=== PATIENT | female | born 1940 | race Caucasian/White ===

== ENCOUNTER 2021-11-30 08:15 | Outpatient (CLI) | payer MEDICARE, OTHER, SELFPAY ==
[2021-11-30 10:22] LABS: Chloride* 97 mmol/L (96-114)
[2021-11-30 10:23] LABS: Potassium* 3.6 mmol/L (3.6-5.1); Sodium* 138 mmol/L (135-149)
[2021-11-30 10:25] LABS: Carbon Dioxide* 33 mmol/L (20-32); Cholesterol* 201 mg/dL (90-199); Creatinine* 1.1 mg/dL (0.5-1.5); Estimated Glomerular Filt Rate 51 ml/min
[2021-11-30 10:26] LABS: Blood Urea Nitrogen* 17 mg/dL (7-30); Calcium* 10.8 mg/dL (8.4-10.6); Glucose* 112 mg/dL (60-115); HDL Cholesterol* 50 mg/dL (>=50); LDL Cholesterol Calculated 130 mg/dL (<100); Triglycerides* 107 mg/dL (40-149)
[2021-11-30 10:42] LABS: Vitamin D 25 Hydroxy* 86 ng/mL (30-80)
== END 2021-11-30 08:16 | disposition home or self-care (01) ==
PROVIDERS: Visit Provider Family Medicine
DX: Z00.00 Encounter for general adult medical examination without abnormal findings (principal); I10 Essential (primary) hypertension; M85.80 Other specified disorders of bone density and structure, unspecified site; E53.9 Vitamin B deficiency, unspecified; F41.8 Other specified anxiety disorders
CPT/HCPCS: 80048; 80061; 82306

== ENCOUNTER 2021-12-06 09:44 | Outpatient (CLI) | payer MEDICARE, OTHER, SELFPAY ==
--- OUTSIDE RECORDS SUMMARY | 2021-12-06 10:29 | XMS_ITS | Encounter Summary ---
:1940 Author Organization [facility] Address [address] [place] [address] Care Team Providers Name Role Phone Elsewhere, Pcp Primary Care Provider Unavailable Encounter Details Date Type Department Care Team Description 09/29/2021 Ancillary Procedure Department of Dermatology Social History Tobacco Use Types Packs/Day Years Used Date Smoking Tobacco: Former Cigarettes 0 0 Smokeless Tobacco: Never Comments: Havent smoked since 1975 Alcohol Use Standard Drinks/Week Comments Yes 1 (1 standard drink = 0.6 oz pure approx imately 1-2 servings of alcohol alcohol) per 1-2 weeks. Alcohol Habits Answer Date Recorded How often do you have a drink 2-4 times a month 05/10/2021 containing alcohol? How many drinks containing alcohol 1 or 2 05/10 do you have on a typical day when you are drinking? How often do you have six or more Never 2021 drinks on one occasion? Comment: approximately 1-2 servings of alcohol per 1-2 weeks. Social Isolation Answer Date Recorded In a typical week, how many times do you More than three edmond es a week 05/10/2021 talk on the phone with family, friends, or neighbors? How often do you get together with friends More than three t imes a week 05/10/2021 or relatives? How often do you attend evangelical or More than 4 times per year 05/10/2021 moravian services? Do you belong to any clubs or No 05/10/2021 organizations such as evangelical groups, unions, fraternal or athletic groups, or school groups? How often do you attend meetings of the Patient refused 05/10/2021 clubs or organizations you belong to? Are you now , , , 05/10/2021 , never or living with a partner? Physical Activity Answer Date Recorded On average, how many days per week do you engage in Patient refused 05/10/2021 moderate to strenuous exercise (like walking fast, running, jogging, dancing, swimming, biking, or other activities that cause a light or heavy sweat)? On average, how many minutes do you engage in exercise 20 mi n 05/10/2021 at this level? Stress Answer Date Recorded Do you feel stress - tense, restless, nervous, or anxious, R ather much 05/10/2021 or unable to sleep at night because your mind is troubled all the time - these days? Financial Resource Strain Answer Date Recorded How hard is it for you to pay for the very basics like Not h juan at all 05/10/2021 food, housing, medical care, and heating? Intimate Partner Violence Answer Date Recorded Within the last year, have you been afraid of your partner o r No 05/10/2021 ex-partner? Within the last year, have you been humiliated or emotionall y No 05/10/2021 abused in other ways by your partner or ex-partner? Within the last year, have you been kicked, hit, slapped, or No 05/10/2021 otherwise physically hurt by your partner or ex-partner? Within the last year, have you been raped or forced to have any No 05/10/2021 kind of sexual activity by your partner or ex-partner? Food Insecurity Answer Date Recorded Within the past 12 months, you worried that your food would Never true 05/10/2021 run out before you got money to buy more. Within the past 12 months, the food you bought just didn't N ever true 05/10/2021 last and you didn't have money to get more. Transportation Needs Answer Date Recorded In the past 12 months, has lack of transportation kept you f rom No 05/10/2021 medical appointments or from getting medications? In the past 12 months, has lack of transportation kept you f rom No 05/10/2021 meetings, work, or getting things needed for daily living? Housing Stability Answer Date Recorded In the last 12 months, was there a time when you were not ab le No 05/10/2021 to pay the mortgage or rent on time? In the last 12 months, how many places have you lived? 1 05/10/2021 In the last 12 months, was there a time when you did not hav e a No 05/10/[address] or slept in a alf (including now)? Education Answer Date Recorded What is the highest level of school you have completed or 12 th grade 09/21/2020 the highest degree you have received? Sex Assigned at Date Recorded Not on file documented as of this encounter Plan of Treatment Upcoming Encounters Date Type Specialty Care Team Description 12/09/2021 Comprehensive Visit Dermatology Radha Wright M.D. [address] [place], [place] [phone] (Wo rk) 12/26/2021 Procedure visit Dermatology Cristi Wright M.D. [address] [place], [place] [phone] (Wo rk) documented as of this encounter Procedures Procedure Name Priority Date/Time Associated Comments Diagnosis DERMATOLOGY IMAGE Routine 09/29/2021 12:00 Result s for this EXAM AM CDT procedure are i n the results section. documented in this encounter Results Neck 519-Dermatology Image Exam (09/29/2021 12:00 AM CDT) Specimen (Source) Anatomical Location Collection Method / Collectio n Time Received Time / Laterality Volume Narrative IIMS - 09/29/2021 4:19 PM CDT This order has been created and auto-finalized to support the import of images acquired without order. The clini radha documentation to support these images can be found on the encounter mackenzie t produced images. Provider Not In System IMG NON RAD IMAGING PROCEDUR ES Performing Organization Address City/State/ZIP Code Phon e Number IIMS IIMS NA documented in this encounter Visit Diagnoses Not on filedocumented in this encounter Additional Health Concerns Assessment Noted Time PHQ-9 Depression Total Score: 5 06/12/2021 6:15 PM CDT documented as of this encounter Care Teams Shield Installer Relationship Specialty Start Date End Date Elsewhere, Pcp PCP - General Internal Medicine 05/10/21 documented as of this encounter
--- OUTSIDE RECORDS SUMMARY | 2021-12-06 10:29 | XMS_ITS | Encounter Summary ---
:1940 Author Organization [facility] Address [address] [place] [address] Care Team Providers Name Role Phone Elsewhere, Pcp Primary Care Provider Unavailable Reason for Referral Outpatient (Routine) - Authorized Specialty Diagnoses / Procedures Referred By Contact Refer red To Contact Dermatology Diagnoses [facility]ignant [facility] 1-4 sites [place] [address] [place] [phone] Referral ID Status Reason Start Date Expiration Date Visits V isits Requested Authorized [id number] Authorized 10/06/2021 10/06/2022 1 1 Encounter Details Date Type Department Care Team Description 10/05/2021 Orders Only Department of Arlen Yap Malignant N eoplasm Of Dermatology in [place] Neck Basal Cell [place], [place] [address] [facility] (Primary Dx) [address] [place] [phone] Social History Tobacco Use Types Packs/Day Years [...] or relatives? How often do you attend lutheran or More than 4 times per year 05/10/2021 yazdanism services? Do you belong to any clubs or No 05/10/2021 organizations such as lutheran groups, unions, fraternal or athletic groups, or [...] place to sleep or slept in a retirement (including now)? Education Answer Date Recorded What is the highest level of school you have completed or 12 th grade 09/21/2020 the highest degree you have received? Sex Assigned at Date Recorded Not on file documented as of this encounter Plan of Treatment Upcoming Encounters Date Type Specialty Care Team Description 12/09/2021 Comprehensive Visit Dermatology Radha Wright M.D. [address], [place] [phone] (Tomas delgado) 12/26/2021 Procedure visit Dermatology Cristi Wright M.D. 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
--- OUTSIDE RECORDS SUMMARY | 2021-12-06 10:29 | XMS_ITS | Encounter Summary ---
:1940 Author Organization [facility] Address [address] [place] [id number] Care Team Providers Name Role Phone Elsewhere, Pcp Primary Care Provider Unavailable Reason for Referral Outpatient (Routine) - Authorized Specialty Diagnoses / Procedures Referred By Contact Refer red To Contact Diagnoses Imbalance Non Orthopedic Danita Prabhakar [facility] Procedures Vestibular rehabilitation therapy PT/OT Jacqueline, Ph.D. [address] [place] [phone] Referral ID Status Reason Start Date Expiration Date Visits V isits Requested Authorized [id number] Authorized 05/10/2021 05/10/2022 1 1 ehavioral Health (Routine) - Closed Specialty Diagnoses / Procedures Referred By Contact Lizzeth amaya To Contact Psychiatry / Diagnoses Tremor Anxiety Vanna [facility] Psychiatry and Danita Sorensen M.D., Psychology Ph.D. [address] [place] [phone] Referral ID Status Reason Start Date Expiration Date Visits Requ ested Visits Authorized [id number] Closed 05/10/2021 05/10/2022 1 1 Scheduling Instructions Schedule with appropriate providers base d on if Psychotherapy or Medication Assessment is answered by the ordering provider. utpatient (Routine) - Authorized Specialty Diagnoses / Procedures Referred By Contact Refer monique To Contact Neurology Danita Prabhakar M.D., [facility] Ph.D. [address] [place] [address] Referral ID Status Reason Start Date Expiration Date Visits V isits Requested Authorized [id number] Authorized 05/10/2021 05/10/2022 1 1 RI/CAT/PET Scan (Routine) - Closed Specialty Diagnoses / Procedures Referred By Contact Refer red To Contact Radiology Diagnoses Tremor Imbalance Non Orthopedic Danita Prabhakar [facility] Procedures MR Brain without and with IV Contrast Jacqueline, Ph.D. [address] [place] [address] Referral ID Status Reason Start Date Expiration Date Visits Requ ested Visits Authorized [id number] Closed 05/10/2021 05/10/2022 1 1 utpatient (Routine) - Authorized Specialty Diagnoses / Procedures Referred By Contact Refer red To Contact Diagnoses Tremor Imbalance Non Orthopedic Danita Prabhakar [facility] Procedures Vestibular balance evaluation Jacqueline, Ph.D. [address] [place] [phone] Referral ID Status Reason Start Date Expiration Date Visits V isits Requested Authorized [id number] Authorized 05/10/2021 05/10/2022 1 1 Reason for Visit Outpatient (Routine) - Closed Specialty Diagnoses / Procedures Referred By Contact Refer red To Contact Neurology Diagnoses Tremor Gisele Curran M.D. [address] [address] Referral ID Status Reason Start Date Expiration Date Visits Requ ested Visits Authorized [id number] Closed 11/17/2020 11/17/2021 1 1 Encounter Details Date Type Department Care Team Description 05/10/2021 Comprehensive Visit Department of [facility], [place] (Primary Dx); Neurology in Danita Roma Sorensen Non O rthopedic; Jacqueline Crook, Ph.D. Anxiety; [place] [address] [facility] Concern Patient Cognition Function [address] [place] [phone] Social History Tobacco Use Types Packs/Day Years Used Date Smoking Tobacco: Former Cigarettes 0 0 Smokeless Tobacco: Never Comments: Havent smoked since 1975 Alcohol Habits Answer Date Recorded How often do you have a drink containing alcohol? 2-4 times a month 05/10/2021 How many drinks containing alcohol do you have on a 1 or 2 05/10/2021 typical day when you are drinking? How often do you have six or more drinks on one Never 05/10/2021 occasion? Comment: Not asked Social Isolation Answer Date Recorded In a typical week, how many times do you More than three edmond es a week 05/10/2021 talk on the phone with family, friends, or neighbors? How often do you get together with friends More than three t imes a week 05/10/2021 or relatives? How often do you attend samaritan or More than 4 times per year 05/10/2021 synagogue services? Do you belong to any clubs or No 05/10/2021 organizations such as samaritan groups, unions, fraternal or athletic groups, or [...] place to sleep or slept in a [place] [facility] (including now)? Education Answer Date Recorded What is the highest level of school you have completed or 12 th grade 09/21/2020 the highest degree you have received? Sex Assigned at Date Recorded Not on file documented as of this encounter Last Filed Vital Signs Vital Sign Reading Time Taken Comments Blood Pressure - - Pulse - - Temperature - - Respiratory Rate - - Oxygen Saturation - - Inhaled Oxygen Concentration - - Weight 62.3 kg (137 lb 5.6 oz) 05/10/2021 12:50 PM CDT Height 158.3 cm (5' 2.32) 05/10/2021 12:50 PM CDT Body Mass Index 24.86 05/10/2021 12:50 PM CDT documented in this encounter Consult Notes Valerie-Danita Rhodes M.D., Ph.D. - 05/10/2021 1:00 PM CDT SUBJECTIVE CHIEF COMPLAINT / REASON FOR VISIT Darcy Colon is a 80 y.o. female who presents for evaluation of tremor. HISTORY OF PRESENT ILLNESS Ms. Darcy Colon is a 80 year old women with as history hypertension, anxiety, depression, migraines, history of B12 deficiency, breast cancer s/p lumpectomy and radiation, squamous cell carcinoma, basal cell carcinoma, open-angle glaucoma who presents for evaluation of tremor. She is referred by Dr. Gisele Curran for tremor and balance difficulties. Today she describes multiple neurologic concerns that we discussed in detail. Specifically tremor, gait instability and imbalance, and cognitive concerns. Tremor: She first noticed a tremor approximately two years ago in her right>left hand that is most apparent when doing things such as putting on mascara, drinking out of a cup, or making a pot of coffee. She is able to compensate for this tremor using her left hand to steady herself. The tremor has slowly progressed. No rest tremor. No tremor of the voice, jaw, or feet. The tremor is worse when she is tired and during stressful situation. She has not tried any medication for these symptoms. Gait instability: She had an episode approximately three years ago when she fell on an uneven sidewalk in [place] where she was diagnosed with a concussion as well as left facial fractures. Approximately several months after this fall, she describes an imbalance and uncertainty while walking that has progressively gotten worse over time. She shares that immediately upon standing she feels foggy and unsteady though without lightheadedness. She fears that she may fall, though has not fallen since the episode threeyears ago. She also describes episodes where she is unable to walk straight and infrequently veers to one side or the other while walking. She frequently holds onto the objects or her 's arm while walking due to the concern of falling though does not use formal gait aid. She denies inward sensation of movement. No vertigo. The symptoms are not worse while driving in a car with or with complex visual stimuli. No positional component. Cognition: She describes several years of slowly progressive cognitive concerns. For example, she occasionally forgets the year she was born, forgets words, forgets her zip code, or where she parked her car. She also describes episodes of going to find something in the pantry and forgetting what she came for. Despite these symptoms, she remains functionally active in caring for herself and others. Specifically,she describes being able to drive without episodes of getting lost, though she has not driven frequently over the the last three months due to being in [place] and concern for episodes of diplopia. 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 She remains active with her friends and family, sharing that she recently cared for her great grandson without difficulty. She is able to complete cooking, cleaning and other household tasks as well as self-care without difficulty. She has left the oven on approximately 3 times in last year. She manages her own medications. She is worried about these cognitive concerns and the embarrassment of forgetting with friendsand family, though friends nor family have noticed a change in her cognition. In addition to the symptoms above, we briefly discussed three episodes of diplopia that she has had most recently while in [place] over the last several months. She is uncertain if these episodes are binocular or monocular and she believes that she saw shadow images and felt that ???her eyes went crossed. During the last episode she closed her eyes for approximately 3 minutes with resolution of her symptoms. She previously seen another provider for diplopia who was reassured. Furthermore, she has a longstanding history of anxiety and describes herself as a worrier. She shares that her mood is down and that she occasionally she feels very uncertain of herself. She occasionally has a shooting sensation in her left calf that extends into her thigh. No other neurologic symptoms, no headache, numbness, paresthesias. No orthostasis, no constipation, no anosmia, no dream enactment behavior. Intermittent light snoring though no clear apnea. Past Medical History: Diagnosis Date ??? Cancer Breast Personal History ??? Concussion Loss Of Consciousness Unspecified Duration Initial ??? Depressive Disorder ??? Glaucoma ??? Malignant Neoplasm Of Skin Basal Cell Carcinoma ??? Malignant Neoplasm Of Skin Squamous Cell Carcinoma ??? Migraine Headache Past Surgical History: Procedure Laterality Date ??? BREAST BIOPSY ??? BREAST LUMPECTOMY ??? HYSTERECTOMY 2009 ? JOINT REPLACEMENT 2018 ??? MOHS SURGERY ??? TONSILLECTOMY 1943 Family History Problem Relation Age of Onset ??? Breast cancer Sister ??? Prostate cancer Brother ??? Dementia Father at 74 ??? Depression Sister Social Hx: Social: Former smoker, 22 pack years (quit age 41), 1-2 drinks a year. , retired with three adult children. REVIEW OF SYSTEMS: Constitutional: Positive for fatigue. Eyes: Positive for double vision. Gastrointestinal: Positive for heartburn. Musculoskeletal: Positive for arthralgias, back pain and pain or stiffness in the joints. Neurological: Positive for light-headedness, numbness or shooting pain in hands, arms, legs, or feetand weakness in arms or legs. Psychiatric/Behavioral: Positive for feeling down, depressed, or hopeless over past two weeks, not being able to stop or control worrying over past two weeks and feeling nervous, anxious, or on edge inpast two weeks. The following systems were negative: Skin, ENT, CV, Respiratory, , Hematologic OBJECTIVE Short test of mental status ([place]) score: 27/38; Intermittently tearful during the exam and appeared to be flustered easily during attention tasks. Her at bedside was very encouraging throughout, rubbing her back and holding her hand and leg throughout the task. Orientation: 09/02 Attention: 07/02 Registration: 05/30 (2 trials) Calculation: 03/01 Similarities: 04/28 Construction: 04/29 Knowledge: 04/29 (365 for weeks in a year) Recall: 04/01 (recalled Mr. Garcia with cuing) PHYSICAL EXAM For details of the neurologic examination, please see the neurologic examination form. Briefly, exam demonstrated a mild antalgic gait though able to complete 6-7 steps of tandem successfully. Cranial nerve exam demonstrated a mild exophoria as well as positive head impulse test with leftward movement. Mildly hypometric horizontal saccades. Normal vertical saccades. No nystagmus. VOR and VOR suppression were intact. Full strength and tone in upper and lower extremities. No evidence of parkinsonism. Sensation is intact to pinprick and proprioception throughout. Mild tremulousness of the right hand with movement not appreciated on the left. Mild oscillations in Archimedes spiral. No resting tremor. Reflexes are symmetric and brisk throughout. Toes are flexor flexor. Qsoomu-zr-kmed and wqsb-jq-efka are intact bilaterally. AMRs are large, accurate in the fingers, hands and feet. ASSESSMENT / PLAN Ms. Colon is a 80-year-old woman who presents for evaluation of tremor and gait instability. Duringher visit, she shared her fear that she may have Alzheimer's. We discussed each of her concerns in detail with detailed plan below. Mild essential tremor Her neurologic exam and symptoms are most consistent with a mild essential tremor. At this time she is not interested in trialing a medication though propranolol could be reasonable choice if the symptoms worsen or become more bothersome in the future. I am hopeful that the tremor might also improve with improvement in her symptoms of anxiety. Will also obtain a TSH for further evaluation. Query of peripheral vestibular neuropathy Fear of falling Subjective dysequilibrium Positive head impulse testing With regards to her sensation of disequilibrium and balance, her ocular motor exam is reassuringly normal. The only notable finding is the positive head impulse test with movement to the left. Will further investigate with an MRI of the brain as well as formal vestibular evaluation. I will be in touchwith the results of these investigations. It is possible that the positive head impulse test may from an old vestibular neuropathy in the setting of the fall with prior left-sided trauma or may be resulting from a prior vestibular neuritis. I do wonder whether her fear of falling may be also contributing to a sense of subjective disequilibrium, and while pursuing the investigations as above would encourage further treatment of the anxiety in order to best optimize her functional status. Cognitive Inefficiencies Though she describes difficulty with word finding and remembering dates and locations, she is otherwise functionally independently in her activities of daily living. I do wonder whether some of the symptoms that she may be having may be further augmented by worry and anxiety as her functional status would not be suggestive of a dementia. Further discussions with she and her at bedside, they agree that potentially anxiety may have contributed to performance on the [place] during her visit today. Anxiety I think it is likely that her current anxiety is worsening all the concern as above, tremor, gait instability, and cognitive deficiencies closely that targeting anxiety likely lead to some improvement in the symptoms. I offered a referral to Psychiatry here at [facility] and she and her would like to be evaluated. I will follow-up with her in approximately six months to re-evaluate the tremor, gait, and cognitionafter hopeful improvement in the symptoms of anxiety. This plan was discussed with the patient who is in agreement. All questions were answered to the best of my ability. She has my card and knows that she can contact me by phone or through the portal with any questions or concerns. This plan was discussed with consulting physician Dr. Byrne. Danita Prabhakar M.D., Ph.D. Neurology PGY-2 Kraig Byrne M.D. - 05/10/2021 1:00 PM CDT SUBJECTIVE This is a supervisory note. I have reviewed the history and physical examination findings of the accompanying resident note from today's date. I have met with Darcy Colon. I have discussed the patient's case with the resident colleague caring for the patient. I agree with their clinical notes dated 05/10/21, unless otherwise noted below. The patient presents for neurological consultation regarding a few years of a constellation of symptoms that include subjective disequilibrium, right arm tremor, and additionally cognitive concerns. OBJECTIVE EXAM: Catch-up saccade seen with head impulse tests from the left. Rest as per resident note ASSESSMENT / PLAN #1 Subjective disequilibrium #2 Cognitive concerns #3 Probable mild essential tremor #4 Anxiety IMPRESSION/RECOMMENDATIONS: Overall, the patient's neurological exam is reassuring, but she does have 1 focal feature in the setting of her disequilibrium that likely warrants some further investigation, although suspicion for a sinister etiology is low. That is the catch-up saccade found on her head impulse test from the left. It would be reasonable to do an MRI to look for any vestibular organ lesions and formal vestibular/balance assessment followed by vestibular rehab assessment. With regard to her other symptoms of cognitive concerns and her fear of falling, as well as her tremulousness, we spent a lot of time talking about the role that anxiety can play at increasing the magnitude of these symptoms. We provided some reassurance that her clinical picture of someone who remains independent, manages finances and medications without significant air, and takes care of small children, for example is reassuring against any current evidence of a significant neurodegenerative process at this time. Of course, cannot rule out early neurodegenerative disease, but the presentation overall seems more reassuring. We also talked about how anxiety can play a role in subjective imbalance as well as worsening tremor. Her essential tremor does not need any treatment at this time as it is so mild. If it worsens, propranolol would be a potential consideration. First and foremost, we recommended that the patient consider seeing an expert for alternative or more aggressive treatments for her anxiety given how much it plays a role in her other symptoms including likely causing worsening cognitive inefficiencies that could explain some of her abnormalities on her mental status testing today. All questions were answered, and the patient expressed understanding. Rest as per resident note. will continue to follow. documented in this encounter Plan of Treatment Upcoming Encounters Date Type Specialty Care Team Description 12/09/2021 Comprehensive Visit Dermatology Radha Wright M.D. [address] [place], [place] [phone] (Tomas delgado) 12/26/2021 Procedure visit Dermatology Cristi Wright M.D. [address] [place], [place] [phone] (Tomas delgado) Scheduled Orders Name Type Priority Associated Diagnoses Order S chedule Audiology evaluation Audiology Routine Imbalance Non Orthop edic Expected: 05/10/2021 (Approximate), Expires: 2022 Scheduled Referrals Name Type Priority Associated Order Schedule Diagnoses Neurology office Outpatient Referral Routine Expe cted: visit (clinic) 11/10/2021 (Approximate), Expires: 08/10/2022 Psychiatry and Outpatient Referral Routine Tremor Expected: Psychology - Anxiety Anxiety 022 consult (clinic) (Approximat e), Expires: 08/10/2022 documented as of this encounter Results MR Brain without and with IV Contrast (06/13/2021 1:44 PM CDT) Anatomical Region Laterality Modality Head, Brain, Neuroradiology RST LOS, Neuroradiology ARZ N/A Magnetic Resonance LOS, Neuroradiology FLA LOS Specimen (Source) Anatomical Collection Method Collection Time Re ceived Time Location / / Volume Laterality 06/13/2021 2:07 PM CDT Impressions 06/13/2021 3:08 PM CDT AICA branch loop over the course of the left cranial nerve VII/VIII complex within its cisternal course. Clinical significance of this finding is indeterminate. No abnormal enhancement or thickening of the cranial nerves. No cer ebellopontine cistern mass or IAC lesions. Narrative 06/13/2021 3:08 PM CDT EXAM: MR BRAIN WITHOUT AND WITH IV CONTRAST COMPARISON: CT head 04/01/2017 FINDINGS: A branch off the left anterior -inferior cerebellar artery loops over the left cranial nerve VII/VIII complex medial to the por us acusticus (series 8, image [id number]) without evident neurovascular compression, a common find ing in a symptomatically individuals. No abnormal enhancement of the nerve complex. No cer ebellopontine cistern or internal auditory canal masses. Normal MRI appearance of the otic capsul e and inner ear structures bilaterally. Normal course of the bilateral trigeminal and right cranial n erve VII/VIII complex without evidence of extrinsic compression. No evident focal brainstem infarct. No abnormal parenchymal, leptomeningeal or dural enhancement. Scattered mild T2/flair hyperintensities within the hemispheric white matter, consistent with mild chronic ischemic small vessel disease. No evident cortical infa rction. Inspissated mucosal secretions within the right posterior ethmoid air cells. Degenerativ e changes of the TMJs. Procedure Note Baljinder Jovel M.D. - 06/13/2021Format ting of this note might be different from the original. EXAM: MR BRAIN WITHOUT AND WITH IV CONTR AST COMPARISON: CT head 04/01/2017 FINDINGS: A branch off the left anterior -inferior cerebellar artery loops over the left cranial nerve VII/VIII complex medial to the por us acusticus (series 8, image [id number]) without evident neurovascular compression, a common find ing in a symptomatically individuals. No abnormal enhancement of the nerve complex. No cer ebellopontine cistern or internal auditory canal masses. Normal MRI appearance of the otic capsul e and inner ear structures bilaterally. Normal course of the bilateral trigeminal and right cranial n erve VII/VIII complex without evidence of extrinsic compression. No evident focal brainstem infarct. No abnormal parenchymal, leptomeningeal or dural enhancement. Scattered mild T2/flair hyperintensities within the hemispheric white matter, consistent with mild chronic ischemic small vessel disease. No evident cortical infa rction. Inspissated mucosal secretions within the right posterior ethmoid air cells. Degenerativ e changes of the TMJs. IMPRESSION: AICA branch loop over the course of the left cranial nerve VII/VIII complex within its cisternal course. Clinical significance of this finding is indeterminate. No abnormal enhancement or thickening of the cranial nerves. No cer ebellopontine cistern mass or IAC lesions. Danita Prabhakar M.D., Ph.D. IMG MRI PROCEDURES Thyroid Function [place] (05/10/2021 3:30 PM CDT) P athologist Signature TSH, Sensitive 2.3 0.3 - 4.2 05/10/2021 DTL mIU/L 4:42 PM CDT Specimen Anatomical Collection Method Collection Time Receive d Time (Source) Location / / Volume Laterality Blood (Blood, 05/10/2021 3:30 PM 05/11/19 4:14 Venous) CDT PM CDT Danita Prabhakar M.D., Ph.D. LAB BLOOD ADD-ON Performing Organization Address City/State/ZIP Code Phon e Number [facility] - [address] [place], [place] [address] [facility] [place] [address] Laboratories-[facility] [address] documented in this encounter Visit Diagnoses Diagnosis Tremor - Primary Imbalance Non Orthopedic Anxiety Concern Patient Cognition Function Tremor Imbalance Non Orthopedic documented in this encounter Care Teams Insurance Billing Clerk Relationship Specialty Start Date End Date Elsewhere, Pcp PCP - General Internal Medicine 05/10/21 documented as of this encounter
--- OUTSIDE RECORDS SUMMARY | 2021-12-06 10:29 | XMS_ITS | Encounter Summary ---
:1940 Author Organization [facility] Address [address] [place] [address] Care Team Providers Name Role Phone Unavailable Primary Care Provider Unavailable Reason for Visit Reason Comments Pre-visit Intake Encounter Details Date Type Department Care Team Description 05/05/2021 Clinical Communication Visit Review in Pr e-visit Intake [place], [place] [address] [place], [place] [id number] Social History Tobacco Use Types Packs/Day Years [...] or relatives? How often do you attend shinto or More than 4 times per year 05/10/2021 rastafari services? Do you belong to any clubs or No 05/10/2021 organizations such as shinto groups, unions, fraternal or athletic groups, or [...] place to sleep or slept in a fdc (including now)? Education Answer Date Recorded What is the highest level of school you have completed or 12 th grade 09/21/2020 the highest degree you have received? Sex Assigned at Date Recorded Not on file documented as of this encounter Plan of Treatment Upcoming Encounters Date Type Specialty Care Team Description 12/09/2021 Comprehensive Visit Dermatology Radha Wright M.D. [address] [place], [place] [phone] (Wo rk) 12/26/2021 Procedure visit Dermatology Cristi Wright M.D. [address] [place], [place] [phone] (Wo rk) documented as of this encounter Visit Diagnoses Not on filedocumented in this encounter
--- OUTSIDE RECORDS SUMMARY | 2021-12-06 10:29 | XMS_ITS | Encounter Summary ---
:1940 Author Organization [facility] Address [address] [place] [address] Care Team Providers Name Role Phone Elsewhere, Pcp Primary Care Provider Unavailable Reason for Referral MRI/CAT/PET Scan (Routine) - Closed Specialty Diagnoses / Procedures Referred By Contact Refer red To Contact Radiology Diagnoses Tremor Imbalance Non Orthopedic Danita Prabhakar, [facility] Procedures MR Brain without and with IV Contrast Jacqueline, Ph.D. [address] [place] [address] Referral ID Status Reason Start Date Expiration Date Visits Requ ested Visits Authorized [id number] Closed 05/10/2021 05/10/2022 1 1 Reason for Visit MRI/CAT/PET Scan (Routine) - Closed Specialty Diagnoses / Procedures Referred By Contact Refer red To Contact Radiology Diagnoses Tremor Imbalance Non Orthopedic Danita Prabhakar [facility] Procedures MR Brain without and with IV Contrast Jacqueline, Ph.D. [address] [place] [address] Referral ID Status Reason Start Date Expiration Date Visits Requ ested Visits Authorized [id number] Closed 05/10/2021 05/10/2022 1 1 Encounter Details Date Type Department Care Team Description 06/13/2021 Hospital Encounter Department of Robinson Prabhakar; Radiology, Gurdeep Sorensen M.D., Im balance Non [facility], in Ph.D. [place], [address] [place], [place] 200 [facility] [address] [place], [place] [phone] (Work) [phone] Social History Tobacco Use Types Packs/Day Years [...] or relatives? How often do you attend christian or More than 4 times per year 05/10/2021 sabianism services? Do you belong to any clubs or No 05/10/2021 organizations such as christian groups, unions, fraternal or athletic groups, or [...] - Inhaled Oxygen Concentration - - Weight 59.4 kg (131 lb) 06/13/2021 12:30 PM CDT Height 152.4 cm (5') 06/13/2021 12:30 PM CDT Body Mass Index 25.58 06/13/2021 12:30 PM CDT documented in this encounter Medications at Time of Discharge Medication Sig Dispensed Refills Start Date End Date buPROPion (WELLBUTRIN SR) daily. 0 02/09/2017 150 mg 12 hr tablet cholecalciferol, vitamin D3, Take 50 mcg by 0 25 mcg (1,000 Unit) tablet mouth daily. cyanocobalamin, vitamin Daily 0 06/18/2020 B-12, 1,000 mcg capsule hydroCHLOROthiazide as needed. 0 09/07/2020 (HYDRODIURIL) 25 mg tablet ibuprofen (ADVIL,MOTRIN) 200 Take 400 mg by 0 03/2019 mg tablet mouth 2 (two) times a day. latanoprost (XALATAN) 0.005 Administer 1 drop 0 0 06/04/2021 % ophthalmic solution into both eyes at bedtime. omeprazole (PriLOSEC) 20 mg Bedtime 0 06/19/[address] capsule timolol (TIMOPTIC) 0.5 % Administer 1 drop 0 12/27 ophthalmic solution into the right eye daily. documented as of this encounter Plan of Treatment Upcoming Encounters Date Type Specialty Care Team Description 12/09/2021 Comprehensive Visit Dermatology Radha Wright M.D. [address] [place], [place] [phone] (Tomas delgado) 12/26/2021 Procedure visit Dermatology Cristi Wright M.D. [address] [place], [place] [phone] (Tomas delgado) documented as of this encounter Procedures Procedure Name Priority Date/Time Associated Comments Diagnosis MR BRAIN WITHOUT RAD - Routine 06/13/2021 1:44 Tremor Results for this AND WITH IV (most inpatients PM CDT Imbalance Non procedure are in CONTRAST and all Orthopedic the results outpatients) section. documented in this encounter Results MR Brain without and with IV Contrast (06/13/2021 1:44 PM CDT) Anatomical Region Laterality Modality Head, Brain, Neuroradiology RST LOS, Neuroradiology DESIREE N/A Magnetic Resonance LOS, Neuroradiology FLA [facility] Specimen (Source) Anatomical Collection Method Collection Time [...] Danita Prabhakar M.D., Ph.D. IMG MRI PROCEDURES documented in this encounter Visit Diagnoses Diagnosis Tremor Imbalance Non Orthopedic documented in this encounter Administered Medications Inactive Administered Medications - up to 3 most recent administrations Medication Order MAR Action Action Date Dose Rate Site gadobutrol injection 0.01-30 mL Given 06/13/2021 1:36 PM CDT 6 m L (GADAVIST) 0.01-30 mL, intravenous, Once in imaging, contrast, Starting on 06/13/21 at 1230, For 1 dose, Imaging Protocol Orders, Dose per Radiant Medication Guidelines Intrathecal doses greater than 0.25 mL not recommended. documented in this encounter Additional Health Concerns Assessment Noted Time PHQ-9 Depression Total Score: 5 06/12/2021 6:15 PM CDT documented as of this encounter Care Teams Heavy Forger Helper Relationship Specialty Start Date End Date Elsewhere, Pcp PCP - General Internal Medicine 05/10/21 documented as of this encounter
--- OUTSIDE RECORDS SUMMARY | 2021-12-06 10:29 | XMS_ITS | Encounter Summary ---
:1940 Author Organization [facility] Address [address] [place] [address] Care Team Providers Name Role Phone Elsewhere, Pcp Primary Care Provider Unavailable Reason for Visit Appointment Request (Routine) - Closed Specialty Diagnoses / Procedures Referred By Contact Refer red To Contact Dermatology Diagnoses Lentigo Abnormality Pigment Referral ID Status Reason Start Date Expiration Date Visits Requ ested Visits Authorized [id number] Closed 09/26/2021 09/26/2022 1 1 Encounter Details Date Type Department Care Team Description 09/29/2021 Comprehensive Visit Department of Charity Yap is Actinic (Primary Dx); [facility]at[facility] [place], [place] P.Lilian, M.S. Nevi Multiple; [address] Angioma Chiang; [place], [place] Keratosis Mic orrheic; [phone] Screening Examination Skin Cancer; [phone] Lentigo; (Work) Tumor Skin Uncertain Behavior Social History Tobacco Use Types Packs/Day Years [...] or relatives? How often do you attend faith or More than 4 times per year 05/10/2021 orthodoxy services? Do you belong to any clubs or No 05/10/2021 organizations such as faith groups, unions, [place] or athletic groups, or school groups? How [...] place to sleep or slept in a nursing home (including now)? Education Answer Date Recorded What is the highest level of school you have completed or 12 th grade 09/21/2020 the highest degree you have received? Sex Assigned at Date Recorded Not on file documented as of this encounter Consult Notes Arlen Yap P.A.-C., M.S. - 09/29/2021 2:40 PM CDT REFERRED BY No ref. provider found Supervised by: Dr. Maria G Sosa ([phone]) Supervising access consultant, Dr. Sosa, was immediately available but consultation was not required. CHIEF COMPLAINT/REASON FOR VISIT History of nonmelanoma skin cancer HISTORY OF PRESENT ILLNESS Ms. Darcy Colon is a pleasant 81 y.o. female who presents for a full skin cancer screening examination. 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 Today, she reports a lesion on the left side of her neck that been present for about 1.5 years. It has grown over time and is somewhat itchy and painful. No other cutaneous concners. She reports that she tries to be diligent with photoprotection. No Known Allergies PAST DERMATOLOGIC HISTORY Nonmelanoma skin cancer FAMILY DERMATOLOGIC HISTORY Negative for skin cancer PHYSICAL EXAM General: Awake, alert, in no acute distress, and with appropriate affect. Eyes: No scleral injection or icterus. No eyelid abnormalities. Lymph: No lower extremity edema. Skin: I have examined the scalp, face, neck, chest, abdomen, back, buttock, bilateral upper extremities, and bilateral lower extremities. Genital exam declined. Boston skin type II. Moderate dermatoheliosis. Involving the upper back x3, left conchal bowl x1, right eyebrow x1, and right harrell x3 are pink papules with gritty scale, consistent with actinic keratosis. Involving the left lateral neck is a 0.9 x 2.0 cm pink plaque with scattered crust. On the trunk and extremities are red, dome-shapedpapules consistent with chiang angiomas. Scattered on the trunk are multiple pink to brown waxy, stuck on appearing papules, consistent with seborrheic keratoses. On sun exposed areas are scattered light brown macules. On the back, trunk, and extremities are multiple skin colored to dark brown maculesand papules with reassuring features on dermoscopy, consistent with benign nevi. IMPRESSION/REPORT/PLAN #1 Skin cancer screening examination #2 Dermatoheliosis #3 History of nonmelanoma skin cancer Sun protection and sun avoidance were reviewed with the patient. Educational materials were providedregarding skin self-examination, the warning signs and symptoms of skin cancer, and the proper use of sunscreens. I would recommend a full skin cancer screening examination with an appropriately trained clinician every year. #4 Actinic keratoses CONSENT Discussed the risks, benefits, alternatives, and the necessity of other members of the healthcare team participating in the procedure. All questions answered and consent given. PROCEDURE INFORMATION Given the precancerous nature of this lesion(s), treatment is medically indicated. After discussion of the risks, benefits and alternatives to treatment with cryotherapy, informed consent was obtained.We treated a total of 8 lesion(s) with two 20-second freeze-thaw cycles of liquid nitrogen cryotherapy. The patient tolerated the procedure well. Aftercare instructions were provided in written and verbal form to the patient. Should any of these lesions recur, the patient should return for biopsy or further evaluation. #5 Tumor skin uncertain behavior, left lateral neck, basal cell carcinoma versus squamous cell carcinoma CONSENT Discussed the risks, benefits, alternatives, and the necessity of other members of the healthcare team participating in the procedure. All questions answered and consent given. UNIVERSAL PROTOCOL Procedural pause conducted to verify: correct patient identity, procedure to be performed, and as applicable, correct side and site, correct patient position, and availability of implants, special equipment, or special requirements. PROCEDURE INFORMATION Partial shave biopsy. We explained the potential diagnosis and recommended that we obtain a biopsy. The risks and benefitsof the procedure were discussed, and the patient consented to these procedures. Using 1% lidocaine with epinephrine for local anesthesia, a shave biopsy was obtained from the left lateral neck. Biopsy submitted to Dermatopathology for H&E. Special stains will be performed as indicated. The bleeding was well controlled with application of aluminum chloride. Dressing was applied, and wound care instructions were explained. Biopsy results and any further recommendations will be communicated to the patient by letter. Patient given pamphlet [id number]. #6 Chiang Angiomas #7 Seborrheic Keratoses #8 Solar Lentigines The benign nature of the skin lesion(s) was discussed with the patient. No treatment is required. I recommend continued observation. Should symptoms or changes develop related to this condition, I would recommend a return visit for reassessment. #9 Multiple Nevi The ABCDE criteria for melanoma was reviewed with the patient. None of the patient's nevi reach the clinical threshold for biopsy. I recommend continued sun protection, self-skin examinations, and observation. Should any of the patient's nevi change in size, color, texture, or shape or develop symptoms such as itching or bleeding, I recommend an immediate return visit for reassessment. PATIENT EDUCATION Ready to learn. No apparent learning barriers were identified. Learning preferences include listening. Explained diagnosis and treatment plan; patient/guardian of patient expressed understanding of thecontent. documented in this encounter Plan of Treatment Upcoming Encounters Date Type Specialty Care Team Description 12/09/2021 Comprehensive Visit Dermatology Radha Wright M.D. [address] [place], [place] [phone] (Wo rk) 12/26/2021 Procedure visit Dermatology Cristi Wright M.D. [address] [place], [place] [phone] (Wo rk) documented as of this encounter Procedures Procedure Name Priority Date/Time Associated Diagnosis Comme [facility] DERMATOPATHOLOGY Routine 09/29/2021 3:00 PM Resul ts for this CDT procedure are i n the results section. documented in this encounter Results Dermatopathology (09/29/2021 3:00 PM CDT) Component Value Ref Test Analysis Performed At [facility] Range Method Time Signature 10/05/2021 [facility] 3:10 PM CDT Participated in Ruth 10/05/2021 [facility] the Interpretation Jacqueline Brizuela 3:10 PM CDT -Pathology Resident Report Ryleeraul Salas 10/05/2021 [facility] electronically Jacqueline Miller 3:10 PM CDT signed by Gross Description Received in formalin labeled with the patient's n dave, 10/05/2021 [facility] medical record number, and left lateral neck is a 1.4 x 3:10 PM CDT 1.0 x 0.1 cm pale holt, previously inked blue skin shave biopsy. ??Diffusely involving the skin surface is a holt, lightly pigmented, slightly raised, bosselated, slightly firm lesion with ill-defined borders. ??The specimen is trisected and submitted entirely in cassette A1. ??Grossed by CARLOS ALBERTO. Interpretation FINAL DIAGNOSIS 10/05/2021 [facility] A. 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 Arlen Yap P.A.-C., M.S. LAB PATH DERM ORDERABLE S Performing Organization Address City/State/ZIP Code Phon e Number [facility] - [address] [place], [place] [address] [facility] [place] [address] Laboratories-[facility] [address] documented in this encounter Visit Diagnoses Diagnosis Keratosis Actinic - Primary Dermatoheliosis Nevi Multiple Angioma Chiang Keratosis Seborrheic Screening Examination Skin Cancer Lentigo Tumor Skin Uncertain Behavior documented in this encounter Additional Health Concerns Assessment Noted Time PHQ-9 Depression Total Score: 5 06/12/2021 6:15 PM CDT documented as of this encounter Care Teams Chief Guard Relationship Specialty Start Date End Date Elsewhere, Pcp PCP - General Internal Medicine 05/10/21 documented as of this encounter
--- OUTSIDE RECORDS SUMMARY | 2021-12-06 10:29 | XMS_ITS | Encounter Summary ---
:1940 Author Organization [facility] Address [address] [place] [address] Care Team Providers Name Role Phone Elsewhere, Pcp Primary Care Provider Unavailable Encounter Details Date Type Department Care Team Description 05/10/2021 Hospital Encounter Department of [place], Tremor Laboratory Medicine Danita Sorensen M.D., and PathologyArnold Ph.D. [facility], in [address] [place] [address] [place], [place] [phone] (Wo rk) [phone] Social History Tobacco Use Types Packs/Day Years [...] or relatives? How often do you attend taoism or More than 4 times per year 05/10/2021 roman catholic services? Do you belong to any clubs or No 05/10/2021 organizations such as taoism groups, unions, fraternal or athletic groups, or [...] place to sleep or slept in a usp (including now)? Education Answer Date Recorded What is the highest level of school you have completed or 12 th grade 09/21/2020 the highest degree you have received? Sex Assigned at Date Recorded Not on file documented as of this encounter Medications at Time of Discharge Medication Sig Dispensed Refills Start Date End Date buPROPion (WELLBUTRIN SR) daily. 0 02/09/2017 150 mg 12 hr tablet cholecalciferol, vitamin Take 50 mcg by 0 D3, 25 mcg (1,000 Unit) mouth daily. tablet cyanocobalamin, vitamin Daily 0 06/18/2020 B-12, 1,000 mcg capsule hydroCHLOROthiazide as needed. 0 09/07/2020 (HYDRODIURIL) 25 mg tablet ibuprofen (ADVIL,MOTRIN) Take 400 mg by 0 020 200 mg tablet mouth 2 (two) times a day. omeprazole (PriLOSEC) 20 mg Bedtime 0 06/19/[address] capsule timolol (TIMOPTIC) 0.5 % Administer 1 drop 0 12/27 ophthalmic solution into the right eye daily. calcium carbonate/vitamin Take 1 tablet by 0 08/2606/13/2021 D3 (CALCIUM 600 + D,3, mouth 2 (two) ORAL) times a day. documented as of this encounter Plan of Treatment Upcoming Encounters Date Type Specialty Care Team Description 12/09/2021 Comprehensive Visit Dermatology Radha Wright M.D. [address] [place], [place] [phone] (Tomas delgado) 12/26/2021 Procedure visit Dermatology Cristi Wright M.D. [address] [place], [place] [phone] (Tomas delgado) documented as of this encounter Procedures Procedure Name Priority Date/Time Associated Diagnosis Comme nts THYROID FUNCTION Routine 05/10/2021 3:30 PM Tremor Resul ts for this CASCADE, S CDT procedure are i n the results section. documented in this encounter Results Thyroid Function [place] (05/10/2021 3:30 PM CDT) P athologist Signature TSH, Sensitive 2.3 0.3 - 4.2 05/10/2021 DTL mIU/L 4:42 PM CDT Specimen Anatomical Collection Method Collection Time Receive d Time (Source) Location / / Volume Laterality Blood (Blood, 05/10/2021 3:30 PM 05/11/19 4:14 Venous) CDT PM CDT Danita Prabhakar M.D., Ph.D. LAB BLOOD ADD-ON Performing Organization Address City/State/ZIP Code Phon e Number [facility] - [address] [place], [place] [address] [facility] [place] [address] Laboratories-[facility] [address] documented in this encounter Visit Diagnoses Diagnosis Tremor documented in this encounter Care Teams It Applications Developer Relationship Specialty Start Date End Date Elsewhere, Pcp PCP - General Internal Medicine 05/10/21 documented as of this encounter
--- OUTSIDE RECORDS SUMMARY | 2021-12-06 10:29 | XMS_ITS | Encounter Summary ---
:1940 Author Organization [facility] Address [address] [place] [address] Care Team Providers Name Role Phone Elsewhere, Pcp Primary Care Provider Unavailable Reason for Visit Reason Comments Pre-visit Intake Encounter Details Date Type Department Care Team Description 09/28/2021 Clinical Communication Visit Review in Pr e-visit Intake [place], [place] [address] [place], [place] [address] Social History Tobacco Use Types Packs/Day Years [...] or relatives? How often do you attend pentecostalism or More than 4 times per year 05/10/2021 amish services? Do you belong to any clubs or No 05/10/2021 organizations such as pentecostalism groups, unions, fraternal or athletic groups, or [...] place to sleep or slept in a half-way (including now)? Education Answer Date Recorded What is the highest level of school you have completed or 12 th grade 09/21/2020 the highest degree you have received? Sex Assigned at Date Recorded Not on file documented as of this encounter Miscellaneous Notes Telephone Encounter - Donna Lazo - 09/28/2021 10:51 AM CDT ESTEBAN DONE 09/28/21 JAR documented in this encounter Plan of Treatment Upcoming Encounters Date Type Specialty Care Team Description 12/09/2021 Comprehensive Visit Dermatology Radha Wright M.D. [address] [place], [place] [phone] (Wo rk) 12/26/2021 Procedure visit Dermatology Cristi Wright M.D. [address] [place], [place] [phone] (Wo rk) documented as of this encounter Visit Diagnoses Not on filedocumented in this encounter Additional Health Concerns Assessment Noted Time PHQ-9 Depression Total Score: 5 06/12/2021 6:15 PM CDT documented as of this encounter Care Teams Leave Manager Relationship Specialty Start Date End Date Elsewhere, Pcp PCP - General Internal Medicine 05/10/21 documented as of this encounter
--- OUTSIDE RECORDS SUMMARY | 2021-12-06 10:29 | XMS_ITS | Clinical Summary ---
:1940 Author Organization [facility] Address [address] [place] [address] Care Team Providers Name Role Phone Elsewhere, Pcp Primary Care Provider Unavailable Source Comments Patient records contain information from all sites at [facility]. For routine questions regarding patient records, call [phone] during business hours, M-F 8:00 AM - 5:00 PM Central Time. Record requests for emergency care only can be directed to [phone] at any time.[facility] Allergies No known active allergies Medications Medication Sig Dispensed Refills Start Date End Date Status buPROPion (WELLBUTRIN SR) daily. 0 02/09/2017 Active 150 mg 12 hr tablet timolol (TIMOPTIC) 0.5 % Administer 1 0 01/05/2018 Active ophthalmic solution drop into the right eye daily. cholecalciferol, vitamin Take 50 mcg by 0 Active D3, 25 mcg (1,000 Unit) mouth daily. tablet ibuprofen (ADVIL,MOTRIN) Take 400 mg by 0 07/29/2019 Active 200 mg tablet mouth 2 (two) times a day. cyanocobalamin, vitamin Daily 0 06/18/2020 Active B-12, 1,000 mcg capsule hydroCHLOROthiazide as needed. 0 09/07/2020 Active (HYDRODIURIL) 25 mg tablet omeprazole (PriLOSEC) 20 Bedtime 0 06/18/[address] capsule latanoprost (XALATAN) Administer 1 0 06/04/2021 Active 0.005 % ophthalmic drop into both solution eyes at bedtime. Hospital, Clinic, or Other Ordered Dose Route Frequency Start Date End Date Status Facility Administered Medication [id number] 2 - 25 mL Ifil As needed 07/02/2020 Active rine 0.25%-1%-1:200,000 injection 2-25 mLIndications: Squamous Cell Carcinoma In Situ Active Problems No known active problems Encounters Date Type Specialty Care Team Description 10/05/2021 Orders Only Dermatology Marely, Malignant Neopl asm Arlen R, Of Neck Basal C ell Cal, M.S. (Primary Dx) 09/29/2021 Comprehensive Visit Dermatology Marely, Keratosi s Actinic (Primary Dx); Arlen R, Dermatoheliosis ; Cal, M.S. Nevi Multiple; Angioma Chiang; Keratosis Sebor rheic; Screening [place] Skin Cancer; Lentigo; Tumor Skin Unce rtain Behavior 09/29/2021 Ancillary Procedure 09/28/2021 Clinical Communication Admitting/Central Pre-visit Intake Scheduling from Last 3 Months Family History Medical History Relation Name Comments Prostate cancer Brother Jovan Reeves Dementia Father Gil Avendano at 74 Breast cancer Sister 1 Karol Mays Sister 2 Karol Alamon Relation Name Status Comments Brother Jovan Reeves Father Gil Avendano Sister 1 Karol Nash Sister 2 Karolaiden Ardon Social History Tobacco Use Types Packs/Day Years [...] or relatives? How often do you attend restorationist or More than 4 times per year 05/10/2021 yazdanism services? Do you belong to any clubs or No 05/10/2021 organizations such as restorationist groups, unions, fraternal or athletic groups, or [...] place to sleep or slept in a fci (including now)? Education Answer Date Recorded What is the highest level of school you have completed or 12 th grade 09/21/2020 the highest degree you have received? Sex Assigned at Date Recorded Not on file Last Filed Vital Signs Vital Sign Reading Time Taken Comments Blood Pressure 140/90 06/13/2021 7:33 AM CDT Pulse 68 06/13/2021 7:33 AM CDT Temperature 36.1 ??C (97 ??F) 09/22/2020 8:47 AM CDT Respiratory Rate - - Oxygen Saturation 98% 09/22/2020 8:47 AM CDT Inhaled Oxygen Concentration - - Weight 59.4 kg (131 lb) 06/13/2021 12:30 PM CDT Height 152.4 cm (5') 06/13/2021 12:30 PM CDT Body Mass Index 25.58 06/13/2021 12:30 PM CDT Plan of Treatment Upcoming Encounters Date Type Specialty Care Team Description 12/09/2021 Comprehensive Visit Dermatology Radha Wright M.D. [address] [place], [place] [phone] (Tomas delgado) 12/26/2021 Procedure visit Dermatology Cristi Wright M.D. [address] [place], [place] [phone] (Tomas delgado) Health Maintenance Due Date Last Done Comments Creatinine Level 1940 Potassium Level 1940 Sodium Level 1940 Zoster Vaccines (3 of 3) 09/11/2018 07/17/2018, 09/23/2009 Fall Risk Screen (Annual) 02/26/2021 COVID-19 Vaccine (5 - Booster for 08/10/2021 06/15/2021, , Pfizer series) 05/25/2020, Additional history exists Office Visit for Blood Pressure 09/12/2021 06/13/2021 Check / Re-check Influenza Vaccine (#1) 2021 12/01/2020, 12/18/2019, 01/02/2018, Additional history exists DTaP,Tdap,and Td Vaccines (5 - Td 07/17/2028 07/17/2018, , or Tdap) 06/12/2006, Additional history exists Pneumococcal vaccine (65+ years) Completed 01/02/2018, Depression Screening (Annual Completed 06/12/2021 PHQ-2) Medical Devices Implanted Type Area Beverage Steward Device Shelf Model / Identifier Expiration Serial / Date Lot Knee Implant Knee Implant Left: Knee Procedures Procedure Name Priority Date/Time Associated Comments Diagnosis DERMATOPATHOLOGY Routine 09/29/2021 3:00 PM Resul ts for this CDT procedure are i n the results section. DERMATOLOGY IMAGE EXAM Routine 09/29/2021 12:00 R esults for this AM CDT procedure are i n the results section. from Last 3 Months Results Dermatopathology (09/29/2021 3:00 PM CDT) Component Value Ref Test Analysis Performed At [facility] Range Method Time Signature 10/05/2021 [facility] 3:10 PM CDT Participated in Ruth 10/05/2021 [facility] the Interpretation Jacqueline Brizuela 3:10 PM CDT -Pathology Resident Report Rylee Maritza 10/05/2021 [facility] electronically Jacqueline Miller 3:10 PM CDT signed by Gross Description Received in formalin labeled with the patient's n dave, 10/05/2021 [facility] medical record number, and left lateral [...] by CARLOS ALBERTO. Interpretation FINAL DIAGNOSIS 10/05/2021 PDR[facility] A. ??Left lateral neck, Skin shave biopsy: [...] PATH DERM ORDERABLE S Performing Organization Address City/[facility]/ZIP Code Phon e Number [facility] - [address] [place], [place] [address] [facility] [place] [address] Laboratories-[facility] [address] [place]-Dermatology Image Exam (09/29/2021 12:00 AM [...] RAD IMAGING PROCEDUR ES Performing Organization Address City/[facility]/ZIP Code Phon e Number IIMS IIMS NA from Last 3 Months Insurance Payer Benefit Plan / Subscriber ID Effective Phone Address T ype Group Dates MEDICARE MEDICARE A AND [id number] 2006-Prese [address] [place] [address] MEDICA MEDICA PRIME [id number] 2017-Prese [phone] [address] [employer] [address] [place] [address] Care Teams Hospital Receiving Clerk Relationship Specialty Start Date End Date Elsewhere, Pcp PCP - General Internal Medicine 05/10/21
--- OUTSIDE RECORDS SUMMARY | 2021-12-06 10:30 | XMS_ITS | Encounter Summary ---
:1940 Author Organization [facility] Address [address] [place] [address] Care Team Providers Name Role Phone Unavailable Primary Care Provider Unavailable Encounter Details Date Type Department Care Team Description 09/20/2020 Clinical Communication Division of Sammi Catalan Pulmonary Medicine Jacqueline Romero in [address] [place] [phone] [place], [place] [phone] (Wo rk) [phone] Social History Tobacco Use Types Packs/Day Years Used Date Smoking Tobacco: Former Cigarettes 0 Smokeless Tobacco: Never Alcohol Habits Answer Date Recorded How often [...] or relatives? How often do you attend christianity or More than 4 times per year 05/10/2021 worship services? Do you belong to any clubs or No 05/10/2021 organizations such as christianity groups, unions, fraternal or athletic groups, or [...] or slept in a usp (including now)? Sex Assigned at Date Recorded Not on file documented as of this encounter Miscellaneous Notes Telephone Encounter - Cristy Natarajan - 09/20/2020 10:37 AM CDT I have added this patient, in an open slot, to your calendar for Sunday this week. She had a Chest CT done on 09/15, which is viewable in [employer]. However, I do not see she has had a recent, if ever, PFT. Please order a PFT or any other tests you would like her to have done before seeing you on Sunday and we will try to get those done for her/you. Thank you. Please reply to the desk pool at the [facility] DESK documented in this encounter Plan of Treatment Upcoming Encounters Date Type Specialty Care Team Description 12/09/2021 Comprehensive Visit Dermatology Radha Wright M.D. [address] [place], [place] [phone] (Wo rk) 12/26/2021 Procedure visit Dermatology Cristi Wright M.D. [address] [place], [place] [phone] (Wo rk) documented as of this encounter Visit Diagnoses Not on filedocumented in this encounter
--- OUTSIDE RECORDS SUMMARY | 2021-12-06 10:30 | XMS_ITS | Encounter Summary ---
:1940 Author Organization [facility] Address [address] [place] [address] Care Team Providers Name Role Phone Unavailable Primary Care Provider Unavailable Encounter Details Date Type Department Care Team Description 10/12/2020 Orders Only [facility] Sa marisol Garrido M.D. [address] [place], [place] [phone] (Wo rk) Social History Tobacco Use Types Packs/Day Years [...] or relatives? How often do you attend protestant or More than 4 times per year 05/10/2021 jainism services? Do you belong to any clubs or No 05/10/2021 organizations such as protestant groups, unions, fraternal or athletic groups, or [...] Visit Dermatology Radha Wright M.D. [address] [place], [place] [phone] (Wo rk) 12/26/2021 Procedure visit Dermatology Cristi Wright M.D. [address] [place], [place] [phone] (Tomas rk) documented as of this encounter Visit Diagnoses Not on filedocumented in this encounter
--- OUTSIDE RECORDS SUMMARY | 2021-12-06 10:30 | XMS_ITS | Encounter Summary ---
:1940 Author Organization [facility] Address [address] [place] [address] Care Team Providers Name Role Phone Unavailable Primary Care Provider Unavailable Reason for Referral Outpatient (Routine) - Closed Specialty Diagnoses / Procedures Referred By Contact Refer red To Contact Dermatology Carl Oneal M.D . [facility] [address] [place] [phone] Referral ID Status Reason Start Date Expiration Date Visits Requ ested Visits Authorized [id number] Closed 07/19/2020 07/19/2021 1 1 Scheduling Instructions Recheck SCC site involving chest and pos sible initiation of Efudex. 11am Reason for Visit Reason Comments Skin Check Follow-up Outpatient (Routine) - Closed Specialty Diagnoses / Procedures Referred By Contact Refer red To Contact Dermatology Carl Oneal M.D . [facility] [address] [place] [phone] Referral ID Status Reason Start Date Expiration Date Visits Requ ested Visits Authorized [id number] Closed 05/25/2020 05/25/2021 1 1 Encounter Details Date Type Department Care Team Description 07/19/2020 Office Visit Department of Carl Oneal, Keratosis Seborrheic (Primary Dx); Dermatology in [facility] Skin Squamous Cell Personal Histo [address] [phone] Social History Tobacco Use Types Packs/Day Years [...] or relatives? How often do you attend jainism or More than 4 times per year 05/10/2021 hoahaoism services? Do you belong to any clubs or No 05/10/2021 organizations such as jainism groups, unions, [employer]hf [employer]i or athletic groups, or school groups? How [...] place to sleep or slept in a long-term (including now)? Sex Assigned at Date Recorded Not on file documented as of this encounter Progress Notes Carl Oneal M.D. - 07/19/2020 2:30 PM CDT SUBJECTIVE CHIEF COMPLAINT / REASON FOR VISIT Recheck recent surgery sites HISTORY OF PRESENT ILLNESS Darcy Colon is a pleasant 79 y.o. female who follows up for a recheck of recent surgery sites.The patient was last seen by me in Dermatology clinic on 05/25/2020 and two shave biopsies were performed of lesions involving the upper central sternum and the left distal medial harrell were done. Pathology report showed infiltrative moderately differentiated squamous cell carcinoma involving the upper central sternum and scc in situ involving the left distal medial harrell. [place] for subsequent treatment with Mohs surgery involving the upper central sternum and ED&C involving the left harrell. Additionally, the patient returns today for further discussion of initiation of Efudex cream for treatment of AKs involving the chest. Per Dr. Wright's note at the time of the Mohs surgery and ED&C on 07/02/20, he stated there was residual actinic keratosis noted at left superior and right inferior aspect of the specimen on deep cuts. ??This cleared at true margin sections. He prescribed Efudex twice daily for 21 days was to be usedadjacent to her surgical scar, to be started one month post Mohs surgery. patient states that that would be approximately August 02 but she will be going to a wedding so would like to delay it by a few weeks and has reservations as she tried Efudex cream once before on her face and had significant irritation. MEDICAL HISTORY 1. 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 Turner at [facility] 3. Upper central sternum: Squamous cell carcinoma, grade II, status post Mohs surgery on 07/02/[address] Wright at [facility] 4. 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 Wright at [facility] 5. Negative for melanoma ?? FAMILY HISTORY Negative??for melanoma ?? OBJECTIVE PHYSICAL EXAMINATION General: Awake, alert, in no acute distress, and with appropriate affect. Skin: Limited skin exam done today. Examination of the upper central sternum reveals a long Mohs surgery scar that is healing well with no evidence for infection or any evidence for positive margins or actinic keratosis near the surgicalsite. Examination of the left harrell reveals an open shave biopsy and ED&C site with some fibrin deposition that measures 1.5 x 1.3 cm, that is healing with no evidence for infection. Examination of the right cheek reveals a 2 x 1.7 cm uniformly pigmented brown patch compatible with a lentigo vs flat SK. ASSESSMENT / PLAN #1 Upper central sternum: Squamous cell carcinoma, grade II, status post Mohs surgery on 07/02/[address] Wright at [facility] Examination today reveals a well healed surgery scar. I have asked her to apply Vaseline once daily to the scar. There is no evidence for any recurrence or adjacent actinic keratosis. Patient was instructed at the time of the Mohs surgery to start using Efudex cream twice daily 1 month postop to the area adjacent to the surgical scar which she is reluctant to do as she will be going to a wedding in mid July and wants to delay until after the wedding and she has tried Efudex cream previously for her face and had significant irritation. Photographs taken today. She will follow up with us here in the third week of July for a recheck after her grandson's wedding at which time we will consider further treatment with Efudex per '[facility] surgery note from July 02, 2020. 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 Follow up immediately if any evidence for infection. #3 Right cheek: Lentigo vs flat SK The benign nature of the skin lesion(s) was discussed with the patient. No treatment is required at this time. I recommend continued observation. Should symptoms or changes develop related to this condition, I would recommend a return visit for reassessment. Follow up in 3-4 months for recheck or immed iately if any changes occur. PATIENT EDUCATION: Ready to learn. No apparent learning barriers were identified. Learning preferences include listening. Explained diagnosis and treatment plan; patient/guardian of patient expressed understanding of thecontent. By signing my name below, I, Alice Sparks, attest that this documentation has been prepared underthe direction and in the presence of Carl Oneal M.D. Electronically Signed: reynaldo Luna. Carl Lopez M.D., personally performed the services described in this documentation. All medical record entries made by the scribe were at my direction and in my presence. I have reviewed the chart and discharge instructions (if applicable) and agree that the record reflects my personal performance and is accurate and complete. Carl Oneal M.D. documented in this encounter Plan of Treatment Upcoming Encounters Date Type Specialty Care Team Description 12/09/2021 Comprehensive Visit Dermatology Radha Wright M.D. [address] [place], [place] [phone] (Wo rk) 12/26/2021 Procedure visit Dermatology Cristi Wright M.D. [address] [place], [place] [phone] (Wo rk) Scheduled Referrals Name Type Priority Associated Order Schedule Diagnoses Dermatology office Outpatient Referral Routine Ex pected: visit (clinic) 08/24/2020 (Approximate), Expires: 2023 documented as of this encounter Visit Diagnoses Diagnosis Keratosis Seborrheic - Primary Cancer Skin Squamous Cell Personal Histo ry documented in this encounter
--- OUTSIDE RECORDS SUMMARY | 2021-12-06 10:30 | XMS_ITS | Encounter Summary ---
:1940 Author Organization [facility] Address [address] [place] [address] Care Team Providers Name Role Phone Unavailable Primary Care Provider Unavailable Reason for Referral Outpatient (Routine) - Closed Specialty Diagnoses / Procedures Referred By Contact Refer red To Contact Neurology Diagnoses Tremor Gisele Curran M.D. [facility] [address] [place] [address] Referral ID Status Reason Start Date Expiration Date Visits Requ ested Visits Authorized [id number] Closed 11/17/2020 11/17/2021 1 1 Encounter Details Date Type Department Care Team Description 11/17/2020 [facility] Bina, Shayna or (Primary Dx) AND CLINICS Jacqueline Jaquez [address] [facility] [address] [place] [address] [place], [place] [phone] Social History Tobacco Use Types Packs/Day Years [...] More than 4 times per year 05/10/2021 christianity services? Do you belong to any clubs [...] place to sleep or slept in a mcc (including now)? Education Answer Date Recorded What is the highest level of school you have completed or 12 th grade 09/21/2020 the highest degree you have received? Sex Assigned at Date Recorded Not on file documented as of this encounter Plan of Treatment Upcoming Encounters Date Type Specialty Care Team Description 12/09/2021 Comprehensive Visit Dermatology Radha Wright M.D. [address] [place], [place] [phone] (Tomas delgado) 12/26/2021 Procedure visit Dermatology Cristi Wright M.D. [address] [place], [place] [phone] (Tomas delgado) Scheduled Referrals Name Type Priority Associated Diagnoses Order S chedule Neurology Referral Outpatient Referral Routine Tremor Ex pected: 11/17/2020 (Approximate), Expires: 11/18/2023 documented as of this encounter Visit Diagnoses Diagnosis Tremor - Primary documented in this encounter
--- OUTSIDE RECORDS SUMMARY | 2021-12-06 10:30 | XMS_ITS | Encounter Summary ---
:1940 Author Organization [facility] Address [address] [place] [address] Care Team Providers Name Role Phone Unavailable Primary Care Provider Unavailable Encounter Details Date Type Department Care Team Description 07/02/2020 Ancillary Procedure Department of Dermatology Social History [...] or relatives? How often do you attend uatsdin or More than 4 times per year 05/10/2021 uatsdin services? Do you belong to any clubs or No 05/10/2021 organizations such as uatsdin groups, unions, fraternal or athletic groups, or [...] place to sleep or slept in a chcf (including now)? Sex Assigned at Date Recorded Not on file documented as of this encounter Plan of Treatment Upcoming Encounters Date Type Specialty Care Team Description 12/09/2021 Comprehensive Visit Dermatology Radha Wright M.D. [address] [place], [place] [phone] (Wo rk) 12/26/2021 Procedure visit Dermatology Cristi Wright M.D. [address] [place], [place] [phone] (Wo rk) documented as of this encounter Procedures Procedure Name Priority Date/Time Associated Comments Diagnosis DERMATOLOGY IMAGE Routine 07/02/2020 12:00 Result s for this EXAM AM CDT procedure are i n the results section. documented in this encounter Results sternum 201 Mohs micrographic surgery-Dermatology Image Exam (07/02/2020 12:00 AM CDT) Specimen (Source) Anatomical Location Collection Method / Collectio n Time Received Time / Laterality Volume Narrative IIMS - 07/02/2020 2:05 PM CDT This order has been created [...]
--- OUTSIDE RECORDS SUMMARY | 2021-12-06 10:30 | XMS_ITS | Encounter Summary ---
:1940 Author Organization [facility] Address [address] [place] [address] Care Team Providers Name Role Phone Unavailable Primary Care Provider Unavailable Reason for Referral Outpatient (Routine) - Closed Specialty Diagnoses / Procedures Referred By Contact Refer red To Contact Pulmonary Medicine Diagnoses Bronchitis Acute Gisele Curran M.D. [facility] [address] [place] [address] Referral ID Status Reason Start Date Expiration Date Visits Requ ested Visits Authorized [id number] Closed 09/16/2020 09/16/2021 1 1 Encounter Details Date Type Department Care Team Description 09/16/2020 [facility] Acute AND CLINICS Jacqueline Jaquez (Primary Dx) [address] [facility] [address] [place] [address] [place], [place] [phone] Social History Tobacco Use Types Packs/Day Years [...] or relatives? How often do you attend mormonism or More than 4 times per year 05/10/2021 jain services? Do you belong to any clubs or No 05/10/2021 organizations such as mormonism groups, unions, fraternal or athletic groups, or [...] place to sleep or slept in a longterm (including now)? Sex Assigned at Date Recorded Not on file documented as of this encounter Plan of Treatment Upcoming Encounters Date Type Specialty Care Team Description 12/09/2021 Comprehensive Visit Dermatology Radha Wrigth M.D. [address] [place], [place] [phone] (Wo rk) 12/26/2021 Procedure visit Dermatology Cristi Wright M.D. [address] [place], [place] [phone] (Wo danny) Scheduled Referrals Name Type Priority Associated Diagnoses Order S [facility] Pulmonary Medicine Outpatient Referral Routine Bronchitis Acut e Expected: Referral 09/16/2020 (Approximate), Expires: 09/17/2023 documented as of this encounter Visit Diagnoses Diagnosis Bronchitis Acute - Primary documented in this encounter
--- OUTSIDE RECORDS SUMMARY | 2021-12-06 10:30 | XMS_ITS | Encounter Summary ---
:1940 Author Organization [facility] Address [address] [place] [address] Care Team Providers Name Role Phone Unavailable Primary Care Provider Unavailable Reason for Visit Outpatient (Routine) - Closed Specialty Diagnoses / Procedures Referred By Contact Refer red To Contact Dermatology Diagnoses Squamous Cell Carcinoma In Situ Carl Oneal M.D. [facility] Procedures SONU MOHS 1-[address] sites [address] [place] [phone] Referral ID Status Reason Start Date Expiration Date Visits Requ ested Visits Authorized [id number] Closed 06/02/2020 06/02/2021 1 1 Encounter Details Date Type Department Care Team Description 07/02/2020 Procedure visit Department of Cristi Wright, Malign ant Neoplasm Of Trunk Squamous Cell (Primary Dx); Dermatology in [place] Squamous Cell Carcinoma In Situ [place], [place] [address] [facility] [address] [place] [phone] Social History Tobacco Use Types Packs/Day Years [...] or relatives? How often do you attend scientology or More than 4 times per year 05/10/2021 rastafari services? Do you belong to any clubs or No 05/10/2021 organizations such as scientology groups, unions, fraternal or athletic groups, or [...] or slept in a retirement (including now)? Sex Assigned at Date Recorded Not on file documented as of this encounter Last Filed Vital Signs Vital Sign Reading Time Taken Comments Blood Pressure 144/79 07/02/2020 11:00 AM CDT Pulse - - Temperature - - Respiratory Rate - - Oxygen Saturation - - Inhaled Oxygen Concentration - - Weight - - Height - - Body Mass Index - - documented in this encounter Progress Notes Sabrina Boggs RAdalidN. - 07/02/2020 8:00 AM CDT Electrodesiccation and curettage on the Left harrell was/were performed as ordered and outlined by Dr. Nereyda Wright [phone]) in the clinical note dated with today's date. documented in this encounter Procedure Notes Praveen Case III, M.D. - 07/02/2020 8:00 AM CDTAssociated Order(s): SONU MOHS 1-4 SITES PREOP INDICATION: REMOVAL. Date of Surgery: 07/02/20 Surgeon: Dr. Wright Boardinghouse Keeper: Dr. Case Location: [facility] Floor:16 Room:[facility] Visit Type: Outpatient PostOp Diagnosis: Squamous cell carcinoma, grade II Anatomic Location: Upper central sternum Preoperative size: 1.9 x 1.8 cm [facility] number: [id number] Indication(s) for Mohs Micrographic Surgery: aggressive histopathology and ill- defined clinical margins Procedure(s): Mohs micrographic surgery with intermediate layered closure Prior to the procedure, final verification of the patient identity and correct marked surgical site was performed. Procedural pause conducted to verify: correct patient identity, procedure to be performed and as applicable, correct side and site, correct patient position, and availability of implants, special equipment or special requirements. INFORMED CONSENT Discussed the risks, benefits, alternatives, and the necessity of other members of the healthcare team participating in the procedure. All questions answered and consent given. PATIENT EDUCATION Ready to learn, no apparent learning barriers were identified; learning preferences include listening. Explained diagnosis and treatment plan; patient expressed understanding of the content. Preoperative medications: None The anesthesia used was 1% lidocaine and 0.25% bupivacaine with 1:200,000 epinephrine. The skin was prepped in a sterile fashion with Hibiclens. Histologic tumor-free margins were obtained in 1 stages (2 blocks) by standard Mohs micrographic techniques with the Mohs surgeon performing both the surgery and pathology. The final defect depth was down to level of: fascia. Postoperative size: 3.8 x 2.5 cm. Anesthesia with 1% lidocaine with 1:200,000 epinephrine and another sterile prep were performed. An intermediate layered closure was planned, and Burow's triangles were excised from opposite poles of the defect in the direction of the skin tension lines. The wound was undermined as needed, and hemostasis was obtained with electrocoagulation. The wound edges were closed with 3-0 Vicryl and 4-0 Monocryl interrupted and running subcutaneous sutures. Postoperative length: 9.0 cm. Estimated blood loss: Minimal. Complications: None. Wound care: Routine. Postoperative medications: Prescription provided for Efudex to be used twice daily for 21 days adjacent to surgical scar in the setting of actinic damage. Patient is directed to use this starting one month from now. documented in this encounter Consult Notes Praveen Case III, M.D. - 07/02/2020 8:00 AM CDT DERMATOLOGIC SURGERY CONSULTATION NOTE PATIENT NAME: Darcy Colon DATE OF : 1940, 79 y.o. DATE: 07/05/2020 STAFF PHYSICIAN: Dr. Wright SUBJECTIVE Chief Complaint: Treatment of SCC, left upper central sternum and SCCIS, left harrell HPI: Darcy Colon is a 79 y.o. female presents today in referral from Carl Oneal M.D. for biopsy proven SCC, left upper central sternum and SCCIS, left harrell. She presents for treatment of these today. She has a prior history of skin cancer. She has no other concerns. The dermatologic surgery preoperative sheet was reviewed with pertinent positives as below: Pertinent Dermatologic ROS: ROS QUESTION YES NO Someone else make decisions for you? [] [x] Prior skin cancer [x] [] Prior melanoma [] [x] Family history skin cancer [] [x] Heart disease [] [x] Heart valve [] [x] murmur [] [x] pacemaker [] [x] defibrillator [] [x] Lung disease or conditions [] [x] stroke [] [x] seizure [] [x] Dementia [] [x] Other cancers [x] [] Infectious diseases (HIV/hep) [] [x] diabetes [] [x] Organ transplant & type [] [x] Bleeding or healing problems [] [x] aspirin [] [x] Warfarin (Coumadin) [] [x] Plavix [] [x] Eliquis [] [x] Other blood thinners [] [x] tobacco [] [x] Joint replacements [x] [] Other implants [] [x] Medications: The medications for today's visit were reviewed OBJECTIVE VITALS: BP 144/79 PHYSICAL EXAM: General: well appearing female in no acute distress Skin: Focused skin examination was performed today of the surgical site(s) revealing erythematous scars, consistent with prior biopsy site(s), on the upper central sternum and left harrell. No other concerns in the areas examined. REVIEW OF MEDICAL CHART: A review of the patient's medical chart and any referral form(s) was performed. I personally reviewed the patient's histopathology from the biopsy slides, and my impression is listed below in the assessment and plan. ASSESSMENT / PLAN #1 Squamous cell carcinoma, grade II, upper central sternum -After independent review of the pathology report(s), slide(s), photograph(s) and previous note(s), the nature of the diagnosis was reviewed with the patient. Treatment options were discussed with the patient, as were the risks, benefits, and alternatives to Mohs micrographic surgery. Risks included bleeding, infection, scar, recurrence, large wound, dehiscence, and sensation loss, among others. Natural history of scar and expectations reviewed. Mohs Micrographic surgery is recommended given one or more of the following: tumor size/subtype, high risk anatomic site, high risk tumor features, previous recurrence, and/or immunosuppressed status. After discussion, the patient consented to proceed. All questions were answered. All questions were answered to apparent satisfaction. Written information regarding the procedure was provided today. -Tumor extirpation was accomplished after 1 stage of Mohs micrographic surgery. Residual actinic keratosis was noted at left superior and right inferior aspect of the specimen on deep cuts. This cleared at true margin sections. Efudex twice daily for 21 days was prescribed to be used adjacent to her surgical scar, to be started in one month. The resulting defect was repaired with a primary intermediate layered closure. Well tolerated. Recommend yearly skin checks and regular sun protection #2 Squamous cell carcinoma in situ, left harrell After discussion of risks, benefits, alternatives, we elected to proceed with electrodesiccation andcurettage today. The anesthesia used was 1% lidocaine with epinephrine 1:200,000. The skin was prepped in a sterile fashion with alcohol. The lesion was curetted with a 3-mm curette in three different directions and electrodessication of the base until clinically tumor-free margins were obtained. Postoperative size: 1.3 x 1.3 cm. Estimated blood loss: Minimal. Complications: None. Wound care: Routine. PROCEDURAL PAUSE Procedural pause conducted to verify: correct patient identity, procedure to be performed, and as applicable, correct side and site, correct patient position, and availability of implants, special equipment, or special requirements. PATIENT EDUCATION Ready to learn. No apparent learning barriers were identified. Learning preferences include listening. Explained diagnosis and treatment plan; patient/guardian of patient expressed understanding of thecontent. INFORMED CONSENT Discussed the risks, benefits, alternatives, and the necessity of other members of the healthcare team participating in the procedure. All questions answered and consent given. Associated attestation - Cristi Wright M.D. - 07/05/2020 2:45 PM CDT I saw and evaluated the patient, participating in the jorge elements of the service. I discussed the findings, assessment and plan with the resident/fellow and agree with resident/fellow's findings and plan as documented in the resident/fellow's note. I was immediately available for the entirety of the p rocedure(s) and present for the jorge and critical portions. I personally performed the Mohs micrographic surgery layer. Dr. Case performed repair under my supervision. Well tolerated. Please see notes for additional details. Recommend 5% 5-fluorouracil cream (Efudex) twice daily for 3 weeks on the chest for background actinic damage. Will hold off on starting until fully healed from treatment, approximately in 1 month. Patient requires follow-up within 6months. Electronically signed by: Cristi Wright M.D. 07/05/20 2:43 PM CDT documented in this encounter Plan of Treatment Upcoming Encounters Date Type Specialty Care Team Description 12/09/2021 Comprehensive Visit Dermatology Radha Wright M.D. [address] [place], [place] [phone] (Wo rk) 12/26/2021 Procedure visit Dermatology Cristi Wright M.D. [address] [place], [place] [phone] (Wo rk) documented as of this encounter Procedures Procedure Name Priority Date/Time Associated Diagnosis Comme nts SONU [facility] 1-4 SITES Routine 07/02/2020 8:00 AM Squamous Cell Re sults for this CDT Carcinoma In Situ procedure are in the results section. documented in this encounter Results SONU [facility] 1-4 sites (07/02/2020 8:00 AM CDT) Narrative Cristi Wright M.D. - 07/02/2020 8:00 AM AURAT Praveen Case III, M.D. ? 07/05/2020 ??9:18 AM PREOP INDICATION: REMOVAL. Date of Surgery: ??07/02/20 Surgeon: Dr. Wright Boardinghouse Keeper: Dr. Case Location: [place] ?? Bldg:GO ?? Floor: 16 ?? Room:[facility] Visit Type: Outpatient PostOp Diagnosis: ??Squamous cell carcin noy, grade II Anatomic Location: ??Upper central cook um Preoperative size: ??1.9 x 1.8 cm [facility] number: 201/211 Indication(s) for Mohs Micrographic Surg stanislav: aggressive histopathology ??and ill-defined clinica l margins Procedure(s): Mohs micrographic surgery with intermediate layered closure Prior to the procedure, final verificati on of the patient identity and correct marked surgical site was perform ed. Procedural pause conducted to verify: co rrect patient identity, procedure to be performed and as applicable, corre ct side and site, correct patient position, and availability of implants, special equipment or special requirements. INFORMED CONSENT Discussed the risks, benefits, alternati ves, and the necessity of other members of the healthcare team participa ting in the procedure. ?? All questions answered and consent given. PATIENT EDUCATION Ready to learn, no apparent learning bar riers were identified; learning preferences include listening. ??Explain ed diagnosis and treatment plan; patient expressed understanding of the c ontent. Preoperative medications: ??None The anesthesia used was 1% lidocaine and 0.25% bupivacaine with 1:200,000 epinephrine. ??The skin was prepped in a sterile fashion with Hibiclens. Histologic tumor-free margins were obtai lazara in 1 stages (2 blocks) by standard Mohs micrographic te chnisheela with the Mohs surgeon performing both the surgery and pathology. The final defect depth was down to level of: fasci a. Postoperative size: ?? 3.8 x 2.5 cm. Anesthesia with 1% lidocaine with 1:200, 000 epinephrine and another sterile prep were performed. ??A n intermediate layered closure was planned, and Burow's triangl es were excised from opposite poles of the defect in the dire ction of the skin tension lines. ??The wound was undermined as nee ded, and hemostasis was obtained with electrocoagulation. ??The wound edges were closed with 3-0 Vicryl and 4-0 Monocryl interru pted and running subcutaneous sutures. Postoperative ileana th: 9.0 cm. ??Estimated blood loss: Minimal. ??Complications: No ne. ??Wound care: Routine. Postoperative medications: ??Prescriptio n provided for Efudex to be used twice daily for 21 days adjacent to surgical scar in the setting of actinic damage. ??Patient is directed to use this starting one month from now. Carl Oneal M.D. DERM PROCEDURE ORDERABLES documented in this encounter Visit Diagnoses Diagnosis Malignant Neoplasm Of Trunk Squamous Margaret l - Primary Squamous Cell Carcinoma In Situ documented in this encounter Administered Medications Active Administered Medications - up to 3 most recent administrations Medication Order MAR Action Action Date Dose Rate Site epnpmtguhid-tzgzyjnyp-LIEHCBEhnht Given 07/02/2020 10:05 AM CDT 2 mL 0.25%-1%-1:200,000 injection 2-25 mL 2-25 mL, infiltration, As needed, may repeat if the patient complains of pain/discomfort at the site up to 50 mL for entire procedure, Starting on Sun07/02/20 at 0920 Given 07/02/2020 9:00 AM CDT 4 mL Inactive Administered Medications - up to 3 most recent administrations Medication Order MAR Action Action Date Dose Rate Site lidocaine-EPINEPHrine 1%-1:200,000 Given 07/02/2020 10:05 AM CDT 6 mL injection 2-50 mL (XYLOCAINE W/EPI) 2-50 mL, infiltration, As needed, may repeat if the patient complains of pain/discomfort at the site up to 50 mL for entire procedure, Starting on Sun07/02/20 at 0920 Given 07/02/2020 8:30 AM CDT 10 mL documented in this encounter
--- OUTSIDE RECORDS SUMMARY | 2021-12-06 10:30 | XMS_ITS | Encounter Summary ---
:1940 Author Organization [facility] Address [address] [place] [address] Care Team Providers Name Role Phone Unavailable [...] or relatives? How often do you attend presybeterian or More than 4 times per year 05/10/2021 taoist services? Do you belong to any clubs or No 05/10/2021 organizations such as presybeterian groups, unions, fraternal or athletic groups, or [...] Visit Dermatology Radha Wright M.D. [address] [place], [place] [phone] (Wo rk) 12/26/2021 Procedure visit Dermatology Cristi Wright M.D. [address] [place], [place] [phone] (Wo rk) documented as of this encounter Procedures Procedure Name Priority Date/Time Associated Comments Diagnosis DERMATOLOGY IMAGE Routine 07/02/2020 12:10 Result s for this EXAM AM CDT procedure are i n the results section. documented in this encounter Results sternum 201 Mohs micrographic surgery-Dermatology Image Exam (07/02/2020 12:10 AM CDT) Specimen (Source) Anatomical Location Collection [...]
--- OUTSIDE RECORDS SUMMARY | 2021-12-06 10:30 | XMS_ITS | Encounter Summary ---
:1940 Author Organization [facility] Address [address] [place] [address] Care Team Providers Name Role Phone Unavailable Primary Care Provider Unavailable Reason for Visit Reason Comments Follow-up Outpatient (Routine) - Closed Specialty Diagnoses / Procedures Referred By Contact Refer red To Contact Dermatology Carl Oneal M.D . [facility] [address] [place] [phone] Referral ID Status Reason Start Date Expiration Date Visits Requ ested Visits Authorized [id number] Closed 07/19/2020 07/19/2021 1 1 Encounter Details Date Type Department Care Team Description 11/30/2020 Office Visit Department of Carl Oneal, Keratosis Actinic (Primary Dx); Dermatology in [facility]; [place], [place] [address] [phone] Social History Tobacco Use Types Packs/Day Years [...] or relatives? How often do you attend adventism or More than 4 times per year 05/10/2021 amish services? Do you belong to any clubs or No 05/10/2021 organizations such as adventism groups, unions, fraternal or athletic groups, or [...] encounter Progress Notes Carl Oneal M.D. - 11/30/2020 3:15 PM CDT SUBJECTIVE CHIEF COMPLAINT / REASON FOR VISIT 1. Recheck lesion x 1 2. Recheck squamous cell carcinoma sites x 2 HISTORY OF PRESENT ILLNESS Darcy Colon is a pleasant 80 y.o. female who follows up for recheck of a lesion involving the right cheek, as well as a recheck of squamous cell carcinoma sites x 2 involving the upper central sternum and left harrell. The patient was last seen by me in Dermatology clinic on 07/19/20, and we felt the lesion involving the right cheek was compatible with a lentigo vs flat seborrheic keratosis. The patient has a history of multiple non-melanoma skin cancers, most recently grade 2 squamous cellcarcinoma involving the upper central sternum, status post Mohs surgery on 07/02/[address] Wright at [facility]. She also had a squamous cell carcinoma in situ involving the left harrell treated with electrodesiccation and curettage on that same day. At the time of the Mohs surgery, she was instructed by Dr. Wright to start Efudex cream twice daily for one month post-op to the adjacent to the surgical scar involving the upper central sternum. She was reluctant to do so as she planned to go to a weddingin mid-July and wanted to delay until after the wedding. She had tried Efudex cream in the past for the face and experienced significant irritation. She was recommended to follow up at [facility] in July a few weeks later after initiating the Efudex cream for further evaluation but she had to cancel that appointment. Today she states that she never did initiate the Efudex cream after the wedding and as noted is some of reluctant given the significant irritation she had previously from Efudex when it was used in the past. She denies a personal or family history for melanoma. She uses sunscreen. She denies any new or changing lesions today. MEDICAL HISTORY 1. History of multiple non-melanoma skin cancers, treated elsewhere years ago 2. Left mid-harrell: History of invasive well-differentiated squamous cell carcinoma, status post Mohs surgery on 03/04/[address] Turner at [facility] 3. Upper central sternum: History of grade 2 squamous cell carcinoma, status post Mohs surgery on 07/02/[address] Wright at [facility] 4. Left harrell: History of squamous cell carcinoma in situ, status post electrodesiccation and curettage on 07/02/[address] Wright at [facility] 5. Negative for melanoma FAMILY HISTORY Negative??for melanoma OBJECTIVE PHYSICAL EXAMINATION General: Awake, alert, in no acute distress, and with appropriate affect. Skin: Limited skin exam done today. Examination of the right cheek reveals a 2 x 1.7 cm uniformly pigmented brown patch, compatible witha lentigo vs seborrheic keratosis. Examination of the upper central sternum reveals a large scar with no evidence for recurrence of squamous cell carcinoma. Approximately 1 cm above the superior one-third of the scar is a small1-2 mm actinic keratosis. Approximately 6 mm inferior to the distal one-third of the scar is a second very small actinic keratosis. Examination of the left harrell reveals no evidence for recurrence of squamous cell carcinoma. Examination inferior to the left knee reveals a 6 x 4 mm brown macule with slightly darker pigmentation at the 11 o'clock position. ASSESSMENT / PLAN #1 Upper central sternum (above scar superior aspect) and upper central sternum (below scar distal aspect): Actinic keratoses x2 Given the precancerous nature of this lesion(s), treatment is medically indicated. After discussion of the risks, benefits and alternatives to treatment with cryotherapy, informed consent was obtained.We treated a total of 2 lesion(s) with two 5-10-second freeze-thaw cycles of liquid nitrogen cryother apy. The patient tolerated the procedure well. Aftercare instructions were provided in written and verbal form to the patient. Should any of these lesions recur, the patient should return for biopsy orfurther evaluation. Follow up in 1-2 months for recheck if these areas do not complete resolve. #2 Upper central sternum: History of grade 2 squamous cell carcinoma, status post Mohs surgery on 07/02/[address] Wright at [facility] No clinical evidence of local recurrence today. Recommended monthly self-skin examinations to evaluate for new, changing, symptomatic, or otherwise worrisome lesions. Signs and symptoms of skin cancer discussed. Photoprotection was recommended. Return to Dermatology in 6 months for a full skin exam or immediately if any new or changing lesions are noted. #3 Left harrell: History of squamous cell carcinoma in situ, status post electrodesiccation and curettage on 07/02/[address] Wright at [facility] No clinical evidence of local recurrence today. Recommended monthly self-skin examinations to evaluate for new, changing, symptomatic, or otherwise worrisome lesions. Signs and symptoms of skin cancer discussed. Photoprotection was recommended. Return to Dermatology in 6 months for a full skin exam or immediately if any new or changing lesions are noted. #4 Inferior to left knee: Benign nevus The ABCDE criteria for melanoma was reviewed with the patient. This nevus does not reach the clinical threshold for biopsy. I recommend continued sun protection, self-skin examinations, and observation. Should any of the patient's nevi change in size, color, texture, or shape or develop symptoms such as itching or bleeding, I recommend an immediate return visit for reassessment. Follow up in 6 monthsfor a recheck of the stated lesion(s). #5 Right cheek: Lentigo vs seborrheic keratosis The benign nature of the skin lesion(s) was discussed with the patient. No treatment is required. I recommend continued observation. Should this lesion change in size, color, texture, or shape or develop symptoms such as itching or bleeding, I recommend an immediate return visit for reassessment. Otherwise follow up in 6 months for recheck. PATIENT EDUCATION: Ready to learn. No apparent learning barriers were identified. Learning preferences include listening. Explained diagnosis and treatment plan; patient/guardian of patient expressed understanding of thecontent. By signing my name below, I, Fredis Brizuela, attest that this documentation has been prepared under thedirection and in the presence of Carl Oneal M.D. Electronically Signed: reynaldo Schulte. 11/30/2020. 3:39 PM CDT. I, Carl Oneal M.D., personally performed the services described in [...] Visit Dermatology Radha Wright M.D. [address] [place], [place] [phone] (Wo rk) 12/26/2021 Procedure visit Dermatology Cristi Wright M.D. [address] [place], [place] [phone] (Wo rk) documented as of this encounter Visit Diagnoses Diagnosis Keratosis Actinic - Primary Keratosis Seborrheic Nevi Multiple documented in this encounter
--- OUTSIDE RECORDS SUMMARY | 2021-12-06 10:30 | XMS_ITS | Encounter Summary ---
:1940 Author Organization [facility] Address [address] [place] [address] Care Team Providers Name Role Phone Unavailable [...] or relatives? How often do you attend taoist or More than 4 times per year 05/10/2021 nondenominational services? Do you belong to any clubs or No 05/10/2021 organizations such as taoist groups, unions, fraternal or athletic groups, or [...] place to sleep or slept in a prison (including now)? Sex Assigned at Date Recorded Not on file documented as of this encounter Plan of Treatment Upcoming Encounters Date Type Specialty Care Team Description 12/09/2021 Comprehensive Visit Dermatology Radha Wright M.D. [address] [place], [place] [phone] (Wo rk) 12/26/2021 Procedure visit Dermatology Cristi Wright M.D. [address] [place], [place] [phone] (Wo rk) documented as of this encounter Procedures Procedure Name Priority Date/Time Associated Comments Diagnosis DERMATOLOGY IMAGE Routine 07/02/2020 12:15 Result s for this EXAM AM CDT procedure are i n the results section. documented in this encounter Results sternum 201 Mohs micrographic surgery-Dermatology Image Exam (07/02/2020 12:15 AM CDT) Specimen (Source) Anatomical Location Collection [...]
--- OUTSIDE RECORDS SUMMARY | 2021-12-06 10:30 | XMS_ITS | Encounter Summary ---
:1940 Author Organization [facility] Address [address] [place] [address] Care Team Providers Name Role Phone Unavailable Primary Care Provider Unavailable Reason for Visit Outpatient (Routine) - Closed Specialty Diagnoses / Procedures Referred By Contact Refer red To Contact Pulmonary Medicine Diagnoses Bronchitis Acute Gisele Curran M.D. [facility] [address] [place] [address] Referral ID Status Reason Start Date Expiration Date Visits Requ ested Visits Authorized [id number] Closed 09/16/2020 09/16/2021 1 1 Encounter Details Date Type Department Care Team Description 09/22/2020 Comprehensive Visit Division of Sammi Catalan Chronic (Primary Dx); Pulmonary Medicine Jacqueline Romero Bronchitis Acute in [place], [facility] [place] [address] [place], [place] [address] [facility] [address] [place], [place] [phone] (Work) [phone] Social History Tobacco Use Types Packs/Day Years [...] More than 4 times per year 05/10/2021 restorationism services? Do you belong to any clubs [...] or slept in a chcf (including now)? Education Answer Date Recorded What is the highest level of school you have completed or 12 th grade 09/21/2020 the highest degree you have received? Sex Assigned at Date Recorded Not on file documented as of this encounter Last Filed Vital Signs Vital Sign Reading Time Taken Comments Blood Pressure 173/104 09/22/2020 8:47 AM CDT Pulse 96 09/22/2020 8:47 AM CDT Temperature 36.1 ??C (97 ??F) 09/22/2020 8:47 AM CDT Respiratory Rate - - Oxygen Saturation 98% 09/22/2020 8:47 AM CDT Inhaled Oxygen Concentration - - Weight 58.5 kg (128 lb 15.5 oz) 09/22/2020 8:47 AM CDT Height 149.6 cm (4' 10.9) 09/22/2020 8:47 AM CDT Body Mass Index 26.14 09/22/2020 8:47 AM CDT documented in this encounter Consult Notes Samim Catalan M.D. - 09/22/2020 9:00 AM CDT SUBJECTIVE CHIEF COMPLAINT/REASON FOR VISIT Fatigue, mild bronchitis, hypertension HISTORY OF PRESENT ILLNESS Pleasant, thin 80-year-old woman with chronic cough of 4 months duration associated with nonspecificfatigue, mild scratchy throat, and deconditioning. Patient has local primary provider who tried short course antibiotics in May 2020 for presumed bronchitis. Patient is completing 10 day course of Augmentin at present. She did receive COVID vaccine (2nd dose on May 25, 2020). She denies hemoptysis, sinusitis, headache, chest pain, palpitations, orthopnea, severe uncontrolled reflux, or prior asthma/COPD. She is also concerned of her who is hospitalized at [facility] for cough and heartfailure symptoms. Home blood pressure usually between 120-150/85-90. OBJECTIVE PHYSICAL EXAMINATION BP (!) 173/104 (BP Location: Right arm, Patient Position: Sitting) Pulse 96 Temp 36.1 ??C (Skin) Ht 149.6 cm Wt 58.5 kg SpO2 98% BMI 26.14 kg/m?? Repeat blood pressure 145/90 (left arm sitting) General appearance-mildly anxious, cooperative, in no acute distress. ENT-minimal nasal congestion with clear mucoid stranding posterior oropharynx. No thrush, adenopathy, or hoarseness. Mallampati 1-2. Lungs-clear without crackles, wheeze or consolidation Heart-normal S1, S2. JVP normal. No murmur or edema. Abdomen-soft, nontender. Bowel sounds present. No obvious hepatosplenomegaly or masses. Extremities-no cyanosis, clubbing or edema. DIAGNOSTICS RELEVANT LAB RESULTS: CT chest-minimal inflammatory change right medial aspect of lower lobe. No pleural effusion, bronchiectasis or adenopathy. SPECIALTY SALES CONSULTANT swab for COVID 19: Undetected ASSESSMENT / PLAN #1 Mild subacute bonchitis with minimally abnormal CT chest Complete 10 day course of Augmentin as prescribed by local care team. Consider repeat CT chest in 4-6 weeks to reassess minimal inflammatory appearing change in right lower lung. Difficult area for bronchoscopy if needed. #2 Labile hypertension with situational anxiety Continue close follow-up with home blood pressure monitoring and help with any diuretic management through local primary MD. continue psychosocial support with help of nursing and patient's 's care team at [facility]. Card given for patient to call in 4-6 weeks after follow-up CT chest. documented in this encounter Plan of Treatment Upcoming Encounters Date Type Specialty Care Team Description 12/09/2021 Comprehensive Visit Dermatology Radha Wright M.D. [address] [place], [place] [phone] (Wo rk) 12/26/2021 Procedure visit Dermatology Cristi Wright M.D. [address] [place], [place] [phone] (Wo rk) documented as of this encounter Visit Diagnoses Diagnosis Chronic Cough - Primary Bronchitis Acute documented in this encounter
--- OUTSIDE RECORDS SUMMARY | 2021-12-06 10:30 | XMS_ITS | Encounter Summary ---
:1940 Author Organization [facility] Address [address] [place] [address] Care Team Providers Name Role Phone Unavailable Primary Care Provider Unavailable Encounter Details Date Type Department Care Team Description 10/15/2020 [facility], [facility] (Primary Dx) AND CLINICS Jacqueline Jaquez [address] [facility] [address] [place] [address] [place], [place] [phone] [facility] Social History Tobacco Use Types Packs/Day Years [...] or relatives? How often do you attend sabianist or More than 4 times per year 05/10/2021 hindu services? Do you belong to any clubs or No 05/10/2021 organizations such as sabianist groups, unions, fraternal or athletic groups, or [...] place to sleep or slept in a halfway (including now)? Education Answer Date Recorded What is the highest level of school you have completed or 12 th grade 09/21/2020 the highest degree you have received? Sex Assigned at Date Recorded Not on file documented as of this encounter Plan of Treatment Upcoming Encounters Date Type Specialty Care Team Description 12/09/2021 Comprehensive Visit Dermatology Radha Wright M.D. [address] [place], [place] [phone] (Wo danny) 12/26/2021 Procedure visit Dermatology Cristi Wright M.D. [address] [place], [place] [phone] (Wo danny) documented as of this encounter Visit Diagnoses Diagnosis Tremor - Primary documented in this encounter
--- OUTSIDE RECORDS SUMMARY | 2021-12-06 10:30 | XMS_ITS | Encounter Summary ---
:[address] [facility] Address [address] [place] [address] Care Team Providers Name Role Phone Unavailable Primary Care Provider Unavailable Encounter Details Date Type Department Care Team Description 11/30/2020 Ancillary Procedure Department of Dermatology Social History [...] More than 4 times per year 05/10/2021 islam services? Do you belong to any clubs [...] place to sleep or slept in a care home (including now)? Education Answer Date Recorded What is the highest level of school you have completed or 12 th grade 09/21/2020 the highest degree you have received? Sex Assigned at Date Recorded Not on file documented as of this encounter Plan of Treatment Upcoming Encounters Date Type Specialty Care Team Description 12/09/2021 Comprehensive Visit Dermatology Radha Wright M.D. [address] [place], [place] [phone] (Wo rk) 12/26/2021 Procedure visit Dermatology Cristi Wright M.D. [address] [place], [place] [phone] (Wo rk) documented as of this encounter Procedures Procedure Name Priority Date/Time Associated Comments Diagnosis DERMATOLOGY IMAGE Routine 11/30/2020 3:42 PM Resu lts for this EXAM CDT procedure are i n the results section. documented in this encounter Results Cheek, right 12 14 26 28 38-Dermatology Image Exam (11/30/2020 3:42 PM CDT) Specimen (Source) Anatomical Collection Method Collection Time Re ceived Time Location / / Volume Laterality 11/30/2020 3:37 PM CDT Narrative [facility] - 11/30/2020 3:42 PM CDT This order has been created [...]
--- OUTSIDE RECORDS SUMMARY | 2021-12-06 10:30 | XMS_ITS | Encounter Summary ---
:[address] [facility] Address [address] [place] [address] Care Team Providers Name Role Phone Unavailable Primary Care Provider Unavailable Encounter Details Date Type Department Care Team Description 07/19/2020 Ancillary Procedure Department of Dermatology Social History [...] More than 4 times per year 05/10/2021 jehovah's witness services? Do you belong to any clubs [...] [place] [facility] (including now)? Sex Assigned at Date Recorded Not on file documented as of this encounter Plan of Treatment Upcoming Encounters Date Type Specialty Care Team Description 12/09/2021 Comprehensive Visit Dermatology Radha Wright M.D. [address] [place], [place] [phone] (Wo rk) 12/26/2021 Procedure visit Dermatology Cristi Wright M.D. [address] [place], [place] [phone] (Wo rk) documented as of this encounter Procedures Procedure Name Priority Date/Time Associated Comments Diagnosis DERMATOLOGY IMAGE Routine 07/19/2020 2:50 PM Resu lts for this EXAM CDT procedure are i n the results section. documented in this encounter Results sternum 201-Dermatology Image Exam (07/19/2020 2:50 PM CDT) Specimen (Source) Anatomical Collection Method Collection Time Re ceived Time Location / / Volume Laterality 07/19/2020 2:48 PM CDT Narrative [facility] - 07/19/2020 2:50 PM CDT This order has been created [...]
--- OUTSIDE RECORDS SUMMARY | 2021-12-06 10:30 | XMS_ITS | Encounter Summary ---
:1940 Author Organization [facility] Address [address] [place] [address] Care Team Providers Name Role Phone Unavailable [...] or relatives? How often do you attend temple or More than 4 times per year 05/10/2021 synagogue services? Do you belong to any clubs or No 05/10/2021 organizations such as temple groups, unions, fraternal or athletic groups, or [...] place to sleep or slept in a custodial (including now)? Education Answer Date Recorded What is the highest level of school you have completed or 12 th grade 09/21/2020 the highest degree you have received? Sex Assigned at Date Recorded Not on file documented as of this encounter Plan of Treatment Upcoming Encounters Date Type Specialty Care Team Description 12/09/2021 Comprehensive Visit Dermatology Radha Wright M.D. [address] [place], [place] [phone] (Wo rk) 12/26/2021 Procedure visit Dermatology Cristi Wright M.D. [address] [place], [place] [phone] (Wo rk) documented as of this encounter Procedures Procedure Name Priority Date/Time Associated Comments Diagnosis DERMATOLOGY IMAGE Routine 11/30/2020 3:40 PM Resu lts for this EXAM CDT procedure are i n the results section. documented in this encounter Results sternum 201-Dermatology Image Exam (11/30/2020 3:40 PM CDT) Specimen (Source) Anatomical Collection Method [...]
--- OUTSIDE RECORDS SUMMARY | 2021-12-06 10:30 | XMS_ITS | Encounter Summary ---
:1940 Author Organization [facility] Address [address] [place] [address] Care Team Providers Name Role Phone Unavailable [...] or relatives? How often do you attend adventist or More than 4 times per year 05/10/2021 sikh services? Do you belong to any clubs or No 05/10/2021 organizations such as adventist groups, unions, fraternal or athletic groups, or [...] slept in a care home (including now)? Sex Assigned at Date Recorded Not on file documented as of this encounter Plan of Treatment Upcoming Encounters Date Type Specialty Care Team Description 12/09/2021 Comprehensive Visit Dermatology Radha Wright M.D. [address] [place], [place] [phone] (Wo rk) 12/26/2021 Procedure visit Dermatology Cristi Wright M.D. [address] [place], [place] [phone] (Wo rk) documented as of this encounter Procedures Procedure Name Priority Date/Time Associated Comments Diagnosis DERMATOLOGY IMAGE Routine 07/02/2020 12:05 Result s for this EXAM AM CDT procedure are i n the results section. documented in this encounter Results sternum 201 Mohs micrographic surgery-Dermatology Image Exam (07/02/2020 12:05 AM CDT) Specimen (Source) Anatomical Location Collection [...]
--- OUTSIDE RECORDS SUMMARY | 2021-12-06 10:31 | XMS_ITS | Encounter Summary ---
:1940 Author Organization [facility] Address [address] [place] [address] Care Team Providers Name Role Phone Unavailable Primary Care Provider Unavailable Encounter Details Date Type Department Care Team Description 02/05/2018 Clinical Communication Department of Lynn Mims Dermatology in [place], [place] [address] [facility] [address] [place] [phone] Social History Tobacco Use Types Packs/Day Years Used Date Smoking Tobacco: Former Smokeless Tobacco: Never Alcohol Habits Answer Date [...] More than 4 times per year 05/10/2021 presybeterian services? Do you belong to any clubs [...] place to sleep or slept in a correction (including now)? Sex Assigned at Date Recorded Not on file documented as of this encounter Miscellaneous Notes Telephone Encounter - Supriya Stern - 02/05/2018 3:06 PM CST ----- Message from Lynn Mims R.N. sent at 02/05/2018 2:32 PM MOTOR VEHICLES INSPECTOR ----- Regarding: RE: Move Up She can be moved to Mar.[address] Turner's [address] hold mohs slot. Thank you, Lynn ----- Message ----- From: Supriya Stern Sent: 02/05/2018 1:33 PM To: Rst Son[facility] Surg Case Coord, # Subject: Move Up A. ??DermPath Consult Wet Tissue; Left harrell, mid, Skin shave biopsy: ??Superficial portion of a dermal based cystic atypical squamous proliferation consistent with a invasive well-differentiated squamous cell carcinoma, ??transected at base COMMENT Clinical photo reviewed. ??This likely represents an infundibulocystic squamous cell carcinoma but the lack of epidermal connection raises the possibility of a metastatic lesion. ??Clinical and pathological correlation is recommended. Patient scheduled for 03-26-2018 for Mohs looking for move up. Thank you, Supriya R VEHICLES INSPECTOR documented in this encounter Plan of Treatment Upcoming Encounters Date Type Specialty Care Team Description 12/09/2021 Comprehensive Visit Dermatology Radha Wright M.D. [address] [place], [place] [phone] (Tomas delgado) 12/26/2021 Procedure visit Dermatology Cristi Wright M.D. [address] [place], [place] [phone] (Tomas delgado) documented as of this encounter Visit Diagnoses Not on filedocumented in this encounter
--- OUTSIDE RECORDS SUMMARY | 2021-12-06 10:31 | XMS_ITS | Encounter Summary ---
:1940 Author Organization [facility] Address [address] [place] [address] Care Team Providers Name Role Phone Unavailable Primary Care Provider Unavailable Reason for Visit Reason Comments Skin Check Appointment Request (Routine) - Closed Specialty Diagnoses / Procedures Referred By Contact Refer red To Contact Family Medicine Referral ID Status Reason Start Date Expiration Date Visits Requ ested Visits Authorized [id number] Closed 01/30/2019 01/30/2020 1 1 Encounter Details Date Type Department Care Team Description 02/03/2019 Office Visit Department of Carl Oneal, Deion Brown ple (Primary Dx); Dermatology in [facility]; [place], [place] [address] [facility] Keratosis Seborrheic; [address] [place] [address] Tumor [place] [phone] Social History Tobacco Use Types Packs/Day Years [...] or relatives? How often do you attend buddhism or More than 4 times per year 05/10/2021 episcopalian services? Do you belong to any clubs or No 05/10/2021 organizations such as buddhism groups, unions, fraternal or athletic groups, or [...] encounter Progress Notes Carl Oneal M.D. - 02/03/2019 1:15 PM CST SUBJECTIVE CHIEF COMPLAINT/REASON FOR VISIT Full skin cancer screening HISTORY OF PRESENT ILLNESS Ms. Darcy Colon is a 78 y.o. 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 She denies a personal or family history for melanoma. The patient uses sunscreen. She has no other concerns today. No Known Allergies MEDICAL HISTORY 1. 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 Turner at [facility] 2. Multiple non-melanoma skin cancers treated elsewhere 3. Negative for melanoma FAMILY HISTORY Negative for melanoma OBJECTIVE PHYSICAL EXAMINATION General: Awake, alert, in no acute distress, and with appropriate affect. Eyes: No scleral injection or icterus. No eyelid abnormalities. Lymph: No lower extremity edema. Skin: I have examined the scalp, face, neck, chest, abdomen, back, bilateral upper extremities, and bilateral lower extremities. My nurse (Nga) served as a piping engineer for the entirety of the exam. Examination of the left mid-harrell reveals some post-inflammatory hyperpigmentation with no evidence for recurrence of squamous cell carcinoma. Examination of the right cheek reveals a 1.85 cm x 1.7 cm brown annular patch, compatible with a benign lentigo or seborrheic keratosis. Examination of the left mid-central back reveals a 3 cm x 1.6 cm nevus spilus. Examination of the left cheek reveals actinic keratoses x2. Examination of the chest reveals actinic keratoses x4. Examination of the face, trunk and extremities reveals multiple benign-appearing nevi, lentigines and seborrheic keratoses. Examination of the right upper arm reveals a 4 mm x 2.5 mm brown nevus with asymmetry. ASSESSMENT/PLAN #1 Left cheek and chest: Actinic keratosis x6 CONSENT Discussed the risks, benefits, alternatives, and the necessity of other members of the healthcare team participating in the procedure. All questions answered and consent given. PROCEDURE INFORMATION Given the precancerous nature of this lesion(s), treatment is medically indicated. After discussion of the risks, benefits and alternatives to treatment with cryotherapy, informed consent was obtained.We treated a total of 2 lesion(s) involving the left cheek with two 5-10-second freeze-thaw cycles of liquid nitrogen cryotherapy and 4 remaining lesion(s) with two [id number] freeze-thaw cycles of liquid nitrogen cryotherapy. The patient tolerated the procedure well. Aftercare instructions were provided in written and verbal form to the patient. Should any of these lesions recur, the patient should return for biopsy or further evaluation. Follow up in 1-2 months for recheck if these areas do not complete resolve. #2 Right upper arm: Rule out atypical nevus I advised a return to the procedure clinic on 06/03/19 for a 6-mm punch biopsy. We initially discussedcoming back in February for the procedure, however the patient will be going to [place] for the winter. I did offer the patient an appointment time on 02/18/19, though she declined. Photographs were taken today with the patient's verbal consent. #3 Face, trunk and extremities: Multiple nevi and lentigines The ABCDE criteria for melanoma was reviewed with the patient. None of the patient's other nevi reach the clinical threshold for biopsy. I recommend continued sun protection, self-skin examinations, and observation. Should any of the patient's nevi change in size, color, texture, or shape or develop symptoms such as itching or bleeding, I recommend an immediate return visit for reassessment. Follow up in 6 months or immediately if any new or changing lesions are noted. #4 Face, trunk and extremities: Seborrheic keratosis The benign nature of the skin lesion(s) was discussed with the patient. No treatment is required. I recommend continued observation. Should symptoms or changes develop related to this condition, I would recommend a return visit for reassessment. #5 Left mid-harrell: History of invasive well-differentiated squamous cell carcinoma, status post Mohs surgery on 03/04/[address] Turner at [facility] No clinical evidence of local recurrence today. Recommended monthly self-skin examinations to evaluate for new, changing, symptomatic, or otherwise worrisome lesions. Signs and symptoms of skin cancer discussed. Photoprotection was recommended. Return to Dermatology in 6-12 months for a full skin examor immediately if any new or changing lesions are noted. PATIENT EDUCATION: Ready to learn. No apparent learning barriers were identified. Learning preferences include listening. Explained diagnosis and treatment plan; patient/guardian of patient expressed understanding of thecontent. By signing my name below, I, Fredis Brizuela, attest that this documentation has been prepared under thedirection and in the presence of Carl Oneal M.D. Electronically Signed: reynaldo Schulte. 02/03/2019. 11:45 AM. ICarl M.D., personally performed the services described in this documentation. All medical record entries made by the scribe were at my direction and in my presence. I have reviewed the chart and discharge instructions (if applicable) and agree that the record reflects my personal performance and is accurate and complete. Carl Oneal M.D. . 02/03/2019. 2:42 PM. CLEANING COOKING documented in this encounter Plan of Treatment Upcoming Encounters Date Type Specialty Care Team Description 12/09/2021 Comprehensive Visit Dermatology Radha Wright M.D. [address] [place] [phone] (Wo rk) 12/26/2021 Procedure visit Dermatology Cristi Wright M.D. [address] [place] [phone] (Wo rk) Scheduled Orders Name Type Priority Associated Diagnoses Order S chedule Dermatology misc minor Dermatology Routine Nevi Multiple Expe cted: 06/03/2019 procedure (Approximate), Expires: 2021 documented as of this encounter Visit Diagnoses Diagnosis Nevi Multiple - Primary Keratosis Actinic Keratosis Seborrheic Tumor Skin Uncertain Behavior documented in this encounter
--- OUTSIDE RECORDS SUMMARY | 2021-12-06 10:31 | XMS_ITS | Encounter Summary ---
:1940 Author Organization [facility] Address [address] [place] [address] Care Team Providers Name Role Phone Unavailable Primary Care Provider Unavailable Encounter Details Date Type Department Care Team Description 06/01/2020 Orders Only Department of Carl Oneal Encounter For Preprocedural Laboratory Examination (COVID-19) (Primary Dx); Dermatology in N, M.D. 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 How often do you attend latter-day or More than 4 times per year 05/10/2021 quaker services? Do you belong to any clubs or No 05/10/2021 organizations such as latter-day groups, unions, fraternal or athletic groups, or [...] or slept in a halfway (including now)? Sex Assigned at Date Recorded Not on file documented as of this encounter Plan of Treatment Upcoming Encounters Date Type Specialty Care Team Description 12/09/2021 Comprehensive Visit Dermatology Radha Wright M.D. [address] [place], [place] [phone] (Wo rk) 12/26/2021 Procedure visit Dermatology Cristi Wright M.D. [address] [place], [place] [phone] (Wo rk) documented as of this encounter Results SARS CoV-2 RNA, PCR, Varies Asymptomatic (06/30/2020 12:17 PM CDT) [facility] Method Time Signature SARS CoV-2 Swab, 06/30/2020 DTL RNA, PCR, Nasopharynx 5:29 PM CDT Source SARS CoV-2 Undetected Undetected 06/30/2020 DTL RNA, PCR 5:29 PM CDT Comment: SARS-CoV-2 RNA absent. This result does not rule out COVID-19 in the patient, as the sensitivity of the test depends o n the timing of the specimen collection and quality of the specimen. Result should be correlated with patient's history and clinical presentat ion. ----ADDITIONAL INFORMATION---- This RT-PCR test has received Emergency Use Authorization (EUA) by the U.S. Food and Drug Administration an d is used per red cap's instructions. Performance characteristics were verified by [facility] in a manner consistent with CLIA requirements. Visit the CDC website: https://www.cdc.g ov/coronavirus/ for the most recent guidelines on Coron avirus testing. Fact Sheet for Healthcare Providers: https://www.fda.gov/media/401416/downloa d Fact Sheet for Patients: https://www.fda.gov/media/695962/downloa d Specimen Anatomical Collection Method Collection Time Receive d Time (Source) Location / / Volume Laterality Varies 06/30/2020 12:17 06/30/2020 (Nasopharynx) PM CDT 12:53 PM CDT Carl Oneal M.D. 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
--- OUTSIDE RECORDS SUMMARY | 2021-12-06 10:31 | XMS_ITS | Encounter Summary ---
:1940 Author Organization [facility] Address [address] [place] [address] Care Team Providers Name Role Phone Unavailable Primary Care Provider Unavailable Encounter Details Date Type Department Care Team Description 04/21/2020 Orders Only [facility] PCP TH Sa marisol Garrido M.D. [address] [place], [place] [phone] (Wo rk) Social History [...] or relatives? How often do you attend spiritism or More than 4 times per year 05/10/2021 nondenominational services? Do you belong to any clubs or No 05/10/2021 organizations such as spiritism groups, unions, fraternal or athletic groups, or [...] or slept in a custodial (including now)? Sex Assigned at Date Recorded Not on file documented as of this encounter Plan of Treatment Upcoming Encounters Date Type Specialty Care Team Description 12/09/2021 Comprehensive Visit Dermatology Radha Wright M.D. [address] [place], [place] [phone] (Wo rk) 12/26/2021 Procedure visit Dermatology Cristi Wright M.D. [address] [place], [place] [phone] (Wo rk) documented as of this encounter Visit Diagnoses Not on filedocumented in this encounter
--- OUTSIDE RECORDS SUMMARY | 2021-12-06 10:31 | XMS_ITS | Encounter Summary ---
:1940 Author Organization [facility] Address [address] [place] [address] Care Team Providers Name Role Phone Unavailable Primary Care Provider Unavailable Reason for Visit Reason Comments Biopsy Encounter Details Date Type Department Care Team Description 01/21/2018 Procedure visit Department of Carl Oneal Tumor Skin Uncertain Behavior (Primary Dx); Dermatology in Malcolm Monsivais M.D. [place], [place] [address] [phone] Social History Tobacco Use Types Packs/Day Years [...] or relatives? How often do you attend jewish or More than 4 times per year 05/10/2021 sabianist services? Do you belong to any clubs or No 05/10/2021 organizations such as jewish groups, unions, fraternal or athletic groups, or [...] place to sleep or slept in a senior care (including now)? Sex Assigned at Date Recorded Not on file documented as of this encounter Progress Notes Carl Oneal M.D. - 01/21/2018 3:45 PM CST CHIEF COMPLAINT Return for biopsies of the left mid harrell and left distal anterior harrell HISTORY OF THE PRESENT ILLNESS Darcy Colon is a pleasant 77 y.o. female who follows up for shave biopsy of the left mid harrell to rule out basal cell carcinoma, as well as a shave biopsy of the left distal anterior harrell to rule out atypical nevus versus seborrheic keratosis. 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 Skin: Examination of the left mid harrell reveals a 1 cm x 1 cm pearly, purple nodule concerning for nodular basal cell carcinoma. Examination of the the left distal anterior harrell reveals a 7 mm x 6.5 mm brown nevus with slight asymmetry. IMPRESSION AND PLAN #1 Left harrell (left mid harrell, site A): Rule out basal cell carcinoma versus prurigo nodule We recommend a shave biopsy of a portion of the left ahrrell (left mid harrell, site A). Photograph taken today with patient's verbal consent. We will correspond as to the results and if any further treatment is needed. We discussed that if dermatopathology reports a basal cell carcinoma, the patient may undergo treatment with curettage and cryotherapy or I will refer the patient to [facility] for Mohssurgery. The procedural details of the Mohs surgery was fully explained and the patient understands.Of note, the patient leaves the area for the winter season on 03/09/18. PROCEDURAL PAUSE Procedural pause conducted to verify: correct patient identity, procedure to be performed, and as applicable, correct side and site, correct patient position, and availability of implants, special equipment, or special requirements. PROCEDURE DETAILS Shave biopsy. We explained the potential diagnosis and recommended that we obtain a biopsy. The risks and benefitsof the procedure were discussed, and the patient consented to these procedures. The patient denies any allergies to local anesthetics. Using 1% lidocaine with epinephrine for local anesthesia, a shave biopsy was obtained from the left harrell (left mid harrell, site A). Biopsy submitted to Dermatopathology for H&E. Special stains will be performed as indicated. The bleeding was well controlled with application of aluminum chloride. Dressing was applied, and wound care instructions were explained. Biopsy results and any further recommendations will be communicated to the patient by letter. Patient given pamphlet [id number]. Discussed the risks, benefits, alternatives, and the necessity of other members of the healthcare team participating in the procedure. All questions answered and consent given. #2 Left harrell (left distal anterior harrell, site B): Rule out seborrheic keratosis versus atypical nevus We recommend a shave biopsy of the left harrell (left distal anterior harrell, site B). Photograph taken today with patient's verbal consent. We will correspond as to the results and if any further treatmentis needed. PROCEDURAL PAUSE Procedural pause conducted to verify: correct patient identity, procedure to be performed, and as applicable, correct side and site, correct patient position, and availability of implants, special equipment, or special requirements. PROCEDURE DETAILS Shave biopsy. We explained the potential diagnosis and recommended that we obtain a biopsy. The risks and benefitsof the procedure were discussed, and the patient consented to these procedures. The patient denies any allergies to local anesthetics. Using 1% lidocaine with epinephrine for local anesthesia, a shave biopsy was obtained from the left harrell (left distal anterior harrell, site B). Biopsy submitted to Dermatopathology for H&E. Special stains will be performed as indicated. The bleeding was well controlled with application of aluminum chloride. Dressing was applied, and wound care instructions were explained. Biopsy results and any further recommendations will be communicated to the patient by letter.Patient given pamphlet [id number]. Discussed the risks, benefits, alternatives, and the necessity of other members of the healthcare team participating in the procedure. All questions answered and consent given. PATIENT EDUCATION Ready to learn. No apparent learning barriers were identified. Learning preferences include listening. Explained diagnosis and treatment plan; patient/guardian of patient expressed understanding of thecontent. By signing my name below, I, Leilani G All, attest that this documentation has been prepared under the direction and in the presence of Carl Oneal M.D.. Electronically Signed: reynaldo Ca. 01/21/2018. 4:08 PM . I, Carl Oneal M.D., personally performed the services described in this documentation. All medical record entries made by the scribe were at my direction and in my presence. I have reviewed the chart and discharge instructions (if applicable) and agree that the record reflects my personal performance and is accurate and complete. Carl Oneal M.D. . 01/21/2018. 5:26 PM. MECHANIC documented in this encounter Plan of Treatment Upcoming Encounters Date Type Specialty Care Team Description 12/09/2021 Comprehensive Visit Dermatology Radha Wright M.D. [address] [place], [place] [phone] (Wo rk) 12/26/2021 Procedure visit Dermatology Cristi Wright M.D. [address] [place], [place] [phone] (Wo rk) documented as of this encounter Procedures Procedure Name Priority Date/Time Associated Comments Diagnosis DERMATOPATHOLOGY CONSULT Routine 01/21/2018 4:13 Tumor Skin Results for this PM [facility] Uncertain Behavior procedure are in the results section. documented in this encounter Results Dermatopathology Consult (01/21/2018 4:13 PM JET MECHANIC) Component Value Ref Test Analysis Performed At [facility] Range Method Time Signature 01/25/2018 [facility] 3:34 PM LABORATORIES - [facility] Report Joe Triana 01/25/2018 [facility] electronically Jacqueline Helton 3:34 PM LABORATOR IES - signed by [facility] Gross A: ?? Received in formalin labeled with the patient's name , 01/25/2018 [facility] Description: medical record number, and left harrell, mid is a 0.9 x 0.4 3:34 PM LABORATORIES - x 0.1 cm pale holt skin shave biopsy. ??Involving nearly th e [facility] entire skin surface is a 0.8 x 0.3 cm holt-rosales, slightly CAMPUS raised, firm lesion. ??The specimen is bisected longitudinally and submitted entirely in cassette A1. Grossed by VANDANA B: ?? Received in formalin labeled with the patient's name, medical record number, and left harrell, anterior distal is a 1.3 x 0.9 x 0.1 cm pale holt skin shave biopsy. Eccentrically located and abutting the periphery of the skin surface is a 0.9 x 0.8 cm brown-holt pigmented lesion with irregular borders. ??The specimen is serially sectioned and submitted entirely in cassette B1. Grossed by Addendum Deeper serial sections on part A reveal a definite 02/01/2018 [facility] connection of the dermal squamous cell carcinoma with the 1:48 PM LABORATORIES - overlying epidermis, consistent with a primary squamous [facility] cell carcinoma of the skin CAM [facility] Signed by Kirill Puri M.D. 02/01/2018 1:48 PM Comment: REVISED RESULTS Interpetation REVISION DESCRIPTION 02/01/2018 1:48 PM [facility] Revised to add margins to diagnosis. ??Underlining in the [facility] LABORATORIES - PDF report indicates revision. [facility] A. ??DermPath Consult Wet Tissue; Left harrell, mid, Skin shave biopsy: ??Superficial portion of a dermal based cystic atypical squamous proliferation consistent with a invasive well-differentiated squamous cell carcinoma, ??transected at base COMMENT Clinical photo reviewed. ??This likely represents an infundibulocystic squamous cell carcinoma but the lack of epidermal connection raises the possibility of a metastatic lesion. ??Clinical and pathological correlation is recommended. B. ??DermPath Consult Wet Tissue; Left harrell, anterior distal, Skin shave biopsy: ??Lentigo/macular seborrheic keratosis COMMENT Clinical photo reviewed. Comment: REVISED RESULTS ----PREVIOUSLY REPORTED ---- FINAL DIAGNOSIS A. ??DermPath Consult Wet Tissue; Left s hin, mid, Skin shave biopsy: ??Superficial portion of a derma l based cystic atypical squamous proliferation consiste nt with a invasive well-differentiated squamous cell carcin noy COMMENT Clinical photo reviewed. ??This likely r epresents an infundibulocystic squamous cell carcinom a but the lack of epidermal connection raises the possibil ity of a metastatic lesion. ??Clinical and pathological nav elation is recommended. B. ??DermPath Consult Wet Tissue; Left s hin, anterior distal, Skin shave biopsy: ??Lentigo/mac ular seborrheic keratosis COMMENT Clinical photo reviewed., Flagged as: ?? (Reported 01/25/2018 13:54) Specimen Anatomical Collection Method Collection Time Receive d Time (Source) Location / / Volume Laterality Tissue 01/21/2018 4:13 PM 8 9:28 JET MECHANIC AM JET MECHANIC Narrative This result has an attachment that is no t available. Carl Oneal M.D. LAB PATH DERM ORDERABLES Performing Organization Address City/State/ZIP Code Phon e Number [facility]ATORIES - [address] documented in this encounter Visit Diagnoses Diagnosis Tumor Skin Uncertain Behavior - Primary Nevi Multiple documented in this encounter Administered Medications Inactive Administered Medications - up to 3 most recent administrations Medication Order MAR Action Action Date Dose Rate Site lidocaine-EPINEPHrine 1 %-1:100,000 Given 01/21/2018 4:15 PM JET MECHANIC 2 mL injection 2 mL (XYLOCAINE W/EPI) 2 mL, infiltration, Once, On 01/21/18 at 1615, For 1 dose documented in this encounter
--- OUTSIDE RECORDS SUMMARY | 2021-12-06 10:31 | XMS_ITS | Encounter Summary ---
:1940 Author Organization [facility] Address [address] [place] [address] Care Team Providers Name Role Phone Unavailable Primary Care Provider Unavailable Encounter Details Date Type Department Care Team Description 02/03/2018 Clinical Communication Department of Carl Oneal, Dermatology in [place], [place] [address] [facility] [address] [place] [phone] Social History Tobacco Use Types Packs/Day Years [...] or relatives? How often do you attend quaker or More than 4 times per year 05/10/2021 taoist services? Do you belong to any clubs or No 05/10/2021 organizations such as quaker groups, unions, fraternal or athletic groups, or [...] place to sleep or slept in a jail (including now)? Sex Assigned at Date Recorded Not on file documented as of this encounter Miscellaneous Notes Telephone Encounter - Carl Oneal M.D. - 02/03/2018 4:17 PM CST I called Ms. Colon and left a message on her voicemail asking her to call me back tomorrow at [facility] to discuss biopsy results. 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 [address] [place], [place] [phone] (Tomas delgado) 12/26/2021 Procedure visit Dermatology Cristi Wright M.D. [address] [place], [place] [phone] (Wo danny) documented as of this encounter Visit Diagnoses Not on filedocumented in this encounter
--- OUTSIDE RECORDS SUMMARY | 2021-12-06 10:31 | XMS_ITS | Encounter Summary ---
:1940 Author Organization [facility] Address [address] [place] [address] Care Team Providers Name Role Phone Unavailable Primary Care Provider Unavailable Encounter Details Date Type Department Care Team Description 03/04/2018 Ancillary Procedure Department of Dermatology Social History [...] many times do you More than three emdond es a week 05/10/2021 talk on the phone with family, friends, or neighbors? How often do you get together with friends More than three t imes a week 05/10/2021 or relatives? How often do you attend orthodoxy or More than 4 times per year 05/10/2021 baptist services? Do you belong to any clubs or No 05/10/2021 organizations such as orthodoxy groups, unions, fraternal or athletic groups, or [...] Visit Dermatology Radha Wright M.D. [address] [place], [place] [phone] (Wo rk) 12/26/2021 Procedure visit Dermatology Cristi Wright M.D. [address] [place], [place] [phone] (Wo rk) documented as of this encounter Procedures Procedure Name Priority Date/Time Associated Comments Diagnosis DERMATOLOGY IMAGE Routine 03/04/2018 12:00 Result s for this EXAM PM MATERNITY FLOOR SUPERVISOR procedure are i n the results section. documented in this encounter Results DERMATOLOGY IMAGE EXAM (03/04/2018 12:00 PM MATERNITY FLOOR SUPERVISOR) Specimen (Source) Anatomical Collection Method Collection Time Re ceived Time Location / / Volume Laterality 03/04/2018 12:00 PM MATERNITY FLOOR SUPERVISOR Narrative [facility] - 03/04/2018 1:04 PM MATERNITY FLOOR SUPERVISOR This order has been created and auto-finalized [...]
--- OUTSIDE RECORDS SUMMARY | 2021-12-06 10:31 | XMS_ITS | Encounter Summary ---
:1940 Author Organization [facility] Address [address] [place] [address] Care Team Providers Name Role Phone Unavailable Primary Care Provider Unavailable Encounter Details Date Type Department Care Team Description 05/25/2020 Ancillary Procedure Department of Dermatology Social History [...] or relatives? How often do you attend sabianism or More than 4 times per year 05/10/2021 anabaptist services? Do you belong to any clubs or No 05/10/2021 organizations such as sabianism groups, unions, fraternal or athletic groups, or [...] Visit Dermatology Radha Wright M.D. [address] [place], [place] [phone] (Wo rk) 12/26/2021 Procedure visit Dermatology Cristi Wright M.D. [address] [place], [place] [phone] (Wo rk) documented as of this encounter Procedures Procedure Name Priority Date/Time Associated Comments Diagnosis DERMATOLOGY IMAGE Routine 05/25/2020 10:19 Result s for this EXAM AM CDT procedure are i n the results section. documented in this encounter Results sternum 201-Dermatology Image Exam (05/25/2020 10:19 AM CDT) Specimen (Source) Anatomical Collection Method Collection Time Re ceived Time Location / / Volume Laterality 05/25/2020 10:17 AM CDT Narrative [facility] - 05/25/2020 10:19 AM CDT This order has been created and [...]
--- OUTSIDE RECORDS SUMMARY | 2021-12-06 10:31 | XMS_ITS | Encounter Summary ---
:1940 Author Organization [facility] Address [address] [place] [address] Care Team Providers Name Role Phone Unavailable [...] or relatives? How often do you attend sikhism or More than 4 times per year 05/10/2021 sabianist services? Do you belong to any clubs or No 05/10/2021 organizations such as sikhism groups, unions, fraternal or athletic groups, or [...] Visit Dermatology Radha Wright M.D. [address] [place], [place] [phone] (Wo rk) 12/26/2021 Procedure visit Dermatology Cristi Wright M.D. [address] [place], [place] [phone] (Wo rk) documented as of this encounter Procedures Procedure Name Priority Date/Time Associated Comments Diagnosis DERMATOLOGY IMAGE Routine 05/25/2020 10:19 Result s for this EXAM AM CDT procedure are i n the results section. documented in this encounter Results lower extremity, left anterior harrell 407-Dermatology Image Exam (05/25/2020 10:19 AM CDT) Specimen (Source) Anatomical Collection Method Collection Time Re ceived Time Location / / Volume Laterality 05/25/2020 10:16 AM CDT Narrative [facility] - 05/25/2020 10:19 [...]
--- OUTSIDE RECORDS SUMMARY | 2021-12-06 10:31 | XMS_ITS | Encounter Summary ---
:1940 Author Organization [facility] Address [address] [place] [address] Care Team Providers Name Role Phone Unavailable Primary Care Provider Unavailable Encounter Details Date Type Department Care Team Description 02/04/2018 Orders Only Department of Carl Oneal, Malignant Neoplasm Of Dermatology in [place] Jacqueline Lower [place]imb [place], [place] [address] [facility] Cell Carcinoma Left [address] [place] [address] (Primary Dx) [place] [phone] Social History Tobacco Use Types Packs/Day [...] More than 4 times per year 05/10/2021 hinduism services? Do you belong to any clubs [...] [address] [place], [place] [phone] (Wo rk) Scheduled Orders Name Type Priority Associated Diagnoses Order S chedule SONU MOHS 1-4 sites Dermatology Routine Malignant Neoplasm Of Expected: 02/04/2018 Lower Limb Squamous Cell (Ap proximate), Carcinoma Left Expires: 01/26 documented as of this encounter Visit Diagnoses Diagnosis Malignant Neoplasm Of Lower Limb Squamou s Cell Carcinoma Left - Primary documented in this encounter
--- OUTSIDE RECORDS SUMMARY | 2021-12-06 10:31 | XMS_ITS | Encounter Summary ---
:1940 Author Organization [facility] Address [address] [place] [address] Care Team Providers Name Role Phone Unavailable Primary Care Provider Unavailable Encounter Details Date Type Department Care Team Description 01/07/2018 Ancillary Procedure Department of Dermatology Social History [...] or relatives? How often do you attend confucianist or More than 4 times per year 05/10/2021 mu-ism services? Do you belong to any clubs or No 05/10/2021 organizations such as confucianist groups, unions, fraternal or athletic groups, or [...] place to sleep or slept in a group home (including now)? Sex Assigned at Date Recorded Not on file documented as of this encounter Plan of Treatment Upcoming Encounters Date Type Specialty Care Team Description 12/09/2021 Comprehensive Visit Dermatology Radha Wright M.D. [address] [place], [place] [phone] (Wo rk) 12/26/2021 Procedure visit Dermatology Cristi Wright M.D. [address] [place], [place] [phone] (Wo rk) documented as of this encounter Procedures Procedure Name Priority Date/Time Associated Comments Diagnosis DERMATOLOGY IMAGE Routine 01/07/2018 1:27 PM Resu lts for this EXAM CONSULTING SALES EXECUTIVE procedure are i n the results section. documented in this encounter Results DERMATOLOGY IMAGE EXAM (01/07/2018 1:27 PM CONSULTING SALES EXECUTIVE) Specimen (Source) Anatomical Collection Method Collection Time Re ceived Time Location / / Volume Laterality 01/07/2018 1:25 PM CONSULTING SALES EXECUTIVE Narrative [facility] - 01/07/2018 1:27 PM CONSULTING SALES EXECUTIVE This order has been created and auto-finalized [...]
--- OUTSIDE RECORDS SUMMARY | 2021-12-06 10:31 | XMS_ITS | Encounter Summary ---
:1940 Author Organization [facility] Address [address] [place] [address] Care Team Providers Name Role Phone Unavailable Primary Care Provider Unavailable Encounter Details Date Type Department Care Team Description 02/01/2018 Clinical Communication Department of [facility] Senthil Oneal, Medicine, [facility], in [address] [address] [place], [place] [phone] (Work) [phone] Social History Tobacco Use Types Packs/Day Years [...] or slept in a mcc (including now)? Sex Assigned at Date Recorded Not on file documented as of this encounter Miscellaneous Notes Telephone Encounter - Sujatha Sultana - 02/01/2018 10:24 AM CST Darcy would like the results of her biopsy. [phone]. 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 [address] [place], [place] [phone] (Tomas delgado) 12/26/2021 Procedure visit Dermatology Cristi Wright M.D. [address] [place], [place] [phone] (Tomas delgado) documented as of this encounter Visit Diagnoses Not on filedocumented in this encounter
--- OUTSIDE RECORDS SUMMARY | 2021-12-06 10:31 | XMS_ITS | Encounter Summary ---
:1940 Author Organization [facility] Address [address] [place] [address] Care Team Providers Name Role Phone Unavailable Primary Care Provider Unavailable Reason for Referral Outpatient (Routine) - Closed Specialty Diagnoses / Procedures Referred By Contact Refer red To Contact Dermatology Diagnoses Squamous Cell Carcinoma In Situ Carl Oneal M.D. [facility] Procedures [facility] 1-[address] [place] [phone] Referral ID Status Reason Start Date Expiration Date Visits Requ ested Visits Authorized [id number] Closed 06/02/2020 06/02/2021 1 1 Encounter Details Date Type Department Care Team Description 06/02/2020 Orders Only Department of Carl Oneal, Malignant Neoplasm Of Trunk Squamous Cell (Primary Dx); Dermatology in [place] Squamous Cell Carcinoma In Situ [place], [place] [address] [facility] [address] [place] [phone] Social History Tobacco Use Types Packs/Day Years [...] or relatives? How often do you attend anabaptism or More than 4 times per year 05/10/2021 latter day services? Do you belong to any clubs or No 05/10/2021 organizations such as anabaptism groups, unions, [employer] or athletic groups, or school groups? How [...] place to sleep or slept in a fpc (including now)? Sex Assigned at Date Recorded Not on file documented as of this encounter Plan of Treatment Upcoming Encounters Date Type Specialty Care Team Description 12/09/2021 Comprehensive Visit Dermatology Radha Wright M.D. [address] [place], [place] [phone] (Wo danny) 12/26/2021 Procedure visit Dermatology Cristi Wright M.D. [address] [place], [place] [phone] (Wo danny) documented as of this encounter Results [facility] 1-4 sites (07/02/2020 8:00 AM CDT) Narrative Cristi Wright M.D. - 07/02/2020 8:00 AM CDT Praveen Case III, M.D. ? 07/05/2020 ??9:18 AM PREOP INDICATION: REMOVAL. Date of Surgery: ??07/02/20 Surgeon: Dr. Wright Architectural Drafting Instructor: Dr. Case Location: [place] ?? Bldg:GO ?? Floor: 16 ?? Room:DERMPR Visit Type: Outpatient PostOp Diagnosis: ??Squamous cell carcin noy, grade II Anatomic Location: ??Upper central cook um Preoperative size: ??1.9 x 1.8 cm [facility] number: [id number] Indication(s) for Mohs Micrographic [...] - Primary Squamous Cell Carcinoma In Situ Malignant Neoplasm Of Trunk Squamous Margaret l - Primary Squamous Cell Carcinoma In Situ documented in this encounter
--- OUTSIDE RECORDS SUMMARY | 2021-12-06 10:31 | XMS_ITS | Encounter Summary ---
:1940 Author Organization [facility] Address [address] [place] [address] Care Team Providers Name Role Phone Unavailable [...] or relatives? How often do you attend cheondoism or More than 4 times per year 05/10/2021 orthodox services? Do you belong to any clubs or No 05/10/2021 organizations such as cheondoism groups, unions, fraternal or athletic groups, or [...] Visit Dermatology Radha Wright M.D. [address] [place], [place] [phone] (Wo rk) 12/26/2021 Procedure visit Dermatology Cristi Wright M.D. [address] [place], [place] [phone] (Wo rk) documented as of this encounter Procedures Procedure Name Priority Date/Time Associated Comments Diagnosis DERMATOLOGY IMAGE Routine 01/07/2018 1:25 PM Resu lts for this EXAM MOTORCOACH OPERATOR procedure are i n the results section. documented in this encounter Results DERMATOLOGY IMAGE EXAM (01/07/2018 1:25 PM MOTORCOACH OPERATOR) Specimen (Source) Anatomical Collection Method Collection Time Re ceived Time Location / / Volume Laterality 01/07/2018 1:25 PM MOTORCOACH OPERATOR Narrative [facility] - 01/07/2018 1:27 PM MOTORCOACH OPERATOR This order has been created and auto-finalized [...]
--- OUTSIDE RECORDS SUMMARY | 2021-12-06 10:31 | XMS_ITS | Encounter Summary ---
:1940 Author Organization [facility] Address [address] [place] [address] Care Team Providers Name Role Phone Unavailable Primary Care Provider Unavailable Reason for Referral Outpatient (Routine) - Closed Specialty Diagnoses / Procedures Referred By Contact Refer red To Contact Dermatology Diagnoses Nevi Multiple Carl Oneal M.D. [facility] Procedures Dermatology misc minor procedure [address] [place], [place] [phone] Referral ID Status Reason Start Date Expiration Date Visits Requ ested Visits Authorized [id number] Closed 01/27/2020 01/26/2021 1 1 NESS SUPPORT ASSISTANT Reason for Visit Reason Comments Follow-up Encounter Details Date Type Department Care Team Description 01/27/2020 Procedure visit Department of Carl Oneal ple (Primary Dx); Dermatology in Malcolm Monsivais M.D. Keratosis Actinic; [place], [place] [address] [facility] Keratosis Seborrheic [address] [place] [phone] Social History Tobacco Use Types Packs/Day Years [...] or relatives? How often do you attend mormon or More than 4 times per year 05/10/2021 muslim services? Do you belong to any clubs or No 05/10/2021 organizations such as mormon groups, [employer], [employer] or athletic groups, or school groups? How [...] or slept in a half-way (including now)? Sex Assigned at Date Recorded Not on file documented as of this encounter Progress Notes Carl Oneal M.D. - 01/27/2020 10:15 AM CST SUBJECTIVE CHIEF COMPLAINT / REASON FOR VISIT Punch biopsy of nevus involving the right upper arm Recheck multiple nevi x 2 HISTORY OF PRESENT ILLNESS Darcy Colon is a pleasant 79 y.o. female who follows up for a 6 mm punch biopsy of a nevus involving the right upper arm, rule out atypical nevus and a recheck of multiple nevi x 2 involving the right cheek and left mi-central back. The patient was last seen by me in Dermatology clinic on 02/03/2019 and a photo of the nevus involving the right upper arm was taken and we felt the nevi involving the right cheek and left mid-central back were benign on clinical exam and dermoscopy. Today she denies any changes to these nevi since her previous visit in Dermatology clinic. Additionally she would like an evaluation of several lesions involving her face, sternum, and left lateral neck. MEDICAL HISTORY 1. 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 Turner at [facility] 3. Negative for melanoma ?? FAMILY HISTORY Negative for melanoma OBJECTIVE PHYSICAL EXAMINATION General: Awake, alert, in no acute distress, and with appropriate affect. Skin: Limited skin exam done today from the waist up. My scribe Mel was present for the limited exam. Examination of the right cheek reveals a 1.9 cm x 2.1 cm brown annular patch, compatible with a benign lentigo or seborrheic keratosis. Examination of the left mid-central back reveals a 4 cm x 1.7 cm nevus spilus. Examination of the right upper arm reveals a 4 mm x 2.5 mm brown nevus with asymmetry. Examination of the left upper lateral neck reveals a 4 x 3 mm erythematous scaly macule, probable AK. Examination of the right eyebrow reveals a pigmented AK. Examination of the left lower forehead reveals a 6.5 x 2.5 mm uniformly pigmented light brown maculeand represents a flat SK vs lentigo. Examination of the upper central sternum reveals a 1 x 0.5 cm light brown scaly slighted irritated SK. Examination of the left collarbone reveals an SK. ASSESSMENT / PLAN #1 Right upper arm: Rule out atypical nevus Patient deferred biopsy again and prefers to continue to monitor at this time. She does understand that I cannot rule out an atypical nevus but prefers to follow-up clinically. She will make an appointment and return at the end of April 2019 as she will be traveling to [place] for the winter. At that time we will reconsider a biopsy and will also perform a full skin cancer screening exam. #2 Right cheek, left mid central back: Benign appearing nevi and lentigines The benign nature of the skin lesion(s) was discussed with the patient. No treatment is required at this time. I recommend continued observation. Should symptoms or changes develop related to this condition, I would recommend a return visit for reassessment. Follow up in 3 months for recheck of these l esions. #3 Left upper lateral neck, right eyebrow : Actinic keratosis x 2 lesions Given the precancerous nature of this lesion(s), treatment is medically indicated. After discussion of the risks, benefits and alternatives to treatment with cryotherapy, informed consent was obtained.We treated a total of 2 lesion(s) with two 10 -second freeze-thaw cycles of liquid nitrogen cryotherapy. The patient tolerated the procedure well. Aftercare instructions were provided in written and verbal form to the patient. Should any of these lesions recur, the patient should return for biopsy or further evaluation. Discussed the risks, benefits, alternatives, and the necessity of other members of the healthcare team participating in the procedure. All questions answered and consent given. #4 Left lower forehead, upper central sternum, left collarbone: Seborrheic keratosis The benign nature of the skin lesion(s) was discussed with the patient. No treatment is required. I recommend continued observation. Should symptoms or changes develop related to this condition, I would recommend a return visit for reassessment. Additionally I have asked her to apply Vaseline to the irritated SK involving the left upper central sternum. If not resolved in 3-4 weeks follow up for re-evaluation and possible biopsy. PATIENT EDUCATION: Ready to learn. No apparent learning barriers were identified. Learning preferences include listening. Explained diagnosis and treatment plan; patient/guardian of patient expressed understanding of thecontent. By signing my name below, I, Alice Sparks, attest that this documentation has been prepared underthe direction and in the presence of Carl Oneal M.D. Electronically Signed: reynaldo Luna. 01/26. ICarl M.D., personally performed the services described in this documentation. All medical record entries made by the scribe were at my direction and in my presence. I have reviewed the chart and discharge instructions (if applicable) and agree that the record reflects my personal performance and is accurate and complete. Carl Oneal M.D. 01/26. NESS SUPPORT ASSISTANT documented in this encounter Plan of Treatment Upcoming Encounters Date Type Specialty Care Team Description 12/09/2021 Comprehensive Visit Dermatology Radha Wright M.D. [address] [place], [place] [phone] (Wo rk) 12/26/2021 Procedure visit Dermatology Cristi Wright M.D. [address] [place], [place] [phone] (Wo rk) Scheduled Orders Name Type Priority Associated Diagnoses Order S chedule Dermatology misc minor Dermatology Routine Nevi Multiple Expe cted: 05/25/2020 procedure (Approximate), Expires: 2022 documented as of this encounter Visit Diagnoses Diagnosis Nevi Multiple - Primary Keratosis Actinic Keratosis Seborrheic documented in this encounter
--- OUTSIDE RECORDS SUMMARY | 2021-12-06 10:31 | XMS_ITS | Encounter Summary ---
:1940 Author Organization [facility] Address [address] [place] [address] Care Team Providers Name Role Phone Unavailable Primary Care Provider Unavailable Reason for Visit Reason Comments Skin Check Appointment Request (Routine) - Closed Specialty Diagnoses / Procedures Referred By Contact Refer red To Contact Dermatology Referral ID Status Reason Start Date Expiration Date Visits Requ ested Visits Authorized [id number] Closed 10/03/2017 10/03/2018 1 Encounter Details Date Type Department Care Team Description 01/07/2018 Office Visit Department of Carl Oneal, Tumor Skin Uncertain Behavior (Primary Dx); Dermatology in [place] Keratosis Seborrheic; [place], [place] [address] [facility] Nevi Multiple; [address] [facility] [address] [place], [place] Cancer Skin Squamous Cell Pe rsonal History; [place] [address] Cancer Skin Basal Cell Personal History [phone] Social History Tobacco Use Types Packs/Day [...] or relatives? How often do you attend yarsanism or More than 4 times per year 05/10/2021 advent services? Do you belong to any clubs or No 05/10/2021 organizations such as yarsanism groups, unions, fraternal or athletic groups, or [...] encounter Progress Notes Carl Oneal M.D. - 01/07/2018 12:45 PM CST CHIEF COMPLAINT Evaluation of lesions involving the left harrell HISTORY OF THE PRESENT ILLNESS Darcy Colon is a pleasant 77 y.o. female who presents for a full skin cancer screening exam. Nicolas saw this patient in [place] on 09/04/08. She recently moved to [place], [place] from [place], [place], and has seen dermatology in the past in [place]. The patient denies a history for Jeb cell carcinoma in light of having no lymph node biopsies or wide local excisions in the past. On the intake note for today's visit it stated a history of [place] cell carcinoma which she states she has never been diagnosed with and is sure regarding this matter. She will obtain records from [place] for my personal review. Per the patient, she has an extensive history of non-melanoma skin cancers involving her face and arms. The most recent non-melanoma skin cancer occurred one year ago and involved the left jawline, but she is unsure if it was basal cell carcinoma or squamous cell carcinoma. The patient does not use sunscreen, apart from the low SPF contained in her makeup. No personal or family history for melanoma. Today, the patient has concern for a lesion involving the left mid harrell that has been present for 2 months. She initially thought it was a pimple and squeezed the lesion, but she was unable to express any pus. She also has concern for a lesion involving her left distal harrell which has been present for a nondescript amount of time. The lesion changes in size, but she reports no other changes. 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 Skin: I have examined the scalp, face, neck, chest, abdomen, back, bilateral upper extremities, and bilateral lower extremities. Examination of the left mid harrell reveals a 1 cm x 1 cm violaceous, slightly pearly nodule with minimal scale concerning for nodular basal cell carcinoma. Examination of the the left distal anterior harrell reveals a 7 mm x 6.5 mm brown nevus with slight asymmetry compatible with benign nevus versus flat seborrheic keratosis. Examination of the right cheek reveals a 1.6 cm x 1.8 cm uniformly pigmented light-brown patch compatible with flat seborrheic keratosis versus lentigo.Otherwise, examination of the face, trunk, and extremities reveals multiple benign nevi. Examinationof the left mid-back reveals a nevus and 3.9 cm x 1.5 cm spilus. IMPRESSION AND PLAN #1 Left mid harrell: Rule out basal cell carcinoma I have advised the patient to return during procedure clinic on 02/20/18 for a shave biopsy of the left mid harrell. If dermatopathology returns as basal cell carcinoma, we will refer the patient to [facility] for Mohs procedure. The patient has had Mohs surgery previously and understands the procedural details. Photograph taken today with patient's verbal consent. #2 Left distal anterior harrell: Rule out atypical nevus versus seborrheic keratosis I have advised the patient to return during procedure clinic on 02/20/18 for a shave biopsy given its larger size and location of the left distal anterior harrell. Photograph taken today with patient's verbal consent. #3 Right cheek: Flat seborrheic keratosis versus lentigo Discussed with the patient that this is likely benign. Given its size and uniform pigmentation, I recommend continued observation. Should symptoms or changes develop related to this condition, I would recommend a return visit for reassessment. #4 Multiple nevi The ABCDE criteria for melanoma was reviewed with the patient. None of the patient's nevi reach the clinical threshold for biopsy. I recommend continued sun protection, self-skin examinations, and observation. Should any of the patient's nevi change in size, color, texture, or shape or develop symptoms such as itching or bleeding, I recommend an immediate return visit for reassessment. #5 Left harrell: Seborrheic Keratosis The benign nature of the skin lesion(s) was discussed with the patient. No treatment is required. I recommend continued observation. Should symptoms or changes develop related to this condition, I would recommend a return visit for reassessment. PATIENT EDUCATION Ready to learn. No apparent learning barriers were identified. Learning preferences include listening. Explained diagnosis and treatment plan; patient/guardian of patient expressed understanding of thecontent. By signing my name below, I, Leilani Carrizales, attest that this documentation has been prepared under the direction and in the presence of Carl Oneal M.D.. Electronically Signed: reynaldo Ca. 01/07/2018. 11:54 AM . I, Carl Oneal M.D., personally performed the services described in this documentation. All medical record entries made by the scribe were at my direction and in my presence. I have reviewed the chart and discharge instructions (if applicable) and agree that the record reflects my personal performance and is accurate and complete. Carl Oneal M.D. . 01/07/2018. 2:17 PM. CAR INSPECTOR documented in this encounter Plan of Treatment Upcoming Encounters Date Type Specialty Care Team Description 12/09/2021 Comprehensive Visit Dermatology Radha Wright M.D. [address] [place], [place] [phone] (Wo danny) 12/26/2021 Procedure visit Dermatology Cristi Wright M.D. [address] [place], [place] [phone] (Wo danny) Scheduled Orders Name Type Priority Associated Diagnoses Order S chedule Dermatology misc minor Dermatology Routine Tumor Skin Uncerta in Expected: procedure Behavior 01/21/2018 Nevi Multiple (Approximate), Expires: 2020 documented as of this encounter Visit Diagnoses Diagnosis Tumor Skin Uncertain Behavior - Primary Keratosis Seborrheic Nevi Multiple Cancer Skin Squamous Cell Personal Histo ry Cancer Skin Basal Cell Personal History documented in this encounter
--- OUTSIDE RECORDS SUMMARY | 2021-12-06 10:31 | XMS_ITS | Encounter Summary ---
:1940 Author Organization [facility] Address [address] [place] [address] Care Team Providers Name Role Phone Unavailable [...] or relatives? How often do you attend mandaen or More than 4 times per year 05/10/2021 jewish services? Do you belong to any clubs or No 05/10/2021 organizations such as mandaen groups, unions, fraternal or athletic groups, or [...] place to sleep or slept in a long term (including now)? Sex Assigned at Date Recorded Not on file documented as of this encounter Plan of Treatment Upcoming Encounters Date Type Specialty Care Team Description 12/09/2021 Comprehensive Visit Dermatology Radha Wright M.D. [address] [place], [place] [phone] (Wo rk) 12/26/2021 Procedure visit Dermatology Cristi Wright M.D. [address] [place], [place] [phone] (Wo rk) documented as of this encounter Procedures Procedure Name Priority Date/Time Associated Comments Diagnosis DERMATOLOGY IMAGE Routine 03/04/2018 12:10 Result s for this EXAM PM HARNESS TIER procedure are i n the results section. documented in this encounter Results DERMATOLOGY IMAGE EXAM (03/04/2018 12:10 PM HARNESS TIER) Specimen (Source) Anatomical Collection Method Collection Time Re ceived Time Location / / Volume Laterality 03/04/2018 12:00 PM HARNESS TIER Narrative [facility] - 03/04/2018 1:04 PM HARNESS TIER This order has been created and auto-finalized [...]
--- OUTSIDE RECORDS SUMMARY | 2021-12-06 10:31 | XMS_ITS | Encounter Summary ---
:1940 Author Organization [facility] Address [address] [place] [address] Care Team Providers Name Role Phone Unavailable Primary Care Provider Unavailable Encounter Details Date Type Department Care Team Description 02/04/2018 Clinical Communication Department of Carl Oneal, Dermatology in M.DAdalid [place], [place] [address] [facility] [address] [place] [phone] Social History Tobacco Use Types Packs/Day Years [...] or relatives? How often do you attend hoahaoism or More than 4 times per year 05/10/2021 temple services? Do you belong to any clubs or No 05/10/2021 organizations such as hoahaoism groups, unions, fraternal or athletic groups, or [...] slept in a nursing home (including now)? Sex Assigned at Date Recorded Not on file documented as of this encounter Miscellaneous Notes Telephone Encounter - Carl Oneal M.D. - 02/04/2018 8:48 AM CST I spoke to Mrs. Colon this morning and discussed with her that the skin biopsy taken from her left midshin has been read out as an invasive well-differentiated squamous cell carcinoma. Given the size and the location, I will be referring her for Mohs surgery in [place]. She is leaving for [place] on March 09 and would like to have it done before she flies to [place] for the winter, and I told her that we would do our best. I told her, if she cannot get in before March 09, once she has the appointment office give her a call, to let me know, and we will see what we can do at that time if need be. The importance of having it removed prior to going to [place] was emphasized, as she will be goneuntil the spring. The second biopsy taken from her left harrell more distally was a seborrheic keratosis and requires no further treatment. All questions answered, and she was appreciative of the phone call. An order was placed for the Mohs surgery. 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 [address] [place] [address] [phone] (Wo rk) 12/26/2021 Procedure visit Dermatology Cristi Wright M.D. [address] [place] [phone] (Wo rk) documented as of this encounter Visit Diagnoses Not on filedocumented in this encounter
--- OUTSIDE RECORDS SUMMARY | 2021-12-06 10:31 | XMS_ITS | Encounter Summary ---
:1940 Author Organization [facility] Address [address] [place] [address] Care Team Providers Name Role Phone Unavailable Primary Care Provider Unavailable Reason for Referral Outpatient (Routine) - Closed Specialty Diagnoses / Procedures Referred By Contact Refer red To Contact Dermatology Carl Oneal M.D . [facility] [address] [place], [place] [phone] Referral ID Status Reason Start Date Expiration Date Visits Requ ested Visits Authorized [id number] Closed 05/25/2020 05/25/2021 1 1 Scheduling Instructions Recheck several lesions and possible bio psies. July 19-3:00 p.m. 30 minutes Reason for Visit Reason Comments Skin Check Outpatient (Routine) - Closed Specialty Diagnoses / Procedures Referred By Contact Refer red To Contact Dermatology Diagnoses Nevi Multiple Carl Oneal M.D. [facility] Procedures Dermatology misc minor procedure [address] [place] [phone] Referral ID Status Reason Start Date Expiration Date Visits Requ ested Visits Authorized [id number] Closed 01/27/2020 01/26/2021 1 1 Encounter Details Date Type Department Care Team Description 05/25/2020 Procedure visit Department of Carl Oneal Tumor Skin Uncertain Behavior (Primary Dx); Dermatology in Malcolm Monsivais M.D. Nevi Multiple; [place], [place] [address] [facility] Keratosis [facility] [address] [place] [phone] Social History Tobacco Use Types Packs/Day Years [...] place to sleep or slept in a assisted (including now)? Sex Assigned at Date Recorded Not on file documented as of this encounter Progress Notes Carl Oneal M.D. - 05/25/2020 9:45 AM CDT SUBJECTIVE CHIEF COMPLAINT / REASON FOR VISIT Return for possible punch biopsy Full skin cancer screening exam HISTORY OF PRESENT ILLNESS Darcy Colon is a pleasant 79 y.o. female who follows up for possible punch biopsy of a nevus involving the right upper arm and a full skin cancer screening exam . The patient was last seen by me in Dermatology clinic on 01/27/2020 and at that time the patient preferred to defer a punch biopsy ofthe nevus involving the right upper arm and continue to clinically monitor. Patient was initially advised in January 2019 to have this nevus removed given the asymmetry and I did explain that I couldn't rule out an atypical nevus and she understood. She returns today for re-evaluation and possible biopsy of the nevus and a full skin check. 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 Turner at [facility]. She denies a personal or family history of melanoma. Today she would like an evaluation of a lesion involving the upper central sternum. On her last visit we felt it was compatible with a slightly irritated SK. I asked her to apply Vaseline to the area twice daily and return if not completely resolved within a few weeks. Today she states the lesion did not resolve after applying Vaseline and has since crusted and turned into an open sore that does not heal and is painful to the touch. She did not return as she went to [place]. MEDICAL HISTORY 1. 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 Turner at [facility] 3. Negative for melanoma ?? FAMILY HISTORY Negative??for melanoma OBJECTIVE PHYSICAL EXAMINATION General: Awake, alert, in no acute distress, and with appropriate affect. Lymph: No lower leg edema. Skin: I have examined the scalp, face, neck, chest, abdomen, back, bilateral upper extremities, and bilateral lower extremities. My scribe Mel was present for the full exam today. Examination of the left mid harrell reveals two scars no clinical evidence for local recurrence of scc. Examination of the skin reveals no clinical evidence for local recurrence of previously treated multiple non-melanoma skin cancers. Examination of the right upper arm reveals a 4.5 mm x 2.5 mm brown nevus with asymmetry. Examination of the left distal medial harrell reveals a 5 x 6 mm hyperkeratotic papule. Examination of the right cheek reveals a 1.9 cm x 2.1 cm large brown annular patch, compatible with a benign lentigo or seborrheic keratosis. Examination of the left mid-central back reveals a 4 cm x 1.8 cm nevus spilus. Examination of the left lower forehead reveals a 7 x 7.5 mm brown macule with slight jagged borders but looks benign on clinical exam and dermoscopy. Examination of the upper central sternum reveals a 1.3 cm x 0.9 cm pearly plaque with central brown crusting Examination today reveals a total of 2 AKs, includin involving the left lower cheek, 1 involvingthe left anterior shoulder, 2 involving the left upper lateral chest. Examination of the left upper harrell reveals a 5 x 4 mm brown macule with slightly darker pigmentationat the 11 o'clock position. Examination of the left clavicle reveals a 5 x 3 mm brown verrucous papule that is slightly irritated and compatible with an irritated SK. Examination of the left base of the neck reveals some dry skin, apply Vaseline. Examination of face, trunk, and extremities reveals multiple benign appearing nevi and lentigines, and multiple SKs. 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 Turner at [facility], no recurrence Examination today reveals no clinical evidence of recurrence of non-melanoma skin cancers. Follow upimmediately if changes are noticed during monthly self examination. Otherwise followup in 6-12 months. #2 Right upper arm: Rule out atypical nevus This nevus has slight asymmetry and I again discussed the possibility of doing a punch biopsy today to rule out an atypical nevus. Patient deferred biopsy again and prefers to continue to monitor at this time. She does understand that I cannot rule out an atypical nevus but prefers to follow-up clinically. Follow up in 2 months for a recheck of the nevus. #3 Left harrell, distal medial: Rule out scc A shave biopsy removing the lesion was done in clinic and submitted for pathology. I will correspondwith patient as to the results and if any further treatment is needed. Photographs taken today CONSENT Discussed the risks, benefits, alternatives, and the necessity of other members of the healthcare team participating in the procedure. All questions answered and consent given. UNIVERSAL PROTOCOL Procedural pause conducted to verify: correct patient identity, procedure to be performed, and as applicable, correct side and site, correct patient position, and availability of implants, special equipment, or special requirements. PROCEDURE INFORMATION Shave biopsy. We explained the potential diagnosis and recommended that we obtain a biopsy. The risks and benefitsof the procedure were discussed, and the patient consented to these procedures. Using 1% lidocaine with epinephrine for local anesthesia, a shave biopsy was obtained from the left harrell, distal medial x1 lesion. Biopsy submitted to Dermatopathology for H&E. Special stains will be performed as indic ated. The bleeding was well controlled with application of aluminum chloride. Dressing was applied, and wound care instructions were explained. Biopsy results and any further recommendations will be communicated to the patient by letter. Patient given pamphlet [id number]. PATIENT EDUCATION: Ready to learn. No apparent learning barriers were identified. Learning preferences include listening. Explained diagnosis and treatment plan; patient/guardian of patient expressed understanding of thecontent. #4 Sternum, upper central: Rule out irritated bcc, doubt irritated SK A shave biopsy of the lesion was done in clinic and submitted for pathology. I will correspond with patient as to the results and if any further treatment is needed. Photographs taken today . I did discuss with her that this would need Mohs surgery if it comes back as a basal cell carcinoma given the location, size and concern for minimizing scar in this area. She does understand that you can developkeloids overlying the sternum. CONSENT Discussed the risks, benefits, alternatives, and the necessity of other members of the healthcare team participating in the procedure. All questions answered and consent given. UNIVERSAL PROTOCOL Procedural pause conducted to verify: correct patient identity, procedure to be performed, and as applicable, correct side and site, correct patient position, and availability of implants, special equipment, or special requirements. PROCEDURE INFORMATION Shave biopsy. We explained the potential diagnosis and recommended that we obtain a biopsy. The risks and benefitsof the procedure were discussed, and the patient consented to these procedures. Using 1% lidocaine with epinephrine for local anesthesia, a shave biopsy was obtained from the sternum, upper central x 1lesion. Biopsy submitted to Dermatopathology for H&E. Special stains will be performed as indicated. The bleeding was well controlled with application of aluminum chloride. Dressing was applied, and wound care instructions were explained. Biopsy results and any further recommendations will be communicated to the patient by letter. Patient given pamphlet [id number]. PATIENT EDUCATION: Ready to learn. No apparent learning barriers were identified. Learning preferences include listening. Explained diagnosis and treatment plan; patient/guardian of patient expressed understanding of thecontent. #5 Left lower cheek, left anterior shoulder, left upper lateral chest: AK x 4 lesions Given the precancerous nature of this lesion(s), treatment is medically indicated. After discussion of the risks, benefits and alternatives to treatment with cryotherapy, informed consent was obtained.We treated a total of 4 lesion(s) with two [id number] freeze-thaw cycles of liquid nitrogen cryothe rapy. The patient tolerated the procedure well. Aftercare instructions were provided in written and verbal form to the patient. Should any of these lesions recur, the patient should return for biopsy or further evaluation. Discussed the risks, benefits, alternatives, and the necessity of other membersof the healthcare team participating in the procedure. All questions answered and consent given. #6 Face, trunk, and extremities: Multiple benign appearing nevi and lentigines The ABCDE criteria for melanoma was reviewed with the patient. None of the patient's nevi reach the clinical threshold for biopsy. I recommend continued sun protection, self-skin examinations, and observation. Should any of the patient's nevi change in size, color, texture, or shape or develop symptoms such as itching or bleeding, I recommend an immediate return visit for reassessment. In particular,we will continue to clinically monitor the lesion(s) involving the left upper harrell. Photographs taken today. Follow up in 2 months for a recheck of the lesion(s). #7 Face, trunk, and extremities: Seborrheic keratosis The benign nature of the skin lesion(s) was discussed with the patient. No treatment is required. I recommend continued observation. Should symptoms or changes develop related to this condition, I would recommend a return visit for reassessment. #8 Left clavicle: Irritated SK The benign nature of the skin lesion(s) was discussed with the patient. My index for suspicion for atypia is very low on clinical exam and dermoscopy today. Will continue to monitor clinically. Should this lesion change in size, color, texture, or shape or develop symptoms such as itching or bleeding,I recommend an immediate return visit for reassessment. Otherwise, return in 2 months for a recheck of the stated lesion(s). #9 Left neck: Xerosis Patient states that this area gets irritated from some jewelry she has been wearing recently. I haveasked her to apply Vaseline to the area twice daily for 3-4 weeks. Follow up in 2 months for a recheck. If not resolved we will consider biopsy at that time. PATIENT EDUCATION: Ready to learn. No apparent learning barriers were identified. Learning preferences include listening. Explained diagnosis and treatment plan; patient/guardian of patient expressed understanding of thecontent. By signing my name below, I, Alice Sparks, attest that this documentation has been prepared underthe direction and in the presence of Carl Oneal M.D. Electronically Signed: reynaldo Luna.05/25 ICarl M.D., personally performed the services described in this documentation. All medical record entries made by the scribe were at my direction and in my presence. I have reviewed the chart and discharge instructions (if applicable) and agree that the record reflects my personal performance and is accurate and complete. Carl Oneal M.D. 05/25/2020 documented in this encounter Miscellaneous Notes Result Encounter Note - Carl Oneal M.D. - 05/31/2020 10:38 PM CDT A. Left distal medial harrell : SCC in situ- needs treatment with electrodesiccation and curettage B. Upper central sternum: Infiltrative moderately differentiated squamous cell carcinoma- needs Mohssurgery. [facility] patient, please send letter documented in this encounter Plan of Treatment Upcoming Encounters Date Type Specialty Care Team Description 12/09/2021 Comprehensive Visit Dermatology Radha Wright M.D. [address] [place], [place] [phone] (Wo rk) 12/26/2021 Procedure visit Dermatology Cristi Wright M.D. [address] [place], [place] [phone] (Wo rk) Scheduled Referrals Name Type Priority Associated Order Schedule Diagnoses Dermatology office Outpatient Referral Routine Ex pected: visit (clinic) 07/19/2020 (Approximate), Expires: 05/26/2023 documented as of this encounter Procedures Procedure Name Priority Date/Time Associated Comments Diagnosis DERMATOPATHOLOGY CONSULT Routine 05/25/2020 10:23 Tumor Skin Results for this AM CDT Uncertain Behavior procedure are in the results section. documented in this encounter Results Dermatopathology Consult (05/25/2020 10:23 AM CDT) Component Value Ref Test Analysis Performed Pathologis t Range Method Time At Signature 05/31/2020 PDRM 4:20 PM CDT Report Milli DumontAdalid Garcia, 05/31/2020 PDR electronically M.DAdalid 4:20 PM signed by CDT Gross A: ?? Received in formalin labeled with the patient's name , 05/31/2020 PDRM Description: medical record number, and left harrell, distal medial is a 4:20 PM 1.5 x 0.6 x 0.1 cm pale holt skin shave biopsy. CDT Eccentrically located and abutting the periphery of the skin surface is a 0.6 x 0.6 x 0.1 cm pale holt-white, firm lesion with irregular borders. ??The specimen is bisected longitudinally and submitted entirely in cassette A1. Grossed by VANDANA B: ?? Received in formalin labeled with the patient's name, medical record number, and sternum, upper central is a 1.2 x 0.8 x 0.1 cm pale holt skin shave biopsy. Eccentrically located and abutting the periphery of the skin surface is a 0.8 x 0.5 cm holt, slightly raised lesion with irregular borders. ??Eccentrically located at the apex of the lesion is a minute dark brown hyperpigmented area. The specimen is trisected and submitted entirely in cassette B1. ??Grossed by VANDANA Interpetation FINAL DIAGNOSIS 05/31/2020 PDRM A. ??DermPath Consult Wet Tissue; Left harrell, distal medial, 4:20 PM Skin shave biopsy: ??Squamous cell carcinoma in situ, CDT involving biopsy border B. ??DermPath Consult Wet Tissue; Upper central sternum, Skin shave biopsy: ??Infiltrative moderately differentiated squamous cell carcinoma, involving biopsy border COMMENT The neoplastic cells are positive for keratin AE1/AE3 and negative for Moe EP4. Specimen Anatomical Collection Method Collection Time Receive d Time (Source) Location / / Volume Laterality Tissue 05/25/2020 10:23 05/26/2020 9:05 AM CDT AM CDT Narrative This result has an attachment that is no t available. Carl Oneal M.D. LAB PATH DERM ORDERABLES Performing Organization Address City/State/ZIP Code Phon e Number [facility] - [address] [place], [place] [address] [facility] [place] [address] [facility] [address] documented in this encounter Visit Diagnoses Diagnosis Tumor Skin Uncertain Behavior - Primary [facility] Multiple Keratosis [facility]inic documented in this encounter
--- OUTSIDE RECORDS SUMMARY | 2021-12-06 10:31 | XMS_ITS | Encounter Summary ---
:1940 Author Organization [facility] Address [address] [place] [address] Care Team Providers Name Role Phone Unavailable Primary Care Provider Unavailable Encounter Details Date Type Department Care Team Description 02/03/2019 Ancillary Procedure Department of Dermatology Social History [...] or relatives? How often do you attend denominational or More than 4 times per year 05/10/2021 mu-ism services? Do you belong to any clubs or No 05/10/2021 organizations such as denominational groups, unions, fraternal or athletic groups, or [...] Visit Dermatology Radha Wright M.D. [address] [place], [place] [phone] (Wo rk) 12/26/2021 Procedure visit Dermatology Cristi Wright M.D. [address] [place], [place] [phone] (Wo rk) documented as of this encounter Procedures Procedure Name Priority Date/Time Associated Comments Diagnosis DERMATOLOGY IMAGE Routine 02/03/2019 1:35 PM Resu lts for this EXAM BEEF KILLER procedure are i n the results section. documented in this encounter Results Right Arm 523a-Dermatology Image Exam (02/03/2019 1:35 PM BEEF KILLER) Specimen (Source) Anatomical Collection Method Collection Time Re ceived Time Location / / Volume Laterality 02/03/2019 1:33 PM BEEF KILLER Narrative [facility] - 02/03/2019 1:36 PM BEEF KILLER This order has been created and auto-finalized [...]
--- OUTSIDE RECORDS SUMMARY | 2021-12-06 10:31 | XMS_ITS | Encounter Summary ---
:1940 Author Organization [facility] Address [address] [place] [address] Care Team Providers Name Role Phone Unavailable [...] or relatives? How often do you attend tenriism or More than 4 times per year 05/10/2021 scientology services? Do you belong to any clubs or No 05/10/2021 organizations such as tenriism groups, unions, fraternal or athletic groups, or [...] place to sleep or slept in a skilled nursing (including now)? Sex Assigned at Date Recorded Not on file documented as of this encounter Plan of Treatment Upcoming Encounters Date Type Specialty Care Team Description 12/09/2021 Comprehensive Visit Dermatology Radha Wright M.D. [address] [place], [place] [phone] (Wo rk) 12/26/2021 Procedure visit Dermatology Cristi Wright M.D. [address] [place], [place] [phone] (Wo rk) documented as of this encounter Procedures Procedure Name Priority Date/Time Associated Comments Diagnosis DERMATOLOGY IMAGE Routine 03/04/2018 12:15 Result s for this EXAM PM RETORT OPERATOR procedure are i n the results section. documented in this encounter Results DERMATOLOGY IMAGE EXAM (03/04/2018 12:15 PM RETORT OPERATOR) Specimen (Source) Anatomical Collection Method Collection Time Re ceived Time Location / / Volume Laterality 03/04/2018 12:00 PM RETORT OPERATOR Narrative [facility] - 03/04/2018 1:04 PM RETORT OPERATOR This order has been created and [...]
--- OUTSIDE RECORDS SUMMARY | 2021-12-06 10:31 | XMS_ITS | Encounter Summary ---
:1940 Author Organization [facility] Address [address] [place] [address] Care Team Providers Name Role Phone Unavailable Primary Care Provider Unavailable Encounter Details Date Type Department Care Team Description 02/04/2018 Clinical Communication Department of [facility] Senthil Oneal, Medicine, [facility], in [address] [address] [place], [place] [phone] (Work) [phone] Social History Tobacco Use Types Packs/Day Years [...] or relatives? How often do you attend episcopal or More than 4 times per year 05/10/2021 restorationism services? Do you belong to any clubs or No 05/10/2021 organizations such as episcopal groups, unions, fraternal or athletic groups, or [...] this encounter Miscellaneous Notes Telephone Encounter - Ginny Gee R.N. - 02/05/2018 10:06 AM CST Discussed with Dr. Oneal and call placed to the [place] [facility] per his request to see if earlier appointments are available for either Mohs surgery or excision with wider margins. Per Anna in the Appointment Office, 03/26/18 is the first available appointment for either of these procedure options. They have taken patients name to call if there are any cancellations prior to her leaving for [place] on 03/11/18. They state she can call every morning for any cancellations as well. Dr. Oneal will discuss further with Dermatology Surgery and/or investigate other appointment options/recomendations for this patients procedure when he is in [place] later this week and follow up with patient as needed. KLER Telephone Encounter - Cristy Novak R.N. - 02/04/2018 11:35 AM SHACKLER FYI this goes to the [facility] NURSE pool. KLER Telephone Encounter - Doreen Sawyer - 02/04/2018 10:57 AM CST Patient wasn't able to get in with Derm in [place] for her Malignant Neoplasm Of Lower Limb Squamous Cell Carcinoma Left ASA procedure until 03/27. She said they will be going south before then and would need an earlier appointment. She would like to know if there is anyway to get her in earlier. KLER documented in this encounter Plan of Treatment Upcoming Encounters Date Type Specialty Care Team Description 12/09/2021 Comprehensive Visit Dermatology Radha Wright M.D. [address] [place], [place] [phone] (Wo rk) 12/26/2021 Procedure visit Dermatology Cristi Wright M.D. [address] [place], [place] [phone] (Wo rk) documented as of this encounter Visit Diagnoses Not on filedocumented in this encounter
--- OUTSIDE RECORDS SUMMARY | 2021-12-06 10:31 | XMS_ITS | Encounter Summary ---
:1940 Author Organization [facility] Address [address] [place] [address] Care Team Providers Name Role Phone Unavailable [...] or relatives? How often do you attend yazidism or More than 4 times per year 05/10/2021 restorationist services? Do you belong to any clubs or No 05/10/2021 organizations such as yazidism groups, unions, fraternal or athletic groups, or [...] Dermatology Radha Wright M.D. [address] [place], [place] [phone] (Wo rk) 12/26/2021 Procedure visit Dermatology Cristi Wright M.D. [address] [place], [place] [phone] (Wo rk) documented as of this encounter Procedures Procedure Name Priority Date/Time Associated Comments Diagnosis DERMATOLOGY IMAGE Routine 03/04/2018 12:05 Result s for this EXAM PM SOIL SCIENTIST procedure are i n the results section. documented in this encounter Results DERMATOLOGY IMAGE EXAM (03/04/2018 12:05 PM SOIL SCIENTIST) Specimen (Source) Anatomical Collection Method Collection Time Re ceived Time Location / / Volume Laterality 03/04/2018 12:00 PM SOIL SCIENTIST Narrative [facility] - 03/04/2018 1:04 PM SOIL SCIENTIST This order has been created and auto-finalized to support the import of images acquired without order. The clini radah documentation to support these images can be found on the encounter mackenzie t produced images. Provider Not In System IMG NON RAD IMAGING PROCEDUR ES Performing Organization Address City/State/ZIP Code Phon e Number [facility] NA documented in this encounter Visit Diagnoses Not on filedocumented in this encounter
--- OUTSIDE RECORDS SUMMARY | 2021-12-06 10:31 | XMS_ITS | Encounter Summary ---
:1940 Author Organization [facility] Address [address] [place] [address] Care Team Providers Name Role Phone Unavailable [...] More than 4 times per year 05/10/2021 lutheran services? Do you belong to any clubs [...] Visit Dermatology Radha Wright M.D. [address] [place], [place] [phone] (Wo rk) 12/26/2021 Procedure visit Dermatology Cristi Wright M.D. [address] [place], [place] [phone] (Wo rk) documented as [...]
--- OUTSIDE RECORDS SUMMARY | 2021-12-06 10:31 | XMS_ITS | Encounter Summary ---
:1940 Author Organization [facility] Address [address] [place] [address] Care Team Providers Name Role Phone Unavailable Primary Care Provider Unavailable Encounter Details Date Type Department Care Team Description 03/04/2018 Procedure visit Department of Ramon, Nic Reynolds M.D., M.S. [address] [place] [phone] Malignant Neoplasm Dermatology in Ruy Turner M.D. [address] [place] [phone] Of Lower Limb [place], [place] Squamous Cell [address] [place] Carcinoma Left [place], [place] (Primary Dx) [phone] Social History Tobacco Use Types Packs/Day Years [...] or relatives? How often do you attend yazdanism or More than 4 times per year 05/10/2021 taoism services? Do you belong to any clubs or No 05/10/2021 organizations such as yazdanism groups, unions, fraternal or athletic groups, or [...] Sign Reading Time Taken Comments Blood Pressure 140/80 03/04/2018 12:15 PM AIRCRAFT SHIPPING CHECKER Pulse 84 03/04/2018 12:15 PM AIRCRAFT SHIPPING CHECKER Temperature - - Respiratory Rate - - Oxygen Saturation - - Inhaled Oxygen Concentration - - Weight - - Height - - Body Mass Index - - documented in this encounter Procedure Notes Vaishnavi Alcala D.O. - 03/04/2018 11:30 AM CST PREOP INDICATION: REMOVAL. Date of Surgery: 03/04/2018 Surgeon: Dr. Turner Inseminator: Dr. Jessica Alcala D.O. Location: [facility] Floor:16 Room:[facility] Visit Type: Outpatient PostOp Diagnosis: Squamous cell carcinoma, grade I Anatomic Location: Left harrell mid Preoperative size: 1.0 x 1.1 cm [facility] number: [id number] Procedure: Mohs micrographic surgery with guided primary closure. Procedural pause conducted to verify: correct patient [...] surgeon performing both the surgery and pathology. Postoperative size: 1.7 x 1.7 cm. Anesthesia with 1% lidocaine with 1:200,000 epinephrine and another sterile prep were performed. Thewound was undermined, and hemostasis was obtained with electrocoagulation. To avoid anatomic distortion, a guiding suture was placed with 4-0 Vicryl suture. Postoperative length: 2.7 cm. Estimated blood loss: Minimal. Complications: None. Wound care: Dilute acetic acid soaks. Postoperative medications: None RAFT SHIPPING CHECKER Associated attestation - Ruy Turner M.D. - 03/04/2018 12:58 PM AIRCRAFT SHIPPING CHECKER Having reviewed the history, examined the patient, as well as discussed management, I agree with theimpression and plan as documented by Nereyda Alcala ([phone]) who assisted me. In addition, I was also present for the critical portion and immediately available for the entire procedure we perform ed. documented in this encounter Consult Notes Vaishnavi Alcala D.O. - 03/04/2018 11:30 AM CST Referral Carl Oneal M.D. Chief Complaint Referral for Mohs micrographic surgery for infundibuocystic squamous cell carcinoma left harrell (???left harrell mid?? ) HISTORY OF THE PRESENT ILLNESS Darcy Colon is a 77 y.o. 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 The original pathology report had commented that there was no apparent epidermal connection and that metastatic squamous cell carcinoma should be considered. However, sections from the biopsy do demonstrate an epidermal connection with the atypical squamous proliferation consistent with a primary cutaneous squamous cell carcinoma. An addendum has been provided by the dermatopathologist. The patient does not have any other cutaneous concerns today. She is accompanied by her Gerhard to her appointment. The dermatologic surgery preoperative information sheet was reviewed. The patient denies history of heart disease, pacemaker, defibrillator, lung disease, liver disease, stroke, infectious diseases (including hepatitis B, hepatitis C, or HIV), diabetes, organ transplant, bleeding or healing problems. The patient does not have any history of artificial joints, nor is the patient is scheduled for jointreplacement in next 4 weeks. The patient does not require antibiotics before dental work or during procedures. The patient does not have a history of hypertension. Aspirin: Affirms Anticoagulation: Denies Tobacco use: Denies Alcohol use: Occasional PHYSICAL EXAM Vitals: BP 140/80, HR 84 General: Awake, alert, in no acute distress, and with appropriate affect. Skin: A limited skin examination was performed per patient preference. The left harrell (???left harrell mid?? ) exhibits a 1.0 x 1.1 cm erythematous scaly patch confirmed by comparison to photograph to be the site of biopsy of squamous cell carcinoma. Distal to this on the left anterior harrell there is a well-healing biopsy site (biopsy site of lentigo in macular seborrheic keratosis). Lymph: There is no left popliteal or inguinal lymphadenopathy appreciated. IMPRESSION AND PLAN #1 Squamous cell carcinoma, grade I, left harrell mid We discussed with the patient our recommendation for Mohs micrographic surgery to treat this today. We discussed the risks of infection and bleeding. The patient understands that there will be a scar at this site. We discussed potential reconstruction/wound healing options. The patient elected to proceed with Mohs surgery today. PROCEDURAL DETAILS The squamous cell carcinoma of the left harrell was cleared in 1 stages, 2 blocks, for a postoperative defect size of 1.0 x 1.1 cm. The defect was repaired with guided primary closure with 4-0 Vicryl subcutaneous suture for a postoperative length of 2.7 cm. The procedure was tolerated well without complications. Please see the procedure note for further details. PROCEDURAL PAUSE Procedural pause conducted to verify: [...] procedure. All questions answered and consent given. RAFT SHIPPING CHECKER Associated attestation - Ruy Turner M.D. - 03/04/2018 12:58 PM AIRCRAFT SHIPPING CHECKER Having reviewed the history, examined the patient, as well as discussed management, I agree with theimpression and plan as documented by Nereyda Alcala ([phone]) who assisted me. In addition, I was also present for the critical portion and immediately available for the entire procedure we perform ed. documented in this encounter Plan of Treatment Upcoming Encounters Date Type Specialty Care Team Description 12/09/2021 Comprehensive Visit Dermatology Radha Wright M.D. [address] [place], [place] [phone] (Wo rk) 12/26/2021 Procedure visit Dermatology Cristi Wright M.D. [address] [place], [place] [phone] (Wo rk) documented as of this encounter Visit Diagnoses Diagnosis Malignant Neoplasm Of Lower Limb Squamou s Cell Carcinoma Left - Primary documented in this encounter Administered Medications Inactive Administered Medications - up to 3 most recent administrations Medication Order MAR Action Action Date Dose Rate Site dozyqnkkjeu-gooagwwez-MYVEKMXxqtu Given 03/04/2018 11:19 AM AIRCRAFT SHIPPING CHECKER 4 mL 0.25%-1%-1:200,000 injection 2-25 mL 2-25 mL, injection, As needed, may repeat if the patient complains of pain/discomfort at the site up to 50 mL for entire procedure, Starting on 03/04/18 at 1056 lidocaine-EPINEPHrine 1%-1:200,000 injection Given 9 11:19 AM AIRCRAFT SHIPPING CHECKER 6 mL 2-50 mL (XYLOCAINE W/EPI) 2-50 mL, injection, As needed, may repeat if the patient complains of pain/discomfort at the site up to 50 mL for entire procedure, Starting on 03/04/18 at 1056 documented in this encounter
--- OUTSIDE RECORDS SUMMARY | 2021-12-06 10:31 | XMS_ITS | Encounter Summary ---
:1940 Author Organization [facility] Address [address] [place] [address] Care Team Providers Name Role Phone Unavailable Primary Care Provider Unavailable Encounter Details Date Type Department Care Team Description 06/02/2020 Clinical Communication Department of Carl Oneal, Dermatology in [place], [place] [address] [facility] [address] [place] [phone] Social History Tobacco Use Types Packs/Day Years [...] or relatives? How often do you attend moravian or More than 4 times per year 05/10/2021 jehovah's witness services? Do you belong to any clubs or No 05/10/2021 organizations such as moravian groups, unions, fraternal or athletic groups, or [...] Telephone Encounter - Carl Oneal M.D. - 06/02/2020 2:22 PM CDT Ms. Colon called requesting biopsy results. I told her that a portal letter should have been sent yesterday which she states she has not seen anything and is unsure if she is even on the portal, and Itold her that then she should be getting a hard copy. I discussed with her that the skin biopsy taken from the upper central sternum did show an infiltrative squamous cell carcinoma and then that requires Mohs surgery, and the Mohs surgery was discussed and she understands. 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 Given her concerns, I placed an order for her and asked that Kate zamudio schedulers contact her to schedule the Mohs surgery to expedite it as opposed to waiting for a hard copy to get in her mail as she is not sure if she has the portal. She was very appreciative and all questions answered. Carl Oneal M.D. CT CT Job ID: [id number] Telephone Encounter - Ginny Price - 06/02/2020 10:56 AM CDT Reason for Communication: Darcy called for Biopsy results from Dr Oneal Current Can Nursing/Provider leave a detailed message?: Y Did the patient refuse triage through Nurse line? (for symptom based concerns): N Action Needed: Call with results Name of Medication (if relevant): NA documented in this encounter Plan of Treatment Upcoming Encounters Date Type Specialty Care Team Description 12/09/2021 Comprehensive Visit Dermatology Radha Wirght M.D. [address] [place], [place] [phone] (Wo rk) 12/26/2021 Procedure visit Dermatology Cristi Wright M.D. [address] [place], [place] [phone] (Wo rk) documented as of this encounter Visit Diagnoses Not on filedocumented in this encounter
--- OUTSIDE RECORDS SUMMARY | 2021-12-06 10:31 | XMS_ITS | Encounter Summary ---
:1940 Author Organization [facility] Address [address] [place] [address] Care Team Providers Name Role Phone Unavailable Primary Care Provider Unavailable Encounter Details Date Type Department Care Team Description 02/15/2018 Abstract [facility] MARCELO Caldera ea Provider, Historical [address] [place] [phone] Social History Tobacco Use Types Packs/Day Years [...] or slept in a fdc (including now)? Sex Assigned at Date Recorded Not on file documented as of this encounter Plan of Treatment Upcoming Encounters Date Type Specialty Care Team Description 12/09/2021 Comprehensive Visit Dermatology Radha Wright M.D. [address] [place], [place] [phone] (Wo rk) 12/26/2021 Procedure visit Dermatology Cristi Wright M.D. [address] [place], [place] [phone] (Wo rk) documented as of this encounter Visit Diagnoses Not on filedocumented in this encounter
[2021-12-06 12:27] LABS: Vitamin B12* > 1000 pg/mL (243-894)
== END 2021-12-06 09:45 | disposition home or self-care (01) ==
PROVIDERS: Visit Provider Family Medicine
DX: R41.3 Other amnesia (principal); R25.1 Tremor, unspecified
CPT/HCPCS: 82607; 84443

== ENCOUNTER 2021-12-18 10:45 | Emergency (ER) | payer MEDICARE, OTHER, SELFPAY ==
[2021-12-18 10:52] VITALS: BP 167/89; PULSE 77; RESP 18; TEMP 36.6; O2SAT 94; BMI 23.8
--- NOTE | 2021-12-18 11:05 | CRLHL7_ITS ---
For Patients: As a result of the Century Cures Act, medical imaging exams and procedure reports are released immediately into your electronic medical record. You may view this report before your referring provider. If you have questions, please contact your health care provider. INDICATION: Fall. TECHNIQUE: Noncontrast CT images acquired through the cervical spine. COMPARISON: None. FINDINGS: Mild leftward cervical curvature. Straightening of the cervical lordosis. Mild grade 1 anterolisthesis of C3 on C4 and C4 on C5. No acute fracture or traumatic subluxation. Shallow multilevel posterior disc osteophyte complexes contribute up to mild spinal canal narrowing at C4-5. Multilevel uncinate spurring and facet arthropathy contributing up to moderate neural foraminal narrowing on the left at C4-5. Pleural-parenchymal scarring in the lung apices. IMPRESSION: 1. No acute fracture or traumatic subluxation. 2. Multilevel cervical spondylosis. Please note that all CT scans at this facility use dose modulation, iterative reconstruction, and/or weight-based dosing when appropriate to reduce radiation dose to as low as reasonably achievable. Dictated by Harish Scruggs MD @ 12/18/2021 11:59:00 AM (Electronically Signed)
--- NOTE | 2021-12-18 11:05 | CRLHL7_ITS ---
For Patients: As a result of the Century Cures Act, medical imaging exams and procedure reports are released immediately into your electronic medical record. You may view this report before your referring provider. If you have questions, please contact your health care provider. INDICATION: Fall. TECHNIQUE: Noncontrast CT images acquired through the brain. COMPARISON: None. FINDINGS: Small bandlike hyperattenuation within the central armin measuring up to 11 mm (series 4, image 16). No associated mass effect or adjacent parenchymal edema. Mild diffuse cerebral volume loss. No mass effect or midline shift. The rosales-white differentiation is maintained. No pathologic extra-axial fluid collection. Scattered hypoattenuation in the supratentorial white matter, suggestive of mild chronic microvascular changes. Intracranial atherosclerotic calcifications. Right parietal subgaleal hematoma. No calvarial fracture. The globes are symmetric. The fcns-hv-bplgpset opacification right posterior ethmoid air cells. The mastoid air cells are clear. IMPRESSION: 1. Small bandlike hyperattenuation within the central armin is indeterminate, though differential considerations include mineralization, underlying lesion such as a cavernous malformation, or less likely, recent parenchymal hemorrhage. Comparison with prior exams, if available, would be recommended. If no comparison exams are available, follow-up CT would be recommended to assess for stability. Additionally, MRI with susceptibility weighted imaging may be helpful for further assessment. 2. Right parietal subgaleal hematoma. No calvarial fracture. Please note that all CT scans at this facility use dose modulation, iterative reconstruction, and/or weight-based dosing when appropriate to reduce radiation dose to as low as reasonably achievable. Dictated by Harish Scruggs MD @ 12/18/2021 11:52:49 AM (Electronically Signed)
--- NOTE | 2021-12-18 11:13 | ED.GENADULT ---
HPI - General Adult General Chief complaint: Fall/Minor Trauma Stated complaint: fell, hit head Time Seen by Provider: 12/18/21 10:52 Source: patient Mode of arrival: ambulatory Limitations: no limitations History of Present Illness HPI narrative: Patient is a estefani 81-year-old female coming in today after falling down the stairs. She states that she missed 2 steps and fell backwards hitting her head on the concrete garage floor. She states that she has been dealing with balance issues for the last 3 weeks or so, she does have an appointment at the [facility] coming up to have a discussion about her symptoms. Since falling she has a very mild headache. This occurred approximately 30 minutes ago. She denies any nausea or vomiting. No blurry vision. No ringing in her ears. She denies any pain in the extremities. She does state that her entire neck feels very sore, she does have chronic neck pain with the above her baseline. She complains of a bump on her scalp. She denies taking any blood thinners. Related Data Home Medications Medication Instructions Recorded Confirmed acetaminophen 650 mg 1,300 mg PO Q8H 12/05/21 12/05/21 tablet,extended release cholecalciferol (vitamin D3) 25 25 mcg PO QDAY 12/05/21 12/05/21 mcg (1,000 unit) tablet omeprazole 20 mg capsule,delayed 20 mg PO QDAY 12/05/21 12/05/21 release Previous Rx's Medication Instructions Recorded cyanocobalamin (vitamin B-12) 1,000 mcg PO QDAY #30 caps 11/08/21 1,000 mcg capsule bupropion HCl 150 mg tablet,12 hr 150 mg PO QDAY #90 tabs 12/06/21 sustained-release escitalopram oxalate 10 mg tablet 10 mg PO QDAY #90 tabs 12/06/21 (Lexapro) hydrochlorothiazide 25 mg tablet 25 mg PO QDAY #90 tabs 12/06/21 Allergies Allergy/AdvReac Type Severity Reaction Status Date / Time No Known Drug Allergies Allergy Verified 12/05/21 10:28 Review of Systems Status of ROS: Reports: 10 or more systems reviewed and unremarkable except as noted in History and below [facility] Medical History Acute bronchitis Chronic neck pain Encounter for counseling regarding advance directives (03/21/10) Encounter for long-term (current) use of non-steroidal anti-inflammatories History of diplopia History of malignant neoplasm of left breast (01/2016) Memory problem Postmenopausal atrophic vaginitis Vitamin B12 deficiency Surgical History History of basal cell carcinoma (BCC) excision (2016) History of bunionectomy of right great toe (2011) History of hysterectomy (2006) History of lumpectomy of left breast (2015) History of squamous cell carcinoma excision (2002) History of third molar tooth extraction History of tonsillectomy and adenoidectomy (1951) 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 Brother Prostate cancer Brother Prostate cancer Social History Narrative: : Retired, 3 adult children. Ex cigarette smoker quit at age 41, 22 pack years. 1-2 drinks per week. Exercise involving walking Smoking Status: Former smoker How often do you have a drink containing alcohol: 2-4 times a month AUDIT-C Alcohol total score: 2 Non-prescribed substance use: denies use Little interest or pleasure in doing things: several days Feeling down, depressed, or hopeless: not at all Exam Narrative: Exam Narrative: Well-nourished well-developed patient in no acute distress. Alert and oriented. Answers questions appropriately. Mood and affect are appropriate. Thoughts are goal oriented and rational. No tangential or magical thinking noted. Patient speaks in full sentences without needing to catch their breath. Speech is not slurred or pressured. GCS is 15. There is no obvious bleeding. She is speaking and breathing without any difficulty. HEENT: Normocephalic. Pupils are equally round reactive to light. Extraocular muscles are intact. Conjunctivae are moist without any icterus noted. Moist mucous membranes. Posterior pharynx is normal. Neck is supple. She has no point tenderness over the cervical spine, she has diffuse discomfort throughout the entire neck. She still has good range of motion despite this discomfort. She has a rather large hematoma over of right parietal scalp. Cardiovascular: Heart is regular rate and rhythm S1 and S2 are present without any murmurs. Lungs: Clear to auscultation bilaterally no wheezes rhonchi or rales are appreciated. Patient takes deep breaths without any discomfort. Abdomen: Soft and nontender nondistended with normal bowel sounds. Extremities: Bilateral lower extremities are without edema. Skin: Well perfused. Strength is 5/5 of the upper and lower extremities. Reflexes are 2+ and symmetric at the knees. Cranial nerves 3-12 are normal. There is no nystagmus either horizontally or vertically. Const: Vital Signs, click to edit/add: Vital Signs - 24 hr 12/18/21 10:52 12/18/21 13:00 12/18/21 13:00 Temperature 98 F Pulse Rate [Pulse Oximeter] 77 72 Respiratory Rate 18 14 Blood Pressure [Ri ght Upper Arm] 167/89 H 150/79 H Pulse Oximetry 94 96 96 Oxygen Delivery Me thod Room Air Room Air 12/18/21 14:33 12/18/21 15:58 Temperature Pulse Rate [Pulse Oximeter] 83 69 Respiratory Rate 18 18 Blood Pressure [Ri ght Upper Arm] 127/69 139/78 Pulse Oximetry 95 95 Oxygen Delivery Me thod Room Air Course Course Hospital Course: Patient went to CT for head and neck images. Neck showed no acute pathology. Head CT showed an indeterminate lesion that could potentially be a parenchymal hemorrhage. According to the radiologist, patient did have a head CT done at [facility] April of this year. Did contact [facility] and they had an MRI, but no CT. The MRI report did not mention that specific area. Therefore patient was monitored for 6 hours until a repeat CT scan was done. During her time of monitoring she remained hemodynamically stable without any neurologic deficits. She had a very mild headache which did not worsen. Repeat head CT was done: No significant change was noticed, lesion likely not hemorrhage. Patient was observed for a total of 7 hours. Vital Signs Vital signs: Initial Vital Signs Temperature 98 F 12/18/21 10:52 Temperature Source Temporal Artery Scan 12/18/21 10:52 Pulse Rate 77 12/18/21 10:52 Respiratory Rate 18 12/18/21 10:52 Blood Pressure 167/89 H 12/18/21 10:52 Blood Pressure Mean 115 12/18/21 10:52 Blood Pressure Position Supine 12/18/21 10:52 Pulse Oximetry 94 12/18/21 10:52 Oxygen Delivery Method 12/18/21 10:52 Vital Signs Temperature 98 F 12/18/21 10:52 Pulse Rate 77 12/18/21 10:52 Respiratory Rate 18 12/18/21 10:52 Blood Pressure 167/89 H 12/18/21 10:52 Pulse Oximetry 94 12/18/21 10:52 Oxygen Delivery Method 12/18/21 10:52 Temperature 98 F 12/18/21 10:52 Pulse Rate 69 12/18/21 15:58 Respiratory Rate 18 12/18/21 15:58 Blood Pressure 139/78 12/18/21 15:58 Pulse Oximetry 95 12/18/21 15:58 Oxygen Delivery Method 12/18/21 15:58 Medical Decision Making MDM Narrative Medical decision making narrative: 81-year-old female status post fall with a scalp hematoma, no intraparenchymal hemorrhage. Medical Records Medical records reviewed: Yes I reviewed the patient's medical records Lab Data Lab results reviewed: Yes I reviewed the patient's lab results Labs: Lab Results 12/18/21 Range/Units 12:50 SARS-CoV-2 (PCR) Negative SARS-CoV-2 (Negative) Imaging Data CT scan - head: Attestation: I have reviewed the pertinent imaging results. Radiologist's impression: Noncontrast CT images acquired through the brain. COMPARISON: None. FINDINGS: Small bandlike hyperattenuation within the central armin measuring up to 11 mm (series 4, image 16). No associated mass effect or adjacent parenchymal edema. Mild diffuse cerebral volume loss. No mass effect or midline shift. The rosales-white differentiation is maintained. No pathologic extra-axial fluid collection. Scattered hypoattenuation in the supratentorial white matter, suggestive of mild chronic microvascular changes. Intracranial atherosclerotic calcifications. Right parietal subgaleal hematoma. No calvarial fracture. The globes are symmetric. The [id number] opacification right posterior ethmoid air cells. The mastoid air cells are clear. IMPRESSION: 1. Small bandlike hyperattenuation within the central armin is indeterminate, though differential considerations include mineralization, underlying lesion such as a cavernous malformation, or less likely, recent parenchymal hemorrhage. Comparison with prior exams, if available, would be recommended. If no comparison exams are available, follow-up CT would be recommended to assess for stability. Additionally, MRI with susceptibility weighted imaging may be helpful for further assessment. 2. Right parietal subgaleal hematoma. No calvarial fracture. Cervical spine CT: Attestation: I have reviewed the pertinent imaging results. Radiologist's impression: Noncontrast CT images acquired through the cervical spine. COMPARISON: None. FINDINGS: Mild leftward cervical curvature. Straightening of the cervical lordosis. Mild grade 1 anterolisthesis of C3 on C4 and C4 on C5. No acute fracture or traumatic subluxation. Shallow multilevel posterior disc osteophyte complexes contribute up to mild spinal canal narrowing at C4-5. Multilevel uncinate spurring and facet arthropathy contributing up to moderate neural foraminal narrowing on the left at C4-5. Pleural-parenchymal scarring in the lung apices. IMPRESSION: 1. No acute fracture or traumatic subluxation. 2. Multilevel cervical spondylosis. Repeat head CT: Attestation: I have reviewed the pertinent imaging results. Radiologist's impression: Fall. Hyperattenuation in the armin. Technique Noncontrast CT images acquired through the brain. COMPARISON: CT brain 12/18/2021 earlier the same day. FINDINGS: Small, bandlike hyperattenuation within the central armin is not significantly changed. No associated mass effect or parenchymal edema. Mild diffuse cerebral volume loss. The rosales-white differentiation is maintained. No midline shift. Suggested mild chronic microvascular ischemic changes. Intracranial atherosclerotic calcifications. Right parietal subgaleal hematoma. No calvarial fracture. Partial opacification of right posterior ethmoid air cells. The mastoid air cells are clear. IMPRESSION: 1. No significant change compared to the prior CT. 2. Stable small bandlike hyperattenuation within the central armin. There is no associated parenchymal edema or mass effect. Findings are favored to represent mineralization or potentially an underlying lesion such as a cavernous malformation. MRI brain with susceptibility weighted imaging could provide further assessment as clinically warranted. Discharge Plan Discharge Clinical Impression: Hematoma of parietal scalp, Closed head injury, Fall Patient Disposition: Home, Self-Care Condition: Stable Additional Instructions: Expect increased soreness of the neck and shoulders tomorrow. Okay to use a heating pad to the area, do not apply heat directly to skin. Okay to use Tylenol as needed for headache or aches. Return to the ER if you develop vomiting, confusion. Prescriptions: No Action cholecalciferol (vitamin D3) 25 mcg (1,000 unit) tablet 25 mcg PO QDAY acetaminophen 650 mg tablet extended release 1,300 mg PO Q8H omeprazole 20 mg capsule,delayed release(DR/EC) 20 mg PO QDAY escitalopram oxalate [Lexapro] 10 mg tablet 10 mg PO QDAY Qty: 90 0RF bupropion HCl 150 mg tablet sustained-release 12 hr 150 mg PO QDAY Qty: 90 4RF hydrochlorothiazide 25 mg tablet 25 mg PO QDAY Qty: 90 4RF cyanocobalamin (vitamin B-12) 1,000 mcg capsule 1,000 mcg PO QDAY Qty: 30 0RF Follow Up/Referrals: Gisele Curran MD [Primary Care Provider] - Stand Alone Forms: [employer] Info Instructions
--- OUTSIDE RECORDS SUMMARY | 2021-12-18 11:33 | XMS_ITS | Encounter Summary ---
:1940 Author Organization [facility] Address [address] [place] [id number] Care Team Providers Name Role Phone Unavailable Primary Care Provider Unavailable Reason for Visit Reason Comments Pre-visit Intake Encounter Details Date Type Department Care Team Description 05/05/2021 Clinical Communication Visit Review in Pr e-visit Intake [place], [place] [address] [place], [place] [id number] Social History Tobacco Use Types Packs/Day Years Used Date Smoking Tobacco: Former Cigarettes 0 0 Smokeless Tobacco: Never Comments: Havent smoked since 1975 Alcohol Habits Answer Date Recorded How often do you have a drink containing alcohol? 2-4 times a month 12/07/2021 How many drinks containing alcohol do you have on a 1 or 2 12/07/2021 typical day when you are drinking? How often do you have six or more drinks on one Never 12/07/2021 occasion? Social Isolation Answer Date Recorded In a typical week, how many times do you More than three edmond es a week 12/07/2021 talk on the phone with family, friends, or neighbors? How often do you get together with friends Twice a week 12/07/2021 or relatives? How often do you attend latter day or More than 4 times per year 12/07/2021 sikhism services? Do you belong to any clubs or Yes 12/07/2021 organizations such as latter day groups, unions, fraternal or athletic groups, or school groups? How often do you attend meetings of the More than 4 times pe r year 12/07/2021 clubs or organizations you belong to? Are you now , , , 12/07/2021 , never or living with a partner? Physical Activity Answer Date Recorded On average, how many days per week do you engage in moderate to 0 days 12/07/2021 strenuous exercise (like walking fast, running, jogging, dancing, swimming, biking, or other activities that cause a light or heavy sweat)? On average, how many minutes do you engage in exercise at th is 0 min 12/07/2021 level? Stress Answer Date Recorded Do you feel stress - tense, restless, nervous, or To some ex tent 12/07/2021 anxious, or unable to sleep at night because your mind is troubled all the time - these days? Financial Resource Strain Answer Date Recorded How hard is it for you to pay for the very basics like Not h juan at all 12/07/2021 food, housing, medical care, and heating? Intimate Partner Violence Answer Date Recorded Within the last year, have you been afraid of your partner o r No 12/07/2021 ex-partner? Within the last year, have you been humiliated or emotionall y No 12/07/2021 abused in other ways by your partner or ex-partner? Within the last year, have you been kicked, hit, slapped, or No 12/07/2021 otherwise physically hurt by your partner or ex-partner? Within the last year, have you been raped or forced to have any No 12/07/2021 kind of sexual activity by your partner or ex-partner? Food Insecurity Answer Date Recorded Within the past 12 months, you worried that your food would Never true 12/07/2021 run out before you got money to buy more. Within the past 12 months, the food you bought just didn't N ever true 12/07/2021 last and you didn't have money to get more. Transportation Needs Answer Date Recorded In the past 12 months, has lack of transportation kept you f rom No 12/07/2021 medical appointments or from getting medications? In the past 12 months, has lack of transportation kept you f rom No 12/07/2021 meetings, work, or getting things needed for daily living? Housing Stability Answer Date Recorded In the last 12 months, was there a time when you were not ab le No 12/07/2021 to pay the mortgage or rent on time? In the last 12 months, how many places have you lived? 2 12/07/2021 In the last 12 months, was there a time when you did not hav e a No 12/07/[address] sleep or slept in a halfway (including now)? Education Answer Date Recorded What is the highest level of school you have completed or 12 th grade 09/21/2020 the highest degree you have received? Sex Assigned at Date Recorded Female 12/07/2021 9:06 AM CDT documented as of this encounter Plan of Treatment Upcoming Encounters Date Type Specialty Care Team Description 12/20/2021 Clinical Communication Admitting/Central Scheduling 12/22/2021 Office Visit Neurology Valerie-Danita Rhodes M.D., Ph.D. [address] [place] [id number] 12/26/2021 Procedure visit Dermatology Cristi Wright M.D. [address] [place] [address] documented as of this encounter Visit Diagnoses Not on filedocumented in this encounter
--- OUTSIDE RECORDS SUMMARY | 2021-12-18 11:33 | XMS_ITS | Encounter Summary ---
:1940 Author Organization [facility] Address [address] [place] [address] Care Team Providers Name Role Phone Elsewhere, Pcp Primary Care Provider Unavailable Reason for Visit Appointment Request (Routine) - Closed Specialty Diagnoses / Procedures Referred By Contact Refer red To Contact Dermatology Referral ID Status Reason Start Date Expiration Date Visits Requ ested Visits Authorized [id number] Closed 11/16/2021 11/16/2022 1 Encounter Details Date Type Department Care Team Description 12/09/2021 Comprehensive Visit Department of Cristi Wright Kerat osis Actinic (Primary Dx); Dermatology in Jacqueline Romero Keratosis Seborrheic Inflamed; [place], [place] [address] [email or web address] Basal Cell Carcinoma Of Skin Of Scalp An d Neck [address] [place] [phone] Social History Tobacco Use Types Packs/Day Years [...] More than 4 times per year 12/07/2021 sabianism services? Do you belong to any clubs or Yes 12/07/2021 organizations such as spiritism groups, unions, fraternal [...] AM CDT documented as of this encounter Consult Notes Jeovany Mar M.D. - 12/09/2021 8:00 AM CDT Patient seen and discussed with supervising technology methodology consultant, Dr. Cristi Wright, who evaluated the patientand concurs with the assessment and plan. Correspondence to Dr. Cristi Wright MD CHIEF COMPLAINT / REASON FOR VISIT Discuss of treatment options for basal cell carcinoma, left neck SUBJECTIVE HISTORY OF PRESENT ILLNESS Ms. Darcy Colon is a 81 y.o. female with a history of multiple nonmelanoma skin cancers who presents today for a discussion of treatment options regarding a recently biopsied superficial and nodular basal cell carcinoma involving the left lateral neck (09/29/2021). At time of biopsy, this was measured at 0.9 x 2.0 cm, and only underwent partial lesion biopsy. This site is currently scheduled for Mohs surgery on 12/26/[address] Wright. The patient would like to inquire about alternative treatment options, such as topical Efudex versus electrodesiccation and curettage. She does not have specific concerns about Mohs regarding complications, scar formation, or healing process - but would gener ally prefer the least invasive treatment option. She is accompanied at today's visit by her . Additionally, she has noticed some rough scaly spots on her forehead, as well as left retroauricularscalp that have been persistent despite moisturization. She would like these evaluated for possible skin cancer. She denies any discomfort spontaneous bleeding, or rapid growth with these sites. Ms. Darcy Colon tries to be diligent with photoprotective measures. REVIEW OF SYSTEMS The patient feels well. Denies any weight loss, fevers or recent changes in her state of health. PAST MEDICAL HISTORY History of multiple nonmelanoma skin cancers, including grade 2 squamous cell carcinoma, upper central sternum, status post Mohs surgery on 07/02/[address] Wright FAMILY HISTORY No history of melanoma. OBJECTIVE PHYSICAL EXAM General: Awake, alert, in no acute distress, and with appropriate affect. Skin: Limited skin examination today of the face and neck, per patient request. Involving the left lateral neck is an approximately 2 by 1 cm cm ovoid scaling erythematous patch, with anterior portion appearing hyperpigmented atrophic consistent with biopsy site. Involving the left retroauricular scalp is an approximately 1 cm pink scaling patch. ASSESSMENT / PLAN ASSESSMENT / PLAN #1 Superficial and nodular basal cell carcinoma 2cm, left lateral neck, pending Mohs surgery on 12/26/[address] Wright #2 Discussion of treatment options At today's visit, we did discuss that given the location of the lateral neck, in addition to size ofinitial lesion at approximately 2 cm, Mohs surgery is the best treatment for this specific lesion. While some superficial basal cell carcinomas can be treated with Efudex versus electrodesiccation and curettage, these treatment modalities would likely increase her risk of recurrence if performed in this location on this specific lesion. We also explained to the patient that the lesion was only partially sampled and that the rest of the scaling patch on her lateral neck is likely consistent with contiguous BCC and not eczema as she suspected. We did answer all the patient's questions regarding this procedure, and she feels comfortable proceeding with Mohs surgery as scheduled on 12/26/2021. 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 At this time, we did discuss with the patient that we can proceed with cryotherapy treatment today, and if not resolved by time of Mohs surgery on 12/26, will plan to proceed with biopsy to evaluate for malignancy. We did offer biopsy of the lesion today for possible treatment of any underlying malignancy at the same time of her upcoming Mohs surgery, but the patient politely declined. Given the precancerous nature of this lesion(s), treatment is medically indicated. After discussion of the risks, benefits and alternatives to treatment with cryotherapy, informed consent was obtained.We treated a total of 1 lesion(s) with two 20-second freeze-thaw cycles of liquid nitrogen cryotherapy. The patient tolerated the procedure well. Aftercare instructions were provided in written and verbal form to the patient. Should any of these lesions recur, the patient should return for biopsy or further evaluation. Discussed the risks, benefits, alternatives, and the necessity of other members ofthe healthcare team participating in the procedure. All questions answered and consent given. #4 Inflamed seborrheic keratoses vs lentigo, left upper forehead The benign nature of this lesion(s) was discussed with the patient. Given the inflamed nature of this lesion(s), its treatment is medically indicated. We treated a total of 1 lesion(s) with one 20-second freeze-thaw cycle of liquid nitrogen cryotherapy. The patient tolerated the procedure well. Aftercare instructions were provided in written and verbal form to the patient. Should any of these lesionsrecur, the patient should return for further evaluation. All questions answered. INFORMED CONSENT Discussed the risks, benefits, alternatives, and the necessity of other members of the healthcare team participating in the procedure. All questions answered and consent given. PATIENT EDUCATION Ready to learn. No apparent learning barriers were identified. Learning preferences include listening. Explained diagnosis and treatment plan; patient/guardian of patient expressed understanding of thecontent. Jeovany Mar M.D. Associated attestation - Cristi Wright M.D. - 12/09/2021 1:32 PM CDT I saw and evaluated the patient, participating in the jorge elements of the service. I discussed the findings, assessment and plan with the resident/fellow and agree with resident/fellow???s findings andplan as documented in the resident/fellow's note. I was immediately available for the entirety of the procedure(s) and present for the jorge and critical portions. Cristi Wright MD documented in this encounter Plan of Treatment Upcoming Encounters Date Type Specialty Care Team Description 12/20/2021 Clinical Communication Admitting/Central Scheduling 12/22/2021 Office Visit Neurology [facility]-Danita Rhodes M.D., Ph.D. [address] [place] [address] 12/26/2021 Procedure visit Dermatology Cristi Wright M.D. [address] [place] [address] documented as of this encounter Visit Diagnoses Diagnosis Keratosis Actinic - Primary Keratosis Seborrheic Inflamed Basal Cell Carcinoma Of Skin Of Scalp An d Neck documented in this encounter Additional Health Concerns Assessment Noted Time PHQ-9 Depression Total Score: 5 06/12/2021 6:15 PM CDT documented as of this encounter Care Teams Employment Training Specialist Relationship Specialty Start Date End Date Elsewhere, Pcp PCP - General Internal Medicine 05/10/21 documented as of this encounter
--- OUTSIDE RECORDS SUMMARY | 2021-12-18 11:33 | XMS_ITS | Encounter Summary ---
:[address] [facility] Address [address] [place] [address] Care Team Providers Name Role Phone Unavailable Primary Care Provider Unavailable Reason for Visit Outpatient (Routine) - Closed Specialty Diagnoses / Procedures Referred By Contact Refer red To Contact Pulmonary Medicine Diagnoses [facility]queline [address] [place] [address] Referral ID Status Reason Start Date Expiration Date Visits Requ ested Visits Authorized [id number] Closed 09/16/2020 09/16/2021 1 1 Encounter Details Date Type Department Care Team Description 09/22/2020 Comprehensive Visit Division of Sammi Catalan Chronic (Primary Dx); Pulmonary Medicine Jacqueline Romero Bronchitis Acute in [place], [facility] [address] [place], [place] [address] [facility] [address] [place], [place] [phone] (Work) [phone] Social History Tobacco Use Types Packs/Day Years [...] More than 4 times per year 12/07/2021 rastafarian services? Do you belong to any clubs or Yes 12/07/2021 organizations such as buddhism groups, unions, fraternal [...] AM CDT documented as of this encounter Last Filed [...] CDT documented in this encounter Consult Notes Sammi Catalan M.D. - 09/22/2020 9:00 AM CDT [...] concerned of her who is hospitalized at [facility] for cough and heartfailure symptoms. Home [...] lobe. No pleural effusion, bronchiectasis or adenopathy. BOOTH MANAGER swab for COVID 19: Undetected ASSESSMENT / [...] nursing and patient's 's care team at [facility]. Card given for patient to call in 4-6 weeks after follow-up CT chest. documented in this encounter Plan of Treatment Upcoming Encounters Date Type Specialty Care Team Description 12/20/2021 Clinical Communication Admitting/Central Scheduling 12/22/2021 Office Visit Neurology [facility]-Danita Rhodes M.D., Ph.D. [address] [place] [phone] 12/26/2021 Procedure visit Dermatology Cristi Wright M.D. [address] [place] [address] documented as of this encounter Visit Diagnoses Diagnosis Chronic Cough - Primary Bronchitis Acute documented in this encounter
--- OUTSIDE RECORDS SUMMARY | 2021-12-18 11:33 | XMS_ITS | Encounter Summary ---
:1940 Author Organization [facility] Address [address] [place] [address] Care Team Providers Name Role Phone Elsewhere, Pcp Primary Care Provider Unavailable Reason for Visit Appointment Request (Routine) - Closed Specialty Diagnoses / Procedures Referred By Contact Refer red To Contact Dermatology Diagnoses Lentigo Abnormality Pigment Referral ID Status Reason Start Date Expiration Date Visits Requ ested Visits Authorized [id number] Closed 09/26/2021 09/26/2022 1 1 Encounter Details Date Type Department Care Team Description 09/29/2021 Comprehensive Visit Department of Charity Yap is Actinic (Primary Dx); [facility] [place], [place] P.Lilian, M.S. Nevi Multiple; [address] Angioma Chiang; [place], [place] Keratosis Mic orrheic; [phone] Screening Examination Skin Cancer; [phone] Lentigo; (Work) Tumor Skin Uncertain Behavior Social [...] clubs or Yes 12/07/2021 organizations such as anabaptism groups, unions, fraternal or athletic groups, or [...] found Supervised by: Dr. Maria G Sosa ([phone]) Supervising personal consultant, Dr. Sosa, was immediately available but [...] the patient by letter. Patient given pamphlet [id number]. #6 Chiang Angiomas #7 Seborrheic Keratoses #8 [...] Communication Admitting/Central Scheduling 12/22/2021 Office Visit Neurology [facility]-Danita Rhodes M.D., Ph.D. [address] [place] [phone] 12/26/2021 Procedure visit Dermatology Cristi Wright M.D. [address] [place] [phone] documented as of this encounter Procedures Procedure Name Priority Date/Time Associated Diagnosis Comme nts DERMATOPATHOLOGY Routine 09/29/2021 3:00 PM Resul ts for this CDT procedure are i n the results section. documented in this encounter Results Dermatopathology (09/29/2021 3:00 PM CDT) Component Value Ref Test Analysis Performed At [facility] Range Method Time Signature 10/05/2021 [facility] 3:10 PM CDT Participated in Ruth 10/05/2021 [facility] the Interpretation Jacqueline Brizuela 3:10 PM CDT -Pathology Resident Report Rylee IAdalid 10/05/2021 [facility] electronically Jacqueline Miller 3:10 PM CDT signed by Gross Description Received in formalin labeled with the patient's n dave, 10/05/2021 [facility] medical record number, and left lateral [...] by CARLOS ALBERTO. Interpretation FINAL DIAGNOSIS 10/05/2021 [facility] A. 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 Arlen R Wahlstedt P.A.-C., M.S. LAB PATH DERM ORDERABLE S Performing Organization Address City/State/ZIP Code Phon e Number [facility] - [address] [place], [place] [address] [facility] [place] [address] Laboratories-[facility] [address] documented in this encounter Visit Diagnoses Diagnosis Keratosis Actinic - Primary Dermatoheliosis Nevi Multiple Angioma Chiang Keratosis Seborrheic Screening Examination Skin Cancer Lentigo Tumor Skin Uncertain Behavior documented in this encounter Additional Health Concerns Assessment Noted Time PHQ-9 Depression Total Score: 5 06/12/2021 6:15 PM CDT documented as of this encounter Care Teams Line Decorator Relationship Specialty Start Date End Date Elsewhere, Pcp PCP - General Internal Medicine 05/10/21 documented as of this encounter
--- OUTSIDE RECORDS SUMMARY | 2021-12-18 11:33 | XMS_ITS | Encounter Summary ---
:[address] [facility] Address [address] [place] [address] Care Team Providers Name Role Phone Elsewhere, Pcp Primary Care Provider Unavailable Encounter Details Date Type Department Care Team Description 05/10/2021 Hospital Encounter Department of [facility], Tremor Laboratory Medicine Danita Sorensen M.D., and PathologyArnold Ph.D. Building, in [address] [place] [address] [place], [place] [phone] (Wo rk) [phone] Social History Tobacco Use Types Packs/Day Years [...] More than 4 times per year 12/07/2021 worship services? Do you belong to any clubs or Yes 12/07/2021 organizations such as mormonism groups, unions, fraternal [...] AM CDT documented as of this encounter Medications at [...] Visit Neurology [facility]erie-Danita Rhodes M.D., Ph.D. [address] [place] [phone] 12/26/2021 Procedure visit Dermatology Cristi Wright M.D. [address] [place] [address], [place] [address] documented as of this encounter Procedures Procedure Name Priority Date/Time Associated Diagnosis Comme nts THYROID FUNCTION Routine 05/10/2021 3:30 PM Tremor Resul ts for this CASCADE, S CDT procedure are i n the results section. documented in this encounter Results Thyroid Function Morris (05/10/2021 3:30 PM CDT) P athologist Signature TSH, Sensitive 2.3 0.3 - 4.2 05/10/2021 DTL mIU/L 4:42 PM CDT Specimen Anatomical Collection Method Collection Time Receive d Time (Source) Location / / Volume Laterality Blood (Blood, 05/10/2021 3:30 PM 05/11/19 4:14 Venous) CDT PM CDT Danita Prabhakar M.D., Ph.D. LAB BLOOD ADD-ON Performing Organization Address City/State/ZIP Code Phon e Number [facility] - [address] [place], [place] [address] [facility] [place] [address] Laboratories-[facility] 200 [facility] documented in this encounter Visit Diagnoses Diagnosis Tremor documented in this encounter Care Teams Sewage Plant Operator Relationship Specialty Start Date End Date Elsewhere, Pcp PCP - General Internal Medicine 05/10/21 documented as of this encounter
--- OUTSIDE RECORDS SUMMARY | 2021-12-18 11:33 | XMS_ITS | Encounter Summary ---
:1940 Author Organization [facility] Address [address] [place] [address] Care Team Providers Name Role Phone Unavailable Primary Care Provider Unavailable Encounter Details Date Type Department Care Team Description 10/12/2020 Orders Only [facility] PCP TH Sa marisol Garrido M.D. [address] [place], [place] [phone] (Wo rk) Social History [...] or relatives? How often do you attend alevism or More than 4 times per year 12/07/2021 anabaptist services? Do you belong to any clubs or Yes 12/07/2021 organizations such as alevism groups, unions, fraternal or athletic groups, or [...] Visit Neurology [facility]-Danita Rhodes M.D., Ph.D. [address] [place] [address] 12/26/2021 Procedure visit Dermatology Cristi Wright M.D. [address] [place] [address] documented as of this encounter Visit Diagnoses Not on filedocumented in this encounter
--- OUTSIDE RECORDS SUMMARY | 2021-12-18 11:33 | XMS_ITS | Encounter Summary ---
:1940 Author Organization [facility] Address [address] [place] [address] Care Team Providers Name Role Phone Unavailable [...] More than 4 times per year 12/07/2021 jehovah's witness services? Do you belong to any clubs or Yes 12/07/2021 organizations such as christian groups, unions, fraternal [...] (including now)? Sex Assigned at Date Recorded Female 12/07/2021 9:06 AM CDT documented as of this encounter Plan of Treatment Upcoming Encounters Date Type Specialty Care Team Description 12/20/2021 Clinical Communication Admitting/Central Scheduling 12/22/2021 Office Visit Neurology [facility]-Danita Rhodes M.D., Ph.D. [address] [place] [phone] 12/26/2021 Procedure visit Dermatology Cristi Wright M.D. [address] [place] [phone] documented as of this encounter Procedures Procedure [...]
--- OUTSIDE RECORDS SUMMARY | 2021-12-18 11:33 | XMS_ITS | Encounter Summary ---
:1940 Author Organization [facility] Address [address] [place] [address] Care Team Providers Name Role Phone Elsewhere, [...] More than 4 times per year 12/07/2021 caodaism services? Do you belong to any clubs or Yes 12/07/2021 organizations such as protestant groups, unions, fraternal [...] slept in a skilled nursing (including now)? Education Answer Date Recorded What is the highest level of school you have completed or 12 th grade 09/21/2020 the highest degree you have received? Sex Assigned at Date Recorded Female 12/07/2021 9:06 AM CDT documented as of this encounter Plan of Treatment Upcoming Encounters Date Type Specialty Care Team Description 12/20/2021 Clinical Communication Admitting/Central Scheduling 12/22/2021 Office Visit Neurology [facility]-Danita Rhodes M.D., Ph.D. [address] [place] [phone] 12/26/2021 Procedure visit Dermatology Cristi Wright M.D. [address] [place] [address] documented as of this encounter Procedures Procedure [...] documented as of this encounter Care Teams Virginia Line Attendant Relationship Specialty Start Date End Date Elsewhere, Pcp PCP - General Internal Medicine 05/10/21 documented as of this encounter
--- OUTSIDE RECORDS SUMMARY | 2021-12-18 11:33 | XMS_ITS | Encounter Summary ---
:1940 Author Organization [facility] Address [address] [place] [address] Care Team Providers Name Role Phone Unavailable [...] or relatives? How often do you attend jain or More than 4 times per year 12/07/2021 mandaeism services? Do you belong to any clubs or Yes 12/07/2021 organizations such as jain groups, unions, fraternal or athletic groups, or [...] Communication Admitting/Central Scheduling 12/22/2021 Office Visit Neurology [facility]-Danita Rhodes M.D., Ph.D. [address] [place] [phone] 12/26/2021 Procedure visit Dermatology Cristi Wright M.D. [address] [place] [phone] documented as of this encounter Procedures Procedure [...]
--- OUTSIDE RECORDS SUMMARY | 2021-12-18 11:33 | XMS_ITS | Encounter Summary ---
:1940 Author Organization [facility] Address [address] [place] [address] Care Team Providers Name Role Phone Unavailable [...] or relatives? How often do you attend hindu or More than 4 times per year 12/07/2021 shinto services? Do you belong to any clubs or Yes 12/07/2021 organizations such as hindu groups, unions, fraternal or athletic groups, or [...] Neurology [facility]-Danita Rhodes M.D., Ph.D. [address] [place] [phone] 12/26/2021 Procedure visit Dermatology Cristi Wright M.D. [address] [place] [phone] documented as of this encounter Procedures Procedure [...]
--- OUTSIDE RECORDS SUMMARY | 2021-12-18 11:33 | XMS_ITS | Encounter Summary ---
:1940 Author Organization [facility] Address [address] [place] [address] Care Team Providers Name Role Phone Unavailable [...] or relatives? How often do you attend religious or More than 4 times per year 12/07/2021 christianity services? Do you belong to any clubs or Yes 12/07/2021 organizations such as religious groups, unions, fraternal or athletic groups, or [...] Communication Admitting/Central Scheduling 12/22/2021 Office Visit Neurology [facility]-Danita Rhodes M.D., Ph.D. [address] [place] [address] 12/26/2021 Procedure visit Dermatology Cristi Wright M.D. [address] [place] [address] documented as of this encounter Procedures Procedure [...]
--- OUTSIDE RECORDS SUMMARY | 2021-12-18 11:33 | XMS_ITS | Encounter Summary ---
:1940 Author Organization [facility] Address [address] [place] [address] Care Team Providers Name Role Phone Unavailable Primary Care Provider Unavailable Reason for Referral Outpatient (Routine) - Closed Specialty Diagnoses / Procedures Referred By Contact Refer red To Contact Pulmonary Medicine Diagnoses Bronchitis Acute Gisele Curran [place] M.D. [address] [place] [address] Referral ID Status Reason Start Date Expiration Date Visits Requ ested Visits Authorized [id number] Closed 09/16/2020 09/16/2021 1 1 Encounter Details Date Type Department Care Team Description 09/16/2020 [facility] Gisele Curran Bronchitis Acute [facility] Jacqueline Armijo (Primary Dx) [address] [facility] [address] [place] [address] [place], [place] [phone] Social History Tobacco Use Types Packs/Day Years [...] More than 4 times per year 12/07/2021 christian services? Do you belong to any clubs or Yes 12/07/2021 organizations such as denominational groups, unions, fraternal [...] Visit Neurology Valerie-Danita Rhodes M.D., Ph.D. [address] [place] [address] 12/26/2021 Procedure visit Dermatology Cristi Wright M.D. [address] [place] [address] Scheduled Referrals Name Type Priority Associated Diagnoses [facility] Out[facility] Referral Routine Bronchitis Acut e Expected: Referral 09/16/2020 (Approximate), Expires: 09/17/2023 documented as of this encounter Visit Diagnoses Diagnosis Bronchitis Acute - Primary documented in this encounter
--- OUTSIDE RECORDS SUMMARY | 2021-12-18 11:33 | XMS_ITS | Encounter Summary ---
:1940 Author Organization [facility] Address [address] [place] [address] Care Team Providers Name Role Phone Unavailable Primary Care Provider Unavailable Encounter Details Date Type Department Care Team Description 06/30/2020 Lab Department of Laboratory Carl Oneal, Encounter For Preprocedural Laboratory Examination (COVID-19); Medicine and Pathology, M.D. Contact With And (Suspected) Exposure To COVID-19 [facility] [place], in [address] [place] [address] [place] [phone] [place] [address] [phone] Social History Tobacco Use Types Packs/Day Years [...] Neurology George-Danita Rhodes M.D., Ph.D. [address] [place] [address] 12/26/2021 Procedure visit Dermatology Cristi Wright M.D. [address] [place] [address] documented as of this encounter Procedures Procedure Name Priority Date/Time Associated Diagnosis Comme nts SARS COV-2 RNA, Routine 06/30/2020 12:17 Encounter For Results for this PCR, VARIES PM CDT Preprocedural procedure are in Laboratory Examination the r esults (COVID-19) section. Contact With And (Suspected) Exposure To COVID-19 documented in this encounter Results SARS CoV-2 RNA, PCR, Varies Asymptomatic (06/30/2020 12:17 PM CDT) [facility] Method Time Signature SARS CoV-2 Swab, [...] Drug Administration an d is used per cigarette tipper's instructions. Performance characteristics were verified by [facility] in a manner consistent with CLIA requirements. Visit the CDC website: https://www.cdc.g ov/coronavirus/ for the most recent guidelines on Coron avirus testing. Fact Sheet for Healthcare Providers: https://www.fda.gov/media/138128/downloa d Fact Sheet for Patients: https://www.fda.gov/media/410036/downloa d Specimen Anatomical Collection Method Collection Time Receive d Time (Source) Location / / Volume Laterality Varies 06/30/2020 12:17 06/30/2020 (Nasopharynx) PM CDT 12:53 PM CDT Carl Oneal M.D. LAB MICROBIOLOGY - GENERAL O RDERABLES Performing Organization Address City/State/ZIP Code Phon e Number [facility] [address] [place], [place] [address] [facility] [place] [place] [address] Laboratories-[facility] [address] documented in this encounter Visit Diagnoses Diagnosis Encounter For Preprocedural Laboratory E xamination (COVID-19) Contact With And (Suspected) Exposure To COVID-19 documented in this encounter Additional Health Concerns Infection Onset Date Last Indicated Resolved Time COVID19 Pending 06/30/2020 06/30/2020 06/30/2020 5:30 PM CDT documented as of this encounter
--- OUTSIDE RECORDS SUMMARY | 2021-12-18 11:33 | XMS_ITS | Encounter Summary ---
:1940 Author Organization [facility] Address 200 [place] [address] Care Team Providers Name Role Phone Elsewhere, Pcp Primary Care Provider Unavailable Reason for Referral MRI/CAT/PET Scan (Routine) - Closed Specialty Diagnoses / Procedures Referred By Contact Refer red To Contact Radiology Diagnoses Tremor Imbalance Non [facility] MR Brain without and with IV Contrast Jacqueline, Ph.D. 200 [place] [address] Referral ID Status Reason Start Date Expiration Date Visits Requ ested Visits Authorized [id number] Closed 05/10/2021 05/10/2022 1 1 Reason for Visit MRI/CAT/PET Scan (Routine) - Closed Specialty Diagnoses / Procedures Referred By Contact Refer red To Contact Radiology Diagnoses Tremor Imbalance Non Orthopedic Danita Prabhakar [facility] Procedures MR Brain without and with IV Contrast Jacqueline, Ph.D. 200 [place] [address] Referral ID Status Reason Start Date Expiration Date Visits Requ ested Visits Authorized [id number] Closed 05/10/2021 05/10/2022 1 1 Encounter Details Date Type Department Care Team Description 06/13/2021 Hospital Encounter Department of Robinson Prabhakar; Radiology, Gurdeep Sorensen M.D., Im balance Non [facility]opedic [facility], in Ph.D. [place], [address] [place], [place] [address] [facility] [address] [place], [place] [phone] (Work) [phone] Social History Tobacco Use Types Packs/Day Years [...] many times do you More than three edmnod es a week 12/07/2021 talk on the phone with family, friends, or neighbors? How often do you get together with friends Twice a week 12/07/2021 or relatives? How often do you attend sikh or More than 4 times per year 12/07/2021 advent services? Do you belong to any clubs or Yes 12/07/2021 organizations such as sikh groups, unions, fraternal or athletic groups, or [...] Communication Admitting/Central Scheduling 12/22/2021 Office Visit Neurology [facility]-Danita Rhodes M.D., Ph.D. 200 [place] [phone] 12/26/2021 Procedure visit Dermatology Cristi Wright M.D. 200 [place] [phone] documented as of this encounter Procedures Procedure [...] documented as of this encounter Care Teams Angle Bender Relationship Specialty Start Date End Date Elsewhere, Pcp PCP - General Internal Medicine 05/10/21 documented as of this encounter
--- OUTSIDE RECORDS SUMMARY | 2021-12-18 11:33 | XMS_ITS | Encounter Summary ---
:1940 Author Organization [facility] Address 200 [place] [address] Care Team Providers Name Role Phone Elsewhere, Pcp Primary Care Provider Unavailable Reason for Referral Outpatient (Routine) - Authorized Specialty Diagnoses / Procedures Referred By Contact Refer red To Contact Dermatology Diagnoses Malignant Neoplasm Of Neck Basal [facility] SONU MOHS 1-4 sites [place], M.S. 200 [place], [place] [address] Referral ID Status Reason Start Date Expiration Date Visits V isits Requested Authorized [id number] Authorized 10/06/2021 10/06/2022 1 1 Encounter Details Date Type Department Care Team Description 10/05/2021 Orders Only Department of Arlen Yap Malignant N eoplasm Of Dermatology in [place], M.S. Neck Basal Cell [place], [place] 200 [facility] (Primary Dx) [address] [place] [phone] Social History Tobacco Use Types Packs/Day Years [...] or relatives? How often do you attend muslim or More than 4 times per year 12/07/2021 buddhist services? Do you belong to any clubs or Yes 12/07/2021 organizations such as muslim groups, unions, fraternal or athletic groups, or school groups? How often do you attend meetings of the More than 4 times r year 12/07/2021 clubs or organizations you [...] Visit Neurology Valerie-Danita Rhodes M.D., Ph.D. 200 [place] [phone] 12/26/2021 Procedure visit Dermatology Cristi Wright M.D. 200 [place] [phone] Scheduled Orders Name Type Priority Associated Diagnoses [...] documented as of this encounter Care Teams Manager International Relationship Specialty Start Date End Date Elsewhere, Pcp PCP - General Internal Medicine 05/10/21 documented as of this encounter
--- OUTSIDE RECORDS SUMMARY | 2021-12-18 11:33 | XMS_ITS | Encounter Summary ---
:1940 Author Organization [facility] Address [address] [place] [address] Care Team Providers Name Role Phone Unavailable Primary Care Provider Unavailable Reason for Visit Outpatient (Routine) - Closed Specialty Diagnoses / Procedures Referred By Contact Refer red To Contact Dermatology Diagnoses Squamous Cell Carcinoma In Situ Carl Oneal M.D. [facility] Procedures SONU MOHS 1-4 sites [address] [place], [place] [address] Referral ID Status Reason Start Date Expiration Date Visits Requ ested Visits Authorized [id number] Closed 06/02/2020 06/02/2021 1 1 Encounter Details Date Type Department Care Team Description 07/02/2020 Procedure visit Department of Cristi Wright, Malign ant Neoplasm Of Trunk Squamous Cell (Primary Dx); Dermatology in [place] Squamous Cell Carcinoma In Situ [place], [place] [address] [facility] [address] [place] [phone] Social History Tobacco Use Types Packs/Day Years [...] or relatives? How often do you attend hinduism or More than 4 times per year 12/07/2021 taoism services? Do you belong to any clubs or Yes 12/07/2021 organizations such as hinduism groups, unions, fraternal or athletic groups, or [...] ordered and outlined by Dr. Nereyda Wright ([phone]) in the clinical note dated with today's date. documented in this encounter Procedure Notes Praveen Case III, M.D. - 07/02/2020 8:00 AM CDTAssociated Order(s): SONU MOHS 1-4 SITES PREOP INDICATION: REMOVAL. Date of Surgery: 07/02/20 Surgeon: Dr. Wright Licensed Guide: Dr. Case Location: [facility]:[place] Floor:16 Room:[facility] Visit Type: Outpatient PostOp Diagnosis: Squamous cell carcinoma, grade II Anatomic Location: Upper central sternum Preoperative size: 1.9 x 1.8 cm [facility] number: 201/211 Indication(s) for Mohs Micrographic Surgery: [...] Visit Neurology Valerie-Danita Rhodes M.D., Ph.D. 200 [place] [phone] 12/26/2021 Procedure visit Dermatology Cristi Wright M.D. [address] [place] [address] documented as of this encounter Procedures Procedure Name Priority Date/Time Associated Diagnosis Comme nts [facility]ONU [facility] 1-4 SITES Routine 07/02/2020 8:00 AM Squamous Cell Re sults for this CDT Carcinoma In Situ procedure are in the results section. documented in this encounter Results SONU [facility] 1-4 sites (07/02/2020 8:00 AM CDT) Narrative Cristi Wright M.D. - 07/02/2020 8:00 AM CDT Praveen Case III, M.D. ? 07/05/2020 ??9:18 AM PREOP INDICATION: REMOVAL. Date of Surgery: ??07/02/20 Surgeon: Dr. Wright Licensed Guide: Dr. Case Location: [place] ?? Bldg:GO ?? Floor: 16 ?? Room:[facility] Visit Type: Outpatient PostOp Diagnosis: ??Squamous cell carcin noy, grade II Anatomic Location: ??Upper central cook um Preoperative size: ??1.9 x 1.8 cm [facility] number: 201/211 Indication(s) for Mohs Micrographic Surg [...] (2 blocks) by standard Mohs micrographic te lisa with the Mohs surgeon performing both the [...] MAR Action Action Date Dose Rate Site [id number] Given 07/02/2020 10:05 AM CDT 2 mL [...]
--- OUTSIDE RECORDS SUMMARY | 2021-12-18 11:33 | XMS_ITS | Encounter Summary ---
:1940 Author Organization [facility] Address [address] [place] [address] Care Team Providers Name Role Phone Unavailable Primary Care Provider Unavailable Reason for Referral Outpatient (Routine) - Closed Specialty Diagnoses / Procedures Referred By Contact Refer red To Contact Dermatology Carl Oneal M.D . [facility] [address] [place] [place] [phone] Referral ID Status Reason Start Date Expiration Date Visits Requ ested Visits Authorized [id number] Closed 07/19/2020 07/19/2021 1 1 Scheduling Instructions Recheck SCC site involving chest and pos sible initiation of Efudex. 11am Reason for Visit Reason Comments Skin Check Follow-up Outpatient (Routine) - Closed Specialty Diagnoses / Procedures Referred By Contact Refer red To Contact Dermatology Carl Oneal M.D . [facility] Region [address] [place] [phone] Referral ID Status Reason Start Date Expiration Date Visits Requ ested Visits Authorized [id number] Closed 05/25/2020 05/25/2021 1 1 Encounter Details Date Type Department Care Team Description 07/19/2020 Office Visit Department of Carl Oneal, Keratosis Seborrheic (Primary Dx); Dermatology in [facility] Skin Squamous Cell Personal Histo [address] [phone] Social History Tobacco Use Types Packs/Day Years [...] or relatives? How often do you attend gnosticist or More than 4 times per year 12/07/2021 synagogue services? Do you belong to any clubs or Yes 12/07/2021 organizations such as gnosticist groups, unions, fraternal or athletic groups, or [...] AM CDT documented as of this encounter Progress Notes [...] medial harrell. She was then seen [place] Dr. Wright on 07/02/2020 for subsequent treatment [...] surgery on 03/04/[address] Turner at [facility] 3. Upper central sternum: Squamous cell carcinoma, grade II, status post Mohs surgery on 07/02/[address] Wright at [facility] 4. 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 Wright at [facility] 5. Negative for melanoma ?? FAMILY HISTORY [...] surgery on 07/02/[address] Wright at [facility] Examination today reveals a well healed surgery [...] will consider further treatment with Efudex per '[facility] surgery note from July 02, 2020. #2 [...] Neurology George-Danita Rhodes M.D., Ph.D. [address] [place] [phone] 12/26/2021 Procedure visit Dermatology Cristi Wright M.D. [address] [place] [phone] Scheduled Referrals Name Type Priority Associated Order Schedule Diagnoses Dermatology office Outpatient Referral Routine Ex pected: visit (clinic) 08/24/2020 (Approximate), Expires: 2023 documented as of this encounter Visit Diagnoses Diagnosis Keratosis Seborrheic - Primary Cancer Skin Squamous Cell Personal Histo ry documented in this encounter
--- OUTSIDE RECORDS SUMMARY | 2021-12-18 11:33 | XMS_ITS | Encounter Summary ---
:1940 Author Organization [facility] Address 200 [place] [address] Care Team Providers Name Role Phone Unavailable Primary Care Provider Unavailable Reason for Referral Outpatient (Routine) - Closed Specialty Diagnoses / Procedures Referred By Contact Refer red To Contact Dermatology Diagnoses Squamous Cell Carcinoma In Situ Carl Oneal M.D. [facility] Procedures SONU MOHS 1-4 sites [address] [place] [phone] Referral ID Status Reason Start Date Expiration Date Visits Requ ested Visits Authorized [id number] Closed 06/02/2020 06/02/2021 1 1 Encounter Details Date Type Department Care Team Description 06/02/2020 Orders Only Department of Carl Oneal, Malignant Neoplasm Of Trunk Squamous Cell (Primary Dx); Dermatology in [place] Squamous Cell Carcinoma In Situ [place], [place] [address] [facility] 200 [place] [phone] [phone] Social History Tobacco Use Types Packs/Day Years [...] or relatives? How often do you attend jew or More than 4 times per year 12/07/2021 buddhism services? Do you belong to any clubs or Yes 12/07/2021 organizations such as jew groups, unions, [employer] or athletic groups, or school groups? How [...] or slept in a alf (including now)? Sex Assigned at Date Recorded Female 12/07/2021 9:06 AM CDT documented as of this encounter Plan of Treatment Upcoming Encounters Date Type Specialty Care Team Description 12/20/2021 Clinical Communication Admitting/Central Scheduling 12/22/2021 Office Visit Neurology Valerie-Danita Rhodes M.D., Ph.D. [address] [place] [address] 12/26/2021 Procedure visit Dermatology Cristi Wright M.D. [address] [place] [address] documented as of this encounter Results SONU [facility] 1-4 sites (07/02/2020 8:00 AM CDT) Narrative Cristi Wright M.D. - 07/02/2020 8:00 AM CDT Praveen Case III, M.D. ? 07/05/2020 ??9:18 AM PREOP INDICATION: REMOVAL. Date of Surgery: ??07/02/20 Surgeon: Dr. Wright Emergency Medical Service Coordinator: Dr. Case Location: [place] ?? Bldg:GO ?? Floor: 16 ?? Room:[facility] Visit Type: Outpatient PostOp Diagnosis: ??Squamous cell carcin noy, grade II Anatomic Location: ??Upper central cook um Preoperative size: ??1.[address] [facility] number: 201/211 Indication(s) for Mohs Micrographic [...] (2 blocks) by standard Mohs micrographic te chniques with the Mohs surgeon performing both the [...]
--- OUTSIDE RECORDS SUMMARY | 2021-12-18 11:33 | XMS_ITS | Encounter Summary ---
:1940 Author Organization [facility] Address [address] [place] [address] Care Team Providers Name Role Phone Unavailable Primary Care Provider Unavailable Encounter Details Date Type Department Care Team Description 09/20/2020 Clinical Communication Division of Sammi Catalan Pulmonary Medicine Jacqueline Romero in [place], [facility] [address] [place], [place] [address] [facility] [address] [place], [place] [phone] (Wo rk) [phone] Social History Tobacco Use Types Packs/Day Years [...] or relatives? How often do you attend baptist or More than 4 times per year 12/07/2021 sabianism services? Do you belong to any clubs or Yes 12/07/2021 organizations such as baptist groups, unions, fraternal or athletic groups, or [...] AM CDT documented as of this encounter Miscellaneous Notes Telephone Encounter - Cristy Natarajan - 09/20/2020 10:37 AM CDT I have added this patient, in an open slot, to your calendar for Sunday this week. She had a Chest CT done on 09/15, which is viewable in enosiXEADS. However, I do not see she has had a recent, if ever, PFT. Please order a PFT or any other tests you would like her to have done before seeing you on Sunday and we will try to get those done for her/you. Thank you. Please reply to the desk pool at the [facility] DESK documented in this encounter Plan of Treatment Upcoming Encounters Date Type Specialty Care Team Description 12/20/2021 Clinical Communication Admitting/Central Scheduling 12/22/2021 Office Visit Neurology Valerie-Danita Rhodse M.D., Ph.D. 200 [place] [phone] 12/26/2021 Procedure visit Dermatology Cristi Wright M.D. 200 [place] [phone] documented as of this encounter Visit Diagnoses Not on filedocumented in this encounter
--- OUTSIDE RECORDS SUMMARY | 2021-12-18 11:33 | XMS_ITS | Encounter Summary ---
:1940 Author Organization [facility] Address [address] [place] [address] Care Team Providers Name Role Phone Unavailable [...] More than 4 times per year 12/07/2021 restoration services? Do you belong to any clubs or Yes 12/07/2021 organizations such as mormon groups, unions, fraternal or athletic groups, or [...] place to sleep or slept in a penitentiary (including now)? Sex Assigned at Date Recorded Female 12/07/2021 9:06 AM CDT documented as of this encounter Plan of Treatment Upcoming Encounters Date Type Specialty Care Team Description 12/20/2021 Clinical Communication Admitting/Central Scheduling 12/22/2021 Office Visit Neurology George-Danita Rhodes M.D., Ph.D. [address] [place] [phone] 12/26/2021 Procedure visit Dermatology Cristi Wright M.D. [address] [place] [phone] documented as of this encounter Procedures Procedure [...]
--- OUTSIDE RECORDS SUMMARY | 2021-12-18 11:33 | XMS_ITS | Encounter Summary ---
:1940 Author Organization [facility] Address [address] [place] [address] Care Team Providers Name Role Phone Unavailable Primary Care Provider Unavailable Reason for Visit Reason Comments Follow-up Outpatient (Routine) - Closed Specialty Diagnoses / Procedures Referred By Contact Refer red To Contact Dermatology Carl Oneal M.D . [facility] Region [address] [place], [place] [phone] Referral ID Status Reason Start Date Expiration Date Visits Requ ested Visits Authorized [id number] Closed 07/19/2020 07/19/2021 1 1 Encounter Details Date Type Department Care Team Description 11/30/2020 Office Visit Department of Carl Oneal, Keratosis Actinic (Primary Dx); Dermatology in [place] Keratosis Seborrheic; [place], [place] [address] [phone] Social History Tobacco Use Types Packs/Day Years [...] or relatives? How often do you attend congregation or More than 4 times per year 12/07/2021 pentecostalism services? Do you belong to any clubs or Yes 12/07/2021 organizations such as congregation groups, unions, fraternal or athletic groups, or [...] surgery on 07/02/[address] Wright at [facility]. She also had a squamous cell carcinoma [...] She was recommended to follow up at [facility] in July a few weeks later [...] surgery on 03/04/[address] Turner at [facility] 3. Upper central sternum: History of grade 2 squamous cell carcinoma, status post Mohs surgery on 07/02/[address] Wright at [facility] 4. Left harrell: History of squamous cell carcinoma in situ, status post electrodesiccation and curettage on 07/02/[address] Wright at [facility] 5. Negative for melanoma FAMILY HISTORY Negative??for [...] surgery on 07/02/[address] Wright at [facility] No clinical evidence of local recurrence today. [...] curettage on 07/02/[address] Wright at [facility] No clinical evidence of local recurrence today. [...] Signed: reynaldo Schulte. 11/30/2020. 3:39 PM CDT. Carl Lopez M.D., personally performed the services [...] Visit Neurology Valerie-Danita Rhodes M.D., Ph.D. 200 [place] [phone] 12/26/2021 Procedure visit Dermatology Cristi Wright M.D. 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
--- OUTSIDE RECORDS SUMMARY | 2021-12-18 11:33 | XMS_ITS | Encounter Summary ---
:1940 Author Organization [facility] Address [address] [place] [address] Care Team Providers Name Role Phone Unavailable [...] or relatives? How often do you attend confucianism or More than 4 times per year 12/07/2021 jehovah's witness services? Do you belong to any clubs or Yes 12/07/2021 organizations such as confucianism groups, unions, fraternal or athletic groups, or [...] Joseph Berea-Danita Rhodes M.D., Ph.D. [address] [place] [address] 12/26/2021 Procedure visit Dermatology Cristi Wright M.D. [address] [place] [address] documented as of this encounter Procedures Procedure [...]
--- OUTSIDE RECORDS SUMMARY | 2021-12-18 11:33 | XMS_ITS | Clinical Summary ---
:1940 Author Organization [facility] Address [address] [place] [address] Care Team Providers Name Role Phone Elsewhere, Pcp Primary Care Provider Unavailable Source Comments Patient records contain information from all sites at [facility]. For routine questions regarding patient records, call [phone] during business hours, M-F 8:00 AM - 5:00 PM Central Time. Record requests for emergency care only can be directed to [phone] at any time.[facility] Allergies No known active allergies Medications Medication [...] Date End Date Status Facility Administered Medication [id number] 2 - 25 mL Ifil As needed 07/02/2020 Active rine 0.25%-1%-1:200,000 injection 2-25 mLIndications: Squamous Cell Carcinoma In Situ Active Problems No known active problems Encounters Date Type Specialty Care Team Description 12/09/2021 Comprehensive Visit Dermatology Cristi Wright Kerato sis Actinic (Primary Dx); Jacqueline Romero Keratosis Sebor rheic Inflamed; Basal Cell Carc inoma Of Skin Of Scalp And Neck 12/06/2021 Community Orders Bina, Amnesia (Pr imary Dx); Gisele Armijo M.D. Other Abnorma lities Of Gait And Mobility 10/05/2021 Orders Only Dermatology Marely, Malignant Neopl asm Arlen R, Of Neck Basal C ell P.Milo., M.S. (Primary Dx) 09/29/2021 Comprehensive Visit Dermatology Marely, Keratosi s Actinic (Primary Dx); Arlen R, Dermatoheliosis ; P.A.Hi, M.S. Nevi Multiple; Angioma Chiang; Keratosis Sebor rheic; Screening [place] Skin Cancer; Lentigo; Tumor Skin Unce rtain Behavior 09/29/2021 Ancillary Procedure 09/28/2021 Clinical Admitting/Central Pre-visit Intake Communication Scheduling from Last 3 Months Family History Medical History Relation Name Comments Prostate cancer Brother Jovan Reeves Dementia Father Gil Avendano at 74 Breast cancer Sister 1 Karol Nash Depression Sister 2 Karol Ardon Relation Name Status Comments Brother Jovan Reeves Father Gil Avendano Sister 1 Karol Nash Sister 2 Karol Ardon Social History Tobacco Use Types Packs/Day [...] More than 4 times per year 12/07/2021 sikh services? Do you belong to any clubs or Yes 12/07/2021 organizations such as sabianist groups, unions, fraternal [...] or slept in a long-term (including now)? Education Answer Date Recorded What is the highest level of school you have completed or 12 th grade 09/21/2020 the highest degree you have received? Sex Assigned at Date Recorded Female 12/07/2021 9:06 AM CDT Last Filed Vital Signs Vital Sign Reading [...] Visit Neurology Valerie-Danita Rhodes M.D., Ph.D. [address] [place] [address] 12/26/2021 Procedure visit Dermatology Cristi Wright M.D. [address] [place] [phone] Health Maintenance Due Date Last Done Comments [...] 06/12/2021 PHQ-2) Medical Devices Implanted Type Area Audio Visual Manager Device Shelf Model / Identifier Expiration Serial [...] Component Value Ref Test Analysis Performed At [facility] Range Method Time Signature 10/05/2021 [facility] 3:10 PM CDT Participated in Ruth 10/05/2021 [facility] the Interpretation Jacqueline Brizuela 3:10 PM CDT -Pathology Resident Report Rylee Salas 10/05/2021 MAG[facility] electronically Comfere, M.D. 3:10 PM CDT signed by Gross Description Received in formalin labeled with the patient's n dave, 10/05/2021 PDR medical record number, and left lateral neck [...] Organization Address City/State/ZIP Code Phon e Number [facility] - [address] [place], [place] [address] [facility] [place] [address] [facility], [place] [address] [facility] Neck 519-Dermatology Image Exam (09/29/2021 12:00 AM [...] Organization Address City/State/ZIP Code Phon e Number IIIA IIIA NA from Last 3 Months Insurance Payer Benefit Plan / Subscriber ID Effective Phone Address T ype Group Dates MEDICARE MEDICARE A AND [id number] 2006-Prese [address] [place] [address] MEDICA MEDICA PRIME [id number] 2017-Prese [phone] [address] [place] [address] Care Teams Quill Fixer Relationship Specialty Start Date End Date Elsewhere, Pcp PCP - General Internal Medicine 05/10/21
--- OUTSIDE RECORDS SUMMARY | 2021-12-18 11:33 | XMS_ITS | Encounter Summary ---
:1940 Author Organization [facility] Address [address] [place] [address] Care Team Providers Name Role Phone Elsewhere, Pcp Primary Care Provider Unavailable Reason for Referral Behavioral Health (Routine) - Closed Specialty Diagnoses / Procedures Referred By Contact Refer red To Contact Psychiatry / Diagnoses Tremor Anxiety Vanna, [facility] Psychiatry and Danita Sorensen M.D., Psychology Ph.D. [address] [place] [phone] Referral ID Status Reason Start Date Expiration Date Visits Requ ested Visits Authorized [id number] Closed 05/10/2021 05/10/2022 1 1 Scheduling Instructions Schedule with appropriate providers base d on if Psychotherapy or Medication Assessment is answered by the ordering provider. utpatient (Routine) - Authorized Specialty Diagnoses / Procedures Referred By Contact Refer red To Contact Neurology Danita Prabhakar M.D., [facility] Ph.D. [address] [place], [place] [phone] Referral ID Status Reason Start Date Expiration Date Visits V isits Requested Authorized [id number] Authorized 05/10/2021 05/10/2022 1 1 RI/CAT/PET Scan (Routine) - Closed Specialty Diagnoses / Procedures Referred By Contact Refer red To Contact Radiology Diagnoses Tremor Imbalance Non [facility] Brain without and with IV Contrast Jacqueline, Ph.D. [address] [place], [place] [address] Referral ID Status Reason Start Date Expiration Date Visits Requ ested Visits Authorized [id number] Closed 05/10/2021 05/10/2022 1 1 Reason for Visit Outpatient (Routine) - Closed Specialty Diagnoses / Procedures Referred By Contact Refer red To Contact Neurology Diagnoses Tremor Gisele Curran M.D. [facility] [address] [place] [address] Referral ID Status Reason Start Date Expiration Date Visits Requ ested Visits Authorized [id number] Closed 11/17/2020 11/17/2021 1 1 Encounter Details Date Type Department Care Team Description 05/10/2021 Comprehensive Visit Department of Vanna, Tremor (Primary Dx); Neurology in [place] Non O rthopedic; Jacqueline Crook, Ph.D. Anxiety; [place] 200 [facility] Concern Patient Cognition Function 200 [place] [phone] Social History Tobacco Use Types Packs/Day Years [...] she fell on an uneven sidewalk in [place] where she was diagnosed with a concussion [...] last three months due to being in [place] and concern for episodes of diplopia. 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 She is [...] and brisk throughout. Toes are flexor flexor. Tpapeu-kg-vqoj and acer-wb-ftuw are intact bilaterally. AMRs are large, accurate [...] offered a referral to Psychiatry here at [place] and she and her would like to [...] Communication Admitting/Central Scheduling 12/22/2021 Office Visit Neurology [facility]-Danita Rohdes M.D., Ph.D. [address] [place] [address] 12/26/2021 Procedure visit Dermatology Cristi Wright M.D. [address] [place] [address] Scheduled Referrals Name Type Priority Associated Order [...] M.D., Ph.D. IMG MRI PROCEDURES Thyroid Function Byram (05/10/2021 3:30 PM CDT) P athologist Signature TSH, Sensitive 2.3 0.3 - 4.2 05/10/2021 DTL mIU/L 4:42 PM CDT Specimen Anatomical Collection Method Collection Time Receive d Time (Source) Location / / Volume Laterality Blood (Blood, 05/10/2021 3:30 PM 05/11/19 4:14 Venous) CDT PM CDT Danita Prabhakar M.D., Ph.D. LAB BLOOD ADD-ON Performing Organization Address City/State/ZIP Code Phon e Number [facility] - [address] [place], [place] [address] [facility] [place] [address] [address] documented in this encounter Visit Diagnoses Diagnosis Tremor - Primary Imbalance Non Orthopedic Anxiety Concern Patient Cognition Function Tremor Imbalance Non Orthopedic documented in this encounter Care Teams Unemployment Benefits Claims Taker Relationship Specialty Start Date End Date Elsewhere, Pcp PCP - General Internal Medicine 05/10/21 documented as of this encounter
--- OUTSIDE RECORDS SUMMARY | 2021-12-18 11:33 | XMS_ITS | Encounter Summary ---
:1940 Author Organization [facility] Address [address] [place] [address] Care Team Providers Name Role Phone Unavailable Primary Care Provider Unavailable Encounter Details Date Type Department Care Team Description 06/10/2020 Clinical Communication Department of Presched[place], Dermatology in [place], [place] [address] [place] [address] Social History Tobacco Use Types Packs/Day Years [...] More than 4 times per year 12/07/2021 congregation services? Do you belong to any clubs or Yes 12/07/2021 organizations such as lutheran groups, unions, fraternal [...] Communication Admitting/Central Scheduling 12/22/2021 Office Visit Neurology [facility]-Danita Rhodes M.D., Ph.D. [address] [place] [phone] 12/26/2021 Procedure visit Dermatology Cristi Wright M.D. [address] [place] [phone] documented as of this encounter Visit Diagnoses Not on filedocumented in this encounter
--- OUTSIDE RECORDS SUMMARY | 2021-12-18 11:33 | XMS_ITS | Encounter Summary ---
:1940 Author Organization [facility] Address [address] [place] [address] Care Team Providers Name Role Phone Elsewhere, Pcp Primary Care Provider Unavailable Reason for Visit Reason Comments Pre-visit Intake Encounter Details Date Type Department Care Team Description 09/28/2021 Clinical Communication Visit Review in Pr e-visit Intake [place], [place] [address] [place], [place] [address] Social History Tobacco Use Types Packs/Day Years [...] or relatives? How often do you attend oriental orthodox or More than 4 times per year 12/07/2021 shinto services? Do you belong to any clubs or Yes 12/07/2021 organizations such as oriental orthodox groups, unions, fraternal or athletic groups, or [...] place to sleep or slept in a mcfp (including now)? Education Answer Date Recorded What [...] Communication Admitting/Central Scheduling 12/22/2021 Office Visit Neurology [facility]-Danita Rhodes M.D., Ph.D. [address] [place] [phone] 12/26/2021 Procedure visit Dermatology Cristi Wright M.D. [address] [place] [address] documented as of this encounter Visit Diagnoses Not on filedocumented in this encounter Additional Health Concerns Assessment Noted Time PHQ-9 Depression Total Score: 5 06/12/2021 6:15 PM CDT documented as of this encounter Care Teams Transformation Manager Relationship Specialty Start Date End Date Elsewhere, Pcp PCP - General Internal Medicine 05/10/21 documented as of this encounter
--- OUTSIDE RECORDS SUMMARY | 2021-12-18 11:33 | XMS_ITS | Encounter Summary ---
:1940 Author Organization [facility] Address [address] [place] [address] Care Team Providers Name Role Phone Unavailable Primary Care Provider Unavailable Reason for Referral Outpatient (Routine) - Closed Specialty Diagnoses / Procedures Referred By Contact Refer red To Contact Neurology Diagnoses Tremor Gisele Curran M.D. [facility] [address] [place] [address] Referral ID Status Reason Start Date Expiration Date Visits Requ ested Visits Authorized [id number] Closed 11/17/2020 11/17/2021 1 1 Encounter Details Date Type Department Care Team Description 11/17/2020 [facility] Gisele Curran Tremor (Primary Dx) AND CLINICS Jacqueline Armijo [address] [place] [address] [address] [place] [address] [place], [place] [phone] Social History Tobacco Use Types Packs/Day Years [...] More than 4 times per year 12/07/2021 episcopalian services? Do you belong to any [...] Visit Neurology George-Danita Rhodes M.D., Ph.D. [address] [place] [address] 12/26/2021 Procedure visit Dermatology Cristi Wright M.D. [address] [place] [address] Scheduled Referrals Name Type Priority Associated Diagnoses Order S [facility] Neurology Referral Outpatient Referral Routine Tremor Ex pected: 11/17/2020 (Approximate), Expires: 11/18/2023 documented as of this encounter Visit Diagnoses Diagnosis Tremor - Primary documented in this encounter
--- OUTSIDE RECORDS SUMMARY | 2021-12-18 11:33 | XMS_ITS | Encounter Summary ---
:1940 Author Organization [facility] Address [address] [place] [address] Care Team Providers Name Role Phone Unavailable [...] or relatives? How often do you attend islam or More than 4 times per year 12/07/2021 jain services? Do you belong to any clubs or Yes 12/07/2021 organizations such as islam groups, unions, fraternal or athletic groups, or [...] Neurology George-Danita Rhodes M.D., Ph.D. [address] [place] [phone] 12/26/2021 Procedure visit Dermatology Cristi Wright M.D. [address] [place] [phone] documented as of this encounter Procedures Procedure [...]
--- OUTSIDE RECORDS SUMMARY | 2021-12-18 11:33 | XMS_ITS | Encounter Summary ---
:1940 Author Organization [facility] Address [address] [place] [address] Care Team Providers Name Role Phone Elsewhere, Pcp Primary Care Provider Unavailable Encounter Details Date Type Department Care Team Description 12/06/2021 [facility] Karina Curran (Primary Dx); AND CLINICS Gisele Armijo M.D. Other Abnormalities Of Gait And Mobility [address] [facility] [address] [place] [address] [place], [place] [phone] Social History Tobacco Use Types Packs/Day Years [...] More than 4 times per year 12/07/2021 scientology services? Do you belong to any [...] Communication Admitting/Central Scheduling 12/22/2021 Office Visit Neurology [facility]-Danita Rhodes M.D., Ph.D. [address] [place] [address] 12/26/2021 Procedure visit Dermatology Cristi Wright M.D. [address] [place] [address] documented as of this encounter Visit Diagnoses Diagnosis Amnesia - Primary Other Abnormalities Of Gait And Mobility documented in this encounter Additional Health Concerns Assessment Noted Time PHQ-9 Depression Total Score: 5 06/12/2021 6:15 PM CDT documented as of this encounter Care Teams Metal Sash Setter Relationship Specialty Start Date End Date Elsewhere, Pcp PCP - General Internal Medicine 05/10/21 documented as of this encounter
--- OUTSIDE RECORDS SUMMARY | 2021-12-18 11:33 | XMS_ITS | Encounter Summary ---
:1940 Author Organization [facility] Address [address] [place] [address] Care Team Providers Name Role Phone Unavailable Primary Care Provider Unavailable Encounter Details Date Type Department Care Team Description 10/15/2020 [facility] Herjewellerg, Gisele Tremor (Primary Dx) AND CLINICS S, M.DAdalid 1999 [facility] [address] [place] [address] [place], [place] [phone] Social History Tobacco Use Types Packs/Day Years [...] or relatives? How often do you attend mosque or More than 4 times per year 12/07/2021 caodaism services? Do you belong to any clubs or Yes 12/07/2021 organizations such as mosque groups, unions, fraternal or athletic groups, or [...] Communication Admitting/Central Scheduling 12/22/2021 Office Visit Neurology [facility] [place] [facility]-Danita Rhodes M.D., Ph.D. [address] [place] [phone] 12/26/2021 Procedure visit Dermatology Cristi Wright M.D. [address] [place] [address] documented as of this encounter Visit Diagnoses Diagnosis Tremor - Primary documented in this encounter
--- OUTSIDE RECORDS SUMMARY | 2021-12-18 11:34 | XMS_ITS | Encounter Summary ---
:1940 Author Organization [facility] Address [address] [place] [address] Care Team Providers Name Role Phone Unavailable [...] or relatives? How often do you attend judaism or More than 4 times per year 12/07/2021 gnosticist services? Do you belong to any clubs or Yes 12/07/2021 organizations such as judaism groups, unions, fraternal or athletic groups, or [...] Communication Admitting/Central Scheduling 12/22/2021 Office Visit Neurology [facility]-Danita Rhodes M.D., Ph.D. [address] [place] [phone] 12/26/2021 Procedure visit Dermatology Cristi Wright M.D. [address] [place] [phone] documented as of this encounter Procedures Procedure [...]
--- OUTSIDE RECORDS SUMMARY | 2021-12-18 11:34 | XMS_ITS | Encounter Summary ---
:1940 Author Organization [facility] Address [address] [place] [address] Care Team Providers Name Role Phone Unavailable Primary Care Provider Unavailable Encounter Details Date Type Department Care Team Description 06/02/2020 Clinical Communication Department of Carl Oneal, Dermatology in .. [place], [place] [address] [facility] [address] [place] [phone] Social History Tobacco Use Types Packs/Day Years [...] or relatives? How often do you attend anglican or More than 4 times per year 12/07/2021 synagogue services? Do you belong to any clubs or Yes 12/07/2021 organizations such as anglican groups, unions, fraternal or athletic groups, or [...] Carl Oneal M.D. CT CT Job ID: [id number] Telephone Encounter - Migueljamir Ginny - 06/02/2020 10:56 AM CDT Reason for [...] Communication Admitting/Central Scheduling 12/22/2021 Office Visit Neurology [facility]-Danita Rhodes M.D., Ph.D. [address] [place] [phone] 12/26/2021 Procedure visit Dermatology Cristi Wright M.D. [address] [place] [phone] documented as of this encounter Visit Diagnoses Not on filedocumented in this encounter
--- OUTSIDE RECORDS SUMMARY | 2021-12-18 11:34 | XMS_ITS | Encounter Summary ---
:1940 Author Organization [facility] Address [address] [place] [address] Care Team Providers Name Role Phone Unavailable [...] More than 4 times per year 12/07/2021 confucianist services? Do you belong to any clubs or Yes 12/07/2021 organizations such as jewish groups, unions, fraternal [...] Communication Admitting/Central Scheduling 12/22/2021 Office Visit Neurology Danita Prabhakar M.D., Ph.D. [address] [place] [phone] 12/26/2021 Procedure visit Dermatology Cristi Wright M.D. [address] [place] [phone] documented as of this encounter Procedures Procedure Name Priority Date/Time Associated Comments Diagnosis DERMATOLOGY IMAGE Routine 03/04/2018 12:10 Result s for this EXAM PM ORTHOTIST/PROSTHETIST procedure are i n the results section. documented in this encounter Results DERMATOLOGY IMAGE EXAM (03/04/2018 12:10 PM ORTHOTIST/PROSTHETIST) Specimen (Source) Anatomical Collection Method Collection Time Re ceived Time Location / / Volume Laterality 03/04/2018 12:00 PM ORTHOTIST/PROSTHETIST Narrative [facility] - 03/04/2018 1:04 PM ORTHOTIST/PROSTHETIST This order has been created and auto-finalized [...]
--- OUTSIDE RECORDS SUMMARY | 2021-12-18 11:34 | XMS_ITS | Encounter Summary ---
:1940 Author Organization [facility] Address [address] [place] [address] Care Team Providers Name Role Phone Unavailable Primary Care Provider Unavailable Encounter Details Date Type Department Care Team Description 02/05/2018 Clinical Communication Department of Lynn Mims Dermatology in , R.N. [place], [place] [address] [facility] [address] [place] [phone] Social History Tobacco Use Types Packs/Day Years [...] More than 4 times per year 12/07/2021 cheondoism services? Do you belong to any clubs [...] Mims R.N. sent at 02/05/2018 2:32 PM OCTAVE BOARD ASSEMBLER ----- Regarding: RE: Move Up She can [...] looking for move up. Thank you, Supriya VE BOARD ASSEMBLER documented in this encounter Plan of Treatment Upcoming Encounters Date Type Specialty Care Team Description 12/20/2021 Clinical Communication Admitting/Central Scheduling 12/22/2021 Office Visit Neurology Valerie-Danita Rhodes M.D., Ph.D. [address] [place] [phone] 12/26/2021 Procedure visit Dermatology Cristi Wright M.D. [address] [place] [phone] documented as of this encounter Visit Diagnoses Not on filedocumented in this encounter
--- OUTSIDE RECORDS SUMMARY | 2021-12-18 11:34 | XMS_ITS | Encounter Summary ---
:1940 Author Organization [facility] Address [address] [place] [address] Care Team Providers Name Role Phone Unavailable Primary Care Provider Unavailable Reason for Visit Reason Comments Biopsy Encounter Details Date Type Department Care Team Description 01/21/2018 Procedure visit Department of Carl Oneal Tumor Skin Uncertain Behavior (Primary Dx); Dermatology in Malcolm Monsivais M.D. [place], [place] [address] [address] [phone] Social History Tobacco Use Types Packs/Day Years [...] or relatives? How often do you attend bahai or More than 4 times per year 12/07/2021 amish services? Do you belong to any clubs or Yes 12/07/2021 organizations such as bahai groups, unions, fraternal or athletic groups, or [...] biopsy of a portion of the left harrell (left mid harrell, site A). Photograph taken today with patient's verbal consent. We will correspond as to the results and if any further treatment is needed. We discussed that if dermatopathology reports a basal cell carcinoma, the patient may undergo treatment with curettage and cryotherapy or I will refer the patient to [facility] for Mohssurgery. The procedural details of [...] the patient by letter. Patient given pamphlet [id number]. Discussed the risks, benefits, alternatives, and the [...] to the patient by letter.Patient given pamphlet [id number]. Discussed the risks, benefits, alternatives, and the [...] Carl Oneal M.D. . 01/21/2018. 5:26 PM. OYMENT ATTORNEY documented in this encounter Plan of Treatment Upcoming Encounters Date Type Specialty Care Team Description 12/20/2021 Clinical Communication Admitting/Central Scheduling 12/22/2021 Office Visit Neurology [facility]-Danita Rhodes M.D., Ph.D. [address] [place] [phone] 12/26/2021 Procedure visit Dermatology Cristi Wright M.D. [address] [place] [phone] documented as of this encounter Procedures Procedure Name Priority Date/Time Associated Comments Diagnosis DERMATOPATHOLOGY CONSULT Routine 01/21/2018 4:13 Tumor Skin Results for this PM [facility] Uncertain Behavior procedure are in the results section. documented in this encounter Results Dermatopathology Consult (01/21/2018 4:13 PM EMPLOYMENT ATTORNEY) Component Value Ref Test Analysis Performed At [facility] Method Time Signature 01/25/[address] [facility] 3:34 PM LABORATORIES - [facility] Report Joe Triana 01/25/[address] [facility] electronically Jacqueline Helton 3:34 PM LABORATOR IES - signed by [facility] Gross A: ?? Received in formalin labeled with the patient's name , 01/25/[address] [facility] Description: medical record number, and left harrell, mid is a 0.9 x 0.4 3:34 PM LABORATORIES - x 0.1 cm pale holt skin shave biopsy. ??Involving nearly th e [facility] entire skin surface is a 0.8 x [...] submitted entirely in cassette B1. Grossed by VANDANA Addendum Deeper serial sections on part A reveal a definite 02/01/[address] [facility] connection of the dermal squamous cell carcinoma with the 1:48 PM LABORATORIES - overlying epidermis, consistent with a primary squamous [facility] cell carcinoma of the skin CAM PUS Signed by Kirill Puri M.D. 02/01/2018 1:48 PM Comment: REVISED RESULTS Interpetation REVISION DESCRIPTION 02/01/2018 1:[address] [facility] Revised to add margins to diagnosis. ??Underlining in the EMPLOYMENT ATTORNEY LABORATORIES - PDF report indicates revision. [facility] A. ??DermPath Consult Wet [...] Laterality Tissue 01/21/2018 4:13 PM 8 9:28 EMPLOYMENT ATTORNEY AM EMPLOYMENT ATTORNEY Narrative This result has an attachment that is no t available. Carl Oneal M.D. LAB PATH DERM ORDERABLES Performing Organization Address City/State/[facility] Code Phon e Number [facility] LABORATORIES - [address] [place] [phone] 05 [facility] documented in this encounter Visit Diagnoses Diagnosis Tumor Skin Uncertain Behavior - Primary Nevi Multiple documented in this encounter Administered Medications Inactive Administered Medications - up to 3 most recent administrations Medication Order MAR Action Action Date Dose Rate Site lidocaine-EPINEPHrine 1 %-1:100,000 Given 01/21/2018 4:15 PM EMPLOYMENT ATTORNEY 2 mL injection 2 mL (XYLOCAINE W/EPI) 2 mL, infiltration, Once, On 01/21/18 at 1615, For 1 dose documented in this encounter
--- OUTSIDE RECORDS SUMMARY | 2021-12-18 11:34 | XMS_ITS | Encounter Summary ---
:1940 Author Organization [facility] Address [address] [place] [address] Care Team Providers Name Role Phone Unavailable Primary Care Provider Unavailable Reason for Referral Outpatient (Routine) - Closed Specialty Diagnoses / Procedures Referred By Contact Refer red To Contact Dermatology Carl Oneal M.D . [facility] [address] [place], [place] [phone] Referral ID Status Reason Start Date Expiration Date Visits Requ ested Visits Authorized [id number] Closed 05/25/2020 05/25/2021 1 1 Scheduling Instructions Recheck several lesions and possible bio psies. July 19-3:00 p.m. 30 minutes Reason for Visit Reason Comments Skin Check Outpatient (Routine) - Closed Specialty Diagnoses / Procedures Referred By Contact Refer red To Contact Dermatology Diagnoses Nevi Multiple Carl Oneal M.D. [facility] Procedures Dermatology misc minor procedure 200 [place] [address] Referral ID Status Reason Start Date Expiration Date Visits Requ ested Visits Authorized [id number] Closed 01/27/2020 01/26/2021 1 1 Encounter Details Date Type Department Care Team Description 05/25/2020 Procedure visit Department of Carl Oneal Tumor Skin Uncertain Behavior (Primary Dx); Dermatology in Malcolm Monsivais M.D. Nevi Multiple; [place], [place] [address] [facility] Keratosis [facility] [address] [place] [phone] Social History Tobacco Use Types Packs/Day Years [...] surgery on 03/04/[address] Turner at [facility]. She denies a personal or family [...] did not return as she went to [place]. MEDICAL HISTORY 1. 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 Turner at [facility] 3. Negative for melanoma ?? FAMILY [...] surgery on 03/04/[address] Turner at [facility], no recurrence Examination today reveals no [...] the patient by letter. Patient given pamphlet [id number]. PATIENT EDUCATION: Ready to learn. No apparent [...] the patient by letter. Patient given pamphlet [id number]. PATIENT EDUCATION: Ready to learn. No apparent [...] a total of 4 lesion(s) with two 44-58-[id number] freeze-thaw cycles of liquid nitrogen cryothe rapy. [...] Carl Oneal M.D. Electronically Signed: reynaldo Luna.05/25 I, Carl Oneal M.D., personally performed the [...] moderately differentiated squamous cell carcinoma- needs Mohssurgery. [facility] patient, please send letter documented in this encounter Plan of Treatment Upcoming Encounters Date Type Specialty Care Team Description 12/20/2021 Clinical Communication Admitting/Central Scheduling 12/22/2021 Office Visit Neurology [facility]Danita Rhodes M.D., Ph.D. [address] [place] [phone] 12/26/2021 Procedure visit Dermatology Cristi Wright M.D. [address] [place] [address] Scheduled Referrals Name Type Priority Associated Order [...] t Range Method Time At Signature 05/31/2020 [facility] 4:20 PM CDT Report Milli Garcia, 05/31/2020 PDR electronically M.D. 4:20 PM signed by CDT Gross A: [...] Organization Address City/State/ZIP Code Phon e Number ED [facility]IES - [address] [place], [place] [address] [place] [address] [facility] [address] documented in this encounter Visit Diagnoses Diagnosis Tumor Skin Uncertain Behavior - Primary Nevi Multiple Keratosis [facility]inic documented in this encounter
--- OUTSIDE RECORDS SUMMARY | 2021-12-18 11:34 | XMS_ITS | Encounter Summary ---
:1940 Author Organization [facility] Address [address] [place] [address] Care Team Providers Name Role Phone Unavailable Primary Care Provider Unavailable Encounter Details Date Type Department Care Team Description 02/03/2018 Clinical Communication Department of Carl Oneal, Dermatology in .. [place], [place] [address] [facility] [address] [place] [phone] [phone] Social History Tobacco Use Types Packs/Day Years [...] her to call me back tomorrow at [facility] to discuss biopsy results. 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 200 [place] [address] 12/26/2021 Procedure visit Dermatology Cristi Wright M.D. 200 [place] [address] documented as of this encounter Visit Diagnoses Not on filedocumented in this encounter
--- OUTSIDE RECORDS SUMMARY | 2021-12-18 11:34 | XMS_ITS | Encounter Summary ---
:1940 Author Organization [facility] Address [address] [place] [address] Care Team Providers Name Role Phone Unavailable Primary Care Provider Unavailable Encounter Details Date Type Department Care Team Description 04/21/2020 Orders Only [facility] PCP TH Sa marisol Garrido M.D. [address] [place], [place] [phone] (Wo rk) Social History [...] 12/07/2021 organizations such as jew groups, unions, fraternal or athletic groups, or [...] Communication Admitting/Central Scheduling 12/22/2021 Office Visit Neurology [facility]-Danita Rhodes M.D., Ph.D. [address] [place] [phone] 12/26/2021 Procedure visit Dermatology Cristi Wright M.D. [address] [place] [address] documented as of this encounter Visit Diagnoses Not on filedocumented in this encounter
--- OUTSIDE RECORDS SUMMARY | 2021-12-18 11:34 | XMS_ITS | Encounter Summary ---
:1940 Author Organization [facility] Address [address] [place] [address] Care Team Providers Name Role Phone Unavailable [...] clubs or Yes 12/07/2021 organizations such as adventism groups, unions, fraternal [...] Neurology [facility]Danita Rhodes M.D., Ph.D. [address] [place] [address] 12/26/2021 Procedure visit Dermatology Cristi Wright M.D. [address] [place] [phone] documented as of this encounter Procedures Procedure Name Priority Date/Time Associated Comments Diagnosis DERMATOLOGY IMAGE Routine 01/07/2018 1:25 PM Resu lts for this EXAM INDUCTOR TESTER procedure are i n the results section. documented in this encounter Results DERMATOLOGY IMAGE EXAM (01/07/2018 1:25 PM INDUCTOR TESTER) Specimen (Source) Anatomical Collection Method Collection Time Re ceived Time Location / / Volume Laterality 01/07/2018 1:25 PM INDUCTOR TESTER Narrative [facility] - 01/07/2018 1:27 PM INDUCTOR TESTER This order has been created and auto-finalized [...]
--- OUTSIDE RECORDS SUMMARY | 2021-12-18 11:34 | XMS_ITS | Encounter Summary ---
:1940 Author Organization [facility] Address [address] [place] [address] Care Team Providers Name Role Phone Unavailable [...] or relatives? How often do you attend restoration or More than 4 times per year 12/07/2021 baptist services? Do you belong to any clubs or Yes 12/07/2021 organizations such as restoration groups, unions, fraternal or athletic groups, or [...] or slept in a fci (including now)? Sex Assigned at Date Recorded Female 12/07/2021 9:06 AM CDT documented as of this encounter Plan of Treatment Upcoming Encounters Date Type Specialty Care Team Description 12/20/2021 Clinical Communication Admitting/Central Scheduling 12/22/2021 Office Visit Neurology [facility]Dan[facility] Rhodes M.D., Ph.D. [address] [place] [phone] 12/26/2021 Procedure visit Dermatology Cristi Wright M.D. [address] [place] [phone] documented as of this encounter Procedures Procedure Name Priority Date/Time Associated Comments Diagnosis DERMATOLOGY IMAGE Routine 01/07/2018 1:27 PM Resu lts for this EXAM OFFICE MACHINERY OR EQUIPMENT INSTALLER procedure are i n the results section. documented in this encounter Results DERMATOLOGY IMAGE EXAM (01/07/2018 1:27 PM OFFICE MACHINERY OR EQUIPMENT INSTALLER) Specimen (Source) Anatomical Collection Method Collection Time Re ceived Time Location / / Volume Laterality 01/07/2018 1:25 PM OFFICE MACHINERY OR EQUIPMENT INSTALLER Narrative [facility] - 01/07/2018 1:27 PM OFFICE MACHINERY OR EQUIPMENT INSTALLER This order has been created and auto-finalized [...]
--- OUTSIDE RECORDS SUMMARY | 2021-12-18 11:34 | XMS_ITS | Encounter Summary ---
:1940 Author Organization [facility] Address [address] [place] [address] Care Team Providers Name Role Phone Unavailable [...] More than three emdond es a week 12/07/2021 talk on the phone with family, friends, or neighbors? How often do you get together with friends Twice a week 12/07/2021 or relatives? How often do you attend yarsani or More than 4 times per year 12/07/2021 jewish services? Do you belong to any clubs or Yes 12/07/2021 organizations such as yarsani groups, unions, fraternal or athletic groups, or [...] place to sleep or slept in a snf (including now)? Sex Assigned at Date Recorded Female 12/07/2021 9:06 AM CDT documented as of this encounter Plan of Treatment Upcoming Encounters Date Type Specialty Care Team Description 12/20/2021 Clinical Communication Admitting/Central Scheduling 12/22/2021 Office Visit Neurology [facility]-Danita Rhodes M.D., Ph.D. [address] [place] [phone] 12/26/2021 Procedure visit Dermatology Cristi Wright M.D. [address] [place] [phone] documented as of this encounter Procedures Procedure Name Priority Date/Time Associated Comments Diagnosis DERMATOLOGY IMAGE Routine 02/03/2019 1:35 PM Resu lts for this EXAM COMPOSITION WORKER procedure are i n the results section. documented in this encounter Results Right Arm 523a-Dermatology Image Exam (02/03/2019 1:35 PM COMPOSITION WORKER) Specimen (Source) Anatomical Collection Method Collection Time Re ceived Time Location / / Volume Laterality 02/03/2019 1:33 PM COMPOSITION WORKER Narrative [facility] - 02/03/2019 1:36 PM COMPOSITION WORKER This order has been created and auto-finalized [...]
--- OUTSIDE RECORDS SUMMARY | 2021-12-18 11:34 | XMS_ITS | Encounter Summary ---
:1940 Author Organization [facility] Address 200 [place] [address] Care Team Providers Name Role Phone Unavailable Primary Care Provider Unavailable Encounter Details Date Type Department Care Team Description 06/01/2020 Orders Only Department of Carl Oneal Encounter For Preprocedural Laboratory Examination (COVID-19) (Primary Dx); Dermatology in N, M.D. Malignant Neoplasm Of Skin Squamous Cell Carcinoma; [place], [place] 200 [facility] Squamous Cell Carcinoma In Situ; 200 [place], [place] Contact With And (Suspected) Exposure To COVID-19 [place] [address] [phone] Social History Tobacco Use Types Packs/Day Years [...] or relatives? How often do you attend holiness or More than 4 times per year 12/07/2021 sabianist services? Do you belong to any clubs or Yes 12/07/2021 organizations such as holiness groups, unions, fraternal or athletic groups, or [...] Neurology [facility]-Danita Rhodes M.D., Ph.D. [address] [place] [address] 12/26/2021 Procedure visit Dermatology Cristi Wright M.D. [address] [place] [address] documented as of this encounter Results SARS CoV-2 RNA, PCR, Varies Asymptomatic (06/30/2020 12:17 PM CDT) [facility] Method Time Signature SARS CoV-2 Swab, [...] Drug Administration an d is used per hide dyer's instructions. Performance characteristics were verified by [facility] in a manner consistent with CLIA requirements. Visit the CDC website: https://www.cdc.g ov/coronavirus/ for the most recent guidelines on Coron avirus testing. Fact Sheet for Healthcare Providers: https://www.fda.gov/media/425218/downloa d Fact Sheet for Patients: https://www.fda.gov/media/219156/downloa d Specimen Anatomical Collection Method Collection Time Receive d Time (Source) Location / / Volume Laterality Varies 06/30/2020 12:17 06/30/2020 (Nasopharynx) PM CDT 12:53 PM CDT Carl Oneal M.D. LAB MICROBIOLOGY - GENERAL O RDERABLES Performing Organization Address City/State/ZIP Code Phon e Number [facility] - [address] [place], [place] [address] [facility] [place] [address] [facility] [address] documented in this encounter Visit Diagnoses Diagnosis Encounter For Preprocedural Laboratory E xamination (COVID-19) - Primary Malignant Neoplasm Of Skin Squamous Cell Carcinoma Squamous Cell Carcinoma In Situ Contact With And (Suspected) Exposure To COVID-19 documented in this encounter
--- OUTSIDE RECORDS SUMMARY | 2021-12-18 11:34 | XMS_ITS | Encounter Summary ---
:1940 Author Organization [facility] Address [address] [place] [address] Care Team Providers Name Role Phone Unavailable Primary Care Provider Unavailable Encounter Details Date Type Department Care Team Description 02/04/2018 Clinical Communication Department of Carl Oneal, Dermatology in .. [place], [place] [address] [facility] [address] [place] [phone] Social History Tobacco Use Types Packs/Day Years [...] be referring her for Mohs surgery in [place]. She is leaving for [place] on March 09 and would like to have it done before she flies to [place] for the winter, and I told her that we would do our best. I told her, if she cannot get in before March 09, once she has the appointment office give her a call, to let me know, and we will see what we can do at that time if need be. The importance of having it removed prior to going to [place] was emphasized, as she will be goneuntil the spring. The second biopsy taken from her left harrell more distally was a seborrheic keratosis and requires no further treatment. All questions answered, and she was appreciative of the phone call. An order was placed for the Mohs surgery. 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 [address] [place] [phone] 12/26/2021 Procedure visit Dermatology Cristi Wright M.D. 200 [place] [phone] documented as of this encounter Visit Diagnoses Not on filedocumented in this encounter
--- OUTSIDE RECORDS SUMMARY | 2021-12-18 11:34 | XMS_ITS | Encounter Summary ---
:1940 Author Organization [facility] Address [address] [place] [address] Care Team Providers Name Role Phone Unavailable Primary Care Provider Unavailable Encounter Details Date Type Department Care Team Description 02/04/2018 Clinical Communication Department of [facility] Senthil Oneal, [facility], in [address] [address] [place], [place] [phone] [address] (Work) [phone] Social History Tobacco Use Types Packs/Day Years [...] More than 4 times per year 12/07/2021 confucianism services? Do you belong to any clubs or Yes 12/07/2021 organizations such as sikhism groups, unions, fraternal [...] Dr. Oneal and call placed to the [place] Appointment Office per his request to see if earlier appointments are available for either Mohs surgery or excision with wider margins. Per Anna in the Appointment Office, 03/26/18 is the first available appointment for either of these procedure options. They have taken patients name to call if there are any cancellations prior to her leaving for [place] on 03/11/18. They state she can call every morning for any cancellations as well. Dr. Oneal will discuss further with Dermatology Surgery and/or investigate other appointment options/recomendations for this patients procedure when he is in [place] later this week and follow up with patient as needed. RAILROAD Telephone Encounter - Cristy Novak R.N. - 02/04/2018 11:35 AM COOK RAILROAD FYI this goes to the [facility] NURSE pool. RAILROAD Telephone Encounter - Doreen Sawyer - 02/04/2018 10:57 AM CST Patient wasn't able to get in with Derm in [place] for her Malignant Neoplasm Of Lower Limb Squamous Cell Carcinoma Left ASA procedure until 03/27. She said they will be going south before then and would need an earlier appointment. She would like to know if there is anyway to get her in earlier. RAILROAD documented in this encounter Plan of Treatment Upcoming Encounters Date Type Specialty Care Team Description 12/20/2021 Clinical Communication Admitting/Central Scheduling 12/22/2021 Office Visit Neurology [facility]-Danita Rhodes M.D., Ph.D. [address] [place] [address] 12/26/2021 Procedure visit Dermatology Cristi Wright M.D. [address] [place] [address] documented as of this encounter Visit Diagnoses Not on filedocumented in this encounter
--- OUTSIDE RECORDS SUMMARY | 2021-12-18 11:34 | XMS_ITS | Encounter Summary ---
:1940 Author Organization [facility] Address [address] [place] [address] Care Team Providers Name Role Phone Unavailable [...] More than 4 times per year 12/07/2021 alevism services? Do you belong to any clubs or Yes 12/07/2021 organizations such as restorationist groups, unions, fraternal [...] Communication Admitting/Central Scheduling 12/22/2021 Office Visit Neurology [facility]-Danita Rhodes M.D., Ph.D. [address] [place] [phone] 12/26/2021 Procedure visit Dermatology Cristi Wright M.D. [address] [place] [phone] documented as of this encounter Procedures Procedure [...]
--- OUTSIDE RECORDS SUMMARY | 2021-12-18 11:34 | XMS_ITS | Encounter Summary ---
:1940 Author Organization [facility] Address [address] [place] [address] Care Team Providers Name Role Phone Unavailable Primary Care Provider Unavailable Reason for Referral Outpatient (Routine) - Closed Specialty Diagnoses / Procedures Referred By Contact Refer red To Contact Dermatology Diagnoses Nevi Multiple Carl Oneal M.D. 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 Keratosis Actinic; [place], [place] [address] [facility] Keratosis Seborrheic [address] [place] [phone] Social History Tobacco Use Types Packs/Day Years [...] 2019 as she will be traveling to [place] for the winter. At that time we [...] accurate and complete. Carl Oneal M.D. 01/26. THAND TEACHER documented in this encounter Plan of Treatment Upcoming Encounters Date Type Specialty Care Team Description 12/20/2021 Clinical Communication Admitting/Central Scheduling 12/22/2021 Office Visit Neurology Valerie-Danita Rhodes M.D., Ph.D. [address] [place] [phone] 12/26/2021 Procedure visit Dermatology Cristi Wright M.D. 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
--- OUTSIDE RECORDS SUMMARY | 2021-12-18 11:34 | XMS_ITS | Encounter Summary ---
:1940 Author Organization [facility] Address [address] [place] [address] Care Team Providers Name Role Phone Unavailable Primary Care Provider Unavailable Encounter Details Date Type Department Care Team Description 02/15/2018 Abstract [facility] MARCELO Caldera ea Provider, Historical [address] [place] [address] Social History Tobacco Use Types Packs/Day Years [...] or relatives? How often do you attend baptism or More than 4 times per year 12/07/2021 latter-day services? Do you belong to any clubs or Yes 12/07/2021 organizations such as baptism groups, unions, fraternal or athletic groups, or [...] [facility]-Danita Rhodes M.D., Ph.D. [address] [place] [phone] 12/26/2021 Procedure visit Dermatology Cristi Wright M.D. [address] [place] [phone] documented as of this encounter Visit Diagnoses Not on filedocumented in this encounter
--- OUTSIDE RECORDS SUMMARY | 2021-12-18 11:34 | XMS_ITS | Encounter Summary ---
:1940 Author Organization [facility] Address [address] [place] [address] Care Team Providers Name Role Phone Unavailable Primary Care Provider Unavailable Reason for Visit Reason Comments Skin Check Appointment Request (Routine) - Closed Specialty Diagnoses / Procedures Referred By Contact Refer red To Contact Family Medicine Referral ID Status Reason Start Date Expiration Date Visits Requ ested Visits Authorized [id number] Closed 01/30/2019 01/30/2020 1 1 Encounter Details Date Type Department Care Team Description 02/03/2019 Office Visit Department of Carl Oneal, Deion arriaza (Primary Dx); Dermatology in Malcolm Phillips Keratosis Actinic; [place], [place] [address] [facility] Keratosis Seborrheic; [address] [place] [address] Tumor [place] [phone] Social History Tobacco Use Types Packs/Day Years [...] or relatives? How often do you attend jehovah's witness or More than 4 times per year 12/07/2021 jain services? Do you belong to any clubs or Yes 12/07/2021 organizations such as jehovah's witness groups, unions, fraternal or athletic groups, or [...] Mohs surgery on 03/04/18 by at [facility]. She denies a personal or family history for melanoma. The patient uses sunscreen. She has no other concerns today. No Known Allergies MEDICAL HISTORY 1. 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 Turner at [facility] 2. Multiple non-melanoma skin cancers treated [...] extremities. My nurse (Nga) served as a sack cleaning hand for the entirety of the exam. Examination [...] cryotherapy and 4 remaining lesion(s) with two 67-62-fskgaz freeze-thaw cycles of liquid nitrogen cryotherapy. The [...] however the patient will be going to [place] for the winter. I did offer the [...] on 03/04/[address] Turner at [facility] No clinical evidence of local recurrence [...] Electronically Signed: reynaldo Schulte. 02/03/2019. 11:45 AM. Carl Lopez M.D., personally performed the services described in this documentation. All medical record entries made by the scribe were at my direction and in my presence. I have reviewed the chart and discharge instructions (if applicable) and agree that the record reflects my personal performance and is accurate and complete. Carl Oneal M.D. . 02/03/2019. 2:42 PM. 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 [address] [place] [address], [place] [phone] 12/26/2021 Procedure visit Dermatology Cristi Wright M.D. 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
--- OUTSIDE RECORDS SUMMARY | 2021-12-18 11:34 | XMS_ITS | Encounter Summary ---
:1940 Author Organization [facility] Address [address] [place] [address] Care Team Providers Name Role Phone Unavailable Primary Care Provider Unavailable Encounter Details Date Type Department Care Team Description 02/04/2018 Orders Only Department of Carl Oneal, Malignant Neoplasm [facility] [place], [place] [address] [facility] Cell Carcinoma Left [address] [place] [address] (Primary Dx) [place] [phone] Social History Tobacco Use Types Packs/Day Years [...] More than 4 times per year 12/07/2021 druze services? Do you belong to any clubs [...] Neurology Valerie-Danita Rhodes M.D., Ph.D. [address] [place] [address] 12/26/2021 Procedure visit Dermatology Cristi Wright M.D. [address] [place] [address] Scheduled Orders Name Type Priority Associated Diagnoses Order S chedule SONU MOHS 1-4 sites Dermatology Routine Malignant Neoplasm Of Expected: 02/04/2018 Lower Limb Squamous Cell (Ap proximate), Carcinoma Left Expires: 01/26 documented as of this encounter Visit Diagnoses Diagnosis Malignant Neoplasm Of Lower Limb Squamou s Cell Carcinoma Left - Primary documented in this encounter
--- OUTSIDE RECORDS SUMMARY | 2021-12-18 11:34 | XMS_ITS | Encounter Summary ---
:1940 Author Organization [facility] Address [address] [place] [address] Care Team Providers Name Role Phone Unavailable [...] or relatives? How often do you attend anabaptist or More than 4 times per year 12/07/2021 episcopal services? Do you belong to any clubs or Yes 12/07/2021 organizations such as anabaptist groups, unions, fraternal or athletic groups, or [...] place to sleep or slept in a residential (including now)? Sex Assigned at Date Recorded Female 12/07/2021 9:06 AM CDT documented as of this encounter Plan of Treatment Upcoming Encounters Date Type Specialty Care Team Description 12/20/2021 Clinical Communication Admitting/Central Scheduling 12/22/2021 Office Visit Neurology Danita Prabhakar M.D., Ph.D. [address] [place] [phone] 12/26/2021 Procedure visit Dermatology Cristi Wright M.D. [address] [place] [phone] documented as of this encounter Procedures Procedure Name Priority Date/Time Associated Comments Diagnosis DERMATOLOGY IMAGE Routine 03/04/2018 12:05 Result s for this EXAM PM ACCOUNTS PAYABLE PAYROLL COORDINATOR procedure are i n the results section. documented in this encounter Results DERMATOLOGY IMAGE EXAM (03/04/2018 12:05 PM ACCOUNTS PAYABLE PAYROLL COORDINATOR) Specimen (Source) Anatomical Collection Method Collection Time Re ceived Time Location / / Volume Laterality 03/04/2018 12:00 PM ACCOUNTS PAYABLE PAYROLL COORDINATOR Narrative [facility] - 03/04/2018 1:04 PM ACCOUNTS PAYABLE PAYROLL COORDINATOR This order has been created and auto-finalized [...]
--- OUTSIDE RECORDS SUMMARY | 2021-12-18 11:34 | XMS_ITS | Encounter Summary ---
:1940 Author Organization [facility] Address [address] [place] [address] Care Team Providers Name Role Phone Unavailable [...] clubs or Yes 12/07/2021 organizations such as sabianism groups, unions, fraternal [...] Neurology Danita Prabhakar M.D., Ph.D. [address] [place] [phone] 12/26/2021 Procedure visit Dermatology Cristi Wright M.D. [address] [place] [phone] documented as of this encounter Procedures Procedure Name Priority Date/Time Associated Comments Diagnosis DERMATOLOGY IMAGE Routine 03/04/2018 12:15 Result s for this EXAM PM INCIDENT RESPONSE SPECIALIST procedure are i n the results section. documented in this encounter Results DERMATOLOGY IMAGE EXAM (03/04/2018 12:15 PM INCIDENT RESPONSE SPECIALIST) Specimen (Source) Anatomical Collection Method Collection Time Re ceived Time Location / / Volume Laterality 03/04/2018 12:00 PM INCIDENT RESPONSE SPECIALIST Narrative [facility] - 03/04/2018 1:04 PM INCIDENT RESPONSE SPECIALIST This order has been created and auto-finalized [...]
--- OUTSIDE RECORDS SUMMARY | 2021-12-18 11:34 | XMS_ITS | Encounter Summary ---
:1940 Author Organization [facility] Address [address] [place] [address] Care Team Providers Name Role Phone Unavailable [...] or relatives? How often do you attend episcopalian or More than 4 times per year 12/07/2021 baptist services? Do you belong to any clubs or Yes 12/07/2021 organizations such as episcopalian groups, unions, fraternal or athletic groups, or [...] Neurology Danita Prabhakar M.D., Ph.D. [address] [place] [phone] 12/26/2021 Procedure visit Dermatology Cristi Wright M.D. [address] [place] [phone] documented as of this encounter Procedures Procedure Name Priority Date/Time Associated Comments Diagnosis DERMATOLOGY IMAGE Routine 03/04/2018 12:00 Result s for this EXAM PM SHIPPING WEIGHER procedure are i n the results section. documented in this encounter Results DERMATOLOGY IMAGE EXAM (03/04/2018 12:00 PM SHIPPING WEIGHER) Specimen (Source) Anatomical Collection Method Collection Time Re ceived Time Location / / Volume Laterality 03/04/2018 12:00 PM SHIPPING WEIGHER Narrative [facility] - 03/04/2018 1:04 PM SHIPPING WEIGHER This order has been created and auto-finalized [...]
--- OUTSIDE RECORDS SUMMARY | 2021-12-18 11:34 | XMS_ITS | Encounter Summary ---
:1940 Author Organization [facility] Address [address] [place] [address] Care Team Providers Name Role Phone Unavailable [...] clubs or Yes 12/07/2021 organizations such as scientology groups, unions, fraternal [...] or slept in a [facility] (including now)? Sex Assigned at Date Recorded Female 12/07/2021 9:06 AM CDT documented as of this encounter Plan of Treatment Upcoming Encounters Date Type Specialty Care Team Description 12/20/2021 Clinical Communication Admitting/Central Scheduling 12/22/2021 Office Visit Neurology [facility]-Danita Rhodes M.D., Ph.D. [address] [place] [phone] 12/26/2021 Procedure visit Dermatology Cristi Wright M.D. [address] [place] [phone] documented as of this encounter Procedures Procedure [...]
--- OUTSIDE RECORDS SUMMARY | 2021-12-18 11:34 | XMS_ITS | Encounter Summary ---
:1940 Author Organization [facility] Address [address] [place] [address] Care Team Providers Name Role Phone Unavailable Primary Care Provider Unavailable Encounter Details Date Type Department Care Team Description 03/04/2018 Procedure visit Department of Ramon, Nic Reynolds M.D., M.S. [address] [place] [phone] Malignant Neoplasm Dermatology in Ruy Turner M.D. [address] [place] [phone] Of Lower Limb [place], [place] Squamous Cell [address] [facility] Carcinoma Left [place], [place] (Primary Dx) [phone] Social History Tobacco Use Types Packs/Day Years [...] or relatives? How often do you attend caodaism or More than 4 times per year 12/07/2021 anabaptism services? Do you belong to any clubs or Yes 12/07/2021 organizations such as caodaism groups, unions, fraternal or athletic groups, or [...] Comments Blood Pressure 140/80 03/04/2018 12:15 PM COCOA BEAN ROASTER Pulse 84 03/04/2018 12:15 PM COCOA BEAN ROASTER Temperature - - Respiratory Rate - - Oxygen Saturation - - Inhaled Oxygen Concentration - - Weight - - Height - - Body Mass Index - - documented in this encounter Procedure Notes Vaishnavi Alcala D.O. - 03/04/2018 11:30 AM CST PREOP INDICATION: REMOVAL. Date of Surgery: 03/04/2018 Surgeon: Dr. Turner Capacity Planning Engineer: Dr. Jessica Alcala D.O. Location: [facility] Floor:16 Room:[facility] Visit Type: Outpatient PostOp Diagnosis: Squamous cell carcinoma, grade I Anatomic Location: Left harrell mid Preoperative size: 1.0 x 1.1 cm [facility] number: [id number] Procedure: Mohs micrographic surgery [...] Dilute acetic acid soaks. Postoperative medications: None A BEAN ROASTER Associated attestation - Ruy Turner M.D. - 03/04/2018 12:58 PM COCOA BEAN ROASTER Having reviewed the history, examined the patient, as well as discussed management, I agree with theimpression and plan as documented by Nereyda Alcala ([phone]) who assisted me. In addition, I was [...] procedure. All questions answered and consent given. A BEAN ROASTER Associated attestation - Ruy Turner M.D. - 03/04/2018 12:58 PM COCOA BEAN ROASTER Having reviewed the history, examined the patient, as well as discussed management, I agree with theimpression and plan as documented by Nereyda Alcala ([phone]) who assisted me. In addition, I was also present for the critical portion and immediately available for the entire procedure we perform ed. documented in this encounter Plan of Treatment Upcoming Encounters Date Type Specialty Care Team Description 12/20/2021 Clinical Communication Admitting/Central Scheduling 12/22/2021 Office Visit Neurology [facility]-Danita Rhodes M.D., Ph.D. [address] [place] [address] 12/26/2021 Procedure visit Dermatology Cristi Wright M.D. [address] [place] [address] documented as of this encounter Visit Diagnoses Diagnosis Malignant Neoplasm Of Lower Limb Squamou s Cell Carcinoma Left - Primary documented in this encounter Administered Medications Inactive Administered Medications - up to 3 most recent administrations Medication Order MAR Action Action Date Dose Rate Site [id number] Given 03/04/2018 11:19 AM COCOA BEAN ROASTER 4 mL 0.25%-1%-1:200,000 injection 2-25 mL 2-25 mL, injection, As needed, may repeat if the patient complains of pain/discomfort at the site up to 50 mL for entire procedure, Starting on Sun03/04/18 at 1056 lidocaine-EPINEPHrine 1%-1:200,000 injection Given 9 11:19 AM COCOA BEAN ROASTER 6 mL 2-50 mL (XYLOCAINE W/EPI) 2-50 mL, injection, As needed, may repeat if the patient complains of pain/discomfort at the site up to 50 mL for entire procedure, Starting on Sun03/04/18 at 1056 documented in this encounter
--- OUTSIDE RECORDS SUMMARY | 2021-12-18 11:34 | XMS_ITS | Encounter Summary ---
:1940 Author Organization [facility] Address [address] [place] [address] Care Team Providers Name Role Phone Unavailable Primary Care Provider Unavailable Encounter Details Date Type Department Care Team Description 02/01/2018 Clinical Communication Department of [facility] Senthil Oneal, [facility] in [address] [address] [place], [place] [phone] (Work) [phone] Social History Tobacco Use Types Packs/Day Years [...] More than 4 times per year 12/07/2021 zoroastrianism services? Do you belong to any clubs or Yes 12/07/2021 organizations such as episcopal groups, unions, fraternal [...] would like the results of her biopsy. [phone]. 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 [address] [place] [phone] 12/26/2021 Procedure visit Dermatology Cristi Wright M.D. [address] [place] [address] documented as of this encounter Visit Diagnoses Not on filedocumented in this encounter
--- OUTSIDE RECORDS SUMMARY | 2021-12-18 11:34 | XMS_ITS | Encounter Summary ---
:1940 Author Organization [facility] Address [address] [place] [address] Care Team Providers Name Role Phone Unavailable Primary Care Provider Unavailable Reason for Visit Reason Comments Skin Check Appointment Request (Routine) - Closed Specialty Diagnoses / Procedures Referred By Contact Refer red To Contact Dermatology Referral ID Status Reason Start Date Expiration Date Visits Requ ested Visits Authorized [id number] Closed 10/03/2017 10/03/2018 1 Encounter Details Date Type Department Care Team Description 01/07/2018 Office Visit Department of Carl Oneal, Tumor Skin Uncertain Behavior (Primary Dx); Dermatology in Malcolm Phillips Keratosis Seborrheic; [place], [place] [address] [facility] Nevi Multiple; [address] Cancer Skin Squamous Cell Pe rsonal History; [place] [address] Cancer Skin Basal Cell Personal History [phone] Social History Tobacco Use Types Packs/Day Years [...] screening exam. Nicolas saw this patient in [place] on 09/04/08. She recently moved to [place], [place] from [place], [place], and has seen dermatology in the past in [place]. The patient denies a history for Jeb cell carcinoma in light of having no lymph node biopsies or wide local excisions in the past. On the intake note for today's visit it stated a history of Jeb cell carcinoma which she states she has never been diagnosed with and is sure regarding this matter. She will obtain records from [place] for my personal review. Per the patient, [...] carcinoma, we will refer the patient to [facility] for Mohs procedure. The patient has [...] thecontent. By signing my name below, I, Leilain Carrizales, attest that this documentation has been prepared under the direction and in the presence of Carl Oneal M.D.. Electronically Signed: reynaldo Ca. 01/07/2018. 11:54 AM . Calr Lopez M.D., personally performed the services described in this documentation. All medical record entries made by the scribe were at my direction and in my presence. I have reviewed the chart and discharge instructions (if applicable) and agree that the record reflects my personal performance and is accurate and complete. Carl Oneal M.D. . 01/07/2018. 2:17 PM. MOVING TECHNICIAN documented in this encounter Plan of Treatment Upcoming Encounters Date Type Specialty Care Team Description 12/20/2021 Clinical Communication Admitting/Central Scheduling 12/22/2021 Office Visit Neurology Valerie-Danita Rhodes M.D., Ph.D. [address] [place] [address] 12/26/2021 Procedure visit Dermatology Cristi Wright M.D. [address] [place] [address] Scheduled Orders Name Type Priority Associated Diagnoses [...]
[2021-12-18 13:00] VITALS: BP 150/79; PULSE 72; RESP 14; O2SAT 96
[2021-12-18 14:04] LABS: SARS PCR* Negative SARS-CoV-2 (Negative)
[2021-12-18 14:33] VITALS: BP 127/69; PULSE 83; RESP 18; O2SAT 95
--- NOTE | 2021-12-18 14:38 | ED.NURSE ---
pt resting in bed, finished lunch. at bedside. tv on. continues to rate head pain 3/10.
[2021-12-18 15:58] VITALS: BP 139/78; PULSE 69; RESP 18; O2SAT 95
--- NOTE | 2021-12-18 17:00 | CRLHL7_ITS ---
For Patients: As a result of the Century Cures Act, medical imaging exams and procedure reports are released immediately into your electronic medical record. You may view this report before your referring provider. If you have questions, please contact your health care provider. INDICATION: Fall. Hyperattenuation in the armin. Technique Noncontrast CT images acquired through the brain. COMPARISON: CT brain 12/18/2021 earlier the same day. FINDINGS: Small, bandlike hyperattenuation within the central armin is not significantly changed. No associated mass effect or parenchymal edema. Mild diffuse cerebral volume loss. The rosales-white differentiation is maintained. No midline shift. Suggested mild chronic microvascular ischemic changes. Intracranial atherosclerotic calcifications. Right parietal subgaleal hematoma. No calvarial fracture. Partial opacification of right posterior ethmoid air cells. The mastoid air cells are clear. IMPRESSION: 1. No significant change compared to the prior CT. 2. Stable small bandlike hyperattenuation within the central armin. There is no associated parenchymal edema or mass effect. Findings are favored to represent mineralization or potentially an underlying lesion such as a cavernous malformation. MRI brain with susceptibility weighted imaging could provide further assessment as clinically warranted. Please note that all CT scans at this facility use dose modulation, iterative reconstruction, and/or weight-based dosing when appropriate to reduce radiation dose to as low as reasonably achievable. Dictated by Harish Scruggs MD @ 12/18/2021 5:39:05 PM (Electronically Signed)
== END 2021-12-18 18:10 | disposition home or self-care (01) ==
PROVIDERS: Emergency Provider Family Medicine; PCP Family Medicine
DX: S09.8XXA Other specified injuries of head, initial encounter (principal); S00.03XA Contusion of scalp, initial encounter; W10.9XXA Fall (on) (from) unspecified stairs and steps, initial encounter; Y93.9 Activity, unspecified; Y92.015 Private garage of single-family (private) house as the place of occurrence of the external cause; Y99.9 Unspecified external cause status
CPT/HCPCS: 70450; 72125; 87635; 94761; 99284; 99285

== ENCOUNTER 2022-06-07 08:07 | Day surgery (SDC) | payer MEDICARE, OTHER, SELFPAY ==
[2022-06-07] MEDS: KETOROLAC OPHTH 0.5% 1 DROP EYE-RIGHT ×3 (08:25→08:35)
[2022-06-07] MEDS: TETRACAINE 0.5% OPHTH 1 DROP EYE-RIGHT ×2 (08:25→08:30)
--- NOTE | 2022-06-07 08:27 | SUR.PREOP ---
Patient provided home covid negative results to RN.
--- NOTE | 2022-06-07 08:27 | SUR.PREOP ---
The eye drops brought by the patient (Ketorolac and Prednisolone and Ofloxacin) are examined and I have determined they are labeled by the patient's pharmacy for this patient as prescribed by the surgeon. The bottles are intact, recently obtained and appear to be correct.
[2022-06-07 08:41] VITALS: BP 165/84; PULSE 75; RESP 16; TEMP 36.5; O2SAT 98
[2022-06-07] MEDS: SODIUM CHLORIDE 0.9 % (FLUSH) 10 ML SYRINGE IVF (08:41)
[2022-06-07 08:42] VITALS: BMI 25.7
[2022-06-07] MEDS: TETRACAINE 0.5% OPHTH 2 DROP EYE-RIGHT (09:24)
[2022-06-07] MEDS: BALANCED SALT IRRIG SOLN 15 ML EYE-RIGHT (09:31)
--- NOTE | 2022-06-07 09:54 | P.ANES_ITS ---
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
[2022-06-07 10:02] VITALS: BP 146/70; PULSE 63; RESP 16; TEMP 36.4; O2SAT 98
--- NOTE | 2022-06-07 10:04 | W.ANESCHARGE ---
Anesthesia Charges Start Date/Time Anesthesia Start Date: 06/07/22 Anesthesia Start Time: 09:21 Stop Date/Time Anesthesia Stop Date: 06/07/22 Anesthesia Stop Time: 09:55
--- NOTE | 2022-06-07 10:06 | W.ANESCHARGE ---
Anesthesia Charges Start Date/Time Anesthesia Start Date: 06/07/22 Anesthesia Start Time: 09:21 Stop Date/Time Anesthesia Stop Date: 06/07/22 Anesthesia Stop Time: 09:55 Summary Extremes of Age - Over 70 or under 1: MDA
--- NOTE | 2022-06-07 11:38 | W.PM.OPTPROC ---
Procedure Note Date of procedure: 06/07/22 Will [facility] bill your pro fee for this procedure?: Yes Procedure Description: SURGEON: Kamala Moseley MD PREOPERATIVE DIAGNOSIS: Nuclear sclerotic cataract, right eye. POSTOPERATIVE DIAGNOSIS: Nuclear sclerotic cataract, right eye. NAME OF OPERATION: Phacoemulsification of cataract with posterior chamber intraocular lens implantation in the right eye. ANESTHESIA: Topical. ESTIMATED BLOOD LOSS: Less than 2 cc. COMPLICATIONS: None. PATHOLOGY SPECIMEN: None. INDICATIONS: See consult note for details. The risks, benefits and alternatives of the procedure were explained to the patient, who elected to proceed and signed informed consent to do so. PROCEDURE: The patient was brought to the pre-holding area where the right eye was identified as the operative eye. I placed my initials above this eye. The patient received eye drops consisting of 0.5% tetracaine, 1% tropicamide, 10% phenylephrine, and 0.5% ketorolac. The patient was then brought to the operating room where the right eye was again identified as the operative eye. The eye was prepped with Betadine and draped in the usual sterile ophthalmic fashion. A #15 super-sharp blade was used to create a paracentesis site. 1% non-preserved intracameral lidocaine was injected into the anterior chamber. Endocoat was injected into the anterior chamber. A 2.4 mm keratome was used to create a three-plane self-sealing incision 1 mm anterior to the temporal limbus. A cystotome was used to create an anterior capsular leaflet. The Utrata forceps were used to extend this to form a continuous curvilinear capsulorrhexis. Hydrodissection was performed. The cataract was removed with phacoemulsification using the [id number] technique. The irrigation and aspiration tip was used to remove the remaining cortex. Healon was injected into the capsular bag. An RODRIGO ZCB00 intraocular lens of 20.5 diopters was injected into the capsular bag. The irrigation and aspiration tip was used to remove the remaining viscoelastic. Balanced salt solution on a cannula was used to hydrate the wound, and the wound was found to be watertight. The pupil was noted to be round. DISPOSITION: The patient was taken to the recovery room and discharged to home in stable condition. The patient was instructed to call me or go to the emergency department with any sudden change, including dramatic loss of vision, severe pain in the eye or eyebrow region, nausea, or vomiting. The patient will follow up in the clinic tomorrow morning.
--- NOTE | 2022-06-07 11:39 | W.PM.OPTPROC ---
Procedure Note Date of procedure: 06/07/22 Will [facility] bill your pro fee for this procedure?: Yes Procedure Description: SURGEON: Kamala Moseley MD PREOPERATIVE DIAGNOSIS: Nuclear sclerotic cataract, right eye. POSTOPERATIVE DIAGNOSIS: Nuclear sclerotic cataract, right eye. NAME OF OPERATION: Phacoemulsification of cataract with posterior chamber intraocular lens implantation in the right eye. ANESTHESIA: Topical. ESTIMATED BLOOD LOSS: Less than 2 cc. COMPLICATIONS: None. PATHOLOGY SPECIMEN: None. INDICATIONS: See consult note for details. The risks, benefits and alternatives of the procedure were explained to the patient, who elected to proceed and signed informed consent to do so. PROCEDURE: The patient was brought to the pre-holding area where the right eye was identified as the operative eye. I placed my initials above this eye. The patient received eye drops consisting of 0.5% tetracaine, 1% tropicamide, 10% phenylephrine, and 0.5% ketorolac. The patient was given 12.5 grams IV mannitol and a [place] balloon was placed for 8 minutes pre-operatively. The patient was then brought to the operating room where the right eye was again identified as the operative eye. The eye was prepped with Betadine and draped in the usual sterile ophthalmic fashion. A #15 super-sharp blade was used to create a paracentesis site. 1% non-preserved intracameral lidocaine was injected into the anterior chamber. Endocoat was injected into the anterior chamber. A 2.4 mm keratome was used to create a three-plane self-sealing incision 1 mm anterior to the temporal limbus. A cystotome was used to create an anterior capsular leaflet. The Utrata forceps were used to extend this to form a continuous curvilinear capsulorrhexis. Hydrodissection was performed. The cataract was removed with phacoemulsification using the [id number] technique. The irrigation and aspiration tip was used to remove the remaining cortex. Healon was injected into the capsular bag. An RODRIGO ZCB00 intraocular lens of 24.0 diopters was injected into the capsular bag. The irrigation and aspiration tip was used to remove the remaining viscoelastic. Balanced salt solution on a cannula was used to hydrate the wound, and the wound was found to be watertight. The pupil was noted to be round. DISPOSITION: The patient was taken to the recovery room and discharged to home in stable condition. The patient was instructed to call me or go to the emergency department with any sudden change, including dramatic loss of vision, severe pain in the eye or eyebrow region, nausea, or vomiting. The patient will follow up in the clinic tomorrow morning.
== END 2022-06-07 10:18 | disposition home or self-care (01) ==
PROVIDERS: PCP Family Medicine; Visit Provider Ophthalmology
PROC: (CPT 66984; principal; 2022-06-07 08:15)
DX: H25.11 Age-related nuclear cataract, right eye (principal)
CPT/HCPCS: 66984; 00142; 99100; A9270; J2250; J3010; V2632

== ENCOUNTER 2022-06-21 06:44 | Day surgery (SDC) | payer MEDICARE, OTHER, SELFPAY ==
[2022-06-21] MEDS: TETRACAINE 0.5% OPHTH 1 DROP EYE-LEFT ×2 (06:55→07:00)
[2022-06-21] MEDS: KETOROLAC OPHTH 0.5% 1 DROP EYE-LEFT ×3 (06:55→07:05)
[2022-06-21] MEDS: SODIUM CHLORIDE 0.9 % (FLUSH) 10 ML SYRINGE IVF (07:03)
[2022-06-21 07:16] VITALS: BMI 25.8
[2022-06-21 07:19] VITALS: BP 146/70; PULSE 60; RESP 16; TEMP 36.6; O2SAT 98
[2022-06-21] MEDS: BALANCED SALT IRRIG SOLN 15 ML EYE-LEFT (07:21)
[2022-06-21] MEDS: TETRACAINE 0.5% OPHTH 2 DROP EYE-LEFT (07:21)
--- NOTE | 2022-06-21 07:52 | SUR.PREOP ---
The eye drops brought by the patient (Ketorolac and Prednisolone) are examined and I have determined they are labeled by the patient's pharmacy for this patient as prescribed by the surgeon. The bottles are intact, recently obtained and appear to be correct.
--- NOTE | 2022-06-21 08:08 | W.ANESCHARGE ---
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
--- NOTE | 2022-06-21 08:16 | W.ANESCHARGE ---
Anesthesia Charges Start Date/Time Anesthesia Start Date: 06/21/22 Anesthesia Start Time: 07:47 Stop Date/Time Anesthesia Stop Date: 06/21/22 Anesthesia Stop Time: 08:27 Summary Extremes of Age - Over 70 or under 1: MDA
[2022-06-21 08:24] VITALS: BP 153/68; PULSE 62; RESP 16; TEMP 36.2; O2SAT 98
--- NOTE | 2022-06-21 09:14 | W.PM.OPTPROC ---
Procedure Note Date of procedure: 06/21/22 Will [facility] bill your pro fee for this procedure?: Yes Procedure Description: SURGEON: Kamala Moseley MD PREOPERATIVE DIAGNOSIS: 1. Nuclear sclerotic cataract, left eye. 2. Miosis, left eye. POSTOPERATIVE DIAGNOSIS: 1. Nuclear sclerotic cataract, left eye. 2. Miosis, left eye. NAME OF OPERATION: Phacoemulsification of cataract with posterior chamber intraocular lens implantation in the left eye with pupilloplasty. ANESTHESIA: Topical. ESTIMATED BLOOD LOSS: Less than 2 cc. COMPLICATIONS: None. PATHOLOGY SPECIMEN: None. INDICATIONS: See consult note for details. The risks, benefits and alternatives of the procedure were explained to the patient, who elected to proceed and signed informed consent to do so. PROCEDURE: The patient was brought to the pre-holding area where the left eye was identified as the operative eye. I placed my initials above this eye. The patient received eye drops consisting of 0.5% tetracaine, 1% tropicamide, 10% phenylephrine, and 0.5% ketorolac. The patient was then brought to the operating room where the left eye was again identified as the operative eye. The eye was prepped with Betadine and draped in the usual sterile ophthalmic fashion. A #15 super-sharp blade was used to create a paracentesis site. 1% non-preserved intracameral lidocaine was injected into the anterior chamber. Endocoat was injected into the anterior chamber. A 2.4 mm keratome was used to create a three-plane self-sealing incision 1 mm anterior to the temporal limbus. A #15 super-sharp blade was used to create four additional paracentesis sites. Four Grieshaber iris hooks were placed in order to stretch the iris. A cystotome was used to create an anterior capsular leaflet. The Utrata forceps were used to extend this to form a continuous curvilinear capsulorrhexis. Hydrodissection was performed. The cataract was removed with phacoemulsification using the [id number]-guh-[id number] technique. The irrigation and aspiration tip was used to remove the remaining cortex. Healon was injected into the capsular bag. An RODRIGO ZCB00 intraocular lens of 20.5 diopters was injected into the capsular bag. The four Grieshaber iris hooks were removed. The irrigation and aspiration tip was used to remove the remaining viscoelastic. Miostat was injected into the anterior chamber. Balanced salt solution on a cannula was used to hydrate the wound, and the wound was found to be watertight. The pupil was noted to be round. DISPOSITION: The patient was taken to the recovery room and discharged to home in stable condition. The patient was instructed to call me or go to the emergency department with any sudden change, including dramatic loss of vision, severe pain in the eye or eyebrow region, nausea, or vomiting. The patient will follow up in the clinic tomorrow morning.
== END 2022-06-21 08:51 | disposition home or self-care (01) ==
PROVIDERS: PCP Family Medicine; Visit Provider Ophthalmology
PROC: (CPT 66982; principal; 2022-06-21 06:45)
DX: H25.12 Age-related nuclear cataract, left eye (principal); H57.03 Miosis
CPT/HCPCS: 66982; 00142; 99100; A9270; J2250; J3010; V2632

== ENCOUNTER 2022-11-27 10:00 | Outpatient (CLI) | payer MEDICARE, OTHER, SELFPAY ==
--- OUTSIDE RECORDS SUMMARY | 2022-11-29 13:16 | XMS_ITS | Continuity of Care Document ---
Author Name Unknown Organization Z [facility] Address [address] [place] [address] Phone Care Team Providers Care Regional Sales Associate Name Role Phone Unavailable Unavailable Unavailable Advance Directives Directive Yes / No Effective Date File Name No Information Encounters Encounter Description Practice Location Reason(s) For Visit Diagnoses Date Provider Providers Copied on Encounter Z [facility], [address], [place], [address], [place] tel:[phone] [facility] [employer] No Information 0 5200 1 No Information Family History Family Member Type Diagnosis Age At Onset No Information Payers Payer name Insurance type Covered constitution party ID Authoriza tion(s) No Information Social History Type Description Quantity Date Captured Comments Sex Female Smoking Status No Information Chief Complaint And Reason For Visit No Information Reason For Referral Reason For Referral No Information History Of Present Illness Encounter Date Complaint History Of Prese nt Illness No Information Functional Status Date Functional Assessmen t No Information Instructions Date Instruction Additional Infor mation No Information Assessments Type Assessment Date No Information Patient Care Teams Name Effective Dates (start - stop) Status Members No Information
--- NOTE | 2022-11-30 12:53 | ONC.NURNOTE ---
Patient was referred to us by PCP for low platelet count and wbc. Discussed with front desk associate and she is requesting that CBC with peripheral smear be done in one month. If still low, will see patient. PCP notified of this, and patient notified as well.
== END 2022-11-27 10:01 | disposition home or self-care (01) ==
LOC: NFLDREF 11-29 13:15
PROVIDERS: PCP Family Medicine; Referring Provider Family Medicine; Visit Provider Family Medicine
DX: I10 Essential (primary) hypertension (principal); E78.5 Hyperlipidemia, unspecified; E53.8 Deficiency of other specified B group vitamins; D72.819 Decreased white blood cell count, unspecified; E55.9 Vitamin D deficiency, unspecified
CPT/HCPCS: 80053; 80061; 82306; 82607

== ENCOUNTER 2023-01-01 10:21 | Outpatient (CLI) | payer MEDICARE, OTHER, SELFPAY ==
--- OUTSIDE RECORDS SUMMARY | 2023-01-01 10:24 | XMS_ITS | Continuity of Care Document ---
Author Name Unknown Organization Z [facility] Address [address] [place] [address] Phone Care Team Providers Care Credentialing Coordinator Name Role Phone Unavailable Unavailable Unavailable Advance Directives Directive Yes / No Effective Date File Name No Information Encounters Encounter Description Practice Location Reason(s) For Visit Diagnoses Date Provider Providers Copied on Encounter Z [facility], [address], [place], [address], [place] tel:[phone] [facility] [employer] No Information 0 5200 1 No Information Family History Family Member Type Diagnosis Age At Onset No Information Payers Payer name Insurance type Covered green party ID Authoriza tion(s) No Information Social [...]
--- NOTE | 2023-01-01 11:00 | CRLHL7_ITS ---
For Patients: As a result of the Century Cures Act, medical imaging exams and procedure reports are released immediately into your electronic medical record. You may view this report before your referring provider. If you have questions, please contact your health care provider. INDICATION: ELEVATED LFT, FAMILY HISTORY OF NON-ALCOHOLIC LIVER CIRRHOSIS COMPARISON: none TECHNIQUE: Real time rosales scale imaging and color Doppler analysis was performed of the right upper quadrant. FINDINGS: The patient`s liver is of normal size and has mildly coarsened and increased echogenicity. There is a normal appearance of the hepatic IVC and proximal abdominal aorta. There is no evidence of ascites. The gallbladder is of normal size and there is no evidence of intraluminal stones or sludge. The gallbladder wall measures 1.9 mm in thickness. The common bile duct is of normal size and measures 2.9 mm in diameter at the level of the daniella hepatis. The pancreas appears normal. There is no evidence of a stone or hydronephrosis within the right kidney. The right kidney measures 9.6 cm in length. IMPRESSION: Mild hepatic steatosis. No ascites. Normal gallbladder. Dictated by Baljinder Watson MD @ 01/01/2023 11:09:19 AM (Electronically Signed)
== END 2023-01-01 10:22 | disposition home or self-care (01) ==
PROVIDERS: PCP Family Medicine; Visit Provider Family Medicine
DX: R79.89 Other specified abnormal findings of blood chemistry (principal); K76.0 Fatty (change of) liver, not elsewhere classified; Z83.79 Family history of other diseases of the digestive system
CPT/HCPCS: 76705

== ENCOUNTER 2023-01-10 15:13 | Outpatient (CLI) | payer MEDICARE, OTHER, SELFPAY ==
--- OUTSIDE RECORDS SUMMARY | 2023-01-17 11:27 | XMS_ITS | Continuity of Care Document ---
Author Name Unknown Organization Z [facility] Address [address] [place] [address] Phone Care Team Providers Care Merchandising Lead Name Role Phone Unavailable Unavailable Unavailable Advance Directives Directive Yes / No Effective Date File Name No Information Encounters Encounter Description Practice Location Reason(s) For Visit Diagnoses Date Provider Providers Copied on Encounter Z [facility], [address], [place], [address], [place] tel:[phone] [facility] [employer] No Information 0 5200 1 No Information Family History Family Member Type Diagnosis Age At Onset No Information Payers Payer name Insurance type Covered libertarian ID Authoriza tion(s) No Information Social History [...]
== END 2023-01-10 15:14 | disposition home or self-care (01) ==
LOC: NFLDREF 01-17 11:25
PROVIDERS: PCP Family Medicine; Referring Provider Family Medicine; Visit Provider Family Medicine
DX: R79.89 Other specified abnormal findings of blood chemistry (principal); D69.6 Thrombocytopenia, unspecified; R53.83 Other fatigue
CPT/HCPCS: 82728; 83540; 83550; 86015; 86039; 86381; 86803; 87340

== ENCOUNTER 2023-01-17 15:00 | Outpatient (CLI) | payer MEDICARE, OTHER, SELFPAY ==
--- OUTSIDE RECORDS SUMMARY | 2023-01-17 15:03 | XMS_ITS | Continuity of Care Document ---
Author Name Unknown Organization Z [facility] Address [address] [place] [address] Phone Care Team Providers Care Editor Producer Name Role Phone Unavailable Unavailable Unavailable Advance Directives Directive Yes / No Effective Date File Name No Information Encounters Encounter Description Practice Location Reason(s) For Visit Diagnoses Date Provider Providers Copied on Encounter Z [facility], [address], [place], [address], [place] tel:[phone] [facility] [employer] No Information 0 [phone] 1 No Information [...]
--- NOTE | 2023-01-17 15:15 | CRLHL7_ITS ---
For Patients: As a result of the Century Cures Act, medical imaging exams and procedure reports are released immediately into your electronic medical record. You may view this report before your referring provider. If you have questions, please contact your health care provider. INDICATION: Cirrhosis. Hemochromatosis. COMPARISON: Abdominal ultrasound dated 01 January 2023. TECHNIQUE: Abdominal MRI with T1 in- and out of phase, T2, diffusion weighted, and progressively delayed post-contrast images. Intravenous gadolinium administered. FINDINGS: No fatty infiltration of the liver. No nodularity of the liver to suggest cirrhosis. No focal abnormalities identified in the visualized portions of the liver, spleen, pancreas, adrenal glands, and kidneys. No hydronephrosis. Mild to moderate splenomegaly. No adenopathy. No bile duct dilation. Impression : 1. No acute abnormalities of the abdomen identified. 2. [id number] splenomegaly is a nonspecific finding. Dictated by Vincent James MD @ 01/24/2023 3:48:57 PM (Electronically Signed)
== END 2023-01-17 15:01 | disposition home or self-care (01) ==
PROVIDERS: PCP Family Medicine; Visit Provider Family Medicine
DX: K74.60 Unspecified cirrhosis of liver (principal); E83.119 Hemochromatosis, unspecified; R16.1 Splenomegaly, not elsewhere classified; R79.89 Other specified abnormal findings of blood chemistry; Z83.79 Family history of other diseases of the digestive system
CPT/HCPCS: 74183; A9575

== ENCOUNTER 2023-05-30 13:00 | Outpatient (RCR) | payer MEDICARE, OTHER, SELFPAY ==
[2023-05-30 10:05] LABS: Basophils Percent Auto 0.8 % (0.0-3.0); Eosinophils Percent Auto 1.3 % (0.0-7.0); Hematocrit 41.1 % (33.0-51.0); Immature Granulocytes Pct Auto 0.3 %; Lymphocytes Percent Auto 35.9 % (20-44); Mean Corpuscular HGB Conc 32 gm/dL (32-36); Mean Corpuscular Hemoglobin 33 pg (26-34); Mean Corpuscular Volume 103 fL (80-100); Monocytes Percent Auto 5.5 % (0.0-11.0); Neutrophils Percent Auto 56.2 % (42.0-72.0); Platelet Count* 107 K/uL (140-440); White Blood Count* 3.82 K/uL (4.50-11.00)
[2023-05-30 10:13] LABS: Slide Review Reflex No
[2023-05-30 11:11] LABS: Vitamin B12* 733 pg/mL (243-894)
[2023-05-30 11:13] LABS: HIV 1/2/P24 Combo Screen* Negative (Negative)
[2023-05-30 11:21] LABS: Hepatitis B Surface Antigen* Negative (Negative)
[2023-05-30 11:39] LABS: Hepatitis C Virus Antibody* Negative (Negative)
[2023-05-31 17:14] LABS: Hepatitis B Core Antibody, IgM Negative (Negative)
[2023-05-31 21:10] LABS: Folate, Serum 7.9 ng/mL (>=5.9)
[2023-06-01 00:48] LABS: Copper, Serum/Plasma 73.3 ug/dL (80.0-155.0)
--- NOTE | 2023-07-09 12:50 | ONC.NURNOTE ---
Pt questioning if she needs to have a CT scan done here in [place], comic writer discussed with Leigh who ordered scan in Jan 2023. Per Dr. Abraham pt is currently being followed at [facility] for Lymphoma and is to follow up as needed here in [place]. Pt aware that CT scan was cancelled.
== END 2023-08-12 23:59 | disposition home or self-care (01) ==
LOC: CCIC 13:00
PROVIDERS: PCP Family Medicine; Visit Provider Internal Medicine Hematology & Oncology
DX: D72.819 Decreased white blood cell count, unspecified (principal); D69.1 Qualitative platelet defects; E53.8 Deficiency of other specified B group vitamins; Z85.3 Personal history of malignant neoplasm of breast; C83.00 Small cell B-cell lymphoma, unspecified site
CPT/HCPCS: 36415; 82525; 82607; 82746; 85025; 86703; 86705; 86803; 87340; 99202; 99205; 99214; 99215; G0463

== ENCOUNTER 2023-06-11 10:11 | Outpatient (CLI) | payer MEDICARE, OTHER, SELFPAY ==
--- OUTSIDE RECORDS SUMMARY | 2023-06-13 07:23 | XMS_ITS | Continuity of Care Document ---
Author Name Unknown Organization Z [facility] Address [address] [place] [address] Phone Care Team Providers Care Physician Gynecologist Name Role Phone Unavailable Unavailable Unavailable Advance Directives Directive Yes / No Effective Date File Name No Information Encounters Encounter Description Practice Location Reason(s) For Visit Diagnoses Date Provider Providers Copied on Encounter Z [facility], [address], [place], [address], [place] tel:[phone] [facility] [employer] No Information 0 [phone] 1 No Information [...]
--- OUTSIDE RECORDS SUMMARY | 2023-06-13 07:23 | XMS_ITS | Data Portability ---
Author Name Unknown Address [address] [place] [address] Phone [phone] Organization [facility], [email or web address]_MOBILE [facility] Address [address] [place] [address] Care Team Providers Care Seismology Technical Officer Name Role Phone STEVEN JOE Primary Care Provider Assessment No assessment recorded. Plan of Treatment Reminders Order Date Submit Date Provider Last Modified By Organization Details Last Modified Time Details Appointments None recorded. Lab CBC w/ auto diff [address] [facility] (Lab), [address], [place], [address], 4 18:06:19 CMP, serum or plasma [address] [facility] (Lab), [address], [place], [address], 4 18:06:20 Referral gastroenter ologist referral 2023 024 [email or web address], [address] [place] [address], [place], [address], 4 18:18:23 home health referral [email or web address] [place] [address], [address] [place] [address], [address], 4 10:30:52 Procedures None recorded. Surgeries None recorded. Imaging US, abdomen, limited [address] [facility] (Radiology-[facility]), [address] [facility] [address], [place], [address], 18:07:01 Medication Orders escitalopra m 20 mg tablet 2023 024 [facility]/Pharmacy #[id number], [address] [place], [address], 15:39:30 Patient TargetsNo targets recorded. Patient Instructions Encounter Date Encounter Id Patient Instructions Last Modified By Organization Details Last Modified Time 03/30/2023 [id number] Increase lexapro to 20mg Discussed appetite and small frequent meals OTC Boost supplementation Continue PT as ordered Additional ER precautions discussed Follow up in 1 week ron Not available 03/30/2023 15:47:56 03/23/2023 [id number] Reviewed hospita l records in office today Complete course of antibiotics Discussed bland diet and supplements like Boost [facility] for PT strength training GI referral Order for labs and US in 2 weeks to follow up splenomegaly (likely secondary to COVID) Additional ER precautions discussed Fall precautions discussed Follow up in 2 weeks [email or web address] Not available 03/23/2023 12:41:51 Reason for Referral Home Health Referral for Mus tomasa weakness PT for strength training Referring Physician: [facility], Encounter Date: 03/23/2023 Bilingual Instructor Referral for CT of abdomen abnormal Referring Physician: [facility], Encounter Date: 03/23/2023 Results Created Date Observation Date Name Description Value Unit Range Abnormal Flag LastModifiedBy Organization Detail LastModifiedTime 03/23/19 24 03/17/2023 jesu ospina am No observ ation record ed. [email or web address] Not Available 03/23/2023 12:28:57 03/23/19 24 03/17/2023 jesu blanchardgr am No observ ation record ed. [email or web address] Not Available 03/23/2023 12:28:57 03/23/19 24 03/17/2023 CT, abdom en + pelvi s, w/ contr ast No observ ation record ed. [email or web address] Not Available 03/23/2023 12:28:58 03/23/19 24 03/22/2023 jesu ospina am No observ ation record ed. Not Available 03/23/2023 12:28:58 Result Notes None recorded. Problems Name Status Onset Date Resolution Date Notes Provider Name and Address Organization Details Recorded Time Diverticulitis Active 03/23/19 24 Steven Joe PA-C [address], [place], [place], [address] [place] [address] , [facility] 03/23/2023 12:39:22 CT of abdomen abnormal Active 03/23/19 24 Steven Joe PA-C [address], [place], [place], [address] [place] [address] , [facility] 03/23/2023 12:39:23 Splenomegaly Active 03/23/19 [address], [place], [place], [address] [place] [address] , [facility] 03/23/2023 12:39:25 Muscle weakness Active 03/23/19 24 Steven Joe PA-C [address], [place], [address] [place] [address] , [facility] 03/23/2023 12:39:26 COVID-19 Active 03/23/19 [address], [place], [address] [place] [address] , [facility] 03/23/2023 12:39:27 Essential hypertension Active 03/23/19 [address], [place], [address] [place] [address] , [facility] 03/23/2023 12:39:29 Anxiety Active 03/23/19 [address], [place], [address] [place] [address] , [facility] 03/23/2023 12:39:30 Problem Notes None recorded. Procedures Surgical History Date Name Laterality Status Provider Name and Address Organization Details Recorded Time Colonoscopy completed Not Available [facility] 10:48:42 Orthopedic Surgery completed Not Available [employer] 03/23/2023 10:48:42 Knee arthroscopy/surg stanislav completed Cristy david, [facility] 03/23/2023 11:17:58 lumpectomy of left breast completed Cristy david, [facility] 03/23/2023 11:18:11 hammer toe operation completed Cristy david, [facility] 03/23/2023 11:18:42 Imaging Results Imaging Date Name Status LastModified by Organization Details LastModified Time 03/17/2023 electrocardiogram completed Informa tion not available 03/23/2023 12:28:57 03/17/2023 electrocardiogram completed [email or web address] Informa tion not available 03/23/2023 12:28:57 03/17/2023 CT, abdomen + pelvis, w/ contrast completed Information not available 03/23/2023 12:28:58 03/22/2023 electrocardiogram completed [email or web address] Informa tion not available 03/23/2023 12:28:58 Procedure Notes None recorded. Medical Equipment None Reported. Allergies No known drug allergies Medications Name Sig Start Date Stop Date Status Note LastModified by Organization Details LastModified Time latanoprost 0.005 % eye drops INSTILL 1 DROP INTO BOTH EYES AT BEDTIME active Not Available Not Available No t Available bupropion HCl SR 150 mg tablet,12 hr sustained-r elease 150 MG ORALLY EVERY DAY active Not Available Not Available No t Available azithromyci n 250 mg tablet 03/23 completed Not Available Not Available Not Available ofloxacin 0.3 % eye drops 1 DROP TO OPERATIVE EYE 4 TIMES A DAY STARTING SUNDAY BEFORE SURGERY 03/23 completed Not Available Not Available Not Available hydrocodone 5 mg-acetamin ophen 325 mg tablet 03/23 completed Not Available Not Available Not Available hydroquinon e 4 % topical cream PLEASE SEE ATTACHED FOR DETAILED DIRECTION S 03/23 completed Not Available Not Available Not Available ondansetron HCl 4 mg tablet TAKE 1 TABLET BY MOUTH EVERY 8 HOURS NEEDED FOR NAUSEA AND VOMITING FOR 3 DAYS 03/30 completed Not Available Not Available Not Available sumatriptan 50 mg tablet 03/23 completed Not Available Not Available Not Available metronidazo le 500 mg tablet TAKE 1 TABLET BY MOUTH THREE TIMES A DAY FOR 12 DAYS 03/30 completed Not Available Not Available Not Available tramadol 50 mg tablet TAKE 1 TABLET BY MOUTH EVERY 6 HOURS NEEDED FOR PAIN FOR 3 DAYS 03/23 completed Not Available Not Available Not Available ketorolac 0.5 % eye drops INSTILL 1 DROP INTO BOTH EYES TWICE A DAY active Not Available Not Available No t Available prednisolon e acetate 1 % eye drops,suspe nsion 1 DROP TO OPERATIVE EYE 4 TIMES A DAY STARTING AFTER SURGERY 03/23 completed Not Available Not Available Not Available brimonidine 0.2 % eye drops INSTILL 1 DROP INTO BOTH EYES TWICE A DAY active Not Available Not Available No t Available omeprazole 20 mg capsule,del ayed release TAKE 1 CAPSULE BY MOUTH EVERY DAY active Not Available Not Available No t Available dorzolamide 22.3 mg-timolol 6.8 mg/mL eye drops INSTILL 1 DROP INTO BOTH EYES TWICE A DAY active Not Available Not Available No t Available hydrochloro thiazide 25 mg tablet TAKE 1 TABLET BY MOUTH EVERY DAY active Not Available Not Available No t Available cefuroxime axetil 500 mg tablet TAKE 1 TABLET BY MOUTH TWICE A DAY FOR 12 DAYS 03/30 completed Not Available Not Available Not Available timolol maleate 0.5 % eye drops INSTILL 1 DROP INTO RIGHT EYE TWICE A DAY active Not Available Not Available No t Available ondansetron 4 mg disintegrat ing tablet DISSOLVE 1 TABLET IN MOUTH EVERY 8 HOURS NEEDED FOR NAUSEA & VOMITING. active Not Available Not Available No t Available Vitamin B-12 1,000 mcg tablet TAKE 1 TABLET (1000 MCG) BY MOUTH EVERY DAY active Not Available Not Available No t Available escitalopra m 10 mg tablet TAKE 1 TABLET BY MOUTH EVERY DAY 03/30 completed Not Available Not Available Not Available escitalopra m 20 mg tablet TAKE 1 TABLET BY MOUTH EVERY DAY active Not Available Not Available No t Available Premarin 0.3 mg tablet 03/23 completed Not Available Not Available Not Available bupropion HCl XL 150 mg 24 hr tablet, extended release TAKE 1 TABLET BY MOUTH EVERY DAY IN THE MORNING. 03/23 completed Not Available Not Available Not Available cholecalcif daxa (vitamin D3) 25 mcg (1,000 unit) tablet TAKE 1 TABLET BY MOUTH EVERY DAY active Not Available Not Available No t Available COVID-19 At-Home Test kit USE DIRCTED ON PACKAGE. 03/23 completed Not Available Not Available Not Available Vitals Date Recorded Body weight Body temperature Heart rate Oxygen saturation Oxygen saturation in Arterial blood by Pulse oximetry Respiratory rate Systolic blood pressure Diastolic blood pressure Provider Name and Address Organization Details Last Updated DateTime 4 36553 g 99.4 [degF] 96 /min 96 % 96 % 14 /min 132 mm[Hg] 78 mm[Hg] Cristy Princetonnicolas david [facility] 11:10:39 Date Recorded Body mass index (BMI) Body height Provider Name and Address Organization Details Last Updated DateTime 03/23/2023 24.2 kg/m2 149.86 cm Delvis david [facility] 03/23/2023 11:02:50 Date Recorded Body height Body temperature Oxygen saturation Oxygen saturation in Arterial blood by Pulse oximetry Heart rate Systolic blood pressure Diastolic blood pressure Provider Name and Address Organization Details Last Updated DateTime 4 149.86 cm 99.3 [degF] 97 % 97 % 75 /min 128 mm[Hg] 70 mm[Hg] Cristyfortino david [facility] 15:15:52 Social History Question Answer Notes LastModified by Organizat ion Details LastModified Time Tobacco Smoking Status Former Smoker Not Available [employer] 03/23/2023 10:48:40 Do You Have An Advance Directive? Yes [email or web address] Information not available 03/23/2023 What Is Your Level Of Alcohol Consumption? Occasional [email or web address] Information not available 03/23/2023 Patients Living Environment Safe And Secure? Yes [email or web address] Information not available 03/23/2023 0) Information Provided By : Patient [email or web address] Information not available 03/23/2023 1a) Does The Patient/Caregive r/Family Report The PATIENT Having Any Of These NEW Symptoms Such As Cough? No [email or web address] Information not available 03/23/2023 1b) Does The Patient/Caregive r/Family Report The PATIENT Having Any Of These NEW Symptoms Such As Diarrhea? Yes [email or web address] Information not available 03/23/2023 1c) Does The Patient/Caregive r/Family Report The PATIENT Having Any Of These NEW Symptoms Such As Fever/chills? No [email or web address] Information not available 03/23/2023 1d) Does The Patient/Caregive r/Family Report The PATIENT Having Any Of These NEW Symptoms Such As Nasal Congestion/Runny Nose? Yes [email or web address] Information not available 03/23/2023 1e) Does The Patient/Caregive r/Family Report The PATIENT Having Any Of These NEW Symptoms Such As Respiratory Distress (acute)? No [email or web address] Information not available 03/23/2023 1f) Does The Patient/Caregive r/Family Report The PATIENT Having Any Of These NEW Symptoms Such As Rash? No [email or web address] Information not available 03/23/2023 1g) Does The Patient/Caregive r/Family Report The PATIENT Having Any OTHER NEW Symptoms (list)? If No NEW Symptoms, Enter ? No? Pain In Stomach Pain In Side Nausa No Energy [email or web address] Information not available 03/23/2023 2a) Have You Had Any Known Exposure To Anyone With A Contagious Disease Or Do You Think You HAVE This Disease : No [email or web address] Information not available 03/23/2023 3) Have You Traveled Outside Of The [place] In The Last 30 Days? No [email or web address] Information not available 03/23/2023 Sex: Female Functional Status Question Answer Note LastModified by Organization D etails LastModified Time Are you able to care for yourself? No [email or web address] Information n ot available 03/23/2023 Mental Status None recorded. Family History Relationship Description Onset Age of this Age Resolved Age Notes Mother Malignant neoplastic disease Brother Malignant neoplastic disease Sister Malignant neoplastic disease Medical History No medical history recorded. Gynecological HistoryNo gynecological history recorded. Obstetrics History GPAL:G 0 P 0 0 0 0 Immunizations Vaccine Type Date Status Provider Name and Address Organization Details Recorded Time influenza, unspecified formulation 10/30/2022 JUAN Tolentino [facility] 03/23/2023 11:15:40 SARS-COV-2 (COVID-19) vaccine, UNSPECIFIED 06/28/2020 JUAN Tolentino [facility] 03/23/2023 11:16:06 SARS-COV-2 (COVID-19) vaccine, UNSPECIFIED 08/02/2020 completed Cristy david, [facility] 03/23/2023 11:16:30 COVID-19, mRNA, LNP-S, bivalent, PF, 30 mcg/0.3 mL dose 09/26/2021 completed Not Available [facility] 03/29/2023 00:25:13 COVID-19, mRNA, LNP-S, bivalent, PF, 30 mcg/0.3 mL dose 02/07/2023 completed Cristy david, [facility] 03/23/2023 11:17:37 Past Encounters Encounter ID Performer Location Encounter Start Date Encounter Closed Date Diagnosis/Indication Diagnosis SNOMED-CT Code [id number] Steven Joe PA-C SHMG_PC_D MPK [id number] [facility] [address] [place] [address] 03/23/2023 10:21:19 03/23/2023 12:08:[address] of abdo men abnormal [id number] 07 Splenomegaly 23992127 Muscle weakness 36343374 COVID-19 291951724 Essential hypertension 47548006 Anxiety 62441974 Nausea and vomiting 1693 1999 [id number] Steven Joe PA-C [facility]PC_D MPK [id number] [facility] [place] [address] [place] [address] 03/30/2023 15:06:21 03/30/2023 16:13:24 Decrease in appetite 39763300 Depressive disorder 3548 9007 Diverticulitis 475318762 Splenomegaly 22258740 Health Concerns Section Related Observation LastModified by Organization Detai ls LastModified Time None Recorded Concern Status LastModified by Organization Details LastModified Time None Recorded Advance Directives Directive Y: Payers Encounter Date Sequence Insurance Name Policy Number Policy Olivo Covered Member ID Olivo Member ID Guarantor Name 03/30/2023 1 MED[employer] (MEDICARE REPLACEMENT/ ADVANTAGE - PFFS) Darcy Colon [id number] Darcy Colon 03/23/2023 2 [employer] (MEDICARE SUPPLEMENT) Darcy Colon [id number] Darcy Colon 03/23/2023 1 [employer] (MEDICARE REPLACEMENT/ ADVANTAGE - PFFS) Darcy Wolfdeuceshana [id number] Darcy Robertson Darlene Notes Date Note Type Note Provider Name and Address Organization Details Recorded Time 03/23/2023 text/html HPI Notes: TAX ASSISTANT to establish Prior PCP: Arlin PMHx: HTN, Anxiety Allergies: NKDA Surgery: see chart Vaccines: up to date Colonoscopy: several years ago- unclear of exact date Labs: recent hospitalization reviewed Patient is a 82 year old female who presents today for hospital follow up. She is accompanied by her today. She was recently hospitalized for COVID, splenomegaly and diverticulitis. She is currently taking metronidazole and cefuroxime and symptoms seem to be improving. Still notes LLQ pain with deep breathing , runny nose, right ear plugged; No fever, appetite low. Denies constipation, diarrhea or blood in stool. She does still have nausea and vomiting and is unable to tolerate Zofran 4mg ODT but also feels like this does not help with nausea anyways. She also reports overall generalized weakness. She has been using a walker at home to aid with ambulation. In addition, her granddaughter, who is a physical therapist, has been assisting in the home. Her is her primary caregiver. From [place]- returning in April Review of records showed diverticulitis with CT but that underlying malignancy could not be ruled out. Steven Joe PA-C [address] [place] [address], [phone], [facility] 03/23/2023 12:44:01 03/30/2023 text/html HPI Notes: Marcia corbin is a 82 year old female who presents today for hospital follow up. She is accompanied by her today. She was recently hospitalized for COVID, splenomegaly and diverticulitis. She was taking metronidazole and cefuroxime and recent CT scan showed diverticulitis improvement so these were discontinued. Still notes LLQ pain with deep breathing and splenomegaly is still noted on CT scan. No fever, appetite low. Denies constipation, diarrhea or blood in stool. She does still have nausea and vomiting and is taking Zofran 4mg ODT. She also reports overall generalized weakness. She has been using a walker at home to aid with ambulation. In addition, her granddaughter, who is a physical therapist, has been assisting in the home. Her is her primary caregiver. Review of records showed diverticulitis with CT initially but that underlying malignancy could not be ruled out. PT was ordered at last visit and they are coming 3x's/week. Steven Joe PA-C [address] [address] [address], [place], [address], [facility] 03/30/2023 15:48:53 OBGyn Episode No OBEpisode recorded.
--- OUTSIDE RECORDS SUMMARY | 2023-06-13 07:24 | XMS_ITS | Continuity of Care Document ---
Author Name Unknown Address [address] [place] [address] Phone [phone] Organization [facility] vanessa Freeman [facility], [facility] Address [address] [place] [address] Care Team Providers Care [employer] Sewer Name Role Phone SAMMI JOE Primary Care Provider [phone] Assessment No assessment recorded. Plan of Treatment Reminders Order Date Submit Date Provider Last Modified By Organization Details Last Modified Time Details Appointments None recorded. Lab CBC w/ auto diff 2023 024 [facility] (Lab), [address], [place], [address], 4 18:06:19 CMP, serum or plasma 2023 024 [facility] (Lab), [address], [place], [address], 4 18:06:20 Referral gastroenter ologist referral 2023 024 [facility] Shashank [facility], [address] [place] [address], [place], [address], 4 18:18:23 home health referral [email or web address], [address] [place] [address], [address], [address], 4 10:30:52 Procedures None recorded. Surgeries None recorded. Imaging US, abdomen, limited 2023 024 [facility] (Radiology[facility]), [address], [place], [address], 18:07:01 Medication Orders None recorded. Patient TargetsNo targets recorded. Patient Instructions Encounter Date Encounter Id Patient Instructions Last Modified By Organization Details Last Modified Time 03/23/2023 [id number] Reviewed hospita l records in office today Complete course of antibiotics Discussed bland diet and supplements like [facility] for PT strength training GI referral Order for labs and US in 2 weeks to follow up splenomegaly (likely secondary to COVID) Additional ER precautions discussed Fall precautions discussed Follow up in 2 weeks [email or web address] Not available 03/23/2023 12:41:51 Reason for Referral Home Health Referral for Mus tomasa weakness PT for strength training Referring Physician: Family Tim Medicine, Encounter Date: 03/23/2023 [employer] Lay[employer] Line Core Feeder Referral for CT of abdomen abnormal Referring Physician: Sammi Joe [facility], Encounter Date: 03/23/2023 Results Created Date Observation Date Name Description Value Unit Range Abnormal Flag LastModifiedBy Organization Detail LastModifiedTime 03/23/1903/17/2023 jesu rocdell diogr am No observ ation record ed. [email or web address] Not Available 03/23/2023 12:28:57 03/23/19 24 03/17/2023 elect rocar diogr am No observ ation record ed. [email or web address] Not Available 03/23/2023 12:28:57 03/23/19 24 03/17/2023 CT, abdom en + pelvi s, w/ contr ast No observ ation record ed. [email or web address] Not Available 03/23/2023 12:28:58 03/23/19 24 03/22/2023 elect rocdell diogr am No observ ation record ed. [email or web address] Not Available 03/23/2023 12:28:58 Result Notes None recorded. Problems Name Status Onset Date Resolution Date Notes Provider Name and Address Organization Details Recorded Time Diverticulitis Active 03/23/19 Sammi Joe PA-C [address], [place], [address] , [facility] 03/23/2023 12:39:22 CT of abdomen abnormal Active 03/23/19 [address], [place], [address] , [facility] 03/23/2023 12:39:23 Splenomegaly Active 03/23/[address] [place], [address] , [facility] 03/23/2023 12:39:25 Muscle weakness Active 03/23/19 [address], [place], [address] , [facility] 03/23/2023 12:39:26 COVID-19 Active 03/23/19 [address], [place], [place], [address] [place] [address] , [facility] 03/23/2023 12:39:27 Essential hypertension Active 03/23/19 [address], [place], [place], [address] [place] [address] , [facility] 03/23/2023 12:39:29 Anxiety Active 03/23/19 [address], [place], [place], [address] [place] [address] , [facility] 03/23/2023 12:39:30 Problem Notes None recorded. Procedures Surgical History Date Name Laterality Status Provider Name and Address Organization Details Recorded Time Colonoscopy completed Not Available [facility] 10:48:42 Orthopedic Surgery completed Not Available [facility] 03/23/2023 10:48:42 Knee arthroscopy/surg stanislav completed Cristy david [facility] 03/23/2023 11:17:58 lumpectomy of left breast completed Cristy david [facility] 03/23/2023 11:18:11 hammer toe operation completed Cristy david, [place] - [facility] 03/23/2023 11:18:42 Imaging Results None recorded. Procedure Notes None recorded. Medical Equipment None [...] Address Organization Details Last Updated DateTime 4 [address] g 99.4 [degF] 96 /min 96 % 96 % 14 /min 132 mm[Hg] 78 mm[Hg] Cristy david [facility] 4 11:10:39 Date Recorded Body mass index (BMI) Body height Provider Name and Address Organization Details Last Updated DateTime 03/23/2023 24.2 kg/m2 149.86 cm Delvis david [facility] 03/23/2023 11:02:50 Social History Question Answer Notes LastModified by [...] Details Recorded Time influenza, unspecified formulation 10/30/2022 completed Cristy Shwetha david, [facility] 03/23/2023 11:15:40 SARS-COV-2 (COVID-19) vaccine, UNSPECIFIED 06/28/2020 completed Cristy Hagaman null, [facility] 03/23/2023 11:16:06 SARS-COV-2 (COVID-19) vaccine, UNSPECIFIED 08/02/2020 completed Cristy Hagaman null, [facility] 03/23/2023 11:16:30 COVID-19, mRNA, LNP-S, bivalent, PF, 30 mcg/0.3 mL dose 09/26/2021 completed Not Available [facility] 03/29/2023 00:25:13 COVID-19, mRNA, LNP-S, bivalent, PF, 30 mcg/0.3 mL dose 02/07/2023 completed Cristy Hagaman null, [facility] 03/23/2023 11:17:37 Past Encounters Encounter ID Performer Location Encounter Start Date Encounter Closed Date Diagnosis/Indication Diagnosis SNOMED-CT Code [id number] Sammi Joe PA-C [facility] [address] [place] [address] 03/23/2023 10:21:19 03/23/2023 12:08:[address] of abdo men abnormal [id number] 07 Splenomegaly 93602547 Muscle weakness 25001637 COVID-19 442069064 Essential hypertension 79853392 Anxiety 89021132 Nausea and vomiting 1693 1999 Health Concerns Section Related Observation LastModified by Organization Detai ls LastModified Time None Recorded Concern Status LastModified by Organization Details LastModified Time None Recorded Payers Encounter Date Sequence Insurance Name Policy Number Policy Olivo Covered Member ID Olivo Member ID Guarantor Name 03/23/2023 2 [employer] (MEDICARE SUPPLEMENT) Darcy Colon [id number] Darcy Colon 03/23/2023 1 [employer] (MEDICARE REPLACEMENT/ ADVANTAGE - PFFS) Darcy Colon [id number] Darcy Colon Notes Date Note Type Note Provider Name and Address Organization Details Recorded Time 03/23/2023 text/html HPI Notes: 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 Her is her primary caregiver. From [place]- returning in April Review of records showed diverticulitis with CT but that underlying malignancy could not be ruled out. Sammi Joe PA-C [address], [place], [address], [place] - [facility] 03/23/2023 12:44:01 OBGyn Episode No OBEpisode recorded.
--- OUTSIDE RECORDS SUMMARY | 2023-06-13 07:24 | XMS_ITS | Continuity of Care Document ---
Author Name Unknown Address [address] [place] [address] Phone [phone] Organization [facility] Randy mendez [facility], [facility] Address [address] [place] [address] Care Team Providers Care Automotive [employer] Counter Associate Name Role Phone SAMMI JOE Primary Care Provider [phone] Assessment No assessment recorded. Plan of Treatment Reminders Order Date Submit Date Provider Last Modified By Organization Details Last Modified Time Details Appointments None recorded. Lab None recorded. Referral None recorded. Procedures None recorded. Surgeries None recorded. Imaging None recorded. Medication Orders escitalopra m 20 mg tablet 2023 024 [facility] #[id number], [address] [place], [address], 15:39:30 Patient TargetsNo targets recorded. 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 Not Available 03/23/2023 12:28:57 03/23/19 24 03/17/2023 elect rocar diogr am No observ ation record ed. [email or web address] Not Available 03/23/2023 12:28:57 03/23/19 24 03/17/2023 CT, abdom en + pelvi s, w/ contr ast No observ ation record ed. [email or web address] Not Available 03/23/2023 12:28:58 03/23/19 24 03/22/2023 elect rocar diogr am No observ ation record ed. [email or web address] Not Available 03/23/2023 12:28:58 Result Notes None recorded. Problems Name Status Onset Date Resolution Date Notes Provider Name and Address Organization Details Recorded Time Diverticulitis Active 03/23/19 24 Sammi Joe PA-C [address], [place], [address] , [place] [facility] 03/23/2023 12:39:22 CT of abdomen abnormal Active 03/23/19 24 Sammi Joe PA-C [address], [place], [address] , [place] [facility] 03/23/2023 12:39:23 Splenomegaly Active 03/23/19 24 Sammi Joe PA-C [address], [place], [address] , [place] [facility] 03/23/2023 12:39:25 Muscle weakness Active 03/23/19 24 Sammi Joe PA-C [address], [place], [address] , [place] [facility] 03/23/2023 12:39:26 COVID-19 Active 03/23/19 24 Sammi Joe PA-C [address], [place], [address] , [place] [facility] 03/23/2023 12:39:27 Essential hypertension Active 03/23/19 24 Sammi Joe PA-C [address], [place], [address] , [facility] 03/23/2023 12:39:29 Anxiety Active 03/23/19 Sammi Joe PA-C [address], [place], [address] , [facility] 03/23/2023 12:39:30 Problem Notes None recorded. Procedures Surgical History Date Name Laterality Status Provider Name and Address Organization Details Recorded Time Colonoscopy completed Not Available [facility] 10:48:42 Orthopedic Surgery completed Not Available [facility] 03/23/2023 10:48:42 Knee arthroscopy/surg stanislav [facility] 11:17:58 lumpectomy of left breast [facility]/23/2023 11:18:11 hammer toe operation [facility]/23/2023 11:18:42 Imaging Results None recorded. Procedure [...] Available Not Available Vitals Date Recorded Body height Body temperature Oxygen saturation Oxygen saturation in Arterial blood by Pulse oximetry Heart rate Systolic blood pressure Diastolic blood pressure Provider Name and Address Organization Details Last Updated DateTime 4 149.86 cm 99.3 [degF] 97 % 97 % 75 /min 128 mm[Hg] 70 mm[Hg] Cristy Elkinsnicolas david, [place] [facility] 15:15:52 Social History Question Answer Notes LastModified [...] Time influenza, unspecified formulation 10/30/2022 completed Cristy david, [facility] 03/23/2023 11:15:40 SARS-COV-2 (COVID-19) vaccine, UNSPECIFIED 06/28/2020 completed Cristy Tadeo null, [facility] 03/23/2023 11:16:06 SARS-COV-2 (COVID-19) vaccine, UNSPECIFIED 08/02/2020 completed Cristy Tadeo null, [facility] 03/23/2023 11:16:30 COVID-19, mRNA, LNP-S, bivalent, PF, 30 mcg/0.3 mL dose 09/26/2021 completed Not Available [facility] 03/29/2023 00:25:13 COVID-19, mRNA, LNP-S, bivalent, PF, 30 mcg/0.3 mL dose 02/07/2023 completed Cristy Tadeo null, [facility] 03/23/2023 11:17:37 Past Encounters Encounter ID Performer Location Encounter Start Date Encounter Closed Date Diagnosis/Indication Diagnosis SNOMED-CT Code [id number] Sammi Joe PA-C [facility] [address] [place] [address] 03/23/2023 10:21:19 03/23/2023 12:08:[address] of abdo men abnormal 195601250101808 07 Splenomegaly 92266191 Muscle weakness 31507613 COVID-19 206754317 Essential hypertension 22021345 Anxiety 73133683 Nausea and vomiting 1693 1999 [id number] Sammi Joe PA-C [facility] [address] [facility] [place] [address] 03/30/2023 15:06:21 03/30/2023 16:13:24 Decrease in appetite 33130523 Depressive disorder 3548 9007 Diverticulitis 347486632 Splenomegaly 00458714 Health Concerns Section Related Observation LastModified by Organization Detai ls LastModified Time None Recorded Concern Status LastModified by Organization Details LastModified Time None Recorded Payers Encounter Date Sequence Insurance Name Policy Number Policy Olivo Covered Member ID Olivo Member ID Guarantor Name 03/30/2023 1 [employer] (MEDICARE REPLACEMENT/ ADVANTAGE - PFFS) Darcy Colon [id number] Darcy Colon Notes Date Note Type Note Provider Name and Address Organization Details Recorded Time 03/30/2023 text/html HPI Notes: Marcia corbin is [...] last visit and they are coming 3x's/week. Sammi Joe PA-C [address], [place], [address], [place] [facility] 03/30/2023 15:48:53 OBGyn Episode No OBEpisode recorded.
--- OUTSIDE RECORDS SUMMARY | 2023-06-13 07:25 | XMS_ITS | Clinical Summary ---
Author Name Unknown Organization [facility] Address [address] [place] [address] Care Team Providers Care Healthcare Advisory Services Manager Name Role Phone Elsewhere, Pcp Primary Care Provider Unavailabl e Source Comments Patient records contain information from all sites at [facility]. For routine questions regarding patient records, call [phone] during business hours, M-F 8:00 AM - 5:00 PM Central Time. Record requests for emergency care only can be directed to [phone] at any time.[facility] Allergies No known active allergies Medications Medication Sig Dispensed Refills Start Date End Date Status buPROPion XL (WELLBUTRIN XL) 150 mg 24 hr tablet Take 150 mg by mouth daily. 02/09/2017 Active omeprazole (PriLOSEC) [address] capsule Take 20 mg by mouth at bedtime. 06/18/2020 Active escitalopram (LEXAPRO) 20 mg tablet Take 20 mg by mouth daily. 12/06/2021 Active dorzolamide-timoloL (COSOPT) 22.3-6.8 mg/mL ophthalmic solution Administer 1 drop into both eyes 2 (two) times a day. Active ketorolac (ACULAR) 0.5 % ophthalmic solution Administer 1 drop into both eyes 2 (two) times a day. Active brimonidine (ALPHAGAN) 0.2 % ophthalmic solution Administer 1 drop into both eyes 3 (three) times a day. Active acetaminophen (TYLENOL) 500 mg tablet Take 500 mg by mouth daily. Active ondansetron ODT (ZOFRAN-ODT) 4 mg disintegrating tablet Dissolve 4 mg in the mouth every 8 (eight) hours as needed for nausea or vomiting. Active pyridoxine, vitamin B6, (B-6) 100 mg tablet Take 1 tablet (100 mg total) by mouth daily. 30 tablet 04/24/2023 05/24/2023 thiamine (VITAMIN B1) 100 mg tablet Take 1 tablet (100 mg total) by mouth daily. 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 Gastroesophageal Reflux Disease Without Esophagi tis 04/12/2023 Glaucoma 04/12/2023 Osteoarthritis 04/12/2023 Anemia In Neoplastic Disease 04/12/2023 Thrombocytopenia 04/12/2023 Lentigo 04/12/2023 Elevated Creatinine 04/12/2023 Nausea And Vomiting 04/12/2023 Dysphagia 04/12/2023 Encephalopathy Metabolic 04/05/2023 Hypercalcemia 04/05/2023 Malnutrition Severe Protein-Calorie 04/05/2023 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 04/02/2023 Anxiety Disorder Unspecified 03/22/2023 Parkinsonism Unspecified 04/13/2022 Overview: Diagnosis Maintenance Updates Unspecified Dementia Unspeci fied Severity Without Behavioral Disturbance Psychotic disturbance Mood Disturbance And Anxiety 04/13/2022 Malignant Neoplasm Of Breast Female Left 017 Hypertension Essential Primary 06/22/2016 Resolved Problems Problem Noted Date Diagnosed Date Resolved Date Lymphoma 04/12/2023 04/12/2023 Restless Leg Syndrome 04/12/20232023 Malignant Neoplasm Of Skin B melissa Cell Carcinoma 04/12/2023 04/12/2023 Postmenopausal Atrophic Vaginitis 04/12/2023 04/12/2023 Encephalopathy 04/12/2023 04/12/2023 Malnutrition Protein-Calorie Unspecified 04/12/2023 04/12/2023 Hypophosphatemia 04/07/2023 04/12/2023 Dehydration 04/05/2023 04/12/2023 Hypokalemia 04/05/2023 04/12/2023 Diverticulitis 03/22/2023 04/12/2023 Abnormal Gait Non Orthopedic 04/13/2022 04/12/2023 Prolapse Uterovaginal 06/27/20062023 Herpes Zoster Positive Eye Complication 07/23/2003 04/12/2023 Migraine Headache 08/02/2002 04/12/2023 Overview: Migraine Without Aura Encounters Date Type Department Care Team Description 06/01/2023 9:30 AM CDT Office Visit Division of Hematology in [place], [place] [address] [place] [phone] Claudia Garcia M.D. 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 05/29/2023 1:50 PM CDT - 05/29/2023 11:59 PM CDT Hospital Encounter Department of Laboratory Medicine in [address] [phone] Samir Laureano M.D. Thrombocytopenia (HCC); Hypokalemia; Anemia Macrocytic Discharge Disposition: Home or Self Care 05/25/2023 7:40 AM CDT - 05/25/2023 11:59 PM CDT Hospital Encounter Department of Radiology, [place], [place] [address] [place] [phone] Samir Laureano M.D. Thrombocytopenia (HCC); Hypokalemia; Anemia Macrocytic Discharge Disposition: Home or Self Care 05/04/2023 10:30 AM ACTING TEACHER Infusion Department of Infusion Therapy in [place], [place] [address] [place] [phone] Samir Laureano M.D. 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 Lymphoplasmacytic Lymphoma (HCC) Discharge Disposition: Home or Self Care 04/27/2023 10:30 AM ACTING TEACHER Infusion Department of Infusion Therapy in [place], [place] [address] [place] [address] Samir Laureano M.D. Lymphoplasmacytic Lymphoma (HCC) (Primary Dx) Discharge Disposition: Home or Self Care 04/27/2023 8:20 AM ACTING TEACHER - 04/27/2023 11:59 PM ACTING TEACHER Hospital Encounter Department of Laboratory Medicine and Pathology, [facility] in [place], [place] [address] [place] [address] Samir Laureano M.D. Lymphoplasmacytic Lymphoma (HCC) Discharge Disposition: Home or Self Care 04/19/2023 Orders Only Division of Hematology in [place], [place] [address] [place] [address] Lambert Roy M.D. 04/19/2023 Clinical Communication [facility] [address] [place] [phone] Samir Laureano M.D. 04/19/2023 Clinical Communication [facility] [address] [place] [phone] Samir Laureano M.D. Post Hospital Follow-up 04/12/2023 Orders Only Department of Oncology in [place], [place] [address] [place] [phone] Satnam Lema M.B.B.S. 04/06/2023 9:00 AM ACTING TEACHER Anesthesia Event Department of Anesthesia, [place], [place] [address] [place] [address] Tramaine Juarez APRN, JOSE F 04/02/2023 9:54 AM ACTING TEACHER - 04/23/2023 12:33 PM ACTING TEACHER Hospital Encounter [facility], [facility], Seventh Floor [address] [place] [address] Sean Jansen M.D. Szostek, Jason H, M.D. Schouten, Will M, M.D. Ariel Sevilla M.D. José Allison M.B.BAdalidS. Lambert Roy M.D. Hu Cardenas M.D. Weakness General (Primary Dx); Hypokalemia; Hypercalcemia; Dysphagia [R13.10]; Dehydration [E86.0]; Malnutrition Protein-Calorie Unspecified (HCC) [E46]; Lymphoplasmacytic Lymphoma (HCC) Discharge Disposition: Home or Self Care from Last 3 Months Immunizations Name Administration Dates Next Due DTP 05/23/1989 DTaP (Infanrix, Tripedia) 08/10/1999 HZV (ZOSTAVAX) 09/23/2009 Influenza high dose QV(65 ye ars or older) (PF) 11/29/2022,12/06/2021,12/01/2020,2019 PCV13 01/02/2018 PPSV23(Discontinued) 12/21/2010 RZV (SHINGRIX) 07/17/2018 SARS-COV-2 (COVID-19) - PFIZ ER BIVALENT TS(Discontinued)(12 YEARS OR OLDER) 09/26/2021 Td Preservative Free (TENIVA C, DECAVAC) 06/12/2006 Tdap 07/17/2018 influenza vaccine quad (FLUZONE/FLUARIX) (6 months and older)(PF) 01/02/2018,12/11/2016,01/08/2014,2011,12/21/2010,01/18/2010,12/04/2008,1 ,12/05/2006,12/18/2005, 003,01/04/2000 Family History Medical History Relation Name Comments Prostate cancer Brother Jovan Reeves Dementia Father Gil Avendano at 74 Breast cancer Sister 1 Karol Saad Depression Sister 2 Karol Ardon Relation Name Status Comments Brother Jovan Reeves Father Gil Avendano Sister 1 Karol Nash Sister 2 Karol Ardon Social History Tobacco Use Types Packs/Day Years Used Date Smoking Tobacco: Light Smoker Cigarettes 0.3 14 Started: 962; Last attempted to quit: 09/05/1975 Smokeless Tobacco: Never Tobacco Cessation:Ready to Q uit: Not Asked; Counseling Given: Not Answered Comments:Havent smoked since 1975 Alcohol Use Standard Drinks/Week Comments Yes 1 (1 standard drink = 0.6 oz pure alcohol) approximately 1-2 servings of alcohol per 1-2 weeks. [facility] Utilities Answer Date Recorded In the past 12 months has e [employer], gas, oil, or water [employer] threatened to shut off services in your home? No 05/31/2023 Humiliation, Afraid, Rape, and Kick questionnair e Answer Date Recorded Within the last year, have y ou been afraid of your partner or ex-partner? No 04/06/2023 Within the last year, have y ou been humiliated or emotionally abused in other ways by your partner or ex-partner? No Within the last year, have y ou been kicked, hit, slapped, or otherwise physically hurt by your partner or ex-partner? No 04/06/2023 Within the last year, have y ou been raped or forced to have any kind of sexual activity by your partner or ex-partner? No 04/06/2023 Social Connection and Isolat ion Panel [NHANES] Answer Date Recorded In a typical week, how many times do you talk on the phone with family, friends, or neighbors? More than three times a week 12/07/2021 How often do you get togethe r with friends or relatives? Twice a week 12/07/2021 How often do you attend chur or adventism services? More than 4 times per year 12/07/2021 Do you belong to any clubs o r organizations such as taoism groups, unions, fraternal or athletic groups, or school groups? Yes 12/07/2021 How often do you attend meet ings of the clubs or organizations you belong to? More than 4 times per year 12/07/2021 Are you , , di vorced, , never , or living with a partner? 12/07/2021 AUDIT-C Answer Date Recorded Q1: How often do you have a drink containing alc ohol? 2-4 times a month 12/07/2021 Q2: How many drinks containi ng alcohol do you have on a typical day when you are drinking? 1 or 2 12/07/2021 Q3: How often do you have si x or more drinks on one occasion? Never 12/07/2021 Overall Financial Resource Strain (CARDIA) Answe r Date Recorded How hard is it for you to pa y for the very basics like food, housing, medical care, and heating? Not hard at all 12/07/2021 PHQ-2 Answer Date Recorded PHQ-2 Score 0 06/12/2021 [facility] - Occupational Stress Questionnaire Answer Date Recorded Do you feel stress - tense, restless, nervous, or anxious, or unable to sleep at night because your mind is troubled all the time - these days? To some extent 12/07/2021 Exercise Vital Sign Answer Date Recorde d On average, how many days pe r week do you engage in moderate to strenuous exercise (like a brisk walk)? 2 days 05/28/2023 On average, how many minutes do you engage in exercise at this level? 30 min 05/28/2023 Hunger Vital Sign Answer Date Recorded Within the past 12 months, y ou worried that your food would run out before you got the money to buy more. Never true 05/31/19 24 Within the past 12 months, t he food you bought just didn't last and you didn't have money to get more. Never true 05/31/2023 PRAPARE - Transportation Answer Date Re corded In the past 12 months, has l ack of transportation kept you from medical appointments or from getting medications? No 05/2023 In the past 12 months, has l ack of transportation kept you from meetings, work, or from getting things needed for daily living? No 05/31/2023 Depression Answer Date Recor ded PHQ-9 Total Score (max 27) 5 06/12 Nutrition Answer Date Recorded Nutrition: EVOO Fat Source Yes 05/27 On average, how many serving s of fruits and vegetables do you eat per day (serving size is equal to 1 cup or approximately the size of a tennis ball)? 0-2 05/28/2023 Dental Answer Date Recorded Dental: Regular Dentist Yes 09/22/19 21 Employment Answer Date Recorded Employment status Retired 05/28/2023 Housing Stability Answer Date Recorded What is your living situation today? I have a [facility] place to live 05/31/2023 Education Answer Date Recorded What is the highest level of school you have completed or the highest degree you have received? 12th grade 09/21/2020 Sex and Gender Information Value Date Recorded Sex Assigned at Female 12/07/2021 9:06 AM CDT Gender Identity Female 05/10/2021 12:15 PM CDT Sexual Orientation Straight 05/10/2021 12 :15 PM CDT Last Filed Vital Signs Vital Sign Reading Time Taken Comments Blood Pressure 155/89 06/01/2023 9:29 AM CDT Pulse 90 06/01/2023 9:29 AM CDT Temperature 36 ??C (96.8 ??F) 06/01/2023 9:29 AM CDT Respiratory Rate 18 05/04/2023 1:06 PM ACTING TEACHER Oxygen Saturation 97% 04/23/2023 11:45 AM ACTING TEACHER Inhaled Oxygen Concentration - - Weight 53 kg (116 lb 13.5 oz) 06/01/2023 9:29 AM CDT Height 149 cm (4' 10.66) 06/01/2023 9:29 AM CDT Body Mass Index 23.87 06/01/2023 9:29 AM CDT Plan of Treatment Upcoming Encounters Date Type Department Care Team (Late st Contact Info) Description 07/09/2023 11:15 AM CDT Clinical Communication Virtual Review in [address] [address] 07/11/2023 1:00 PM CDT Office Visit Department of Neurology in [address] [phone] Danita Prabhakar M.D., Ph.D. [address] [place] [phone] Health Maintenance Due Date Last Done Comments Tobacco Cessation counseling 1941 Zoster Vaccines (2 of 2) 09/11/2018 07/17/2018, 08/27 Office Visit for Blood Pressure Check / Re-check 08/31/2023 06/01/2023 DTaP,Tdap,and Td Vaccines (5 - Td or Tdap) 07/17/2028 07/17/2018, 06/12/2006, 08/10/1999, Additional history exists Pneumococcal vaccine (65+ years) Completed 01/02/2018, 12/21/2010 Influenza Vaccine Completed 11/29/2022, , 12/01/2020, Additional history exists COVID-19 Vaccine Completed 02/15/2023, 12/2021, 09/26/2021, Additional history exists Fall Risk Screen (Annual) Completed 04/27/2023 HPV Vaccines Aged Out No longer eligi ble based on patient's age to complete this topic Medical Devices Implanted Type Area Forensic Examiner Device Identifier Shelf Expiration Date Model / Serial / Lot Breast Imaging Markers Imaging Marker Bilateral: Breast Total Left Knee Replacement Knee Implant Left: Knee Cataract Lenses Ocular Lens Bilateral: Eye Procedures Procedure Name Priority Date/Time Associated Diagnosis Comments COMPREHENSIVE METABOLIC PANEL, S/P Routine 05/29/2023 2:06 PM CDT Thrombocytopenia (HCC) Hypokalemia Anemia Macrocytic CBC WITH DIFFERENTIAL, B Routine 05/29/2023 2:06 PM CDT Thrombocytopenia (HCC) Hypokalemia Anemia Macrocytic PET CT SKULL TO THIGH RAD - Routine (most inpatients and all outpatients) 05/25/2023 9:17 AM CDT Thrombocytopenia (HCC) Hypokalemia Anemia Macrocytic CBC CHEMO - NO ALERTS Routine 05/04/2023 8:27 AM ACTING TEACHER Lymphoplasmacyti c Lymphoma (HCC) CBC CHEMO - NO ALERTS Routine 04/27/2023 8:35 AM ACTING TEACHER Lymphoplasmacyti c Lymphoma (HCC) VRE PCR Routine 04/23/2023 7:53 AM ACTING TEACHER CALCIUM, IONIZED, S/B Routine 04/23/2023 7:28 AM ACTING TEACHER BASIC METABOLIC PANEL, S/P Routine 04/23/2023 7:27 AM ACTING TEACHER CBC NO CALL BACK, REFLEX T/S Routine 04/23/2023 7:27 AM ACTING TEACHER ALBUMIN, S/P Routine 04/22/2023 6:20 AM ACTING TEACHER CYSTATIN C WITH EGFR Routine 04/22/2023 6:20 AM ACTING TEACHER CALCIUM, IONIZED, S/B Routine 04/22/2023 6:20 AM ACTING TEACHER BASIC METABOLIC PANEL, S/P Routine 04/22/2023 6:20 AM ACTING TEACHER CBC NO CALL BACK, REFLEX T/S Routine 04/22/2023 6:20 AM ACTING TEACHER ECG Routine 04/21/2023 10:47 AM ACTING TEACHER CBC NO CALL BACK, REFLEX T/S Routine 04/21/2023 6:39 AM ACTING TEACHER CYSTATIN C WITH EGFR Routine 04/21/2023 6:39 AM ACTING TEACHER BASIC METABOLIC PANEL, S/P Routine 04/21/2023 6:39 AM ACTING TEACHER CALCIUM, IONIZED, S/B Routine 04/20/2023 6:23 AM ACTING TEACHER BASIC METABOLIC PANEL, S/P Routine 04/20/2023 6:23 AM ACTING TEACHER CBC NO CALL BACK, REFLEX T/S Routine 04/19/2023 7:54 AM ACTING TEACHER CALCIUM, IONIZED, S/B Routine 04/19/2023 7:54 AM ACTING TEACHER BASIC METABOLIC PANEL, S/P Routine 04/19/2023 7:54 AM ACTING TEACHER TYPE AND SCREEN Routine 04/18/2023 12:47 AM ACTING TEACHER CALCIUM, IONIZED, S/B Routine 04/18/2023 12:47 AM ACTING TEACHER BASIC METABOLIC PANEL, S/P Routine 04/18/2023 12:47 AM ACTING TEACHER CBC NO CALL BACK, REFLEX T/S Routine 04/18/2023 12:47 AM ACTING TEACHER DX ABDOMEN PORTABLE ANTERIOR POSTERIOR 1 VIEW RAD - Routine (most inpatients and all outpatients) 04/17/2023 11:59 AM ACTING TEACHER CYSTATIN C WITH EGFR Routine 04/17/2023 12:38 AM ACTING TEACHER PHOSPHORUS (INORGANIC), S Routine 04/17/2023 12:38 AM ACTING TEACHER CALCIUM, IONIZED, S/B Routine 04/17/2023 12:38 AM ACTING TEACHER BASIC METABOLIC PANEL, S/P Routine 04/17/2023 12:38 AM ACTING TEACHER CBC NO CALL BACK, REFLEX T/S Routine 04/17/2023 12:38 AM ACTING TEACHER VRE PCR Routine 04/16/2023 8:34 AM ACTING TEACHER CYSTATIN C WITH EGFR Timed 04/16/2023 6:14 AM ACTING TEACHER CBC NO CALL BACK, REFLEX T/S Timed 04/16/2023 6:14 AM ACTING TEACHER BASIC METABOLIC PANEL, S/P Timed 04/16/2023 6:14 AM ACTING TEACHER URIC ACID, S/P Timed 04/16/2023 6:14 AM ACTING TEACHER PHOSPHORUS (INORGANIC), S Timed 04/16/2023 6:14 AM ACTING TEACHER CALCIUM, IONIZED, S/B Timed 04/16/2023 6:14 AM ACTING TEACHER CALCIUM, IONIZED, S/B Timed 04/15/2023 8:02 PM ACTING TEACHER BASIC METABOLIC PANEL, S/P Timed 04/15/2023 8:02 PM ACTING TEACHER URIC ACID, S/P Timed 04/15/2023 8:02 PM ACTING TEACHER PHOSPHORUS (INORGANIC), S Timed 04/15/2023 8:02 PM ACTING TEACHER CALCIUM, IONIZED, S/B Timed 04/15/2023 12:26 PM ACTING TEACHER BASIC METABOLIC PANEL, S/P Timed 04/15/2023 12:26 PM ACTING TEACHER URIC ACID, S/P Timed 04/15/2023 12:26 PM ACTING TEACHER PHOSPHORUS (INORGANIC), S Timed 04/15/2023 12:26 PM ACTING TEACHER CYSTATIN C WITH EGFR Timed 04/15/2023 6:14 AM ACTING TEACHER CBC NO CALL BACK, REFLEX T/S Timed 04/15/2023 6:14 AM ACTING TEACHER BASIC METABOLIC PANEL, S/P Timed 04/15/2023 6:14 AM ACTING TEACHER URIC ACID, S/P Timed 04/15/2023 6:14 AM ACTING TEACHER PHOSPHORUS (INORGANIC), S Timed 04/15/2023 6:14 AM ACTING TEACHER CALCIUM, IONIZED, S/B Timed 04/15/2023 6:14 AM ACTING TEACHER CALCIUM, IONIZED, S/B Timed 04/14/2023 8:16 PM ACTING TEACHER BASIC METABOLIC PANEL, S/P Timed 04/14/2023 8:16 PM ACTING TEACHER URIC ACID, S/P Timed 04/14/2023 8:16 PM ACTING TEACHER PHOSPHORUS (INORGANIC), S Timed 04/14/2023 8:16 PM ACTING TEACHER DIPSTICK, U Routine 04/14/2023 3:34 PM ACTING TEACHER PH, U Routine 04/14/2023 3:34 PM ACTING TEACHER OSMOLALITY, U Routine 04/14/2023 3:34 PM ACTING TEACHER MICROSCOPIC AUTOMATED Routine 04/14/2023 3:34 PM ACTING TEACHER URINALYSIS WITH MICROSCOPIC Routine 04/14/2023 3:34 PM ACTING TEACHER DX CHEST PORTABLE 1 VIEW RAD - Routine (most inpatients and all outpatients) 04/14/2023 2:55 PM ACTING TEACHER BASIC METABOLIC PANEL, S/P Timed 04/14/2023 1:10 PM ACTING TEACHER URIC ACID, S/P Timed 04/14/2023 1:10 PM ACTING TEACHER PHOSPHORUS (INORGANIC), S Timed 04/14/2023 1:10 PM ACTING TEACHER DX ABDOMEN PORTABLE ANTERIOR POSTERIOR 1 VIEW RAD - Semiurgent (Fast; most ED patients; some inpatients) 04/14/2023 11:45 AM ACTING TEACHER HEPATIC FUNCTION PANEL, S Timed 04/14/2023 4:13 AM ACTING TEACHER CBC NO CALL BACK, REFLEX T/S Timed 04/14/2023 4:13 AM ACTING TEACHER CALCIUM, IONIZED, S/B Timed 04/14/2023 4:13 AM ACTING TEACHER BASIC METABOLIC PANEL, S/P Timed 04/14/2023 4:13 AM ACTING TEACHER URIC ACID, S/P Timed 04/14/2023 4:13 AM ACTING TEACHER PHOSPHORUS (INORGANIC), S Timed 04/14/2023 4:13 AM ACTING TEACHER CALCIUM, IONIZED, S/B Timed 04/13/2023 8:26 PM ACTING TEACHER BASIC METABOLIC PANEL, S/P Timed 04/13/2023 8:26 PM ACTING TEACHER URIC ACID, S/P Timed 04/13/2023 8:26 PM ACTING TEACHER PHOSPHORUS (INORGANIC), S Timed 04/13/2023 8:26 PM ACTING TEACHER GLUCOSE POCT, B Routine 04/13/2023 2:21 PM ACTING TEACHER BASIC METABOLIC PANEL, S/P Timed 04/13/2023 12:20 PM ACTING TEACHER URIC ACID, S/P Timed 04/13/2023 12:20 PM ACTING TEACHER PHOSPHORUS (INORGANIC), S Timed 04/13/2023 12:20 PM ACTING TEACHER (TTE) 2D ECHO DOPPLER COLOR Routine 04/13/2023 10:33 AM ACTING TEACHER BASIC METABOLIC PANEL, S/P Timed 04/13/2023 6:07 AM ACTING TEACHER URIC ACID, S/P Timed 04/13/2023 6:07 AM ACTING TEACHER PHOSPHORUS (INORGANIC), S Timed 04/13/2023 6:07 AM ACTING TEACHER CALCIUM, IONIZED, S/B Timed 04/13/2023 6:07 AM ACTING TEACHER ALKALINE PHOSPHATASE, TOT AND ISOENZYMES, S Timed 04/13/2023 6:07 AM ACTING TEACHER CBC NO CALL BACK, REFLEX T/S Timed 04/13/2023 6:07 AM ACTING TEACHER MAGNESIUM, S Timed 04/13/2023 6:07 AM ACTING TEACHER CALCIUM, IONIZED, S/B Timed 04/12/2023 9:57 PM ACTING TEACHER URIC ACID, S/P Timed 04/12/2023 6:03 PM ACTING TEACHER PHOSPHORUS (INORGANIC), S Timed 04/12/2023 6:03 PM ACTING TEACHER BASIC METABOLIC PANEL, S/P Timed 04/12/2023 6:03 PM ACTING TEACHER CALCIUM, IONIZED, S/B Timed 04/12/2023 6:03 PM ACTING TEACHER VRE PCR Routine 04/12/2023 6:03 PM ACTING TEACHER DX ABDOMEN PORTABLE ANTERIOR POSTERIOR 1 VIEW RAD - Routine (most inpatients and all outpatients) 04/12/2023 5:30 PM ACTING TEACHER PH BLOOD GAS STAT 04/12/2023 12:41 PM ACTING TEACHER CALCIUM, IONIZED, S/B STAT 04/12/2023 12:41 PM ACTING TEACHER PHOSPHORUS (INORGANIC), S STAT 04/12/2023 12:41 PM ACTING TEACHER URIC ACID, S/P STAT 04/12/2023 12:41 PM ACTING TEACHER [id number] (BETA-2-M), S STAT 04/12/2023 12:41 PM ACTING TEACHER LACTATE DEHYDROGENASE (LD), S STAT 04/12/2023 12:41 PM ACTING TEACHER [id number] DEHYDROGENASE (G-6-PD), RICH, ERYTHROCYTES, B STAT 04/12/2023 12:41 PM ACTING TEACHER COMPREHENSIVE METABOLIC PANEL, S/P STAT 04/12/2023 12:41 PM ACTING TEACHER CBC NO CALL BACK, REFLEX T/S STAT 04/12/2023 12:41 PM ACTING TEACHER SARS CORONAVIRUS 2, PCR RAPID, V STAT 04/11/2023 3:29 PM ACTING TEACHER HIV-1/-2 AG AND AB SCREEN, PLASMA Routine 04/11/2023 6:49 AM ACTING TEACHER HCV AB W/REFLEX TO HCV PCR, S Routine 04/11/2023 6:49 AM ACTING TEACHER IMMUNOGLOBULINS (IGG, IGA, AND IGM), S Routine 04/10/2023 7:54 AM ACTING TEACHER CBC WITHOUT DIFFERENTIAL, B Routine 04/10/2023 7:54 AM ACTING TEACHER PHOSPHORUS (INORGANIC), S Routine 04/10/2023 7:54 AM ACTING TEACHER MAGNESIUM, S Routine 04/10/2023 7:54 AM ACTING TEACHER BASIC METABOLIC PANEL, S/P Routine 04/10/2023 7:54 AM ACTING TEACHER URIC ACID, S/P Routine 04/10/2023 7:49 AM ACTING TEACHER HEPATIC FUNCTION PANEL, S Routine 04/10/2023 7:49 AM ACTING TEACHER HEPATITIS B SURFACE ANTIGEN Routine 04/10/2023 7:49 AM ACTING TEACHER HBS ANTIBODY, SERUM Routine 04/10/2023 7 :49 AM ACTING TEACHER HBC TOTAL AB, SERUM Routine 04/10/2023 7 :49 AM ACTING TEACHER US KIDNEYS BILATERAL WITH BLADDER RAD - Timed (for specific dates/times) 04/09/2023 5:46 PM ACTING TEACHER [place] FNA BX WO IMG 1ST LESION Routine 04/09/2023 10:03 AM ACTING TEACHER Weakness General PHOSPHORUS (INORGANIC), S Routine 04/09/2023 9:35 AM ACTING TEACHER MAGNESIUM, S Routine 04/09/2023 9:35 AM ACTING TEACHER BASIC METABOLIC PANEL, S/P Routine 04/09/2023 9:35 AM ACTING TEACHER EMG Routine 04/09/2023 6:38 AM ACTING TEACHER SUBCUTANEOUS FAT ASPIRATE Routine 04/09/2023 6:16 AM ACTING TEACHER C. DIFFICILE TOXIN PCR, F Routine 04/08/2023 12:21 PM ACTING TEACHER PHOSPHORUS (INORGANIC), S Timed 04/08/2023 6:23 AM ACTING TEACHER MAGNESIUM, S Timed 04/08/2023 6:23 AM ACTING TEACHER BASIC METABOLIC PANEL, S/P Timed 04/08/2023 6:23 AM ACTING TEACHER VASCULAR ENDOTHELIAL GROWTH FCTR, P Routine 04/08/2023 6:23 AM ACTING TEACHER 1,25-DIHYDROXYVITAMIN D, S Routine 04/08/2023 6:23 AM ACTING TEACHER PHOSPHORUS (INORGANIC), S Timed 04/07/2023 10:06 PM ACTING TEACHER MAGNESIUM, S Timed 04/07/2023 10:06 PM ACTING TEACHER BASIC METABOLIC PANEL, S/P Timed 04/07/2023 10:06 PM ACTING TEACHER PHOSPHORUS (INORGANIC), S Timed 04/07/2023 1:49 PM ACTING TEACHER MAGNESIUM, S Timed 04/07/2023 1:49 PM ACTING TEACHER BASIC METABOLIC PANEL, S/P Timed 04/07/2023 1:49 PM ACTING TEACHER PHOSPHORUS (INORGANIC), S Timed 04/07/2023 6:51 AM ACTING TEACHER MAGNESIUM, S Timed 04/07/2023 6:51 AM ACTING TEACHER BASIC METABOLIC PANEL, S/P Timed 04/07/2023 6:51 AM ACTING TEACHER CBC WITH DIFFERENTIAL, B Routine 04/07/2023 6:51 AM ACTING TEACHER PHOSPHORUS (INORGANIC), S Timed 04/06/2023 10:13 PM ACTING TEACHER MAGNESIUM, S Timed 04/06/2023 10:13 PM ACTING TEACHER BASIC METABOLIC PANEL, S/P Timed 04/06/2023 10:13 PM ACTING TEACHER DX ABDOMEN PORTABLE ANTERIOR POSTERIOR 1 VIEW RAD - Routine (most inpatients and all outpatients) 04/06/2023 3:54 PM ACTING TEACHER ZINC, S Routine 04/06/2023 3:34 PM ACTING TEACHER COPPER, S Routine 04/06/2023 3:34 PM ACTING TEACHER MAGNESIUM, S Routine 04/06/2023 3:34 PM ACTING TEACHER CBC WITH DIFFERENTIAL, B Routine 04/06/2023 3:34 PM ACTING TEACHER BASIC METABOLIC PANEL, S/P Routine 04/06/2023 3:07 PM ACTING TEACHER MR THORACIC SPINE WITHOUT AND WITH IV CONTRAST RAD - Routine (most inpatients and all outpatients) 04/06/2023 2:37 PM ACTING TEACHER PET CT SKULL TO THIGH RAD - Routine (most inpatients and all outpatients) 04/06/2023 1:14 PM ACTING TEACHER [id number] GENE MUTATION ANALYSIS Routine 04/06/2023 12:35 PM ACTING TEACHER WV DX BONE MARROW BX & ASPIR Routine 04/06/2023 9:40 AM ACTING TEACHER Weakness General Hypercalcemia B-CELL LYMPHOMA, SPECIFIED FISH Routine 04/06/2023 9:15 AM ACTING TEACHER DNA/RNA EXTRACT AND HOLD, B Routine 04/06/2023 9:15 AM ACTING TEACHER MYELOID NEOPLASMS, NGS Routine 9:15 AM ACTING TEACHER CHROMOSOMES, HEMATOLOGIC, BM Routine 04/06/2023 9:15 AM ACTING TEACHER MDS BY FLOW CYTOMETRY, BM Routine 04/06/2023 9:15 AM ACTING TEACHER HEMATOPATHOLOGY Routine 04/06/2023 6:11 AM ACTING TEACHER IMMUNOGLOBULINS (IGG, IGA, AND IGM), S Routine 04/05/2023 3:45 PM ACTING TEACHER METHYLMALONIC ACID (MMA), RICH, S Routine 04/05/2023 3:45 PM ACTING TEACHER IMMUNOGLOBULIN FREE LIGHT CHAINS, S Routine 04/05/2023 3:45 PM ACTING TEACHER SYPHILIS IGG W/ REFLEX, EIA, S Routine 04/05/2023 3:45 PM ACTING TEACHER MYELOPATHY, AUTOIMM/PARANEO, SERUM Routine 04/05/2023 3:44 PM ACTING TEACHER CNC MACHINIST DEMYELINATING DISEASE EVALUATION Routine 04/05/2023 3:44 PM ACTING TEACHER FOLATE, S Routine 04/05/2023 3:44 PM ACTING TEACHER LACTATE DEHYDROGENASE (LD), S Routine 04/05/2023 3:44 PM ACTING TEACHER VITAMIN E, S Routine 04/05/2023 3:43 PM ACTING TEACHER THIAMIN (VITAMIN B1), B Routine 04/05/2023 3:43 PM ACTING TEACHER VITAMIN B3 AND METABOLITES, P Routine 04/05/2023 3:42 PM ACTING TEACHER ASCORBIC ACID (VITAMIN C), P Routine 04/05/2023 3:41 PM ACTING TEACHER RIBOFLAVIN (VITAMIN B2), P Routine 04/05/2023 3:41 PM ACTING TEACHER LEUKEMIA/LYMPHOMA PHENOTYPE, B Routine 04/05/2023 3:11 PM ACTING TEACHER EBV DNA DETECT/QUANT, P Routine 04/05/2023 3:10 PM ACTING TEACHER MR CERVICAL SPINE WITHOUT AND WITH IV CONTRAST RAD - Routine (most inpatients and all outpatients) 04/05/2023 1:05 PM ACTING TEACHER MR BRAIN WITHOUT AND WITH IV CONTRAST RAD - Routine (most inpatients and all outpatients) 04/05/2023 1:05 PM ACTING TEACHER BASIC METABOLIC PANEL, S/P Routine 04/05/2023 6:52 AM ACTING TEACHER CBC WITH DIFFERENTIAL, B Routine 04/05/2023 6:52 AM ACTING TEACHER ECG Routine 04/04/2023 1:13 PM ACTING TEACHER PROTHROMBIN TIME (PT), P Routine 04/04/2023 8:29 AM ACTING TEACHER CBC WITH DIFFERENTIAL, B Routine 04/04/2023 8:29 AM ACTING TEACHER ZINC, S Routine 04/04/2023 8:28 AM ACTING TEACHER FOLATE, S Routine 04/04/2023 8:28 AM ACTING TEACHER VITAMIN B12 ASSAY, S Routine 04/04/2023 8:28 AM ACTING TEACHER PARATHYROID HORMONE-RELATED PEPTIDE (PTHRP), P Routine 04/04/2023 8:28 AM ACTING TEACHER BASIC METABOLIC PANEL, S/P Routine 04/04/2023 8:28 AM ACTING TEACHER VITAMIN B6 PROF (PLP AND PA), P Routine 04/04/2023 8:27 AM ACTING TEACHER MAGNESIUM, S Routine 04/04/2023 8:16 AM ACTING TEACHER PHOSPHORUS (INORGANIC), S Routine 04/04/2023 8:[address] HEAD WITHOUT IV CONTRAST RAD - Semiurgent (Fast; most ED patients; some inpatients) 04/03/2023 5:38 PM ACTING TEACHER PATIENT STATUS STAT 04/03/2023 4:44 PM ACTING TEACHER VENOUS BLOOD GAS W/COOX, B STAT 04/03/2023 4:44 PM ACTING TEACHER BASIC METABOLIC PANEL, S/P STAT 04/03/2023 4:43 PM ACTING TEACHER CBC WITH DIFFERENTIAL, B STAT 04/03/2023 4:43 PM ACTING TEACHER US ABDOMEN COMPLETE RAD - Routine (most inpatients and all outpatients) 04/03/2023 10:30 AM ACTING TEACHER PHOSPHORUS (INORGANIC), S Routine 04/03/2023 5:45 AM ACTING TEACHER MAGNESIUM, S Routine 04/03/2023 5:45 AM ACTING TEACHER BASIC METABOLIC PANEL, S/P Routine 04/03/2023 5:45 AM ACTING TEACHER CBC WITH DIFFERENTIAL, B Routine 04/03/2023 5:45 AM ACTING TEACHER M-PROTEIN MASS-FIX, RANDOM, U Routine 04/02/2023 4:19 PM ACTING TEACHER ELECTROPHORESIS, PROTEIN, RANDOM, U Routine 04/02/2023 4:19 PM ACTING TEACHER SPSMA RESULT Routine 04/02/2023 4:14 PM ACTING TEACHER M-PROTEIN ISOTYPE MALDI-TOF MS, S Routine 04/02/2023 4:14 PM ACTING TEACHER PHOSPHORUS (INORGANIC), S Routine 04/02/2023 4:14 PM ACTING TEACHER ELECTROPHORESIS, PROTEIN, S Routine 04/02/2023 4:14 PM ACTING TEACHER RETICULOCYTES, B Routine 04/02/2023 4:14 PM ACTING TEACHER 25-HYDROXYVITAMIN D2 AND D3, S Routine 04/02/2023 4:14 PM ACTING TEACHER MAGNESIUM, S Routine 04/02/2023 4:14 PM ACTING TEACHER COMPREHENSIVE METABOLIC PANEL, S/P Routine 04/02/2023 4:14 PM ACTING TEACHER PARATHYROID HORMONE (PTH), S Routine 04/02/2023 4:14 PM ACTING TEACHER HCV AB SCRN W/REFLEX TO HCV PCR, S Routine 04/02/2023 4:14 PM ACTING TEACHER HIV-1/-2 AG AND AB SCREEN, PLASMA Routine 04/02/2023 4:14 PM ACTING TEACHER HISTOPLASMA/BLASTOMYCE S AG, EIA, S Routine 04/02/2023 4:14 PM ACTING TEACHER ECG Routine 04/02/2023 4:09 PM ACTING TEACHER TROPONIN T, 2H/6H, 5TH GEN, P Timed 04/02/2023 12:19 PM ACTING TEACHER HC URINALYSIS AUTO WO MICRO Routine 04/02/2023 11:14 AM ACTING TEACHER INFLUENZA A, B, RSV, PCR, RAPID, V STAT 04/02/2023 10:56 AM ACTING TEACHER SARS CORONAVIRUS 2, PCR RAPID, V STAT 04/02/2023 10:56 AM ACTING TEACHER DIPSTICK, U STAT 04/02/2023 10:54 AM ACTING TEACHER PH, U STAT 04/02/2023 10:54 AM ACTING TEACHER OSMOLALITY, U STAT 04/02/2023 10:54 AM ACTING TEACHER MICROSCOPIC AUTOMATED STAT 04/02/2023 10:54 AM ACTING TEACHER URINALYSIS WITH MICROSCOPIC STAT 04/02/2023 10:54 AM ACTING TEACHER BACTERIAL CULTURE, AEROBIC + SUSC, URINE STAT 04/02/2023 10:54 AM ACTING TEACHER BACTERIA / RENAE CULTURE, BLOOD STAT 04/02/2023 10:52 AM ACTING TEACHER LACTATE FOR SEPSIS WITH REFLEX STAT 04/02/2023 10:45 AM ACTING TEACHER BACTERIA / RENAE CULTURE, BLOOD STAT 04/02/2023 10:45 AM ACTING TEACHER TROPONIN T, BASELINE, 5TH GEN, P STAT 04/02/2023 10:10 AM ACTING TEACHER THYROID-STIMULATING HORMONE-SENSITIVE (S-TSH) STAT 04/02/2023 10:10 AM ACTING TEACHER BASIC METABOLIC PANEL, S/P STAT 04/02/2023 10:10 AM ACTING TEACHER CBC WITH DIFFERENTIAL, B STAT 04/02/2023 10:10 AM ACTING TEACHER from Last 3 Months Results * (ABNORMAL) CBC with Differential, Blood (05/29/2023 2:06 PM CDT) Only the most recent of8 resultswithin the time period is included. [facility] Hemoglobin 12.2 11.6 - 15.0 g/dL 05/29/2023 3:46 PM CDT CNFL Hematocrit 37.8 35.5 - 44.9 % 05/29/2023 3:46 PM CDT CNFL Erythrocytes 3.72(L) 3.92 - 5.13 x10(12)/L 05/29/2023 3:46 PM CDT CNFL MCV 101.6(H) 78.2 - 97.9 fL 05/29/2023 3:46 PM CDT CNFL RBC Distrib Width 13.7 12.2 - 16.1 % 05/29/2023 3:46 PM CDT CNFL Platelet Count 118(L) 157 - 371 x10(9)/L 05/29/2023 3:46 PM CDT CNFL Leukocytes 4.7 3.4 - 9.6 x10(9)/L 05/29/2023 3:46 PM CDT CNFL Neutrophils 2.47 1.56 - 6.45 x10(9)/L 05/29/2023 3:46 PM CDT CNFL Lymphocytes 1.83 0.95 - 3.07 x10(9)/L 05/29/2023 3:46 PM CDT CNFL Monocytes 0.33 0.26 - 0.81 x10(9)/L 05/29/2023 3:46 PM CDT CNFL Eosinophils 0.05 0.03 - 0.48 x10(9)/L 05/29/2023 3:46 PM CDT CNFL Basophils <0.04 0.01 - 0.08 x10(9)/L 05/29/2023 3:46 PM CDT CNFL Blood (Blood, Venous) 05/29/2023 2:06 PM CDT 05/29/2023 2:55 PM CDT Samir Laureano M.D. LAB BLOOD ADD-ON [facility] [address] [place] [id number], [facility] CNFL [facility] in [address] [address] * Comprehensive Metabolic Panel (05/29/2023 2:06 PM CDT) Only the most recent of3 resultswithin the time period is included. [facility] Potassium, P 5.1 3.6 - 5.2 mmol/L 05/29/2023 3:49 PM CDT CNFL Sodium, P 140 135 - 145 mmol/L 05/29/2023 3:49 PM CDT CNFL Chloride, P 103 98 - 107 mmol/L 05/29/2023 3:49 PM CDT CNFL Bicarbonate, P 29 22 - 29 mmol/L 05/29/2023 3:49 PM CDT CNFL Anion Gap, P 8 7 - 15 05/29/2023 3:49 PM CDT CNFL BUN (Blood Urea Nitrogen), P 13 6 - 21 mg/dL 05/29/2023 3:49 PM CDT CNFL Creatinine 0.77 0.59 - 1.04 mg/dL 05/29/2023 3:49 PM CDT CNFL Estimated GFR (eGFR) 77 >=60 mL/min/BS A 05/29/2023 3:49 PM CDT CNFL Comment: Estimated GFR calculated using the 2020 CKD_EPI creatinine equation. Calcium, Total, P 9.3 8.8 - 10.2 mg/dL 05/29/2023 3:49 PM CDT CNFL Glucose, P 100 70 - 140 mg/dL 05/29/2023 3:49 PM CDT CNFL Protein, Total, P 6.9 6.3 - 7.9 g/dL 05/29/2023 3:49 PM CDT CNFL Albumin, P 4.2 3.5 - 5.0 g/dL 05/29/2023 3:49 PM CDT CNFL Aspartate Aminotransferase (AST), P 24 8 - 43 U/L 05/29/2023 3:49 PM CDT CNFL Alkaline Phosphatase, P 96 35 - 104 U/L 05/29/2023 3:49 PM CDT CNFL Alanine Aminotransferase (ALT), P 18 7 - 45 U/L 05/29/2023 3:49 PM CDT CNFL Bilirubin, Total, P 0.2 0.0 - 1.2 mg/dL 05/29/2023 3:49 PM CDT CNFL Blood (Blood, Venous) 05/29/2023 2:06 PM CDT 05/29/2023 2:58 PM CDT Samir Laureano M.D. LAB BLOOD ADD-ON [facility] [address] [place] [id number], [facility] CNFL [facility] in [address] [address] * PET CT Skull to Thigh FDG (05/25/2023 9:17 AM CDT) Only the most recent of2 resultswithin the time period is included. Anatomical Region Laterality Modality Body, Nuclear Medicine PET R ST LOS, PET ARZ LOS, Nuclear Medicine PET FLA LOS, Nuclear Medicine N/A Positron Emission Tomography (PET), Positron Emission Tomography (PET) Impressions 05/25/2023 3:20 PM CDT Complete metabolic response. No evidence of FDG avid residual or recurrent metastatic disease. Deauville score 1. Narrative 05/25/2023 3:20 PM CDT EXAM: ??PET CT SKULL TO THIGH FDG Serum glucose at time of F-18 FDG injection was 105 mg/dL. Patient followed standard dietary/fasting requirements for this exam. RADIOPHARMACEUTICAL/MEDS: Route: intravenous fludeoxyglucose F 18 injection GROUP HOME (FDG F-18),9.77 millicurie TECHNIQUE: ??F-18 FDG PET/CT scan was performed from the vertex through the upper thighs with low dose, non-contrast, free-breathing CT images for attenuation correction and anatomic localization (AC/AL), with imaging beginning at approximately 60 minutes after radiotracer injection. ? 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 Additional history of breast and non-melanoma skin cancers. Subsequent treatment strategy. The patient reports no recent vaccinations. FINDINGS: ??No FDG avid lymphadenopathy. Normalization of the splenic size and uptake. The spleen now measures 10 mm on coronal views with uptake below hepatic parenchyma. Interval decrease/normalization of the diffuse bone marrow uptake. No FDG avid focal osseous lesions. Degenerative-like uptake in the shoulders and hips. Incidental findings on low-dose unenhanced CT fused images: Minimal bibasilar atelectasis versus scarring. Moderate coronary artery calcifications. Aortic valve and aortic calcifications. Colonic diverticulosis. Hysterectomy. Degenerative change of the spine. Procedure Note Teodora Ko M.D. - 05/25/2023 EXAM: PET CT SKULL TO THIGH FDG Serum glucose at time of F-18 FDG injection was 105 mg/dL. Patientfollowed standard dietary/fasting requirements for this exam. RADIOPHARMACEUTICAL/MEDS: Route: intravenous fludeoxyglucose F 18 injection GROUP HOME (FDG F-18),9.77 millicurie TECHNIQUE: F-18 FDG PET/CT scan was performed from the vertex through theupper thighs with low dose, non-contrast, free-breathing CT images forattenuation correction and anatomic localization (AC/AL), with imagingbeginning at approximately 60 minutes after radiotracer injection. COMPARISON: PET/CT 04/06/2023 INDICATION: Staging lymphoproliferative disorder. 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 Subsequenttreatment strategy. The patient reports no recent vaccinations. FINDINGS: No FDG avid lymphadenopathy. Normalization of the splenic size and uptake. The spleen now measures 10mm on coronal views with uptake below hepatic parenchyma. Interval decrease/normalization of the diffuse bone marrow uptake. No FDGavid focal osseous lesions. Degenerative-like uptake in the shoulders and hips. Incidental findings on low-dose unenhanced CT fused images: Minimalbibasilar atelectasis versus scarring. Moderate coronary arterycalcifications. Aortic valve and aortic calcifications. Colonicdiverticulosis. Hysterectomy. Degenerative change of the spine. IMPRESSION: Complete metabolic response. No evidence of FDG avid residual or recurrentmetastatic disease. Deauville score 1. Samir CHAPA NM PROCEDURES * (ABNORMAL) CBC, Chemotherapy, No Alerts (05/04/2023 8:27 AM ACTING TEACHER) Only the most recent of2 resultswithin the time period is included. Hemoglobin 12.1 11.6 - 15.0 g/dL 05/04/2023 9:04 AM ACTING TEACHER DTL Platelet Count 124(L) 157 - 371 x10(9)/L 05/04/2023 9:04 AM ACTING TEACHER DTL Leukocytes 3.9 3.4 - 9.6 x10(9)/L 05/04/2023 9:04 AM ACTING TEACHER DTL Neutrophils 1.72 1.56 - 6.45 x10(9)/L 05/04/2023 9:04 AM ACTING TEACHER [facility] Blood (Blood, Venous) 05/04/2023 8:27 AM ACTING TEACHER 05/04/2023 8:46 AM ACTING TEACHER Samir Laureano M.D. LAB BLOOD ADD-ON Performing Organization Address [facility] Co de Phone Number [phone] [place] [phone] [place] [address] * VRE PCR (04/23/2023 7:53 AM ACTING TEACHER) Only the most recent of3 resultswithin the time period is included. Specimen Source Swab, Perianal 04/23/2023 10:13 PM ACTING TEACHER DTL VRE PCR Negative Negative 04/23/2023 10:13 PM ACTING TEACHER DTL Comment: ----ADDITIONAL INFORMATION---- This test was developed using an analyte specific reagent. Its performance characteristics were determined by [facility] in a manner consistent with CLIA requirements. This test has not been cleared or approved by the U.S. Food and Drug Administration. Swab (Perianal) 04/23/2023 7 :53 AM ACTING TEACHER 04/23/2023 8:43 AM ACTING TEACHER Santiago Mejía M.D., M.S. LAB MICROBIOLO GY - GENERAL ORDERABLES Performing Organization Address [facility]/ZIP Co de Phone Number [address] [address], [facility] DTL [address] [place] [address] * Calcium, Ionized (04/23/2023 7:28 AM ACTING TEACHER) Only the most recent of17 resultswithin the time period is included. Calcium, Ionized, S 5.01 4.57 - 5.43 mg/dL 04/23/2023 8:07 AM ACTING TEACHER DTL Comment: ----ADDITIONAL INFORMATION---- This test has been modified from the instrumentation and control technician's instructions. Its performance characteristics were determined by [facility] in a manner consistent with CLIA requirements. This test has not been cleared or approved by the U.S. Food and Drug Administration. pH for Ionized Calcium 7.44 7.35 - 7.48 04/23/2023 8:07 AM ACTING TEACHER DTL Blood (Blood, Venous) 04/23/2023 7:28 AM ACTING TEACHER 04/23/2023 7:51 AM ACTING TEACHER Claudette Izaguirre M.D. LAB BLOOD NON ADD -ON [facility] [address] [place] [address], [facility] [address] [place] [address] * (ABNORMAL) CBC no call back, reflex T/S HGB <8 (04/23/2023 7:27 AM ACTING TEACHER) Only the most recent of11 resultswithin the time period is included. Pathologist [facility] Hemoglobin 9.6(L) 11.6 - 15.0 g/dL 04/23/2023 7:58 AM ACTING TEACHER DTL Hematocrit 29.8(L) 35.5 - 44.9 % 04/23/2023 7:58 AM ACTING TEACHER DTL Erythrocytes 2.98(L) 3.92 - 5.13 x10(12)/L 04/23/2023 7:58 AM ACTING TEACHER DTL MCV 100.0(H) 78.2 - 97.9 fL 04/23/2023 7:58 AM ACTING TEACHER DTL RBC Distrib Width 16.5(H) 12.2 - 16.1 % 04/23/2023 7:58 AM ACTING TEACHER DTL Platelet Count 134(L) 157 - 371 x10(9)/L 04/23/2023 7:58 AM ACTING TEACHER DTL Leukocytes 3.1(L) 3.4 - 9.6 x10(9)/L 04/23/2023 7:58 AM ACTING TEACHER DTL Neutrophils 1.09(L) 1.56 - 6.45 x10(9)/L 04/23/2023 7:58 AM ACTING TEACHER PM Lymphocytes 1.72 0.95 - 3.07 x10(9)/L 04/23/2023 7:58 AM ACTING TEACHER DTL Monocytes 0.19(L) 0.26 - 0.81 x10(9)/L 04/23/2023 7:58 AM ACTING TEACHER DTL Eosinophils 0.07 0.03 - 0.48 x10(9)/L 04/23/2023 7:58 AM ACTING TEACHER DTL Basophils <0.03 0.01 - 0.08 x10(9)/L 04/23/2023 7:58 AM ACTING TEACHER DTL Blood (Blood, Venous) 04/23/2023 7:27 AM ACTING TEACHER 04/23/2023 7:43 AM ACTING TEACHER Claudette Izaguirre M.D. LAB BLOOD NON ADD -ON [facility] [address] [place] [address], [facility] [address] [place], [place] [phone] [place] [address] [address] [place] [address] * (ABNORMAL) Basic Metabolic Panel (04/23/2023 7:27 AM ACTING TEACHER) Only the most recent of31 resultswithin the time period is included. [facility] Potassium, S 4.2 3.6 - 5.2 mmol/L 04/23/2023 8:21 AM ACTING TEACHER DTL Sodium, S 140 135 - 145 mmol/L 04/23/2023 8:21 AM ACTING TEACHER DTL Chloride, S 104 98 - 107 mmol/L 04/23/2023 8:21 AM ACTING TEACHER DTL Bicarbonate, S 25 22 - 29 mmol/L 04/23/2023 8:21 AM ACTING TEACHER DTL Anion Gap 11 7 - 15 04/23/2023 8:21 AM ACTING TEACHER DTL BUN (Blood Urea Nitrogen), S 24(H) 6 - 21 mg/dL 04/23/2023 8:21 AM ACTING TEACHER DTL Creatinine 1.05(H) 0.59 - 1.04 mg/dL 04/23/2023 8:21 AM ACTING TEACHER DTL Estimated GFR (eGFR) 53(L) >=60 mL/min/BSA 04/23/2023 8:21 AM ACTING TEACHER DTL Comment: Estimated GFR calculated using the 2020 CKD_EPI creatinine equation. Calcium, Total, S 9.0 8.8 - 10.2 mg/dL 04/23/2023 8:21 AM ACTING TEACHER DTL Glucose, S 101 70 - 140 mg/dL 04/23/2023 8:21 AM ACTING TEACHER DTL Blood (Blood, Venous) 04/23/2023 7:27 AM ACTING TEACHER 04/23/2023 7:51 AM ACTING TEACHER Claudette Izaguirre M.D. LAB BLOOD ADD-ON [facility] [address] [place] [address], [facility] [address] [place] [address] * (ABNORMAL) Cystatin C with Estimated GFR (04/22/2023 6:20 AM ACTING TEACHER) Only the most recent of5 resultswithin the time period is included. eGFR by Cystatin C 27(L) >60 mL/min/BSA 04/22/2023 7:21 AM ACTING TEACHER DTL Comment: Estimated GFR calculated using the CKD-EPI Cystatin C (2012) equation. ----ADDITIONAL INFORMATION---- Cystatin C-based eGFR may differ substantially from creatinine- based eGFR in patients with abnormal muscle mass or acutely changing renal function. ??Please interpret together with relevant clinical features. On 07/22/2020 the cystatin C assay method changed. Cystatin C eGFR results > 50 ml/min/1.73m2 are approximately 10% lower with the new assay. Cystatin C 2.00(H) 0.67 - 1.21 mg/L 04/22/2023 7:21 AM ACTING TEACHER DTL Blood (Blood, Venous) 04/22/2023 6:20 AM ACTING TEACHER 04/22/2023 7:03 AM ACTING TEACHER Claudette Izaguirre M.D. LAB BLOOD ADD-ON Performing Organization Address City/[facility]/ZIP Co de Phone Number [facility] [address] [place] [address] * (ABNORMAL) Albumin (04/22/2023 6:20 AM ACTING TEACHER) Pathologist [facility] Albumin, S 3.4(L) 3.5 - 5.0 g/dL 04/22/2023 7:21 AM ACTING TEACHER DTL Blood (Blood, Venous) 04/22/2023 6:20 AM ACTING TEACHER 04/22/2023 7:03 AM ACTING TEACHER Claudette Izaguirre M.D. LAB BLOOD ADD-ON Performing Organization Address [facility] [place] [address] * ECG 12 Lead (04/21/2023 10:47 AM ACTING TEACHER) Only the most recent of3 resultswithin the time period is included. [facility] Ventricular Rate ECG/Min 81 BPM MUSE WV Interval 146 ms MUSE QRSD Interval 74 ms MUSE QT Interval 356 ms MUSE QTC Interval 413 ms MUSE P [place] 27 degrees MUSE R [place] -17 degrees MUSE T Wave [place] 24 degrees MUSE 04/21/2023 10:4 7 AM ACTING TEACHER 04/23/2023 8:51 AM ACTING TEACHER Impressions MUSE - 04/21/2023 10:53 AM ACTING TEACHER Sinus rhythm Premature ventricular and fusion complexes Low lateral forces Minimal voltage criteria for LVH, may be normal variant Nonspecific ST and T wave abnormality When compared with ECG of 04-APR-2023 13:13, Premature ventricular and fusion complexes are now present Lateral forces have decreased Reviewed by STEPHANIE Cotton Narrative Procedure Note Brijesh Cassidy M.D. - 04/23/2023 IMPRESSION: Sinus rhythm Premature ventricular and fusion complexes Low lateral forces Minimal voltage criteria for LVH, may be normal variant Nonspecific ST and T wave abnormality When compared with ECG of 04-APR-2023 13:13, Premature ventricular and fusion complexes are now present Lateral forces have decreased Reviewed by STEPHANIE Cotton Claudette Izaguirre M.D. ECG ORDERABLES Performing Organization Address City/[facility] Co de Phone Number MUSE NA * Type and Screen (with Reflex Antibody ID) (04/18/2023 12:47 AM ACTING TEACHER) ABORh O Pos Not applicable 04/18/2023 3:00 AM ACTING TEACHER ETRM Antibody Screen Negative Negative 04/18/2023 3:15 AM ACTING TEACHER ETRM Type & Screen Expiration 04/21/2023 23:59 04/18/2023 3:00 AM ACTING TEACHER ETRM Testing Location [facility] DEFAULT 04/18/2023 2:34 AM ACTING TEACHER ETRM Blood 04/18/2023 12:4 7 AM ACTING TEACHER 04/18/2023 2:34 AM ACTING TEACHER Vitor Casas P.A.-C., M.S. LAB BLOOD BANK TEST ORDERABLES Performing Organization Address [facility] de Phone Number [address] [address], [facility] ETRM [address] [address] * DX Abdomen Portable Anterior Posterior 1 View (04/17/2023 11:59 AM ACTING TEACHER) Only the most recent of4 resultswithin the time period is included. Anatomical Region Laterality Modality Abdomen, Abdominal RST LOS, Abdominal ARZ LOS, Abdominal FLA LOS N/A Digital Radiography Impressions 04/17/2023 12:10 PM ACTING TEACHER NG tube tip in distal stomach. Normal bowel gas pattern. Splenomegaly. Surgical clips left axilla. Narrative 04/17/2023 12:10 PM ACTING TEACHER EXAM: ??DX ABDOMEN PORTABLE ANTERIOR POSTERIOR 1 VIEW Procedure Note Eiken, Dave W, M.D. - 04/17/2023 EXAM: DX ABDOMEN PORTABLE ANTERIOR POSTERIOR 1 VIEW IMPRESSION: NG tube tip in distal stomach. Normal bowel gas pattern. Splenomegaly.Surgical clips left axilla. Priyanka Murphy M.D. IMG DIAGNOSTIC IMAGI NG PROCEDURES * Phosphorus Inorganic (04/17/2023 12:38 AM ACTING TEACHER) Only the most recent of23 resultswithin the time period is included. Phosphorus (Inorganic), S 2.8 2.5 - 4.5 mg/dL 04/17/2023 1:22 AM ACTING TEACHER DTL Blood (Blood, Venous) 04/17/2023 12:38 AM ACTING TEACHER 04/17/2023 1:04 AM ACTING TEACHER Sasha Alcala M.D. LAB BLOOD ADD-ON Performing Organization Address City/[facility]/ZIP Co de Phone Number [facility] [address] [place] [address] * Uric Acid (04/16/2023 6:14 AM ACTING TEACHER) Only the most recent of13 resultswithin the time period is included. Uric Acid, S 4.0 2.7 - 6.1 mg/dL 04/16/2023 7:12 AM ACTING TEACHER DTL Blood (Blood, Venous) 04/16/2023 6:14 AM ACTING TEACHER 04/16/2023 6:52 AM ACTING TEACHER Marialuisa Stark P.A.-C. LAB BLOOD ADD- ON Performing Organization Address City/[facility]/ZIP Co de Phone Number [facility] [address] [place] [address] * Dipstick, Urine (04/14/2023 3:34 PM ACTING TEACHER) Only the most recent of2 resultswithin the time period is included. Hemoglobin, QL, U Negative Negative 04/14/2023 4:15 PM ACTING TEACHER DTL Leukocyte Esterase, U Negative Negative 04/14/2023 4:15 PM ACTING TEACHER DTL Nitrite, U Negative Negative 04/14/2023 4:15 PM ACTING TEACHER DTL Ketone, U Negative Negative mg/dL 04/14/2023 4:15 PM ACTING TEACHER DTL Glucose, U Negative Negative mg/dL 04/14/2023 4:15 PM ACTING TEACHER DTL Urine 04/14/2023 3:34 PM ACTING TEACHER 04/14/2023 3:58 PM ACTING TEACHER Sasha Alcala M.D. LAB URINE ORDERAB LES Performing Organization Address City/[facility] Co de Phone Number [facility] [address] [place] [address], [place] [address] * Microscopic Automated (04/14/2023 3:34 PM ACTING TEACHER) Only the most recent of2 resultswithin the time period is included. Pathologist [facility] Microscopy Normal 04/14/2023 4:15 PM ACTING TEACHER DTL RBC None Seen <3 /hpf 04/14/2023 4:15 PM ACTING TEACHER DTL WBC 1-3 /hpf 04/14/2023 4:15 PM ACTING TEACHER DTL Comment: ----REFERENCE VALUE---- <4 ??(Males) <11 (Females) Urine 04/14/2023 3:34 PM ACTING TEACHER 04/14/2023 3:58 PM ACTING TEACHER Sasha Alcala M.D. LAB URINE ORDERAB LES Performing Organization Address City/[facility]/ZIP Co de Phone Number [facility] [address] [place] [address], [place] [address] * pH, Urine (04/14/2023 3:34 PM ACTING TEACHER) Only the most recent of2 resultswithin the time period is included. Pathologist [facility] pH, U 6.8 4.5 - 8.0 04/14/2023 4:3 5 PM ACTING TEACHER DTL Urine 04/14/2023 3:34 PM ACTING TEACHER 04/14/2023 3:58 PM ACTING TEACHER Sasha Alcala M.D. LAB URINE ORDERAB LES Performing Organization Address City/[facility]/[place] [address] * Osmolality, Urine (04/14/2023 3:34 PM ACTING TEACHER) Only the most recent of2 resultswithin the time period is included. Pathologist [facility] Osmolality, U 407 150 - 1150 mOsm/kg 04/14/2023 4:35 PM ACTING TEACHER DTL Urine 04/14/2023 3:34 PM ACTING TEACHER 04/14/2023 3:58 PM ACTING TEACHER Sasha Alcala M.D. LAB URINE ORDERAB LES Performing Organization Address City/[facility] Co de Phone Number [facility] [address] [place] [address], [place] [address] * (ABNORMAL) Urinalysis, with Microscopic: Urine, Catheter (04/14/2023 3:34 PM ACTING TEACHER) Only the most recent of2 resultswithin the time period is included. Source Urine, Urine, Catheter 04/14/2023 3:58 PM ACTING TEACHER DTL Color, U Yellow 04/14/2023 3:58 PM ACTING TEACHER DTL Clarity, U Clear 04/14/2023 3:58 PM ACTING TEACHER DTL Protein, U 16 <26 mg/dL 04/14/2023 4:35 PM ACTING TEACHER DTL Protein/Osmola lity 0.39 <0.42 ratio 04/14/2023 4:35 PM ACTING TEACHER DTL Predicted 24 HR Protein, U 287(H) <229 mg/24 h 04/14/2023 4:35 PM ACTING TEACHER DTL Predicted Range 71-1160 mg/24 h 04/14/2023 4:35 PM ACTING TEACHER DTL Urine (Urine, Catheter) 04/14/2023 3:34 PM ACTING TEACHER 04/14/2023 3:58 PM ACTING TEACHER Sasha Alcala M.D. LAB URINE ORDERAB LES [facility] [address] [place] [address], [facility] DTL [facility] [address] [place] [address] * DX Chest Portable 1 View (04/14/2023 2:55 PM ACTING TEACHER) Anatomical Region Laterality Modality Chest, Thoracic RST LOS, Tho racic ARZ LOS, Thoracic FLA LOS N/A Digital Radiography Impressions 04/14/2023 3:05 PM ACTING TEACHER Since 07/30/2020, interval development of a small left pleural effusion with adjacent atelectasis or consolidation. Probable tiny right pleural effusion. Increased pulmonary vascular congestion. Similar biapical scarring. Prominent cardiac silhouette. Aortic calcification. Feeding tube with tip below the inferior margin of the image. Narrative 04/14/2023 3:05 PM ACTING TEACHER EXAM: ??DX CHEST PORTABLE 1 VIEW Procedure Note Joe Higginbotham M.D. - 04/14/2023 EXAM: DX CHEST PORTABLE 1 VIEW IMPRESSION: Since 07/30/2020, interval development of a small left pleural effusionwith adjacent atelectasis or consolidation. Probable tiny right pleuraleffusion. Increased pulmonary vascular congestion. Similar biapical scarring. Prominent cardiac silhouette. Aorticcalcification. Feeding tube with tip below the inferior margin of theimage. Sasha Alcala M.D. IMG DIAGNOSTIC IM AGING PROCEDURES * (ABNORMAL) Hepatic Function Panel (04/14/2023 4:13 AM ACTING TEACHER) Only the most recent of2 resultswithin the time period is included. Bilirubin, Total, S 0.5 0.0 - 1.2 mg/dL 04/14/2023 5:22 AM ACTING TEACHER DTL Bilirubin, Direct, S 0.3 0.0 - 0.3 mg/dL 04/14/2023 5:22 AM ACTING TEACHER DTL Aspartate Aminotransferase (AST), S 42 8 - 43 U/L 04/14/2023 5:22 AM ACTING TEACHER DTL Alanine Aminotransferase (ALT), S 23 7 - 45 U/L 04/14/2023 5:22 AM ACTING TEACHER DTL Alkaline Phosphatase, S 163(H) 35 - 104 U/L 04/14/2023 5:22 AM ACTING TEACHER DTL Albumin, S 3.0(L) 3.5 - 5.0 g/dL 04/14/2023 5:22 AM ACTING TEACHER DTL Protein, Total, S 5.3(L) 6.3 - 7.9 g/dL 04/14/2023 5:22 AM ACTING TEACHER DTL Blood (Blood, Venous) 04/14/2023 4:13 AM ACTING TEACHER 04/14/2023 5:03 AM ACTING TEACHER Vitor Casas P.A.-C., M.S. LAB BLOOD ADD-ON Performing Organization Address City/[facility]/ZIP Co de Phone Number [facility] [address] [place] [address], [facility] DTL [facility] [address] [place] [address] * Glucose, POCT (04/13/2023 2:21 PM ACTING TEACHER) Glucose, POCT, B 99 70 - 140 mg/dL 04/13/2023 2:23 PM ACTING TEACHER PCDE Site Capillary 04/13/2023 2:23 PM ACTING TEACHER PCDE Last Intake > 4 hours 04/13/2023 2:23 PM ACTING TEACHER PCDE Blood 04/13/2023 2:21 PM ACTING TEACHER 04/13/2023 2:24 PM ACTING TEACHER Unknown Provider LAB POCT ORDERABLES- [facility] [address] [place] [address], [facility] PCDE [facility] [address] [place] [address] * (TTE) 2D ECHO DOPPLER COLOR (04/13/2023 10:33 AM ACTING TEACHER) [facility] Ejection Fraction 62 MC CV EIMS Proximal Ascending Aorta 30 MC CV EIMS LV Mass Index 95 MC CV EIMS LV End-Diastolic Diameter 43 MC CV EIMS LV End-Systolic Diameter 28 MC CV EIMS LV End-Diastolic Volume 120 MC CV EIMS LV End-Systolic Volume 45 MC CV EIMS MV E Velocity 0.8 MC CV EIMS MV A Velocity 1 MC CV EIMS MV E/A 0.8 MC CV EIMS MV e' Velocity Medial 0.08 MC CV EIMS MV e' Velocity Lateral 0.09 MC CV EIMS MV E/e' Medial 10 MC CV EIMS MV E/e' Lateral 8.9 MC CV EIMS Left ventricular stroke volume index 48 MC CV EIMS Cardiac Output 5.88 MC CV EIMS Cardiac Index 3.95 MC CV EIMS LV Global Longitudinal Strain -19 MC CV EIMS LV Interventricular Septal Wall Thickness 10 MC CV EIMS LV Posterior Wall Thickness 10 MC CV EIMS LV Relative Wall Thickness 47 MC CV EIMS TAPSE 19 MC CV EIMS Tricuspid Annular S? 0.1 MC CV EIMS TR Vmax 2.57 MC CV EIMS RA Pressure 10 MC CV EIMS RV Systolic Pressure 36 MC CV EIMS AV mean gradient 4 MC CV EIMS Aortic valve area 2.72 MC CV EIMS Aortic Valve Dimensionless Index 0.78 MC CV EIMS MV mean gradient 2 MC CV EIMS LA Volume Index 32 MC CV EIMS Aortic Valve Systolic Peak Velocity 1.4 MC CV EIMS Anatomical Region Laterality Modality Other 04/13/2023 9:33 AM ACTING TEACHER Impressions 04/13/2023 11:42 AM ACTING TEACHER Echo performed at the patient's bedside at [facility]. There are no previous [facility] echocardiograms available for comparison. Anemia, thyrotoxicosis, or another high output state could contribute to the increased Doppler velocities (Hemoglobin 8.1 g/dL). LEFT VENTRICLE:Normal left ventricular chamber size. Normal left ventricular wall thickness. Calculated 2-D linear left ventricular ejection fraction 62%. Calculated 2-D biplane volumetric left ventricular ejection fraction of 63%. Left ventricular stroke volume index 48 ml/m2. Left ventricular cardiac index 3.95 l/min/m2. No regional wall motion abnormalities. Grade 1/3 left ventricular diastolic dysfunction, consistent with low to normal left ventricular filling pressure. Global averaged left ventricular longitudinal peak systolic strain is normal at -19% (normal = more negative than -18%). RIGHT VENTRICLE:Normal right ventricular chamber size by visual estimate. Normal right ventricular systolic function. Estimated right ventricular systolic pressure 36 mmHg (right atrial pressure of 10 mmHg). ATRIA:Normal left atrial size. Left atrial volume index 32 ml/m2. Normal right atrial size by visual estimate. CARDIAC VALVES:Trileaflet aortic valve. Sclerotic aortic valve. Trivial aortic valve regurgitation. Mildly thickened mitral valve. Mildly calcified mitral annulus. Mitral valve diastolic mean Doppler gradient 2 mmHg. Mild mitral valve regurgitation. Pulmonary valve not well visualized. Normal pulmonary valve systolic velocities. Trivial pulmonary valve regurgitation. Normal tricuspid valve. Trivial tricuspid valve regurgitation. OTHER ECHO FINDINGS:Normal inferior vena cava size with normal inspiratory collapse (>50%). Normal proximal ascending aorta diameter of 30 mm. Ascending aorta not well visualized at the mid level. Abdominal aorta incompletely visualized. No atrial level shunt by color flow imaging. No intracardiac mass or thrombus, but the left atrial appendage cannot be visualized adequately with transthoracic echo to exclude thrombus in this location. No ??pericardial effusion. For the complete report, see the Order-Level Documents. Narrative 04/13/2023 11:42 AM ACTING TEACHER For the complete report, see the Order-Level Documents. Hemodynamics Heart Rate: 80 BPM Blood Pressure: 125 / 62 mmHg ECG: Sinus rhythm Final Impressions 1. Normal left ventricular chamber size, no regional wall motion abnormalities, calculated 2-D linear ejection fraction 62%. 2. Grade 1/3 left ventricular diastolic dysfunction, consistent with low to normal left ventricular filling pressure. 3. Global averaged left ventricular longitudinal peak systolic strain is normal at -19% (normal = more negative than -18%). 4. Normal right ventricular chamber size, normal systolic function, estimated right ventricular systolic pressure 36 mmHg (right atrial pressure of 10 mmHg). 5. Sclerotic aortic valve. 6. No ??pericardial effusion. Procedure Note Jose Daniel El M.D., Ph.D. - 04/13/2023 For the complete report, see the Order-Level Documents. Hemodynamics Heart Rate: 80 BPM Blood Pressure: 125 / 62 mmHg ECG: Sinus rhythm Final Impressions 1. Normal left ventricular chamber size, no regional wall motionabnormalities, calculated 2-D linear ejection fraction 62%. 2. Grade 1/3 left ventricular diastolic dysfunction, consistent with lowto normal left ventricular filling pressure. 3. Global averaged left ventricular longitudinal peak systolic strain isnormal at -19% (normal = more negative than -18%). 4. Normal right ventricular chamber size, normal systolic function,estimated right ventricular systolic pressure 36 mmHg (right atrialpressure of 10 mmHg). 5. Sclerotic aortic valve. 6. No pericardial effusion. Findings Echo performed at the patient's bedside at [facility]. There are no previous [facility] echocardiograms available for comparison. Anemia, thyrotoxicosis,or another high output state could contribute to the increased Dopplervelocities (Hemoglobin 8.1 g/dL). LEFT VENTRICLE:Normal left ventricular chamber size. Normal leftventricular wall thickness. Calculated 2-D linear left ventricularejection fraction 62%. Calculated 2-D biplane volumetric left ventricularejection fraction of 63%. Left ventricular stroke volume index 48 ml/m2.Left ventricular cardiac index 3.95 l/min/m2. No regional wall motionabnormalities. Grade 1/3 left ventricular diastolic dysfunction,consistent with low to normal left ventricular filling pressure. Globalaveraged left ventricular longitudinal peak systolic strain is normal at- 19% (normal = more negative than -18%). RIGHT VENTRICLE:Normal right ventricular chamber size by visual estimate.Normal right ventricular systolic function. Estimated right ventricularsystolic pressure 36 mmHg (right atrial pressure of 10 mmHg). ATRIA:Normal left atrial size. Left atrial volume index 32 ml/m2. Normalright atrial size by visual estimate. CARDIAC VALVES:Trileaflet aortic valve. Sclerotic aortic valve. Trivialaortic valve regurgitation. Mildly thickened mitral valve. Mildlycalcified mitral annulus. Mitral valve diastolic mean Doppler gradient 2mmHg. Mild mitral valve regurgitation. Pulmonary valve not wellvisualized. Normal pulmonary valve systolic velocities. Trivial pulmonaryvalve regurgitation. Normal tricuspid valve. Trivial tricuspid valveregurgitation. OTHER ECHO FINDINGS:Normal inferior vena cava size with normal inspiratorycollapse (>50%). Normal proximal ascending aorta diameter of 30 mm.Ascending aorta not well visualized at the mid level. Abdominal aortaincompletely visualized. No atrial level shunt by color flow imaging. Nointracardiac mass or thrombus, but the left atrial appendage cannot bevisualized adequately with transthoracic echo to exclude thrombus in thislocation. No pericardial effusion. For the complete report, see the Order-Level Documents. Becka Suarez P.A.-C. CV ECHO P ROCEDURES * (ABNORMAL) Alkaline Phosphatase, Total and Isoenzymes (04/13/2023 6:07 AM ACTING TEACHER) Alkaline Phosphatase, S 169(H) 35 - 104 U/L 04/13/2023 7:14 AM ACTING TEACHER DTL Liver 1 % 54.2 27.8 - 76.3 % 04/13/2023 2:08 PM ACTING TEACHER DTL Liver 1 91.6(H) 16.2 - 70.2 IU/L 04/13/2023 2:08 PM ACTING TEACHER DTL Liver 2 % 26.5(H) 0.0 - 8.0 % 04/13/2023 2:08 PM ACTING TEACHER DTL Liver 2 44.8(H) 0.0 - 5.8 IU/L 04/13/2023 2:08 PM ACTING TEACHER DTL Bone % 17.8(L) 19.1 - 67.7 % 04/13/2023 2:08 PM ACTING TEACHER DTL Bone 30.1 12.1 - 42.7 IU/L 04/13/2023 2:08 PM ACTING TEACHER DTL Intestine % 1.5 0.0 - 20.6 % 04/13/2023 2:08 PM ACTING TEACHER DTL Intestine 2.5 0.0 - 11.0 IU/L 04/13/2023 2:08 PM ACTING TEACHER DTL Placental Not Present Not present 04/13/2023 2:08 PM ACTING TEACHER DTL Blood (Blood, Venous) 04/13/2023 6:07 AM ACTING TEACHER 04/13/2023 6:59 AM ACTING TEACHER Narrative [facility] - 04/13/2023 2:08 PM ACTING TEACHER Specimen Information: Specimen ID: [id number] Specimen Type: Blood Specimen Collection Start Date: 04/13/2023 ??6:07 AM Specimen Received Date: 04/13/2023 ??6:59 AM Specimen ID: [id number] Specimen Type: Blood Specimen Collection Start Date: 04/13/2023 ??6:07 AM Specimen Received Date: 04/13/2023 ??7:42 AM Becka Suarez P.A.-C. LAB BLOOD NON ADD-ON Performing Organization Address City/[facility]/ZIP Co de Phone Number [facility] [address] [place] [address], [facility] [address] [place] [address] DT 200 [facility] [address] [place] [address] * Magnesium (04/13/2023 6:07 AM ACTING TEACHER) Only the most recent of12 resultswithin the time period is included. Magnesium, S 2.0 1.7 - 2.3 mg/dL 04/13/2023 7:14 AM ACTING TEACHER DTL Blood (Blood, Venous) 04/13/2023 6:07 AM ACTING TEACHER 04/13/2023 6:59 AM ACTING TEACHER Becka Suarez P.A.-C. LAB BLOOD ADD-ON Performing Organization Address City/[facility] Co de Phone Number [facility] [address] [place] [address] * pH (04/12/2023 12:41 PM ACTING TEACHER) pH 7.42 7.35 - 7.45 pH 04/12/2023 12:49 PM ACTING TEACHER [facility] Blood 04/12/2023 12:4 1 PM ACTING TEACHER 04/12/2023 12:47 PM ACTING TEACHER Becka Suarez P.A.-C. LAB HISTO RICAL ORDERS [facility] [address] [place] [address], [facility] STMA [facility] [address] [place] [address] * Glucose 6 Phosphate Dehydrogenase Enzyme Activity (04/12/2023 12:41 PM ACTING TEACHER) [facility] G6PD Enzyme Activity, B 11.3 8.0 - 11.9 U/g Hb 04/12/2023 4:02 PM ACTING TEACHER DTL Comment: G6PD deficiency can be masked in the setting of reticulocytosis, markedly elevated WBCs or recent transfusion. If any of these are present in the setting of , chronic, or episodic jaundice/anemia, genotyping is recommended. If desired, please order G6PDZ/G6PD Full Gene Sequencing, V. ----ADDITIONAL INFORMATION---- This test was developed and its performance characteristics determined by [facility] in a manner consistent with CLIA requirements. This test has not been cleared or approved by the U.S. Food and Drug Administration. Blood (Blood, Venous) 04/12/2023 12:41 PM ACTING TEACHER 04/12/2023 1:22 PM ACTING TEACHER Becka Suarez P.A.-C. LAB BLOOD ADD-ON [facility] [address] [place] [address], [facility] DTL [facility] [address] [place] [address] * LD (Lactate Dehydrogenase) (04/12/2023 12:41 PM ACTING TEACHER) Only the most recent of2 resultswithin the time period is included. [facility] LD 140 122 - 222 U/L 04/12/2023 1:44 PM ACTING TEACHER DTL Blood (Blood, Venous) 04/12/2023 12:41 PM ACTING TEACHER 04/12/2023 1:28 PM ACTING TEACHER Becka Suarez P.A.-C. LAB BLOOD NON ADD-ON [facility] [address] [place] [id number], [facility] [address] [place] [address] * (ABNORMAL) Edlo-1-Wmaaufogiojvi (Beta-2-M) (04/12/2023 12:41 PM ACTING TEACHER) Pathologist [facility] Kyyb-9-Omvqdef obulin, S 12.10(H) 1.21 - 2.70 mcg/mL 04/12/2023 5:59 PM ACTING TEACHER [facility] Blood (Blood, Venous) 04/12/2023 12:41 PM ACTING TEACHER 04/12/2023 5:00 PM ACTING TEACHER Becka Suarez P.A.-C. LAB BLOOD ADD-ON [facility] [address] [place] [address] [facility] [address] [place] [address] * SARS Coronavirus 2, PCR Rapid Symptomatic (04/11/2023 3:29 PM ACTING TEACHER) Only the most recent of2 resultswithin the time period is included. Pathologist [facility] SARS CoV-2, PCR, Rapid, V Undetected Undetected 04/11/2023 3:58 PM ACTING TEACHER [facility] Comment: ----ADDITIONAL INFORMATION---- This RT-PCR test was performed using the Sherry SARS-CoV-2 and Influenza A/B Reagent assay from [employer], which has received Emergency Use Authorization(EUA) by the U.S. Food and Drug Administration. Fact sheets for this Emergency Use Authorization (EUA) assay can be found at the following links: For Healthcare Providers: https://www.fda.gov/media/634752/download For Patients: https://www.fda.gov/media/004577/download SARS Coronavirus 2, Rapid, Source Swab, Nasopharynx 04/11/2023 3:37 PM ACTING TEACHER [facility] Swab (Nasopharynx) 04/11/2023 3:29 PM ACTING TEACHER 04/11/2023 3:37 PM ACTING TEACHER Syed HedrickS. LAB MICR OBIOLOGY - GENERAL ORDERABLES [facility] [address] [place] [address], [facility] [address] [place] [address] * HIV-1/-2 Ag and Ab Screen, Plasma (04/11/2023 6:49 AM ACTING TEACHER) Only the most recent of2 resultswithin the time period is included. Pathologist [facility] HIV-1/-2 Ag and Ab Screen, P Negative Negative 04/11/2023 10:21 AM ACTING TEACHER [facility] Comment: Negative result does not rule out HIV infection. If exposure to HIV infection occurred <14 days ago, contact the laboratory to request addition of HIV-1/HIV-2 RNA detection, Plasma (HIP12). Blood (Blood, Venous) 04/11/2023 6:49 AM ACTING TEACHER 04/11/2023 9:28 AM ACTING TEACHER Syed HedrickS. LAB MICR OBIOLOGY - BLOOD ORDERABLES Performing Organization Address City/[facility]/ZIP Co de Phone Number [facility] [address] [place] [id number] [place] [address] [place] [address] * HCV Ab w/Reflex to HCV PCR, Serum (04/11/2023 6:49 AM ACTING TEACHER) Pathologist [facility] HCV Ab, S Negative Negative 04/11/2023 10:37 AM ACTING TEACHER [facility] Comment:Qmquvj-go-lbtail rat io is <1.00. Blood (Blood, Peripheral Draw) 04/11/2023 6:49 AM ACTING TEACHER 04/11/2023 9:28 AM ACTING TEACHER Syed HedrickS. LAB MICR OBIOLOGY - BLOOD ORDERABLES [facility] [address] [place] [address] [facility] [address] [place] [address] * (ABNORMAL) CBC without Differential (04/10/2023 7:54 AM ACTING TEACHER) Pathologist [facility] Hemoglobin 9.0(L) 11.6 - 15.0 g/dL 04/10/2023 8:49 AM ACTING TEACHER DTL Hematocrit 27.5(L) 35.5 - 44.9 % 04/10/2023 8:49 AM ACTING TEACHER DTL Erythrocytes 2.81(L) 3.92 - 5.13 x10(12)/L 04/10/2023 8:49 AM ACTING TEACHER DTL MCV 97.9 78.2 - 97.9 fL 04/10/2023 8:49 AM ACTING TEACHER DTL RBC Distrib Width 15.1 12.2 - 16.1 % 04/10/2023 8:49 AM ACTING TEACHER DTL Platelet Count 64(L) 157 - 371 x10(9)/L 04/10/2023 9:29 AM ACTING TEACHER DTL Leukocytes 3.8 3.4 - 9.6 x10(9)/L 04/10/2023 9:29 AM ACTING TEACHER DTL Blood (Blood, Venous) 04/10/2023 7:54 AM ACTING TEACHER 04/10/2023 8:10 AM ACTING TEACHER Syed Palmer LAB BLOO D ADD-ON [facility] [address] [place] [address], [facility] [address] [place] [address] * (ABNORMAL) Immunoglobulins (IgG, IgA, and IgM) (04/10/2023 7:54 AM ACTING TEACHER) Only the most recent of2 resultswithin the time period is included. Pathologist [facility] Immunoglobulin A (IgA), S 360(H) 61 - 356 mg/dL 04/10/2023 1:46 PM ACTING TEACHER SDSC Immunoglobulin M (IgM), S 792(H) 37 - 286 mg/dL 04/10/2023 2:10 PM ACTING TEACHER SDS Immunoglobulin G (IgG), S 632(L) 767 - 1590 mg/dL 04/10/2023 1:46 PM ACTING TEACHER [facility] Blood (Blood, Venous) 04/10/2023 7:54 AM ACTING TEACHER 04/10/2023 1:00 PM ACTING TEACHER Evan Palmer LAB BLOOD ADD- ON Performing Organization Address [facility] Co de Phone Number [place] [phone] [place], [place] [id number] [place] [address] [place] [address] * HBc Total Ab, Serum (04/10/2023 7:49 AM ACTING TEACHER) HBc Total Ab, S Negative Negative 04/10/2023 11:18 PM ACTING TEACHER [facility] Blood (Blood, Peripheral Draw) 04/10/2023 7:49 AM ACTING TEACHER 04/10/2023 7:44 PM ACTING TEACHER Syed Palmer LAB MICR OBIOLOGY - BLOOD ORDERABLES Performing Organization Address [facility] Co de Phone Number [facility] [address] [place], [place] [id number] [place] [address] [place] [address] * HBs Antibody, Serum (04/10/2023 7:49 AM ACTING TEACHER) HBs Antibody, S Negative 04/10/2023 11:19 PM ACTING TEACHER [facility] Comment: Patient is presumed to be not immune to infection with HBV. ----REFERENCE VALUE---- Unvaccinated: Negative Vaccinated: Positive HBs Antibody, Quantitative, S <5.0 mIU/mL 04/10/2023 11:19 PM ACTING TEACHER [facility] Comment: ----REFERENCE VALUE---- Unvaccinated: <5.0 Vaccinated: >=12.0 Blood 04/10/2023 7:49 AM ACTING TEACHER 04/10/2023 7:44 PM ACTING TEACHER Syed Palmer LAB MICR OBIOLOGY - BLOOD ORDERABLES Performing Organization Address City/[facility]/ZIP Co de Phone Number [facility] [facility] [address] [place] [address] [facility] [address] [place] [address] * Hepatitis B Surface Antigen (04/10/2023 7:49 AM ACTING TEACHER) HBs Antigen, S Negative Negative 04/10/2023 11:01 PM ACTING TEACHER [facility] Blood 04/10/2023 7:49 AM ACTING TEACHER 04/10/2023 7:44 PM ACTING TEACHER Syed Palmer LAB [facility] OBIOLOGY - BLOOD ORDERABLES Performing Organization Address City/[facility] Co de Phone Number [facility] [address] [place] [address] [facility] [address] [place] [address] * US Kidneys Bilateral with Bladder (04/09/2023 5:46 PM ACTING TEACHER) Anatomical Region Laterality Modality Abdomen, Renal, Ultrasound R ST LOS, Ultrasound ARZ LOS, Ultrasound FLA LOS Bilateral Ultrasound Impressions 04/10/2023 7:27 AM ACTING TEACHER Stable mild left pelvocaliectasis. No obstructive lesions seen within the kidney and bladder ultrasound. Narrative 04/10/2023 7:27 AM ACTING TEACHER EXAM: US KIDNEYS BILATERAL WITH BLADDER COMPARISON: PET CT 04/06/2023, and abdominal ultrasound 04/03/2023. FINDINGS: Right kidney: 10.6 cm. Cortical thickness: Normal. Parenchymal echogenicity: Normal. Collecting system: No hydronephrosis. Masses: None detected. Left kidney: 9.8 cm. Cortical thickness: Normal. Parenchymal echogenicity: Normal. Collecting system: Mild pelvocaliectasis. Findings not significantly changed since abdominal ultrasound on 04/03/2023, and CT from 04/06/2023. Masses: None detected. Bladder: Normal. Procedure Note Michelle Buenrostro M.D. - 04/10/2023 EXAM: US KIDNEYS BILATERAL WITH BLADDER COMPARISON: PET CT 04/06/2023, and abdominal ultrasound 04/03/2023. FINDINGS: Right kidney: 10.6 cm. Cortical thickness: Normal. Parenchymal echogenicity: Normal. Collecting system: No hydronephrosis. Masses: None detected. Left kidney: 9.8 cm. Cortical thickness: Normal. Parenchymal echogenicity: Normal. Collecting system: Mild pelvocaliectasis. Findings not significantlychanged since abdominal ultrasound on 04/03/2023, and CT from04/06/2023. Masses: None detected. Bladder: Normal. IMPRESSION: Stable mild left pelvocaliectasis. No obstructive lesions seen within thekidney and bladder ultrasound. Edson Nance M.D. IMG US PROCEDURES * [place] FNA BX WO IMG 1ST LESION (04/09/2023 10:03 AM ACTING TEACHER) Narrative Brandon Awad R.N. - 04/09/2023 10:03 AM ACTING TEACHER Brandon Awad R.N. ? 04/09/2023 10:04 AM Fat Aspirate Performed by: Brandon Awad R.N. Authorized by: Ward Venegas M.D. ?? Care team members present 1. Rhoda Zambrano PROCEDURE DETAILS Procedure: ??Fat aspirate Fat aspirate Location: ??Left abdominal wall Needle size (gauge): ??18 # Slides obtained: ??4 Aspirate volume (mL): ??0.5 CONSENT Consent obtained: written (Risks, benefits and alternatives were discussed and a written Informed Consent was obtained. Please see Informed Consent form for further details.) UNIVERSAL PROTOCOL All relevant documentation and testing were reviewed and available. All required blood products, implants, devices and or special equipment were made available as applicable. Pre-procedure verification was conducted and the correct site was marked if required. A fire risk assessment was done as applicable. The procedural time-out to verify correct patient, correct side/site, and procedure was conducted prior to performing the procedure and confirmed in a procedural pause. PRE-PROCEDURE DETAILS Appropriate hand hygiene, gown, cap, mask, protective eyewear, sterile gloves, skin preparation, sterile drape, and strict aseptic technique were utilized as applicable for the procedure.: yes ?? Site preparation: alcohol SEDATION / ANESTHESIA Anesthesia method: local infiltration Local infiltrate type: lidocaine POST-PROCEDURE DETAILS Procedure completed successfully: yes ?? Procedure tolorated: ??Well Post procedure pain scale: ??0/10 Complications: no apparent complications ?? Post-procedure instructions: ??Post-procedure activity instructions provided COMMENTS Lidocaine 1% 1ml given Sq to the Left hip.. Ward Venegas M.D. PROCEDURE/MINOR SURG ICAL ORDERABLES * EMG (04/09/2023 6:38 AM ACTING TEACHER) 04/09/2023 7:00 AM ACTING TEACHER Narrative EMG - 04/09/2023 9:13 AM ACTING TEACHER Table formatting from the original result was not included. 09-Apr-2023 ? Electromyography ? Final Report Study Number: 1 EMG Office Chair Assembler: Quinn Hewitt 127 or [phone] Referred by: WARD VENEGAS ([phone])) Referred for: weakness Referral Code: ?200 ??301 RX: 001 SUMMARY: Prior to starting the procedure, the patient's identity was verified, pertinent available records were reviewed, the nature of the procedure was explained, the appropriate sites of the exam were confirmed directly with the patient, and a pre-procedure pause was performed for final verification of all of the above. ??Nerve conductions of the right upper and lower extremity including tibial and ulnar F-waves show limited abnormalities limited to lower fibular and tibial motor amplitudes with preserved conduction velocities. ??The needle examination of L2 through S1 and C5 through T1 innervated muscles is normal. ??Tremor in the right upper extremity is appreciated. CLINICAL INTERPRETATION: Essentially normal nerve conduction and needle examination for age. ?? There is not clear evidence for a neuropathy or polyradiculopathy to account for the described symptoms. ??Given the normal needle examination the reduced tibial and fibular motor amplitudes are more likely related to local foot arthritic issues. ??A normal study can not exclude intermittent root compression as can occur with spinal stenosis and clinical correlation advised. Brant Hewitt (127 or [phone])/ACV NERVE CONDUCTIONS ??Record Rep ?? Normal ??Normal Distal Normal F-Wave F-Wave Temp Nerve Type Site Stim Side Amp Amp CV CV Lat Lat Lat Est (??C) Fibular Motor EDB ??R 0.7 (> 2.0) 47 (> 41) 3.1 (< 6.6) ?? 33.0 Tibial Motor AH ??R 2.9 (> 4.0) 51 (> 40) 3.0 (< 6.1) 47.0 39.1 33.1 Sural Sensory Ankle ??R NR ?NR ?32.6 Ulnar Motor ADM ??R 4.8 (> 6.0) 55 (> 51) 2.1 (< 3.6) 26.9 26.5 34.5 Median Sensory Dig II ??R 16 (> 15.0) 58 (> 56) 2.7 (< 3.6) ?? 34.0 NEEDLE EMG ??Ins Spont ??MUP ??Recruitment ??Duration ??Amplitude ??Phases ?? Muscle Side Act Fib Fasc Normal Activ Reduced Rapid Long Short High Low % Turns Illiopsoas R NL 0 0 NL ? First dorsal interosseous R NL 0 0 NL ? Comment: Tremor Pronator teres R NL 0 0 NL ? Biceps brachii R NL 0 0 NL ? Deltoid R NL 0 0 NL ? Gluteus corky R NL 0 0 NL ? Vastus medialis R NL 0 0 NL ? Gastrocnemius (medial head) R NL 0 0 NL ? Tibialis anterior R NL 0 0 NL ? Genioglossus R NL 0 0 NL ? Masseter R NL 0 0 NL ? This interpretation has been electronically signed: Quinn Hewitt M.D. at 04/09/2023 9:11:58 AM ACTING TEACHER Procedure Note Quinn Hewitt M.D. - 04/09/2023 09-Apr-2023 Electromyography Final Report Study Number: 1 EMG Office Chair Assembler: Quinn Hewitt. 127 or [phone] Referred by: WARD VENEGAS ([id number])) Referred for: weakness Referral Code: 200 301 RX: 001 SUMMARY: Prior to starting the procedure, the patient's identity wasverified, pertinent available records were reviewed, the nature of the procedure was explained, theappropriate sites of the exam were confirmed directly with the patient, and a pre-procedure pausewas performed for final verification of all of the above. Nerve conductions of the right upperand lower extremity including tibial and ulnar F-waves show limited abnormalities limited tolower fibular and tibial motor amplitudes with preserved conduction velocities. The needleexamination of L2 through S1 and C5 through T1 innervated muscles is normal. Tremor in the right upperextremity is appreciated. CLINICAL INTERPRETATION: Essentially normal nerve conduction and needleexamination for age. There is not clear evidence for a neuropathy or polyradiculopathy toaccount for the described symptoms. Given the normal needle examination the reduced tibial andfibular motor amplitudes are more likely related to local foot arthritic issues. A normal study cannot exclude intermittent root compression as can occur with spinal stenosis and clinicalcorrelation advised. Brant Hewitt (127 or [phone])/ACV NERVE CONDUCTIONS Record Rep Normal Normal Distal Normal F-Wave F-Wave Temp Nerve Type Site Stim Side Amp Amp CV CV Lat Lat Lat Est (??C) Fibular Motor EDB R 0.7 (> 2.0) 47 (> 41) 3.1 (< 6.6) 33.0 Tibial Motor AH R 2.9 (> 4.0) 51 (> 40) 3.0 (< 6.1) 47.0 39.1 33.1 Sural Sensory Ankle R NR NR 32.6 Ulnar Motor ADM R 4.8 (> 6.0) 55 (> 51) 2.1 (< 3.6) 26.9 26.5 34.5 Median Sensory Dig II R 16 (> 15.0) 58 (> 56) 2.7 (< 3.6) 34.0 NEEDLE EMG Ins Spont MUP Recruitment Duration Amplitude Phases Muscle Side Act Fib Fasc Normal Activ Reduced Rapid Long Short High Low %Turns Illiopsoas R NL 0 0 NL First dorsal interosseous R NL 0 0 NL Comment: Tremor Pronator teres R NL 0 0 NL Biceps brachii R NL 0 0 NL Deltoid R NL 0 0 NL Gluteus corky R NL 0 0 NL Vastus medialis R NL 0 0 NL Gastrocnemius (medial head) R NL 0 0 NL Tibialis anterior R NL 0 0 NL Genioglossus R NL 0 0 NL Masseter R NL 0 0 NL This interpretation has been electronically signed: ChristopherJ. Hewitt M.D. at 04/09/2023 9:11:58 AM ACTING TEACHER Ward Venegas M.D. NEUROLOGY ORDERABLES Performing Organization Address [facility] Co de Phone Number [facility] EM[facility] * Subcutaneous Fat Aspirate (04/09/2023 6:16 AM ACTING TEACHER) 04/10/2023 1:54 PM ACTING TEACHER [facility] Report electronically signed by Monisha Ospina M.D. I verify that I have examined all relevant slides/material s for the specimen(s) and rendered or confirmed the diagnosis. 04/10/2023 1:54 PM ACTING TEACHER PM Gross Description The subcutaneous fat aspirate used for diagnostic purposes consists of 0.5 mL fat. 04/10/2023 1:54 PM ACTING TEACHER DHPM Interpretation FINAL DIAGNOSIS Congo red stain, abdominal subcutaneous fat aspirate specimen: Amyloid is absent. 04/10/2023 1:54 PM ACTING TEACHER PM 04/09/2023 6:16 AM ACTING TEACHER 04/09/2023 6:16 AM ACTING TEACHER Ward Venegas M.D. LAB PATHOLOGY/CYTOLO GY ORDERABLES Performing Organization Address City/[facility] Co de Phone Number [facility] [address] [place] [address], [facility] [address] [place] [address] * Clostridioides (Clostridium) Difficile Toxin, Molecular Detection, PCR, Feces (04/08/2023 12:21 PM ACTING TEACHER) Pathologist [facility] C. difficile Toxin, F Negative Negative 04/08/2023 2:53 PM ACTING TEACHER DTL Stool (Stool) 04/08/2023 12: 21 PM ACTING TEACHER 04/08/2023 1:07 PM ACTING TEACHER Edson Nance M.D. LAB MICROBIOLOGY - G ENERAL ORDERABLES Performing Organization Address City/[facility] Co de Phone Number [facility] [address] [place] [address], [facility] [address] [place] [address] * Vascular Endothelial Growth Factor (04/08/2023 6:23 AM ACTING TEACHER) Pathologist [facility] VEGF, P 22.6 <=96.2 pg/mL 04/10/2023 1:59 PM ACTING TEACHER [facility] Comment: ----ADDITIONAL INFORMATION---- This test was developed and its performance characteristics determined by [facility] in a manner consistent with CLIA requirements. This test has not been cleared or approved by the U.S. Food and Drug Administration. Blood (Blood, Venous) 04/08/2023 6:23 AM ACTING TEACHER 04/09/2023 7:22 AM ACTING TEACHER Syed Palmer LAB BLOO D NON ADD-ON Performing Organization Address City/[facility]/ZIP Co de Phone Number [facility] [address] [place] [address] [facility] [address] [place] [address] [place] [address] * 1,25-Dihydroxyvitamin D (04/08/2023 6:23 AM ACTING TEACHER) Pathologist [facility] 1, 25 DIHYDROXYVITAMIN D, S 66 18 - 78 pg/mL 04/10/2023 2:05 PM ACTING TEACHER [facility] Comment: ----ADDITIONAL INFORMATION---- This test was developed and its performance characteristics determined by [facility] in a manner consistent with CLIA requirements. This test has not been cleared or approved by the U.S. Food and Drug Administration. Blood (Blood, Venous) 04/08/2023 6:23 AM ACTING TEACHER 04/09/2023 7:43 AM ACTING TEACHER Syed Palmer LAB BLOO D ADD-ON Performing Organization Address City/[facility] Co de Phone Number [facility] [address] [place] [address] [facility] [address] [place] [address] * Copper (04/06/2023 3:34 PM ACTING TEACHER) Copper, S 97 77 - 206 mcg/dL 04/09/2023 5:59 PM ACTING TEACHER [facility] Comment: ----ADDITIONAL INFORMATION---- This test was developed and its performance characteristics determined by [facility] in a manner consistent with CLIA requirements. This test has not been cleared or approved by the U.S. Food and Drug Administration. Blood (Blood, Venous) 04/06/2023 3:34 PM ACTING TEACHER 04/06/2023 9:42 PM ACTING TEACHER Ward Venegas M.D. LAB BLOOD NON ADD-ON Performing Organization Address City/[facility]/ZIP Co de Phone Number [facility] [address] [place] [address] [facility] [address] [place] [address] [place] [address] * Zinc (04/06/2023 3:34 PM ACTING TEACHER) Only the most recent of2 resultswithin the time period is included. Zinc, S 64 60 - 106 mcg/dL 04/09/2023 5:59 PM ACTING TEACHER [facility] Comment: ----ADDITIONAL INFORMATION---- This test was developed and its performance characteristics determined by [facility] in a manner consistent with CLIA requirements. This test has not been cleared or approved by the U.S. Food and Drug Administration. Blood (Blood, Venous) 04/06/2023 3:34 PM ACTING TEACHER 04/06/2023 9:42 PM ACTING TEACHER Ward Venegas M.D. LAB BLOOD NON ADD-ON [facility] [address] [place] [address] [facility] [address] [place] [address] [place] [address] * MR Thoracic Spine without and with IV Contrast (04/06/2023 2:37 PM ACTING TEACHER) Anatomical Region Laterality Modality Thoracic Spine, Neuroradiolo gy RST LOS, Neuroradiology [facility], Neuroradiology FLA LOS N/A Magnetic Resonance Impressions 04/06/2023 4:20 PM ACTING TEACHER 1. ??No acute findings in the thoracic spine, including fracture, cord signal abnormality, marrow replacing lesion, or suspicious enhancement. 2. ??Moderate thoracic spondylosis without significant spinal canal or neural foraminal narrowing. 3. ??Redemonstrated moderate-advanced degenerative changes at L1-L2, and moderate degenerative changes at T12-L1 as described. Narrative 04/06/2023 4:20 PM ACTING TEACHER EXAM: MR THORACIC SPINE WITHOUT AND WITH IV CONTRAST COMPARISON: Chest radiograph 07/30/2020. Outside lumbar spine MRI 06/27/2021 FINDINGS: There are 12 rib-bearing thoracic vertebral bodies. Approximately 5mm retrolisthesis of L1 relative to L2. Accentuation of the normal thoracic kyphosis due to anterior wedging of several midthoracic vertebral bodies. Vertebral body heights are otherwise well preserved without evidence for an osseous destructive process. Mild Modic type II endplate changes at T8-T9, T12-L1, and L1-L2. Otherwise, no concerning marrow signal abnormality. Normal signal throughout the thoracic spinal cord. The conus medullaris terminates at the level of L1, and is normal in appearance. No abnormal enhancement throughout the thoracic spine. Moderate thoracic spondylosis. Small posterior disc-osteophyte complexes at the T1 through T8 disc spaces minimally indent the ventral thecal sac without causing significant spinal canal narrowing. Slightly more pronounced posterior disc bulges at T11-T12 and T12-L1 (with degenerative endplate changes and osteophytic ridging at T12-L1) also indent the ventral thecal sac without causing significant spinal canal stenosis. A small 7 mm extraforaminal meningeal diverticulum is present on the left at T10-T11. T12-L1 facet arthropathy causes mild right-sided neural foraminal narrowing. The thoracic neural foramina are otherwise widely patent. As seen on the previous outside lumbar spine MRI, more significant spondylosis is present at the L1-L2 intervertebral disc space. This is characterized by grade 1 retrolisthesis of L1 on L2 accompanied by marked degenerative space narrowing, endplate irregularity, and a posterior disc bulge. There is a ventral thecal sac deformity without spinal canal stenosis. Facet arthropathy and right-eccentric osteophytic ridging contribute to moderate right-sided and mild left-sided neural foraminal narrowing. Splenic enlargement is noted on the ventilating engineer localizer images (series 2, images 7- 8). Procedure Note Ezequiel Coleman M.D. - 04/06/2023 EXAM: MR THORACIC SPINE WITHOUT AND WITH IV CONTRAST COMPARISON: Chest radiograph 07/30/2020. Outside lumbar spine MRI06/27/2021 FINDINGS: There are 12 rib-bearing thoracic vertebral bodies.Approximately 5mm retrolisthesis of L1 relative to L2. Accentuation of thenormal thoracic kyphosis due to anterior wedging of several midthoracicvertebral bodies. Vertebral body heights are otherwise well preserved without evidence for an osseous destructiveprocess. Mild Modic type II endplate changes at T8-T9, T12-L1, and L1-L2.Otherwise, no concerning marrow signal abnormality. Normal signalthroughout the thoracic spinal cord. The conus medullaris terminates at the level of L1, and is normal inappearance. No abnormal enhancement throughout the thoracic spine. Moderate thoracic spondylosis. Small posterior disc-osteophyte complexesat the T1 through T8 disc spaces minimally indent the ventral thecal sacwithout causing significant spinal canal narrowing. Slightly morepronounced posterior disc bulges at T11-T12 and T12-L1 (with degenerative endplate changes and osteophyticridging at T12-L1) also indent the ventral thecal sac without causingsignificant spinal canal stenosis. A small 7 mm extraforaminal meningealdiverticulum is present on the left at T10-T11. T12-L1 facet arthropathy causes mild right-sided neural foraminalnarrowing. The thoracic neural foramina are otherwise widely patent. As seen on the previous outside lumbar spine MRI, more significantspondylosis is present at the L1-L2 intervertebral disc space. This ischaracterized by grade 1 retrolisthesis of L1 on L2 accompanied by markeddegenerative space narrowing, endplate irregularity, and a posterior disc bulge. There is a ventral thecal sacdeformity without spinal canal stenosis. Facet arthropathy andright-eccentric osteophytic ridging contribute to moderate right-sided andmild left-sided neural foraminal narrowing. Splenic enlargement is noted on the ventilating engineer localizer images (series 2,images 7- 8). IMPRESSION: 1. No acute findings in the thoracic spine, including fracture, cordsignal abnormality, marrow replacing lesion, or suspicious enhancement. 2. Moderate thoracic spondylosis without significant spinal canal orneural foraminal narrowing. 3. Redemonstrated moderate-advanced degenerative changes at L1-L2, andmoderate degenerative changes at T12-L1 as described. Ward Venegas M.D. [facility] MRI PROCEDURES * MYD88, L265P, Somatic Gene Mutation, DNA Allele-Specific PCR (04/06/2023 12:35 PM ACTING TEACHER) Specimen Type Bone marrow 04/10/2023 11:56 AM ACTING TEACHER DTL Interpretation These results are considered preliminary and require complete integration with the current pathology case [id number] for final interpretation. ??The result should NOT be interpreted in isolation for the purposes of diagnosis or clinical management. Bone marrow, MYD88 L265P Mutation Analysis, Allele-specific PCR: Negative for MYD88 L265P alteration. Comment: The MYD88 L265P abnormality is highly associated (>90%) with the pathologic diagnosis of lymphoplasmacytic lymphoma and the clinical syndrome of Waldenstrom macroglobulinemia (LPL/WM), particularly in the setting of an elevated IgM serum monoclonal paraprotein. The MYD88 L265P mutation is also identified in some diffuse large B-cell lymphomas (DLBCL), with a higher prevalence observed in immune privileged sites (e.g. central nervous system, testis, breast, skin). A negative molecular result makes the specific diagnosis of LPL/WM less likely; however, these results do not necessarily exclude the possibility of lymphoma in this specimen. Clinical, laboratory and pathologic correlation is required for final diagnosis and interpretation of these results. The analytical sensitivity of this assay is approximately 1% mutation detection in a wild type background. Signing Pathologist: Baljinder Daniel M.D. 04/10/2023 11:56 AM ACTING TEACHER DTL Comment: ----ADDITIONAL INFORMATION---- DNA was extracted from the specimen and subjected to allele-specific polymerase chain reaction (PCR) using an allele specific forward primer that distinguishes the presence of the MYD88 L265P mutation. ??The reaction also contains a wild-type forward 5' of the mutation site and a single reverse primer. ??Expected fragment lengths of PCR products are interpreted using capillary electrophoresis. This test was developed and its performance characteristics determined by [facility] in a manner consistent with CLIA requirements. This test has not been cleared or approved by the U.S. Food and Drug Administration. 04/06/2023 12:3 5 PM ACTING TEACHER 04/09/2023 12:52 PM ACTING TEACHER Ghulam Palmer M.D. LAB GEN ETIC TESTING [facility] [address] [place] [address], [facility] DT [address] [facility] [address] [place] [address] * [place] DX BONE MARROW BX & ASPIR (04/06/2023 9:40 AM ACTING TEACHER) Bone Marrow Narrative [facility]ODAL - 04/06/2023 9:40 AM ACTING TEACHER Weston Ren R.N. ? 04/06/2023 ??9:41 AM Biopsy Bone Marrow, Sedated Performed by: Weston Ren R.N. Authorized by: Javier Romero M.D. ?? Care team members present 1. Weston Ren R.N. 2. Rhoda Zambrano PROCEDURE DETAILS Procedure: ??Bone Marrow biopsy and Bone Marrow aspiration Bone marrow biopsy Laterality: ??Right Location of biopsy: ??Posterior iliac crest Patient position: ??Side lying Type of Needle: ??Manual bone marrow biopsy needle Findings: ??Aspirate obtained with spicules noted and slides obtained Bone marrow aspiration Aspirate volume (mL): ??18 CONSENT Consent obtained: written (Risks, benefits and alternatives were discussed and a written Informed Consent was obtained. Please see Informed Consent form for further details.) UNIVERSAL PROTOCOL All relevant documentation and testing were reviewed and available. All required blood products, implants, devices and or special equipment were made available as applicable. Pre-procedure verification was conducted and the correct site was marked if required. A fire risk assessment was done as applicable. The procedural time-out to verify correct patient, correct side/site, and procedure was conducted prior to performing the procedure and confirmed in a procedural pause. PRE-PROCEDURE DETAILS Appropriate hand hygiene, gown, cap, mask, protective eyewear, sterile gloves, skin preparation, sterile drape, and strict aseptic technique were utilized as applicable for the procedure.: yes ?? Site preparation: chlorhexidine SEDATION / ANESTHESIA Anesthesia method: local infiltration Local infiltrate type: lidocaine POST-PROCEDURE DETAILS Procedure completed successfully: yes ?? Complications: no apparent complications ?? Post-procedure instructions: ??Post-procedure activity instructions provided COMMENTS Two attempts/biopsy. Lidocaine 1% 100 mg. Javier Romero M.D. PROCEDURE/MINOR FELIPE GICAL ORDERABLES MMODAL NA * B-cell Lymphoma, Specified FISH (04/06/2023 9:15 AM ACTING TEACHER) Result Summary Normal 04/17/2023 1:51 PM ACTING TEACHER DTL Disclaimer Applicable to Analyte Specific Reagent (ASR) and Laboratory Developed Tests (LDT). This test was developed and its performance characteristics determined by [facility] in a manner consistent with CLIA requirements. It has not been cleared or approved by the U.S. Food and Drug Administration. This FISH test does not rule out other chromosome abnormalities. 04/17/2023 1:51 PM ACTING TEACHER DTL Released By Quiana Hall, Ph.D. 04/17/2023 1:51 PM ACTING TEACHER DTL Result Table ----- Abnormality Name ? Result ?? Abn% ?? Cutoff% ?? -7q32(D7Z1x2,7q32 x1) ? Normal ? <12.0 ? -17p13.1(TP53x1,D 17Z1x2) ? Normal ? <15.0 ? -17(TP53,D17Z1)x1 ? Normal ? <10.0 ? ----- 04/17/2023 1:51 PM ACTING TEACHER DTL Result Interphase FISH is normal for all loci studied. 04/17/2023 1:51 PM ACTING TEACHER DTL Reason for Referral cytopenias 04/17/2023 1:51 PM ACTING TEACHER DTL Probes Requested 7q32 and TP53 04/17 1:51 PM ACTING TEACHER DTL Specimen Bone Marrow 04/17/2023 1:51 PM ACTING TEACHER DTL Method Locus and probes ?[Strategy;#Nucle i;Vendor] ----- 7CEN(D7Z1),7q32(7q 32) ? [COPY#;100;LDT] 17p13(TP53),17CEN( D17Z1) ? [COPY#;100;AM] Probe strategies include: COPY#=region gain and loss. Scoring Method: Manual Probe vendors include: LDT = [facility] Developed AM = [employer] ([place], [place]) 04/17/2023 1:51 PM ACTING TEACHER DTL Interpretation The result is within normal limits for the B-cell lymphoma FISH panel. A normal FISH result does not exclude the presence of lymphoma in the bone marrow. Additional cytogenetic studies are reported separately. This test was ordered in the context of a [facility] pathology consultation/case (#[id number]), and this result should be interpreted within the context of the pathology consultation/repor t. 04/17/2023 1:51 PM ACTING TEACHER DTL Bone Marrow 04/06/2023 9:15 AM ACTING TEACHER 04/06/2023 2:12 PM ACTING TEACHER Ghulam Palmer M.D. LAB GEN ETIC TESTING [facility] [address] D[address] [facility] [address] [place] [address] * Myelodysplastic Syndrome by Flow Cytometry, Bone Marrow (04/06/2023 9:15 AM ACTING TEACHER) Pathologist [facility] MDS Panel Performed 4 3:47 PM ACTING TEACHER DTL Final Diagnosis Report reactivated per laboratory in order to incorporate additional panels. Diagnosis unchanged. These results are considered preliminary and require complete integration with the current pathology case [id number] for final interpretation. ??The result should NOT be interpreted in isolation for the purposes of diagnosis or clinical management. 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 ??The differential diagnosis for further subclassification, based on the immunophenotype, includes marginal zone lymphoma, lymphoplasmacytic lymphoma, or follicular lymphoma. ??Based on the immunophenotype, this is less likely to represent either chronic lymphocytic leukemia/small lymphocytic lymphoma or mantle cell lymphoma. Comment: Correlation of the flow cytometry results with the bone marrow aspirate and biopsy findings, clinical history and other laboratory features is required for a definitive diagnosis. Reviewed by: Mei HedrickS. 4 3:47 PM ACTING TEACHER DTL Comment: REVISED RESULTS ----PREVIOUSLY REPORTED ---- These results are considered preliminary and require complete integration with the current pathology case [id number] for final interpretation. ??The result should NOT be interpreted in isolation for the purposes of diagnosis or clinical management. Bone marrow, flow cytometric immunophenotyping: Involved by a CD5-negative, XC60-xjmthzts B-cell lymphoproliferative disorder, kappa light chain-restricted. ??The differential diagnosis for further subclassification, based on the immunophenotype, includes marginal zone lymphoma, lymphoplasmacytic lymphoma, or follicular lymphoma. ??Based on the immunophenotype, this is less likely to represent either chronic lymphocytic leukemia/small lymphocytic lymphoma or mantle cell lymphoma. Comment: Correlation of the flow cytometry results with the bone marrow aspirate and biopsy findings, clinical history and other laboratory features is required for a definitive diagnosis. Reviewed by: Mei GallowayBAdalidSAdalid, Flagged as: ??(Reported 04/09/2023 11:25) Special Studies %Lymphs: ??39% Results: Blasts: ??Not increased by CD45/side scatter and CD34. Myeloid maturation: HLA-DR/CD13 pattern on blasts: ??Too few blasts for interpretation CD13/CD16 pattern on maturing granulocytes: ??Too few granulocytes for interpretation CD2/CD7/CD56 expression on blasts: ??Too few blasts for interpretation Additional markers tested: CD15, CD33, CD36, CD38, CD64, CD117. B-cells: ??Monotypic kappa Express: ??CD19, CD20, CD22, CD38 (partial), CD200. Do not express: ??CD5, CD10, CD23, CD11c, CD103. Estimated size: ??69% gated lymphoid events; 24% total analyzed events B-cell markers tested: ??Triage panel: CD10, CD19, CD45 and kappa and lambda immunoglobulin light chains. B-cell panel: CD5, CD11c, CD19, CD20, CD22, CD23, CD38, CD45, CD103, CD200 and kappa and lambda immunoglobulin light chains. T-cells/NK-cells: ??Normal phenotype by CD2, CD3, CD4, CD45, CD5, CD7, CD8, CD16, TRBC1, and TCR-gamma/delta. Plasma cells: ??No monotypic; normal expression pattern of CD19, CD38, CD45, CD138, and cytoplasmic kappa and lambda. Quality assessment: ??Specimen received within validated guidelines. 4 3:47 PM ACTING TEACHER DTL Comment: REVISED RESULTS ----PREVIOUSLY REPORTED ---- %Lymphs: ??39% Results: Blasts: ??Not increased by CD45/side scatter and CD34. Myeloid maturation: HLA-DR/CD13 pattern on blasts: ??Too few blasts for interpretation CD13/CD16 pattern on maturing granulocytes: ??Too few granulocytes for interpretation CD2/CD7/CD56 expression on blasts: ??Too few blasts for interpretation Additional markers tested: CD15, CD33, CD36, CD38, CD64, CD117. B-cells: ??Monotypic kappa Express: ??CD19, CD20, CD22, CD38 (partial), CD200. Do not express: ??CD5, CD10, CD23, CD11c, CD103. Estimated size: ??69% gated lymphoid events; 24% total analyzed events B-cell markers tested: ??Triage panel: CD10, CD19, CD45 and kappa and lambda immunoglobulin light chains. B-cell panel: CD5, CD11c, CD19, CD20, CD22, CD23, CD38, CD45, CD103, CD200 and kappa and lambda immunoglobulin light chains. T-cells/NK-cells: ??Normal phenotype by CD2, CD3, CD4, CD45, CD5, CD7, CD8, CD16, TRBC1, and TCR-gamma/delta. Quality assessment: ??Specimen received within validated guidelines., Flagged as: ??(Reported 04/09/2023 11:25) Microscopic Description Consult case. Slide review not performed by flow technologist. 4 3:47 PM ACTING TEACHER DTL Comment: ----ADDITIONAL INFORMATION---- This test was developed using an analyte specific reagent. Its performance characteristics were determined by [facility] in a manner consistent with CLIA requirements. This test has not been cleared or approved by the U.S. Food and Drug Administration. Bone Marrow 04/06/2023 9:15 AM ACTING TEACHER 04/06/2023 1:35 PM ACTING TEACHER Ghulam Palmer M.D. LAB GEN ETIC TESTING Performing Organization Address City/[facility] Co de Phone Number [facility] [address] [place] [address], [facility] DTL 200 [place] [address] * Hematologic Disorders, DNA and RNA Extract and Hold (04/06/2023 9:15 AM ACTING TEACHER) Specimen Type Bone marrow 04/10/2023 9:39 AM ACTING TEACHER DTL DNA/RNA Extract and Hold Result see method 04/10/2023 9:39 AM ACTING TEACHER DTL DNA/RNA Extraction Performed 2023 9:39 AM ACTING TEACHER DTL Comment: ----ADDITIONAL INFORMATION---- DNA and total RNA were extracted from the sample and will be stored cryopreserved for 1 year from the extraction date. ??To request specific molecular test(s) from the [facility]'s test catalog, please contact [facility] at [phone]. Method summary: DNA and RNA were extracted from the received specimen and stored at -80 C. This test was developed and its performance characteristics determined by [facility] in a manner consistent with CLIA requirements. This test has not been cleared or approved by the U.S. Food and Drug Administration. 04/06/2023 9:15 AM ACTING TEACHER 04/06/2023 1:58 PM ACTING TEACHER Ghulam Palmer M.D. LAB GEN ETIC TESTING Performing Organization Address [facility] Co de Phone Number [facility] [address] [place] [address], [facility] DTL [address] [address] * Myeloid Neoplasms, Comprehensive OncoHeme Next-Generation Sequencing (04/06/2023 9:15 AM ACTING TEACHER) Specimen Type Bone marrow 04/20/2023 9:01 AM ACTING TEACHER DTL Indication for Test cytopenia 04/20/2023 9:01 AM ACTING TEACHER DTL NGSHM Result See Interpretation 03/30 9:01 AM ACTING TEACHER DTL Pathogenic Mutations Detected 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 See below for Variants of Unknown Significance and Additional Notes. Please see the section of Panel Gene List below for the complete list of genes tested. 04/20/2023 9:01 AM ACTING TEACHER DTL Clinical Trials Information regarding possible clinical trials for this patient can be found at the following sites: 1). ClinicalTrials.gov: http://clinicaltrial s.gov/ct2/search/adv anced 2). [facility]: http://www.[place].[facility]/ research/clinical-tr ials 3). National Cancer [place]: http://www.cancer.go v/clinicaltrials/[facility] 4). The Leukemia & Lymphoma Society's Clinical Trial Support Center https://www.hematolo gy.org/education/cli nicians/clinical-tri vn-tpqkxzh-rmjrly 04/20/2023 9:01 AM ACTING TEACHER DTL Variants of Unknown Significance (VUS) None The VUS variants listed here (with approximate variant allele %) are not sufficiently characterized in the current literature and are therefore of uncertain clinical significance at this time. They are reported here for future reference in the event they become clinically significant in the light of new scientific data. 04/20/2023 9:01 AM ACTING TEACHER DTL Additional Information None 04/20/2023 9:01 AM ACTING TEACHER DTL Method A portion of the testing process was performed at [facility] site [id number]. DNA is extracted from peripheral blood or bone marrow specimens. Library preparation for Next Generation Sequencing (NGS) is performed followed by probe hybridization and capture. Sequencing of the final sample library is performed on a NGS instrument. Following bioinformatic processing of the sequencing data, the sequencing results are interpreted to provide a final clinical report. Genomic alterations are called according to human genome reference build GRCh37 (hg19). Performance characteristics of NGS panel: Single base substitutions: accuracy >99%; reproducibility 100% (intra- and interassay); sensitivity 2-4% variant allele fraction with a minimum depth of coverage of 500X. Small insertion/deletion events (up to 500 bp): accuracy >99%; reproducibility 100% (intra- and interassay); sensitivity 2-4.99% variant allele fraction with a minimum depth of coverage of 500X. Larger single gene insertion/deletion events with sizes between > or = 501 bp and < or = 5 kb with a variant allele fraction > or = 5% and minimum depth of coverage of 500X* will be reported. Variants involving multiple genes or single gene events > or = 1 kb with variant allele fractions between 2-5% will not be reported. Events > or = 5 kb with a variant allele fraction > or = 5% within a single gene may be identified and if present, general information on gene, chromosome, and event type will be provided in the Additional Notes section, with suggestion for confirmatory testing. This test was developed and its performance characteristics determined by [facility] in a manner consistent with CLIA requirements. This test has not been cleared or approved by the U.S. Food and Drug Administration. *Some genetic or genomic alterations such as very large insertion/deletion events, copy number alterations (INDUCTION BRAZER) and gene translocation events are not detected by this assay. 04/20/2023 9:01 AM ACTING TEACHER DTL Disclaimer CLINICAL DISCLAIMER The finding of a genetic alteration does not necessarily indicate the presence of a myeloid neoplasm. Some apparent mutations classified as VUS may represent very low population frequency polymorphisms. Hematopoietic cells in some individuals may have age-related genetic alterations associated with myeloid neoplasms in the absence of a hematologic malignancy (clonal hematopoiesis of indeterminate potential, CHIP, also known as age-related clonal hematopoiesis, ARCH). In addition, patients with unexplained cytopenias may also harbor similar myeloid neoplasm-associated gene mutations (clonal cytopenias of uncertain significance, CCUS) [PMIDs: [id number], [id number], [id number], and [id number]]. Distinction between CHIP or CCUS and a myeloid malignancy requires correlation with clinical, pathologic, and other laboratory findings. Prior treatment for hematologic malignancy could affect the results obtained in this assay. In particular, prior allogeneic hematopoietic stem cell transplant (HSCT) may cause difficulties in resolving somatic or polymorphic alterations, or in assigning variant calls correctly to donor and recipient fractions, if pertinent clinical or laboratory information (e.g. chimerism engraftment status) is not provided. This assay does not distinguish between somatic and germline alterations in analyzed gene regions, particularly with VAF near 50% or 100%. If nucleotide alterations in genes associated with germline mutation syndromes are present and there is also a strong clinical suspicion or family history of malignant disease predisposition, additional genetic testing and appropriate counseling may be indicated. This report interpretation is based on current medical and scientific literature, but clinical significance may not be completely established for all reported target gene abnormalities identified. Correlation with clinical, histopathologic and additional laboratory findings is required for final interpretation of these results. The final interpretation of results for clinical management of the patient is the responsibility of the managing physician. TECHNICAL DISCLAIMER The depth of sequencing coverage may be variable for some target regions, but assay performance below the minimum acceptable criteria, or for failed regions are noted. Analysis of rare (low allele frequency) polymorphisms may be problematic in some cases. A low tumor cell percentage in the sample may affect the true mutation VAF and/or sensitivity. Suboptimal-performin g regions (i.e. less than the expected minimum depth of coverage) may affect analytic sensitivity for detecting lower level mutations. This is a qualitative test. The variant read fractions are provided for information only and represent a relative proportion of mutated alleles, but do not indicate a measure of analytical sensitivity for the given genes; assay sensitivity is as stated in the method summary. Some genetic or genomic alterations, such as very large insertion/deletion events, copy number alterations (INDUCTION BRAZER) and gene translocation events are not detected by this assay. 04/20/2023 9:01 AM [facility] DT OncoHeme Panel Gene list [id number] (NM_014915.2) 5'UTR, start at c.-172, exons 1-4, ASXL1 (NM_015338.5) exons 10-13, BCOR (NM_001123385.1) exons 4-15, BCORL1 (NM_001184772.2) exons 1-13, BRAF (NM_004333.4), exons 11 and 15, CALR (NM_004343.3) exon 9, CBL (NM_005188.3) intron 7 last 100bp before start of exon 8, exon 8, intron 8, and exon 9, CEBPA (NM_004364.4) exon 1, CSF3R (NM_000760.3) exons 4, 13-14 and 17, DDX41 (NM_016222.2) exons 1-17, DNMT3A (NM_022552.4) exons 8-23, ELANE (NM_001972.2) exons 1-5, ETNK1 (NM_018638.4) exons 2-5, ETV6 (NM_001987.4) exons 3-8, EZH2 (NM_004456.4) exons 2-20, FLT3 (NM_004119.2) exons 14-20 and intron 14, GATA1 (NM_002049.3) exons 2 and 4, start at c.-19-30 before exon 2, GATA2 (NM_032638.4) exons 1-6, intron 4, c.1017+1 - 1017+870, IDH1 (NM_005896.3) exons 4, 6-8, IDH2 (NM_002168.3) exons 3-4, 6-8, JAK2 (NM_004972.3) exons 12-20, KDM6A (UTX) (NM_021140.3) exons 1-29, KIT (NM_000222.2) exons 8-11 and 17, KRAS (NM_033360.3) exons 2-4, MPL (NM_005373.2) exons 1-12, NF1 (NM_001042492.2), exons 1-58, NPM1 exons 9-11, intron 10 start 3 bp before exon 11, NRAS (NM_002524.4) exons 2-4, PHF6 (NM_001015877.1) exons 2-10, PPM1D (NM_003620.3) exons 1-6, PTPN11 (NM_002834.3) exons 3-4 and 12-13, RAD21 (NM_006265.2) exons 1-2, 4-7, 9-11, 13-14, intron 9 start 3 bp before exon 10, RUNX1 (NM_001754.4) exons 1-9, intron 7 start 13 bp before exon 8, SETBP1 (NM_015559.2) partial exon 4; amino acids 400 - 950, SH2B3 (LNK) (NM_005475.2) exon 2-8, SF3B1 (NM_012433.2) exons 13-16, SMC3 (NM_005445.3) exons 7-8, 13, 17, 19, 21, and 29, SRSF2 (NM_003016.4) exons 1-2, STAG2 (NM_001042750.1) exons 4-34, exons 12 and 17 start at -3 in preceding introns, STAT3 (NM_139276.2), exons 2-24, TERT (NM_198253.2) exons 2-16, TET2 (NM_001127208.2) exons 3-11, TP53 (NM_000546.4) exons 4-11, U2AF1 (NM_001025203.1) exons 2, 6, and 8, UBA1 (NM_003334.3) exons 2-26, WT1 (NM_024426.2) exons 1-10, and ZRSR2 (NM_005089.3) exons 1-11. Unless otherwise noted, intronic coverage surrounding exons is +/-10 bp. For some genes, the transcript IDs used in this analysis may differ from those present in cancer mutation databases or other similar sources. Variants will be reported out using HGVS nomenclature per the documentation version available at varnomen.hgvs.org at the time of the report. 04/20/2023 9:01 AM ACTING TEACHER DTL Released by Signing Pathologist: Baljinder Daniel M.D. 04/20/2023 9:01 AM ACTING TEACHER DTL Interpretation These results are considered preliminary and require complete integration with the current pathology case [id number] for final interpretation. ??The result should NOT be interpreted in isolation for the purposes of diagnosis or clinical management. 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 Mutation effect: ??The missense p.Ssm604Bgv (R882H) mutation is frequently identified in hematological malignancies. R882 mutations are associated with tumorigenesis through disruption of normal DNA methylation processes. They demonstrate decreased methyltransferase activity and increased cellular proliferation in vitro (Angel et al., 2011, 15000341; Mora et al., 2013, 09503231). Disease associations: Approximately 19% of individuals with acute myeloid leukemia (AML) have a somatic mutation in the DNMT3A gene (http://cancer.[facility].ac.uk/cosmic). The presence of DNMT3A mutations, particularly mutations at codon 882, have been reported to be a poor prognostic factor in AML (Angel et al., 2011, 95366879; Cronin et al., 2012, 10375858; Kalyna et al., 2012, 55359768; Shivarov et al., 2013, 63008393). However, other studies have not found DNMT3A mutation status to have significant impact on survival outcome (Vasiliyer et al., 2013, 39864355; Jink et al., 2013, 32311827). Approximately 7-13% of individuals with myelodysplastic syndrome (MDS), myeloproliferative neoplasm (MPN) or MDS/MPN have a somatic mutation in the DNMT3A gene (http://cancer.[facility].ac.uk.cosmic). Some research suggests that the presence of DNMT3A mutations is a poor prognostic factor in MDS (Nahed et al., 2014, 15497642; Colni et al., 2011, 31138746), whereas other studies have not found DNMT3A mutation status to be significantly associated with prognosis in MDS (Roller et al., 2013, 88851787). The presence of DNMT3A mutations shows no clear impact on survival outcome in primary myelofibrosis or chronic myelomonocytic leukemia patients (Kenneth et al., 2013, 96390195; Theodore et al., 2014, 03125903). NOTE: Detection of a genetic alteration in a single gene (e.g. commonly, but not limited to DNMT3A, ASXL1, TET2, SF3B1, TP53, and others), usually as solitary abnormality, can also be seen with increasing age in individuals without a myeloid neoplasm, representing a clonal hematopoiesis of indeterminate potential (CHIP); this finding has been associated with an increased risk of developing a subsequent hematologic malignancy. In patients with unexplained cytopenia(s) despite adequate clinical evaluation, this finding may be consistent with clonal cytopenia(s) of undetermined significance (CCUS) (Sheila Pérez et al., 2017, [id number]). Clinical and pathologic correlation is suggested in this setting. Therapeutic implications: DNA methyltransferase inhibitors such as FDA-approved hypomethylating agents azacytidine and decitabine have shown therapeutic benefits in some MDS and AML patients. Although their effects on inactivating/damagin g DNMT3A mutations are currently elusive, therapy responses have been reported in some MDS and AML patients with DNMT3A mutations (Amita et al., 2014, 08201005; Checo et al., 2014, 77809748). In AML patients younger than 60 years of age, DNMT3A mutations predicted an improved outcome with high-dose induction therapy (Catalan et al., 2012, 99518385). 04/20/2023 9:01 AM ACTING TEACHER DTL 04/06/2023 9:15 AM ACTING TEACHER 04/06/2023 1:58 PM ACTING TEACHER Ghulam Palmer M.D. LAB GEN ETIC TESTING Performing Organization Address City/State/[facility] Co de Phone Number [facility] [address] [place] [address], [facility] DTL 200 [facility] [address] [place] [address] * Chromosome Analysis, Hematologic Disorders, Bone Marrow (04/06/2023 9:15 AM ACTING TEACHER) Pathologist [facility] Result Summary Normal 04/13/2023 9:49 AM ACTING TEACHER DTL Karyotype 46,XX[20] 04/13/2023 9:49 AM ACTING TEACHER DTL Reason for referral cytopenias 04/13/2023 9:49 AM ACTING TEACHER DTL Specimen Bone Marrow 04/13/2023 9:49 AM ACTING TEACHER DTL Method Culture without mitogens 04/13/2023 9:49 AM ACTING TEACHER DTL Banding Method Band Resolution: <400 Stain Name Cells ? Cells Counted Karyogr ams Prepared ? Analyzed ? GTL ? 20 ? 0 ? 2 ? Total ? 20 ? 0 ? 2 ? Ng to Stain Name: GTL=G-banding; QFQ=Q-banding; DAPI=DAPI-stain ing; CBL=C-banding; AGNOR=Silver-st aining; NON=Non-banded The sum of Cells Analyzed and Cells Counted equals the total cells examined. 04/13/2023 9:49 AM ACTING TEACHER DTL Additional Information A portion of the testing process was performed at [facility] site [id number] and [id number]. 04/13/2023 9:49 AM ACTING TEACHER DTL Released by Brandt Roberts M.D. 04/13/2023 9:49 AM ACTING TEACHER DTL Interpretation No clonal abnormality was apparent. Additional cytogenetic studies are reported separately. This test was ordered in the context of a [facility] pathology consultation/ca se (#[id number]), and this result should be interpreted within the context of the pathology consultation/re port. 04/13/2023 9:49 AM ACTING TEACHER DTL Bone Marrow 04/06/2023 9:15 AM ACTING TEACHER 04/06/2023 2:12 PM ACTING TEACHER Ghulam Palmer M.D. LAB GEN ETIC TESTING [facility] [address] [place] [address], [place] DTL [address] [place] [address] * Hematopathology (04/06/2023 6:11 AM [facility]) 04/10/2023 10:34 AM [facility] Report electronically signed by Mei Mccarthy. I verify that I have examined all relevant slides/materials for the specimen(s) and rendered or confirmed the diagnosis. 04/10/2023 10:34 AM [facility] Gross Description B: Core biopsy specimens were received in B5 and were subsequently placed in formalin. Received in formalin labeled with the patient's name, medical record number, and bone marrow biopsy are three holt bone marrow cores and two fragments, measuring 0.3 cm in average diameter and 4.6 cm in aggregate length. Specimens are submitted en toto in cassette B1. The specimen was decalcified prior to processing. ??Grossed by CARLOS ALBERTO. C: Received in formalin labeled with the patient's name, medical record number, and bone marrow clot is a 1.8 x 1.0 x 0.5 cm aggregateof dark red bone marrow clot material. The specimen is submitted en toto in cassette C1. Grossed by CARLOS ALBERTO. 04/10/2023 10:34 AM [facility] Disclaimer This test was developed using an analyte specific reagent. Its performance characteristics were determined by [facility] in a manner consistent with CLIA requirements. This test has not been cleared or approved by the U.S. Food and Drug Administration. Test results for (IHC or QUANG) testing are valid for specimens fixed between 6 and 72 hours. ??Delay to fixation, under fixation or over fixation fall outside of guidelines and may affect these results. 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 2645G>A; p.[id number] (10%) No other pathogenic mutations were detected in the other genes tested on the panel at the reportable limit of assay detection. ??See full report for details. ??Please see the section of Panel Gene List in the full report for the complete list of genes tested. Variants of Uncertain Significance: None The VUS variants listed here (with approximate variant allele %) are not sufficiently characterized in the current literature and are therefore of uncertain clinical significance at this time. ??They are reported here for future reference in the event they become clinically significant in the light of new scientific data. Molecular Hematopathology studies interpreted by Baljinder Daniel M.D. Signed by Mei HedrickSAdalid 04/23/2023 11:47 AM ADDENDUM FISH analysis for B-cell lymphoma, specified, bone marrow ([id number]; 04/06/2023): The result is within normal limits for the B-cell lymphoma FISH panel. See cytogenetic report for complete details. Signed by Megan Osullivan M.D. 04/18/2023 12:46 PM ADDENDUM Cytogenetic analysis, bone marrow ([id number], 04/06/2023): 46,XX[20] No clonal abnormality was apparent. See cytogenetics report for complete details. Signed by Megan Osullivan M.D. 04/16/2023 2:53 PM ADDENDUM Molecular analysis for MYD88 L265P Mutation Analysis, Allele-specific PCR, bone marrow ([id number]; 04/06/2023): Negative for MYD88 L265P alteration. See molecular report for complete details. Molecular Hematopathology studies interpreted by Baljinder Daniel M.D. Signed by Mei HedrickSAdalid 04/14/2023 5:08 PM 04/23/2023 11:47 AM [facility] Comment:REVISED RESULTS Interpretation FINAL DIAGNOSIS Peripheral blood, bone marrow aspirate and biopsy, iliac crest: 1. 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 See comment. 2. ??No morphologic features of a myelodysplastic syndrome, a myeloproliferative neoplasm, or other primary malignant myeloid neoplasms. ??Cytogenetic and molecular correlation pending. 3. ??Hypercellular bone marrow with slight winchester hypoplasia and morphologically normal trilineage hematopoiesis. 4. ??No evidence of metastases. 5. ??Congo red negative for amyloid on bone marrow biopsy. 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 Other diagnostic considerations include marginal zone lymphoma or a splenic based neoplasm. Correlate with clinical history and pending cytogenetic and molecular studies. MICROSCOPIC DESCRIPTION Peripheral Blood: CBC - ??04/05/2023 6:52:00 AM HGB 9.3 g/dL; RBC 2.87 x10(12)/L; MCV 94.1 fL; RDW 14.4 %; WBC 3.0 x10(9)/L; PLT 61 x10(9)/L Cell ? % of Total Cells ? NEUTROPHILS ? 45 ? LYMPHOCYTES ? 43 ? MONOCYTES ? 11 ? EOSINOPHILS ? 0 ? BASOPHILS ? 0 ? METAMYELOCYTES ? 0 ? MYELOCYTES ? 1 ? PROMYELOCYTES ? 0 ? BLASTS ? 0 ? OTHER CELLS ? 0 ? NRBC ? 0 ? Total Cells: 100 ? Peripheral Smear: ??Pancytopenia. ??Slight neutropenia. Lymphocytes are small in size. Bone Marrow Aspirate/Touch Imprint: Aspirate quality: Cellular. Biopsy quality: Adequate. M:E ratio: Normal. Cellularity: ??Hypercellular, 70%. Erythroid precursors: ??Slightly decreased quantity. Normal morphology. Myeloid precursors: ??Slightly decreased quantity. Normal morphology. Blasts not increased. Megakaryocytes: ??Slightly decreased quantity. Normal morphology and distribution. Lymphocytes: ??Abnormal round-angulated small lymphocytic infiltrate, in an interstitial, nodular and para trabecular pattern (approximately 70% of bone marrow cellularity). Plasma cells: Not increased. Cytology: Unremarkable. Distribution: Unremarkable. ANCILLARY STUDIES Iron stain, bone marrow aspirate: ??Increased storage iron. No ring sideroblasts seen. Immunohistochemical studies, bone marrow biopsy, antibodies to CD3, CD8, CD20, CD138, AE1/AE3, granzyme B, mammaglobin, TIA-1: ??The abnormal SE55-vcnocdeh B lymphocytes are associated with ML600-fyjgghsz plasma cells in a background of CD3-positive T lymphocytes. ??There is a slight increase in cytotoxic CD8, TIA and granzyme B-positive T lymphocytes in the lymphoid aggregates. ??Mammaglobin and AE1 AE3 are negative. Congo red, bone marrow biopsy: ??Negative for amyloid. Flow cytometric immunophenotyping, bone marrow: %Lymphs: ??39% Results: Blasts: ??Not increased by CD45/side scatter and CD34. Myeloid maturation: HLA-DR/CD13 pattern on blasts: ??Too few blasts for interpretation CD13/CD16 pattern on maturing granulocytes: ??Too few granulocytes for interpretation CD2/CD7/CD56 expression on blasts: ??Too few blasts for interpretation Additional markers tested: CD15, CD33, CD36, CD38, CD64, CD117. B-cells: ??Monotypic kappa Express: ??CD19, CD20, CD22, CD38 (partial), CD200. Do not express: ??CD5, CD10, CD23, CD11c, CD103. Estimated size: ??69% gated lymphoid events; 24% total analyzed events B-cell markers tested: ??Triage panel: CD10, CD19, CD45 and kappa and lambda immunoglobulin light chains. B-cell panel: CD5, CD11c, CD19, CD20, CD22, CD23, CD38, CD45, CD103, CD200 and kappa and lambda immunoglobulin light chains. T-cells/NK-cells: ??Normal phenotype by CD2, CD3, CD4, CD45, CD5, CD7, CD8, CD16, TRBC1, and TCR-gamma/delta. Plasma cells: ??No monotypic; normal expression pattern of CD19, CD38, CD45, CD138, and cytoplasmic kappa and lambda. Quality assessment: ??Specimen received within validated guidelines. Both flow cytometry and immunohistochemistry (IHC) have been performed in the current case because they are medically necessary to arrive at the correct diagnosis. Several antigens analyzed by flow cytometry have also been evaluated by IHC on the paraffin-embedded tissue sections in order to interpret such immunophenotypic data in the context of cellular distribution and tissue architecture. Cytogenetic analysis, bone marrow aspirate: Sample has been forwarded for testing and results will be reported in an addendum. Molecular analysis, MYD88, bone marrow aspirate: ??Sample has been forwarded for testing and results will be reported in an addendum. Molecular analysis for myeloid neoplasms, NGS, V, bone marrow aspirate: Sample has been forwarded for testing. Results will be reported in an addendum. DNA/RNA extraction, bone marrow aspirate: ??Requested. Extracted sample(s) will be stored for 1 year from date of extraction. 04/23/2023 11:47 AM ACTING TEACHER [facility] 04/06/2023 6:11 AM ACTING TEACHER 04/06/2023 6:11 AM ACTING TEACHER Ghulam Palmer M.D. LAB FELIPE G PATH ORDERABLES Performing Organization Address [facility] Co de Phone Number [facility] [address] [facility] [address] [place] [address] * Syphilis IgG w/ Reflex, EIA, Serum (04/05/2023 3:45 PM ACTING TEACHER) [facility] Syphilis IgG w/ Reflex, EIA, S Nonreactive Nonreactive 04/06/2023 12:30 PM ACTING TEACHER [facility] Comment: No serologic evidence of infection with T. pallidum (syphilis). ??Repeat testing may be considered in patients with suspected acute or primary syphilis in 2-4 weeks. For additional information on interpretation of the syphilis reverse algorithm and results, see: [email or web address] Blood (Blood, Venous) 04/05/2023 3:45 PM ACTING TEACHER 04/05/2023 7:45 PM ACTING TEACHER [place] Venegas M.D. LAB MICROBIOLOGY - B LOOD ORDERABLES Performing Organization Address [facility]/ZIP Co de Phone Number [facility] [address] [place], [place] [id number] [place] [address] [address] [place] [address] * Methylmalonic Acid (MMA), Quantitative (04/05/2023 3:45 PM ACTING TEACHER) Methylmalonic Acid, QN, S 0.15 <=0.40 nmol/mL 04/10/2023 8:05 AM ACTING TEACHER DT Comment: ----ADDITIONAL INFORMATION---- This test was developed and its performance characteristics determined by [facility] in a manner consistent with CLIA requirements. This test has not been cleared or approved by the U.S. Food and Drug Administration. Blood (Blood, Venous) 04/05/2023 3:45 PM ACTING TEACHER 04/06/2023 7:47 AM ACTING TEACHER Ward Venegas M.D. LAB BLOOD ADD-ON Performing Organization Address City/[facility]/ZIP Co de Phone Number [facility] [address] [place] [address], [facility] DTL 200 [facility] [address] [place] [address] * (ABNORMAL) Immunoglobulin Free Light Chains (04/05/2023 3:45 PM ACTING TEACHER) [place] Free Light Chain, S 2.90(H) 0.3300 - 1.94 mg/dL 04/06/2023 9:45 AM ACTING TEACHER SDS Lambda Free Light Chain, S 2.03 0.5700 - 2.63 mg/dL 04/06/2023 9:45 AM ACTING TEACHER [facility] [place]/Lambda FLC Ratio 1.43 0.2600 - 1.65 04/06/2023 9:45 AM ACTING TEACHER [facility] Blood (Blood, Venous) 04/05/2023 3:45 PM ACTING TEACHER 04/06/2023 6:18 AM ACTING TEACHER Ward Venegas M.D. LAB BLOOD ADD-ON [facility] [address] [place] [address] [facility] [address] [place] [address] * (ABNORMAL) Myelopathy, Autoimmune/Paraneoplastic Evaluation (04/05/2023 3:44 PM ACTING TEACHER) Autoimmune Myelopathy Interp, S see below 04/19/2023 10:13 AM ACTING TEACHER DTL Comment: The following antibody was identified: Glutamic Acid Decarboxylase. * This profile is consistent with predisposition to thyrogastric disorders, including thyroiditis, pernicious anemia, and type 1 diabetes, but has low specificity for autoimmune myelopathy. GAD65 antibody values less than 2.00 nM have a lower positive predictive value for neurological autoimmunity than values of 20.0 nM and higher. * IFA Notes None. 04/19/2023 10:13 AM ACTING TEACHER DTL Amphiphysin Ab, S Negative Negative 024 10:13 AM ACTING TEACHER DTL Comment: ----ADDITIONAL INFORMATION---- This test was developed and its performance characteristics determined by [facility] in a manner consistent with CLIA requirements. This test has not been cleared or approved by the U.S. Food and Drug Administration. AGNA-1, S Negative Negative 04/19/2023 10:13 AM ACTING TEACHER DTL Comment: ----ADDITIONAL INFORMATION---- This test was developed and its performance characteristics determined by [facility] in a manner consistent with CLIA requirements. This test has not been cleared or approved by the U.S. Food and Drug Administration. ANALILIA-1, S Negative Negative 04/19/2023 10:13 AM ACTING TEACHER DTL Comment: ----ADDITIONAL INFORMATION---- This test was developed and its performance characteristics determined by [facility] in a manner consistent with CLIA requirements. This test has not been cleared or approved by the U.S. Food and Drug Administration. ANALILIA-2, S Negative Negative 04/19/2023 10:13 AM ACTING TEACHER DTL Comment: ----ADDITIONAL INFORMATION---- This test was developed and its performance characteristics determined by [facility] in a manner consistent with CLIA requirements. This test has not been cleared or approved by the U.S. Food and Drug Administration. ANALILIA-3, S Negative Negative 04/19/2023 10:13 AM ACTING TEACHER DTL Comment: ----ADDITIONAL INFORMATION---- This test was developed and its performance characteristics determined by [facility] in a manner consistent with CLIA requirements. This test has not been cleared or approved by the U.S. Food and Drug Administration. AP3B2 IFA, S Negative Negative 04/19/2023 10:13 AM ACTING TEACHER DTL Comment: ----ADDITIONAL INFORMATION---- This test was developed and its performance characteristics determined by [facility] in a manner consistent with CLIA requirements. This test has not been cleared or approved by the U.S. Food and Drug Administration. CRMP-5-IgG Western Blot, S Negative Negative 04/19/2023 10:13 AM ACTING TEACHER DTL Comment: ----ADDITIONAL INFORMATION---- This test was developed and its performance characteristics determined by [facility] in a manner consistent with CLIA requirements. This test has not been cleared or approved by the U.S. Food and Drug Administration. DPPX Ab IFA, S Negative Negative 04/19/2023 10:13 AM ACTING TEACHER DTL Comment: ----ADDITIONAL INFORMATION---- This test was developed and its performance characteristics determined by [facility] in a manner consistent with CLIA requirements. This test has not been cleared or approved by the U.S. Food and Drug Administration. RONDA-B-R Ab CBA, S Negative Negative 2023 10:13 AM ACTING TEACHER DTL Comment: ----ADDITIONAL INFORMATION---- This test was developed and its performance characteristics determined by [facility] in a manner consistent with CLIA requirements. This test has not been cleared or approved by the U.S. Food and Drug Administration. GAD65 Ab Assay, S 0.03(H) <=0.02 nmol/L 04/19/2023 10:13 AM ACTING TEACHER DTL Comment: ----ADDITIONAL INFORMATION---- This test was developed and its performance characteristics determined by [facility] in a manner consistent with CLIA requirements. This test has not been cleared or approved by the U.S. Food and Drug Administration. GFAP IFA, S Negative Negative 04/19/2023 10:13 AM ACTING TEACHER DTL Comment: ----ADDITIONAL INFORMATION---- This test was developed and its performance characteristics determined by [facility] in a manner consistent with CLIA requirements. This test has not been cleared or approved by the U.S. Food and Drug Administration. mGluR1 Ab IFA, S Negative Negative 04/19/19 24 10:13 AM ACTING TEACHER DTL Comment: ----ADDITIONAL INFORMATION---- This test was developed and its performance characteristics determined by [facility] in a manner consistent with CLIA requirements. This test has not been cleared or approved by the U.S. Food and Drug Administration. MOG FACS, S Negative Negative 04/19/2023 10:13 AM ACTING TEACHER DTL Comment: ----ADDITIONAL INFORMATION---- This test was developed and its performance characteristics determined by [facility] in a manner consistent with CLIA requirements. This test has not been cleared or approved by the U.S. Food and Drug Administration. NIF IFA, S Negative Negative 04/19/2023 10:13 AM ACTING TEACHER DTL Comment: ----ADDITIONAL INFORMATION---- This test was developed and its performance characteristics determined by [facility] in a manner consistent with CLIA requirements. This test has not been cleared or approved by the U.S. Food and Drug Administration. NMO/AQP4 FACS, S Negative Negative 04/19/19 24 10:13 AM ACTING TEACHER DTL Comment: ----ADDITIONAL INFORMATION---- This test was developed and its performance characteristics determined by [facility] in a manner consistent with CLIA requirements. This test has not been cleared or approved by the U.S. Food and Drug Administration. Neurochondrin IFA, S Negative Negative 04/19/2023 10:13 AM ACTING TEACHER DTL Comment: ----ADDITIONAL INFORMATION---- This test was developed and its performance characteristics determined by [facility] in a manner consistent with CLIA requirements. This test has not been cleared or approved by the U.S. Food and Drug Administration. ELECTRONIC GLUER-1, S Negative Negative 04/19/2023 10:13 AM ACTING TEACHER DTL Comment: ----ADDITIONAL INFORMATION---- This test was developed and its performance characteristics determined by [facility] in a manner consistent with CLIA requirements. This test has not been cleared or approved by the U.S. Food and Drug Administration. ELECTRONIC GLUER-2, S Negative Negative 04/19/2023 10:13 AM ACTING TEACHER DTL Comment: ----ADDITIONAL INFORMATION---- This test was developed and its performance characteristics determined by [facility] in a manner consistent with CLIA requirements. This test has not been cleared or approved by the U.S. Food and Drug Administration. Septin-7 IFA, S Negative Negative 4 10:13 AM ACTING TEACHER DTL Comment: ----ADDITIONAL INFORMATION---- This test was developed and its performance characteristics determined by [facility] in a manner consistent with CLIA requirements. This test has not been cleared or approved by the U.S. Food and Drug Administration. Blood (Blood, Venous) 04/05/2023 3:44 PM ACTING TEACHER 04/11/2023 8:58 AM ACTING TEACHER Yazan Osei M.D. LAB BLOOD ADD-ON [facility] [address] [place] [address], [place] DTL [address] [place] [address] * CNC MACHINIST Demyelinating Disease Eval, Serum (04/05/2023 3:44 PM ACTING TEACHER) CNC MACHINIST Demyelinating Disease Interp, S TNP 04/13/2023 3:50 PM ACTING TEACHER DTL Comment:Test was added to a different order number. See [id number]. NMO/AQP4 FACS, S CANCELED Negative 04/13/19 24 3:50 PM ACTING TEACHER DTL Comment: REVISED RESULTS Test was added to a different order number. ----ADDITIONAL INFORMATION---- This test was developed and its performance characteristics determined by [facility] in a manner consistent with CLIA requirements. This test has not been cleared or approved by the U.S. Food and Drug Administration. ----PREVIOUSLY REPORTED ---- Negative, Flagged as: Normal (Reported 04/11/2023 23:33) MOG FACS, S CANCELED Negative 04/13/2023 3:50 PM ACTING TEACHER DTL Comment: REVISED RESULTS Test was added to a different order number. ----ADDITIONAL INFORMATION---- This test was developed and its performance characteristics determined by [facility] in a manner consistent with CLIA requirements. This test has not been cleared or approved by the U.S. Food and Drug Administration. ----PREVIOUSLY REPORTED ---- Negative, Flagged as: Normal (Reported 04/10/2023 06:09) Blood (Blood, Venous) 04/05/2023 3:44 PM ACTING TEACHER 04/06/2023 8:16 AM ACTING TEACHER Ward Venegas M.D. LAB BLOOD ADD-ON Performing Organization Address City/[facility]/ZIP Co de Phone Number [facility] [address] [place] [address], [facility] 200 [facility] [address] [place] [address] * Folate (04/05/2023 3:44 PM ACTING TEACHER) Only the most recent of2 resultswithin the time period is included. Folate, S 9.0 >=4.0 mcg/L 04/06/2023 7: 39 AM ACTING TEACHER DT Blood (Blood, Venous) 04/05/2023 3:44 PM ACTING TEACHER 04/05/2023 4:25 PM ACTING TEACHER Ward Venegas M.D. LAB BLOOD ADD-ON Performing Organization Address [facility] Co de Phone Number [facility] [address] [place] [address], [facility] [address] [place] [address] * (ABNORMAL) Thiamine (Vitamin B1), Whole Blood (04/05/2023 3:43 PM ACTING TEACHER) Pathologist [facility] Thiamine (Vitamin B1), WB 56(L) 70 - 180 nmol/L 04/09/2023 2:27 PM ACTING TEACHER [facility] Comment: ----ADDITIONAL INFORMATION---- This test was developed and its performance characteristics determined by [facility] in a manner consistent with CLIA requirements. This test has not been cleared or approved by the U.S. Food and Drug Administration. Blood (Blood, Venous) 04/05/2023 3:43 PM ACTING TEACHER 04/06/2023 10:17 AM ACTING TEACHER Ward Venegas M.D. LAB BLOOD NON ADD-ON Performing Organization Address City/[facility]/ZIP Co de Phone Number [facility] [address] [place] [address] [facility] [address] [place] [address] [place] [address] * Vitamin E Level (04/05/2023 3:43 PM ACTING TEACHER) A-Tocopherol, Vitamin E 11.9 5.5 - 17.0 mg/L 04/12/2023 1:21 PM ACTING TEACHER [facility] Comment: ----ADDITIONAL INFORMATION---- This test was developed and its performance characteristics determined by [facility] in a manner consistent with CLIA requirements. This test has not been cleared or approved by the U.S. Food and Drug Administration. Blood (Blood, Venous) 04/05/2023 3:43 PM ACTING TEACHER 04/06/2023 7:54 AM ACTING TEACHER Ward Venegas M.D. LAB BLOOD NON ADD-ON Performing Organization Address [facility]/ZIP Co de Phone Number [facility] [address] [place] [address] [facility] [address] [place] [address] [place] [address] * Vitamin B3 and Metabolites (04/05/2023 3:42 PM ACTING TEACHER) Pathologist [facility] Nicotinic Acid (Niacin) <5.0 Cutoff:<5 .0 ng/mL 04/07/2023 11:45 AM ACTING TEACHER [facility] Nicotinamide 11.3 5.0 - 48.0 ng/mL 04/07/2023 11:45 AM ACTING TEACHER [facility] Nicotinuric Acid <5.0 Cutoff:<5 .0 ng/mL 04/07/2023 11:45 AM [facility] Comment: ----ADDITIONAL INFORMATION---- Testing performed by Liquid Chromatography-Tandem Mass Spectrometry (LC-MS/MS) This test was developed and its performance characteristics determined by [facility] in a manner consistent with CLIA requirements. This test has not been cleared or approved by the U.S. Food and Drug Administration. Blood (Blood, Venous) 04/05/2023 3:42 PM ACTING TEACHER 04/06/2023 12:01 PM ACTING TEACHER Ward Venegas M.D. LAB BLOOD NON ADD-ON [facility] [address] [place] [address] [facility] [address] [place] [address] [place] [address] * (ABNORMAL) Riboflavin (Vitamin B2) (04/05/2023 3:41 PM ACTING TEACHER) Riboflavin (Vitamin B2), P 30(H) 1 - 19 mcg/L 04/09/2023 7:30 AM ACTING TEACHER [facility] Comment: ----ADDITIONAL INFORMATION---- This test was developed and its performance characteristics determined by [facility] in a manner consistent with CLIA requirements. This test has not been cleared or approved by the U.S. Food and Drug Administration. Blood (Blood, Venous) 04/05/2023 3:41 PM ACTING TEACHER 04/06/2023 7:22 AM ACTING TEACHER Ward Venegas M.D. LAB BLOOD NON ADD-ON Performing Organization Address [facility] Co de Phone Number [facility] [address] [place] [address] [facility] [address] [place] [address] * Ascorbic Acid (Vitamin C) (04/05/2023 3:41 PM ACTING TEACHER) Pathologist [facility] Ascorbic Acid, P 0.6 0.4 - 2.0 mg/dL 04/07/2023 12:08 PM ACTING TEACHER [facility] Comment: ----ADDITIONAL INFORMATION---- This test was developed and its performance characteristics determined by [facility] in a manner consistent with CLIA requirements. This test has not been cleared or approved by the U.S. Food and Drug Administration. Blood (Blood, Venous) 04/05/2023 3:41 PM ACTING TEACHER 04/06/2023 2:44 PM ACTING TEACHER Ward Venegas M.D. LAB BLOOD NON ADD-ON Performing Organization Address City/[facility]/ZIP Co de Phone Number [facility] [address] [place] [address] [facility] [address] [place] [address] [place] [address] * Leukemia/Lymphoma Immunophenotyping by Flow Cytometry, Blood (04/05/2023 3:11 PM [facility]) LCMSB Result Performed 04/09/2023 11:26 AM [facility] DTL Final Diagnosis: Peripheral blood, flow cytometric immunophenotyping: A small kappa light chain restricted B-cell population is detected that represents approximately 3% of the total analyzed events. ??The significance of this finding is uncertain. ??It does not necessarily indicate involvement by a lymphoproliferative disorder. Comment: If clinically indicated, correlation of the flow cytometry results with possible bone marrow aspirate and biopsy findings, clinical history and other laboratory features is recommended for a definitive diagnosis. ??If desired, we can provide diagnostic services as part of a hematopathology consultation. Please contact the signing pathologist at if you have further questions regarding these analyses. Reviewed by: Mei Palmer 04/09/2023 11:26 AM [facility] DT Special Studies: WBC: ??2.0 x 10(9)/L %Lymphs (CBC/automated differential): ??42% #Lymphs (CBC/automated differential): ??0.9 x 10(9)/L Results: Blasts: ??Not increased by CD45/side scatter and CD34. B-cells: ??Monotypic kappa Express: ??CD19, CD20, CD22, CD23, CD200. Do not express: ??CD5, CD10, CD38, CD11c, CD103. Estimated size: ??10% gated lymphoid events; 3% total analyzed events B-cell markers tested: ??Triage panel: CD10, CD19, CD45 and kappa and lambda immunoglobulin light chains. B-cell panel: CD5, CD11c, CD19, CD20, CD22, CD23, CD38, CD45, CD103, CD200 and kappa and lambda immunoglobulin light chains. T-cells/NK-cells: ??No aberrant phenotype by CD3 and CD16. Quality Assessment: ??Specimen received within validated guidelines. 04/09/2023 11:26 AM [facility] DT Microscopic Description A [id number] slide prepared from the flow cytometry specimen is examined. ??No morphologic features of acute leukemia or lymphoma are identified. 04/09/2023 11:26 AM [facility] DT Comment: ----ADDITIONAL INFORMATION---- This test was developed using an analyte specific reagent. Its performance characteristics were determined by [facility] in a manner consistent with CLIA requirements. This test has not been cleared or approved by the U.S. Food and Drug Administration. Blood (Blood, Venous) 04/05/2023 3:11 PM ACTING TEACHER 04/05/2023 4:21 PM ACTING TEACHER Ward Venegas M.D. LAB GENETIC TESTING [facility] [address] [place] [address], [facility] DT [address] [place] [address] * (ABNORMAL) EBV DNA Detect/Quant (04/05/2023 3:10 PM ACTING TEACHER) [facility] EBV DNA Detect/Quant, P <35(A) Undetected IU/mL 04/06/2023 4:42 PM ACTING TEACHER [facility] Comment: Result in log IU/mL is <1.54. EBV DNA is detected, but level present is <35 IU/mL (<1.54 log IU/mL). This assay cannot accurately quantify EBV DNA below this level. ----ADDITIONAL INFORMATION---- The quantification range of this assay is 35 to 100,000,000 IU/mL (1.54 log to 8.00 log IU/mL). Testing was performed using the priya EBV test ([employer] Blood (Blood, Venous) 04/05/2023 3:10 PM ACTING TEACHER 04/05/2023 8:04 PM ACTING TEACHER Ward Venegas M.D. LAB MICROBIOLOGY - B LOOD ORDERABLES Performing Organization Address City/[facility]/ZIP Co de Phone Number [facility] [address] [place] [address] [facility] [address] [place] [address] [place] [address] * MR Cervical Spine without and with IV Contrast (04/05/2023 1:05 PM ACTING TEACHER) Anatomical Region Laterality Modality Spine, Cervical Spine, Neuro radiology RST LOS, Neuroradiology ARZ LOS, Neuroradiology FLA LOS N/A Magneti c Resonance Impressions 04/05/2023 3:28 PM ACTING TEACHER 1. ??Moderate multilevel cervical spondylosis (most pronounced at C4-C6) as described. No high-grade spinal canal or neural foraminal narrowing. 2. ??Prominent left greater than right C1-2 facet effusion which may function as a source of pain generation. 3. ??Otherwise, unremarkable cervical spine MRI without abnormal cord signal, marrow replacing lesion, or abnormal enhancement. Narrative 04/05/2023 3:28 PM ACTING TEACHER EXAM: MR CERVICAL SPINE WITHOUT AND WITH IV CONTRAST COMPARISON: Outside CT cervical spine without IV contrast 12/18/2021 FINDINGS: Preserved cervical vertebral body heights and alignment. Trace anterolisthesis of C4-C6 and T1 on T2. No cervical spinal cord signal abnormality. Mild Modic type II endplate changes within the inferior endplate of C5 and superior endplate of C6. Otherwise, no marrow signal abnormality. No suspicious enhancing lesions identified within the cervical spine. Grossly normal paraspinal soft tissues. Multilevel cervical spondylosis characterized, as detailed by level below: Craniocervical junction: Normal. C1-C2: Prominent left greater than right facet effusion which may function as a source of pain generation. C2-C3: A small posterior disc bulge minimally indents the ventral thecal sac. No significant spinal canal or neural foraminal narrowing. C3-C4: A posterior disc osteophyte complex minimally indents the ventral thecal sac. No significant spinal canal or neural foraminal narrowing. C4-C5: Moderate intervertebral disc space narrowing. A posterior disc osteophyte complex indents the ventral thecal sac and produces mild spinal canal narrowing without impinging on the spinal cord. Uncovertebral hypertrophy and facet arthropathy contribute to mild-moderate left neural foraminal narrowing. The right neural foramen is patent. C5-C6: Advanced intervertebral disc space narrowing with endplate irregularity. A posterior disc osteophyte complex indents the ventral thecal sac and produces minimal spinal canal narrowing. Uncovertebral hypertrophy and facet arthropathy contributes to moderate left and mild right neural foraminal narrowing bilaterally. C6-C7: Moderate intervertebral disc space narrowing. A posterior disc osteophyte complex indents the ventral thecal sac and produces minimal spinal canal narrowing. The neural foramina are patent. C7-T1: No significant spinal canal or neural foraminal narrowing. Procedure Note Joe Gonzalez M.D. - 04/05/2023 EXAM: MR CERVICAL SPINE WITHOUT AND WITH IV CONTRAST COMPARISON: Outside CT cervical spine without IV contrast 12/18/2021 FINDINGS: Preserved cervical vertebral body heights and alignment. Traceanterolisthesis of C4-C6 and T1 on T2. No cervical spinal cord signalabnormality. Mild Modic type II endplate changes within the inferiorendplate of C5 and superior endplate of C6. Otherwise, no marrow signal abnormality. No suspicious enhancinglesions identified within the cervical spine. Grossly normal paraspinalsoft tissues. Multilevel cervical spondylosis characterized, as detailed by levelbelow: Craniocervical junction: Normal. C1-C2: Prominent left greater than right facet effusion which may functionas a source of pain generation. C2-C3: A small posterior disc bulge minimally indents the ventral thecalsac. No significant spinal canal or neural foraminal narrowing. C3-C4: A posterior disc osteophyte complex minimally indents the ventralthecal sac. No significant spinal canal or neural foraminal narrowing. C4-C5: Moderate intervertebral disc space narrowing. A posterior discosteophyte complex indents the ventral thecal sac and produces mild spinalcanal narrowing without impinging on the spinal cord. Uncovertebralhypertrophy and facet arthropathy contribute to mild-moderate left neural foraminal narrowing. The rightneural foramen is patent. C5-C6: Advanced intervertebral disc space narrowing with endplateirregularity. A posterior disc osteophyte complex indents the ventralthecal sac and produces minimal spinal canal narrowing. Uncovertebralhypertrophy and facet arthropathy contributes to moderate left and mild right neural foraminal narrowing bilaterally. C6-C7: Moderate intervertebral disc space narrowing. A posterior discosteophyte complex indents the ventral thecal sac and produces minimalspinal canal narrowing. The neural foramina are patent. C7-T1: No significant spinal canal or neural foraminal narrowing. IMPRESSION: 1. Moderate multilevel cervical spondylosis (most pronounced at C4-C6) asdescribed. No high-grade spinal canal or neural foraminal narrowing. 2. Prominent left greater than right C1-2 facet effusion which mayfunction as a source of pain generation. 3. Otherwise, unremarkable cervical spine MRI without abnormal cordsignal, marrow replacing lesion, or abnormal enhancement. Ward Venegas M.D. [facility] MRI PROCEDURES * MR Brain without and with IV Contrast (04/05/2023 1:05 PM ACTING TEACHER) Anatomical Region Laterality Modality Head, Brain, Neuroradiology RST LOS, Neuroradiology ARZ LOS, Neuroradiology FLA LOS N/A Magnetic Resonance Impressions 04/05/2023 2:39 PM ACTING TEACHER 1. ??No acute intracranial findings. Specifically, no evidence for acute territorial infarct. 2. ??T2 hyperintense lesions within the bilateral basal ganglia are unchanged dating back to MRI performed 06/13/2021 and should represent benign perivascular spaces. Narrative 04/05/2023 2:39 PM ACTING TEACHER EXAM: MR BRAIN WITHOUT AND WITH IV CONTRAST COMPARISON: CT head without IV contrast 04/03/2023. MRI brain with and without IV contrast 06/13/2021 FINDINGS: No abnormal restricted diffusion to suggest acute territorial infarct. No intracranial mass effect, hydrocephalus, or hemorrhage. No suspicious enhancing intracranial lesions or abnormal leptomeningeal enhancement. Scattered periventricular and subcortical white matter T2/FLAIR hyperintensities consistent with chronic small vessel ischemic change. ??Moderate brain parenchymal volume loss, predominating in the frontal region, with commensurate ex vacuo prominence of ventricular system. Partially empty sella, unchanged from 06/13/2021. Probable prominent perivascular spaces within the basal ganglia. The major intracranial arterial flow voids are normal in appearance. Inspissated mucosal secretions within the right posterior ethmoid air cells, and a small amount of dependent secretions in the left sphenoid sinus. The mastoid air cells are clear. The calvarium, skull base, and extracranial soft tissues are unremarkable. Bilateral lens replacements. Degenerative changes of the TMJs. Procedure Note Joe Gonzalez M.D. - 04/05/2023 EXAM: MR BRAIN WITHOUT AND WITH IV CONTRAST COMPARISON: CT head without IV contrast 04/03/2023. MRI brain with andwithout IV contrast 06/13/2021 FINDINGS: No abnormal restricted diffusion to suggest acute territorialinfarct. No intracranial mass effect, hydrocephalus, or hemorrhage. Nosuspicious enhancing intracranial lesions or abnormal leptomeningealenhancement. Scattered periventricular and subcortical white matter T2/FLAIR hyperintensities consistent withchronic small vessel ischemic change. Moderate brain parenchymal volumeloss, predominating in the frontal region, with commensurate ex vacuoprominence of ventricular system. Partially empty sella, unchanged from 06/13/2021. Probable prominent perivascular spaces within the basal ganglia. The majorintracranial arterial flow voids are normal in appearance. Inspissatedmucosal secretions within the right posterior ethmoid air cells, and asmall amount of dependent secretions in the left sphenoid sinus. The mastoid air cells are clear. Thecalvarium, skull base, and extracranial soft tissues are unremarkable.Bilateral lens replacements. Degenerative changes of the TMJs. IMPRESSION: 1. No acute intracranial findings. Specifically, no evidence for acuteterritorial infarct. 2. T2 hyperintense lesions within the bilateral basal ganglia areunchanged dating back to MRI performed 06/13/2021 and should representbenign perivascular spaces. Ward Venegas M.D. G MRI PROCEDURES * Prothrombin Time (PT) (04/04/2023 8:29 AM ACTING TEACHER) Prothrombin Time, P 12.3 9.4 - 12.5 sec 04/04/2023 9:38 AM ACTING TEACHER DTL INR 1.1 0.9 - 1.1 04/04/2023 9:38 AM ACTING TEACHER DTL Comment: ----ADDITIONAL INFORMATION---- Standard intensity warfarin therapeutic range: 2.0 to 3.0 ?? High intensity warfarin therapeutic range: 2.5 to 3.5 Blood (Blood, Venous) 04/04/2023 8:29 AM ACTING TEACHER 04/04/2023 9:12 AM ACTING TEACHER Alberto Robledo M.D. LAB BLOOD ADD-ON [facility] [address] [place] [address], [facility] DTL [facility] [address] [place] [address] * Parathyroid Hormone-Related Peptide (PTHrP) (04/04/2023 8:28 AM ACTING TEACHER) Pathologist [facility] PTH-Related Peptide <0.4 < or = 4.2 pmol/L 04/06/2023 2:27 PM ACTING TEACHER [facility] Comment: ----ADDITIONAL INFORMATION---- This test was developed and its performance characteristics determined by [facility] in a manner consistent with CLIA requirements. This test has not been cleared or approved by the U.S. Food and Drug Administration. Blood (Blood, Venous) 04/04/2023 8:28 AM ACTING TEACHER 04/04/2023 10:59 AM ACTING TEACHER Cinda Henson M.D. LAB BLOOD NON ADD-ON [facility] [address] [place] [address] [facility] [address] [place] [address] [place] [address] * (ABNORMAL) Vitamin B12 Assay (04/04/2023 8:28 AM ACTING TEACHER) [facility] Vitamin B12 Assay, S 1300(H) 180 - 914 ng/L 04/04/2023 10:21 AM ACTING TEACHER DT Comment: ----ADDITIONAL INFORMATION---- In patients being evaluated for vitamin B12 deficiency who have intrinsic factor blocking antibodies (IFBA), false elevations of B12 may occur due to IFBA interference thus potentially obscuring a physiological deficiency of B12. If observed B12 concentrations are discordant with clinical presentation, measurement of methylmalonic acid (MMA) should be considered. Blood (Blood, Venous) 04/04/2023 8:28 AM ACTING TEACHER 04/04/2023 9:26 AM ACTING TEACHER Cinda Henson M.D. LAB BLOOD ADD-ON [facility] [address] [place] [address], [place] DTL [facility] [address] [place] [address] * (ABNORMAL) Vitamin B6 Profile (PLP and PA) (04/04/2023 8:27 AM ACTING TEACHER) Pathologist [facility] Pyridoxal 5-Phosphate (PLP), P <2(L) 5 - 50 mcg/L 04/06/2023 2:12 PM ACTING TEACHER [facility] Comment: ----ADDITIONAL INFORMATION---- This test was developed and its performance characteristics determined by [facility] in a manner consistent with CLIA requirements. This test has not been cleared or approved by the U.S. Food and Drug Administration. Pyridoxic Acid (PA), P <2(L) 3 - 30 mcg/L 04/06/2023 2:12 PM ACTING TEACHER [facility] Comment: ----ADDITIONAL INFORMATION---- This test was developed and its performance characteristics determined by [facility] in a manner consistent with CLIA requirements. This test has not been cleared or approved by the U.S. Food and Drug Administration. Blood (Blood, Venous) 04/04/2023 8:27 AM ACTING TEACHER 04/04/2023 3:34 PM ACTING TEACHER Cinda Henson M.D. LAB BLOOD NON ADD-ON [facility] [address] [place] [address] [facility] [address] [place] [address] [place] [address] * CT Head without IV Contrast (04/03/2023 5:38 PM ACTING TEACHER) Anatomical Region Laterality Modality Head, Neuroradiology RST LOS , Neuroradiology ARZ LOS, Neuroradiology FLA LOS N/A Computed Tomography, Compute d Tomography 04/03/2023 5:33 PM ACTING TEACHER Impressions 04/03/2023 6:31 PM ACTING TEACHER An age-indeterminate left basal ganglia lacunar infarct appears new since November 2021. Otherwise, no significant change since comparison or acute intracranial findings. Narrative 04/03/2023 6:31 PM ACTING TEACHER EXAM: CT HEAD WITHOUT IV CONTRAST COMPARISON: CT head 12/18/2021 FINDINGS: No intracranial hemorrhage, mass effect, or evidence of acute infarct. The ventricles and cisterns are normal in size, allowing for age-appropriate moderate ??generalized parenchymal volume loss most prominent in the frontal lobes. Mild ?? leukoaraiosis. Probable small lacunar infarct in the left basal ganglia (example series 2 image 15) is age indeterminate and was not definitely seen in November 2021 though direct comparison is limited by technique. Dystrophic calcifications within the midbrain and armin, unchanged. No extra-axial fluid collection. Intracranial vascular calcifications. Clear mastoid air cells. Inspissated mucosal secretions within the right posterior ethmoid air cells. Small amount of frothy debris in the left sphenoid sinus. Degenerative changes in the bilateral temporomandibular joints. Procedure Note Kraig Garcia M.D. - 04/03/2023 EXAM: CT HEAD WITHOUT IV CONTRAST COMPARISON: CT head 12/18/2021 FINDINGS: No intracranial hemorrhage, mass effect, or evidence of acuteinfarct. The ventricles and cisterns are normal in size, allowing forage-appropriate moderate generalized parenchymal volume loss mostprominent in the frontal lobes. Mild leukoaraiosis. Probable small lacunar infarct in the left basal ganglia(example series 2 image 15) is age indeterminate and was not definitelyseen in November 2021 though direct comparison is limited by technique.Dystrophic calcifications within the midbrain and armin, unchanged. No extra-axial fluid collection.Intracranial vascular calcifications. Clear mastoid air cells. Inspissatedmucosal secretions within the right posterior ethmoid air cells. Smallamount of frothy debris in the left sphenoid sinus. Degenerative changes in the bilateral temporomandibular joints. IMPRESSION: An age-indeterminate left basal ganglia lacunar infarct appears new sinceNovember 2021. Otherwise, no significant change since comparison or acuteintracranial findings. Alberto Robledo M.D. IMG CT PROCEDURE S * Patient Status (04/03/2023 4:44 PM ACTING TEACHER) FIO2 0.21 0.21=AIR 04/03/2023 4:53 PM ACTING TEACHER [facility] Spont. breaths/min 22 04/03/2023 4:53 PM ACTING TEACHER [facility] Blood 04/03/2023 4:44 PM ACTING TEACHER 04/03/2023 4:53 PM ACTING TEACHER Alberto Robledo M.D. LAB BLOOD NON AD D-ON [facility] [address] [place] [address], [facility] [address] [place] [address] * (ABNORMAL) Blood Gas with Coox, Venous (04/03/2023 4:44 PM ACTING TEACHER) pO2, Venous, B 45 Not applicable mm Hg 04/03/2023 4:55 PM ACTING TEACHER [facility] pCO2, Venous, B 49 41 - 51 mm Hg 04/03/2023 4:55 PM ACTING TEACHER [facility] pH, Venous, B 7.44(H) 7.32 - 7.43 pH 024 4:55 PM ACTING TEACHER [facility] Base Excess, Venous, B 9 Not applicable mmol/L 04/03/2023 4:55 PM ACTING TEACHER [facility] HCO3, Venous, B 33 Not applicable mmol/L 04/03/2023 4:55 PM ACTING TEACHER [facility] Hemoglobin, Venous, B 9.9(L) 11.6 - 15.0 g/dL 04/03/2023 4:55 PM ACTING TEACHER [facility] O2Hb, Venous, B 72.5 Not applicable % 04/03/2023 4:55 PM ACTING TEACHER [facility] COHb, Venous, B 1.6 <3.0 % 04/03/2023 4:55 PM ACTING TEACHER [facility] MetHb, Venous, B 2.2(H) <1.5 % 04/03/2023 4:55 PM ACTING TEACHER [facility] CtO2, Venous, B 10.1 Not Applicable vol % 04/03/2023 4:55 PM ACTING TEACHER [facility] Sample Site, Venous, B Venipunct 04/03/2023 4:53 PM ACTING TEACHER [facility] Blood (Blood, Venous) 04/03/2023 4:44 PM ACTING TEACHER 04/03/2023 4:53 PM ACTING TEACHER Alberto Robledo M.D. LAB BLOOD NON AD D-ON [facility] [address] [place] [address], [facility] STMA [facility] [address] [address] * US Abdomen Complete (04/03/2023 10:30 AM ACTING TEACHER) Anatomical Region Laterality Modality Abdomen, Ultrasound RST LOS, Ultrasound ARZ LOS, Ultrasound FLA LOS N/A Ultrasound Impressions 04/03/2023 10:41 AM ACTING TEACHER 1. Normal liver. 2. Splenomegaly. Narrative 04/03/2023 10:41 AM ACTING TEACHER EXAM: US ABDOMEN COMPLETE HISTORY: 82-year-old female with thrombocytopenia. COMPARISON: None. FINDINGS: Liver: Normal. Gallbladder: Normal. Intrahepatic ducts: Not dilated. Common duct: Not dilated. Pancreas: Normal where seen. Right kidney: Length: 10.6 cm. Normal echogenicity. No hydronephrosis. Left kidney: Length: 9.3 cm. Normal echogenicity. Mild caliectasis including a prominent renal pelvis. Spleen: Splenomegaly. ??Spleen length: 18.0 cm. Aorta: Normal caliber. IVC: Normal where seen. Ascites: ??None. Procedure Note Michelle Buenrostro M.D. - 04/03/2023 EXAM: US ABDOMEN COMPLETE HISTORY: 82-year-old female with thrombocytopenia. COMPARISON: None. FINDINGS: Liver: Normal. Gallbladder: Normal. Intrahepatic ducts: Not dilated. Common duct: Not dilated. Pancreas: Normal where seen. Right kidney: Length: 10.6 cm. Normal echogenicity. No hydronephrosis. Left kidney: Length: 9.3 cm. Normal echogenicity. Mild caliectasis including aprominent renal pelvis. Spleen: Splenomegaly. Spleen length: 18.0 cm. Aorta: Normal caliber. IVC: Normal where seen. Ascites: None. IMPRESSION: 1. Normal liver. 2. Splenomegaly. Milli Faria M.D. [facility] US PROCEDURES * M-protein Isotype, Mass-Fix Matrix-Assisted Laser Desorption/Ionization [id number] Mass Spectrometry, Random, Urine (04/02/2023 4:19 PM ACTING TEACHER) Pathologist [facility] Flag M-protein Isotype MS, Random, U Negative Negative 04/06/2023 10:34 AM ACTING TEACHER [facility] M-protein Isotype MS, Random, U No monoclonal protein detected. 04/06/2023 10:34 AM ACTING TEACHER [facility] Comment: ----ADDITIONAL INFORMATION---- The submitted sample was assayed by five separate immunopurifications for IgG, IgA, IgM, kappa and lambda. ??The result reflects the findings of either no monoclonal protein detected or those monoclonal immunoglobulins that were detected. This test was developed and its performance characteristics determined by [facility] in a manner consistent with CLIA requirements. This test has not been cleared or approved by the U.S. Food and Drug Administration. Urine 04/02/2023 4:19 PM ACTING TEACHER 04/03/2023 6:58 AM ACTING TEACHER Milli Faria M.D. LAB URINE ORDERAB LES Performing Organization Address City/State/[facility] Co de Phone Number [facility] [address] [place] [address] [facility] [address] [place] [address] [place] [address] * (ABNORMAL) Electrophoresis, Protein, Random, Urine (04/02/2023 4:19 PM ACTING TEACHER) Protein, Total, Random, U 19 mg/dL 04/02/2023 6:07 PM ACTING TEACHER DTL Creatinine, Random, U 57 16 - 326 mg/dL 04/02/2023 6:07 PM ACTING TEACHER DTL Protein/Creati nine Ratio 0.33(H) <0.18 mg/mg 04/02/2023 6:07 PM ACTING TEACHER DTL Albumin, mg/dL 10.3 mg/dL 04/05/2023 8:20 AM ACTING TEACHER SDSC Alpha-1 globulin, mg/dL 1.0 mg/dL 04/05/2023 8:20 AM ACTING TEACHER SDSC Alpha-2 globulin, mg/dL 2.3 mg/dL 04/05/2023 8:20 AM ACTING TEACHER SDSC Beta globulin, mg/dL 2.9 mg/dL 04/05/2023 8:20 AM ACTING TEACHER SDSC Gamma globulin, mg/dL 2.9 mg/dL 04/05/2023 8:20 AM ACTING TEACHER SDSC A/G Ratio 1.15 04/05/2023 8:20 AM ACTING TEACHER SDSC Impression Small abnormality in gamma fraction. See Isotype. 04/05/2023 8:20 AM [facility] Urine (Urine, Catheter) 04/02/2023 4:19 PM ACTING TEACHER 04/03/2023 6:58 AM ACTING TEACHER Milli Faria M.D. LAB URINE ORDERAB LES Performing Organization Address [facility] Co de Phone Number [facility] [address] [place] [address] [facility] [address] [place] [address] [facility] [address] [place] [address] [place] [address] * Histoplasma and Blastomyces Antigen, Enzyme Immunoassay, Serum (04/02/2023 4:14 PM ACTING TEACHER) [facility] Histoplasma/Blasto myces Ag Result Not Detected Not Detected 04/03/2023 10:08 AM [facility] Comment: No antigen from Histoplasma or Blastomyces detected. ??False negative results may occur depending on extent of disease, and/or site of infection. ??Repeat testing on a new specimen if clinically indicated. ?? Histoplasma/Blasto myces Ag Value Not Detected ng/mL 04/03/2023 10:08 AM [facility] Comment: ----ADDITIONAL INFORMATION---- This test was developed and its performance characteristics determined by [facility] in a manner consistent with CLIA requirements. This test has not been cleared or approved by the U.S. Food and Drug Administration. Blood (Blood, Venous) 04/02/2023 4:14 PM ACTING TEACHER 04/02/2023 7:42 PM ACTING TEACHER Milli Faria M.D. LAB MICROBIOLOGY - BLOOD ORDERABLES Performing Organization Address [facility] Co de Phone Number [facility] [address] [place] [address] [facility] [address] [place] [address] [place] [address] * (ABNORMAL) M-protein Isotype MALDI-TOF MS, Serum (04/02/2023 4:14 PM ACTING TEACHER) [facility] Flag, M-protein Isotype Positive(A) Negative 04/04/2023 12:05 PM ACTING TEACHER [facility] M-protein Isotype MALDI-TOF MS IgM kappa, small monoclonal. ~Suggest repeat testing in 6-12 months if clinically indicated. 04/04/2023 12:05 PM ACTING TEACHER [facility] Comment: ----ADDITIONAL INFORMATION---- The submitted sample was assayed by five separate immunopurifications for IgG, IgA, IgM, kappa and lambda. ??The result reflects the findings of either no monoclonal protein detected or those monoclonal immunoglobulins that were detected. This test was developed and its performance characteristics determined by [facility] in a manner consistent with CLIA requirements. This test has not been cleared or approved by the U.S. Food and Drug Administration. Blood 04/02/2023 4:14 PM ACTING TEACHER 04/02/2023 6:12 PM ACTING TEACHER Milli Faria M.D. LAB BLOOD ADD-ON [facility] [address] [place] [address] [facility] [address] [place] [address] [place] [address] * (ABNORMAL) SPSMA Result (04/02/2023 4:14 PM ACTING TEACHER) [facility] Neutrophilic Segs and Bands 49(L) 50 - 75 % 04/02/2023 8:32 PM ACTING TEACHER DHPM Lymphocytes 36 18 - 42 % 04/02/2023 8:32 PM ACTING TEACHER DHPM Monocytes 14(H) 2 - 11 % 04/02/2023 8:32 PM ACTING TEACHER DHPM Basophils 1 0 - 2 % 04/02/2023 8:32 PM ACTING TEACHER DHPM Interpretation See Comment 8:32 PM ACTING TEACHER DHPM Comment:No schistocytes are seen. No platelet clumping. Reviewed by: Krish 04/02/2023 8:32 PM ACTING TEACHER DHPM Blood (Blood, Venous) 04/02/2023 4:14 PM ACTING TEACHER 04/02/2023 4:39 PM ACTING TEACHER Milli Faria M.D. LAB BLOOD ADD-ON Performing Organization Address City/[facility] Co de Phone Number [facility] [address] [place] [address], [facility] [address] [place] [address] * HCV Ab Scrn w/Reflex to HCV PCR, Serum (04/02/2023 4:14 PM ACTING TEACHER) HCV Ab Screen, S Negative Negative 04/02/2023 10:19 PM ACTING TEACHER [facility] Comment:Deanfy-pr-hcnlyw rat io is <1.00. Blood (Blood, Venous) 04/02/2023 4:14 PM ACTING TEACHER 04/02/2023 6:06 PM ACTING TEACHER Milli Faria M.D. LAB MICROBIOLOGY - BLOOD ORDERABLES Performing Organization Address [facility] Co de Phone Number [facility] [address] [place] [address] [facility] [address] [place] [address] * 25-Hydroxyvitamin D2 and D3 (04/02/2023 4:14 PM ACTING TEACHER) Pathologist [facility] 25-Hydroxy D2 <4.0 ng/mL 04/04/2023 8:46 AM ACTING TEACHER [facility] 25-Hydroxy D3 69 ng/mL 04/04/2023 8:46 AM ACTING TEACHER [facility] 25-Hydroxy D Total 69 ng/mL 2023 8:46 AM [facility] Comment: Interpretation: 51-80 ng/mL (increased risk of hypercalciuria) ----REFERENCE VALUE---- 25-HYDROXY D TOTAL (D2+D3) Optimum levels in the healthy population are 20-50, patients with bone disease may benefit from higher levels within this range. ----ADDITIONAL INFORMATION---- This test was developed and its performance characteristics determined by [facility] in a manner consistent with CLIA requirements. This test has not been cleared or approved by the U.S. Food and Drug Administration. Blood (Blood, Venous) 04/02/2023 4:14 PM ACTING TEACHER 04/03/2023 7:21 AM ACTING TEACHER Milli Faria M.D. LAB BLOOD ADD-ON [facility] [address] [place] [address] [facility] [address] [place] [address] [place] [address] * Reticulocytes (04/02/2023 4:14 PM ACTING TEACHER) Pathologist [facility] Reticulocytes, B 2.08 0.60 - 2.71 % 04/02/2023 4:46 PM ACTING TEACHER DTL Absolute Reticulocyte 69.3 30.4 - 110.9 x10(9)/L 04/02/2023 4:46 PM ACTING TEACHER DTL Blood (Blood, Venous) 04/02/2023 4:14 PM ACTING TEACHER 04/02/2023 4:39 PM ACTING TEACHER Milli Faria M.D. LAB BLOOD ADD-ON Performing Organization Address City/[facility]/ZIP Co de Phone Number [facility] [address] [place] [address], [facility] [address] [place] [address] * (ABNORMAL) Electrophoresis, Protein (04/02/2023 4:14 PM ACTING TEACHER) Pathologist [facility] Total Protein, S 6.4 6.3 - 7.9 g/dL 04/02/2023 6:31 PM ACTING TEACHER SDSC Albumin 3.3(L) 3.4 - 4.7 g/dL 04/02/2023 9:19 PM ACTING TEACHER SDSC Alpha-1 Globulin 0.3 0.1 - 0.3 g/dL 04/02/2023 9:19 PM ACTING TEACHER SDSC Alpha-2 Globulin 0.7 0.6 - 1.0 g/dL 04/02/2023 9:19 PM ACTING TEACHER SDSC Beta-Globulin 0.8 0.7 - 1.2 g/dL 04/02/2023 9:19 PM ACTING TEACHER [facility] Gamma-Globulin 1.3 0.6 - 1.6 g/dL 04/02/2023 9:19 PM ACTING TEACHER SDSC A/G Ratio 1.06 04/02/2023 9:19 PM ACTING TEACHER [facility] Impression Small abnormality in gamma fraction. 04/02/2023 9:19 PM ACTING TEACHER [facility] Blood (Blood, Venous) 04/02/2023 4:14 PM ACTING TEACHER 04/02/2023 6:12 PM ACTING TEACHER Milli Faria M.D. LAB BLOOD ADD-ON [facility] [address] [place] [address] [facility] [address] [place] [address] [facility] [address] [place] [address] [place] [address] * (ABNORMAL) Parathyroid Hormone (PTH) (04/02/2023 4:14 PM ACTING TEACHER) Parathyroid Hormone (PTH), S <6.0(L) 15 - 65 pg/mL 04/02/2023 5:32 PM ACTING TEACHER DT Blood (Blood, Venous) 04/02/2023 4:14 PM ACTING TEACHER 04/02/2023 4:57 PM ACTING TEACHER Milli Faria M.D. LAB BLOOD ADD-ON [facility] [address] [place] [address], [facility] [address] [place] [address] * (ABNORMAL) Troponin T, 2h/6h, 5th Gen (04/02/2023 12:19 PM ACTING TEACHER) Troponin T, 2 hr, 5th gen 16(H) <=10 ng/L 04/02/2023 12:41 PM ACTING TEACHER [facility] 2H Delta 0 ng/L 04/02/2023 12:41 PM ACTING TEACHER [facility] 2H Delta Interp Not Changing 04/02/2023 12:41 PM ACTING TEACHER [facility] Troponin T, 6 hr, 5th gen CANCELED ng/L 04/02/2023 12:41 PM ACTING TEACHER [facility] Comment:Result canceled by t he ancillary. 6H Delta CANCELED ng/L 04/02/2023 12:41 PM ACTING TEACHER [facility] Comment:Result canceled by yenni mcadams ancillary. 6H Delta % CANCELED % 04/02/2023 12:41 PM ACTING TEACHER [facility] Comment:Result canceled by yenni mcadams ancillary. Blood (Blood, Venous) 04/02/2023 12:19 PM ACTING TEACHER 04/02/2023 12:25 PM ACTING TEACHER Narrative [facility] - 04/02/2023 12:41 PM ACTING TEACHER Specimen Information: Specimen ID: [id number] Specimen Type: Blood Specimen Collection Start Date: 04/02/2023 12:19 PM Specimen Received Date: 04/02/2023 12:25 PM Specimen ID: [id number] Specimen Type: Blood Sean Jansen M.D. LAB BLOOD TROPONIN [facility] [address] [place] [address] * (ABNORMAL) Dipstick, POCT, Urine (04/02/2023 11:14 AM ACTING TEACHER) Pathologist [facility] Glucose, POCT, U Negative Negative mg/dL 04/02/2023 11:15 AM ACTING TEACHER [facility] Ketone, POCT, U Trace(A) Negative mg/dL 04/02/2023 11:15 AM ACTING TEACHER [facility] Specific Revere, POCT, U 1.015 1.005 - 1.030 04/02/2023 11:15 AM ACTING TEACHER [facility] Blood, POCT, U Trace(A) Negative 04/02/2023 11:15 AM ACTING TEACHER [facility] pH, POCT, Urine 7.0 5.0 - 8.0 04/02/2023 11:15 AM ACTING TEACHER [facility] Protein, POCT, U Negative Negative mg/dL 04/02/2023 11:15 AM ACTING TEACHER [facility] Nitrites, POCT, U Negative Negative 04/02/2023 11:15 AM ACTING TEACHER [facility] Leukocytes, POCT, U Negative Negative 04/02/2023 11:15 AM ACTING TEACHER [facility] Urine 04/02/2023 11:1 4 AM ACTING TEACHER 04/02/2023 11:15 AM ACTING TEACHER Unknown Provider LAB POCT ORDERABLES - DEVICE POC RST [facility] [address] [place] [address], [facility] PCED [facility] POC [address] [place] [address] * Influenza A, B, RSV, PCR, Rapid (04/02/2023 10:56 AM ACTING TEACHER) Influenza A, PCR, Rapid, V Negative Negative 04/02/2023 11:24 AM ACTING TEACHER [facility] Influenza B, PCR, Rapid, V Negative Negative 04/02/2023 11:24 AM ACTING TEACHER [facility] Resp Synctial Virus, PCR, Rapid Negative Negative 04/02/2023 11:24 AM ACTING TEACHER [facility] Specimen Source Swab, Nasopharynx 04/02/2023 11:24 AM ACTING TEACHER [facility] Swab (Nasopharynx) 04/02/2023 10:56 AM ACTING TEACHER 04/02/2023 11:00 AM ACTING TEACHER Sean Jansen M.D. LAB MICROBIOLOGY - G ENERAL ORDERABLES Performing Organization Address [facility]/ZIP Co de Phone Number [facility] [address] [place] [address], [facility] STMA [facility] [address] [place] [address] * Bacterial Culture, Aerobic + Susceptibility, Urine (04/02/2023 10:54 AM ACTING TEACHER) Urine Culture No growth after 1 day of incubation. 04/03/2023 8:28 AM ACTING TEACHER DTL Urine (Urine, Straight Catheter) 04/02/2023 10:54 AM ACTING TEACHER 04/02/2023 1:27 PM ACTING TEACHER Comment:Specimen Source Site : Urine Sean Jansen M.D. LAB MICROBIOLOGY - G ENERAL ORDERABLES Performing Organization Address City/[facility]/ZIP Co de Phone Number [facility] [address] [place] [address] * Bacteria / Renae Culture, Blood #2 (04/02/2023 10:52 AM ACTING TEACHER) Only the most recent of2 resultswithin the time period is included. Pathologist [facility] Bacteria/Padmini da Culture, Blood No growth after 5 days of incubation. 04/07/2023 12:02 PM ACTING TEACHER DTL Blood (Blood, Peripheral Draw) 04/02/2023 10:52 AM ACTING TEACHER 04/02/2023 11:03 AM ACTING TEACHER Comment:Specimen Source Site : Blood Narrative [facility] - 04/07/2023 12:02 PM ACTING TEACHER Received Bactec Peds bottle Sean Jansen M.D. LAB MICROBIOLOGY - G ENERAL ORDERABLES [facility] [address] [place] [address] * Lactate for Sepsis with Reflex (04/02/2023 10:45 AM ACTING TEACHER) [facility] Lactate, P 1.0 0.5 - 2.2 mmol/L 04/02/2023 11:29 AM ACTING TEACHER [facility] Blood (Blood, Venous) 04/02/2023 10:45 AM ACTING TEACHER 04/02/2023 10:57 AM ACTING TEACHER Sean Jansen M.D. LAB BLOOD NON ADD-ON [facility] [address] [place] [address] * (ABNORMAL) Troponin T, Baseline, 5th gen (04/02/2023 10:10 AM ACTING TEACHER) Pathologist [facility] Troponin T, Baseline, 5th gen 16(H) <=10 ng/L 04/02/2023 10:36 AM ACTING TEACHER [facility] Blood (Blood, Venous) 04/02/2023 10:10 AM ACTING TEACHER 04/02/2023 10:18 AM ACTING TEACHER Sean Jansen M.D. LAB BLOOD TROPONIN Performing Organization Address [facility]/ZIP Co de Phone Number [facility] [address] [place] [address], [facility] STMA [facility] [address] [place] [address] * (ABNORMAL) S-TSH (Thyroid-Stimulating Hormone - Sensitive) (04/02/2023 10:10 AM ACTING TEACHER) TSH, Sensitive 4.7(H) 0.3 - 4.2 mIU/L 04/02/2023 11:09 AM ACTING TEACHER DTL Blood (Blood, Venous) 04/02/2023 10:10 AM ACTING TEACHER 04/02/2023 10:33 AM ACTING TEACHER Sean Jansen M.D. LAB BLOOD ADD-ON Performing Organization Address [facility]/ZIP Co de Phone Number [facility] [address] [place] [address], [facility] DTL [facility] [address] [place] [address] from Last 3 Months Additional Health Concerns Infection Onset Date Last Indicated Protective Environment 04/12/2023 4 Advance Directives For more information, please contact: [phone] * DNR (Latest Code Status on File) Date Activated Date Inactivated Comments 04/02/2023 4:50 PM 04/23/2023 2:38 PM * Full Code Date Activated Date Inactivated Comments 04/02/2023 3:47 PM 04/02/2023 4:50 PM Question Answer Comments Full Code: Not Discussed Due to: Patient does not have the [facility] Care Teams Healthcare Advisory Services Manager Relationship Specialty Start Date End Date Elsewhere, Pcp PCP - General Internal Medicine 05/10/21
--- OUTSIDE RECORDS SUMMARY | 2023-06-13 07:26 | XMS_ITS | Encounter Summary ---
Author Name Unknown Organization [facility] Address [address] [place] [address] Care Team Providers Care Guest Experience Specialist Name Role Phone Elsewhere, Pcp Primary Care Provider Unavailabl e Encounter Details Date Type Department Care Team (Latest Contact Info) Description 05/29/2023 1:50 PM CDT - 05/29/2023 11:59 PM CDT Hospital Encounter Department of Laboratory Medicine in [address] [address] Samir Laureano M.D. [address] [place] [address] Thrombocytopenia (HCC); Hypokalemia; Anemia Macrocytic Discharge Disposition: Home or Self Care Social History Tobacco Use Types Packs/Day Years Used Date Smoking Tobacco: Light Smoker Cigarettes 0.3 14 Started: 962; Last attempted to quit: 09/05/1975 Smokeless Tobacco: Never Comments:Havent smoked since 1975 Alcohol Use Standard Drinks/Week Comments Yes 1 (1 standard drink = 0.6 oz pure alcohol) approximately 1-2 servings of alcohol per 1-2 weeks. [facility] Utilities Answer Date Recorded In the past 12 months has e [employer], gas, oil, or water [employer] threatened to shut off services in your home? No 05/28/2023 Humiliation, Afraid, Rape, and Kick questionnair e [...] How often do you attend chur or zoroastrian services? More than 4 times per year 12/07/2021 Do you belong to any clubs o r organizations such as baptist groups, unions, fraternal [...] Answer Date Recorded PHQ-2 Score 0 06/12/2021 [facility] - Occupational Stress Questionnaire Answer Date Recorded [...] the money to buy more. Never true 05/28/19 24 Within the past 12 months, t he food you bought just didn't last and you didn't have money to get more. Never true 05/28/2023 PRAPARE - Transportation Answer Date Re corded In the past 12 months, has l ack of transportation kept you from medical appointments or from getting medications? No 02/2023 In the past 12 months, has l ack of transportation kept you from meetings, work, or from getting things needed for daily living? No 05/28/2023 Depression Answer Date Recor ded PHQ-9 Total [...] your living situation today? I have a [facility] place to live 05/28/2023 Education Answer Date Recorded What is the highest level of school you have completed or the highest degree you have received? 12th grade 09/21/2020 Sex and Gender Information Value Date Recorded Sex Assigned at Female 12/07/2021 9:06 AM CDT Gender Identity Female 05/10/2021 12:15 PM CDT Sexual Orientation Straight 05/10/2021 12 :15 PM CDT documented as of this encounter Medications at Time of Discharge Medication Sig Dispensed Refills Start Date End Date acetaminophen (TYLENOL) 500 mg tablet Take 500 mg by mouth daily. brimonidine (ALPHAGAN) 0.2 % ophthalmic solution Administer 1 drop into both eyes 3 (three) times a day. buPROPion XL (WELLBUTRIN XL) 150 mg 24 hr tablet Take 150 mg by mouth daily. 02/09/2017 dorzolamide-timoloL (COSOPT) 22.3-6.8 mg/mL ophthalmic solution Administer 1 drop into both eyes 2 (two) times a day. escitalopram (LEXAPRO) 20 mg tablet Take 20 mg by mouth daily. 12/06/2021 ketorolac (ACULAR) 0.5 % ophthalmic solution Administer 1 drop into both eyes 2 (two) times a day. omeprazole (PriLOSEC) [address] capsule Take 20 mg by mouth at bedtime. 06/18/2020 ondansetron ODT (ZOFRAN-ODT) 4 mg disintegrating tablet Dissolve 4 mg in the mouth every 8 (eight) hours as needed for nausea or vomiting. documented as of this encounter Plan of Treatment Upcoming Encounters Date Type Department Care Team (Late st Contact Info) Description 07/09/2023 11:15 AM CDT Clinical Communication Virtual Review in [address] [address] 07/11/2023 1:00 PM CDT Office Visit Department of Neurology in [address] [address] Danita Prabhakar M.D., Ph.D. [address] [place] [phone] documented as of this encounter Procedures Procedure Name Priority Date/Time Associated Diagnosis Comments CBC WITH DIFFERENTIAL, B Routine 05/29/2023 2:06 PM CDT Thrombocytopenia (HCC) Hypokalemia Anemia Macrocytic COMPREHENSIVE METABOLIC PANEL, S/P Routine 05/29/2023 2:06 PM CDT Thrombocytopenia (HCC) Hypokalemia Anemia Macrocytic documented in this encounter Results * Comprehensive Metabolic Panel (05/29/2023 2:06 PM CDT) Potassium, P 5.1 3.6 - 5.2 mmol/L [...] CDT Samir Laureano M.D. LAB BLOOD ADD-ON [facility] [address] [place] [id number], [facility] CNFL [facility] in [address] [address] * (ABNORMAL) CBC with Differential, Blood (05/29/2023 2:06 PM CDT) Hemoglobin 12.2 11.6 - 15.0 g/dL 05/29/2023 [...] CDT Samir Laureano M.D. LAB BLOOD ADD-ON [facility] [address] [place] [id number], [facility] CNFL [facility] in [address] [address] documented in this encounter Visit Diagnoses Diagnosis Thrombocytopenia (HCC) Hypokalemia Anemia Macrocytic documented in this encounter Additional Health Concerns Infection Onset Date Last Indicated Resolved Time Protective Environment 04/12/2023 04/12/2023 Assessment Noted Time PHQ-9 Depression Total Score: 5 06/13/19 22 6:15 PM CDT documented as of this encounter Care Teams Guest Experience Specialist Relationship Specialty Start Date End Date Elsewhere, Pcp PCP - General Internal Medicine 05/10/21 documented as of this encounter
--- OUTSIDE RECORDS SUMMARY | 2023-06-13 07:26 | XMS_ITS | Encounter Summary ---
Author Name Unknown Organization [facility] Address [address] [place] [address] Care Team Providers Care Driver Messenger Name Role Phone Elsewhere, Pcp Primary Care Provider Unavailabl e Reason for Referral * MRI/CAT/PET Scan (Routine) - Closed Specialty Diagnoses / Procedures Referred By Nadirac t Referred To Contact Diagnoses Thrombocytopenia (HCC) Hypokalemia Anemia Macrocytic Procedures PET CT Skull to Thigh FDG Samir Laureano M.D. [address] [place] [address] [facility] Referral ID Status Reason Start Date Expiration Date Visits Re quested Visits Authorized [id number] Closed 04/19/2023 04/18/2024 1 1 Reason for Visit * MRI/CAT/PET Scan (Routine) - Closed Specialty Diagnoses / Procedures Referred By Rodolfo hyman Referred To Contact Diagnoses Thrombocytopenia (HCC) Hypokalemia Anemia Macrocytic Procedures PET CT Skull to Thigh FDG Samir Laureano M.D. [address] [place] [address] [facility] Referral ID Status Reason Start Date Expiration Date Visits Re quested Visits Authorized [id number] Closed 04/19/2023 04/18/2024 1 1 Encounter Details Date Type Department Care Team (Latest Contact Info) Description 05/25/2023 7:40 AM CDT - 05/25/2023 11:59 PM CDT Hospital Encounter Department of Radiology, [facility], in [place], [place] [address] [place] [address] Samir Laureano M.D. [address] [place] [address] Thrombocytopenia (HCC); Hypokalemia; Anemia Macrocytic Discharge Disposition: [...] 1-2 servings of alcohol per 1-2 weeks. [facility] VANCLities Answer Date Recorded In the past 12 months has e [employer], gas, oil, or water [employer] threatened to shut off services in your home? No 04/02/2023 Humiliation, Afraid, Rape, and Kick questionnair e [...] How often do you attend chur or episcopal services? More than 4 times per year 12/07/2021 Do you belong to any clubs o r organizations such as jew groups, unions, fraternal [...] Answer Date Recorded PHQ-2 Score 0 06/12/2021 [facility] - Occupational Stress Questionnaire Answer Date Recorded [...] to strenuous exercise (like a brisk walk)? 0 days 12/07/2021 On average, how many minutes do you engage in exercise at this level? 0 min 12/07/2021 Hunger Vital Sign Answer Date Recorded Within the past 12 months, y ou worried that your food would run out before you got the money to buy more. Never true 04/02/19 24 Within the past 12 months, t he food you bought just didn't last and you didn't have money to get more. Never true 04/02/2023 PRAPARE - Transportation Answer Date Re corded In the past 12 months, has l ack of transportation kept you from medical appointments or from getting medications? No 06/2023 In the past 12 months, has l ack of transportation kept you from meetings, work, or from getting things needed for daily living? No 04/02/2023 Depression Answer Date Recor ded PHQ-9 Total Score (max 27) 5 06/12 Nutrition Answer Date Recorded Nutrition: EVOO Fat Source Yes 12/07 On average, how many serving s of fruits and vegetables do you eat per day (serving size is equal to 1 cup or approximately the size of a tennis ball)? 2-3 12/07/2021 Dental Answer Date Recorded Dental: Regular Dentist Yes 09/22/19 21 Employment Answer Date Recorded Employment status Retired 12/07/2021 Housing Stability Answer Date Recorded What is your living situation today? I have a [facility] place to live 04/02/2023 Education Answer Date Recorded What is the [...] AM CDT Clinical Communication Virtual Review in [address] [address] 07/11/2023 1:00 PM CDT Office Visit Department of Neurology in [place], [place] [address] [place] [address] Danita Prabhakar M.D., Ph.D. [address] [place] [address] documented as of this encounter Procedures Procedure Name Priority Date/Time Associated Diagnosis Comments PET CT SKULL TO THIGH RAD - Routine (most inpatients and all outpatients) 05/25/2023 9:17 AM CDT Thrombocytopenia (HCC) Hypokalemia Anemia Macrocytic documented in this encounter Results * PET CT Skull to Thigh FDG (05/25/2023 9:17 AM CDT) Anatomical Region Laterality Modality Body, Nuclear Medicine [...] RADIOPHARMACEUTICAL/MEDS: Route: intravenous fludeoxyglucose F 18 injection CUSTODIAL (FDG F-18),9.77 millicurie TECHNIQUE: ??F-18 FDG PET/CT [...] RADIOPHARMACEUTICAL/MEDS: Route: intravenous fludeoxyglucose F 18 injection CUSTODIAL (FDG F-18),9.77 millicurie TECHNIQUE: F-18 FDG PET/CT [...] Deauville score 1. Samir CHAPA [place] PROCEDURES documented in this encounter Visit Diagnoses Diagnosis Thrombocytopenia (HCC) Hypokalemia Anemia Macrocytic documented in this encounter Administered Medications Inactive Administered Medications - up to 3 most recent administrations Medication Order MAR Action Action Date Dose Rate Site fludeoxyglucose F 18 injection CUSTODIAL (FDG F-18) 4.5-16.5 millicurie, intravenous, Once, On Sun05/25/23 at 0830, For 1 dose, Imaging Protocol Orders Given 05/25/2023 8:00 AM CDT 9.77 millicuries Right Antecubital documented in this encounter Additional Health Concerns Infection Onset Date Last Indicated Resolved Time Protective Environment 04/12/2023 04/12/2023 Assessment Noted Time PHQ-9 Depression Total Score: 5 06/13/19 22 6:15 PM CDT documented as of this encounter Care Teams Driver Messenger Relationship Specialty Start Date End Date Elsewhere, Pcp PCP - General Internal Medicine 05/10/21 documented as of this encounter
--- OUTSIDE RECORDS SUMMARY | 2023-06-13 07:26 | XMS_ITS | Encounter Summary ---
Author Name Unknown Organization [facility] Address [address] [place] [address] Care Team Providers Care Identifier Horse Name Role Phone Elsewhere, Pcp Primary Care Provider Unavailabl e Reason for Referral * Outpatient (Routine) - Authorized Specialty Diagnoses / Procedures Referred By Rodolfo t Referred To Contact Hematology Oncology Claudia Garcia M.D. [address] [place] [phone] [facility] Referral ID Status Reason Start Date Expiration Date V isits Requested Visits Authorized [id number] Authorized 06/01/2023 11/30/2024 1 1 Scheduling Instructions Schedule with primary tape cutter, Dr. Albarran Encounter Details Date Type Department Care Team (Late st Contact Info) Description 06/01/2023 9:30 AM CDT Office Visit Division of Hematology in [place], [place] [address] [place] [phone] Claudia Garcia M.D. [address] [place] [phone] Marginal Zone Lymphoma Splenic (HCC) (Primary Dx) Social History Tobacco Use Types Packs/Day Years Used Date Smoking Tobacco: Light Smoker Cigarettes 0.3 14 Started: 962; Last attempted to quit: 09/05/1975 Smokeless Tobacco: Never Comments:Havent smoked since 1975 Alcohol Use Standard Drinks/Week Comments Yes 1 (1 standard drink = 0.6 oz pure alcohol) approximately 1-2 servings of alcohol per 1-2 weeks. [facility] Utilities Answer Date Recorded In the past 12 months has th e [employer], gas, oil, or water company threatened to shut off services in your [...] week 12/07/2021 How often do you attend [facility] or sikh services? More than 4 times per year 12/07/2021 Do you belong to any clubs o r organizations such as latter-day groups, unions, fraternal [...] Answer Date Recorded PHQ-2 Score 0 06/12/2021 [facility] Occupat ional Health - Occupational Stress [...] your living situation today? I have a [facility] place to live 05/31/2023 Education Answer Date Recorded What is the highest level of school you have completed or the highest degree you have received? 12th grade 09/21/2020 Sex and Gender Information Value Date Recorded Sex Assigned at Female 12/07/2021 9:06 AM CDT Gender Identity Female 05/10/2021 12:15 PM CDT Sexual Orientation Straight 05/10/2021 12 :15 PM CDT documented as of this encounter Last Filed Vital Signs Vital Sign Reading Time Taken Comments Blood Pressure 155/89 06/01/2023 9:29 AM CDT Pulse 90 06/01/2023 9:29 AM CDT Temperature 36 ??C (96.8 ??F) 06/01/2023 9:29 AM CDT Respiratory Rate - - Oxygen Saturation - - Inhaled Oxygen Concentration - - Weight 53 kg (116 lb 13.5 oz) 06/01/2023 9:29 AM CDT Height 149 cm (4' 10.66) 06/01/2023 9:29 AM CDT Body Mass Index 23.87 06/01/2023 9:29 AM CDT documented in this encounter Progress Notes * Claudia Garcia M.D. - 06/01/2023 9:30 AM CDT DEMOGRAPHIC INFORMATION Patient Name: Darcy Colon Birthdate: 1940 Sex: female [phone] (home) Address: [address] [place] [address] Dr Mejia [facility] [phone] SUBJECTIVE CHIEF COMPLAINT/PURPOSE OF VISIT Primary [facility] Fellow: Minerva Albarran; seen on C calendar [facility] [employer] Or Pasture Farm Manager: Dr. Sevilla Supervising [facility] [employer] Pasture Farm Manager: Dr. Roy PCP: ELSEWHERE, PCP HISTORY OF PRESENT ILLNESS Darcy Colon is a 82 y.o. female with the following history. 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 The significance of this finding is uncertain. It does not necessarily indicate involvement by a lymphoproliferative disorder. B-cells: Monotypic kappa Express: CD19, CD20, CD22, CD23, CD200. Do not express: CD5, CD10, CD38, CD11c, CD103. 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 04/06/2023 Critical Imaging PET/CT IMPRESSION: 1. Moderately FDG avid splenomegaly and diffuse bone marrow activity suspicious for a lymphoproliferative process. No FDG avid lymphadenopathy or other PET/CT evidence of malignancy. 2. Moderate left pelvocaliectasis with retention of excreted FDG activity in the collecting system to the level of the left UPJ, potentially secondary to an at least partial obstruction as a result of splenomegaly with associated mass effect and anterior displacement of the kidney. Could consider nuclear medicine MAG3 renal scan with Lasix in further workup if clinically indicated. 3. Small bilateral pleural effusions. 04/13/2023 - 05/10/2023 Chemotherapy RiTUXimab Weekly ( Lymphoma ) Start Date: 04/13/2023 Christa is seen today in [facility] follow up to discuss surveillance for splenic marginal zone lymphoma. She is doing very well. Her appetite and energy has improved. Her abdominal pain has entirely resolved. She clarifies that she was initially very symptomatic at time of diagnosis: she had no appetite, significant stomach pain with associated nausea and vomiting, poor appetite and generally felt sick. These symptoms have resolved, and she now feels very well. REVIEW OF SYSTEMS A complete 10 point systems review was performed and negative except as noted above in the HPI. 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) Hypertension Essential Primary Gastroesophageal Reflux Disease Without Esophagitis Glaucoma Anxiety Disorder Unspecified Osteoarthritis Anemia In Neoplastic Disease Thrombocytopenia (HCC) Lentigo Elevated Creatinine Nausea And Vomiting Dysphagia SOCIAL HISTORY Social History Tobacco Use Smoking status: Light Smoker Packs/day: 0.25 Years: 14.00 Additional pack years: 0.00 Total pack years: 3.50 Types: Cigarettes Last attempt to quit: 09/05/1975 Years since quittin.7 Smokeless tobacco: Never Tobacco comments: Havent smoked since 1975 Vaping Use Vaping Use: never used Substance Use Topics Alcohol use: Yes Alcohol/week: 1.0 standard drink of alcohol Types: 1 Standard drinks or equivalent per week Comment: approximately 1-2 servings of alcohol per 1-2 weeks. Drug use: Never FAMILY HISTORY family history includes Breast cancer in her sister; Dementia in her father; Depression in her sister; Prostate cancer in her brother. ALLERGIES No Known Allergies MEDICATIONS Current Outpatient Medications Medication Sig Dispense Refill acetaminophen (TYLENOL) 500 mg tablet Take 500 mg by mouth daily. brimonidine (ALPHAGAN) 0.2 % ophthalmic solution Administer 1 drop into both eyes 3 (three) times aday. buPROPion XL (WELLBUTRIN XL) 150 mg 24 hr tablet Take 150 mg by mouth daily. dorzolamide-timoloL (COSOPT) 22.3-6.8 mg/mL ophthalmic solution Administer 1 drop into both eyes 2 (two) times a day. escitalopram (LEXAPRO) 20 mg tablet Take 20 mg by mouth daily. ketorolac (ACULAR) 0.5 % ophthalmic solution Administer 1 drop into both eyes 2 (two) times a day. omeprazole (PriLOSEC) [address] capsule Take 20 mg by mouth at bedtime. ondansetron ODT (ZOFRAN-ODT) 4 mg disintegrating tablet Dissolve 4 mg in the mouth every 8 (eight) hours as needed for nausea or vomiting. OBJECTIVE VITALS Vitals: 06/01/23 0929 BP: 155/89 Pulse: 90 Temp: 36 ??C Wt Readings from Last 3 Encounters: 06/01/23 53 kg 04/27/23 51.8 kg 04/21/23 47.7 kg BMI Readings from Last 3 Encounters: 06/01/23 23.87 kg/m?? 04/27/23 23.07 kg/m?? 04/21/23 21.24 kg/m?? PHYSICAL EXAMINATION General: No acute distress, cooperative. HEENT: Normocephalic, extra-ocular motion and vision are grossly intact, hearing grossly intact. Nolymphadenopathy. Cardiovascular: Regular rate, no peripheral edema appreciated, warm and well perfused. Chest/Pulmonary: No coughing or wheezing, on room air, normal work of breathing. Abdominal: Soft, non-tender to palpation. No splenomegaly. No hepatomegaly. Neurological: Alert, oriented to self and situation, ambulating LABS Reviewed IMAGING Reviewed; PET with complete response PET CT Skull to Thigh FDG Result Date: 05/25/2023 Impression: Complete metabolic response. No evidence of FDG avid residual or recurrent metastatic disease. Deauville score 1. 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 Colon is an 82 y/o woman with recently diagnosed splenic marginal zone lymphoma, stage IV given marrow involvement (vs. Lymphoplasmacytic lymphoproliferative disorder), who was diagnosed after presenting with abdominal pain, nausea, and vomiting, found to have massive splenomegaly and 70% bone marrow involvement. She received 4 doses weekly rituximab, and achieved a complete response with PET demonstrating Deauville 1. She returns today to discuss surveillance schedule. Discussed that her PET shows an excellent complete response, with Deauville 1. This correlates withher significant symptomatic improvement, and, given her known marrow involvement at time of diagnosis, correlates with her improving cytopenias. She can now transition to a surveillance schedule. Recommend that she follow with her primary fellow, Dr. Albarran, for H&P and labs including CBC. As she was symptomatic with cytopenias at diagnosis, anticipate that she could be followed clinically and with labs. If she becomes symptomatic or cytopenias worsen, would have low threshold for imaging with CT chest/abdomen/pelvis. Would not use PET-CT for surveillance imaging. If her primary fellow wishes to proceed with imaging, would consider CT c/a/p every 6 months for the first 1-2 years, then not more than annually. PLAN: Follow up with Dr. Albarran in 3months with CBC, CMP prior #1 Marginal Zone Lymphoma Splenic (HCC) - CBC with Differential, Blood; Future; Expected date: 08/31/2023 - Comprehensive Metabolic Panel; Future; Expected date: 08/31/2023 - LD (Lactate Dehydrogenase); Future; Expected date: 08/31/2023 Other orders - Hematology office visit (clinic) [facility]; Lymphoma; General; Future; Expected date: 08/31/2023 Total time of encounter: 35 minutes, over 50% of which was spent in counseling and coordination of care. PATIENT EDUCATION Patient ready to learn, no apparent learning barriers were identified; learning preferences includelistening. Explained diagnosis and treatment plan; patient expressed understanding of the content. Additional material can be found at: https://www.cancer.gov/publications https://www.hematology.org/education https://www.nhlbi.nih.gov/education/blood https://www.nhlbi.nih.gov/education/blood/ausxcxbdb-wmt-jvawkmuv-caregivers It was my pleasure to care for Darcy Colon today. Claudia Garcia M.D. Fellow, Hematology and Medical Oncology documented in this encounter Plan of Treatment Upcoming Encounters Date Type Department Care Team (Late st Contact Info) Description 07/09/2023 11:15 AM CDT Clinical Communication Virtual Review in [place], [place] 200 [place] [address] 07/11/2023 1:00 PM CDT Office Visit Department of Neurology in [address] [phone] Danita Prabahkar M.D., Ph.D. [address] [place] [phone] Scheduled Orders Name Type Priority Associated Diagnoses Orde r Schedule CBC with Differential, Blood Lab Routine Marginal Zone Lymphoma Splenic (HCC) Expected: 08/31/2023, Expires: 08/30/2024 Comprehensive Metabolic Panel Lab Routine Marginal Zone Lymphoma Splenic (HCC) Expected: 08/31/2023, Expires: 08/30/2024 LD (Lactate Dehydrogenase) Lab Routine Marginal Zone Lymphoma Splenic (HCC) Expected: 08/31/2023, Expires: 08/30/2024 Scheduled Referrals Name Type Priority Associated Diagnoses Order Schedule Hematology office visit (clinic) [place]; Lymphoma; General Outpatient Referral Routine Expected: 08/31/2023, Expires: 08/30/2024 documented as of this encounter Visit Diagnoses Diagnosis Marginal Zone Lymphoma Splenic (HCC)- Primary documented in this encounter Additional Health Concerns Infection Onset Date Last Indicated Resolved Time Protective Environment 04/12/2023 04/12/2023 Assessment Noted Time PHQ-9 Depression Total Score: 5 06/13/19 22 6:15 PM CDT documented as of this encounter Care Teams Identifier Horse Relationship Specialty Start Date End Date Elsewhere, Pcp PCP - General Internal Medicine 05/10/21 documented as of this encounter
--- OUTSIDE RECORDS SUMMARY | 2023-06-13 07:26 | XMS_ITS | Encounter Summary ---
Author Name Unknown Organization [facility] Address [address] [place] [address] Care Team Providers Care Painting Department Supervisor Name Role Phone Elsewhere, Pcp Primary Care Provider Unavailabl e Reason for Visit * Episode Based Medications (Routine) - Closed Specialty Diagnoses / Procedures Referred By Contbi t Referred To Contact Diagnoses Marginal Zone Lymphoma Splenic (HCC) Satnam Lema M.B.B.S. [address] [place] [address] Rst Hem May [address] [place] [address] Referral ID Status Reason Start Date Expiration Date Visits Re quested Visits Authorized [id number] Closed 04/12/2023 04/11/2025 99 99 Encounter Details Date Type Department Care Team (Latest Contact Info) Description 05/04/2023 10:30 AM ROOMS DIRECTOR Infusion Department of Infusion Therapy in [place], [place] [address] [place] [phone] Samir Laureano M.D. [address] [place] [phone] Lymphoplasmacytic Lymphoma (HCC) (Primary Dx) Social History Tobacco Use Types Packs/Day Years Used Date Smoking Tobacco: Light Smoker Cigarettes 0.3 14 Started: 962; Last attempted to quit: 09/05/1975 Smokeless Tobacco: Never Comments:Havent smoked since 1975 Alcohol Use Standard Drinks/Week Comments Yes 1 (1 standard drink = 0.6 oz pure alcohol) approximately 1-2 servings of alcohol per 1-2 weeks. [facility] Utilities Answer Date Recorded In the past 12 months has th e [employer], gas, oil, or water company threatened to [...] week 12/07/2021 How often do you attend [facility] or [facility] services? More than 4 times per year 12/07/2021 Do you belong to any clubs o r organizations such as sikhism groups, unions, fraternal [...] Answer Date Recorded PHQ-2 Score 0 06/12/2021 [facility] [place] [facility] Occup[facility] ional Health - Occupational Stress [...] have a [facility] place to live 04/02/2023 Education Answer Date [...] Sign Reading Time Taken Comments Blood Pressure 129/58 05/04/2023 1:06 PM ROOMS DIRECTOR Pulse 67 05/04/2023 1:06 PM ROOMS DIRECTOR Temperature 36.6 ??C (97.9 ??F) 05/04/2023 1:06 PM CS T Respiratory Rate 18 05/04/2023 1:06 PM ROOMS DIRECTOR Oxygen Saturation - - Inhaled Oxygen Concentration - - Weight - - Height - - Body Mass Index - - documented in this encounter Plan of Treatment Upcoming Encounters Date Type Department Care Team (Late st Contact Info) Description 07/09/2023 11:15 AM CDT Clinical Communication Virtual Review in [place], [place] 200 [place] [address] 07/11/2023 1:00 PM CDT Office Visit Department of Neurology in [place], [place] [address] [place] [phone] Danita Prabhakar M.D., Ph.D. [address] [place] [phone] documented as of this encounter Visit Diagnoses Diagnosis Lymphoplasmacytic Lymphoma (HCC)- Primary documented in this encounter Administered Medications Inactive Administered Medications - up to 3 most recent administrations Medication Order MAR Action Action Date Dose Rate Site acetaminophen tablet 650 mg (TYLENOL) 650 mg, oral, Once, On Sun05/04/23 at 1100, For 1 dose, Administer 30 minutes prior to riTUXimab. Given 05/04/2023 10:40 AM ROOMS DIRECTOR 650 mg diphenhydrAMINE injection 25 mg (BENADRYL) 25 mg, intravenous, Once, On Sun05/04/23 at 1100, For 1 dose, Administer 30 minutes prior to riTUXimab. Given 05/04/2023 10:48 AM ROOMS DIRECTOR 25 mg riTUXimab-abbs 600 mg in NaCl 0.9% IVPB (TRUXIMA) 600 mg (rounded from 566.25 mg = 375 mg/m2 ? 1.51 m2 Treatment Plan BSA from Measured weight), intravenous, Once, On Sun05/04/23 at 1130, For 1 dose, 90-minute infusion: 20% of the dose administered in the first 30 minutes, remaining 80% administered over 60 minutes. Or proceed with initial rate of 100 mg/hr and increase by 100 mg/hr every 30 minutes to a maximum of 400 mg/hr., Restriction Criteria (Pharmacy will review and approve if criteria met): Meets rituximab algorithm criteria Rate/Dose Change 05/04/2023 11:49 AM ROOMS DIRECTOR 480 mL/hr New Bag 05/04/2023 11:12 AM ROOMS DIRECTOR 600 mg 120 mL/hr sodium chloride 0.9 % injection 3 mL 3 mL, intra-catheter, As needed, line care, Starting on Sun05/04/23 at 1054, Prior to and following infusion and between multiple consecutive infusions. Given 05/04/2023 1:09 PM ROOMS DIRECTOR 3 mL Given 05/04/2023 10:55 AM ROOMS DIRECTOR 3 mL Given 05/04/2023 10:50 AM ROOMS DIRECTOR 3 mL documented in this encounter Additional Health Concerns Infection Onset Date Last Indicated Resolved Time Protective Environment 04/12/2023 04/12/2023 Assessment Noted Time PHQ-9 Depression Total Score: 5 06/13/19 22 6:15 PM CDT documented as of this encounter Care Teams Painting Department Supervisor Relationship Specialty Start Date End Date Elsewhere, Pcp PCP - General Internal Medicine 05/10/21 documented as of this encounter
--- OUTSIDE RECORDS SUMMARY | 2023-06-13 07:26 | XMS_ITS ---
Author Name Unknown Organization [facility] Address [address] [place] [address] Care Team Providers Care Farmworker Poultry Name Role Phone Unavailable Unavailable Unavailable Surgery Details Not on file Complications Check Surgery Details section. Procedure Estimated Blood Loss Check Surgery Details section. Procedure Findings Check Surgery Details section. Procedure Specimens Taken Check Surgery Details section.
--- OUTSIDE RECORDS SUMMARY | 2023-06-13 07:26 | XMS_ITS ---
Author Name Unknown Organization [facility] Address [address] [place] [address] Care Team Providers Care Master Hearth Technician Name Role Phone Elsewhere, Pcp Primary Care Provider Unavailabl e Active Problems Problem Noted Date Diagnosed Date [...] Female Left 017 Hypertension Essential Primary 06/22/2016 Current Oncology Plans Vascular Access Patency - Peripheral Intravenous Catheter and Rapid Infusion Catheter* Plan Start Date:04/27/2023 Linked Problems Marginal Zone Lymphoma Splen ic (HCC) Treatment Medications No medications scheduled. Past Plans Hematology / Oncology Treatment 1 Plan Name Start Date Discontinue Date Treatment Medications Discontinue Reason Plan Provider Cycles RiTUXimab Weekly ( Lymphoma ) 04/13/2023 05/26/2023 riTUXimab-abbs (TRUXIMA) IVPB (RESTRICTED) (RITUXAN) Therapy Complete Satnam Lema M.B.B.S. 1 of 1 cycle started Radiation Treatments * No radiation treatments are documented for this patient in [facility]. Treatments may have been administered in another system. Resolved Problems Problem Noted Date Diagnosed Date [...]
--- OUTSIDE RECORDS SUMMARY | 2023-06-13 07:26 | XMS_ITS | Encounter Summary ---
Author Name Unknown Organization [facility] Address [address] [place] [address] Care Team Providers Care Polysom Tech Name Role Phone Elsewhere, Pcp Primary Care Provider Unavailabl e Encounter Details Date Type Department Care Team (Late st Contact Info) Description 05/30/2023 Orders Only Department of Oncology in [place], [place] [address] [place] [phone] Denise Abraham M.D. [address] [place] [phone] Social History Tobacco Use Types Packs/Day Years Used Date Smoking Tobacco: Light Smoker Cigarettes 0.3 14 Started: 962; Last attempted to quit: 09/05/1975 Smokeless Tobacco: Never Comments:Havent smoked since 1975 Alcohol Use Standard Drinks/Week Comments Yes 1 (1 standard drink = 0.6 oz pure alcohol) approximately 1-2 servings of alcohol per 1-2 weeks. [facility] Utilities Answer Date Recorded In the past 12 months has [facility] [employer], gas, oil, or water [employer] threatened to shut off services in your [...] How often do you attend chur or yarsani services? More than 4 times per year 12/07/2021 Do you belong to any clubs o r organizations such as samaritan groups, unions, fraternal [...] Answer Date Recorded PHQ-2 Score 0 06/12/2021 [facility] Occupat ional Health - Occupational Stress [...] Date Recorded Dental: Regular Dentist Yes 09/22/19 Employment Answer Date Recorded Employment status Retired 05/28/2023 Housing Stability Answer Date Recorded What is your living situation today? I have a [facility] place to live 05/31/2023 Education Answer [...] PM CDT documented as of this encounter Plan of Treatment Upcoming Encounters Date Type Department Care Team (Late st Contact Info) Description 07/09/2023 11:15 AM CDT Clinical Communication Virtual Review in [place], [place] [address] [place] [address] 07/11/2023 1:00 PM CDT Office Visit Department of Neurology in [place], [place] [address] [place] [address] Danita Prabhakar M.D., Ph.D. [address] [place] [address] documented as of this encounter Visit Diagnoses Not on filedocumented in this encounter Additional Health Concerns Infection Onset Date Last Indicated Resolved Time Protective Environment 04/12/2023 04/12/2023 Assessment Noted Time PHQ-9 Depression Total Score: 5 06/13/19 22 6:15 PM CDT documented as of this encounter Care Teams Polysom Tech Relationship Specialty Start Date End Date Elsewhere, Pcp PCP - General Internal Medicine 05/10/21 documented as of this encounter
--- OUTSIDE RECORDS SUMMARY | 2023-06-13 07:26 | XMS_ITS | Encounter Summary ---
Author Name Unknown Organization [facility] Address [address] [place] [address] Care Team Providers Care Glass Presser Name Role Phone Elsewhere, Pcp Primary Care Provider Unavailabl e Reason for Visit * Episode Based Medications (Routine) - Closed Specialty Diagnoses / Procedures Referred By Rodolfo t Referred To Contact Diagnoses Marginal Zone Lymphoma Splenic (HCC) Satnam Lema M.B.B.S. [address] [place] [address] [address] Hem May [address] [place] [address] Referral ID Status Reason Start Date Expiration Date Visits Re quested Visits Authorized [id number] Closed 04/12/2023 04/11/2025 99 99 Encounter Details Date Type Department Care Team (Latest Contact Info) Description 04/27/2023 8:20 AM NEWS LIBRARY DIRECTOR - 04/27/2023 11:59 PM [facility] Hospital Encounter Department of Laboratory Medicine and Pathology, [facility] in [place], [place] [address] [place] [phone] Samir Laureano M.D. [address] [place] [phone] Lymphoplasmacytic Lymphoma (HCC) Discharge Disposition: Home or Self Care Social History Tobacco Use Types Packs/Day Years Used Date Smoking Tobacco: Light Smoker Cigarettes 0.3 14 Started: 962; Last attempted to quit: 09/05/1975 Smokeless Tobacco: Never Comments:Havent smoked since 1975 Alcohol Use Standard Drinks/Week Comments Yes 1 (1 standard drink = 0.6 oz pure alcohol) approximately 1-2 servings of alcohol per 1-2 weeks. [facility] Utilities Answer Date Recorded In the past 12 months has e [employer], gas, oil, or water [employer] threatened to shut off services in your [...] 12/07/2021 How often do you attend chur ch or anglican services? More than 4 times per year 12/07/2021 Do you belong to any clubs o r organizations such as mu-ism groups, unions, fraternal or athletic groups, or [...] Answer Date Recorded PHQ-2 Score 0 06/12/2021 [facility] of Occupat ional Health - Occupational Stress [...] hours as needed for nausea or vomiting. pyridoxine, vitamin B6, (B-6) 100 mg tablet Take 1 tablet (100 mg total) by mouth daily. 30 tablet 04/24/2023 05/24/2023 thiamine (VITAMIN B1) 100 mg tablet Take 1 tablet (100 mg total) by mouth daily. 30 tablet 04/24/2023 05/24/2023 documented as of this encounter Plan of Treatment Upcoming Encounters Date Type Department Care Team (Late st Contact Info) Description 07/09/2023 11:15 AM CDT Clinical Communication Virtual Review in [place], [place] [address] [place] [address] 07/11/2023 1:00 PM CDT Office Visit Department of Neurology in [address] [phone] Danita Prabhakar M.D., Ph.D. [address] [place] [address] documented as of this encounter Procedures Procedure Name Priority Date/Time Associated Diagnosis Comments CBC CHEMO - NO ALERTS Routine 04/27/2023 8:35 AM NEWS LIBRARY DIRECTOR Lymphoplasmacytic Lymphoma (HCC) documented in this encounter Results * (ABNORMAL) CBC, Chemotherapy, No Alerts (04/27/2023 8:35 AM NEWS LIBRARY DIRECTOR) Pathologist [facility] Hemoglobin 10.8(L) 11.6 - 15.0 g/dL 04/27/2023 9:06 AM NEWS LIBRARY DIRECTOR DTL Platelet Count 175 157 - 371 x10(9)/L 04/27/2023 9:06 AM NEWS LIBRARY DIRECTOR DTL Leukocytes 4.2 3.4 - 9.6 x10(9)/L 04/27/2023 9:06 AM NEWS LIBRARY DIRECTOR DTL Neutrophils 2.26 1.56 - 6.45 x10(9)/L 04/27/2023 9:06 AM NEWS LIBRARY DIRECTOR PM Blood (Blood, Venous) 04/27/2023 8:35 AM NEWS LIBRARY DIRECTOR 04/27/2023 8:58 AM NEWS LIBRARY DIRECTOR Samir Laureano M.D. LAB BLOOD ADD-ON [facility] [address] [place] [address], [facility] [address] [place] [address] DHPM [facility] [address] [place] [address] documented in this encounter Visit Diagnoses Diagnosis Lymphoplasmacytic Lymphoma (HCC) documented in this encounter Additional Health Concerns Infection Onset Date Last Indicated Resolved Time Protective Environment 04/12/2023 04/12/2023 Assessment Noted Time PHQ-9 Depression Total Score: 5 06/13/19 22 6:15 PM CDT documented as of this encounter Care Teams Glass Presser Relationship Specialty Start Date End Date Elsewhere, Pcp PCP - General Internal Medicine 05/10/21 documented as of this encounter
--- OUTSIDE RECORDS SUMMARY | 2023-06-13 07:26 | XMS_ITS | Encounter Summary ---
Author Name Unknown Organization [facility] Address [address] [place] [address] Care Team Providers Care Compliance Auditor Name Role Phone Elsewhere, Pcp Primary Care Provider Unavailabl e Reason for Visit * Episode Based Medications (Routine) - Closed Specialty Diagnoses / Procedures Referred By Rodolfo t Referred To Contact Diagnoses Marginal Zone Lymphoma Splenic (HCC) Satnam Lema M.B.B.S. [address] [place] [address] [address] Hem May [address] [place] [address] Referral ID Status Reason Start Date Expiration Date Visits Re quested Visits Authorized [id number] Closed 04/12/2023 04/11/2025 99 99 Encounter Details Date Type Department Care Team (Latest Contact Info) Description 05/04/2023 8:18 AM ELECTRICAL AND INSTRUMENTATION MANAGER - 05/04/2023 11:59 PM [facility] Hospital Encounter Department of Laboratory Medicine and Pathology, [facility] in [place], [place] [address] [place] [phone] Samir Laureano M.D. [address] [place] [phone] Lymphoplasmacytic Lymphoma (HCC) Discharge Disposition: Home or Self Care Social History Tobacco Use Types Packs/Day Years Used Date Smoking Tobacco: Light Smoker Cigarettes 0.3 14 Started: 962; Last attempted to quit: 09/05/1975 Smokeless Tobacco: Never Comments:Havent smoked since 1975 Alcohol Use Standard Drinks/Week Comments Yes 1 (1 standard drink = 0.6 oz pure alcohol) approximately 1-2 servings of alcohol per 1-2 weeks. [facility] Utilities Answer Date Recorded In the past 12 months has e [employer], gas, oil, or water [employer] threatened to shut off services in your [...] often do you attend chur ch or spiritism services? More than 4 times per year 12/07/2021 Do you belong to any clubs o r organizations such as worship groups, unions, fraternal or athletic groups, or [...] Answer Date Recorded PHQ-2 Score 0 06/12/2021 [facility] Occupat ional Health - [...] AM CDT Clinical Communication Virtual Review in [place], [place] [address] [place] [address] 07/11/2023 1:00 PM CDT Office Visit Department of Neurology in [address] [phone] Danita Prabhakar M.D., Ph.D. [address] [place] [address] documented as of this encounter Procedures Procedure Name Priority Date/Time Associated Diagnosis Comments CBC CHEMO - NO ALERTS Routine 05/04/2023 8:27 AM ELECTRICAL AND INSTRUMENTATION MANAGER Lymphoplasmacytic Lymphoma (HCC) documented in this encounter Results * (ABNORMAL) CBC, Chemotherapy, No Alerts (05/04/2023 8:27 AM ELECTRICAL AND INSTRUMENTATION MANAGER) Pathologist [facility] Hemoglobin 12.1 11.6 - 15.0 g/dL 05/04/2023 9:04 AM ELECTRICAL AND INSTRUMENTATION MANAGER DTL Platelet Count 124(L) 157 - 371 x10(9)/L 05/04/2023 9:04 AM ELECTRICAL AND INSTRUMENTATION MANAGER DTL Leukocytes 3.9 3.4 - 9.6 x10(9)/L 05/04/2023 9:04 AM ELECTRICAL AND INSTRUMENTATION MANAGER DTL Neutrophils 1.72 1.56 - 6.45 x10(9)/L 05/04/2023 9:04 AM ELECTRICAL AND INSTRUMENTATION MANAGER PM Blood (Blood, Venous) 05/04/2023 8:27 AM ELECTRICAL AND INSTRUMENTATION MANAGER 05/04/2023 8:46 AM ELECTRICAL AND INSTRUMENTATION MANAGER Samir Laureano M.D. LAB BLOOD ADD-ON [facility] [address] [place] [address], [facility] DTL [facility] [address] [place] [address] DHPM [facility] [address] [place] [address] documented in this encounter Visit Diagnoses Diagnosis Lymphoplasmacytic Lymphoma (HCC) documented in this encounter Additional Health Concerns Infection Onset Date Last Indicated Resolved Time Protective Environment 04/12/2023 04/12/2023 Assessment Noted Time PHQ-9 Depression Total Score: 5 06/13/19 22 6:15 PM CDT documented as of this encounter Care Teams Compliance Auditor Relationship Specialty Start Date End Date Elsewhere, Pcp PCP - General Internal Medicine 05/10/21 documented as of this encounter
--- OUTSIDE RECORDS SUMMARY | 2023-06-13 07:26 | XMS_ITS | Referral Summary ---
Author Name Unknown Organization [facility] Address [address] [place] [address] Care Team Providers Care Bass String Winder Name Role Phone Elsewhere, Pcp Primary Care Provider Unavailabl e Source Comments Patient records contain information from all sites at [facility]. For routine questions regarding patient records, call [phone] during business hours, M-F 8:00 AM - 5:00 PM Central Time. Record requests for emergency care only can be directed to [phone] at any time.[facility] Encounters Date Type Department Care Team Description 06/01/2023 9:30 AM CDT Office Visit Division of Hematology in [place], [place] [address] [place] [address] lCaudia Garcia M.D. Marginal Zone Lymphoma Splenic (HCC) (Primary Dx) 05/30/2023 Orders Only Department of Oncology in [place] [address] [place] [address] Denise Abraham M.D. 05/29/2023 1:50 PM CDT - 05/29/2023 11:59 PM CDT Hospital Encounter Department of Laboratory Medicine in [address] [phone] Samir Laureano M.D. Thrombocytopenia (HCC); Hypokalemia; Anemia Macrocytic Discharge Disposition: Home or Self Care 05/25/2023 7:40 AM CDT - 05/25/2023 11:59 PM CDT Hospital Encounter Department of Radiology, [facility] in [place], [place] [address] [place] [address] Samir Laureano M.D. Thrombocytopenia (HCC); Hypokalemia; Anemia Macrocytic Discharge Disposition: Home or Self Care 05/04/2023 8:18 AM MANAGER BASKETBALL - 05/04/2023 11:59 PM MANAGER BASKETBALL Hospital Encounter Department of Laboratory Medicine and Pathology, [place], [place] [address] [place] [address] Samir Laureano M.D. Lymphoplasmacytic Lymphoma (HCC) Discharge Disposition: Home or Self Care 05/04/2023 10:30 AM MANAGER BASKETBALL Infusion Department of Infusion Therapy in [place], [place] [address] [place] [address] Samir Laureano M.D. Lymphoplasmacytic Lymphoma (HCC) (Primary Dx) 04/27/2023 8:20 AM MANAGER BASKETBALL - 04/27/2023 11:59 PM MANAGER BASKETBALL Hospital Encounter Department of Laboratory Medicine and Pathology, [place], [place] [address] [place] [address] Samir Laureano M.D. Lymphoplasmacytic Lymphoma (HCC) Discharge Disposition: Home or Self Care 04/27/2023 10:30 AM MANAGER BASKETBALL Infusion Department of Infusion Therapy in [place], [place] [address] [place] [address] Samir Laureano M.D. Lymphoplasmacytic Lymphoma (HCC) (Primary Dx) Discharge Disposition: Home or Self Care 04/02/2023 9:54 AM MANAGER BASKETBALL - 04/23/2023 12:33 PM MANAGER BASKETBALL Hospital Encounter [facility], [facility], Seventh Floor [address] [place] [address] Sean Jansen M.D. Darrell Zabala M.D. Raymond Jaimes M.D. Habermann, Thomas M, M.D. Parikh, Sameer A, M.B.B.S. Lambert Roy M.D. Hampel, Paul J, M.D. Weakness General (Primary Dx); Hypokalemia; Hypercalcemia; Dysphagia [R13.10]; Dehydration [E86.0]; Malnutrition Protein-Calorie Unspecified (HCC) [E46]; Lymphoplasmacytic Lymphoma (HCC) Discharge Disposition: Home or Self Care 04/19/2023 Orders Only Division of Hematology in [place], [place] [address] [place] [phone] Lambert Roy M.D. 04/19/2023 Clinical Communication [facility] [address] [place] [phone] Samir Laureano M.D. 04/19/2023 Clinical Communication [facility] [address] [place] [phone] Samir Laureano M.D. Post Hospital Follow-up 04/12/2023 Orders Only Department of Oncology in [place], [place] [address] [place] [phone] Satnam Lema M.B.B.S. 04/06/2023 9:00 AM MANAGER BASKETBALL Anesthesia Event Department of Anesthesia, [place], [place] [address] [place] [address] Tramaine Juarez APRN, JOSE F from Last 3 Months Allergies No known active allergies Medications Medication [...] Route Frequency Start Date End Date Status hmhldwwmldz-gpvunihzm-GIGNNEB rine 0.25%-1%-1:200,000 injection 2-25 mLIndications:Squamous Cell Carcinoma [...] Headache 08/02/2002 04/12/2023 Overview: Migraine Without Aura Immunizations Name Administration Dates Next Due DTP 05/23/1989 DTaP (Infanrix, Tripedia) 08/10/1999 HZV (ZOSTAVAX) 09/23/2009 Influenza high dose QV(65 ye ars or older) (PF) 11/29/2022,12/06/2021,12/01/2020,2019 PCV13 01/02/2018 PPSV23(Discontinued) 12/21/2010 RZV (SHINGRIX) 07/17/2018 SARS-COV-2 (COVID-19) - PFIZ ER BIVALENT TS(Discontinued)(12 YEARS OR OLDER) 09/26/2021 Td Preservative Free (TENIVA C, DECAVAC) 06/12/2006 Tdap 07/17/2018 influenza vaccine quad (FLUZONE/FLUARIX) (6 months and older)(PF) 01/02/2018,12/11/2016,01/08/2014,2011,12/21/2010,01/18/2010,12/04/2008,1 ,12/05/2006,12/18/2005, 003,01/04/2000 Social History Tobacco Use Types Packs/Day Years [...] 1-2 servings of alcohol per 1-2 weeks. [facility] Utilities Answer Date Recorded In the past 12 months has th e A vida é feita de [employer], [employer], oil, or water [employer] threatened to shut off services in your [...] often do you attend chur ch or buddhism services? More than 4 times per year 12/07/2021 Do you belong to any clubs o r organizations such as latter day groups, unions, [...] Answer Date Recorded PHQ-2 Score 0 06/12/2021 [facility] [place] of Occupat ional [facility] - Occupational Stress Questionnaire Answer Date Recorded [...] CDT Respiratory Rate 18 05/04/2023 1:06 PM MANAGER BASKETBALL Oxygen Saturation 97% 04/23/2023 11:45 AM MANAGER BASKETBALL Inhaled Oxygen Concentration - - Weight 53 kg (116 lb 13.5 oz) 06/01/2023 9:29 AM CDT Height 149 cm (4' 10.66) 06/01/2023 9:29 AM CDT Body Mass Index 23.87 06/01/2023 9:29 AM CDT Plan of Treatment Upcoming Encounters Date Type Department Care Team (Late st Contact Info) Description 07/09/2023 11:15 AM CDT Clinical Communication Virtual Review in [address] [address] 07/11/2023 1:00 PM CDT Office Visit Department of Neurology in [address] [phone] Danita Prabhakar M.D., Ph.D. [address] [place] [phone] Medical Devices Implanted Type Area Linen Folder Device Identifier Shelf Expiration Date Model / [...] - NO ALERTS Routine 05/04/2023 8:27 AM MANAGER BASKETBALL Lymphoplasmacyti c Lymphoma (HCC) CBC CHEMO - NO ALERTS Routine 04/27/2023 8:35 AM MANAGER BASKETBALL Lymphoplasmacyti c Lymphoma (HCC) VRE PCR Routine 04/23/2023 7:53 AM MANAGER BASKETBALL CALCIUM, IONIZED, S/B Routine 04/23/2023 7:28 AM MANAGER BASKETBALL BASIC METABOLIC PANEL, S/P Routine 04/23/2023 7:27 AM MANAGER BASKETBALL CBC NO CALL BACK, REFLEX T/S Routine 04/23/2023 7:27 AM MANAGER BASKETBALL ALBUMIN, S/P Routine 04/22/2023 6:20 AM MANAGER BASKETBALL CYSTATIN C WITH EGFR Routine 04/22/2023 6:20 AM MANAGER BASKETBALL CALCIUM, IONIZED, S/B Routine 04/22/2023 6:20 AM MANAGER BASKETBALL BASIC METABOLIC PANEL, S/P Routine 04/22/2023 6:20 AM MANAGER BASKETBALL CBC NO CALL BACK, REFLEX T/S Routine 04/22/2023 6:20 AM MANAGER BASKETBALL ECG Routine 04/21/2023 10:47 AM MANAGER BASKETBALL CBC NO CALL BACK, REFLEX T/S Routine 04/21/2023 6:39 AM MANAGER BASKETBALL CYSTATIN C WITH EGFR Routine 04/21/2023 6:39 AM MANAGER BASKETBALL BASIC METABOLIC PANEL, S/P Routine 04/21/2023 6:39 AM MANAGER BASKETBALL CALCIUM, IONIZED, S/B Routine 04/20/2023 6:23 AM MANAGER BASKETBALL BASIC METABOLIC PANEL, S/P Routine 04/20/2023 6:23 AM MANAGER BASKETBALL CBC NO CALL BACK, REFLEX T/S Routine 04/19/2023 7:54 AM MANAGER BASKETBALL CALCIUM, IONIZED, S/B Routine 04/19/2023 7:54 AM MANAGER BASKETBALL BASIC METABOLIC PANEL, S/P Routine 04/19/2023 7:54 AM MANAGER BASKETBALL TYPE AND SCREEN Routine 04/18/2023 12:47 AM MANAGER BASKETBALL CALCIUM, IONIZED, S/B Routine 04/18/2023 12:47 AM MANAGER BASKETBALL BASIC METABOLIC PANEL, S/P Routine 04/18/2023 12:47 AM MANAGER BASKETBALL CBC NO CALL BACK, REFLEX T/S Routine 04/18/2023 12:47 AM MANAGER BASKETBALL DX ABDOMEN PORTABLE ANTERIOR POSTERIOR 1 VIEW RAD - Routine (most inpatients and all outpatients) 04/17/2023 11:59 AM MANAGER BASKETBALL CYSTATIN C WITH EGFR Routine 04/17/2023 12:38 AM MANAGER BASKETBALL PHOSPHORUS (INORGANIC), S Routine 04/17/2023 12:38 AM MANAGER BASKETBALL CALCIUM, IONIZED, S/B Routine 04/17/2023 12:38 AM MANAGER BASKETBALL BASIC METABOLIC PANEL, S/P Routine 04/17/2023 12:38 AM MANAGER BASKETBALL CBC NO CALL BACK, REFLEX T/S Routine 04/17/2023 12:38 AM MANAGER BASKETBALL VRE PCR Routine 04/16/2023 8:34 AM MANAGER BASKETBALL CYSTATIN C WITH EGFR Timed 04/16/2023 6:14 AM MANAGER BASKETBALL CBC NO CALL BACK, REFLEX T/S Timed 04/16/2023 6:14 AM MANAGER BASKETBALL BASIC METABOLIC PANEL, S/P Timed 04/16/2023 6:14 AM MANAGER BASKETBALL URIC ACID, S/P Timed 04/16/2023 6:14 AM MANAGER BASKETBALL PHOSPHORUS (INORGANIC), S Timed 04/16/2023 6:14 AM MANAGER BASKETBALL CALCIUM, IONIZED, S/B Timed 04/16/2023 6:14 AM MANAGER BASKETBALL CALCIUM, IONIZED, S/B Timed 04/15/2023 8:02 PM MANAGER BASKETBALL BASIC METABOLIC PANEL, S/P Timed 04/15/2023 8:02 PM MANAGER BASKETBALL URIC ACID, S/P Timed 04/15/2023 8:02 PM MANAGER BASKETBALL PHOSPHORUS (INORGANIC), S Timed 04/15/2023 8:02 PM MANAGER BASKETBALL CALCIUM, IONIZED, S/B Timed 04/15/2023 12:26 PM MANAGER BASKETBALL BASIC METABOLIC PANEL, S/P Timed 04/15/2023 12:26 PM MANAGER BASKETBALL URIC ACID, S/P Timed 04/15/2023 12:26 PM MANAGER BASKETBALL PHOSPHORUS (INORGANIC), S Timed 04/15/2023 12:26 PM MANAGER BASKETBALL CYSTATIN C WITH EGFR Timed 04/15/2023 6:14 AM MANAGER BASKETBALL CBC NO CALL BACK, REFLEX T/S Timed 04/15/2023 6:14 AM MANAGER BASKETBALL BASIC METABOLIC PANEL, S/P Timed 04/15/2023 6:14 AM MANAGER BASKETBALL URIC ACID, S/P Timed 04/15/2023 6:14 AM MANAGER BASKETBALL PHOSPHORUS (INORGANIC), S Timed 04/15/2023 6:14 AM MANAGER BASKETBALL CALCIUM, IONIZED, S/B Timed 04/15/2023 6:14 AM MANAGER BASKETBALL CALCIUM, IONIZED, S/B Timed 04/14/2023 8:16 PM MANAGER BASKETBALL BASIC METABOLIC PANEL, S/P Timed 04/14/2023 8:16 PM MANAGER BASKETBALL URIC ACID, S/P Timed 04/14/2023 8:16 PM MANAGER BASKETBALL PHOSPHORUS (INORGANIC), S Timed 04/14/2023 8:16 PM MANAGER BASKETBALL DIPSTICK, U Routine 04/14/2023 3:34 PM MANAGER BASKETBALL PH, U Routine 04/14/2023 3:34 PM MANAGER BASKETBALL OSMOLALITY, U Routine 04/14/2023 3:34 PM MANAGER BASKETBALL MICROSCOPIC AUTOMATED Routine 04/14/2023 3:34 PM MANAGER BASKETBALL URINALYSIS WITH MICROSCOPIC Routine 04/14/2023 3:34 PM MANAGER BASKETBALL DX CHEST PORTABLE 1 VIEW RAD - Routine (most inpatients and all outpatients) 04/14/2023 2:55 PM MANAGER BASKETBALL BASIC METABOLIC PANEL, S/P Timed 04/14/2023 1:10 PM MANAGER BASKETBALL URIC ACID, S/P Timed 04/14/2023 1:10 PM MANAGER BASKETBALL PHOSPHORUS (INORGANIC), S Timed 04/14/2023 1:10 PM MANAGER BASKETBALL DX ABDOMEN PORTABLE ANTERIOR POSTERIOR 1 VIEW RAD - Semiurgent (Fast; most ED patients; some inpatients) 04/14/2023 11:45 AM MANAGER BASKETBALL HEPATIC FUNCTION PANEL, S Timed 04/14/2023 4:13 AM MANAGER BASKETBALL CBC NO CALL BACK, REFLEX T/S Timed 04/14/2023 4:13 AM MANAGER BASKETBALL CALCIUM, IONIZED, S/B Timed 04/14/2023 4:13 AM MANAGER BASKETBALL BASIC METABOLIC PANEL, S/P Timed 04/14/2023 4:13 AM MANAGER BASKETBALL URIC ACID, S/P Timed 04/14/2023 4:13 AM MANAGER BASKETBALL PHOSPHORUS (INORGANIC), S Timed 04/14/2023 4:13 AM MANAGER BASKETBALL CALCIUM, IONIZED, S/B Timed 04/13/2023 8:26 PM MANAGER BASKETBALL BASIC METABOLIC PANEL, S/P Timed 04/13/2023 8:26 PM MANAGER BASKETBALL URIC ACID, S/P Timed 04/13/2023 8:26 PM MANAGER BASKETBALL PHOSPHORUS (INORGANIC), S Timed 04/13/2023 8:26 PM MANAGER BASKETBALL GLUCOSE POCT, B Routine 04/13/2023 2:21 PM MANAGER BASKETBALL BASIC METABOLIC PANEL, S/P Timed 04/13/2023 12:20 PM MANAGER BASKETBALL URIC ACID, S/P Timed 04/13/2023 12:20 PM MANAGER BASKETBALL PHOSPHORUS (INORGANIC), S Timed 04/13/2023 12:20 PM MANAGER BASKETBALL (TTE) 2D ECHO DOPPLER COLOR Routine 04/13/2023 10:33 AM MANAGER BASKETBALL BASIC METABOLIC PANEL, S/P Timed 04/13/2023 6:07 AM MANAGER BASKETBALL URIC ACID, S/P Timed 04/13/2023 6:07 AM MANAGER BASKETBALL PHOSPHORUS (INORGANIC), S Timed 04/13/2023 6:07 AM MANAGER BASKETBALL CALCIUM, IONIZED, S/B Timed 04/13/2023 6:07 AM MANAGER BASKETBALL ALKALINE PHOSPHATASE, TOT AND ISOENZYMES, S Timed 04/13/2023 6:07 AM MANAGER BASKETBALL CBC NO CALL BACK, REFLEX T/S Timed 04/13/2023 6:07 AM MANAGER BASKETBALL MAGNESIUM, S Timed 04/13/2023 6:07 AM MANAGER BASKETBALL CALCIUM, IONIZED, S/B Timed 04/12/2023 9:57 PM MANAGER BASKETBALL URIC ACID, S/P Timed 04/12/2023 6:03 PM MANAGER BASKETBALL PHOSPHORUS (INORGANIC), S Timed 04/12/2023 6:03 PM MANAGER BASKETBALL BASIC METABOLIC PANEL, S/P Timed 04/12/2023 6:03 PM MANAGER BASKETBALL CALCIUM, IONIZED, S/B Timed 04/12/2023 6:03 PM MANAGER BASKETBALL VRE PCR Routine 04/12/2023 6:03 PM MANAGER BASKETBALL DX ABDOMEN PORTABLE ANTERIOR POSTERIOR 1 VIEW RAD - Routine (most inpatients and all outpatients) 04/12/2023 5:30 PM MANAGER BASKETBALL PH BLOOD GAS STAT 04/12/2023 12:41 PM MANAGER BASKETBALL CALCIUM, IONIZED, S/B STAT 04/12/2023 12:41 PM MANAGER BASKETBALL PHOSPHORUS (INORGANIC), S STAT 04/12/2023 12:41 PM MANAGER BASKETBALL URIC ACID, S/P STAT 04/12/2023 12:41 PM MANAGER BASKETBALL [id number] (BETA-2-M), S STAT 04/12/2023 12:41 PM MANAGER BASKETBALL LACTATE DEHYDROGENASE (LD), S STAT 04/12/2023 12:41 PM MANAGER BASKETBALL [id number] DEHYDROGENASE (G-6-PD), RICH, ERYTHROCYTES, B STAT 04/12/2023 12:41 PM MANAGER BASKETBALL COMPREHENSIVE METABOLIC PANEL, S/P STAT 04/12/2023 12:41 PM MANAGER BASKETBALL CBC NO CALL BACK, REFLEX T/S STAT 04/12/2023 12:41 PM MANAGER BASKETBALL SARS CORONAVIRUS 2, PCR RAPID, V STAT 04/11/2023 3:29 PM MANAGER BASKETBALL HIV-1/-2 AG AND AB SCREEN, PLASMA Routine 04/11/2023 6:49 AM MANAGER BASKETBALL HCV AB W/REFLEX TO HCV PCR, S Routine 04/11/2023 6:49 AM MANAGER BASKETBALL IMMUNOGLOBULINS (IGG, IGA, AND IGM), S Routine 04/10/2023 7:54 AM MANAGER BASKETBALL CBC WITHOUT DIFFERENTIAL, B Routine 04/10/2023 7:54 AM MANAGER BASKETBALL PHOSPHORUS (INORGANIC), S Routine 04/10/2023 7:54 AM MANAGER BASKETBALL MAGNESIUM, S Routine 04/10/2023 7:54 AM MANAGER BASKETBALL BASIC METABOLIC PANEL, S/P Routine 04/10/2023 7:54 AM MANAGER BASKETBALL URIC ACID, S/P Routine 04/10/2023 7:49 AM MANAGER BASKETBALL HEPATIC FUNCTION PANEL, S Routine 04/10/2023 7:49 AM MANAGER BASKETBALL HEPATITIS B SURFACE ANTIGEN Routine 04/10/2023 7:49 AM MANAGER BASKETBALL HBS ANTIBODY, SERUM Routine 04/10/2023 7 :49 AM MANAGER BASKETBALL HBC TOTAL AB, SERUM Routine 04/10/2023 7 :49 AM MANAGER BASKETBALL US KIDNEYS BILATERAL WITH BLADDER RAD - Timed (for specific dates/times) 04/09/2023 5:46 PM MANAGER BASKETBALL DE FNA BX WO IMG 1ST LESION Routine 04/09/2023 10:03 AM MANAGER BASKETBALL Weakness General PHOSPHORUS (INORGANIC), S Routine 04/09/2023 9:35 AM MANAGER BASKETBALL MAGNESIUM, S Routine 04/09/2023 9:35 AM MANAGER BASKETBALL BASIC METABOLIC PANEL, S/P Routine 04/09/2023 9:35 AM MANAGER BASKETBALL EMG Routine 04/09/2023 6:38 AM MANAGER BASKETBALL SUBCUTANEOUS FAT ASPIRATE Routine 04/09/2023 6:16 AM MANAGER BASKETBALL C. DIFFICILE TOXIN PCR, F Routine 04/08/2023 12:21 PM MANAGER BASKETBALL PHOSPHORUS (INORGANIC), S Timed 04/08/2023 6:23 AM MANAGER BASKETBALL MAGNESIUM, S Timed 04/08/2023 6:23 AM MANAGER BASKETBALL BASIC METABOLIC PANEL, S/P Timed 04/08/2023 6:23 AM MANAGER BASKETBALL VASCULAR ENDOTHELIAL GROWTH FCTR, P Routine 04/08/2023 6:23 AM MANAGER BASKETBALL 1,25-DIHYDROXYVITAMIN D, S Routine 04/08/2023 6:23 AM MANAGER BASKETBALL PHOSPHORUS (INORGANIC), S Timed 04/07/2023 10:06 PM MANAGER BASKETBALL MAGNESIUM, S Timed 04/07/2023 10:06 PM MANAGER BASKETBALL BASIC METABOLIC PANEL, S/P Timed 04/07/2023 10:06 PM MANAGER BASKETBALL PHOSPHORUS (INORGANIC), S Timed 04/07/2023 1:49 PM MANAGER BASKETBALL MAGNESIUM, S Timed 04/07/2023 1:49 PM MANAGER BASKETBALL BASIC METABOLIC PANEL, S/P Timed 04/07/2023 1:49 PM MANAGER BASKETBALL PHOSPHORUS (INORGANIC), S Timed 04/07/2023 6:51 AM MANAGER BASKETBALL MAGNESIUM, S Timed 04/07/2023 6:51 AM MANAGER BASKETBALL BASIC METABOLIC PANEL, S/P Timed 04/07/2023 6:51 AM MANAGER BASKETBALL CBC WITH DIFFERENTIAL, B Routine 04/07/2023 6:51 AM MANAGER BASKETBALL PHOSPHORUS (INORGANIC), S Timed 04/06/2023 10:13 PM MANAGER BASKETBALL MAGNESIUM, S Timed 04/06/2023 10:13 PM MANAGER BASKETBALL BASIC METABOLIC PANEL, S/P Timed 04/06/2023 10:13 PM MANAGER BASKETBALL DX ABDOMEN PORTABLE ANTERIOR POSTERIOR 1 VIEW RAD - Routine (most inpatients and all outpatients) 04/06/2023 3:54 PM MANAGER BASKETBALL ZINC, S Routine 04/06/2023 3:34 PM MANAGER BASKETBALL COPPER, S Routine 04/06/2023 3:34 PM MANAGER BASKETBALL MAGNESIUM, S Routine 04/06/2023 3:34 PM MANAGER BASKETBALL CBC WITH DIFFERENTIAL, B Routine 04/06/2023 3:34 PM MANAGER BASKETBALL BASIC METABOLIC PANEL, S/P Routine 04/06/2023 3:07 PM MANAGER BASKETBALL MR THORACIC SPINE WITHOUT AND WITH IV CONTRAST RAD - Routine (most inpatients and all outpatients) 04/06/2023 2:37 PM MANAGER BASKETBALL PET CT SKULL TO THIGH RAD - Routine (most inpatients and all outpatients) 04/06/2023 1:14 PM MANAGER BASKETBALL MYD88 L265P GENE MUTATION ANALYSIS Routine 04/06/2023 12:35 PM MANAGER BASKETBALL DE DX BONE MARROW BX & ASPIR Routine 04/06/2023 9:40 AM MANAGER BASKETBALL Weakness General Hypercalcemia B-CELL LYMPHOMA, SPECIFIED FISH Routine 04/06/2023 9:15 AM MANAGER BASKETBALL DNA/RNA EXTRACT AND HOLD, B Routine 04/06/2023 9:15 AM MANAGER BASKETBALL MYELOID NEOPLASMS, NGS Routine 9:15 AM MANAGER BASKETBALL CHROMOSOMES, HEMATOLOGIC, BM Routine 04/06/2023 9:15 AM MANAGER BASKETBALL MDS BY FLOW CYTOMETRY, BM Routine 04/06/2023 9:15 AM MANAGER BASKETBALL HEMATOPATHOLOGY Routine 04/06/2023 6:11 AM MANAGER BASKETBALL IMMUNOGLOBULINS (IGG, IGA, AND IGM), S Routine 04/05/2023 3:45 PM MANAGER BASKETBALL METHYLMALONIC ACID (MMA), RICH, S Routine 04/05/2023 3:45 PM MANAGER BASKETBALL IMMUNOGLOBULIN FREE LIGHT CHAINS, S Routine 04/05/2023 3:45 PM MANAGER BASKETBALL SYPHILIS IGG W/ REFLEX, EIA, S Routine 04/05/2023 3:45 PM MANAGER BASKETBALL MYELOPATHY, AUTOIMM/PARANEO, SERUM Routine 04/05/2023 3:44 PM MANAGER BASKETBALL PLASMA CENTER TECHNICIAN DEMYELINATING DISEASE EVALUATION Routine 04/05/2023 3:44 PM MANAGER BASKETBALL FOLATE, S Routine 04/05/2023 3:44 PM MANAGER BASKETBALL LACTATE DEHYDROGENASE (LD), S Routine 04/05/2023 3:44 PM MANAGER BASKETBALL VITAMIN E, S Routine 04/05/2023 3:43 PM MANAGER BASKETBALL THIAMIN (VITAMIN B1), B Routine 04/05/2023 3:43 PM MANAGER BASKETBALL VITAMIN B3 AND METABOLITES, P Routine 04/05/2023 3:42 PM MANAGER BASKETBALL ASCORBIC ACID (VITAMIN C), P Routine 04/05/2023 3:41 PM MANAGER BASKETBALL RIBOFLAVIN (VITAMIN B2), P Routine 04/05/2023 3:41 PM MANAGER BASKETBALL LEUKEMIA/LYMPHOMA PHENOTYPE, B Routine 04/05/2023 3:11 PM MANAGER BASKETBALL EBV DNA DETECT/QUANT, P Routine 04/05/2023 3:10 PM MANAGER BASKETBALL MR CERVICAL SPINE WITHOUT AND WITH IV CONTRAST RAD - Routine (most inpatients and all outpatients) 04/05/2023 1:05 PM MANAGER BASKETBALL MR BRAIN WITHOUT AND WITH IV CONTRAST RAD - Routine (most inpatients and all outpatients) 04/05/2023 1:05 PM MANAGER BASKETBALL BASIC METABOLIC PANEL, S/P Routine 04/05/2023 6:52 AM MANAGER BASKETBALL CBC WITH DIFFERENTIAL, B Routine 04/05/2023 6:52 AM MANAGER BASKETBALL ECG Routine 04/04/2023 1:13 PM MANAGER BASKETBALL PROTHROMBIN TIME (PT), P Routine 04/04/2023 8:29 AM MANAGER BASKETBALL CBC WITH DIFFERENTIAL, B Routine 04/04/2023 8:29 AM MANAGER BASKETBALL ZINC, S Routine 04/04/2023 8:28 AM MANAGER BASKETBALL FOLATE, S Routine 04/04/2023 8:28 AM MANAGER BASKETBALL VITAMIN B12 ASSAY, S Routine 04/04/2023 8:28 AM MANAGER BASKETBALL PARATHYROID HORMONE-RELATED PEPTIDE (PTHRP), P Routine 04/04/2023 8:28 AM MANAGER BASKETBALL BASIC METABOLIC PANEL, S/P Routine 04/04/2023 8:28 AM MANAGER BASKETBALL VITAMIN B6 PROF (PLP AND PA), P Routine 04/04/2023 8:27 AM MANAGER BASKETBALL MAGNESIUM, S Routine 04/04/2023 8:16 AM MANAGER BASKETBALL PHOSPHORUS (INORGANIC), S Routine 04/04/2023 8:[address] HEAD WITHOUT IV CONTRAST RAD - Semiurgent (Fast; most ED patients; some inpatients) 04/03/2023 5:38 PM MANAGER BASKETBALL PATIENT STATUS STAT 04/03/2023 4:44 PM MANAGER BASKETBALL VENOUS BLOOD GAS W/COOX, B STAT 04/03/2023 4:44 PM MANAGER BASKETBALL BASIC METABOLIC PANEL, S/P STAT 04/03/2023 4:43 PM MANAGER BASKETBALL CBC WITH DIFFERENTIAL, B STAT 04/03/2023 4:43 PM MANAGER [employer]ASK[employer] US ABDOMEN COMPLETE RAD - Routine (most inpatients and all outpatients) 04/03/2023 10:30 AM MANAGER [employer] PHOSPHORUS (INORGANIC), S Routine 04/03/2023 5:45 AM MANAGER [employer] MAGNESIUM, S Routine 04/03/2023 5:45 AM MANA[employer] BASIC METABOLIC PANEL, S/P Routine 04/03/2023 5:45 AM MANAGER [employer] CBC WITH DIFFERENTIAL, B Routine 04/03/2023 5:45 AM MANA[employer] M-PROTEIN MASS-FIX, RANDOM, U Routine 04/02/2023 4:19 PM [employer]NA[employer] ELECTROPHORESIS, PROTEIN, RANDOM, U Routine 04/02/2023 4:19 PM MANAGER [employer] SPSMA RESULT Routine 04/02/2023 4:14 PM [employer]NA[employer] M-PROTEIN ISOTYPE MALDI-TOF MS, S Routine 04/02/2023 4:14 PM MANAGER [employer] PHOSPHORUS (INORGANIC), S Routine 04/02/2023 4:14 PM MANAGER [employer] ELECTROPHORESIS, PROTEIN, S Routine 04/02/2023 4:14 PM MANAGER [employer] RETICULOCYTES, B Routine 04/02/2023 4:14 PM MANAGER [employer]ASK[employer]ALL 25-HYDROXYVITAMIN D2 AND D3, S Routine 04/02/2023 4:14 PM MANAGER [employer] MAGNESIUM, S Routine 04/02/2023 4:14 PM [employer]NA[employer] COMPREHENSIVE METABOLIC PANEL, S/P Routine 04/02/2023 4:14 PM MANAGER [employer] PARATHYROID HORMONE (PTH), S Routine 04/02/2023 4:14 PM MANAGER [employer]ASK[employer] HCV AB SCRN W/REFLEX TO HCV PCR, S Routine 04/02/2023 4:14 PM MANAGER [employer]ASK[employer] HIV-1/-2 AG AND AB SCREEN, PLASMA Routine 04/02/2023 4:14 PM [employer]NA[employer] HISTOPLASMA/BLASTOMYCE S AG, EIA, S Routine 04/02/2023 4:14 PM MANAGER [employer] ECG Routine 04/02/2023 4:09 PM MANAGER [employer]ASK[employer] TROPONIN T, 2H/6H, 5TH GEN, P Timed 04/02/2023 12:19 PM MANAGER [employer]ASK[employer] HC URINALYSIS AUTO WO MICRO Routine 04/02/2023 11:14 AM MANAGER [employer]ASK[employer] INFLUENZA A, B, RSV, PCR, RAPID, V STAT 04/02/2023 10:56 AM MANAGER [employer]ASK[employer] SARS CORONAVIRUS 2, PCR RAPID, V STAT 04/02/2023 10:56 AM MANAGER [employer]ASK[employer] DIPSTICK, U STAT 04/02/2023 10:54 AM MANAGER [employer]ASK[employer] PH, U STAT 04/02/2023 10:54 AM MANAGER [employer]ASK[employer]ALL OSMOLALITY, U STAT 04/02/2023 10:54 AM MANAGER BASK[employer]ALL MICROSCOPIC AUTOMATED STAT 04/02/2023 10:54 AM MANAGER [employer]ASK[employer] URINALYSIS WITH MICROSCOPIC STAT 04/02/2023 10:54 AM MANAGER BASK[employer]ALL BACTERIAL CULTURE, AEROBIC + SUSC, URINE STAT 04/02/2023 10:54 AM MANAGER BASK[employer]ALL BACTERIA / RENAE CULTURE, BLOOD STAT 04/02/2023 10:52 AM MANAGER [employer]ASK[employer] LACTATE FOR SEPSIS WITH REFLEX STAT 04/02/2023 10:45 AM MANAGER [employer]ASK[employer]ALL BACTERIA / RENAE CULTURE, BLOOD STAT 04/02/2023 10:45 AM MANAGER BASK[employer]ALL TROPONIN T, BASELINE, 5TH GEN, P STAT 04/02/2023 10:10 AM MANAGER BASK[employer]ALL THYROID-STIMULATING HORMONE-SENSITIVE (S-TSH) STAT 04/02/2023 10:10 AM MANAGER [employer]ASK[employer] BASIC METABOLIC PANEL, S/P STAT 04/02/2023 10:10 AM MANAGER BASK[employer]ALL CBC WITH DIFFERENTIAL, B STAT 04/02/2023 10:10 AM MANAGER BASKETBALL from Last 3 Months Results * (ABNORMAL) CBC with Differential, Blood (05/29/2023 2:06 PM CDT) Only the most recent of8 resultswithin the time period is included. [facility] Hemoglobin 12.2 11.6 - 15.0 g/dL 05/29/2023 [...] CDT Samir Laureano M.D. LAB BLOOD ADD-ON [facility] [address] [place] [address], [facility] CN[facility] [place] [address] * Comprehensive Metabolic Panel (05/29/2023 2:06 PM CDT) Only the most recent of3 resultswithin the time period is included. Potassium, P 5.1 3.6 - 5.2 mmol/L [...] CDT Samir Laureano M.D. LAB BLOOD ADD-ON Performing Organization Address [facility]/State/[facility] Co de Phone Number [facility] [address] [place] [address], [facility] CN[facility] [place] [address] * PET CT Skull to Thigh FDG [...] RADIOPHARMACEUTICAL/MEDS: Route: intravenous fludeoxyglucose F 18 injection [facility] (FDG F-18),9.77 millicurie TECHNIQUE: ??F-18 FDG PET/CT [...] RADIOPHARMACEUTICAL/MEDS: Route: intravenous fludeoxyglucose F 18 injection [facility] (FDG F-18),9.77 millicurie TECHNIQUE: F-18 FDG PET/CT [...] or recurrentmetastatic disease. Deauville score 1. Samir Laureano M.D. IMG NM PROCEDURES * (ABNORMAL) CBC, Chemotherapy, No Alerts (05/04/2023 8:27 AM MANAGER BASKETBALL) Only the most recent of2 resultswithin the time period is included. [facility] Hemoglobin 12.1 11.6 - 15.0 g/dL 05/04/2023 9:04 AM MANAGER BASKETBALL DTL Platelet Count 124(L) 157 - 371 x10(9)/L 05/04/2023 9:04 AM MANAGER BASKETBALL DTL Leukocytes 3.9 3.4 - 9.6 x10(9)/L 05/04/2023 9:04 AM MANAGER BASKETBALL DTL Neutrophils 1.72 1.56 - 6.45 x10(9)/L 05/04/2023 9:04 AM MANAGER BASKETBALL [facility] Blood (Blood, Venous) 05/04/2023 8:27 AM MANAGER BASKETBALL 05/04/2023 8:46 AM MANAGER BASKETBALL Samir Laureano M.D. LAB BLOOD ADD-ON [facility] [address] [place] [address], [place] DTL [facility] [address] [place] [address] [facility] [address] [place] [address] * VRE PCR (04/23/2023 7:53 AM MANAGER BASKETBALL) Only the most recent of3 resultswithin the time period is included. [facility] Specimen Source Swab, Perianal 04/23/2023 10:13 PM MANAGER BASKETBALL DTL VRE PCR Negative Negative 04/23/2023 10:13 PM MANAGER BASKETBALL DTL Comment: ----ADDITIONAL INFORMATION---- This test was developed using an analyte specific reagent. Its performance characteristics were determined by [facility] in a manner consistent with CLIA requirements. This test has not been cleared or approved by the U.S. Food and Drug Administration. Swab (Perianal) 04/23/2023 7 :53 AM MANAGER BASKETBALL 04/23/2023 8:43 AM MANAGER BASKETBALL Santiago Mejía M.D., M.S. LAB MICROBIOLO GY - GENERAL ORDERABLES Performing Organization Address City/[facility] [address]/ZIP Co de Phone Number [id number] [place] [address] [place] [address] * Calcium, Ionized (04/23/2023 7:28 AM MANAGER BASKETBALL) Only the most recent of17 resultswithin the time period is included. Calcium, Ionized, S 5.01 4.57 - 5.43 mg/dL 04/23/2023 8:07 AM MANAGER BASKETBALL DT Comment: ----ADDITIONAL INFORMATION---- This test has been modified from the air conditioner installer helper's instructions. Its performance characteristics were determined by [facility] in a manner consistent with CLIA requirements. This test has not been cleared or approved by the U.S. Food and Drug Administration. pH for Ionized Calcium 7.44 7.35 - 7.48 04/23/2023 8:07 AM MANAGER BASKETBALL DT Blood (Blood, Venous) 04/23/2023 7:28 AM MANAGER BASKETBALL 04/23/2023 7:51 AM MANAGER BASKETBALL Claudette Izaguirre M.D. LAB BLOOD NON ADD -ON Performing Organization Address City/[facility] [address]/ZIP Co de Phone Number [address] [address], [facility] [place] [address] * (ABNORMAL) CBC no call back, reflex T/S HGB <8 (04/23/2023 7:27 AM MANAGER BASKETBALL) Only the most recent of11 resultswithin the time period is included. Hemoglobin 9.6(L) 11.6 - 15.0 g/dL 04/23/2023 7:58 AM MANAGER BASKETBALL DTL Hematocrit 29.8(L) 35.5 - 44.9 % 04/23/2023 7:58 AM MANAGER BASKETBALL DTL Erythrocytes 2.98(L) 3.92 - 5.13 x10(12)/L 04/23/2023 7:58 AM MANAGER BASKETBALL DTL MCV 100.0(H) 78.2 - 97.9 fL 04/23/2023 7:58 AM MANAGER BASKETBALL DTL RBC Distrib Width 16.5(H) 12.2 - 16.1 % 04/23/2023 7:58 AM MANAGER BASKETBALL DTL Platelet Count 134(L) 157 - 371 x10(9)/L 04/23/2023 7:58 AM MANAGER BASKETBALL DTL Leukocytes 3.1(L) 3.4 - 9.6 x10(9)/L 04/23/2023 7:58 AM MANAGER BASKETBALL DTL Neutrophils 1.09(L) 1.56 - 6.45 x10(9)/L 04/23/2023 7:58 AM MANAGER BASKETBALL [facility] Lymphocytes 1.72 0.95 - 3.07 x10(9)/L 04/23/2023 7:58 AM MANAGER BASKETBALL DTL Monocytes 0.19(L) 0.26 - 0.81 x10(9)/L 04/23/2023 7:58 AM MANAGER BASKETBALL DTL Eosinophils 0.07 0.03 - 0.48 x10(9)/L 04/23/2023 7:58 AM MANAGER BASKETBALL DTL Basophils <0.03 0.01 - 0.08 x10(9)/L 04/23/2023 7:58 AM MANAGER BASKETBALL DTL Blood (Blood, Venous) 04/23/2023 7:27 AM MANAGER BASKETBALL 04/23/2023 7:43 AM MANAGER BASKETBALL Claudette Izaguirre M.D. LAB BLOOD NON ADD -ON [facility] [address] [place] [address], [facility] DTL [facility] [address] [place] [address] [facility] [address] [place] [address] * (ABNORMAL) Basic Metabolic Panel (04/23/2023 7:27 AM MANAGER BASKETBALL) Only the most recent of31 resultswithin the time period is included. [facility] Potassium, S 4.2 3.6 - 5.2 mmol/L 04/23/2023 8:21 AM MANAGER BASKETBALL DTL Sodium, S 140 135 - 145 mmol/L 04/23/2023 8:21 AM MANAGER BASKETBALL DTL Chloride, S 104 98 - 107 mmol/L 04/23/2023 8:21 AM MANAGER BASKETBALL DTL Bicarbonate, S 25 22 - 29 mmol/L 04/23/2023 8:21 AM MANAGER BASKETBALL DTL Anion Gap 11 7 - 15 04/23/2023 8:21 AM MANAGER BASKETBALL DTL BUN (Blood Urea Nitrogen), S 24(H) 6 - 21 mg/dL 04/23/2023 8:21 AM MANAGER BASKETBALL DTL Creatinine 1.05(H) 0.59 - 1.04 mg/dL 04/23/2023 8:21 AM MANAGER BASKETBALL DTL Estimated GFR (eGFR) 53(L) >=60 mL/min/BSA 04/23/2023 8:21 AM MANAGER BASKETBALL DTL Comment: Estimated GFR calculated using the 2020 CKD_EPI creatinine equation. Calcium, Total, S 9.0 8.8 - 10.2 mg/dL 04/23/2023 8:21 AM MANAGER BASKETBALL DTL Glucose, S 101 70 - 140 mg/dL 04/23/2023 8:21 AM MANAGER BASKETBALL DTL Blood (Blood, Venous) 04/23/2023 7:27 AM MANAGER BASKETBALL 04/23/2023 7:51 AM MANAGER BASKETBALL Claudette Izaguirre M.D. LAB BLOOD ADD-ON [facility] [address] [place] [address], [facility] DTL [facility] [address] [place] [address] * (ABNORMAL) Cystatin C with Estimated GFR (04/22/2023 6:20 AM MANAGER BASKETBALL) Only the most recent of5 resultswithin the time period is included. eGFR by Cystatin C 27(L) >60 mL/min/BSA 04/22/2023 7:21 AM MANAGER BASKETBALL DTL Comment: Estimated GFR calculated using the [...] 0.67 - 1.21 mg/L 04/22/2023 7:21 AM MANAGER BASKETBALL DTL Blood (Blood, Venous) 04/22/2023 6:20 AM MANAGER BASKETBALL 04/22/2023 7:03 AM MANAGER BASKETBALL Claudette Izaguirre M.D. LAB BLOOD ADD-ON [facility] [address] [place] [address], [facility] [address] [place] [address] * (ABNORMAL) Albumin (04/22/2023 6:20 AM MANAGER BASKETBALL) Pathologist [facility] Albumin, S 3.4(L) 3.5 - 5.0 g/dL 04/22/2023 7:21 AM MANAGER BASKETBALL DTL Blood (Blood, Venous) 04/22/2023 6:20 AM MANAGER BASKETBALL 04/22/2023 7:03 AM MANAGER BASKETBALL Claudette Izaguirre M.D. LAB BLOOD ADD-ON [facility] [address] [place] [address], [facility] DTL [facility] [address] [place] [id number] * ECG 12 Lead (04/21/2023 10:47 AM MANAGER BASKETBALL) Only the most recent of3 resultswithin the time period is included. Ventricular Rate ECG/Min 81 BPM MUSE DE Interval 146 ms MUSE QRSD Interval 74 ms MUSE QT Interval 356 ms MUSE QTC Interval 413 ms MUSE P Channing 27 degrees MUSE R Channing -17 degrees MUSE T Wave Channing 24 degrees MUSE 04/21/2023 10:4 7 AM MANAGER BASKETBALL 04/23/2023 8:51 AM MANAGER BASKETBALL Impressions MUSE - 04/21/2023 10:53 AM MANAGER BASKETBALL Sinus rhythm Premature ventricular and fusion complexes [...] STEPHANIE Cotton Claudette Izaguirre M.D. ECG ORDERABLES MUSE NA * Type and Screen (with Reflex Antibody ID) (04/18/2023 12:47 AM MANAGER BASKETBALL) ABORh O Pos Not applicable 04/18/2023 3:00 AM MANAGER BASKETBALL ETRM Antibody Screen Negative Negative 04/18/2023 3:15 AM MANAGER BASKETBALL ETRM Type & Screen Expiration 04/21/2023 23:59 04/18/2023 3:00 AM MANAGER BASKETBALL ETRM Testing Location [facility] 04/18/2023 2:34 AM MANAGER BASKETBALL ETRM Blood 04/18/2023 12:4 7 AM MANAGER BASKETBALL 04/18/2023 2:34 AM MANAGER BASKETBALL Vitor Casas P.A.-C., M.S. LAB BLOOD BANK TEST ORDERABLES Performing Organization Address City/[facility] [address]/ZIP Co de Phone Number [facility] [address] [place] [address], [facility] ETRM [facility] [address] [place] [address] * DX Abdomen Portable Anterior Posterior 1 View (04/17/2023 11:59 AM MANAGER BASKETBALL) Only the most recent of4 resultswithin the time period is included. Anatomical Region Laterality Modality Abdomen, Abdominal RST LOS, Abdominal ARZ LOS, Abdominal FLA LOS N/A Digital Radiography Impressions 04/17/2023 12:10 PM MANAGER BASKETBALL NG tube tip in distal stomach. Normal bowel gas pattern. Splenomegaly. Surgical clips left axilla. Narrative 04/17/2023 12:10 PM MANAGER BASKETBALL EXAM: ??DX ABDOMEN PORTABLE ANTERIOR POSTERIOR 1 VIEW Procedure Note Dave Gage M.D. - 04/17/2023 EXAM: DX ABDOMEN PORTABLE ANTERIOR POSTERIOR 1 VIEW IMPRESSION: NG tube tip in distal stomach. Normal bowel gas pattern. Splenomegaly.Surgical clips left axilla. Priyanka Murphy M.D. IMG DIAGNOSTIC IMAGI NG PROCEDURES * Phosphorus Inorganic (04/17/2023 12:38 AM MANAGER BASKETBALL) Only the most recent of23 resultswithin the time period is included. Phosphorus (Inorganic), S 2.8 2.5 - 4.5 mg/dL 04/17/2023 1:22 AM MANAGER BASKETBALL DTL Blood (Blood, Venous) 04/17/2023 12:38 AM MANAGER BASKETBALL 04/17/2023 1:04 AM MANAGER BASKETBALL Sasha Alcala M.D. LAB BLOOD ADD-ON [facility] [address] [place] [address], [facility] DTL [facility] [address] [place] [address] * Uric Acid (04/16/2023 6:14 AM MANAGER BASKETBALL) Only the most recent of13 resultswithin the time period is included. [facility] Uric Acid, S 4.0 2.7 - 6.1 mg/dL 04/16/2023 7:12 AM MANAGER BASKETBALL DTL Blood (Blood, Venous) 04/16/2023 6:14 AM MANAGER BASKETBALL 04/16/2023 6:52 AM MANAGER BASKETBALL Marialuisa Stark P.A.-C. LAB BLOOD ADD- ON [facility] [address] [place] [address], [facility] [address] [place] [address] * Dipstick, Urine (04/14/2023 3:34 PM MANAGER BASKETBALL) Only the most recent of2 resultswithin the time period is included. [facility] Hemoglobin, QL, U Negative Negative 04/14/2023 4:15 PM MANAGER BASKETBALL DTL Leukocyte Esterase, U Negative Negative 04/14/2023 4:15 PM MANAGER BASKETBALL DTL Nitrite, U Negative Negative 04/14/2023 4:15 PM MANAGER BASKETBALL DTL Ketone, U Negative Negative mg/dL 04/14/2023 4:15 PM MANAGER BASKETBALL DTL Glucose, U Negative Negative mg/dL 04/14/2023 4:15 PM MANAGER BASKETBALL DTL Urine 04/14/2023 3:34 PM MANAGER BASKETBALL 04/14/2023 3:58 PM MANAGER BASKETBALL Sasha Alcala M.D. LAB URINE ORDERAB LES [facility] [address] [place] [address], [facility] [address] [place] [address] * Microscopic Automated (04/14/2023 3:34 PM MANAGER BASKETBALL) Only the most recent of2 resultswithin the time period is included. [facility] Microscopy Normal 04/14/2023 4:15 PM MANAGER BASKETBALL DTL RBC None Seen <3 /hpf 04/14/2023 4:15 PM MANAGER BASKETBALL DTL WBC 1-3 /hpf 04/14/2023 4:15 PM MANAGER BASKETBALL DTL Comment: ----REFERENCE VALUE---- <4 ??(Males) <11 (Females) Urine 04/14/2023 3:34 PM MANAGER BASKETBALL 04/14/2023 3:58 PM MANAGER BASKETBALL Sasha Alcala M.D. LAB URINE ORDERAB LES Performing Organization Address City/[facility] [address]/[facility] Co de Phone Number [facility] [address] [place] [address] * pH, Urine (04/14/2023 3:34 PM MANAGER BASKETBALL) Only the most recent of2 resultswithin the time period is included. pH, U 6.8 4.5 - 8.0 04/14/2023 4:3 5 PM MANAGER BASKETBALL DTL Urine 04/14/2023 3:34 PM MANAGER BASKETBALL 04/14/2023 3:58 PM MANAGER BASKETBALL Sasha Alcala M.D. LAB URINE ORDERAB LES Performing Organization Address [facility] Co de Phone Number [facility] [address] [place] [address] * Osmolality, Urine (04/14/2023 3:34 PM MANAGER BASKETBALL) Only the most recent of2 resultswithin the time period is included. Osmolality, U 407 150 - 1150 mOsm/kg 04/14/2023 4:35 PM MANAGER BASKETBALL DTL Urine 04/14/2023 3:34 PM MANAGER BASKETBALL 04/14/2023 3:58 PM MANAGER BASKETBALL Sasha Alcala M.D. LAB URINE ORDERAB LES Performing Organization Address City/[facility] [address]/ZIP Co de Phone Number [facility] [address] [place] [address], [facility] [address] [place] [address] * (ABNORMAL) Urinalysis, with Microscopic: Urine, Catheter (04/14/2023 3:34 PM MANAGER BASKETBALL) Only the most recent of2 resultswithin the time period is included. Source Urine, Urine, Catheter 04/14/2023 3:58 PM MANAGER BASKETBALL DTL Color, U Yellow 04/14/2023 3:58 PM MANAGER BASKETBALL DTL Clarity, U Clear 04/14/2023 3:58 PM MANAGER BASKETBALL DTL Protein, U 16 <26 mg/dL 04/14/2023 4:35 PM MANAGER BASKETBALL DTL Protein/Osmola lity 0.39 <0.42 ratio 04/14/2023 4:35 PM MANAGER BASKETBALL DTL Predicted 24 HR Protein, U 287(H) <229 mg/24 h 04/14/2023 4:35 PM MANAGER BASKETBALL DTL Predicted Range 71-1160 mg/24 h 04/14/2023 4:35 PM MANAGER BASKETBALL DTL Urine (Urine, Catheter) 04/14/2023 3:34 PM MANAGER BASKETBALL 04/14/2023 3:58 PM MANAGER BASKETBALL Sasha Alcala M.D. LAB URINE ORDERAB LES Performing Organization Address [facility] Co de Phone Number [facility] [address] [place] [address], [facility] [address] [place] [address] * DX Chest Portable 1 View (04/14/2023 2:55 PM MANAGER BASKETBALL) Anatomical Region Laterality Modality Chest, Thoracic RST LOS, Tho racic ARZ LOS, Thoracic FLA LOS N/A Digital Radiography Impressions 04/14/2023 3:05 PM MANAGER BASKETBALL Since 07/30/2020, interval development of a small left pleural effusion with adjacent atelectasis or consolidation. Probable tiny right pleural effusion. Increased pulmonary vascular congestion. Similar biapical scarring. Prominent cardiac silhouette. Aortic calcification. Feeding tube with tip below the inferior margin of the image. Narrative 04/14/2023 3:05 PM MANAGER BASKETBALL EXAM: ??DX CHEST PORTABLE 1 VIEW Procedure [...] (ABNORMAL) Hepatic Function Panel (04/14/2023 4:13 AM MANAGER BASKETBALL) Only the most recent of2 resultswithin the time period is included. Bilirubin, Total, S 0.5 0.0 - 1.2 mg/dL 04/14/2023 5:22 AM MANAGER BASKETBALL DTL Bilirubin, Direct, S 0.3 0.0 - 0.3 mg/dL 04/14/2023 5:22 AM MANAGER BASKETBALL DTL Aspartate Aminotransferase (AST), S 42 8 - 43 U/L 04/14/2023 5:22 AM MANAGER BASKETBALL DTL Alanine Aminotransferase (ALT), S 23 7 - 45 U/L 04/14/2023 5:22 AM MANAGER BASKETBALL DTL Alkaline Phosphatase, S 163(H) 35 - 104 U/L 04/14/2023 5:22 AM MANAGER BASKETBALL DTL Albumin, S 3.0(L) 3.5 - 5.0 g/dL 04/14/2023 5:22 AM MANAGER BASKETBALL DTL Protein, Total, S 5.3(L) 6.3 - 7.9 g/dL 04/14/2023 5:22 AM MANAGER BASKETBALL DTL Blood (Blood, Venous) 04/14/2023 4:13 AM MANAGER BASKETBALL 04/14/2023 5:03 AM MANAGER BASKETBALL Vitor Casas P.A.-C., M.S. LAB BLOOD ADD-ON [facility] [address] [place] [address], [facility] DTL [facility] [place] [address] [place] [address] * Glucose, POCT (04/13/2023 2:21 PM MANAGER BASKETBALL) Pathologist [facility] Glucose, POCT, B 99 70 - 140 mg/dL 04/13/2023 2:23 PM MANAGER BASKETBALL PCDE Site Capillary 04/13/2023 2:23 PM MANAGER BASKETBALL PCDE Last Intake > 4 hours 04/13/2023 2:23 PM MANAGER BASKETBALL PCDE Blood 04/13/2023 2:21 PM MANAGER BASKETBALL 04/13/2023 2:24 PM MANAGER BASKETBALL Unknown Provider LAB POCT ORDERABLES- MANUAL P[facility] [address] [place] [address], [facility] PCDE [facility] [address] [place] [address] * (TTE) 2D ECHO DOPPLER COLOR (04/13/2023 10:33 AM MANAGER BASKETBALL) [facility] Ejection Fraction 62 MC CV EIMS Proximal [...] Region Laterality Modality Other 04/13/2023 9:33 AM MANAGER BASKETBALL Impressions 04/13/2023 11:42 AM MANAGER BASKETBALL Echo performed at the patient's bedside at [facility]. [facility] echocardiograms available for comparison. Anemia, thyrotoxicosis, [...] the Order-Level Documents. Narrative 04/13/2023 11:42 AM MANAGER BASKETBALL For the complete report, see the Order-Level [...] Echo performed at the patient's bedside at [facility]. There are no previous [facility] echocardiograms available for comparison. Anemia, thyrotoxicosis,or [...] Phosphatase, Total and Isoenzymes (04/13/2023 6:07 AM MANAGER BASKETBALL) Alkaline Phosphatase, S 169(H) 35 - 104 U/L 04/13/2023 7:14 AM MANAGER BASKETBALL DTL Liver 1 % 54.2 27.8 - 76.3 % 04/13/2023 2:08 PM MANAGER BASKETBALL DTL Liver 1 91.6(H) 16.2 - 70.2 IU/L 04/13/2023 2:08 PM MANAGER BASKETBALL DTL Liver 2 % 26.5(H) 0.0 - 8.0 % 04/13/2023 2:08 PM MANAGER BASKETBALL DTL Liver 2 44.8(H) 0.0 - 5.8 IU/L 04/13/2023 2:08 PM MANAGER BASKETBALL DTL Bone % 17.8(L) 19.1 - 67.7 % 04/13/2023 2:08 PM MANAGER BASKETBALL DTL Bone 30.1 12.1 - 42.7 IU/L 04/13/2023 2:08 PM MANAGER BASKETBALL DTL Intestine % 1.5 0.0 - 20.6 % 04/13/2023 2:08 PM MANAGER BASKETBALL DTL Intestine 2.5 0.0 - 11.0 IU/L 04/13/2023 2:08 PM MANAGER BASKETBALL DTL Placental Not Present Not present 04/13/2023 2:08 PM MANAGER BASKETBALL DTL Blood (Blood, Venous) 04/13/2023 6:07 AM MANAGER BASKETBALL 04/13/2023 6:59 AM MANAGER BASKETBALL Narrative [facility] - 04/13/2023 2:08 PM MANAGER BASKETBALL Specimen Information: Specimen ID: [id number] Specimen Type: Blood Specimen Collection Start Date: 04/13/2023 ??6:07 AM Specimen Received Date: 04/13/2023 ??6:59 AM Specimen ID: [id number] Specimen Type: Blood Specimen Collection Start Date: 04/13/2023 ??6:07 AM Specimen Received Date: 04/13/2023 ??7:42 AM Becka Suarez P.A.-C. LAB BLOOD NON ADD-ON [facility] [address] [place] [address], [facility] [address] 200 [place] [address] * Magnesium (04/13/2023 6:07 AM MANAGER BASKETBALL) Only the most recent of12 resultswithin the time period is included. Magnesium, S 2.0 1.7 - 2.3 mg/dL 04/13/2023 7:14 AM MANAGER BASKETBALL DTL Blood (Blood, Venous) 04/13/2023 6:07 AM MANAGER BASKETBALL 04/13/2023 6:59 AM MANAGER BASKETBALL Becka Suarez P.A.-C. LAB BLOOD ADD-ON Performing Organization Address City/[facility] [address]/ZIP Co de Phone Number [facility] [address] DTL [facility] [address] [place] [address] * pH (04/12/2023 12:41 PM MANAGER BASKETBALL) Pathologist [facility] pH 7.42 7.35 - 7.45 pH 04/12/2023 12:49 PM MANAGER BASKETBALL [facility] Blood 04/12/2023 12:4 1 PM MANAGER BASKETBALL 04/12/2023 12:47 PM MANAGER BASKETBALL Becka Suarez P.A.-C. LAB HISTO RICAL ORDERS Performing Organization Address [facility] Co de Phone Number [facility] [address] [place] [address] * Glucose 6 Phosphate Dehydrogenase Enzyme Activity (04/12/2023 12:41 PM MANAGER BASKETBALL) [facility] G6PD Enzyme Activity, B 11.3 8.0 - 11.9 U/g Hb 04/12/2023 4:02 PM MANAGER BASKETBALL DT Comment: G6PD deficiency can be masked in the setting of reticulocytosis, markedly elevated WBCs or recent transfusion. If any of these are present in the setting of , chronic, or episodic jaundice/anemia, genotyping is recommended. If desired, please order G6PDZ/G6PD Full Gene Sequencing, V. ----ADDITIONAL INFORMATION---- This test was developed and its performance characteristics determined by [facility] in a manner consistent with CLIA requirements. This test has not been cleared or approved by the U.S. Food and Drug Administration. Blood (Blood, Venous) 04/12/2023 12:41 PM MANAGER BASKETBALL 04/12/2023 1:22 PM MANAGER BASKETBALL Becka Suarez P.A.-C. LAB BLOOD ADD-ON [facility] [address] [place], [place] [address] [place] [address] [address] [place] [address] * LD (Lactate Dehydrogenase) (04/12/2023 12:41 PM MANAGER BASKETBALL) Only the most recent of2 resultswithin the time period is included. [facility] LD 140 122 - 222 U/L 04/12/2023 1:44 PM MANAGER BASKETBALL [facility] Blood (Blood, Venous) 04/12/2023 12:41 PM MANAGER BASKETBALL 04/12/2023 1:28 PM MANAGER BASKETBALL Becka Suarez P.A.-C. LAB BLOOD NON ADD-ON Performing Organization Address [facility] Co de Phone Number [facility] [address] [place], [place] [address] [address] [place] [address] * (ABNORMAL) [id number] (Beta-2-M) (04/12/2023 12:41 PM MANAGER BASKETBALL) [facility] Fmgi-[id number] obulin, S 12.10(H) 1.21 - 2.70 mcg/mL 04/12/2023 5:59 PM MANAGER BASKETBALL [facility] Blood (Blood, Venous) 04/12/2023 12:41 PM MANAGER BASKETBALL 04/12/2023 5:00 PM MANAGER BASKETBALL Becka Suarez P.A.-C. LAB BLOOD ADD-ON [facility] [address] [place] [address] [facility] [address] [place] [address] * SARS Coronavirus 2, PCR Rapid Symptomatic (04/11/2023 3:29 PM MANAGER BASKETBALL) Only the most recent of2 resultswithin the time period is included. [facility] SARS CoV-2, PCR, Rapid, V Undetected Undetected 04/11/2023 3:58 PM MANAGER BASKETBALL [facility] Comment: ----ADDITIONAL INFORMATION---- This RT-PCR test was performed using the Sherry SARS-CoV-2 and Influenza A/B Reagent assay from [facility] [employer], which has received Emergency Use Authorization(EUA) by the U.S. Food and Drug Administration. Fact sheets for this Emergency Use Authorization (EUA) assay can be found at the following links: For Healthcare Providers: https://www.fda.gov/media/807493/download For Patients: https://www.fda.gov/media/389574/download SARS Coronavirus 2, Rapid, Source Swab, Nasopharynx 04/11/2023 3:37 PM MANAGER BASKETBALL [facility] Swab (Nasopharynx) 04/11/2023 3:29 PM MANAGER BASKETBALL 04/11/2023 3:37 PM MANAGER BASKETBALL Syed GallowayB.S. LAB MICR OBIOLOGY [place] [address], [place] [address] * HIV-1/-2 Ag and Ab Screen, Plasma (04/11/2023 6:49 AM MANAGER BASKETBALL) Only the most recent of2 resultswithin the time period is included. Pathologist [facility] HIV-1/-2 Ag and Ab Screen, P Negative Negative 04/11/2023 10:21 AM MANAGER BASKETBALL [facility] Comment: Negative result does not rule out HIV infection. If exposure to HIV infection occurred <14 days ago, contact the laboratory to request addition of HIV-1/HIV-2 RNA detection, Plasma (HIP12). Blood (Blood, Venous) 04/11/2023 6:49 AM MANAGER BASKETBALL 04/11/2023 9:28 AM MANAGER BASKETBALL Syed GallowayB.S. LAB MICR OBIOLOGY - BLOOD ORDERABLES Performing Organization Address City/State/[facility] Co de Phone Number [facility] [address] [place] [address] [place] [address] * HCV Ab w/Reflex to HCV PCR, Serum (04/11/2023 6:49 AM MANAGER BASKETBALL) [facility] HCV Ab, S Negative Negative 04/11/2023 10:37 AM MANAGER BASKETBALL [facility] Comment:Xehgti-yp-oyfmjd rat io is <1.00. Blood (Blood, Peripheral Draw) 04/11/2023 6:49 AM MANAGER BASKETBALL 04/11/2023 9:28 AM MANAGER BASKETBALL Syed Palmer LAB MICR OBIOLOGY - BLOOD ORDERABLES Performing Organization Address [facility] Co de Phone Number [facility] [address] [place] [address] [place] [address] * (ABNORMAL) CBC without Differential (04/10/2023 7:54 AM MANAGER BASKETBALL) [facility] Hemoglobin 9.0(L) 11.6 - 15.0 g/dL 04/10/2023 8:49 AM MANAGER BASKETBALL DTL Hematocrit 27.5(L) 35.5 - 44.9 % 04/10/2023 8:49 AM MANAGER BASKETBALL DTL Erythrocytes 2.81(L) 3.92 - 5.13 x10(12)/L 04/10/2023 8:49 AM MANAGER BASKETBALL DTL MCV 97.9 78.2 - 97.9 fL 04/10/2023 8:49 AM MANAGER BASKETBALL DTL RBC Distrib Width 15.1 12.2 - 16.1 % 04/10/2023 8:49 AM MANAGER BASKETBALL DTL Platelet Count 64(L) 157 - 371 x10(9)/L 04/10/2023 9:29 AM MANAGER BASKETBALL DTL Leukocytes 3.8 3.4 - 9.6 x10(9)/L 04/10/2023 9:29 AM MANAGER BASKETBALL DTL Blood (Blood, Venous) 04/10/2023 7:54 AM MANAGER BASKETBALL 04/10/2023 8:10 AM MANAGER BASKETBALL Syed HedrickSAdalid LAB BLOO D ADD-ON [facility] [address] [place] [address], [place] DTL [facility] [address] [place] [address] * (ABNORMAL) Immunoglobulins (IgG, IgA, and IgM) (04/10/2023 7:54 AM MANAGER BASKETBALL) Only the most recent of2 resultswithin the time period is included. Immunoglobulin A (IgA), S 360(H) 61 - 356 mg/dL 04/10/2023 1:46 PM MANAGER BASKETBALL [facility] Immunoglobulin M (IgM), S 792(H) 37 - 286 mg/dL 04/10/2023 2:10 PM MANAGER BASKETBALL [facility] Immunoglobulin G (IgG), S 632(L) 767 - 1590 mg/dL 04/10/2023 1:46 PM MANAGER BASKETBALL [facility] Blood (Blood, Venous) 04/10/2023 7:54 AM MANAGER BASKETBALL 04/10/2023 1:00 PM MANAGER BASKETBALL Evan Palmer LAB BLOOD ADD- ON Performing Organization Address City/[facility] Co de Phone Number [facility] [address] [place] [address] [facility] [address] [place] [address] * HBc Total Ab, Serum (04/10/2023 7:49 AM MANAGER BASKETBALL) HBc Total Ab, S Negative Negative 04/10/2023 11:18 PM MANAGER BASKETBALL [facility] Blood (Blood, Peripheral Draw) 04/10/2023 7:49 AM MANAGER BASKETBALL 04/10/2023 7:44 PM MANAGER BASKETBALL Syed HedrickSAdalid LAB MICR OBIOLOGY - BLOOD ORDERABLES [facility] [address] [place] [address] [facility] [address] [place] [address] * HBs Antibody, Serum (04/10/2023 7:49 AM MANAGER BASKETBALL) HBs Antibody, S Negative 04/10/2023 11:19 PM MANAGER BASKETBALL [facility] Comment: Patient is presumed to be not immune to infection with HBV. ----REFERENCE VALUE---- Unvaccinated: Negative Vaccinated: Positive HBs Antibody, Quantitative, S <5.0 mIU/mL 04/10/2023 11:19 PM MANAGER BASKETBALL [facility] Comment: ----REFERENCE VALUE---- Unvaccinated: <5.0 Vaccinated: >=12.0 Blood 04/10/2023 7:49 AM MANAGER BASKETBALL 04/10/2023 7:44 PM MANAGER BASKETBALL Syed HedrickS. LAB MICR OBIOLOGY - BLOOD ORDERABLES Performing Organization Address City/[facility]/ZIP Co de Phone Number [facility] [address] [place] [address] [facility] [address] [place] [address] * Hepatitis B Surface Antigen (04/10/2023 7:49 AM MANAGER BASKETBALL) HBs Antigen, S Negative Negative 04/10/2023 11:01 PM MANAGER BASKETBALL [facility] Blood 04/10/2023 7:49 AM MANAGER BASKETBALL 04/10/2023 7:44 PM MANAGER BASKETBALL Syed HedrickSAdalid LAB MICR OBIOLOGY - BLOOD ORDERABLES [facility] [address] [place] [address] [facility] [address] [place] [address] * US Kidneys Bilateral with Bladder (04/09/2023 5:46 PM MANAGER BASKETBALL) Anatomical Region Laterality Modality Abdomen, Renal, Ultrasound R ST LOS, Ultrasound ARZ LOS, Ultrasound FLA LOS Bilateral Ultrasound Impressions 04/10/2023 7:27 AM MANAGER BASKETBALL Stable mild left pelvocaliectasis. No obstructive lesions seen within the kidney and bladder ultrasound. Narrative 04/10/2023 7:27 AM MANAGER BASKETBALL EXAM: US KIDNEYS BILATERAL WITH BLADDER COMPARISON: [...] Edson Nance M.D. IMG US PROCEDURES * DE FNA BX WO IMG 1ST LESION (04/09/2023 10:03 AM MANAGER BASKETBALL) Narrative Brandon Awad R.N. - 04/09/2023 10:03 AM MANAGER BASKETBALL Brandon Awad R.N. ? 04/09/2023 10:04 AM Fat Aspirate Performed by: Brandon Awad R.N. Authorized by: Ward Venegas M.D. ?? Care team members present 1. Rhoda Zambrano Senthil PROCEDURE DETAILS Procedure: ??Fat aspirate Fat aspirate [...] ICAL ORDERABLES * EMG (04/09/2023 6:38 AM MANAGER BASKETBALL) 04/09/2023 7:00 AM MANAGER BASKETBALL Narrative EMG - 04/09/2023 9:13 AM MANAGER BASKETBALL Table formatting from the original result was not included. 09-Apr-2023 ? Electromyography ? Final Report Study Number: 1 EMG Natural Resources Specialist: Quinn Hewitt [phone] or [phone] Referred by: WARD VENEGAS ([id number])) Referred for: weakness Referral Code: ?200 ??301 [...] with spinal stenosis and clinical correlation advised. Brnat Hewitt (127 or [phone])/ACV NERVE CONDUCTIONS ??Record Rep ?? Normal ??Normal [...] Quinn Hewitt M.D. at 04/09/2023 9:11:58 AM MANAGER BASKETBALL Procedure Note Quinn Hewitt M.D. - 04/09/2023 09-Apr-2023 Electromyography Final Report Study Number: 1 EMG Natural Resources Specialist: Quinn Hewitt. 127 or [phone] Referred by: WARD VENEGAS ([id number])) Referred for: weakness Referral Code: 200 301 [...] and clinicalcorrelation advised. Brant Hewitt (127 or [phone])/ACV NERVE CONDUCTIONS Record Rep Normal Normal Distal [...] ChristopherJ. Hewitt M.D. at 04/09/2023 9:11:58 AM MANAGER BASKETBALL Ward Venegas M.D. NEUROLOGY ORDERABLES [facility] * Subcutaneous Fat Aspirate (04/09/2023 6:16 AM MANAGER BASKETBALL) 04/10/2023 1:54 PM MANAGER BASKETBALL DHPM Report electronically signed by Monisha Ospina M.D. I verify that I have examined all relevant slides/material s for the specimen(s) and rendered or confirmed the diagnosis. 04/10/2023 1:54 PM MANAGER BASKETBALL PM Gross Description The subcutaneous fat aspirate used for diagnostic purposes consists of 0.5 mL fat. 04/10/2023 1:54 PM MANAGER BASKETBALL DHPM Interpretation FINAL DIAGNOSIS Congo red stain, abdominal subcutaneous fat aspirate specimen: Amyloid is absent. 04/10/2023 1:54 PM MANAGER BASKETBALL PM 04/09/2023 6:16 AM MANAGER BASKETBALL 04/09/2023 6:16 AM MANAGER BASKETBALL Ward Venegas M.D. LAB PATHOLOGY/CYTOLO GY ORDERABLES Performing Organization Address [facility]/[place] [address] * Clostridioides (Clostridium) Difficile Toxin, Molecular Detection, PCR, Feces (04/08/2023 12:21 PM MANAGER BASKETBALL) C. difficile Toxin, F Negative Negative 04/08/2023 2:53 PM MANAGER BASKETBALL DT Stool (Stool) 04/08/2023 12: 21 PM MANAGER BASKETBALL 04/08/2023 1:07 PM MANAGER BASKETBALL Edson Nance M.D. LAB MICROBIOLOGY - G ENERAL ORDERABLES Performing Organization Address [facility] [place] [address] * Vascular Endothelial Growth Factor (04/08/2023 6:23 AM MANAGER BASKETBALL) VEGF, P 22.6 <=96.2 pg/mL 04/10/2023 1:59 PM MANAGER BASKETBALL [facility] Comment: ----ADDITIONAL INFORMATION---- This test was developed and its performance characteristics determined by [facility] in a manner consistent with CLIA requirements. This test has not been cleared or approved by the U.S. Food and Drug Administration. Blood (Blood, Venous) 04/08/2023 6:23 AM MANAGER BASKETBALL 04/09/2023 7:22 AM MANAGER BASKETBALL Syed Palmer LAB BLOO D NON ADD-ON Performing Organization Address City/[facility] Co de Phone Number [facility] [address] [place] [address] [facility] [address] [place] [address] [place] [address] * 1,25-Dihydroxyvitamin D (04/08/2023 6:23 AM MANAGER BASKETBALL) 1, 25 DIHYDROXYVITAMIN D, S 66 18 - 78 pg/mL 04/10/2023 2:05 PM MANAGER BASKETBALL [facility] Comment: ----ADDITIONAL INFORMATION---- This test was developed and its performance characteristics determined by [facility] in a manner consistent with CLIA requirements. This test has not been cleared or approved by the U.S. Food and Drug Administration. Blood (Blood, Venous) 04/08/2023 6:23 AM MANAGER BASKETBALL 04/09/2023 7:43 AM MANAGER BASKETBALL Syed Palmer LAB BLOO D ADD-ON Performing Organization Address City/[facility]/ZIP Co de Phone Number [facility] [address] [place] [address] [facility] [address] [place] [address] [place] [address] * Copper (04/06/2023 3:34 PM MANAGER BASKETBALL) Copper, S 97 77 - 206 mcg/dL 04/09/2023 5:59 PM MANAGER BASKETBALL [facility] Comment: ----ADDITIONAL INFORMATION---- This test was developed and its performance characteristics determined by [facility] in a manner consistent with CLIA requirements. This test has not been cleared or approved by the U.S. Food and Drug Administration. Blood (Blood, Venous) 04/06/2023 3:34 PM MANAGER BASKETBALL 04/06/2023 9:42 PM MANAGER BASKETBALL Ward Venegas M.D. LAB BLOOD NON ADD-ON Performing Organization Address [facility] Co de Phone Number [facility] [address] [place] [address] [facility] [address] [place] [address] [place] [address] * Zinc (04/06/2023 3:34 PM MANAGER BASKETBALL) Only the most recent of2 resultswithin the time period is included. [facility] Signature Zinc, S 64 60 - 106 mcg/dL 04/09/2023 5:59 PM MANAGER BASKETBALL [facility] Comment: ----ADDITIONAL INFORMATION---- This test was developed and its performance characteristics determined by [facility] in a manner consistent with CLIA requirements. This test has not been cleared or approved by the U.S. Food and Drug Administration. Blood (Blood, Venous) 04/06/2023 3:34 PM MANAGER BASKETBALL 04/06/2023 9:42 PM MANAGER BASKETBALL Ward Venegas M.D. LAB BLOOD NON ADD-ON Performing Organization Address [facility] Co de Phone Number [facility] [address] [place] [address] [facility] [address] [place] [address] [place] [address] * MR Thoracic Spine without and with IV Contrast (04/06/2023 2:37 PM MANAGER BASKETBALL) Anatomical Region Laterality Modality Thoracic Spine, Neuroradiolo gy RST LOS, Neuroradiology ARZ LOS, Neuroradiology FLA LOS N/A Magnetic Resonance Impressions 04/06/2023 4:20 PM MANAGER BASKETBALL 1. ??No acute findings in the thoracic spine, including fracture, cord signal abnormality, marrow replacing lesion, or suspicious enhancement. 2. ??Moderate thoracic spondylosis without significant spinal canal or neural foraminal narrowing. 3. ??Redemonstrated moderate-advanced degenerative changes at L1-L2, and moderate degenerative changes at T12-L1 as described. Narrative 04/06/2023 4:20 PM MANAGER BASKETBALL EXAM: MR THORACIC SPINE WITHOUT AND WITH [...] narrowing. Splenic enlargement is noted on the private mortgage banker safe localizer images (series 2, images 7- 8). [...] narrowing. Splenic enlargement is noted on the private mortgage banker safe localizer images (series 2,images 7- 8). IMPRESSION: 1. No acute findings in the thoracic spine, including fracture, cordsignal abnormality, marrow replacing lesion, or suspicious enhancement. 2. Moderate thoracic spondylosis without significant spinal canal orneural foraminal narrowing. 3. Redemonstrated moderate-advanced degenerative changes at L1-L2, andmoderate degenerative changes at T12-L1 as described. Ward CHAPA MRI PROCEDURES * MYD88, L265P, Somatic Gene Mutation, DNA Allele-Specific PCR (04/06/2023 12:35 PM MANAGER BASKETBALL) Specimen Type Bone marrow 04/10/2023 11:56 AM MANAGER BASKETBALL DTL Interpretation These results are considered preliminary and require complete integration with the current pathology case [id number] for final interpretation. ??The result should NOT [...] Pathologist: Baljinder Daniel M.D. 04/10/2023 11:56 AM MANAGER BASKETBALL DTL Comment: ----ADDITIONAL INFORMATION---- DNA was extracted [...] developed and its performance characteristics determined by [facility] in a manner consistent with CLIA requirements. This test has not been cleared or approved by the U.S. Food and Drug Administration. 04/06/2023 12:3 5 PM MANAGER BASKETBALL 04/09/2023 12:52 PM MANAGER BASKETBALL Ghulam Palmer M.D. LAB GEN ETIC TESTING [facility] [address] [place] [address], [facility] DT 200 [facility] [address] [place] [address] * DE DX BONE MARROW BX & ASPIR (04/06/2023 9:40 AM MANAGER BASKETBALL) Bone Marrow Narrative MMODAL - 04/06/2023 9:40 AM MANAGER BASKETBALL Weston Ren R.N. ? 04/06/2023 ??9:41 AM [...] B-cell Lymphoma, Specified FISH (04/06/2023 9:15 AM MANAGER BASKETBALL) Result Summary Normal 04/17/2023 1:51 PM MANAGER BASKETBALL DTL Disclaimer Applicable to Analyte Specific Reagent (ASR) and Laboratory Developed Tests (LDT). This test was developed and its performance characteristics determined by [facility] in a manner consistent with CLIA requirements. It has not been cleared or approved by the U.S. Food and Drug Administration. This FISH test does not rule out other chromosome abnormalities. 04/17/2023 1:51 PM MANAGER BASKETBALL DTL Released By Quiana Hall, Ph.D. 04/17/2023 1:51 PM MANAGER BASKETBALL DTL Result Table ----- Abnormality Name ? Result ?? Abn% ?? Cutoff% ?? -7q32(D7Z1x2,7q32 x1) ? Normal ? <12.0 ? -17p13.1(TP53x1,D 17Z1x2) ? Normal ? <15.0 ? -17(TP53,D17Z1)x1 ? Normal ? <10.0 ? ----- 04/17/2023 1:51 PM MANAGER BASKETBALL DTL Result Interphase FISH is normal for all loci studied. 04/17/2023 1:51 PM MANAGER BASKETBALL DTL Reason for Referral cytopenias 04/17/2023 1:51 PM MANAGER BASKETBALL DTL Probes Requested 7q32 and TP53 04/17 1:51 PM MANAGER BASKETBALL DTL Specimen Bone Marrow 04/17/2023 1:51 PM MANAGER BASKETBALL DTL Method Locus and probes ?[Strategy;#Nucle i;Vendor] ----- 7CEN(D7Z1),7q32(7q 32) ? [COPY#;100;LDT] 17p13(TP53),17CEN( D17Z1) ? [COPY#;100;AM] Probe strategies include: COPY#=region gain and loss. Scoring Method: Manual Probe vendors include: T = [facility] Developed AM = [employer], [employer] ([place], [place]) 04/17/2023 1:51 PM MANAGER BASKETBALL DTL Interpretation The result is within normal limits for the B-cell lymphoma FISH panel. A normal FISH result does not exclude the presence of lymphoma in the bone marrow. Additional cytogenetic studies are reported separately. This test was ordered in the context of a [facility] pathology consultation/case (#[id number]), and this result should be interpreted within the context of the pathology consultation/repor t. 04/17/2023 1:51 PM MANAGER BASKETBALL DTL Bone Marrow 04/06/2023 9:15 AM MANAGER BASKETBALL 04/06/2023 2:12 PM MANAGER BASKETBALL Ghulam Palmer M.D. LAB GEN ETIC TESTING [facility] [address] [place] [address], [facility] DTL [address] [facility] [address] [place] [address] * Myelodysplastic Syndrome by Flow Cytometry, Bone Marrow (04/06/2023 9:15 AM MANAGER BASKETBALL) MDS Panel Performed 4 3:47 PM MANAGER BASKETBALL DTL Final Diagnosis Report reactivated per laboratory in order to incorporate additional panels. Diagnosis unchanged. These results are considered preliminary and require complete integration with the current pathology case [id number] for final interpretation. ??The result should NOT be interpreted in isolation for the purposes of diagnosis or clinical management. 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 ??The [...] for a definitive diagnosis. Reviewed by: Mei Mccarthy. 4 3:47 PM MANAGER BASKETBALL DTL Comment: REVISED RESULTS ----PREVIOUSLY REPORTED ---- These results are considered preliminary and require complete integration with the current pathology case [id number] for final interpretation. ??The result should NOT be interpreted in isolation for the purposes of diagnosis or clinical management. 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 ??The [...] for a definitive diagnosis. Reviewed by: Mei HedrickSAdalid, Flagged as: ??(Reported 04/09/2023 11:25) Special Studies [...] received within validated guidelines. 4 3:47 PM MANAGER BASKETBALL DTL Comment: REVISED RESULTS ----PREVIOUSLY REPORTED ---- [...] Slide review not performed by flow technologist. 3:47 PM MANAGER BASKETBALL DTL Comment: ----ADDITIONAL INFORMATION---- This test was developed using an analyte specific reagent. Its performance characteristics were determined by [facility] in a manner consistent with CLIA requirements. This test has not been cleared or approved by the U.S. Food and Drug Administration. Bone Marrow 04/06/2023 9:15 AM MANAGER BASKETBALL 04/06/2023 1:35 PM MANAGER BASKETBALL Ghulam Palmer M.D. LAB GEN ETIC TESTING [facility] [address] [place] [address], [facility] DTL [address] [facility] [address] [place] [address] * Hematologic Disorders, DNA and RNA Extract and Hold (04/06/2023 9:15 AM MANAGER BASKETBALL) Specimen Type Bone marrow 04/10/2023 9:39 AM MANAGER BASKETBALL DTL DNA/RNA Extract and Hold Result see method 04/10/2023 9:39 AM MANAGER BASKETBALL DTL DNA/RNA Extraction Performed 2023 9:39 AM MANAGER BASKETBALL DTL Comment: ----ADDITIONAL INFORMATION---- DNA and total RNA were extracted from the sample and will be stored cryopreserved for 1 year from the extraction date. ??To request specific molecular test(s) from the [facility]'s test catalog, please contact [facility] at [phone]. Method summary: DNA and RNA were extracted from the received specimen and stored at -80 C. This test was developed and its performance characteristics determined by [facility] in a manner consistent with CLIA requirements. This test has not been cleared or approved by the U.S. Food and Drug Administration. 04/06/2023 9:15 AM MANAGER BASKETBALL 04/06/2023 1:58 PM MANAGER BASKETBALL Ghulam Palmer M.D. 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 See below for Variants of Unknown Significance and Additional Notes. Please see the section of Panel Gene List below for the complete list of genes tested. 04/20/2023 9:01 AM MANAGER BASKETBALL DTL Clinical Trials Information regarding possible clinical trials for this patient can be found at the following sites: 1). ClinicalTrials.gov: http://clinicaltrial s.gov/ct2/search/adv anced 2). [facility]: http://www.[place].[facility]/ research/clinical-tr ials 3). National Cancer [place]: http://www.cancer.go v/clinicaltrials/[facility] 4). The Leukemia & Lymphoma Society's Clinical Trial Support Center https://www.hematolo gy.org/education/cli taylor/clinical-tri th-nomfskn-ylwkty 04/20/2023 9:01 AM MANAGER BASKETBALL DTL Variants of Unknown Significance (VUS) None The VUS variants listed here (with approximate variant allele %) are not sufficiently characterized in the current literature and are therefore of uncertain clinical significance at this time. They are reported here for future reference in the event they become clinically significant in the light of new scientific data. 04/20/2023 9:01 AM MANAGER BASKETBALL DTL Additional Information None 04/20/2023 9:01 AM MANAGER BASKETBALL DTL Method A portion of the testing process was performed at [facility] site [id number]. DNA is extracted from peripheral blood or [...] developed and its performance characteristics determined by [facility] in a manner consistent with CLIA requirements. This test has not been cleared or approved by the U.S. Food and Drug Administration. *Some genetic or genomic alterations such as very large insertion/deletion events, copy number alterations (CYBER SPECIAL AGENT) and gene translocation events are not detected by this assay. 04/20/2023 9:01 AM MANAGER BASKETBALL DTL Disclaimer CLINICAL DISCLAIMER The finding of [...] (clonal cytopenias of uncertain significance, CCUS) [PMIDs: [id number], [id number], [id number], and [id number]]. Distinction between CHIP or CCUS and a [...] very large insertion/deletion events, copy number alterations (CYBER SPECIAL AGENT) and gene translocation events are not detected by this assay. 04/20/2023 9:01 AM [facility] DT OncoHeme Panel Gene list [id number] [...] time of the report. 04/20/2023 9:01 AM MANAGER BASKETBALL DTL Released by Signing Pathologist: Baljinder Daniel M.D. 04/20/2023 9:01 AM MANAGER BASKETBALL DTL Interpretation These results are considered preliminary and require complete integration with the current pathology case [id number] for final interpretation. ??The result should NOT be interpreted in isolation for the purposes of diagnosis or clinical management. 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 Mutation effect: ??The missense p.Njm478Phv (R882H) mutation is frequently identified in hematological malignancies. R882 mutations are associated with tumorigenesis through disruption of normal DNA methylation processes. They demonstrate decreased methyltransferase activity and increased cellular proliferation in vitro (Angel et al., 2011, [id number]; Mora et al., 2013, 94365025). Disease associations: Approximately 19% of individuals with acute myeloid leukemia (AML) have a somatic mutation in the DNMT3A gene ([email or web address]://[email or web address].[email or web address].uk/cosmic). The presence of DNMT3A mutations, particularly mutations at codon 882, have been reported to be a poor prognostic factor in AML (Angel et al., 2011, [id number]; Cronin et al., 2012, 97603957; Kalyna et al., 2012, 03932954; Shisrideviov et al., 2013, 49233736). However, other studies have not found DNMT3A mutation status to have significant impact on survival outcome (Chrsital et al., 2013, 77906159; Mora et al., 2013, 77182686). Approximately 7-13% of individuals with myelodysplastic syndrome (MDS), myeloproliferative neoplasm (MPN) or MDS/MPN have a somatic mutation in the DNMT3A gene (http://[email or web address].uk.cosmic). Some research suggests that the presence of DNMT3A mutations is a poor prognostic factor in MDS (Nahed et al., 2014, 86599112; Colin et al., 2011, 34494510), whereas other studies have not found DNMT3A mutation status to be significantly associated with prognosis in MDS (Roller et al., 2013, 46557407). The presence of DNMT3A mutations shows no clear impact on survival outcome in primary myelofibrosis or chronic myelomonocytic leukemia patients (Kenneth et al., 2013, 04812427; Theodore et al., 2014, 28226367). NOTE: Detection of a genetic alteration in [...] significance (CCUS) (Sheila Pérez et al., 2017, [id number]). Clinical and pathologic correlation is suggested in this setting. Therapeutic implications: DNA methyltransferase inhibitors such as FDA-approved hypomethylating agents azacytidine and decitabine have shown therapeutic benefits in some MDS and AML patients. Although their effects on inactivating/damagin g DNMT3A mutations are currently elusive, therapy responses have been reported in some MDS and AML patients with DNMT3A mutations (Laylao et al., 2014, 01217301; Checo et al., 2014, 87575515). In AML patients younger than 60 years of age, DNMT3A mutations predicted an improved outcome with high-dose induction therapy (Catalan et al., 2012, 66849402). 04/20/2023 9:01 AM MANAGER BASKETBALL DTL 04/06/2023 9:15 AM MANAGER BASKETBALL 04/06/2023 1:58 PM MANAGER BASKETBALL Ghulam Palmer M.D. LAB GEN ETIC TESTING [facility] [address] [place] [address], [facility] DTL [address] [facility] [address] [place] [address] * Chromosome Analysis, Hematologic Disorders, Bone Marrow (04/06/2023 9:15 AM MANAGER BASKETBALL) Result Summary Normal 04/13/2023 9:49 AM MANAGER BASKETBALL DTL Karyotype 46,XX[20] 04/13/2023 9:49 AM MANAGER BASKETBALL DTL Reason for referral cytopenias 04/13/2023 9:49 AM MANAGER BASKETBALL DTL Specimen Bone Marrow 04/13/2023 9:49 AM MANAGER BASKETBALL DTL Method Culture without mitogens 04/13/2023 9:49 AM MANAGER BASKETBALL DTL Banding Method Band Resolution: <400 Stain Name Cells ? Cells Counted Karyogr ams Prepared ? Analyzed ? GTL ? 20 ? 0 ? 2 ? Total ? 20 ? 0 ? 2 ? Ng to Stain Name: GTL=G-banding; QFQ=Q-banding; DAPI=DAPI-stain ing; CBL=C-banding; AGNOR=Silver-st aining; NON=Non-banded The sum of Cells Analyzed and Cells Counted equals the total cells examined. 04/13/2023 9:49 AM MANAGER BASKETBALL DTL Additional Information A portion of the testing process was performed at [facility] site [id number] and [id number]. 04/13/2023 9:49 AM MANAGER BASKETBALL DTL Released by Brandt Roberts M.D. 04/13/2023 9:49 AM MANAGER BASKETBALL DTL Interpretation No clonal abnormality was apparent. Additional cytogenetic studies are reported separately. This test was ordered in the context of a [facility] pathology consultation/ca se (#[id number]), and this result should be interpreted within the context of the pathology consultation/re port. 04/13/2023 9:49 AM MANAGER BASKETBALL DTL Bone Marrow 04/06/2023 9:15 AM MANAGER BASKETBALL 04/06/2023 2:12 PM MANAGER BASKETBALL Ghulam Palmer M.D. LAB GEN ETIC TESTING [facility] [address] [place] [address], [facility] DTL 200 [facility] [address] [place] [address] * Hematopathology (04/06/2023 6:11 AM MANAGER BASKETBALL) 04/10/2023 10:34 AM [facility] Report electronically signed by Mei Mccarthy. I verify that I have examined all relevant slides/materials for the specimen(s) and rendered or confirmed the diagnosis. 04/10/2023 10:34 AM [facility] Gross Description B: Core biopsy specimens were [...] Grossed by CARLOS ALBERTO. 04/10/2023 10:34 AM MANAGER BASKETBALL DHPM Disclaimer This test was developed using an analyte specific reagent. Its performance characteristics were determined by [facility] in a manner consistent with CLIA requirements. This test has not been cleared or approved by the U.S. Food and Drug Administration. Test results for (IHC or QUANG) testing are valid for specimens fixed between 6 and 72 hours. ??Delay to fixation, under fixation or over fixation fall outside of guidelines and may affect these results. 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 2645G>A; p.Wcr004Xee (10%) No other pathogenic mutations were detected [...] by Baljinder Daniel M.D. Signed by Mei Palmer 04/23/2023 11:47 AM ADDENDUM FISH analysis for B-cell lymphoma, specified, bone marrow ([id number]; 04/06/2023): The result is within normal limits for the B-cell lymphoma FISH panel. See cytogenetic report for complete details. Signed by Megan Osullivan M.D. 04/18/2023 12:46 PM ADDENDUM Cytogenetic analysis, bone marrow ([id number], 04/06/2023): 46,XX[20] No clonal abnormality was apparent. See cytogenetics report for complete details. Signed by Megan Osullivan M.D. 04/16/2023 2:53 PM ADDENDUM Molecular analysis for MYD88 L265P Mutation Analysis, Allele-specific PCR, bone marrow ([id number]; 04/06/2023): Negative for MYD88 L265P alteration. See molecular report for complete details. Molecular Hematopathology studies interpreted by Baljinder Daniel M.D. Signed by Mei Palmer 04/14/2023 5:08 PM 04/23/2023 11:47 AM [facility] Comment:REVISED RESULTS Interpretation FINAL DIAGNOSIS Peripheral blood, [...] AE1/AE3, granzyme B, mammaglobin, TIA-1: ??The abnormal AH41-uontjuii B lymphocytes are associated with [id number] plasma cells in a background of CD3-positive [...] from date of extraction. 04/23/2023 11:47 AM MANAGER BASKETBALL [facility] 04/06/2023 6:11 AM MANAGER BASKETBALL 04/06/2023 6:11 AM MANAGER BASKETBALL Ghulam Palmer M.D. LAB FELIPE G PATH ORDERABLES [facility] [address] [place] [address], [facility] [address] [place] [address] * Syphilis IgG w/ Reflex, EIA, Serum (04/05/2023 3:45 PM MANAGER BASKETBALL) [facility] Syphilis IgG w/ Reflex, EIA, S Nonreactive Nonreactive 04/06/2023 12:30 PM MANAGER BASKETBALL [facility] Comment: No serologic evidence of infection with T. pallidum (syphilis). ??Repeat testing may be considered in patients with suspected acute or primary syphilis in 2-4 weeks. For additional information on interpretation of the syphilis reverse algorithm and results, see: [email or web address] Blood (Blood, Venous) 04/05/2023 3:45 PM MANAGER BASKETBALL 04/05/2023 7:45 PM MANAGER BASKETBALL Ward Venegas M.D. LAB MICROBIOLOGY - B LOOD ORDERABLES Performing Organization Address City/[facility] [address]/ZIP Co de Phone Number [facility] [address] [place] [address] [facility] [address] [place] [address] * Methylmalonic Acid (MMA), Quantitative (04/05/2023 3:45 PM MANAGER BASKETBALL) [facility] Methylmalonic Acid, QN, S 0.15 <=0.40 nmol/mL 04/10/2023 8:05 AM MANAGER BASKETBALL DT Comment: ----ADDITIONAL INFORMATION---- This test was developed and its performance characteristics determined by [facility] in a manner consistent with CLIA requirements. This test has not been cleared or approved by the U.S. Food and Drug Administration. Blood (Blood, Venous) 04/05/2023 3:45 PM MANAGER BASKETBALL 04/06/2023 7:47 AM MANAGER BASKETBALL Ward Venegas M.D. LAB BLOOD ADD-ON [facility] [address] [place] [address], [place] DTL [address] [place] [address] * (ABNORMAL) Immunoglobulin Free Light Chains (04/05/2023 3:45 PM MANAGER BASKETBALL) [facility] Summer Set Free Light Chain, S 2.90(H) 0.3300 - 1.94 mg/dL 04/06/2023 9:45 AM MANAGER BASKETBALL [facility] Lambda Free Light Chain, S 2.03 0.5700 - 2.63 mg/dL 04/06/2023 9:45 AM MANAGER BASKETBALL [facility] Summer Set/Lambda FLC Ratio 1.43 0.2600 - 1.65 04/06/2023 9:45 AM MANAGER BASKETBALL [facility] Blood (Blood, Venous) 04/05/2023 3:45 PM MANAGER BASKETBALL 04/06/2023 6:18 AM MANAGER BASKETBALL Ward Venegas M.D. LAB BLOOD ADD-ON [facility] [address] [place] [address] [facility] [address] [place] [address] * (ABNORMAL) Myelopathy, Autoimmune/Paraneoplastic Evaluation (04/05/2023 3:44 PM MANAGER BASKETBALL) Pathologist [facility] Autoimmune Myelopathy Interp, S see below 04/19/2023 10:13 AM MANAGER BASKETBALL DTL Comment: The following antibody was identified: [...] * IFA Notes None. 04/19/2023 10:13 AM MANAGER BASKETBALL DTL Amphiphysin Ab, S Negative Negative 024 10:13 AM MANAGER BASKETBALL DTL Comment: ----ADDITIONAL INFORMATION---- This test was developed and its performance characteristics determined by [facility] in a manner consistent with CLIA requirements. This test has not been cleared or approved by the U.S. Food and Drug Administration. AGNA-1, S Negative Negative 04/19/2023 10:13 AM MANAGER BASKETBALL DTL Comment: ----ADDITIONAL INFORMATION---- This test was developed and its performance characteristics determined by [facility] in a manner consistent with CLIA requirements. This test has not been cleared or approved by the U.S. Food and Drug Administration. ANALILIA-1, S Negative Negative 04/19/2023 10:13 AM MANAGER BASKETBALL DTL Comment: ----ADDITIONAL INFORMATION---- This test was developed and its performance characteristics determined by [facility] in a manner consistent with CLIA requirements. This test has not been cleared or approved by the U.S. Food and Drug Administration. ANALILIA-2, S Negative Negative 04/19/2023 10:13 AM MANAGER BASKETBALL DTL Comment: ----ADDITIONAL INFORMATION---- This test was developed and its performance characteristics determined by [facility] in a manner consistent with CLIA requirements. This test has not been cleared or approved by the U.S. Food and Drug Administration. ANALILIA-3, S Negative Negative 04/19/2023 10:13 AM MANAGER BASKETBALL DTL Comment: ----ADDITIONAL INFORMATION---- This test was developed and its performance characteristics determined by [facility] in a manner consistent with CLIA requirements. This test has not been cleared or approved by the U.S. Food and Drug Administration. AP3B2 IFA, S Negative Negative 04/19/2023 10:13 AM MANAGER BASKETBALL DTL Comment: ----ADDITIONAL INFORMATION---- This test was developed and its performance characteristics determined by [facility] in a manner consistent with CLIA requirements. This test has not been cleared or approved by the U.S. Food and Drug Administration. CRMP-5-IgG Western Blot, S Negative Negative 04/19/2023 10:13 AM MANAGER BASKETBALL DTL Comment: ----ADDITIONAL INFORMATION---- This test was developed and its performance characteristics determined by [facility] in a manner consistent with CLIA requirements. This test has not been cleared or approved by the U.S. Food and Drug Administration. DPPX Ab IFA, S Negative Negative 04/19/2023 10:13 AM MANAGER BASKETBALL DTL Comment: ----ADDITIONAL INFORMATION---- This test was developed and its performance characteristics determined by [facility] in a manner consistent with CLIA requirements. This test has not been cleared or approved by the U.S. Food and Drug Administration. RONDA-B-R Ab CBA, S Negative Negative 2023 10:13 AM MANAGER BASKETBALL DTL Comment: ----ADDITIONAL INFORMATION---- This test was developed and its performance characteristics determined by [facility] in a manner consistent with CLIA requirements. This test has not been cleared or approved by the U.S. Food and Drug Administration. GAD65 Ab Assay, S 0.03(H) <=0.02 nmol/L 04/19/2023 10:13 AM MANAGER BASKETBALL DTL Comment: ----ADDITIONAL INFORMATION---- This test was developed and its performance characteristics determined by [facility] in a manner consistent with CLIA requirements. This test has not been cleared or approved by the U.S. Food and Drug Administration. GFAP IFA, S Negative Negative 04/19/2023 10:13 AM MANAGER BASKETBALL DTL Comment: ----ADDITIONAL INFORMATION---- This test was developed and its performance characteristics determined by [facility] in a manner consistent with CLIA requirements. This test has not been cleared or approved by the U.S. Food and Drug Administration. mGluR1 Ab IFA, S Negative Negative 04/19/19 10:13 AM MANAGER BASKETBALL DTL Comment: ----ADDITIONAL INFORMATION---- This test was developed and its performance characteristics determined by [facility] in a manner consistent with CLIA requirements. This test has not been cleared or approved by the U.S. Food and Drug Administration. MOG FACS, S Negative Negative 04/19/2023 10:13 AM MANAGER BASKETBALL DTL Comment: ----ADDITIONAL INFORMATION---- This test was developed and its performance characteristics determined by [facility] in a manner consistent with CLIA requirements. This test has not been cleared or approved by the U.S. Food and Drug Administration. NIF IFA, S Negative Negative 04/19/2023 10:13 AM MANAGER BASKETBALL DTL Comment: ----ADDITIONAL INFORMATION---- This test was developed and its performance characteristics determined by [facility] in a manner consistent with CLIA requirements. This test has not been cleared or approved by the U.S. Food and Drug Administration. NMO/AQP4 FACS, S Negative Negative 04/19/19 10:13 AM MANAGER BASKETBALL DTL Comment: ----ADDITIONAL INFORMATION---- This test was developed and its performance characteristics determined by [facility] in a manner consistent with CLIA requirements. This test has not been cleared or approved by the U.S. Food and Drug Administration. Neurochondrin IFA, S Negative Negative 04/19/2023 10:13 AM MANAGER BASKETBALL DTL Comment: ----ADDITIONAL INFORMATION---- This test was developed and its performance characteristics determined by [facility] in a manner consistent with CLIA requirements. This test has not been cleared or approved by the U.S. Food and Drug Administration. CHIEF OF POLICE-1, S Negative Negative 04/19/2023 10:13 AM MANAGER BASKETBALL DTL Comment: ----ADDITIONAL INFORMATION---- This test was developed and its performance characteristics determined by [facility] in a manner consistent with CLIA requirements. This test has not been cleared or approved by the U.S. Food and Drug Administration. CHIEF OF POLICE-2, S Negative Negative 04/19/2023 10:13 AM MANAGER BASKETBALL DTL Comment: ----ADDITIONAL INFORMATION---- This test was developed and its performance characteristics determined by [facility] in a manner consistent with CLIA requirements. This test has not been cleared or approved by the U.S. Food and Drug Administration. Septin-7 IFA, S Negative Negative 10:13 AM MANAGER BASKETBALL DTL Comment: ----ADDITIONAL INFORMATION---- This test was developed and its performance characteristics determined by [facility] in a manner consistent with CLIA requirements. This test has not been cleared or approved by the U.S. Food and Drug Administration. Blood (Blood, Venous) 04/05/2023 3:44 PM MANAGER BASKETBALL 04/11/2023 8:58 AM MANAGER BASKETBALL Yazan Osei M.D. LAB BLOOD ADD-ON [facility] [address] [place] [address], [facility] DT [address] [facility] [address] [place] [address] * PLASMA CENTER TECHNICIAN Demyelinating Disease Eval, Serum (04/05/2023 3:44 PM MANAGER BASKETBALL) PLASMA CENTER TECHNICIAN Demyelinating Disease Interp, S TNP 04/13/2023 3:50 PM MANAGER BASKETBALL DTL Comment:Test was added to a different order number. See [id number]. NMO/AQP4 FACS, S CANCELED Negative 04/13/19 3:50 PM MANAGER BASKETBALL DTL Comment: REVISED RESULTS Test was added to a different order number. ----ADDITIONAL INFORMATION---- This test was developed and its performance characteristics determined by [facility] in a manner consistent with CLIA requirements. This test has not been cleared or approved by the U.S. Food and Drug Administration. ----PREVIOUSLY REPORTED ---- Negative, Flagged as: Normal (Reported 04/11/2023 23:33) MOG FACS, S CANCELED Negative 04/13/2023 3:50 PM MANAGER BASKETBALL DTL Comment: REVISED RESULTS Test was added to a different order number. ----ADDITIONAL INFORMATION---- This test was developed and its performance characteristics determined by [facility] in a manner consistent with CLIA requirements. This test has not been cleared or approved by the U.S. Food and Drug Administration. ----PREVIOUSLY REPORTED ---- Negative, Flagged as: Normal (Reported 04/10/2023 06:09) Blood (Blood, Venous) 04/05/2023 3:44 PM MANAGER BASKETBALL 04/06/2023 8:16 AM MANAGER BASKETBALL Ward Venegas M.D. LAB BLOOD ADD-ON Performing Organization Address [facility]/ZIP Co de Phone Number [facility] [address] [place] [address], [place] [address] * Folate (04/05/2023 3:44 PM MANAGER BASKETBALL) Only the most recent of2 resultswithin the time period is included. Pathologist [facility] Folate, S 9.0 >=4.0 mcg/L 04/06/2023 7: 39 AM MANAGER BASKETBALL DTL Blood (Blood, Venous) 04/05/2023 3:44 PM MANAGER BASKETBALL 04/05/2023 4:25 PM MANAGER BASKETBALL Ward Venegas M.D. LAB BLOOD ADD-ON Performing Organization Address City/[facility] [address]/ZIP Co de Phone Number [facility] [address] [place] [address], [facility] [address] [place] [address] * (ABNORMAL) Thiamine (Vitamin B1), Whole Blood (04/05/2023 3:43 PM MANAGER BASKETBALL) Thiamine (Vitamin B1), WB 56(L) 70 - 180 nmol/L 04/09/2023 2:27 PM MANAGER BASKETBALL [facility] Comment: ----ADDITIONAL INFORMATION---- This test was developed and its performance characteristics determined by [facility] in a manner consistent with CLIA requirements. This test has not been cleared or approved by the U.S. Food and Drug Administration. Blood (Blood, Venous) 04/05/2023 3:43 PM MANAGER BASKETBALL 04/06/2023 10:17 AM MANAGER BASKETBALL Ward Venegas M.D. LAB BLOOD NON ADD-ON Performing Organization Address [facility]/ZIP Co de Phone Number [facility] [address] [place] [address] [facility] [address] [place] [address] [place] [address] * Vitamin E Level (04/05/2023 3:43 PM MANAGER BASKETBALL) A-Tocopherol, Vitamin E 11.9 5.5 - 17.0 mg/L 04/12/2023 1:21 PM MANAGER BASKETBALL [facility] Comment: ----ADDITIONAL INFORMATION---- This test was developed and its performance characteristics determined by [facility] in a manner consistent with CLIA requirements. This test has not been cleared or approved by the U.S. Food and Drug Administration. Blood (Blood, Venous) 04/05/2023 3:43 PM MANAGER BASKETBALL 04/06/2023 7:54 AM MANAGER BASKETBALL Ward Venegas M.D. LAB BLOOD NON ADD-ON Performing Organization Address City/[facility] [address]/ZIP Co de Phone Number [facility] [address] [place] [address] [facility] [address] [place] [address] [place] [address] * Vitamin B3 and Metabolites (04/05/2023 3:42 PM MANAGER BASKETBALL) Nicotinic Acid (Niacin) <5.0 Cutoff:<5 .0 ng/mL 04/07/2023 11:45 AM MANAGER BASKETBALL [facility] Nicotinamide 11.3 5.0 - 48.0 ng/mL 04/07/2023 11:45 AM [facility] Nicotinuric Acid <5.0 Cutoff:<5 .0 ng/mL 04/07/2023 11:45 AM [facility] Comment: ----ADDITIONAL INFORMATION---- Testing performed by Liquid Chromatography-Tandem Mass Spectrometry (LC-MS/MS) This test was developed and its performance characteristics determined by [facility] in a manner consistent with CLIA requirements. This test has not been cleared or approved by the U.S. Food and Drug Administration. Blood (Blood, Venous) 04/05/2023 3:42 PM MANAGER BASKETBALL 04/06/2023 12:01 PM MANAGER BASKETBALL Ward Venegas M.D. LAB BLOOD NON ADD-ON Performing Organization Address [facility] de Phone Number [facility] [address] [place] [address] [facility] [address] [place] [address] [place] [address] * (ABNORMAL) Riboflavin (Vitamin B2) (04/05/2023 3:41 PM MANAGER BASKETBALL) [facility] Riboflavin (Vitamin B2), P 30(H) 1 - 19 mcg/L 04/09/2023 7:30 AM [facility] Comment: ----ADDITIONAL INFORMATION---- This test was developed and its performance characteristics determined by [facility] in a manner consistent with CLIA requirements. This test has not been cleared or approved by the U.S. Food and Drug Administration. Blood (Blood, Venous) 04/05/2023 3:41 PM MANAGER BASKETBALL 04/06/2023 7:22 AM MANAGER BASKETBALL Ward Venegas M.D. LAB BLOOD NON ADD-ON Performing Organization Address City/[facility] [address]/ZIP Co de Phone Number [facility] [address] [place] [address] [facility] [address] [place] [address] [place] [address] * Ascorbic Acid (Vitamin C) (04/05/2023 3:41 PM MANAGER BASKETBALL) Ascorbic Acid, P 0.6 0.4 - 2.0 mg/dL 04/07/2023 12:08 PM MANAGER BASKETBALL [facility] Comment: ----ADDITIONAL INFORMATION---- This test was developed and its performance characteristics determined by [facility] in a manner consistent with CLIA requirements. This test has not been cleared or approved by the U.S. Food and Drug Administration. Blood (Blood, Venous) 04/05/2023 3:41 PM MANAGER BASKETBALL 04/06/2023 2:44 PM MANAGER BASKETBALL Ward Venegas M.D. LAB BLOOD NON ADD-ON [facility] [address] [place] [address] [facility] [address] [place] [address] [place] [address] * Leukemia/Lymphoma Immunophenotyping by Flow Cytometry, Blood (04/05/2023 3:11 PM MANAGER BASKETBALL) Pathologist [facility] LCMSB Result Performed 04/09/2023 11:26 AM MANAGER BASKETBALL DTL Final Diagnosis: Peripheral blood, flow cytometric [...] Reviewed by: Mei Palmer 04/09/2023 11:26 AM MANAGER BASKETBALL DTL Special Studies: WBC: ??2.0 x 10(9)/L %Lymphs [...] received within validated guidelines. 04/09/2023 11:26 AM MANAGER BASKETBALL DTL Microscopic Description A Wsccdo-Grrlwn-tkemlye slide prepared from the flow cytometry specimen is examined. ??No morphologic features of acute leukemia or lymphoma are identified. 04/09/2023 11:26 AM MANAGER BASKETBALL DTL Comment: ----ADDITIONAL INFORMATION---- This test was developed using an analyte specific reagent. Its performance characteristics were determined by [facility] in a manner consistent with CLIA requirements. This test has not been cleared or approved by the U.S. Food and Drug Administration. Blood (Blood, Venous) 04/05/2023 3:11 PM MANAGER BASKETBALL 04/05/2023 4:21 PM MANAGER BASKETBALL Ward Venegas M.D. LAB GENETIC TESTING [facility] [address] [place] [address], [facility] [address] [facility] [address] [place] [address] * (ABNORMAL) EBV DNA Detect/Quant (04/05/2023 3:10 PM MANAGER BASKETBALL) [facility] EBV DNA Detect/Quant, P <35(A) Undetected IU/mL 04/06/2023 4:42 PM MANAGER BASKETBALL [facility] Comment: Result in log IU/mL is <1.54. EBV DNA is detected, but level present is <35 IU/mL (<1.54 log IU/mL). This assay cannot accurately quantify EBV DNA below this level. ----ADDITIONAL INFORMATION---- The quantification range of this assay is 35 to 100,000,000 IU/mL (1.54 log to 8.00 log IU/mL). Testing was performed using the priya EBV test ([employer] Blood (Blood, Venous) 04/05/2023 3:10 PM MANAGER BASKETBALL 04/05/2023 8:04 PM MANAGER BASKETBALL Ward Venegas M.D. LAB MICROBIOLOGY - B LOOD ORDERABLES [facility] [address] [place] [address] [facility] [address] [place] [address] [place] [address] * MR Cervical Spine without and with IV Contrast (04/05/2023 1:05 PM MANAGER BASKETBALL) Anatomical Region Laterality Modality Spine, Cervical Spine, Neuro radiology [facility], [facility], [facility] N/A Magneti c Resonance Impressions 04/05/2023 3:28 PM MANAGER BASKETBALL 1. ??Moderate multilevel cervical spondylosis (most pronounced at C4-C6) as described. No high-grade spinal canal or neural foraminal narrowing. 2. ??Prominent left greater than right C1-2 facet effusion which may function as a source of pain generation. 3. ??Otherwise, unremarkable cervical spine MRI without abnormal cord signal, marrow replacing lesion, or abnormal enhancement. Narrative 04/05/2023 3:28 PM MANAGER BASKETBALL EXAM: MR CERVICAL SPINE WITHOUT AND WITH [...] marrow replacing lesion, or abnormal enhancement. Ward CHAPA MRI PROCEDURES * MR Brain without and with IV Contrast (04/05/2023 1:05 PM MANAGER BASKETBALL) Anatomical Region Laterality Modality Head, Brain, Neuroradiology [facility], [facility], [facility] N/A Magnetic Resonance Impressions 04/05/2023 2:39 PM MANAGER BASKETBALL 1. ??No acute intracranial findings. Specifically, no evidence for acute territorial infarct. 2. ??T2 hyperintense lesions within the bilateral basal ganglia are unchanged dating back to MRI performed 06/13/2021 and should represent benign perivascular spaces. Narrative 04/05/2023 2:39 PM MANAGER BASKETBALL EXAM: MR BRAIN WITHOUT AND WITH IV [...] should representbenign perivascular spaces. Ward Venegas M.D. [facility] MRI PROCEDURES * Prothrombin Time (PT) (04/04/2023 8:29 AM MANAGER BASKETBALL) Prothrombin Time, P 12.3 9.4 - 12.5 sec 04/04/2023 9:38 AM MANAGER BASKETBALL [facility] INR 1.1 0.9 - 1.1 04/04/2023 9:38 AM MANAGER BASKETBALL DT Comment: ----ADDITIONAL INFORMATION---- Standard intensity warfarin therapeutic range: 2.0 to 3.0 ?? High intensity warfarin therapeutic range: 2.5 to 3.5 Blood (Blood, Venous) 04/04/2023 8:29 AM MANAGER BASKETBALL 04/04/2023 9:12 AM MANAGER BASKETBALL Alberto Robledo M.D. LAB BLOOD ADD-ON Performing Organization Address City/[facility] [address]/ZIP Co de Phone Number [address] [address], [address] [address] * Parathyroid Hormone-Related Peptide (PTHrP) (04/04/2023 8:28 AM MANAGER BASKETBALL) Pathologist [facility] PTH-Related Peptide <0.4 < or = 4.2 pmol/L 04/06/2023 2:27 PM MANAGER BASKETBALL [facility] Comment: ----ADDITIONAL INFORMATION---- This test was developed and its performance characteristics determined by [facility] in a manner consistent with CLIA requirements. This test has not been cleared or approved by the U.S. Food and Drug Administration. Blood (Blood, Venous) 04/04/2023 8:28 AM MANAGER BASKETBALL 04/04/2023 10:59 AM MANAGER BASKETBALL Cinda Henson M.D. LAB BLOOD NON ADD-ON [facility] [address] [place] [address] [facility] [address] [place] [address] [place] [address] * (ABNORMAL) Vitamin B12 Assay (04/04/2023 8:28 AM MANAGER BASKETBALL) Pathologist [facility] Vitamin B12 Assay, S 1300(H) 180 - 914 ng/L 04/04/2023 10:21 AM MANAGER BASKETBALL [facility] Comment: ----ADDITIONAL INFORMATION---- In patients being evaluated for vitamin B12 deficiency who have intrinsic factor blocking antibodies (IFBA), false elevations of B12 may occur due to IFBA interference thus potentially obscuring a physiological deficiency of B12. If observed B12 concentrations are discordant with clinical presentation, measurement of methylmalonic acid (MMA) should be considered. Blood (Blood, Venous) 04/04/2023 8:28 AM MANAGER BASKETBALL 04/04/2023 9:26 AM MANAGER BASKETBALL Cinda Henson M.D. LAB BLOOD ADD-ON Performing Organization Address City/[facility] [address]/ZIP Co de Phone Number [facility] [address] [place] [address], [facility] [address] [place] [address] * (ABNORMAL) Vitamin B6 Profile (PLP and PA) (04/04/2023 8:27 AM MANAGER BASKETBALL) [facility] Pyridoxal 5-Phosphate (PLP), P <2(L) 5 - 50 mcg/L 04/06/2023 2:12 PM [facility] Comment: ----ADDITIONAL INFORMATION---- This test was developed and its performance characteristics determined by [facility] in a manner consistent with CLIA requirements. This test has not been cleared or approved by the U.S. Food and Drug Administration. Pyridoxic Acid (PA), P <2(L) 3 - 30 mcg/L 04/06/2023 2:12 PM [facility] Comment: ----ADDITIONAL INFORMATION---- This test was developed and its performance characteristics determined by [facility] in a manner consistent with CLIA requirements. This test has not been cleared or approved by the U.S. Food and Drug Administration. Blood (Blood, Venous) 04/04/2023 8:27 AM MANAGER BASKETBALL 04/04/2023 3:34 PM MANAGER BASKETBALL Cinda Henson M.D. LAB BLOOD NON ADD-ON Performing Organization Address City/[facility] [address]/ZIP Co de Phone Number [facility] [address] [place] [address] [facility] [address] [place] [address] 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 Otherwise, no significant change since comparison or acute intracranial findings. Narrative 04/03/2023 6:31 PM MANAGER BASKETBALL EXAM: CT HEAD WITHOUT IV CONTRAST COMPARISON: [...] S * Patient Status (04/03/2023 4:44 PM MANAGER BASKETBALL) Pathologist [facility] FIO2 0.21 0.21=AIR 04/03/2023 4:53 PM MANAGER BASKETBALL [facility] Spont. breaths/min 22 04/03/2023 4:53 PM MANAGER BASKETBALL [facility] Blood 04/03/2023 4:44 PM MANAGER BASKETBALL 04/03/2023 4:53 PM MANAGER BASKETBALL Alberto Robledo M.D. LAB BLOOD NON AD D-ON [facility] [address] [place] [address], [facility] [address] [place] [address] * (ABNORMAL) Blood Gas with Coox, Venous (04/03/2023 4:44 PM MANAGER BASKETBALL) pO2, Venous, B 45 Not applicable mm Hg 04/03/2023 4:55 PM MANAGER BASKETBALL [facility] pCO2, Venous, B 49 41 - 51 mm Hg 04/03/2023 4:55 PM MANAGER BASKETBALL [facility] pH, Venous, B 7.44(H) 7.32 - 7.43 pH 024 4:55 PM MANAGER BASKETBALL [facility] Base Excess, Venous, B 9 Not applicable mmol/L 04/03/2023 4:55 PM MANAGER BASKETBALL [facility] HCO3, Venous, B 33 Not applicable mmol/L 04/03/2023 4:55 PM MANAGER BASKETBALL [facility] Hemoglobin, Venous, B 9.9(L) 11.6 - 15.0 g/dL 04/03/2023 4:55 PM MANAGER BASKETBALL [facility] O2Hb, Venous, B 72.5 Not applicable % 04/03/2023 4:55 PM MANAGER BASKETBALL [facility] COHb, Venous, B 1.6 <3.0 % 04/03/2023 4:55 PM MANAGER BASKETBALL [facility] MetHb, Venous, B 2.2(H) <1.5 % 04/03/2023 4:55 PM MANAGER BASKETBALL [facility] CtO2, Venous, B 10.1 Not Applicable vol % 04/03/2023 4:55 PM MANAGER BASKETBALL [facility] Sample Site, Venous, B Venipunct 04/03/2023 4:53 PM MANAGER BASKETBALL [facility] Blood (Blood, Venous) 04/03/2023 4:44 PM MANAGER BASKETBALL 04/03/2023 4:53 PM MANAGER BASKETBALL Alberto Robledo M.D. LAB BLOOD NON AD D-ON [facility] [address] [place] [address], [facility] STMA [facility] [address] [place] [address] * US Abdomen Complete (04/03/2023 10:30 AM MANAGER BASKETBALL) Anatomical Region Laterality Modality Abdomen, Ultrasound RST LOS, Ultrasound ARZ LOS, Ultrasound FLA LOS N/A Ultrasound Impressions 04/03/2023 10:41 AM MANAGER BASKETBALL 1. Normal liver. 2. Splenomegaly. Narrative 04/03/2023 10:41 AM MANAGER BASKETBALL EXAM: US ABDOMEN COMPLETE HISTORY: 82-year-old female [...] Normal liver. 2. Splenomegaly. Milli Faria M.D. IMG US PROCEDURES * M-protein Isotype, Mass-Fix Matrix-Assisted Laser Desorption/Ionization [id number] Mass Spectrometry, Random, Urine (04/02/2023 4:19 PM MANAGER BASKETBALL) Pathologist [facility] Flag M-protein Isotype MS, Random, U Negative Negative 04/06/2023 10:34 AM MANAGER BASKETBALL [facility] M-protein Isotype MS, Random, U No monoclonal protein detected. 04/06/2023 10:34 AM MANAGER BASKETBALL [facility] Comment: ----ADDITIONAL INFORMATION---- The submitted sample was assayed by five separate immunopurifications for IgG, IgA, IgM, kappa and lambda. ??The result reflects the findings of either no monoclonal protein detected or those monoclonal immunoglobulins that were detected. This test was developed and its performance characteristics determined by [facility] in a manner consistent with CLIA requirements. This test has not been cleared or approved by the U.S. Food and Drug Administration. Urine 04/02/2023 4:19 PM MANAGER BASKETBALL 04/03/2023 6:58 AM MANAGER BASKETBALL Milli Faria M.D. LAB URINE ORDERAB LES [facility] [address] [place] [address] [facility] [address] [place] [address] [place] [address] * (ABNORMAL) Electrophoresis, Protein, Random, Urine (04/02/2023 4:19 PM MANAGER BASKETBALL) [facility] Protein, Total, Random, U 19 mg/dL 04/02/2023 6:07 PM MANAGER BASKETBALL DTL Creatinine, Random, U 57 16 - 326 mg/dL 04/02/2023 6:07 PM MANAGER BASKETBALL DTL Protein/Creati nine Ratio 0.33(H) <0.18 mg/mg 04/02/2023 6:07 PM MANAGER BASKETBALL DTL Albumin, mg/dL 10.3 mg/dL 04/05/2023 8:20 AM MANAGER BASKETBALL [facility] Alpha-1 globulin, mg/dL 1.0 mg/dL 04/05/2023 8:20 AM MANAGER BASKETBALL [facility] Alpha-2 globulin, mg/dL 2.3 mg/dL 04/05/2023 8:20 AM MANAGER BASKETBALL [facility] Beta globulin, mg/dL 2.9 mg/dL 04/05/2023 8:20 AM MANAGER BASKETBALL [facility] Gamma globulin, mg/dL 2.9 mg/dL 04/05/2023 8:20 AM MANAGER BASKETBALL [facility] A/G Ratio 1.15 04/05/2023 8:20 AM MANAGER BASKETBALL [facility] Impression Small abnormality in gamma fraction. See Isotype. 04/05/2023 8:20 AM MANAGER BASKETBALL [facility] Urine (Urine, Catheter) 04/02/2023 4:19 PM MANAGER BASKETBALL 04/03/2023 6:58 AM MANAGER BASKETBALL Milli Faria M.D. LAB URINE ORDERAB LES [facility] [address] [place] [address] [address] [facility] [address] [place] [address] [place] [address] * Histoplasma and Blastomyces Antigen, Enzyme Immunoassay, Serum (04/02/2023 4:14 PM MANAGER BASKETBALL) [facility] Histoplasma/Blasto myces Ag Result Not Detected Not Detected 04/03/2023 10:08 AM MANAGER BASKETBALL [facility] Comment: No antigen from Histoplasma or Blastomyces detected. ??False negative results may occur depending on extent of disease, and/or site of infection. ??Repeat testing on a new specimen if clinically indicated. ?? Histoplasma/Blasto myces Ag Value Not Detected ng/mL 04/03/2023 10:08 AM [facility] Comment: ----ADDITIONAL INFORMATION---- This test was developed and its performance characteristics determined by [facility] in a manner consistent with CLIA requirements. This test has not been cleared or approved by the U.S. Food and Drug Administration. Blood (Blood, Venous) 04/02/2023 4:14 PM MANAGER BASKETBALL 04/02/2023 7:42 PM MANAGER BASKETBALL Milli Faria M.D. LAB MICROBIOLOGY - BLOOD ORDERABLES Performing Organization Address [facility]/ZIP Co de Phone Number [facility] [address] [place] [address] [facility] [address] [place] [address] [place] [address] * (ABNORMAL) M-protein Isotype MALDI-TOF MS, Serum (04/02/2023 4:14 PM MANAGER BASKETBALL) Flag, M-protein Isotype Positive(A) Negative 04/04/2023 12:05 PM MANAGER BASKETBALL [facility] M-protein Isotype MALDI-TOF MS IgM kappa, small monoclonal. ~Suggest repeat testing in 6-12 months if clinically indicated. 04/04/2023 12:05 PM [facility] Comment: ----ADDITIONAL INFORMATION---- The submitted sample was assayed by five separate immunopurifications for IgG, IgA, IgM, kappa and lambda. ??The result reflects the findings of either no monoclonal protein detected or those monoclonal immunoglobulins that were detected. This test was developed and its performance characteristics determined by [facility] in a manner consistent with CLIA requirements. This test has not been cleared or approved by the U.S. Food and Drug Administration. Blood 04/02/2023 4:14 PM MANAGER BASKETBALL 04/02/2023 6:12 PM MANAGER BASKETBALL Milli Faria M.D. LAB BLOOD ADD-ON Performing Organization Address City/[facility] [address]/ZIP Co de Phone Number [facility] [address] [place] [address] [facility] [address] [place] [address] [place] [address] * (ABNORMAL) SPSMA Result (04/02/2023 4:14 PM MANAGER BASKETBALL) Pathologist [facility] Neutrophilic Segs and Bands 49(L) 50 - 75 % 04/02/2023 8:32 PM MANAGER BASKETBALL [facility] Lymphocytes 36 18 - 42 % 04/02/2023 8:32 PM MANAGER BASKETBALL [facility] Monocytes 14(H) 2 - 11 % 04/02/2023 8:32 PM MANAGER BASKETBALL [facility] Basophils 1 0 - 2 % 04/02/2023 8:32 PM MANAGER BASKETBALL [facility] Interpretation See Comment 8:32 PM MANAGER BASKETBALL [facility] Comment:No schistocytes are seen. No platelet clumping. Reviewed by: Krish 04/02/2023 8:32 PM MANAGER BASKETBALL [facility] Blood (Blood, Venous) 04/02/2023 4:14 PM MANAGER BASKETBALL 04/02/2023 4:39 PM MANAGER BASKETBALL Milli Faria M.D. LAB BLOOD ADD-ON [facility] [address] [place] [address], [facility] [address] [place] [address] * HCV Ab Scrn w/Reflex to HCV PCR, Serum (04/02/2023 4:14 PM MANAGER BASKETBALL) Pathologist [facility] HCV Ab Screen, S Negative Negative 04/02/2023 10:19 PM MANAGER BASKETBALL [facility] Comment:[id number]-zy-asrycm rat io is <1.00. Blood (Blood, Venous) 04/02/2023 4:14 PM MANAGER BASKETBALL 04/02/2023 6:06 PM MANAGER BASKETBALL Milli Faria M.D. LAB MICROBIOLOGY - BLOOD ORDERABLES [facility] [address] [place] [address] [facility] [address] [place] [address] * 25-Hydroxyvitamin D2 and D3 (04/02/2023 4:14 PM MANAGER BASKETBALL) 25-Hydroxy D2 <4.0 ng/mL 04/04/2023 8:46 AM MANAGER BASKETBALL [facility] 25-Hydroxy D3 69 ng/mL 04/04/2023 8:46 AM MANAGER BASKETBALL [facility] 25-Hydroxy D Total 69 ng/mL 2023 8:46 AM MANAGER BASKETBALL [facility] Comment: Interpretation: 51-80 ng/mL (increased risk of hypercalciuria) ----REFERENCE VALUE---- 25-HYDROXY D TOTAL (D2+D3) Optimum levels in the healthy population are 20-50, patients with bone disease may benefit from higher levels within this range. ----ADDITIONAL INFORMATION---- This test was developed and its performance characteristics determined by [facility] in a manner consistent with CLIA requirements. This test has not been cleared or approved by the U.S. Food and Drug Administration. Blood (Blood, Venous) 04/02/2023 4:14 PM MANAGER BASKETBALL 04/03/2023 7:21 AM MANAGER BASKETBALL Milli Faria M.D. LAB BLOOD ADD-ON Performing Organization Address City/[facility]/ZIP Co de Phone Number [facility] [address] [place] [address] [facility] [address] [place] [address] [place] [address] * Reticulocytes (04/02/2023 4:14 PM MANAGER BASKETBALL) Reticulocytes, B 2.08 0.60 - 2.71 % 04/02/2023 4:46 PM MANAGER BASKETBALL DTL Absolute Reticulocyte 69.3 30.4 - 110.9 x10(9)/L 04/02/2023 4:46 PM MANAGER BASKETBALL DTL Blood (Blood, Venous) 04/02/2023 4:14 PM MANAGER BASKETBALL 04/02/2023 4:39 PM MANAGER BASKETBALL Milli Faria M.D. LAB BLOOD ADD-ON Performing Organization Address City/[facility] [address]/ZIP Co de Phone Number [facility] [address] [place] [address], [facility] DTL [facility] [address] [place] [address] * (ABNORMAL) Electrophoresis, Protein (04/02/2023 4:14 PM MANAGER BASKETBALL) Total Protein, S 6.4 6.3 - 7.9 g/dL 04/02/2023 6:31 PM MANAGER BASKETBALL [facility] Albumin 3.3(L) 3.4 - 4.7 g/dL 04/02/2023 9:19 PM MANAGER BASKETBALL [facility] Alpha-1 Globulin 0.3 0.1 - 0.3 g/dL 04/02/2023 9:19 PM MANAGER BASKETBALL [facility] Alpha-2 Globulin 0.7 0.6 - 1.0 g/dL 04/02/2023 9:19 PM MANAGER BASKETBALL [facility] Beta-Globulin 0.8 0.7 - 1.2 g/dL 04/02/2023 9:19 PM MANAGER BASKETBALL [facility] Gamma-Globulin 1.3 0.6 - 1.6 g/dL 04/02/2023 9:19 PM MANAGER BASKETBALL [facility] A/G Ratio 1.06 04/02/2023 9:19 PM MANAGER BASKETBALL [facility] Impression Small abnormality in gamma fraction. 04/02/2023 9:19 PM MANAGER BASKETBALL [facility] Blood (Blood, Venous) 04/02/2023 4:14 PM MANAGER BASKETBALL 04/02/2023 6:12 PM MANAGER BASKETBALL Milli Faria M.D. LAB BLOOD ADD-ON [facility] [address] [place] [address] [facility] [address] [place] [address] [facility] [address] [place] [address] [place] [address] * (ABNORMAL) Parathyroid Hormone (PTH) (04/02/2023 4:14 PM MANAGER BASKETBALL) Pathologist [facility] Parathyroid Hormone (PTH), S <6.0(L) 15 - 65 pg/mL 04/02/2023 5:32 PM MANAGER BASKETBALL DTL Blood (Blood, Venous) 04/02/2023 4:14 PM MANAGER BASKETBALL 04/02/2023 4:57 PM MANAGER BASKETBALL Milli Faria M.D. LAB BLOOD ADD-ON [facility] [address] [place] [address], [facility] DTL [facility] [address] [place] [address] * (ABNORMAL) Troponin T, 2h/6h, 5th Gen (04/02/2023 12:19 PM MANAGER BASKETBALL) Pathologist [facility] Troponin T, 2 hr, 5th gen 16(H) <=10 ng/L 04/02/2023 12:41 PM MANAGER BASKETBALL [facility] 2H Delta 0 ng/L 04/02/2023 12:41 PM MANAGER BASKETBALL [facility] 2H Delta Interp Not Changing 04/02/2023 12:41 PM MANAGER BASKETBALL [facility] Troponin T, 6 hr, 5th gen CANCELED ng/L 04/02/2023 12:41 PM MANAGER BASKETBALL [facility] Comment:Result canceled by t he ancillary. 6H Delta CANCELED ng/L 04/02/2023 12:41 PM MANAGER BASKETBALL [facility] Comment:Result canceled by t he ancillary. 6H Delta % CANCELED % 04/02/2023 12:41 PM MANAGER BASKETBALL [facility] Comment:Result canceled by t he ancillary. Blood (Blood, Venous) 04/02/2023 12:19 PM MANAGER BASKETBALL 04/02/2023 12:25 PM MANAGER BASKETBALL Narrative [facility] - 04/02/2023 12:41 PM MANAGER BASKETBALL Specimen Information: Specimen ID: [id number] Specimen Type: Blood Specimen Collection Start Date: 04/02/2023 12:19 PM Specimen Received Date: 04/02/2023 12:25 PM Specimen ID: [id number] Specimen Type: Blood Sean Jansen M.D. LAB BLOOD TROPONIN [facility] [address] [place] [address], [facility] STMA [facility] [address] [place] [address] * (ABNORMAL) Dipstick, POCT, Urine (04/02/2023 11:14 AM MANAGER BASKETBALL) Glucose, POCT, U Negative Negative mg/dL 04/02/2023 11:15 AM MANAGER BASKETBALL [facility] Ketone, POCT, U Trace(A) Negative mg/dL 04/02/2023 11:15 AM MANAGER BASKETBALL [facility] Specific [place], POCT, U 1.015 1.005 - 1.030 04/02/2023 11:15 AM MANAGER BASKETBALL [facility] Blood, POCT, U Trace(A) Negative 04/02/2023 11:15 AM MANAGER BASKETBALL [facility] pH, POCT, Urine 7.0 5.0 - 8.0 04/02/2023 11:15 AM MANAGER BASKETBALL [facility] Protein, POCT, U Negative Negative mg/dL 04/02/2023 11:15 AM MANAGER BASKETBALL [facility] Nitrites, POCT, U Negative Negative 04/02/2023 11:15 AM MANAGER BASKETBALL [facility] Leukocytes, POCT, U Negative Negative 04/02/2023 11:15 AM MANAGER BASKETBALL PC[facility] Urine 04/02/2023 11:1 4 AM MANAGER BASKETBALL 04/02/2023 11:15 AM MANAGER BASKETBALL Unknown Provider LAB POCT ORDERABLES - DEVICE POC RST [facility] OUTPATIENT LABS [address] [place] [address], [facility] PCED [facility] POC [address] [place] [address] * Influenza A, B, RSV, PCR, Rapid (04/02/2023 10:56 AM MANAGER BASKETBALL) Influenza A, PCR, Rapid, V Negative Negative 04/02/2023 11:24 AM MANAGER BASKETBALL STMA Influenza B, PCR, Rapid, V Negative Negative 04/02/2023 11:24 AM MANAGER BASKETBALL STMA Resp Synctial Virus, PCR, Rapid Negative Negative 04/02/2023 11:24 AM MANAGER BASKETBALL STMA Specimen Source Swab, Nasopharynx 04/02/2023 11:24 AM MANAGER BASKETBALL STMA Swab (Nasopharynx) 04/02/2023 10:56 AM MANAGER BASKETBALL 04/02/2023 11:00 AM MANAGER BASKETBALL Sean Jansen M.D. LAB MICROBIOLOGY - G ENERAL ORDERABLES Performing Organization Address City/[facility] [address]/ZIP Co de Phone Number [facility] [address] [facility] 200 [place] [address] * Bacterial Culture, Aerobic + Susceptibility, Urine (04/02/2023 10:54 AM MANAGER BASKETBALL) Urine Culture No growth after 1 day of incubation. 04/03/2023 8:28 AM MANAGER BASKETBALL DTL Urine (Urine, Straight Catheter) 04/02/2023 10:54 AM MANAGER BASKETBALL 04/02/2023 1:27 PM MANAGER BASKETBALL Comment:Specimen Source Site : Urine Sean Jansen M.D. LAB MICROBIOLOGY - G ENERAL ORDERABLES Performing Organization Address [facility] [address]/[facility] Co de Phone Number [facility] [address] [place] [address] * Bacteria / Renae Culture, Blood #2 (04/02/2023 10:52 AM MANAGER BASKETBALL) Only the most recent of2 resultswithin the time period is included. Bacteria/Padmini da Culture, Blood No growth after 5 days of incubation. 04/07/2023 12:02 PM MANAGER BASKETBALL DTL Blood (Blood, Peripheral Draw) 04/02/2023 10:52 AM MANAGER BASKETBALL 04/02/2023 11:03 AM MANAGER BASKETBALL Comment:Specimen Source Site : Blood Narrative [facility] - 04/07/2023 12:02 PM MANAGER BASKETBALL Received Bactec Peds bottle Sean Jansen M.D. LAB MICROBIOLOGY - G ENERAL ORDERABLES Performing Organization Address City/[facility] [address]/ZIP Co de Phone Number [facility] 200 [place], [place] [id number] [place] [address] * Lactate for Sepsis with Reflex (04/02/2023 10:45 AM MANAGER BASKETBALL) Pathologist [facility] Lactate, P 1.0 0.5 - 2.2 mmol/L 04/02/2023 11:29 AM MANAGER BASKETBALL [facility] Blood (Blood, Venous) 04/02/2023 10:45 AM MANAGER BASKETBALL 04/02/2023 10:57 AM MANAGER BASKETBALL Sean Jansen M.D. LAB BLOOD NON ADD-ON [facility] [address] 200 [place] [address] * (ABNORMAL) Troponin T, Baseline, 5th gen (04/02/2023 10:10 AM MANAGER BASKETBALL) [facility] Troponin T, Baseline, 5th gen 16(H) <=10 ng/L 04/02/2023 10:36 AM MANAGER BASKETBALL [facility] Blood (Blood, Venous) 04/02/2023 10:10 AM MANAGER BASKETBALL 04/02/2023 10:18 AM MANAGER BASKETBALL Sean Jansen M.D. LAB BLOOD TROPONIN Performing Organization Address [facility] [address]/ZIP Co de Phone Number [facility] [address] 200 [place] [address] * (ABNORMAL) S-TSH (Thyroid-Stimulating Hormone - Sensitive) (04/02/2023 10:10 AM MANAGER BASKETBALL) [facility] TSH, Sensitive 4.7(H) 0.3 - 4.2 mIU/L 04/02/2023 11:09 AM MANAGER BASKETBALL DTL Blood (Blood, Venous) 04/02/2023 10:10 AM MANAGER BASKETBALL 04/02/2023 10:33 AM MANAGER BASKETBALL Sean Jansen M.D. LAB BLOOD ADD-ON [facility] [address] DTL [facility] [address] [place] [address] from Last 3 Months Additional Health Concerns Infection Onset Date Last Indicated Protective Environment 04/12/2023 Advance Directives For more information, please contact: [phone] * DNR (Latest Code Status on File) Date Activated Date Inactivated Comments 04/02/2023 4:50 PM 04/23/2023 2:38 PM * Full Code Date Activated Date Inactivated Comments 04/02/2023 3:47 PM 04/02/2023 4:50 PM Question Answer Comments Full Code: Not Discussed Due to: Patient [place] not have the [place] Care Teams Bass String Winder Relationship Specialty Start Date End Date Elsewhere, Pcp PCP - General Internal Medicine 05/10/21
--- OUTSIDE RECORDS SUMMARY | 2023-06-13 07:27 | XMS_ITS | Encounter Summary ---
Author Name Unknown Organization [facility] Address [address] [place] [address] Care Team Providers Care Refuse And Recycling Worker Name Role Phone Elsewhere, Pcp Primary Care Provider Unavailabl e Reason for Visit * Episode Based Medications (Routine) - Closed Specialty Diagnoses / Procedures Referred By Contbi t Referred To Contact Diagnoses Marginal Zone Lymphoma Splenic (HCC) Satnam Lema M.B.B.S. 200 [place] [address] [address] Hem May [address] [place] [address] Referral ID Status Reason Start Date Expiration Date Visits Re quested Visits Authorized [id number] Closed 04/12/2023 04/11/2025 99 99 Encounter Details Date Type Department Care Team (Latest Contact Info) Description 04/27/2023 10:30 AM MISDRAW HAND Infusion Department of Infusion Therapy in [place], [place] [address] [place] [phone] Samir Laureano M.D. [address] [place] [phone] Lymphoplasmacytic Lymphoma (HCC) (Primary Dx) Discharge Disposition: Home or Self Care Social History Tobacco Use Types Packs/Day Years Used Date Smoking Tobacco: Light Smoker Cigarettes 0.3 14 Started: 962; Last attempted to quit: 09/05/1975 Smokeless Tobacco: Never Comments:Havent smoked since 1975 Alcohol Use Standard Drinks/Week Comments Yes 1 (1 standard drink = 0.6 oz pure alcohol) approximately 1-2 servings of alcohol per 1-2 weeks. [facility] Utilities Answer Date Recorded In the past 12 months has th e [employer] gas, oil, or water company threatened to [...] often do you attend chur ch or christianity services? More than 4 times per year 12/07/2021 Do you belong to any clubs o r organizations such as buddhism groups, unions, fraternal [...] Answer Date Recorded PHQ-2 Score 0 06/12/2021 [facility] - Occupational [...] Sign Reading Time Taken Comments Blood Pressure 140/60 04/27/2023 1:30 PM MISDRAW HAND Pulse 69 04/27/2023 1:30 PM MISDRAW HAND Temperature 36.9 ??C (98.4 ??F) 04/27/2023 10:[address] Respiratory Rate 16 04/27/2023 1:30 PM MISDRAW HAND Oxygen Saturation - - Inhaled Oxygen Concentration - - Weight 51.8 kg (114 lb 3.2 oz) 04/27/2023 10:57 AM MISDRAW HAND Height - - Body Mass Index 23.07 04/12/2023 4:50 PM MISDRAW HAND documented in this encounter Plan of Treatment Upcoming Encounters Date Type Department Care Team (Late st Contact Info) Description 07/09/2023 11:15 AM CDT Clinical Communication Virtual Review in [address] [address] 07/11/2023 1:00 PM CDT Office Visit Department of Neurology in [address] [phone] Danita Prabhakar M.D., Ph.D. [address] [place] [phone] documented as of this encounter Visit Diagnoses Diagnosis Lymphoplasmacytic Lymphoma (HCC)- Primary documented in this encounter Administered Medications Inactive Administered Medications - up to 3 most recent administrations Medication Order MAR Action Action Date Dose Rate Site acetaminophen tablet 650 mg (TYLENOL) 650 mg, oral, Once, On Sun04/27/23 at 1115, For 1 dose, Administer 30 minutes prior to riTUXimab. Given 04/27/2023 11:05 AM MISDRAW HAND 650 mg diphenhydrAMINE injection 25 mg (BENADRYL) 25 mg, intravenous, Once, On Sun04/27/23 at 1115, For 1 dose, Administer 30 minutes prior to riTUXimab. Given 04/27/2023 11:21 AM MISDRAW HAND 25 mg riTUXimab-abbs 600 mg in NaCl 0.9% IVPB (TRUXIMA) 600 mg (rounded from 566.25 mg = 375 mg/m2 ? 1.51 m2 Treatment Plan BSA from Measured weight), intravenous, Once, On Sun04/27/23 at 1145, For 1 dose, 90-minute infusion: 20% of the dose administered in the first 30 minutes, remaining 80% administered over 60 minutes. Or proceed with initial rate of 100 mg/hr and increase by 100 mg/hr every 30 minutes to a maximum of 400 mg/hr., Restriction Criteria (Pharmacy will review and approve if criteria met): Meets rituximab algorithm criteria Rate/Dose Change 04/27/2023 12:09 PM MISDRAW HAND 480 mL/hr New Bag 04/27/2023 11:35 AM MISDRAW HAND 600 mg 120 mL/hr sodium chloride 0.9 % injection 3 mL 3 mL, intra-catheter, As needed, line care, Starting on Sun04/27/23 at 1122, Prior to and following infusion and between multiple consecutive infusions. Given 04/27/2023 11:23 AM MISDRAW HAND 3 mL Given 04/27/2023 11:21 AM MISDRAW HAND 3 mL documented in this encounter Additional Health Concerns Infection Onset Date Last Indicated Resolved Time Protective Environment 04/12/2023 04/12/2023 Assessment Noted Time PHQ-9 Depression Total Score: 5 06/13/19 22 6:15 PM CDT documented as of this encounter Care Teams Refuse And Recycling Worker Relationship Specialty Start Date End Date Elsewhere, Pcp PCP - General Internal Medicine 05/10/21 documented as of this encounter
--- OUTSIDE RECORDS SUMMARY | 2023-06-13 07:29 | XMS_ITS | Encounter Summary ---
Author Name Unknown Organization [facility] Address [address] [place] [address] Care Team Providers Care Fisher Weir Name Role Phone Elsewhere, Pcp Primary Care Provider Unavailabl e Encounter Details Date Type Department Care Team (Late st Contact Info) Description 04/19/2023 Orders Only Division of Hematology in [place], [place] [address] [place] [phone] Lambert Roy M.D. [address] [place] [phone] Social History Tobacco Use Types Packs/Day Years Used Date Smoking Tobacco: Light Smoker Cigarettes 0.3 14 Started: 962; Last attempted to quit: 09/05/1975 Smokeless Tobacco: Never Comments:Havent smoked since 1975 Alcohol Use Standard Drinks/Week Comments Yes 1 (1 standard drink = 0.6 oz pure alcohol) approximately 1-2 servings of alcohol per 1-2 weeks. [facility] Utilities Answer Date Recorded In the past 12 months has [facility] [employer], oil, or water [employer] threatened to shut off services in your [...] often do you attend chur ch or gnosticism services? More than 4 times per year 12/07/2021 Do you belong to any clubs o r organizations such as bahai groups, unions, fraternal [...] Answer Date Recorded PHQ-2 Score 0 06/12/2021 [facility] of Occupat ional Health - Occupational [...] your living situation today? [facility] live 04/02/2023 Education Answer [...] AM CDT Clinical Communication Virtual Review in [place], [place] [address] [place] [address] 07/11/2023 1:00 PM CDT Office Visit Department of Neurology in [place], [place] [address] [place] [phone] Syc-Danita Rhodes M.D., Ph.D. [address] [place] [phone] documented as of this encounter Visit Diagnoses Not on filedocumented in this encounter Additional Health Concerns Infection Onset Date Last Indicated Resolved Time Protective Environment 04/12/2023 04/12/2023 Assessment Noted Time PHQ-9 Depression Total Score: 5 06/13/19 22 6:15 PM CDT documented as of this encounter Care Teams Fisher Weir Relationship Specialty Start Date End Date Elsewhere, Pcp PCP - General Internal Medicine 05/10/21 documented as of this encounter
--- OUTSIDE RECORDS SUMMARY | 2023-06-13 07:29 | XMS_ITS | Encounter Summary ---
Author Name Unknown Organization [facility] Address [address] [place] [address] Care Team Providers Care Mohel Name Role Phone Elsewhere, Pcp Primary Care Provider Unavailabl e Reason for Visit * Reason Comments Weakness - Generalized * Episode Based Medications (Routine) - Closed Specialty Diagnoses / Procedures Referred By Contac t Referred To Contact Diagnoses Marginal Zone Lymphoma Splenic (HCC) Satnam Lema M.B.B.S. [address] [place] [phone] R[address] Hem Noy [address] [place] [phone] Referral ID Status Reason Start Date Expiration Date Visits Re quested Visits Authorized [id number] Closed 04/12/2023 04/11/2025 99 [phone] Encounter Details Date Type Department Care Team (Latest Contact Info) Description 04/02/2023 9:54 AM CLIENT REPRESENTATIVE - 04/23/2023 12:33 PM CLIENT REPRESENTATIVE Hospital Encounter [facility], Seventh Floor [address] [place] [phone] Sean Jansen M.D. [address] [place] [phone] Darrell Zabala M.D. [address] [place] [phone] Raymond Jaimes M.D. [address] [place] [phone] Ariel Sevilla M.D. [address] [place] [phone] José Allison M.B.B.S. [address] [place] [phone] Lambert Roy M.D. [address] [place] [phone] Hu Cardenas M.D. [address] [place] [address] [phone] Weakness General (Primary Dx); Hypokalemia; Hypercalcemia; Dysphagia [...] 1-2 servings of alcohol per 1-2 weeks. [facility] Utilities Answer Date Recorded In the past 12 months has [facility] [employer], [employer], or water [employer] threatened to shut off services in your [...] How often do you attend chur or spiritism services? More than 4 times per year 12/07/2021 Do you belong to any clubs o r organizations such as confucianist groups, unions, fraternal [...] Answer Date Recorded PHQ-2 Score 0 06/12/2021 [facility] - [...] your living situation today? I have a [facility] place to live 04/02/2023 Education Answer [...] Sign Reading Time Taken Comments Blood Pressure 111/59 04/23/2023 11:45 AM CLIENT REPRESENTATIVE Pulse 71 04/23/2023 11:45 AM CLIENT REPRESENTATIVE Temperature 36.6 ??C (97.9 ??F) 04/23/2023 11:[address] Respiratory Rate 16 04/23/2023 11:45 AM CLIENT REPRESENTATIVE Oxygen Saturation 97% 04/23/2023 11:45 AM CLIENT REPRESENTATIVE Inhaled Oxygen Concentration - - Weight 47.7 kg (105 lb 2.6 oz) 04/21/2023 8:07 A M CLIENT REPRESENTATIVE Height 149.9 cm (4' 11) 04/12/2023 4:50 PM CLIENT REPRESENTATIVE Body Mass Index 21.24 04/12/2023 4:50 PM CLIENT REPRESENTATIVE documented in this encounter Discharge Summaries * Santiago Mejía M.D., M.S. - 04/23/2023 11:51 AM CST DISCHARGE SUMMARY BRIEF OVERVIEW Hospital: [facility] Discharge Provider: Hu Cardenas M.D. Primary Team: [facility] HEMATOLOGY 3 Primary Care Providers: Elsewhere, Pcp (General) No address on file Primary Care Provider Phone Number: None Primary Care Provider Fax Number: None Admission Date: 04/02/2023 Discharge Date: 04/23/2023 PRINCIPAL DIAGNOSIS Lymphoplasmacytic Lymphoma (HCC) SECONDARY DIAGNOSES Principal Problem: Lymphoplasmacytic Lymphoma (HCC) Active Problems: Parkinsonism Unspecified (HCC) Unspecified Dementia Unspecified Severity Without Behavioral Disturbance Psychotic disturbance MoodDisturbance And Anxiety (HCC) 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 Encephalopathy Metabolic Hypercalcemia Malnutrition Severe Protein-Calorie (HCC) Malignant Neoplasm Of Breast Female Left (HCC) Hypertension Essential Primary Gastroesophageal Reflux Disease Without Esophagitis Glaucoma Anxiety Disorder Unspecified Anemia In Neoplastic Disease Thrombocytopenia (HCC) Lentigo Elevated Creatinine Nausea And Vomiting Dysphagia Resolved Problems: Dehydration Hypokalemia Hypophosphatemia DISCHARGE DISPOSITION [facility] Facility [3] ACTIVE ISSUES REQUIRING FOLLOW UP For Patient: Please stop taking your hydrochlorothiazide, and calcium and vitamin-D supplementation. Please refer to your after visit summary regarding all your medications and appointments. For PCP: Her pyridoxine and thiamine levels were low, and she was discharged on oral supplementation. Pleaseensure pyridoxine and thiamine are adequately replaced. Because of hypercalcemia, vitamin-D, calcium supplementation, and hydrochlorothiazide were discontinued. Please ensure periodic monitoring of calcium, and initiate calcium/vitamin-D supplementation as necessary. Recommend continuing to hold off HCTZ, and introducing another blood pressure med if nee ded. Please note that she does have a GFR under 30 when measured by cystatin C, with a discordant with her creatinine measurements. Please renally dose medications as necessary. OUTPATIENT FOLLOW UP Scheduled Appointments 04/27/2023 8:30 AM LAB BLOOD ROCH Laboratory Medicine 04/27/2023 10:30 AM INF RN NURSE 01 ROEI Infusion Therapy 05/04/2023 8:30 AM LAB BLOOD ROCH LO Laboratory Medicine 05/04/2023 10:30 AM INF RN NURSE 01 ROEI Infusion Therapy 05/29/2023 10:50 AM LAB BLOOD NOY 05 W Laboratory Medicine 05/29/2023 1:30 PM Minerva Albarran M.D. Hematology For appointment details refer to your Patient Appointment Guide. TEST RESULTS PENDING AT DISCHARGE Pending Labs Order Current Status VRE PCR In process DETAILS OF HOSPITAL STAY REASON FOR ADMISSION Hypercalcemia Hypokalemia Weakness General Lymphoma (HCC) HOSPITAL COURSE Darcy Colon is an 82-year-old female with medical comorbidities including mild cognitive impairment, parkinsonism, HTN, breast cancer in 2017 s/p lumpectomy and radiation, nonmelanoma skin cancer,osteopenia, B12 deficiency on supplementation, and GERD who was admitted on 04/02 for generalized weakness, confusion, and poor oral intake. 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 Prior to admission: The patient had COVID at the beginning of February followed by diverticulitis and urinary tract infection both requiring hospitalization while in [place]. Workup during these hospitalizations revealedsplenomegaly. With each hospitalization, the patient continued to decline with decreased appetite, generalized weakness, and progressive encephalopathy. She was previously independent and able to driv e, which progressed to difficulty communicating and understanding conversations, inability to mobilize independently, and sleeping all day. Given her continued decline, her and her flew back to [place] and presented to the [facility] ED on 04/02 for these concerns. ED Course: Vitals were stable on arrival. Labs were notable for mild pancytopenia with hemoglobin 11.6, platelets 69, WBC 4.4, K 2.7, calcium 13.7, creatinine 1.14 (baseline 0.9). Examination was notable for encephalopathy and macroglossia. She was provided with 1 L of fluid in the emergency department and admitted to the Medicine 2 service. Med 2 Course: Hematology: Abdominal ultrasound on 04/[address] head revealed age- indeterminate left basal ganglia lacunar infarct with otherwise no acute intracranial findings. MRI brain 04/05 was negative for acute intracranial findings and had no evidence of lymphoma. PET-CT 04/06 revealed moderately FDG konstantin d splenomegaly and diffuse bone marrow activities suspicious for a lymphoproliferative disorder along with moderate left pelvocaliectasis with retention of FDG activity in the collecting system to the level of the left UPJ. 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 She was transferred to [facility] 1 on 04/12 and received her 1st dose of rituximab on 04/13. Hypercalcemia: The patient was noted to be on calcium, vitamin-D supplementation, and hydrochlorothiazide at home.The combination of these medications along with dehydration was thought to be the likely cause of her hypercalcemia. These medications were held and she was given a total of 15 L IV fluids and oral re hydration, Lasix 20 mg IV x 2, Zometa, and calcitonin x 2 with improvement in hypercalcemia. Workupincluding hypovitaminosis D, paraneoplastic etiology, and hyperparathyroidism were negative. Encephalopathy: The patient was noted to demonstrate a subacute and progressive encephalopathy over the past 1-2 months exacerbated by COVID-19 infection in February 2023. This was in the background of mild cognitiveimpairment and parkinsonism type features. Neurology was consulted. 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 Neurology felt her altered mental status was possibly secondary to an underlying neurodegenerative disorder compounded by nutritional deficiencies. Nutrition: She was noted to have severe malnutrition upon admission. She was seen by nutrition and an NG-tube was placed on 04/06. She was initiated on tube feeds, which was complicated by refeeding syndrome. Vitamin B6 level was low and was supplemented. She was initially given thiamine at high IV doses given her encephalopathy. PT/OT and speech were consulted given her significant debility as well as concern for dysphagia contributing to poor oral intake. Her oropharyngeal swallow was within functional limits but she did have overall general debility with swallowing. NG-tube was kept in place for supplemental feedings with a soft and bite size diet. She was continued on PO thiamine and pyridoxine. She transferred to the hematology 3 service on 04/14 following 1st dose of rituximab infusion. Heme 3: The patient had evidence of mild volume overload on exam with crackles, pulmonary vascular congestion, and mild lower extremity edema. Continuous maintenance fluids were discontinued and she was provided with gentle diuresis. She was encouraged to prioritize PO intake. She worked with PT, OT, and speech therapy. She was liberalized to a regular diet on 04/16. Tube feeds were weaned and NG was removed with adequate PO intake. She received her second dose of rituximab on 04/20 which she tolerated well. Her calcium remained stable without further directed treatments. Disposition: She was discharged to home in stable condition on 04/23/2023. Medications: Started: Pyridoxine Thiamine Changed: None Stopped: Aspirin Hypercalcemia related meds: Vitamin-D and calcium supplementation, hydrochlorothiazide B12 - she was supratherapeutic on 04/04/2023 CONSULTS ORDERED DURING THIS ADMISSION IP CONSULT TO DIETITIAN IP CONSULT TO DIETITIAN IP CONSULT TO CARE MANAGEMENT IP CONSULT TO NEUROLOGY IP CONSULT TO HEMATOLOGY IP CONSULT TO DIETITIAN IP CONSULT TO DIETITIAN IP CONSULT TO CARE MANAGEMENT IP CONSULT TO DIETITIAN IP CONSULT TO CARE MANAGEMENT IP CONSULT TO PATIENT REGISTRATION REP WOUND CARE IP CONSULT TO CARE MANAGEMENT CONDITION AT DISCHARGE stable Discharge instructions were provided to the patient and caregiver(s). Total time spent in discharge services today: 45 minutes. Santiago Mejía MD MS PGY-2 Internal Medicine NT REPRESENTATIVE * Vitor Casas P.A.-C., M.S. - 04/14/2023 7:09 AM CST HEMATOLOGY 1 SERVICE (service pager [phone]) SUBJECTIVE EVENTS OVER THE LAST 24 HOURS No acute events overnight. Per family, patient more interactive throughout the day with less nausea. She was more awake during rounds this morning. We discussed with patient and family transferring back to a medicine service today as she is not actively receiving chemotherapy. No concerns from patient or family this morning. Denies fever, chills, or new pain or discomfort. REVIEW OF SYSTEMS A 10 point system review was performed and negative other than as stated in the HPI. OBJECTIVE VITAL SIGNS Temperature: [36 ??C-37.3 ??C] 36 ??C Resp Rate: [12-20] 14 Blood Pressure: (107-137)/(49-77) 125/54 SpO2: [92 %-100 %] 100 % Pulse Rate: [65-89] 73 PHYSICAL EXAM General: Alert, lying in bed, no acute distress. Skin: Intact, no visible rashes or bleeding. Eyes: Sclera white, non-injected. Pupils equal, no strabismus or ptosis. Heart: Regular rate and rhythm. No appreciable edema. Perfusing extremities well. Lungs: Respiration rate even, unlabored. All lobes clear to auscultation. Abdomen: Soft, non tender, non distended with active bowel sounds. Neuro: No obvious focal deficits present. Psych: Appropriate mood and affect. No acute delirium or agitation. ASSESSMENT / PLAN Ms. Darcy Colon is a 82 y.o. 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 She presented to the ED on 04/02/23 for progressive generalized weakness, confusion and poor oral intake. Upon evaluation she was found to have mild pancytopenia, hypercalcemia and hypokalemia. She was admitted to the Medicine 2 service at [facility] for further evaluation. She had extensive neurology work up for encephalopathy that has overall been unrevealing. US on 04/03 revealed splenomegaly. Brain MRI on 04/05 was negative for acuteintracranial findings and had no evidence of lymphoma. Bone marrow biopsy on 04/06 revealed [id number] lymphoproliferative disorder compromising 70% of marrow cellularity, given morphologic features and IgM kappa paraprotein pathology favors lymphoplasmacytic lymphoma. PET scan on 04/06 revealed moderately FDG avid splenomegaly and diffuse bone marrow uptake along with moderate left pelvocaliectasis with retention of FDG activity in the collecting system to the level of the left UPJ. She transferred to Hem 1 service on 04/12 to initiate treatment with single agent rituximab. 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 Patient does not require premedications prior to RBCs and platelets. TRANSFER TO HEM 3 SERVICE 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 # Thrombocytopenia (HCC) - Cycle 1 weekly rituximab (D1,8,15,22); day 2 - Tolerated infusion without reaction - Chromosomes and NGS pending - Beta-2 microglobulin: 12.10 - Continue allopurinol x 10 days (04/12-04/21) - Monitor TLS labs q8h - Follow up will need to be arranged # Unspecified Dementia Unspecified Severity Without Behavioral Disturbance 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) # Parkinsonism Unspecified (HCC) # Encephalopathy Metabolic - KB previously evaluated: - AMS possibly 2/2 underlying neurodegenerative disorder which has been compounded by nutritional deficiencies - Requires OP follow up after discharge - See note 04/11 # Hypercalcemia # Elevated Creatinine - Received prior LR, Ca trended up, now trending down s/p lasix, Zometa, and calcitonin x2 - Cr remains elevated with stable ltyes - Continue NS @100 mL/hr - Monitor ionized calcium daily; TLS labs as noted above # Malnutrition Severe Protein-Calorie (HCC) # 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 # Dysphagia - Meets ASPEN Criteria of malnutrition; agree with RD's assessment and recommendations - Currently has NG and requiring tube feeds; abd XR re-verified positioning today - Completed course of IV thiamine; continue supplement via gastric tube - Continue MVT - PT/OT/Speech consulted # Hypertension Essential Primary - Hold home HCTZ # Gastroesophageal Reflux Disease Without Esophagitis - Continue pantoprazole IV due to dysphagia # Anxiety Disorder Unspecified - Continue bupropion and escitalopram # Glaucoma - Continue brimonidine, dorzolamide-timolol, and ketorolac ophthalmic solution # History Of Malignant Neoplasm Of Breast Female Left (HCC) - L-sided invasive ductal carcinoma in 2017 (ER+, W[place]+, HER2-) - Tamoxifen previously DC'd due to SEs # Elevated Alkaline Phosphatase - ALK stably elevated - Monitor LFTs intermittently COVID-19 Inpatient Hematology Screening - COVID-19 testing should occur 24-96 hours prior to chemotherapy (as outpatient for planned admissions and immediately for unplanned admissions) - Pre chemotherapy COVID-19 test was Undetected- Date 04/11/2022 Activity: PAMP Level 2 (chairbound, staff moves patient to chair TID) VTE prophylaxis: heparin Blood transfusions: Informed consent for blood product transfusions will need to be completed upon the first required blood component administration during this admission. Surrogate Decision Maker: Spouse, Philippe Colon [phone] Disposition: Will require SNF for nursing needs, CM following. NT REPRESENTATIVE * Syed Cruz M.B.B.S. - 04/12/2023 11:06 AM CST TRANSFER NOTE SUBJECTIVE Ms. Colon is an 82-year-old woman who presented to the ED on 04/02/2023 for progressive generalized weakness, confusion, and poor oral intake. Medical comorbidities include history of mild cognitiveimpairment, breast cancer in remission, non-melanoma skin cancer, anxiety, depression, osteopenia, GERD, recent COVID infection in February 2023, IgM kappa gammopathy, B12 deficiency on supplementation. Upon presenting to the ED, vitals were stable. Labs were notable for mild pancytopenia, hypercalcemia of 13.7, and hypokalemia 2.7. Examination was notable for an encephalopathy and macroglossia. Shewas transferred to the medicine 2 service for further care. Hematology Given pancytopenia and recent development of splenomegaly noted on chart review, Hematology was consulted and a bone marrow biopsy and PET scan were undertaken. PET-CT identified FDG avid splenomegaly and bone marrow suggestive of a lymphoproliferative process. Bone marrow biopsy results confirmed a low grade B cell lymphoplasmacytic lymphoma suspicious for splenic marginal zone lymphoma given her splenomegaly. She has stable mild pancytopenia, FDG avid splenomegaly and bone marrow, and an IgM kappa gammopathy. Hematology accepted the patient for transferto Orthodoxy for initiation of chemotherapy on 04/12. Hypercalcemia Mrs. Colon was receiving calcium and vitamin-D supplementation as an outpatient. Initially, it wasfelt that these combined with low p.o. intake and dehydration were likely the cause of the hypercalcemia. The supplements were discontinued and IV and oral rehydration was pursued which improved the h ypercalcemia. Workup for hypercalcemia did not demonstrate hypervitaminosis D, a paraneoplastic etiology (PTHrP negative), nor hyperparathyroidism. Certainly there is a concern that is the hypercalcemia may also be driven by her new diagnosis of underlying lymphoma but 1,25 hydroxyvitamin D levels were normal. Nutrition Due to recent poor oral intake and concern for malnutrition, an NG tube was placed on 04/06 and tube feeding advanced. Patient had features of refeeding syndrome (hypokalemia, hypomagnesemia, hypophosphatemia) which we repleted and monitored closely. Vitamin B6 was low and we supplemented this. Thiamine was repleted at high IV doses doses given her encephalopathy (Wernicke's protocol doses). Nutrition and PTO dysphagia were involved. Unfortunately, she continues to demonstrate poor oral intake and has required ongoing tube feeds to meet her nutritional requirements. Neurology From a neurological point of view, this lady exhibited a subacute and progressive encephalopathy over the last 1-2 months exacerbated by COVID infection in February. This is on a background of mild cognitive impairment, parkinsonism, and gait instability for which he was evaluated in March 2022 by our Neurology colleagues. Neurology was consulted. On examination, she had bradyphrenia and cognitive impairment manifesting with deficits in attention, calculation, abstraction, recent and remote memory and some disorientation. She also had subtle quadriparesis in upper motor neuron pattern with a questionable length-dependent proprioceptive loss in the upper and lower limbs raising concern fora myeloneuropathy but MRIs of the head C-spine and T-spine were normal, as was an EMG/NCS. There was some slight improvement in her mentation throughout admission after nutritional supplementation. In short, but is felt that the clinical picture is most consistent with a metabolic/nutritional encephalopathy due to poor oral intake. Lymphoproliferative conditions including Deja Fan syndrome andamyloidosis were considered, but neurology feels that this lymphoplasmacytic lymphoma is unlikely to have direct PATIENT REGISTRATION REP involvement. Consideration could be given to a future LP if this would change hematological/oncological management but it is not currently strongly recommended. A PATIENT REGISTRATION REP demyelination and autoimmune myelopathy panel is pending. OBJECTIVE I have reviewed the current vital sign data as applicable. PHYSICAL EXAM General: Alert, interactive, not acutely ill. Skin: No rashes or lesions. Eyes: Pupils equal and round. Sclera anicteric. ENT: Hearing grossly intact. Dentition intact. Macroglossia. Lungs: Clear to auscultation. No wheezes or crackles. Reduced bibasilar air entry and reduced whispered pectoriloquy suggestive of small effusions. Heart: Cap refill time under 2 seconds and moist mucous membranes. Regular rate and rhythm. No murmurs appreciated. No lower extremity edema. Abdomen: Soft, bowel sounds present. Splenomegaly. Summary of neurologic exam 04/07: Cognitive impairment manifesting with bradyphrenia, disorientation, and deficits in attention, calculation, abstraction, recent and remote memory. Subtle quadriparesis in upper motor neuron pattern with equivocal length-dependent proprioceptive loss in the upper andlower limbs. DIAGNOSTICS I have reviewed relevant laboratory, imaging, and other diagnostics as applicable. ASSESSMENT / PLAN Ms. Colon is a very pleasant 82 year old female with a history of mild cognitive impairment and parkinsonism, breast cancer in remission, non-melanoma skin cancer, anxiety, depression, osteopenia, GERD, recent COVID infection in February 2023, IgM kappa gammopathy, and B12 deficiency on supplementation. She was admitted on the Medicine 2 service due to significant poor oral intake and severe malnutrition complicated by refeeding syndrome (now resolved) and a subacute metabolic/nutritional encephalopathy on a background of newly diagnosed lymphoplasmacytic lymphoma with suspicion for SMZL. # Lymphoplasmacytic lymphoma with suspicion for SMZL # Splenomegaly # Pancytopenia # Hypercalcemia # IgM kappa gammopathy # Metabolic/nutritional encephalopathy # History of mild cognitive impairment and parkinsonism # Poor oral intake and severe protein-calorie malnutrition # Refeeding syndrome, resolved Summary of Recommendations Hematology to guide Rituximab and other indicated chemotherapy Pending labs: PATIENT REGISTRATION REP demyelination and autoimmune myelopathy panel; vitamin E; chromosome bone marrow analysis; OncoHeme sequencing IV Thiamine 250mg due to end on 04/12, followed by daily thiamine 100mg orally Ongoing nutrition, PT, PTO dysphagia input; continue NG feeding, calorie count, advancement of oraldiet, vitamin and electrolyte supplementation. Future consideration for PEG if needed and within goals of care This patient was seen and discussed with Dr. Jaimes who was present for jorge evaluation and management. Please see the supervisory note for further details. Please contact the [facility] service pager [phone] with any questions. Electronically signed by: Ryley NoyolaSAdalid 04/11/23 4:58 PM CLIENT REPRESENTATIVE NT REPRESENTATIVE Associated attestation - Raymond Jaimes M.D. - 04/12/2023 12:51 PM CLIENT REPRESENTATIVE I saw and evaluated the patient, participating in the jorge portions of the service. I reviewed the resident/fellow???s note. I agree with the resident/fellow???s findings and plan. She will transfer to [facility] today for initiation of rituximab. She is debilitated and would benefitfrom rehabilitation based on her current functional status, but placement at a nursing facility would likely not be immediately feasible given plans for several weeks of chemotherapy. Hopefully, her f unctional status will improve with treatment. In addition, she is malnourished and her oral intake has be suboptimal for weeks. She is currently tolerating enteral feeds. If her appetite and oral intake do not improve with therapy, PEG placement for long-term enteral feeding will need to be considered, if consistent with the patient's goals of care. Raymond Jaimes M.D. documented in this encounter Discharge Instructions * Discharge Instructions* Ruth Craig V. - 04/04/2023 10:20 AM CLIENT REPRESENTATIVE You were discharged from the [facility] HEMATOLOGY 3 Service. Please identify this service name if you call with questions after hospitalization. NT REPRESENTATIVE documented in this encounter Medications at Time [...] 04/24/2023 05/24/2023 documented as of this encounter Progress Notes * Arleen Díaz - 04/23/2023 12:33 PM CST Occupational Therapy [facility] Inpatient Treatment SUBJECTIVE Patient's Name: Darcy Colon Referring/Attending Provider: Hu Cardenas M.D. Reason for Referral: Occupational Therapy Evaluation and Treatment History of Present Illness: Darcy Colon is a 82 y.o. female who was admitted to [facility] in [place] on 04/02/2023 for Hypercalcemia [E83.52] Hypokalemia [E87.6] Weakness General [R53.1] Lymphoma (HCC) [C85.90]. Precautions Other Precautions: Fall Risk, decreased functional use of right upper extremity dominant hand; generalized weakness; double vision, aspiration precautions Pain Assessment: Pain not reported during session. Subjective Comments: Agreeable to therapy session. Team Communication: The patient's status was discussed and coordination of care occurred with coil winder/Caregiver Present: Patient's , Gerhard, was present during today's session. OBJECTIVE Outcome Measures: [facility] Inpatient Short Form: Putting on and taking off regular lower body clothing?: A Little Putting on and taking off regular upper body clothing?: None Taking care of personal grooming such as brushing teeth?: None Bathing (including washing, rinsing, drying)?: A Little Toileting, which includes using toilet, bedpan, or urinal?: None Eating meals?: None Daily Activities Raw Score (max 24): 22 Daily Activities Standardized Score: 47.1 Interpretation: Based on scoring guidelines using the raw score value: Those going to home had an average score at or above 18 Those going to facility had an average score at or below 17 Clinicians answer the [facility] Inpatient Short Form based on observed patient activity and/or clinical judgement (ie. patient can be scored without physically performing each activity) Cognition: No observable concerns with cognition at this time Therapeutic Interventions: ACTIVITIES OF DAILY LIVING: GROOMING - Assist Level: Stand By Assist - Patient Location: Standing at sink - Activity: Brushing teeth - regular or soft brush - Therapist Delivery: facilitated Patient engaged in grooming tasks while standing at bathroom sink with front wheeled walker and gait belt and required standby assist for safety. Patient engaged in oral hygiene and was able to successfully complete ADL while therapist facilitated. FUNCTIONAL TRANSFERS: SIT<>STAND - Assist Level: Stand By Assist - Equipment: front wheeled walker and gait belt - Surface: Chair - Therapist Delivery: assessed Patient engaged in sit <> stand functional transfer and required standby assist while utilizing a front wheeled walker and gait belt from seated at bedside chair to standing at edge of bedside chair. Therapist assessed functional transfer for safety precautions. Patient was able to successfully complete sit <> stand without needing verbal cues for proper hand placement compared to past sessions. FUNCTIONAL MOBILITY: In-room mobility performed with supervision/stand by assistance and front wheeled walker and gait belt Patient engaged in room mobility while utilizing a front wheel walker and gait belt required standby assistance for safety. Patient engaged in ambulating to bathroom sink and ambulating back to bedside chair. Patient was able to stand for a total of 2-3 minutes during ADL. Education Provided: LB Dressing: - Patient instructed on dressing compensatory strategies and aids to assist with don/doff process. Emphasized don/doff strategies including figure four technique. Recommended adaptive equipment: None. Home Safety/Fall Prevention: - Educated patient/caregiver regarding home safety and fall prevention strategies to promote safetyand independence including use of recommended assistive device, wearing non-slip footwear, ensuringclear pathways, removing throw rugs, and good lighting throughout the home. Energy Conservation: - Patient was educated on energy conservation and how to apply those techniques to activities of daily living. Instructed in energy conservation using the 4 P's. These include: Plan, Prioritize, Position, Pace. -Prioritizing is determining which activities are required or desired in comparison to others for dealing with a series of tasks according to their relative importance. -Position is focused on the location of one's body located in an environment. Sit for activities asmuch as possible, avoid bending/overhead reaching, use good posture and slow/smooth movements, avoid fast or rushed movements. Slide objects instead of lifting, use wheeled carts to carry heavier loads, place commonly used items with an easy to reach. Patient was left in bedside chair at end of session with call light in reach, all needs met and questions answered. Assessment Discharge Therapy Needs - OT: Ongoing skilled occupational therapy Skilled therapy can include occupational therapy provided in home health, outpatient or post-acute facility. The location of these services is determined by patient's care team in partnership with patient/family. Barriers to Discharge Home: None Level of Care Needed - OT: Assistance with dressing, Assistance with toilet/shower transfers, Assistance with meal preparation, Assistance with medication set up/administration, Assistance with transportation, Assistance with housekeeping, Assistance with shopping Clinical Impression: Currently, patient present with impairments including decreased functional strength, diminished activity tolerance, and reduced range of motion that has limited engagement in ADLs and IADLs. Patient was seated at bedside chair upon therapist arrival accompanied by her , Gerhard. Patient was very delightful today during session and stated that she is planning to be discharged today or tomorrowto her home back in [place], [place] with her . Patient has made strong improvements towards her functional mobility as well as engagement in ADLs and IADLs throughout past sessions. Patient engaged in oral hygiene at bathroom sink and required standby assist while utilizing a front-wheeled walker and gait belt. Patient was able to successfully stand for 2-3 minutes to work on static standing ability as well as increase engagement in occupations. Patient was educated on home safety as wellas energy conservation techniques for discharge home. Caregiver education was also facilitated by therapist during session related to patient's assist level with IADLs. Patient stated that she is planning on having an additional family member move in to her home to assist with support. Patient was additionally educated on lower body dressing and patient was receptive to information as well as able to engage in figure 4 technique with donning and doffing socks while seated at bedside chair. At this time, patient has achieved all OT inpatient acute care goals and there are no concerns or questions regarding patient's discharge. Patient reports she is aware of precautions, has adequate support at home upon discharge, and does not need additional occupational therapy services. Patient is discharged from acute care occupational therapy at this time. Plan Functional Goals: OT Goal #1: Patient will demonstrate all functional transfers with stand by assist to progress towards baseline. OT Goal #1 Status: Achieved OT Goal #2: Patient will demonstrate total body dressing and toileting with minimal assistance of 1to progress towards baseline. OT Goal #2 Status: Progressing (Goal not formally assessed, however patient does not have any concerns at this time.) OT Goal #3: Patient will increase functional use of right upper extremity in self feeding+ groomingwith minimal assist to increase independence and self reliance in self cares. OT Goal #3 Status: Achieved Progress: All OT goals achieved Rehab potential: Ms. Colon has excellent potential to achieve established occupational therapy goals within the time frame outlined below. OT Frequency: Requires Inpatient OT Follow-Up: No Plan: Discontinue OT Treatment interventions may include: Treatment Interventions: Self-care/home management Billing: Time Spent with Patient Therapeutic Interventions Home Management Training (min): 16 min Time Tracking Total Timed Units (min): 16 min Total Treatment Time (min): 16 min Arleen Díaz OTS NT REPRESENTATIVE Associated attestation - Eden Rodgers Ed.D., O.T. - 04/23/2023 3:08 PM CLIENT REPRESENTATIVE This therapist has reviewed all documentation and supervised today???s session. The therapist agrees with the plan developed in collaboration with the patient. * Arlen Avery, StephenS.Melissa., M.S.W. - 04/23/2023 11:14 AM CST SUBJECTIVE Social Work followed up with the patient and her spouse this morning to discuss plans/options for rehab. I shared that the [facility] in [place] was not able to accept and [facility] in [facility] now also full. We reviewed the patient's progress with therapy, and both patient and spouse feel comfortable returning home and continuing with outpatient therapy. OBJECTIVE Ms. Darcy Colon is an 82-year-old female with medical comorbidities including mild cognitive impairment, parkinsonism, HTN, breast cancer in 2017 s/p lumpectomy and radiation, nonmelanoma skin cancer, osteopenia, B12 deficiency on supplementation, and GERD who was admitted on 04/02 for generalized weakness, confusion, and poor oral intake. 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 ASSESSMENT / PLAN ASSESSMENT The patient was alert, oriented and pleasant. The patient's spouse was present and supportive at bedside. The patient/spouse denied having any additional questions/concerns and feel comfortable returning home at the time of dismissal. Social Work will remain available to provide ongoing support/assistance as needed. PLAN Patient plans on dismissing home with the support of her family and outpatient therapy Social Work will continue to follow and assist as needed eDepthi Alanis, M.S.W. 04/23/23 NT REPRESENTATIVE * Brie Lao P.T., D.P.T. - 04/23/2023 10:26 AM CST Physical Therapy Inpatient Treatment Note SUBJECTIVE Patient's Name: Darcy Colon Referring/Attending: Hu Cardenas M.D. Medical Diagnosis: Hypercalcemia [E83.52] Hypokalemia [E87.6] Weakness General [R53.1] Lymphoma (HCC) [C85.90] Reason for Referral: PT Evaluate and Treat PT Evaluate and Treat - General Acute Onset Date: 04/02/23 Payor: MEDICARE / Plan: MEDICARE A AND B / Product Type: Medicare / History of Present Illness: Ms. Colon is hospitalized on [place] [id number] ([facility]) for evaluation and management of progressive weakness and confusion. Medical comorbidities include history of mild cognitive impairment, breast cancer in remission, non-melanoma skin cancer, anxiety, depression, osteopenia, and GERD. Please see electronic medical record for full past medical history. Patient/Caregiver Goals: practice stairs and discharge to home with assist from her Patient Comments: Patient is reclined in bed upon PT arrival, she denies pain and is willing to participate with therapy. Precautions Other Precautions: Fall Risk, decreased functional use of right upper extremity dominant hand; generalized weakness; double vision, aspiration precautions OBJECTIVE Vitals not formally assessed during session. No concerns during chart review and the patient had nosigns or symptoms consistent with vital changes during therapy session. Patient denies dizziness, lightheadedness, shortness of breath, chest pain, and diaphoresis with mobility this session. Treatment consisted of: The patient was instructed on and performed the following dynamic activities in order to improve functional strength, mobility, balance and coordination, and physical performance. Bed Mobility - Supine to Sit Level of Assistance: Modified Independent Device: Bed rail Comments: Patient completes with light use of bed rail for support but does not require physical assistance or cues. Sit to Stand Transfers # of Assistants: 1 Transfer Surface: Bed Transfer Equipment: Gait belt, Front wheeled walker Level of Assistance: Supervision/set-up Assessment/Delivery: Assessed, Instructed Comments: Verbal cues for hand placement, patient with good follow through. Able to complete with supervision for safety. Stand to Sit Transfers # of Assistants: 1 Transfer Surface: Chair Transfer Equipment: Gait belt, Front wheeled walker Level of Assistance: Supervision/set-up Assessment/Delivery: Assessed, Instructed Comments: Verbal cues for alignment to sitting surface and to reach back prior to sitting. Patient with good follow through of all cues and is able to complete with supervision. Gait Assessment/Training Distance (m): 65 m Surface: Even, Smooth/hard Device: Gait belt, Front-wheeled walker # of Assistants: 1 Level of Assistance: Contact guard assistance, Supervision/Set-up Stability: good, no overt loss of balance or significant path deviation, benefits from front wheeled walker for balance. Assessment of Gait: Patient ambulates with decreased gait speed from baseline but overall demonstrates improvements in posture and alignment to the walker. Ambulates with reciprocal, step through pattern but decreased step length and height bilaterally. Cueing Provided: Verbal Training/Intervention: Verbal cues for tall posture and proximity to walker, educated patient's spouse on how to guard the patient. Patient able to complete with contact guard assist from her husbandinitially but able to progress to supervision. Response: No adverse reaction Stairs/Curb # Stairs: 7 Rails: 2 Device: Gait belt # of Assistants: 1 Level of Assistance: Contact guard assistance Stair Navigation Pattern-Ascending: Step-to pattern Stair Navigation Lead Foot-Ascending: Right Stair Navigation Pattern-Descending: Step-to pattern Stair Navigation Lead Foot-Descending: Left Training/Intervention: Facilitated stair training for home discharge. Patient completed first trialof 3 stairs with assist from therapist. Verbal cues to ascend leading with stonger LE (patient identified as R) and descend leading with weaker LE (L LE). Verbal cues for a step-to pattern for stability and energy conservation. Patient then completed second trial of 4 stairs with assist from her . Education was provided to the on how to safely guard the patient. Patient and spouse verbalized feeling comfortable and confident completing stairs for discharge. The patient was instructed on and performed the following exercises to restore strength, endurance,range of motion, and flexibility in order to improve functional performance Seated Exercises Seated Exercise - Side Addressed: Bilateral Seated Exercise: Ankle pumps, Long arc quads, Marching Exercise Mode: Active motion against gravity Seated Exercise Comments: Reviewed seated home exercise program and provided the patient with a booklet. Education provided regarding frequency and dosing as well as ways to progress/regress each exercise. Patient verabalized understanding. Standing Exercises Standing Exercise - Side Addressed: Bilateral Standing Exercise: Marching, Hip extension, Hip abduction, Heel raises, Squats Exercise Mode: Active motion against gravity Standing Exercise Comments: Initiated standing home exercise program and provided the patient with a booklet. Education provided regarding frequency and dosing as well as ways to progress/regress each exercise. Emphasized the importance of not overdoing the exercises or pushing through pain. Patient verabalized understanding. Standing Exercise 1: repeated sit<>stands Education provided this session: Collaboratively discussed goals of session and PT plan of care. Provided education on home exercise and walking program guidelines. Education provided regarding activity modification and energy conservation techniques- discussed the benefit of breaking activity up during the day to allow the patient to fully participate in all cares and activities. Also emphasizedthe benefit of multiple short bouts of ambulation as opposed to one long walk to build activity tolerance over time. Patient's nurse was contacted and patient's status was discussed Patient was left in bedside chair at end of session with call light in reach, all needs met and questions answered. Outcome Measures [facility] Inpatient Short Form: AM-PAC Basic Mobility (V.2) How much help from another person do you currently need???If the patient hasn't done an activity recently, how much help from another person do you think he/she would needif he/she tried? 1. Turning from your back to your side while in a flat bed without using bedrails?: A Little 2. Moving from lying on your back to sitting on the side of a flat bed without using bedrails?: A Little 3. Moving to and from a bed to a chair (including a wheelchair)?: A Little 4. Standing up from a chair using your arms (e.g., wheelchair, or bedside chair)?: A Little 5. To walk in hospital room?: A Little 6. Climbing 3-5 steps with a railing?: A Little AM-[facility] Basic Mobility (V.2) Raw Score: 18 AM-[facility] Basic Mobility (V.2) Standardized Score: 41.05 Interpretation: Clinicians answer the -[facility] Inpatient Short Form based on observed patient activity and/or clinical judgement (ie. patient can be scored without physically performing each activity) Based on scoring guidelines using the raw score value: Those going to home had an average score at or above 18 Those going to facility had an average score at or below 17 Assessment Discharge Therapy Needs - PT: Ongoing skilled physical therapy (outpatient per patient preference) Skilled therapy can include physical therapy provided by home health, outpatient clinic, or a post-acute facility. The location of these services is determined by the patient's care team in partnership with patient/family. Level of Care Needed - PT: Assistance with stairs Equipment Recommended - PT: Front-wheeled walker patient owns Barriers to Discharge Home: None From a physical therapy perspective, the level of care above has been recommended for Ms. Colon after hospital discharge. This level of care is based on her functional abilities during today's session. This may change throughout the hospital course and will be updated as appropriate. Clinical Impression of today's session: The patient tolerated today's session well and has made great progress with therapy. She was able to complete all mobility with contact guard assist or less and a front wheeled walker. The patient and spouse expressed goals to discharge home. During today's session the patient's spouse was educatedon safe patient guarding techniques, the were able to safely navigate stairs without difficulty. Time was taken to provide education on a home exercise program and walking recommendations. The patient and spouse verbalize feeling comfortable and confident discharging at the patient's current level of mobility. They own all recommended DME and plan to follow up with outpatient PT. Plan to completeorders and sign off at this time. Rehab potential: Ms. Colon has Good potential to achieve established physical therapy goals withinthe time frame outlined below. Progress: All PT goals achieved Functional Goals and Timeframes: PT Inpatient Goals PT Goal #1: Patient will be able to complete all bed mobility independently with no physical assistand no verbal cues necessary in order to facilitate return to PLOF. PT Goal #1 Status: Achieved PT Goal #2: Patient will be able to complete STS transfer from edge of bed to standing modified independent utilizing front wheel walker for assist, in order to allow for functional transfers at home. PT Goal #2 Status: Achieved (completed with supervision- no concerns) PT Goal #3: Patient will be able to ambulate 30m modified independent utilizing front wheel walker for assist, in order to allow for functional ambulation upon DC. PT Goal #3 Status: Achieved (with supervision- no concerns for discharge) PT Goal #4: Patient will be able to safely navigate 2 stair(s) under supervision in order to allow access into/to all levels of their home prior to discharge. PT Goal #4 Status: Achieved (completing with contact guard assist, no concerns) Plan Patient agrees with the plan of care and goals. Treatment Plan: Plan: Discontinue PT PT Frequency: PT Inpatient Duration : Until goals are met or hospital discharge Requires Inpatient Follow-Up: No PT Plan Comments: Patient has demonstrated all necessary functional criteria for safe discharge. Patient's caregiver verbalizes feeling comfortable and confident assisting the patient. Patient has noremaining questions or concerns for inpatient PT. 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 Visit Tracking: Billing: Time Spent with Patient Therapeutic Interventions Gait Training (min): 20 min Therapeutic Exercise (min): 16 min Time Tracking Total Timed Units (min): 36 min Total Treatment Time (min): 36 min Mabel Lao P.T., D.P.TAdalid NT REPRESENTATIVE * Claudette Izaguirre M.D. - 04/22/2023 7:10 AM CST Images from the original note were not included. HEMATOLOGY 3 PROGRESS NOTE SUBJECTIVE Darcy Colon is an 82-year-old female with medical comorbidities including mild cognitive impairment, parkinsonism, HTN, breast cancer in 2017 s/p lumpectomy and radiation, nonmelanoma skin cancer,osteopenia, B12 deficiency on supplementation, and GERD who was admitted on 04/02 for generalized weakness, confusion, and poor oral intake. 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 INTERVAL EVENTS: -Uneventful night, patient is feeling well this morning with no new symptoms to report. BMP is stable. -Tolerating increased oral intake well. No nausea or vomiting. -Dispo to SNF likely Sunday pending bed availability OBJECTIVE VITAL SIGNS Temperature: [36.4 ??C-36.8 ??C] 36.4 ??C Resp Rate: [15-16] 15 Blood Pressure: (120-142)/(61-79) 142/61 SpO2: [96 %-100 %] 97 % Weight: [47.7 kg] 47.7 kg BMI (Calculated): [21.2 kg/m??] 21.2 kg/m?? Pulse Rate: [73-82] 73 PHYSICAL EXAM General: Alert, sitting in bed comfortably, pleasant Skin: Pale, warm and dry, no rashes or lesions appreciated on exposed skin Eyes: Pupils equal and reactive to light, extraocular movements intact, no scleral icterus ENT: Slightly dry lips with otherwise moist mucous membranes. Lungs: Normal work of breathing on room air, clear to auscultation. Heart: Regular rate and rhythm, no murmurs, rubs, or gallops appreciated. Abdomen: Soft, nondistended, nontender throughout the abdomen. Splenomegaly. Neuro: Generalized weakness with mild quadriparesis and generalized hyperreflexia. Bradykinesia without overt rigidity. Right foot drop. Mental: Alert and oriented to self, place, situation, month, and year. Engaged in conversation. Unable to say the months of the year backwards. ASSESSMENT / PLAN Ms. Darcy Colon is an 82-year-old female with medical comorbidities including mild cognitive impairment, parkinsonism, HTN, breast cancer in 2017 s/p lumpectomy and radiation, nonmelanoma skin cancer, osteopenia, B12 deficiency on supplementation, and GERD who was admitted on 04/02 for generalized weakness, confusion, and poor oral intake. 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 She received her first rituximab infusion on 04/13 without complications. She presented with significant hypercalcemia, which has improved with fluid resuscitation and discontinuation of calcium, vitamin-D, and hydrochlorothiazide. Other workup for hypercalcemia has remained negative. Hypercalcemia to this degree is not typically associated with splenic marginal zone lymphoma, however, PET-CT does not suggest that there evidence of diffuse large B-celltransformation or another available site biopsy. If hypercalcemia recurs, additional tissue diagnosis may be indicated. She will continue on rituximab with next dose given on 04/20. Big picture horta, the patient remains functionally limited and requiring assistance with performingself transfers with significant generalized weakness. Speech therapy evaluation on 04/13 did not reveal overt oropharyngeal dysphagia and more so just revealed generalized weakness limiting p.o. intake, which required supplementation with tube feeds. As her alertness has improved, she was able to advance to a regular diet and has actually been able to consume an adequate number of calories by PO. NG tube has since been removed. Continues to work with PT, OT, AUTOMOTIVE ELECTRICAL HELPER. SW is assisting with SNF placement perhaps for early next week. Weekly rituximab continues, last infusion Sunday, 04/20. Transfuse to keep hemoglobin > 7 and platelets > 10. Patient does not require premed prior toRBCs and platelets. 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-cycle 1, day 3 of weekly rituximab # Macrocytic anemia # Thrombocytopenia # History of breast cancer Workup: -PET-CT: Moderately FDG avid splenomegaly and diffuse bone marrow activities suspicious for lymphoproliferative process -Bone marrow biopsy: Involved by a CD5 negative, CD10 negative B-cell lymphoproliferative disorder,kappa light chain restricted, 70% hypercellularity -MRI brain w/o PATIENT REGISTRATION REP involvement -Folate and B12 normal -Fat pad biopsy negative for amyloid -Beta-2 microglobulin: 12.10 Plan: -Anemia and thrombocytopenia likely 2/2 bone marrow suppression -Cycle 1 weekly rituximab (D1,8,15,22); most recent dose 04/20 -Continue allopurinol x 10 days (04/12-04/21) # Hypercalcemia-resolved # Hypokalemia # TKM-snspfxdge-getflbb likely a component of CKD based on cystatin C Workup: -1,25 hydroxy vitamin D 66 -PTH <6 -PTHrP negative -S/p total of 15 L of fluid, lasix 20 mg IV x2, Zometa, and calcitonin x2 -UA negative Plan: -Encourage oral intake -Hold off on additional fluids given euvolemia and hypercalcemia resolved -Replace electrolytes as needed -Trend cystatin C # Toxic metabolic encephalopathy-improving # Delirium # Mild cognitive impairment # Parkinsonism Workup: -MRI brain and spine negative for lymphoma involvement -Amyloid negative -B6 and thiamine deficiency -EMG and nerve conduction studies negative for large fiber neuropathy or polyradiculopathy -Autoimmune paraneoplastic eval with very mildly elevated GAD65 Ab Plan: -Neuro previously evaluated: -AMS possibly 2/2 underlying neurodegenerative disorder which has been compounded by nutritional deficiencies -Requires OP follow up after discharge -Thiamine 100 mg daily -B6 100 mg daily # Malnutrition Severe Protein-Calorie # Vitamin B6 Deficiency # Thiamine deficiency # 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 # Dysphagia -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, has overall labial weakness without any overt oropharyngeal dysphagia -Regular diet with high protein, high calorie options -Strict calorie counts -Completed course of IV thiamine, continue daily PO supplementation with 100 mg daily -Pyridoxine (B6) 100 mg daily -Continue multivitamin -PT/OT/Speech following # Hypertension Essential Primary -Hold home HCTZ given hypercalcemia, monitor BP # Gastroesophageal Reflux Disease Without Esophagitis -Pantoprazole 40 mg daily # Generalized anxiety disorder -Continue bupropion and escitalopram # Glaucoma -Continue brimonidine, dorzolamide-timolol, and ketorolac ophthalmic solution # Elevated Alkaline Phosphatase -Alk phos stably elevated -Monitor LFTs intermittently Current Activity/Mobility: BMAT Level 2 (Able to extend knee but cannot stand; needs lift equipment) Fall Injury Prevention: I have discussed My Plan for Safe Activity with the patient. Diet: regular, high calorie, high protein diet Tubes/lines: Lines, Drains, and Airways Drain Duration External Urinary Catheter Female 16d 11h Peripheral IV Duration Peripheral IV 04/07/23 20 G Anterior;Lower;Right Forearm 14d 17h VTE prophylaxis: heparin Disposition: [facility] Facility with expected discharge date early next week Surrogate Decision Maker: Spouse, Gerhard Stable to discharge criteria (not met): Functional status Severe Malnutrition The patient meets the ASPEN Criteria of malnutrition based on: Energy Intake: Less than or equal to 75% of estimated energy requirement for greater than or equal to 1 month Interpretation of Weight Loss: greater than 5% 1 month Body Fat: Mild Loss Muscle Mass: Mild Loss This is in the context of Chronic Illness. Malnutrition Present Upon Admission: Yes Agree with Registered Dietitian's assessment and treatment plan: Interventions: Medical food supplement, Increase nutrient intake with small, frequent meals and/or snacks, Assess oral intake with calorie count Plan discussed with the Hematology 3 Support Associate, Lambert Kaiser M.D., who was present during thekey portions of the evaluation today. [place] [phone] with any questions or concerns. Claudette Izaguirre MD PGY-1 NT REPRESENTATIVE Associated attestation - Lambert Roy M.D. - 04/22/2023 2:50 PM CLIENT REPRESENTATIVE I saw and evaluated the patient, participating in the jorge portions of the service. I reviewed the resident/fellow???s note. I agree with the resident/fellow???s findings and plan. * Claudette Izaguirre M.D. - 04/21/2023 7:39 AM CST Images from the original note were not included. HEMATOLOGY 3 PROGRESS NOTE SUBJECTIVE Darcy Colon is an 82-year-old female with medical comorbidities including mild cognitive impairment, parkinsonism, HTN, breast cancer in 2017 s/p lumpectomy and radiation, nonmelanoma skin cancer,osteopenia, B12 deficiency on supplementation, and GERD who was admitted on 04/02 for generalized weakness, confusion, and poor oral intake. 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 INTERVAL EVENTS: -Stable overnight and feeling well this morning with no new symptoms to report. BMP is stable. -Tolerating increased oral intake well. Added Zofran for nausea, QTc okay. -Rituximab 600 mg infusion 04/20 -Hgb: 8.0, Plt: 104, WBC: 2.7, Total calcium: 8.3 -Dispo to SNF likely Sunday pending bed availability OBJECTIVE VITAL SIGNS Temperature: [36.5 ??C-36.9 ??C] 36.5 ??C Resp Rate: [15-16] 15 Blood Pressure: (117-141)/(55-76) 133/68 SpO2: [95 %-99 %] 96 % Weight: [51.8 kg] 51.8 kg BMI (Calculated): [23.1 kg/m??] 23.1 kg/m?? Pulse Rate: [73-81] 77 PHYSICAL EXAM General: Alert, sitting in bed comfortably, pleasant Skin: Pale, warm and dry, no rashes or lesions appreciated on exposed skin Eyes: Pupils equal and reactive to light, extraocular movements intact, no scleral icterus ENT: Slightly dry lips with otherwise moist mucous membranes. Lungs: Normal work of breathing on room air, clear to auscultation. Heart: Regular rate and rhythm, no murmurs, rubs, or gallops appreciated. Abdomen: Soft, nondistended, nontender throughout the abdomen. Splenomegaly. Neuro: Generalized weakness with mild quadriparesis and generalized hyperreflexia. Bradykinesia without overt rigidity. Right foot drop. Mental: Alert and oriented to self, place, situation, month, and year. Engaged in conversation. Unable to say the months of the year backwards. ASSESSMENT / PLAN Ms. Darcy Colon is an 82-year-old female with medical comorbidities including mild cognitive impairment, parkinsonism, HTN, breast cancer in 2017 s/p lumpectomy and radiation, nonmelanoma skin cancer, osteopenia, B12 deficiency on supplementation, and GERD who was admitted on 04/02 for generalized weakness, confusion, and poor oral intake. 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 She received her first rituximab infusion on 04/13 without complications. She presented with significant hypercalcemia, which has improved with fluid resuscitation and discontinuation of calcium, vitamin-D, and hydrochlorothiazide. Other workup for hypercalcemia has remained negative. Hypercalcemia to this degree is not typically associated with splenic marginal zone lymphoma, however, PET-CT does not suggest that there evidence of diffuse large B-celltransformation or another available site biopsy. If hypercalcemia recurs, additional tissue diagnosis may be indicated. She will continue on rituximab with next dose given on 04/20. Big picture horta, the patient remains functionally limited and requiring assistance with performingself transfers with significant generalized weakness. Speech therapy evaluation on 04/13 did not reveal overt oropharyngeal dysphagia and more so just revealed generalized weakness limiting p.o. intake, which required supplementation with tube feeds. As her alertness has improved, she was able to advance to a regular diet and has actually been able to consume an adequate number of calories by PO. NG tube has since been removed. Continues to work with PT, OT, AUTOMOTIVE ELECTRICAL HELPER. SW is assisting with SNF placement perhaps for early next week. Weekly rituximab continues, last infusion Sunday, 04/20. Transfuse to keep hemoglobin > 7 and platelets > 10. Patient does not require premed prior toRBCs and platelets. 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-cycle 1, day 3 of weekly rituximab # Macrocytic anemia # Thrombocytopenia # History of breast cancer Workup: -PET-CT: Moderately FDG avid splenomegaly and diffuse bone marrow activities suspicious for lymphoproliferative process -Bone marrow biopsy: Involved by a CD5 negative, CD10 negative B-cell lymphoproliferative disorder,kappa light chain restricted, 70% hypercellularity -MRI brain w/o PATIENT REGISTRATION REP involvement -Folate and B12 normal -Fat pad biopsy negative for amyloid -Beta-2 microglobulin: 12.10 Plan: -Anemia and thrombocytopenia likely 2/2 bone marrow suppression -Cycle 1 weekly rituximab (D1,8,15,22); most recent dose 04/20 -Continue allopurinol x 10 days (04/12-04/21) # Hypercalcemia-resolved # Hypokalemia # LCJ-lsgbonwmk-sqymyad likely a component of CKD based on cystatin C Workup: -1,25 hydroxy vitamin D 66 -PTH <6 -PTHrP negative -S/p total of 15 L of fluid, lasix 20 mg IV x2, Zometa, and calcitonin x2 -UA negative Plan: -Encourage oral intake -Hold off on additional fluids given euvolemia and hypercalcemia resolved -Trend cystatin C # Toxic metabolic encephalopathy-improving # Delirium # Mild cognitive impairment # Parkinsonism Workup: -MRI brain and spine negative for lymphoma involvement -Amyloid negative -B6 and thiamine deficiency -EMG and nerve conduction studies negative for large fiber neuropathy or polyradiculopathy -Autoimmune paraneoplastic eval with very mildly elevated GAD65 Ab Plan: -Neuro previously evaluated: -AMS possibly 2/2 underlying neurodegenerative disorder which has been compounded by nutritional deficiencies -Requires OP follow up after discharge -Thiamine 100 mg daily -B6 100 mg daily # Malnutrition Severe Protein-Calorie # Vitamin B6 Deficiency # Thiamine deficiency # 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 # Dysphagia -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, has overall labial weakness without any overt oropharyngeal dysphagia -Regular diet with high protein, high calorie options -Completed course of IV thiamine, continue daily PO supplementation with 100 mg daily -Pyridoxine (B6) 100 mg daily -Continue multivitamin -PT/OT/Speech following # Hypertension Essential Primary -Hold home HCTZ given hypercalcemia, monitor BP # Gastroesophageal Reflux Disease Without Esophagitis -Pantoprazole 40 mg daily # Generalized anxiety disorder -Continue bupropion and escitalopram # Glaucoma -Continue brimonidine, dorzolamide-timolol, and ketorolac ophthalmic solution # Elevated Alkaline Phosphatase -Alk phos stably elevated -Monitor LFTs intermittently Current Activity/Mobility: BMAT Level 2 (Able to extend knee but cannot stand; needs lift equipment) Fall Injury Prevention: I have discussed My Plan for Safe Activity with the patient. Diet: dysphagia and tube feeds diet Tubes/lines: Lines, Drains, and Airways Drain Duration External Urinary Catheter Female 15d 12h Peripheral IV Duration Peripheral IV 04/07/23 20 G Anterior;Lower;Right Forearm 13d 18h VTE prophylaxis: heparin Disposition: [facility] Facility with expected discharge date early next week Surrogate Decision Maker: Spouse, Gerhard Stable to discharge criteria (not met): Functional status Severe Malnutrition The patient meets the ASPEN Criteria of malnutrition based on: Energy Intake: Less than or equal to 75% of estimated energy requirement for greater than or equal to 1 month Interpretation of Weight Loss: greater than 5% 1 month Body Fat: Mild Loss Muscle Mass: Mild Loss This is in the context of Chronic Illness. Malnutrition Present Upon Admission: Yes Agree with Registered Dietitian's assessment and treatment plan: Interventions: Medical food supplement, Increase nutrient intake with small, frequent meals and/or snacks, Assess oral intake with calorie count Plan discussed with the Hematology 3 Support Associate, Lambert Kaiser M.D., who was present during thekey portions of the evaluation today. [place] [phone] with any questions or concerns. Claudette Izaguirre MD PGY-1 NT REPRESENTATIVE Associated attestation - Lambert Roy M.D. - 04/21/2023 12:59 PM CLIENT REPRESENTATIVE I saw and evaluated the patient, participating in the jorge portions of the service. I reviewed the resident/fellow???s note. I agree with the resident/fellow???s findings and plan. * Robbie Jackson, Oren.D., R.Ph. - 04/20/2023 5:13 PM CST Pharmacist Progress Note 82 y.o. female with newly diagnosed LPL/splenic MZL transferred to [facility] for treatment with rituximab. PMH: history of mild cognitive impairment, breast cancer (treated with lumpectomy and sentinel nodedissection, hypofractionated whole breast radiation, anastrozole, tamoxifen), non-melanoma skin cancer, anxiety, depression, osteopenia, and GERD OBJECTIVE Home medications Held: carbidopa-levodopa and donepezil (never started), aspirin, HCTZ, hydroquinone 4% cream, calcium-vitamin D, vitamin D3, vitamin B12 Changed: acetaminophen (changed frequency), bupropion to IR, PPI interchange New: senna-S, MiraLAX, prochlorperazine, MV, thiamine, first mouthwash, pyridoxine Patient own medications: none VTE prophylaxis: SQH GI prophylaxis: lansoprazole Antimicrobial prophylaxis: none ASSESSMENT / PLAN #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 involving 70% bone marrow cellularity, in favor of LPL vs splenic MZL Rituximab C1D1 04/13, C1D8 04/20 Will be given weekly x 4 doses; next dose due 04/26 #TLS Monitoring Allopurinol 300 mg daily 04/12 G6PD adequate for rasburicase #Hypercalcemia; now resolved s/p intermittent furosemide IVB, zoledronic acid 4 mg (04/12), and calcitonin 220 mg x 2 doses (04/13) #Dysphagia; improving NGT removed 04/18, tolerating regular diet and PO medication administration Changes to medications anticipated at discharge: New: TBD Changes: TBD Discontinue: TBD Rx approval pending: none Dispo: Tentative plan to discharge to SNF early next week Robbie Jackson Pharm.D., R.Ph. NT REPRESENTATIVE * Katerin Fiore P.T., D.P.T. - 04/20/2023 1:22 PM CST Physical Therapy Inpatient Treatment Note SUBJECTIVE Patient's Name: Darcy Colon Referring/Attending: Lambert Roy M.D. Medical Diagnosis: Hypercalcemia [E83.52] Hypokalemia [E87.6] Weakness General [R53.1] Lymphoma (HCC) [C85.90] Reason for Referral: PT Evaluate and Treat PT Evaluate and Treat - General Acute Onset Date: 04/02/23 Payor: MEDICARE / Plan: MEDICARE A AND B / Product Type: Medicare / History of Present Illness: Ms. Colon is hospitalized on [place] [id number] ([facility]) for evaluation and management of progressive weakness and confusion. Medical comorbidities include history of mild cognitive impairment, breast cancer in remission, non-melanoma skin cancer, anxiety, depression, osteopenia, and GERD. Please see electronic medical record for full past medical history. Patient/Caregiver Goals: no goals stated Patient Comments: Agreeable to PT. No pain stated. Seated in bedside chair. Eager to visit with evelia this afternoon. Precautions Other Precautions: Fall Risk, decreased functional use of right upper extremity dominant hand; generalized weakness; double vision, aspiration precautions OBJECTIVE Vitals stable per chart review. Treatment consisted of: Sit to Stand Transfers # of Assistants: 1 Transfer Surface: Chair Transfer Equipment: Gait belt, Front wheeled walker Level of Assistance: Contact guard assistance Assessment/Delivery: Assessed, Instructed Comments: Good hand placement. Increased time to stand. Stand to Sit Transfers # of Assistants: 1 Transfer Surface: Chair Transfer Equipment: Gait belt, Front wheeled walker Level of Assistance: Contact guard assistance Assessment/Delivery: Assessed, Instructed Comments: Verbal cues to make sure she fully squared herself and the walker up with the sitting surface and reaches back for the armrest and focuses on sitting slowly. Gait Assessment/Training Distance (m): 30 m Surface: Even, Smooth/hard Device: Gait belt, Front-wheeled walker # of Assistants: 1 Level of Assistance: Contact guard assistance Quality/Pattern: Shuffling, Decreased heel strike Stability: fair. Assessment of Gait: Patient ambulates with decreased gait speed, decreased step length, limited foot clearance, forward flexed posture, downward gaze and slightly behind front wheeled walker. She showed some awareness for her walker getting too far forward today as she would stop and move the walker close and then continue to walk. Cueing Provided: Verbal Training/Intervention: Light tactile cues for stability. Verbal cues for upright posture, forward gaze, and to stand within the front wheeled walker Response: No adverse reaction Patient's nurse was contacted and patient's status was discussed Patient was left in bedside chair at end of session with call light in reach, all needs met and questions answered. Outcome Measures -[facility] Inpatient Short Form: AM-PAC Basic Mobility (V.2) How much help from another person do you currently need???If the patient hasn't done an activity recently, how much help from another person do you think he/she would needif he/she tried? 1. Turning from your back to your side while in a flat bed without using bedrails?: A Little 2. Moving from lying on your back to sitting on the side of a flat bed without using bedrails?: A Little 3. Moving to and from a bed to a chair (including a wheelchair)?: A Little 4. Standing up from a chair using your arms (e.g., wheelchair, or bedside chair)?: A Little 5. To walk in hospital room?: A Little 6. Climbing 3-5 steps with a railing?: A Lot AM-PAC Basic Mobility (V.2) Raw Score: 17 AM-PAC Basic Mobility (V.2) Standardized Score: 39.67 Interpretation: Clinicians answer the AM-PAC Inpatient Short Form based on observed patient activity and/or clinical judgement (ie. patient can be scored without physically performing each activity) Based on scoring guidelines using the raw score value: Those going to home had an average score at or above 18 Those going to facility had an average score at or below 17 Assessment Discharge Therapy Needs - PT: Ongoing skilled physical therapy Skilled therapy can include physical therapy provided by home health, outpatient clinic, or a post-acute facility. The location of these services is determined by the patient's care team in partnership with patient/family. Level of Care Needed - PT: Assistance with transfers (Comment), Assistance with walking and moving around the home, Assistance with bed mobility, Assistance with stairs, Cognitive assistance needed, Physical assistance needed Equipment Recommended - PT: Hospital bed, Wheelchair, Front-wheeled walker Barriers to Discharge Home: Current functional status, Fall risk, Safety concerns Barriers to Discharge Comments: 2 stairs to enter residence. From a physical therapy perspective, the level of care above has been recommended for Ms. Colon after hospital discharge. This level of care is based on her functional abilities during today's session. This may change throughout the hospital course and will be updated as appropriate. Clinical Impression of today's session: Patient tolerated session well today. She was able to ambulate an increased distance and showed better safety awareness with front wheeled walker. Patient tends to ambulate with limited foot clearance and allows the walker to get far forward. She stopped a few times while ambulating to move the walker closer to her body. Patient will continue to benefit from skilled therapy to progress her functional independence. Rehab potential: Ms. Colon has Good potential to achieve established physical therapy goals withinthe time frame outlined below. Progress: Slow progress, limited activity tolerance, Slow progress, cognitive deficits Functional Goals and Timeframes: PT Inpatient Goals PT Goal #1: Patient will be able to complete all bed mobility independently with no physical assistand no verbal cues necessary in order to facilitate return to PLOF. PT Goal #1 Status: Progressing PT Goal #2: Patient will be able to complete STS transfer from edge of bed to standing modified independent utilizing front wheel walker for assist, in order to allow for functional transfers at home. PT Goal #2 Status: Progressing PT Goal #3: Patient will be able to ambulate 30m modified independent utilizing front wheel walker for assist, in order to allow for functional ambulation upon DC. PT Goal #3 Status: Progressing PT Goal #4: Patient will be able to safely navigate 2 stair(s) under supervision in order to allow access into/to all levels of their home prior to discharge. PT Goal #4 Status: Ongoing Plan Patient agrees with the plan of care and goals. Treatment Plan: Plan: Continue with current plan PT Frequency: PT Amount: 1 visit per day PT Frequency: 5 times per week PT Inpatient Duration : Until goals are met or hospital discharge Requires Inpatient Follow-Up: Yes PT - Next Inpatient Appointment: 04/23/23 PT Plan Comments: Continue to progress mobility, transfers, ambulation, balance and safety. Stair training when appropriate. 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 Visit Trackin Billing: Time Spent with Patient Therapeutic Interventions Therapeutic Activity (min): 20 min Time Tracking Total Timed Units (min): 20 min Total Treatment Time (min): 20 min Katerin Fiore P.T., D.P.T. NT REPRESENTATIVE * Arleen Díaz - 04/20/2023 10:50 AM CST Occupational Therapy [facility] Inpatient Treatment SUBJECTIVE Patient's Name: Darcy Colon Referring/Attending Provider: Lambert Roy M.D. Reason for Referral: Occupational Therapy Evaluation and Treatment History of Present Illness: Darcy Colon is a 82 y.o. female who was admitted to [facility] in [place] on 04/02/2023 for Hypercalcemia [E83.52] Hypokalemia [E87.6] Weakness General [R53.1] Lymphoma (HCC) [C85.90]. Precautions Other Precautions: Fall Risk, decreased functional use of right upper extremity dominant hand; generalized weakness; double vision, aspiration precautions Pain Assessment: Pain not reported during session. Subjective Comments: Agreeable to therapy session. Team Communication: The patient's status was discussed and coordination of care occurred with coil winder/Caregiver Present: Patient's , Gerhard, was present during today's session. OBJECTIVE Vital Signs: Post Activity: Blood Pressure: 167/89 (100) mmHg Patient's post-activity vitals were taken seated at edge of bed due to an episode of emesis. Patient's vitals were monitored the remainder of session. Outcome Measures: AM-PAC Inpatient Short Form: Putting on and taking off regular lower body clothing?: A lot Putting on and taking off regular upper body clothing?: A Little Taking care of personal grooming such as brushing teeth?: None Bathing (including washing, rinsing, drying)?: A lot Toileting, which includes using toilet, bedpan, or urinal?: A Little Eating meals?: None Daily Activities Raw Score (max 24): 18 Daily Activities Standardized Score: 38.66 Interpretation: Based on scoring guidelines using the raw score value: Those going to home had an average score at or above 18 Those going to facility had an average score at or below 17 Clinicians answer the [facility] Inpatient Short Form based on observed patient activity and/or clinical judgement (ie. patient can be scored without physically performing each activity) Cognition: Will further assess and monitor as warranted Therapeutic Interventions: FUNCTIONAL TRANSFERS: SIT<>STAND - Assist Level: Stand By Assist - Equipment: front wheeled walker and gait belt - Surface: Bed, Chair - Therapist Delivery: facilitated - Assist/Cues: verbal for proper hand placement Patient engaged in [id number] functional transfer and required standby assistance while he was front wheeled walker and gait belt while at edge of bed and bedside chair. Therapist facilitated functional transfers for completion and patient is requiring 1 verbal cue for proper hand placement for 1hand on front- wheeled walker and 1 hand on seated surface. BED MOBILITY: SUPINE to SIT - Assist Level: Stand By Assist - Device: use of bed rail - Therapist Delivery: assessed Patient engaged in supine to sit bed mobility required standby assist while patient used bed rails.Therapist assessed for patient safety as well as completion. Patient has been able to complete bed mobility with more ease compared to past sessions FUNCTIONAL MOBILITY: Mobility performed to practice household distances with supervision/stand by assistance and front wheeled walker and gait belt Patient participated in functional mobility around hospital bed in order to make home environment with front wheeled walker and gait belt. Patient required standby assist during functional mobility. THERAPEUTIC ACTIVITY: - Position: Standing - Assist Level: Stand By Assist - Balance Demand: dynamic - Tolerance: tolerated fairly well. - Assist/Cues for: initiation - Activity: Facilitated ADL Patient engaged in therapeutic activity of making hospital bed and required standby assistance while utilizing front-wheeled walker to ambulate around room. Patient practiced dynamic standing as wellas problem solving with steps for activity. Patient tolerated fairly well and required 1 verbal cues for initiation of placing pillows on bed. Education Provided: Activity Modification: - Patient was educated on activity modification and how to apply those techniques to activities of daily living. Energy Conservation: - Patient was educated on energy conservation and how to apply those techniques to activities of daily living. Instructed in energy conservation using the 4 P's. These include: Plan, Prioritize, Position, Pace. -Position is focused on the location of one's body located in an environment. Sit for activities asmuch as possible, avoid bending/overhead reaching, use good posture and slow/smooth movements, avoid fast or rushed movements. Slide objects instead of lifting, use wheeled carts to carry heavier loads, place commonly used items with an easy to reach. Patient was left in bedside chair at end of session with call light in reach, all needs met and questions answered. Assessment Discharge Therapy Needs - OT: Ongoing skilled occupational therapy Skilled therapy can include occupational therapy provided in home health, outpatient or post-acute facility. The location of these services is determined by patient's care team in partnership with patient/family. Barriers to Discharge Home: Current functional status, Fall risk, Safety concerns Level of Care Needed - OT: Assistance with toileting, Assistance with dressing, Assistance with toilet/shower transfers, Assistance with meal preparation, Physical assistance needed, Assistance with medication set up/administration, Assistance with personal financial advisor, Assistance with transportation, Assistance with showering/bathing, Assistance with housekeeping, Assistance with eating/feeding,Assistance with shopping, Cognitive assistance needed Clinical Impression: Currently, patient present with impairments including decreased functional strength, impaired static and dynamic standing balance, decreased safety and independence with functional mobility, diminished activity tolerance, pain that limits activity, and reduced range of motion that has limited engagement in ADLs and IADLs. Patient was supine in bed upon therapist arrival and accompanied by her . Patient is continuing to meet goals during inpatient care and is progressing towards increasing independence and safety. Patient was engaged, responsive, and agreeable to therapy during session.Patient stated that she was able to get a good night rest, and was willing to engage in therapeuticactivity to mimic home environment for making her bed with hospital sheets and pillows. Patient additionally engage in functional transfers as well as bed mobility and was successful with standby assist. Patient was able to successfully complete therapeutic activity for 10 minutes with making her bed and required 1 verbal cue for initiation of tasks. Patient was able to ambulate around hospital bed and tolerated activity fairly well. However, patient experienced a episode of emesis while ambulating to bedside chair after completion of therapeutic activity and required to sit at edge of bed. Patient's vitals were monitored throughout remainder of session and RN was notified of patient's status. Patient stated that she has been experiencing nausea this morning due to not eating breakfast. The patient is still unsure when she will discharge as well as where she was discharge to upon approval. Patient will engage in functional transfers to commode in bathroom in order to increase independence in next session. The patient will benefit from ongoing occupational therapy services while hospitalized in order to improve engagement and independence in meaningful occupations. Plan OT Plan Comments: Plan for next session includes progress transfers/mobilty to commode and bathroomto increase independence upon discharge. Functional Goals: OT Goal #1: Patient will demonstrate all functional transfers with stand by assist to progress towards baseline. OT Goal #1 Status: Achieved OT Goal #2: Patient will demonstrate total body dressing and toileting with minimal assistance of 1to progress towards baseline. OT Goal #2 Status: Progressing OT Goal #3: Patient will increase functional use of right upper extremity in self feeding+ groomingwith minimal assist to increase independence and self reliance in self cares. OT Goal #3 Status: Achieved OT Goal #4: Patient will tolerate sitting unsupported at EOB for greater than 10 minutes to facilitate independent participation in self-cares (grooming, feeding, upper body dressing). OT Goal #4 Status: Achieved Progress: Improving as expected Rehab potential: Ms. Colon has good potential to achieve established occupational therapy goals within the time frame outlined below. OT Frequency: OT Amount: 1 visit per day OT Frequency: 5 times per week OT Inpatient Duration : Until goals are met or hospital discharge Requires Inpatient OT Follow-Up: Yes OT - Next Inpatient Appointment: 04/23/23 Plan: Continue with current plan Treatment interventions may include: Treatment Interventions: Self-care/home management Occupational Therapy Attestation Statement: Patient agrees with the plan of care and goals. Billing: Time Spent with Patient Therapeutic Interventions Home Management Training (min): 32 min Time Tracking Total Timed Units (min): 32 min Total Treatment Time (min): 32 min Arleen Díaz OTS NT REPRESENTATIVE Associated attestation - Eden Rodgers Ed.D., O.T. - 04/20/2023 3:41 PM CLIENT REPRESENTATIVE This therapist has reviewed all documentation and supervised today???s session. The therapist agrees with the plan developed in collaboration with the patient. * Kyleigh Swan M.D. - 04/20/2023 6:58 AM CST Images from the original note were not included. HEMATOLOGY 3 PROGRESS NOTE SUBJECTIVE Darcy Colon is an 82-year-old female with medical comorbidities including mild cognitive impairment, parkinsonism, HTN, breast cancer in 2017 s/p lumpectomy and radiation, nonmelanoma skin cancer,osteopenia, B12 deficiency on supplementation, and GERD who was admitted on 04/02 for generalized weakness, confusion, and poor oral intake. 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 INTERVAL EVENTS: - Stable overnight and feeling well this morning with no new symptoms to report. BMP is stable. - Yesterday, achieved >2000 kcal in PO intake - Anticipating rituximab infusion today - Dispo to SNF likely today vs Sunday pending bed availability OBJECTIVE VITAL SIGNS Temperature: [36.3 ??C-36.7 ??C] 36.6 ??C Resp Rate: [16-17] 17 Blood Pressure: (124-141)/(54-78) 141/78 SpO2: [97 %-99 %] 97 % Weight: [52.5 kg] 52.5 kg BMI (Calculated): [23.4 kg/m??] 23.4 kg/m?? Pulse Rate: [76-91] 76 PHYSICAL EXAM General: Alert, chronically ill-appearing female, sitting in bed comfortably, no acute distress Skin: Pale, warm and dry, no rashes or lesions appreciated on exposed skin Eyes: Pupils equal and reactive to light, extraocular movements intact, no scleral icterus ENT: Slightly dry lips with otherwise moist mucous membranes. Lungs: Normal work of breathing on room air, diminished breath sounds at bilateral bases but otherwise clear to auscultation. Heart: Regular rate and rhythm, occasional PVCs, no murmurs, rubs, or gallops appreciated. Abdomen: Soft, nondistended, nontender throughout the abdomen. Splenomegaly. Neuro: Generalized weakness with mild quadriparesis and generalized hyperreflexia. Bradykinesia without overt rigidity. Right foot drop. Mental: Alert and oriented to self, place, situation, month, and year. Engaged in conversation. Unable to say the months of the year backwards. ASSESSMENT / PLAN Ms. Colon is hospitalized on Darcy Darlene is an 82-year-old female with medical comorbidities including mild cognitive impairment, parkinsonism, HTN, breast cancer in 2017 s/p lumpectomy and radiation, nonmelanoma skin cancer, osteopenia, B12 deficiency on supplementation, and GERD who was admitted on 04/02 for generalized weakness, confusion, and poor oral intake. 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 She received her first rituximab infusion on 04/13 without complications. She presented with significant hypercalcemia, which has improved with fluid resuscitation and discontinuation of calcium, vitamin-D, and hydrochlorothiazide. Other workup for hypercalcemia has remained negative. Hypercalcemia to this degree is not typically associated with splenic marginal zone lymphoma, however, PET-CT does not suggest that there evidence of diffuse large B-celltransformation or another available site biopsy. If hypercalcemia recurs, additional tissue diagnosis may be indicated. She will continue on rituximab with next dose planned on 04/20. Big picture horta, the patient remains functionally limited and requiring assistance with performingself transfers with significant generalized weakness. Speech therapy evaluation on 04/13 did not reveal overt oropharyngeal dysphagia and more so just revealed generalized weakness limiting p.o. intake, which required supplementation with tube feeds. As her alertness has improved, she was able to advance to a regular diet and has actually been able to consume an adequate number of calories by PO. NG tube has since been removed. Continues to work with PT, OT, AUTOMOTIVE ELECTRICAL HELPER. SW is assisting with SNF placement perhaps for early next week. Weekly rituximab continues, next infusion is today. Transfuse to keep hemoglobin > 7 and platelets > 10. Patient does not require premed prior toRBCs and platelets. PLAN FOR TODAY: [ ] Encourage PO, goal 3 nutrition shakes per day [ ] Rituximab today [ ] Disposition planning: no plans to SNF today #Lymphoplasmacytic lymphoproliferative disorder -splenic marginal zone lymphoma, stage IV versus Waldenstrom's macroglobulinemia-cycle 1, day 3 of weekly rituximab # Macrocytic anemia # Thrombocytopenia # History of breast cancer Workup: -PET-CT: Moderately FDG avid splenomegaly and diffuse bone marrow activities suspicious for lymphoproliferative process -Bone marrow biopsy: Involved by a CD5 negative, CD10 negative B-cell lymphoproliferative disorder,kappa light chain restricted, 70% hypercellularity -MRI brain w/o PATIENT REGISTRATION REP involvement -Folate and B12 normal -Fat pad biopsy negative for amyloid -Beta-2 microglobulin: 12.10 Plan: -Anemia and thrombocytopenia likely 2/2 bone marrow suppression -Cycle 1 weekly rituximab (D1,8,15,22); next dose 04/20 -Continue allopurinol x 10 days (04/12-04/21) # Hypercalcemia-resolved # Hypokalemia # TXO-vempsjvqn-kruzfwe likely a component of CKD based on cystatin C Workup: -1,25 hydroxy vitamin D 66 -PTH <6 -PTHrP negative -S/p total of 15 L of fluid, lasix 20 mg IV x2, Zometa, and calcitonin x2 -UA negative Plan: -Encourage oral intake -Hold off on additional fluids given euvolemia and hypercalcemia resolved -Trend cystatin C # Toxic metabolic encephalopathy-improving # Delirium # Mild cognitive impairment # Parkinsonism Workup: -MRI brain and spine negative for lymphoma involvement -Amyloid negative -B6 and thiamine deficiency -EMG and nerve conduction studies negative for large fiber neuropathy or polyradiculopathy -Autoimmune paraneoplastic eval with very mildly elevated GAD65 Ab Plan: - KB previously evaluated: - AMS possibly 2/2 underlying neurodegenerative disorder which has been compounded by nutritional deficiencies - Requires OP follow up after discharge # Malnutrition Severe Protein-Calorie (HCC) # Vitamin B6 Deficiency # Thiamine deficiency # 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 # Dysphagia - 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, has overall labial weakness without any overt oropharyngeal dysphagia - Regular diet with high protein, high calorie options - Completed course of IV thiamine, continue daily PO supplementation - Continue multivitamin - PT/OT/Speech following # Hypertension Essential Primary - Hold home HCTZ given hypercalcemia, monitor BP # Gastroesophageal Reflux Disease Without Esophagitis - Nexium daily through G tube -> transition back to protonix # Generalized anxiety disorder - Continue bupropion and escitalopram # Glaucoma - Continue brimonidine, dorzolamide-timolol, and ketorolac ophthalmic solution # Elevated Alkaline Phosphatase - ALK stably elevated - Monitor LFTs intermittently Current Activity/Mobility: BMAT Level 2 (Able to extend knee but cannot stand; needs lift equipment) Fall Injury Prevention: I have discussed My Plan for Safe Activity with the patient. Diet: dysphagia and tube feeds diet Tubes/lines: Lines, Drains, and Airways Drain Duration External Urinary Catheter Female 14d 11h Peripheral IV Duration Peripheral IV 04/07/23 20 G Anterior;Lower;Right Forearm 12d 17h VTE prophylaxis: heparin Disposition: [facility] Facility with expected discharge date Surrogate Decision Maker: Spouse, Gerhard Stable to discharge criteria (not met): Functional status Severe Malnutrition The patient meets the ASPEN Criteria of malnutrition based on: Energy Intake: Less than or equal to 75% of estimated energy requirement for greater than or equal to 1 month Interpretation of Weight Loss: greater than 5% 1 month Body Fat: Mild Loss Muscle Mass: Mild Loss This is in the context of Chronic Illness. Malnutrition Present Upon Admission: Yes Agree with Registered Dietitian's assessment and treatment plan: Interventions: Medical food supplement, Increase nutrient intake with small, frequent meals and/or snacks, Assess oral intake with calorie count Plan discussed with the Hematology 3 Support Associate, Lambert Kaiser M.D., who was present during thekey portions of the evaluation today. [place] [phone] with any questions or concerns. Kyleigh Swan MD IM PGY-2 NT REPRESENTATIVE Associated attestation - Lambert Roy M.D. - 04/20/2023 5:14 PM CLIENT REPRESENTATIVE I saw and evaluated the patient, participating in the jorge portions of the service. I reviewed the resident/fellow???s note. I agree with the resident/fellow???s findings and plan. * Jessica Darnell M.S., RDN, LD - 04/19/2023 3:42 PM CST Nutrition Care Plan Follow Up Clinical Nutrition continues to follow patient for tube feeding recommendations/management ASSESSMENT Completed visit with patient, , and care team today. Current Nutrition (since admission): Patient ate very well yesterday, exceeding her calorie and protein needs. She noted she tolerated this very well. She finds the Ensures fine and has been enjoying the milkshakes. Tolerated Lemon Cream shake well. Commended patient on her ability to take in adequate PO intake! So far today, she has taken in 977 kcal and 41 g protein at breakfast of muffin, parfait, Ensure, and vanilla milkshake. At time of visit, she was working on her 2nd Ensure and a strawberry milkshake. She denies further questions at this time. Will continue calorie counts while admitted to further assess oral intake for the rest of admission. Possible d/c either tomorrow or Sunday. Patient's estimated calorie and protein needs have been communicated to her. RDN encouraged her to meet at least 75% of her needs daily (1012 kcal, 40 g protein). Results for the past 120 hrs: 24 Hr Total Calorie Intake 04/18/23 2359 1943 04/17/23 2359 684 04/16/23 2359 255 04/15/23 2359 121 04/14/23 2300 75 Results for the past 120 hrs: 24 Hr Total Protein Intake 04/18/23 2359 60 04/17/23 2359 31 04/16/23 2359 9 04/15/23 2359 2 04/14/23 2300 1 Current nutrition orders: Current Diet Adult Diet Regular; High Calorie, High Protein starting at 04/18 1704 GI Function: Last BM Date: 04/19/23, [place] Stool Chart: Type 4: Like a sausage or snake, smooth and soft, Passing Flatus: Yes. Medications: allopurinoL bisacodyL brimonidine buPROPion dorzolamide- timoloL escitalopram heparin (porcine) ketorolac lansoprazole polyethylene glycol pyridoxine (vitamin B6) sennosides-docusate sodium thiamine Pertinent Labs: Last 3 results Lab Units 04/19/23 0754 04/18/23 0047 04/17/23 0038 SODIUM mmol/L 141 139 140 POTASSIUM mmol/L 3.5* 3.7 3.4* CHLORIDE mmol/L 106 106 105 BUN mg/dL 23* 21 23* CREATININE mg/dL 0.89 0.89 0.88 PHOSPHORUS INORGANIC mg/dL -- -- 2.8 CALCIUM mg/dL 8.6* 8.8 9.1 Latest Reference Range & Units 04/02/23 16:14 04/04/23 08:27 04/04/23 08:28 04/05/23 15:41 04/05/23 15:42 04/05/23 15:43 04/05/23 15:44 25-Hydroxy D2 ng/mL <4.0 25-Hydroxy D3 ng/mL 69 25-Hydroxy D Total ng/mL 69 Folate, S >=4.0 mcg/L 8.9 9.0 A-Tocopherol, Vitamin E 5.5 - 17.0 mg/L 11.9 Pyridoxic Acid (PA), P 3 - 30 mcg/L <2 (L) Vitamin B12 Assay, S 180 - 914 ng/L 1300 (H) Nicotinic Acid (Niacin) Cutoff:<5.0 ng/mL <5.0 Nicotinamide 5.0 - 48.0 ng/mL 11.3 Nicotinuric Acid Cutoff:<5.0 ng/mL <5.0 Thiamine (Vitamin B1), WB 70 - 180 nmol/L 56 (L) Pyridoxal 5-Phosphate (PLP), P 5 - 50 mcg/L <2 (L) Ascorbic Acid, P 0.4 - 2.0 mg/dL 0.6 Riboflavin (Vitamin B2), P 1 - 19 mcg/L 30 (H) (L): Data is abnormally low (H): Data is abnormally high Weight since admission: Height: 149.9 cm Admission Weight: 54 kg (04/02/2023) Current Weight: 52.5 kg BMI (Calculated): 23.4 kg/m?? Weight change since admission: -1.5 kg Net IO Since Admission: 6,134 mL [04/19/23 1544] Estimated Needs: Total Calorie Needs: 9922-0401 calories/day Method to Estimate Energy Needs: kcal/kg (25-30 kcal/kg) Weight Used for Equation Calculations: 54 kg Total Protein Needs: 54 - 65 grams/day Method to Estimate Protein Needs (g/kg): 1 - 1.2 gm/kg Weight Used to Calculate Protein Needs (Kg): 54 kg Total Fluid Needs: 1350 - 1620 grams/day Method to Estimate Fluid Needs (mL/kg): 25-30 mL/kg Weight Used to Calculate Fluid Needs (Kg): 54 kg Nutrition Diagnosis: Inadequate protein-energy intake related to decreased appetite/ NV as evidenced by Family reported intake and >5% wt loss in 1 m Nutrition Diagnosis Reassessment: Ongoing Malnutrition (undernutrition) related to decreased appetite, disease process as evidenced by decreased oral intake and weight loss of 5% over the last 1 month. PLAN Nutrition Intervention: Medical food supplement, Increase nutrient intake with small, frequent meals and/or snacks, Assess oral intake with calorie count Nutrition parameter to monitor: Meals/Supplement Intake, Weight Status, Nausea/Vomiting/Diarrhea, Wound Healing ASPEN Criteria Malnutrition Status: Severe Malnutrition Recommendations: Strict Calorie Count! Consume 100% of 3 oral nutrition supplements Ensure +HP Consume 100% of 1-2 milkshakes Consume >75% of 3-4 meals/snacks daily. Will monitor for need for long-term enteral nutrition support. Clinical Nutrition will continue to follow. For questions about patient's nutritional care please contact pager [phone] on weekdays 07:30-16:00 or [phone] on weekends/holidays. NT REPRESENTATIVE * Robbie Jackson, Pharm.D., R.Ph. - 04/19/2023 3:41 PM CST Pharmacist Progress Note 82 y.o. female with newly diagnosed LPL/splenic MZL transferred to [facility] for treatment with rituximab. PMH: history of mild cognitive impairment, breast cancer (treated with lumpectomy and sentinel nodedissection, hypofractionated whole breast radiation, anastrozole, tamoxifen), non-melanoma skin cancer, anxiety, depression, osteopenia, and GERD OBJECTIVE Home medications Held: carbidopa-levodopa and donepezil (never started), aspirin, HCTZ, hydroquinone 4% cream, calcium-vitamin D, vitamin D3, vitamin B12 Changed: acetaminophen (changed frequency), bupropion to IR, PPI interchange New: senna-S, MiraLAX, prochlorperazine, MV, thiamine, first mouthwash, pyridoxine Patient own medications: none VTE prophylaxis: SQH GI prophylaxis: lansoprazole Antimicrobial prophylaxis: none ASSESSMENT / PLAN #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 involving 70% bone marrow cellularity, in favor of LPL vs splenic MZL Rituximab C1D1 = 04/13 Will be given weekly x 4 doses; next dose due 04/20 #TLS Monitoring Allopurinol 300 mg daily 04/12 G6PD adequate for rasburicase #Hypercalcemia; now resolved s/p intermittent furosemide IVB, zoledronic acid 4 mg (04/12), and calcitonin 220 mg x 2 doses (04/13) #Dysphagia; improving NGT removed 04/18, tolerating regular diet and PO medication administration Changes to medications anticipated at discharge: New: TBD Changes: TBD Discontinue: TBD Rx approval pending: none Dispo: Tentative plan to discharge to [facility] 04/20 versus 04/23 Robbie Jackson PharmYuliet., R.Ph. NT REPRESENTATIVE * Christiane Walsh, P.TAdalid, D.P.T. - 04/19/2023 3:26 PM CST Physical Therapy Inpatient Treatment Note SUBJECTIVE Patient's Name: Darcy Colon Referring/Attending: Lambert Roy M.D. Medical Diagnosis: Hypercalcemia [E83.52] Hypokalemia [E87.6] Weakness General [R53.1] Lymphoma (HCC) [C85.90] Reason for Referral: PT Evaluate and Treat PT Evaluate and Treat - General Acute Onset Date: 04/02/23 Payor: MEDICARE / Plan: MEDICARE A AND B / Product Type: Medicare / History of Present Illness: Ms. Colon is hospitalized on [place] [id number] ([facility]) for evaluation and management of progressive weakness and confusion. Medical comorbidities include history of mild cognitive impairment, breast cancer in remission, non-melanoma skin cancer, anxiety, depression, osteopenia, and GERD. Please see electronic medical record for full past medical history. Patient/Caregiver Goals: no goals stated Patient Comments: Upon arrival the patient was sitting edge of bed. She agreed to participate with physical therapy. OBJECTIVE Vitals not assessed. Treatment consisted of: 1.) Therapeutic Activities. The patient was instructed on and performed the following dynamic activities in order to improve functional strength, mobility, balance/coordination, and physical performance. Sit to Stand Transfers # of Assistants: 1 Transfer Surface: Bed, Chair Transfer Equipment: Gait belt, Front wheeled walker Level of Assistance: Contact guard assistance Assessment/Delivery: Assessed, Instructed Comments: Verbal cues for proper hand placement. Performed repeat [id number] from bedside chair x3 repetitions Stand to Sit Transfers # of Assistants: 1 Transfer Surface: Chair Transfer Equipment: Gait belt, Front wheeled walker Level of Assistance: Minimal assistance Assessment/Delivery: Assessed, Instructed Comments: Verbal cues to make sure she fully squared herself and the walker up with the sitting surface and reaches back for the armrest and focuses on sitting slowly. Patient performed repeat stand to sit x3 repetitions from bedside chair Gait Assessment/Training Distance (m): 9.1 m Surface: Even, Smooth/hard Device: Gait belt, Front-wheeled walker # of Assistants: 1 Level of Assistance: Contact guard assistance, Minimal assistance Quality/Pattern: Shuffling, Decreased heel strike Stability: Fair, no overt loss of balance however does have some mild gait deviation. Required intermittent assistance with stability Assessment of Gait: Patient ambulates with decreased gait speed, decreased step length, forward flexed posture, downward gaze and slightly behind front wheeled walker Cueing Provided: Verbal, Tactile Training/Intervention: Light tactile cues for stability. Verbal cues for upright posture, forward gaze, and to stand within the front wheeled walker Response: No adverse reaction Forward step-up. Performed forward step-up into 1 inch scale x 2 reps Education provided this session: Patient was educated on the role and purpose of physical therapy during her hospitalization. She was educated the importance of taking short but frequent walks throughout the day. The following coordination of care occurred today: Patient's nurse was contacted and patient's status was discussed Patient was left in bedside chair at end of session with call light in reach, all needs met and questions answered. Outcome Measures AM-[facility] Inpatient Short Form: AM-PAC Basic Mobility (V.2) How much help from another person do you currently need???If the patient hasn't done an activity recently, how much help from another person do you think he/she would needif he/she tried? 1. Turning from your back to your side while in a flat bed without using bedrails?: A Little 2. Moving from lying on your back to sitting on the side of a flat bed without using bedrails?: A Little 3. Moving to and from a bed to a chair (including a wheelchair)?: A Little 4. Standing up from a chair using your arms (e.g., wheelchair, or bedside chair)?: A Little 5. To walk in hospital room?: A Little 6. Climbing 3-5 steps with a railing?: A Lot -[facility] Basic Mobility (V.2) Raw Score: 17 -[facility] Basic Mobility (V.2) Standardized Score: 39.67 Interpretation: Clinicians answer the -[facility] Inpatient Short Form based on observed patient activity and/or clinical judgement (ie. patient can be scored without physically performing each activity) Based on scoring guidelines using the raw score value: Those going to home had an average score at or above 18 Those going to facility had an average score at or below 17 Assessment Discharge Therapy Needs - PT: Ongoing skilled physical therapy Skilled therapy can include physical therapy provided by home health, outpatient clinic, or a post-acute facility. The location of these services is determined by the patient's care team in partnership with patient/family. Level of Care Needed - PT: Assistance with transfers (Comment), Assistance with walking and moving around the home, Assistance with bed mobility, Assistance with stairs, Cognitive assistance needed, Physical assistance needed Equipment Recommended - PT: Hospital bed, Wheelchair Barriers to Discharge Home: Current functional status, Fall risk, Safety concerns Barriers to Discharge Comments: 2 stairs to enter residence. From a physical therapy perspective, the level of care above has been recommended for Ms. Colon after hospital discharge. This level of care is based on her functional abilities during today's session. This may change throughout the hospital course and will be updated as appropriate. Clinical Impression of today's session: Patient tolerated today's treatment session well. She was able to progress her functional mobility and ambulated approximately 30 m and perform to step-ups onto scale. The patient will continue to benefit from skilled physical therapy intervention to restore and maximize function, maximize safety, optimize functional mobility, teach, and educate the patient, familyand/ or caregivers, and facilitate return to prior level of function. Physical therapy will continue to progress per patient tolerance towards the above goals. Rehab potential: Ms. Colon has Good potential to achieve established physical therapy goals withinthe time frame outlined below. Progress: Slow progress, limited activity tolerance, Slow progress, cognitive deficits Functional Goals and Timeframes: PT Inpatient Goals PT Goal #1: Patient will be able to complete all bed mobility independently with no physical assistand no verbal cues necessary in order to facilitate return to PLOF. PT Goal #1 Status: Progressing PT Goal #2: Patient will be able to complete STS transfer from edge of bed to standing modified independent utilizing front wheel walker for assist, in order to allow for functional transfers at home. PT Goal #2 Status: Progressing PT Goal #3: Patient will be able to ambulate 30m modified independent utilizing front wheel walker for assist, in order to allow for functional ambulation upon DC. PT Goal #3 Status: Slowly progressing PT Goal #4: Patient will be able to safely navigate 2 stair(s) under supervision in order to allow access into/to all levels of their home prior to discharge. PT Goal #4 Status: Ongoing Plan Patient agrees with the plan of care and goals. Treatment Plan: Plan: Continue with current plan PT Frequency: PT Amount: 1 visit per day PT Frequency: 5 times per week PT Inpatient Duration : Until goals are met or hospital discharge Requires Inpatient Follow-Up: Yes PT - Next Inpatient Appointment: 04/20/23 PT Plan Comments: Continue to progress mobility, transfers, ambulation, balance and safety. Stair training when appropriate. 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 Visit Trackin Billing: Time Spent with Patient Therapeutic Interventions Therapeutic Activity (min): 21 min Time Tracking Total Timed Units (min): 21 min Total Treatment Time (min): 21 min Christiane Walsh P.T., D.P.T. NT REPRESENTATIVE * Arleen Díaz - 04/19/2023 1:59 PM CST Occupational Therapy [facility] Inpatient Treatment SUBJECTIVE Patient's Name: Darcy Colon Referring/Attending Provider: Lambert Roy M.D. Reason for Referral: Occupational Therapy Evaluation and Treatment History of Present Illness: Darcy Colon is a 82 y.o. female who was admitted to [facility] in [place] on 04/02/2023 for Hypercalcemia [E83.52] Hypokalemia [E87.6] Weakness General [R53.1] Lymphoma (HCC) [C85.90]. Precautions Other Precautions: Fall Risk, decreased functional use of right upper extremity dominant hand; generalized weakness; double vision, aspiration precautions Pain Assessment: Pain Ratin/10 on a 0-10 point scale Subjective Comments: Agreeable to therapy session. Team Communication: The patient's status was discussed and coordination of care occurred with coil winder/Caregiver Present: Patient's was present during today's session. OBJECTIVE Outcome Measures: [facility] Inpatient Short Form: Putting on and taking off regular lower body clothing?: A lot Putting on and taking off regular upper body clothing?: A Little Taking care of personal grooming such as brushing teeth?: None Bathing (including washing, rinsing, drying)?: A lot Toileting, which includes using toilet, bedpan, or urinal?: A Little Eating meals?: None Daily Activities Raw Score (max 24): 18 Daily Activities Standardized Score: 38.66 Interpretation: Based on scoring guidelines using the raw score value: Those going to home had an average score at or above 18 Those going to facility had an average score at or below 17 Clinicians answer the [facility] Inpatient Short Form based on observed patient activity and/or clinical judgement (ie. patient can be scored without physically performing each activity) Cognition: Will further assess and monitor as warranted Therapeutic Interventions: ACTIVITIES OF DAILY LIVING: TOILETING - Assist Level: Stand By Assist - Patient Location: Commode - Activity: clothing management, pericare - Therapist Delivery: facilitated - Assist/Cues: verbal for proper hand placement Patient engaged in toileting task and required standby assist while utilizing commode placed slightly outside of bathroom door. Patient engaged in clothing management and pericare and required 1 verbal cue for proper hand placement when standing to place on hand on front-wheeled walker and 1 hand on arm of commode. Patient was able to engage in pericare without the need of assistance from therapist and required therapist to facilitate toileting activities. FUNCTIONAL TRANSFERS: SIT<>STAND - Assist Level: Stand By Assist - Equipment: front wheeled walker and gait belt - Surface: Chair, Commode - Therapist Delivery: assessed Patient engaged in [id number]-[id number] functional transfers and required standby assist while utilizing a front wheeled walker and gait belt. Patient engaged in sit <> stand from bedside chair to be seated as well as to stand at edge of bedside chair. Therapist assessed for patient completion as well as for safety precautions. FUNCTIONAL MOBILITY: In-room mobility performed with supervision/stand by assistance and front wheeled walker and gait belt Patient engaged in functional ability to mimic in room mobility required supervision/standby assistance. Patient utilized front wheeled walker and gait belt and was able to successfully ambulate 6 m to commode and back to bedside chair. Education Provided: Energy Conservation: - Patient was educated on energy conservation and how to apply those techniques to activities of daily living. Instructed in energy conservation using the 4 P's. These include: Plan, Prioritize, Position, Pace. -Planning is deciding in advance what to do, when and how to do a task, and who will be completing the task. -Position is focused on the location of one's body located in an environment. Sit for activities asmuch as possible, avoid bending/overhead reaching, use good posture and slow/smooth movements, avoid fast or rushed movements. Slide objects instead of lifting, use wheeled carts to carry heavier loads, place commonly used items with an easy to reach. Patient was left in bedside chair at end of session with call light in reach, all needs met and questions answered. Assessment Discharge Therapy Needs - OT: Ongoing skilled occupational therapy Skilled therapy can include occupational therapy provided in home health, outpatient or post-acute facility. The location of these services is determined by patient's care team in partnership with patient/family. Barriers to Discharge Home: Current functional status, Fall risk, Safety concerns Level of Care Needed - OT: Assistance with toileting, Assistance with dressing, Assistance with toilet/shower transfers, Assistance with meal preparation, Physical assistance needed, Assistance with medication set up/administration, Assistance with personal financial advisor, Assistance with transportation, Assistance with showering/bathing, Assistance with housekeeping, Assistance with eating/feeding,Assistance with shopping, Cognitive assistance needed Clinical Impression: nical Impression: Currently, patient present with impairments including decreased functional strength, impaired static and dynamic standing balance, decreased safety and independence with functional mobility, diminished activity tolerance, pain that limits activity, and reduced range of motion that has limited engagement in ADLs and IADLs. Patient was seated at bedside chair upon therapist arrival as well as accompanied by her . Therapist discussed with patient some barriers that may be present if able todischarge home and patient stated that mobility is her biggest barrier at the moment. Patient stated that her has been able to assist in the past and is planning on having her family members move into her home if able to discharge here. Patient is aware that she may be discharged to a [facility] facility in order for patient to receive care related to completion of IADLs. Patient hasshown an increase in functional mobility and engagement in ADLs over past sessions and patient is aware of current deficits/challenges related to short-term memory. Patient engaged in toileting tasksand functional transfers while utilizing commode and was able to ambulate using a front-wheeled walker and gait belt while requiring standby assist. Patient would benefit from engaging in object retrieval for in-room dressing as well as IADLs management to increase independence in next session. The patient will benefit from ongoing occupational therapy services while hospitalized in order to improve engagement and independence in meaningful occupations. Plan OT Plan Comments: Plan for next session includes progress transfers/mobilty as able and object retrieval for dressing around her room in order to increase independence upon discharge. Functional Goals: OT Goal #1: Patient will demonstrate all functional transfers with stand by assist to progress towards baseline. OT Goal #1 Status: Achieved OT Goal #2: Patient will demonstrate total body dressing and toileting with minimal assistance of 1to progress towards baseline. OT Goal #2 Status: Ongoing OT Goal #3: Patient will increase functional use of right upper extremity in self feeding+ groomingwith minimal assist to increase independence and self reliance in self cares. OT Goal #3 Status: Achieved OT Goal #4: Patient will tolerate sitting unsupported at EOB for greater than 30 minutes to facilitate independent participation in self-cares (grooming, feeding, upper body dressing). OT Goal #4 Status: Progressing Progress: Improving as expected Rehab potential: Ms. Colon has good potential to achieve established occupational therapy goals within the time frame outlined below. OT Frequency: OT Amount: 1 visit per day OT Frequency: 5 times per week OT Inpatient Duration : Until goals are met or hospital discharge Requires Inpatient OT Follow-Up: Yes OT - Next Inpatient Appointment: 04/20/23 Plan: Continue with current plan Treatment interventions may include: Treatment Interventions: Self-care/home management Occupational Therapy Attestation Statement: Patient agrees with the plan of care and goals. Billing: Time Spent with Patient Therapeutic Interventions Home Management Training (min): 19 min Time Tracking Total Timed Units (min): 19 min Total Treatment Time (min): 19 min Arleen Herojohn OTS NT REPRESENTATIVE Associated attestation - Eden Rodgers Ed.D., O.T. - 04/19/2023 2:34 PM CLIENT REPRESENTATIVE This therapist has reviewed all documentation and supervised today???s session. The therapist agrees with the plan developed in collaboration with the patient. * Priyanka Murphy M.D. - 04/19/2023 6:59 AM CST Images from the original note were not included. HEMATOLOGY 3 PROGRESS NOTE SUBJECTIVE Darcy Colon is an 82-year-old female with medical comorbidities including mild cognitive impairment, parkinsonism, HTN, breast cancer in 2017 s/p lumpectomy and radiation, nonmelanoma skin cancer,osteopenia, B12 deficiency on supplementation, and GERD who was admitted on 04/02 for generalized weakness, confusion, and poor oral intake. 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 INTERVAL EVENTS: - Overall, looks and feels great - Since yesterday, removed NG tube (clogged), tolerated PO 1.5 L regular diet (including 2 nutrition shakes) - This morning, resting comfortably without complaints, regular BM and UOP - Otherwise, labs stable except downtrending neutrophils awaiting rituximab tomorrow - Dispo to [facility] after infusion pending bed availability OBJECTIVE VITAL SIGNS Temperature: [36.2 ??C-36.7 ??C] 36.6 ??C Resp Rate: [16] 16 Blood Pressure: (111-145)/(68-79) 139/70 SpO2: [95 %-98 %] 97 % Weight: [52.4 kg] 52.4 kg BMI (Calculated): [23.3 kg/m??] 23.3 kg/m?? Pulse Rate: [71-88] 80 PHYSICAL EXAM General: Alert, chronically ill-appearing female, sitting in bed comfortably, no acute distress Skin: Pale, warm and dry, no rashes or lesions appreciated on exposed skin Eyes: Pupils equal and reactive to light, extraocular movements intact, no scleral icterus ENT: Slightly dry lips with otherwise moist mucous membranes. Lungs: Normal work of breathing on room air, diminished breath sounds at bilateral bases but otherwise clear to auscultation. Heart: Regular rate and rhythm, occasional PVCs, no murmurs, rubs, or gallops appreciated. Abdomen: Soft, nondistended, nontender throughout the abdomen. Splenomegaly. Neuro: Generalized weakness with mild quadriparesis and generalized hyperreflexia. Bradykinesia without overt rigidity. Right foot drop. Mental: Alert and oriented to self, place, situation, month, and year. Engaged in conversation. Unable to say the months of the year backwards. DIAGNOSTICS Labs: Hb 8.4, MCV 97.7 plt 64, WBC 3.4 -Na 142, K 3.5, BUN 24, Cr 1.05, calcium 9.3, iCal 5.21, phos 2.7, uric acid 4, cystatin C 1.91 with eGFR 28 ASSESSMENT / PLAN Ms. Colon is hospitalized on Darcy Darlene is an 82-year-old female with medical comorbidities including mild cognitive impairment, parkinsonism, HTN, breast cancer in 2017 s/p lumpectomy and radiation, nonmelanoma skin cancer, osteopenia, B12 deficiency on supplementation, and GERD who was admitted on 04/02 for generalized weakness, confusion, and poor oral intake. 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 She is now day 4 of cycle 1 of rituximab, which she received on 04/13 without complications. She presented with significant hypercalcemia, which has improved with fluid resuscitation and discontinuation of calcium, vitamin-D, and hydrochlorothiazide. Otherworkup for hypercalcemia has remained negative. Hypercalcemia to this degree is not typically associated with splenic marginal zone lymphoma, however, PET-CT does not suggest that there evidence of diffuse large B-cell transformation or another available site biopsy. If hypercalcemia recurs, additional tissue diagnosis may be indicated. She will continue on rituximab with next dose planned on 04/20. Big picture horta, the patient remains severely functionally debilitated with inability to perform self transfers and significant generalized weakness leading to dysphagia. Speech therapy evaluation on 04/13 did not reveal overt oropharyngeal dysphagia and more so just revealed generalized weakness limiting p.o. intake, which has been supplemented with tube feeds. The patient has been appearing more alert daily, and is interested in trying a regular diet texture in order to better supplement p.o.nutrition. She will continue to work with PT, OT, and speech therapy. We have encouraged the patient to prioritize eating by mouth in order to avoid long-term enteral feeding if able. The patient will need a [facility] facility or [facility] acute care facility in between infusions of rituximab. However, plan will be to remain in the hospital until next infusion on 04/20. Transfuse to keep hemoglobin > 7 and platelets > 10. Patient does not require premed prior toRBCs and platelets. PLAN FOR TODAY: [ ] Encourage PO, goal 3 nutrition shakes per day [ ] Rituximab tomorrow, then dispo to [facility] pending bed availability ( vs Sunday) #Lymphoplasmacytic lymphoproliferative disorder -splenic marginal zone lymphoma, stage IV versus Waldenstrom's macroglobulinemia-cycle 1, day 3 of weekly rituximab # Macrocytic anemia # Thrombocytopenia # History of breast cancer Workup: -PET-CT: Moderately FDG avid splenomegaly and diffuse bone marrow activities suspicious for lymphoproliferative process -Bone marrow biopsy: Involved by a CD5 negative, CD10 negative B-cell lymphoproliferative disorder,kappa light chain restricted, 70% hypercellularity -MRI brain w/o PATIENT REGISTRATION REP involvement -Folate and B12 normal -Fat pad biopsy negative for amyloid -Beta-2 microglobulin: 12.10 Plan: -Anemia and thrombocytopenia likely 2/2 bone marrow suppression -Cycle 1 weekly rituximab (D1,8,15,22); day 4, next dose 04/20 -FISH and next generation sequencing pending -Continue allopurinol x 10 days (04/12-04/21) # Hypercalcemia-resolved # Hypokalemia # FRR-[id number]-[id number] likely a component of CKD based on cystatin C Workup: -1,25 hydroxy vitamin D 66 -PTH <6 -PTHrP negative -S/p total of 15 L of fluid, lasix 20 mg IV x2, Zometa, and calcitonin x2 -Ca 9.3, iCal 5.21 - Creatinine 1.05, cystatin C1 0.9 with EGFR 28 -UA negative Plan: -Encourage oral intake -hold off on additional fluids given euvolemia and hypercalcemia resolved -Trend cystatin C # Toxic metabolic encephalopathy-improving # Delirium # Mild cognitive impairment # Parkinsonism Workup: -MRI brain and spine negative for lymphoma involvement -Amyloid negative -B6 and thiamine deficiency -EMG and nerve conduction studies negative for large fiber neuropathy or polyradiculopathy -Autoimmune paraneoplastic eval with very mildly elevated GAD65 Ab Plan: - KB previously evaluated: - AMS possibly 2/2 underlying neurodegenerative disorder which has been compounded by nutritional deficiencies - Requires OP follow up after discharge # Malnutrition Severe Protein-Calorie (HCC) # Vitamin B6 Deficiency # Thiamine deficiency # 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 # Dysphagia -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, has overall labial weakness without any overt oropharyngeal dysphagia -Advance to regular diet -NG in place for supplemental feeds given overall generalized weakness -Nutren 1.5 continuous, with goal rate 40 mL/hr -free water flushes 30 mL 4 times daily -Wean tube feeds as able, encourage PO intake - Completed course of IV thiamine; continue supplement via gastric tube - Continue multivitamin - PT/OT/Speech consulted # Hypertension Essential Primary - Hold home HCTZ given hypercalcemia, monitor BP # Gastroesophageal Reflux Disease Without Esophagitis - Nexium daily through G tube # Generalized anxiety disorder - Continue bupropion and escitalopram # Glaucoma - Continue brimonidine, dorzolamide-timolol, and ketorolac ophthalmic solution # Elevated Alkaline Phosphatase - ALK stably elevated - Monitor LFTs intermittently Current Activity/Mobility: BMAT Level 2 (Able to extend knee but cannot stand; needs lift equipment) Fall Injury Prevention: I have discussed My Plan for Safe Activity with the patient. Diet: dysphagia and tube feeds diet Tubes/lines: Lines, Drains, and Airways Drain Duration External Urinary Catheter Female 13d 11h Peripheral IV Duration Peripheral IV 04/07/23 20 G Anterior;Lower;Right Forearm 11d 17h VTE prophylaxis: heparin Disposition: [facility] Facility with expected discharge date Surrogate Decision Maker: Spouse, Gerhard Stable to discharge criteria (not met): Functional status Severe Malnutrition The patient meets the ASPEN Criteria of malnutrition based on: Energy Intake: Less than or equal to 75% of estimated energy requirement for greater than or equal to 1 month Interpretation of Weight Loss: greater than 5% 1 month Body Fat: Mild Loss Muscle Mass: Mild Loss This is in the context of Chronic Illness. Malnutrition Present Upon Admission: Yes Agree with Registered Dietitian's assessment and treatment plan: Interventions: Medical food supplement, Increase nutrient intake with small, frequent meals and/or snacks, Assess oral intake with calorie count Plan discussed with the Hematology 3 Support Associate, Lambert Kaiser M.D., who was present during thekey portions of the evaluation today. [place] 3 [place] [phone] with any questions or concerns. Priyanka Murphy M.D. PGY-1 Preliminary Medicine NT REPRESENTATIVE Associated attestation - Lambert Roy M.D. - 04/19/2023 5:16 PM CLIENT REPRESENTATIVE I saw and evaluated the patient, participating in the jorge portions of the service. I reviewed the resident/fellow???s note. I agree with the resident/fellow???s findings and plan. * Jessica Darnell M.S., RDN, LD - 04/18/2023 4:22 PM CST Nutrition Care Plan Follow Up Clinical Nutrition continues to follow patient for tube feeding recommendations/management ASSESSMENT Completed visit with patient, , and care team today. Current Nutrition (since admission): Patient's NGT appeared to have come out yesterday when patientsneezed and was replaced an hour later. It was then bridled. Patient noted that it was very unpleasant. However, tube was clogged again early this morning, so patient did not receive feeds today. Intake over the day was much improved. Extensive discussion with patient regarding nutrition support options for discharge. She notes thatprior to admission, her main barriers to eating were weakness related to self-feeding ability, nausea due to odor of food, dysgeusia/ageusia, and loss of appetite. She now reports that the taste of food has returned, so she finds eating more enjoyable. Additionally, the weakness for self-feeding has improved significantly, so this is no longer a barrier for thetime being. RDN related that to her getting adequate nutrition via tube feedings during admission. We discussed the indication for PEG tube feedings, methods of administration, placement of tube (and where that can be done), and how she can best use it to support her nutrition. Patient and husbandasked good questions. Patient is still open to a PEG tube if oral nutrition does not go well. Notedthat if she can drink the same amount of Ensure that we would put through the tube, a tube is likely not necessary at this time. Patient is agreeable to that and would like to trial it tomorrow. Plan: Remove clogged NGT today. Patient to drink x3 Ensure + additional milkshakes and smoothies, and eat 3 meals for trial of oral diet alone tomorrow, with strict calorie counts to assess nutritional adequacy. If that goes well and feels sustainable to patient, OK to discharge on oral diet alone.If not, will return to PEG tube conversation for potential placement. Patient's estimated calorie and protein needs have been communicated to her. RDN encouraged her to meet at least 75% of her needs daily (1012 kcal, 40 g protein). Results for the past 120 hrs: 24 Hr Total Calorie Intake 04/17/23 2359 684 04/16/23 2359 255 04/15/23 2359 121 04/14/23 2300 75 04/13/23 2300 0 Results for the past 120 hrs: 24 Hr Total Protein Intake 04/17/23 2359 31 04/16/23 2359 9 04/15/23 2359 2 04/14/23 2300 1 04/13/23 2300 0 Calorie Count Summary: Past 5 day average was 227 calories/day and 8 grams protein/day. Tube Information: GI Tubes (Adults) Nasogastric 10 Fr Nare;Right (Active) Placement Date/Time: 04/17/23 1030 GI Tube Type: Nasogastric GI Tube Size: 10 Fr Tube Location: Nare;Right Current nutrition orders: Current Diet Adult Diet Regular starting at 04/18 1626 Tube feeding with oral diet -Nutren 1.5 (RTH); Feeding route: Nasogastric; Feed options: Continuous; Starting rate (ml/hr): 20 mL/hr; Rate advancement (ml/hrs): 10 mL q 8 hours; Continuous goal rate (ml/hr): 40 mL/hr; Daily goal volume (mL): 960 m... starting at 04/13 1200 GI Function: Last BM Date: 04/18/23, Cache Stool Chart: Type 5: Soft blobs with clear-cut edges, Passing Flatus: Yes. Medications: allopurinoL bisacodyL brimonidine buPROPion dorzolamide- timoloL escitalopram heparin (porcine) ketorolac [START ON 04/19/2023] lansoprazole polyethylene glycol pyridoxine (vitamin B6) sennosides- docusate sodium thiamine Pertinent Labs: Last 3 results Lab Units 04/18/23 0047 04/17/23 0038 04/16/23 0614 04/15/232001 SODIUM mmol/L 139 140 142 141 POTASSIUM mmol/L 3.7 3.4* 3.5* 3.8 CHLORIDE mmol/L 106 105 107 106 BUN mg/dL * 24* 26* CREATININE mg/dL 0.89 0.88 1.05* 1.14* PHOSPHORUS INORGANIC mg/dL -- 2.8 2.7 2.5 CALCIUM mg/dL 8.8 9.1 9.3 9.5 Latest Reference Range & Units 04/02/23 16:14 04/04/23 08:27 04/04/23 08:28 04/05/23 15:41 04/05/23 15:42 04/05/23 15:43 04/05/23 15:44 25-Hydroxy D2 ng/mL <4.0 25-Hydroxy D3 ng/mL 69 25-Hydroxy D Total ng/mL 69 Folate, S >=4.0 mcg/L 8.9 9.0 A-Tocopherol, Vitamin E 5.5 - 17.0 mg/L 11.9 Pyridoxic Acid (PA), P 3 - 30 mcg/L <2 (L) Vitamin B12 Assay, S 180 - 914 ng/L 1300 (H) Nicotinic Acid (Niacin) Cutoff:<5.0 ng/mL <5.0 Nicotinamide 5.0 - 48.0 ng/mL 11.3 Nicotinuric Acid Cutoff:<5.0 ng/mL <5.0 Thiamine (Vitamin B1), WB 70 - 180 nmol/L 56 (L) Pyridoxal 5-Phosphate (PLP), P 5 - 50 mcg/L <2 (L) Ascorbic Acid, P 0.4 - 2.0 mg/dL 0.6 Riboflavin (Vitamin B2), P 1 - 19 mcg/L 30 (H) (L): Data is abnormally low (H): Data is abnormally high Weight since admission: Height: 149.9 cm Admission Weight: 54 kg (04/02/2023) Current Weight: 52.4 kg BMI (Calculated): 23.3 kg/m?? Weight change since admission: -1.6 kg Net IO Since Admission: 5,804 mL [04/18/23 1631] Estimated Needs: Total Calorie Needs: 9337-3067 calories/day Method to Estimate Energy Needs: kcal/kg (25-30 kcal/kg) Weight Used for Equation Calculations: 54 kg Total Protein Needs: 54 - 65 grams/day Method to Estimate Protein Needs (g/kg): 1 - 1.2 gm/kg Weight Used to Calculate Protein Needs (Kg): 54 kg Total Fluid Needs: 1350 - 1620 grams/day Method to Estimate Fluid Needs (mL/kg): 25-30 mL/kg Weight Used to Calculate Fluid Needs (Kg): 54 kg Nutrition Diagnosis: Inadequate protein-energy intake related to decreased appetite/ NV as evidenced by Family reported intake and >5% wt loss in 1 m Nutrition Diagnosis Reassessment: Ongoing Malnutrition (undernutrition) related to decreased appetite, disease process as evidenced by decreased oral intake and weight loss of 5% over the last 1 month. PLAN Nutrition Intervention: Medical food supplement, Increase nutrient intake with small, frequent meals and/or snacks, Assess oral intake with calorie count Nutrition parameter to monitor: Meals/Supplement Intake, Weight Status, Nausea/Vomiting/Diarrhea, Wound Healing ASPEN Criteria Malnutrition Status: Severe Malnutrition Recommendations: Strict Calorie Count! Trial of Lemon Cream shake. Consume 100% of 3 oral nutrition supplements Ensure +HP Consume 100% of 1-2 milkshakes Consume >75% of 3-4 meals/snacks daily. Will monitor for need for long-term enteral nutrition support. Clinical Nutrition will continue to follow. For questions about patient's nutritional care please contact pager [phone] on weekdays 07:30-16:00 or [phone] on weekends/holidays. NT REPRESENTATIVE * Christiane Walsh, P.T., D.P.T. - 04/18/2023 3:42 PM CST 04/18/23 1542 Reason Therapy Missed Reason Therapy Missed Patient declined therapy Attempted to see the patient 2 times this date. On the 1st attempt the patient was on the phone. Onthe 2nd attempt the patient politely declined reporting she would just mobilize with nursing and would like to rest of bed. PT to check back tomorrow NT REPRESENTATIVE * Arlen Avery L.I.C.S.W., M.S.W. - 04/18/2023 3:40 PM CST SUBJECTIVE Social Work continues to follow for coordination of plans for dismissal. I met with the patient andher spouse today to share that tomorrow should the team feel that she is medically stable and [facility] in [place] has appropriate staffing they could accept the patient and provide her Rituxan infusion on Sunday. If they can't accept tomorrow, they could also consider her coming on Sunday following her infusion. Should [place] not be an option this week, and she gets her NG removed, she could dismiss to [facility] in [place] on Sunday. Social Work will follow up again tomorrow. OBJECTIVE The patient is an 82-year-old female with medical comorbidities including mild cognitive impairment, parkinsonism, HTN, breast cancer in 2017 s/p lumpectomy and radiation, nonmelanoma skin cancer, osteopenia, B12 deficiency on supplementation, and GERD who was admitted on 04/02 for generalized weakness, confusion, and poor oral intake. 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 ASSESSMENT / PLAN ASSESSMENT The patient was alert, oriented and pleasant. The patient's spouse was present and supportive at bedside. The patient appears to be coping/adjusting appropriately. PLAN Social Work will continue to follow and assist in finalizing plans for dismissal. Deepthi Alanis, M.S.W. 04/18/23 NT REPRESENTATIVE * Milana Zamora M.S., CCC-AUTOMOTIVE ELECTRICAL HELPER - 04/18/2023 11:37 AM CST Briefly followed up with Ms. Colon regarding diet tolerance. She reports no difficulty with swallowing. She denies symptoms of dysphagia (e.g. coughing, choking, throat clearing, or wet vocal quality) during meals. At this time, Ms. Colon is tolerating the least restrictive diet of regular solidsand thin liquids. Speech Pathology will complete dysphagia order as no further treatment is needed. AUTOMOTIVE ELECTRICAL HELPER to continue to follow for communication/cognition needs as identified on initial evaluation 04/13/2023. Milana Zamora M.S., CCC-AUTOMOTIVE ELECTRICAL HELPER 04/18/2023 Pager number: [phone] on weekdays or [phone] on weekends NT REPRESENTATIVE * Arleen Díaz - 04/18/2023 11:26 AM CST Occupational Therapy [facility] Inpatient Treatment SUBJECTIVE Patient's Name: Darcy Colon Referring/Attending Provider: Lambert Roy M.D. Reason for Referral: Occupational Therapy Evaluation and Treatment History of Present Illness: Darcy Colon is a 82 y.o. female who was admitted to [facility] in [place] on 04/02/2023 for Hypercalcemia [E83.52] Hypokalemia [E87.6] Weakness General [R53.1] Lymphoma (HCC) [C85.90]. Precautions Other Precautions: Fall Risk, decreased functional use of right upper extremity dominant hand; generalized weakness; double vision, aspiration precautions Pain Assessment: Pain Ratin/10 on a 0-10 point scale Subjective Comments: Agreeable to therapy session. Team Communication: The patient's status was discussed and coordination of care occurred with coil winder/Caregiver Present: Patient's was present during session. OBJECTIVE Vital Signs: Vitals taken during session: Pulse rate: 89 bpm, Blood pressure: 145/68 mmHg, MAP: 86, and O2 sats:95% Patient's vitals were taken in supine position in bed pre-activity. Outcome Measures: [facility] Inpatient Short Form: Putting on and taking off regular lower body clothing?: A lot Putting on and taking off regular upper body clothing?: A Little Taking care of personal grooming such as brushing teeth?: A Little Bathing (including washing, rinsing, drying)?: A lot Toileting, which includes using toilet, bedpan, or urinal?: A Little Eating meals?: A Little Daily Activities Raw Score (max 24): 16 Daily Activities Standardized Score: 35.96 Interpretation: Based on scoring guidelines using the raw score value: Those going to home had an average score at or above 18 Those going to facility had an average score at or below 17 Clinicians answer the [facility] Inpatient Short Form based on observed patient activity and/or clinical judgement (ie. patient can be scored without physically performing each activity) Cognition: Will further assess and monitor as warranted Therapeutic Interventions: ACTIVITIES OF DAILY LIVING: GROOMING - Assist Level: Stand By Assist - Patient Location: Standing at sink - Activity: Combing hair, Washing hands - Therapist Delivery: facilitated Patient engaged in grooming tasks while standing at sink and required standby assist while also utilizing a front wheeled walker and gait belt. Patient engaged in combing her hair and washing her hands and required therapist to facilitate ADLs for completion as well as safety. TOILETING - Assist Level: Moderate Assist - Patient Location: Commode - Activity: clothing management, pericare - Therapist Delivery: facilitated - Assist/Cues: verbal for proper hand placement Patient engaged task while seated at commode in bathroom and required the use of front-wheeled walker and gait belt. Patient was able to successfully be seated at commode and engaged in clothing management and pericare. Patient required moderate assist during pericare throughout task and required 1verbal cue for proper hand placement for 1 hand front wheeled walker and one hand on commode arm. BED MOBILITY: SUPINE to SIT - Assist Level: Stand By Assist - Device: use of bed rail - Therapist Delivery: assessed Patient engaged in supine to sit bed mobility required standby assist while patient used bed rails.Therapist assessed for patient safety as well as completion. Patient has been able to complete bed mobility with more ease compared to past sessions. FUNCTIONAL TRANSFERS: SIT<>STAND - Assist Level: Stand By Assist - Equipment: front wheeled walker and gait belt - Surface: Bed, Chair - Therapist Delivery: facilitated - Assist/Cues: verbal for proper hand placement Patient engaged in iit-cu-dtihs functional transfer required standby assist while utilizing a frontwheeled walker and gait belt to be seated at bedside chair in to stand from edge of bed. Therapist facilitated functional transfer and patient is continuing to require 1 verbal cue for proper hand placement when standing and sitting using 1 hand on front wheeled walker and 1 hand on bed. FUNCTIONAL MOBILITY: - Assist Level: Stand By Assist - Distance/Time: 6 meters / 3 minutes - Device: front wheeled walker and gait belt - Therapist Delivery: facilitated - Assist/Cues: verbal for upright posture Patient engaged functional mobility and required standby assist while utilizing a front wheeled walker and gait belt. Patient was able to utilize front wheeled walker and gait belt and ambulate 6 m in 6 minutes from in room bathroom in to bedside chair. Patient required 1 verbal cue to remain in upright posture and therapist facilitated functional mobility for completion. Patient was left in bedside chair at end of session with call light in reach, all needs met and questions answered. Assessment Discharge Therapy Needs - OT: Ongoing skilled occupational therapy Skilled therapy can include occupational therapy provided in home health, outpatient or post-acute facility. The location of these services is determined by patient's care team in partnership with patient/family. Barriers to Discharge Home: Current functional status, Fall risk, Safety concerns Level of Care Needed - OT: Assistance with toileting, Assistance with dressing, Assistance with toilet/shower transfers, Assistance with meal preparation, Physical assistance needed, Assistance with medication set up/administration, Assistance with personal financial advisor, Assistance with transportation, Assistance with showering/bathing, Assistance with housekeeping, Assistance with eating/feeding,Assistance with shopping, Cognitive assistance needed Clinical Impression: Currently, patient present with impairments including decreased functional strength, impaired static and dynamic standing balance, decreased safety and independence with functional mobility, diminished activity tolerance, pain that limits activity, and reduced range of motion that has limited engagement in ADLs and IADLs. Patient was supine in bed upon therapist arrival and patient stated that she has not gotten out of bed for the morning yet. Patient agreed to engage in ADLs in bathroom as well as engaged in functional mobility. Patient was able to successfully complete toileting tasks on commode in bathroom as well as wash her hands and combing her hair with standby assistance. Patient required moderate assist with pericare during toileting tasks. Patient has been able to engage in functional mobility as well as bed mobility with more ease compared to past sessions. Patient was able to stand for 8+ minutes during ADLs in bathroom. Due to past cognitive assessments patient would benefit from additional observation and assessments to monitor cognition during inpatient stay. Patient stated that she may be going to a [facility] facility soon if a bed is open for her. Patient stated that she would like to go home if she is able to and stated that her is able to help her with any challenges or concerns. Patient currently would require assistance with all transfers, meal preparation, and setting up/laying out her clothes in preparation for activities of daily living.Patient will engage in additional grooming tasks at sink to increase standing tolerance as well as lower body dressing while seated edge of bed to increase independence in next session. The patient will benefit from ongoing occupational therapy services while hospitalized in order to improve engagement and independence in meaningful occupations. Plan OT Plan Comments: Plan for next session includes increase functional use of right upper extremity in self feeding + oral cares, seated grooming, trunk/core strengthening exercises at EOB, bed mobility, progress transfers/mobilty as able, and caregiver training as needed Functional Goals: OT Goal #1: Patient will demonstrate all functional transfers with stand by assist to progress towards baseline. OT Goal #1 Status: Progressing OT Goal #2: Patient will demonstrate total body dressing and toileting with minimal assistance of 1to progress towards baseline. OT Goal #2 Status: Ongoing OT Goal #3: Patient will increase functional use of right upper extremity in self feeding+ groomingwith minimal assist to increase independence and self reliance in self cares. OT Goal #3 Status: Achieved Progress: Improving as expected Rehab potential: Ms. Colon has good potential to achieve established occupational therapy goals within the time frame outlined below. OT Frequency: OT Amount: 1 visit per day OT Frequency: 5 times per week OT Inpatient Duration : Until goals are met or hospital discharge Requires Inpatient OT Follow-Up: Yes OT - Next Inpatient Appointment: 04/19/23 Plan: Continue with current plan Treatment interventions may include: Treatment Interventions: Self-care/home management Occupational Therapy Attestation Statement: Patient agrees with the plan of care and goals. Billing: Time Spent with Patient Therapeutic Interventions Home Management Training (min): 32 min Time Tracking Total Timed Units (min): 32 min Total Treatment Time (min): 32 min Arleen Díaz OTS NT REPRESENTATIVE Associated attestation - Eden Rodgers Ed.D., O.T. - 04/18/2023 4:01 PM CLIENT REPRESENTATIVE This therapist has reviewed all documentation and supervised today???s session. The therapist agrees with the plan developed in collaboration with the patient. * Priyanka Murphy M.D. - 04/18/2023 9:15 AM CST Images from the original note were not included. HEMATOLOGY 3 SERVICE PROGRESS NOTE No care meat team lead to display SUBJECTIVE Darcy Colon is an 82-year-old female with medical comorbidities including mild cognitive impairment, parkinsonism, HTN, breast cancer in 2017 s/p lumpectomy and radiation, nonmelanoma skin cancer,osteopenia, B12 deficiency on supplementation, and GERD who was admitted on 04/02 for generalized weakness, confusion, and poor oral intake. 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 INTERVAL EVENTS: - Overnight, NG tube clogged with medications, tolerating some PO (500 charted) without issues - This morning, resting comfortably without complaints - Per SW/CM, multiple facility acceptances in [facility] with patient preference being [place] (vs [facility]) - Remaining barriers include rituximab infusion Thursday 04/20 and NGT removal with regular diet OBJECTIVE VITAL SIGNS Temperature: [36.1 ??C-36.9 ??C] 36.9 ??C Resp Rate: [16-18] 16 Blood Pressure: (112-134)/(57-74) 129/65 SpO2: [96 %-97 %] 96 % Weight: [53.9 kg] 53.9 kg BMI (Calculated): [24 kg/m??] 24 kg/m?? Pulse Rate: [76-82] 82 PHYSICAL EXAM General: Alert, chronically ill-appearing female, sitting in bed comfortably, no acute distress Skin: Pale, warm and dry, no rashes or lesions appreciated on exposed skin Eyes: Pupils equal and reactive to light, extraocular movements intact, no scleral icterus ENT: Slightly dry lips with otherwise moist mucous membranes. Lungs: Normal work of breathing on room air, diminished breath sounds at bilateral bases but otherwise clear to auscultation. Heart: Regular rate and rhythm, occasional PVCs, no murmurs, rubs, or gallops appreciated. Abdomen: Soft, nondistended, nontender throughout the abdomen. Splenomegaly. Neuro: Generalized weakness with mild quadriparesis and generalized hyperreflexia. Bradykinesia without overt rigidity. Right foot drop. Mental: Alert and oriented to self, place, situation, month, and year. Engaged in conversation. Unable to say the months of the year backwards. DIAGNOSTICS Labs: Hb 8.4, MCV 97.7 plt 64, WBC 3.4 -Na 142, K 3.5, BUN 24, Cr 1.05, calcium 9.3, iCal 5.21, phos 2.7, uric acid 4, cystatin C 1.91 with eGFR 28 ASSESSMENT / PLAN Ms. Colon is hospitalized on Darcy Darlene is an 82-year-old female with medical comorbidities including mild cognitive impairment, parkinsonism, HTN, breast cancer in 2017 s/p lumpectomy and radiation, nonmelanoma skin cancer, osteopenia, B12 deficiency on supplementation, and GERD who was admitted on 04/02 for generalized weakness, confusion, and poor oral intake. 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 She is now day 4 of cycle 1 of rituximab, which she received on 04/13 without complications. She presented with significant hypercalcemia, which has improved with fluid resuscitation and discontinuation of calcium, vitamin-D, and hydrochlorothiazide. Otherworkup for hypercalcemia has remained negative. Hypercalcemia to this degree is not typically associated with splenic marginal zone lymphoma, however, PET-CT does not suggest that there evidence of diffuse large B-cell transformation or another available site biopsy. If hypercalcemia recurs, additional tissue diagnosis may be indicated. She will continue on rituximab with next dose planned on 04/20. Big picture horta, the patient remains severely functionally debilitated with inability to perform self transfers and significant generalized weakness leading to dysphagia. Speech therapy evaluation on 04/13 did not reveal overt oropharyngeal dysphagia and more so just revealed generalized weakness limiting p.o. intake, which has been supplemented with tube feeds. The patient has been appearing more alert daily, and is interested in trying a regular diet texture in order to better supplement p.o.nutrition. She will continue to work with PT, OT, and speech therapy. We have encouraged the patient to prioritize eating by mouth in order to avoid long-term enteral feeding if able. The patient will need a [facility] facility or [facility] facility in between infusions of rituximab. However, plan will be to remain in the hospital until next infusion on 04/20. Transfuse to keep hemoglobin > 7 and platelets > 10. Patient does not require premed prior toRBCs and platelets. 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-cycle 1, day 3 of weekly rituximab # Macrocytic anemia # Thrombocytopenia # History of breast cancer Workup: -PET-CT: Moderately FDG avid splenomegaly and diffuse bone marrow activities suspicious for lymphoproliferative process -Bone marrow biopsy: Involved by a CD5 negative, CD10 negative B-cell lymphoproliferative disorder,kappa light chain restricted, 70% hypercellularity -MRI brain w/o PATIENT REGISTRATION REP involvement -Folate and B12 normal -Fat pad biopsy negative for amyloid -Beta-2 microglobulin: 12.10 Plan: -Anemia and thrombocytopenia likely 2/2 bone marrow suppression -Cycle 1 weekly rituximab (D1,8,15,22); day 4, next dose 04/20 -FISH and next generation sequencing pending -Continue allopurinol x 10 days (04/12-04/21) # Hypercalcemia-resolved # Hypokalemia # [id number] likely a component of CKD based on cystatin C Workup: -1,25 hydroxy vitamin D 66 -PTH <6 -PTHrP negative -S/p total of 15 L of fluid, lasix 20 mg IV x2, Zometa, and calcitonin x2 -Ca 9.3, iCal 5.21 - Creatinine 1.05, cystatin C1 0.9 with EGFR 28 -UA negative Plan: -Encourage oral intake -hold off on additional fluids given euvolemia and hypercalcemia resolved -Trend cystatin C # Toxic metabolic encephalopathy-improving # Delirium # Mild cognitive impairment # Parkinsonism Workup: -MRI brain and spine negative for lymphoma involvement -Amyloid negative -B6 and thiamine deficiency -EMG and nerve conduction studies negative for large fiber neuropathy or polyradiculopathy -Autoimmune paraneoplastic eval with very mildly elevated GAD65 Ab Plan: - KB previously evaluated: - AMS possibly 2/2 underlying neurodegenerative disorder which has been compounded by nutritional deficiencies - Requires OP follow up after discharge # Malnutrition Severe Protein-Calorie (HCC) # Vitamin B6 Deficiency # Thiamine deficiency # 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 # Dysphagia -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, has overall labial weakness without any overt oropharyngeal dysphagia -Advance to regular diet -NG in place for supplemental feeds given overall generalized weakness -Nutren 1.5 continuous, with goal rate 40 mL/hr -free water flushes 30 mL 4 times daily -Wean tube feeds as able, encourage PO intake - Completed course of IV thiamine; continue supplement via gastric tube - Continue multivitamin - PT/OT/Speech consulted # Hypertension Essential Primary - Hold home HCTZ given hypercalcemia, monitor BP # Gastroesophageal Reflux Disease Without Esophagitis - Nexium daily through G tube # Generalized anxiety disorder - Continue bupropion and escitalopram # Glaucoma - Continue brimonidine, dorzolamide-timolol, and ketorolac ophthalmic solution # Elevated Alkaline Phosphatase - ALK stably elevated - Monitor LFTs intermittently Current Activity/Mobility: BMAT Level 2 (Able to extend knee but cannot stand; needs lift equipment) Fall Injury Prevention: I have discussed My Plan for Safe Activity with the patient. Diet: dysphagia and tube feeds diet Tubes/lines: Lines, Drains, and Airways Drain Duration GI Tubes (Adults) Nasogastric 10 Fr Nare;Right 22h External Urinary Catheter Female 12d 13h Peripheral IV Duration Peripheral IV 04/07/23 20 G Anterior;Lower;Right Forearm 10d 19h VTE prophylaxis: heparin Disposition: [facility] Facility with expected discharge date Surrogate Decision Maker: Spouse, Gerhard Stable to discharge criteria (not met): Functional status Severe Malnutrition The patient meets the ASPEN Criteria of malnutrition based on: Energy Intake: Less than or equal to 75% of estimated energy requirement for greater than or equal to 1 month Interpretation of Weight Loss: greater than 5% 1 month Body Fat: Mild Loss Muscle Mass: Mild Loss This is in the context of Chronic Illness. Malnutrition Present Upon Admission: Yes Agree with Registered Dietitian's assessment and treatment plan: Interventions: Medical food supplement, Increase nutrient intake with small, frequent meals and/or snacks, Assess oral intake with calorie count Plan discussed with the Hematology 3 Support Associate, Lambert Kaiser M.D., who was present during thekey portions of the evaluation today. [place]emat[place] 3 [place] [phone] with any questions or concerns. Priyanka Murphy M.D. PGY-1 Preliminary Medicine NT REPRESENTATIVE Associated attestation - Lambert Roy M.D. - 04/18/2023 2:36 PM CLIENT REPRESENTATIVE I saw and evaluated the patient, participating in the jorge portions of the service. I reviewed the resident/fellow???s note. I agree with the resident/fellow???s findings and plan. * Kavita James P.T.A. - 04/17/2023 3:35 PM CST Physical Therapy Inpatient Treatment Note SUBJECTIVE Patient's Name: Darcy Colon Referring/Attending: Lambert Roy M.D. Medical Diagnosis: Hypercalcemia [E83.52] Hypokalemia [E87.6] Weakness General [R53.1] Lymphoma (HCC) [C85.90] Reason for Referral: PT Evaluate and Treat PT Evaluate and Treat - General Acute Onset Date: 04/02/23 Payor: MEDICARE / Plan: MEDICARE A AND B / Product Type: Medicare / History of Present Illness: Ms. Colon is hospitalized on [facility] Medicine 2 ([facility]) for evaluation and management of progressive weakness and confusion. Medical comorbidities include history of mild cognitive impairment, breast cancer in remission, non-melanoma skin cancer, anxiety, depression, osteopenia, and GERD. Please see electronic medical record for full past medical history. Family/Caregiver Present: No Patient/Caregiver Goals: no goals stated Patient Comments: Darcy was greeted supine in bed. Patient had recently been up but with some encouragement she agreed to get up to ambulate around the room. Precautions Other Precautions: Fall Risk, decreased functional use of right upper extremity dominant hand; generalized weakness; double vision, aspiration precautions OBJECTIVE Treatment consisted of: Bed Mobility - Supine to Sit # of Assistants: 1 Level of Assistance: Minimal assistance Device: Head of bed elevated Cuing: Verbal, Tactile Bed Mobility - Sit to Supine # of Assistants: 1 Level of Assistance: Minimal assistance Device: Head of bed elevated Cuing: Verbal, Tactile Comments: Patient required assist with bilateral lower extremities Sit to Stand Transfers # of Assistants: 1 Transfer Surface: Bed Transfer Equipment: Gait belt, Front wheeled walker Level of Assistance: Contact guard assistance Assessment/Delivery: Assessed, Instructed Stand to Sit Transfers # of Assistants: 1 Transfer Surface: Bed Transfer Equipment: Gait belt, Front wheeled walker Level of Assistance: Minimal assistance Assessment/Delivery: Assessed, Instructed Comments: Verbal cues for positioning on bed. Verbal cues to reach back to the bed before sitting. Gait Assessment/Training Distance (m): 4 m Surface: Even, Smooth/hard Device: No device, Gait belt # of Assistants: 1 (2nd person for safety but no needed) Level of Assistance: Minimal assistance Quality/Pattern: Shuffling, Decreased heel strike Stability: Fair stability no loss of balance with front wheeled walker Assessment of Gait: Patient ambulates at a very slow pace with downward gaze. Cueing Provided: Verbal, Tactile Training/Intervention: Verbal cues for upright positioning, light assistance with walker management, verbal cues to stay within frame of walker. Response: No adverse events. Seated Exercises Seated Exercise - Side Addressed: Bilateral Seated Exercise: Ankle pumps, Long arc quads Sets/Repetitions: x10 reps Patient's nurse was contacted and patient's status was discussed Patient was left in bed at end of session with call light in reach, all needs met and questions answered. Outcome Measures -[facility] Inpatient Short Form: AM-[facility] Basic Mobility (V.2) How much help from another person do you currently need???If the patient hasn't done an activity recently, how much help from another person do you think he/she would needif he/she tried? 1. Turning from your back to your side while in a flat bed without using bedrails?: A Little 2. Moving from lying on your back to sitting on the side of a flat bed without using bedrails?: A Little 3. Moving to and from a bed to a chair (including a wheelchair)?: A Little 4. Standing up from a chair using your arms (e.g., wheelchair, or bedside chair)?: A Little 5. To walk in hospital room?: A Lot 6. Climbing 3-5 steps with a railing?: Total AM-PAC Basic Mobility (V.2) Raw Score: 15 AM-PAC Basic Mobility (V.2) Standardized Score: 36.97 Interpretation: Clinicians answer the AM-[facility] Inpatient Short Form based on observed patient activity and/or clinical judgement (ie. patient can be scored without physically performing each activity) Based on scoring guidelines using the raw score value: Those going to home had an average score at or above 18 Those going to facility had an average score at or below 17 Assessment Discharge Therapy Needs - PT: Ongoing skilled physical therapy Skilled therapy can include physical therapy provided by home health, outpatient clinic, or a post-acute facility. The location of these services is determined by the patient's care team in partnership with patient/family. Level of Care Needed - PT: Assistance with transfers (Comment), Assistance with walking and moving around the home, Assistance with bed mobility, Assistance with stairs, Cognitive assistance needed, Physical assistance needed Equipment Recommended - PT: Hospital bed, Wheelchair Barriers to Discharge Home: Current functional status, Fall risk, Safety concerns Barriers to Discharge Comments: 2 stairs to enter residence. From a physical therapy perspective, the level of care above has been recommended for Ms. Colon after hospital discharge. This level of care is based on her functional abilities during today's session. This may change throughout the hospital course and will be updated as appropriate. Clinical Impression of today's session: Patient actively participate in physical therapy for transfers, short distance gait with front wheeled walker seated lower extremity exercises. Patient continues to require assist of 1 capable personfor ambulating short distances. Patient is below her functional baseline and will continue to benefit from skilled physical therapy intervention. Rehab potential: Ms. Colon has potential to achieve established physical therapy goals within the time frame outlined below. Progress: Slow progress, limited activity tolerance, Slow progress, cognitive deficits Functional Goals and Timeframes: PT Inpatient Goals PT Goal #1: Patient will be able to complete all bed mobility independently with no physical assistand no verbal cues necessary in order to facilitate return to PLOF. PT Goal #1 Status: Progressing PT Goal #2: Patient will be able to complete STS transfer from edge of bed to standing modified independent utilizing front wheel walker for assist, in order to allow for functional transfers at home. PT Goal #2 Status: Progressing PT Goal #3: Patient will be able to ambulate 30m modified independent utilizing front wheel walker for assist, in order to allow for functional ambulation upon DC. PT Goal #3 Status: Slowly progressing PT Goal #4: Patient will be able to safely navigate 2 stair(s) under supervision in order to allow access into/to all levels of their home prior to discharge. PT Goal #4 Status: Ongoing Plan Patient agrees with the plan of care and goals. Treatment Plan: Plan: Continue with current plan PT Frequency: PT Amount: 1 visit per day PT Frequency: 5 times per week PT Inpatient Duration : Until goals are met or hospital discharge Requires Inpatient Follow-Up: Yes PT - Next Inpatient Appointment: 04/18/23 PT Plan Comments: Continue to progress mobility, transfers, ambulation, balance and safety. Stair training when appropriate. 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 Visit Trackin Billing: Time Spent with Patient Therapeutic Interventions Therapeutic Activity (min): 20 min Therapeutic Exercise (min): 4 min Time Tracking Total Timed Units (min): 24 min Total Treatment Time (min): 24 min Danisha PlataTJonh NT REPRESENTATIVE * Jessica Darnell, M.SAdalid, RDN, LD - 04/17/2023 2:51 PM CST Nutrition Care Plan Follow Up Clinical Nutrition continues to follow patient for tube feeding recommendations/management ASSESSMENT Current Nutrition (since admission): Patient shares that she is still tolerating her tube feedings.Patient sneezed and tape on NGT tube was detatched, so nursing bridled feeding tube today. Patient shares that she did a little better with oral intake today. She consumed 50% of toast (though she notes it did not go well), some ice cream, and orange juice at breakfast, and had 25% pears, breakfast potatoes, and yogurt. She was able to consume 75% of her strawberry milkshake. Pt enjoys these. Will send vanilla milkshake at breakfast time to supplement intake. She did share that she has neverbeen a big eater, but her appetite may be slightly improving. Tube feeds will stay the same today, as pt's intake not adequate to start weaning. This regimen meets the low end of patient's estimated energy and protein needs. Patient shares the continuous methodof administration is more tolerable than the intermittent/bolus method. Results for the past 120 hrs: 24 Hr Total Calorie Intake 04/16/23 2359 255 04/15/23 2359 121 04/14/23 2300 75 04/13/23 2300 0 04/12/23 2359 226 Results for the past 120 hrs: 24 Hr Total Protein Intake 04/16/23 2359 9 04/15/23 2359 2 04/14/23 2300 1 04/13/23 2300 0 04/12/23 2359 2 Calorie Count Summary: Past 5 day average was 135 calories/day and 3 grams protein/day. Team Update: Patient has been accepted to multiple SNFs and placement is pending bed availability and NGT status. Patient must be on a regular diet with no NGT for placement. RDN expressed concern to service due to poor oral intake vs long-term enteral nutrition support (i.e. potential for PEG tube placement). Will continue calorie counts, encouraging oral intake, and reassessment for appropriateness of tube feeding. Tube Information: GI Tubes (Adults) Nasogastric 10 Fr Nare;Right (Active) Placement Date/Time: 04/06/23 1517 GI Tube Type: Nasogastric GI Tube Size: 10 Fr Length (cm): 50 cmTube Location: Nare;Right Current nutrition orders: Current Diet Adult Diet Regular starting at 04/16 1143 Tube feeding with oral diet -Nutren 1.5 (RTH); Feeding route: Nasogastric; Feed options: Continuous; Starting rate (ml/hr): 20 mL/hr; Rate advancement (ml/hrs): 10 mL q 8 hours; Continuous goal rate (ml/hr): 40 mL/hr; Daily goal volume (mL): 960 m... starting at 04/13 1200 GI Function: Last BM Date: 04/17/23, [place] Stool Chart: Type 5: Soft blobs with clear-cut edges, Passing Flatus: Yes. Has x2 BMs today, both soft. Medications: allopurinoL bisacodyL brimonidine buPROPion dorzolamide- timoloL escitalopram esomeprazole heparin (porcine) ketorolac pantoprazole polyethylene glycol pyridoxine (vitamin B6) sennosides- docusate sodium thiamine Pertinent Labs: Last 3 results Lab Units 04/17/23 0038 04/16/23 0614 04/15/232001 SODIUM mmol/L 140 142 141 POTASSIUM mmol/L 3.4* 3.5* 3.8 CHLORIDE mmol/L 105 107 106 BUN mg/dL 23* 24* 26* CREATININE mg/dL 0.88 1.05* 1.14* PHOSPHORUS INORGANIC mg/dL 2.8 2.7 2.5 CALCIUM mg/dL 9.1 9.3 9.5 Latest Reference Range & Units 04/02/23 16:14 04/04/23 08:27 04/04/23 08:28 04/05/23 15:41 04/05/23 15:42 04/05/23 15:43 04/05/23 15:44 25-Hydroxy D2 ng/mL <4.0 25-Hydroxy D3 ng/mL 69 25-Hydroxy D Total ng/mL 69 Folate, S >=4.0 mcg/L 8.9 9.0 A-Tocopherol, Vitamin E 5.5 - 17.0 mg/L 11.9 Pyridoxic Acid (PA), P 3 - 30 mcg/L <2 (L) Vitamin B12 Assay, S 180 - 914 ng/L 1300 (H) Nicotinic Acid (Niacin) Cutoff:<5.0 ng/mL <5.0 Nicotinamide 5.0 - 48.0 ng/mL 11.3 Nicotinuric Acid Cutoff:<5.0 ng/mL <5.0 Thiamine (Vitamin B1), WB 70 - 180 nmol/L 56 (L) Pyridoxal 5-Phosphate (PLP), P 5 - 50 mcg/L <2 (L) Ascorbic Acid, P 0.4 - 2.0 mg/dL 0.6 Riboflavin (Vitamin B2), P 1 - 19 mcg/L 30 (H) (L): Data is abnormally low (H): Data is abnormally high Weight since admission: Height: 149.9 cm Admission Weight: 54 kg (04/02/2023) Current Weight: 53.9 kg BMI (Calculated): 24 kg/m?? Weight change since admission: -0.1 kg Net IO Since Admission: 5,379 mL [04/17/23 1451] Estimated Needs: Total Calorie Needs: 3883-6476 calories/day Method to Estimate Energy Needs: kcal/kg (25-30 kcal/kg) Weight Used for Equation Calculations: 54 kg Total Protein Needs: 54 - 65 grams/day Method to Estimate Protein Needs (g/kg): 1 - 1.2 gm/kg Weight Used to Calculate Protein Needs (Kg): 54 kg Total Fluid Needs: 1350 - 1620 grams/day Method to Estimate Fluid Needs (mL/kg): 25-30 mL/kg Weight Used to Calculate Fluid Needs (Kg): 54 kg Nutrition Diagnosis: Inadequate protein-energy intake related to decreased appetite/ NV as evidenced by Family reported intake and >5% wt loss in 1 m Nutrition Diagnosis Reassessment: Ongoing Malnutrition (undernutrition) related to decreased appetite, disease process as evidenced by decreased oral intake and weight loss of 5% over the last 1 month. PLAN Nutrition Intervention: Medical food supplement, Increase nutrient intake with small, frequent meals and/or snacks, Assess oral intake with calorie count Nutrition parameter to monitor: Meals/Supplement Intake, Weight Status, Nausea/Vomiting/Diarrhea, Wound Healing ASPEN Criteria Malnutrition Status: Severe Malnutrition Recommendations: Oral diet per PTO-Dysphagia Continue supplementing with oral nutrition supplements. Continue on continuous tube feeding: Formula: Nutren 1.5 Regimen: 20 mL advancing 10 mL q 8 hours to goal of 40 mL/hr Flushes: 60 mL q 6 hours (QID) No longer receiving IV fluids. Vitamin/minerals: Regimen meets 96% of RDIs Regimen at goal provides 960 mL formula, 1440 kcal, 65 g protein, 970 mL free water (730 mL from formula, 240 mL from patency flushes, meets 72% fluid needs, the rest PO). Will monitor for need for long-term enteral nutrition support. Clinical Nutrition will continue to follow. For questions about patient's nutritional care please contact pager [phone] on weekdays 07:30-16:00 or [phone] on weekends/holidays. NT REPRESENTATIVE * Arleen Díaz - 04/17/2023 1:44 PM CST Occupational Therapy [facility] Inpatient Treatment SUBJECTIVE Patient's Name: Darcy Colon Referring/Attending Provider: Lambert Roy M.D. Reason for Referral: Occupational Therapy Evaluation and Treatment History of Present Illness: Darcy Colon is a 82 y.o. female who was admitted to [facility] in [place] on 04/02/2023 for Hypercalcemia [E83.52] Hypokalemia [E87.6] Weakness General [R53.1] Lymphoma (HCC) [C85.90]. Precautions Other Precautions: Fall Risk, decreased functional use of right upper extremity dominant hand; generalized weakness; double vision, aspiration precautions Pain Assessment: Pain Ratin/10 on a 0-10 point scale Subjective Comments: Agreeable to therapy session. Team Communication: The patient's status was discussed and coordination of care occurred with coil winder/Caregiver Present: Patient's was present during session. OBJECTIVE Outcome Measures: [facility] Inpatient Short Form: Putting on and taking off regular lower body clothing?: A lot Putting on and taking off regular upper body clothing?: A Little Taking care of personal grooming such as brushing teeth?: A Little Bathing (including washing, rinsing, drying)?: A lot Toileting, which includes using toilet, bedpan, or urinal?: Total Eating meals?: A Little Daily Activities Raw Score (max 24): 14 Daily Activities Standardized Score: 33.39 Interpretation: Based on scoring guidelines using the raw score value: Those going to home had an average score at or above 18 Those going to facility had an average score at or below 17 Clinicians answer the [facility] Inpatient Short Form based on observed patient activity and/or clinical judgement (ie. patient can be scored without physically performing each activity) SLUMS: [facility] Mental Status Examination (UMS) is a brief oral/written exam given to people that are suspected to have dementia or Alzheimer's Disease. The screening tool is usedto assess orientation, memory, attention, and executive functions. With high school education, the patient scored 17/30 and results from the screening are indicative of dementia and further assessment is warranted . What day of the week is it?: 1 What is the year?: 1 What state are we in?: 1 How much did you spend/have left?: 0 Name as many animals as you can in 1 minute: 1 What are the 5 objects?: 1 Give me the series of numbers backward: 0 This is a clock face...: 4 Place an 'X' on the triangle/Which is largest?: 2 I am going to tell you a story...: 6 SLUMS Total Score: 17 Cognition: Observable concerns with cognition and further assessment is warranted Therapeutic Interventions: BED MOBILITY: SUPINE to SIT - Assist Level: Minimal Assist - Device: use of bed rail - Therapist Delivery: facilitated - Assist/Cues: verbal for proper leg placement Patient engaged in supine to sit bed mobility and required minimal assist while utilizing bed rails. Therapist facilitated for completion and patient required minimal assist with moving legs to edge of bed. Patient required 1 verbal cue to walk legs to edge of bed. FUNCTIONAL TRANSFERS: SIT to STAND - Assist Level: Stand By Assist - Equipment: front wheeled walker and gait belt - Surface: Bed - Therapist Delivery: facilitated - Assist/Cues: verbal for proper hand placement Patient engaged in cav-jj-wjjhl functional transfer required standby assist while seated at edge ofbed and use of front wheeled walker and gait belt. Therapist facilitated functional transfer for completion and patient required 1 verbal cue for proper hand placement for 1 hand on front wheeled walker and 1 hand on bed rail to stand. STAND to SIT - Assist Level: Stand By Assist - Equipment: front wheeled walker and gait belt - Surface: Chair - Therapist Delivery: facilitated - Assist/Cues: verbal for proper hand placement Patient engaged in stand to sit functional transfer required standby assist while utilizing a frontwheeled walker and gait belt standing at edge of bedside chair. Therapist facilitated functional transfer for completion and patient required 1 verbal cue for proper hand placement on arm of bedside chair before seated. Education Provided: Activity Recommendations During Hospitalization: Patient educated on importance of activity and mobility to improve pulmonary function/hygiene, activity tolerance, strength, and overall well-being while in the hospital setting. - Eat ALL meals in chair - Ambulate/transfer into chair 3-5x/day Patient was left in bedside chair at end of session with call light in reach, all needs met and questions answered. Assessment Discharge Therapy Needs - OT: Ongoing skilled occupational therapy Skilled therapy can include occupational therapy provided in home health, outpatient or post-acute facility. The location of these services is determined by patient's care team in partnership with patient/family. Barriers to Discharge Home: Current functional status, Fall risk, Safety concerns Level of Care Needed - OT: Assistance with toileting, Assistance with dressing, Assistance with toilet/shower transfers, Assistance with meal preparation, Physical assistance needed, Assistance with medication set up/administration, Assistance with personal financial advisor, Assistance with transportation, Assistance with showering/bathing, Assistance with housekeeping, Assistance with eating/feeding,Assistance with shopping, Cognitive assistance needed Clinical Impression: Currently, patient present with impairments including decreased functional strength, impaired static and dynamic standing balance, decreased safety and independence with functional mobility, diminished activity tolerance, pain that limits activity, and reduced range of motion that has limited engagement in ADLs and IADLs. Upon therapist arrival, patient was in supine position in bed with patient's present in room. Patient stated she was willing to engage in therapy and ambulate to bedside chair to order and eat breakfast. Patient engaged in bed mobility and functional transfers while utilizing a front wheeled walker and gait belt and required standby assist. This is an improvement co mpared to past session where patient required x2 minimal assist during functional transfers. Patient engaged in cognitive assessment with therapist and scored a 17/30 on the SLUMS which is indicativeof possible dementia and further assessment is warranted. Patient would benefit from tier 3 acute care cognitive tiered assessment to assess patient's independence in IADLs. The patient is planning to be discharged to a [facility] facility upon acceptance and approval. The patient will work ongrooming tasks at sink to increase standing tolerance and balance in next session. The patient will benefit from ongoing occupational therapy services while hospitalized in order to improve engagement and independence in meaningful occupations. Plan OT Plan Comments: Plan for next session includes increase functional use of right upper extremity in self feeding + oral cares, seated grooming, trunk/core strengthening exercises at EOB, bed mobility, progress transfers/mobilty as able; progress standing tolerance with use of FWW, caregiver training as needed Functional Goals: OT Goal #1: Patient will demonstrate all functional transfers with stand by assist to progress towards baseline. OT Goal #1 Status: Progressing OT Goal #2: Patient will demonstrate total body dressing and toileting with minimal assistance of 1to progress towards baseline. OT Goal #2 Status: Ongoing OT Goal #3: Patient will increase functional use of right upper extremity in self feeding+ groomingwith minimal assist to increase independence and self reliance in self cares. OT Goal #3 Status: Progressing OT Goal #4: Patient will tolerate sitting unsupported at EOB for greater than 30 minutes to facilitate independent participation in self-cares (grooming, feeding, upper body dressing). OT Goal #4 Status: Progressing Progress: Improving as expected Rehab potential: Ms. Colon has good potential to achieve established occupational therapy goals within the time frame outlined below. OT Frequency: OT Amount: 1 visit per day OT Frequency: 5 times per week OT Inpatient Duration : Until goals are met or hospital discharge Requires Inpatient OT Follow-Up: Yes OT - Next Inpatient Appointment: 04/18/23 Plan: Continue with current plan Treatment interventions may include: Treatment Interventions: Self-care/home management Occupational Therapy Attestation Statement: Patient agrees with the plan of care and goals. Billing: Time Spent with Patient Therapeutic Interventions Home Management Training (min): 31 min Time Tracking Total Timed Units (min): 31 min Total Treatment Time (min): 31 min Arleen Díaz OTS NT REPRESENTATIVE Associated attestation - Eden Rodgers Ed.D., O.T. - 04/17/2023 4:24 PM CLIENT REPRESENTATIVE This therapist has reviewed all documentation and supervised today???s session. The therapist agrees with the plan developed in collaboration with the patient. * Deloris Valenzuela R.N. - 04/17/2023 1:32 PM CST Images from the original note were not included. SUBJECTIVE psychology teacher for discharge planning. OBJECTIVE Patient hospitalized on 72 Room 210. Destination - Admitted Since 04/02/2023 Service Provider Request Status Selected Services Address Phone Fax Patient Preferred [facility] Considering Need additional clinical information N/A [id number] [place] [address] -- [facility] Considering Need clinical review N/A [address] [facility] [place] [address] [phone] -- Internal Comment last updated by Deloris Valenzuela R.N. 04/16/2023 1213 Please follow up on wether the facility can provide IV Rituximab treatment [facility] Considering Need bed availability N/A [address], [place] [address] [phone] -- [facility] Considering Need bed availability N/A [address] [facility] [address] -- [facility] Pending - Request Sent N/A [address] [facility] [place] [phone] -- [facility] Pending - Request Sent N/A [address] [place] [address] [phone] -- [facility] Pending - Request Sent N/A [address] [facility] -- [facility] Pending - Request Sent N/A [address] [facility] [address] -- [facility] Pending - Request Sent N/A [address] [facility] [address] [phone] -- [facility] Pending - Request Sent N/A [address] [place] [address] [phone] -- [facility] Pending - Request Sent N/A [address] [facility] [phone] -- [facility] Pending - Request Sent N/A [address] [facility] [address] [phone] -- [facility] P[facility] - Request Sent N/A [address] [place] [address] [phone] -- [facility] Pending - Request Sent N/A [address] [facility] [place] [place] [phone] -- [facility] Pending - Request Sent N/A [address] [place] [address] -- [facility] Pending - Request Sent N/A [address] [facility] -- [facility] Pending - Request Sent N/A [address] [facility] [facility] [address] [phone] -- [facility] Pending - Request Sent N/A [address], [facility] [address] -- [facility] Pending - Request Sent N/A [address] [place] [address] -- [facility] Pending - Request Sent N/A [address] [place] [phone] -- [facility] Pending - Request Sent N/A [address] [place] [address] [phone] -- [facility] Pending - Request Sent N/A [address] [place] [phone] -- [facility] Pending - Request Sent N/A [address] [place] [address] -- [facility] Pending - Request Sent N/A [address] [facility] [phone] -- [facility] Pending - Request Sent N/A [address] [facility] [phone] -- MERY Pending - Request Sent N/A [address] [facility] [address] [phone] -- [facility] Pending - Request Sent N/A [address] [facility] [address] [phone] -- [facility] Pending - Request Sent N/A [address] [facility] [phone] -- [facility] Pending - Request Sent N/A [address] [facility] [address] -- [facility] Pending - Request Sent N/A [address] [facility] [facility] [address] [phone] -- [facility] Pending - Request Sent N/A [address] [facility] [phone] -- [facility] Pending - Request Sent N/A [address] [facility] [phone] -- [facility] Pending - Request Sent N/A [address] [place] [address] [phone] -- [facility] Pending - Request Sent N/A [address] [facility] [address] -- [facility] Pending - Request Sent N/A [address] [facility] [address] [phone] -- [facility] Pending - Request Sent N/A [address] [facility] [place] [address] -- [facility] Pending - Request Sent N/A [address], [place] [address] -- [facility] Declined No memory care beds open N/A [address] [facility] [address] [phone] [facility] Declined Bed not available N/A [address] [facility] [address] [phone] [facility] Declined Bed not available N/A [address] [facility] [address] [phone] -- [facility] Declined Acuity too high, Chemo, no Private room N/A [address] [facility] [phone] -- [facility] Declined Facility cannot provide for patient's needs N/A [address] [facility] [phone] -- [facility] Declined Bed not available N/A [address] [facility] [address] -- [facility] Declined Bed not available, Facility Full N/A [address] [facility] [phone] -- -- [facility] Declined Facility cannot provide for patient's needs N/A [address] [facility] [address] -- [facility] Declined Facility cannot provide for patient's needs N/A [address] [facility] [address] -- ASSESSMENT / PLAN psychology teacher met with the patient and spouse VickeyshanaSocoe at bedside. psychology teacher informedthe patient and the patient's spouse LucianodeuceShana saldanaPhilippe of the possibility of being accepted at the following facilities: [facility], [facility] pending the patient being medically stable for discharge. The patient and spouse Philippe Colon stated that their preference would be [facility]. Plan: The patient and patient's agrees with the following plan. Patient's anticipated discharge disposition is: [facility]. Transportation upon dismissal will be provided by family--VickeyshanaPhilippe (Spouse) . psychology teacher recommended reaching out to family, friends, and neighbors for assistance. psychology teacher provided information regarding the dismissal process. psychology teacher placed or requested the following hospital-based consult orders and/or referrals: None. psychology teacher will continue to assess for homegoing needs with the interdisciplinary team. psychology teacher encouraged the patient to reach out with any questions/concerns. Estela Valenzuela R.N. 04/17/23 NT REPRESENTATIVE * Priyanka Murphy M.D. - 04/17/2023 8:10 AM CST Images from the original note were not included. HEMATOLOGY 3 SERVICE PROGRESS NOTE No care meat team lead to display SUBJECTIVE Darcy Colon is an 82-year-old female with medical comorbidities including mild cognitive impairment, parkinsonism, HTN, breast cancer in 2017 s/p lumpectomy and radiation, nonmelanoma skin cancer,osteopenia, B12 deficiency on supplementation, and GERD who was admitted on 04/02 for generalized weakness, confusion, and poor oral intake. 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 INTERVAL EVENTS: - Yesterday, advanced diet to regular (tolerated small amount of orange sherbert), continued tube feeds - Overnight, no events - This morning, appears well, tube feeds at 40 continuous, unfortunately unable to tolerate breakfast - Otherwise, labs stable including normal calcium and slowly downtrending cystatin (1.86 from 1.91) - SW reported multiple facility acceptances, patient preference [facility] pending bed availability OBJECTIVE VITAL SIGNS Temperature: [36.2 ??C-37 ??C] 37 ??C Resp Rate: [16-18] 16 Blood Pressure: (121-144)/(53-80) 121/53 SpO2: [95 %-96 %] 95 % Weight: [58 kg] 58 kg BMI (Calculated): [25.8 kg/m??] 25.8 kg/m?? Pulse Rate: [73-76] 74 I and O: -Net 131 ml, 2.175 L urine -large BM 04/16 PHYSICAL EXAM General: Alert, chronically ill-appearing female, sitting in bed comfortably, no acute distress Skin: Pale, warm and dry, no rashes or lesions appreciated on exposed skin Eyes: Pupils equal and reactive to light, extraocular movements intact, no scleral icterus ENT: Slightly dry lips with otherwise moist mucous membranes. Lungs: Normal work of breathing on room air, diminished breath sounds at bilateral bases but otherwise clear to auscultation. Heart: Regular rate and rhythm, occasional PVCs, no murmurs, rubs, or gallops appreciated. Abdomen: Soft, nondistended, nontender throughout the abdomen. Splenomegaly. Neuro: Generalized weakness with mild quadriparesis and generalized hyperreflexia. Bradykinesia without overt rigidity. Right foot drop. Mental: Alert and oriented to self, place, situation, month, and year. Engaged in conversation. Unable to say the months of the year backwards. DIAGNOSTICS Labs: Hb 8.4, MCV 97.7 plt 64, WBC 3.4 -Na 142, K 3.5, BUN 24, Cr 1.05, calcium 9.3, iCal 5.21, phos 2.7, uric acid 4, cystatin C 1.91 with eGFR 28 ASSESSMENT / PLAN Ms. Colon is hospitalized on Darcy Darlene is an 82-year-old female with medical comorbidities including mild cognitive impairment, parkinsonism, HTN, breast cancer in 2017 s/p lumpectomy and radiation, nonmelanoma skin cancer, osteopenia, B12 deficiency on supplementation, and GERD who was admitted on 04/02 for generalized weakness, confusion, and poor oral intake. 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 She is now day 4 of cycle 1 of rituximab, which she received on 04/13 without complications. She presented with significant hypercalcemia, which has improved with fluid resuscitation and discontinuation of calcium, vitamin-D, and hydrochlorothiazide. Otherworkup for hypercalcemia has remained negative. Hypercalcemia to this degree is not typically associated with splenic marginal zone lymphoma, however, PET-CT does not suggest that there evidence of diffuse large B-cell transformation or another available site biopsy. If hypercalcemia recurs, additional tissue diagnosis may be indicated. She will continue on rituximab with next dose planned on 04/20. Big picture horta, the patient remains severely functionally debilitated with inability to perform self transfers and significant generalized weakness leading to dysphagia. Speech therapy evaluation on 04/13 did not reveal overt oropharyngeal dysphagia and more so just revealed generalized weakness limiting p.o. intake, which has been supplemented with tube feeds. The patient has been appearing more alert daily, and is interested in trying a regular diet texture in order to better supplement p.o.nutrition. She will continue to work with PT, OT, and speech therapy. We have encouraged the patient to prioritize eating by mouth in order to avoid long-term enteral feeding if able. The patient will need a [facility] facility or [facility] acute care facility in between infusions of rituximab. However, plan will be to remain in the hospital until next infusion on 04/20. Transfuse to keep hemoglobin > 7 and platelets > 10. Patient does not require premed prior toRBCs and platelets. PLAN FOR TODAY: [ ] Encourage PO, wean TFs [ ] Supportive care [ ] Rituxmab Thursday 04/20, then dispo to SNF (vs [facility]) #Lymphoplasmacytic lymphoproliferative disorder -splenic marginal zone lymphoma, stage IV versus Waldenstrom's macroglobulinemia-cycle 1, day 3 of weekly rituximab # Macrocytic anemia # Thrombocytopenia # History of breast cancer Workup: -PET-CT: Moderately FDG avid splenomegaly and diffuse bone marrow activities suspicious for lymphoproliferative process -Bone marrow biopsy: Involved by a CD5 negative, CD10 negative B-cell lymphoproliferative disorder,kappa light chain restricted, 70% hypercellularity -MRI brain w/o PATIENT REGISTRATION REP involvement -Folate and B12 normal -Fat pad biopsy negative for amyloid -Beta-2 microglobulin: 12.10 Plan: -Anemia and thrombocytopenia likely 2/2 bone marrow suppression -Cycle 1 weekly rituximab (D1,8,15,22); day 4, next dose 04/20 -FISH and next generation sequencing pending -Continue allopurinol x 10 days (04/12-04/21) # Hypercalcemia-resolved # Hypokalemia # LUW-czgbasimo-jgbxzoe likely a component of CKD based on cystatin C Workup: -1,25 hydroxy vitamin D 66 -PTH <6 -PTHrP negative -S/p total of 15 L of fluid, lasix 20 mg IV x2, Zometa, and calcitonin x2 -Ca 9.3, iCal 5.21 - Creatinine 1.05, cystatin C1 0.9 with EGFR 28 -UA negative Plan: -Encourage oral intake -hold off on additional fluids given euvolemia and hypercalcemia resolved -Trend cystatin C # Toxic metabolic encephalopathy-improving # Delirium # Mild cognitive impairment # Parkinsonism Workup: -MRI brain and spine negative for lymphoma involvement -Amyloid negative -B6 and thiamine deficiency -EMG and nerve conduction studies negative for large fiber neuropathy or polyradiculopathy -Autoimmune paraneoplastic eval with very mildly elevated GAD65 Ab Plan: - KB previously evaluated: - AMS possibly 2/2 underlying neurodegenerative disorder which has been compounded by nutritional deficiencies - Requires OP follow up after discharge # Malnutrition Severe Protein-Calorie (HCC) # Vitamin B6 Deficiency # Thiamine deficiency # 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 # Dysphagia -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, has overall labial weakness without any overt oropharyngeal dysphagia -Advance to regular diet -NG in place for supplemental feeds given overall generalized weakness -Nutren 1.5 continuous, with goal rate 40 mL/hr -free water flushes 30 mL 4 times daily -Wean tube feeds as able, encourage PO intake - Completed course of IV thiamine; continue supplement via gastric tube - Continue multivitamin - PT/OT/Speech consulted # Hypertension Essential Primary - Hold home HCTZ given hypercalcemia, monitor BP # Gastroesophageal Reflux Disease Without Esophagitis - Nexium daily through G tube # Generalized anxiety disorder - Continue bupropion and escitalopram # Glaucoma - Continue brimonidine, dorzolamide-timolol, and ketorolac ophthalmic solution # Elevated Alkaline Phosphatase - ALK stably elevated - Monitor LFTs intermittently Current Activity/Mobility: BMAT Level 2 (Able to extend knee but cannot stand; needs lift equipment) Fall Injury Prevention: I have discussed My Plan for Safe Activity with the patient. Diet: dysphagia and tube feeds diet Tubes/lines: Lines, Drains, and Airways Drain Duration External Urinary Catheter Female 11d 12h GI Tubes (Adults) Nasogastric 10 Fr Nare;Right 10d 16h Peripheral IV Duration Peripheral IV 04/07/23 20 G Anterior;Lower;Right Forearm 9d 18h VTE prophylaxis: heparin Disposition: [facility] Facility with expected discharge date Surrogate Decision Maker: Spouse, Gerhard Stable to discharge criteria (not met): Functional status Severe Malnutrition The patient meets the ASPEN Criteria of malnutrition based on: Energy Intake: Less than or equal to 75% of estimated energy requirement for greater than or equal to 1 month Interpretation of Weight Loss: greater than 5% 1 month Body Fat: Mild Loss Muscle Mass: Mild Loss This is in the context of Chronic Illness. Malnutrition Present Upon Admission: Yes Agree with Registered Dietitian's assessment and treatment plan: Interventions: Medical food supplement, Increase nutrient intake with small, frequent meals and/or snacks, Assess oral intake with calorie count Plan discussed with the Hematology 3 Support Associate, Lambert Kaiser M.D., who was present during thekey portions of the evaluation today. [place] 3 [place] [phone] with any questions or concerns. Priyanka Murphy M.D. PGY-1 Preliminary Medicine NT REPRESENTATIVE Associated attestation - Lambert Roy M.D. - 04/17/2023 2:45 PM CLIENT REPRESENTATIVE I saw and evaluated the patient, participating in the jorge portions of the service. I reviewed the resident/fellow???s note. I agree with the resident/fellow???s findings and plan. * Jessica Darnell M.S., RAMONAN, LD - 04/16/2023 6:07 PM CST Nutrition Care Plan Follow Up Clinical Nutrition continues to follow patient for tube feeding recommendations/management ASSESSMENT Per Weekend RDN: 04/14: Pt w/ N/V yesterday and no oral intake other than sips. On mirilax but no BM. Na up to 146- on LR. No TF running at this time- chat sent to RN who states pt was nauseaous but she plans to startat 20 this am. MiraLax given. 04/15: Pt ate little yesterday (received a lucy magic cup instead of vanilla). Is at goal TF (40/hr)and seems to be tolerating. Given Lasix for fluid overload. Phos 2.2- no order for replacement yet. PhosNaK given on 04/15 in the evening. Current Nutrition (since admission): Patient struggled with intermittent nausea and emesis over the. Was able to have a few bites of sherbet on Sunday, and had 50% of mashed potatoes and 50% sherbet yesterday. Pt shares today that she ate 50% of yogurt and pears. She notes that her main barrier to intake is lack of appetite/distaste for hospital food, and phlegm that continues to accumulate in her throat. She notes this yellow-j[place] mucus coats her mouth and causes her to gag and sometimes vomit. She notesthat the SB6 diet texture was posing more of an issue as she could not tolerate the broken up pieces of pancakes, etc. She does like creamy things. AUTOMOTIVE ELECTRICAL HELPER saw patient today and advanced her to regular diet. RDN put in notes in [facility] to allow patient to order from her preferred consistency menu. Tube feeds will stay the same today, as pt's intake not adequate to start weaning. Patient shares the continuous method of administration is more tolerable than the intermittent/bolus method. Results for the past 120 hrs: 24 Hr Total Calorie Intake 04/15/23 2359 121 04/14/23 2300 75 04/13/23 2300 0 04/12/23 2359 226 Results for the past 120 hrs: 24 Hr Total Protein Intake 04/15/23 2359 2 04/14/23 2300 1 04/13/23 2300 0 04/12/23 2359 2 Calorie Count Summary: Past 4 day average was 105 calories/day and 1 gram protein/day. Tube Information: GI Tubes (Adults) Nasogastric 10 Fr Nare;Right (Active) Placement Date/Time: 04/06/23 1517 GI Tube Type: Nasogastric GI Tube Size: 10 Fr Length (cm): 50 cmTube Location: Nare;Right Current nutrition orders: Current Diet Adult Diet Regular starting at 04/16 1143 Tube feeding with oral diet -Nutren 1.5 (RTH); Feeding route: Nasogastric; Feed options: Continuous; Starting rate (ml/hr): 20 mL/hr; Rate advancement (ml/hrs): 10 mL q 8 hours; Continuous goal rate (ml/hr): 40 mL/hr; Daily goal volume (mL): 960 m... starting at 04/13 1200 GI Function: Last BM Date: 04/16/23, Cache Stool Chart: Type 4: Like a sausage or snake, smooth and soft, Passing Flatus: Yes. Patient had not had a BM since 04/09. Was receiving stool softeners. Senokot and MiraLax not given the last 2 days. Medications: allopurinoL bisacodyL brimonidine buPROPion dorzolamide- timoloL escitalopram [START ON 04/17/2023] esomeprazole heparin (porcine) ketorolac pantoprazole polyethylene glycol pyridoxine (vitamin B6) sennosides-docusate sodium thiamine Continuous Meds: Pertinent Labs: Last 3 results Lab Units 04/16/23 0614 04/15/23200104/15/23 1226 SODIUM mmol/L 142 141 142 POTASSIUM mmol/L 3.5* 3.8 4.0 CHLORIDE mmol/L 107 106 106 BUN mg/dL 24* 26* 27* CREATININE mg/dL 1.05* 1.14* 1.25* PHOSPHORUS INORGANIC mg/dL 2.7 2.5 2.2* CALCIUM mg/dL 9.3 9.5 9.4 Latest Reference Range & Units 04/02/23 16:14 04/04/23 08:27 04/04/23 08:28 04/05/23 15:41 04/05/23 15:42 04/05/23 15:43 04/05/23 15:44 25-Hydroxy D2 ng/mL <4.0 25-Hydroxy D3 ng/mL 69 25-Hydroxy D Total ng/mL 69 Folate, S >=4.0 mcg/L 8.9 9.0 A-Tocopherol, Vitamin E 5.5 - 17.0 mg/L 11.9 Pyridoxic Acid (PA), P 3 - 30 mcg/L <2 (L) Vitamin B12 Assay, S 180 - 914 ng/L 1300 (H) Nicotinic Acid (Niacin) Cutoff:<5.0 ng/mL <5.0 Nicotinamide 5.0 - 48.0 ng/mL 11.3 Nicotinuric Acid Cutoff:<5.0 ng/mL <5.0 Thiamine (Vitamin B1), WB 70 - 180 nmol/L 56 (L) Pyridoxal 5-Phosphate (PLP), P 5 - 50 mcg/L <2 (L) Ascorbic Acid, P 0.4 - 2.0 mg/dL 0.6 Riboflavin (Vitamin B2), P 1 - 19 mcg/L 30 (H) (L): Data is abnormally low (H): Data is abnormally high Weight since admission: Height: 149.9 cm Admission Weight: 54 kg (04/02/2023) Current Weight: 58 kg BMI (Calculated): 25.8 kg/m?? Weight change since admission: 4 kg Net IO Since Admission: 5,590 mL [04/16/231812] Estimated Needs: Total Calorie Needs: 5197-4529 calories/day Method to Estimate Energy Needs: kcal/kg (25-30 kcal/kg) Weight Used for Equation Calculations: 54 kg Total Protein Needs: 54 - 65 grams/day Method to Estimate Protein Needs (g/kg): 1 - 1.2 gm/kg Weight Used to Calculate Protein Needs (Kg): 54 kg Total Fluid Needs: 1350 - 1620 grams/day Method to Estimate Fluid Needs (mL/kg): 25-30 mL/kg Weight Used to Calculate Fluid Needs (Kg): 54 kg Nutrition Diagnosis: Inadequate protein-energy intake related to decreased appetite/ NV as evidenced by Family reported intake and >5% wt loss in 1 m Nutrition Diagnosis Reassessment: Ongoing PLAN Nutrition Intervention: Medical food supplement, Increase nutrient intake with small, frequent meals and/or snacks, Assess oral intake with calorie count Nutrition parameter to monitor: Meals/Supplement Intake, Weight Status, Nausea/Vomiting/Diarrhea, Wound Healing ASPEN Criteria Malnutrition Status: Severe Malnutrition Recommendations: Oral diet per PTO-Dysphagia Continue supplementing with oral nutrition supplements. Continue on continuous tube feeding: Formula: Nutren 1.5 Regimen: 20 mL advancing 10 mL q 8 hours to goal of 40 mL/hr Flushes: 60 mL q 4 hours (QID) 120 mL No longer receiving IV fluids. Vitamin/minerals: Regimen meets 96% of RDIs Regimen at goal provides 960 mL formula, 1440 kcal, 65 g protein, 1210 mL free water (730 mL from formula, 360 mL from patency flushes, meets 89% fluid needs, the rest PO). Will monitor for need for long-term enteral nutrition support. Clinical Nutrition will continue to follow. For questions about patient's nutritional care please contact pager [phone] on weekdays 07:30-16:00 or [phone] on weekends/holidays. NT REPRESENTATIVE * Kavita James, P.T.A. - 04/16/2023 2:52 PM CST 04/16/23 7128 Reason Therapy Missed Reason Therapy Missed Receiving other care Patient working with OT and then plans to have company. Will plan to continue PT 04/17/23. NT REPRESENTATIVE * Arleen Díaz - 04/16/2023 2:43 PM CST Occupational Therapy Acute Hospital Inpatient Treatment SUBJECTIVE Patient's Name: Darcy Colon Referring/Attending Provider: Lambert Roy M.D. Reason for Referral: Occupational Therapy Evaluation and Treatment History of Present Illness: Darcy Colon is a 82 y.o. female who was admitted to [facility] in [place] on 04/02/2023 for Hypercalcemia [E83.52] Hypokalemia [E87.6] Weakness General [R53.1] Lymphoma (HCC) [C85.90]. Precautions Other Precautions: Fall Risk, decreased functional use of right upper extremity dominant hand; generalized weakness; double vision, aspiration precautions Pain Assessment: Pain Ratin/10 on a 0-10 point scale, Location: Left hip area. Subjective Comments: Agreeable to therapy session. Team Communication: The patient's status was discussed and coordination of care occurred with coil winder/Caregiver Present: Patient's was present during session. OBJECTIVE Vital Signs: Vitals taken during session: Pulse rate: 97 bpm and Blood pressure: 144/80 mmHg Patient's vitals were taken supine in bed pre-activity. Outcome Measures: [facility] Inpatient Short Form: Putting on and taking off regular lower body clothing?: A lot Putting on and taking off regular upper body clothing?: A Little Taking care of personal grooming such as brushing teeth?: A Little Bathing (including washing, rinsing, drying)?: A lot Toileting, which includes using toilet, bedpan, or urinal?: Total Eating meals?: A Little Daily Activities Raw Score (max 24): 14 Daily Activities Standardized Score: 33.39 Interpretation: Based on scoring guidelines using the raw score value: Those going to home had an average score at or above 18 Those going to facility had an average score at or below 17 Clinicians answer the [facility] Inpatient Short Form based on observed patient activity and/or clinical judgement (ie. patient can be scored without physically performing each activity) Cognition: Observable concerns with cognition and further assessment is warranted Cognitive Deficits: Decreased arousal, Drowsy, Impaired processing, Memory concerns, Slow to respond Therapeutic Interventions: BED MOBILITY: SUPINE to SIT - Assist Level: Stand By Assist - Device: use of bed rail, head of bed elevated - Therapist Delivery: facilitated - Assist/Cues: verbal for proper leg placement Patient engaged in supine to sit bed mobility required standby assist while patient utilized bed rails and head of the bed elevated. Therapist facilitated for successful supine to sit and patient required 1 verbal cue for proper leg placement to walk legs to edge of bed. Patient was reminded to tryto sit up tall and to try not to lean back when seated at edge of bed. FUNCTIONAL TRANSFERS: SIT to STAND - Assist Level: Minimal Assist, x 2 - Equipment: front wheeled walker and gait belt - Surface: Bed - Therapist Delivery: facilitated - Assist/Cues: verbal for assistance to move gait device Patient engaged in [id number] functional transfer and required minimal assist x2 while utilizing a front wheeled walker and gait belt seated edge of bed. Patient required minimal assist with standing with 1 therapist on left-sided patient and an outlet therapist in front for safety precautions. Therapist facilitated for functional transfer and patient required 1 verbal cue to continue to move gait device during stand pivot transfer to chair as well as to move feet slowly in between turns. STAND to SIT - Assist Level: Minimal Assist, x 2 - Equipment: front wheeled walker and gait belt - Surface: Chair - Therapist Delivery: instructed - Assist/Cues: verbal for proper hand placement Patient engaged in stand to sit functional transfer required minimal assist x2 while utilizing a front wheeled walker and gait belt to be seated at bedside chair. Patient required minimal assist x2 with guiding patient's hand to bedside chair arms and for instruction on where to be seated. Patient required 1 verbal cue for placing hands bedside chair arm rests. Due to the patient not being seatedat back of bedside chair patient required minimal assist x2 for boost in chair with sheet. Education Provided: Toileting - Patient instructed on accurate positioning and modifications for toileting skills with hygiene care and clothing management. Education and recommendations provided on options including toilet hygiene aid and/or toilet seat modifications. Activity Recommendations During Hospitalization: Patient educated on importance of activity and mobility to improve pulmonary function/hygiene, activity tolerance, strength, and overall well-being while in the hospital setting. - Eat ALL meals in chair - Ambulate/transfer into chair 3-5x/day Patient was left in bedside chair at end of session with call light in reach, all needs met and questions answered. Assessment Discharge Therapy Needs - OT: Ongoing skilled occupational therapy Skilled therapy can include occupational therapy provided in home health, outpatient or post-acute facility. The location of these services is determined by patient's care team in partnership with patient/family. Level of Care Needed - OT: Assistance with toileting, Assistance with dressing, Assistance with toilet/shower transfers, Assistance with meal preparation, Physical assistance needed, Assistance with medication set up/administration, Assistance with personal financial advisor, Assistance with transportation, Assistance with showering/bathing, Assistance with housekeeping, Assistance with eating/feeding,Assistance with shopping, Cognitive assistance needed Clinical Impression: Currently, patient present with impairments including decreased functional strength, impaired static and dynamic standing balance, decreased safety and independence with functional mobility, diminished activity tolerance, pain that limits activity, and reduced range of motion that has limited engagement in ADLs and IADLs. Patient was very pleasant during today's session and was accompanied by herhusband. Patient engaged in bed mobility, functional transfers, and education regarding toileting and activity recommendations during inpatient stay. Patient was recommended to try to eat all meals in bedside chair and to try to utilize commode during toileting. Patient was able to perform bed mobil ity with standby assist however was reminded to sit up straight and to try not to lean back while seated edge of bed. Patient also required minimal assist x2 to stand with front wheeled walker and gait belt. Patient was able to successfully be seated at bedside chair while requiring cues to move front- wheeled walker during stand pivot transfer. Patient seems to have observable cognitive deficits relating to memory, therefore patient will monitor as warranted and administer cognitive assessment in next session. Patient will engage in functional task while standing to increase standing tolerance and independence in next session. The patient will benefit from ongoing inpatient occupational therapy services at this time. Plan OT Plan Comments: Plan for next session includes increase functional use of right upper extremity in self feeding + oral cares, seated grooming, trunk/core strengthening exercises at EOB, bed mobility, progress transfers/mobilty as able; progress standing tolerance (with use of Martir Steady or FWW),caregiver training and as needed Functional Goals: OT Goal #1: Patient will demonstrate all functional transfers with stand by assist to progress towards baseline. OT Goal #1 Status: Slowly progressing OT Goal #2: Patient will demonstrate total body dressing and toileting with minimal assistance of 1to progress towards baseline. OT Goal #2 Status: Ongoing OT Goal #3: Patient will increase functional use of right upper extremity in self feeding+ groomingwith minimal assist to increase independence and self reliance in self cares. OT Goal #3 Status: Slowly progressing OT Goal #4: Patient will tolerate sitting unsupported at EOB for greater than 30 minutes to facilitate independent participation in self-cares (grooming, feeding, upper body dressing). OT Goal #4 Status: Progressing Progress: Progressing toward goals Rehab potential: Ms. Colon has good potential to achieve established occupational therapy goals within the time frame outlined below. OT Frequency: OT Amount: 1 visit per day OT Frequency: 5 times per week OT Inpatient Duration : Until goals are met or hospital discharge Requires Inpatient OT Follow-Up: Yes OT - Next Inpatient Appointment: 04/17/23 Plan: Continue with current plan Treatment interventions may include: Treatment Interventions: Self-care/home management Occupational Therapy Attestation Statement: Patient agrees with the plan of care and goals. Billing: Time Spent with Patient Therapeutic Interventions Home Management Training (min): 35 min Time Tracking Total Timed Units (min): 35 min Total Treatment Time (min): 35 min Arleen Monahanjohn OTS NT REPRESENTATIVE Associated attestation - Fiorella Fitch M.S., O.T. - 04/16/2023 4:14 PM CLIENT REPRESENTATIVE This therapist has reviewed all documentation and supervised today???s session. The therapist agrees with the plan developed in collaboration with the patient. * Milana Zamora M.S., [facility]-AUTOMOTIVE ELECTRICAL HELPER - 04/16/2023 11:00 AM CST Speech Language Pathology Dysphagia Treatment- Acute Care Session Type: Treatment Length of session: 10 minutes Time of Dysphagia Session: 1100 SUBJECTIVE Darcy was seen today in her room. She participated well in all therapy tasks. General Family/Caregiver Present: Yes Arousal/Alertness: Appropriate responses to stimuli Behavior: Cooperative, Alert Pain No signs of pain were reported or observed. OBJECTIVE Consistencies Assessed: None this session Swallowing Exercises Targeted None this session Assessment Followed-up with Ms. Colon regarding diet tolerance. Overall, her alertness and responsiveness aremuch improved compared to initial evaluation on Sunday 04/16. She reports that eating and drinking is going well. She denies any difficulty swallowing including the feeling of food/liquid entering theairway. She feels that oral manipulation of solid foods is normal. We discussed options for diet textures. Ms. Colon indicates her preference to trial a regular dietto increase menu variety and promote increased oral nutrition. As there is no physiologic necessityfor a modified diet, other than patient preference secondary to fatigue or nausea, recommend initiating Regular solids (IDDSI level 7) and Thin liquid (IDDSI level 0). Goals: Dysphagia Supervisor Multifocal Lens Goal Dysphagia Retirement Goal: Patient will tolerate least restrictive diet without overt s/s suggestiveof aspiration Dysphagia Retirement Goal Progress Toward Goal: Progress toward goal completion: continue on target Cognition Short Term Goal 1 Cognition Short Term Goal 1: Patient will participate in ongoing cognitive- communication assessmentas appropriate. Cognition Short Term Goal 1 Progress Toward Goal: Progress toward goal completion: continue on target Diagnosis: Impressions Dysphagia Consistent with a diagnosis of:: Within Functional Limits (WFL) Plan DYSPHAGIA RECOMMENDATIONS: Diet Recommendation-Solids: IDDSI Level 7 Regular Diet Recommendation-Liquids: IDDSI Level 0 Thin Medication Recommendation: Whole, With liquid Safety Precautions: Upright and alert during meals Small bites/sips Alternate solids and liquids Maintain excellent oral hygiene AUTOMOTIVE ELECTRICAL HELPER to continue to follow. Please page our team with questions/concerns regarding this plan of care: [phone] on weekdays or [phone] on weekends/holidays AUTOMOTIVE ELECTRICAL HELPER Ongoing Services: Ongoing formal Speech Pathology services Duration of Treatment: Until goals met Rehab Potential: Good Speech Pathology Service Pager: Dysphagia [phone] Speech Pathology Service Pager: Communication [phone] NT REPRESENTATIVE * Deloris Valenzuela, R.N. - 04/16/2023 10:20 AM CST Images from the original note were not included. SUBJECTIVE psychology teacher for discharge planning. OBJECTIVE Patient hospitalized on EI72 room 210. Destination - Admitted Since 04/02/2023 Service Provider Request Status Selected Services Address Phone Fax Patient [facility] Pending - Request Sent N/A [address] [place] [phone] -- [facility] Pending - Request Sent N/A [address] [address] [phone] -- [facility] Pending - Request Sent N/A [address] [facility] -- [facility] Pending - Request Sent N/A [address] [place] [place] [phone] -- [facility] Pending - Request Sent N/A [address], [place] [address] -- [facility] Pending - Request Sent N/A [address] [facility] [phone] -- [facility] Pending - Request Sent N/A [address] [facility] [address] [phone] -- [facility] Pending - Request Sent N/A [address] [facility] [address] [phone] -- [facility] Pending - Request Sent N/A [address] [facility] [phone] -- [facility] Pending - Request Sent N/A [address] [facility] [phone] -- [facility] Pending - Request Sent N/A [address] [place] [phone] -- [facility] Pending - Request Sent N/A [address] [place] [phone] -- Vini Brumfield Pending - Request Sent N/A [address] [place] [phone] -- [facility] Pending - Request Sent N/A [address] [facility] [phone] -- [facility] Pending - Request Sent N/A [address] [place] [address] [phone] -- [facility] Pending - Request Sent N/A [address], [facility] [phone] -- [facility] Pending - Request Sent N/A [address], [facility] [phone] -- [facility] Pending - Request Sent N/A [address] [place] [address] -- [facility] Pending - Request Sent N/A [address] [facility] [address] -- Fanta [facility] Pending - Request Sent N/A [address] [address] -- lEysia Pending - Request Sent N/A [address] [place] [address] -- [facility] Pending - Request Sent N/A [address] [place] [address] -- [facility] Pending - Request Sent N/A [address] [facility] [phone] -- [facility] Pending - Request Sent N/A [address] [facility] [address] [phone] -- [facility] [place] Pending - Request Sent N/A [address] [facility] [address] [phone] -- [facility] Pending - Request Sent N/A [address] [facility] [phone] -- [facility] Pending - Request Sent N/A [address] [facility] [address] [phone] -- [facility] Pending - Request Sent N/A [address] [facility] [phone] -- -- [facility] [place] Pending - Request Sent N/A [address] [facility] [phone] -- [facility] Pending - Request Sent N/A [address] [facility] [phone] -- [facility] Pending - Request Sent N/A [address] [facility] [address] -- [facility] Pending - Request Sent N/A [address] [facility] [address] -- [facility] Pending - Request Sent N/A [address] [facility] [phone] -- [facility] Pending - Request Sent N/A [address] [facility] [phone] -- [facility] Pending - Request Sent N/A [address] [facility] [phone] -- [facility]CO Pending - Request Sent N/A [address] [facility] [place] [place] [phone] -- [facility] Pending - Request Sent N/A [address], [place] [address] [phone] -- [facility] Pending - Request Sent N/A [address] [place] [phone] -- [facility] Pending - Request Sent N/A [address] [facility] [phone] -- [facility] Pending - Request Sent N/A [address] [place] [address] [phone] -- [facility] Pending - Request Sent N/A [address] [place] [address] [phone] -- [facility] Declined No memory care beds open N/A [address] [facility] [address] [facility] Declined Bed not available N/A [address] [facility] [address] [facility] Declined Bed not available N/A [address] [facility] [address] [phone] -- [facility] Declined Bed not available N/A [address] [facility] [address] -- ASSESSMENT / PLAN ASSESSMENT Patient and significant other (Philippe Colon) seen at [facility]. psychology teacher informed of the needat this time to send broad referrals [facility] facilities and also to [facility] facilities. Patient and significant other (Philippe Colon) were agreeable to the psychology teacher sending board referrals PLAN The patient and patient's agrees with the following plan. Patient's anticipated discharge disposition is: [facility]. Referrals sent. Transportation upon dismissal will be Care Management arranged--once medically stable . psychology teacher recommended reaching out to family, friends, and neighbors for assistance. psychology teacher provided information regarding the dismissal process. psychology teacher placed or requested the following hospital-based consult orders and/or referrals: None. psychology teacher will continue to assess for homegoing needs with the interdisciplinary team. psychology teacher encouraged the patient to reach out with any questions/concerns. Estela Valenzuela R.N. 04/16/23 NT REPRESENTATIVE * Radha Hampton, Oren.D., R.Ph. - 04/16/2023 9:26 AM CST Pharmacist Progress Note 82 y.o. female with newly diagnosed LPL/splenic MZL transferred to [facility] for treatment with rituximab. PMH: history of mild cognitive impairment, breast cancer (treated with lumpectomy and sentinel nodedissection, hypofractionated whole breast radiation, anastrozole, tamoxifen), non-melanoma skin cancer, anxiety, depression, osteopenia, and GERD OBJECTIVE Home medications Held: carbidopa-levodopa and donepezil (never started), aspirin, HCTZ, hydroquinone 4% cream, calcium-vitamin D, vitamin D3, vitamin B12 Changed: acetaminophen (changed frequency), bupropion to IR (tube administration), PPI interchange New: senna-S, MiraLAX, prochlorperazine, MV, thiamine, first mouthwash, pyridoxine Patient own medications: none VTE prophylaxis: SQH GI prophylaxis: pantoprazole Antimicrobial prophylaxis: none ASSESSMENT / PLAN #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 involving 70% bone marrow cellularity, in favor of LPL vs splenic MZL Rituximab C1D1 = 04/13 Will be given weekly x 4 doses; next dose due 04/20 #TLS Monitoring Allopurinol 300 mg daily Fluids w/ NS G6PD 04/12 adequate for rasburicase #Hypercalcemia Received prior LR, calcium trended up, recheck 04/12 11.7 (nav 12.3), ical 6.67; now resolved (04/16Ca 9.3, iCal 5.21) Gave lasix, Zometa 4 mg, and 2 doses of calcitonin on 04/12 (nausea, continued encephalopathy) NS @100 ml/hr #Dysphagia NGT placed, meds per G tube Changes to medications anticipated at discharge: New: TBD Changes: TBD Discontinue: TBD Rx approval pending: none Dispo: TBD Radha Hampton Pharm.D., R.Ph., BCOP NT REPRESENTATIVE * Sasha Alcala M.D. - 04/16/2023 6:53 AM CST Images from the original note were not included. HEMATOLOGY 3 SERVICE PROGRESS NOTE No care meat team lead to display SUBJECTIVE Darcy Colon is an 82-year-old female with medical comorbidities including mild cognitive impairment, parkinsonism, HTN, breast cancer in 2017 s/p lumpectomy and radiation, nonmelanoma skin cancer,osteopenia, B12 deficiency on supplementation, and GERD who was admitted on 04/02 for generalized weakness, confusion, and poor oral intake. 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 Interval events: No acute events overnight. VSS throughout the night. The patient took a total of 400 ml PO with a total of 2 L in and 2.1 L out. She has one large BM this morning. On my evaluation, the patient was feeling well this morning. She was sitting up in bed with her glasses on and appeared very alert. She was able to eat a cup of sherbet, some mashed potatoes, and drink water and orange juice yesterday. She feels as though it is difficult to have a strong appetite given that she was receiving tube feeds. However, she does report feeling stronger today and would like to try a regular diet texture which has been approved by our speech and dietitian colleagues. Shedenies any abdominal pain, nausea, vomiting, dyspnea. Labs: Hb 8.4, MCV 97.7 plt 64, WBC 3.4 -Na 142, K 3.5, BUN 24, Cr 1.05, calcium 9.3, iCal 5.21, phos 2.7, uric acid 4, cystatin C 1.91 with eGFR 28 OBJECTIVE VITAL SIGNS Temperature: [36.5 ??C-36.9 ??C] 36.5 ??C Resp Rate: [17-18] 17 Blood Pressure: (138-152)/(61-62) 152/62 SpO2: [95 %-96 %] 96 % Weight: [58 kg] 58 kg BMI (Calculated): [25.8 kg/m??] 25.8 kg/m?? Pulse Rate: [79-85] 85 I and O: -Net 131 ml, 2.175 L urine -large BM 04/16 PHYSICAL EXAM General: Alert, chronically ill-appearing female, sitting in bed comfortably, no acute distress Skin: Pale, warm and dry, no rashes or lesions appreciated on exposed skin Eyes: Pupils equal and reactive to light, extraocular movements intact, no scleral icterus ENT: Slightly dry lips with otherwise moist mucous membranes. Lungs: Normal work of breathing on room air, diminished breath sounds at bilateral bases but otherwise clear to auscultation. Heart: Regular rate and rhythm, occasional PVCs, no murmurs, rubs, or gallops appreciated. Abdomen: Soft, nondistended, nontender throughout the abdomen. Splenomegaly. Neuro: Generalized weakness with mild quadriparesis and generalized hyperreflexia. Bradykinesia without overt rigidity. Right foot drop. Mental: Alert and oriented to self, place, situation, month, and year. Engaged in conversation. Unable to say the months of the year backwards. DIAGNOSTICS Labs: Hb 8.4, MCV 97.7 plt 64, WBC 3.4 -Na 142, K 3.5, BUN 24, Cr 1.05, calcium 9.3, iCal 5.21, phos 2.7, uric acid 4, cystatin C 1.91 with eGFR 28 ASSESSMENT / PLAN Ms. Colon is hospitalized on Darcy Darlene is an 82-year-old female with medical comorbidities including mild cognitive impairment, parkinsonism, HTN, breast cancer in 2017 s/p lumpectomy and radiation, nonmelanoma skin cancer, osteopenia, B12 deficiency on supplementation, and GERD who was admitted on 04/02 for generalized weakness, confusion, and poor oral intake. 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 She is now day 4 of cycle 1 of rituximab, which she received on 04/13 without complications. She presented with significant hypercalcemia, which has improved with fluid resuscitation and discontinuation of calcium, vitamin-D, and hydrochlorothiazide. Otherworkup for hypercalcemia has remained negative. Hypercalcemia to this degree is not typically associated with splenic marginal zone lymphoma, however, PET-CT does not suggest that there evidence of diffuse large B-cell transformation or another available site biopsy. If hypercalcemia recurs, additional tissue diagnosis may be indicated. She will continue on rituximab with next dose planned on 04/20. Big picture horta, the patient remains severely functionally debilitated with inability to perform self transfers and significant generalized weakness leading to dysphagia. Speech therapy evaluation on 04/13 did not reveal overt oropharyngeal dysphagia and more so just revealed generalized weakness limiting p.o. intake, which has been supplemented with tube feeds. The patient has been appearing more alert daily, and is interested in trying a regular diet texture in order to better supplement p.o.nutrition. She will continue to work with PT, OT, and speech therapy. We have encouraged the patient to prioritize eating by mouth in order to avoid long-term enteral feeding if able. The patient will need a [facility] facility or [facility] acute care facility in between infusions of rituximab. However, plan will be to remain in the hospital until next infusion on 04/20. Transfuse to keep hemoglobin > 7 and platelets > 10. Patient does not require premed prior toRBCs and platelets. 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-cycle 1, day 3 of weekly rituximab # Macrocytic anemia # Thrombocytopenia # History of breast cancer Workup: -PET-CT: Moderately FDG avid splenomegaly and diffuse bone marrow activities suspicious for lymphoproliferative process -Bone marrow biopsy: Involved by a CD5 negative, CD10 negative B-cell lymphoproliferative disorder,kappa light chain restricted, 70% hypercellularity -MRI brain w/o PATIENT REGISTRATION REP involvement -Folate and B12 normal -Fat pad biopsy negative for amyloid -Beta-2 microglobulin: 12.10 Plan: -Anemia and thrombocytopenia likely 2/2 bone marrow suppression -Cycle 1 weekly rituximab (D1,8,15,22); day 4, next dose 04/20 -FISH and next generation sequencing pending -Continue allopurinol x 10 days (04/12-04/21) # Hypercalcemia-resolved # Hypokalemia # [id number] likely a component of CKD based on cystatin C Workup: -1,25 hydroxy vitamin D 66 -PTH <6 -PTHrP negative -S/p total of 15 L of fluid, lasix 20 mg IV x2, Zometa, and calcitonin x2 -Ca 9.3, iCal 5.21 - Creatinine 1.05, cystatin C1 0.9 with EGFR 28 -UA negative Plan: -Encourage oral intake -hold off on additional fluids given euvolemia and hypercalcemia resolved -Trend cystatin C # Toxic metabolic encephalopathy-improving # Delirium # Mild cognitive impairment # Parkinsonism Workup: -MRI brain and spine negative for lymphoma involvement -Amyloid negative -B6 and thiamine deficiency -EMG and nerve conduction studies negative for large fiber neuropathy or polyradiculopathy -Autoimmune paraneoplastic eval with very mildly elevated GAD65 Ab Plan: - KB previously evaluated: - AMS possibly 2/2 underlying neurodegenerative disorder which has been compounded by nutritional deficiencies - Requires OP follow up after discharge # Malnutrition Severe Protein-Calorie (HCC) # Vitamin B6 Deficiency # Thiamine deficiency # 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 # Dysphagia -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, has overall labial weakness without any overt oropharyngeal dysphagia -Advance to regular diet -NG in place for supplemental feeds given overall generalized weakness -Nutren 1.5 continuous, with goal rate 40 mL/hr -free water flushes 30 mL 4 times daily -Wean tube feeds as able, encourage PO intake - Completed course of IV thiamine; continue supplement via gastric tube - Continue multivitamin - PT/OT/Speech consulted # Hypertension Essential Primary - Hold home HCTZ given hypercalcemia, monitor BP # Gastroesophageal Reflux Disease Without Esophagitis - Nexium daily through G tube # Generalized anxiety disorder - Continue bupropion and escitalopram # Glaucoma - Continue brimonidine, dorzolamide-timolol, and ketorolac ophthalmic solution # Elevated Alkaline Phosphatase - ALK stably elevated - Monitor LFTs intermittently Current Activity/Mobility: BMAT Level 2 (Able to extend knee but cannot stand; needs lift equipment) Fall Injury Prevention: I have discussed My Plan for Safe Activity with the patient. Diet: dysphagia and tube feeds diet Tubes/lines: Lines, Drains, and Airways Drain Duration GI Tubes (Adults) Nasogastric 10 Fr Nare;Right 9d 21h External Urinary Catheter Female 10d 17h Peripheral IV Duration Peripheral IV 04/07/23 20 G Anterior;Lower;Right Forearm 8d 22h VTE prophylaxis: heparin Disposition: [facility] Facility with expected discharge date Surrogate Decision Maker: Spouse, Gerhard Stable to discharge criteria (not met): Functional status Severe Malnutrition The patient meets the ASPEN Criteria of malnutrition based on: Energy Intake: Less than or equal to 75% of estimated energy requirement for greater than or equal to 1 month Interpretation of Weight Loss: greater than 5% 1 month Body Fat: Mild Loss Muscle Mass: Mild Loss This is in the context of Chronic Illness. Malnutrition Present Upon Admission: Yes Agree with Registered Dietitian's assessment and treatment plan: Interventions: Medical food supplement, Increase nutrient intake with small, frequent meals and/or snacks, Assess oral intake with calorie count Plan discussed with Hematology 3 Support Associate, Lambert Kaiser M.D., who was present during the keyportions of the evaluation today. [place] [phone] with any questions. Sasha Alcala MD PGY-2, Internal Medicine NT REPRESENTATIVE Associated attestation - Lambert Roy M.D. - 04/17/2023 2:46 PM CLIENT REPRESENTATIVE I saw and evaluated the patient, participating in the jorge portions of the service. I reviewed the resident/fellow???s note. I agree with the resident/fellow???s findings and plan. * José Allison M.B.BAdalidS. - 04/15/2023 11:34 AM CST Hematology 3 Supervisory Note This is an attestation note. I saw and evaluated the patient, and participated in the jorge portions of the discussion during the Hematology 3 service rounds today. I reviewed the Hematology 3 service resident note and discussed the findings and plan. Hematology History The patient is an 82-year-old female with the following history. The patient had history of breast cancer in 2017. The patient had COVID-19 infection in February of 2023. This was followed by an episode of diverticulitis and urinary tract infections. The patient presented in 2023 with generalized weakness, encephalopathy, a calcium of 13.7, thrombocytopenia, metabolic alkalosis, elevated creatinine, parkinsonism, gait instability, and mild essential tremor. An MRI of the brain on April 05, 2023 revealed no intracranial findings. A PET scan demonstrated significant splenomegaly with moderate FDG activity with an SUV of 5.9. A bone marrow aspirate and biopsy was performed on April 06, 2013. This revealed a low-grade B cell lymphoproliferative disorder comprising 70% of the bone marrow cellularity. Flow cytometry demonstrated a CD5 negative, CD10 negative lymphoproliferative disorder with kappa light chain restriction. There was an IgM kappa paraprotein consistent with a lymphoplasmacytic lymphoma or marginal zone lymphoma. The patient had a documented thiamine deficiency. The patient was evaluated by Neurology. On April 10, 2023, the hemoglobin is 9.0 grams/deciliter, plateletcount 66820, and white count 3800. The creatinine was 1.09. The calcium normalized with steroids. It was then 10.7 on April 10, 2023. Hepatitis B and C antibody studies were negative. The quantitative IgM level was 792. The COVID-19 test was negative on April 11, 2013. The patient was transferred for anti CD20 monoclonal antibody therapy. She received rituximab therapy without any complications, the plan is to continue with a total of 4 weekly courses. 24-hour events The patient has continued to remain hemodynamically stable. She was sitting up in the chair this morning on rounds. She continues to have an NG tube in place through which she receives nutrition. Shehas been tolerating oral intake reasonably well, although she has not been eating and drinking a lot. Assessment 82-year-old female with a history of splenic marginal zone lymphoma admitted due to hypercalcemia, with a new diagnosis of splenic marginal zone lymphoma, this plans to receive 4 weekly courses of rituximab Plan Continue supportive care measures at this time; serum calcium is much better. Next dose of rituximab is due on April 20, 2023. Continue physical therapy, occupational therapy, speech therapy evaluation. Hypercalcemia is not typically associated splenic marginal zone lymphoma, the PET scan does not suggest that there is any other place for a biopsy that can be completed at this time. If the hypercalcemia recurs, this issue may need to be revisited. NT REPRESENTATIVE * Sasha Alcala M.D. - 04/15/2023 7:12 AM CST Images from the original note were not included. HEMATOLOGY 3 SERVICE PROGRESS NOTE No care meat team lead to display SUBJECTIVE Darcy Colon is an 82-year-old female with medical comorbidities including mild cognitive impairment, parkinsonism, HTN, breast cancer in 2017 s/p lumpectomy and radiation, nonmelanoma skin cancer,osteopenia, B12 deficiency on supplementation, and GERD who was admitted on 04/02 for generalized weakness, confusion, and poor oral intake. She was found to have significant hypercalcemia with workup indicative of a lymphoplasmacytic proliferative disorder, splenic marginal zone lymphoma vs Waldenstrom's macroglobulinemia. Interval events: No acute events overnight. VSS throughout the night. Maintenance fluids were held and the patient was given Lasix 20 mg IV yesterday due to signs of volume overload on exam. This morning, the patientfeels well. She was alert and oriented and engaged in conversation. She endorsed having dry mouth but otherwise denied any complaints this morning. Her said that she did not eat much yesterday and was relying almost solely on tube feeds for nutrition. She denied shortness of breath, abdominal pain nausea, vomiting, chest pain, palpitations, dizziness, lightheadedness. She endorses having a BM yesterday but has no recorded stool output since 04/09. Labs: Hb 8.1, MCV 100.8, plt 58, WBC 3.7 -Na 144, K 3.3, bicarb 26, BUN 27, Cr 1.31, phos 2.7, total calcium 9.5, iCal 5.45, uric acid 5.3 -Cystatin C 2.06, eGFR 26 OBJECTIVE VITAL SIGNS Temperature: [36 ??C-37.2 ??C] 37 ??C Resp Rate: [15-20] 17 Blood Pressure: (101-152)/(53-67) 152/67 SpO2: [93 %-96 %] 93 % Pulse Rate: [66-79] 79 I and O: -Net negative 1 L after lasix administration -No recorded BM since 04/09 PHYSICAL EXAM General: Alert, chronically ill-appearing female, lying in bed comfortably, no acute distress Skin: Pale, warm and dry, no rashes or lesions appreciated on exposed skin Eyes: Pupils equal and reactive to light, extraocular movements intact, no scleral icterus ENT: Slightly dry lips with otherwise moist mucous membranes. Lungs: Normal work of breathing on room air, diminished breath sounds at bilateral bases but otherwise clear to auscultation. Heart: Regular rate and rhythm, no murmurs, rubs, or gallops appreciated. Abdomen: Soft, nondistended, nontender throughout the abdomen. Splenomegaly. Neuro: Generalized weakness with mild quadriparesis and generalized hyperreflexia. Bradykinesia without overt rigidity. Right foot drop. Mental: Alert and oriented to self, place, situation, month, and year. Engaged in conversation. Unable to say the months of the year backwards. DIAGNOSTICS -Hb 8.1, MCV 100.8, plt 58, WBC 3.7 -Na 144, K 3.3, bicarb 26, BUN 27, Cr 1.31, phos 2.7, total calcium 9.5, iCal 5.45, uric acid 5.3 -UA negative for other causes of DIDIER -Cystatin C 2.06, eGFR 26 ASSESSMENT / PLAN Ms. Colon is hospitalized on Darcy Darlene is an 82-year-old female with medical comorbidities including mild cognitive impairment, parkinsonism, HTN, breast cancer in 2017 s/p lumpectomy and radiation, nonmelanoma skin cancer, osteopenia, B12 deficiency on supplementation, and GERD who was admitted on 04/02 for generalized weakness, confusion, and poor oral intake. She was found to have significant hypercalcemia with workup indicative of a lymphoplasmacytic proliferative disorder, splenic marginal zone lymphoma vs Waldenstrom's macroglobulinemia. Overall, the working diagnosis for the patient's underlying lymphoproliferative disorder a splenic marginal zone lymphoma, stage IV with bone marrow involvement. She is now day 3 of cycle 1 of rituximab, which she received on 04/13 without complications. She presented with significant hypercalcemia,which has improved with fluid resuscitation and discontinuation of calcium, vitamin-D, and hydrochlorothiazide. Other workup for hypercalcemia has remained negative. While hypercalcemia can be present in malignancy, hypercalcemia to this degree would not be consistent with splenic marginal zone lymphoma, and would be more consistent with a transformation to diffuse large B-cell lymphoma. However,PET- CT does not suggest this. The overall plan is to continue her on rituximab if functional statusallows and assess her response. If she does not respond appropriately to rituximab, consideration will have to be made for obtaining further tissue to assess for transformation. Big picture horta, the patient remains severely functionally debilitated with inability to perform self transfers and significant generalized weakness leading to dysphagia. Speech therapy evaluation on 04/13 did not reveal overt oropharyngeal dysphagia and more so just revealed generalized weakness limiting p.o. intake. We will continue on supplemental tube feeds via NG tube with dysphagia diet andencourage the patient to prioritize eating by mouth in order to avoid long-term enteral feeding. Wewill continue physical and occupational therapy as well. Overall, the patient will need [facility] facility at discharge given significant functional debility. Maintenance fluids were held in the patient was given Lasix on 04/14 given evidence of mild hypovolemia. Today, she appears more euvolemic. We will hold fluids this morning and encourage the patient to drink to thirst. If fluids are required for hypercalcemia, we will monitor closely for signs of volume overload and administer Lasix if needed. Transfuse to keep hemoglobin > 7 and platelets > 10. Patient does not require premed prior toRBCs and platelets. 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-cycle 1, day 3 of weekly rituximab # Macrocytic anemia # Thrombocytopenia # History of breast cancer Workup: -PET-CT: Moderately FDG avid splenomegaly and diffuse bone marrow activities suspicious for lymphoproliferative process -Bone marrow biopsy: Involved by a CD5 negative, CD10 negative B-cell lymphoproliferative disorder,kappa light chain restricted, 70% hypercellularity -MRI brain w/o PATIENT REGISTRATION REP involvement -Folate and B12 normal -Fat pad biopsy negative for amyloid -Beta-2 microglobulin: 12.10 Plan: -Anemia and thrombocytopenia likely 2/2 bone marrow suppression -Cycle 1 weekly rituximab (D1,8,15,22); day 3 -FISH and next generation sequencing pending -Continue allopurinol x 10 days (04/12-04/21) -Monitor TLS labs q8h # Hypercalcemia-improving # Hypokalemia # DIDIER Workup: -1,25 hydroxy vitamin D 66 -PTH <6 -PTHrP negative -S/p total of 15 L of fluid, lasix 20 mg IV x2, Zometa, and calcitonin x2 -Calcium improving, total calcium 9.5, ionized calcium 5.45 - Creatinine 1.31 this morning, K 3.3 -CXR 04/14: Increased pulmonary vascular congestion -UA negative Plan: -Encourage oral intake -Monitor volume status, give lasix with fluids if signs of hypervolemia -Give fluids as slow boluses rather than maintenance if needed -TLS labs and iCal q8h # Toxic metabolic encephalopathy # Delirium # Mild cognitive impairment # Parkinsonism Workup: -MRI brain and spine negative for lymphoma involvement -Amyloid negative -B6 and thiamine deficiency -EMG and nerve conduction studies negative for large fiber neuropathy or polyradiculopathy -Autoimmune paraneoplastic eval with very mildly elevated GAD65 Ab Plan: - KB previously evaluated: - AMS possibly 2/2 underlying neurodegenerative disorder which has been compounded by nutritional deficiencies - Requires OP follow up after discharge # Malnutrition Severe Protein-Calorie (HCC) # Vitamin B6 Deficiency # Thiamine deficiency # 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 # Dysphagia - Meets ASPEN Criteria of malnutrition; agree with RD's assessment and recommendations -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, has overall labial weakness without any overt oropharyngeal dysphagia -Soft and bite sites foods with thin liquids -NG in place for supplemental feeds given overall generalized weakness -Nutren 1.5 continuous, with goal rate 40 mL/hr -free water flushes 30 mL 4 times daily - Encourage PO intake - Completed course of IV thiamine; continue supplement via gastric tube - Continue multivitamin - PT/OT/Speech consulted # Hypertension Essential Primary - Hold home HCTZ given hypercalcemia, monitor BP # Gastroesophageal Reflux Disease Without Esophagitis - Continue pantoprazole IV due to dysphagia # Generalized anxiety disorder - Continue bupropion and escitalopram # Glaucoma - Continue brimonidine, dorzolamide-timolol, and ketorolac ophthalmic solution # Elevated Alkaline Phosphatase - ALK stably elevated - Monitor LFTs intermittently Current Activity/Mobility: BMAT Level 2 (Able to extend knee but cannot stand; needs lift equipment) Fall Injury Prevention: I have discussed My Plan for Safe Activity with the patient. Diet: dysphagia and tube feeds diet Tubes/lines: Lines, Drains, and Airways Drain Duration External Urinary Catheter Female 9d 16h GI Tubes (Adults) Nasogastric 10 Fr Nare;Right 8d 20h Peripheral IV Duration Peripheral IV 04/07/23 20 G Anterior;Lower;Right Forearm 7d 22h VTE prophylaxis: heparin Disposition: [facility] Facility with expected discharge date Surrogate Decision Maker: Spouse, Gerhard Stable to discharge criteria (not met): Functional status Severe Malnutrition The patient meets the ASPEN Criteria of malnutrition based on: Energy Intake: Less than or equal to 75% of estimated energy requirement for greater than or equal to 1 month Interpretation of Weight Loss: greater than 5% 1 month Body Fat: Mild Loss Muscle Mass: Mild Loss This is in the context of Chronic Illness. Malnutrition Present Upon Admission: Yes Agree with Registered Dietitian's assessment and treatment plan: Interventions: Medical food supplement, Increase nutrient intake with small, frequent meals and/or snacks, Assess oral intake with calorie count Plan discussed with Hematology 3 Support Associate, José Roberson M.B.B.S., who was present duringthe ojrge portions of the evaluation today. [place] H[place] 3 [place] [phone] with any questions. Sasha Alcala MD PGY-2, Internal Medicine NT REPRESENTATIVE * Sasha Alcala M.D. - 04/14/2023 1:47 PM CST Images from the original note were not included. HEMATOLOGY 3 SERVICE TRANSFER ACCEPTANCE NOTE No care meat team lead to display SUBJECTIVE Darcy Colon is an 82-year-old female with medical comorbidities including mild cognitive impairment, parkinsonism, HTN, breast cancer in 2017 s/p lumpectomy and radiation, nonmelanoma skin cancer,osteopenia, B12 deficiency on supplementation, and GERD who was admitted on 04/02 for generalized weakness, confusion, and poor oral intake. She was found to have significant hypercalcemia with workup indicative of a lymphoplasmacytic proliferative disorder, splenic marginal zone lymphoma vs Waldenstrom's macroglobulinemia. Prior to admission: The patient had COVID at the beginning of February followed by diverticulitis and urinary tract infection both requiring hospitalization while in [place]. Workup during these hospitalizations revealedsplenomegaly. With each hospitalization, the patient continued to decline with decreased appetite, generalized weakness, and progressive encephalopathy. She was previously independent and able to driv e, which progressed to difficulty communicating and understanding conversations, inability to mobilize independently, and sleeping all day. Given her continued decline, her and her flew back to [place] and presented to the [facility] ED on 04/02 for these concerns. ED Course: Vitals were stable on arrival. Labs were notable for mild pancytopenia with hemoglobin 11.6, platelets 69, WBC 4.4, K 2.7, calcium 13.7, creatinine 1.14 (baseline 0.9). Examination was notable for encephalopathy and macroglossia. She was provided with 1 L of fluid in the emergency department and admitted to the Medicine 2 service. Med 2 Course: Hematology: Abdominal ultrasound on 04/[address] head revealed age- indeterminate left basal ganglia lacunar infarct with otherwise no acute intracranial findings. MRI brain 04/05 was negative for acute intracranial findings and had no evidence of lymphoma. PET-CT 04/06 revealed moderately FDG konstantin d splenomegaly and diffuse bone marrow activities suspicious for a lymphoproliferative disorder along with moderate left pelvocaliectasis with retention of FDG activity in the collecting system to the level of the left UPJ. Bone marrow biopsy on 04/06 revealed a CD /CD 10 negative, kappa-restrictive,low- grade B-cell lymphoplasmacytic lymphoproliferative disorder-splenic marginal zone lymphoma versus Waldenstrom's macroglobulinemia. She was transferred to [facility] on 04/12 and received her 1st doseof rituximab on 04/13. Hypercalcemia: The patient was noted to be on calcium, vitamin-D supplementation, and hydrochlorothiazide at home.The combination of these medications along with dehydration was thought to be the likely cause of her hypercalcemia. These medications were held and she was given IV and oral rehydration with improvement in hypercalcemia. Workup including hypovitaminosis D, paraneoplastic etiology, and hyperparathyroidism were negative. Encephalopathy: The patient was noted to demonstrate a subacute and progressive encephalopathy over the past 1-2 months exacerbated by COVID-19 infection in February 2023. This was in the background of mild cognitiveimpairment and parkinsonism type features. Neurology was consulted. 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 Neurology felt her altered mental status was possibly secondary to an underlying neurodegenerative disorder compounded by nutritional deficiencies. Nutrition: She was noted to have severe malnutrition upon admission. She was seen by nutrition in an NG-tube was placed on 04/06. She was initiated on tube feeds, which was complicated by refeeding syndrome. Vitamin B6 level was low and was supplemented. She was initially given thiamine at high IV doses givenher encephalopathy. PT/OT and speech were consulted given her significant debility as well as concern for dysphagia contributing to poor oral intake. Her oropharyngeal swallow was within functional limits but she did have overall general debility with swallowing. NG-tube was kept in place for supplemental feedings with a soft and bite size diet. She transferred to the hematology 3 service on 04/14 following 1st dose of rituximab infusion. On myevaluation, she was alert and oriented to self, place, month, and year. However, she would frequently dose off during our conversation and often looked to her to answer most questions. She describes feeling slightly nauseous, which improved following administration of Compazine. She otherwise denied dyspnea, cough, palpitations, chest pain, abdominal pain, dizziness, lightheadedness. Her does note that she appears to have developing lower extremity edema, which is not usually anissue for her. OBJECTIVE VITAL SIGNS Temperature: [36 ??C-37.3 ??C] 36 ??C Resp Rate: [12-20] 15 Blood Pressure: (107-137)/(49-77) 127/56 SpO2: [92 %-100 %] 95 % Pulse Rate: [65-89] 69 PHYSICAL EXAM General: Drowsy, chronically ill-appearing female, lying in bed comfortably, no acute distress Skin: Pale, warm, and dry, no rashes or lesions appreciated on exposed skin Eyes: Pupils equal and reactive to light, extraocular movements intact, no scleral icterus ENT: Moist mucous membranes Lymph: No cervical or supraclavicular lymphadenopathy appreciated Lungs: Normal work of breathing on room air. Crackles heard throughout bilateral mid and lower lungfields. Heart: Regular rate and rhythm, no murmurs, rubs, or gallops appreciated. Abdomen: Soft, nondistended, nontender throughout the abdomen, bowel sounds present. Splenomegaly. Neuro: Generalized weakness with mild quadriparesis and generalized hyperreflexia. Bradykinesia. Difficulty holding limbs against gravity. Mental: Alert and oriented to self, place, month, and year. Drowsy and easily falls asleep during conversation, slow responses. CAM positive, inattentive ASSESSMENT / PLAN Darcy oClon is an 82-year-old female with medical comorbidities including mild cognitive impairment, parkinsonism, HTN, breast cancer in 2017 s/p lumpectomy and radiation, nonmelanoma skin cancer,osteopenia, B12 deficiency on supplementation, and GERD who was admitted on 04/02 for generalized weakness, confusion, and poor oral intake. She was found to have significant hypercalcemia with workup indicative of a lymphoplasmacytic proliferative disorder, splenic marginal zone lymphoma vs Waldenstrom's macroglobulinemia. Overall, the working diagnosis for the patient's underlying lymphoproliferative disorder a splenic marginal zone lymphoma, stage IV with bone marrow involvement. She is now day 2 of cycle 1 of rituximab, which he received on 04/13 without complications. She presented with significant hypercalcemia, which has improved with fluid resuscitation and discontinuation of calcium, vitamin-D, and hydrochlorothiazide. Other workup for hypercalcemia has remained negative. While hypercalcemia can be presentin malignancy, hypercalcemia to this degree would not be consistent with splenic marginal zone lymphoma, and would be more consistent with a transformation to diffuse large B-cell lymphoma. However, PET- CT does not suggest this. The overall plan is to continue her on rituximab if functional status allows and assess her response. If she does not respond appropriately to rituximab, consideration will have to be made for obtaining further tissue to assess for transformation. Big picture horta, the patient remains severely functionally debilitated with inability to perform self transfers and significant generalized weakness leading to dysphagia. We will continue on supplemental tube feeds via NG tube with dysphagia diet. Brief discussion has been had about consideration for PEG tube with the patient was unable to maintain oral intake. Discussed with the patient's today that further discussions on this will have to be had in the coming days if functional status does not improve. We will continue physical and occupational therapy as well. Overall, the patientwill likely need [facility] facility at discharge given significant functional debility. On my exam, the patient appears mildly volume overloaded with mild lower extremity edema. She was crackles on chest x-ray which could be pulmonary edema versus atelectasis. Chest x-ra does suggest increased pulmonary vascular congestion, which maybe secondary to receiving fluid resuscitation. She was a total 7 L up this hospitalization. We will discontinue her continuous fluids and provide gentlediuresis with Lasix to offload some of this extra volume. Transfuse to keep hemoglobin > 7 and platelets > 10. Patient does not require premed prior toRBCs and platelets. 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-cycle 1, day 2 of weekly rituximab # Macrocytic anemia # Thrombocytopenia # History of breast cancer Workup: -PET-CT: Moderately FDG avid splenomegaly and diffuse bone marrow activities suspicious for lymphoproliferative process -Bone marrow biopsy: Involved by a CD5 negative, CD10 negative B-cell lymphoproliferative disorder,kappa light chain restricted, 70% hypercellularity -MRI brain w/o PATIENT REGISTRATION REP involvement -Folate and B12 normal -Fat pad biopsy negative for amyloid -Beta-2 microglobulin: 12.10 Plan: -Anemia and thrombocytopenia likely 2/2 bone marrow suppression -Cycle 1 weekly rituximab (D1,8,15,22); day 2 -FISH and next generation sequencing pending -Continue allopurinol x 10 days (04/12-04/21) -Monitor TLS labs q8h # Hypercalcemia-improving # Hypokalemia # DIDIER Workup: -1,25 hydroxy vitamin D 66 -PTH <6 -PTHrP negative -S/p total of 15 L of fluid, lasix 20 mg IV x1, Zometa, and calcitonin x2 -Calcium improving, total calcium 9.0, ionized calcium 5.49 - Creatinine 1.54 this morning, 1.35 this afternoon. K 3.4 -CXR 04/14: Increased pulmonary vascular congestion Plan: -Concern for mild volume overload given lower extremity edema, crackles on pulmonary exam, and increased pulmonary vascular congestion -Discontinue maintenance fluids -gentle diuresis with Lasix 20 mg IV once -UA to assess for other causes of DIDIER -TLS labs and iCal q8h # Toxic metabolic encephalopathy # Delirium # Mild cognitive impairment # Parkinsonism Workup: -MRI brain and spine negative for lymphoma involvement -Amyloid negative -B6 and thiamine deficiency -EMG and nerve conduction studies negative for large fiber neuropathy or polyradiculopathy -Autoimmune paraneoplastic eval with very mildly elevated GAD65 Ab Plan: - KB previously evaluated: - AMS possibly 2/2 underlying neurodegenerative disorder which has been compounded by nutritional deficiencies - Requires OP follow up after discharge # Malnutrition Severe Protein-Calorie (HCC) # Vitamin B6 Deficiency # Thiamine deficiency # 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 # Dysphagia - Meets ASPEN Criteria of malnutrition; agree with RD's assessment and recommendations -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, has overall labial weakness without any overt oropharyngeal dysphagia -Soft and bite sites foods with thin liquids -NG in place for supplemental feeds given overall generalized weakness -Nutren 1.5 continuous, with goal rate 40 mL/hr -free water flushes 30 mL 4 times daily - Completed course of IV thiamine; continue supplement via gastric tube - Continue multivitamin - PT/OT/Speech consulted # Hypertension Essential Primary - Hold home HCTZ given hypercalcemia, monitor BP # Gastroesophageal Reflux Disease Without Esophagitis - Continue pantoprazole IV due to dysphagia # Generalized anxiety disorder - Continue bupropion and escitalopram # Glaucoma - Continue brimonidine, dorzolamide-timolol, and ketorolac ophthalmic solution # Elevated Alkaline Phosphatase - ALK stably elevated - Monitor LFTs intermittently Current Activity/Mobility: BMAT Level 2 (Able to extend knee but cannot stand; needs lift equipment) Fall Injury Prevention: I have discussed My Plan for Safe Activity with the patient. Diet: Tube feeds, dysphagia diet Tubes/lines: Lines, Drains, and Airways Drain Duration External Urinary Catheter Female 8d 18h GI Tubes (Adults) Nasogastric 10 Fr Nare;Right 7d 22h Peripheral IV Duration Peripheral IV 04/07/23 20 G Anterior;Lower;Right Forearm 7d 0h Wound Duration Wound 04/13/23 Intertriginous Dermatitis Rectum mild 1d 2h VTE prophylaxis: heparin Disposition: [facility] Facility with expected discharge date unknown Stable to discharge criteria (not met): Functional status Severe Malnutrition The patient meets the ASPEN Criteria of malnutrition based on: Energy Intake: Less than or equal to 75% of estimated energy requirement for greater than or equal to 1 month Interpretation of Weight Loss: greater than 5% 1 month Body Fat: Mild Loss Muscle Mass: Mild Loss This is in the context of Chronic Illness. Malnutrition Present Upon Admission: Yes Agree with Registered Dietitian's assessment and treatment plan: Interventions: Medical food supplement, Increase nutrient intake with small, frequent meals and/or snacks, Assess oral intake with calorie count Plan discussed with Hematology 3 Support Associate, José Roberson M.B.B.S., who was present duringthe jorge portions of the evaluation today. [place]ematology [place] [phone] with any questions. Sasha Alcala MD PGY-2, Internal Medicine NT REPRESENTATIVE * Ariel Sevilla M.D. - 04/14/2023 1:19 PM CST I reviewed, met, and examined the patient. I concur with the history, physical examination and planof YUMI Miller on April 14, 2023. Today is hospital day on Hematology 1 service + 2. Today is day +12 Hospital Service total. Today is day +1 anti CD20 monoclonal antibody therapy. The patient is an 82-year-old female with the following history. The patient had history of breast cancer in 2017. The patient had COVID-19 infection in February of 2023. This was followed by an episode of diverticulitis and urinary tract infections. The patient presented in 2023 with generalized weakness, encephalopathy, a calcium of 13.7, thrombocytopenia, metabolic alkalosis, elevated creatinine, parkinsonism, gait instability, and mild essential tremor. An MRI of the brain on April 05, 2023 revealed no intracranial findings. A PET scan demonstrated significant splenomegaly with moderate FDG activity with an SUV of 5.9. A bone marrow aspirate and biopsy was performed on April 06, 2013. This revealed a low-grade B cell lymphoproliferative disorder comprising 70% of the bone marrow cellularity. Flow cytometry demonstrated a CD5 negative, CD10 negative lymphoproliferative disorder with kappa light chain restriction. There was an IgM kappa paraprotein consistent with a lymphoplasmacytic lymphoma or marginal zone lymphoma. The patient had a documented thiamine deficiency. The patient was evaluated by Neurology. On April 10, 2023, the hemoglobin is 9.0 grams/deciliter, plateletcount 79213, and white count 3800. The creatinine was 1.09. The calcium normalized with steroids. It was then 10.7 on April 10, 2023. Hepatitis B and C antibody studies were negative. The quantitative IgM level was 792. The COVID-19 test was negative on April 11, 2013. The patient was transferred for anti CD20 monoclonal antibody therapy. There were no new toxicities over night. The laboratory evaluation revealed the following. The hemoglobin is 8.0, platelet count sixty-threethousand common white count 4900. The absolute lymphocyte count dropped from 1472 800. The sodium was 146. The creatinine went from 1.37-1.54. The ionized calcium went from 5.61 to 5.49 (5.43 mg/dL). The physical examination revealed the following. General: Performance score 2. The patient was ill-appearing. Lymph nodes: None palpable. Abdomen: No hepatomegaly. There was splenomegaly. Neurologic:Cognitive impairment. Impression: 1. Lymphoplasmacytic lymphoproliferative disorder, Waldenstrom's macroglobulinemia versus splenic marginal zone lymphoma, stage IV 2. Cytopenia secondary to marrow involvement 3. Hypercalcemia 4. Cognitive impairment Plan: 1.Anti-CD20 monoclonal antibody therapy. 2. We will arrange transfer to a general medical service. Discussion: I discussed the case with 3 family members this morning on rounds. At this time, the working diagnosis is splenic marginal zone lymphoma, stage IV with bone marrow involvement. However, the concern is the hypercalcemia. Hypercalcemia is not consistent with this diagnosis. Hypercalcemia would be consistent with a transformation to diffuse large B-cell lymphoma. We discussed the role of rituximab in marginal zone lymphoma (Leandro ME, Curt F, Barrington RD, Lebron LI, Hebert ROBIN, Di GARCIA, Josiah LJ, Chely SJ, Farshad BETH, Mark SPEARS, Lico SE, Chantell M, Susan WC, Epi SJ, Mio BS. Rituximab extended schedule or retreatment trial for low tumour burden non- follicular indolent B-cell non-Hodgkin lymphomas: [employer] Protocol E4402. Br J Haematol. 2016 Ander; 173 (6):867-75). If the patient does not adequately respond, then consideration will be given to obtaining further tissue. NT REPRESENTATIVE * Ariel Sevilla M.D. - 04/13/2023 4:45 PM CST I reviewed, met, and examined the patient. I concur with the history, physical examination and planof YUMI Miller on April 13, 2023. Today is hospital day on Hematology 1 service + 1. Today is day +11 Hospital Service total. Today is day +0 anti CD20 monoclonal antibody therapy. The patient is an 82-year-old female with the following history. The patient had history of breast cancer in 2017. The patient had COVID-19 infection in February of 2023. This was followed by an episode of diverticulitis and urinary tract infections. The patient presented in 2023 with generalized weakness, encephalopathy, a calcium of 13.7, thrombocytopenia, metabolic alkalosis, elevated creatinine, parkinsonism, gait instability, and mild essential tremor. An MRI of the brain on April 05, 2023 revealed no intracranial findings. A PET scan demonstrated significant splenomegaly with moderate FDG activity with an SUV of 5.9. A bone marrow aspirate and biopsy was performed on April 06, 2013. This revealed a low-grade B cell lymphoproliferative disorder comprising 70% of the bone marrow cellularity. Flow cytometry demonstrated a CD5 negative, CD10 negative lymphoproliferative disorder with kappa light chain restriction. There was an IgM kappa paraprotein consistent with a lymphoplasmacytic lymphoma or marginal zone lymphoma. The patient had a documented thiamine deficiency. The patient was evaluated by Neurology. On April 10, 2023, the hemoglobin is 9.0 grams/deciliter, plateletcount 80060, and white count 3800. The creatinine was 1.09. The calcium normalized with steroids. It was then 10.7 on April 10, 2023. Hepatitis B and C antibody studies were negative. The quantitative IgM level was 792. The COVID-19 test was negative on April 11, 2013. The patient was transferred for anti CD20 monoclonal antibody therapy. There were no new toxicities over night. The laboratory evaluation revealed the following. The hemoglobin was 8.1 grams/deciliter, platelet count 85931, and white count 3700. The metabolic panel revealed that the creatinine went from 1.30-1.40. The potassium was 4.1. The ionized calcium was 6.09. The physical examination revealed the following. General: Performance score 2. The patient was ill-appearing. Lymph nodes: None palpable. Abdomen: No hepatomegaly. There was splenomegaly. Neurologic:Cognitive impairment. Impression: 1. Lymphoplasmacytic lymphoproliferative disorder, Waldenstrom's macroglobulinemia versus splenic marginal zone lymphoma 2. Cytopenia secondary to marrow involvement 3. Hypercalcemia 4. Cognitive impairment Plan: 1.Anti-CD20 monoclonal antibody therapy. NT REPRESENTATIVE * Danita Fitzpatrick L.G.S.W., M.S.W. - 04/13/2023 4:20 PM CST SUBJECTIVE New care management consults received for patient in [facility] regarding discharge planning and potential need for rehab. Per patient's Hematology service, she will transfer back to an internal medicine service tomorrow for further care and management. Social Work will follow-up with estrellita hyman and her provider team Sunday for clarity on discharge planning needs. Patient's current location: [facility], room 210. OBJECTIVE Darcy Colon is an 82 y.o. female who was admitted on 04/02 and recently diagnosed with splenic marginal zone lymphoma with plan to initiate weekly rituximab. ASSESSMENT / PLAN ASSESSMENT Patient not assessed today. PLAN Social Work will continue to follow patient for psychosocial support and discharge planning needs. Madeleine Garcia, M.S.W. 04/13/23 NT REPRESENTATIVE * Drew Arellano P.T., D.P.T., [facility] - 04/13/2023 2:21 PM CST Physical Therapy Inpatient Treatment Note SUBJECTIVE Patient's Name: Darcy Colon Referring/Attending: Ariel Sevilla M.D. Medical Diagnosis: Hypercalcemia [E83.52] Hypokalemia [E87.6] Weakness General [R53.1] Lymphoma (HCC) [C85.90] Reason for Referral: PT Evaluate and Treat PT Evaluate and Treat - General Acute Onset Date: 04/02/23 Payor: MEDICARE / Plan: MEDICARE A AND B / Product Type: Medicare / History of Present Illness: Ms. Colon is hospitalized on [place] [id number] ([facility]) for evaluation and management of progressive weakness and confusion. Medical comorbidities include history of mild cognitive impairment, breast cancer in remission, non-melanoma skin cancer, anxiety, depression, osteopenia, and GERD. Please see electronic medical record for full past medical history. Family/Caregiver Present: Yes Patient/Caregiver Goals: no goals stated Patient Comments: Darcy was supine in bed upon PT arrival and with some encouragement was agreeable to physical therapy today. She notes she is feeling nauseous. Precautions Other Precautions: Fall Risk, decreased functional use of right upper extremity dominant hand; generalized weakness; double vision, aspiration precautions OBJECTIVE Vital Signs: Blood Pressure 136/56 mmHg Mean Arterial Pressure 76 mmHg Pulse Rate 78 bpm Oxygen Saturation 93 % Treatment consisted of: Bed Mobility - Supine to Sit # of Assistants: 1 Level of Assistance: Minimal assistance Device: Bed rail, Head of bed elevated Cuing: Verbal, Tactile Comments: Patient required minimal assistance to transfer from supine to sitting, cuing for safe technique Bed Mobility - Sit to Supine # of Assistants: 1 Level of Assistance: Moderate assistance Device: Bed rail Cuing: Verbal, Tactile Comments: Patient required moderate assistance to transfer from sitting to supine; verbal/tactile cueing for safe technique Bed Mobility - Scooting # of Assistants: 1 Level of Assistance: Moderate assistance Device: None Cuing: Verbal, Visual Comments: Patient required moderate assistance with movement of her lower extremities to scoot forward to the edge of the bed The patient/family educated on safe transfer techniques with functional mobility/activity. Patient's nurse was contacted and patient's status was discussed Inpatient AVS Complete - PT: No Patient was left in bed at end of session with call light in reach, all needs met and questions answered. Outcome Measures AM-PAC Inpatient Short Form: AM-PAC Basic Mobility (V.2) How much help from another person do you currently need???If the patient hasn't done an activity recently, how much help from another person do you think he/she would needif he/she tried? 1. Turning from your back to your side while in a flat bed without using bedrails?: A Lot 2. Moving from lying on your back to sitting on the side of a flat bed without using bedrails?: A Lot 3. Moving to and from a bed to a chair (including a wheelchair)?: A Lot 4. Standing up from a chair using your arms (e.g., wheelchair, or bedside chair)?: A Lot 5. To walk in hospital room?: A Lot 6. Climbing 3-5 steps with a railing?: Total [facility] Basic Mobility (V.2) Raw Score: 11 -[facility] Basic Mobility (V.2) Standardized Score: 30.25 Interpretation: Clinicians answer the [facility] Inpatient Short Form based on observed patient activity and/or clinical judgement (ie. patient can be scored without physically performing each activity) Based on scoring guidelines using the raw score value: Those going to home had an average score at or above 18 Those going to facility had an average score at or below 17 Assessment Discharge Therapy Needs - PT: Ongoing skilled physical therapy Skilled therapy can include physical therapy provided by home health, outpatient clinic, or a post-acute facility. The location of these services is determined by the patient's care team in partnership with patient/family. Level of Care Needed - PT: Assistance with transfers (Comment), Assistance with walking and moving around the home, Assistance with bed mobility, Assistance with stairs, Cognitive assistance needed, Physical assistance needed Equipment Recommended - PT: Hospital bed, Wheelchair, Mechanical lift Barriers to Discharge Home: Current functional status, Fall risk, Inaccessible home environment, Safety concerns, Limited caregiver support, Limited caregiver availability Barriers to Discharge Comments: 2 stairs to enter residence. From a physical therapy perspective, the level of care above has been recommended for Ms. Colon after hospital discharge. This level of care is based on her functional abilities during today's session. This may change throughout the hospital course and will be updated as appropriate. Clinical Impression of today's session: Christa unfortunately tolerated today's session very poorly. After transferring from supine to sitting with assistance she began to feel nauseous and had an episode of emesis. I called nursing staff for assistance and once she was ready helped her transfer back to supine in bed. She was unable to continue the session after this due to weakness needing to complete nursing cares. Hopefully in future ses sions this will be more under control and she can participate more fully. Continued skilled physical therapy is appropriate and recommended to address the patient's remaining impairments and progresstowards their goals. Rehab potential: Ms. Colon has Good potential to achieve established physical therapy goals withinthe time frame outlined below. Progress: Slow progress, limited activity tolerance, Slow progress, cognitive deficits Functional Goals and Timeframes: PT Inpatient Goals PT Goal #1: Patient will be able to complete all bed mobility independently with no physical assistand no verbal cues necessary in order to facilitate return to PLOF. PT Goal #1 Status: Progressing PT Goal #2: Patient will be able to complete STS transfer from edge of bed to standing modified independent utilizing front wheel walker for assist, in order to allow for functional transfers at home. PT Goal #2 Status: Progressing PT Goal #3: Patient will be able to ambulate 30m modified independent utilizing front wheel walker for assist, in order to allow for functional ambulation upon DC. PT Goal #3 Status: Slowly progressing PT Goal #4: Patient will be able to safely navigate 2 stair(s) under supervision in order to allow access into/to all levels of their home prior to discharge. PT Goal #4 Status: Ongoing Plan Patient agrees with the plan of care and goals. Treatment Plan: Plan: Continue with current plan PT Frequency: PT Frequency: 5 times per week PT Inpatient Duration : Until goals are met or hospital discharge Requires Inpatient Follow-Up: Yes PT - Next Inpatient Appointment: 04/16/23 PT Plan Comments: Continue to progress mobility, transfers, ambulation, balance and safety. Stair training when appropriate. 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 Wound assessment, pain, and Kavon score noted in the flowsheet. History per note review: Ms. Darcy Colon is a 82 y.o. female who presented to the ED on 04/02/23 for progressive generalized weakness, confusion and poor oral intake. Upon evaluation she was found to have mild pancytopenia, hypercalcemia and hypokalemia. She was admitted to the Medicine 2 service at [facility] for further evaluation. She had extensive neurology work up for encephalopathy that has overall been unrevealing. US on 04/03 revealed splenomegaly. Brain MRI on 04/05 was negative for acute intracranial findings and had no evidence of lymphoma. 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 PET scan on 04/06 revealed moderately FDG avid splenomegaly and diffuse bone marrow uptake along with moderate left pelvocaliectasis with retention of FDG activity in the collecting system to the level of the left UPJ. She transferred to Hem 1 service on 04/12 to initiate treatment with single agent rituximab. PMH: infiltrating ductal breast carcinoma s/p lumpectomy and radiation (2017), nonmelanoma skin cancer, osteopenia, B12 deficiency on supplementation, parkinsonism, mild cognitive impairment, depression, anxiety, migraines, restless leg syndrome, glaucoma 04/13/23 1115 Wound 04/13/23 Intertriginous Dermatitis Rectum mild Date First Assessed/Time First Assessed: 04/13/23 1115 Primary Wound Type: Intertriginous Dermatitis Location: Rectum Wound Description (Comments): mild *Wound Bed Closed;Epithelium Odor None *Exudate Amount None Taylor-wound Assessment Rash;[place];Intact *Primary Dressing Open to air Ongoing management Nursing General Focused assessment completed to area of concern and along dependent pressure points along side lying position. No other areas of breakdown/irritation noted by nursing at the bedside. DRESSING RECOMMENDATIONS: #1 Intertriginous Dermatitis Rectum mild (1) Cleanse the affected area(s) with foam cleanser and dampened WypAlls, being sure to remove all of the previous product. Pat dry completely. (2) If rash remains present, apply a thin layer of Nystatin powder to the affected area(s), dust ofexcess powder. (3) Apply a thin, translucent layer of Zinc Oxide Paste (PROTECT/Z Guard) to the affected area. Paste DOES NOT need to be cleansed away completely each time. ONLY soiled areas of the paste need to beremoved with cleansing when underlying tissue is friable. (4) Complete skin care BID and prn. Recommended interventions for pressure redistribution and shear reduction: Offload heels on pillows at all times when in bed. Full 30 degree turns side to side every 2 hours with supine positioning only for meals. Reposition at least every hour while in the chair. Reposition medical devices per policy. Assess and pad the skin under and surrounding the medical devices with a prophylactic foam dressing. Keep the HOB below 30 degrees except for meals unless medically contraindicated. Apply a prophylactic sacral Mepilex?? border dressing to cover the coccyx/sacral area. Ensure the dressing is in full contact with the skin to prevent moisture- related skin breakdown. Lift twice daily to assess when used for prevention. Change every 3 days and PRN. Utilize a ROHO cushion when up to the chair. Recommended interventions for moisture control: Utilize the breathable incontinence underpads while in bed. Adult briefs should only be worn while ambulating or in the chair. Cleanse with foaming cleanser or wipes after each incontinence episode and for routine hygiene cares. Apply Zinc Oxide Paste (PROTECT/Z Guard). Reapply after each incontinence episode and routine hygiene cares as directed. Apply antifungal powder twice daily. Consult recommendations: NA Education: Discussed the plan of care with the patient and nursing. They agree to the plan. The C RN will sign-off. Please place a wound care consult for any new concerns. Electronically signed by: Fatoumata Morris R.N., Lisa.W.C.NAdalid, CRRN 04/13/23 3:16 PM CLIENT REPRESENTATIVE Pager: [phone] Weekend Wound Pager: [phone]) NT REPRESENTATIVE * Arelen Díaz - 04/13/2023 9:44 AM CST Occupational Therapy Acute Hospital Inpatient Treatment SUBJECTIVE Patient's Name: Darcy Colon Referring/Attending Provider: Ariel Sevilla M.D. Reason for Referral: Occupational Therapy Evaluation and Treatment History of Present Illness: Darcy Colon is a 82 y.o. female who was admitted to [facility] in [place] on 04/02/2023 for Hypercalcemia [E83.52] Hypokalemia [E87.6] Weakness General [R53.1] Lymphoma (HCC) [C85.90]. Precautions Other Precautions: Fall Risk, decreased functional use of right upper extremity dominant hand; generalized weakness; double vision, aspiration precautions Pain Assessment: Pain not reported during session. Patient was unable to report pain on a 1-10 scale after 3 verbal cues were given. Subjective Comments: Agreeable to therapy session. Team Communication: The patient's status was discussed and coordination of care occurred with coil winder/Caregiver Present: Patient's was present during session and was a helpful historian. OBJECTIVE Vital Signs: During Activity: Pulse Rate: 90 bpm Blood Pressure: 135/78 mmHg O2: 94% Patient's vitals were taken when seated at edge of bed during activity. Outcome Measures: [facility] Inpatient Short Form: Putting on and taking off regular lower body clothing?: Total Putting on and taking off regular upper body clothing?: Total Taking care of personal grooming such as brushing teeth?: Total Bathing (including washing, rinsing, drying)?: Total Toileting, which includes using toilet, bedpan, or urinal?: Total Eating meals?: Total Daily Activities Raw Score (max 24): 6 Daily Activities Standardized Score: 17.07 Interpretation: Based on scoring guidelines using the raw score value: Those going to home had an average score at or above 18 Those going to facility had an average score at or below 17 Clinicians answer the [facility] Inpatient Short Form based on observed patient activity and/or clinical judgement (ie. patient can be scored without physically performing each activity) Cognition: Observable concerns with cognition and further assessment is warranted Therapeutic Interventions: BED MOBILITY: SUPINE to SIT - Assist Level: Moderate Assist, x 2 - Device: use of bed rail, head of bed elevated - Therapist Delivery: facilitated - Assist/Cues: verbal for sequencing, proper leg placement Patient engaged in supine to sit bed mobility while lying supine in bed and required moderate assist x 2. Occupational therapist was placed on right side of patient and RN was place on left side of placement to assist with trunk support. Patient required 3 verbal cues for sequencing and walking legs over to edge of bed. Patient required moderate assist from OT and RN to assist with trunk support when successful with bed mobility. Therapist facilitated bed mobility for proper sequencing and safety precautions. SIT to SUPINE - Assist Level: Minimal Assist, x 2 - Device: use of bed rail, head of bed elevated - Therapist Delivery: instructed - Assist/Cues: verbal for technique Patient was seated at edge of bed and required minimal assist x 2 for sit to supine transfer. Patient required OT in front of patient to help support trunk for base of support. OT instructed patient to grab bed rails to initiate log roll technique to perform bed mobility. RN was positioned behind Patient for safety and to replace wedge under patient's left hip. Patient required 2 verbal cues for walking her legs back to the center of the bed and required minimal assist from OT for technique. Patient was successful with task. Education Provided: Provided education on role of occupational therapy in the acute setting. Collaborated with patient and/or family on goals and plan of care. Patient was left in bed at end of session with call light in reach, all needs met and questions answered. Assessment Discharge Therapy Needs - OT: Ongoing skilled occupational therapy Skilled therapy can include occupational therapy provided in home health, outpatient or post-acute facility. The location of these services is determined by patient's care team in partnership with patient/family. Barriers to Discharge Home: Current functional status, Fall risk, Inaccessible home environment, Safety concerns, Limited caregiver availability Level of Care Needed - OT: Assistance with toileting, Assistance with dressing, Assistance with toilet/shower transfers, Assistance with meal preparation, Physical assistance needed, Assistance with medication set up/administration, Assistance with personal financial advisor, Assistance with transportation, Assistance with showering/bathing, Assistance with housekeeping, Assistance with eating/feeding,Assistance with shopping, Cognitive assistance needed Clinical Impression: Currently, patient present with impairments including decreased functional strength, impaired static and dynamic standing balance, decreased safety and independence with functional mobility, diminished activity tolerance, pain that limits activity, and reduced range of motion that has limited engagement in ADLs and IADLs. Patient was sleeping/drowsy upon therapist arrival. Patient's was present during session today and was a valid historian to present patient's current challenges to therapist. Patient was A&O x 2 during session and appeared to have challenges adhering to questionsdue to level of drowsiness. Patient required 3-step commands to initiate bed mobility and required moderate assist x 2 for safety and completion. Patient was able to successfully sit at edge of bed with minimal assist with trunk support. Patient required verbal cues to keep her eyes open throughoutsession. Patient would benefit from further cognitive exams once patient is more alert and oriented. Patient will work on standing tolerance at edge of bed in order for her to reengage in meaningful o ccupations. The patient will benefit from ongoing inpatient occupational therapy services at this time. Plan OT Plan Comments: Plan for next session includes increase dynamic edge of the bed sitting balance and tolerance; Increase functional use of right upper extremity in self feeding + oral cares, seated grooming, trunk/core strengthening exercises at EOB, bed mobility, progress transfers/mobilty as able ; progress standing tolerance (with use of Martir Steady or FWW), caregiver training and as needed Functional Goals: OT Goal #1: Patient will demonstrate all functional transfers with stand by assist to progress towards baseline. OT Goal #1 Status: Ongoing OT Goal #2: Patient will demonstrate total body dressing and toileting with minimal assistance of 1to progress towards baseline. OT Goal #3: Patient will increase functional use of right upper extremity in self feeding+ groomingwith minimal assist to increase independence and self reliance in self cares. OT Goal #3 Status: Slowly progressing OT Goal #4: Patient will tolerate sitting unsupported at EOB for greater than 30 minutes to facilitate independent participation in self-cares (grooming, feeding, upper body dressing). OT Goal #4 Status: Progressing Progress: Slow progress, limited activity tolerance Rehab potential: Ms. Colon has good potential to achieve established occupational therapy goals within the time frame outlined below. OT Frequency: OT Amount: 1 visit per day OT Frequency: 5 times per week OT Inpatient Duration : Until goals are met or hospital discharge Requires Inpatient OT Follow-Up: Yes OT - Next Inpatient Appointment: 04/16/23 Plan: Continue with current plan Treatment interventions may include: Treatment Interventions: Self-care/home management Occupational Therapy Attestation Statement: Patient agrees with the plan of care and goals. Billing: Time Spent with Patient Therapeutic Interventions Home Management Training (min): 18 min Time Tracking Total Timed Units (min): 18 min Total Treatment Time (min): 18 min Arleen Díaz OTS NT REPRESENTATIVE Associated attestation - Fiorella Fitch M.S., O.T. - 04/13/2023 3:03 PM CLIENT REPRESENTATIVE This therapist has reviewed all documentation and supervised today???s session. The therapist agrees with the plan developed in collaboration with the patient. * Becka Zhu Pharm.D., R.Ph. - 04/13/2023 7:36 AM CST Pharmacist Progress Note 82 y.o. female with newly diagnosed LPL/splenic MZL transferred to [facility] for treatment with rituximab. PMH: history of mild cognitive impairment, breast cancer (treated with lumpectomy and sentinel nodedissection, hypofractionated whole breast radiation, anastrozole, tamoxifen), non-melanoma skin cancer, anxiety, depression, osteopenia, and GERD OBJECTIVE Home medications Held: carbidopa-levodopa and donepezil (never started), aspirin, HCTZ, hydroquinone 4% cream, calcium-vitamin D, vitamin D3, vitamin B12 Changed: acetaminophen (changed frequency), bupropion to IR (tube administration), PPI interchange New: senna-S, MiraLAX, prochlorperazine, MV, thiamine, first mouthwash, pyridoxine Patient own medications: none VTE prophylaxis: SQH GI prophylaxis: pantoprazole Antimicrobial prophylaxis: none ASSESSMENT / PLAN #Splenic MZL/LPL BMBx: low grade lyphoproliferative disorder involving 70% bone marrow cellularity, in favor of LPL vs splenic MZL Rituximab C1D1 = 04/13 Will be given weekly x 4 doses #TLS Monitoring Allopurinol 300 mg daily Fluids w/NS G6PD 04/12 adequate for rasburicase #Hypercalcemia Received prior LR, calcium trended up, recheck 04/12 11.7 (nav 12.3), ical 6.67 Gave lasix, Zometa 4 mg, and 2 doses of calcitonin on 04/12 (nausea, continued encephalopathy) NS @100 ml/hr #Dysphagia NGT placed, meds per G tube Changes to medications anticipated at discharge: New: TBD Changes: TBD Discontinue: TBD Rx approval pending: none Dispo: TBD Becka Marko, Pharm.D., R.Ph., BCOP NT REPRESENTATIVE * Vitor Casas P.A.-C., M.S. - 04/13/2023 4:22 AM CST HEMATOLOGY 1 SERVICE (service pager [phone]) SUBJECTIVE EVENTS OVER THE LAST 24 HOURS No acute events overnight. Did not receive Rituxan last evening due to late transfer. present at bedside. Patient fatigued this morning which is baseline per . Plan for Rituxan today and transfer back to HIM likely tomorrow if tolerated well. No active nausea or vomiting. No fever orchills, chest pain, shortness of breath, abdominal pain, lightheadedness, headaches or mentation changes. No active bleeding. REVIEW OF SYSTEMS A 10 point system review was performed and negative other than as stated in the HPI. OBJECTIVE VITAL SIGNS Temperature: [36.2 ??C-37.2 ??C] 36.9 ??C Resp Rate: [14-16] 14 Blood Pressure: (132-160)/(56-79) 132/60 SpO2: [94 %-96 %] 96 % Pulse Rate: [74-82] 82 PHYSICAL EXAM General: Alert, lying in bed, no acute distress. Skin: Intact, no visible rashes or bleeding. Eyes: Sclera white, non-injected. Pupils equal, no strabismus or ptosis. ENT: Mucous membranes pink and moist. No oral lesions or ulcerations. Heart: Regular rate and rhythm. No appreciable edema. Perfusing extremities well. Lungs: Respiration rate even, unlabored. All lobes clear to auscultation. Abdomen: Soft, non tender, non distended with active bowel sounds. Neuro: No obvious focal deficits present. Psych: Appropriate mood and affect. No acute delirium or agitation. ASSESSMENT / PLAN Ms. Darcy Colon is a 82 y.o. female who presented to the ED on 04/02/23 for progressive generalized weakness, confusion and poor oral intake. Upon evaluation she was found to have mild pancytopenia, hypercalcemia and hypokalemia. She was admitted to the Medicine 2 service at [facility] for further eval uation. She had extensive neurology work up for encephalopathy that has overall been unrevealing. US on 04/03 revealed splenomegaly. Brain MRI on 04/05 was negative for acute intracranial findings and had no evidence of lymphoma. Bone marrow biopsy on 04/06 revealed low-grade B-cell lymphoproliferative disorder compromising 70% of marrow cellularity, given morphologic features and IgM kappa paraproteinpathology favors lymphoplasmacytic lymphoma. PET scan on 04/06 revealed moderately FDG avid splenomegaly and diffuse bone marrow uptake along with moderate left pelvocaliectasis with retention of FDG activity in the collecting system to the level of the left UPJ. She transferred to Hem 1 service on 04/12 to initiate treatment with single agent rituximab. PMH: infiltrating ductal breast carcinoma s/p lumpectomy and radiation (2016), nonmelanoma skin cancer, osteopenia, B12 deficiency on supplementation, parkinsonism, mild cognitive impairment, depression, anxiety, migraines, restless leg syndrome, glaucoma Transfuse to keep hemoglobin > 7 and platelets > 10. Patient does not require premedications prior to RBCs and platelets. 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 # Thrombocytopenia (HCC) - Cycle 1 weekly rituximab (D1,8,15,22); day 1 - Chromosome, NGS, and Beta-2 microglobulin pending - Continue allopurinol x 10 days (04/12-04/21) - Monitor TLS labs q8h - Follow up will need to be arranged # Unspecified Dementia Unspecified Severity Without Behavioral Disturbance 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) # Parkinsonism Unspecified (HCC) # Encephalopathy Metabolic - KB previously evaluated: - AMS possibly 2/2 underlying neurodegenerative disorder which has been compounded by nutritional deficiencies - Requires OP follow up after discharge - See note 04/11 # Hypercalcemia # Elevated Creatinine - Received prior LR, Ca trended up, now trending down s/p lasix, Zometa, and calcitonin x2 - Cr remains stably elevated - Continue NS @100 mL/hr # Malnutrition Severe Protein-Calorie (HCC) # 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 # Dysphagia - Meets ASPEN Criteria of malnutrition; agree with RD's assessment and recommendations - Currently has NG and requiring tube feeds - Completed course of IV thiamine - Continue MVT - PT/OT/Speech consulted # Hypertension Essential Primary - Hold home HCTZ # Elevated Alkaline Phosphatase - ALK stably elevated - Continue to trend LFTs # Gastroesophageal Reflux Disease Without Esophagitis - Continue pantoprazole IV due to dysphagia # Anxiety Disorder Unspecified - Continue bupropion and escitalopram # Glaucoma - Continue brimonidine, dorzolamide-timolol, and ketorolac ophthalmic solution # History Of Malignant Neoplasm Of Breast Female Left (HCC) - L-sided invasive ductal carcinoma in 2017 (ER+, WY+, HER2-) - Tamoxifen previously DC'd due to SEs COVID-19 Inpatient Hematology Screening - COVID-19 testing should occur 24-96 hours prior to chemotherapy (as outpatient for planned admissions and immediately for unplanned admissions) - Pre chemotherapy COVID-19 test was Undetected- Date 04/11/2022 Activity: PAMP Level 2 (chairbound, staff moves patient to chair TID) VTE prophylaxis: heparin Blood transfusions: Informed consent for blood product transfusions will need to be completed upon the first required blood component administration during this admission. Surrogate Decision Maker: Spouse, Philippe Colon [phone] Disposition: Will require SNF for nursing needs, CM following. HIM previously agreed to take patient back on their service after first dose of rituximab. NT REPRESENTATIVE * Minerva Albarran M.D. - 04/12/2023 5:06 PM CST I met with Mrs. Colon and her at bedside. 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 Primary therapeutic support staff will be Dr. Sevilla. We discussed a systemic approach to therapy using rituximab. We reviewed this systemic therapy, including the rationale, schedule, need for regular follow up, and that a clinically meaningful and/or durable response was not guaranteed. We discussed some possible adverse effects, including but not limited to infusion reaction, nausea,vomiting, diarrhea, constipation, fatigue, neuropathy, cytopenias, bleeding, thrombosis, infections, mucositis, and changes in hair/skin/nails. We also discussed that there may be adverse effects on various organ systems, including but not limited to the bone marrow. We also discussed that this therapy and/or related adverse events could lead to , and that it is impossible to foresee every potential sequelae. Printed material was provided for further review. After discussion, the patient elected to proceed with systemic therapy. Her was in agreement. We discussed the need to present for emergency evaluation if a fever and/or an acute clinical change develops while on systemic therapy. Supportive medications have been ordered and the importance ofregular intake, bowel movements, hydration, activity as tolerated, and social engagement have been emphasized. We also discussed that it may be helpful to have a blood pressure machine, pulse oximeter, and thermometer for at home monitoring if/when needed. Mrs. Colon is currently also having issues with nausea and hypercalcemia. Suspect her nausea is likely due to mass effect on her stomach and her hypercalcemia. We are addressing the hypercalcemia with fluids, calcitonin and BMA and have ordered an abdominal x-ray to further assess. Plan to start rituximab in the AM once the above issues have been addressed and to avoid overnight infusion of rituximab given high rates of infusion reactions. Minerva Albarran MD Fellow, Hematology-Medical Oncology NT REPRESENTATIVE * Becka Suarez P.A.-C. - 04/12/2023 3:14 PM CST TRANSFER ACCEPTANCE NOTE HEMATOLOGY 1 SERVICE (service pager [phone]) SUBJECTIVE EVENTS OVER THE LAST 24 HOURS She arrived via [facility] and immediately vomited her tube feeds on arrival. She felt it came out ofno where. She does endorse ongoing confusion but was able to tell us she is in [place], her name and date of and that yesterday was 's day. We reviewed the plan to correct her calcium today and give Rituximab. Her last documented bowel movement was on 04/09/23. She states has visionchanges and reports she has been having visual perception issues for the past several months. REVIEW OF SYSTEMS A 10 point review of systems was completed and found to be negative except as listed in the HPI. OBJECTIVE VITAL SIGNS Temperature: [36.2 ??C-37.2 ??C] 36.2 ??C Resp Rate: [13-16] 14 Blood Pressure: (132-147)/(56-75) 132/56 SpO2: [94 %-96 %] 94 % Pulse Rate: [74-80] 74 PHYSICAL EXAM Constitutional: Malnourished appearing female in no acute distress. Skin: Warm and dry. ENT: NG in right nare. Moist mucous membranes. Cardiac: Regular rate and rhythm, no murmur, rub or gallop. Lungs: Lungs sounds clear to auscultation bilaterally. No wheezes, rales or rhonchi. Abdomen: Splenomegaly. Mild tenderness to palpation. Bowel sounds present. Extremities: Bilateral lower extremity edema. Moves all 4 independently. Neurological: Alert and oriented to person and place, unable to spell lunch backwards. Psychiatric: Appropriate affect. ASSESSMENT / PLAN Ms. Darcy Colon is a 82 y.o. female who presented to the ED on 04/02/23 for progressive generalized weakness, confusion and poor oral intake. Upon evaluation she was found to have mild pancytopenia, hypercalcemia and hypokalemia. She was admitted to the Medicine 2 service at [facility] for further eval uation. She had extensive neurology work up for encephalopathy that has overall been unrevealing.. An U/S on 04/03/23 revealed splenomegaly. A brain MRI on 04/05/23 was negative for acute intracranial findings and had no evidence of lymphoma. A bone marrow biopsy on 04/06/23 revealed low-grade B-cell lymphoproliferative disorder compromising 70% of marrow cellularity, given morphologic features and IgMkappa paraprotein pathology favors lymphoplasmacytic lymphoma. A PET scan on 04/06/23 revealed moderately FDG avid splenomegaly and diffuse bone marrow anxiety along with moderate left pelvocaliectasiswith retention of FDG activity in the collecting system to the level of the left UPJ. She transferred to the hematology 1 service on 04/12/23 to initiate treatment with single agent Rituximab. 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 Patient does not require premedicationsprior to RBCs and platelets. 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 #3 Thrombocytopenia (HCC) - Cycle 1 Day 1 of weekly Rituxan planned for 04/13/23 - Dyas 1, 8, 15 and 22: Rituximab - Chromosome and Myeloid Neoplasm NGS pending from 2/9/24 - Continue allopurinol for 10 day course (04/12/23-04/21/23) - Monitor TLS labs q8 hours - G6PD assessed on 04/12/23 - okay to use rasburicase - Hep B, Hep C and HIV titers assessed on 04/12/23 - negative - Beta-2 Microglobulin obtained on 04/12/23 - pending - Follow up will need to be arranged #4 Encephalopathy Metabolic #5 Parkinsonism Unspecified (HCC) #6 Unspecified Dementia Unspecified Severity Without Behavioral Disturbance 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) - Neurology previously evaluated and extensive work up completed - see sign off note from 04/11/23 - Requires outpatient followup with neurology following dismissal - Final results from PATIENT REGISTRATION REP demyelinating and autoimmune myelopathy panels pending from 04/05/23 #7 Hypercalcemia #8 Elevated Creatinine - Total Calcium 11.7 on 04/12/23 - corrected for albumin it is 12.3 - Ionized Calcium 6.67 on 04/12/23 - Creatinine 1.35 on 04/12/23, baseline around 1.1 - Received 1L of lactated Ringers on 04/12/23 - will follow with 20 mg IV lasix - Initiate 100 ml/hr 0.9% normal saline and reassess daily - Administer zoledronic acid on 04/12/23 #9 Malnutrition Severe Protein-Calorie (HCC) #10 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 #11 Dysphagia - Currently has NG and requiring tube feeds - Requires PEG if no improvement in nutritional intake - [employer] consulted - Completed course of IV Thiamine - Continue multivitamin - PT/OT/Speech consulted - Case management consulted - HIM previously agreed to take patient back on their service between rituximab doses = #12 Nausea and Vomiting - PRN Compazine and Zofran - Tube feed bolus decreased on for evening of 04/12/23 due to emesis #13 Hypertension Essential Primary - Home hydrochlorothiazide held on admission #14 Elevated Alkaline Phosphatase - ALK trended up to 181 on 04/12/23 - ALK isoenzymes ordered for 04/13/23 #14 Malignant Neoplasm Of Breast Female Left (HCC) - History of - History of ER Positive/WY Positive, HER-2 negative left-sided breast invasive ductal carcinoma [id number] - Tamoxifen previously discontinued due to side effects #15 Gastroesophageal Reflux Disease Without Esophagitis - Pantoprazole (IV due to dysphagia) interchanged for home omeprazole due to formulary #16 Anxiety Disorder Unspecified - Continue bupropion and escitalopram per home regimen #17 Glaucoma Continue eye drop regimen with brimonidine, dorzolamide-timolol and ketorolac ophthalmic solution #18 Lentigo - Home hydroquinone not ordered upon admission Severe Malnutrition The patient meets the ASPEN Criteria of malnutrition based on: Energy Intake: Less than or equal to 75% of estimated energy requirement for greater than or equal to 1 month Interpretation of Weight Loss: greater than 5% 1 month Body Fat: Mild Loss Muscle Mass: Mild Loss This is in the context of Chronic Illness. Malnutrition Present Upon Admission: Yes Agree with Registered Dietitian's assessment and treatment plan: Interventions: Medical food supplement, Increase nutrient intake with small, frequent meals and/or snacks, Assess oral intake with calorie count COVID-19 Inpatient Hematology Screening - COVID-19 testing should occur 24-96 hours prior to chemotherapy (as outpatient for planned admissions and immediately for unplanned admissions) - Pre chemotherapy COVID-19 test was Undetected- Date 04/11/2023 Activity: PAMP Level 2 (chairbound, staff moves patient to chair TID) VTE prophylaxis: heparin Blood transfusions: Informed consent for blood product transfusions will need to be completed upon the first required blood component administration during this admission. Surrogate Decision Maker: Spouse, Philippe Colon [phone] Disposition: Will require SNF for nursing needs NT REPRESENTATIVE * Santiago Mejía M.D., M.S. - 04/12/2023 11:29 AM CST Brief Hematology Consult Service Progress Note Ms. Darcy Colon is a 82 y.o. female with a history of mild cognitive impairment followed by Neurology, breast cancer 2017s/p lumpectomy and radiation, nonmelanoma skin cancer, osteopenia, B12 deficiency on supplementation, and GERD who is admitted to the medicine service for hypercalcemia in the setting of failure to thrive. We were consulted given new pancytopenia and splenomegaly with hypercalcemia. Her bone marrow biopsy has shown a low-grade B-cell lymphoproliferative disorder. We have discussedthis with Dr. Thapa and Dr. 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 Given her age/ frailty, Rituximab would be appropriate to start, and the plan is for tentatively rituximab weekly X 4 doses. She will be transferred to the Heme-1 service today for her 1st dose. The setting of future doses is to be determined by the respective primary teams based on her functional status. On her flow cytometry, a small kappa light chain restricted B-cell population was detected that represents approximately 3% of the total analyzed events. M-protein mass-fix on urine was negative for a monoclonal protein. M-protein MALDI-TOF serum had shown small monoclonal IgM kappa. We had recommended obtaining a 24-hour urine protein with immunoglobulins, but this is limited by patient's incontinence requiring a Lyon for 24 hour collection. If continence improves and a Lyon is not needed, would recommend obtaining the 24-hour urine. Discussed with Dr. Thapa. Please page [phone] with questions. Santiago Mejía MD MS PGY-2 Internal Medicine NT REPRESENTATIVE * Jade Chávez, DanishaTRodolfo. - 04/12/2023 11:25 AM CST Physical Therapy Inpatient Treatment SUBJECTIVE Patient's Name: Darcy Colon Referring/Attending Provider: Raymond Jaimes M.D. Reason for Referral: Physical Therapy Evaluate and Treat History of Present Illness: Darcy Colon is a 82 y.o. female who was admitted to [facility] in [place] on 04/02/2023 for Hypercalcemia [E83.52] Hypokalemia [E87.6] Weakness General [R53.1] Lymphoma (HCC) [C85.90] Precautions Other Precautions: Fall Risk, decreased functional use of right upper extremity dominant hand; generalized weakness; double vision, aspiration precautions Pain Assessment: Patient states I hurt all over but agrees that it is tolerable to participate in physical therapy Patient/Caregiver Goals: Decrease pain, Return to home, and Return to highest level of function Subjective Comments: agreed to session. OBJECTIVE Vital Signs Vitals monitored throughout session; within normal ranges. Outcome Measures: AM-PAC Inpatient Short Form: AM-PAC Basic Mobility (V.2) How much help from another person do you currently need???If the patient hasn't done an activity recently, how much help from another person do you think he/she would needif he/she tried? 1. Turning from your back to your side while in a flat bed without using bedrails?: A Lot 2. Moving from lying on your back to sitting on the side of a flat bed without using bedrails?: A Lot 3. Moving to and from a bed to a chair (including a wheelchair)?: A Little 4. Standing up from a chair using your arms (e.g., wheelchair, or bedside chair)?: A Little 5. To walk in hospital room?: A Lot 6. Climbing 3-5 steps with a railing?: Total [facility] Basic Mobility (V.2) Raw Score: 13 [facility] Basic Mobility (V.2) Standardized Score: 33.99 Interpretation: Based on scoring guidelines using the raw score value: Those going to home had an average score at or above 18 Those going to facility had an average score at or below 17 Clinicians answer the [facility] Inpatient Short Form based on observed patient activity and/or clinical judgement (ie. patient can be scored without physically performing each activity) Therapeutic Interventions: ROLLING: Assistance Level: Supervision of 1 Device: bedrail Assistance/Cueing: verbal for Technique Delivery: educated, instructed, and assessed SUPINE TO SIT: Assistance Level: Supervision of 1 Device: bedrail Assistance/Cueing: verbal for Technique Delivery: educated, instructed, and assessed SIT TO STAND: Assistance Level: Contact Guard Assistance of 1 Device: gait belt and front wheeled walker Surface: Bed Assistance/Cueing: verbal for Anterior weight shifting and Upper extremity placement Delivery: educated, instructed, and assessed STAND TO SIT: Assistance Level: Contact Guard Assistance of 1 Device: gait belt and front wheeled walker Surface: Chair Assistance/Cueing: verbal for Eccentric control and Upper extremity placement Delivery: educated, instructed, and assessed GAIT: Distance: 2 meters Minimal Assistance of 1 Device: gait belt and front wheeled walker Quality: decreased heel strike, decreased step length, downward gaze, forward flexed posture, shuffling Assistance/Cueing:verbal for Forward gaze, Placement of gait aid, and Upright posture Comments: Patient generally steady for brief ambulation between bed and chair, benefitting from cues for walker management and upright posture. THERAPEUTIC EXERCISE: Seated Therapeutic Exercise: Side: bilateral, lower extremity(ies) Mode: active assistive range of motion and active range of motion Exercises: Long arc quads, Marching, Seated heel raises, and Seated toe raises Repetitions: 2x5 Assist/cueing: Cues for technique and pacing, caregiver instruction completed with spouse Philippe. Active assistive range of motion needed to achieve terminal knee extension with long arc quads Education: -Role of PT in acute setting and collaborated with patient and/or family on goals and plan of care. -Safe transfer techniques -Home exercise program The patient/family educated on safe transfer techniques with functional mobility/activity. The patient's status was discussed and the following coordination of care occurred with the: coil winder/Caregiver Family/Caregiver Present: spouse Philippe Patient was left in bedside chair at end of session with call light in reach, all needs met and questions answered. Assessment Discharge Therapy Needs - PT: Ongoing skilled physical therapy Skilled therapy can include physical therapy provided by home health, outpatient clinic, or a post-acute facility. The location of these services is determined by the patient's care team in partnership with patient/family. Level of Care Needed - PT: Assistance with transfers (Comment), Assistance with walking and moving around the home, Assistance with bed mobility, Assistance with stairs, Cognitive assistance needed, Physical assistance needed Equipment Recommended - PT: Hospital bed, Wheelchair, Mechanical lift Barriers to Discharge Home: Current functional status, Fall risk, Inaccessible home environment, Safety concerns, Limited caregiver support, Limited caregiver availability Barriers to Discharge Comments: 2 stairs to enter residence. From a physical therapy perspective, the level of care above has been recommended for Ms. Colon after hospital discharge. This level of care is based on her functional abilities during today's session. This may change throughout the hospital course and will be updated as appropriate. Clinical Impression: Dot presents with impairments including decreased functional strength, impaired static and dynamic standing balance, decreased safety and independence with functional mobility, gait impairments, diminished activity tolerance, pain that limits activity, and reduced range of motion resulting in the following functional deficits: difficulty ambulating household and community distances, difficulty with functional transfers, difficulty with independent performance of ADLs, difficulty navigating stairs. She is able to participate on a limited basis this session due to increased fatigue. Patient is significantly debilitated and exhausted easily with light activity. Today she is able to mobilize from the bed a short distance to the chair and participate in seated exercises with intermittent rest breaks. Note that patient fatigues at 5 repetitions of noted exercises so she is recommended to participate in 2 sets of 5 versus 1 set of 10 repetitions. Caregiver present at was instructed in active assistive range of motion as patient lacks strength to achieve full long arc quad. From a physical therapy standpoint, patient is not at functional baseline and will continue to benefit from skilled therapy intervention to restore and maximize function, maximize safety, optimize mobility, teach andeducate family and/or caregivers, and facilitate return to prior level of function. Rehab potential: Ms. Colon has Good potential to achieve established physical therapy goals withinthe time frame outlined below. Progress: Slow progress, limited activity tolerance, Slow progress, cognitive deficits Plan PT Plan Comments: Continue to progress mobility, transfers, ambulation, balance and safety. Stair training when appropriate. Functional Goals: PT Inpatient Goals PT Goal #1: Patient will be able to complete all bed mobility independently with no physical assistand no verbal cues necessary in order to facilitate return to PLOF. PT Goal #1 Status: Progressing PT Goal #2: Patient will be able to complete STS transfer from edge of bed to standing modified independent utilizing front wheel walker for assist, in order to allow for functional transfers at home. PT Goal #2 Status: Progressing PT Goal #3: Patient will be able to ambulate 30m modified independent utilizing front wheel walker for assist, in order to allow for functional ambulation upon DC. PT Goal #3 Status: Slowly progressing PT Goal #4: Patient will be able to safely navigate 2 stair(s) under supervision in order to allow access into/to all levels of their home prior to discharge. PT Goal #4 Status: Ongoing Treatment Plan: Plan: Continue with current plan PT Frequency: 5 times per week PT Inpatient Duration : Until goals are met or hospital discharge Requires Inpatient Follow-Up: Yes PT - Next Inpatient Appointment: 04/13/23 Patient unable to verbalize agreement to the plan of care and goals due to mental status or level of consciousness, but family members present to consult and agree with the plan as stated above. 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 Visit Trackin Billing: Time Spent with Patient Therapeutic Interventions Therapeutic Activity (min): 12 min Therapeutic Exercise (min): 11 min Time Tracking Total Timed Units (min): 23 min Total Treatment Time (min): 23 min Jade Chávez P.T.A. NT REPRESENTATIVE Associated attestation - Tramaine Walsh P.T., D.P.T. - 04/24/2023 3:58 PM CLIENT REPRESENTATIVE The patient has dismissed from the hospital. Current functional status is documented in this note. Further skilled therapy is recommended at this time. Patient is discharged from acute physical therapy. Tramaine Walsh P.T., D.P.T. * Yazan Osei M.D. - 04/11/2023 6:59 PM CST I had the opportunity to meet with the patient and her earlier today. She has a history of mild cognitive impairment suspected to be neurodegenerative but with negative AD biomarkers and a nonspecific PET-CT of the brain in 2021. 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 She has also been found to have several nutritional deficiencies, including thiamine deficiency. MRIs of the brain and spinal cord did not reveal evidence of lymphomatous involvement. EMG and nerve conduction studies did not demonstrate a large fiber neuropathy or a polyradiculopathy. On examination, her strength was largely preserved. She has hyperreflexia but no clonus or spasticity. No dysmetria on wimdaz-or-whpi finger, although she was very slow when performing and had to be directed through sound or touch. There was no evidence of oculomotor apraxia or simultanagnosia. Overall, our suspicion for lymphomatous involvement of the nervous system is low and this would be exceedingly rare with a low-grade lymphoma. Similarly, we have low suspicion for a paraneoplastic syndrome as beyond the cognitive impairment there are no significant objective findings on exam or testing. Additionally, paraneoplastic syndromes would be exceedingly rare in the setting of a low-gradelymphoproliferative disorder. Autoimmune/paraneoplastic myelopathy panel is pending at this time. It is possible the patient neurologic symptoms are secondary to an underlying neurodegenerative disorder which has been compounded by nutritional deficiencies in the setting of her systemic process. Nonetheless, neurologic follow-up will be important after dismiss and initiation of rituximab. #1 Splenic marginal cell lymphoma #2 Multiple nutritional deficiencies, including thiamine deficiency #3 Subacute encephalopathy superimposed on a background of mild cognitive impairment, suspect neurodegenerative disorder with negative AD biomarkers and nonspecific PET-CT pattern NT REPRESENTATIVE * Brenda Salazar O.Jennifer. - 04/11/2023 4:29 PM CST 04/11/231628 Reason Therapy Missed Reason Therapy Missed Receiving other care OT attempted to see patient x1; patient with a provider . OT will continue to monitor and intervene as needed. NT REPRESENTATIVE * Jerome Joyner, P.T.Senthil. - 04/11/2023 3:35 PM CST Physical Therapy Inpatient Treatment SUBJECTIVE Patient's Name: Darcy Colon Referring/Attending Provider: Raymond Jaimes M.D. Reason for Referral: Physical Therapy Evaluate and Treat History of Present Illness: Darcy Colon is a 82 y.o. female who was admitted to [facility] in [place] on 04/02/2023 for Hypercalcemia [E83.52] Hypokalemia [E87.6] Weakness General [R53.1] Precautions Other Precautions: Fall Risk, decreased functional use of right upper extremity dominant hand; generalized weakness; double vision, aspiration precautions Pain Assessment: Pain not reported during session. Patient/Caregiver Goals: No goals stated Subjective Comments: Patient agreed to session. OBJECTIVE Vital Signs Vitals monitored throughout session; within normal ranges. Outcome Measures: AM-PAC Inpatient Short Form: AM-PAC Basic Mobility (V.2) How much help from another person do you currently need???If the patient hasn't done an activity recently, how much help from another person do you think he/she would needif he/she tried? 1. Turning from your back to your side while in a flat bed without using bedrails?: A Lot 2. Moving from lying on your back to sitting on the side of a flat bed without using bedrails?: A Lot 3. Moving to and from a bed to a chair (including a wheelchair)?: A Little 4. Standing up from a chair using your arms (e.g., wheelchair, or bedside chair)?: A Little 5. To walk in hospital room?: A Lot 6. Climbing 3-5 steps with a railing?: Total -[facility] Basic Mobility (V.2) Raw Score: 13 -[facility] Basic Mobility (V.2) Standardized Score: 33.99 Interpretation: Based on scoring guidelines using the raw score value: Those going to home had an average score at or above 18 Those going to facility had an average score at or below 17 Clinicians answer the [facility] Inpatient Short Form based on observed patient activity and/or clinical judgement (ie. patient can be scored without physically performing each activity) Therapeutic Interventions: SUPINE TO SIT: Assistance Level: Minimal Assistance of 1 Device: head of bed elevated and bedrail Assistance/Cueing: verbal and tactile for Completion of transfer, Logrolling, Trunk support, and Upper extremity placement Delivery: educated, assessed, and assisted SIT TO STAND: Assistance Level: Minimal Assistance of 1 Device: gait belt and front wheeled walker Surface: Bed and Chair Assistance/Cueing: verbal and tactile for Anterior weight shifting, Lower extremity placement, Manual facilitation provided for force generation, and Upper extremity placement Delivery: educated, assessed, and assisted STAND TO SIT: Assistance Level: Minimal Assistance of 1 Device: gait belt and front wheeled walker Surface: Bed, Chair, and Commode Assistance/Cueing: verbal and tactile for Alignment with seated surface, Eccentric control, Hip Flexion, Lower extremity placement, and Upper extremity placement Delivery: educated, assessed, and assisted PIVOT TRANSFERS: Surface:Chair to Commode Assistance Level: Minimal Assistance of 1 Device: gait belt and front wheeled walker Approach: to the left Assistance/Cueing: verbal and tactile for Forward gaze, Placement within the walker, and Sequencing Delivery: educated, assessed, and assisted GAIT: Distance: 6.76 and 1.82 meters Minimal Assistance of 1 Device: gait belt and front wheeled walker Quality: decreased base of support, decreased gait speed, decreased heel strike, decreased step length, decreased toe off, downward gaze, forward flexed posture, shuffling, steady Assistance/Cueing:verbal, tactile, and visual for Forward gaze, Heel strike, Increased step length,Upright posture, and Widened base of support Comments: Patient was able to increase ambulation distance compared to previous treatment session however required increase assistance today. THERAPEUTIC EXERCISE: Seated Therapeutic Exercise: Side: bilateral, lower extremity(ies) Mode: active range of motion Exercises: Ankle pumps, Long arc quads, Marching, Hip adduction, and Hip abduction Sets/Repetitions: 2/10 Assist/cueing: Eccentric control, Full range of motion, and Pacing Education : The patient/family educated on safe transfer techniques with functional mobility/activity. The patient's status was discussed and the following coordination of care occurred with the: coil winder/Caregiver Family/Caregiver Present: Patient's Patient was left on commode at end of session with call light in reach, all needs met and questionsanswered. Assessment Discharge Therapy Needs - PT: Ongoing skilled physical therapy Skilled therapy can include physical therapy provided by home health, outpatient clinic, or a post-acute facility. The location of these services is determined by the patient's care team in partnership with patient/family. Level of Care Needed - PT: Assistance with transfers (Comment), Assistance with walking and moving around the home, Assistance with bed mobility, Assistance with stairs, Cognitive assistance needed, Physical assistance needed Equipment Recommended - PT: Hospital bed, Wheelchair, Mechanical lift Barriers to Discharge Home: Current functional status, Fall risk, Inaccessible home environment, Safety concerns, Limited caregiver support, Limited caregiver availability Barriers to Discharge Comments: 2 stairs to enter residence. From a physical therapy perspective, the level of care above has been recommended for Ms. Colon after hospital discharge. This level of care is based on her functional abilities during today's session. This may change throughout the hospital course and will be updated as appropriate. Clinical Impression: Patient currently presents with decreased activity tolerance, increased generalized weakness, and impaired stand balance which has affected patient's safety and independence with her functional mobility. Patient seemed more fatigued and required extra assistance to complete her functional mobility t doris. Patient required minimal assistance for her bed mobility, minimal assistance for transfers, and minimal assistance for ambulation with front wheel walker. Patient was able to increase ambulation distance today to 6.76 m was 4.52 m previous treatment session. Patient continues to remain below her prior functional mobility baseline and would benefit from ongoing physical therapy skilled intervention. Rehab potential: Ms. Colon has Good potential to achieve established physical therapy goals withinthe time frame outlined below. Progress: Slow progress, limited activity tolerance, Slow progress, cognitive deficits Plan PT Plan Comments: Continue to progress mobility, transfers, ambulation, balance and safety. Stair training when appropriate. Functional Goals: PT Inpatient Goals PT Goal #1: Patient will be able to complete all bed mobility independently with no physical assistand no verbal cues necessary in order to facilitate return to PLOF. PT Goal #1 Status: Progressing PT Goal #2: Patient will be able to complete STS transfer from edge of bed to standing modified independent utilizing front wheel walker for assist, in order to allow for functional transfers at home. PT Goal #2 Status: Progressing PT Goal #3: Patient will be able to ambulate 30m modified independent utilizing front wheel walker for assist, in order to allow for functional ambulation upon DC. PT Goal #3 Status: Slowly progressing PT Goal #4: Patient will be able to safely navigate 2 stair(s) under supervision in order to allow access into/to all levels of their home prior to discharge. PT Goal #4 Status: Ongoing Treatment Plan: Plan: Continue with current plan PT Frequency: 5 times per week PT Inpatient Duration : Until goals are met or hospital discharge Requires Inpatient Follow-Up: Yes PT - Next Inpatient Appointment: 04/12/23 Patient unable to verbalize agreement to the plan of care and goals due to mental status or level of consciousness, but family members present to consult and agree with the plan as stated above. 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 Advancing towards goal bolus regimen. RN reported that patient had emesis yesterday that was suspected related to medications / volume. Patient did tolerate her 500 mL lunch bolus today at 400 mL/hr per RN. Will monitor. No other concerns regarding tolerance per RN. Results for the past 120 hrs: 24 Hr Total Calorie Intake 04/10/232358 61 04/09/232358 313 04/08/232358 362 04/07/232358 0 04/06/232358 113 Results for the past 120 hrs: 24 Hr Total Protein Intake 04/10/232358 1 04/09/232358 9 04/08/232358 9 04/07/232358 0 04/06/232358 2 Current nutrition orders: Current Diet Tube feeding with oral diet -Nutren 1.5 (RTH); Feeding route: Nasogastric; Feed options: Intermittent; Day 1 ml/feedin mL; Day 2 ml/feedin mL; Day 3 ml/feedin-500-250; Intermittent goal: 250-500-250; Daily goal volume (mL): 1000 starting at 04/09 1600 Adult Diet Dysphagia; Thin (TN0); Soft and Bite-Sized (SB6) starting at 04/07 1045 GI Function: Last BM Date: 04/09/23, Cache Stool Chart: Type 4: Like a sausage or snake, smooth and soft, Passing Flatus: No Medications: Reviewed; include esomeprazole, imodium, Therapeutic-M, vitamin B6, thiamine, PRN compazine Pertinent labs: Reviewed; vitamin E pending Last 2 results Lab Units 04/10/23 0754 04/09/23 0935 POTASSIUM mmol/L 4.1 3.8 BUN mg/dL 16 18 CREATININE mg/dL 1.09* 1.02 ESTIMATED GFR EGFR mL/min/BSA 51* 55* Weight since admission: Height: 149.9 cm Admission Weight: 54 kg (04/02/2023) Current Weight: 54.7 kg BMI (Calculated): 24.3 kg/m?? Weight change since admission: 0.7 kg Net IO Since Admission: 6,473.33 mL [04/11/23 1515] Estimated Needs: Total Calorie Needs: 1348-0011 calories/day Method to Estimate Energy Needs: kcal/kg (25-30 kcal/kg) Weight Used for Equation Calculations: 54 kg Total Protein Needs: 54 - 65 grams/day Method to Estimate Protein Needs (g/kg): 1 - 1.2 gm/kg Weight Used to Calculate Protein Needs (Kg): 54 kg Nutrition Diagnosis: Inadequate protein-energy intake related to decreased appetite/ NV as evidenced by Family reported intake and >5% wt loss in 1 m Nutrition Diagnosis Reassessment: Ongoing PLAN Nutrition Intervention: Medical food supplement, Increase nutrient intake with small, frequent meals and/or snacks, Assess oral intake with calorie count Nutrition parameter to monitor: Meals/Supplement Intake, Weight Status, Nausea/Vomiting/Diarrhea, Wound Healing ASPEN Criteria Malnutrition Status: Severe Malnutrition Recommendations: Oral diet per PTO-Dysphagia Switch to bolus tube feeding: Formula: Nutren 1.5 Regimen: Provided over 1 hour as tolerated: Day 3 (04/11): Goal of 250-500-250 mL Flushes: Minimum 30 mL before and after each bolus. Additional flushes for hydration per primary service. To meet 1 mL/kcal fluid needs, would require additional 5 x 120 mL flushes Vitamin / minerals: Regimen meets 100% of RDIs Modulars: Continue Isamar flakes TID Regimen at goal provides 1000 mL formula, 1500 kcal, 68 g protein, 940 mL free water (760 mL from formula, 180 mL from patency flushes) Allow patient to eat a meal, then provide tube feeding based on oral intake as follows: Patient eats 0-25% meal, provide 100% bolus TF Patient eats 50% meal, provide 50% bolus TF Patient eats 75-100% meal, hold bolus TF Clinical Nutrition will continue to follow. For questions about patient's nutritional care please contact pager [phone] on weekdays 07:30-16:00 or [phone] on weekends/holidays. NT REPRESENTATIVE * Mere Ch, Pharm.D., R.Ph. - 04/11/2023 1:16 PM CST Pharmacist Progress Note Reason for admission: progressive weakness and confusion PMH: history of mild cognitive impairment, breast cancer (treated with lumpectomy and sentinel nodedissection, hypofractionated whole breast radiation, anastrozole, tamoxifen), non-melanoma skin cancer, anxiety, depression, osteopenia, and GERD OBJECTIVE Home medications per RPh/RN Held: carbidopa-levodopa and donepezil (never started), aspirin, HCTZ, hydroquinone 4% cream, calcium-vitamin D, vitamin D3, vitamin B12 Changed: acetaminophen (changed frequency), bupropion to IR (tube administration), PPI interchange New: senna-S, MiraLAX, prochlorperazine, MV, thiamine, first mouthwash, pyridoxine VTE Prophylaxis: SQ Heparin (watch plts -64 from 04/10) Renal function: Estimated Creatinine Clearance: 35 mL/min (A) (by C-G formula based on SCr of 1.09 mg/dL (H)). Baseline Scr ~1.0 ASSESSMENT / PLAN Weakness, splenomegaly & pancytopenia - PET scan found splenomegaly & diffuse bone marrow activity c/f lymphoproliferative process; Heme following- BMBx: Low grade B cell Lymphoma, per Heme consideration for Rituximab being considered Hypercalcemia improved. 1,24-hydroxyvitamin D level wnl (66., 04/08). Holding home calcium-vit D supplementation. FEN - NG placed 04/06 for feeds and most medications. On high dose thiamine for potential Wernicke's.Monitoring and replacing refeeding electrolytes and vitamins - nutrition consult. B6 level low - new pyridoxine 100 mg daily Zinc came back slightly low (58), on a MVM. Disposition - PT/OT consulted. Will likely require SNF placement. Mere Ch PharmYuliet., R.Ph. NT REPRESENTATIVE * Syed Cruz M.B.B.S. - 04/11/2023 6:35 AM CST Images from the original note were not included. [facility] ([facility]) PROGRESS NOTE SUBJECTIVE Patient fell feels well in herself this morning. We discussed the results of the bone marrow biopsyand neurological evaluation with her and her yesterday. Overnight events: Patient had a bout of coughing and then post-tussive emesis if with 200 mL of tube feed Overview: Vitals within normal range Diet: 20% expected calorie intake from oral. Adult Diet Dysphagia; Thin (TN0); Soft and Bite-Sized (SB6). NG feeds with Nutren 1.5 (RTH) PT: slowly progressing. 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 IgM kappa paraprotein. BMB and fat aspirate negative for amyloid. Hematology reviewed; advised inpatient rituximab. HBV negative. HCV and HIV requested this morning. Neurology reviewed: advised clinical picture most in keeping with metabolic/nutritional etiology tocognitive changes. Much less likely lymphomatous involvement. Will add on an autoimmune myelopathy panel. I have reviewed the current medication list. On thiamine as per Wernicke's protocol OBJECTIVE VITAL SIGNS Temperature: [36.7 ??C-36.9 ??C] 36.8 ??C Resp Rate: [14-16] 16 Blood Pressure: (111-147)/(57-80) 143/80 SpO2: [95 %-97 %] 97 % Weight: [56.6 kg] 56.6 kg BMI (Calculated): [25.2 kg/m??] 25.2 kg/m?? Pulse Rate: [75-80] 77 PHYSICAL EXAM General: Alert, interactive, not acutely ill. Skin: No rashes or lesions. Eyes: Pupils equal and round. Sclera anicteric. ENT: Hearing grossly intact. Dentition intact. No oral or pharyngeal erythema or lesions noted. Lungs: Clear to auscultation. No wheezes or crackles. Reduced bibasilar air entry and reduced whispered pectoriloquy suggestive of small effusions. Heart: Cap refill time under 2 seconds and moist mucous membranes. Regular rate and rhythm. No murmurs appreciated. No lower extremity edema. Abdomen: Soft, bowel sounds present. Neurological Examination 04/07 Summary of neurologic exam: Cognitive impairment manifesting with bradyphrenia, deficits in attention, calculation, abstraction, recent and remote memory and some disorientation. Subtle quadriparesisin upper motor neuron pattern with a length-dependent proprioceptive loss in the upper and lower limbs. DIAGNOSTICS I have personally reviewed the laboratory data and imaging since admission, and in/outs for past 72hours. Positives: IgM kappa small monoclonal gammopathy Frederic free light chain serum 2.9 Bone marrow, flow cytometry: Involved by a CD5-negative, [id number] B-cell lymphoproliferative disorder, kappa light chain-restricted (ddx marginal zone, lymphoplasmacytic, or follicular lymphoma) Vitamin B6 <2, pyridoxine low, nicotinic acid low B12 1300, zinc low 50 EBV low volume quantification under 35 plasma Pending tests include: - bone marrow biopsy - fat aspirate - Labs as detailed below ASSESSMENT / PLAN Ms. Colon is hospitalized on [facility] ([facility]) for evaluation and management of progressive weakness and confusion. Medical comorbidities include history of mild cognitive impairment, breast cancer in remission, non-melanoma skin cancer, anxiety, depression, osteopenia, GERD, recent COVID infection in February 2023, IgM kappa gammopathy, B12 deficiency on supplementation. 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 She has stable mild pancytopenia, FDG avid splenomegaly and bone marrow, and an IgM kappa gammopathy. Hematology is aware and have recommended transferred to [facility] for initiation of rituximab. The patient and family are agreeable to this. With regard to her admission hypercalcemia, this could have been at least in part due to calcium and vitamin-D supplementation combined with low p.o. intake and dehydration. It has improved somewhat with IV fluids. PTH was low and vitamin D levels were within normal range. PTHrP was negative. However, the lymphoma may be the likely underlying helper driver. Due to recent poor oral intake and concern for malnutrition, and NG tube was placed on 04/06 and tube feeding advanced. The patient's refeeding syndrome has resolved and we will liberalize laboratorychecks to twice weekly. Vitamin B6 and zinc were also low and we will supplement these. Thiamine isbeing repleted at Wernicke's Syndrome treatment doses given her encephalopathy. From a neurological point of view, this lady is unfortunately exhibiting a subacute and progressiveencephalopathy over the last 1-2 months exacerbated by COVID infection in February. This is on a background of mild cognitive impairment, parkinsonism, and gait instability for which he was evaluated in March 2022 by our Neurology colleagues. On examination, she has bradyphrenia and cognitive impairment manifesting with deficits in attention, calculation, abstraction, recent and remote memory and some disorientation. She also has subtle quadriparesis in upper motor neuron pattern with a length-dependent proprioceptive loss in the upper and lower limbs at initially raised concern for a myeloneuropathy although an EMG was negative. MRI of the head is unrevealing but MRI cervical spine does show some cervical spondylosis without overt cord compression or cord signal change from C4-C6. Compression here could certainly result in the pyramidal pattern seen on lower limb examination although upper limb reflexes are uncharacteristic brisk as well. The macroglossia, encephalopathy, laboratory abnormalities and proprioceptive deficits raised concern for a metabolic etiology. She is receiving Wernicke's dose IV thiamine. Lymphoproliferative conditions including Deja Fan syndrome and amyloidosis could be playing a role and remain on the differential given the other described findings. EMG was unrevealing. A broad workup was undertaken, including a PATIENT REGISTRATION REP demyelination panel, autoimmune myelopathy panel, and fat aspirate for amyloidosis. Consideration could be given to need for LP if this would exchange operator. Neurology is following for further assistance. She will be transferred to the inpatient Hematology service for chemotherapy for her lymphoplasmacytic lymphoma. Barriers to discharge include nutrition, cognition, oral intake, debility which seem to be mostly acute over the last 1-2 months, but on a background of chronic mild cognitive impairment. We will continue to involve our care management, nutrition, physical therapy and occupational therapy colleagues with anticipated SNF discharge unless marked improvement occurs post treatment. Today's plan: Sleep enhancement Hematology to guide plans for transfer to [facility] for Rituximab initiation HIV, HCV this morning Liberalize labs to twice weekly thereafter Neuro adding on autoimmune myelopathy panel Ongoing nutrition, PT, PTO dysphagia input Continue NG feeding, calorie count, advancement of oral diet, vitamin and electrolyte replacement # Generalized weakness # Subacute encephalopathy on a background of mild cognitive impairment # Mild quadriparesis # Concern for myeloneuropathy # Length-dependent proprioceptive deficits # History of gait instability # History of mild cognitive impairment # History of parkinsonism Neurology following, appreciate recommendations EMG/NCS: unrevealing Fat aspirate biopsy for evaluation of amyloidosis Continue Wernicke's dose IV thiamine Vitamin B6 supplementation Follow broad laboratory base workup Consideration could be given to LP if above workup unrevealing PT/OT # Pancytopenia # FDG avid splenomegaly # Diffuse FDG avid bone marrow # History of IgM kappa gammopathy # Frederic free light chains 2.9 # Suspicion for lymphoproliferative disorder # Low grade EBV quantification PTHrP negative. EBV <35 Heme consulted, appreciate recommendations Leukemia/lymphoma flow cytometry Follow results of bone marrow biopsy Labs as per Heme: 1,25 vitamin D, VEGF # Hypercalcemia # Refeeding syndrome, resolved # Hypokalemia, hypomagnesemia, hypophosphatemia, resolved # Severe malnutrition # Macroglossia Twice weekly labs Nutrition following, appreciate recs Continue NG tube feeds while evaluation pending Hold home calcium, vitamin D supplementation, and hydrochlorothiazide Continue aggressive thiamine repletion per neurology recommendations Pyridoxine supplementation # Mild rise in creatinine not meeting criteria for DIDIER, improved # 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 No obstructive Urology recommend monitoring renal function and if deteriorates -> CT urogram # Mood: Continue home bupropion and escitalopram # GERD: continue PPI # Glaucoma: continue home timolol, brimonidine eye drops, ketorolac eye drops # History of breast cancer Family reports patient is not currently on hormone therapy due to side effects. She is monitored with mammogram, most recently 07/14/2022 without evidence of recurrence Baseline Mobility: BMAT Level 3 (Able to stand but cannot take steps without help) Diet: Adult Diet Dysphagia; Thin (TN0); Soft and Bite-Sized (SB6) Tubes/lines: PIV and [place] VTE prophylaxis: heparin Code status: DNR Surrogate Decision Maker: Spouse, Philippe Disposition: Uncertain Severe Malnutrition The patient meets the ASPEN Criteria of malnutrition based on: Energy Intake: Less than or equal to 75% of estimated energy requirement for greater than or equal to 1 month Interpretation of Weight Loss: greater than 5% 1 month Body Fat: Mild Loss Muscle Mass: Mild Loss This is in the context of Chronic Illness. Malnutrition Present Upon Admission: Yes Agree with Registered Dietitian's assessment and treatment plan: Interventions: Medical food supplement, Increase nutrient intake with small, frequent meals and/or snacks, Assess oral intake with calorie count Plan discussed with [facility] Medicine 2 ([facility]) Support Associate, Dr. Jaimes, who was present during jorge portions of the evaluation today. Please page the [facility] Medicine 2 ([facility]) service pager at [phone] Syed Martinez, ANDREINABS PGY1 Pager: [phone] Portions of the record may have been created with voice recognition software. NT REPRESENTATIVE Associated attestation - Raymond Jaimes M.D. - 04/11/2023 5:23 PM CLIENT REPRESENTATIVE I saw and evaluated the patient, participating in the jorge portions of the service. I reviewed the resident/fellow???s note. I agree with the resident/fellow???s findings and plan. Anticipate transfer to a Hematology service at [facility] as soon as tomorrow for initiation of chemotherapy. Continue enteral feeding. * Jerome Joyner, P.T.A. - 04/10/2023 4:22 PM CST Physical Therapy Inpatient Treatment SUBJECTIVE Patient's Name: Darcy Colon Referring/Attending Provider: Raymond Jaimes M.D. Reason for Referral: Physical Therapy Evaluate and Treat History of Present Illness: Darcy Colon is a 82 y.o. female who was admitted to [facility] in [place] on 04/02/2023 for Hypercalcemia [E83.52] Hypokalemia [E87.6] Weakness General [R53.1] Precautions Other Precautions: Fall Risk, decreased functional use of right upper extremity dominant hand; generalized weakness; double vision, aspiration precautions Pain Assessment: Pain not reported during session. Patient/Caregiver Goals: No goals stated Subjective Comments: Patient agreed to session. OBJECTIVE Vital Signs Vitals monitored throughout session; within normal ranges. Outcome Measures: AM-PAC Inpatient Short Form: AM-PAC Basic Mobility (V.2) How much help from another person do you currently need???If the patient hasn't done an activity recently, how much help from another person do you think he/she would needif he/she tried? 1. Turning from your back to your side while in a flat bed without using bedrails?: A Little 2. Moving from lying on your back to sitting on the side of a flat bed without using bedrails?: A Lot 3. Moving to and from a bed to a chair (including a wheelchair)?: A Little 4. Standing up from a chair using your arms (e.g., wheelchair, or bedside chair)?: A Little 5. To walk in hospital room?: A Lot 6. Climbing 3-5 steps with a railing?: Total -[facility] Basic Mobility (V.2) Raw Score: 14 -PAC Basic Mobility (V.2) Standardized Score: 35.55 Interpretation: Based on scoring guidelines using the raw score value: Those going to home had an average score at or above 18 Those going to facility had an average score at or below 17 Clinicians answer the -[facility] Inpatient Short Form based on observed patient activity and/or clinical judgement (ie. patient can be scored without physically performing each activity) Therapeutic Interventions: SUPINE TO SIT: Assistance Level: Supervision of 1 Device: head of bed elevated and bedrail Assistance/Cueing: no cueing required for Delivery: SCOOTING: Assistance Level: Supervision of 1 Surface: Bed Assistance/Cueing: no cueing required for SIT TO STAND: Assistance Level: Minimal Assistance of 1 Device: gait belt and front wheeled walker Surface: Bed, Chair, and Commode Assistance/Cueing: verbal and tactile for Anterior weight shifting, Manual facilitation provided for force generation, Sequencing, and Upper extremity placement Delivery: educated, assessed, facilitated, and assisted STAND TO SIT: Assistance Level: Contact Guard Assistance, Minimal Assistance of 1 Device: gait belt and front wheeled walker Surface: Bed, Chair, and Commode Assistance/Cueing: verbal and tactile for Eccentric control and Upper extremity placement Delivery: educated, assessed, facilitated, and assisted GAIT: Distance: 4.52 and 1.82 meters Contact Guard Assistance, Minimal Assistance of 1 Device: gait belt and front wheeled walker Quality: decreased heel strike, decreased step length, decreased toe off, downward gaze, forward flexed posture, steady Assistance/Cueing:verbal and tactile for Forward gaze, Heel strike, Increased step length, Placement within the walker, and Upright posture Comments: Patient was able to increase ambulation distance today THERAPEUTIC EXERCISE: Seated Therapeutic Exercise: Side: bilateral Mode: active range of motion Exercises: Ankle pumps, Long arc quads, Marching, Hip adduction, and Hip abduction Sets/Repetitions: 2/10 Assist/cueing: Full range of motion and Pacing Education : The patient/family educated on safe transfer techniques with functional mobility/activity. The patient's status was discussed and the following coordination of care occurred with the: coil winder/Caregiver Family/Caregiver Present: Patient's Patient was left in bedside chair at end of session with call light in reach, all needs met and questions answered. Assessment Discharge Therapy Needs - PT: Ongoing skilled physical therapy Skilled therapy can include physical therapy provided by home health, outpatient clinic, or a post-acute facility. The location of these services is determined by the patient's care team in partnership with patient/family. Level of Care Needed - PT: Assistance with transfers (Comment), Assistance with walking and moving around the home, Assistance with bed mobility, Assistance with stairs, Cognitive assistance needed, Physical assistance needed Equipment Recommended - PT: Hospital bed, Wheelchair, Mechanical lift From a physical therapy perspective, the level of care above has been recommended for Ms. Colon after hospital discharge. This level of care is based on her functional abilities during today's session. This may change throughout the hospital course and will be updated as appropriate. Clinical Impression: Patient pleasant and agreeable to treatment session, continues to make steady improvements towards increasing her safety and independence with her functional mobility. Patient is currently requiring supervision for bed mobility; minimal to contact guard assistance for her transfers; and minimal to contact guard assistance for ambulation with front wheel walker. Patient was able to increase her ambulation distance to 4.52 m with improved stability and activity tolerance. Patient does continue toremain below her prior functional mobility baseline and would benefit from ongoing physical therapyskilled intervention to optimize her safety and independence with all her functional mobility. Rehab potential: Ms. Colon has Good potential to achieve established physical therapy goals withinthe time frame outlined below. Progress: Slow progress, limited activity tolerance, Slow progress, cognitive deficits Plan PT Plan Comments: Continue to progress mobility, transfers, ambulation, balance and safety. Stair training when appropriate. Functional Goals: PT Inpatient Goals PT Goal #1: Patient will be able to complete all bed mobility independently with no physical assistand no verbal cues necessary in order to facilitate return to PLOF. PT Goal #1 Status: Progressing PT Goal #2: Patient will be able to complete STS transfer from edge of bed to standing modified independent utilizing front wheel walker for assist, in order to allow for functional transfers at home. PT Goal #2 Status: Progressing PT Goal #3: Patient will be able to ambulate 30m modified independent utilizing front wheel walker for assist, in order to allow for functional ambulation upon DC. PT Goal #3 Status: Slowly progressing PT Goal #4: Patient will be able to safely navigate 2 stair(s) under supervision in order to allow access into/to all levels of their home prior to discharge. PT Goal #4 Status: Ongoing Treatment Plan: Plan: Continue with current plan PT Frequency: 5 times per week PT Inpatient Duration : Until goals are met or hospital discharge Requires Inpatient Follow-Up: Yes PT - Next Inpatient Appointment: 04/11/23 Patient unable to verbalize agreement to the plan of care and goals due to mental status or level of consciousness, but family members present to consult and agree with the plan as stated above. 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 Visit Trackin Billing: Time Spent with Patient Therapeutic Interventions Gait Training (min): 10 min Therapeutic Activity (min): 18 min Therapeutic Exercise (min): 10 min Time Tracking Total Timed Units (min): 38 min Total Treatment Time (min): 38 min Jerome Joyner, P.T.A. NT REPRESENTATIVE * Brenda Salazar, O.T. - 04/10/2023 4:22 PM CST Occupational Therapy Acute Hospital Inpatient Treatment SUBJECTIVE Patient's Name: Darcy Colon Referring/Attending Provider: Raymond Jaimes M.D. Medical Diagnosis: Hypercalcemia [E83.52] Hypokalemia [E87.6] Weakness General [R53.1] Reason for Referral: Occupational Therapy Evaluation and Treatment OT general acute Onset Date: 04/02/23 Payor: MEDICARE / Plan: MEDICARE A AND B / Product Type: Medicare / History of Present Illness:Per medical record, Ms. Colon is hospitalized on [place] [id number] ([facility]) for evaluation and management of progressive weakness and confusion. Medical comorbidities include history of mild cognitive impairment, breast cancer in remission, non-melanoma skin cancer, anxiety, depression, osteopenia, and GERD. OT dysphagia consulted to assess safety with oral intake. Per medical record, she has been having episodes of nausea/gagging when food touches her tongue. Nursing reports she pocketed her pills when attempting to take them whole and they noticed liquid running out of her mouth following sips of liquid. Patient/Caregiver Goals: no goals stated Patient Comments: Patient greeted in bed, agreeable to OT intervention using motivational therapy. No complaints of pain or discomfort voiced. Precautions Other Precautions: Fall Risk, decreased functional use of right upper extremity dominant hand; generalized weakness; double vision, aspiration precautions OBJECTIVE Cognition Cognitive assessment method: Therapist observations Arousal/Alertness: Delayed responses to stimuli Attention: Impairments noted Sustained: Mild Divided: Mild Alternating: Mild Initiation: Slow/delayed initiation (And at times does not initiate) Following Commands: One Step Commands, Two Step Commands One Step Commands: Follows one step commands with increased time, Follows one step commands with repetition Two Step Commands: Follows two step commands with repetition, Follows two step commands with increased time Activity Tolerance Endurance: Requires rest breaks Balance Static Sitting-Balance: Poor (Requires assistance to maintain balance), Fair (Maintains balance with handheld/contact guard assistance) Dynamic Sitting-Balance: Poor (Requires assistance to maintain balance), Fair (Maintains balance with handheld/contact guard assistance) Static Standing-Balance: Unable Dynamic Standing-Balance: Unable Feeding Feeding Location: Supported sitting in bed Feeding Delivery: Assessed, Educated, Therapist Assisted, Modified/Adapted Feeding Level of Assistance: Minimal assistance Feeding Comments: OT facilitated drinking the Juice from the cup by holding the cup with bilateral upper extremities, patient was Min assist while seated edge of the bed to bring the cup to the mouthsecondary to challenges with double vision and decrease patient confidence. Patient took multiple sips of the juice while seated edge of the bed with Min assist. ADL Comments ADL Comments: Patient participated in: Weight shift and dynamic sitting balance activities in sitting Patient needs physical assist to maintain upright sitting balance at edge of the bed, patient participated in dynamic sitting activities for weight shift: 1) side to side by going down to the elbow and coming up to upright sitting position 2) front and back by rocking back and forth with assist from therapist. Patient did each exercise 10 reps x2 sets with OT assist. Patient fatigues easily and needs rest breaks. Based on patient's current functional status OT also facilitated discussion with spouse and patient about safety with discharge planning and need for ongoing rehab and both in agreement. Bed Mobility - Rolling # of Assistants: 1 Level of Assistance: Minimal assistance Device: Bed Rail, Other Cuing: Verbal, Tactile Comments: OT facilitated Education and training using verbal +tactile cues for sequencing of log roll technique. Patient was Min physical assist for rolling to left side. Bed Mobility - Supine to Sit # of Assistants: 1 Level of Assistance: Maximal assistance Device: Bed rail, Head of bed elevated Cuing: Verbal, Tactile Comments: OT facilitated Education and training using verbal +tactile cues for sequencing of log roll technique. Patient was maximum physical assist at torso and bilateral lower extremities for supine to sit with head of bed elevated to 30??. Bed Mobility - Sit to Supine # of Assistants: 1 Level of Assistance: Maximal assistance Device: Bed rail, Head of bed elevated Cuing: Verbal, Tactile Comments: OT facilitated Education and training using verbal +tactile cues for sequencing of reverse log roll technique. Patient was maximum physical assist at torso and bilateral lower extremities get back into bed with head of bed elevated to 30??. Therapeutic Functional Activity Position: Sitting Task Component(s): Reaching Descriptor(s): Using right hand, Using left hand, Using bilateral hands Balance Demand: Static, Dynamic, Within base of support Tolerance-time (min): 10-15+ minutes with assist Physical Assistance Required: Minimal assistance Cuing Required: Verbal, Visual, Tactile Cuing Comments: Patient was Min physical assist at torso to maintain sitting at edge of the bed in dynamic sitting activities to increase sitting balance and tolerance Therapeutic Functional Activity Comments: Patient needs physical assist to maintain upright sittingbalance at edge of the bed, patient participated in dynamic sitting activities for weight shift side<>side and front<>back; followed by trying to take sips of her juice using bilateral upper extremities while seated edge of the bed with Min physical assist to maintain upright balance from therapist. Team Communication: Patient's nurse was contacted and patient's status was discussed, Other (comment) (Discussed patient care with dysphagia OT) Outcome Measures AM-[facility] Inpatient Short Form: Putting on and taking off regular lower body clothing?: Total Putting on and taking off regular upper body clothing?: Total Taking care of personal grooming such as brushing teeth?: Total Bathing (including washing, rinsing, drying)?: Total Toileting, which includes using toilet, bedpan, or urinal?: Total Eating meals?: Total Daily Activities Raw Score (max 24): 6 Daily Activities Standardized Score: 17.07 Interpretation: Clinicians answer the -[facility] Inpatient Short Form based on observed patient activity and/or clinical judgement (ie. patient can be scored without physically performing each activity) Based on scoring guidelines using the raw score value: Those going to home had an average score at or above 18 Those going to facility had an average score at or below 17 Patient was left in bed with bed alarm on with spouse in the room at end of session with call lightin reach, all needs met and questions answered. Assessment Discharge Therapy Needs - OT: Ongoing skilled occupational therapy Skilled therapy can include occupational therapy provided by home health, outpatient clinic, or a post-acute facility. The location of these services is determined by the patient's care team in partnership with patient/family. Level of Care Needed - OT: Assistance with toileting, Assistance with dressing, Assistance with toilet/shower transfers, Assistance with meal preparation, Physical assistance needed, Assistance with medication set up/administration, Assistance with personal financial advisor, Assistance with transportation, Assistance with showering/bathing, Assistance with housekeeping, Assistance with eating/feeding,Cognitive assistance needed, Assistance with shopping Recommended Adaptive Equipment - OT: Other (Comment) (Ongoing assessment) Barriers to Discharge Home: Current functional status, Fall risk, Inaccessible home environment, Safety concerns, Limited caregiver support, Limited caregiver availability (Simultaneous filing. User may not have seen previous data.) Barriers to Discharge Comments: 2 stairs to enter residence. (Simultaneous filing. User may not have seen previous data.) Clinical Impression: Patient seen for general treatment. Today's session focused on increasing independence in bed mobility, dynamic sitting balance at edge of the bed, and increasing independence in self feeding. Pleaserefer above for details. OT educated nursing, family, patient for patient to be eating her meals inbedside chair versus in the bed to increase functional use of right upper extremity in self feeding. Patient will continue to benefit from ongoing therapy to increase independence +self reliance in self cares, transfers and mobility. All in agreement. Rehab potential: Ms. Colon has good potential to achieve established occupational therapy goals within the time frame outlined below. Functional Goals: OT Goal #1: Patient will demonstrate all functional transfers with SBA to progress towards baseline OT Goal #1 Status: Ongoing OT Goal #2: Goal 2&3 Collated: Patient will demonstrate total body dressing, and toileting withminimal assistance of 1 to progress towards baseline OT Goal #2 Status: Ongoing OT Goal #3: New goal added 04/09/2023: Patient will increase functional use of right upper extremity in self feeding+ grooming with minimal assist to increase independence and self reliance in self cares OT Goal #3 Status: Slowly progressing OT Goal #4: Patient will tolerate sitting unsupported at EOB for greater than 30 minutes to facilitate independent participation in self-cares (grooming, feeding, upper body dressing) OT Goal #4 Status: Slowly progressing Progress: Improving as expected, Progressing toward goals Plan OT Frequency: OT Amount: 1 visit per day OT Frequency: 5 times per week OT Inpatient Duration : Until goals are met or hospital discharge Requires Inpatient OT Follow-Up: Yes OT - Next Inpatient Appointment: 04/11/23 Plan: Continue with current plan (Goal modified and new goal added) OT Plan Comments: Next session: Initiate cognitive activities while seated edge of the bed, Increase dynamic edge of the bed sitting balance and tolerance; Increase functional use of right upper extremity in self feeding + oral cares, seated grooming, trunk/core strengthening exercises at EOB, bed mobility, progress transfers/mobilty as able; progress standing tolerance (with use of Martir Steady or FWW), caregiver training and as needed Treatment interventions may include: Treatment Interventions: Therapeutic exercise, Therapeutic functional activity, Self-care/home management, Cognitive skills training Billing: Time Spent with Patient Therapeutic Interventions Home Management Training (min): 33 min Time Tracking Total Timed Units (min): 33 min Total Treatment Time (min): 33 min Amara Salazar O.T. NT REPRESENTATIVE * Santiago Mejía M.D., M.S. - 04/10/2023 10:25 AM CST BRIEF HEMATOLOGY CONSULT SERVICE PROGRESS NOTE SUBJECTIVE Ms. Darcy Colon is a 82 y.o. female with a history of mild cognitive impairment followed by Neurology, breast cancer 2017s/p lumpectomy and radiation, nonmelanoma skin cancer, osteopenia, B12 deficiency on supplementation, and GERD who is admitted to the medicine service for hypercalcemia in the setting of failure to thrive. We are consulted given new pancytopenia and splenomegaly with hypercalcemia. At the bedside, she is sitting in no acute distress but appears somewhat disoriented. Is able to answer simple questions. Her is at the bedside who we spoke with as detailed below. OBJECTIVE VITAL SIGNS BP 147/77 (BP Location: Left arm;Upper, Patient Position: Semi-recumbent) Pulse 80 Temp 36.8 ??C (Oral) Resp 16 Ht 149.9 cm Wt 56.6 kg SpO2 96% BMI 25.20 kg/m?? PHYSICAL EXAM General: Lying in bed, no acute distress. Lungs: On room air Mental: Alert, oriented to person, place, situation. She appears in better health than 2 days ago. DIAGNOSTICS I have reviewed relevant interval diagnostics. 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 ASSESSMENT / PLAN Ms. Darcy Colon is a 82 y.o. female with a history of mild cognitive impairment followed by Neurology, breast cancer 2017s/p lumpectomy and radiation, nonmelanoma skin cancer, osteopenia, B12 deficiency on supplementation, and GERD who is admitted to the medicine service for hypercalcemia in the setting of failure to thrive. We are consulted given new pancytopenia and splenomegaly with hypercalcemia. Her picture remains suspicious for malignant involvement of the bone marrow. The PET-CT showed moderately FDG avid splenomegaly and diffuse bone marrow activity suspicious for a lymphoproliferative process. BM bx is pending; flow cytometry is concerning for a B cell lymphoproliferative disorder showing a small kappa restricted light chain population. We are awaiting the results of the biopsy. We discussed this with the patient at the bedside who was understanding. We recommend obtaining HIV HepB Hep C serologies anticipating treatment in the near future. Fat aspirate as recommended by Nephrology is pending. M-protein mass-fix on urine negative for a monoclonal protein. M-protein MALDI-TOF serum had shown small monoclonal IgM kappa. We had recommendedobtaining a 24-hour urine protein with immunoglobulins, but this is limited by patient's incontinence requiring a Lyon for 24 hour collection. If continence improves and a Lyon is not needed, wouldrecommend obtaining the 24-hour urine. # Hypercalcemia, improved # Failure to thrive # Pancytopenia # Hx of breast cancer s/p lumpectomy and radiation # FDG avidity in spleen and bone marrow on PET 04/06/2023 # Flow cytometry concerning for B-cell lymphoproliferative disorder # M-protein MALDI-TOF serum w/ small monoclonal IgM kappa Recommendations: We will follow up: Bone marrow biopsy Serum immunoglobulins Please obtain 24-hour urine with immunoglobulin total light chains when able Please obtain Hep B, Hep C, HIV serologies This case was discussed with software developer consultant Dr. Thapa who agree with the above assessment plan. Please page [phone] with questions. Santiago Mejía MD MS PGY-2 Internal Medicine NT REPRESENTATIVE Associated attestation - Mariel Thapa M.B.BAdalidS. - 04/10/2023 4:35 PM CLIENT REPRESENTATIVE I saw and evaluated the patient, participating in the jorge portions of the service. I reviewed the resident/fellow???s note. I agree with the resident/fellow???s findings and plan. Met with patient today. 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 We discussed the diagnosis with her as a team. * Syed Cruz M.B.BAdalidS. - 04/10/2023 6:09 AM CST Images from the original note were not included. [facility] Medicine 2 ([facility]) PROGRESS NOTE SUBJECTIVE Patient fell feels well in herself this morning. We discussed the preliminary flow cytometry results and reiterated that we are waiting for bone marrow biopsy confirmation. Overview: Vitals within normal range Diet: 20% expected calorie intake from oral. Adult Diet Dysphagia; Thin (TN0); Soft and Bite-Sized (SB6). NG feeds with Nutren 1.5 (RTH) PT: slowly progressing. PT dysphagia: ongoing dysphagia - next will assess readiness for diet upgrade Improved diarrhea: 2x type 4 stools (previously 4x type 5 stools) s/p isamar flakes and imodium Labs Thiamine was 56 (low) 04/08: Stable pancytopenia: Hemoglobin 9.1, platelets 56, leukocytes 2.9 Refeeding labs: Potassium, phosphorus, magnesium all within range now after phosphorus repletion yesterday. Improving Creatinine 1.02 (1.14, 1.23, baseline 1.05) Micro so far negative except for EBV DNA under 35 low-level detection Borderline Hypercalcemia of 10.3. Other electrolytes within range. EMG/nerve conduction negative Bilateral renal ultrasound: Stable mild right-sided pelvocaliectasis. No obstructive lesions seen within the kidney and bladder ultrasound. Bone marrow, flow cytometry: Involved by a CD5-negative, [id number] B-cell lymphoproliferative disorder, kappa light chain-restricted (ddx marginal zone, lymphoplasmacytic, or follicular lymphoma). I have reviewed the current medication list. On thiamine as per Wernicke's protocol OBJECTIVE VITAL SIGNS Temperature: [36.7 ??C-36.9 ??C] 36.9 ??C Resp Rate: [16] 16 Blood Pressure: (123-149)/(61-81) 123/72 SpO2: [94 %-96 %] 95 % Weight: [56.5 kg] 56.5 kg BMI (Calculated): [25.1 kg/m??] 25.1 kg/m?? Pulse Rate: [77-87] 82 PHYSICAL EXAM General: Alert, interactive, not acutely ill. Skin: No rashes or lesions. Eyes: Pupils equal and round. Sclera anicteric. ENT: Hearing grossly intact. Dentition intact. No oral or pharyngeal erythema or lesions noted. Lungs: Clear to auscultation. No wheezes or crackles. Reduced bibasilar air entry and reduced whispered pectoriloquy suggestive of small effusions. Heart: Cap refill time under 2 seconds and moist mucous membranes. Regular rate and rhythm. No murmurs appreciated. No lower extremity edema. Abdomen: Soft, bowel sounds present. Neurological Examination 04/07 Summary of neurologic exam: Cognitive impairment manifesting with bradyphrenia, deficits in attention, calculation, abstraction, recent and remote memory and some disorientation. Subtle quadriparesisin upper motor neuron pattern with a length-dependent proprioceptive loss in the upper and lower limbs. DIAGNOSTICS I have personally reviewed the laboratory data and imaging since admission, and in/outs for past 72hours. Positives: IgM kappa small monoclonal gammopathy Frederic free light chain serum 2.9 Bone marrow, flow cytometry: Involved by a CD5-negative, [id number]-glipdkiz B-cell lymphoproliferative disorder, kappa light chain-restricted (ddx marginal zone, lymphoplasmacytic, or follicular lymphoma) Vitamin B6 <2, pyridoxine low, nicotinic acid low B12 1300, zinc low 50 EBV low volume quantification under 35 plasma Pending tests include: - bone marrow biopsy - fat aspirate - Labs as detailed below ASSESSMENT / PLAN Ms. Colon is hospitalized on [facility] ([facility]) for evaluation and management of progressive weakness and confusion. Medical comorbidities include history of mild cognitive impairment, breast cancer in remission, non-melanoma skin cancer, anxiety, depression, osteopenia, GERD, recent COVID infection in February 2023, IgM kappa gammopathy, B12 deficiency on supplementation. With regard to her hypercalcemia, etiology could be secondary to calcium and vitamin-D supplementation combined with low p.o. intake and dehydration. It has improved with IV fluids. PTH was low and vitamin D levels were within normal range. PTHrP was negative. However, given this patient's history of breast cancer, and IgM kappa gammopathy there is some suspicion for an underlying malignant process driving this. Indeed, the patient has recent development of splenomegaly and new pancytopenia. To this end, hematology was consulted and a bone marrow biopsy and PET scan or undertaken. PET-CT has identified FDG avid splenomegaly and bone marrow suggestive of a lymphoproliferative process. Leukemia/lymphoma serum flow is suggestive of CD5 and CD10 negative B-cell lymphoproliferative disorder but results of thebone marrow biopsy are pending. Due to recent poor oral intake and concern for malnutrition, and NG tube was placed on 04/06 and tube feeding advanced. The patient's refeeding syndrome has resolved and we will liberalize laboratorychecks to twice weekly. Vitamin B6 and zinc were also low and we will supplement these. Thiamine isbeing repleted at Wernicke's Syndrome treatment doses given her encephalopathy. From a neurological point of view, this lady is unfortunately exhibiting a subacute and progressiveencephalopathy over the last 1-2 months exacerbated by COVID infection in February. This is on a background of mild cognitive impairment, parkinsonism, and gait instability for which he was evaluated in March 2022 by our Neurology colleagues. On examination, she has bradyphrenia and cognitive impairment manifesting with deficits in attention, calculation, abstraction, recent and remote memory and some disorientation. She also has subtle quadriparesis in upper motor neuron pattern with a length-dependent proprioceptive loss in the upper and lower limbs raising concern for a myeloneuropathy although an EMG was negative. Although this is my first time meeting her the reports improvement in alertness and engagement. MRI of the head is unrevealing but MRI cervical spine does show some cervical spondylosis without overt cord compression or cord signal change from C4-C6. Compression here could certainly result in the pyramidal pattern seen on lower limb examination although upper limb reflexes are uncharacteristic brisk as well. The macroglossia, encephalopathy, laboratory abnormalities and proprioceptive deficits raised concern for a metabolic etiology. She is receiving Wernicke's dose IV thiamine. Lymphoproliferative conditions including Deja Fan syndrome and amyloidosis could be playing a role and remain on the differential given the other described findings. EMG was unrevealing. A broad workup will be undertaken, including a PATIENT REGISTRATION REP demyelination panel, and fat aspirate for amyloidosis. Consideration could be given to need for LP. Neurology is following for further assistance. Barriers to discharge include nutrition, oral intake, debility which seem to be mostly acute over the last 1-2 months, but on a background of chronic mild cognitive impairment. We will continue to involve our care management, nutrition, physical therapy and occupational therapy colleagues with anticipated SNF discharge or transferred to oncology/hematology once further workup is complete. Today's plan: Sleep enhancement Liberalize labs to twice weekly Ongoing nutrition, PT, PTO dysphagia input Continue NG feeding, calorie count, advancement of oral diet, vitamin and electrolyte replacement Await results of bone marrow biopsy Pending results of bone marrow biopsy recontact Neurology and acquire regarding paraneoplastic screen Fat pad biopsy undertaken - await results Await results of pending workup and ongoing Hematology and Neurology input # Generalized weakness # Subacute encephalopathy on a background of mild cognitive impairment # Mild quadriparesis # Concern for myeloneuropathy # Length-dependent proprioceptive deficits # History of gait instability # History of mild cognitive impairment # History of parkinsonism Neurology following, appreciate recommendations EMG/NCS: unrevealing Fat aspirate biopsy for evaluation of amyloidosis Continue Wernicke's dose IV thiamine Vitamin B6 supplementation Follow broad laboratory base workup Consideration could be given to LP if above workup unrevealing PT/OT # Pancytopenia # FDG avid splenomegaly # Diffuse FDG avid bone marrow # History of IgM kappa gammopathy # Frederic free light chains 2.9 # Suspicion for lymphoproliferative disorder # Low grade EBV quantification PTHrP negative. EBV <35 Heme consulted, appreciate recommendations Leukemia/lymphoma flow cytometry Follow results of bone marrow biopsy Labs as per Heme: 1,25 vitamin D, VEGF # Hypercalcemia # Refeeding syndrome, resolved # Hypokalemia, hypomagnesemia, hypophosphatemia, resolved # Severe malnutrition # Macroglossia Twice weekly labs Nutrition following, appreciate recs Continue NG tube feeds while evaluation pending Hold home calcium, vitamin D supplementation, and hydrochlorothiazide Continue aggressive thiamine repletion per neurology recommendations Pyridoxine supplementation # Mild rise in creatinine not meeting criteria for DIDIER, improved # 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 No obstructive Urology recommend monitoring renal function and if deteriorates -> CT urogram # Mood: Continue home bupropion and escitalopram # GERD: continue PPI # Glaucoma: continue home timolol, brimonidine eye drops, ketorolac eye drops # History of breast cancer Family reports patient is not currently on hormone therapy due to side effects. She is monitored with mammogram, most recently 07/14/2022 without evidence of recurrence Baseline Mobility: BMAT Level 3 (Able to stand but cannot take steps without help) Diet: Adult Diet Dysphagia; Thin (TN0); Soft and Bite-Sized (SB6) Tubes/lines: PIV and Lyon VTE prophylaxis: heparin Code status: DNR Surrogate Decision Maker: Spouse, Philippe Disposition: Uncertain Severe Malnutrition The patient meets the ASPEN Criteria of malnutrition based on: Energy Intake: Less than or equal to 75% of estimated energy requirement for greater than or equal to 1 month Interpretation of Weight Loss: greater than 5% 1 month Body Fat: Mild Loss Muscle Mass: Mild Loss This is in the context of Chronic Illness. Malnutrition Present Upon Admission: Yes Agree with Registered Dietitian's assessment and treatment plan: Interventions: Medical food supplement, Increase nutrient intake with small, frequent meals and/or snacks, Assess oral intake with calorie count Plan discussed with [facility] ([facility]) Support Associate, Dr. Jaimes, who was present during jorge portions of the evaluation today. Please page the [facility] Medicine [facility] ([facility]) service pager at [phone] Syed Martinez, ANDREINABS PGY1 Pager: [phone] Portions of the record may have been created with voice recognition software. NT REPRESENTATIVE Associated attestation - Raymond Jaimes M.D. - 04/10/2023 1:24 PM CLIENT REPRESENTATIVE I saw and evaluated the patient, participating in the jorge portions of the service. I reviewed the resident/fellow???s note. I agree with the resident/fellow???s findings and plan. 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 [place] red stain negative for amyloid. We await fat aspirate. Will discuss bone marrow findings with Hematology and Neurology. Discuss role for paraneoplastic antibody testing with Neurology. Oral intake remains suboptimal. Continue NGT feeds. Depending on plans of Hematology, would consider Nutrition Support consultation for consideration of PEG placement. From a functional status standpoint, she may benefit from rehabilitation at a SNF on discharge, butwe will need to clarify any plans for lymphoma-directed therapy with Hematology first. * Brenda Salazar N, O.T. - 04/09/2023 4:27 PM CST Occupational Therapy Acute Hospital Inpatient Treatment SUBJECTIVE Patient's Name: Darcy Colon Referring/Attending Provider: Raymond Jaimes M.D. Medical Diagnosis: Hypercalcemia [E83.52] Hypokalemia [E87.6] Weakness General [R53.1] Reason for Referral: Occupational Therapy Evaluation and Treatment OT general acute Onset Date: 04/02/23 Payor: MEDICARE / Plan: MEDICARE A AND B / Product Type: Medicare / History of Present Illness:Per medical record, Ms. Colon is hospitalized on [place] [id number] ([facility]) for evaluation and management of progressive weakness and confusion. Medical comorbidities include history of mild cognitive impairment, breast cancer in remission, non-melanoma skin cancer, anxiety, depression, osteopenia, and GERD. OT dysphagia consulted to assess safety with oral intake. Per medical record, she has been having episodes of nausea/gagging when food touches her tongue. Nursing reports she pocketed her pills when attempting to take them whole and they noticed liquid running out of her mouth following sips of liquid. Patient/Caregiver Goals: no goals stated Patient Comments: Patient greeted sitting in bed, agreeable to OT intervention using extensive motivational therapy. No complaints of pain or discomfort voiced. Precautions Other Precautions: Fall Risk, decreased functional use of right upper extremity dominant hand; generalized weakness; double vision, aspiration precautions OBJECTIVE Cognition Cognitive assessment method: Therapist observations Arousal/Alertness: Inconsistent responses to stimuli Attention: Impairments noted Sustained: Mild Divided: Mild Alternating: Mild Initiation: Slow/delayed initiation (And at times does not initiate) Following Commands: One Step Commands, Two Step Commands One Step Commands: Follows one step commands with increased time, Follows one step commands with repetition Two Step Commands: Follows two step commands with repetition, Follows two step commands with increased time Feeding Feeding Location: Supported sitting in bed Feeding Delivery: Assessed, Educated, Therapist Assisted, Modified/Adapted Feeding Level of Assistance: Total assistance Feeding Comments: Total assist with support provided to right upper extremity at elbow and wrist tofeed self to increase independence and self reliance with self feeding. Patient able to participateup to 15-20% for self feeding. OT facilitated increase functional use of right upper extremity in self feeding using the spoon and the cup method for drinking the soup from the cup by holding the cupwith bilateral upper extremities secondary to weakness. While OT was assisting patient with increasing independence in self feeding using right upper extremity for intake of tomato soup, dysphagia OT also stopped by in the middle of the general OT treatment session so there was a partial overlap of 5+ minutes of general OT and dysphagia OT as dysphagia OT was trying to assess safety with oral intake and general OT continued to work with patient on increasing her ability to feed self using right upper extremity for intake of soup with silverware-spoon, followed by taking a sip from the cup without a straw to begin with and with the straw as she progressed to show safety with oral intake with dysphagia OT. OT discussed with nursing to order soup spoons for patient as the regular spoon was limiting her oral intake for the Soup and that is why the soup was transferred to the cup so she could take small sips from the cup versus using the spoon as the soup was now cold and drink able from the cup. ADL Comments ADL Comments: OT facilitated optimal positioning in supported sitting in the bed with head of the bed elevation to 63+ degrees with good caregiver training and nursing training. OT encouraged patientto come out of the bed to sit in the bedside chair however she declined x2, nursing was made aware of the same and nursing was educated for patient to be in the bedside chair for all 3 meals to increase functional use of right upper extremity during mealtimes. Nursing and family in agreement. Other Transfers Comments: Patient declined to transfer from the bed to the bedside chair for mealtime. So patient was positioned optimally in the bed at the highest head of the bed elevation prior to lunch. Team Communication: Patient's nurse was contacted and patient's status was discussed, Other (comment) (Discussed patient care with dysphagia OT) Outcome Measures [facility] Inpatient Short Form: Putting on and taking off regular lower body clothing?: Total Putting on and taking off regular upper body clothing?: Total Taking care of personal grooming such as brushing teeth?: Total Bathing (including washing, rinsing, drying)?: Total Toileting, which includes using toilet, bedpan, or urinal?: Total Eating meals?: Total Daily Activities Raw Score (max 24): 6 Daily Activities Standardized Score: 17.07 Interpretation: Clinicians answer the [facility] Inpatient Short Form based on observed patient activity and/or clinical judgement (ie. patient can be scored without physically performing each activity) Based on scoring guidelines using the raw score value: Those going to home had an average score at or above 18 Those going to facility had an average score at or below 17 Patient was left in bed with bed alarm on and dysphagia therapist continuing to work with patient on safety with oral intake at end of session with call light in reach, all needs met and questions answered. Assessment Discharge Therapy Needs - OT: Ongoing skilled occupational therapy Skilled therapy can include occupational therapy provided by home health, outpatient clinic, or a post-acute facility. The location of these services is determined by the patient's care team in partnership with patient/family. Level of Care Needed - OT: Assistance with toileting, Assistance with dressing, Assistance with toilet/shower transfers, Assistance with meal preparation, Physical assistance needed, Assistance with medication set up/administration, Assistance with personal financial advisor, Assistance with transportation, Assistance with showering/bathing, Assistance with housekeeping, Assistance with eating/feeding,Cognitive assistance needed, Assistance with shopping Recommended Adaptive Equipment - OT: Other (Comment) (Ongoing assessment) Barriers to Discharge Home: Current functional status, Fall risk, Inaccessible home environment, Safety concerns Barriers to Discharge Comments: 2 stairs to enter residence. Clinical Impression: Patient seen for general treatment. Today's session focused on increasing functional use of right upper extremity during mealtimes by positioning patient as upright as possible in the bed as patient declined to come out to the bedside chair. Patient able to tolerate the highest upright positioning in bed during self-feeding skills for increasing independence with oral intake of tomato soup delivered from spoon, cup, and with use of straw. OT educated nursing, family, patient for patient to be eating her meals in bedside chair versus the bed to increase functional use of right upper extremity in self feeding. All in agreement. Patient continues to be below their functional baseline in self cares, transfers and mobility, patient will continue to benefit from OT intervention to increase independence and self reliance in selfcares transfers and mobility so she can be at baseline. Rehab potential: Ms. Colon has good potential to achieve established occupational therapy goals within the time frame outlined below. Functional Goals: OT Goal #1: Patient will demonstrate all functional transfers with SBA to progress towards baseline OT Goal #1 Status: Ongoing OT Goal #2: Goal 2&3 Collated: Patient will demonstrate total body dressing, and toileting withminimal assistance of 1 to progress towards baseline OT Goal #2 Status: Ongoing OT Goal #3: New goal added 04/09/2023: Patient will increase functional use of right upper extremity in self feeding+ grooming with minimal assist to increase independence and self reliance in self cares OT Goal #3 Status: Slowly progressing OT Goal #4: Patient will tolerate sitting unsupported at EOB for greater than 10 minutes as to facilitate independent participation in self-cares (grooming, feeding, upper body dressing) OT Goal #4 Status: Ongoing Progress: Improving as expected, Progressing toward goals Plan OT Frequency: OT Amount: 1 visit per day OT Frequency: 5 times per week OT Inpatient Duration : Until goals are met or hospital discharge Requires Inpatient OT Follow-Up: Yes OT - Next Inpatient Appointment: 04/10/23 Plan: Alter current plan (Goal modified and new goal added) OT Plan Comments: Next session: Increase functional use of right upper extremity in self feeding, seated grooming, trunk/core strengthening exercises at EOB, progress transfers/mobilty as able; progress standing tolerance (with use of Martir Steady or FWW) Treatment interventions may include: Treatment Interventions: Therapeutic exercise, Therapeutic functional activity, Self-care/home management, Cognitive skills training Billing: Time Spent with Patient Therapeutic Interventions Home Management Training (min): 21 min Time Tracking Total Timed Units (min): 21 min Total Treatment Time (min): 41 min Amara Salazar O.T. NT REPRESENTATIVE * Jerome Joyner P.TJonh - 04/09/2023 12:45 PM CST Physical Therapy Inpatient Treatment SUBJECTIVE Patient's Name: Darcy Colon Referring/Attending Provider: Raymond Jaimes M.D. Reason for Referral: Physical Therapy Evaluate and Treat History of Present Illness: Darcy Colon is a 82 y.o. female who was admitted to [facility] in [place] on 04/02/2023 for Hypercalcemia [E83.52] Hypokalemia [E87.6] Weakness General [R53.1] Precautions Other Precautions: Fall Risk, decreased functional use of right upper extremity dominant hand; generalized weakness; double vision, aspiration precautions Pain Assessment: Pain not reported during session. Patient/Caregiver Goals: No goals stated Subjective Comments: Patient Family agreed to session. OBJECTIVE Vital Signs Vitals monitored throughout session; within normal ranges. Outcome Measures: AM-PAC Inpatient Short Form: AM-PAC Basic Mobility (V.2) How much help from another person do you currently need???If the patient hasn't done an activity recently, how much help from another person do you think he/she would needif he/she tried? 1. Turning from your back to your side while in a flat bed without using bedrails?: A Little 2. Moving from lying on your back to sitting on the side of a flat bed without using bedrails?: A Lot 3. Moving to and from a bed to a chair (including a wheelchair)?: A Little 4. Standing up from a chair using your arms (e.g., wheelchair, or bedside chair)?: A Little 5. To walk in hospital room?: A Lot 6. Climbing 3-5 steps with a railing?: Total [facility] Basic Mobility (V.2) Raw Score: 14 [facility] Basic Mobility (V.2) Standardized Score: 35.55 Interpretation: Based on scoring guidelines using the raw score value: Those going to home had an average score at or above 18 Those going to facility had an average score at or below 17 Clinicians answer the [facility] Inpatient Short Form based on observed patient activity and/or clinical judgement (ie. patient can be scored without physically performing each activity) Therapeutic Interventions: ROLLING: Assistance Level: Minimal Assistance of 1 Device: head of bed elevated and bedrail Assistance/Cueing: verbal and tactile for Technique and Upper extremity reaching Delivery: educated, assessed, facilitated, and assisted SUPINE TO SIT: Assistance Level: Minimal Assistance of 1 Device: head of bed elevated and bedrail Assistance/Cueing: verbal, tactile, and visual for Logrolling, Lower extremity movement/management,Technique, and Upper extremity placement Delivery: educated, assessed, facilitated, and assisted SCOOTING: Assistance Level: Minimal Assistance of 1 Surface: Bed Assistance/Cueing: verbal and tactile for Technique and Upper extremity placement SIT TO STAND: Assistance Level: Contact Guard Assistance, Minimal Assistance of 1 Device: gait belt and front wheeled walker Surface: Bed, Chair, and Commode Assistance/Cueing: verbal, tactile, and visual for Anterior weight shifting, Lower extremity placement, Manual facilitation provided for force generation, Sequencing, Upper extremity placement, and Walker placement Delivery: educated, assessed, facilitated, and assisted STAND TO SIT: Assistance Level: Contact Guard Assistance, Minimal Assistance of 1 Device: gait belt and front wheeled walker Surface: Bed, Chair, and Commode Assistance/Cueing: verbal, tactile, and visual for Alignment with seated surface, Eccentric control, and Upper extremity placement Delivery: educated, assessed, facilitated, and assisted PIVOT TRANSFERS: Surface:Chair and Commode to Chair and Commode Assistance Level: Minimal Assistance of 1 Device: gait belt and front wheeled walker Approach: to the left, to the right Assistance/Cueing: verbal and tactile for Placement of gait aid, Sequencing, and Upright posture Delivery: educated, assessed, facilitated, and assisted GAIT: Distance: 2.43 meters Minimal Assistance of 1 Device: gait belt and front wheeled walker Quality: decreased heel strike, decreased step height, decreased step length, downward gaze, forward flexed posture, shuffling Assistance/Cueing:verbal, tactile, and visual for Forward gaze, Heel strike, Increased step length,Placement of gait aid, and Upright posture Comments: THERAPEUTIC EXERCISE: Seated Therapeutic Exercise: Side: bilateral Mode: active range of motion Exercises: Ankle pumps, Long arc quads, Marching, Hip adduction, and Hip abduction Repetitions: 03/12 Assist/cueing: Eccentric control and Full range of motion Education : The patient/family educated on safe transfer techniques with functional mobility/activity. The patient's status was discussed and the following coordination of care occurred with the: coil winder/Caregiver Present: Patient's Patient was left in bedside chair at end of session with call light in reach, all needs met and questions answered. Assessment Discharge Therapy Needs - PT: Ongoing skilled physical therapy Skilled therapy can include physical therapy provided by home health, outpatient clinic, or a post-acute facility. The location of these services is determined by the patient's care team in partnership with patient/family. Level of Care Needed - PT: Assistance with transfers (Comment), Assistance with walking and moving around the home, Assistance with bed mobility, Assistance with stairs, Cognitive assistance needed, Physical assistance needed Equipment Recommended - PT: Hospital bed, Wheelchair, Mechanical lift Barriers to Discharge Home: Current functional status, Fall risk, Inaccessible home environment, Safety concerns Barriers to Discharge Comments: 2 stairs to enter residence. From a physical therapy perspective, the level of care above has been recommended for Ms. Colon after hospital discharge. This level of care is based on her functional abilities during today's session. This may change throughout the hospital course and will be updated as appropriate. Clinical Impression: Patient pleasant agreeable to treatment session, made improvements towards increasing safety and independence with functional mobility today. Patient was able to complete her bed mobility with minimal assistance; transfers with minimal to contact guard assistance; and was able to ambulate 2.43 meters with front wheel walker and minimal assistance. Patient demonstrated improved activity tolerance and stand balance while completing her standing tasks however continues to remain below her prior functional mobility baseline and would benefit from ongoing physical therapy skilled intervention to optimize her safety and independence with her transfers and ambulation. Rehab potential: Ms. Colon has Good potential to achieve established physical therapy goals withinthe time frame outlined below. Progress: Slow progress, limited activity tolerance, Slow progress, cognitive deficits Plan PT Plan Comments: Continue to progress mobility, transfers, ambulation, balance and safety. Stair training when appropriate. Functional Goals: PT Inpatient Goals PT Goal #1: Patient will be able to complete all bed mobility independently with no physical assistand no verbal cues necessary in order to facilitate return to PLOF. PT Goal #1 Status: Slowly progressing PT Goal #2: Patient will be able to complete STS transfer from edge of bed to standing modified independent utilizing front wheel walker for assist, in order to allow for functional transfers at home. PT Goal #2 Status: Slowly progressing PT Goal #3: Patient will be able to ambulate 30m modified independent utilizing front wheel walker for assist, in order to allow for functional ambulation upon DC. PT Goal #3 Status: Slowly progressing PT Goal #4: Patient will be able to safely navigate 2 stair(s) under supervision in order to allow access into/to all levels of their home prior to discharge. PT Goal #4 Status: Ongoing Treatment Plan: Plan: Continue with current plan PT Frequency: 5 times per week PT Inpatient Duration : Until goals are met or hospital discharge Requires Inpatient Follow-Up: Yes PT - Next Inpatient Appointment: 04/10/23 Patient unable to verbalize agreement to the plan of care and goals due to mental status or level of consciousness, but family members present to consult and agree with the plan as stated above. Treatment interventions may include: Treatment/Interventions: Therapeutic exercise, Therapeutic functional activity, Neuromuscular re-education, Gait training, Self-care/home management Billing: Time Spent with Patient Therapeutic Interventions Gait Training (min): 10 min Therapeutic Activity (min): 20 min Therapeutic Exercise (min): 10 min Time Tracking Total Timed Units (min): 40 min Total Treatment Time (min): 40 min Danisha BejaranoTJonh NT REPRESENTATIVE * Michelle Rasmussen O.TAdalid, O.T.D. - 04/09/2023 12:00 PM CST Occupational Therapy Dysphagia Treatment SUBJECTIVE Patient's Name: Darcy Colon Referring/Attending Provider: Raymond Jaimes M.D. Medical Diagnosis: Hypercalcemia [E83.52] Hypokalemia [E87.6] Weakness General [R53.1] Reason for Referral: Reason for Referral: OT dysphagia Onset Date: 04/02/23 Payor: MEDICARE / Plan: MEDICARE A AND B / Product Type: Medicare / History of Present Illness: History of Present Illness: Per medical record, Ms. Colon is hospitalized on [place] [address] ([facility]) for evaluation and management of progressive weakness and confusion. Medical comorbidities include history of mild cognitive impairment, breast cancer in remission, non-melanoma skin cancer, anxiety, depression, osteopenia, and GERD. OT dysphagia consulted to assess safety with oral intake. Per medical record, she has been having episodes of nausea/gagging when food touches her tongue. Nursing reports she pocketed her pills when attempting to take them whole and they noticed liquid running out of her mouth following sips of liquid. Family/Caregiver Present: Yes (, granddaughter) Patient/Caregiver Goals: no goals stated Patient Comments: Patient seated upright in bed working with general OT during mealtime. Precautions Other Precautions: Fall, cog, aspiration OBJECTIVE Precautions Other Precautions: Fall, cog, aspiration OT Dysphagia Treatment: Educated patient and/or caregiver on diet recommendations Educated patient and/or caregiver on compensatory techniques Educated patient and/or caregiver on aspiration precautions Observed a meal and provided feedback/instruction to patient Does the patient have a tracheostomy? No. Team Communication: Patient's nurse was contacted and patient's status was discussed, Discussed patient's care with OT Co-treatment with: Occupational Therapy Patient was left in bed at end of session with call light in reach, all needs met and questions answered. Additional Staff Present During Session: General OT Assessment Time Dysphagia Assessment Completed: [id number] Clinical Impression/Recommendations: Patient seen for dysphagia treatment this date. Today's session focused on meal observation to assess diet tolerance following diet initiation. Patient seated upright in bed with general OT provider assisting with self-feeding skills. Assessed safety with oral intake of tomato soup delivered from spoon, cup, and with use of straw resulting in no overt signs of aspiration. Patient declined trials of advanced textures this date. Provided extensive education to patient/family on aspiration precautions and recommendation for patient to eat smaller meals more frequently throughout the day based onenergy levels. Patient currently taking medications through NG tube at this time. It is reasonable to for patient to continue on Soft & Bite-sized (SB6) and Thin liquids (TN0) with strict adherence to aspiration precautions. Patient must be seated upright and alert for all oral intake. Patient is below their functional baseline with swallowing function and skilled dysphagia services are medically necessary for this patient to safely progress oral intake. CURRENT DIET: Diet Recommendations - Solids: IDDSI Level 6 Soft & Bite-Sized Diet Recommendations - Liquids: IDDSI Level 0 Thin Recommended Form of Meds: Crushed (per physician/pharmacy approval), With puree, Feeding tube Transitional foods allowed: yes Recommendations: Dysphagia treatment Recommended Aspiration Precautions: Recommended Aspiration Precautions: Sit upright with all oral intake and when completing oral cares, Eat small bites, take small sips, eat slowly, Good oral care 3-5 times a day, Avoid lying down for30 minutes after meals Recommended Compensation Techniques/Adaptive Equipment: Recommended Compensation Techniques/Adaptive Equipment: Requires supervision/assistance, Alternate solid food with small amounts of liquids Positioning Recommendations: Upright as possible for all oral intake, Remain upright for 30-60 minutes after meals Recommendations for safe oral cares are as follows: -assist needed with regular toothbrush/toothpaste Rehab potential: Ms. Colon has good potential to achieve established occupational therapy goals within the time frame outlined below. Functional Goals and Timeframes: Goal #1: Patient will be able to tolerate least restrictive diet with no overt signs of aspiration.Progressing Goal #2: Patient and/or caregiver will verbalize understanding of at least 3 aspiration precautions. Progressing Plan Patient/caregiver agrees with the plan of care and goals. Treatment Interventions: Swallow dysfunction treatment OT Dysphagia Duration: Until goals are met or hospital duration OT Dysphagia Amount: 1 visit per day OT Dysphagia Frequency: 3 times per week Inpatient OT Dysphagia Received On Date: 04/09/23 OT - Next Inpatient Dysphagia Appointment: 04/10/23 Plan: Continue with current plan Plan Comments: next session: meal obs, assess advanced textures Re-evaluate: As clinically indicated Treatment interventions may include: Plan for Next Session: Observe a meal, Educate patient and/or caregiver on aspiration precautions, Assess readiness for diet upgrade Time Spent with Patient Therapeutic Interventions Swallow Dysfunction Treatment (min): 20 min Time Tracking Total Treatment Time (min): 20 min For any questions feel free to page OT dysphagia Sunday through Sunday 7:00am to 4:00pm: Our service pager at [facility] ([place]): #[phone] Our service pager at [facility]: #[phone] NT REPRESENTATIVE * Enoch Garcia - 04/09/2023 7:40 AM CST Pharmacist Progress Note Reason for admission: progressive weakness and confusion PMH: history of mild cognitive impairment, breast cancer (treated with lumpectomy and sentinel nodedissection, hypofractionated whole breast radiation, anastrozole, tamoxifen), non-melanoma skin cancer, anxiety, depression, osteopenia, and GERD OBJECTIVE Home medications per RPh/RN Held: carbidopa-levodopa and donepezil (never started), aspirin, HCTZ, hydroquinone 4% cream, calcium-vitamin D, vitamin D3, vitamin B12 Changed: acetaminophen (changed frequency), bupropion to IR (tube administration), PPI interchange New: senna-S, MiraLAX, prochlorperazine, MV, thiamine, first mouthwash, pyridoxine VTE Prophylaxis: SQ Heparin (watch plts - 55 from 04/07) Renal function: Estimated Creatinine Clearance: 33.6 mL/min (A) (by C-G formula based on SCr of 1.14 mg/dL (H)). Baseline Scr ~1.0 ASSESSMENT / PLAN Weakness, splenomegaly & pancytopenia - PET scan found splenomegaly & diffuse bone marrow activity c/f lymphoproliferative process; bone marrow biopsy and fat aspirate biopsy pending. Ongoingworkup per neuro and heme. Hypercalcemia improved. 1,24-hydroxyvitamin D level pending. Holding home calcium-vit D supplementation. Immunoglobulins, VEFG labs pending FEN - NG placed 04/06 for feeds and most medications. On high dose thiamine for potential Wernicke's.Monitoring and replacing refeeding electrolytes and vitamins - nutrition consult. B6 level low - new pyridoxine 100 mg daily Zinc came back slightly low (58), on a MVM. Renal - Appears to be near baseline. Possible splenomegaly compressing UPJ noted on PET-CT, planning renal US today Disposition - PT/OT consulted. Will likely require SNF placement. Enoch Garcia NT REPRESENTATIVE * Syed Cruz M.B.B.S. - 04/09/2023 7:01 AM CST R[facility] Medicine 2 ([facility]) PROGRESS NOTE SUBJECTIVE Patient fell feels well in herself this morning. In a pleasant mood. Not endorsing any cardiovascular, GI, or systemic symptoms. Overview: Vitals within normal range. +1.4. 4x type 5 stools. C diff negative. Likely tube feeds. 04/08: Stable pancytopenia: Hemoglobin 9.1, platelets 56, leukocytes 2.9 Refeeding labs: Potassium, phosphorus, magnesium all within range now after phosphorus repletion yesterday. Creatinine 1.14 (1.23, baseline 1.05) Micro so far negative except for EBV DNA under 35 low-level detection Borderline Hypercalcemia of 10.3 today. Other electrolytes within range. EMG/nerve conduction study unrevealing I have reviewed the current medication list. On thiamine as per Wernicke's protocol OBJECTIVE VITAL SIGNS Temperature: [36.5 ??C-37.2 ??C] 37.2 ??C Resp Rate: [14-16] 16 Blood Pressure: (134)/(70-79) 134/70 SpO2: [94 %-98 %] 95 % Pulse Rate: [83-93] 93 PHYSICAL EXAM General: Alert, interactive, not acutely ill. Skin: No rashes or lesions. Eyes: Pupils equal and round. Sclera anicteric. ENT: Hearing grossly intact. Dentition intact. No oral or pharyngeal erythema or lesions noted. Lungs: Clear to auscultation. No wheezes or crackles. Reduced bibasilar air entry and reduced whispered pectoriloquy suggestive of small effusions. Heart: Cap refill time under 2 seconds and moist mucous membranes. Regular rate and rhythm. No murmurs appreciated. No lower extremity edema. Abdomen: Soft, bowel sounds present. Neurological Examination GCS 15. General: Awake and alert, no acute distress Mental Status: Alert and to person, place, not year or day of the week. She is oriented to month. Inattention on naming months backwards. Speech is less bradyphrenic today, fluent and coherent with no paraphasic errors or neologisms. No evidence of gross dysarthria. No neglect. Difficulty with calculation. Abstraction is improved. Difficulty with recent and remote memory. Able to follow simple but not complex commands. Some limb kinetic apraxia. Unable to initiate Luria's test. Examination 04/07 Cranial Nerves: CN II: Visual peters full to confrontation. Pupils equal, round, and briskly reactive to light. CN III, IV, : No eye deviation at primary gaze. Full range of extraocular movements. Smooth pursuits. Normal saccades. CN V: Facial sensation to light touch intact and symmetric in V1-V3 distributions bilaterally. CN VII: Face symmetric with normal eye closure and smile. CN VIII: Not tested CN IX, X: Palate elevates symmetrically. Some dysphonia. Uvula midline CN XI: Shoulder shrug intact and symmetric. CN XII: Tongue midline without atrophy or fasciculations. Macroglossia with a fissuring and redness. Motor: Normal muscle tone and bulk. Intermittent resting tremor of the right thumb that comes out with postural re-emergence. No pronator drift. Left-sided Acuña. Right ankle clonus. Mild weakness of triceps and hamstrings bilaterally right worse than left. Other tested muscle groups within normal range for age. Brisk upper and lower limb reflexes, right worse than left. Right-sided crossed adductor. Right-sided Babinski. Joint position sense reduced to the knees in the lower limbs and equivocally to the interphalangealjoints in the upper limbs. Finger tracking test abnormal. Difficulty bringing fingers together in front of her with eyes closed. Patient having difficulty engaging with tuning fork exam of vibration.Sensation intact to light touch and pinprick. Coordination: No ataxia/dysmetria on [id number] testing but instead difficulty performing-due to proprioceptive deficit. Summary of neurologic exam: Cognitive impairment manifesting with bradyphrenia, deficits in attention, calculation, abstraction, recent and remote memory and some disorientation. Subtle quadriparesisin upper motor neuron pattern with a length-dependent proprioceptive loss in the upper and lower limbs. DIAGNOSTICS I have personally reviewed the laboratory data and imaging since admission, and in/outs for past 72hours. Positives: IgM kappa small monoclonal gammopathy Frederic free light chain serum 2.9 Vitamin B6 <2, pyridoxine low, nicotinic acid low B12 1300, zinc low 50 EBV low volume quantification under 35 plasma Negatives: HCV, HIV he is, Histoplasma, syphilis Urine M protein Folate LDH PTHrP Pending tests include: - bone marrow biopsy - fat aspirate - Labs as detailed below ASSESSMENT / PLAN Ms. Colon is hospitalized on [place] [address] ([facility]) for evaluation and management of progressive weakness and confusion. Medical comorbidities include history of mild cognitive impairment, breast cancer in remission, non-melanoma skin cancer, anxiety, depression, osteopenia, GERD, recent COVID infection in February 2023, IgM kappa gammopathy, B12 deficiency on supplementation. With regard to her hypercalcemia, etiology could be secondary to calcium and vitamin-D supplementation combined with low p.o. intake and dehydration. It has improved with IV fluids. PTH was low and vitamin D levels were within normal range. PTHrP was negative. However, given this patient's history of breast cancer, and IgM kappa gammopathy there is some suspicion for an underlying malignant process driving this. Indeed, the patient has recent development of splenomegaly and new pancytopenia. To this end, hematology was consulted and a bone marrow biopsy and PET scan or undertaken. PET-CT has identified FDG avid splenomegaly and bone marrow suggestive of a lymphoproliferative process. Leukemia/lymphoma serum flow is pending as are the results of the bone marrow biopsy. Hematology has recommended we pursuea 1,25 hydroxy vitamin-D level. Incidentally, splenomegaly was noted to be obstructing the left UPJ. Urology recommend monitoring renal function and CT urogram if function deteriorates; we will pursue renal ultrasound on Sunday. Due to recent poor oral intake and concern for malnutrition, and NG tube was placed on 04/06 and tube feeding advanced. Patient has had features of refeeding syndrome (hypokalemia, hypomagnesemia, hypophosphatemia) which we are repleting and monitoring closely. Vitamin B6 and zinc were also low andwe will supplement these. Thiamine is being repleted at Wernicke's Syndrome treatment doses given her encephalopathy. From a neurological point of view, this lady is unfortunately exhibiting a subacute and progressiveencephalopathy over the last 1-2 months exacerbated by COVID infection in February. This is on a background of mild cognitive impairment, parkinsonism, and gait instability for which he was evaluated in March 2022 by our Neurology colleagues. On examination today, she has bradyphrenia and cognitive impairment manifesting with deficits in attention, calculation, abstraction, recent and remote memory and some disorientation. She also has subtle quadriparesis in upper motor neuron pattern with alength- dependent proprioceptive loss in the upper and lower limbs raising concern for a myeloneuropathy. Although this is my first time meeting her the reports improvement in alertness and engagement. MRI of the head is unrevealing but MRI cervical spine does show some cervical spondylosis without overt cord compression or cord signal change from C4-C6. Compression here could certainly result in the pyramidal pattern seen on lower limb examination although upper limb reflexes are uncharacteristic brisk as well. The macroglossia, encephalopathy, laboratory abnormalities and proprioceptive deficits raised concern for a metabolic etiology. She is receiving Wernicke's dose IV thiamine. Lymphoproliferative conditions including Deja Fan syndrome and amyloidosis could be playing a role and remain on the differential given the other described findings. EMG was unrevealing. A broad workup will be undertaken, including a PATIENT REGISTRATION REP demyelination panel, and fat aspirate for amyloidosis. Consideration could be given to need for LP. Neurology is following for further assistance. Barriers to discharge include nutrition, oral intake, debility which seem to be mostly acute over the last 1-2 months, however there is documentation of parkinsonian symptoms over the past few years which have come and gone per neurology notes. We will continue to involve our care management, nutrition, physical therapy and occupational therapy colleagues with anticipated SNF discharge once further workup is complete. Will initiate NG tube feeds given Today's plan: Nutrition consult for question of optimizing oral intake and consideration for future PEG Continue NG feeding, calorie count, advancement of oral diet, vitamin and electrolyte replacement Fat pad biopsy undertaken 24hr urine protein and light chains as per Heme Nerve conduction study/EMG unrevealing Continue refeeding electrolytes checks to once daily Await results of pending workup and ongoing Hematology and Neurology input Continue working with PT and OT # Generalized weakness # Subacute encephalopathy # Mild quadriparesis # Concern for myeloneuropathy # Length-dependent proprioceptive deficits # History of gait instability # History of mild cognitive impairment # History of parkinsonism Neurology following, appreciate recommendations EMG/NCS: unrevealing Fat aspirate biopsy for evaluation of amyloidosis Continue Wernicke's dose IV thiamine Vitamin B6 supplementation Follow broad laboratory base workup Consideration could be given to LP if above workup unrevealing PT/OT # Pancytopenia # FDG avid splenomegaly # Diffuse FDG avid bone marrow # History of IgM kappa gammopathy # Frederic free light chains 2.9 # Suspicion for lymphoproliferative disorder # Low grade EBV quantification PTHrP negative. EBV <35 Heme consulted, appreciate recommendations Leukemia/lymphoma flow cytometry Follow results of bone marrow biopsy Labs as per Heme: 1,25 vitamin D, VEGF # Hypercalcemia # Refeeding syndrome # Hypokalemia, hypomagnesemia, hypophosphatemia # Severe malnutrition # Macroglossia Refeeding labs once daily now Nutrition following, appreciate recs Continue NG tube feeds while evaluation pending Hold home calcium, vitamin D supplementation, and hydrochlorothiazide Nutrition labs pending including B vitamins, copper, zinc Continue aggressive thiamine repletion per neurology recommendations Pyridoxine supplementation # Mild rise in creatinine not meeting criteria for DIDIER # 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 She is monitored with mammogram, most recently 07/14/2022 without evidence of recurrence Baseline Mobility: BMAT Level 3 (Able to stand but cannot take steps without help) Diet: Adult Diet Dysphagia; Thin (TN0); Soft and Bite-Sized (SB6) Tubes/lines: PIV and Lyon VTE prophylaxis: heparin Code status: DNR Surrogate Decision Maker: Spouse, Philippe Disposition: Uncertain Severe Malnutrition The patient meets the ASPEN Criteria of malnutrition based on: Energy Intake: Less than or equal to 75% of estimated energy requirement for greater than or equal to 1 month Interpretation of Weight Loss: greater than 5% 1 month Body Fat: Mild Loss Muscle Mass: Mild Loss This is in the context of Chronic Illness. Malnutrition Present Upon Admission: Yes Agree with Registered Dietitian's assessment and treatment plan: Interventions: Medical food supplement, Increase nutrient intake with small, frequent meals and/or snacks, Assess oral intake with calorie count Plan discussed with [facility] Medicine 2 ([facility]) Support Associate, Dr. Jaimes, who was present during jorge portions of the evaluation today. Please page the [facility] Medicine 2 ([facility]) service pager at [phone] Syed Martinez, ANDREINABS PGY1 Pager: [phone] Portions of the record may have been created with voice recognition software. NT REPRESENTATIVE Associated attestation - Raymond Jaimes M.D. - 04/09/2023 4:05 PM CLIENT REPRESENTATIVE I saw and evaluated the patient, participating in the jorge portions of the service. I reviewed the resident/fellow???s note. I agree with the resident/fellow???s findings and plan. We await final results from bone marrow biopsy and fat aspirate. EMG obtained today was largely normal. We plan to continue to encourage oral intake, supplementing with nasogastric tube feeds. If oral intake remains suboptimal, we may need to discuss PEG tube placement, if consistent with the patient's goals of care. Encourage work with PT/OT. * Kyleigh Hopkins Pharm.D., R.Ph. - 04/08/2023 1:02 PM CST Pharmacist Progress Note Reason for admission: progressive weakness and confusion PMH: history of mild cognitive impairment, breast cancer (treated with lumpectomy and sentinel nodedissection, hypofractionated whole breast radiation, anastrozole, tamoxifen), non-melanoma skin cancer, anxiety, depression, osteopenia, and GERD OBJECTIVE Home medications per RPh/RN Held: carbidopa-levodopa and donepezil (never started), aspirin, HCTZ, hydroquinone 4% cream, calcium-vitamin D, vitamin D3, vitamin B12 Changed: acetaminophen (changed frequency), bupropion to IR (tube administration), PPI interchange VTE Prophylaxis: SQ Heparin (watch plts - 55) Renal function: Estimated Creatinine Clearance: 33.6 mL/min (A) (by C-G formula based on SCr of 1.14 mg/dL (H)). ASSESSMENT / PLAN Weakness, splenomegaly & pancytopenia - PET scan found splenomegaly & diffuse bone marrow activity c/f lymphoproliferative process; bone marrow biopsy pending. Ongoing workup per neuro and heme. Hypercalcemia improved. 1,24-hydroxyvitamin D level pending. Holding home calcium-vit D supplementation. FEN - NG placed 04/06 for feeds and most medications. On high dose thiamine for potential Wernicke's.Monitoring and replacing refeeding electrolytes. B6 level low - new pyridoxine 100 mg daily Zinc came back slightly low (58), on a MVM. Renal - Appears to be near baseline. Possible splenomegaly compressing UPJ noted on PET-CT, planning renal US tomorrow. Disposition - PT/OT consulted. Will likely require SNF placement. Pharm. JoannaDAdalid, R.Ph. [phone] NT REPRESENTATIVE * Syed Cruz M.B.B.S. - 04/08/2023 6:24 AM CST Images from the original note were not included. [facility] Medicine 2 ([facility]) PROGRESS NOTE SUBJECTIVE Patient fell feels well in herself this morning. Reports some frustration regarding need for assistance for ADLs. Otherwise in a pleasant mood. Not endorsing any cardiovascular, GI, or systemic symptoms. Overview: Vitals within normal range. +1.4. Last BM Date 04/07 Stable pancytopenia: Hemoglobin 9.1, platelets 56, leukocytes 2.9 Refeeding labs: Potassium, phosphorus, magnesium all within range now after phosphorus repletion yesterday. Creatinine 1.23 (baseline 1.05) Micro so far negative except for EBV DNA under 35 low-level detection I have reviewed the current medication list. On thiamine as per Therese's protocol OBJECTIVE VITAL SIGNS Temperature: [36.9 ??C-37 ??C] 37 ??C Resp Rate: [14-16] 16 Blood Pressure: (136-148)/(68-77) 136/77 SpO2: [94 %-96 %] 95 % Pulse Rate: [74-78] 78 PHYSICAL EXAM General: Alert, interactive, not acutely ill. Skin: No rashes or lesions. Eyes: Pupils equal and round. Sclera anicteric. ENT: Hearing grossly intact. Dentition intact. No oral or pharyngeal erythema or lesions noted. Lungs: Clear to auscultation. No wheezes or crackles. Reduced bibasilar air entry and reduced whispered pectoriloquy suggestive of small effusions. Heart: Cap refill time under 2 seconds and moist mucous membranes. Regular rate and rhythm. No murmurs appreciated. No lower extremity edema. Abdomen: Soft, bowel sounds present. Neurological Examination GCS 15. General: Awake and alert, no acute distress Mental Status: Alert and to person, place, not year or day of the week. She is oriented to month. Inattention on naming months backwards. Speech is less bradyphrenic today, fluent and coherent with no paraphasic errors or neologisms. No evidence of gross dysarthria. No neglect. Difficulty with calculation. Abstraction is improved. Difficulty with recent and remote memory. Able to follow simple but not complex commands. Some limb kinetic apraxia. Unable to initiate Luria's test. Examination 04/07 Cranial Nerves: CN II: Visual peters full to confrontation. Pupils equal, round, and briskly reactive to light. CN III, IV, : No eye deviation at primary gaze. Full range of extraocular movements. Smooth pursuits. Normal saccades. CN V: Facial sensation to light touch intact and symmetric in V1-V3 distributions bilaterally. CN VII: Face symmetric with normal eye closure and smile. CN VIII: Not tested CN IX, X: Palate elevates symmetrically. Some dysphonia. Uvula midline CN XI: Shoulder shrug intact and symmetric. CN XII: Tongue midline without atrophy or fasciculations. Macroglossia with a fissuring and redness. Motor: Normal muscle tone and bulk. Intermittent resting tremor of the right thumb that comes out with postural re-emergence. No pronator drift. Left-sided Acuña. Right ankle clonus. Mild weakness of triceps and hamstrings bilaterally right worse than left. Other tested muscle groups within normal range for age. Brisk upper and lower limb reflexes, right worse than left. Right-sided crossed adductor. Right-sided Babinski. Joint position sense reduced to the knees in the lower limbs and equivocally to the interphalangealjoints in the upper limbs. Finger tracking test abnormal. Difficulty bringing fingers together in front of her with eyes closed. Patient having difficulty engaging with tuning fork exam of vibration.Sensation intact to light touch and pinprick. Coordination: No ataxia/dysmetria on [id number]-xp-vday testing but instead difficulty performing-due to proprioceptive deficit. Summary of neurologic exam: Cognitive impairment manifesting with bradyphrenia, deficits in attention, calculation, abstraction, recent and remote memory and some disorientation. Subtle quadriparesisin upper motor neuron pattern with a length-dependent proprioceptive loss in the upper and lower limbs. DIAGNOSTICS I have personally reviewed the laboratory data and imaging since admission, and in/outs for past 72hours. Positives: IgM kappa small monoclonal gammopathy Frederic free light chain serum 2.9 Vitamin B6 <2, pyridoxine low, nicotinic acid low B12 1300, zinc low 50 EBV low volume quantification under 35 plasma Negatives: HCV, HIV he is, Histoplasma, syphilis Urine M protein Folate LDH PTHrP Pending tests include: - EMG - bone marrow biopsy - fat aspirate - Labs as detailed below ASSESSMENT / PLAN Ms. oClon is hospitalized on [place] [id number] ([facility]) for evaluation and management of progressive weakness and confusion. Medical comorbidities include history of mild cognitive impairment, breast cancer in remission, non-melanoma skin cancer, anxiety, depression, osteopenia, GERD, recent COVID infection in February 2023, IgM kappa gammopathy, B12 deficiency on supplementation. With regard to her hypercalcemia, etiology could be secondary to calcium and vitamin-D supplementation combined with low p.o. intake and dehydration. It has improved with IV fluids. PTH was low and vitamin D levels were within normal range. PTHrP was negative. However, given this patient's history of breast cancer, and IgM kappa gammopathy there is some suspicion for an underlying malignant process driving this. Indeed, the patient has recent development of splenomegaly and new pancytopenia. To this end, hematology was consulted and a bone marrow biopsy and PET scan or undertaken. PET-CT has identified FDG avid splenomegaly and bone marrow suggestive of a lymphoproliferative process. Leukemia/lymphoma serum flow is pending as are the results of the bone marrow biopsy. Hematology has recommended we pursuea 1,25 hydroxy vitamin-D level. Incidentally, splenomegaly was noted to be obstructing the left UPJ. Urology recommend monitoring renal function and CT urogram if function deteriorates; we will pursue renal ultrasound on Sunday. Due to recent poor oral intake and concern for malnutrition, and NG tube was placed on 04/06 and tube feeding advanced. Patient has had features of refeeding syndrome (hypokalemia, hypomagnesemia, hypophosphatemia) which we are repleting and monitoring closely. Vitamin B6 and zinc were also low andwe will supplement these. Thiamine is being repleted at Wernicke's Syndrome treatment doses given her encephalopathy. From a neurological point of view, this lady is unfortunately exhibiting a subacute and progressiveencephalopathy over the last 1-2 months exacerbated by COVID infection in February. This is on a background of mild cognitive impairment, parkinsonism, and gait instability for which he was evaluated in March 2022 by our Neurology colleagues. On examination today, she has bradyphrenia and cognitive impairment manifesting with deficits in attention, calculation, abstraction, recent and remote memory and some disorientation. She also has subtle quadriparesis in upper motor neuron pattern with alength- dependent proprioceptive loss in the upper and lower limbs raising concern for a myeloneuropathy. Although this is my first time meeting her the reports improvement in alertness and engagement. MRI of the head is unrevealing but MRI cervical spine does show some cervical spondylosis without overt cord compression or cord signal change from C4-C6. Compression here could certainly result in the pyramidal pattern seen on lower limb examination although upper limb reflexes are uncharacteristic brisk as well. The macroglossia, encephalopathy, laboratory abnormalities and proprioceptive deficits raised concern for a metabolic etiology. She is receiving Wernicke's dose IV thiamine. Lymphoproliferative conditions including Deja Fan syndrome and amyloidosis could be playing a role and remain on the differential given the other described findings. A broad workup will be undertaken, including a PATIENT REGISTRATION REP demyelination panel, EMG, and fat aspirate. Consideration could be given to need for LP. Neurology is following for further assistance. Barriers to discharge include nutrition, oral intake, debility which seem to be mostly acute over the last 1-2 months, however there is documentation of parkinsonian symptoms over the past few years which have come and gone per neurology notes. We will continue to involve our care management, nutrition, physical therapy and occupational therapy colleagues with anticipated SNF discharge once further workup is complete. Will initiate NG tube feeds given Today's plan: Continue NG feeding, advancement of oral diet, vitamin and electrolyte replaced Liberalize refeeding electrolytes checks to once daily Await results of pending workup and ongoing Hematology and Neurology input Continue working with PT and OT # Generalized weakness # Subacute encephalopathy # Mild quadriparesis # Concern for myeloneuropathy # Length-dependent proprioceptive deficits # History of gait instability # History of mild cognitive impairment # History of parkinsonism Neurology following, appreciate recommendations EMG/NCS Fat aspirate biopsy for evaluation of amyloidosis Continue Wernicke's dose IV thiamine Vitamin B6 supplementation Follow broad laboratory base workup Consideration could be given to LP if above workup unrevealing PT/OT # Pancytopenia # FDG avid splenomegaly # Diffuse FDG avid bone marrow # History of IgM kappa gammopathy # Frederic free light chains 2.9 # Suspicion for lymphoproliferative disorder # Low grade EBV quantification PTHrP negative. EBV <35 Heme consulted, appreciate recommendations Leukemia/lymphoma flow cytometry Follow results of bone marrow biopsy Labs as per Heme: 1,25 vitamin D, VEGF # Hypercalcemia # Refeeding syndrome # Hypokalemia, hypomagnesemia, hypophosphatemia # Severe malnutrition # Macroglossia Refeeding labs once daily now Nutrition following, appreciate recs Continue NG tube feeds while evaluation pending Hold home calcium, vitamin D supplementation, and hydrochlorothiazide Nutrition labs pending including B vitamins, copper, zinc Continue aggressive thiamine repletion per neurology recommendations Pyridoxine supplementation # Mild rise in creatinine not meeting criteria for DIDIER # 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 She is monitored with mammogram, most recently 07/14/2022 without evidence of recurrence Baseline Mobility: BMAT Level 3 (Able to stand but cannot take steps without help) Diet: Adult Diet Dysphagia; Thin (TN0); Soft and Bite-Sized (SB6) Tubes/lines: PIV and Lyon VTE prophylaxis: heparin Code status: DNR Surrogate Decision Maker: Spouse, Philippe Disposition: Uncertain Severe Malnutrition The patient meets the ASPEN Criteria of malnutrition based on: Energy Intake: Less than or equal to 75% of estimated energy requirement for greater than or equal to 1 month Interpretation of Weight Loss: greater than 5% 1 month Body Fat: Mild Loss Muscle Mass: Mild Loss This is in the context of Chronic Illness. Malnutrition Present Upon Admission: Yes Agree with Registered Dietitian's assessment and treatment plan: Interventions: Medical food supplement, Increase nutrient intake with small, frequent meals and/or snacks, Assess oral intake with calorie count Plan discussed with [facility] Medicine 2 ([facility]) Support Associate, Dr. Lewis, who was present during jorge portions of the evaluation today. Please page the [facility] Medicine 2 ([facility]) service pager at [phone] Syed Martinez, MBBS PGY1 Pager: [phone] Portions of the record may have been created with voice recognition software. NT REPRESENTATIVE Associated attestation - Joe Lewis M.D. - 04/08/2023 11:52 AM CLIENT REPRESENTATIVE MEDICINE TEAM 2 - ATTENDING PHYSICIAN NOTE I have independently seen and examined Mrs. Darcy Colon. I have discussed the history and examination, independently reviewed the salient features, and agree with the findings and plan as documented in the resident's note. Their note should be considered an integral part of my note, with the following comments: PLAN No acute events overnight. Electrolytes are improved after repletion. Continues on micronutrient supplementation as well. Continue tube feeds, advancement of oral diet as tolerated. Continue PT and OT involvement. Will continue to await results of pending workup and ongoing Hematology Neurology input, including bone marrow biopsy. Joe Lewis M.D. Attending Physician Medicine 2 Service * Joe Lewis M.D. - 04/07/2023 1:53 PM CST MEDICINE TEAM 2 - ATTENDING PHYSICIAN NOTE I have independently seen and examined Mrs. Darcy Colon. I have discussed the history and examination, independently reviewed the salient features, and agree with the findings and plan as documented in the resident's note. Their note should be considered an integral part of my note, with the following comments: PLAN Patient is an 82-year-old lady with a history of mild cognitive impairment, breast cancer in remission, non-melanoma skin cancer, anxiety, depression, osteopenia, and GERD, recent COVID infection in February 2023, IgM kappa gammopathy, B12 deficiency on supplementation. She presents with a 1-2 month history of severe malnutrition and refeeding syndrome (hypomagnesemia, hypokalemia, and hypophosphatemia), progressive encephalopathy, incoordination, macroglossia, hypercalcemia, splenomegaly, pancytopenia raising suspicion for a metabolic and hematological process. Active medical issues today include continuing to replete electrolytes in the setting of refeeding syndrome; she remains hypokalemic this morning, and we will continue to replete aggressively. Overall helper driver behind her symptoms remains unclear. She underwent a PET-CT that showed some splenomegaly and diffuse bone marrow activity; she has also undergone bone marrow biopsy, and we await the results. We will discuss whether she may also benefit from MRI brain for evaluation as well. Appreciate input from Neurology and Hematology colleagues. Consult Urology given left UPJ obstruction seen on PET-CT. Continue tube feeds. Vitamin supplementation as per Dr. Cruz's note. Continue PT/OT. Joe Lewis M.D. Attending Physician Medicine 2 Service NT REPRESENTATIVE * Santiago Mejía M.D., M.S. - 04/07/2023 10:17 AM CST BRIEF HEMATOLOGY CONSULT SERVICE PROGRESS NOTE SUBJECTIVE Ms. Darcy Colon is a 82 y.o. female with a history of mild cognitive impairment followed by Neurology, breast cancer 2017s/p lumpectomy and radiation, nonmelanoma skin cancer, osteopenia, B12 deficiency on supplementation, and GERD who is admitted to the medicine service for hypercalcemia in the setting of failure to thrive. We are consulted given new pancytopenia and splenomegaly with hypercalcemia. At the bedside, she is sitting in no acute distress but appears somewhat disoriented. Is able to answer simple questions. Her is at the bedside who we spoke with as detailed below. OBJECTIVE VITAL SIGNS BP 148/68 (BP Location: Left arm;Upper, Patient Position: Semi-recumbent) Pulse 75 Temp 36.9 ??C (Oral) Resp 14 Ht 149.9 cm Wt 55 kg SpO2 94% BMI 24.49 kg/m?? PHYSICAL EXAM General: Sitting up, no acute distress. Lungs: On room air Mental: Oriented to place. Knows her date. Able to respond to simple questions DIAGNOSTICS I have reviewed relevant interval diagnostics. ASSESSMENT / PLAN Ms. Darcy Colon is a 82 y.o. female with a history of mild cognitive impairment followed by Neurology, breast cancer 2017s/p lumpectomy and radiation, nonmelanoma skin cancer, osteopenia, B12 deficiency on supplementation, and GERD who is admitted to the medicine service for hypercalcemia in the setting of failure to thrive. We are consulted given new pancytopenia and splenomegaly with hypercalcemia. Her picture remains suspicious for malignant involvement of the bone marrow. In this setting, a PET-CT and bone marrow biopsy were recommended which were obtained by the team yesterday. The PET-CT showed moderately FDG avid splenomegaly and diffuse bone marrow activity suspicious for a lymphoprolife rative process. The bone marrow biopsy is pending. We discussed these results with the patient and her at the bedside today, noting that at this time we are waiting for the bone marrow biopsyprior to making any diagnoses / recommendations. We recommend obtaining a fat pad aspirate as recommended by Neurology to evaluate for amyloidosis. # Hypercalcemia # Failure to thrive # Pancytopenia # Hx of breast cancer s/p lumpectomy and radiation # FDG avidity in spleen and bone marrow on PET 04/06/2023 Recommendations: We will await results of bone marrow biopsy Please obtain fat pad aspirate as recommended by Neurology to evaluate for amyloidosis We will reach out to the pathologist on Sunday to obtain congo-red stain This case was discussed with software developer consultant Dr. Lucero who agree with the above assessment plan. Santiago Mejía MD MS PGY-2 Internal Medicine NT REPRESENTATIVE Associated attestation - Ghulam Lucero M.B.B.S., M.D. - 04/07/2023 11:02 AM CLIENT REPRESENTATIVE The patient remains confused/disoriented - although improved since yesterday as per her . Hypercalcemia has resolved. PET scan results were reviewed. We await results of bone marrow biopsy. Fat pad aspirate will be ordered. Fully discussed with the patient and her * Syed Cruz M.B.B.S. - 04/07/2023 7:01 AM CST Images from the original note were not included. T Medicine 2 ([facility]) PROGRESS NOTE SUBJECTIVE Patient fell feels well in herself this morning. reports that she appears brighter, more engaged and alert, and ascribes this to improved feeding. We explained the differential diagnostic considerations at the moment in the workup thus far, as well as next steps. Overview: Consults Seen by neurology who are working her for an encephalopathy and myeloneuropathy likely of metabolicorigin Seen by Hematology who recommended PET-CT and bone marrow biopsy Seen by dietitian and an NG-tube was placed Seen by case management for SNF planning Imaging PET-CT: FDG avid splenomegaly and diffuse bone marrow activity suspicious for lymphoproliferative process. No FDG avid lymphadenopathy or other evidence of malignancy. Left ureteropelvic junction obstruction due to splenomegalyBone marrow biopsy 04/06 MRI H, C, T spine: no acute pathology Vitals within normal range. +415mL. Last BM Date: 04/05/23 Stable pancytopenia: Hemoglobin 9.2, platelets 56, leukocytes 3 Refeeding hypokalemia Potassium 3.1. Magnesium and phosphorus within range. Creatinine 1.21 (1.5), BUN 14 Micro so far negative except for EBV DNA under 35 low-level detection I have reviewed the current medication list. On thiamine Wernicke's protocol OBJECTIVE VITAL SIGNS Temperature: [36.3 ??C-37.6 ??C] 37.6 ??C Resp Rate: [14-17] 16 Blood Pressure: (147-154)/(67-70) 147/70 SpO2: [91 %-97 %] 91 % Weight: [55 kg] 55 kg BMI (Calculated): [24.5 kg/m??] 24.5 kg/m?? Pulse Rate: [67-75] 75 PHYSICAL EXAM General: Alert, interactive, not acutely ill. Skin: No rashes or lesions. Eyes: Pupils equal and round. Sclera anicteric. ENT: Hearing grossly intact. Dentition intact. No oral or pharyngeal erythema or lesions noted. Lungs: Clear to auscultation. No wheezes or crackles. Heart: Regular rate and rhythm. No murmurs appreciated. No lower extremity edema. Abdomen: Soft, bowel sounds present. Neurological Examination GCS 15. General: Awake and alert, no acute distress Mental Status: Alert unoriented to person, not place, not year but oriented to day of the week and month. Inattention and naming months backwards. Speech is bradyphrenic but fluent and coherent with no paraphasic errors or neologisms. No evidence of gross dysarthria. No neglect. Difficulty with calculation and abstraction. Difficulty with recent and remote memory. Able to follow simple but not complex commands Cranial Nerves: CN II: Visual peters full to confrontation. Pupils equal, round, and briskly reactive to light. CN III, IV, : No eye deviation at primary gaze. Full range of extraocular movements. Smooth pursuits. Normal saccades. CN V: Facial sensation to light touch intact and symmetric in V1-V3 distributions bilaterally. CN VII: Face symmetric with normal eye closure and smile. CN VIII: Not tested CN IX, X: Palate elevates symmetrically. Some dysphonia. Uvula midline CN XI: Shoulder shrug intact and symmetric. CN XII: Tongue midline without atrophy or fasciculations. Macroglossia with a fissuring and redness. Motor: Normal muscle tone and bulk. Intermittent resting tremor of the right thumb that comes out with postural re-emergence. No pronator drift. Left-sided Acuña. Right ankle clonus. Mild weakness of triceps and hamstrings bilaterally right worse than left. Other tested muscle groups within normal range for age. Brisk upper and lower limb reflexes, right worse than left. Right-sided crossed adductor. Right-sided Babinski. Joint position sense reduced to the knees in the lower limbs and equivocally to the interphalangealjoints in the upper limbs. Finger tracking test abnormal. Difficulty bringing fingers together in front of her with eyes closed. Patient having difficulty engaging with tuning fork exam of vibration.Sensation intact to light touch and pinprick. Coordination: No ataxia/dysmetria on [id number]-lt-[id number] testing but instead difficulty performing-due to proprioceptive deficit. Summary of neurologic exam: Cognitive impairment manifesting with bradyphrenia, deficits in attention, calculation, abstraction, recent and remote memory and some disorientation. Subtle quadriparesisin upper motor neuron pattern with a length-dependent proprioceptive loss in the upper and lower limbs. DIAGNOSTICS I have personally reviewed the laboratory data and imaging since admission, and in/outs for past 72hours. Positives: IgM kappa small monoclonal gammopathy Frederic free light chain serum 2.9 Vitamin B6 <2, B12 1300, zinc low 50 EBV low volume quantification under 35 plasma Negatives: HCV HIV he is, Histoplasma, syphilis Urine M protein Folate LDH PTHrP Pending tests include: - EMG - bone marrow biopsy - fat aspirate - Labs as detailed below ASSESSMENT / PLAN Ms. Colon is hospitalized on [facility] ([facility]) for evaluation and management of progressive weakness and confusion. Medical comorbidities include history of mild cognitive impairment, breast cancer in remission, non-melanoma skin cancer, anxiety, depression, osteopenia, GERD, recent COVID infection in February 2023, IgM kappa gammopathy, B12 deficiency on supplementation. With regard to her hypercalcemia, etiology could be secondary to calcium and vitamin-D supplementation combined with low p.o. intake and dehydration. It has improved with IV fluids. PTH was low and vitamin D levels were within normal range. PTHrP was negative. However, given this patient's history of breast cancer, and IgM kappa gammopathy there is some suspicion for an underlying malignant process driving this. Indeed, the patient has recent development of splenomegaly and new pancytopenia. To this end, hematology was consulted and a bone marrow biopsy and PET scan or undertaken. PET-CT has identified FDG avid splenomegaly and bone marrow suggestive of a lymphoproliferative process. Leukemia/lymphoma serum flow is pending as are the results of the bone marrow biopsy. Hematology has recommended we pursuea 1,25 hydroxy vitamin-D level. Incidentally, splenomegaly was noted to be obstructing the left UPJ. Urology recommend monitoring renal function and CT urogram if function deteriorates; we will pursue renal ultrasound on Sunday. Due to recent poor oral intake and concern for malnutrition, and NG tube was placed on 04/06 and tube feeding advanced. Patient has had features of refeeding syndrome (hypokalemia, hypomagnesemia, hypophosphatemia) which we are repleting and monitoring closely. Vitamin B6 and zinc were also low andwe will supplement these. Thiamine is being repleted at Wernicke's Syndrome treatment doses given her encephalopathy. From a neurological point of view, this lady is unfortunately exhibiting a subacute and progressiveencephalopathy over the last 1-2 months exacerbated by COVID infection in February. This is on a background of mild cognitive impairment, parkinsonism, and gait instability for which he was evaluated in March 2022 by our Neurology colleagues. On examination today, she has bradyphrenia and cognitive impairment manifesting with deficits in attention, calculation, abstraction, recent and remote memory and some disorientation. She also has subtle quadriparesis in upper motor neuron pattern with alength- dependent proprioceptive loss in the upper and lower limbs raising concern for a myeloneuropathy. Although this is my first time meeting her the reports improvement in alertness and engagement. MRI of the head is unrevealing but MRI cervical spine does show some cervical spondylosis without overt cord compression or cord signal change from C4-C6. Compression here could certainly result in the pyramidal pattern seen on lower limb examination although upper limb reflexes are brisk as well. The macroglossia, encephalopathy, laboratory abnormalities and proprioceptive deficits raised concern for a metabolic etiology. She is receiving Wernicke's dose IV thiamine. Lymphoproliferative conditions including Deja Fan syndrome and amyloidosis could be playing a role and remain on the differential given the other described findings. A broad workup will be undertaken, including a PATIENT REGISTRATION REP demyelination panel, EMG, and fat aspirate. Consideration could be given to need for LP. Neurology is following for further assistance. Barriers to discharge include nutrition, oral intake, debility which seem to be mostly acute over the last 1-2 months, however there is documentation of parkinsonian symptoms over the past few years which have come and gone per neurology notes. We will continue to involve our care management, nutrition, physical therapy and occupational therapy colleagues with anticipated SNF discharge once further workup is complete. Will initiate NG tube feeds given # Generalized weakness # Subacute encephalopathy # Mild quadriparesis # Concern for myeloneuropathy # Length-dependent proprioceptive deficits # History of gait instability # History of mild cognitive impairment # History of parkinsonism Neurology following, appreciate recommendations EMG/NCS Fat aspirate biopsy for evaluation of amyloidosis Continue Wernicke's dose IV thiamine Vitamin B6 supplementation Follow broad laboratory base workup Consideration could be given to LP if above workup unrevealing PT/OT # Pancytopenia # FDG avid splenomegaly # Diffuse FDG avid bone marrow # History of IgM kappa gammopathy # Frederic free light chains 2.9 # Suspicion for lymphoproliferative disorder # Low grade EBV quantification PTHrP negative. 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 She is monitored with mammogram, most recently 07/14/2022 without evidence of recurrence Baseline Mobility: BMAT Level 3 (Able to stand but cannot take steps without help) Diet: Adult Diet Regular Tubes/lines: PIV and Lyon VTE prophylaxis: heparin Code status: DNR Surrogate Decision Maker: Spouse, Philippe Disposition: Uncertain Severe Malnutrition The patient meets the ASPEN Criteria of malnutrition based on: Energy Intake: Less than or equal to 75% of estimated energy requirement for greater than or equal to 1 month Interpretation of Weight Loss: greater than 5% 1 month Body Fat: Mild Loss Muscle Mass: Mild Loss This is in the context of Chronic Illness. Malnutrition Present Upon Admission: Yes Agree with Registered Dietitian's assessment and treatment plan: Interventions: Medical food supplement, Increase nutrient intake with small, frequent meals and/or snacks, Assess oral intake with calorie count Plan discussed with [facility] Medicine 2 ([facility]) Support Associate, Dr. Lewis, who was present during jorge portions of the evaluation today. Please page the T Medicine 2 ([facility]) service pager at [phone] Syed Martinez, DENIZ PGY1 Pager: [phone] Portions of the record may have been created with voice recognition software. NT REPRESENTATIVE * Chi Prakash P.T., Gail.P.TAdalid - 04/06/2023 3:49 PM CST 04/06/23 1549 Reason Therapy Missed Reason Therapy Missed Receiving other care (Continued neuro workup, off the floor at MRI in the evening. PT will continue to monitor and treatwhen available/appropriate.) NT REPRESENTATIVE * Cristiana Leone M.A., Yajaira.Travis, O.T.Truman - 04/06/2023 2:57 PM CST 04/06/23 1457 Reason Therapy Missed Reason Therapy Missed Medical hold NPO today for testing. OT dysphagia will follow up for bedside evaluation as appropriate 04/07. NT REPRESENTATIVE * Dheeraj Gee M.D. - 04/06/2023 2:46 PM CST #1 Generalized weakness #2 Quadriparesis, mild #3 Hypercalcemia #4 Thrombocytopenia #5 Neuropathy #6 Concern for myeloneuropathy #7 Unintentional weight loss #8 Macroglossia #9 Severe malnutrition #10 Hypertension #11 Major neurocognitive disorder #[address] body today is concerning for an underlying lymphoproliferative disease process. We appreciate the involvement of our hematology colleagues and plans for bone marrow biopsy today. Would also recommend adding on fat aspirate for amyloidosis. Certainly a hematologic disease process could account for the patient's macroglossia and neurologicsymptomatology. We will continue to follow. NT REPRESENTATIVE * Jess Alcantara, PEYMAN, ZOYA, M.P.H. - 04/06/2023 1:42 PM CST DESCRIPTION Calorie Count and Nutrition Chart Review ASSESSMENT Per primary team notes patient will get NJ tube placed today. Recommendations provided below. Patient's intake continued to be poor based on calorie count review. Calorie Count Summary: Results for the past 120 hrs: 24 Hr Total Calorie Intake 04/05/23 235 145 04/04/23 2359 73 04/03/232358 0 Results for the past 120 hrs: 24 Hr Total Protein Intake 04/05/239 4 04/04/239 2 04/03/232358 0 Past 3 day average was 72 calories/day (5% of estimated calorie needs) and 2 grams protein/day (3% of estimated protein needs) Weight since admission: Height: 149.9 cm Admission Weight: 54 kg (04/02/2023) Current Weight: 54 kg BMI (Calculated): 24 kg/m?? Weight change since admission: 0 kg Net IO Since Admission: 2,362 mL [04/06/23 1343] ASPEN Criteria Malnutrition Status: Severe Malnutrition PLAN Continue to monitor / replace potassium, magnesium, and phosphorus due to refeeding risk If NG or NJ tube is placed for enteral nutrition start slow advancement of continuous feeds due to refeeding risk: Formula: Nutren 1.5 Regimen: Standard initiation and advancement to goal of 40 mL/hr Flushes: Minimum 30 mL, 4 times daily for tube patency. Additional flushes for hydration per primary service. To meet 1 mL/kcal fluid needs, would require 5 x 120 mL flushes Vitamin / mineral supplement: Continue Therapeutic-M, as regimen at goal meets fewer than 100% of RDIs Regimen at goal provides 960 mL formula, 1440 kcal, 65 g protein, 850 mL free water (730 mL from formula, 120 mL from patency flushes) For questions about patient's nutritional care please contact pager [phone] on weekdays or [phone] on weekends/holidays. NT REPRESENTATIVE * Kamran Parrish R.N. - 04/06/2023 9:57 AM CST Images from the original note were not included. SUBJECTIVE Case management following to assist with dismissal planning and to provide resources as needed. Tentative disposition: [facility] Facility OBJECTIVE Darcy Colon is hospitalized in [id number] for Hypercalcemia [E83.52] Hypokalemia [E87.6] Weakness General [R53.1] A list of [facility] facility options (that they geographically reside or requested) has been provided to and reviewed with patient and Philippe . Disclaimers: Financial disclosure provided informing patient of our ownership and financial relationship of the [facility], home health, and hospice agencies. Reviewed Medicare coverage and provided a list of options. Destination - Admitted Since 04/02/2023 Service Provider Request Status Selected Services Address Phone Fax Patient Preferred [facility] Pending - Request Sent N/A [address] [facility] [address] [phone] [facility] Pending - Request Sent N/A [address] [facility] [address] [phone] [facility] Pending - Request Sent N/A [id number] [facility] [phone] -- [facility] Pending - Request Sent N/A [address] [place] [address] -- [facility] Pending - Request Sent N/A [address] [facility] [address] [phone] -- [facility] [place] Pending - Request Sent N/A [address] [phone] -- [facility] Pending - Request Sent N/A [address] [facility] [phone] -- ASSESSMENT / PLAN ASSESSMENT Case management spoke to Philippe, the patient's with the patient present to continue dismissal planning. Nurse adult protective caseworker reviewed the process of SNF referrals and the benefit of broad referral. The board referral process was explained as follows: we will assess the needed level of care with referrals to be sent in a 30 mile radius around the patient???s preferred location and will be expanded up to a greater radius as needed. All question were answered. Both the patient and her family verbalize understanding, agreed with the discharge plan and for referrals to be sent. PLAN Case management will continue to follow to assist with dismissal planning and to provide resources as needed. Case management will assist with transportation needs upon dismissal as needed Case management will continue to update patient and family regarding SNF referrals Kamran Parrish R.N. 04/06/23 NT REPRESENTATIVE * Alfreda Greenfield M.D. - 04/06/2023 8:04 AM CST This is a supervisory note for the Medicine 2 team. I saw and evaluated the patient. I reviewed with the Medicine 2 team the medical history and the findings on physical examination. I discussed withthe resident and Medicine 2 team the patient???s diagnosis and concur with the treatment plan as documented in the resident note. Generalized weakness Encephalopathy Hypercalcemia, improving Thrombocytopenia Metabolic alkalosis Nausea/vomiting Poor appetite Unintentional weight loss Hypokalemia Elevated creatinine, DIDIER versus CKD Elevated TSH, mild, 4.7 Troponinemia Osteopenia on Ca/Vit D Hypertension on hydrochlorothiazide History of [id number], ER positive [place] positive, HER-2 negative left-sided breast invasive ductal carcinoma with Oncotype DX recurrence score of 6 status post lumpectomy/sentinel lymph node dissection 2016 followed by postop XRT on Arimidex (original plan 5-10 years) Mild cognitive impairment vs mild dementia as per 03/2022 neurology evaluation Parkinsonism Gait instability Mild essential tremor Anxiety and depression Ms. Colon is a very pleasant 82-year-old female who presented initially with hypercalcemia and encephalopathy. Hypercalcemia has been improving, her poor appetite continues. With her pancytopenia and hypercalcemia appreciate hematology recommendations agree with bone marrow biopsy which was performed today. We can trial NG feeding to see if some of her toxic metabolic encephalopathy is related to volume depletion and poor nutrition. Awaiting results of PET-CT scan. Rest of details per medicine 2 team note. NT REPRESENTATIVE * Enoch Garcia - 04/06/2023 6:13 AM CST Pharmacist Progress Note Reason for admission: progressive weakness and confusion PMH: history of mild cognitive impairment, breast cancer (treated with lumpectomy and sentinel nodedissection, hypofractionated whole breast radiation, anastrozole, tamoxifen), non-melanoma skin cancer, anxiety, depression, osteopenia, and GERD OBJECTIVE Home medications per RN Held: carbidopa-levodopa and donepezil (never started), HCTZ, hydroquinone 4% cream, calcium-vitamin D, vitamin D3, vitamin B12 Changed: acetaminophen (changed frequency) New: senna-S, MiraLAX, prochlorperazine, MV, thiamine S+T: PPI Patient own medications: None VTE Prophylaxis: Heparin LBM: 04/05 Renal function: Estimated Creatinine Clearance: 31.1 mL/min (A) (by C-G formula based on SCr of 1.21 mg/dL (H)). ASSESSMENT / PLAN Weakness, altered mental status - Neuro and Hem Consult Unclear etiology: Infectious work-up negative. Concern for possible progression of cognitive impairment/dementia. MRI brain unremarkable. Started MV and IV thiamine Continue with neuro and hem workup including PET scan, MRI thoracic spine, EMG, bone marrow biopsy Hypercalcemia Hypokalemia Hypophosphatemia. Malnutrition/possible refeeding syndrome. - Nutrition consult. Continue to monitor labs and replete as necessary. If NG tube feeds to be initiated. If all medications are going to be given through NG tube all routes need to be changed and change formulations for bupropion 150 XL to bupropion IR 75 mg BID and pantop[address]ole [address] 40 mg tabs to lansoprazole 3mg/mL solutions as 10 mL (30 g) daily through NG tube Continue to monitor refeeding labs of potassium, magnesium, and phosphate. Holding home calcium-vitamin D, vitamin D supplementation, vitamin B12 and HCTZ. Vitamin labs showed elevated B12 assay (1300). Folate, D2, D3, and D total all within normal limits. Zinc came back slightly low (58), continue to monitor, but holding off on supplementation at this time. Nausea Repeat EKG showed normal QTc (423), started on as needed prochlorperazine Renal - per chart review Scr in November 2022 was 0.9 patient currently 1.21 Continue to monitor medications and dose adjust as necessary due to kidney function Medication Reconciliation Continue home brimonidine ophthalmic solution (glaucoma), dorzolamide-timolol ophthalmic solution (glaucoma), bupropion (anxiety, depression), escitalopram (anxiety, depression), PPI (GERD), ketorolac eye drops 0.5% (glaucoma) Enoch Garcia NT REPRESENTATIVE * Ward Venegas M.D. - 04/06/2023 6:05 AM CST [facility] Medicine 2 ([facility]) PROGRESS NOTE SUBJECTIVE Ms. Colon was evaluated by Hematology and Neurology yesterday given new development of pancytopenia and her recent history of splenomegaly in the context of new mental status changes. MRI of brain and C-spine yesterday unremarkable, but she will go for MRI of the thoracic spine today as well as who le-body PET. Bone marrow biopsy scheduled for today as well. Patient seen by the bedside this morning. Doing well, tongue is hurting and very dry. We discussed the plan for today, as below. I have reviewed the current medication list. OBJECTIVE VITAL SIGNS Temperature: [36.9 ??C-37.6 ??C] 37.1 ??C Resp Rate: [15-18] 18 Blood Pressure: (129-153)/(60-80) 152/64 SpO2: [93 %-99 %] 96 % Flow Rate (L/min): [0 L/min] 0 L/min Pulse Rate: [67-81] 70 PHYSICAL EXAM General: Alert, interactive, not acutely ill. Skin: No rashes or lesions. Eyes: Pupils equal and round. Sclera anicteric. ENT: Hearing grossly intact. Dentition intact. No oral or pharyngeal erythema or lesions noted. Lungs: Clear to auscultation. No wheezes or crackles. Heart: Regular rate and rhythm. No murmurs appreciated. No lower extremity edema. Abdomen: Soft, bowel sounds present. Neuro: Cranial nerves II-XII grossly intact. Significant dysmetria with left and right upper extremities on [id number]. Slow movements of upper extremities Mental: Blunted affect. Alert and oriented x3. DIAGNOSTICS I have personally reviewed the laboratory data and imaging since admission, and in/outs for past 72hours. Labs pending as detailed below ASSESSMENT / PLAN Ms. Colon is hospitalized on [place] [id number] ([facility]) for evaluation and management of progressive weakness and confusion. Medical comorbidities include history of mild cognitive impairment, breast cancer in remission, non-melanoma skin cancer, anxiety, depression, osteopenia, and GERD. With regard to her hypercalcemia, etiology is possibly secondary to calcium and vitamin-D supplementation combined with low p.o. intake and dehydration. This improved with IV fluids. PTH was low and vitamin D levels SPEP/UPEP were unrevealing, but PTHrP is pending. Other possible etiology could be h ypercalcemia related to bony metastasis in the background of history of breast cancer, although with no concern for bone pain at this time my suspicion for this is low. Interestingly, the patient has also had recent development of splenomegaly, and new pancytopenia over the past few days. Thrombocytopenia was previously worked up outpatient including negative viral and fungal serology. There is suspicion for hematologic malignancy at this point, we have involved our Hematology colleagues. A leukemia/lymphoma could also explain the patient's hypercalcemia, although this is unlikely as vitamin-D levels were low. PET scan and bone marrow biopsy are pending, alongwith other testing as detailed below. The patient has not noted Alzheimer/parkinsonian symptoms in the past, which seem to wax and wane. However, the patient and her family have noticed an acute decline over the last 1-2 months, especially after the patient got a COVID infection in late January of 2023. On physical exam, she is noted to have profound proprioceptive loss in distal hands and feet along with macroglossia, concerning for nutrition deficiency. We are also working up other demyelinating processes, as the patient has upper motor neuron signs in her upper extremities. EMG and MRI of the thoracic spine are pending. Neurology is following for further assistance. Barriers to discharge include nutrition, oral intake, debility which seem to be mostly acute over the last 1-2 months, however there is documentation of parkinsonian symptoms over the past few years which have come and gone per neurology notes. We will continue to involve our care management, nutrition, physical therapy and occupational therapy colleagues with anticipated SNF discharge once further workup is complete. Will initiate NJ tube feeds given Today's Plan - continue mIVF, follow calcium - continue to follow neuro and hematology recs - NG tube feeds after testing today per nutrition recs, monitor for refeeding after initiation - follow below testing Pending tests include: - PET scan - MRI thoracic spine - EMG - nutrition labs - PTHrP - bone marrow biopsy - immunoglobulin free light chains - syphilis, EBV - leukemia/lymphoma flow cytometry - fat aspirate - PATIENT REGISTRATION REP demyelinating disease panel # Generalized weakness # Altered mental status # Focal neurologic deficits # Gait instability # History of mild cognitive impairment - neurology following, appreciate recommendations - PT/OT - MRI thoracic spine pending # Pancytopenia; # Splenomegaly - concern for lymphoma or hematologic malignancy, heme consulted, appreciate recommendations - leukemia/lymphoma flow cytometry - EBV - PTHrP - bone marrow biopsy - immunoglobulin free light chains - PET scan # Hypercalcemia; # Hypokalemia # Severe malnutrition; # Concern for refeeding # Macroglossia - nutrition following, appreciate recs - initiate NG tube feeds while evaluation pending - hold home calcium, vitamin D supplementation, and hydrochlorothiazide - nutrition labs pending including B vitamins, copper, zinc - continue aggressive thiamine repletion per neurology recommendations - follow PTHrP # Mood: Continue home bupropion and escitalopram # GERD: continue PPI # Glaucoma: continue home timolol, brimonidine eye drops, ketorolac eye drops # History of breast cancer - Family reports patient is not currently on hormone therapy due to side effects. She is monitored with mammogram, most recently 07/14/2022 without evidence of recurrence Baseline Mobility: BMAT Level 3 (Able to stand but cannot take steps without help) Diet: No diet orders on file Tubes/lines: PIV and [place] VTE prophylaxis: heparin Code status: DNR Surrogate Decision Maker: Spouse, Philippe Disposition: Uncertain Severe Malnutrition The patient meets the ASPEN Criteria of malnutrition based on: Energy Intake: Less than or equal to 75% of estimated energy requirement for greater than or equal to 1 month Interpretation of Weight Loss: greater than 5% 1 month Body Fat: Mild Loss Muscle Mass: Mild Loss This is in the context of Chronic Illness. Malnutrition Present Upon Admission: Yes Agree with Registered Dietitian's assessment and treatment plan: Interventions: Medical food supplement, Increase nutrient intake with small, frequent meals and/or snacks, Assess oral intake with calorie count Plan discussed with [facility] Medicine 2 ([facility]) Support Associate, Dr. Greenfield, who was present during jorge portions of the evaluation today. Please page the [facility] Medicine 2 ([facility]) service pager at [phone] with anyquestions. Ward Venegas MD PGY-1 Internal Medicine Pager [phone] NT REPRESENTATIVE * Irina Mcfadden O.T., SHEILAES - 04/05/2023 3:51 PM CST 04/05/23 1550 Reason Therapy Missed Reason Therapy Missed Receiving other care (Patient was working with other services. Will try again another time as able.) Irina Mcfadden O.T., ADI NT REPRESENTATIVE * Chi Prakash P.T., D.P.T. - 04/05/2023 3:16 PM CST Physical Therapy Inpatient Treatment SUBJECTIVE Patient's Name: Darcy Colon Referring/Attending Provider: Darrell Zabala M.D. Reason for Referral: Physical Therapy Evaluate and Treat History of Present Illness: Darcy Colon is a 82 y.o. female who was admitted to [facility] in [place] on 04/02/2023 for Hypercalcemia [E83.52] Hypokalemia [E87.6] Weakness General [R53.1] Precautions Other Precautions: Fall, cog Pain Assessment: Pain not reported during session. Patient/Caregiver Goals: No goals stated Subjective Comments: Patient Nursing Family agreed to session. OBJECTIVE Vital Signs Vitals monitored throughout session; within normal ranges. Outcome Measures: AM-PAC Inpatient Short Form: AM-PAC Basic Mobility (V.2) How much help from another person do you currently need???If the patient hasn't done an activity recently, how much help from another person do you think he/she would needif he/she tried? 1. Turning from your back to your side while in a flat bed without using bedrails?: A Little 2. Moving from lying on your back to sitting on the side of a flat bed without using bedrails?: A Lot 3. Moving to and from a bed to a chair (including a wheelchair)?: A Lot 4. Standing up from a chair using your arms (e.g., wheelchair, or bedside chair)?: A Lot 5. To walk in hospital room?: Total 6. Climbing 3-5 steps with a railing?: Total [facility] Basic Mobility (V.2) Raw Score: 11 [facility] Basic Mobility (V.2) Standardized Score: 30.25 Interpretation: Based on scoring guidelines using the raw score value: Those going to home had an average score at or above 18 Those going to facility had an average score at or below 17 Clinicians answer the [facility] Inpatient Short Form based on observed patient activity and/or clinical judgement (ie. patient can be scored without physically performing each activity) Therapeutic Interventions: SUPINE TO SIT: Assistance Level: Minimal Assistance of 1 Device: head of bed elevated and bedrail Assistance/Cueing: verbal and tactile for Completion of transfer, Logrolling, Lower extremity movement/management, Lower extremity placement, Sequencing, Technique, Trunk support, Upper extremity movement/management, Upper extremity placement, and Upper extremity reaching Delivery: educated, instructed, assessed, and assisted SIT TO STAND: Assistance Level: Minimal Assistance of 1 Device: gait belt, front wheeled walker, and martir stedy Surface: Bed, Chair, and Martir Stedy Paddle Assistance/Cueing: verbal and tactile for Lower extremity placement, Manual facilitation provided for force generation, Sequencing, Technique, Upper extremity placement, Use of momentum, and Walker placement Delivery: educated, instructed, assessed, and assisted STAND TO SIT: Assistance Level: Minimal Assistance of 1 Device: gait belt, front wheeled walker, and martir stedy Surface: Chair and Martir Stedy Paddle Assistance/Cueing: verbal and tactile for Alignment with seated surface, Eccentric control, Lower extremity placement, Upper extremity placement, and Walker placement Delivery: educated, instructed, assessed, and assisted PRE-GAIT: Activity:Weight shifting and Marching Assistance Level: Minimal Assistance of 1 Device: gait belt, front wheeled walker, and martir stedy Assistance/Cueing:verbal and tactile for Lower Extremity Placement, Placement of Gait Device, Weight Shifting, and Upright Posture PIVOT TRANSFERS: Surface:Bed to Chair Assistance Level: Total Assistance of 1 Device: gait belt and martir stedy Approach: stand pivot Assistance/Cueing: verbal and tactile for Upright posture Delivery: educated, instructed, assessed, and assisted THERAPEUTIC EXERCISE: Seated Therapeutic Exercise: Side: bilateral Mode: active assistive range of motion and active range of motion Exercises: Ankle pumps and Long arc quads Repetitions: x10 Assist/cueing: Full range of motion Education : The patient/family educated on safe transfer techniques with functional mobility/activity. The patient's status was discussed and the following coordination of care occurred with the: RN OT Patient was left in bedside chair with chair alarm on at end of session with call light in reach, all needs met and questions answered. Assessment Discharge Therapy Needs - PT: Ongoing skilled physical therapy Skilled therapy can include physical therapy provided by home health, outpatient clinic, or a post-acute facility. The location of these services is determined by the patient's care team in partnership with patient/family. Level of Care Needed - PT: Assistance with transfers (Comment), Assistance with walking and moving around the home, Assistance with bed mobility, Assistance with stairs, Cognitive assistance needed, Physical assistance needed Equipment Recommended - PT: Hospital bed, Wheelchair, Mechanical lift Barriers to Discharge Home: Current functional status, Fall risk, Inaccessible home environment, Safety concerns Barriers to Discharge Comments: 2 stairs to enter residence. From a physical therapy perspective, the level of care above has been recommended for Ms. Colon after hospital discharge. This level of care is based on her functional abilities during today's session. This may change throughout the hospital course and will be updated as appropriate. Clinical Impression: Patient presents to PT today with severe deficits in mobility, transfers, ambulation, balance and safety. Patient pleasant and agreeable to PT treatment session although quite somnolent throughout. Today patient required min assist x1 for bed mobility as well as Min assist x1 for [id number] transfers from various surfaces initially utilizing Martir steady with progression to front wheel walker, transfer from edge of bed to bedside chair total assist x1 via Martir steady, able to complete 1 set ofseated therapeutic exercise. Patient will continue to benefit from skilled PT in acute care settingas well as ongoing skilled therapy as she is currently below her functional baseline. Rehab potential: Ms. Colon has Good potential to achieve established physical therapy goals withinthe time frame outlined below. Progress: Slow progress, limited activity tolerance, Slow progress, cognitive deficits Plan PT Plan Comments: Continue to progress mobility, transfers, ambulation, balance and safety. Stair training when appropriate. Functional Goals: PT Inpatient Goals PT Goal #1: Patient will be able to complete all bed mobility independently with no physical assistand no verbal cues necessary in order to facilitate return to PLOF. PT Goal #1 Status: Slowly progressing PT Goal #2: Patient will be able to complete STS transfer from edge of bed to standing modified independent utilizing front wheel walker for assist, in order to allow for functional transfers at home. PT Goal #2 Status: Slowly progressing PT Goal #3: Patient will be able to ambulate 30m modified independent utilizing front wheel walker for assist, in order to allow for functional ambulation upon DC. PT Goal #3 Status: Slowly progressing PT Goal #4: Patient will be able to safely navigate 2 stair(s) under supervision in order to allow access into/to all levels of their home prior to discharge. PT Goal #4 Status: Ongoing Treatment Plan: Plan: Continue with current plan PT Frequency: 5 times per week PT Inpatient Duration : Until goals are met or hospital discharge Requires Inpatient Follow-Up: Yes PT - Next Inpatient Appointment: 04/06/23 Patient unable to verbalize agreement to the plan of care and goals due to mental status or level of consciousness, but family members present to consult and agree with the plan as stated above. Treatment interventions may include: Treatment/Interventions: Therapeutic exercise, Therapeutic functional activity, Neuromuscular re-education, Gait training, Self-care/home management Billing: Time Spent with Patient Therapeutic Interventions Therapeutic Activity (min): 20 min Therapeutic Exercise (min): 10 min Time Tracking Total Timed Units (min): 30 min Total Treatment Time (min): 30 min Chi Prakash P.T., D.P.T. NT REPRESENTATIVE * Marialuisa Steward, AlfredaSAdalid, RDN, LD - 04/05/2023 3:10 PM CST Nutrition Care Plan Follow Up Clinical Nutrition continues to follow patient for calorie count ASSESSMENT Completed visit with patient and family today as part of face to face care. Current Nutrition (since admission): Minimal oral intakes continue. /6 - 0 kcal, 0 g protein /7 - 73 kcal, 2 g protein (25% of Magic Cup) Visited with patient and family at bedside this morning. Patient attempted to eat a popsicle but appeared to have difficulty physically bringing the popsicle to her mouth. When assisted, she stated that she liked the popsicle but after a second bite she said it was too cold. Family were aware that patient's oral intake has not improved. They were interested in providing alternative route of nutrition to improve her nutrition status. Direct Service Worker discussed enteral nutrition, temporary nasal tubes, as well as more permanent G-tubes. Discussed that patient is able to continue eating orally and that tube feeds can be weaned as oral intake improves. Family were interested in pursuing NG tube placement to improve patient's nutrition status. Direct Service Worker discussed family's wishes for a NG tube for nutrition during rounds. Team at rounds stated that they are not going to offer enteral nutrition as an intervention due to the suspected progressive nature of a neurological condition and they stated that larger goals of care conversations are going to occur soon. Direct Service Worker reached out to Med 2 software developer consultant to clarify, as per discussion yesterday 2/7enteral nutrition was being considered. Direct Service Worker has yet to receive a response. Current nutrition orders: Current Diet Adult Diet Regular starting at 04/05 1448 GI Function: Last BM Date: 04/05/23, [place] Stool Chart: Type 7: Watery, no solid pieces, Passing Flatus: No Medications: Reviewed; include magnesium sulfate, Therapeutic-M, protonix, potassium chloride, senokot-s (not given), thiamine, lactated ringer's at 125 mL/hr Pertinent labs: Reviewed Latest Reference Range & Units 04/04/23 08:28 04/05/23 06:52 Sodium, S 135 - 145 mmol/L 141 142 Potassium, S 3.6 - 5.2 mmol/L 3.3 (L) 2.9 (L) Chloride, S 98 - 107 mmol/L 101 103 Bicarbonate, S 22 - 29 mmol/L 30 (H) 28 Anion Gap 7 - 15 10 11 BUN (Blood Urea Nitrogen), S 6 - 21 mg/dL 13 14 Creatinine 0.59 - 1.04 mg/dL 1.05 (H) 1.21 (H) Estimated GFR (eGFR) >=60 mL/min/BSA 53 (L) 45 (L) Calcium, Total, S 8.8 - 10.2 mg/dL 10.7 (H) 10.6 (H) Glucose, S 70 - 140 mg/dL 75 82 (L): Data is abnormally low (H): Data is abnormally high Latest Reference Range & Units 04/04/23 08:16 Magnesium 1.7 - 2.3 mg/dL 1.5 (L) Phosphorus (Inorganic), S 2.5 - 4.5 mg/dL 3.0 (L): Data is abnormally low Weight since admission: Height: 149.9 cm Admission Weight: 54 kg (04/02/2023) Current Weight: 54 kg BMI (Calculated): 24 kg/m?? Weight change since admission: 0 kg Net IO Since Admission: 2,376.33 mL [04/05/23 1511] Estimated Needs: Total Calorie Needs: 7134-5307 calories/day Method to Estimate Energy Needs: kcal/kg (25-30 kcal/kg) Weight Used for Equation Calculations: 54 kg Total Protein Needs: 54 - 65 grams/day Method to Estimate Protein Needs (g/kg): 1 - 1.2 gm/kg Weight Used to Calculate Protein Needs (Kg): 54 kg Nutrition Diagnosis: Inadequate protein-energy intake related to decreased appetite/ NV as evidenced by Family reported intake and >5% wt loss in 1 m PLAN Nutrition Intervention: Medical food supplement, Increase nutrient intake with small, frequent meals and/or snacks, Assess oral intake with calorie count Nutrition parameter to monitor: Meals/Supplement Intake, Weight Status, Nausea/Vomiting/Diarrhea, Wound Healing ASPEN Criteria Malnutrition Status: Severe Malnutrition Recommendations: Continue to monitor / replace potassium, magnesium, and phosphorus due to refeeding risk If enteral nutrition is not initiated, consider dextrose-containing IV fluids while oral intake is minimal If enteral nutrition is contraindicated, discontinue calorie count. In the meantime, this will be continued If NG tube is placed for enteral nutrition start slow advancement of continuous feeds due to refeeding risk: Formula: Nutren 1.5 Regimen: Standard initiation and advancement to goal of 40 mL/hr Flushes: Minimum 30 mL, 4 times daily for tube patency. Additional flushes for hydration per primary service. To meet 1 mL/kcal fluid needs, would require 5 x 120 mL flushes Vitamin / mineral supplement: Continue Therapeutic-M, as regimen at goal meets fewer than 100% of RDIs Regimen at goal provides 960 mL formula, 1440 kcal, 65 g protein, 850 mL free water (730 mL from formula, 120 mL from patency flushes) Clinical Nutrition will continue to follow. For questions about patient's nutritional care please contact pager [phone] on weekdays 07:30-16:00 or [phone] on weekends/holidays. NT REPRESENTATIVE * Quinn Hernandez M.D., M.H.P.E. - 04/05/2023 11:00 AM CST This is a supervisory note for the Medicine 2 team. I saw and evaluated the patient. I reviewed with the Medicine 2 team the medical history and the findings on physical examination. I discussed withthe resident and Medicine 2 team the patient???s diagnosis and concur with the treatment plan as documented in the resident note. Generalized weakness Encephalopathy Hypercalcemia, 13.7, improving Thrombocytopenia Metabolic alkalosis Nausea/vomiting Poor appetite Unintentional weight loss Hypokalemia Elevated creatinine, DIDIER versus CKD Elevated TSH, mild, 4.7 Troponinemia Osteopenia on Ca/Vit D Hypertension on hydrochlorothiazide History of [id number], ER positive [place] positive, HER-2 negative left-sided breast invasive ductal carcinoma with Oncotype DX recurrence score of 6 status post lumpectomy/sentinel lymph node dissection 2016 followed by postop XRT on Arimidex (original plan 5-10 years) Mild cognitive impairment vs mild dementia as per 03/2022 neurology evaluation Parkinsonism Gait instability Mild essential tremor Anxiety and depression Ms. Colon is a very pleasant 82-year-old female who presented initially with hypercalcemia and encephalopathy. Her mental status has significantly improved, and she was interactive with the team on rounds today including keeping her eyes open the entire time and asking questions. We spoke with herand her family and it sounds like she currently has an aversion to food secondary to nausea as well as worsening neurological concerns related to proprioception. I watched her in room have difficultynavigating her hand to her mouth. There wasn't overt weakness. I would appreciate our neurology colleagues input and would like more advanced head imaging. I do note that there has been a concern forher cognition and there may be progression of her underlying dementia at play, but I would first like to evaluate for other etiologies of her symptoms rather than progression of her chronic comorbidities. Family is interested in [place] feeds. We'll discuss nutritional goals with them this afternoon. Rest of details per medicine 2 team note. NT REPRESENTATIVE * Enoch Garcia - 04/05/2023 7:38 AM CST Pharmacist Progress Note Reason for admission: progressive weakness and confusion PMH: history of mild cognitive impairment, breast cancer (treated with lumpectomy and sentinel nodedissection, hypofractionated whole breast radiation, anastrozole, tamoxifen), non-melanoma skin cancer, anxiety, depression, osteopenia, and GERD OBJECTIVE Home medications per RN Held: carbidopa-levodopa and donepezil (never started), HCTZ, hydroquinone 4% cream, calcium-vitamin D, Vitamin D3 Changed: acetaminophen (changed frequency) New: senna-S, Miralax, prochlorperazine, potassium chloride IV, magnesium sulfate S+T: PPI Patient own medications: None VTE Prophylaxis: Heparin LBM: 04/05 Renal function: Estimated Creatinine Clearance: 35.8 mL/min (A) (by C-G formula based on SCr of 1.05 mg/dL (H)). ASSESSMENT / PLAN Weakness, altered mental status Unclear etiology: Infectious work-up negative. Concern for possible progression of cognitive impairment/dementia. MR brain pending Hypercalcemia Hypokalemia Hypophosphatemia. Malnutrition/possible refeeding syndrome. - Nutrition consult. Continue to monitor labs and replete as necessary. Stopped LR with calcium downtrending towards normal range Continue to monitor refeeding labs of potassium, magnesium, and phosphate. Holding home calcium-vitamin D, vitamin D supplementation, and HCTZ. Vitamin labs showed elevated B12 assay (1300). Folate, D2, D3, and D total all within normal limits. Nausea Repeat EKG showed normal QTc (423), started on as needed prochlorperazine Possible DIDIER - per chart review Scr in November 2022 was 0.9 patient currently 1.21 Continue to monitor medications and dose adjust as necessary due to kidney function Medication Reconciliation Continue home brimonidine ophthalmic solution (glaucoma), dorzolamide-timolol ophthalmic solution (glaucoma), bupropion (anxiety, depression), escitalopram (anxiety, depression), PPI (GERD), ketorolac eye drops 0.5% (glaucoma) Enoch Garcia NT REPRESENTATIVE * Ward Venegas M.D. - 04/05/2023 6:40 AM CST T Medicine 2 ([facility]) PROGRESS NOTE SUBJECTIVE No acute events overnight. Feeling fatigued this morning, did not have anything to eat last night and is not currently hungry. Patient reports having a lot more difficulty knowing where her limbs are in space this admission, this is new for her and she has never had this before. It started few days ago when she was admitted.She also reports that she has a gagging sensation when putting food in her mouth. She does not haveany taste, she thinks this is due to COVID. She does not have any early satiety/satiation, dysphagia, odynophagia, and attributes her lack of eating to her nausea/gagging when food touches her tongue. I have reviewed the current medication list. OBJECTIVE VITAL SIGNS Temperature: [36.5 ??C-37 ??C] 36.5 ??C Resp Rate: [16-18] 18 Blood Pressure: (146-157)/(69-77) 155/69 SpO2: [92 %-97 %] 94 % Pulse Rate: [63-79] 79 PHYSICAL EXAM General: Alert, interactive, not acutely ill. Skin: No rashes or lesions. Eyes: Pupils equal and round. Sclera anicteric. ENT: Hearing grossly intact. Dentition intact. No oral or pharyngeal erythema or lesions noted. Lungs: Clear to auscultation. No wheezes or crackles. Heart: Regular rate and rhythm. No murmurs appreciated. No lower extremity edema. Abdomen: Soft, bowel sounds present. Neuro: Cranial nerves II-XII grossly intact. Significant dysmetria with left and right upper extremities on [id number]. Mental: Blunted affect. Alert and oriented x3. DIAGNOSTICS I have personally reviewed the laboratory data and imaging since admission, and in/outs for past 72hours. ASSESSMENT / PLAN Ms. Colon is hospitalized on [place] [id number] ([facility]) for evaluation and management of progressive weakness and confusion. Medical comorbidities include history of mild cognitive impairment, breast cancer in remission, non-melanoma skin cancer, anxiety, depression, osteopenia, and GERD. With regard to her hypercalcemia, etiology is likely secondary to calcium and vitamin-D supplementation combined with low p.o. intake and dehydration. This improved with IV fluids. PTH was low and SPEP/UPEP were unrevealing, but PTHrP and vitamin-D levels are pending. Other possible etiology could be hypercalcemia related to bony metastasis in the background of history of breast cancer, although with no concern for bone pain at this time my suspicion for this is low. Interestingly, the patient has also had recent development of splenomegaly, and new pancytopenia over the past few days. Thrombocytopenia was previously worked up outpatient including negative viral and fungal serologies. We will obtain EBV serology and leukemia lymphoma flow cytometry and involve our Hematology colleagues for further workup. Given new neurologic deficits seen on physical exam this morning, we will obtain MRI brain and C-spine and involve our neurology colleagues. Patient does appear to be generally quite debilitated and we will plan to have our physical and occupational therapy colleagues help assess her functional status. This does appear to be a chronic andgradual process that seems to have worsened over the last few years, based on discussion with family as well as looking at notes in the chart from 2021 with our PMR and Neurology colleagues who saw her in the setting of gait imbalance, cognitive impairment and parkinsonism. Today's Plan - CM searching for SNF placement - MRI brain and C-spine, neurology consult - EBV and leukemia lymphoma flow cytometry, heme consult # Generalized weakness # Altered mental status # Hypercalcemia; # Hypokalemia # Severe malnutrition; # Concern for refeeding - nutrition following, appreciate recs - hold home calcium, vitamin D supplementation, and hydrochlorothiazide given hypercalcemia and hypokalemia - follow PTHrP - MRI brain and c-spine pending, neurology following, appreciate recs # Pancytopenia; # Splenomegaly - concern for lymphoma or hematologic malignancy, heme consulted, appreciate recommendations - flow cytometry, EBV ordered # Gait instability # History of mild cognitive impairment - PT/OT evaluation given worsening functional status and recent falls # Nausea/vomiting - N/V currently improved and resolved # Mood: Continue home bupropion and escitalopram # GERD: continue PPI # Glaucoma: continue home timolol, brimonidine eye drops, ketorolac eye drops # History of breast cancer - Family reports patient is not currently on hormone therapy due to side effects. She is monitored with mammogram, most recently 07/14/2022 without evidence of recurrence Baseline Mobility: BMAT Level 3 (Able to stand but cannot take steps without help) Diet: Adult Diet Regular Tubes/lines: PIV and Lyon VTE prophylaxis: heparin Code status: DNR Surrogate Decision Maker: Spouse, Philippe Disposition: Uncertain Severe Malnutrition The patient meets the ASPEN Criteria of malnutrition based on: Energy Intake: Less than or equal to 75% of estimated energy requirement for greater than or equal to 1 month Interpretation of Weight Loss: greater than 5% 1 month Body Fat: Mild Loss Muscle Mass: Mild Loss This is in the context of Chronic Illness. Malnutrition Present Upon Admission: Yes Agree with Registered Dietitian's assessment and treatment plan: Interventions: Medical food supplement, Increase nutrient intake with small, frequent meals and/or snacks, Assess oral intake with calorie count Plan discussed with [facility] Medicine 2 ([facility]) Support Associate, Dr. Hernandez, who was present during jorge portions of the evaluation today. Please page the [facility] Medicine 2 ([facility]) service pager at [phone] with any questions. Ward Venegas MD PGY-1 Internal Medicine Pager [phone] NT REPRESENTATIVE * Marialuisa Steward, M.S., RDN, LD - 04/04/2023 1:35 PM CST Clinical Nutrition: Reassessment Clinical Nutrition continues to follow patient for assessment of nutritional status, oral intake encouragement, and calorie count SUBJECTIVE Ms. Colon is a 82 y.o. female admitted for weakness Medical comorbidities include history of mild cognitive impairment, breast cancer (treated with lumpectomy and sentinel node dissection, hypofractionated whole breast radiation, anastrozole, tamoxifen), non-melanoma skin cancer, anxiety, depression, osteopenia, and GERD Completed visit with patient, family, and care team today as part of face to face care. Current Nutrition (since admission): Calorie count documentation reveals 0% intake of 3 meals and 2ONS yesterday 04/03. Visited patient and at bedside. stated that the patient had 3 bites of mashed potatoes yesterday (negligible calories / protein). expressed concern about pat rina's ability to increase her oral intake. Patient was able to tell typewriter assembly and parts inspector today that she likes orange sherbet and she liked the mashed potatoes she tried yesterday; she was amenable to receive these today. Patient also indicated that she likes the flavors of the scheduled ONS, though she did not eat them yesterday. Direct Service Worker was contacted by primary service this afternoon. Plan is for discussions about nutrition goals of care / potential feeding tube placement tomorrow with family. OBJECTIVE Current nutrition orders: Dietary Orders (From admission, onward) Start Ordered 04/03/23 1518 Oral supplement -Supplement; Magic Cup (vanilla); Take at: Lunch Until discontinued Question Answer Comment Type: Supplement Supplement: Magic Cup (vanilla) Take at: Lunch 04/03/23 1517 04/03/23 1517 Oral supplement -Supplement; Ensure Clear (mixed maria); 1 each; Take at: Dinner Until discontinued Question Answer Comment Type: Supplement Supplement: Ensure Clear (mixed maria) Size: 1 each Take at: Dinner 04/03/23 1517 04/03/23 1517 Oral supplement -Supplement; Ensure Clear (apple); 1 each; Take at: Breakfast Until discontinued Question Answer Comment Type: Supplement Supplement: Ensure Clear (apple) Size: 1 each Take at: Breakfast 04/03/23 1517 04/02/23 1537 Adult Diet Regular Diet effective now Question: Diet texture: Answer: Regular 04/02/23 1547 Swallow function: Passed Owens bedside swallow 04/02 Pertinent Labs: Reviewed; zinc and vitamin B6 pending Latest Reference Range & Units 04/03/23 05:45 04/04/23 08:28 Potassium, S 3.6 - 5.2 mmol/L 3.5 (L) 3.3 (L) (L): Data is abnormally low Latest Reference Range & Units 04/03/23 05:45 Magnesium 1.7 - 2.3 mg/dL 2.2 Phosphorus (Inorganic), S 2.5 - 4.5 mg/dL 1.9 (L) (L): Data is abnormally low Latest Reference Range & Units 04/04/23 08:28 Folate, S >=4.0 mcg/L 8.9 Vitamin B12 Assay, S 180 - 914 ng/L 1300 (H) (H): Data is abnormally high Latest Reference Range & Units 04/02/23 16:14 25-Hydroxy D Total ng/mL 69 Medications: Reviewed; include Therapeutic-M, protonix, miralax, senokot-s; lactated ringer's stopped this morning; patient received potassium chloride and phos-nak supplementation yesterday GI Function: , , Passing Flatus: No Anthropometrics: Height: 149.9 cm Admission Weight: 54 kg (04/02/2023) Current Weight: 54 kg BMI (Calculated): 24 kg/m?? Weight change since admission: 0 kg Net IO Since Admission: 1,976.33 mL [04/04/23 1335] Weight history: Wt Readings from Last 12 Encounters: 04/03/23 54 kg 04/13/22 57 kg 12/22/21 55 kg 06/13/21 59.4 kg 06/13/21 60.3 kg 05/10/21 62.3 kg 09/22/20 58.5 kg Weight Change History: Family estimated abour 7lb wth loss from her UBW of 128 lbs (28kg), 6% weight loss in 1 month Estimated Needs: Total Calorie Needs: 6900-1209 calories/day Method to Estimate Energy Needs: kcal/kg (25-30 kcal/kg) Weight Used for Equation Calculations: 54 kg Total Protein Needs: 54 - 65 grams/day (Method to Estimate Protein Needs (g/kg): 1 - 1.2 gm/kg) Weight Used to Calculate Protein Needs (Kg): 54 kg Nutrition Diagnosis: Inadequate protein-energy intake related to decreased appetite/ NV as evidenced by Family reported intake and >5% wt loss in 1 m Malnutrition Criteria: Severe Malnutrition The patient does meet the ASPEN Criteria of malnutrition based on: Energy Intake: Less than or equal to 75% of estimated energy requirement for greater than or equal to 1 month Interpretation of Weight Loss: greater than 5% 1 month Body Fat: Mild Loss Muscle Mass: Mild Loss This is in the context of Chronic Illness. ASSESSMENT / PLAN ASPEN Criteria Malnutrition Status: Severe Malnutrition Nutrition Intervention: Interventions: Medical food supplement, Increase nutrient intake with small, frequent meals and/or snacks, Assess oral intake with calorie count. Recommendations: Continue calorie count Monitor / replace potassium, magnesium, and phosphorus as indicated due to refeeding risk Nutrition goals of care discussions Monitoring/Evaluation: Nutrition parameter to monitor: Meals/Supplement Intake, Weight Status, Nausea/Vomiting/Diarrhea, Wound Healing Desired Outcome: Consume adequate nutrition orally Patient Goal(s): Consume 50-100% of 3 meals daily and Consume 50-100% of 3 oral nutrition supplements daily Clinical Nutrition will continue to follow. For questions about patient's nutritional care please contact pager [phone] on weekdays 07:30-16:00 or [phone] on weekends/holidays. NT REPRESENTATIVE * Quinn Hernandez M.D., M.H.P.E. - 04/04/2023 10:39 AM CST This is a supervisory note for the Medicine 2 team. I saw and evaluated the patient. I reviewed with the Medicine 2 team the medical history and the findings on physical examination. I discussed withthe resident and Medicine 2 team the patient???s diagnosis and concur with the treatment plan as documented in the resident note. Generalized weakness Encephalopathy Hypercalcemia, 13.7, improving Thrombocytopenia Metabolic alkalosis Nausea/vomiting Poor appetite Unintentional weight loss Hypokalemia Elevated creatinine, DIDIER versus CKD Elevated TSH, mild, 4.7 Troponinemia Osteopenia on Ca/Vit D Hypertension on hydrochlorothiazide History of [id number], ER positive [place] positive, HER-2 negative left-sided breast invasive ductal carcinoma with Oncotype DX recurrence score of 6 status post lumpectomy/sentinel lymph node dissection 2017 followed by postop XRT on Arimidex (original plan 5-10 years) Mild cognitive impairment vs mild dementia as per 03/2022 neurology evaluation Parkinsonism Gait instability Mild essential tremor Anxiety and depression Mrs. Colon is a very pleasant 82-year-old woman who presented with generalized weakness and changein mental status in the setting of hypercalcemia. Today her mental status has improved, and she is more responsive, answering questions in bed and opening her eyes. She is still not at her baseline but appears to be moving in the correct direction. Calcium has continued to trend downward in a reassuring direction and is 10.7 today. Parathyroid hormone related peptide is pending. I anticipate someof the improvement in mental status is likely from the improving hypercalcemia. She did have poor oral intake yesterday, and this appears to be a more chronic issue worsening after her COVID infection earlier this year. Nutrition has been consulted, and we appreciate their recommendations. Lastly, we will discontinue aggressive intravenous fluids given improvement in calcium, mental status, and to prevent volume overload. She still has several labs pending and likely ready for discharge within 48 hours. Rest of details per medicine 2 team note. NT REPRESENTATIVE * Chi Prakash P.T., D.P.T. - 04/04/2023 9:10 AM CST Physical Therapy Inpatient Treatment SUBJECTIVE Patient's Name: Darcy Colon Referring/Attending Provider: Darrell Zabala M.D. Reason for Referral: Physical Therapy Evaluate and Treat History of Present Illness: Darcy Colon is a 82 y.o. female who was admitted to [facility] in [place] on 04/02/2023 for Hypercalcemia [E83.52] Hypokalemia [E87.6] Weakness General [R53.1] Precautions Other Precautions: Fall, cog Pain Assessment: Pain not reported during session. Patient/Caregiver Goals: No goals stated Subjective Comments: Patient Nursing agreed to session. OBJECTIVE Vital Signs Vitals monitored throughout session; within normal ranges. Outcome Measures: AM-PAC Inpatient Short Form: AM-PAC Basic Mobility (V.2) How much help from another person do you currently need???If the patient hasn't done an activity recently, how much help from another person do you think he/she would needif he/she tried? 1. Turning from your back to your side while in a flat bed without using bedrails?: A Little 2. Moving from lying on your back to sitting on the side of a flat bed without using bedrails?: A Lot 3. Moving to and from a bed to a chair (including a wheelchair)?: A Lot 4. Standing up from a chair using your arms (e.g., wheelchair, or bedside chair)?: A Lot 5. To walk in hospital room?: Total 6. Climbing 3-5 steps with a railing?: Total [facility] Basic Mobility (V.2) Raw Score: 11 [facility] Basic Mobility (V.2) Standardized Score: 30.25 Interpretation: Based on scoring guidelines using the raw score value: Those going to home had an average score at or above 18 Those going to facility had an average score at or below 17 Clinicians answer the [facility] Inpatient Short Form based on observed patient activity and/or clinical judgement (ie. patient can be scored without physically performing each activity) Therapeutic Interventions: SUPINE TO SIT: Assistance Level: Minimal Assistance of 1 Device: head of bed elevated and bedrail Assistance/Cueing: verbal and tactile for Completion of transfer, Logrolling, Lower extremity movement/management, Lower extremity placement, Sequencing, Technique, Trunk support, and Upper extremityplacement Delivery: educated, instructed, assessed, and assisted SIT TO STAND: Assistance Level: Minimal Assistance, Moderate Assistance of 1 Device: gait belt and martir stedy Surface: Bed, Martir Stedy Paddle, and Toilet Assistance/Cueing: verbal and tactile for Anterior weight shifting, Lower extremity placement, Manual facilitation provided for force generation, Sequencing, Technique, and Terminal hip extension Delivery: educated, instructed, assessed, and assisted Comments: Min assist x1 from edge of bed, mod assist x1 from toilet STAND TO SIT: Assistance Level: Minimal Assistance of 1 Device: gait belt and martir stedy Surface: Chair, Martir Stedy Paddle, and Toilet Assistance/Cueing: verbal and tactile for Eccentric control and Upper extremity placement Delivery: educated, instructed, assessed, and assisted PIVOT TRANSFERS: Surface:Bed and Commode to Chair and Commode Assistance Level: Total Assistance of 1 Device: gait belt and martir stedy Approach: stand pivot Assistance/Cueing: verbal and tactile for Sequencing Delivery: educated, instructed, assessed, and assisted BALANCE: Seated: Static Assist Level: Minimal Assistance Upper extremity support on bed Intervention: posture, reaching Assistance/Cueing: verbal and tactile Standing: Static Assist Level: Minimal Assistance Upper extremity support on Martir steady bar Intervention: posture, reaching Assistance/Cueing: verbal and tactile COGNITION: Somnolent but arousable, Disoriented to time and situation, Impaired Safety/Judgement, Follows 1 step commands, with repetition, with increased time THERAPEUTIC EXERCISE: Seated Therapeutic Exercise: Side: bilateral Mode: active range of motion Exercises: Ankle pumps and Long arc quads Repetitions: 10 Assist/cueing: Patient falling asleep throughout. Education : The patient/family educated on safe transfer techniques with functional mobility/activity. The patient's status was discussed and the following coordination of care occurred with the: RN OT Family/Caregiver Present: Spouse Patient was left in bedside chair with chair alarm on at end of session with call light in reach, all needs met and questions answered. Assessment Discharge Therapy Needs - PT: Ongoing skilled physical therapy Skilled therapy can include physical therapy provided by home health, outpatient clinic, or a post-acute facility. The location of these services is determined by the patient's care team in partnership with patient/family. Level of Care Needed - PT: Assistance with transfers (Comment), Assistance with walking and moving around the home, Assistance with bed mobility, Assistance with stairs, Cognitive assistance needed, Physical assistance needed Equipment Recommended - PT: Hospital bed, Wheelchair, Mechanical lift Barriers to Discharge Home: Current functional status, Fall risk, Inaccessible home environment, Safety concerns Barriers to Discharge Comments: 2 stairs to enter residence. From a physical therapy perspective, the level of care above has been recommended for Ms. Colon after hospital discharge. This level of care is based on her functional abilities during today's session. This may change throughout the hospital course and will be updated as appropriate. Clinical Impression: Patient presents to PT today with significant deficits in mobility, transfers, ambulation, balance and safety. Patient pleasant and agreeable to PT treatment session although quite somnolent and often falling asleep throughout. Today patient required min assist x1 for bed mobility as well as Min assist x1 for [id number]-cm-mbxly transfer from edge of bed, mod assist x1 from toilet, stand pivot transfer to various surfaces total assist x1 via Martir steady. Unable to ambulate at this time due to weaknessand safety concerns. Patient will continue to benefit from skilled PT in acute care setting as wellas ongoing skilled therapy as she is currently below her functional baseline. Rehab potential: Ms. Colon has Good potential to achieve established physical therapy goals withinthe time frame outlined below. Progress: Slow progress, limited activity tolerance, Slow progress, cognitive deficits Plan PT Plan Comments: Continue to progress mobility, transfers, ambulation, balance and safety. Stair training when appropriate. Functional Goals: PT Inpatient Goals PT Goal #1: Patient will be able to complete all bed mobility independently with no physical assistand no verbal cues necessary in order to facilitate return to PLOF. PT Goal #1 Status: Slowly progressing PT Goal #2: Patient will be able to complete STS transfer from edge of bed to standing modified independent utilizing front wheel walker for assist, in order to allow for functional transfers at home. PT Goal #2 Status: Slowly progressing PT Goal #3: Patient will be able to ambulate 30m modified independent utilizing front wheel walker for assist, in order to allow for functional ambulation upon DC. PT Goal #3 Status: Ongoing PT Goal #4: Patient will be able to safely navigate 2 stair(s) under supervision in order to allow access into/to all levels of their home prior to discharge. PT Goal #4 Status: Ongoing Treatment Plan: Plan: Continue with current plan PT Frequency: 5 times per week PT Inpatient Duration : Until goals are met or hospital discharge Requires Inpatient Follow-Up: Yes PT - Next Inpatient Appointment: 04/05/23 Patient unable to verbalize agreement to the plan of care and goals due to mental status or level of consciousness, but family members present to consult and agree with the plan as stated above. Treatment interventions may include: Treatment/Interventions: Therapeutic exercise, Therapeutic functional activity, Neuromuscular re-education, Gait training, Self-care/home management Billing: Time Spent with Patient Therapeutic Interventions Therapeutic Activity (min): 23 min Time Tracking Total Timed Units (min): 23 min Total Treatment Time (min): 23 min Chi Prakash P.T., D.P.T. NT REPRESENTATIVE * Enoch Garcia 04/04/2023 6:42 AM CST Pharmacist Progress Note Reason for admission: progressive weakness and confusion PMH: history of mild cognitive impairment, breast cancer (treated with lumpectomy and sentinel nodedissection, hypofractionated whole breast radiation, anastrozole, tamoxifen), non-melanoma skin cancer, anxiety, depression, osteopenia, and GERD OBJECTIVE Home medications per RN Held: carbidopa-levodopa and donepezil (never started), HCTZ, hydroquinone 4% cream, calcium-vitamin D, Vitamin D3 Changed: acetaminophen (changed frequency) New: senna-S, Miralax folic acid S+T: PPI Patient own medications: None VTE Prophylaxis: Heparin 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 ASSESSMENT / PLAN Weakness, altered mental status Unclear etiology: Infectious work-up pending. Labs that are still pending include PTHrP, Vitamin B6, Zinc Hypercalcemia Hypokalemia Hypophosphatemia. Malnutrition/possible refeeding syndrome. Continue to monitor labs and replete as necessary. Stopping LR with calcium downtrending towards normal range Continue to monitor refeeding labs of potassium, magnesium, and phosphate. Holding home calcium-vitamin D, vitamin D supplementation, and HCTZ. Nausea with prolonged QTc (528 2/05). Avoid use of medications that prolong the QTc. Would consider repeat EKG. Patient's prior QTcs were [phone] in 2021 Possible DIDIER - per chart review Scr in November 2022 was 0.9 patient currently 1.02 Continue to monitor medications and dose adjust as necessary due to kidney function Medication Reconciliation Continue home brimonidine ophthalmic solution (glaucoma), dorzolamide-timolol ophthalmic solution (glaucoma), bupropion (anxiety, depression), escitalopram (anxiety, depression), PPI (GERD), ketorolac eye drops 0.5% (glaucoma) Enoch Garcia NT REPRESENTATIVE * Cinda Henson M.D. - 04/03/2023 2:39 PM CST [facility] 2 ([facility]) PROGRESS NOTE SUBJECTIVE No acute events overnight. Patient feels about the same as yesterday. Nausea better controlled, last emesis episode was yesterday. I have reviewed the current medication list. OBJECTIVE VITAL SIGNS Temperature: [36.4 ??C-36.9 ??C] 36.9 ??C Resp Rate: [16] 16 Blood Pressure: (128-157)/(74-87) 143/78 SpO2: [94 %-99 %] 94 % Height: [149.9 cm] 149.9 cm Weight: [54 kg] 54 kg BSA (Calculated - sq m): [1.5 sq meters] 1.5 sq meters BMI (Calculated): [24 kg/m??] 24 kg/m?? Pulse Rate: [70-81] 79 PHYSICAL EXAM General: Alert, interactive, not acutely ill. Skin: No rashes or lesions. Eyes: Pupils equal and round. Sclera anicteric. ENT: Hearing grossly intact. Dentition intact. No oral or pharyngeal erythema or lesions noted. Lungs: Clear to auscultation. No wheezes or crackles. Heart: Regular rate and rhythm. No murmurs appreciated. No lower extremity edema. Abdomen: Soft, bowel sounds present. Tender to deep palpation in left upper and lower quadrants. Norigidity or guarding. Neuro: Cranial nerves II-XII grossly intact. No focal neurologic deficits. Mental: Blunted affect. Occasionally responds to questions with tangential answers. DIAGNOSTICS I have personally reviewed the laboratory data and imaging since admission, and in/outs for past 72hours. ASSESSMENT / PLAN Ms. Colon is hospitalized on [place] [id number] ([facility]) for evaluation and management of progressive weakness and confusion. Medical comorbidities include history of mild cognitive impairment, breast cancer ([id number], ER positive [place] positive, HER- 2 negative left-sided breast invasive ductal carcinoma with Oncotype DX recurrence score of 6 status post lumpectomy/sentinel lymph node dissection 2016 followed by hypofractionated whole breast radiation, anastrozole, tamoxifen original plan 5-10 years), non-melanoma skin cancer, anxiety, depression, osteopenia, and GERD. With regard to her hypercalcemia, it has improved gradually with administration of bolus and maintenance fluids, which we will plan to continue at 250 cc/hr today. Etiology of the hypercalcemia couldbe related to compounded effect of prior dehydration with low oral intake, supplementation of calcium and vitamin D. PTH was noted to be low, therefore unlikely primary hyperparathyroidism. We will plan to follow up on 25-hydroxy vitamin D, and also check 1,25 hydroxyvitamin D for possibility of granulomatous causes and PTHrP for possible hypercalcemia of malignancy. SPEP and UPEP unrevealing forparaproteinemia. Other possible etiology could be hypercalcemia related to bony metastasis in the [place] of history of breast cancer, although with no concern for bone pain at this time my suspicion for this is low. As for her thrombocytopenia, this has been worked up by Oncology in the outpatient setting, with a most recent visit 01/2023. Infectious serologies including histo, blasto, HIV, Hep C were negative. Abdominal ultrasound does show splenomegaly with spleen length 18 cm which could be the etiology of her thrombocytopenia. Her platelets are stable today, we will plan for patient to continue followup with her outpatient narcotics and/or vice detective. Patient does appear to be generally quite debilitated and we will plan to have our physical and occupational therapy colleagues help assess her functional status. This does appear to be a chronic andgradual process that seems to have worsened over the last few years, based on discussion with family as well as looking at notes in the chart from 2021 with our PMR and Neurology colleagues who saw her in the setting of gait imbalance, cognitive impairment and parkinsonism. # Generalized weakness # Altered mental status # Hypercalcemia # Hypokalemia - continue maintenance IVF 250 cc/hr, reevaluate calcium in the AM - hold home calcium, vitamin D supplementation, and hydrochlorothiazide given hypercalcemia and hypokalemia - obtain repeat PTHrP, 1-25 hydroxy vitamin D, follow up 25 hydroxyvitamin D # Gait instability # History of mild cognitive impairment - PT/OT evaluation given worsening functional status and recent falls # Nausea/vomiting # Prolonged QTc - N/V currently improved and resolved - Given prolonged QTc, avoid QT prolonging antiemetics # Thrombocytopenia - This has been worked up in the outpatient setting, most recent visit 01/2023. - Will continue to monitor with daily CBC, stable - Abdominal ultrasound showing splenomegaly with spleen length 18 cm - Negative histoplasma and blastomyces antigen, HIV, Hep C, CMP # Anxiety # Depression - Continue home bupropion and escitalopram # GERD - continue home PPI # Glaucoma - continue home timolol, brimonidine eye drops, ketorolac eye drops # History of breast cancer - Family reports patient is not currently on hormone therapy due to side effects. She is monitored with mammogram, most recently 07/14/2022 without evidence of recurrence Baseline Mobility: BMAT Level 3 (Able to stand but cannot take steps without help) Diet: general diet Tubes/lines: PIV and [place] VTE prophylaxis: heparin Code status: DNR Surrogate Decision Maker: Spouse, Philippe Disposition: Uncertain Plan discussed with [facility] Medicine 2 ([facility]) Support Associate, Darrell Anderson M.D., who was present during jorge portions of the evaluation today. Please page the [facility] Medicine 2 ([facility]) service pager at [phone] with any questions. NT REPRESENTATIVE * Darrell Zabala M.D. - 04/03/2023 2:31 PM CST Generalized weakness Encephalopathy Hypercalcemia, 13.7, improving Thrombocytopenia Metabolic alkalosis Nausea/vomiting Poor appetite Unintentional weight loss Hypokalemia Elevated creatinine, DIDIER versus CKD Elevated TSH, mild, 4.7 Troponinemia Osteopenia on Ca/Vit D Hypertension on hydrochlorothiazide History of [id number], ER positive [place] positive, HER-2 negative left-sided breast invasive ductal carcinoma with Oncotype DX recurrence score of 6 status post lumpectomy/sentinel lymph node dissection 2016 followed by postop XRT on Arimidex (original plan 5-10 years) Mild cognitive impairment vs mild dementia as per 03/2022 neurology evaluation Parkinsonism Gait instability Mild essential tremor Anxiety and depression I have discussed the history, physical exam, and assessment plan with medicine 2 team, and I've personally evaluated the patient. Please refer to the notes of the medicine 2 team for complete details. Mrs. Colon is unchanged from the perspective of generalized weakness and change in mental status. Hypercalcemia is responding well to IV hydration. We continue to work to identify the etiology and note that the PTH is suppressed, appropriately. Rectal exam yesterday did not demonstrate impacted stool. We will monitor bowels. No localizing infectious symptoms. No new pain to suggest bony metastases; as per note yesterday, will await further testing and response to therapy before exploring that possibility. SPEP does show small abnormality in gamma region, and we will wait final results. We did learn that she had 1 controlled fall onto her hip yesterday, and this was witnessed. Regarding her weight loss and poor appetite, the etiology is not entirely clear though we will assess for depression when able. We will also ask a dietitian to visit with her and start calorie countsto get an idea of how much nutrition she is getting. We would use this as a motivating factor, perhaps. We will consider checking multiple nutrition indices. Follow blood cultures. Regarding anemia and thrombocytopenia, I will see what workup has been done but it sounds like she has been evaluated to some extent. If there is no evidence of cirrhosis causing portal hypertension and splenomegaly, the anemia and thrombocytopenia in the setting of splenomegaly with likely be next addressed by bone marrow biopsy if all other routine testing has been normal. That said this may not be consistent with her wishes and can be explored more so in the outpatientsetting. Consider head CT/MRI for metastases if not clearing as expected. Ultrasound abdomen for splenomegaly and liver evaluation. PT/OT. NT REPRESENTATIVE * Enoch Garcia - 04/03/2023 12:47 PM CST Images from the original note were not included. Admission Medication History Note Adherence issues: No concerns Medication list source: Patient, Family member, Care Everywhere or chart review, and Pharmacy or dispense records Medication related information: Removed - patient and have Carbidopa levodopa - prescription never filled and patient has never taken it Donepezil - prescription never filled and patient has never taken it Ibuprofen - for pain she uses her daily acetaminophen and prn aspirin. She does not use ibuprofen Changed Escitalopram (10 mg to 20 mg) - states that they recently increased the escitalopram to 20 mg daily. First filled on 03/31 #90/90. Vitamin B-12 (daily to every other day) - patient states that they take this vitamin every other day at home Ketorolac eye drops (0.4% --> 0.5%) - all recent fills are the 0.5% strength and confirms still using this (LF: 03/27 #5) Added Acetaminophen - patient takes one tablet by mouth daily. She almost never uses anymore throughout the day Ondansetron 4 mg ODT tabs - patient filled #12 on 03/18 and patient uses as needed for nausea still. states she used her last dose the day before coming in. Aspirin 325 mg tabs - patient states that she takes an aspirin as needed if she is having pain. Shestates that she does not take this regularly. Prior to Admission Medications Med List Status: Pharmacy/RN Complete Set By: Enoch Garcia at 04/03/2023 12:53 PM Taking? Last Dose Informant Start Date End Date LT acetaminophen (TYLENOL) 500 mg tablet 04/02/2023 -- -- -- Take 500 mg by mouth daily. aspirin 325 mg tablet Past Month -- -- -- Take 325 mg by mouth every 6 (six) hours as needed for pain or headaches. brimonidine (ALPHAGAN) 0.2 % ophthalmic solution Past Week -- -- -- Administer 1 drop into both eyes 3 (three) times a day. qebugrsylaz-unmwhjycc-PRVMDJAveab 0.25%-1%-1:200,000 injection 2-25 mL -- -- 07/02/20 -- 2-25 mL, infiltration, As needed, may repeat if the patient complains of pain/discomfort at the site up to 50 mL for entire procedure, Starting on Sun07/02/20 at 0920 buPROPion XL (WELLBUTRIN XL) 150 mg 24 hr tablet 04/02/2023 -- 02/09/17 -- Take 150 mg by mouth daily. calcium carbonate-vitamin D3 1,500 mg (600 mg calcium)-10 mcg (400 Unit) per tablet Past Week -- ---- Take 1 tablet by mouth daily with breakfast. cholecalciferol, vitamin D3, 25 mcg (1,000 Unit) tablet Past Week -- -- -- Take 50 mcg by mouth daily. cyanocobalamin, vitamin B-12, 1,000 mcg capsule Past Week Self 06/18/20 -- Take 1 tablet by mouth every other day. dorzolamide-timoloL (COSOPT) 22.3-6.8 mg/mL ophthalmic solution Past Week Self -- -- Administer 1 drop into both eyes 2 (two) times a day. escitalopram (LEXAPRO) 20 mg tablet 04/02/2023 Self 12/06/21 -- Take 20 mg by mouth daily. hydroCHLOROthiazide (HYDRODIURIL) 25 mg tablet 04/02/2023 Self 09/07/20 -- Take 25 mg by mouth daily. hydroquinone 4 % cream Past Month -- 11/16/22 -- Apply 1 Application topically 2 (two) times a day. Apply to the dark spots on the face for 2 months. Take a break for a month and use for additional 2 months if needed. ketorolac (ACULAR) 0.5 % ophthalmic solution Past Week Self -- -- Administer 1 drop into both eyes 2 (two) times a day. omeprazole (PriLOSEC) [address] capsule 04/01/2023 -- 06/18/20 -- Take 20 mg by mouth at bedtime. ondansetron ODT (ZOFRAN-ODT) 4 mg disintegrating tablet Past Week -- -- -- Dissolve 4 mg in the mouth every 8 (eight) hours as needed for nausea or vomiting. NT REPRESENTATIVE * Kamran Parrish R.N. - 04/03/2023 10:41 AM CST SUBJECTIVE Attempted to see patient to address dismissal planning.. OBJECTIVE Patient not seen at this time. ASSESSMENT Unable to complete assessment as patient was not available when I attempted to meet with her. She was at a procedure, but should return following procedures. PLAN Case Management will attempt to see patient at a later time, when available. * Enoch Garcia - 04/03/2023 6:18 AM CST Pharmacist Progress Note Reason for admission: progressive weakness and confusion PMH: history of mild cognitive impairment, breast cancer (treated with lumpectomy and sentinel nodedissection, hypofractionated whole breast radiation, anastrozole, tamoxifen), non-melanoma skin cancer, anxiety, depression, osteopenia, and GERD OBJECTIVE Home medications per RN Held: carbidopa-levodopa and donepezil (never started), HCTZ, hydroquinone 4% cream, Ketoralac eye drops, calcium-vitamin D, Vitamin D3, ibuprofen Changed: - New: acetaminophen, senna-S, Miralax, phos-nak S+T: PPI Patient own medications: None VTE Prophylaxis: Heparin 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 ASSESSMENT / PLAN Weakness, altered mental status Unclear etiology: Infectious work-up pending. Hypercalcemia Hypokalemia Hypophosphatemia. Continue to monitor labs and replete as necessary. Administered 1 L NS in the ED and continuous LR 250/mL/hr on the floor. Holding home calcium-vitamin D, vitamin D supplementation, and HCTZ. Nausea with prolonged QTc (528 /). Avoid use of medications that prolong the QTc. Would consider repeat EKG. Patient's prior QTcs were [phone] in 2021 Administered one dose of odt olanzapine 2.5 mg yesterday to help with nausea and patient was actively taking 4 mg ondansetron for over two weeks before administration. Possible DIDIER - per chart review Scr in November 2022 was 0.9 patient currently 1.13 Continue to monitor medications and dose adjust as necessary due to kidney function Medication Reconciliation Continue home brimonidine ophthalmic solution (glaucoma), dorzolamide-timolol ophthalmic solution (glaucoma), bupropion (anxiety, depression), escitalopram (anxiety, depression), PPI (GERD) Enoch Garcia NT REPRESENTATIVE documented in this encounter H&P Notes * Darrell Zabala M.D. - 04/02/2023 7:33 PM CST Generalized weakness Encephalopathy Hypercalcemia, 13.7 Thrombocytopenia Metabolic alkalosis Nausea/vomiting Hypokalemia Elevated creatinine, DIDIER versus CKD Elevated TSH, mild, 4.7 Troponinemia Osteopenia on Ca/Vit D Hypertension on hydrochlorothiazide History of [id number], ER positive [place] positive, HER-2 negative left-sided breast invasive ductal carcinoma with Oncotype DX recurrence score of 6 status post lumpectomy/sentinel lymph node dissection 2016 followed by postop XRT on Arimidex (original plan 5-10 years) Mild cognitive impairment vs mild dementia as per 03/2022 neurology evaluation Parkinsonism Gait instability Mild essential tremor Anxiety and depression I have discussed the history, physical exam, and assessment plan with medicine 2 team, and I've personally evaluated the patient. Please refer to the notes of the medicine 2 team for complete details. Briefly, Mrs. Colon is an 82-year-old woman here for evaluation of generalized weakness and changein mental status manifesting as increased sleeping. Past medical history is significant for mild cognitive impairment versus mild dementia as per for March 2022 neurology evaluation, parkinsonism, hypertension on hydrochlorothiazide, and left breast invasive ductal carcinoma 2017 status post lumpectomy, radiation, and Arimidex (5 years ?). She had COVID in the beginning of February followed by diverticulitis and urinary tract infections. Her appetite declined, she added difficulty communicating and understanding conversations, has not been able to mobilize independently and is sleeping all day for the past week. She has had no changesin prescription or over the counter medications. We will check bladder scans if . Last BM was yesterday though was reportedly loose; will perform rectal exam to ensure no impacted. No localizing infectious symptoms. No new pain to suggest bony metastases; will await further testing and response to therapy before exploring that possibility. Lastly, confirm no falls to warrant head imaging sooner. Labs show hypokalemia, hypercalcemia, metabolic alkalosis, elevated creatinine, and thrombocytopenia. Replete potassium. Stop HCTZ. Check Mg. IV hydration for hypercalcemia and likely DIDIER and contraction alkalosis. Check phosphorous, vitamin D, and PTH. Stop Ca and Vit D. IV hydration for hypercalcemia. Monoclonal protein study. Check INR. CBC values likely overestimated from dehydration/hemoconcentration. Follow blood cultures. Consider head CT/MRI for metastases if not clearing as expected. Ultrasound abdomen for splenomegaly and liver evaluation. PT/OT. NT REPRESENTATIVE * Milli Faria M.D. - 04/02/2023 11:00 AM CST [facility] Medicine 2 ([facility]) Admission Note SUBJECTIVE CHIEF COMPLAINT Weakness HISTORY OF PRESENT ILLNESS Ms. Darcy Colon is a 82 y.o. female who presents with weakness. Per report, patient presentedto the ED 04/02 for progressive weakness and confusion. She had COVID in early February 2023. After this, the patient developed left flank pain and splenomegaly. She was also diagnosed with diverticulitis which was managed medically with antibiotics (the patient was treated at [facility], [place], records not available through Care Everywhere at this time). Family reports that the patient developed increasing weakness approximately one week ago, and was diagnosedwith a UTI in the last 4-5 days, but was not started on antibiotics. She flew here with her husbandon 04/01. Of note, she has also developed decreased appetite and weight loss of approximately seven pounds. Her tells me she drinks approximately one 8oz glass of water daily. She has also beenbecoming progressively weaker. She has difficulties with balance at baseline and uses a walker. However, over the last few days, she has been unable to walk independently. Medical comorbidities include history of mild cognitive impairment, breast cancer (treated with lumpectomy and sentinel node dissection, hypofractionated whole breast radiation, anastrozole, tamoxifen), non-melanoma skin cancer, anxiety, depression, osteopenia, and GERD. Her home medications include Vitamin D3 25mcg daily, hydrochlorothiazide 25mg daily, buprioprion 150 daily, escitalopram 20mg daily, tylenol 500mg daily prn, omeprazole 20mg every night; vitamin B12 1000 mcg every other night, vitamin B bone builder every night. Patient was last seen February 13, [address] Abraham with Oncology at [facility] for thrombocytopenia. At that visit, her mild thrombocytopenia was thought to be medication related vs nutritional deficiency vs splenomegaly. She did not endorse any B symptoms or clinical symptoms suggestive of malignancy at that time. The plan at the conclusion of the visit was lab monitoring in three months and repeat CT chest abdomen pelvis to monitor splenomegaly. Upon presenting to the Emergency Department, the patient was afebrile and hemodynamically stable. She is accompanied by her and was brought in using wheelchair. Labs were notable for Hgb 11.6, Plts 69 (baseline reportedly around 100k), WBC 4.4. Electrolytes notable for Potassium 2.7, calcium 13.7, sodium 140, glucose 112, creatinine 1.14 (baseline 0.9). Lactate 1.0. Troponin 16, 2 hour pending. Urinalysis demonstrated no leukocytes or nitrites. Negative for COVID, Flu, RSV. Blood cultures were obtained. Fluid resuscitation was initiated, patient received a total of 1L. Patient also received 80 mEq potassium. The patient was admitted to the Medicine 2 service for ongoing workup and management. Upon arrival to the Medicine floor, Mrs. Colon is alert and awake. She is accompanied by her who provides the history. She is on room air saturating >90%. HR is 70bpm, BP is 128/87mmHg, she is afebrile. Endorses nausea and abdominal pain. The following portions of the patient's history were reviewed and updated as appropriate: allergies, current medications, family history, medical history, social history, surgical history, and problem list. REVIEW OF SYSTEMS Pertinent positives and negatives as documented in the above HPI. CV: She denies chest pain or dyspnea. Neurological: She has been increasingly more confused over the last month. GI: She has had ongoing nausea/vomiting over the last few weeks, in addition to decreased PO intake. She endorses left sided abdominal pain. Bowel movements have been Cache type 1, she reports approximately 1 BM daily. No ofelia blood in stool. Constitutional: Denies fever. Endorses occasional chills with hot flashes. Endorses night sweats. states she has had an approximate 7 lb weight loss in the setting of decreased PO intake. Current Outpatient Medications on File Prior to Encounter: brimonidine (ALPHAGAN) 0.2 % ophthalmic solution, Administer 1 drop into both eyes 3 (three) times a day., 04/01/2023 buPROPion (WELLBUTRIN SR) 150 mg 12 hr tablet, Take 150 mg by mouth daily., 04/01/2023 calcium carbonate-vitamin D3 (Calcium 600 with Vitamin D3) 600 mg-10 mcg (400 unit) tablet,chewable, Chew 1 tablet daily., Past Month cholecalciferol, vitamin D3, 25 mcg (1,000 Unit) tablet, Take 50 mcg by mouth daily., Past Week cyanocobalamin, vitamin B-12, 1,000 mcg capsule, Take 1 tablet by mouth daily., Past Week escitalopram (LEXAPRO) 10 mg tablet, Take 20 mg by mouth daily., 04/02/2023 hydroCHLOROthiazide (HYDRODIURIL) 25 mg tablet, Take 25 mg by mouth daily., 04/02/2023 omeprazole (PriLOSEC) [address] capsule, Take 20 mg by mouth every morning before breakfast., 04/01/2023 carbidopa-levodopa (Sinemet) 25-100 mg per tablet, Take 0.5 tab 3 times daily for 1 week. Then increase by 0.5 tab 3 times daily weekly per med schedule to max 3 tabs 3 times daily. donepeziL (ARICEPT) 10 mg tablet, Take one half tablet daily for 2 weeks. Then have EKG (heart rhythm testing completed) If EKG testing is normal, then increase to 1 tablet daily. dorzolamide-timoloL (COSOPT) 22.3-6.8 mg/mL ophthalmic solution, Administer 1 drop into both eyes 2(two) times a day. hydroquinone 4 % cream, Apply 1 Application topically 2 (two) times a day. Apply to the dark spots on the face for 2 months. Take a break for a month and use for additional 2 months if needed. ibuprofen (ADVIL,MOTRIN) 200 mg tablet, Take 400 mg by mouth 2 (two) times a day. ketorolac (ACULAR) 0.4 % ophthalmic solution, Administer 1 drop into both eyes 2 (two) times a day. OBJECTIVE VITAL SIGNS Temperature: [36.6 ??C] 36.6 ??C Blood Pressure: (163)/(88) 163/88 SpO2: [93 %-94 %] 93 % Pulse Rate: [68-73] 69 PHYSICAL EXAM General: Alert, interactive, not acutely ill. Skin: No rashes or lesions. Eyes: Pupils equal and round. Sclera anicteric. ENT: Hearing grossly intact. Dentition intact. No oral or pharyngeal erythema or lesions noted. Lungs: Clear to auscultation. No wheezes or crackles. Heart: Regular rate and rhythm. No murmurs appreciated. No lower extremity edema. Abdomen: Soft, bowel sounds present. Tender to deep palpation in left upper and lower quadrants. Norigidity or guarding. Neuro: Cranial nerves II-XII grossly intact. No focal neurologic deficits. Mental: Alert, easily engaged. Occasionally responds to questions with tangential answers. DIAGNOSTICS I have reviewed the labs and diagnostics from admission. ASSESSMENT / PLAN Ms. Colon is hospitalized on [place] [id number] ([facility]) for evaluation and management of progressive weakness and confusion. Medical comorbidities include history of mild cognitive impairment, breast cancer (treated with lumpectomy and sentinel node dissection, hypofractionated whole breast radiation, anastrozole, tamoxifen), non-melanoma skin cancer, anxiety, depression, osteopenia, and GERD. At thistime, I suspect that her hypercalcemia is most likely a result of dehydration, supplementation fromvitamin D/calcium, and concurrent hydrochlorothiazide use. However, other differentials include primary hyperparathyroidism, hypercalcemia of malignancy, sarcoidosis, among others. At this time, we will treat with aggressive fluid resuscitation, electrolyte monitoring, and perform laboratory evaluation to further evaluate underlying etiology. As for her thrombocytopenia, this has been worked up by Oncology in the outpatient setting, with a most recent visit 01/2023. We will obtain ultrasound of the liver and spleen, infectious serologies,and continue to monitor with daily CBC. # Generalized weakness # Altered mental status # Hypercalcemia # Hypokalemia - received 1L normal saline in the ED; will give an additional liter LR and continue to evaluate ongoing IVF needs - hold home calcium, vitamin D supplementation, and hydrochlorothiazide given hypercalcemia and hypokalemia - obtain repeat calcium, vitamin D, PTH, phosphorus, albumin, CMP, Mag, peripheral smear, reticulocytes - obtain EKG - SPEP/UPEP # Gait instability # History of mild cognitive impairment - PT/OT evaluation given worsening functional status and recent falls # Nausea/vomiting - Given prolonged QTc, will administer prn olanzapine 2.5mg sublingual - Avoid QT prolonging antiemetics # Prolonged QTc - Avoid QT prolonging agents including ondansetron - Electrolyte monitoring and repletion # Thrombocytopenia - This has been worked up in the outpatient setting, most recent visit 01/2023. - Will continue to monitor with daily CBC - Obtain ultrasound of liver/spleen to evaluate splenomegaly - Obtain Histoplasma and blastomyces antigen, HIV, Hep C, CMP # Anxiety # Depression - Continue home bupropion and escitalopram # GERD - continue home PPI # Glaucoma - continue home timolol, brimonidine eye drops # History of breast cancer - Family reports patient is not currently on hormone therapy due to side effects. She is monitored with mammogram, most recently 07/14/2022 without evidence of recurrence Baseline Mobility: BMAT Level 3 (Able to stand but cannot take steps without help) Diet: general diet Tubes/lines: PIV and [place] VTE prophylaxis: heparin Code status: DNR Surrogate Decision Maker: Spouse, Philippe Disposition: Uncertain NT REPRESENTATIVE documented in this encounter Procedure Notes * Brandon Awad R.N. - 04/09/2023 10:03 AM CSTAssociated Order(s): Fat Aspirate Post-Procedure Diagnose(s): Weakness General Fat Aspirate Performed by: Brandon Awad R.N. Authorized by: Ward Venegas M.D. Care team members present 1. Rhoda Zambrano PROCEDURE DETAILS Procedure: Fat aspirate Fat aspirate Location: Left abdominal wall Needle size (gauge): 18 # Slides obtained: 4 Aspirate volume (mL): 0.5 CONSENT Consent obtained: written (Risks, benefits and [...] utilized as applicable for the procedure.: yes Site preparation: alcohol SEDATION / ANESTHESIA Anesthesia method: local infiltration Local infiltrate type: lidocaine POST-PROCEDURE DETAILS Procedure completed successfully: yes Procedure tolorated: Well Post procedure pain scale: 0/10 Complications: no apparent complications Post-procedure instructions: Post-procedure activity instructions provided COMMENTS Lidocaine 1% 1ml given Sq to the Left hip.. NT REPRESENTATIVE * Weston Ren R.N. - 04/06/2023 9:40 AM CSTAssociated Order(s): Biopsy Bone Marrow, Sedated Post-Procedure Diagnose(s): Hypercalcemia; Weakness General Biopsy Bone Marrow, Sedated Performed by: Weston Ren R.N. Authorized by: Javier Romero M.D. Care team members present 1. Weston Ren R.N. 2. Rhoda Zambrano PROCEDURE DETAILS Procedure: Bone Marrow biopsy and Bone Marrow aspiration Bone marrow biopsy Laterality: Right Location of biopsy: Posterior iliac crest Patient position: Side lying Type of Needle: Manual bone marrow biopsy needle Findings: Aspirate obtained with spicules noted and slides obtained Bone marrow aspiration Aspirate volume (mL): 18 CONSENT Consent obtained: written (Risks, benefits and [...] utilized as applicable for the procedure.: yes Site preparation: chlorhexidine SEDATION / ANESTHESIA Anesthesia method: local infiltration Local infiltrate type: lidocaine POST-PROCEDURE DETAILS Procedure completed successfully: yes Complications: no apparent complications Post-procedure instructions: Post-procedure activity instructions provided COMMENTS Two attempts/biopsy. Lidocaine 1% 100 mg. NT REPRESENTATIVE documented in this encounter Consult Notes * Milana Zamora M.S., [facility]-[employer]LECTRICAL HELPER - 04/13/2023 2:30 PM CST Speech Language Pathology Dysphagia and Communication/Cognitive Evaluation- Acute Care Session Type: Evaluation Length of session: 20 minutes Time of Dysphagia Session: 1430 SUBJECTIVE Referred By: [facility]ST Hematology 1 History: Ms. Colon is a 82 y.o. female with medical history significant for mild cognitive impairment, parkinsonism, breast cancer, skin cancer, depression/anxiety, migraines, and GERD. She presented to [facility] on 04/02/23 with complaints of generalized weakness, confusion, nausea, vomiting, and reduced oral intake. Work-up revealed mild pancytopenia, hypercalcemia, and hypokalemia. She had extensive neurologywork up for encephalopathy that has overall been unrevealing. 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 She was transferred to [facility] [facility] on 04[facility]12[facility]23 to initiate treatment with rituximab. Speech-Language Pathology is consulted to assess communication and swallowing. Ms. Colon's family report that she has had difficulty with oral intake since early February. They state that primary concerns have been nausea and vomiting, which understandably have resulted in poorappetite. They share that her swallow function is normal at baseline, and has been unremarkable until about 2 weeks ago when overall her health sharply declined. Ms. Colon reports occasional coughing with oral intake. She endorses dysgeusia and early satiety. She has been receiving tube feedings via NGT to achieve adequate nutritional intake. Occupational Therapy followed Ms. Colon at the [facility]. Primary team triaged dysphagia care to Speech-Language Pathology at the time of her transfer to [facility]. Last OT dysphagia therapy session was 04/09 at which time she demonstrated tolerance of Soft and bite-sized solids (IDDSI level 6) and Thin liquid (IDDSI level 0) without overt difficulty. Further treatment was recommended. In regards to communication, Ms. Colon's family report concerns regarding her cognition, which hasfluctuated along with her medical status over the course of her hospitalization. We did not discussthese concerns in depth during this interaction, as they are hopeful that initiation of rituximab will alleviate some of the acute cognitive difficulties, at which time she would be better able to meaningfully participate. General Family/Caregiver Present: Yes Arousal/Alertness: Delayed responses to stimuli Behavior: Cooperative, Lethargic, Requires cueing Pain No signs of pain were reported or observed. OBJECTIVE Objective Session Data Oral Motor Dentition: Adequate Facial Symmetry: (0) Within Normal Limits Labial Structure and Function: Impaired Labial Strength Left: (-2) Moderate Labial Strength Right: (-2) Moderate Lingual Structure and Function: Within Normal Limits (WNL) Palatal Structure and Function: Within Normal Limits (WNL) Mandible Strength and Function: Within Normal Limits (WNL) Motor Speech Voice: Impaired Reduced Loudness: (-2) Moderate Articulation: Within Normal Limits (WNL) Rate and Prosody: Within Normal Limits (WNL) Intelligibility: Intelligible Auditory Comprehension Yes/No Questions: Within Normal Limits (WNL) Commands: Within Normal Limits (WNL) Conversation Comprehension: Within Normal Limits (WNL) Verbal Expression Primary Mode of Expression: Verbal Primary Language: Sammarinese Confrontation Naming: Within Normal Limits (WNL) Open Ended Questions: 100% accuracy Conversation: Within Normal Limits (WNL) Cognition Overall Cognitive Status: Impaired Attention: Impaired Memory: Impaired Following Commands: Follows one step commands with increased time, Follows two step commands with increased time Problem Solving: Impaired Executive Functioning: Impaired Consistencies Assessed: Level 0 Thin Number of Trials Given: 8 Oral: Within Normal Limits (WNL) Pharyngeal: Within Normal Limits (WNL) Level 4 Puree Number of Trials Given: 2 Oral: Within Normal Limits (WNL) Pharyngeal: Within Normal Limits (WNL) Assessment Dysphagia: Ms. Colon is seen for a clinical swallow evaluation. Oral motor exam is remarkable for bilateral labial weakness in the setting of general debility. Voice is hypophonic. Ms. Colon is evaluated with trials of thin liquid, and puree consistency. Regular solid is deferred due to her nausea. Oral containment was adequate. Observations of the pharyngeal phase indicate a coordinated swallow. No signs of aspiration were detected with any consistency. One swallow per bolus occurs, suggesting efficient pharyngeal clearance. Vocal quality was clear following all trials. Ms. Colon reports dysgeusia with the applesauce. Overall, Ms. Colon presents with an oropharyngeal swallow within functional limits. We discuss options for oral diet while in the hospital. She indicates preference to continue with Soft and bite-sized solids (IDDSI level 6) and Thin liquid (IDDSI level 0) as this is more tolerable to her from a nausea standpoint than other items. She does not feel too restricted with menu options at this time, but she is encouraged to let staff know if she would like to try more advanced solids. AUTOMOTIVE ELECTRICAL HELPER will continue to follow. Cognition/communication: Ms. 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 Speech production is of normal rate, rhythm, and articulatory precision. Conversational intelligibility is 100% when background noise is reduced. Verbal expression is minimal, but logical and grammatical. No semantic errors are appreciated. Ms. Colon is fully oriented, and demonstrates adequate understanding of discourse. She follows directions with extra time. She responds appropriately to questions when provided repetition and extra time. Overall, Ms. Colon is presenting below her baseline level of functioning. While direct therapy services addressing cognitive-communication are not currently indicated secondary to her acute illness,AUTOMOTIVE ELECTRICAL HELPER will plan to monitor and initiate further assessment/treatment when Ms. Colon is able to meaningfully participate. Goals: Dysphagia Supervisor Multifocal Lens Goal Dysphagia Supervisor Multifocal Lens Goal: Patient will tolerate least restrictive diet without overt s/s suggestiveof aspiration Dysphagia Supervisor Multifocal Lens Goal Progress Toward Goal: Progress toward goal completion: continue on target Cognition Short Term Goal 1 Cognition Short Term Goal 1: Patient will participate in ongoing cognitive- communication assessmentas appropriate. Cognition Short Term Goal 1 Progress Toward Goal: Progress toward goal completion: continue on target Diagnosis: Impressions Dysphagia Consistent with a diagnosis of:: Within Functional Limits (WFL) Plan DYSPHAGIA RECOMMENDATIONS: Diet Recommendation-Solids: IDDSI Level 6 Soft & Bite-Sized Diet Recommendation-Liquids: IDDSI Level 0 Thin Medication Recommendation: Whole, With liquid Safety Precautions: Upright and alert during meals Small bites/sips Alternate solids and liquids Maintain excellent oral hygiene AUTOMOTIVE ELECTRICAL HELPER to continue to follow. Please page our team with questions/concerns regarding this plan of care: [phone] on weekdays or [phone] on weekends/holidays AUTOMOTIVE ELECTRICAL HELPER Ongoing Services: Ongoing formal Speech Pathology services Duration of Treatment: Until goals met Rehab Potential: Fair Speech Pathology Service Pager: Dysphagia [phone] Speech Pathology Service Pager: Communication [phone] NT REPRESENTATIVE * Jessica Darnell M.S., RDN, LD - 04/13/2023 11:01 AM CSTAssociated Order(s): IP CONSULT TO DIETITIAN Nutrition Care Plan Follow Up Clinical Nutrition continues to follow patient for tube feeding recommendations/management ASSESSMENT Current Nutrition (since admission): Patient was started on continuous TF on 04/06 due to poor oral intake. On 04/09, patient was transitioned to a bolus feeding schedule. She has received the followingover the last 4 days: 04/09: dinner feed 125 mL 04/10: 250 mL TID 04/11: goal 250-500-250 04/12: 250-500-125 - evening feed decreased due to emesis Completed visit with patient's nurses as patient sleeping on first attempt, and having emesis on second attempt. Pt received first feed of 125 mL this morning, and was advanced to 250 mL around this late morning. Patient began having emesis while working with PT. Plan to hold tube feeds until emesis subsides, and resume feedings with continuous regimen. Notably, patient has not had a BM since 04/09 and has not received Senokot sine 04/04, and has not received MiraLax in the last 10 days. Did note that last dose of Imodium was given on 04/12 at 0830. Strongly recommend administering laxative or stool softener to promote BM. Patient also with splenomegaly and therefore, this could be contributing to TF intolerance. Results for the past 120 hrs: 24 Hr Total Calorie Intake 04/12/23 2359 226 04/10/23 2359 61 04/09/23 2359 313 04/08/23 2359 362 Results for the past 120 hrs: 24 Hr Total Protein Intake 04/12/23 2359 2 04/10/23 2359 1 04/09/23 2359 9 04/08/23 2359 9 Current nutrition orders: Current Diet Tube feeding with oral diet -Nutren 1.5 (RTH); Feeding route: Nasogastric; Feed options: Continuous; Starting rate (ml/hr): 20 mL/hr; Rate advancement (ml/hrs): 10 mL q 8 hours; Continuous goal rate (ml/hr): 40 mL/hr; Daily goal volume (mL): 960 m... starting at 04/13 1200 Adult Diet Dysphagia; Thin (TN0); Soft and Bite-Sized (SB6) starting at 04/07 1045 GI Function: Last BM Date: 04/09/23, Cache Stool Chart: Type 4: Like a sausage or snake, smooth and soft, Passing Flatus: No Medications: allopurinoL brimonidine buPROPion dorzolamide-timoloL escitalopram heparin (porcine) ketorolac pantoprazole pyridoxine (vitamin B6) thiamine Continuous Meds: NaCl 0.9% infusion, 100 mL/hr, Last Rate: 100 mL/hr (04/13/23 4389) Pertinent Labs: Last 3 results Lab Units 04/13/23 0607 04/12/23 1803 04/12/23 1241 SODIUM mmol/L 144 143 141 POTASSIUM mmol/L 4.1 4.4 4.0 CHLORIDE mmol/L 107 104 104 BUN mg/dL 24* 28* 26* CREATININE mg/dL 1.30* 1.41* 1.35* PHOSPHORUS INORGANIC mg/dL 3.5 3.9 3.6 CALCIUM mg/dL 10.9* 11.9* 11.7* MAGNESIUM mg/dL 2.0 -- -- Latest Reference Range & Units 04/02/23 16:14 04/04/23 08:27 04/04/23 08:28 04/05/23 15:41 04/05/23 15:42 04/05/23 15:43 04/05/23 15:44 25-Hydroxy D2 ng/mL <4.0 25-Hydroxy D3 ng/mL 69 25-Hydroxy D Total ng/mL 69 Folate, S >=4.0 mcg/L 8.9 9.0 A-Tocopherol, Vitamin E 5.5 - 17.0 mg/L 11.9 Pyridoxic Acid (PA), P 3 - 30 mcg/L <2 (L) Vitamin B12 Assay, S 180 - 914 ng/L 1300 (H) Nicotinic Acid (Niacin) Cutoff:<5.0 ng/mL <5.0 Nicotinamide 5.0 - 48.0 ng/mL 11.3 Nicotinuric Acid Cutoff:<5.0 ng/mL <5.0 Thiamine (Vitamin B1), WB 70 - 180 nmol/L 56 (L) Pyridoxal 5-Phosphate (PLP), P 5 - 50 mcg/L <2 (L) Ascorbic Acid, P 0.4 - 2.0 mg/dL 0.6 Riboflavin (Vitamin B2), P 1 - 19 mcg/L 30 (H) (L): Data is abnormally low (H): Data is abnormally high Weight since admission: Height: 149.9 cm Admission Weight: 54 kg (04/02/2023) Current Weight: 54.5 kg BMI (Calculated): 24.3 kg/m?? Weight change since admission: 0.5 kg Net IO Since Admission: 5,966.67 mL [04/13/23 1133] Estimated Needs: Total Calorie Needs: 8576-5091 calories/day Method to Estimate Energy Needs: kcal/kg (25-30 kcal/kg) Weight Used for Equation Calculations: 54 kg Total Protein Needs: 54 - 65 grams/day Method to Estimate Protein Needs (g/kg): 1 - 1.2 gm/kg Weight Used to Calculate Protein Needs (Kg): 54 kg Total Fluid Needs: 1350 - 1620 grams/day Method to Estimate Fluid Needs (mL/kg): 25-30 mL/kg Weight Used to Calculate Fluid Needs (Kg): 54 kg Nutrition Diagnosis: Inadequate protein-energy intake related to decreased appetite/ NV as evidenced by Family reported intake and >5% wt loss in 1 m Nutrition Diagnosis Reassessment: Ongoing PLAN Nutrition Intervention: Medical food supplement, Increase nutrient intake with small, frequent meals and/or snacks, Assess oral intake with calorie count Nutrition parameter to monitor: Meals/Supplement Intake, Weight Status, Nausea/Vomiting/Diarrhea, Wound Healing ASPEN Criteria Malnutrition Status: Severe Malnutrition Recommendations: Oral diet per PTO-Dysphagia Continue supplementing with Magic Cup. Switch to continuous tube feeding: Formula: Nutren 1.5 Regimen: 20 mL advancing 10 mL q 8 hours to goal of 40 mL/hr Flushes: Minimum 30 mL q 6 hours (QID) Currently receiving IV fluids, will monitor for ability to hydrate via enteral route. Vitamin/minerals: Regimen meets 96% of RDIs Regimen at goal provides 960 mL formula, 1440 kcal, 65 g protein, 850 mL free water (730 mL from formula, 120 mL from patency flushes) Will monitor for need for long-term enteral nutrition support. Clinical Nutrition will continue to follow. For questions about patient's nutritional care please contact pager [phone] on weekdays 07:30-16:00 or [phone] on weekends/holidays. NT REPRESENTATIVE * Mely Bhandari M.S.N., R.N. - 04/12/2023 10:03 AM CSTAssociated Order(s): IP CONSULT TO CARE MANAGEMENT Images from the original note were not included. SUBJECTIVE The adult protective caseworker called the patient's to follow up on discharge plan with the possibility of expanding SNF referrals. Patient shared that they are unable to make any further dischargeplan at this time because the patient is at the process of being transfer to [facility] for Rituximab initiation. He said he would request for care management after the patient is settled done at [facility] and when they have more information about the patient's treatment and discharge goal. Destination - Admitted Since 04/02/2023 Service Provider Request Status Selected Services Address Phone Fax Patient [facility] Pending - Request Sent N/A [id number] [facility] [phone] -- [facility] Pending - Request Sent N/A [id number] [facility] [phone] -- [facility] Pending - Request Sent N/A [id number] [id number] -- [facility] Pending - Request Sent N/A [id number] [facility] [phone] -- [facility] Declined No memory care beds open N/A [address] [facility] [address] [phone] [facility] Declined Bed not available N/A [address] [facility] [address] [phone] [facility] Declined Bed not available N/A [address] [place] [id number] -- OBJECTIVE Patient is in DO 3 D Room 344 ASSESSMENT / PLAN ASSESSMENT The Person(s) Present During Interview: spouse appear to have insight into the patient's needs at this time and are planning appropriately for discharge needs. He report agreement with the below planwith no further questions at this time. PLAN 1) The patient will transfer to [facility] for Rituximab initiation 2) Care management will continue to follow with discharge needs. Jeremy Cage., R.N. 04/12/23 NT REPRESENTATIVE * Marialuisa Steward M.S., RDN, LD - 04/09/2023 3:00 PM CSTAssociated Order(s): IP CONSULT TO DIETITIAN Nutrition Care Plan Follow Up Clinical Nutrition continues to follow patient for tube feeding recommendations/management and oralintake encouragement ASSESSMENT Completed visit with patient and family today as part of face to face care. Current Nutrition (since admission): 4 bowel movements documented yesterday 04/08; otherwise had 1 on 04/07. Patient endorsed tolerating the tube feeding, denied other GI symptoms. Patient and family amenable to trial bolus feedings as patient has been tolerating continuous and electrolytes appear stable 04/08 and 04/09. Plan communicated to service and nursing. Patient amenable to continue receivingMagic Cup supplement. Results for the past 120 hrs: 24 Hr Total Calorie Intake 04/08/23 2359 362 04/07/23 2359 0 04/06/23 2359 113 04/05/23 235 145 04/04/23 235 73 Results for the past 120 hrs: 24 Hr Total Protein Intake 04/08/23 2359 9 04/07/23 2359 0 04/06/23 2359 2 04/05/23 2359 4 04/04/23 235 2 Current nutrition orders: Current Diet Adult Diet Dysphagia; Thin (TN0); Soft and Bite-Sized (SB6) starting at 04/07 1045 Tube feeding with oral diet -Nutren 1.5 (RTH); Feeding route: Nasogastric; Feed options: Continuous; Starting rate (ml/hr): 20 mL/hr; Rate advancement (ml/hrs): 10 mL/hr every 12 hours; Continuous goal rate (ml/hr): 40 mL/hr; Daily goal volume (mL... starting at 04/06 1401 GI Function: Last BM Date: 03/29/23, Cache Stool Chart: Type 5: Soft blobs with clear-cut edges, Passing Flatus: No Weight since admission: Height: 149.9 cm Admission Weight: 54 kg (04/02/2023) Current Weight: 56.5 kg BMI (Calculated): 25.1 kg/m?? Weight change since admission: 2.5 kg Net IO Since Admission: 4,993.33 mL [04/09/23 1505] Estimated Needs: Total Calorie Needs: 3548-0953 calories/day Method to Estimate Energy Needs: kcal/kg (25-30 kcal/kg) Weight Used for Equation Calculations: 54 kg Total Protein Needs: 54 - 65 grams/day Method to Estimate Protein Needs (g/kg): 1 - 1.2 gm/kg Weight Used to Calculate Protein Needs (Kg): 54 kg Nutrition Diagnosis: Inadequate protein-energy intake related to decreased appetite/ NV as evidenced by Family reported intake and >5% wt loss in 1 m Nutrition Diagnosis Reassessment: Ongoing PLAN Nutrition Intervention: Medical food supplement, Increase nutrient intake with small, frequent meals and/or snacks, Assess oral intake with calorie count Nutrition parameter to monitor: Meals/Supplement Intake, Weight Status, Nausea/Vomiting/Diarrhea, Wound Healing ASPEN Criteria Malnutrition Status: Severe Malnutrition Recommendations: Oral diet per PTO-Dysphagia Switch to bolus tube feeding: Formula: Nutren 1.5 Regimen: Provided over 1 hour as tolerated: Day 1 (04/09): Dinner feed of 125 mL Day 2 (04/10): 250 mL TID Day 3 (04/11): Goal of 250-500-250 mL Flushes: Minimum 30 mL before and after each bolus. Additional flushes for hydration per primary service. To meet 1 mL/kcal fluid needs, would require additional 5 x 120 mL flushes Vitamin / minerals: Regimen meets 100% of RDIs Modulars: Continue Isamar flakes TID Regimen at goal provides 1000 mL formula, 1500 kcal, 68 g protein, 940 mL free water (760 mL from formula, 180 mL from patency flushes) Once patient is on goal bolus regimen, can transition to tube feeding based on meal intakes Clinical Nutrition will continue to follow. For questions about patient's nutritional care please contact pager [phone] on weekdays 07:30-16:00 or [phone] on weekends/holidays. NT REPRESENTATIVE * Becka Saenz O.T., O.TIndu, [facility] - 04/07/2023 9:37 AM CST Occupational Therapy Dysphagia Evaluation/Treatment SUBJECTIVE Patient's Name: Darcy Colon Referring/Attending Provider: Darrell Zabala M.D. Medical Diagnosis: Hypercalcemia [E83.52] Hypokalemia [E87.6] Weakness General [R53.1] Reason for Referral: Reason for Referral: OT dysphagia Onset Date: 04/02/23 Payor: MEDICARE / Plan: MEDICARE A AND B / Product Type: Medicare / PERTINENT MEDICAL / SURGICAL HISTORY: Patient Active Problem List Diagnosis Parkinsonism Unspecified (HCC) Unspecified Dementia Unspecified Severity Without Behavioral Disturbance Psychotic disturbance MoodDisturbance And Anxiety (HCC) Abnormal Gait Non Orthopedic Weakness General Dehydration Encephalopathy Hypercalcemia Hypokalemia Malnutrition Protein-Calorie Unspecified (HCC) Past Surgical History: Procedure Laterality Date BREAST BIOPSY BREAST LUMPECTOMY HYSTERECTOMY 2009 ?? JOINT REPLACEMENT 2019 MOHS SURGERY TONSILLECTOMY 1943 History of Present Illness:History of Present Illness: Per medical record, Ms. Colon is hospitalized on [facility] ([facility]) for evaluation and management of progressive weakness and confusion. Medical comorbidities include history of mild cognitive impairment, breast cancer in remission, non-melanoma skin cancer, anxiety, depression, osteopenia, and GERD. OT dysphagia consulted to assess safety with oral intake. Per medical record, she has been having episodes of nausea/gagging when food touches her tongue. Nursing reports she pocketed her pills when attempting to take them whole and theynoticed liquid running out of her mouth following sips of liquid. Family/Caregiver Present: No Patient/Caregiver Goals: no goals stated Patient Comments: Patient reports she has been better when asked how she is doing. She denies pain. Precautions Other Precautions: Fall, cog, aspiration OBJECTIVE Respiratory function: Room air Baseline Assessment: Mental Status: Alert Dysphagia: Mild to moderate oral stage dysphagia Temperature Spikes Noted: No Respiratory Status: Room air Tracheostomy: No History of Intubation: No Current Nutrition Method: Oral Current Diet Liquid: IDDSI Level 0 Thin Current Diet: IDDSI Level 7 Regular Current Med Administration: Crushed in puree Diet Restrictions: no known allergies Patient Positioning: Upright in bed Baseline Vocal Quality: Weak Volitional Swallow: Within Normal Limits (WNL) Clinical Dysphagia: Oral / Motor Dentition: Some missing teeth, Adequate Labial ROM: Within Normal Limits (WNL) Labial Symmetry: Within Normal Limits (WNL) Labial Strength: Impaired Labial Strength Left: Moderate (unable to maintain lip seal against resistance) Labial Strength Right: Moderate (unable to maintain lip seal against resistance) Lingual ROM: Impaired Lingual Lateralization Left: (-2) Moderate Lingual Lateralization Right: (-2) Moderate Lingual Protrusion: (-1) Mild Velum: (0) Within Normal Limits (WNL) Mandible Strength: (0) Within Normal Limts Facial Symmetry: (0) Within Normal Limits Facial Sensation: difficulty to assess due to current cognitive status, she was able to identify location of light touch 2/4 trials Clinical Dysphagia Patient Position in Swallow Study: Other (Comment) (upright in bed) Liquids: Level 0 Thin Solids: Level 4 Puree, Level 6 Soft & Bite-Sized Level 0 Thin Presentation: (sips from straw) Airway Protection: (no overt signs of aspiration) Level 4 Puree Type of Puree Presented: Applesauce Presentation: Spoon (presented by therapist) Airway Protection: (no overt signs of aspiration, increased anterior-posterior bolus transit) Compensatory Strategies Utilized in Exam: multiple swallows Level 6 Soft & Bite-Sized Type of Solid Presented: Other (Comment) (diced peaches) Presentation: Spoon Airway Protection: (no overt signs of aspiration, increased anterior-posterior bolus transit) Compensatory Strategies Utilized in Exam: multiple swallows Functional Oral Intake Scale score: 5. Total oral intake of multiple consistencies requiring special preparation Quality of Life for Eating: Disagree Does the patient have a tracheostomy? No. Team Communication: Patient's nurse was contacted and patient's status was discussed, Primary service was contacted and patient's status was discussed Patient was left in bed at end of session with call light in reach, all needs met and questions answered. Assessment Dysphagia Consult Assessment: Time Dysphagia Assessment Completed: 9:37 am Clinical Impression: Ms. Colon participated in a clinical bedside dysphagia evaluation on 04/07/2023 to assess safety with oral intake/risks for aspiration. Factors contributing to aspiration risk include: episodes of nausea/gagging when food touches her tongue, per medical record. Nursing reports she pocketed her pills when attempting to take them whole and RN noticed liquid running out of her mouth following sips of liquid yesterday. OT dysphagia consulted to assess safety with oral intake. Dysphagia Clinical Assessment: The patient participated in a clinical dysphagia evaluation this date to assess safety with oral intake/risks for aspiration. The patient is currently on room air. Physical examination of the oral mechanism revealed facial symmetry at rest. Tracheal cartilage in midline and laryngeal rise present on palpation. Oral motor examination of the tongue and lips was noted to be impaired, with decreased tongue lateralization and inability to maintain lip seal against resistance. Velar rise was symmetric and bilateral on phonation. Patient demonstrated decreased respiratory control with prolonged vowel of 5 seconds (normal 14-20sec). Oral cares completed prior to oral intake. Patient needed assist with brushing her teeth due to decreased upper extremity coordination,decreased strength, and upper extremity tremor. Loss of bolus control noted anteriorly when patientattempted to rinse mouth with water following oral cares. The patient participated in oral trials of thin liquids, puree and soft solid consistencies resulting in no observable signs of aspiration/penetration. Nursing has been providing medications through her NG tube. Mrs. Colon reports feeling like her teeth are offset from each other and notes that she needs to swallow multiple times with bites of puree and soft solid. It appears she required the additional swallows due to oral motor weakness and likely oral residue following initial swallows. Shewould benefit from a soft food diet at this time, to assist with oral clearance. Recommend Level 6 Soft and Bite-sized (SB6) and thin liquids, with medications administered through NG tube or crushed in puree. She will need assistance with feeding and should be fully upright (preferably in chair) for all oral intake. OT dysphagia will continue to monitor safety with oral intake. Patient is below their functional baseline with swallowing function and skilled dysphagia services are medically necessary for this patient to safely progress oral intake. DIET RECOMMENDATIONS: Diet Recommendations - Solids: IDDSI Level 6 Soft & Bite-Sized Diet Recommendations - Liquids: IDDSI Level 0 Thin Recommended Form of Meds: Crushed (per physician/pharmacy approval), With puree, Feeding tube Transitional foods allowed: yes Recommendations: Dysphagia treatment Recommended Aspiration Precautions: Recommended Aspiration Precautions: Sit upright with all oral intake and when completing oral cares, Eat small bites, take small sips, eat slowly, Good oral care 3-5 times a day, Avoid lying down for30 minutes after meals Recommended Compensation Techniques/Adaptive Equipment: Recommended Compensation Techniques/Adaptive Equipment: Requires supervision/assistance, Alternate solid food with small amounts of liquids Positioning Recommendations: Upright as possible for all oral intake, Remain upright for 30-60 minutes after meals Recommendations for safe oral cares are as follows: -assist needed with regular toothbrush/toothpaste Rehab potential: Ms. Colon has good potential to achieve established occupational therapy goals within the time frame outlined below. Functional Goals and timeframes: Goal #1: Patient will be able to tolerate least restrictive diet with no overt signs of aspiration. Goal #2: Patient and/or caregiver will verbalize understanding of at least 3 aspiration precautions. Plan Dysphagia Consult Plan: Patient agrees with the plan of care and goals. Treatment Interventions: Swallow dysfunction treatment OT Dysphagia Duration: Until goals are met or hospital duration OT Dysphagia Amount: 1 visit per day OT Dysphagia Frequency: 3 times per week Inpatient OT Dysphagia Received On Date: 04/07/23 OT - Next Inpatient Dysphagia Appointment: 04/09/23 Plan: Plan of care initiated Plan Comments: next session: meal obs, assess readiness for diet upgrade Re-evaluate: As clinically indicated Treatment interventions may include: Plan for Next Session: Observe a meal, Educate patient and/or caregiver on aspiration precautions, Assess readiness for diet upgrade Time Spent with Patient Evaluations Clinical Dysphagia Evaluation (min): 28 min Time Tracking Total Treatment Time (min): 28 min For any questions feel free to page OT dysphagia Sunday through Sunday 7:00am to 4:00pm: Our service pager at [facility] ([place]): #[phone] Our service pager at [facility]: #[phone] NT REPRESENTATIVE * Jess Alcantara RDN, ZOYA, M.P.H. - 04/06/2023 3:27 PM CSTAssociated Order(s): IP CONSULT TO DIETITIAN DESCRIPTION Tube Feeding ASSESSMENT Noted enteral nutrition consult. NG tube was placed. GI Tubes (Adults) Nasogastric 10 Fr Nare;Right (Active) Placement Date/Time: 04/06/231516 GI Tube Type: Nasogastric GI Tube Size: 10 Fr Length (cm): 50 cmTube Location: Nare;Right PLAN monitor / replace potassium, magnesium, and phosphorus due to refeeding risk Start enteral nutrition: Formula: Nutren 1.5 Regimen: Standard initiation and advancement to goal of 40 mL/hr Flushes: Minimum 30 mL, 4 times daily for tube patency. Additional flushes for hydration per primary service. To meet 1 mL/kcal fluid needs, would require 5 x 120 mL flushes Vitamin / mineral supplement: Continue Therapeutic-M, as regimen at goal meets fewer than 100% of RDIs Regimen at goal provides 960 mL formula, 1440 kcal, 65 g protein, 850 mL free water (730 mL from formula, 120 mL from patency flushes) For questions about patient's nutritional care please contact pager [phone] on weekdays or [phone] on weekends/holidays. NT REPRESENTATIVE * Dheeraj Gee M.D. - 04/05/2023 4:39 PM CST I saw and evaluated the patient, participating in the jorge portions of the service. I reviewed the resident/fellow???s note. I agree with the resident/fellow???s findings and plan. Dheeraj Gee M.D. 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 She continues to undergo an extensive systemic evaluation, including evaluation for potential occult malignancy given the unintentional weight loss and hypercalcemia Of note, in discussion with her family it seems that she has had progressive encephalopathy and what seems to be incoordination of motor function over the last 1-2 months, further worsened by recent COVID-19 infection approximately 1 month ago. On examination, she has encephalopathy most notably affecting the domain of attention. She has quite severe macroglossia with tongue fissuring. She has very subtle/mild quadriparesis in an upper motor neuron pattern with generalized hyper reflexia, a cross adductor response at the right patella, and upgoing toe on the right side, and bilateral Sara signs. She also has notable proprioceptive loss in distal upper and lower limbs. 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 We would recommend obtaining: - MRI cervical and thoracic spine with and without contrast - EMG/NCS - serum studies to be sent for vitamin B12, MMA, thiamine, riboflavin, niacin, folate, copper, zinc, vitamin-E, vitamin-C, syphilis serology, HIV serology, and PATIENT REGISTRATION REP demyelinating disease panel. - would empirically start on multivitamin and aggressive thiamine repletion with IV thiamine 500 mgt.i.d. for 2 days followed by 250 mg once daily x5 days, followed by 100 mg orally indefinitely. Remainder as per the resident's note below. We will continue to follow. Severe Malnutrition The patient meets the ASPEN Criteria of malnutrition based on: Energy Intake: Less than or equal to 75% of estimated energy requirement for greater than or equal to 1 month Interpretation of Weight Loss: greater than 5% 1 month Body Fat: Mild Loss Muscle Mass: Mild Loss This is in the context of Chronic Illness. Malnutrition Present Upon Admission: Yes Agree with Registered Dietitian's assessment and treatment plan: Interventions: Medical food supplement, Increase nutrient intake with small, frequent meals and/or snacks, Assess oral intake with calorie count NT REPRESENTATIVE * Keely Aguirre M.D. - 04/05/2023 1:22 PM CSTAssociated Order(s): IP CONSULT TO HEMATOLOGY HEMATOLOGY CONSULT NOTE Admit Date: 04/02/2023 LOS: 3 days SUBJECTIVE PATIENT SUMMARY Ms. Darcy Colon is a 82 y.o. female with a history of mild cognitive impairment followed by Neurology, breast cancer 2017s/p lumpectomy and radiation, nonmelanoma skin cancer, osteopenia, B12 deficiency on supplementation, and GERD who was admitted to the medicine service for hypercalcemia inthe setting of failure to thrive. REFERRAL RST Medicine 2 ([facility]) REASON FOR CONSULT New pancytopenia and splenomegaly with hypercalcemia HISTORY OF PRESENT ILLNESS Her family notes that she has had a progressive decline since January of 2023. Prior to this, she was essentially independent in her ADLs and IADLs.She went to the ED for a COVID infection in February and again soon after where she was found to have diverticulitis and put on antibiotics. She had another ED visit couple of days after due to nausea and vomiting thought to be related to the antibiotics. This past week she had a ground level fall with unclear prodromal symptoms. Her notes that she has had little to no appetite in the last couple weeks and her oral intake is extremely low.He notes that she has been especially drowsy today. On arrival her corrected calcium was 14.4 and PTH was appropriately suppressed. PTHrP is pending. SPEP showed a small abnormality in the IgM kappa population and the UPEP showed a small abnormality in the gamma fraction. Creatinine has varied from 1.02 to 1.21 but her baseline is unclear. She was given 5 L of LR with improvement in her calcium. Also on arrival, her hemoglobin was 11.6, platelets were 69, and leukocytes were 4.4. Smear did notshow any platelet clumping or schistocytes. Reticulocyte index on admission was hypoproliferative at 1.7. Following the administration of fluids, her hemoglobin has downtrended to around 9, plateletshave remained low in the 60s, and leukocytes have downtrended to 2-3. Values from 2016 show normal cell counts. B12 and folate were checked this admission and were supratherapeutic and normal respectively. REVIEW OF SYSTEMS Negative outside of what is mentioned in the HPI OBJECTIVE VITAL SIGNS BP 150/80 (BP Location: Left arm;Upper, Patient Position: Lying) Pulse 81 Temp 36.9 ??C (Oral) Resp 17 Ht 149.9 cm Wt 54 kg SpO2 94% BMI 24.04 kg/m?? PHYSICAL EXAM General: drowsy, opens eyes to verbal stimulation but does not respond Eyes: no scleral icterus Skin: No rashes or excessive bruising Lungs: on room air Abdomen: bilateral upper quadrant fullness appreciated DIAGNOSTICS I have reviewed diagnostics. ASSESSMENT / PLAN Darcy Colon is a 82 y.o. female with a PMH of mild cognitive impairment followed by Neurology, breast cancer 2017s/p lumpectomy and radiation, nonmelanoma skin cancer, osteopenia, B12 deficiency on supplementation,and GERD who was admitted to the medicine service for hypercalcemia in the setting of failure to thrive. Her picture is suspicious for malignant involvement of the bone marrow. Wewill evaluate with a bone marrow biopsy and PET/CT. # Hypercalcemia # Failure to thrive # Pancytopenia # Hx of breast cancer s/p lumpectomy and radiation Recommendations: 1. PET/CT 2. Bone marrow biopsy 04/06 3. 24h urine monoclonal protein study 4. LDH, free light chains This case was discussed with software developer consultant Dr. Lucero who agree with the above assessment plan. Keely Aguirre M.D. 04/05/2023 1:22 PM CLIENT REPRESENTATIVE NT REPRESENTATIVE Associated attestation - Ghulam Lucero M.B.B.S., M.D. - 04/06/2023 11:37 AM CLIENT REPRESENTATIVE This is an attestation note. I saw and evaluated the patient participating in the jorge portions of the in-patient visit service. I reviewed Dr. Aguirre's note and discussed the findings and plan. * Ayala Britt M.D., M.S. - 04/05/2023 12:10 PM CSTAssociated Order(s): IP CONSULT TO NEUROLOGY NEUROLOGY CONSULT NOTE SUBJECTIVE Reason for consult: Proprioceptive loss in BUE Primary Team: Medicine 2 Neurology Supervising Support Associate: Dr. Gee HISTORY OF PRESENT ILLNESS: Ms. Darcy Colon is a 82 y.o. female with medical comorbidities significant for mild cognitiveimpairment, breast cancer (treated with lumpectomy and sentinel node dissection, hypofractionated whole breast radiation, anastrozole, tamoxifen), non-melanoma skin cancer, anxiety, depression, osteopenia, GERD, recent COVID infection in February 2023, IgM kappa gammopathy who presents for weakness and confusion. Patient has been becoming progressively more weak prior to admission, has been unable to walk independently over the last few days, and appears to have difficulties knowing where she is in space, perdiscussion with primary team. In regards to this concern, her states that this has been ongoing since January. She was found to have elevated hypercalcemia, hypomagnesemia, hypokalemia, and hypophosphatemia. Her calcium has steadily improved, but other electrolytes have remained deficient. B12 is elevated to 1300. She also has a mild anemia, hemoglobin of 11 on admission, now 9.3, which is likely dilutionaldue to fluid expansion to treat hypercalcemia. Upon our review, MRI brain did not demonstrate any acute findings and MRI cervical spine demonstrated likely compression fracture without myelopathy. Upon examination, patient is resting in bed with her eyes preferably closed. She has some degree ofinattention and requires encouragement to perform commands. Patient also was unable to answer orientation questions. Her neurologic exam is otherwise unremarkable, though. She was able to perform [id number] or effectively with eyeglasses on. Patient also has documented history of parkinsonian symptoms and was previously offered sinemet andAricept. She declined sinemet and stopped Aricept because of GI symptoms. Her and son note a rapid but progressive decline in her functional status and cognition. Review of Systems: ROS as stated in the HPI, all other systems were reviewed and are negative Medications, allergies, past medical, surgical, social, and family history were reviewed in the chart and updated as appropriate. I have reviewed the current medication list. OBJECTIVE Temperature: [36.5 ??C-37 ??C] 36.9 ??C Resp Rate: [16-18] 17 Blood Pressure: (146-155)/(69-80) 150/80 SpO2: [94 %-97 %] 94 % Pulse Rate: [73-81] 81 Physical Exam: Constitutional: well-developed, well-nourished, resting comfortably in bed Lungs: Breathing comfortably on room air. Abdomen: Soft, non-tender, non-distended. Skin: No rash on exposed skin. Cardiac: regular rate and rhythm Neurologic: Mental status: Alert and oriented to time, place and person Speech: Clear. Language: No evidence of aphasia. Cranial nerves: PERRL, EOMI, visual peters intact to confrontation, facial movements full and symmetric, sensation intact to light touch and pinprick in the V1-V3 distributions, hearing intact to voice, tongue protrudes in midline, there is equal elevation of the soft palate, shoulder shrug is appropriate in strength. Motor: Bilateral upper and lower extremity strength evaluated including: (R, L) deltoids (0,0), biceps (0,0), triceps (0,0), wrist extension (0,0), finger extension (0,0), interossei (0,0), iliopsoas(0,0), knee flexion (0,0), knee extension (0,0), ankle dorsiflexion (0,0), toe extension (0,0). Tone is normal in bilateral upper and lower extremities. Sensory: Sensation is intact to vibration, proprioception, light touch Reflexes: +1,+1 throughout, Acuña sign present bilaterally. Babinski positive on right. Coordination: Slightly impaired [id number] but improved when wearing eye glasses. Gait: Appropriate width, normal arm swing, and speed. Narrow stance. Normal step size. Normal toe, heel and tandem walking. Turns without shuffling. Diagnostics: I have reviewed the diagnostic testing through admission. ASSESSMENT / PLAN Ms. Darcy Colon is a 82 y.o. female with medical comorbidities significant for mild cognitiveimpairment, breast cancer (treated with lumpectomy and sentinel node dissection, hypofractionated whole breast radiation, anastrozole, tamoxifen), non-melanoma skin cancer, anxiety, depression, osteopenia, GERD, recent COVID infection in February 2023 who presents for weakness and confusion. Patients appears to have progressive decline in functional status and cognition in combination withspeech deficits and significant nutritional impairment. However, it is unclear what exactly is causing her neurologic deficits. Current differential diagnosis includes nutritional deficiencies, malignancy, and/or progression of underlying cognitive impairment. MRI brain and cervical spine did not show evidence of any lytic lesions, but there is a possible compression fracture in the cervical spine. In regards to a possible multiple myeloma, patient did have evidence of hypercalcemia but her anemia is likely delusional and there is no evidence of lytic lesions on cervical spine, but she does have an IgM kappa gammopathy, so obtaining MRI of thoracic spine will be helpful to further evaluate for possible multiple myeloma. Patient's cheilitis and macroglossia are also evidence of nutritional deficiency, such as B12 or B2. Her current electrolyte deficiencies may also be contributing to her persistent encephalopathy, so she would benefit from aggressive repletion of electrolytes. #1 Weakness General #2 Dehydration #3 Encephalopathy #4 Hypercalcemia #5 Hypokalemia #6 Malnutrition Protein-Calorie Unspecified (HCC) Recommendations: Obtain methylmalonic acid in case that B12 is falsely elevated Obtain thiamine, riboflavin, niacin, folate, vitamin C, vitamin E Obtain syphilis serology Obtain PATIENT REGISTRATION REP demyelinating disease panel in serum Order EMG Empiric thiamine treatment: IV 500 TID for 2 days, followed by IV 250 daily for 5 days, followed by100 mg PO indefinitely Optimize electrolyte and mineral replacement Patient seen and discussed with our software developer consultant Dr. Gee. We appreciate the consult. Please page [phone] with any questions regarding our recommendations. Ayala Britt MD, MS Internal Medicine PGY-1 Pager #[phone] NT REPRESENTATIVE * Kamran Parrish R.N. - 04/04/2023 1:04 PM CST Discharge Planning Assessment SUBJECTIVE Assessment Information Referral Source: Early Screen for Discharge Planning Referral Name: ESDP-14 Montse Martini R.N Referral Reason: Discharge Planning Primary Language: Sammarinese Person(s) present during interview: Person(s) Present During Interview: patient and spouse Philippe History of Present Illness #1 Weakness General Darcy Colon is hospitalized in [id number] Social History Marital Status: Family / Household: Lives with Caregiver Information: Caregiver Name: Philippe, son/daughter Caregiver Relationship: Spouse Finance/Insurance Primary insurance: MEDICARE A AND B Secondary insurance: MEDICA benefits: No Advance Directives Advance Directives: Advanced Care Plan Advance Directives Status: None on file OBJECTIVE Baseline Functional Status Baseline Activities of Daily Living Mobility: Requires aide of device Dressing: Needs assistance Feeding: Needs assistance Bathing: Needs assistance Grooming: Needs assistance Toileting: Needs assistance Behavior: Pleasant, Calm, Cooperative Communication: Talks, Understands speaking, Understands Sammarinese Shopping: Dependent Medication Management: Dependent Housekeeping: Dependent Meal Prep: Dependent Assistive Devices: Cellphone, Eyeglasses, Grab bars - toilet, Grab bars - wall, Hand held shower, Handrails for stairs, Lift chair, Medication box, Walker - front wheeled Assistive Devices available not used : Cane Transportation: Support from family Managing Finances: Needs assistance Baseline Services/Resources Primary care clinic and provider: Gisele Curran MD [place], [place] Additional Resources: None at this time Anticipated Needs Functional Status: Meal preparation, Housekeeping, Transfer to/from bed, chair, etc., Bathing, Dressing, Grooming/hygeine, Toileting, Shopping, Managing finances, Transportation use (drive car, use taxi/bus), Medication set-up/administration Assistive Devices: None Services/Resources: Other (comment), Housekeeping Anticipated Modifications to the Patient's Home: None Transportation Needs: Independent to drive, Support from family Does the patient need discharge transport arranged?: No Phone Number for Ride/Caregiver: family will provide Anticipated Discharge Destination: [facility] Facility ASSESSMENT / PLAN Assessment: The psychology teacher met with Darcy Colon to discuss her current hospitalization and home going needs. The patient was accompanied by , Philippe . The patient was an unreliable historian and therefore the psychology teacher discussed patient's history, current hospitalization, and discharge planning needs with . The role of psychology teacher was reviewed. The patient and patient's reviewed her prior level of care and support system. The patient receives support from her and children. The patient's described her living environment as a single level home with stairs to enter with rails. Housekeeping, grocery shopping, meal prep, and other household responsibilities have previously been completed by patient's . Until about 1 month ago the patient was independent in assisting with and completing senior managing director, Philippe gordon is completing all senior managing director with our assistance from the patient. psychology teacher discussed the patient's potential needs at dismissal based on their home setting, previous needs and responsibilities, homebound status, and relevant assessments with the patient and patient's . The patient will be safe and supported at a SNF location to be TBD when medically ready. Support will be provided by family and SNF staff. The patient's demonstrated understanding when discussing her home going plans and anticipated needs. Darcy Colon shared that up to 1 month ago the patient was completely independent withall ADL's IADL's and house chores. He shares that since she had COVID in Feb 2023 she has rapidly deteriorated becoming increasing weaker to the point where she now requires assistance with most activities including feeding. The is insightful and identifies that he will not be able to safely care for his at home so agrees to SNF placement. Nurse adult protective caseworker explained the process of SNF referral and the benefit of broad referral. The board referral process was explained as follows: we will assess the needed level of care with referralsto be sent in a 30 mile radius around the patient???s preferred location and will be expanded up toa greater radius as needed. All question were answered. Both the patient and her family verbalize understanding and agreed with the discharge plan. At this time, the care team anticipates the patient will potentially require the following new service(s) to be set up: [facility] facility. After reviewing the patient's chart and meeting with the patient and patient's , the RN CaseManager deemed the LACE+/readmission questions were not necessary. The patient and patient's reports understanding that she will dismiss from the hospital when medically stable. Pending hospital course and medical readiness, no barriers to dismissal have been identified at this time. Plan: The patient and patient's agrees with the following plan. Patient's anticipated discharge disposition is: [facility] Facility List of providers given topatient. Transportation upon dismissal will be either by family or SNF shuttle depending on patient condition at time of DC . psychology teacher recommended reaching out to family, friends, and neighbors for assistance. psychology teacher provided information regarding the dismissal process and Medicare SNF benefit information . psychology teacher placed or requested the following hospital-based consult orders and/or referrals: None. psychology teacher provided the patient and patient's with a list of available skilled nursingfacility options in the geographic area where the patient and patient's resides or requested. [Disclaimers: If applicable, financial disclosures were provided informing the patient and patient's of any ownership and financial relationships. Current insurance coverage was reviewed with the patient and patient's in order to provide in-network options as appropriate.] A progress note with updates and/or transition plan to come. psychology teacher encouraged the patient to reach out with any questions/concerns. Signed by: Kamran Parrish R.N. 04/04/2023 NT REPRESENTATIVE * Kamran Parrish R.N. - 04/04/2023 10:47 AM CSTAssociated Order(s): IP CONSULT TO CARE MANAGEMENT Discharge Planning Assessment SUBJECTIVE Assessment Information Referral Source: Early Screen for Discharge Planning Referral Name: ESDP-14 Montse Martini R.N Referral Reason: Discharge Planning Primary Language: Sammarinese Person(s) present during interview: Person(s) Present During Interview: patient and spouse Philippe History of Present Illness #1 Weakness General Darcy Colon is hospitalized in [id number] Social History Marital Status: Family / Household: Lives with Caregiver Information: Caregiver Name: Philippe, son/daughter Caregiver Relationship: Spouse Finance/Insurance Primary insurance: MEDICARE A AND B Secondary insurance: MEDICA benefits: No Advance Directives Advance Directives: Advanced Care Plan Advance Directives Status: None on file OBJECTIVE Baseline Functional Status Baseline Activities of Daily Living Mobility: Requires aide of device Dressing: Needs assistance Feeding: Needs assistance Bathing: Needs assistance Grooming: Needs assistance Toileting: Needs assistance Behavior: Pleasant, Calm, Cooperative Communication: Talks, Understands speaking, Understands [place] Shopping: Dependent Medication Management: Dependent Housekeeping: Dependent Meal Prep: Dependent Assistive Devices: Cellphone, Eyeglasses, Grab bars - toilet, Grab bars - wall, Hand held shower, Handrails for stairs, Lift chair, Medication box, Walker - front wheeled Assistive Devices available not used : Cane Transportation: Support from family Managing Finances: Needs assistance Baseline Services/Resources Primary care clinic and provider: Gisele Curran MD [place], [place] Additional Resources: None at this time Anticipated Needs Functional Status: Meal preparation, Housekeeping, Transfer to/from bed, chair, etc., Bathing, Dressing, Grooming/hygeine, Toileting, Shopping, Managing finances, Transportation use (drive car, use taxi/bus), Medication set-up/administration Assistive Devices: None Services/Resources: Other (comment), Housekeeping Anticipated Modifications to the Patient's Home: None Transportation Needs: Independent to drive, Support from family Does the patient need discharge transport arranged?: No Phone Number for Ride/Caregiver: family will provide Anticipated Discharge Destination: [facility] Facility ASSESSMENT / PLAN Assessment: The psychology teacher met with Darcy Colon to discuss her current hospitalization and home going needs. The patient was accompanied by , Philippe . The patient was an unreliable historian and therefore the psychology teacher discussed patient's history, current hospitalization, and discharge planning needs with . The role of psychology teacher was reviewed. The patient and patient's reviewed her prior level of care and support system. The patient receives support from her and children. The patient's described her living environment as a single level home with stairs to enter with rails. Housekeeping, grocery shopping, meal prep, and other household responsibilities have previously been completed by patient's . Until about 1 month ago the patient was independent in assisting with and completing senior managing director, Philippe current is completing all senior managing director with our assistance from the patient. psychology teacher discussed the patient's potential needs at dismissal based on their home setting, previous needs and responsibilities, homebound status, and relevant assessments with the patient and patient's . The patient will be safe and supported at a SNF location to be TBD when medically ready. Support will be provided by family and SNF staff. The patient's demonstrated understanding when discussing her home going plans and anticipated needs. Darcy Rosie Colon shared that up to 1 month ago the patient was completely independent withall ADL's IADL's and house chores. He shares that since she had COVID in Feb 2023 she has rapidly deteriorated becoming increasing weaker to the point where she now requires assistance with most activities including feeding. The is insightful and identifies that he will not be able to safely care for his at home so agrees to SNF placement. Nurse adult protective caseworker explained the process of SNF referral and the benefit of broad referral. The board referral process was explained as follows: we will assess the needed level of care with referralsto be sent in a 30 mile radius around the patient???s preferred location and will be expanded up toa greater radius as needed. All question were answered. Both the patient and her family verbalize understanding and agreed with the discharge plan. At this time, the care team anticipates the patient will potentially require the following new service(s) to be set up: [facility] facility. After reviewing the patient's chart and meeting with the patient and patient's , the RN CaseManager deemed the LACE+/readmission questions were not necessary. The patient and patient's reports understanding that she will dismiss from the hospital when medically stable. Pending hospital course and medical readiness, no barriers to dismissal have been identified at this time. Plan: The patient and patient's agrees with the following plan. Patient's anticipated discharge disposition is: [facility] Facility List of providers given topatient. Transportation upon dismissal will be either by family or SNF shuttle depending on patient condition at time of DC . psychology teacher recommended reaching out to family, friends, and neighbors for assistance. psychology teacher provided information regarding the dismissal process and Medicare SNF benefit information . psychology teacher placed or requested the following hospital-based consult orders and/or referrals: None. psychology teacher provided the patient and patient's with a list of available skilled nursingfacility options in the geographic area where the patient and patient's resides or requested. [Disclaimers: If applicable, financial disclosures were provided informing the patient and patient's of any ownership and financial relationships. Current insurance coverage was reviewed with the patient and patient's in order to provide in-network options as appropriate.] A progress note with updates and/or transition plan to come. psychology teacher encouraged the patient to reach out with any questions/concerns. Signed by: Kamran Parrish R.N. 04/04/2023 NT REPRESENTATIVE * Masoud Graandos, O.T., [facility] - 04/04/2023 9:45 AM CST Occupational Therapy Acute Hospital Inpatient Evaluation/Treatment SUBJECTIVE Patient's Name: Darcy Colon Referring/Attending Provider: Darrell Zabala M.D. 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 Darcy Colon has a past surgical history that includes Breast biopsy; Breast lumpectomy; Mohs surgery; Tonsillectomy (1942); Joint replacement (2018); and Hysterectomy (2009 ??). History of Present Illness: Darcy Colon is a 82 y.o. female who was admitted to [facility] in [place] on 04/02/2023 for Hypercalcemia [E83.52] Hypokalemia [E87.6] Weakness General [R53.1]. Relevant Medical History: mild cog impairment, Breast CA, Skin CA, Anx, Dep, osteopenia, GERD. Precautions Other Precautions: Fall, cog Falls screen: Fall in the last 12 months: Yes Did you have an injury with the fall: Yes Are you fearful of falling: Yes Pain Assessment: Pain not reported during session. Subjective Comments: Patient greeted in chair and agreeable to therapy session. Team Communication: The patient's status was discussed and coordination of care occurred with RN, PT Family/Caregiver Present: present at end of session Home Living and Equipment: Lives with: Alone Receives help from: No help from others Type of Home: [facility] Home Layout: Two Level Able to live on main level with bedroom/bathroom Laundry main level Home Access: Level entry Stairs to enter: Number of steps: 2, Railing: bilateral handrails Stairs to alternate level: Number of steps: 12, Railing: bilateral handrails Bathroom Accessibility: Accessible via walker Shower: Walk-in Shower Level: Main Floor Enclosure Type: Door Bathroom Equipment: Grab bars in shower, Hand-held shower head, Shower chair with back Toilet: Standard Toilet Level: Main Floor Toilet Equipment: None Assistive Device Owned: Front wheeled walker, Four wheeled walker, Scooter Adaptive Equipment Owned: None Other DME Owned: Adjustable bed Prior Level of Function and Mobility: Functional Mobility: Independent Basic Activities of Daily Living: Independent Instrumental Activities of Daily Living: Independent Driving: Yes Occupational Role: Retired Patient/Caregiver Goals: No goals stated OBJECTIVE Vital Signs: Vitals stable per chart review. Vitals not formally assessed during session. No concerns during chart review and the patient had nosigns or symptoms consistent with vital changes during therapy session. Evaluation Assessment: STRENGTH: Generalized weakness Right upper extremity impaired Left upper extremity impaired Right lower extremity impaired Left lower extremity impaired RANGE OF MOTION: Generalized weakness Right upper extremity impaired Left upper extremity impaired BALANCE: Static Sitting: Good (Maintains balance without support) Dynamic Sitting: Fair (Maintains balance with handheld assist) Static Standing: Poor (Requires assist to maintain balance) Dynamic Standing: Poor (Requires assist to maintain balance) ACTIVITY TOLERANCE: Endurance: Tolerates less than 10 minutes of activity Outcome Measures: -[facility] Inpatient Short Form: Putting on and taking off regular lower body clothing?: Total Putting on and taking off regular upper body clothing?: A lot Taking care of personal grooming such as brushing teeth?: A lot Bathing (including washing, rinsing, drying)?: Total Toileting, which includes using toilet, bedpan, or urinal?: Total Eating meals?: A lot Daily Activities Raw Score (max 24): 9 Daily Activities Standardized Score: 25.33 Interpretation: Based on scoring guidelines using the raw score value: Those going to home had an average score at or above 18 Those going to facility had an average score at or below 17 Clinicians answer the -[facility] Inpatient Short Form based on observed patient activity and/or clinical judgment (ie. patient can be scored without physically performing each activity) O Log: The Orientation Log is a quick, quantitative measure of orientation status to place, time, and circumstance. The O-Log can be used for serial assessment of orientation to document changes overtime. A score of 25 or higher is associated with normal orientation, however does not evaluate executive function. Score Breakdown: City: 04/[address]: 04/28 Name of Hospital: 04/28 Month: 03/31 Date: 2/3 Year: 03/31 Day of the Week: 03/31 Clock Time: 03/31 Etiology/Event: 04/28 Pathology Deficits: 04/28 Total Score: 25/30 Cognition: Will further assess and monitor as warranted Therapeutic Interventions: FUNCTIONAL TRANSFERS: SIT to STAND - Assist Level: Minimal Assist, x 1 - Equipment: martir stedy and gait belt - Surface: Chair - Therapist Delivery: assessed, instructed, assisted, facilitated - Assist/Cues: verbal for technique, sequencing, safety STAND to SIT - Assist Level: Minimal Assist, x 1 - Equipment: martir stedy and gait belt - Surface: Chair - Therapist Delivery: assessed, instructed, assisted, facilitated - Assist/Cues: verbal for technique, sequencing, eccentric control, safety Education Provided: Provided education on role of occupational therapy in the acute setting. Collaborated with patient and/or family on goals and plan of care. Patient was left in bedside chair at end of session with call light in reach, all needs met and questions answered. Assessment Discharge Therapy Needs - OT: Ongoing skilled occupational therapy Skilled therapy can include occupational therapy provided in home health, outpatient or post-acute facility. The location of these services is determined by patient's care team in partnership with patient/family. Barriers to Discharge Home: Current functional status, Fall risk, Inaccessible home environment, Safety concerns Barriers to Discharge Comments: 2 stairs to enter residence. Recommended Adaptive Equipment - OT: Other (Comment) (Ongoing assessment) Level of Care Needed - OT: Assistance with toileting, Assistance with dressing, Assistance with toilet/shower transfers, Assistance with meal preparation, Physical assistance needed, Assistance with medication set up/administration, Assistance with personal financial advisor, Assistance with transportation, Assistance with showering/bathing, Assistance with housekeeping, Assistance with eating/feeding,Cognitive assistance needed, Assistance with shopping Clinical Impression: Currently, patient presents with impairments including decreased strength, debility, impaired balance, decreased activity tolerance, limited endurance, impaired range of motion, and cognitive deficits resulting in functional deficits including impaired functional mobility and decreased independencewith self care tasks. At baseline, the patient was independent with all self-cares/ADL's, IADL's, and ambulated without use of an assistive device; however, within the last 3 weeks leading up to current hospitalization she has required greater assistance for all self-cares/ADL's and transfers. In today's session, the patient completed a quick functional screen assessing her current active range of motion - and she demonstrated to be significant limited in her bilateral UE's, which greatly limits her ability to safely complete and participate in self-cares. Based upon patient's current functional status - she grossly requires maximal assistance for safe completion of all self-cares/ADL's. Specific to functional transfers, secondary to generalized weakness - the patient grossly requires minimal-moderate assistance of 1 (with use of Martir Stedy). The patient will benefit from ongoing occupational therapy services while hospitalized in order to improve engagement and independence in meaningful occupations. Plan OT Plan Comments: Next session: seated grooming, trunk/core strengthening exercises at EOB, progress transfers/mobilty as able; progress standing tolerance (with use of Martir Steady or FWW) Functional Goals: Progress: Slow progress, limited activity tolerance, Slow progress, medical status limitations Rehab potential: Ms. Colon has good potential to achieve established occupational therapy goals within the time frame outlined below. OT Frequency: OT Amount: 1 visit per day OT Frequency: 5 times per week OT Inpatient Duration : Until goals are met or hospital discharge Requires Inpatient OT Follow-Up: Yes OT - Next Inpatient Appointment: 04/05/23 Plan: Plan of care initiated Treatment interventions may include: Treatment Interventions: Therapeutic exercise, Therapeutic functional activity, Self-care/home management, Cognitive skills training Occupational Therapy Attestation Statement: Patient agrees with the plan of care and goals. Billing: Tiered OT Evaluation Codes: Personal Factors: Age, Balance impairment, History of falls, Safety awareness, Needs assistive device, Living situation Occupational Profile and History review: Expanded Performance Deficits: 3 - 5 performance deficits Evaluation Complexity: Moderate Time Spent with Patient Evaluations OT Eval - Mod Complexity: 8 min Therapeutic Interventions Home Management Training (min): 14 min Time Tracking Total Timed Units (min): 14 min Total Treatment Time (min): 22 min Cristiano Granados O.T., MOT NT REPRESENTATIVE * Maddy Null RDN, LD - 04/03/2023 3:00 PM CSTAssociated Order(s): IP CONSULT TO DIETITIAN; IP CONSULT TO DIETITIAN Clinical Nutrition: Initial Assessment Clinical Nutrition was requested to evaluate patient for positive nursing baseline nutrition screenwith a MST score of 2 or greater and assessment of nutritional status SUBJECTIVE Ms. Colon is a 82 y.o. female admitted for weakness Medical comorbidities include history of mild cognitive impairment, breast cancer (treated with lumpectomy and sentinel node dissection, hypofractionated whole breast radiation, anastrozole, tamoxifen), non-melanoma skin cancer, anxiety, depression, osteopenia, and GERD Current Nutrition (since admission): currently on regular diet. Calorie count started and we will trial some supplements. Percentage of Meals Eaten for the past 72 hrs: Percent Meals Eaten (%) 04/02/231999 Nutrition history: Nutrition history obtained from family as patient resting, Reported significant decline in Po since the start of the new year. Pt started having greatly reduced intake most items such as toast and soup but has declined to just bites. They have tried Ensure and juice but even so the patient often takes a few bites then will decline it. They report she has been sleeping a lot lately as well. She is having nausea and emesis (mostly dry heaves) almost daily since her recent bout of Covid and diverticulitis. vitamin B12 1000 mcg every other night, vitamin B bone builder every night. Food Allergies: None Food Intolerance: None Chewing/Swallowing Issues: None Nutrition education/counseling: Discussed role of RD, plan to start supplement and monitor but may have to excalate to nutrition support options if PO does note improve OBJECTIVE Current nutrition orders: Dietary Orders (From admission, onward) Start Ordered 04/02/23 1537 Adult Diet Regular Diet effective now Question: Diet texture: Answer: Regular 04/02/23 1547 Pertinent Labs: Last 3 results Lab Units 04/03/23 0545 04/02/23 1614 04/02/23 1010 SODIUM P mmol/L -- -- 140 SODIUM mmol/L 144 141 -- POTASSIUM mmol/L 3.5* 3.4* -- POTASSIUM P mmol/L -- -- 2.7* CHLORIDE P mmol/L -- -- 95* CHLORIDE mmol/L 104 99 -- BUN P mg/dL -- -- 19 BUN mg/dL 16 18 -- CREATININE mg/dL 1.13* 1.12* 1.14* PHOSPHORUS INORGANIC mg/dL 1.9* 2.8 -- CALCIUM P mg/dL -- -- 13.7* CALCIUM mg/dL 11.7* 12.3* -- MAGNESIUM mg/dL 2.2 1.6* -- GI Function: , , Passing Flatus: Yes Integumentary/Wounds: Lines/Drains/Airways None Medications: Scheduled Meds:brimonidine, 1 drop, both eyes, TID buPROPion XL, 150 mg, oral, Daily dorzolamide-timoloL, 1 drop, both eyes, BID escitalopram, 20 mg, oral, Daily heparin (porcine), 5,000 Units, subcutaneous, Q8H BISHOP ketorolac, 1 drop, both eyes, BID pantoprazole, 40 mg, oral, Daily before dinner jneemgokx-uzaojn-lbtkagkss, 1 packet, oral, Q4H While awake sennosides-docusate sodium, 1 tablet, oral, BID Continuous Infusions:Lactated Ringer's, 250 mL/hr, Last Rate: 250 mL/hr (04/03/23 1152) PRN Meds:. acetaminophen polyethylene glycol Anthropometrics: Height: 149.9 cm Admission Weight: 54 kg (04/02/2023) Current Weight: 54 kg [place] Body Weight (Calculated) : 43.2 kg BMI (Calculated): 24 kg/m?? Weight change since admission: 0 kg Net IO Since Admission: -1,777 mL [04/03/23 1501] Weight history: Wt Readings from Last 12 Encounters: 04/03/23 54 kg 04/13/22 57 kg 12/22/21 55 kg 06/13/21 59.4 kg 06/13/21 60.3 kg 05/10/21 62.3 kg 09/22/20 58.5 kg Weight Change History: Family estimated abobrittnai 7lb wth loss from her UBW of 128 lbs (28kg), 6% weight loss in 1 month Estimated Needs: Total Calorie Needs: 1773-6634 calories/day Method to Estimate Energy Needs: kcal/kg (25-30 kcal/kg) Weight Used for Equation Calculations: 54 kg Total Protein Needs: 54 - 65 grams/day (Method to Estimate Protein Needs (g/kg): 1 - 1.2 gm/kg) Weight Used to Calculate Protein Needs (Kg): 54 kg Nutrition Diagnosis: Inadequate protein-energy intake related to decreased appetite/ NV as evidenced by Family reported intake and >5% wt loss in 1 m Malnutrition Criteria: (severe malnutrition suspected but will wait for NFPE to confirm) The patient does meet the ASPEN Criteria of malnutrition based on: Energy Intake: Less than or equal to 75% of estimated energy requirement for greater than or equal to 1 month Interpretation of Weight Loss: greater than 5% 1 month Body Fat: Unable to Assess Muscle Mass: Unable to Assess This is in the context of Chronic Illness. NFPE deferred at this time as pt resting ASSESSMENT / PLAN ASPEN Criteria Malnutrition Status: Nutrition Intervention: Interventions: Medical food supplement, Increase nutrient intake with small, frequent meals and/or snacks, Assess oral intake with calorie count. Recommendations: Continue regular diet and calorie count if things do not improve, may need to consider nutrition support options. Continue to work-up medical etiology for decreased appetite and N/V. Start a multivitamin with minerals. Limited suspicion for micronutrient deficiency given fairly rapid decline but could consider checking B12, folate, B6 and zinc. Monitoring/Evaluation: Nutrition parameter to monitor: Meals/Supplement Intake, Weight Status, Nausea/Vomiting/Diarrhea, Wound Healing Desired Outcome: Consume adequate nutrition orally Patient Goal(s): Consume 50%% of 3 meals daily or consideration of enteral nutrition in 3-5 days. Clinical Nutrition will continue to follow. For questions about patient's nutritional care please contact pager [phone] on weekdays 07:30-16:00 or [phone] on weekends/holidays. NT REPRESENTATIVE * Chi Prakash, P.T., D.P.T. - 04/03/2023 10:49 AM CST Physical Therapy Inpatient Evaluation/Treatment SUBJECTIVE Patient's Name: Darcy Colon Referring/Attending Provider: Darrell Zabala M.D. 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 Darcy Colon has a past surgical history that includes Breast biopsy; Breast lumpectomy; Mohs surgery; Tonsillectomy (1943); Joint replacement (2019); and Hysterectomy (2009 ??). History of Present Illness: Darcy Colon is a 82 y.o. female who was admitted to [facility] in [place] on 04/02/2023 for Hypercalcemia [E83.52] Hypokalemia [E87.6] Weakness General [R53.1]. Relevant Medical History: mild cog impairment, Breast CA, Skin CA, Anx, Dep, osteopenia, GERD. Precautions Other Precautions: Fall, cog RST PT/OT Falls screen: Fall in the last 12 months: Yes Did you have an injury with the fall: Yes Are you fearful of falling: Yes Home Living and Equipment: Lives with: Alone Receives help from: No help from others Type of Home: [facility] Home Layout: Two Level Able to live on main level with bedroom/bathroom Laundry main level Home Access: Level entry Stairs to enter: Number of steps: 2, Railing: bilateral handrails Stairs to alternate level: Number of steps: 12, Railing: bilateral handrails Bathroom Accessibility: Accessible via walker Shower: Walk-in Shower Level: Main Floor Enclosure Type: Door Bathroom Equipment: Grab bars in shower, Hand-held shower head, Shower chair with back Toilet: Standard Toilet Level: Main Floor Toilet Equipment: None Assistive Device Owned: Front wheeled walker, Four wheeled walker, Scooter Adaptive Equipment Owned: None Other DME Owned: Adjustable bed Prior Level of Function and Mobility: Functional Mobility: Independent Basic Activities of Daily Living: Independent Instrumental Activities of Daily Living: Independent Driving: Yes Occupational Role: Retired Pain Assessment: Pain not reported during session. Patient/Caregiver Goals: No goals stated Subjective Comments: Patient Nursing agreed to session. OBJECTIVE Vital Signs: Vitals monitored throughout session; within normal ranges. Evaluation Assessments: Strength: Unable to assess upper extremities, lower extremities Range of Motion: Generalized weakness Right upper extremity impaired Left upper extremity impaired Right lower extremity impaired Left lower extremity impaired Balance: Static Sitting: Fair (Maintains balance with handheld assist) Dynamic Sitting: Poor (Requires assist to maintain balance) Static Standing: Poor (Requires assist to maintain balance) Dynamic Standing: Poor (Requires assist to maintain balance) Activity Tolerance: Endurance: Tolerates less than 10 minutes of activity Cognition: Somnolent but arousable, Impaired Safety/Judgement, Follows 1 step commands, with repetition, with increased time Outcome Measures: [facility] Inpatient Short Form: [facility] Basic Mobility (V.2) How much help from another person do you currently need???If the patient hasn't done an activity recently, how much help from another person do you think he/she would needif he/she tried? 1. Turning from your back to your side while in a flat bed without using bedrails?: A Little 2. Moving from lying on your back to sitting on the side of a flat bed without using bedrails?: A Lot 3. Moving to and from a bed to a chair (including a wheelchair)?: A Lot 4. Standing up from a chair using your arms (e.g., wheelchair, or bedside chair)?: A Lot 5. To walk in hospital room?: Total 6. Climbing 3-5 steps with a railing?: Total [facility] Basic Mobility (V.2) Raw Score: 11 [facility] Basic Mobility (V.2) Standardized Score: 30.25 Interpretation: Based on scoring guidelines using the raw score value: Those going to home had an average score at or above 18 Those going to facility had an average score at or below 17 Clinicians answer the [facility] Inpatient Short Form based on observed patient activity and/or clinical judgment (ie. patient can be scored without physically performing each activity) Therapeutic Interventions: SUPINE TO SIT: Assistance Level: Moderate Assistance of 1 Device: head of bed elevated and bedrail Assistance/Cueing: verbal and tactile for Completion of transfer, Logrolling, Lower extremity movement/management, Sequencing, Technique, Trunk support, and Upper extremity movement/management Delivery: educated, instructed, assessed, and assisted SIT TO SUPINE: Assistance Level: Maximal Assistance of 1 Device: head of bed elevated and bedrail Assistance/Cueing: verbal and tactile for Completion of transfer, Lower extremity movement/management, Sequencing, Technique, Trunk support, and Upper extremity movement/management Delivery: educated, instructed, assessed, and assisted SIT TO STAND: Assistance Level: Moderate Assistance of 1 Device: gait belt and front wheeled walker Surface: Transport Cart Assistance/Cueing: verbal and tactile for Anterior weight shifting, Lower extremity placement, Manual facilitation provided for force generation, Sequencing, Technique, Use of momentum, and Walker placement Delivery: educated, instructed, assessed, and assisted STAND TO SIT: Assistance Level: Moderate Assistance of 1 Device: gait belt and front wheeled walker Surface: Bed Assistance/Cueing: verbal and tactile for Alignment with seated surface, Eccentric control, and Walker placement Delivery: educated, instructed, assessed, and assisted PIVOT TRANSFERS: Surface:Transport Cart to Bed Assistance Level: Moderate Assistance of 1 Device: gait belt and front wheeled walker Approach: stand pivot Assistance/Cueing: verbal and tactile for Placement of gait aid, Placement within the walker, Sequencing, and Technique Delivery: educated, instructed, assessed, and assisted GAIT: Patient unable to ambulate at this time due to weakness and safety concerns. Education : The patient/family educated on safe transfer techniques with functional mobility/activity. The patient's status was discussed and the following coordination of care occurred with the: coil winder/Caregiver Family/Caregiver Present: Spouse Patient was left in bed with bed alarm on at end of session with call light in reach, all needs metand questions answered. Assessment Discharge Therapy Needs - PT: Ongoing skilled physical therapy Skilled therapy can include physical therapy provided by home health, outpatient clinic, or a post-acute facility. The location of these services is determined by the patient's care team in partnership with patient/family. Level of Care Needed - PT: Assistance with transfers (Comment), Assistance with walking and moving around the home, Assistance with bed mobility, Assistance with stairs, Cognitive assistance needed, Physical assistance needed Equipment Recommended - PT: Hospital bed, Wheelchair, Mechanical lift Barriers to Discharge Home: Current functional status, Fall risk, Inaccessible home environment, Safety concerns Barriers to Discharge Comments: 2 stairs to enter residence. From a physical therapy perspective, the level of care above has been recommended for Ms. Colon after hospital discharge. This level of care is based on her functional abilities during today's session. This may change throughout the hospital course and will be updated as appropriate. Clinical Impression: Currently, patient presents with decreased strength, impaired static balance, impaired dynamic balance, decreased activity tolerance, decreased safety awareness, decreased cognition, and cardiopulmonary impairments resulting in the following impaired bed mobility, impaired transfers, impaired gait,impaired ability to complete ADLs, and impaired ability to complete stairs. Patient pleasant and agreeable to PT evaluation although quite somnolent throughout. Prior to arrival patient was living with spouse in a town home with 2 stairs to enter, lives on the main level, previously was independentwith all ADLs, homemaking and ambulating without an assistive device several months prior, recentlyhas been requiring assistance for all ADLs and transfers with no ambulation. Today patient requiredmod assist x1 for bed mobility as well as mod assist x1 for [id number] transfer and stand pivot transfer, unable to ambulate due to weakness and safety concerns. Patient will continue to benefit from skilled PT in acute care setting as well as ongoing skilled therapy as she is currently below herfunctional baseline. Physical therapy treatment is medically necessary to restore and maximize function, maximize safetyand facilitate discharge to home, teach and educate the patient and/or caregivers. Plan PT Plan Comments: Continue to progress mobility, transfers, ambulation, balance and safety. Stair training when appropriate. Functional Goals: PT Inpatient Goals PT Goal #1: Patient will be able to complete all bed mobility independently with no physical assistand no verbal cues necessary in order to facilitate return to PLOF. PT Goal #2: Patient will be able to complete STS transfer from edge of bed to standing modified independent utilizing front wheel walker for assist, in order to allow for functional transfers at home. PT Goal #3: Patient will be able to ambulate 30m modified independent utilizing front wheel walker for assist, in order to allow for functional ambulation upon DC. PT Goal #4: Patient will be able to safely navigate 2 stair(s) under supervision in order to allow access into/to all levels of their home prior to discharge. Darcy RobertsonAdalid Hurdshana has Good rehab potential to meet the expected outcomes in a reasonable period of time. Treatment Plan: Plan: Plan of care initiated PT Frequency: 5 times per week PT Inpatient Duration : Until goals are met or hospital discharge Requires Inpatient Follow-Up: Yes PT - Next Inpatient Appointment: 04/04/23 Patient unable to verbalize agreement to the plan of care and goals due to mental status or level of consciousness, but family members present to consult and agree with the plan as stated above. Treatment interventions may include: Treatment/Interventions: Therapeutic exercise, Therapeutic functional activity, Neuromuscular re-education, Gait training, Self-care/home management Tiered PT Evaluation Codes: Comorbid Conditions: Cancer, Cognitive/memory disorder, Cardiopulmonary disease, Mental health disorder Personal Factors: Age, Balance impairment, History of falls, Safety awareness, Needs assistive device, Living situation Examination elements: 3 Clinical Presentation: Evolving Clinical Decision Making: Moderate complexity clinical decision making Billing: Time Spent with Patient Evaluations PT Eval - Mod Complexity: 10 min Therapeutic Interventions Therapeutic Activity (min): 10 min Time Tracking Total Timed Units (min): 10 min Total Treatment Time (min): 20 min Chi Prakash P.T., Gail.P.TAdalid NT REPRESENTATIVE documented in this encounter Nursing Notes * Nathaly Vicente R.N. - 04/23/2023 12:09 PM CST Patient deemed adequate to discharge to home self care via service. Last VS taken and stable. All IVs and LDA's removed. I's and O's updated. AVS and discharge education complete. also present at bedside for education. Patient able to teach back discharge education. Time was allotted for questions, and all questions were answered. Patient will discharge home with the support of her family and outpatient therapy. Patient is dressed and belongings are packed. Patient to picker box operator medications at home pharmacy. will provide transport home. Escort has been called. NT REPRESENTATIVE * Nathaly Vicente R.N. - 04/23/2023 12:08 PM CST Shift Goals: Clinical Goals for the Shift: Patient will shower this shift. Identify possible barriers to meeting goals/advancing plan of care: None. End of Shift Summary: Patient deemed adequate to discharge to home self care via service. Please refer to discharge summary note. Problem: PAIN - ADULT Goal: PT VERBALIZES/DEMONSTRATES ADEQUATE COMFORT LEVEL OR BASELINE Outcome: Adequate for Discharge Problem: KNOWLEDGE DEFICIT Goal: Patient/family/caregiver demonstrates understanding of disease process, treatment plan, medications, and discharge instructions Outcome: Adequate for Discharge Problem: INFECTION - ADULT Goal: Absence of infection during hospitalization Outcome: Adequate for Discharge Problem: SKIN/TISSUE INTEGRITY Goal: Skin/Tissue integrity maintained or improved Outcome: Adequate for Discharge Goal: Oral and Nasal mucous membranes remain intact Outcome: Adequate for Discharge Problem: SAFETY ADULT Goal: Maintain a safe environment Outcome: Adequate for Discharge Problem: DISCHARGE PLANNING Goal: Patient discharge needs identified Outcome: Adequate for Discharge Problem: POTENTIAL OR ACTUAL PRESSURE INJURY-ADULT Goal: Manage sensory Perception deficits to maintain and/or improve skin integrity Outcome: Adequate for Discharge Goal: Maintain optimal skin moisture to ensure or improve skin integrity Outcome: Adequate for Discharge Goal: Achieve optimal activity and/or mobility to maintain or improve skin integrity Outcome: Adequate for Discharge Goal: Nutrient intake appropriate for improving, restoring or maintaining skin integrity Outcome: Adequate for Discharge Goal: Minimize friction and/or shear to maintain or improve skin integrity Outcome: Adequate for Discharge Problem: Compromised Skin Integrity Goal: Skin/Tissue integrity maintained or improved Outcome: Adequate for Discharge Goal: Oral and Nasal mucous membranes remain intact Outcome: Adequate for Discharge Goal: Incisions, wounds, or drain sites healing without S/S of infection Outcome: Adequate for Discharge Problem: Incontinence and/or Moisture Goal: Skin integrity is maintained or improved Outcome: Adequate for Discharge Problem: SAFETY ADULT - RISK FOR FALL AND OR FALL INJURY Goal: Patient remains free from fall/fall injury Outcome: Adequate for Discharge Problem: ALTERED NUTRIENT INTAKE - ADULT Goal: Nutrient intake appropriate for improving, restoring or maintaining nutritional needs Outcome: Adequate for Discharge Problem: SWALLOWING Goal: Prevention of aspiration Outcome: Adequate for Discharge NT REPRESENTATIVE * Janey Castellanos R.N. - 04/17/2023 11:02 PM CST Shift Goals: Clinical Goals for the Shift: Patient will remain free from falls throughout shift End of Shift Summary: Nursing concerns, vital sign trends: VS stable throughout shift Fall prevention, safe patient handling, mobility: patient ambulated to bathroom under assistance of1 with walker and gait belt. Patient had shuffled steps but able to ambulate to and from bathroom with minimal assistance. Diet tolerance or GI concerns: patient tolerating tube feeding and q6 flushes. Problem: PAIN - ADULT Goal: PT VERBALIZES/DEMONSTRATES ADEQUATE COMFORT LEVEL OR BASELINE Outcome: Progressing Problem: INFECTION - ADULT Goal: Absence of infection during hospitalization Outcome: Progressing Problem: SAFETY ADULT Goal: Maintain a safe environment Outcome: Progressing Problem: POTENTIAL OR ACTUAL PRESSURE INJURY-ADULT Goal: Manage sensory Perception deficits to maintain and/or improve skin integrity Outcome: Progressing Problem: SAFETY ADULT - RISK FOR FALL AND OR FALL INJURY Goal: Patient remains free from fall/fall injury Outcome: Progressing Problem: SWALLOWING Goal: Prevention of aspiration Outcome: Progressing NT REPRESENTATIVE * Janey Castellanos R.N. - 04/13/2023 10:13 PM CST Shift Goals: Clinical Goals for the Shift: Patient will tolerate rituxan infusion this afternoon. End of Shift Summary: Nursing concerns, vital sign trends: VS remained stable throughout rituxan infusion. Patient lethargic throughout shift, and per family report this lethargy has been increasing over the last few days. Provider aware, no new orders at this time. Fall prevention, safe patient handling, mobility: patient remained in bed throughout the shift. Patient too nauseous to get out of bed with PT. Mobility or safety concerns for discharge: family verbalized concern with her current mobility and discharging. Social work consulted per family request to assist with discharge planning. Pressure Injury Prevention: patient turned q2 throughout shift. Kavon Score and other risk factors for pressure injury development include: Kavon Scale Score: 13, with pertinent subscales of: Moisture: 3, Activity: 2, Nutrition: 1, Mobility: 2, and Friction and Shear: 2. Prophylactic padding is present on coccyx. Patient is incontinent of urine. Purwick in place. The patient does have concerns for additional moisture, including Moisture within skin folds. WOC consulted, new orders received. Nystatin powder applied this evening. GI concerns: prior to RN's shift, patient had immediate emesis after tube feeding initiation. Tube feeding stopped just before 1100. Antiemetics given multiple times throughout shift; however patientstill reporting nausea. Service notified after rituxan infusion this evening regarding patient's nausea - okay to hold TF overnight to reinitiate tomorrow. Patient and family updated and in agreementwith plan. Problem: PAIN - ADULT Goal: PT VERBALIZES/DEMONSTRATES ADEQUATE COMFORT LEVEL OR BASELINE Outcome: Progressing Problem: INFECTION - ADULT Goal: Absence of infection during hospitalization Outcome: Progressing Problem: SKIN/TISSUE INTEGRITY Goal: Skin/Tissue integrity maintained or improved Outcome: Progressing Goal: Oral and Nasal mucous membranes remain intact Outcome: Progressing Problem: SAFETY ADULT Goal: Maintain a safe environment Outcome: Progressing Problem: Compromised Skin Integrity Goal: Skin/Tissue integrity maintained or improved Outcome: Progressing Goal: Oral and Nasal mucous membranes remain intact Outcome: Progressing Problem: SAFETY ADULT - RISK FOR FALL AND OR FALL INJURY Goal: Patient remains free from fall/fall injury Outcome: Progressing Problem: SWALLOWING Goal: Prevention of aspiration Outcome: Progressing NT REPRESENTATIVE * Rachelle Nicolas R.N. - 04/09/2023 3:14 AM CST Shift Goals: Clinical Goals for the Shift: Patient will continue to tolerate tube feedings. Patient will rest comfortably throughout the night. Identify possible barriers to meeting goals/advancing plan of care: none End of Shift Summary: Patient VSS. Patient tolerated tube feedings overnight at the goal rate of 40mL/hr. Isamar flakes supplement given through tube in the evening. No reports of pain. Remained safe overnight. Purewick used with good urine output. Problem: PAIN - ADULT Goal: PT VERBALIZES/DEMONSTRATES ADEQUATE COMFORT LEVEL OR BASELINE Outcome: Progressing Problem: SAFETY ADULT Goal: Maintain a safe environment Outcome: Progressing Problem: Incontinence and/or Moisture Goal: Skin integrity is maintained or improved Outcome: Progressing Problem: SAFETY ADULT - RISK FOR FALL AND OR FALL INJURY Goal: Patient remains free from fall/fall injury Outcome: Progressing Electronically signed by: Rachelle Nicolas R.N. 04/09/23 3:15 AM CLIENT REPRESENTATIVE NT REPRESENTATIVE * Chelsea Andrade R.N. - 04/08/2023 4:14 AM CST Shift Goals: Patient will be more alert this shift. Identify possible barriers to meeting goals/advancing plan of care: intermittent sleeping, alert End of Shift Summary: Neuro: Patient is alert and oriented x 2. Disoriented to time. Vital signs stable on room air. Patient rated pain at 0/10. Pain managed by rest. CV: HR/BP stable GI: No BM this shift. Continuous TF infusing. No Bm this shift. : incontinent. Purewick intact. Activity: Up with assist of 2 and martir steady. IV: Dressing CDI. No signs of infiltration/phlebitis Skin: mepliex on coccyx Diet: Nutren 1.5 infusing at 40 mL/hr- goal rate, dysphagia diet. Po intake encouraged Call light within reach. Bed/chair alarm activated. Consults: neurology, hematology PRN medications given: n/a Electrolyte replacements: phosphorus Plan pending BMB results. Problem: PAIN - ADULT Goal: PT VERBALIZES/DEMONSTRATES ADEQUATE COMFORT LEVEL OR BASELINE Outcome: Progressing Problem: KNOWLEDGE DEFICIT Goal: Patient/family/caregiver demonstrates understanding of disease process, treatment plan, medications, and discharge instructions Outcome: Progressing Problem: INFECTION - ADULT Goal: Absence of infection during hospitalization Outcome: Progressing Problem: SKIN/TISSUE INTEGRITY Goal: Skin/Tissue integrity maintained or improved Outcome: Progressing Goal: Oral and Nasal mucous membranes remain intact Outcome: Progressing Problem: SAFETY ADULT Goal: Maintain a safe environment Outcome: Progressing Problem: DISCHARGE PLANNING Goal: Patient discharge needs identified Outcome: Progressing Problem: POTENTIAL OR ACTUAL PRESSURE INJURY-ADULT Goal: Manage sensory Perception deficits to maintain and/or improve skin integrity Outcome: Progressing Goal: Maintain optimal skin moisture to ensure or improve skin integrity Outcome: Progressing Goal: Achieve optimal activity and/or mobility to maintain or improve skin integrity Outcome: Progressing Goal: Nutrient intake appropriate for improving, restoring or maintaining skin integrity Outcome: Progressing Goal: Minimize friction and/or shear to maintain or improve skin integrity Outcome: Progressing Problem: Compromised Skin Integrity Goal: Skin/Tissue integrity maintained or improved Outcome: Progressing Goal: Oral and Nasal mucous membranes remain intact Outcome: Progressing Goal: Incisions, wounds, or drain sites healing without S/S of infection Outcome: Progressing Problem: Incontinence and/or Moisture Goal: Skin integrity is maintained or improved Outcome: Progressing Problem: SAFETY ADULT - RISK FOR FALL AND OR FALL INJURY Goal: Patient remains free from fall/fall injury Outcome: Progressing NT REPRESENTATIVE documented in this encounter ED Notes * Sean Jansen M.D. - 04/05/2023 6:52 AM CST SUBJECTIVE CHIEF COMPLAINT/REASON FOR VISIT Weakness - Generalized HISTORY OF PRESENT ILLNESS presents to ED via wheelchair with spouse for concerns of progressive weakness. Pt became ill with COVID in the beginning of February and since then has developed diverticulitis, UTIs and has had significant decrease in appetite with slight weight loss. Pts spouse describes 'fogginess' with pt not understanding conversations and/or not able to communicate properly. Pt was able to independently move around 1 week ago however the symptoms described above progressed rapidly over the past week to the pont of the pt sleeping all day . No fevers. REVIEW OF SYSTEMS Constitutional: Negative for fever. OBJECTIVE Initial Vitals Temperature 04/02/23 1006 36.6 ??C Pulse Rate 04/02/23 1000 73 Heart Rate -- Resp Rate 04/02/23 1445 16 Blood Pressure 04/02/23 1006 (!) 163/88 SpO2 04/02/23 1000 94 % Pain Score 04/02/23 1014 0 - No pain PHYSICAL EXAMINATION Constitutional: No distress. HENT: Head: Atraumatic. No signs of injury. Nose: Nose normal. No nasal discharge. Mouth/Throat: Mucous membranes are moist. Eyes: Conjunctivae and EOM are normal. Neck: Neck supple. Cardiovascular: Capillary refill: takes less than 3 seconds Pulmonary/Chest: Effort normal. There is normal air entry. No respiratory distress. Musculoskeletal: General: No tenderness. Normal range of motion. Cervical back: Normal range of motion and neck supple. Neurological: Alert and oriented to person, place, and time. Skin: Skin is warm and dry. Psychiatric: She has a normal mood and affect. ASSESSMENT/PLAN Assessment and Plan She remained hemodynamically stable during her Emergency Department visit. Laboratory results todaydemonstrate hypokalemia and hypercalcemia. Saline diuresis was started during the visit here in theemergency department. Potassium supplementation was also started during the visit here. Given the severity of the electrolyte disorder, this is probably why she is so weak and unable to ambulate independently. Her care is discussed with the internal medicine team. She will be admitted for continuedsaline diuresis and treatment of her hypercalcemia. She will also be admitted for potassium replacement.. Final Diagnoses: as of 04/05/23 0652 Weakness General Hypokalemia Hypercalcemia Care Handoff Row Name 04/02/23 1134 Care Handoff Type of Handoff Admission handoff Sean Jansen M.D. 04/05/23 0655 NT REPRESENTATIVE * Fatoumata Cornell R.N. - 04/02/2023 10:02 AM CST Pt presents to ED via wheelchair with spouse for concerns of progressive weakness. Pt became ill with COVID in the beginning of February and since then has developed diverticulitis, UTIs and has had significant decrease in appetite with slight weight loss. Pts spouse describes 'fogginess' with pt not understanding conversations and/or not able to communicate properly. Pt was able to independently move around 1 week ago however the symptoms described above progressed rapidly over the past week tothe pont of the pt sleeping all day . No fevers. ABCs intact. . Fatoumata Cornell R.N. 04/02/23 1005 NT REPRESENTATIVE documented in this encounter Miscellaneous Notes * Documentation Clarification - Quinn Hernandez M.D., M.H.P.E. - 04/05/2023 2:03 PM CST PROVIDER RESPONSE TEXT: To clarify, the appropriate diagnosis supported by the clinical indicators: Acute Metabolic Encephalopathy <LCI> QUERY TEXT: DOCUMENTATION CLARIFICATION REQUEST Please clarify/specify the appropriate diagnosis supported in the clinical indicators below. Acute Metabolic Encephalopathy Other (explain) Clinically unable to determine (explain) Clinical Indicators/Risk Factors/Treatment: - 04/02 H&P (Villamaria): Darcy Colon is a 82 y.o. female who presents with weakness and confusion. Medical comorbidities include history of mild cognitive impairment, breast cancer, non-melanoma skin cancer, anxiety, depression, osteopenia, and GERD... Encephalopathy - 04/04 HIM (Mary): presented with generalized weakness and change in mental status in the setting of hypercalcemia. Today her mental status has improved, and she is more responsive, answering questions in bed and opening her eyes. She is still not at her baseline but appears to be moving in the correct direction. Calcium has continued to trend downward in a reassuring direction and is 10.7 today. Parathyroid hormone related peptide is pending. I anticipate some of the improvement in mental status is likely from the improving hypercalcemia. Please contact me if you have questions. Thank you, Melvin Goodman R.N., [facility] Clinical Documentation Line Fisher Query created by: Melvin Goodman R.N., [facility] [facility] 04/05/2023 11:13 AM CLIENT REPRESENTATIVE </LCI> NT REPRESENTATIVE * Documentation Clarification - Quinn Hernandez M.D., M.H.P.E. - 04/05/2023 2:03 PM CST PROVIDER RESPONSE TEXT: To clarify, the appropriate diagnosis supported by the clinical indicators: Severe Malnutrition; Agree with Dietary assessment and treatment plan, which includes: Medical foodsupplement, Increase nutrient intake with small, frequent meals and/or snacks, Assess oral intake with calorie count. <LCI> QUERY TEXT: DOCUMENTATION CLARIFICATION REQUEST Please clarify/specify the appropriate diagnosis supported in the clinical indicators below. Severe Malnutrition; Agree with Dietary assessment and treatment plan, which includes: Medical foodsupplement, Increase nutrient intake with small, frequent meals and/or snacks, Assess oral intake with calorie count. Other (explain) Clinically unable to determine (explain) Clinical Indicators/Risk Factors/Treatment: - 04/05 ED (Inderjit): significant decrease in appetite with slight weight loss - 04/02 H&P (Bienvenido): Darcy Colon is a 82 y.o. female who presents with weakness and confusion. Medical comorbidities include history of mild cognitive impairment, breast cancer, non-melanoma skin cancer, anxiety, depression, osteopenia, and GERD...mild thrombocytopenia was thought to be medication related vs nutritional deficiency vs splenomegaly. - 04/03 NTR (PEYMAN Null): (severe malnutrition suspected but will wait for NFPE to confirm) - 2 HIM (Vj): Regarding her weight loss and poor appetite, etiology is not entirely clear though we will assess for depression when able. Will ask a dietitian to visit and start calorie counts to get an idea of how much nutrition she is getting. Consider checking multiple nutrition indices. - 04/04 PHR (Jose): Hypercalcemia Hypokalemia Hypophosphatemia. Malnutrition/possible refeeding syndrome. - 04/04 NTR (PEYMAN Steward): Severe Malnutrition in the context of chronic illness. Interventions: Medical food supplement, Increase nutrient intake with small, frequent meals and/or snacks, Assess oral intake with calorie count. Please contact me if you have questions. Thank you, Melvin Goodman R.N., [facility] Clinical Documentation Line Fisher Query created by: Melvin Goodman R.N., [facility] 04/05/2023 10:57 AM CLIENT REPRESENTATIVE </LCI> NT REPRESENTATIVE * Hospital Course - Santiago Mejía M.D., M.S. - 04/02/2023 6:09 PM CLIENT REPRESENTATIVE Darcy Colon is an 82-year-old female with medical comorbidities including mild cognitive impairment, parkinsonism, HTN, breast cancer in 2017 s/p lumpectomy and radiation, nonmelanoma skin cancer,osteopenia, B12 deficiency on supplementation, and GERD who was admitted on 04/02 for generalized weakness, confusion, and poor oral intake. 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 Prior to admission: The patient had COVID at the beginning of February followed by diverticulitis and urinary tract infection both requiring hospitalization while in [place]. Workup during these hospitalizations revealedsplenomegaly. With each hospitalization, the patient continued to decline with decreased appetite, generalized weakness, and progressive encephalopathy. She was previously independent and able to driv e, which progressed to difficulty communicating and understanding conversations, inability to mobilize independently, and sleeping all day. Given her continued decline, her and her flew back to [place] and presented to the [facility] ED on 04/02 for these concerns. ED Course: Vitals were stable on arrival. Labs were notable for mild pancytopenia with hemoglobin 11.6, platelets 69, WBC 4.4, K 2.7, calcium 13.7, creatinine 1.14 (baseline 0.9). Examination was notable for encephalopathy and macroglossia. She was provided with 1 L of fluid in the emergency department and admitted to the Medicine 2 service. Med 2 Course: Hematology: Abdominal ultrasound on 04/[address] head revealed age- indeterminate left basal ganglia lacunar infarct with otherwise no acute intracranial findings. MRI brain 04/05 was negative for acute intracranial findings and had no evidence of lymphoma. PET-CT 04/06 revealed moderately FDG konstantin d splenomegaly and diffuse bone marrow activities suspicious for a lymphoproliferative disorder along with moderate left pelvocaliectasis with retention of FDG activity in the collecting system to the level of the left UPJ. 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 She was transferred to [facility] on 04/12 and received her 1st dose of rituximab on 04/13. Hypercalcemia: The patient was noted to be on calcium, vitamin-D supplementation, and hydrochlorothiazide at home.The combination of these medications along with dehydration was thought to be the likely cause of her hypercalcemia. These medications were held and she was given a total of 15 L IV fluids and oral re hydration, Lasix 20 mg IV x 2, Zometa, and calcitonin x 2 with improvement in hypercalcemia. Workupincluding hypovitaminosis D, paraneoplastic etiology, and hyperparathyroidism were negative. Encephalopathy: The patient was noted to demonstrate a subacute and progressive encephalopathy over the past 1-2 months exacerbated by COVID-19 infection in February 2023. This was in the background of mild cognitiveimpairment and parkinsonism type features. Neurology was consulted. 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 Neurology felt her altered mental status was possibly secondary to an underlying neurodegenerative disorder compounded by nutritional deficiencies. Nutrition: She was noted to have severe malnutrition upon admission. She was seen by nutrition and an NG-tube was placed on 04/06. She was initiated on tube feeds, which was complicated by refeeding syndrome. Vitamin B6 level was low and was supplemented. She was initially given thiamine at high IV doses given her encephalopathy. PT/OT and speech were consulted given her significant debility as well as concern for dysphagia contributing to poor oral intake. Her oropharyngeal swallow was within functional limits but she did have overall general debility with swallowing. NG-tube was kept in place for supplemental feedings with a soft and bite size diet. She was continued on PO thiamine and pyridoxine. She transferred to the hematology 3 service on 04/14 following 1st dose of rituximab infusion. Heme 3: The patient had evidence of mild volume overload on exam with crackles, pulmonary vascular congestion, and mild lower extremity edema. Continuous maintenance fluids were discontinued and she was provided with gentle diuresis. She was encouraged to prioritize PO intake. She worked with PT, OT, and speech therapy. She was liberalized to a regular diet on 04/16. Tube feeds were weaned and NG was removed with adequate PO intake. She received her second dose of rituximab on 04/20 which she tolerated well. Her calcium remained stable without further directed treatments. Disposition: She was discharged to home in stable condition on 04/23/2023. Medications: Started: Pyridoxine Thiamine Changed: None Stopped: Aspirin Hypercalcemia related meds: Vitamin-D and calcium supplementation, hydrochlorothiazide B12 - she was supratherapeutic on 04/04/2023 NT REPRESENTATIVE documented in this encounter Plan of Treatment Upcoming Encounters Date Type Department Care Team (Late st Contact Info) Description 07/09/2023 11:15 AM CDT Clinical Communication Virtual Review in [address] [address] 07/11/2023 1:00 PM CDT Office Visit Department of Neurology in [address] [phone] Danita Prabhakar M.D., Ph.D. [address] [place] [phone] Scheduled Orders Name Type Priority Associated Diagnoses Orde r Schedule Bedside anesthesia scheduling Procedures Routine Once for 1 Occur rences starting 04/06/2023 until 04/06/2023 documented as of this encounter Procedures Procedure Name Priority Date/Time Associated Diagnosis Comments VRE PCR Routine 04/23/2023 7:53 AM CLIENT REPRESENTATIVE CALCIUM, IONIZED, S/B Routine 04/23/2023 7:28 AM CLIENT REPRESENTATIVE CBC NO CALL BACK, REFLEX T/S Routine 04/23/2023 7:27 AM CLIENT REPRESENTATIVE BASIC METABOLIC PANEL, S/P Routine 04/23/2023 7:27 AM CLIENT REPRESENTATIVE CBC NO CALL BACK, REFLEX T/S Routine 04/22/2023 6:20 AM CLIENT REPRESENTATIVE CYSTATIN C WITH EGFR Routine 04/22/2023 6:20 AM CLIENT REPRESENTATIVE CALCIUM, IONIZED, S/B Routine 04/22/2023 6:20 AM CLIENT REPRESENTATIVE ALBUMIN, S/P Routine 04/22/2023 6:20 AM CLIENT REPRESENTATIVE BASIC METABOLIC PANEL, S/P Routine 04/22/2023 6:20 AM CLIENT REPRESENTATIVE ECG Routine 04/21/2023 10:47 AM CLIENT REPRESENTATIVE CBC NO CALL BACK, REFLEX T/S Routine 04/21/2023 6:39 AM CLIENT REPRESENTATIVE CYSTATIN C WITH EGFR Routine 04/21/2023 6:39 AM CLIENT REPRESENTATIVE BASIC METABOLIC PANEL, S/P Routine 04/21/2023 6:39 AM CLIENT REPRESENTATIVE CALCIUM, IONIZED, S/B Routine 04/20/2023 6:23 AM CLIENT REPRESENTATIVE BASIC METABOLIC PANEL, S/P Routine 04/20/2023 6:23 AM CLIENT REPRESENTATIVE CBC NO CALL BACK, REFLEX T/S Routine 04/19/2023 7:54 AM CLIENT REPRESENTATIVE CALCIUM, IONIZED, S/B Routine 04/19/2023 7:54 AM CLIENT REPRESENTATIVE BASIC METABOLIC PANEL, S/P Routine 04/19/2023 7:54 AM CLIENT REPRESENTATIVE CBC NO CALL BACK, REFLEX T/S Routine 04/18/2023 12:47 AM CLIENT REPRESENTATIVE TYPE AND SCREEN Routine 04/18/2023 12:47 AM CLIENT REPRESENTATIVE CALCIUM, IONIZED, S/B Routine 04/18/2023 12:47 AM CLIENT REPRESENTATIVE BASIC METABOLIC PANEL, S/P Routine 04/18/2023 12:47 AM CLIENT REPRESENTATIVE DX ABDOMEN PORTABLE ANTERIOR POSTERIOR 1 VIEW RAD - Routine (most inpatients and all outpatients) 04/17/2023 11:59 AM CLIENT REPRESENTATIVE CBC NO CALL BACK, REFLEX T/S Routine 04/17/2023 12:38 AM CLIENT REPRESENTATIVE CYSTATIN C WITH EGFR Routine 04/17/2023 12:38 AM CLIENT REPRESENTATIVE PHOSPHORUS (INORGANIC), S Routine 04/17/2023 12:38 AM CLIENT REPRESENTATIVE CALCIUM, IONIZED, S/B Routine 04/17/2023 12:38 AM CLIENT REPRESENTATIVE BASIC METABOLIC PANEL, S/P Routine 04/17/2023 12:38 AM CLIENT REPRESENTATIVE VRE PCR Routine 04/16/2023 8:34 AM CLIENT REPRESENTATIVE CBC NO CALL BACK, REFLEX T/S Timed 04/16/2023 6:14 AM CLIENT REPRESENTATIVE CYSTATIN C WITH EGFR Timed 04/16/2023 6:14 AM CLIENT REPRESENTATIVE URIC ACID, S/P Timed 04/16/2023 6:14 AM CLIENT REPRESENTATIVE PHOSPHORUS (INORGANIC), S Timed 04/16/2023 6:14 AM CLIENT REPRESENTATIVE CALCIUM, IONIZED, S/B Timed 04/16/2023 6:14 AM CLIENT REPRESENTATIVE BASIC METABOLIC PANEL, S/P Timed 04/16/2023 6:14 AM CLIENT REPRESENTATIVE URIC ACID, S/P Timed 04/15/2023 8:02 PM CLIENT REPRESENTATIVE PHOSPHORUS (INORGANIC), S Timed 04/15/2023 8:02 PM CLIENT REPRESENTATIVE CALCIUM, IONIZED, S/B Timed 04/15/2023 8:02 PM CLIENT REPRESENTATIVE BASIC METABOLIC PANEL, S/P Timed 04/15/2023 8:02 PM CLIENT REPRESENTATIVE URIC ACID, S/P Timed 04/15/2023 12:26 PM CLIENT REPRESENTATIVE PHOSPHORUS (INORGANIC), S Timed 04/15/2023 12:26 PM CLIENT REPRESENTATIVE CALCIUM, IONIZED, S/B Timed 04/15/2023 12:26 PM CLIENT REPRESENTATIVE BASIC METABOLIC PANEL, S/P Timed 04/15/2023 12:26 PM CLIENT REPRESENTATIVE CBC NO CALL BACK, REFLEX T/S Timed 04/15/2023 6:14 AM CLIENT REPRESENTATIVE CYSTATIN C WITH EGFR Timed 04/15/2023 6:14 AM CLIENT REPRESENTATIVE URIC ACID, S/P Timed 04/15/2023 6:14 AM CLIENT REPRESENTATIVE PHOSPHORUS (INORGANIC), S Timed 04/15/2023 6:14 AM CLIENT REPRESENTATIVE CALCIUM, IONIZED, S/B Timed 04/15/2023 6:14 AM CLIENT REPRESENTATIVE BASIC METABOLIC PANEL, S/P Timed 04/15/2023 6:14 AM CLIENT REPRESENTATIVE URIC ACID, S/P Timed 04/14/2023 8:16 PM CLIENT REPRESENTATIVE PHOSPHORUS (INORGANIC), S Timed 04/14/2023 8:16 PM CLIENT REPRESENTATIVE CALCIUM, IONIZED, S/B Timed 04/14/2023 8:16 PM CLIENT REPRESENTATIVE BASIC METABOLIC PANEL, S/P Timed 04/14/2023 8:16 PM CLIENT REPRESENTATIVE DIPSTICK, U Routine 04/14/2023 3:34 PM CLIENT REPRESENTATIVE MICROSCOPIC AUTOMATED Routine 04/14/2023 3:34 PM CLIENT REPRESENTATIVE PH, U Routine 04/14/2023 3:34 PM CLIENT REPRESENTATIVE OSMOLALITY, U Routine 04/14/2023 3:34 PM CLIENT REPRESENTATIVE URINALYSIS WITH MICROSCOPIC Routine 04/14/2023 3:34 PM CLIENT REPRESENTATIVE DX CHEST PORTABLE 1 VIEW RAD - Routine (most inpatients and all outpatients) 04/14/2023 2:55 PM CLIENT REPRESENTATIVE URIC ACID, S/P Timed 04/14/2023 1:10 PM CLIENT REPRESENTATIVE PHOSPHORUS (INORGANIC), S Timed 04/14/2023 1:10 PM CLIENT REPRESENTATIVE BASIC METABOLIC PANEL, S/P Timed 04/14/2023 1:10 PM CLIENT REPRESENTATIVE DX ABDOMEN PORTABLE ANTERIOR POSTERIOR 1 VIEW RAD - Semiurgent (Fast; most ED patients; some inpatients) 04/14/2023 11:45 AM CLIENT REPRESENTATIVE HEPATIC FUNCTION PANEL, S Timed 04/14/2023 4:13 AM CLIENT REPRESENTATIVE CBC NO CALL BACK, REFLEX T/S Timed 04/14/2023 4:13 AM CLIENT REPRESENTATIVE URIC ACID, S/P Timed 04/14/2023 4:13 AM CLIENT REPRESENTATIVE PHOSPHORUS (INORGANIC), S Timed 04/14/2023 4:13 AM CLIENT REPRESENTATIVE CALCIUM, IONIZED, S/B Timed 04/14/2023 4:13 AM CLIENT REPRESENTATIVE BASIC METABOLIC PANEL, S/P Timed 04/14/2023 4:13 AM CLIENT REPRESENTATIVE URIC ACID, S/P Timed 04/13/2023 8:26 PM CLIENT REPRESENTATIVE PHOSPHORUS (INORGANIC), S Timed 04/13/2023 8:26 PM CLIENT REPRESENTATIVE CALCIUM, IONIZED, S/B Timed 04/13/2023 8:26 PM CLIENT REPRESENTATIVE BASIC METABOLIC PANEL, S/P Timed 04/13/2023 8:26 PM CLIENT REPRESENTATIVE GLUCOSE POCT, B Routine 04/13/2023 2:21 PM CLIENT REPRESENTATIVE URIC ACID, S/P Timed 04/13/2023 12:20 PM CLIENT REPRESENTATIVE PHOSPHORUS (INORGANIC), S Timed 04/13/2023 12:20 PM CLIENT REPRESENTATIVE BASIC METABOLIC PANEL, S/P Timed 04/13/2023 12:20 PM CLIENT REPRESENTATIVE (TTE) 2D ECHO DOPPLER COLOR Routine 04/13/2023 10:33 AM CLIENT REPRESENTATIVE CBC NO CALL BACK, REFLEX T/S Timed 04/13/2023 6:07 AM CLIENT REPRESENTATIVE ALKALINE PHOSPHATASE, TOT AND ISOENZYMES, S Timed 04/13/2023 6:07 AM CLIENT REPRESENTATIVE URIC ACID, S/P Timed 04/13/2023 6:07 AM CLIENT REPRESENTATIVE PHOSPHORUS (INORGANIC), S Timed 04/13/2023 6:07 AM CLIENT REPRESENTATIVE MAGNESIUM, S Timed 04/13/2023 6:07 AM CLIENT REPRESENTATIVE CALCIUM, IONIZED, S/B Timed 04/13/2023 6:07 AM CLIENT REPRESENTATIVE BASIC METABOLIC PANEL, S/P Timed 04/13/2023 6:07 AM CLIENT REPRESENTATIVE CALCIUM, IONIZED, S/B Timed 04/12/2023 9:57 PM CLIENT REPRESENTATIVE VRE PCR Routine 04/12/2023 6:03 PM CLIENT REPRESENTATIVE URIC ACID, S/P Timed 04/12/2023 6:03 PM CLIENT REPRESENTATIVE PHOSPHORUS (INORGANIC), S Timed 04/12/2023 6:03 PM CLIENT REPRESENTATIVE CALCIUM, IONIZED, S/B Timed 04/12/2023 6:03 PM CLIENT REPRESENTATIVE BASIC METABOLIC PANEL, S/P Timed 04/12/2023 6:03 PM CLIENT REPRESENTATIVE DX ABDOMEN PORTABLE ANTERIOR POSTERIOR 1 VIEW RAD - Routine (most inpatients and all outpatients) 04/12/2023 5:30 PM CLIENT REPRESENTATIVE PH BLOOD GAS STAT 04/12/2023 12:41 PM CLIENT REPRESENTATIVE CBC NO CALL BACK, REFLEX T/S STAT 04/12/2023 12:41 PM CLIENT REPRESENTATIVE MOGYTZM-[id number] DEHYDROGENASE (G-6-PD), RICH, ERYTHROCYTES, B STAT 04/12/2023 12:41 PM CLIENT REPRESENTATIVE URIC ACID, S/P STAT 04/12/2023 12:41 PM CLIENT REPRESENTATIVE PHOSPHORUS (INORGANIC), S STAT 04/12/2023 12:41 PM CLIENT REPRESENTATIVE LACTATE DEHYDROGENASE (LD), S STAT 04/12/2023 12:41 PM CLIENT REPRESENTATIVE CALCIUM, IONIZED, S/B STAT 04/12/2023 12:41 PM CLIENT REPRESENTATIVE [id number] (BETA-2-M), S STAT 04/12/2023 12:41 PM CLIENT REPRESENTATIVE COMPREHENSIVE METABOLIC PANEL, S/P STAT 04/12/2023 12:41 PM CLIENT REPRESENTATIVE SARS CORONAVIRUS 2, PCR RAPID, V STAT 04/11/2023 3:29 PM CLIENT REPRESENTATIVE HIV-1/-2 AG AND AB SCREEN, PLASMA Routine 04/11/2023 6:49 AM CLIENT REPRESENTATIVE HCV AB W/REFLEX TO HCV PCR, S Routine 04/11/2023 6:49 AM CLIENT REPRESENTATIVE CBC WITHOUT DIFFERENTIAL, B Routine 04/10/2023 7:54 AM CLIENT REPRESENTATIVE IMMUNOGLOBULINS (IGG, IGA, AND IGM), S Routine 04/10/2023 7:54 AM CLIENT REPRESENTATIVE PHOSPHORUS (INORGANIC), S Routine 04/10/2023 7:54 AM CLIENT REPRESENTATIVE MAGNESIUM, S Routine 04/10/2023 7:54 AM CLIENT REPRESENTATIVE BASIC METABOLIC PANEL, S/P Routine 04/10/2023 7:54 AM CLIENT REPRESENTATIVE HEPATIC FUNCTION PANEL, S Routine 04/10/2023 7:49 AM CLIENT REPRESENTATIVE HBC TOTAL AB, SERUM Routine 04/10/2023 7 :49 AM CLIENT REPRESENTATIVE HBS ANTIBODY, SERUM Routine 04/10/2023 7 :49 AM CLIENT REPRESENTATIVE HEPATITIS B SURFACE ANTIGEN Routine 04/10/2023 7:49 AM CLIENT REPRESENTATIVE URIC ACID, S/P Routine 04/10/2023 7:49 AM CLIENT REPRESENTATIVE US KIDNEYS BILATERAL WITH BLADDER RAD - Timed (for specific dates/times) 04/09/2023 5:46 PM CLIENT REPRESENTATIVE WY FNA BX WO IMG 1ST LESION Routine 04/09/2023 10:03 AM CLIENT REPRESENTATIVE Weakness General PHOSPHORUS (INORGANIC), S Routine 04/09/2023 9:35 AM CLIENT REPRESENTATIVE MAGNESIUM, S Routine 04/09/2023 9:35 AM CLIENT REPRESENTATIVE BASIC METABOLIC PANEL, S/P Routine 04/09/2023 9:35 AM CLIENT REPRESENTATIVE EMG Routine 04/09/2023 6:38 AM CLIENT REPRESENTATIVE SUBCUTANEOUS FAT ASPIRATE Routine 04/09/2023 6:16 AM CLIENT REPRESENTATIVE C. DIFFICILE TOXIN PCR, F Routine 04/08/2023 12:21 PM CLIENT REPRESENTATIVE VASCULAR ENDOTHELIAL GROWTH FCTR, P Routine 04/08/2023 6:23 AM CLIENT REPRESENTATIVE 1,25-DIHYDROXYVITAMIN D, S Routine 04/08/2023 6:23 AM CLIENT REPRESENTATIVE PHOSPHORUS (INORGANIC), S Timed 04/08/2023 6:23 AM CLIENT REPRESENTATIVE MAGNESIUM, S Timed 04/08/2023 6:23 AM CLIENT REPRESENTATIVE BASIC METABOLIC PANEL, S/P Timed 04/08/2023 6:23 AM CLIENT REPRESENTATIVE PHOSPHORUS (INORGANIC), S Timed 04/07/2023 10:06 PM CLIENT REPRESENTATIVE MAGNESIUM, S Timed 04/07/2023 10:06 PM CLIENT REPRESENTATIVE BASIC METABOLIC PANEL, S/P Timed 04/07/2023 10:06 PM CLIENT REPRESENTATIVE PHOSPHORUS (INORGANIC), S Timed 04/07/2023 1:49 PM CLIENT REPRESENTATIVE MAGNESIUM, S Timed 04/07/2023 1:49 PM CLIENT REPRESENTATIVE BASIC METABOLIC PANEL, S/P Timed 04/07/2023 1:49 PM CLIENT REPRESENTATIVE CBC WITH DIFFERENTIAL, B Routine 04/07/2023 6:51 AM CLIENT REPRESENTATIVE PHOSPHORUS (INORGANIC), S Timed 04/07/2023 6:51 AM CLIENT REPRESENTATIVE MAGNESIUM, S Timed 04/07/2023 6:51 AM CLIENT REPRESENTATIVE BASIC METABOLIC PANEL, S/P Timed 04/07/2023 6:51 AM CLIENT REPRESENTATIVE PHOSPHORUS (INORGANIC), S Timed 04/06/2023 10:13 PM CLIENT REPRESENTATIVE MAGNESIUM, S Timed 04/06/2023 10:13 PM CLIENT REPRESENTATIVE BASIC METABOLIC PANEL, S/P Timed 04/06/2023 10:13 PM CLIENT REPRESENTATIVE DX ABDOMEN PORTABLE ANTERIOR POSTERIOR 1 VIEW RAD - Routine (most inpatients and all outpatients) 04/06/2023 3:54 PM CLIENT REPRESENTATIVE COPPER, S Routine 04/06/2023 3:34 PM CLIENT REPRESENTATIVE ZINC, S Routine 04/06/2023 3:34 PM CLIENT REPRESENTATIVE CBC WITH DIFFERENTIAL, B Routine 04/06/2023 3:34 PM CLIENT REPRESENTATIVE MAGNESIUM, S Routine 04/06/2023 3:34 PM CLIENT REPRESENTATIVE BASIC METABOLIC PANEL, S/P Routine 04/06/2023 3:07 PM CLIENT REPRESENTATIVE MR THORACIC SPINE WITHOUT AND WITH IV CONTRAST RAD - Routine (most inpatients and all outpatients) 04/06/2023 2:37 PM CLIENT REPRESENTATIVE PET CT SKULL TO THIGH RAD - Routine (most inpatients and all outpatients) 04/06/2023 1:14 PM CLIENT REPRESENTATIVE [id number] GENE MUTATION ANALYSIS Routine 04/06/2023 12:35 PM CLIENT REPRESENTATIVE WY DX BONE MARROW BX & ASPIR Routine 04/06/2023 9:40 AM CLIENT REPRESENTATIVE Weakness General Hypercalcemia B-CELL LYMPHOMA, SPECIFIED FISH Routine 04/06/2023 9:15 AM CLIENT REPRESENTATIVE MDS BY FLOW CYTOMETRY, BM Routine 04/06/2023 9:15 AM CLIENT REPRESENTATIVE DNA/RNA EXTRACT AND HOLD, B Routine 04/06/2023 9:15 AM CLIENT REPRESENTATIVE MYELOID NEOPLASMS, NGS Routine 9:15 AM CLIENT REPRESENTATIVE CHROMOSOMES, HEMATOLOGIC, BM Routine 04/06/2023 9:15 AM CLIENT REPRESENTATIVE HEMATOPATHOLOGY Routine 04/06/2023 6:11 AM CLIENT REPRESENTATIVE SYPHILIS IGG W/ REFLEX, EIA, S Routine 04/05/2023 3:45 PM CLIENT REPRESENTATIVE METHYLMALONIC ACID (MMA), RICH, S Routine 04/05/2023 3:45 PM CLIENT REPRESENTATIVE IMMUNOGLOBULIN FREE LIGHT CHAINS, S Routine 04/05/2023 3:45 PM CLIENT REPRESENTATIVE IMMUNOGLOBULINS (IGG, IGA, AND IGM), S Routine 04/05/2023 3:45 PM CLIENT REPRESENTATIVE MYELOPATHY, AUTOIMM/PARANEO, SERUM Routine 04/05/2023 3:44 PM CLIENT REPRESENTATIVE PATIENT REGISTRATION REP DEMYELINATING DISEASE EVALUATION Routine 04/05/2023 3:44 PM CLIENT REPRESENTATIVE LACTATE DEHYDROGENASE (LD), S Routine 04/05/2023 3:44 PM CLIENT REPRESENTATIVE FOLATE, S Routine 04/05/2023 3:44 PM CLIENT REPRESENTATIVE THIAMIN (VITAMIN B1), B Routine 04/05/2023 3:43 PM CLIENT REPRESENTATIVE VITAMIN E, S Routine 04/05/2023 3:43 PM CLIENT REPRESENTATIVE VITAMIN B3 AND METABOLITES, P Routine 04/05/2023 3:42 PM CLIENT REPRESENTATIVE RIBOFLAVIN (VITAMIN B2), P Routine 04/05/2023 3:41 PM CLIENT REPRESENTATIVE ASCORBIC ACID (VITAMIN C), P Routine 04/05/2023 3:41 PM CLIENT REPRESENTATIVE LEUKEMIA/LYMPHOMA PHENOTYPE, B Routine 04/05/2023 3:11 PM CLIENT REPRESENTATIVE EBV DNA DETECT/QUANT, P Routine 04/05/2023 3:10 PM CLIENT REPRESENTATIVE MR CERVICAL SPINE WITHOUT AND WITH IV CONTRAST RAD - Routine (most inpatients and all outpatients) 04/05/2023 1:05 PM CLIENT REPRESENTATIVE MR BRAIN WITHOUT AND WITH IV CONTRAST RAD - Routine (most inpatients and all outpatients) 04/05/2023 1:05 PM CLIENT REPRESENTATIVE CBC WITH DIFFERENTIAL, B Routine 04/05/2023 6:52 AM CLIENT REPRESENTATIVE BASIC METABOLIC PANEL, S/P Routine 04/05/2023 6:52 AM CLIENT REPRESENTATIVE ECG Routine 04/04/2023 1:13 PM CLIENT REPRESENTATIVE PROTHROMBIN TIME (PT), P Routine 04/04/2023 8:29 AM CLIENT REPRESENTATIVE CBC WITH DIFFERENTIAL, B Routine 04/04/2023 8:29 AM CLIENT REPRESENTATIVE PARATHYROID HORMONE-RELATED PEPTIDE (PTHRP), P Routine 04/04/2023 8:28 AM CLIENT REPRESENTATIVE ZINC, S Routine 04/04/2023 8:28 AM CLIENT REPRESENTATIVE FOLATE, S Routine 04/04/2023 8:28 AM CLIENT REPRESENTATIVE VITAMIN B12 ASSAY, S Routine 04/04/2023 8:28 AM CLIENT REPRESENTATIVE BASIC METABOLIC PANEL, S/P Routine 04/04/2023 8:28 AM CLIENT REPRESENTATIVE VITAMIN B6 PROF (PLP AND PA), P Routine 04/04/2023 8:27 AM CLIENT REPRESENTATIVE PHOSPHORUS (INORGANIC), S Routine 04/04/2023 8:16 AM CLIENT REPRESENTATIVE MAGNESIUM, S Routine 04/04/2023 8:[address] HEAD WITHOUT IV CONTRAST RAD - Semiurgent (Fast; most ED patients; some inpatients) 04/03/2023 5:38 PM CLIENT REPRESENTATIVE PATIENT STATUS STAT 04/03/2023 4:44 PM CLIENT REPRESENTATIVE VENOUS BLOOD GAS W/COOX, B STAT 04/03/2023 4:44 PM CLIENT REPRESENTATIVE CBC WITH DIFFERENTIAL, B STAT 04/03/2023 4:43 PM CLIENT REPRESENTATIVE BASIC METABOLIC PANEL, S/P STAT 04/03/2023 4:43 PM CLIENT REPRESENTATIVE US ABDOMEN COMPLETE RAD - Routine (most inpatients and all outpatients) 04/03/2023 10:30 AM CLIENT REPRESENTATIVE CBC WITH DIFFERENTIAL, B Routine 04/03/2023 5:45 AM CLIENT REPRESENTATIVE PHOSPHORUS (INORGANIC), S Routine 04/03/2023 5:45 AM CLIENT REPRESENTATIVE MAGNESIUM, S Routine 04/03/2023 5:45 AM CLIENT REPRESENTATIVE BASIC METABOLIC PANEL, S/P Routine 04/03/2023 5:45 AM CLIENT REPRESENTATIVE M-PROTEIN MASS-FIX, RANDOM, U Routine 04/02/2023 4:19 PM CLIENT REPRESENTATIVE ELECTROPHORESIS, PROTEIN, RANDOM, U Routine 04/02/2023 4:19 PM CLIENT REPRESENTATIVE HISTOPLASMA/BLASTOMYCE S AG, EIA, S Routine 04/02/2023 4:14 PM CLIENT REPRESENTATIVE HIV-1/-2 AG AND AB SCREEN, PLASMA Routine 04/02/2023 4:14 PM CLIENT REPRESENTATIVE M-PROTEIN ISOTYPE MALDI-TOF MS, S Routine 04/02/2023 4:14 PM CLIENT REPRESENTATIVE SPSMA RESULT Routine 04/02/2023 4:14 PM CLIENT REPRESENTATIVE HCV AB SCRN W/REFLEX TO HCV PCR, S Routine 04/02/2023 4:14 PM CLIENT REPRESENTATIVE 25-HYDROXYVITAMIN D2 AND D3, S Routine 04/02/2023 4:14 PM CLIENT REPRESENTATIVE RETICULOCYTES, B Routine 04/02/2023 4:14 PM CLIENT REPRESENTATIVE ELECTROPHORESIS, PROTEIN, S Routine 04/02/2023 4:14 PM CLIENT REPRESENTATIVE PHOSPHORUS (INORGANIC), S Routine 04/02/2023 4:14 PM CLIENT REPRESENTATIVE PARATHYROID HORMONE (PTH), S Routine 04/02/2023 4:14 PM CLIENT REPRESENTATIVE MAGNESIUM, S Routine 04/02/2023 4:14 PM CLIENT REPRESENTATIVE COMPREHENSIVE METABOLIC PANEL, S/P Routine 04/02/2023 4:14 PM CLIENT REPRESENTATIVE ECG Routine 04/02/2023 4:09 PM CLIENT REPRESENTATIVE TROPONIN T, 2H/6H, 5TH GEN, P Timed 04/02/2023 12:19 PM CLIENT REPRESENTATIVE HC URINALYSIS AUTO WO MICRO Routine 04/02/2023 11:14 AM CLIENT REPRESENTATIVE INFLUENZA A, B, RSV, PCR, RAPID, V STAT 04/02/2023 10:56 AM CLIENT REPRESENTATIVE SARS CORONAVIRUS 2, PCR RAPID, V STAT 04/02/2023 10:56 AM CLIENT REPRESENTATIVE DIPSTICK, U STAT 04/02/2023 10:54 AM CLIENT REPRESENTATIVE MICROSCOPIC AUTOMATED STAT 04/02/2023 10:54 AM CLIENT REPRESENTATIVE BACTERIAL CULTURE, AEROBIC + SUSC, URINE STAT 04/02/2023 10:54 AM CLIENT REPRESENTATIVE PH, U STAT 04/02/2023 10:54 AM CLIENT REPRESENTATIVE OSMOLALITY, U STAT 04/02/2023 10:54 AM CLIENT REPRESENTATIVE URINALYSIS WITH MICROSCOPIC STAT 04/02/2023 10:54 AM CLIENT REPRESENTATIVE BACTERIA / RENAE CULTURE, BLOOD STAT 04/02/2023 10:52 AM CLIENT REPRESENTATIVE LACTATE FOR SEPSIS WITH REFLEX STAT 04/02/2023 10:45 AM CLIENT REPRESENTATIVE BACTERIA / RENAE CULTURE, BLOOD STAT 04/02/2023 10:45 AM CLIENT REPRESENTATIVE TROPONIN T, BASELINE, 5TH GEN, P STAT 04/02/2023 10:10 AM CLIENT REPRESENTATIVE CBC WITH DIFFERENTIAL, B STAT 04/02/2023 10:10 AM CLIENT REPRESENTATIVE THYROID-STIMULATING HORMONE-SENSITIVE (S-TSH) STAT 04/02/2023 10:10 AM CLIENT REPRESENTATIVE BASIC METABOLIC PANEL, S/P STAT 04/02/2023 10:10 AM CLIENT REPRESENTATIVE documented in this encounter Results * (ABNORMAL) CBC, Chemotherapy, No Alerts (05/04/2023 8:27 AM CLIENT REPRESENTATIVE) Pathologist [facility] Hemoglobin 12.1 11.6 - 15.0 g/dL 05/04/2023 9:04 AM CLIENT REPRESENTATIVE DTL Platelet Count 124(L) 157 - 371 x10(9)/L 05/04/2023 9:04 AM CLIENT REPRESENTATIVE DTL Leukocytes 3.9 3.4 - 9.6 x10(9)/L 05/04/2023 9:04 AM CLIENT REPRESENTATIVE DTL Neutrophils 1.72 1.56 - 6.45 x10(9)/L 05/04/2023 9:04 AM CLIENT REPRESENTATIVE [facility] Blood (Blood, Venous) 05/04/2023 8:27 AM CLIENT REPRESENTATIVE 05/04/2023 8:46 AM CLIENT REPRESENTATIVE Samir Laureano M.D. LAB BLOOD ADD-ON [facility] [address] [place] [address], [facility] DTL [facility] [place] [address] [place], [place] [id number] [place] [address] 200 [place] [address] * (ABNORMAL) CBC, Chemotherapy, No Alerts (04/27/2023 8:35 AM CLIENT REPRESENTATIVE) Hemoglobin 10.8(L) 11.6 - 15.0 g/dL 04/27/2023 9:06 AM CLIENT REPRESENTATIVE DTL Platelet Count 175 157 - 371 x10(9)/L 04/27/2023 9:06 AM CLIENT REPRESENTATIVE DTL Leukocytes 4.2 3.4 - 9.6 x10(9)/L 04/27/2023 9:06 AM CLIENT REPRESENTATIVE DTL Neutrophils 2.26 1.56 - 6.45 x10(9)/L 04/27/2023 9:06 AM CLIENT REPRESENTATIVE [facility] Blood (Blood, Venous) 04/27/2023 8:35 AM CLIENT REPRESENTATIVE 04/27/2023 8:58 AM CLIENT REPRESENTATIVE Samir Laureano M.D. LAB BLOOD ADD-ON Performing Organization Address [facility] de Phone Number [facility] [address] [place] [address], [facility] DTL [facility] [place] [address] [place] [address] [facility] [address] [place] [address] * VRE PCR (04/23/2023 7:53 AM CLIENT REPRESENTATIVE) Specimen Source Swab, Perianal 04/23/2023 10:13 PM CLIENT REPRESENTATIVE DTL VRE PCR Negative Negative 04/23/2023 10:13 PM CLIENT REPRESENTATIVE DTL Comment: ----ADDITIONAL INFORMATION---- This test was developed using an analyte specific reagent. Its performance characteristics were determined by [facility] in a manner consistent with CLIA requirements. This test has not been cleared or approved by the U.S. Food and Drug Administration. Swab (Perianal) 04/23/2023 7 :53 AM CLIENT REPRESENTATIVE 04/23/2023 8:43 AM CLIENT REPRESENTATIVE Santiago Mejía M.D., M.S. LAB MICROBIOLO GY - GENERAL ORDERABLES Performing Organization Address [facility] de Phone Number [facility] [address] [place] [address], [facility] DTL 200 [facility] 200 [place] [address] * Calcium, Ionized (04/23/2023 7:28 AM CLIENT REPRESENTATIVE) Calcium, Ionized, S 5.01 4.57 - 5.43 mg/dL 04/23/2023 8:07 AM CLIENT REPRESENTATIVE DTL Comment: ----ADDITIONAL INFORMATION---- This test has been modified from the computer technical support specialist's instructions. Its performance characteristics were determined by [facility] in a manner consistent with CLIA requirements. This test has not been cleared or approved by the U.S. Food and Drug Administration. pH for Ionized Calcium 7.44 7.35 - 7.48 04/23/2023 8:07 AM CLIENT REPRESENTATIVE DTL Blood (Blood, Venous) 04/23/2023 7:28 AM CLIENT REPRESENTATIVE 04/23/2023 7:51 AM CLIENT REPRESENTATIVE Claudette Izaguirre M.D. LAB BLOOD NON ADD -ON [facility] [address] [place] [address], [facility] DTL [facility] [address] [place] [address] * (ABNORMAL) Basic Metabolic Panel (04/23/2023 7:27 AM CLIENT REPRESENTATIVE) Potassium, S 4.2 3.6 - 5.2 mmol/L 04/23/2023 8:21 AM CLIENT REPRESENTATIVE DTL Sodium, S 140 135 - 145 mmol/L 04/23/2023 8:21 AM CLIENT REPRESENTATIVE DTL Chloride, S 104 98 - 107 mmol/L 04/23/2023 8:21 AM CLIENT REPRESENTATIVE DTL Bicarbonate, S 25 22 - 29 mmol/L 04/23/2023 8:21 AM CLIENT REPRESENTATIVE DTL Anion Gap 11 7 - 15 04/23/2023 8:21 AM CLIENT REPRESENTATIVE DTL BUN (Blood Urea Nitrogen), S 24(H) 6 - 21 mg/dL 04/23/2023 8:21 AM CLIENT REPRESENTATIVE DTL Creatinine 1.05(H) 0.59 - 1.04 mg/dL 04/23/2023 8:21 AM CLIENT REPRESENTATIVE DTL Estimated GFR (eGFR) 53(L) >=60 mL/min/BSA 04/23/2023 8:21 AM CLIENT REPRESENTATIVE DTL Comment: Estimated GFR calculated using the 2020 CKD_EPI creatinine equation. Calcium, Total, S 9.0 8.8 - 10.2 mg/dL 04/23/2023 8:21 AM CLIENT REPRESENTATIVE DTL Glucose, S 101 70 - 140 mg/dL 04/23/2023 8:21 AM CLIENT REPRESENTATIVE DTL Blood (Blood, Venous) 04/23/2023 7:27 AM CLIENT REPRESENTATIVE 04/23/2023 7:51 AM CLIENT REPRESENTATIVE Claudette Izaguirre M.D. LAB BLOOD ADD-ON [facility] [address] [place] [address], [facility] DTL [facility] [place] [address] [place] [address] * (ABNORMAL) CBC no call back, reflex T/S HGB <8 (04/23/2023 7:27 AM CLIENT REPRESENTATIVE) Pathologist [facility] Hemoglobin 9.6(L) 11.6 - 15.0 g/dL 04/23/2023 7:58 AM CLIENT REPRESENTATIVE DTL Hematocrit 29.8(L) 35.5 - 44.9 % 04/23/2023 7:58 AM CLIENT REPRESENTATIVE DTL Erythrocytes 2.98(L) 3.92 - 5.13 x10(12)/L 04/23/2023 7:58 AM CLIENT REPRESENTATIVE DTL MCV 100.0(H) 78.2 - 97.9 fL 04/23/2023 7:58 AM CLIENT REPRESENTATIVE DTL RBC Distrib Width 16.5(H) 12.2 - 16.1 % 04/23/2023 7:58 AM CLIENT REPRESENTATIVE DTL Platelet Count 134(L) 157 - 371 x10(9)/L 04/23/2023 7:58 AM CLIENT REPRESENTATIVE DTL Leukocytes 3.1(L) 3.4 - 9.6 x10(9)/L 04/23/2023 7:58 AM CLIENT REPRESENTATIVE DTL Neutrophils 1.09(L) 1.56 - 6.45 x10(9)/L 04/23/2023 7:58 AM CLIENT REPRESENTATIVE DHPM Lymphocytes 1.72 0.95 - 3.07 x10(9)/L 04/23/2023 7:58 AM CLIENT REPRESENTATIVE DTL Monocytes 0.19(L) 0.26 - 0.81 x10(9)/L 04/23/2023 7:58 AM CLIENT REPRESENTATIVE DTL Eosinophils 0.07 0.03 - 0.48 x10(9)/L 04/23/2023 7:58 AM CLIENT REPRESENTATIVE DTL Basophils <0.03 0.01 - 0.08 x10(9)/L 04/23/2023 7:58 AM CLIENT REPRESENTATIVE DTL Blood (Blood, Venous) 04/23/2023 7:27 AM CLIENT REPRESENTATIVE 04/23/2023 7:43 AM CLIENT REPRESENTATIVE Claudette Izaguirre M.D. LAB BLOOD NON ADD -ON Performing Organization Address City/[facility] Co de Phone Number [facility] [address] [place] [address], [facility] 200 [place], [place] [id number] [place] [address] 200 [place] [address] * (ABNORMAL) Calcium, Ionized (04/22/2023 6:20 AM CLIENT REPRESENTATIVE) Calcium, Ionized, S 5.05 4.57 - 5.43 mg/dL 04/22/2023 7:18 AM CLIENT REPRESENTATIVE DT Comment: ----ADDITIONAL INFORMATION---- This test has been modified from the computer technical support specialist's instructions. Its performance characteristics were determined by [facility] in a manner consistent with CLIA requirements. This test has not been cleared or approved by the U.S. Food and Drug Administration. pH for Ionized Calcium 7.49(H) 7.35 - 7.48 04/22/2023 7:18 AM CLIENT REPRESENTATIVE DTL Blood (Blood, Venous) 04/22/2023 6:20 AM CLIENT REPRESENTATIVE 04/22/2023 7:02 AM CLIENT REPRESENTATIVE Claudette Izaguirre M.D. LAB BLOOD NON ADD -ON Performing Organization Address City/[facility]/ZIP Co de Phone Number [facility] [address] [place], [place] [address] [address] [place] [address] * (ABNORMAL) Basic Metabolic Panel (04/22/2023 6:20 AM CLIENT REPRESENTATIVE) Potassium, S 4.2 3.6 - 5.2 mmol/L 04/22/2023 7:21 AM CLIENT REPRESENTATIVE DTL Sodium, S 139 135 - 145 mmol/L 04/22/2023 7:21 AM CLIENT REPRESENTATIVE DTL Chloride, S 105 98 - 107 mmol/L 04/22/2023 7:21 AM CLIENT REPRESENTATIVE DTL Bicarbonate, S 25 22 - 29 mmol/L 04/22/2023 7:21 AM CLIENT REPRESENTATIVE DTL Anion Gap 9 7 - 15 04/22/2023 7:21 AM CLIENT REPRESENTATIVE DTL BUN (Blood Urea Nitrogen), S 25(H) 6 - 21 mg/dL 04/22/2023 7:21 AM CLIENT REPRESENTATIVE DTL Creatinine 1.03 0.59 - 1.04 mg/dL 04/22/2023 7:21 AM CLIENT REPRESENTATIVE DTL Estimated GFR (eGFR) 55(L) >=60 mL/min/BSA 04/22/2023 7:21 AM CLIENT REPRESENTATIVE DTL Comment: Estimated GFR calculated using the 2020 CKD_EPI creatinine equation. Calcium, Total, S 8.8 8.8 - 10.2 mg/dL 04/22/2023 7:21 AM CLIENT REPRESENTATIVE DTL Glucose, S 101 70 - 140 mg/dL 04/22/2023 7:21 AM CLIENT REPRESENTATIVE DTL Blood (Blood, Venous) 04/22/2023 6:20 AM CLIENT REPRESENTATIVE 04/22/2023 7:03 AM CLIENT REPRESENTATIVE Claudette Izaguirre M.D. LAB BLOOD ADD-ON [address] [address], [address] [address] * (ABNORMAL) CBC no call back, reflex T/S HGB <8 (04/22/2023 6:20 AM CLIENT REPRESENTATIVE) Hemoglobin 8.3(L) 11.6 - 15.0 g/dL 04/22/2023 7:00 AM CLIENT REPRESENTATIVE DTL Hematocrit 25.8(L) 35.5 - 44.9 % 04/22/2023 7:00 AM CLIENT REPRESENTATIVE DTL Erythrocytes 2.57(L) 3.92 - 5.13 x10(12)/L 04/22/2023 7:00 AM CLIENT REPRESENTATIVE DTL MCV 100.4(H) 78.2 - 97.9 fL 04/22/2023 7:00 AM CLIENT REPRESENTATIVE DTL RBC Distrib Width 16.3(H) 12.2 - 16.1 % 04/22/2023 7:00 AM CLIENT REPRESENTATIVE DTL Platelet Count 112(L) 157 - 371 x10(9)/L 04/22/2023 7:00 AM CLIENT REPRESENTATIVE DTL Leukocytes 2.8(L) 3.4 - 9.6 x10(9)/L 04/22/2023 7:00 AM CLIENT REPRESENTATIVE DTL Neutrophils 0.88(L) 1.56 - 6.45 x10(9)/L 04/22/2023 7:28 AM CLIENT REPRESENTATIVE [facility] Lymphocytes 1.61 0.95 - 3.07 x10(9)/L 04/22/2023 7:28 AM CLIENT REPRESENTATIVE DTL Monocytes 0.25(L) 0.26 - 0.81 x10(9)/L 04/22/2023 7:28 AM CLIENT REPRESENTATIVE DTL Eosinophils 0.08 0.03 - 0.48 x10(9)/L 04/22/2023 7:28 AM CLIENT REPRESENTATIVE DTL Basophils <0.03 0.01 - 0.08 x10(9)/L 04/22/2023 7:28 AM CLIENT REPRESENTATIVE DTL Blood (Blood, Venous) 04/22/2023 6:20 AM CLIENT REPRESENTATIVE 04/22/2023 6:53 AM CLIENT REPRESENTATIVE Claudette Izaguirre M.D. LAB BLOOD NON ADD -ON Performing Organization Address City/State/[facility] Co de Phone Number [facility] [address] [place] [address], [facility] DTL [facility] [address] [place], [place] [phone] [place] [address] 200 [place] [address] * (ABNORMAL) Albumin (04/22/2023 6:20 AM CLIENT REPRESENTATIVE) Albumin, S 3.4(L) 3.5 - 5.0 g/dL 04/22/2023 7:21 AM CLIENT REPRESENTATIVE DTL Blood (Blood, Venous) 04/22/2023 6:20 AM CLIENT REPRESENTATIVE 04/22/2023 7:03 AM CLIENT REPRESENTATIVE Claudette J Dmitriy M.D. LAB BLOOD ADD-ON Performing Organization Address City/[facility]/ZIP Co de Phone Number [facility] [address] [place], [place] [phone] [place] [address] 200 [place] [address] * (ABNORMAL) Cystatin C with Estimated GFR (04/22/2023 6:20 AM CLIENT REPRESENTATIVE) eGFR by Cystatin C 27(L) >60 mL/min/BSA 04/22/2023 7:21 AM CLIENT REPRESENTATIVE DTL Comment: Estimated GFR calculated using the [...] 0.67 - 1.21 mg/L 04/22/2023 7:21 AM CLIENT REPRESENTATIVE DTL Blood (Blood, Venous) 04/22/2023 6:20 AM CLIENT REPRESENTATIVE 04/22/2023 7:03 AM CLIENT REPRESENTATIVE Claudette Izaguirre M.D. LAB BLOOD ADD-ON [facility] [address] [place] [address], [facility] [address] [place] [address] * ECG 12 Lead (04/21/2023 10:47 AM CLIENT REPRESENTATIVE) Ventricular Rate ECG/Min 81 BPM MUSE W[place] Interval 146 ms MUSE QRSD Interval 74 ms MUSE QT Interval 356 ms MUSE QTC Interval 413 ms MUSE P [place] 27 degrees MUSE R [place] -17 degrees MUSE T Wave [place] 24 degrees MUSE 04/21/2023 10:4 7 AM CLIENT REPRESENTATIVE 04/23/2023 8:51 AM CLIENT REPRESENTATIVE Impressions MUSE - 04/21/2023 10:53 AM CLIENT REPRESENTATIVE Sinus rhythm Premature ventricular and fusion complexes [...] Izaguirre M.D. ECG ORDERABLES MUSE NA * (ABNORMAL) CBC no call back, reflex T/S HGB <8 (04/21/2023 6:39 AM CLIENT REPRESENTATIVE) Hemoglobin 8.0(L) 11.6 - 15.0 g/dL 04/21/2023 6:57 AM CLIENT REPRESENTATIVE DTL Hematocrit 24.7(L) 35.5 - 44.9 % 04/21/2023 6:57 AM CLIENT REPRESENTATIVE DTL Erythrocytes 2.48(L) 3.92 - 5.13 x10(12)/L 04/21/2023 6:57 AM CLIENT REPRESENTATIVE DTL MCV 99.6(H) 78.2 - 97.9 fL 04/21/2023 6:57 AM CLIENT REPRESENTATIVE DTL RBC Distrib Width 16.3(H) 12.2 - 16.1 % 04/21/2023 6:57 AM CLIENT REPRESENTATIVE DTL Platelet Count 104(L) 157 - 371 x10(9)/L 04/21/2023 6:57 AM CLIENT REPRESENTATIVE DTL Leukocytes 2.7(L) 3.4 - 9.6 x10(9)/L 04/21/2023 6:57 AM CLIENT REPRESENTATIVE DTL Neutrophils 1.08(L) 1.56 - 6.45 x10(9)/L 04/21/2023 6:57 AM CLIENT REPRESENTATIVE [facility] Lymphocytes 1.40 0.95 - 3.07 x10(9)/L 04/21/2023 6:57 AM CLIENT REPRESENTATIVE DTL Monocytes 0.17(L) 0.26 - 0.81 x10(9)/L 04/21/2023 6:57 AM CLIENT REPRESENTATIVE DTL Eosinophils 0.07 0.03 - 0.48 x10(9)/L 04/21/2023 6:57 AM CLIENT REPRESENTATIVE DTL Basophils <0.03 0.01 - 0.08 x10(9)/L 04/21/2023 6:57 AM CLIENT REPRESENTATIVE DTL Blood (Blood, Venous) 04/21/2023 6:39 AM CLIENT REPRESENTATIVE 04/21/2023 6:50 AM CLIENT REPRESENTATIVE Kyleigh Swan M.D. LAB BLOOD NON ADD-ON [facility] [address] [place] [address], [facility] DTL [facility] [address] [place] [address] * (ABNORMAL) Cystatin C with Estimated GFR (04/21/2023 6:39 AM CLIENT REPRESENTATIVE) [facility] eGFR by Cystatin C 29(L) >60 mL/min/BSA 04/21/2023 7:23 AM CLIENT REPRESENTATIVE DTL Comment: Estimated GFR calculated using the [...] lower with the new assay. Cystatin C 1.88(H) 0.67 - 1.21 mg/L 04/21/2023 7:23 AM CLIENT REPRESENTATIVE DTL Blood (Blood, Venous) 04/21/2023 6:39 AM CLIENT REPRESENTATIVE 04/21/2023 7:05 AM CLIENT REPRESENTATIVE Kyleigh Swan M.D. LAB BLOOD ADD-ON [facility] [address] [place] [address], [facility] [address] [place] [address] * (ABNORMAL) Basic Metabolic Panel (04/21/2023 6:39 AM CLIENT REPRESENTATIVE) Pathologist [facility] Potassium, S 4.1 3.6 - 5.2 mmol/L 04/21/2023 7:23 AM CLIENT REPRESENTATIVE DTL Sodium, S 141 135 - 145 mmol/L 04/21/2023 7:23 AM CLIENT REPRESENTATIVE DTL Chloride, S 108(H) 98 - 107 mmol/L 04/21/2023 7:23 AM CLIENT REPRESENTATIVE DTL Bicarbonate, S 24 22 - 29 mmol/L 04/21/2023 7:23 AM CLIENT REPRESENTATIVE DTL Anion Gap 9 7 - 15 04/21/2023 7:23 AM CLIENT REPRESENTATIVE DTL BUN (Blood Urea Nitrogen), S 17 6 - 21 mg/dL 04/21/2023 7:23 AM CLIENT REPRESENTATIVE DTL Creatinine 0.92 0.59 - 1.04 mg/dL 04/21/2023 7:23 AM CLIENT REPRESENTATIVE DTL Estimated GFR (eGFR) 63 >=60 mL/min/BSA 04/21/2023 7:23 AM CLIENT REPRESENTATIVE DTL Comment: Estimated GFR calculated using the 2020 CKD_EPI creatinine equation. Calcium, Total, S 8.3(L) 8.8 - 10.2 mg/dL 04/21/2023 7:23 AM CLIENT REPRESENTATIVE DTL Glucose, S 96 70 - 140 mg/dL 04/21/2023 7:23 AM CLIENT REPRESENTATIVE DTL Blood (Blood, Venous) 04/21/2023 6:39 AM CLIENT REPRESENTATIVE 04/21/2023 7:05 AM CLIENT REPRESENTATIVE Sasha Alcala M.D. LAB BLOOD ADD-ON [facility] [address] [place] [address], [place] DTL [facility] [address] [place] [address] * (ABNORMAL) Calcium, Ionized (04/20/2023 6:23 AM CLIENT REPRESENTATIVE) Calcium, Ionized, S 4.77 4.57 - 5.43 mg/dL 04/20/2023 7:18 AM CLIENT REPRESENTATIVE DTL Comment: ----ADDITIONAL INFORMATION---- This test has been modified from the computer technical support specialist's instructions. Its performance characteristics were determined by [facility] in a manner consistent with CLIA requirements. This test has not been cleared or approved by the U.S. Food and Drug Administration. pH for Ionized Calcium 7.53(H) 7.35 - 7.48 04/20/2023 7:18 AM CLIENT REPRESENTATIVE DTL Blood (Blood, Venous) 04/20/2023 6:23 AM CLIENT REPRESENTATIVE 04/20/2023 6:50 AM CLIENT REPRESENTATIVE Sasha Alcala M.D. LAB BLOOD NON ADD -ON [place] [address] [place] [address], [facility] [place] [address] [place] [address] * (ABNORMAL) Basic Metabolic Panel (04/20/2023 6:23 AM CLIENT REPRESENTATIVE) Potassium, S 3.8 3.6 - 5.2 mmol/L 04/20/2023 7:12 AM CLIENT REPRESENTATIVE DTL Sodium, S 141 135 - 145 mmol/L 04/20/2023 7:12 AM CLIENT REPRESENTATIVE DTL Chloride, S 108(H) 98 - 107 mmol/L 04/20/2023 7:12 AM CLIENT REPRESENTATIVE DTL Bicarbonate, S 25 22 - 29 mmol/L 04/20/2023 7:12 AM CLIENT REPRESENTATIVE DTL Anion Gap 8 7 - 15 04/20/2023 7:12 AM CLIENT REPRESENTATIVE DTL BUN (Blood Urea Nitrogen), S 22(H) 6 - 21 mg/dL 04/20/2023 7:12 AM CLIENT REPRESENTATIVE DTL Creatinine 0.89 0.59 - 1.04 mg/dL 04/20/2023 7:12 AM CLIENT REPRESENTATIVE DTL Estimated GFR (eGFR) 65 >=60 mL/min/BSA 04/20/2023 7:12 AM CLIENT REPRESENTATIVE DTL Comment: Estimated GFR calculated using the 2020 CKD_EPI creatinine equation. Calcium, Total, S 8.6(L) 8.8 - 10.2 mg/dL 04/20/2023 7:12 AM CLIENT REPRESENTATIVE DTL Glucose, S 95 70 - 140 mg/dL 04/20/2023 7:12 AM CLIENT REPRESENTATIVE DTL Blood (Blood, Venous) 04/20/2023 6:23 AM CLIENT REPRESENTATIVE 04/20/2023 6:49 AM CLIENT REPRESENTATIVE Sasha Alcala M.D. LAB BLOOD ADD-ON [facility] [address] [place], [place] [phone] [place] [address] * (ABNORMAL) Calcium, Ionized (04/19/2023 7:54 AM CLIENT REPRESENTATIVE) Calcium, Ionized, S 4.85 4.57 - 5.43 mg/dL 04/19/2023 8:44 AM CLIENT REPRESENTATIVE DTL Comment: ----ADDITIONAL INFORMATION---- This test has been modified from the computer technical support specialist's instructions. Its performance characteristics were determined by [facility] in a manner consistent with CLIA requirements. This test has not been cleared or approved by the U.S. Food and Drug Administration. pH for Ionized Calcium 7.52(H) 7.35 - 7.48 04/19/2023 8:44 AM CLIENT REPRESENTATIVE DTL Blood (Blood, Venous) 04/19/2023 7:54 AM CLIENT REPRESENTATIVE 04/19/2023 8:30 AM CLIENT REPRESENTATIVE Sasha Alcala M.D. LAB BLOOD NON ADD -ON [facility] [address] [place], [place] [phone] [place] [address] 200 [place] [address] * (ABNORMAL) CBC no call back, reflex T/S HGB <8 (04/19/2023 7:54 AM CLIENT REPRESENTATIVE) Hemoglobin 8.3(L) 11.6 - 15.0 g/dL 04/19/2023 8:21 AM CLIENT REPRESENTATIVE DTL Hematocrit 25.3(L) 35.5 - 44.9 % 04/19/2023 8:21 AM CLIENT REPRESENTATIVE DTL Erythrocytes 2.56(L) 3.92 - 5.13 x10(12)/L 04/19/2023 8:21 AM CLIENT REPRESENTATIVE DTL MCV 98.8(H) 78.2 - 97.9 fL 04/19/2023 8:21 AM CLIENT REPRESENTATIVE DTL RBC Distrib Width 15.9 12.2 - 16.1 % 04/19/2023 8:21 AM CLIENT REPRESENTATIVE DTL Platelet Count 86(L) 157 - 371 x10(9)/L 04/19/2023 8:21 AM CLIENT REPRESENTATIVE DTL Leukocytes 3.1(L) 3.4 - 9.6 x10(9)/L 04/19/2023 8:21 AM CLIENT REPRESENTATIVE DTL Neutrophils 1.12(L) 1.56 - 6.45 x10(9)/L 04/19/2023 8:21 AM CLIENT REPRESENTATIVE [facility] Lymphocytes 1.66 0.95 - 3.07 x10(9)/L 04/19/2023 8:21 AM CLIENT REPRESENTATIVE DTL Monocytes 0.22(L) 0.26 - 0.81 x10(9)/L 04/19/2023 8:21 AM CLIENT REPRESENTATIVE DTL Eosinophils 0.08 0.03 - 0.48 x10(9)/L 04/19/2023 8:21 AM CLIENT REPRESENTATIVE DTL Basophils <0.03 0.01 - 0.08 x10(9)/L 04/19/2023 8:21 AM CLIENT REPRESENTATIVE DTL Blood (Blood, Venous) 04/19/2023 7:54 AM CLIENT REPRESENTATIVE 04/19/2023 8:12 AM CLIENT REPRESENTATIVE Sasha Alcala M.D. LAB BLOOD NON ADD -ON [facility] [address] [place] [address], [facility] DTL [facility] [address] [place] [address] DHPM [facility] [address] [place] [address] * (ABNORMAL) Basic Metabolic Panel (04/19/2023 7:54 AM CLIENT REPRESENTATIVE) Potassium, S 3.5(L) 3.6 - 5.2 mmol/L 04/19/2023 8:51 AM CLIENT REPRESENTATIVE DTL Sodium, S 141 135 - 145 mmol/L 04/19/2023 8:51 AM CLIENT REPRESENTATIVE DTL Chloride, S 106 98 - 107 mmol/L 04/19/2023 8:51 AM CLIENT REPRESENTATIVE DTL Bicarbonate, S 27 22 - 29 mmol/L 04/19/2023 8:51 AM CLIENT REPRESENTATIVE DTL Anion Gap 8 7 - 15 04/19/2023 8:51 AM CLIENT REPRESENTATIVE DTL BUN (Blood Urea Nitrogen), S 23(H) 6 - 21 mg/dL 04/19/2023 8:51 AM CLIENT REPRESENTATIVE DTL Creatinine 0.89 0.59 - 1.04 mg/dL 04/19/2023 8:51 AM CLIENT REPRESENTATIVE DTL Estimated GFR (eGFR) 65 >=60 mL/min/BSA 04/19/2023 8:51 AM CLIENT REPRESENTATIVE DTL Comment: Estimated GFR calculated using the 2020 CKD_EPI creatinine equation. Calcium, Total, S 8.6(L) 8.8 - 10.2 mg/dL 04/19/2023 8:51 AM CLIENT REPRESENTATIVE DTL Glucose, S 100 70 - 140 mg/dL 04/19/2023 8:51 AM CLIENT REPRESENTATIVE DTL Blood (Blood, Venous) 04/19/2023 7:54 AM CLIENT REPRESENTATIVE 04/19/2023 8:31 AM CLIENT REPRESENTATIVE Sasha Alcala M.D. LAB BLOOD ADD-ON [facility] [address] [place] [address], [facility] [address] [place] [address] * Type and Screen (with Reflex Antibody ID) (04/18/2023 12:47 AM CLIENT REPRESENTATIVE) Pathologist [facility] ABORh O Pos Not applicable 04/18/2023 3:00 AM CLIENT REPRESENTATIVE ETRM Antibody Screen Negative Negative 04/18/2023 3:15 AM CLIENT REPRESENTATIVE ETRM Type & Screen Expiration 04/21/2023 23:59 04/18/2023 3:00 AM CLIENT REPRESENTATIVE ETRM Testing Location [facility] DEFAULT 04/18/2023 2:34 AM CLIENT REPRESENTATIVE ETRM Blood 04/18/2023 12:4 7 AM CLIENT REPRESENTATIVE 04/18/2023 2:34 AM CLIENT REPRESENTATIVE Vitor Casas P.A.-C., M.S. LAB BLOOD BANK TEST ORDERABLES Performing Organization Address [facility] Co de Phone Number [facility] [address] [place] [address], [facility] ETRM [facility] [place] [address] [place] [address] * (ABNORMAL) Calcium, Ionized (04/18/2023 12:47 AM CLIENT REPRESENTATIVE) Calcium, Ionized, S 4.97 4.57 - 5.43 mg/dL 04/18/2023 1:18 AM CLIENT REPRESENTATIVE DTL Comment: ----ADDITIONAL INFORMATION---- This test has been modified from the computer technical support specialist's instructions. Its performance characteristics were determined by [facility] in a manner consistent with CLIA requirements. This test has not been cleared or approved by the U.S. Food and Drug Administration. pH for Ionized Calcium 7.52(H) 7.35 - 7.48 04/18/2023 1:18 AM CLIENT REPRESENTATIVE DTL Blood (Blood, Venous) 04/18/2023 12:47 AM CLIENT REPRESENTATIVE 04/18/2023 1:06 AM CLIENT REPRESENTATIVE Sasha Alcala M.D. LAB BLOOD NON ADD -ON Performing Organization Address City/[facility]/ZIP Co de Phone Number [facility] [address] [place] [address], [facility] DTL [facility] [place] [address] [place] [address] * (ABNORMAL) Basic Metabolic Panel (04/18/2023 12:47 AM CLIENT REPRESENTATIVE) Potassium, S 3.7 3.6 - 5.2 mmol/L 04/18/2023 1:29 AM CLIENT REPRESENTATIVE DTL Sodium, S 139 135 - 145 mmol/L 04/18/2023 1:29 AM CLIENT REPRESENTATIVE DTL Chloride, S 106 98 - 107 mmol/L 04/18/2023 1:29 AM CLIENT REPRESENTATIVE DTL Bicarbonate, S 27 22 - 29 mmol/L 04/18/2023 1:29 AM CLIENT REPRESENTATIVE DTL Anion Gap 6(L) 7 - 15 04/18/2023 1:29 AM CLIENT REPRESENTATIVE DTL BUN (Blood Urea Nitrogen), S 21 6 - 21 mg/dL 04/18/2023 1:29 AM CLIENT REPRESENTATIVE DTL Creatinine 0.89 0.59 - 1.04 mg/dL 04/18/2023 1:29 AM CLIENT REPRESENTATIVE DTL Estimated GFR (eGFR) 65 >=60 mL/min/BSA 04/18/2023 1:29 AM CLIENT REPRESENTATIVE DTL Comment: Estimated GFR calculated using the 2020 CKD_EPI creatinine equation. Calcium, Total, S 8.8 8.8 - 10.2 mg/dL 04/18/2023 1:29 AM CLIENT REPRESENTATIVE DTL Glucose, S 107 70 - 140 mg/dL 04/18/2023 1:29 AM CLIENT REPRESENTATIVE DTL Blood (Blood, Venous) 04/18/2023 12:47 AM CLIENT REPRESENTATIVE 04/18/2023 1:06 AM CLIENT REPRESENTATIVE Sasha Alcala M.D. LAB BLOOD ADD-ON [facility] [address] [place] [address], [facility] [address] [place] [address] * (ABNORMAL) CBC no call back, reflex T/S HGB <8 (04/18/2023 12:47 AM CLIENT REPRESENTATIVE) Hemoglobin 7.8(L) 11.6 - 15.0 g/dL 04/18/2023 1:05 AM CLIENT REPRESENTATIVE DTL Hematocrit 23.7(L) 35.5 - 44.9 % 04/18/2023 1:05 AM CLIENT REPRESENTATIVE DTL Erythrocytes 2.42(L) 3.92 - 5.13 x10(12)/L 04/18/2023 1:05 AM CLIENT REPRESENTATIVE DTL MCV 97.9 78.2 - 97.9 fL 04/18/2023 1:05 AM CLIENT REPRESENTATIVE DTL RBC Distrib Width 15.6 12.2 - 16.1 % 04/18/2023 1:05 AM CLIENT REPRESENTATIVE DTL Platelet Count 73(L) 157 - 371 x10(9)/L 04/18/2023 1:05 AM CLIENT REPRESENTATIVE DTL Leukocytes 2.8(L) 3.4 - 9.6 x10(9)/L 04/18/2023 1:05 AM CLIENT REPRESENTATIVE DTL Neutrophils 0.97(L) 1.56 - 6.45 x10(9)/L 04/18/2023 2:03 AM CLIENT REPRESENTATIVE DHPM Lymphocytes 1.63 0.95 - 3.07 x10(9)/L 04/18/2023 2:03 AM CLIENT REPRESENTATIVE DTL Monocytes 0.19(L) 0.26 - 0.81 x10(9)/L 04/18/2023 2:03 AM CLIENT REPRESENTATIVE DTL Eosinophils 0.04 0.03 - 0.48 x10(9)/L 04/18/2023 2:03 AM CLIENT REPRESENTATIVE DTL Basophils <0.03 0.01 - 0.08 x10(9)/L 04/18/2023 2:03 AM CLIENT REPRESENTATIVE DTL Blood (Blood, Venous) 04/18/2023 12:47 AM CLIENT REPRESENTATIVE 04/18/2023 12:56 AM CLIENT REPRESENTATIVE Vitor Casas P.A.-C., M.S. LAB BLOOD NON ADD-ON [facility] [address] [place] [address], [facility] DTL [facility] [place] [address] [place] [address] [facility] [address] [place] [address] * DX Abdomen Portable Anterior Posterior 1 View (04/17/2023 11:59 AM CLIENT REPRESENTATIVE) Anatomical Region Laterality Modality Abdomen, Abdominal RST LOS, Abdominal ARZ LOS, Abdominal FLA LOS N/A Digital Radiography Impressions 04/17/2023 12:10 PM CLIENT REPRESENTATIVE NG tube tip in distal stomach. Normal bowel gas pattern. Splenomegaly. Surgical clips left axilla. Narrative 04/17/2023 12:10 PM CLIENT REPRESENTATIVE EXAM: ??DX ABDOMEN PORTABLE ANTERIOR POSTERIOR 1 VIEW Procedure Note Dave Gage M.D. - 04/17/2023 EXAM: DX ABDOMEN PORTABLE ANTERIOR POSTERIOR 1 VIEW IMPRESSION: NG tube tip in distal stomach. Normal bowel gas pattern. Splenomegaly.Surgical clips left axilla. Priyanka Murphy M.D. IMG DIAGNOSTIC IMAGI NG PROCEDURES * (ABNORMAL) Cystatin C with Estimated GFR (04/17/2023 12:38 AM CLIENT REPRESENTATIVE) eGFR by Cystatin C 29(L) >60 mL/min/BSA 04/17/2023 1:22 AM CLIENT REPRESENTATIVE DTL Comment: Estimated GFR calculated using the [...] lower with the new assay. Cystatin C 1.86(H) 0.67 - 1.21 mg/L 04/17/2023 1:22 AM CLIENT REPRESENTATIVE DTL Blood (Blood, Venous) 04/17/2023 12:38 AM CLIENT REPRESENTATIVE 04/17/2023 1:04 AM CLIENT REPRESENTATIVE Sasha Alcala M.D. LAB BLOOD ADD-ON [facility] [address] [place] [address], [place] DTL [facility] [place] [address] [place] [address] * (ABNORMAL) Calcium, Ionized (04/17/2023 12:38 AM CLIENT REPRESENTATIVE) Calcium, Ionized, S 5.13 4.57 - 5.43 mg/dL 04/17/2023 1:16 AM CLIENT REPRESENTATIVE DTL Comment: ----ADDITIONAL INFORMATION---- This test has been modified from the computer technical support specialist's instructions. Its performance characteristics were determined by [facility] in a manner consistent with CLIA requirements. This test has not been cleared or approved by the U.S. Food and Drug Administration. pH for Ionized Calcium 7.54(H) 7.35 - 7.48 04/17/2023 1:16 AM CLIENT REPRESENTATIVE DTL Blood (Blood, Venous) 04/17/2023 12:38 AM CLIENT REPRESENTATIVE 04/17/2023 1:04 AM CLIENT REPRESENTATIVE Sasha Alcala M.D. LAB BLOOD NON ADD -ON [facility] [address] [place] [address], [facility] [address] [place] [address] * (ABNORMAL) Basic Metabolic Panel (04/17/2023 12:38 AM CLIENT REPRESENTATIVE) Potassium, S 3.4(L) 3.6 - 5.2 mmol/L 04/17/2023 1:22 AM CLIENT REPRESENTATIVE DTL Sodium, S 140 135 - 145 mmol/L 04/17/2023 1:22 AM CLIENT REPRESENTATIVE DTL Chloride, S 105 98 - 107 mmol/L 04/17/2023 1:22 AM CLIENT REPRESENTATIVE DTL Bicarbonate, S 27 22 - 29 mmol/L 04/17/2023 1:22 AM CLIENT REPRESENTATIVE DTL Anion Gap 8 7 - 15 04/17/2023 1:22 AM CLIENT REPRESENTATIVE DTL BUN (Blood Urea Nitrogen), S 23(H) 6 - 21 mg/dL 04/17/2023 1:22 AM CLIENT REPRESENTATIVE DTL Creatinine 0.88 0.59 - 1.04 mg/dL 04/17/2023 1:22 AM CLIENT REPRESENTATIVE DTL Estimated GFR (eGFR) 66 >=60 mL/min/BSA 04/17/2023 1:22 AM CLIENT REPRESENTATIVE DTL Comment: Estimated GFR calculated using the 2020 CKD_EPI creatinine equation. Calcium, Total, S 9.1 8.8 - 10.2 mg/dL 04/17/2023 1:22 AM CLIENT REPRESENTATIVE DTL Glucose, S 122 70 - 140 mg/dL 04/17/2023 1:22 AM CLIENT REPRESENTATIVE DTL Blood (Blood, Venous) 04/17/2023 12:38 AM CLIENT REPRESENTATIVE 04/17/2023 1:04 AM CLIENT REPRESENTATIVE Sasha Alcala M.D. LAB BLOOD ADD-ON Performing Organization Address [facility] Co de Phone Number [facility] [address] [place] [address] * Phosphorus Inorganic (04/17/2023 12:38 AM CLIENT REPRESENTATIVE) Pathologist [facility] Phosphorus (Inorganic), S 2.8 2.5 - 4.5 mg/dL 04/17/2023 1:22 AM CLIENT REPRESENTATIVE DTL Blood (Blood, Venous) 04/17/2023 12:38 AM CLIENT REPRESENTATIVE 04/17/2023 1:04 AM CLIENT REPRESENTATIVE Sasha Alcala M.D. LAB BLOOD ADD-ON Performing Organization Address [facility] de Phone Number [facility] [address] [place] [address] * (ABNORMAL) CBC no call back, reflex T/S HGB <8 (04/17/2023 12:38 AM CLIENT REPRESENTATIVE) Hemoglobin 8.0(L) 11.6 - 15.0 g/dL 04/17/2023 1:01 AM CLIENT REPRESENTATIVE DTL Hematocrit 24.5(L) 35.5 - 44.9 % 04/17/2023 1:01 AM CLIENT REPRESENTATIVE DTL Erythrocytes 2.51(L) 3.92 - 5.13 x10(12)/L 04/17/2023 1:01 AM CLIENT REPRESENTATIVE DTL MCV 97.6 78.2 - 97.9 fL 04/17/2023 1:01 AM CLIENT REPRESENTATIVE DTL RBC Distrib Width 15.6 12.2 - 16.1 % 04/17/2023 1:01 AM CLIENT REPRESENTATIVE DTL Platelet Count 67(L) 157 - 371 x10(9)/L 04/17/2023 1:01 AM CLIENT REPRESENTATIVE DTL Leukocytes 3.2(L) 3.4 - 9.6 x10(9)/L 04/17/2023 1:01 AM CLIENT REPRESENTATIVE DTL Neutrophils 1.17(L) 1.56 - 6.45 x10(9)/L 04/17/2023 1:01 AM CLIENT REPRESENTATIVE DHPM Lymphocytes 1.77 0.95 - 3.07 x10(9)/L 04/17/2023 1:01 AM CLIENT REPRESENTATIVE DTL Monocytes 0.19(L) 0.26 - 0.81 x10(9)/L 04/17/2023 1:01 AM CLIENT REPRESENTATIVE DTL Eosinophils 0.04 0.03 - 0.48 x10(9)/L 04/17/2023 1:01 AM CLIENT REPRESENTATIVE DTL Basophils <0.03 0.01 - 0.08 x10(9)/L 04/17/2023 1:01 AM CLIENT REPRESENTATIVE DTL Blood (Blood, Venous) 04/17/2023 12:38 AM CLIENT REPRESENTATIVE 04/17/2023 12:53 AM CLIENT REPRESENTATIVE Vitor Casas P.A.-C., M.S. LAB BLOOD NON ADD-ON [facility] [address] [place] [address], [facility] DTL [facility] [place] [address] [place] [address] DHPM [facility] [address] [place] [address] * VRE PCR (04/16/2023 8:34 AM CLIENT REPRESENTATIVE) Specimen Source Swab, Perirectal 04/17/2023 9:16 PM CLIENT REPRESENTATIVE DTL VRE PCR Negative Negative 04/17/2023 9:16 PM CLIENT REPRESENTATIVE DTL Comment: ----ADDITIONAL INFORMATION---- This test was developed using an analyte specific reagent. Its performance characteristics were determined by [facility] in a manner consistent with CLIA requirements. This test has not been cleared or approved by the U.S. Food and Drug Administration. Swab (Perirectal) 04/16/2023 8:34 AM CLIENT REPRESENTATIVE 04/16/2023 9:08 AM CLIENT REPRESENTATIVE José Palmer LAB MICROBIOLOG Y - GENERAL ORDERABLES Performing Organization Address City/[facility]/ZIP Co de Phone Number [facility] [address] [place] [address], [facility] DTL [address] [facility] 200 [place] [address] * (ABNORMAL) Basic Metabolic Panel (04/16/2023 6:14 AM CLIENT REPRESENTATIVE) Pathologist [facility] Potassium, S 3.5(L) 3.6 - 5.2 mmol/L 04/16/2023 7:12 AM CLIENT REPRESENTATIVE DTL Sodium, S 142 135 - 145 mmol/L 04/16/2023 7:12 AM CLIENT REPRESENTATIVE DTL Chloride, S 107 98 - 107 mmol/L 04/16/2023 7:12 AM CLIENT REPRESENTATIVE DTL Bicarbonate, S 26 22 - 29 mmol/L 04/16/2023 7:12 AM CLIENT REPRESENTATIVE DTL Anion Gap 9 7 - 15 04/16/2023 7:12 AM CLIENT REPRESENTATIVE DTL BUN (Blood Urea Nitrogen), S 24(H) 6 - 21 mg/dL 04/16/2023 7:12 AM CLIENT REPRESENTATIVE DTL Creatinine 1.05(H) 0.59 - 1.04 mg/dL 04/16/2023 7:12 AM CLIENT REPRESENTATIVE DTL Estimated GFR (eGFR) 53(L) >=60 mL/min/BSA 04/16/2023 7:12 AM CLIENT REPRESENTATIVE DTL Comment: Estimated GFR calculated using the 2020 CKD_EPI creatinine equation. Calcium, Total, S 9.3 8.8 - 10.2 mg/dL 04/16/2023 7:12 AM CLIENT REPRESENTATIVE DTL Glucose, S 100 70 - 140 mg/dL 04/16/2023 7:12 AM CLIENT REPRESENTATIVE DTL Blood (Blood, Venous) 04/16/2023 6:14 AM CLIENT REPRESENTATIVE 04/16/2023 6:52 AM CLIENT REPRESENTATIVE Marialuisa Stark P.A.-C. LAB BLOOD ADD- ON Performing Organization Address City/[facility]/ZIP Co de Phone Number [facility] [address] [place] [address] * Uric Acid (04/16/2023 6:14 AM CLIENT REPRESENTATIVE) Uric Acid, S 4.0 2.7 - 6.1 mg/dL 04/16/2023 7:12 AM CLIENT REPRESENTATIVE DT Blood (Blood, Venous) 04/16/2023 6:14 AM CLIENT REPRESENTATIVE 04/16/2023 6:52 AM CLIENT REPRESENTATIVE Marialuisa Stark P.A.-C. LAB BLOOD ADD- ON Performing Organization Address City/[facility]/[place] [address] * Phosphorus Inorganic (04/16/2023 6:14 AM CLIENT REPRESENTATIVE) Pathologist [facility] Phosphorus (Inorganic), S 2.7 2.5 - 4.5 mg/dL 04/16/2023 7:12 AM CLIENT REPRESENTATIVE DT Blood (Blood, Venous) 04/16/2023 6:14 AM CLIENT REPRESENTATIVE 04/16/2023 6:52 AM CLIENT REPRESENTATIVE Marialuisa Stark P.A.-C. LAB BLOOD ADD- ON Performing Organization Address City/[facility]/ZIP Co de Phone Number [facility] [address] [place] [address] * (ABNORMAL) Calcium, Ionized (04/16/2023 6:14 AM CLIENT REPRESENTATIVE) Pathologist [facility] Calcium, Ionized, S 5.21 4.57 - 5.43 mg/dL 04/16/2023 7:14 AM CLIENT REPRESENTATIVE [facility] Comment: ----ADDITIONAL INFORMATION---- This test has been modified from the computer technical support specialist's instructions. Its performance characteristics were determined by [facility] in a manner consistent with CLIA requirements. This test has not been cleared or approved by the U.S. Food and Drug Administration. pH for Ionized Calcium 7.54(H) 7.35 - 7.48 04/16/2023 7:14 AM CLIENT REPRESENTATIVE DTL Blood (Blood, Venous) 04/16/2023 6:14 AM CLIENT REPRESENTATIVE 04/16/2023 6:52 AM CLIENT REPRESENTATIVE Sasha Alcala M.D. LAB BLOOD NON ADD -ON Performing Organization Address City/[facility]/ZIP Co de Phone Number [facility] [address] [place], [place] [id number] [place] [address] [facility] 200 [place] [address] * (ABNORMAL) Cystatin C with Estimated GFR (04/16/2023 6:14 AM CLIENT REPRESENTATIVE) Pathologist [facility] eGFR by Cystatin C 28(L) >60 mL/min/BSA 04/16/2023 7:12 AM CLIENT REPRESENTATIVE DTL Comment: Estimated GFR calculated using the [...] lower with the new assay. Cystatin C 1.91(H) 0.67 - 1.21 mg/L 04/16/2023 7:12 AM CLIENT REPRESENTATIVE DT Blood (Blood, Venous) 04/16/2023 6:14 AM CLIENT REPRESENTATIVE 04/16/2023 6:52 AM CLIENT REPRESENTATIVE Sasha Alcala M.D. LAB BLOOD ADD-ON Performing Organization Address City/[facility]/ZIP Co de Phone Number [facility] [address] [place], [place] [phone] [place] [address] [facility] 200 [place] [address] * (ABNORMAL) CBC no call back, reflex T/S HGB <8 (04/16/2023 6:14 AM CLIENT REPRESENTATIVE) [facility] Hemoglobin 8.4(L) 11.6 - 15.0 g/dL 04/16/2023 6:46 AM CLIENT REPRESENTATIVE DTL Hematocrit 25.5(L) 35.5 - 44.9 % 04/16/2023 6:46 AM CLIENT REPRESENTATIVE DTL Erythrocytes 2.61(L) 3.92 - 5.13 x10(12)/L 04/16/2023 6:46 AM CLIENT REPRESENTATIVE DTL MCV 97.7 78.2 - 97.9 fL 04/16/2023 6:46 AM CLIENT REPRESENTATIVE DTL RBC Distrib Width 15.7 12.2 - 16.1 % 04/16/2023 6:46 AM CLIENT REPRESENTATIVE DTL Platelet Count 64(L) 157 - 371 x10(9)/L 04/16/2023 6:46 AM CLIENT REPRESENTATIVE DTL Leukocytes 3.4 3.4 - 9.6 x10(9)/L 04/16/2023 6:46 AM CLIENT REPRESENTATIVE DTL Neutrophils 1.33(L) 1.56 - 6.45 x10(9)/L 04/16/2023 6:46 AM CLIENT REPRESENTATIVE [facility] Lymphocytes 1.81 0.95 - 3.07 x10(9)/L 04/16/2023 6:46 AM CLIENT REPRESENTATIVE DTL Monocytes 0.23(L) 0.26 - 0.81 x10(9)/L 04/16/2023 6:46 AM CLIENT REPRESENTATIVE DTL Eosinophils 0.03 0.03 - 0.48 x10(9)/L 04/16/2023 6:46 AM CLIENT REPRESENTATIVE DTL Basophils <0.03 0.01 - 0.08 x10(9)/L 04/16/2023 6:46 AM CLIENT REPRESENTATIVE DTL Blood (Blood, Venous) 04/16/2023 6:14 AM CLIENT REPRESENTATIVE 04/16/2023 6:35 AM CLIENT REPRESENTATIVE Vitor Casas P.A.-C., M.S. LAB BLOOD NON ADD-ON [facility] [address] [place] [address], [facility] DTL [facility] [place] [address] [place] [address] [facility] 200 [place] [address] * (ABNORMAL) Calcium, Ionized (04/15/2023 8:02 PM CLIENT REPRESENTATIVE) [facility] Calcium, Ionized, S 5.25 4.57 - 5.43 mg/dL 04/15/2023 8:49 PM CLIENT REPRESENTATIVE DTL Comment: ----ADDITIONAL INFORMATION---- This test has been modified from the computer technical support specialist's instructions. Its performance characteristics were determined by [facility] in a manner consistent with CLIA requirements. This test has not been cleared or approved by the U.S. Food and Drug Administration. pH for Ionized Calcium 7.51(H) 7.35 - 7.48 04/15/2023 8:49 PM CLIENT REPRESENTATIVE DTL Blood (Blood, Venous) 04/15/2023 8:02 PM CLIENT REPRESENTATIVE 04/15/2023 8:08 PM CLIENT REPRESENTATIVE Sasha Alcala M.D. LAB BLOOD NON ADD -ON [facility] [address] [place], [place] [phone] [place] [address] 200 [place] [address] * (ABNORMAL) Basic Metabolic Panel (04/15/2023 8:02 PM CLIENT REPRESENTATIVE) [facility] Potassium, S 3.8 3.6 - 5.2 mmol/L 04/15/2023 8:49 PM CLIENT REPRESENTATIVE DTL Sodium, S 141 135 - 145 mmol/L 04/15/2023 8:49 PM CLIENT REPRESENTATIVE DTL Chloride, S 106 98 - 107 mmol/L 04/15/2023 8:49 PM CLIENT REPRESENTATIVE DTL Bicarbonate, S 26 22 - 29 mmol/L 04/15/2023 8:49 PM CLIENT REPRESENTATIVE DTL Anion Gap 9 7 - 15 04/15/2023 8:49 PM CLIENT REPRESENTATIVE DTL BUN (Blood Urea Nitrogen), S 26(H) 6 - 21 mg/dL 04/15/2023 8:49 PM CLIENT REPRESENTATIVE DTL Creatinine 1.14(H) 0.59 - 1.04 mg/dL 04/15/2023 8:49 PM CLIENT REPRESENTATIVE DTL Estimated GFR (eGFR) 48(L) >=60 mL/min/BSA 04/15/2023 8:49 PM CLIENT REPRESENTATIVE DTL Comment: Estimated GFR calculated using the 2020 CKD_EPI creatinine equation. Calcium, Total, S 9.5 8.8 - 10.2 mg/dL 04/15/2023 8:49 PM CLIENT REPRESENTATIVE DTL Glucose, S 125 70 - 140 mg/dL 04/15/2023 8:49 PM CLIENT REPRESENTATIVE DTL Blood (Blood, Venous) 04/15/2023 8:02 PM CLIENT REPRESENTATIVE 04/15/2023 8:08 PM CLIENT REPRESENTATIVE Marialuisa Stark P.A.-C. LAB BLOOD ADD- ON [facility] [address] [place] [address], [place] [address] * Uric Acid (04/15/2023 8:02 PM CLIENT REPRESENTATIVE) Uric Acid, S 4.2 2.7 - 6.1 mg/dL 04/15/2023 8:49 PM CLIENT REPRESENTATIVE DTL Blood (Blood, Venous) 04/15/2023 8:02 PM CLIENT REPRESENTATIVE 04/15/2023 8:08 PM CLIENT REPRESENTATIVE Marialuisa Stark P.A.-C. LAB BLOOD ADD- ON [facility] [address] [place] [address], [facility] [place] [address] * Phosphorus Inorganic (04/15/2023 8:02 PM CLIENT REPRESENTATIVE) Phosphorus (Inorganic), S 2.5 2.5 - 4.5 mg/dL 04/15/2023 8:49 PM CLIENT REPRESENTATIVE DTL Blood (Blood, Venous) 04/15/2023 8:02 PM CLIENT REPRESENTATIVE 04/15/2023 8:08 PM CLIENT REPRESENTATIVE Marialuisa Stark P.A.-C. LAB BLOOD ADD- ON Performing Organization Address City/[facility]/ZIP Co de Phone Number [id number] [place] [address] [address] * Calcium, Ionized (04/15/2023 12:26 PM CLIENT REPRESENTATIVE) Calcium, Ionized, S 5.21 4.57 - 5.43 mg/dL 04/15/2023 1:15 PM CLIENT REPRESENTATIVE DTL Comment: ----ADDITIONAL INFORMATION---- This test has been modified from the computer technical support specialist's instructions. Its performance characteristics were determined by [facility] in a manner consistent with CLIA requirements. This test has not been cleared or approved by the U.S. Food and Drug Administration. pH for Ionized Calcium 7.48 7.35 - 7.48 04/15/2023 1:15 PM CLIENT REPRESENTATIVE DTL Blood (Blood, Venous) 04/15/2023 12:26 PM CLIENT REPRESENTATIVE 04/15/2023 1:06 PM CLIENT REPRESENTATIVE Sasha Alcala M.D. LAB BLOOD NON ADD -ON Performing Organization Address City/[facility] Co de Phone Number [address] [address], [facility] [address] [address] * (ABNORMAL) Basic Metabolic Panel (04/15/2023 12:26 PM CLIENT REPRESENTATIVE) Potassium, S 4.0 3.6 - 5.2 mmol/L 04/15/2023 1:22 PM CLIENT REPRESENTATIVE DTL Sodium, S 142 135 - 145 mmol/L 04/15/2023 1:22 PM CLIENT REPRESENTATIVE DTL Chloride, S 106 98 - 107 mmol/L 04/15/2023 1:22 PM CLIENT REPRESENTATIVE DTL Bicarbonate, S 26 22 - 29 mmol/L 04/15/2023 1:22 PM CLIENT REPRESENTATIVE DTL Anion Gap 10 7 - 15 04/15/2023 1:22 PM CLIENT REPRESENTATIVE DTL BUN (Blood Urea Nitrogen), S 27(H) 6 - 21 mg/dL 04/15/2023 1:22 PM CLIENT REPRESENTATIVE DTL Creatinine 1.25(H) 0.59 - 1.04 mg/dL 04/15/2023 1:22 PM CLIENT REPRESENTATIVE DTL Estimated GFR (eGFR) 43(L) >=60 mL/min/BSA 04/15/2023 1:22 PM CLIENT REPRESENTATIVE DTL Comment: Estimated GFR calculated using the 2020 CKD_EPI creatinine equation. Calcium, Total, S 9.4 8.8 - 10.2 mg/dL 04/15/2023 1:22 PM CLIENT REPRESENTATIVE DTL Glucose, S 171(H) 70 - 140 mg/dL 04/15/2023 1:22 PM CLIENT REPRESENTATIVE DTL Blood (Blood, Venous) 04/15/2023 12:26 PM CLIENT REPRESENTATIVE 04/15/2023 1:06 PM CLIENT REPRESENTATIVE Marialuisa Stark P.A.-C. LAB BLOOD ADD- ON Performing Organization Address City/[facility]/ZIP Co de Phone Number [facility] [address] [place] [address], [facility] 200 [place] [address] * Uric Acid (04/15/2023 12:26 PM CLIENT REPRESENTATIVE) Uric Acid, S 4.5 2.7 - 6.1 mg/dL 04/15/2023 1:22 PM CLIENT REPRESENTATIVE DTL Blood (Blood, Venous) 04/15/2023 12:26 PM CLIENT REPRESENTATIVE 04/15/2023 1:06 PM CLIENT REPRESENTATIVE Marialuisa Stark P.A.-C. LAB BLOOD ADD- ON [facility] [address] [place] [address], [facility] 200 [place] [address] * (ABNORMAL) Phosphorus Inorganic (04/15/2023 12:26 PM CLIENT REPRESENTATIVE) Phosphorus (Inorganic), S 2.2(L) 2.5 - 4.5 mg/dL 04/15/2023 1:22 PM CLIENT REPRESENTATIVE DTL Blood (Blood, Venous) 04/15/2023 12:26 PM CLIENT REPRESENTATIVE 04/15/2023 1:06 PM CLIENT REPRESENTATIVE Marialuisa Stark P.A.-C. LAB BLOOD ADD- ON [facility] [address] [place] [address], [facility] [address] [place] [address] * (ABNORMAL) Basic Metabolic Panel (04/15/2023 6:14 AM CLIENT REPRESENTATIVE) Potassium, S 3.3(L) 3.6 - 5.2 mmol/L 04/15/2023 7:00 AM CLIENT REPRESENTATIVE DTL Sodium, S 144 135 - 145 mmol/L 04/15/2023 7:00 AM CLIENT REPRESENTATIVE DTL Chloride, S 108(H) 98 - 107 mmol/L 04/15/2023 7:00 AM CLIENT REPRESENTATIVE DTL Bicarbonate, S 26 22 - 29 mmol/L 04/15/2023 7:00 AM CLIENT REPRESENTATIVE DTL Anion Gap 10 7 - 15 04/15/2023 7:00 AM CLIENT REPRESENTATIVE DTL BUN (Blood Urea Nitrogen), S 27(H) 6 - 21 mg/dL 04/15/2023 7:00 AM CLIENT REPRESENTATIVE DTL Creatinine 1.31(H) 0.59 - 1.04 mg/dL 04/15/2023 7:00 AM CLIENT REPRESENTATIVE DTL Estimated GFR (eGFR) 41(L) >=60 mL/min/BSA 04/15/2023 7:00 AM CLIENT REPRESENTATIVE DTL Comment: Estimated GFR calculated using the 2020 CKD_EPI creatinine equation. Calcium, Total, S 9.5 8.8 - 10.2 mg/dL 04/15/2023 7:00 AM CLIENT REPRESENTATIVE DTL Glucose, S 108 70 - 140 mg/dL 04/15/2023 7:00 AM CLIENT REPRESENTATIVE DTL Blood (Blood, Venous) 04/15/2023 6:14 AM CLIENT REPRESENTATIVE 04/15/2023 6:43 AM CLIENT REPRESENTATIVE Marialuisa Stark P.A.-C. LAB BLOOD ADD- ON Performing Organization Address City/[facility] [place] [address] * Uric Acid (04/15/2023 6:14 AM CLIENT REPRESENTATIVE) Uric Acid, S 5.3 2.7 - 6.1 mg/dL 04/15/2023 7:00 AM CLIENT REPRESENTATIVE DT Blood (Blood, Venous) 04/15/2023 6:14 AM CLIENT REPRESENTATIVE 04/15/2023 6:43 AM CLIENT REPRESENTATIVE Marialuisa Stark P.A.-C. LAB BLOOD ADD- ON Performing Organization Address [facility] [place] [address] * Phosphorus Inorganic (04/15/2023 6:14 AM CLIENT REPRESENTATIVE) Phosphorus (Inorganic), S 2.7 2.5 - 4.5 mg/dL 04/15/2023 7:00 AM CLIENT REPRESENTATIVE DT Blood (Blood, Venous) 04/15/2023 6:14 AM CLIENT REPRESENTATIVE 04/15/2023 6:43 AM CLIENT REPRESENTATIVE Marialuisa Stark P.A.-C. LAB BLOOD ADD- ON Performing Organization Address City/[facility]/ZIP Co de Phone Number [facility] [address] [place] [address] * (ABNORMAL) Calcium, Ionized (04/15/2023 6:14 AM CLIENT REPRESENTATIVE) Calcium, Ionized, S 5.45(H) 4.57 - 5.43 mg/dL 04/15/2023 6:56 AM CLIENT REPRESENTATIVE DTL Comment: ----ADDITIONAL INFORMATION---- This test has been modified from the computer technical support specialist's instructions. Its performance characteristics were determined by [facility] in a manner consistent with CLIA requirements. This test has not been cleared or approved by the U.S. Food and Drug Administration. pH for Ionized Calcium 7.51(H) 7.35 - 7.48 04/15/2023 6:56 AM CLIENT REPRESENTATIVE DTL Blood (Blood, Venous) 04/15/2023 6:14 AM CLIENT REPRESENTATIVE 04/15/2023 6:43 AM CLIENT REPRESENTATIVE Sasha Alcala M.D. LAB BLOOD NON ADD -ON Performing Organization Address [facility]/ZIP Co de Phone Number [facility] [address] [place] [address], [facility] [place] [address] [place] [address] * (ABNORMAL) Cystatin C with Estimated GFR (04/15/2023 6:14 AM CLIENT REPRESENTATIVE) Pathologist [facility] eGFR by Cystatin C 26(L) >60 mL/min/BSA 04/15/2023 7:00 AM CLIENT REPRESENTATIVE DTL Comment: Estimated GFR calculated using the [...] lower with the new assay. Cystatin C 2.06(H) 0.67 - 1.21 mg/L 04/15/2023 7:00 AM CLIENT REPRESENTATIVE DTL Blood (Blood, Venous) 04/15/2023 6:14 AM CLIENT REPRESENTATIVE 04/15/2023 6:43 AM CLIENT REPRESENTATIVE Sasha Alcala M.D. LAB BLOOD ADD-ON Performing Organization Address City/[facility]/ZIP Co de Phone Number [facility] [address] [place] [address], [facility] DTL [address] [place] [address] * (ABNORMAL) CBC no call back, reflex T/S HGB <8 (04/15/2023 6:14 AM CLIENT REPRESENTATIVE) Hemoglobin 8.1(L) 11.6 - 15.0 g/dL 04/15/2023 6:40 AM CLIENT REPRESENTATIVE DTL Hematocrit 25.4(L) 35.5 - 44.9 % 04/15/2023 6:40 AM CLIENT REPRESENTATIVE DTL Erythrocytes 2.52(L) 3.92 - 5.13 x10(12)/L 04/15/2023 6:40 AM CLIENT REPRESENTATIVE DTL MCV 100.8(H) 78.2 - 97.9 fL 04/15/2023 6:40 AM CLIENT REPRESENTATIVE DTL RBC Distrib Width 15.7 12.2 - 16.1 % 04/15/2023 6:40 AM CLIENT REPRESENTATIVE DTL Platelet Count 58(L) 157 - 371 x10(9)/L 04/15/2023 6:40 AM CLIENT REPRESENTATIVE DTL Leukocytes 3.7 3.4 - 9.6 x10(9)/L 04/15/2023 6:40 AM CLIENT REPRESENTATIVE DTL Neutrophils 1.65 1.56 - 6.45 x10(9)/L 04/15/2023 6:40 AM CLIENT REPRESENTATIVE DHPM Lymphocytes 1.76 0.95 - 3.07 x10(9)/L 04/15/2023 6:40 AM CLIENT REPRESENTATIVE DTL Monocytes 0.29 0.26 - 0.81 x10(9)/L 04/15/2023 6:40 AM CLIENT REPRESENTATIVE DTL Eosinophils <0.03 0.03 - 0.48 x10(9)/L 04/15/2023 6:40 AM CLIENT REPRESENTATIVE DTL Basophils <0.03 0.01 - 0.08 x10(9)/L 04/15/2023 6:40 AM CLIENT REPRESENTATIVE DTL Blood (Blood, Venous) 04/15/2023 6:14 AM CLIENT REPRESENTATIVE 04/15/2023 6:31 AM CLIENT REPRESENTATIVE Vitor Casas P.A.-C., M.S. LAB BLOOD NON ADD-ON [facility] [address] [place], [place] [address] [address] [place], [place] [id number] [place] [address] * (ABNORMAL) Calcium, Ionized (04/14/2023 8:16 PM CLIENT REPRESENTATIVE) Calcium, Ionized, S 5.29 4.57 - 5.43 mg/dL 04/14/2023 9:04 PM CLIENT REPRESENTATIVE DTL Comment: ----ADDITIONAL INFORMATION---- This test has been modified from the computer technical support specialist's instructions. Its performance characteristics were determined by [facility] in a manner consistent with CLIA requirements. This test has not been cleared or approved by the U.S. Food and Drug Administration. pH for Ionized Calcium 7.50(H) 7.35 - 7.48 04/14/2023 9:04 PM CLIENT REPRESENTATIVE DTL Blood (Blood, Venous) 04/14/2023 8:16 PM CLIENT REPRESENTATIVE 04/14/2023 8:39 PM CLIENT REPRESENTATIVE Sasha Alcala M.D. LAB BLOOD NON ADD -ON [facility] [address] [place], [place] [address] [address] [place] [address] * (ABNORMAL) Basic Metabolic Panel (04/14/2023 8:16 PM CLIENT REPRESENTATIVE) Potassium, S 3.6 3.6 - 5.2 mmol/L 04/14/2023 8:54 PM CLIENT REPRESENTATIVE DTL Sodium, S 144 135 - 145 mmol/L 04/14/2023 8:54 PM CLIENT REPRESENTATIVE DTL Chloride, S 109(H) 98 - 107 mmol/L 04/14/2023 8:54 PM CLIENT REPRESENTATIVE DTL Bicarbonate, S 26 22 - 29 mmol/L 04/14/2023 8:54 PM CLIENT REPRESENTATIVE DTL Anion Gap 9 7 - 15 04/14/2023 8:54 PM CLIENT REPRESENTATIVE DTL BUN (Blood Urea Nitrogen), S 26(H) 6 - 21 mg/dL 04/14/2023 8:54 PM CLIENT REPRESENTATIVE DTL Creatinine 1.30(H) 0.59 - 1.04 mg/dL 04/14/2023 8:54 PM CLIENT REPRESENTATIVE DTL Estimated GFR (eGFR) 41(L) >=60 mL/min/BSA 04/14/2023 8:54 PM CLIENT REPRESENTATIVE DTL Comment: Estimated GFR calculated using the 2020 CKD_EPI creatinine equation. Calcium, Total, S 9.2 8.8 - 10.2 mg/dL 04/14/2023 8:54 PM CLIENT REPRESENTATIVE DTL Glucose, S 113 70 - 140 mg/dL 04/14/2023 8:54 PM CLIENT REPRESENTATIVE DTL Blood (Blood, Venous) 04/14/2023 8:16 PM CLIENT REPRESENTATIVE 04/14/2023 8:39 PM CLIENT REPRESENTATIVE Marialuisa Stark P.A.-C. LAB BLOOD ADD- ON Performing Organization Address City/[facility]/ZIP Co de Phone Number [facility] [address] [place] [address], [facility] [address] [place] [address] * Uric Acid (04/14/2023 8:16 PM CLIENT REPRESENTATIVE) Uric Acid, S 5.2 2.7 - 6.1 mg/dL 04/14/2023 8:54 PM CLIENT REPRESENTATIVE DTL Blood (Blood, Venous) 04/14/2023 8:16 PM CLIENT REPRESENTATIVE 04/14/2023 8:39 PM CLIENT REPRESENTATIVE Marialuisa Stark P.A.-C. LAB BLOOD ADD- ON [facility] [address] [place] [address], [facility] [address] [place] [address] * Phosphorus Inorganic (04/14/2023 8:16 PM CLIENT REPRESENTATIVE) Phosphorus (Inorganic), S 2.7 2.5 - 4.5 mg/dL 04/14/2023 8:54 PM CLIENT REPRESENTATIVE DTL Blood (Blood, Venous) 04/14/2023 8:16 PM CLIENT REPRESENTATIVE 04/14/2023 8:39 PM CLIENT REPRESENTATIVE Marialuisa Stark P.A.-C. LAB BLOOD ADD- ON [facility] [address] [place] [address], [facility] [address] [place] [address] * Dipstick, Urine (04/14/2023 3:34 PM CLIENT REPRESENTATIVE) Hemoglobin, QL, U Negative Negative 04/14/2023 4:15 PM CLIENT REPRESENTATIVE DTL Leukocyte Esterase, U Negative Negative 04/14/2023 4:15 PM CLIENT REPRESENTATIVE DTL Nitrite, U Negative Negative 04/14/2023 4:15 PM CLIENT REPRESENTATIVE DTL Ketone, U Negative Negative mg/dL 04/14/2023 4:15 PM CLIENT REPRESENTATIVE DTL Glucose, U Negative Negative mg/dL 04/14/2023 4:15 PM CLIENT REPRESENTATIVE DTL Urine 04/14/2023 3:34 PM CLIENT REPRESENTATIVE 04/14/2023 3:58 PM CLIENT REPRESENTATIVE Sasha Alcala M.D. LAB URINE ORDERAB LES Performing Organization Address City/[facility]/ZIP Co de Phone Number [facility] [address] [place] [address], [facility] [address] [place] [address] * pH, Urine (04/14/2023 3:34 PM CLIENT REPRESENTATIVE) pH, U 6.8 4.5 - 8.0 04/14/2023 4:3 5 PM CLIENT REPRESENTATIVE DTL Urine 04/14/2023 3:34 PM CLIENT REPRESENTATIVE 04/14/2023 3:58 PM CLIENT REPRESENTATIVE Sasha Alcala M.D. LAB URINE ORDERAB LES [facility] [address] [place] [address], [facility] [address] [place] [address] * Osmolality, Urine (04/14/2023 3:34 PM CLIENT REPRESENTATIVE) Pathologist [facility] Osmolality, U 407 150 - 1150 mOsm/kg 04/14/2023 4:35 PM CLIENT REPRESENTATIVE DTL Urine 04/14/2023 3:34 PM CLIENT REPRESENTATIVE 04/14/2023 3:58 PM CLIENT REPRESENTATIVE Sasha Alcala M.D. LAB URINE ORDERAB LES Performing Organization Address City/[facility]/ZIP Co de Phone Number [facility] [address] [place], [place] [address] [place] [address] 200 [place] [address] * Microscopic Automated (04/14/2023 3:34 PM CLIENT REPRESENTATIVE) [facility] Microscopy Normal 04/14/2023 4:15 PM CLIENT REPRESENTATIVE DTL RBC None Seen <3 /hpf 04/14/2023 4:15 PM CLIENT REPRESENTATIVE DTL WBC 1-3 /hpf 04/14/2023 4:15 PM CLIENT REPRESENTATIVE DTL Comment: ----REFERENCE VALUE---- <4 ??(Males) <11 (Females) Urine 04/14/2023 3:34 PM CLIENT REPRESENTATIVE 04/14/2023 3:58 PM CLIENT REPRESENTATIVE Sasha Alcala M.D. LAB URINE ORDERAB LES Performing Organization Address City/[facility]/ZIP Co de Phone Number [facility] [address] [place], [place] [address] [place] [address] 200 [place] [address] * (ABNORMAL) Urinalysis, with Microscopic: Urine, Catheter (04/14/2023 3:34 PM CLIENT REPRESENTATIVE) Pathologist [facility] Source Urine, Urine, Catheter 04/14/2023 3:58 PM CLIENT REPRESENTATIVE DTL Color, U Yellow 04/14/2023 3:58 PM CLIENT REPRESENTATIVE DTL Clarity, U Clear 04/14/2023 3:58 PM CLIENT REPRESENTATIVE DTL Protein, U 16 <26 mg/dL 04/14/2023 4:35 PM CLIENT REPRESENTATIVE DTL Protein/Osmola lity 0.39 <0.42 ratio 04/14/2023 4:35 PM CLIENT REPRESENTATIVE DTL Predicted 24 HR Protein, U 287(H) <229 mg/24 h 04/14/2023 4:35 PM CLIENT REPRESENTATIVE DTL Predicted Range 71-1160 mg/24 h 04/14/2023 4:35 PM CLIENT REPRESENTATIVE DTL Urine (Urine, Catheter) 04/14/2023 3:34 PM CLIENT REPRESENTATIVE 04/14/2023 3:58 PM CLIENT REPRESENTATIVE Sasha Alcala M.D. LAB URINE ORDERAB LES [facility] [address] [place] [address], [place] DTL [facility] [address] [place] [address] * DX Chest Portable 1 View (04/14/2023 2:55 PM CLIENT REPRESENTATIVE) Anatomical Region Laterality Modality Chest, Thoracic RST LOS, Tho racic ARZ LOS, Thoracic FLA LOS N/A Digital Radiography Impressions 04/14/2023 3:05 PM CLIENT REPRESENTATIVE Since 07/30/2020, interval development of a small left pleural effusion with adjacent atelectasis or consolidation. Probable tiny right pleural effusion. Increased pulmonary vascular congestion. Similar biapical scarring. Prominent cardiac silhouette. Aortic calcification. Feeding tube with tip below the inferior margin of the image. Narrative 04/14/2023 3:05 PM CLIENT REPRESENTATIVE EXAM: ??DX CHEST PORTABLE 1 VIEW Procedure [...] IMG DIAGNOSTIC IM AGING PROCEDURES * (ABNORMAL) Basic Metabolic Panel (04/14/2023 1:10 PM CLIENT REPRESENTATIVE) Potassium, S 3.4(L) 3.6 - 5.2 mmol/L 04/14/2023 3:06 PM CLIENT REPRESENTATIVE DTL Sodium, S 145 135 - 145 mmol/L 04/14/2023 3:06 PM CLIENT REPRESENTATIVE DTL Chloride, S 113(H) 98 - 107 mmol/L 04/14/2023 3:06 PM CLIENT REPRESENTATIVE DTL Bicarbonate, S 23 22 - 29 mmol/L 04/14/2023 3:06 PM CLIENT REPRESENTATIVE DTL Anion Gap 9 7 - 15 04/14/2023 3:06 PM CLIENT REPRESENTATIVE DTL BUN (Blood Urea Nitrogen), S 25(H) 6 - 21 mg/dL 04/14/2023 3:06 PM CLIENT REPRESENTATIVE DTL Creatinine 1.35(H) 0.59 - 1.04 mg/dL 04/14/2023 3:06 PM CLIENT REPRESENTATIVE DTL Estimated GFR (eGFR) 39(L) >=60 mL/min/BSA 04/14/2023 3:06 PM CLIENT REPRESENTATIVE DTL Comment: Estimated GFR calculated using the 2020 CKD_EPI creatinine equation. Calcium, Total, S 9.0 8.8 - 10.2 mg/dL 04/14/2023 3:06 PM CLIENT REPRESENTATIVE DTL Glucose, S 94 70 - 140 mg/dL 04/14/2023 3:06 PM CLIENT REPRESENTATIVE DTL Blood (Blood, Venous) 04/14/2023 1:10 PM CLIENT REPRESENTATIVE 04/14/2023 1:28 PM CLIENT REPRESENTATIVE Marialuisa Stark P.A.-C. LAB BLOOD ADD- ON [facility] [address] [place] [address], [facility] [address] [place] [address] * Uric Acid (04/14/2023 1:10 PM CLIENT REPRESENTATIVE) Uric Acid, S 5.2 2.7 - 6.1 mg/dL 04/14/2023 3:06 PM CLIENT REPRESENTATIVE DTL Blood (Blood, Venous) 04/14/2023 1:10 PM CLIENT REPRESENTATIVE 04/14/2023 1:28 PM CLIENT REPRESENTATIVE Marialuisa Stark P.A.-C. LAB BLOOD ADD- ON Performing Organization Address City/[facility]/ZIP Co de Phone Number [facility] [address] [place] [address] * Phosphorus Inorganic (04/14/2023 1:10 PM CLIENT REPRESENTATIVE) Phosphorus (Inorganic), S 3.1 2.5 - 4.5 mg/dL 04/14/2023 3:06 PM CLIENT REPRESENTATIVE DT Blood (Blood, Venous) 04/14/2023 1:10 PM CLIENT REPRESENTATIVE 04/14/2023 1:28 PM CLIENT REPRESENTATIVE Marialuisa Stark P.A.-C. LAB BLOOD ADD- ON Performing Organization Address City/[facility] Co de Phone Number [facility] [address] [place] [address] * DX Abdomen Portable Anterior Posterior 1 View (04/14/2023 11:45 AM CLIENT REPRESENTATIVE) Anatomical Region Laterality Modality Abdomen, Abdominal RST LOS, Abdominal ARZ LOS, Abdominal FLA LOS N/A Digital Radiography Impressions 04/14/2023 11:53 AM CLIENT REPRESENTATIVE Feeding tube tip in the gastric body. This is unchanged or minimally retracted since 04/12/2023. Narrative 04/14/2023 11:53 AM CLIENT REPRESENTATIVE EXAM: ??DX ABDOMEN PORTABLE ANTERIOR POSTERIOR 1 VIEW Procedure Note Mike Vazquez M.D. - 04/14/2023 EXAM: DX ABDOMEN PORTABLE ANTERIOR POSTERIOR 1 VIEW IMPRESSION: Feeding tube tip in the gastric body. This is unchanged or minimallyretracted since 04/12/2023. Vitor Casas P.A.-C. M.S. IMG DIAGNO STIC IMAGING PROCEDURES * (ABNORMAL) Calcium, Ionized (04/14/2023 4:13 AM CLIENT REPRESENTATIVE) Calcium, Ionized, S 5.49(H) 4.57 - 5.43 mg/dL 04/14/2023 6:14 AM CLIENT REPRESENTATIVE DTL Comment: ----ADDITIONAL INFORMATION---- This test has been modified from the computer technical support specialist's instructions. Its performance characteristics were determined by [facility] in a manner consistent with CLIA requirements. This test has not been cleared or approved by the U.S. Food and Drug Administration. pH for Ionized Calcium 7.46 7.35 - 7.48 04/14/2023 6:14 AM CLIENT REPRESENTATIVE DTL Blood (Blood, Venous) 04/14/2023 4:13 AM CLIENT REPRESENTATIVE 04/14/2023 5:03 AM CLIENT REPRESENTATIVE Vitor Casas P.A.-C. M.S. LAB BLOOD NON ADD-ON [facility] [address] [address], [facility] [place] [address] * (ABNORMAL) Basic Metabolic Panel (04/14/2023 4:13 AM CLIENT REPRESENTATIVE) Potassium, S 3.8 3.6 - 5.2 mmol/L 04/14/2023 5:22 AM CLIENT REPRESENTATIVE DTL Sodium, S 146(H) 135 - 145 mmol/L 04/14/2023 5:22 AM CLIENT REPRESENTATIVE DTL Chloride, S 110(H) 98 - 107 mmol/L 04/14/2023 5:22 AM CLIENT REPRESENTATIVE DTL Bicarbonate, S 26 22 - 29 mmol/L 04/14/2023 5:22 AM CLIENT REPRESENTATIVE DTL Anion Gap 10 7 - 15 04/14/2023 5:22 AM CLIENT REPRESENTATIVE DTL BUN (Blood Urea Nitrogen), S 27(H) 6 - 21 mg/dL 04/14/2023 5:22 AM CLIENT REPRESENTATIVE DTL Creatinine 1.54(H) 0.59 - 1.04 mg/dL 04/14/2023 5:22 AM CLIENT REPRESENTATIVE DTL Estimated GFR (eGFR) 34(L) >=60 mL/min/BSA 04/14/2023 5:22 AM CLIENT REPRESENTATIVE DTL Comment: Estimated GFR calculated using the 2020 CKD_EPI creatinine equation. Calcium, Total, S 9.5 8.8 - 10.2 mg/dL 04/14/2023 5:22 AM CLIENT REPRESENTATIVE DTL Glucose, S 117 70 - 140 mg/dL 04/14/2023 5:22 AM CLIENT REPRESENTATIVE DTL Blood (Blood, Venous) 04/14/2023 4:13 AM CLIENT REPRESENTATIVE 04/14/2023 5:03 AM CLIENT REPRESENTATIVE Marialuisa Stark P.A.-C. LAB BLOOD ADD- ON Performing Organization Address City/[facility]/ZIP Co de Phone Number [address] [place] [address] * Uric Acid (04/14/2023 4:13 AM CLIENT REPRESENTATIVE) Uric Acid, S 5.9 2.7 - 6.1 mg/dL 04/14/2023 5:22 AM CLIENT REPRESENTATIVE DTL Blood (Blood, Venous) 04/14/2023 4:13 AM CLIENT REPRESENTATIVE 04/14/2023 5:03 AM CLIENT REPRESENTATIVE Marialuisa Stark P.A.-C. LAB BLOOD ADD- ON [facility] [address] [place] [address] * Phosphorus Inorganic (04/14/2023 4:13 AM CLIENT REPRESENTATIVE) Phosphorus (Inorganic), S 3.4 2.5 - 4.5 mg/dL 04/14/2023 5:22 AM CLIENT REPRESENTATIVE DTL Blood (Blood, Venous) 04/14/2023 4:13 AM CLIENT REPRESENTATIVE 04/14/2023 5:03 AM CLIENT REPRESENTATIVE Marialuisa Stark P.A.-C. LAB BLOOD ADD- ON Performing Organization Address City/[facility] Co de Phone Number [facility] [address] [place], [place] [phone] [place] [address] [facility] 200 [place] [address] * (ABNORMAL) Hepatic Function Panel (04/14/2023 4:13 AM CLIENT REPRESENTATIVE) Bilirubin, Total, S 0.5 0.0 - 1.2 mg/dL 04/14/2023 5:22 AM CLIENT REPRESENTATIVE DTL Bilirubin, Direct, S 0.3 0.0 - 0.3 mg/dL 04/14/2023 5:22 AM CLIENT REPRESENTATIVE DTL Aspartate Aminotransferase (AST), S 42 8 - 43 U/L 04/14/2023 5:22 AM CLIENT REPRESENTATIVE DTL Alanine Aminotransferase (ALT), S 23 7 - 45 U/L 04/14/2023 5:22 AM CLIENT REPRESENTATIVE DTL Alkaline Phosphatase, S 163(H) 35 - 104 U/L 04/14/2023 5:22 AM CLIENT REPRESENTATIVE DTL Albumin, S 3.0(L) 3.5 - 5.0 g/dL 04/14/2023 5:22 AM CLIENT REPRESENTATIVE DTL Protein, Total, S 5.3(L) 6.3 - 7.9 g/dL 04/14/2023 5:22 AM CLIENT REPRESENTATIVE DTL Blood (Blood, Venous) 04/14/2023 4:13 AM CLIENT REPRESENTATIVE 04/14/2023 5:03 AM CLIENT REPRESENTATIVE Vitor Casas P.A.-C., M.S. LAB BLOOD ADD-ON Performing Organization Address City/[facility]/ZIP Co de Phone Number [facility] [address] [place] [address], [facility] [address] [place] [address] * (ABNORMAL) CBC no call back, reflex T/S HGB <8 (04/14/2023 4:13 AM CLIENT REPRESENTATIVE) Hemoglobin 8.0(L) 11.6 - 15.0 g/dL 04/14/2023 4:55 AM CLIENT REPRESENTATIVE DTL Hematocrit 25.1(L) 35.5 - 44.9 % 04/14/2023 4:55 AM CLIENT REPRESENTATIVE DTL Erythrocytes 2.47(L) 3.92 - 5.13 x10(12)/L 04/14/2023 4:55 AM CLIENT REPRESENTATIVE DTL MCV 101.6(H) 78.2 - 97.9 fL 04/14/2023 4:55 AM CLIENT REPRESENTATIVE DTL RBC Distrib Width 15.9 12.2 - 16.1 % 04/14/2023 4:55 AM CLIENT REPRESENTATIVE DTL Platelet Count 63(L) 157 - 371 x10(9)/L 04/14/2023 4:55 AM CLIENT REPRESENTATIVE DTL Leukocytes 4.9 3.4 - 9.6 x10(9)/L 04/14/2023 4:55 AM CLIENT REPRESENTATIVE DTL Neutrophils 3.79 1.56 - 6.45 x10(9)/L 04/14/2023 4:55 AM CLIENT REPRESENTATIVE DHPM Lymphocytes 0.80(L) 0.95 - 3.07 x10(9)/L 04/14/2023 4:55 AM CLIENT REPRESENTATIVE DTL Monocytes 0.32 0.26 - 0.81 x10(9)/L 04/14/2023 4:55 AM CLIENT REPRESENTATIVE DTL Eosinophils <0.03 0.03 - 0.48 x10(9)/L 04/14/2023 4:55 AM CLIENT REPRESENTATIVE DTL Basophils <0.03 0.01 - 0.08 x10(9)/L 04/14/2023 4:55 AM CLIENT REPRESENTATIVE DTL Blood (Blood, Venous) 04/14/2023 4:13 AM CLIENT REPRESENTATIVE 04/14/2023 4:44 AM CLIENT REPRESENTATIVE Vitor Casas P.A.-C., M.S. LAB BLOOD NON ADD-ON [facility] [address] [place] [address], [facility] DTL [facility] [address] [place] [address] [address] * (ABNORMAL) Calcium, Ionized (04/13/2023 8:26 PM CLIENT REPRESENTATIVE) Pathologist [facility] Calcium, Ionized, S 5.61(H) 4.57 - 5.43 mg/dL 04/13/2023 9:03 PM CLIENT REPRESENTATIVE DTL Comment: ----ADDITIONAL INFORMATION---- This test has been modified from the computer technical support specialist's instructions. Its performance characteristics were determined by [facility] in a manner consistent with CLIA requirements. This test has not been cleared or approved by the U.S. Food and Drug Administration. pH for Ionized Calcium 7.49(H) 7.35 - 7.48 04/13/2023 9:03 PM CLIENT REPRESENTATIVE DTL Blood (Blood, Venous) 04/13/2023 8:26 PM CLIENT REPRESENTATIVE 04/13/2023 8:45 PM CLIENT REPRESENTATIVE Vitor Casas P.A.-C., M.S. [place] [address] * (ABNORMAL) Basic Metabolic Panel (04/13/2023 8:26 PM CLIENT REPRESENTATIVE) Pathologist [facility] Potassium, S 3.8 3.6 - 5.2 mmol/L 04/13/2023 9:07 PM CLIENT REPRESENTATIVE DTL Sodium, S 145 135 - 145 mmol/L 04/13/2023 9:07 PM CLIENT REPRESENTATIVE DTL Chloride, S 111(H) 98 - 107 mmol/L 04/13/2023 9:07 PM CLIENT REPRESENTATIVE DTL Bicarbonate, S 27 22 - 29 mmol/L 04/13/2023 9:07 PM CLIENT REPRESENTATIVE DTL Anion Gap 7 7 - 15 04/13/2023 9:07 PM CLIENT REPRESENTATIVE DTL BUN (Blood Urea Nitrogen), S 27(H) 6 - 21 mg/dL 04/13/2023 9:07 PM CLIENT REPRESENTATIVE DTL Creatinine 1.37(H) 0.59 - 1.04 mg/dL 04/13/2023 9:07 PM CLIENT REPRESENTATIVE DTL Estimated GFR (eGFR) 39(L) >=60 mL/min/BSA 04/13/2023 9:07 PM CLIENT REPRESENTATIVE DTL Comment: Estimated GFR calculated using the 2020 CKD_EPI creatinine equation. Calcium, Total, S 9.5 8.8 - 10.2 mg/dL 04/13/2023 9:07 PM CLIENT REPRESENTATIVE DTL Glucose, S 101 70 - 140 mg/dL 04/13/2023 9:07 PM CLIENT REPRESENTATIVE DTL Blood (Blood, Venous) 04/13/2023 8:26 PM CLIENT REPRESENTATIVE 04/13/2023 8:45 PM CLIENT REPRESENTATIVE Marialuisa Stark P.A.-C. LAB BLOOD ADD- ON Performing Organization Address City/[facility]/ZIP Co de Phone Number [facility] [address] [place] [address] * Uric Acid (04/13/2023 8:26 PM CLIENT REPRESENTATIVE) Uric Acid, S 6.1 2.7 - 6.1 mg/dL 04/13/2023 9:07 PM CLIENT REPRESENTATIVE DTL Blood (Blood, Venous) 04/13/2023 8:26 PM CLIENT REPRESENTATIVE 04/13/2023 8:45 PM CLIENT REPRESENTATIVE Marialuisa Stark P.A.-C. LAB BLOOD ADD- ON [facility] [address] [place] [address] * Phosphorus Inorganic (04/13/2023 8:26 PM CLIENT REPRESENTATIVE) Phosphorus (Inorganic), S 3.4 2.5 - 4.5 mg/dL 04/13/2023 9:07 PM CLIENT REPRESENTATIVE DTL Blood (Blood, Venous) 04/13/2023 8:26 PM CLIENT REPRESENTATIVE 04/13/2023 8:45 PM CLIENT REPRESENTATIVE Marialuisa Stark P.A.-C. LAB BLOOD ADD- ON Performing Organization Address City/[facility]/ZIP Co de Phone Number [facility] [address] [place] [address], [facility] DTL [facility] [address] [place] [address] * Glucose, POCT (04/13/2023 2:21 PM CLIENT REPRESENTATIVE) Pathologist [facility] Glucose, POCT, B 99 70 - 140 mg/dL 04/13/2023 2:23 PM CLIENT REPRESENTATIVE PCDE Site Capillary 04/13/2023 2:23 PM CLIENT REPRESENTATIVE PCDE Last Intake > 4 hours 04/13/2023 2:23 PM CLIENT REPRESENTATIVE PCDE Blood 04/13/2023 2:21 PM CLIENT REPRESENTATIVE 04/13/2023 2:24 PM CLIENT REPRESENTATIVE Unknown Provider LAB POCT ORDERABLES- MANUAL Performing Organization Address City/[facility]/ZIP Co de Phone Number [facility] [address] [place] [address], [facility] PCDE [facility] [address] [place] [address] * (ABNORMAL) Basic Metabolic Panel (04/13/2023 12:20 PM CLIENT REPRESENTATIVE) Potassium, S 4.1 3.6 - 5.2 mmol/L 04/13/2023 1:11 PM CLIENT REPRESENTATIVE DTL Sodium, S 143 135 - 145 mmol/L 04/13/2023 1:11 PM CLIENT REPRESENTATIVE DTL Chloride, S 108(H) 98 - 107 mmol/L 04/13/2023 1:11 PM CLIENT REPRESENTATIVE DTL Bicarbonate, S 28 22 - 29 mmol/L 04/13/2023 1:11 PM CLIENT REPRESENTATIVE DTL Anion Gap 7 7 - 15 04/13/2023 1:11 PM CLIENT REPRESENTATIVE DTL BUN (Blood Urea Nitrogen), S 24(H) 6 - 21 mg/dL 04/13/2023 1:11 PM CLIENT REPRESENTATIVE DTL Creatinine 1.40(H) 0.59 - 1.04 mg/dL 04/13/2023 1:11 PM CLIENT REPRESENTATIVE DTL Estimated GFR (eGFR) 38(L) >=60 mL/min/BSA 04/13/2023 1:11 PM CLIENT REPRESENTATIVE DTL Comment: Estimated GFR calculated using the 2020 CKD_EPI creatinine equation. Calcium, Total, S 10.4(H) 8.8 - 10.2 mg/dL 04/13/2023 1:11 PM CLIENT REPRESENTATIVE DTL Glucose, S 112 70 - 140 mg/dL 04/13/2023 1:11 PM CLIENT REPRESENTATIVE DTL Blood (Blood, Venous) 04/13/2023 12:20 PM CLIENT REPRESENTATIVE 04/13/2023 12:45 PM CLIENT REPRESENTATIVE Marialuisa Stark P.A.-C. LAB BLOOD ADD- ON Performing Organization Address City/[facility]/ZIP Co de Phone Number [facility] [address] [place] [address], [address] [address] * (ABNORMAL) Uric Acid (04/13/2023 12:20 PM CLIENT REPRESENTATIVE) Uric Acid, S 6.5(H) 2.7 - 6.1 mg/dL 04/13/2023 1:11 PM CLIENT REPRESENTATIVE DTL Blood (Blood, Venous) 04/13/2023 12:20 PM CLIENT REPRESENTATIVE 04/13/2023 12:45 PM CLIENT REPRESENTATIVE Marialuisa Stark P.A.-C. LAB BLOOD ADD- ON [facility] [address] [place] [address], [facility] [address] [place] [address] * Phosphorus Inorganic (04/13/2023 12:20 PM CLIENT REPRESENTATIVE) Phosphorus (Inorganic), S 3.9 2.5 - 4.5 mg/dL 04/13/2023 1:11 PM CLIENT REPRESENTATIVE DTL Blood (Blood, Venous) 04/13/2023 12:20 PM CLIENT REPRESENTATIVE 04/13/2023 12:45 PM CLIENT REPRESENTATIVE Marialuisa Stark P.A.-C. LAB BLOOD ADD- ON [facility] [address] [place] [address], [facility] DTL [facility] [place] [address] [place] [address] * (TTE) 2D ECHO DOPPLER COLOR (04/13/2023 10:33 AM CLIENT REPRESENTATIVE) Pathologist [facility] Ejection Fraction 62 MC CV [...] Region Laterality Modality Other 04/13/2023 9:33 AM CLIENT REPRESENTATIVE Impressions 04/13/2023 11:42 AM CLIENT REPRESENTATIVE Echo performed at the patient's bedside at [facility]. There are no previous [facility] echocardiograms available for comparison. Anemia, thyrotoxicosis, or [...] the Order-Level Documents. Narrative 04/13/2023 11:42 AM CLIENT REPRESENTATIVE For the complete report, see the Order-Level [...] Echo performed at the patient's bedside at [facility]. There are no previous [facility] echocardiograms available for comparison. Anemia, thyrotoxicosis,or another [...] P.A.-C. CV ECHO P ROCEDURES * (ABNORMAL) Basic Metabolic Panel (04/13/2023 6:07 AM CLIENT REPRESENTATIVE) Potassium, S 4.1 3.6 - 5.2 mmol/L 04/13/2023 7:25 AM CLIENT REPRESENTATIVE DTL Sodium, S 144 135 - 145 mmol/L 04/13/2023 7:25 AM CLIENT REPRESENTATIVE DTL Chloride, S 107 98 - 107 mmol/L 04/13/2023 7:25 AM CLIENT REPRESENTATIVE DTL Bicarbonate, S 30(H) 22 - 29 mmol/L 04/13/2023 7:25 AM CLIENT REPRESENTATIVE DTL Anion Gap 7 7 - 15 04/13/2023 7:25 AM CLIENT REPRESENTATIVE DTL BUN (Blood Urea Nitrogen), S 24(H) 6 - 21 mg/dL 04/13/2023 7:25 AM CLIENT REPRESENTATIVE DTL Creatinine 1.30(H) 0.59 - 1.04 mg/dL 04/13/2023 7:25 AM CLIENT REPRESENTATIVE DTL Estimated GFR (eGFR) 41(L) >=60 mL/min/BSA 04/13/2023 7:25 AM CLIENT REPRESENTATIVE DTL Comment: Estimated GFR calculated using the 2020 CKD_EPI creatinine equation. Calcium, Total, S 10.9(H) 8.8 - 10.2 mg/dL 04/13/2023 7:25 AM CLIENT REPRESENTATIVE DTL Glucose, S 115 70 - 140 mg/dL 04/13/2023 7:25 AM CLIENT REPRESENTATIVE DTL Blood (Blood, Venous) 04/13/2023 6:07 AM CLIENT REPRESENTATIVE 04/13/2023 6:59 AM CLIENT REPRESENTATIVE Marialuisa Stark P.A.-C. LAB BLOOD ADD- ON Performing Organization Address City/[facility]/ZIP Co de Phone Number [facility] [address] [place] [address], [facility] [address] [place] [address] * (ABNORMAL) Uric Acid (04/13/2023 6:07 AM CLIENT REPRESENTATIVE) Uric Acid, S 6.6(H) 2.7 - 6.1 mg/dL 04/13/2023 7:25 AM CLIENT REPRESENTATIVE DTL Blood (Blood, Venous) 04/13/2023 6:07 AM CLIENT REPRESENTATIVE 04/13/2023 6:59 AM CLIENT REPRESENTATIVE Marialuisa Stark P.A.-C. LAB BLOOD ADD- ON Performing Organization Address [facility]/ZIP Co de Phone Number [facility] [address] [place] [address], [facility] [address] [place] [address] * Phosphorus Inorganic (04/13/2023 6:07 AM CLIENT REPRESENTATIVE) Phosphorus (Inorganic), S 3.5 2.5 - 4.5 mg/dL 04/13/2023 7:25 AM CLIENT REPRESENTATIVE DTL Blood (Blood, Venous) 04/13/2023 6:07 AM CLIENT REPRESENTATIVE 04/13/2023 6:59 AM CLIENT REPRESENTATIVE Marialuisa Stark P.A.-C. LAB BLOOD ADD- ON [facility] [address] [place] [address], [facility] [address] [place] [address] * (ABNORMAL) Calcium, Ionized (04/13/2023 6:07 AM CLIENT REPRESENTATIVE) Calcium, Ionized, S 6.09(H) 4.57 - 5.43 mg/dL 04/13/2023 7:18 AM CLIENT REPRESENTATIVE DTL Comment: ----ADDITIONAL INFORMATION---- This test has been modified from the computer technical support specialist's instructions. Its performance characteristics were determined by [facility] in a manner consistent with CLIA requirements. This test has not been cleared or approved by the U.S. Food and Drug Administration. pH for Ionized Calcium 7.51(H) 7.35 - 7.48 04/13/2023 7:18 AM CLIENT REPRESENTATIVE DTL Blood (Blood, Venous) 04/13/2023 6:07 AM CLIENT REPRESENTATIVE 04/13/2023 6:58 AM CLIENT REPRESENTATIVE Marialuisa Stark P.A.-C. LAB BLOOD NON ADD-ON [address] [address], [place] [address] * (ABNORMAL) Alkaline Phosphatase, Total and Isoenzymes (04/13/2023 6:07 AM CLIENT REPRESENTATIVE) Pathologist [facility] Alkaline Phosphatase, S 169(H) 35 - 104 U/L 04/13/2023 7:14 AM CLIENT REPRESENTATIVE DTL Liver 1 % 54.2 27.8 - 76.3 % 04/13/2023 2:08 PM CLIENT REPRESENTATIVE DTL Liver 1 91.6(H) 16.2 - 70.2 IU/L 04/13/2023 2:08 PM CLIENT REPRESENTATIVE DTL Liver 2 % 26.5(H) 0.0 - 8.0 % 04/13/2023 2:08 PM CLIENT REPRESENTATIVE DTL Liver 2 44.8(H) 0.0 - 5.8 IU/L 04/13/2023 2:08 PM CLIENT REPRESENTATIVE DTL Bone % 17.8(L) 19.1 - 67.7 % 04/13/2023 2:08 PM CLIENT REPRESENTATIVE DTL Bone 30.1 12.1 - 42.7 IU/L 04/13/2023 2:08 PM CLIENT REPRESENTATIVE DTL Intestine % 1.5 0.0 - 20.6 % 04/13/2023 2:08 PM CLIENT REPRESENTATIVE DTL Intestine 2.5 0.0 - 11.0 IU/L 04/13/2023 2:08 PM CLIENT REPRESENTATIVE DTL Placental Not Present Not present 04/13/2023 2:08 PM CLIENT REPRESENTATIVE DTL Blood (Blood, Venous) 04/13/2023 6:07 AM CLIENT REPRESENTATIVE 04/13/2023 6:59 AM CLIENT REPRESENTATIVE Narrative [facility] - 04/13/2023 2:08 PM CLIENT REPRESENTATIVE Specimen Information: Specimen ID: [id number] Specimen Type: Blood Specimen Collection Start Date: 04/13/2023 ??6:07 AM Specimen Received Date: 04/13/2023 ??6:59 AM Specimen ID: [id number] Specimen Type: Blood Specimen Collection Start Date: 04/13/2023 ??6:07 AM Specimen Received Date: 04/13/2023 ??7:42 AM Becka Suarez P.A.-C. [place] [address] * (ABNORMAL) CBC no call back, reflex T/S HGB <8 (04/13/2023 6:07 AM CLIENT REPRESENTATIVE) Hemoglobin 8.1(L) 11.6 - 15.0 g/dL 04/13/2023 6:54 AM CLIENT REPRESENTATIVE DTL Hematocrit 25.6(L) 35.5 - 44.9 % 04/13/2023 6:54 AM CLIENT REPRESENTATIVE DTL Erythrocytes 2.54(L) 3.92 - 5.13 x10(12)/L 04/13/2023 6:54 AM CLIENT REPRESENTATIVE DTL MCV 100.8(H) 78.2 - 97.9 fL 04/13/2023 6:54 AM CLIENT REPRESENTATIVE DTL RBC Distrib Width 15.4 12.2 - 16.1 % 04/13/2023 6:54 AM CLIENT REPRESENTATIVE DTL Platelet Count 73(L) 157 - 371 x10(9)/L 04/13/2023 6:54 AM CLIENT REPRESENTATIVE DTL Leukocytes 3.7 3.4 - 9.6 x10(9)/L 04/13/2023 6:54 AM CLIENT REPRESENTATIVE DTL Neutrophils 1.77 1.56 - 6.45 x10(9)/L 04/13/2023 6:54 AM CLIENT REPRESENTATIVE [facility] Lymphocytes 1.47 0.95 - 3.07 x10(9)/L 04/13/2023 6:54 AM CLIENT REPRESENTATIVE DTL Monocytes 0.37 0.26 - 0.81 x10(9)/L 04/13/2023 6:54 AM CLIENT REPRESENTATIVE DTL Eosinophils 0.06 0.03 - 0.48 x10(9)/L 04/13/2023 6:54 AM CLIENT REPRESENTATIVE DTL Basophils <0.03 0.01 - 0.08 x10(9)/L 04/13/2023 6:54 AM CLIENT REPRESENTATIVE DTL Blood (Blood, Venous) 04/13/2023 6:07 AM CLIENT REPRESENTATIVE 04/13/2023 6:47 AM CLIENT REPRESENTATIVE Becka Suarez P.A.-C. LAB BLOOD NON ADD-ON [facility] [address] [place] [address], [facility] DTL [facility] [address] [place] [address] [facility] [address] [place] [address] * Magnesium (04/13/2023 6:07 AM CLIENT REPRESENTATIVE) Magnesium, S 2.0 1.7 - 2.3 mg/dL 04/13/2023 7:14 AM CLIENT REPRESENTATIVE DTL Blood (Blood, Venous) 04/13/2023 6:07 AM CLIENT REPRESENTATIVE 04/13/2023 6:59 AM CLIENT REPRESENTATIVE Becka Suarez P.A.-C. LAB BLOOD ADD-ON Performing Organization Address [facility] [place] [address] * (ABNORMAL) Calcium, Ionized (04/12/2023 9:57 PM CLIENT REPRESENTATIVE) Calcium, Ionized, S 6.93(CH) 4.57 - 5.43 mg/dL 04/12/2023 10:39 PM CLIENT REPRESENTATIVE DT Comment: ----ADDITIONAL INFORMATION---- This test has been modified from the computer technical support specialist's instructions. Its performance characteristics were determined by [facility] in a manner consistent with CLIA requirements. This test has not been cleared or approved by the U.S. Food and Drug Administration. pH for Ionized Calcium 7.45 7.35 - 7.48 04/12/2023 10:39 PM CLIENT REPRESENTATIVE DT Blood (Blood, Venous) 04/12/2023 9:57 PM CLIENT REPRESENTATIVE 04/12/2023 10:26 PM CLIENT REPRESENTATIVE Marialuisa Stark P.A.-C. LAB BLOOD NON ADD-ON Performing Organization Address [facility] [place] [address] * VRE PCR (04/12/2023 6:03 PM CLIENT REPRESENTATIVE) Specimen Source Swab, Perianal 04/13/2023 10:00 PM CLIENT REPRESENTATIVE DTL VRE PCR Negative Negative 04/13/2023 10:00 PM CLIENT REPRESENTATIVE DT Comment: ----ADDITIONAL INFORMATION---- This test was developed using an analyte specific reagent. Its performance characteristics were determined by [facility] in a manner consistent with CLIA requirements. This test has not been cleared or approved by the U.S. Food and Drug Administration. Swab (Perianal) 04/12/2023 6 :03 PM CLIENT REPRESENTATIVE 04/12/2023 6:55 PM CLIENT REPRESENTATIVE Ariel Sevilla M.D. LAB MICROBIOLOGY - GENERAL ORDERABLES Performing Organization Address City/[facility]/ZIP Co de Phone Number [facility] [address] [place] [address], [facility] 200 [place] [address] * (ABNORMAL) Uric Acid (04/12/2023 6:03 PM CLIENT REPRESENTATIVE) Uric Acid, S 6.6(H) 2.7 - 6.1 mg/dL 04/12/2023 6:52 PM CLIENT REPRESENTATIVE DTL Blood (Blood, Venous) 04/12/2023 6:03 PM CLIENT REPRESENTATIVE 04/12/2023 6:27 PM CLIENT REPRESENTATIVE Becka Suarez P.A.-C. LAB BLOOD ADD-ON Performing Organization Address City/[facility]/ZIP Co de Phone Number [address] [place] [address] * Phosphorus Inorganic (04/12/2023 6:03 PM CLIENT REPRESENTATIVE) Phosphorus (Inorganic), S 3.9 2.5 - 4.5 mg/dL 04/12/2023 6:52 PM CLIENT REPRESENTATIVE DTL Blood (Blood, Venous) 04/12/2023 6:03 PM CLIENT REPRESENTATIVE 04/12/2023 6:27 PM CLIENT REPRESENTATIVE Becka Suaerz P.A.-C. LAB BLOOD ADD-ON Performing Organization Address City/[facility]/ZIP Co de Phone Number [facility] [address] [place] [address] * (ABNORMAL) Basic Metabolic Panel (04/12/2023 6:03 PM CLIENT REPRESENTATIVE) Potassium, S 4.4 3.6 - 5.2 mmol/L 04/12/2023 6:52 PM CLIENT REPRESENTATIVE DTL Sodium, S 143 135 - 145 mmol/L 04/12/2023 6:52 PM CLIENT REPRESENTATIVE DTL Chloride, S 104 98 - 107 mmol/L 04/12/2023 6:52 PM CLIENT REPRESENTATIVE DTL Bicarbonate, S 31(H) 22 - 29 mmol/L 04/12/2023 6:52 PM CLIENT REPRESENTATIVE DTL Anion Gap 8 7 - 15 04/12/2023 6:52 PM CLIENT REPRESENTATIVE DTL BUN (Blood Urea Nitrogen), S 28(H) 6 - 21 mg/dL 04/12/2023 6:52 PM CLIENT REPRESENTATIVE DTL Creatinine 1.41(H) 0.59 - 1.04 mg/dL 04/12/2023 6:52 PM CLIENT REPRESENTATIVE DTL Estimated GFR (eGFR) 37(L) >=60 mL/min/BSA 04/12/2023 6:52 PM CLIENT REPRESENTATIVE DTL Comment: Estimated GFR calculated using the 2020 CKD_EPI creatinine equation. Calcium, Total, S 11.9(H) 8.8 - 10.2 mg/dL 04/12/2023 6:52 PM CLIENT REPRESENTATIVE DTL Glucose, S 111 70 - 140 mg/dL 04/12/2023 6:52 PM CLIENT REPRESENTATIVE DTL Blood (Blood, Venous) 04/12/2023 6:03 PM CLIENT REPRESENTATIVE 04/12/2023 6:27 PM CLIENT REPRESENTATIVE Becka Suarez P.A.-C. LAB BLOOD ADD-ON [place] [address] [facility] [address] [place] [address] * (ABNORMAL) Calcium, Ionized (04/12/2023 6:03 PM CLIENT REPRESENTATIVE) Pathologist [facility] Calcium, Ionized, S 6.93(CH) 4.57 - 5.43 mg/dL 04/12/2023 6:42 PM CLIENT REPRESENTATIVE DTL Comment: ----ADDITIONAL INFORMATION---- This test has been modified from the computer technical support specialist's instructions. Its performance characteristics were determined by [facility] in a manner consistent with CLIA requirements. This test has not been cleared or approved by the U.S. Food and Drug Administration. pH for Ionized Calcium 7.41 7.35 - 7.48 04/12/2023 6:42 PM CLIENT REPRESENTATIVE DTL Blood (Blood, Venous) 04/12/2023 6:03 PM CLIENT REPRESENTATIVE 04/12/2023 6:27 PM CLIENT REPRESENTATIVE Syed Palmer LAB BLOO D NON ADD-ON [facility] [address] [place] [address], [facility] DTL [facility] [address] [place] [address] * DX Abdomen Portable Anterior Posterior 1 View (04/12/2023 5:30 PM CLIENT REPRESENTATIVE) Anatomical Region Laterality Modality Abdomen, Abdominal RST LOS, Abdominal ARZ LOS, Abdominal FLA LOS N/A Digital Radiography Impressions 04/12/2023 6:25 PM CLIENT REPRESENTATIVE Subdiaphragmatic enteric tube tip projects over the distal gastric body. Narrative 04/12/2023 6:25 PM CLIENT REPRESENTATIVE EXAM: ??DX ABDOMEN PORTABLE ANTERIOR POSTERIOR 1 VIEW Procedure Note Agatha Reza M.D. - 04/12/2023 EXAM: DX ABDOMEN PORTABLE ANTERIOR POSTERIOR 1 VIEW IMPRESSION: Subdiaphragmatic enteric tube tip projects over the distal gastric body. Becka Suarez P.A.-C. IMG DIAGN OSTIC IMAGING PROCEDURES * pH (04/12/2023 12:41 PM CLIENT REPRESENTATIVE) pH 7.42 7.35 - 7.45 pH 04/12/2023 12:49 PM CLIENT REPRESENTATIVE STMA Blood 04/12/2023 12:4 1 PM CLIENT REPRESENTATIVE 04/12/2023 12:47 PM CLIENT REPRESENTATIVE Becka Suarez P.A.-C. LAB HISTO RICAL ORDERS [facility] [address] [place] [address] * (ABNORMAL) Calcium, Ionized (04/12/2023 12:41 PM CLIENT REPRESENTATIVE) Pathologist [facility] Calcium, Ionized, B 6.67(CH) 4.65 - 5.30 mg/dL 04/12/2023 2:13 PM CLIENT REPRESENTATIVE [facility] Blood (Blood, Venous) 04/12/2023 12:41 PM CLIENT REPRESENTATIVE 04/12/2023 12:47 PM CLIENT REPRESENTATIVE Becka Suarez P.A.-C. LAB BLOOD NON ADD-ON [facility] 200 [place] [address] * Phosphorus Inorganic (04/12/2023 12:41 PM CLIENT REPRESENTATIVE) [facility] Phosphorus (Inorganic), S 3.6 2.5 - 4.5 mg/dL 04/12/2023 1:59 PM CLIENT REPRESENTATIVE DTL Blood (Blood, Venous) 04/12/2023 12:41 PM CLIENT REPRESENTATIVE 04/12/2023 1:25 PM CLIENT REPRESENTATIVE Becka Suarez P.A.-C. LAB BLOOD ADD-ON [facility] [address] [place] [address] * (ABNORMAL) Uric Acid (04/12/2023 12:41 PM CLIENT REPRESENTATIVE) Pathologist [facility] Uric Acid, S 6.9(H) 2.7 - 6.1 mg/dL 04/12/2023 1:59 PM CLIENT REPRESENTATIVE DTL Blood (Blood, Venous) 04/12/2023 12:41 PM CLIENT REPRESENTATIVE 04/12/2023 1:25 PM CLIENT REPRESENTATIVE Becka Suarez P.A.-C. LAB BLOOD ADD-ON [facility] [address] [place] [address], [facility] [address] [place] [address] * (ABNORMAL) Lhvt-1-Arhhsaijzealy (Beta-2-M) (04/12/2023 12:41 PM CLIENT REPRESENTATIVE) [facility] Yhnj-4-Lpoopaw obulin, S 12.10(H) 1.21 - 2.70 mcg/mL 04/12/2023 5:59 PM CLIENT REPRESENTATIVE [facility] Blood (Blood, Venous) 04/12/2023 12:41 PM CLIENT REPRESENTATIVE 04/12/2023 5:00 PM CLIENT REPRESENTATIVE Becka Suarez P.A.-C. LAB BLOOD ADD-ON [facility] [address] [place] [address] [facility] [address] [place] [address] * LD (Lactate Dehydrogenase) (04/12/2023 12:41 PM CLIENT REPRESENTATIVE) [facility] LD 140 122 - 222 U/L 04/12/2023 1:44 PM CLIENT REPRESENTATIVE [facility] Blood (Blood, Venous) 04/12/2023 12:41 PM CLIENT REPRESENTATIVE 04/12/2023 1:28 PM CLIENT REPRESENTATIVE Becka Suarez P.A.-C. LAB BLOOD NON ADD-ON [facility] [address] [place] [address], [place] [facility] [address] [place] [address] * Glucose 6 Phosphate Dehydrogenase Enzyme Activity (04/12/2023 12:41 PM CLIENT REPRESENTATIVE) [facility] G6PD Enzyme Activity, B 11.3 8.0 - 11.9 U/g Hb 04/12/2023 4:02 PM CLIENT REPRESENTATIVE DTL Comment: G6PD deficiency can be masked in the setting of reticulocytosis, markedly elevated WBCs or recent transfusion. If any of these are present in the setting of , chronic, or episodic jaundice/anemia, genotyping is recommended. If desired, please order G6PDZ/G6PD Full Gene Sequencing, V. ----ADDITIONAL INFORMATION---- This test was developed and its performance characteristics determined by [facility] in a manner consistent with CLIA requirements. This test has not been cleared or approved by the U.S. Food and Drug Administration. Blood (Blood, Venous) 04/12/2023 12:41 PM CLIENT REPRESENTATIVE 04/12/2023 1:22 PM CLIENT REPRESENTATIVE Becka Suarez P.A.-C. LAB BLOOD ADD-ON [facility] [address] [place] [address], [facility] [address] [place] [address] * (ABNORMAL) Comprehensive Metabolic Panel (04/12/2023 12:41 PM CLIENT REPRESENTATIVE) [facility] Potassium, S 4.0 3.6 - 5.2 mmol/L 04/12/2023 1:59 PM CLIENT REPRESENTATIVE DTL Sodium, S 141 135 - 145 mmol/L 04/12/2023 1:59 PM CLIENT REPRESENTATIVE DTL Chloride, S 104 98 - 107 mmol/L 04/12/2023 1:59 PM CLIENT REPRESENTATIVE DTL Bicarbonate, S 30(H) 22 - 29 mmol/L 04/12/2023 1:59 PM CLIENT REPRESENTATIVE DTL Anion Gap 7 7 - 15 04/12/2023 1:59 PM CLIENT REPRESENTATIVE DTL BUN (Blood Urea Nitrogen), S 26(H) 6 - 21 mg/dL 04/12/2023 1:59 PM CLIENT REPRESENTATIVE DTL Creatinine 1.35(H) 0.59 - 1.04 mg/dL 04/12/2023 1:59 PM CLIENT REPRESENTATIVE DTL Estimated GFR (eGFR) 39(L) >=60 mL/min/BS A 04/12/2023 1:59 PM CLIENT REPRESENTATIVE DTL Comment: Estimated GFR calculated using the 2020 CKD_EPI creatinine equation. Calcium, Total, S 11.7(H) 8.8 - 10.2 mg/dL 04/12/2023 1:59 PM CLIENT REPRESENTATIVE DTL Glucose, S 132 70 - 140 mg/dL 04/12/2023 1:59 PM CLIENT REPRESENTATIVE DTL Protein, Total, S 5.6(L) 6.3 - 7.9 g/dL 04/12/2023 1:59 PM CLIENT REPRESENTATIVE DTL Albumin, S 3.3(L) 3.5 - 5.0 g/dL 04/12/2023 1:59 PM CLIENT REPRESENTATIVE DTL Aspartate Aminotransferase (AST), S 24 8 - 43 U/L 04/12/2023 1:59 PM CLIENT REPRESENTATIVE DTL Alkaline Phosphatase, S 181(H) 35 - 104 U/L 04/12/2023 1:59 PM CLIENT REPRESENTATIVE DTL Alanine Aminotransferase (ALT), S 21 7 - 45 U/L 04/12/2023 1:59 PM CLIENT REPRESENTATIVE DTL Bilirubin, Total, S 0.2 0.0 - 1.2 mg/dL 04/12/2023 1:59 PM CLIENT REPRESENTATIVE DTL Blood (Blood, Venous) 04/12/2023 12:41 PM CLIENT REPRESENTATIVE 04/12/2023 1:25 PM CLIENT REPRESENTATIVE Becka Suarez P.A.-C. LAB BLOOD ADD-ON [facility] [address] [place] [address], [facility] [address] [place] [address] * (ABNORMAL) CBC no call back, reflex T/S HGB <8 (04/12/2023 12:41 PM CLIENT REPRESENTATIVE) Hemoglobin 8.5(L) 11.6 - 15.0 g/dL 04/12/2023 1:17 PM CLIENT REPRESENTATIVE DTL Hematocrit 26.4(L) 35.5 - 44.9 % 04/12/2023 1:17 PM CLIENT REPRESENTATIVE DTL Erythrocytes 2.62(L) 3.92 - 5.13 x10(12)/L 04/12/2023 1:17 PM CLIENT REPRESENTATIVE DTL MCV 100.8(H) 78.2 - 97.9 fL 04/12/2023 1:17 PM CLIENT REPRESENTATIVE DTL RBC Distrib Width 15.9 12.2 - 16.1 % 04/12/2023 1:17 PM CLIENT REPRESENTATIVE DTL Platelet Count 74(L) 157 - 371 x10(9)/L 04/12/2023 1:17 PM CLIENT REPRESENTATIVE DTL Leukocytes 3.6 3.4 - 9.6 x10(9)/L 04/12/2023 1:17 PM CLIENT REPRESENTATIVE DTL Neutrophils 1.47(L) 1.56 - 6.45 x10(9)/L 04/12/2023 1:17 PM CLIENT REPRESENTATIVE [facility] Lymphocytes 1.68 0.95 - 3.07 x10(9)/L 04/12/2023 1:17 PM CLIENT REPRESENTATIVE DTL Monocytes 0.36 0.26 - 0.81 x10(9)/L 04/12/2023 1:17 PM CLIENT REPRESENTATIVE DTL Eosinophils 0.06 0.03 - 0.48 x10(9)/L 04/12/2023 1:17 PM CLIENT REPRESENTATIVE DTL Basophils <0.03 0.01 - 0.08 x10(9)/L 04/12/2023 1:17 PM CLIENT REPRESENTATIVE DTL Blood (Blood, Venous) 04/12/2023 12:41 PM CLIENT REPRESENTATIVE 04/12/2023 1:10 PM CLIENT REPRESENTATIVE Becka Suarez P.A.-C. LAB BLOOD NON ADD-ON [facility] [address] [place] [address], [facility] DTL [facility] [place] [address] [place] [address] [facility] [address] [place] [address] * SARS Coronavirus 2, PCR Rapid Symptomatic (04/11/2023 3:29 PM CLIENT REPRESENTATIVE) SARS CoV-2, PCR, Rapid, V Undetected Undetected 04/11/2023 3:58 PM CLIENT REPRESENTATIVE STMA Comment: ----ADDITIONAL INFORMATION---- This RT-PCR test was performed using the Sherry SARS-CoV-2 and Influenza A/B Reagent assay from [employer], which has received Emergency Use Authorization(EUA) by the U.S. Food and Drug Administration. Fact sheets for this Emergency Use Authorization (EUA) assay can be found at the following links: For Healthcare Providers: https://www.fda.gov/media/989654/download For Patients: https://www.fda.gov/media/067156/download SARS Coronavirus 2, Rapid, Source Swab, Nasopharynx 04/11/2023 3:37 PM CLIENT REPRESENTATIVE [facility] Swab (Nasopharynx) 04/11/2023 3:29 PM CLIENT REPRESENTATIVE 04/11/2023 3:37 PM CLIENT REPRESENTATIVE Syed HedrickSAdalid LAB MICR OBIOLOGY - GENERAL ORDERABLES Performing Organization Address [facility] de Phone Number [facility] [address] [place] [address] * HIV-1/-2 Ag and Ab Screen, Plasma (04/11/2023 6:49 AM CLIENT REPRESENTATIVE) [facility] HIV-1/-2 Ag and Ab Screen, P Negative Negative 04/11/2023 10:21 AM CLIENT REPRESENTATIVE [facility] Comment: Negative result does not rule out HIV infection. If exposure to HIV infection occurred <14 days ago, contact the laboratory to request addition of HIV-1/HIV-2 RNA detection, Plasma (HIP12). Blood (Blood, Venous) 04/11/2023 6:49 AM CLIENT REPRESENTATIVE 04/11/2023 9:28 AM CLIENT REPRESENTATIVE Syed HedrickSAdalid LAB MICR OBIOLOGY - BLOOD ORDERABLES Performing Organization Address City/[facility]/ZIP Co de Phone Number [facility] [address] [place] [address] [facility] [address] [place] [address] * HCV Ab w/Reflex to HCV PCR, Serum (04/11/2023 6:49 AM CLIENT REPRESENTATIVE) HCV Ab, S Negative Negative 04/11/2023 10:37 AM CLIENT REPRESENTATIVE [facility] Comment:Txpjah-hx-zfhcio rat io is <1.00. Blood (Blood, Peripheral Draw) 04/11/2023 6:49 AM CLIENT REPRESENTATIVE 04/11/2023 9:28 AM CLIENT REPRESENTATIVE Syed HedrickSAdalid LAB MICR OBIOLOGY - BLOOD ORDERABLES [facility] [address] [place] [address] [facility] [address] [place] [address] * (ABNORMAL) Immunoglobulins (IgG, IgA, and IgM) (04/10/2023 7:54 AM CLIENT REPRESENTATIVE) Pathologist [facility] Immunoglobulin A (IgA), S 360(H) 61 - 356 mg/dL 04/10/2023 1:46 PM CLIENT REPRESENTATIVE SDS Immunoglobulin M (IgM), S 792(H) 37 - 286 mg/dL 04/10/2023 2:10 PM CLIENT REPRESENTATIVE SDS Immunoglobulin G (IgG), S 632(L) 767 - 1590 mg/dL 04/10/2023 1:46 PM CLIENT REPRESENTATIVE [facility] Blood (Blood, Venous) 04/10/2023 7:54 AM CLIENT REPRESENTATIVE 04/10/2023 1:00 PM CLIENT REPRESENTATIVE Evan HedrickSAdalid LAB BLOOD ADD- ON [facility] [address] [place] [address] [facility] [address] [place] [address] * Phosphorus Inorganic (04/10/2023 7:54 AM CLIENT REPRESENTATIVE) Phosphorus (Inorganic), S 3.7 2.5 - 4.5 mg/dL 04/10/2023 8:55 AM CLIENT REPRESENTATIVE DTL Blood (Blood, Venous) 04/10/2023 7:54 AM CLIENT REPRESENTATIVE 04/10/2023 8:24 AM CLIENT REPRESENTATIVE Syed HedrickS. LAB BLOO D ADD-ON Performing Organization Address City/[facility]/ZIP Co de Phone Number [facility] [address] [place] [address] * Magnesium (04/10/2023 7:54 AM CLIENT REPRESENTATIVE) Magnesium, S 1.7 1.7 - 2.3 mg/dL 04/10/2023 8:55 AM CLIENT REPRESENTATIVE DTL Blood (Blood, Venous) 04/10/2023 7:54 AM CLIENT REPRESENTATIVE 04/10/2023 8:24 AM CLIENT REPRESENTATIVE Syed HedrickS. LAB BLOO D ADD-ON Performing Organization Address [facility] Co de Phone Number [facility] [address] [place] [address] * (ABNORMAL) Basic Metabolic Panel (04/10/2023 7:54 AM CLIENT REPRESENTATIVE) Potassium, S 4.1 3.6 - 5.2 mmol/L 04/10/2023 8:55 AM CLIENT REPRESENTATIVE DTL Sodium, S 141 135 - 145 mmol/L 04/10/2023 8:55 AM CLIENT REPRESENTATIVE DTL Chloride, S 103 98 - 107 mmol/L 04/10/2023 8:55 AM CLIENT REPRESENTATIVE DTL Bicarbonate, S 30(H) 22 - 29 mmol/L 04/10/2023 8:55 AM CLIENT REPRESENTATIVE DTL Anion Gap 8 7 - 15 04/10/2023 8:55 AM CLIENT REPRESENTATIVE DTL BUN (Blood Urea Nitrogen), S 16 6 - 21 mg/dL 04/10/2023 8:55 AM CLIENT REPRESENTATIVE DTL Creatinine 1.09(H) 0.59 - 1.04 mg/dL 04/10/2023 8:55 AM CLIENT REPRESENTATIVE DTL Estimated GFR (eGFR) 51(L) >=60 mL/min/BSA 04/10/2023 8:55 AM CLIENT REPRESENTATIVE DTL Comment: Estimated GFR calculated using the 2020 CKD_EPI creatinine equation. Calcium, Total, S 10.7(H) 8.8 - 10.2 mg/dL 04/10/2023 9:01 AM CLIENT REPRESENTATIVE DTL Glucose, S 91 70 - 140 mg/dL 04/10/2023 8:55 AM CLIENT REPRESENTATIVE DTL Blood (Blood, Venous) 04/10/2023 7:54 AM CLIENT REPRESENTATIVE 04/10/2023 8:24 AM CLIENT REPRESENTATIVE Syed Palmer LAB BLOO D ADD-ON [facility] [address] [place] [address], [facility] [address] [place] [address] * (ABNORMAL) CBC without Differential (04/10/2023 7:54 AM CLIENT REPRESENTATIVE) Hemoglobin 9.0(L) 11.6 - 15.0 g/dL 04/10/2023 8:49 AM CLIENT REPRESENTATIVE DTL Hematocrit 27.5(L) 35.5 - 44.9 % 04/10/2023 8:49 AM CLIENT REPRESENTATIVE DTL Erythrocytes 2.81(L) 3.92 - 5.13 x10(12)/L 04/10/2023 8:49 AM CLIENT REPRESENTATIVE DTL MCV 97.9 78.2 - 97.9 fL 04/10/2023 8:49 AM CLIENT REPRESENTATIVE DTL RBC Distrib Width 15.1 12.2 - 16.1 % 04/10/2023 8:49 AM CLIENT REPRESENTATIVE DTL Platelet Count 64(L) 157 - 371 x10(9)/L 04/10/2023 9:29 AM CLIENT REPRESENTATIVE DTL Leukocytes 3.8 3.4 - 9.6 x10(9)/L 04/10/2023 9:29 AM CLIENT REPRESENTATIVE DTL Blood (Blood, Venous) 04/10/2023 7:54 AM CLIENT REPRESENTATIVE 04/10/2023 8:10 AM CLIENT REPRESENTATIVE Syed HedrickS. LAB BLOO D ADD-ON Performing Organization Address City/[facility]/ZIP Co de Phone Number [facility] [address] [place] [address], [facility] [address] [place] [address] * (ABNORMAL) Uric Acid (04/10/2023 7:49 AM CLIENT REPRESENTATIVE) Uric Acid, S 6.4(H) 2.7 - 6.1 mg/dL 04/12/2023 10:28 AM CLIENT REPRESENTATIVE DTL Blood 04/10/2023 7:49 AM CLIENT REPRESENTATIVE 04/12/2023 9:58 AM CLIENT REPRESENTATIVE Syed HedrickSAdalid LAB BLOO D ADD-ON Performing Organization Address City/[facility] Co de Phone Number [facility] [address] [place] [address], [facility] [address] [place] [address] * (ABNORMAL) Hepatic Function Panel (04/10/2023 7:49 AM CLIENT REPRESENTATIVE) Bilirubin, Total, S 0.3 0.0 - 1.2 mg/dL 04/12/2023 10:28 AM CLIENT REPRESENTATIVE DTL Bilirubin, Direct, S <0.2 0.0 - 0.3 mg/dL 04/12/2023 10:28 AM CLIENT REPRESENTATIVE DTL Aspartate Aminotransferase (AST), S 23 8 - 43 U/L 04/12/2023 10:28 AM CLIENT REPRESENTATIVE DTL Alanine Aminotransferase (ALT), S 21 7 - 45 U/L 04/12/2023 10:28 AM CLIENT REPRESENTATIVE DTL Alkaline Phosphatase, S 150(H) 35 - 104 U/L 04/12/2023 10:28 AM CLIENT REPRESENTATIVE DTL Albumin, S 3.2(L) 3.5 - 5.0 g/dL 04/12/2023 10:28 AM CLIENT REPRESENTATIVE DTL Protein, Total, S 5.6(L) 6.3 - 7.9 g/dL 04/12/2023 10:28 AM CLIENT REPRESENTATIVE DTL Blood (Blood, Venous) 04/10/2023 7:49 AM CLIENT REPRESENTATIVE 04/12/2023 9:58 AM CLIENT REPRESENTATIVE Syed Palmer LAB BLOO D ADD-ON Performing Organization Address City/[facility]/ZIP Co de Phone Number [facility] [address] [place] [address], [facility] DTL [facility] [place] [address] [place] [address] * Hepatitis B Surface Antigen (04/10/2023 7:49 AM CLIENT REPRESENTATIVE) HBs Antigen, S Negative Negative 04/10/2023 11:01 PM CLIENT REPRESENTATIVE [facility] Blood 04/10/2023 7:49 AM CLIENT REPRESENTATIVE 04/10/2023 7:44 PM CLIENT REPRESENTATIVE Syed Palmer LAB MICR OBIOLOGY - BLOOD ORDERABLES Performing Organization Address [facility] Co de Phone Number [facility] [address] [place] [address] [facility] [address] [place] [address] * HBs Antibody, Serum (04/10/2023 7:49 AM CLIENT REPRESENTATIVE) HBs Antibody, S Negative 04/10/2023 11:19 PM CLIENT REPRESENTATIVE [facility] Comment: Patient is presumed to be not immune to infection with HBV. ----REFERENCE VALUE---- Unvaccinated: Negative Vaccinated: Positive HBs Antibody, Quantitative, S <5.0 mIU/mL 04/10/2023 11:19 PM CLIENT REPRESENTATIVE [facility] Comment: ----REFERENCE VALUE---- Unvaccinated: <5.0 Vaccinated: >=12.0 Blood 04/10/2023 7:49 AM CLIENT REPRESENTATIVE 04/10/2023 7:44 PM CLIENT REPRESENTATIVE Syed Palmer LAB MICR OBIOLOGY - BLOOD ORDERABLES Performing Organization Address City/[facility]/ZIP Co de Phone Number [facility] [address] [place] [address] [facility] [address] [place] [address] * HBc Total Ab, Serum (04/10/2023 7:49 AM CLIENT REPRESENTATIVE) HBc Total Ab, S Negative Negative 04/10/2023 11:18 PM CLIENT REPRESENTATIVE [facility] Blood (Blood, Peripheral Draw) 04/10/2023 7:49 AM CLIENT REPRESENTATIVE 04/10/2023 7:44 PM CLIENT REPRESENTATIVE Syed Palmer LAB [facility] OBIOLOGY - BLOOD ORDERABLES Performing Organization Address [facility] Co de Phone Number [facility] [address] [place] [address] [facility] [address] [place] [address] * US Kidneys Bilateral with Bladder (04/09/2023 5:46 PM CLIENT REPRESENTATIVE) Anatomical Region Laterality Modality Abdomen, Renal, Ultrasound R ST LOS, Ultrasound ARZ LOS, Ultrasound FLA LOS Bilateral Ultrasound Impressions 04/10/2023 7:27 AM CLIENT REPRESENTATIVE Stable mild left pelvocaliectasis. No obstructive lesions seen within the kidney and bladder ultrasound. Narrative 04/10/2023 7:27 AM CLIENT REPRESENTATIVE EXAM: US KIDNEYS BILATERAL WITH BLADDER COMPARISON: [...] Edson Nance M.D. IMG US PROCEDURES * [place] FNA BX WO IMG 1ST LESION (04/09/2023 10:03 AM CLIENT REPRESENTATIVE) Narrative Brandon Awad R.N. - 04/09/2023 10:03 AM CLIENT REPRESENTATIVE Brandon Awad R.N. ? 04/09/2023 10:04 AM [...] Venegas M.D. PROCEDURE/MINOR SURG ICAL ORDERABLES * Phosphorus Inorganic (04/09/2023 9:35 AM CLIENT REPRESENTATIVE) Phosphorus (Inorganic), S 3.7 2.5 - 4.5 mg/dL 04/09/2023 11:30 AM CLIENT REPRESENTATIVE DTL Blood (Blood, Venous) 04/09/2023 9:35 AM CLIENT REPRESENTATIVE 04/09/2023 10:17 AM CLIENT REPRESENTATIVE Syed HedrickS. LAB BLOO D ADD-ON Performing Organization Address City/[facility]/ZIP Co de Phone Number [facility] [address] [place] [address], [facility] [address] [place] [address] * Magnesium (04/09/2023 9:35 AM CLIENT REPRESENTATIVE) Magnesium, S 1.8 1.7 - 2.3 mg/dL 04/09/2023 12:40 PM CLIENT REPRESENTATIVE DTL Blood (Blood, Venous) 04/09/2023 9:35 AM CLIENT REPRESENTATIVE 04/09/2023 10:17 AM CLIENT REPRESENTATIVE Syed HedrickS. LAB BLOO D ADD-ON [facility] [address] [place] [address], [facility] [address] [place] [address] * (ABNORMAL) Basic Metabolic Panel (04/09/2023 9:35 AM CLIENT REPRESENTATIVE) Potassium, S 3.8 3.6 - 5.2 mmol/L 04/09/2023 11:30 AM CLIENT REPRESENTATIVE DTL Sodium, S 141 135 - 145 mmol/L 04/09/2023 11:30 AM CLIENT REPRESENTATIVE DTL Chloride, S 103 98 - 107 mmol/L 04/09/2023 11:30 AM CLIENT REPRESENTATIVE DTL Bicarbonate, S 29 22 - 29 mmol/L 04/09/2023 11:30 AM CLIENT REPRESENTATIVE DTL Anion Gap 9 7 - 15 04/09/2023 11:30 AM CLIENT REPRESENTATIVE DTL BUN (Blood Urea Nitrogen), S 18 6 - 21 mg/dL 04/09/2023 11:30 AM CLIENT REPRESENTATIVE DTL Creatinine 1.02 0.59 - 1.04 mg/dL 04/09/2023 11:30 AM CLIENT REPRESENTATIVE DTL Estimated GFR (eGFR) 55(L) >=60 mL/min/BSA 04/09/2023 11:30 AM CLIENT REPRESENTATIVE DTL Comment: Estimated GFR calculated using the 2020 CKD_EPI creatinine equation. Calcium, Total, S 10.3(H) 8.8 - 10.2 mg/dL 04/09/2023 11:30 AM CLIENT REPRESENTATIVE DTL Glucose, S 129 70 - 140 mg/dL 04/09/2023 11:30 AM CLIENT REPRESENTATIVE DTL Blood (Blood, Venous) 04/09/2023 9:35 AM CLIENT REPRESENTATIVE 04/09/2023 10:17 AM CLIENT REPRESENTATIVE Syed Palmer LAB BLOO D ADD-ON [facility] [address] [place] [address], [facility] DTL [facility] [address] [place] [address] * EMG (04/09/2023 6:38 AM CLIENT REPRESENTATIVE) 04/09/2023 7:00 AM CLIENT REPRESENTATIVE Narrative [facility] EMG - 04/09/2023 9:13 AM CLIENT REPRESENTATIVE Table formatting from the original result was not included. 12-Feb-2024 ? Electromyography ? Final Report Study Number: 1 EMG Support Associate: Quinn Hewitt 127 or [phone] Referred by: WARD VENEGAS ([id number])) Referred for: weakness Referral Code: ?200 ??301 [...] and clinical correlation advised. Brant Hewitt (127 xw [phone])/ACV NERVE CONDUCTIONS ??Record Rep ?? Normal ??Normal [...] Quinn Hewitt M.D. at 04/09/2023 9:11:58 AM CLIENT REPRESENTATIVE Procedure Note Quinn Hewitt M.D. - 04/09/2023 09-Apr-2023 Electromyography Final Report Study Number: 1 EMG Support Associate: Quinn Hewitt. [facility] or [phone] Referred by: WARD VENEGAS ([id number])) Referred for: weakness Referral Code: 200 301 [...] and clinicalcorrelation advised. Brant Hewitt (127 or [phone])/ACV NERVE CONDUCTIONS Record Rep Normal Normal Distal [...] ChristopherJ. Hewitt M.D. at 04/09/2023 9:11:58 AM CLIENT REPRESENTATIVE Ward Venegas M.D. NEUROLOGY ORDERABLES EMG * Subcutaneous Fat Aspirate (04/09/2023 6:16 AM CLIENT REPRESENTATIVE) 04/10/2023 1:54 PM CLIENT REPRESENTATIVE [facility] Report electronically signed by Monisha Ospina M.D. I verify that I have examined all relevant slides/material s for the specimen(s) and rendered or confirmed the diagnosis. 04/10/2023 1:54 PM CLIENT REPRESENTATIVE [facility] Gross Description The subcutaneous fat aspirate used for diagnostic purposes consists of 0.5 mL fat. 04/10/2023 1:54 PM CLIENT REPRESENTATIVE DHPM Interpretation FINAL DIAGNOSIS Congo red stain, abdominal subcutaneous fat aspirate specimen: Amyloid is absent. 04/10/2023 1:54 PM CLIENT REPRESENTATIVE [facility] 04/09/2023 6:16 AM CLIENT REPRESENTATIVE 04/09/2023 6:16 AM CLIENT REPRESENTATIVE Ward Venegas M.D. LAB PATHOLOGY/CYTOLO GY ORDERABLES [facility] [address] [place] [address] * Clostridioides (Clostridium) Difficile Toxin, Molecular Detection, PCR, Feces (04/08/2023 12:21 PM CLIENT REPRESENTATIVE) Pathologist [facility] C. difficile Toxin, F Negative Negative 04/08/2023 2:53 PM CLIENT REPRESENTATIVE DTL Stool (Stool) 04/08/2023 12: 21 PM CLIENT REPRESENTATIVE 04/08/2023 1:07 PM CLIENT REPRESENTATIVE Edson Nance M.D. LAB MICROBIOLOGY - G ENERAL ORDERABLES [facility] [address] [place] [address] * Phosphorus Inorganic (04/08/2023 6:23 AM CLIENT REPRESENTATIVE) Pathologist [facility] Phosphorus (Inorganic), S 2.7 2.5 - 4.5 mg/dL 04/08/2023 7:25 AM CLIENT REPRESENTATIVE DTL Blood (Blood, Venous) 04/08/2023 6:23 AM CLIENT REPRESENTATIVE 04/08/2023 7:07 AM CLIENT REPRESENTATIVE Edson Nance M.D. LAB BLOOD ADD-ON Performing Organization Address City/[facility]/[place] [address] * Magnesium (04/08/2023 6:23 AM CLIENT REPRESENTATIVE) Magnesium, S 1.7 1.7 - 2.3 mg/dL 04/08/2023 7:25 AM CLIENT REPRESENTATIVE DTL Blood (Blood, Venous) 04/08/2023 6:23 AM CLIENT REPRESENTATIVE 04/08/2023 7:07 AM CLIENT REPRESENTATIVE Edson Nance M.D. LAB BLOOD ADD-ON Performing Organization Address City/[facility] Co de Phone Number [facility] [address] [place] [address], [place] [address] * (ABNORMAL) Basic Metabolic Panel (04/08/2023 6:23 AM CLIENT REPRESENTATIVE) Potassium, S 3.6 3.6 - 5.2 mmol/L 04/08/2023 7:25 AM CLIENT REPRESENTATIVE DTL Sodium, S 140 135 - 145 mmol/L 04/08/2023 7:25 AM CLIENT REPRESENTATIVE DTL Chloride, S 103 98 - 107 mmol/L 04/08/2023 7:25 AM CLIENT REPRESENTATIVE DTL Bicarbonate, S 30(H) 22 - 29 mmol/L 04/08/2023 7:25 AM CLIENT REPRESENTATIVE DTL Anion Gap 7 7 - 15 04/08/2023 7:25 AM CLIENT REPRESENTATIVE DTL BUN (Blood Urea Nitrogen), S 16 6 - 21 mg/dL 04/08/2023 7:25 AM CLIENT REPRESENTATIVE DTL Creatinine 1.14(H) 0.59 - 1.04 mg/dL 04/08/2023 7:25 AM CLIENT REPRESENTATIVE DTL Estimated GFR (eGFR) 48(L) >=60 mL/min/BSA 04/08/2023 7:25 AM CLIENT REPRESENTATIVE DTL Comment: Estimated GFR calculated using the 2020 CKD_EPI creatinine equation. Calcium, Total, S 9.9 8.8 - 10.2 mg/dL 04/08/2023 7:25 AM CLIENT REPRESENTATIVE DTL Glucose, S 136 70 - 140 mg/dL 04/08/2023 7:25 AM CLIENT REPRESENTATIVE DTL Blood (Blood, Venous) 04/08/2023 6:23 AM CLIENT REPRESENTATIVE 04/08/2023 7:07 AM CLIENT REPRESENTATIVE Edson Nance M.D. LAB BLOOD ADD-ON [facility] [address] [place] [address], [facility] [address] [place] [address] * Vascular Endothelial Growth Factor (04/08/2023 6:23 AM CLIENT REPRESENTATIVE) VEGF, P 22.6 <=96.2 pg/mL 04/10/2023 1:59 PM CLIENT REPRESENTATIVE [facility] Comment: ----ADDITIONAL INFORMATION---- This test was developed and its performance characteristics determined by [facility] in a manner consistent with CLIA requirements. This test has not been cleared or approved by the U.S. Food and Drug Administration. Blood (Blood, Venous) 04/08/2023 6:23 AM CLIENT REPRESENTATIVE 04/09/2023 7:22 AM CLIENT REPRESENTATIVE Syed Palmer LAB BLOO D NON ADD-ON [facility] [address] [place] [address] [facility] [address] [place] [address] [place] [address] * 1,25-Dihydroxyvitamin D (04/08/2023 6:23 AM CLIENT REPRESENTATIVE) 1, 25 DIHYDROXYVITAMIN D, S 66 18 - 78 pg/mL 04/10/2023 2:05 PM CLIENT REPRESENTATIVE [facility] Comment: ----ADDITIONAL INFORMATION---- This test was developed and its performance characteristics determined by [facility] in a manner consistent with CLIA requirements. This test has not been cleared or approved by the U.S. Food and Drug Administration. Blood (Blood, Venous) 04/08/2023 6:23 AM CLIENT REPRESENTATIVE 04/09/2023 7:43 AM CLIENT REPRESENTATIVE Syed Palmer LAB BLOO D ADD-ON Performing Organization Address City/[facility]/ZIP Co de Phone Number [facility] [address] [place] [address] [facility] [address] [place] [address] [place] [address] * (ABNORMAL) Phosphorus Inorganic (04/07/2023 10:06 PM CLIENT REPRESENTATIVE) Phosphorus (Inorganic), S 2.4(L) 2.5 - 4.5 mg/dL 04/07/2023 10:50 PM CLIENT REPRESENTATIVE DTL Blood (Blood, Venous) 04/07/2023 10:06 PM CLIENT REPRESENTATIVE 04/07/2023 10:36 PM CLIENT REPRESENTATIVE Edson Nance M.D. LAB BLOOD ADD-ON Performing Organization Address [facility] Co de Phone Number [facility] [address] [place] [address], [facility] DTL [facility] [address] [place] [address] * Magnesium (04/07/2023 10:06 PM CLIENT REPRESENTATIVE) Magnesium, S 1.7 1.7 - 2.3 mg/dL 04/07/2023 10:50 PM CLIENT REPRESENTATIVE DTL Blood (Blood, Venous) 04/07/2023 10:06 PM CLIENT REPRESENTATIVE 04/07/2023 10:36 PM CLIENT REPRESENTATIVE Edson Nance M.D. LAB BLOOD ADD-ON Performing Organization Address City/[facility]/ZIP Co de Phone Number [facility] [address] [place] [address], [facility] [address] [place] [address] * (ABNORMAL) Basic Metabolic Panel (04/07/2023 10:06 PM CLIENT REPRESENTATIVE) [facility] Potassium, S 4.1 3.6 - 5.2 mmol/L 04/07/2023 10:50 PM CLIENT REPRESENTATIVE DTL Sodium, S 139 135 - 145 mmol/L 04/07/2023 10:50 PM CLIENT REPRESENTATIVE DTL Chloride, S 102 98 - 107 mmol/L 04/07/2023 10:50 PM CLIENT REPRESENTATIVE DTL Bicarbonate, S 31(H) 22 - 29 mmol/L 04/07/2023 10:50 PM CLIENT REPRESENTATIVE DTL Anion Gap 6(L) 7 - 15 04/07/2023 10:50 PM CLIENT REPRESENTATIVE DTL BUN (Blood Urea Nitrogen), S 16 6 - 21 mg/dL 04/07/2023 10:50 PM CLIENT REPRESENTATIVE DTL Creatinine 1.23(H) 0.59 - 1.04 mg/dL 04/07/2023 10:50 PM CLIENT REPRESENTATIVE DTL Estimated GFR (eGFR) 44(L) >=60 mL/min/BSA 04/07/2023 10:50 PM CLIENT REPRESENTATIVE DTL Comment: Estimated GFR calculated using the 2020 CKD_EPI creatinine equation. Calcium, Total, S 9.9 8.8 - 10.2 mg/dL 04/07/2023 10:50 PM CLIENT REPRESENTATIVE DTL Glucose, S 146(H) 70 - 140 mg/dL 04/07/2023 10:50 PM CLIENT REPRESENTATIVE DTL Blood (Blood, Venous) 04/07/2023 10:06 PM CLIENT REPRESENTATIVE 04/07/2023 10:36 PM CLIENT REPRESENTATIVE Edson Nance M.D. LAB BLOOD ADD-ON [facility] [address] [place] [address], [facility] [address] [place] [address] * (ABNORMAL) Phosphorus Inorganic (04/07/2023 1:49 PM CLIENT REPRESENTATIVE) [facility] Phosphorus (Inorganic), S 2.3(L) 2.5 - 4.5 mg/dL 04/07/2023 2:49 PM CLIENT REPRESENTATIVE DTL Blood (Blood, Venous) 04/07/2023 1:49 PM CLIENT REPRESENTATIVE 04/07/2023 2:33 PM CLIENT REPRESENTATIVE Ward Venegas M.D. LAB BLOOD ADD-ON Performing Organization Address City/[facility] Co de Phone Number [facility] [address] [place] [address], [facility] [address] [place] [address] * Magnesium (04/07/2023 1:49 PM CLIENT REPRESENTATIVE) [facility] Magnesium, S 1.8 1.7 - 2.3 mg/dL 04/07/2023 2:49 PM CLIENT REPRESENTATIVE DTL Blood (Blood, Venous) 04/07/2023 1:49 PM CLIENT REPRESENTATIVE 04/07/2023 2:33 PM CLIENT REPRESENTATIVE Ward Venegas M.D. LAB BLOOD ADD-ON Performing Organization Address [facility] Co de Phone Number [facility] [address] [place] [address], [facility] [address] [place] [address] * (ABNORMAL) Basic Metabolic Panel (04/07/2023 1:49 PM CLIENT REPRESENTATIVE) [facility] Potassium, S 3.9 3.6 - 5.2 mmol/L 04/07/2023 2:49 PM CLIENT REPRESENTATIVE DTL Sodium, S 141 135 - 145 mmol/L 04/07/2023 2:49 PM CLIENT REPRESENTATIVE DTL Chloride, S 103 98 - 107 mmol/L 04/07/2023 2:49 PM CLIENT REPRESENTATIVE DTL Bicarbonate, S 32(H) 22 - 29 mmol/L 04/07/2023 2:49 PM CLIENT REPRESENTATIVE DTL Anion Gap 6(L) 7 - 15 04/07/2023 2:49 PM CLIENT REPRESENTATIVE DTL BUN (Blood Urea Nitrogen), S 15 6 - 21 mg/dL 04/07/2023 2:49 PM CLIENT REPRESENTATIVE DTL Creatinine 1.22(H) 0.59 - 1.04 mg/dL 04/07/2023 3:16 PM CLIENT REPRESENTATIVE DTL Estimated GFR (eGFR) 45(L) >=60 mL/min/BSA 04/07/2023 3:16 PM CLIENT REPRESENTATIVE DTL Comment: Estimated GFR calculated using the 2020 CKD_EPI creatinine equation. Calcium, Total, S 9.9 8.8 - 10.2 mg/dL 04/07/2023 3:16 PM CLIENT REPRESENTATIVE DTL Glucose, S 140 70 - 140 mg/dL 04/07/2023 2:49 PM CLIENT REPRESENTATIVE DTL Blood (Blood, Venous) 04/07/2023 1:49 PM CLIENT REPRESENTATIVE 04/07/2023 2:33 PM CLIENT REPRESENTATIVE Ward Venegas M.D. LAB BLOOD ADD-ON Performing Organization Address City/[facility]/ZIP Co de Phone Number [facility] [address] [place] [address] * Phosphorus Inorganic (04/07/2023 6:51 AM CLIENT REPRESENTATIVE) Phosphorus (Inorganic), S 2.8 2.5 - 4.5 mg/dL 04/07/2023 8:46 AM CLIENT REPRESENTATIVE DTL Blood (Blood, Venous) 04/07/2023 6:51 AM CLIENT REPRESENTATIVE 04/07/2023 7:59 AM CLIENT REPRESENTATIVE Ward Venegas M.D. LAB BLOOD ADD-ON [facility] [address] [place] [address], [place] [address] * Magnesium (04/07/2023 6:51 AM CLIENT REPRESENTATIVE) Magnesium, S 1.8 1.7 - 2.3 mg/dL 04/07/2023 8:46 AM CLIENT REPRESENTATIVE DTL Blood (Blood, Venous) 04/07/2023 6:51 AM CLIENT REPRESENTATIVE 04/07/2023 7:59 AM CLIENT REPRESENTATIVE Ward Venegas M.D. LAB BLOOD ADD-ON [facility] [address] [place] [address], [facility] DTL [facility] [address] [place] [address] * (ABNORMAL) Basic Metabolic Panel (04/07/2023 6:51 AM CLIENT REPRESENTATIVE) Pathologist [facility] Potassium, S 3.1(L) 3.6 - 5.2 mmol/L 04/07/2023 8:46 AM CLIENT REPRESENTATIVE DTL Sodium, S 141 135 - 145 mmol/L 04/07/2023 8:46 AM CLIENT REPRESENTATIVE DTL Chloride, S 104 98 - 107 mmol/L 04/07/2023 8:46 AM CLIENT REPRESENTATIVE DTL Bicarbonate, S 30(H) 22 - 29 mmol/L 04/07/2023 8:46 AM CLIENT REPRESENTATIVE DTL Anion Gap 7 7 - 15 04/07/2023 8:46 AM CLIENT REPRESENTATIVE DTL BUN (Blood Urea Nitrogen), S 14 6 - 21 mg/dL 04/07/2023 8:46 AM CLIENT REPRESENTATIVE DTL Creatinine 1.21(H) 0.59 - 1.04 mg/dL 04/07/2023 8:46 AM CLIENT REPRESENTATIVE DTL Estimated GFR (eGFR) 45(L) >=60 mL/min/BSA 04/07/2023 8:46 AM CLIENT REPRESENTATIVE DTL Comment: Estimated GFR calculated using the 2020 CKD_EPI creatinine equation. Calcium, Total, S 9.9 8.8 - 10.2 mg/dL 04/07/2023 8:46 AM CLIENT REPRESENTATIVE DTL Glucose, S 143(H) 70 - 140 mg/dL 04/07/2023 8:46 AM CLIENT REPRESENTATIVE DTL Blood (Blood, Venous) 04/07/2023 6:51 AM CLIENT REPRESENTATIVE 04/07/2023 7:59 AM CLIENT REPRESENTATIVE Ward Venegas M.D. LAB BLOOD ADD-ON [facility] [address] [place] [address], [facility] DTL [facility] [address] [place] [address] * (ABNORMAL) CBC with Differential, Blood (04/07/2023 6:51 AM CLIENT REPRESENTATIVE) Hemoglobin 9.1(L) 11.6 - 15.0 g/dL 04/07/2023 7:43 AM CLIENT REPRESENTATIVE DTL Hematocrit 27.4(L) 35.5 - 44.9 % 04/07/2023 7:43 AM CLIENT REPRESENTATIVE DTL Erythrocytes 2.85(L) 3.92 - 5.13 x10(12)/L 04/07/2023 7:43 AM CLIENT REPRESENTATIVE DTL MCV 96.1 78.2 - 97.9 fL 04/07/2023 7:43 AM CLIENT REPRESENTATIVE DTL RBC Distrib Width 14.6 12.2 - 16.1 % 04/07/2023 7:43 AM CLIENT REPRESENTATIVE DTL Platelet Count 55(L) 157 - 371 x10(9)/L 04/07/2023 8:08 AM CLIENT REPRESENTATIVE DTL Leukocytes 2.9(L) 3.4 - 9.6 x10(9)/L 04/07/2023 8:08 AM CLIENT REPRESENTATIVE DTL Neutrophils 1.47(L) 1.56 - 6.45 x10(9)/L 04/07/2023 7:43 AM CLIENT REPRESENTATIVE DHPM Lymphocytes 1.09 0.95 - 3.07 x10(9)/L 04/07/2023 7:43 AM CLIENT REPRESENTATIVE DTL Monocytes 0.29 0.26 - 0.81 x10(9)/L 04/07/2023 7:43 AM CLIENT REPRESENTATIVE DTL Eosinophils 0.04 0.03 - 0.48 x10(9)/L 04/07/2023 7:43 AM CLIENT REPRESENTATIVE DTL Basophils <0.03 0.01 - 0.08 x10(9)/L 04/07/2023 7:43 AM CLIENT REPRESENTATIVE DTL Blood (Blood, Venous) 04/07/2023 6:51 AM CLIENT REPRESENTATIVE 04/07/2023 7:30 AM CLIENT REPRESENTATIVE Milli Faria M.D. LAB BLOOD ADD-ON Performing Organization Address City/[facility]/ZIP Co de Phone Number [facility] [address] [place] [address], [facility] [address] [place], [place] [id number] [place] [address] [address] [place] [address] * Phosphorus Inorganic (04/06/2023 10:13 PM CLIENT REPRESENTATIVE) Phosphorus (Inorganic), S 3.4 2.5 - 4.5 mg/dL 04/06/2023 11:08 PM CLIENT REPRESENTATIVE DTL Blood (Blood, Venous) 04/06/2023 10:13 PM CLIENT REPRESENTATIVE 04/06/2023 10:52 PM CLIENT REPRESENTATIVE Ward Venegas M.D. LAB BLOOD ADD-ON Performing Organization Address City/[facility]/ZIP Co de Phone Number [facility] [address] [place] [address], [facility] [address] [place] [address] * Magnesium (04/06/2023 10:13 PM CLIENT REPRESENTATIVE) Magnesium, S 1.9 1.7 - 2.3 mg/dL 04/06/2023 11:08 PM CLIENT REPRESENTATIVE DTL Blood (Blood, Venous) 04/06/2023 10:13 PM CLIENT REPRESENTATIVE 04/06/2023 10:52 PM CLIENT REPRESENTATIVE Ward Venegas M.D. LAB BLOOD ADD-ON [facility] [address] [place] [address], [facility] [address] [place] [address] * (ABNORMAL) Basic Metabolic Panel (04/06/2023 10:13 PM CLIENT REPRESENTATIVE) Potassium, S 3.1(L) 3.6 - 5.2 mmol/L 04/06/2023 11:08 PM CLIENT REPRESENTATIVE DTL Sodium, S 141 135 - 145 mmol/L 04/06/2023 11:08 PM CLIENT REPRESENTATIVE DTL Chloride, S 103 98 - 107 mmol/L 04/06/2023 11:08 PM CLIENT REPRESENTATIVE DTL Bicarbonate, S 29 22 - 29 mmol/L 04/06/2023 11:08 PM CLIENT REPRESENTATIVE DTL Anion Gap 9 7 - 15 04/06/2023 11:08 PM CLIENT REPRESENTATIVE DTL BUN (Blood Urea Nitrogen), S 14 6 - 21 mg/dL 04/06/2023 11:08 PM CLIENT REPRESENTATIVE DTL Creatinine 1.22(H) 0.59 - 1.04 mg/dL 04/06/2023 11:08 PM CLIENT REPRESENTATIVE DTL Estimated GFR (eGFR) 45(L) >=60 mL/min/BSA 04/06/2023 11:08 PM CLIENT REPRESENTATIVE DTL Comment: Estimated GFR calculated using the 2020 CKD_EPI creatinine equation. Calcium, Total, S 9.9 8.8 - 10.2 mg/dL 04/06/2023 11:08 PM CLIENT REPRESENTATIVE DTL Glucose, S 105 70 - 140 mg/dL 04/06/2023 11:08 PM CLIENT REPRESENTATIVE DTL Blood (Blood, Venous) 04/06/2023 10:13 PM CLIENT REPRESENTATIVE 04/06/2023 10:52 PM CLIENT REPRESENTATIVE Ward Venegas M.D. LAB BLOOD ADD-ON [facility] [address] [place] [address], [facility] [address] [place] [address] * DX Abdomen Portable Anterior Posterior 1 View (04/06/2023 3:54 PM CLIENT REPRESENTATIVE) Anatomical Region Laterality Modality Abdomen, Abdominal RST LOS, Abdominal ARZ LOS, Abdominal FLA LOS N/A Digital Radiography Impressions 04/06/2023 4:23 PM CLIENT REPRESENTATIVE Feeding tube tip projects over the mid stomach. Narrative 04/06/2023 4:23 PM CLIENT REPRESENTATIVE EXAM: ??DX ABDOMEN PORTABLE ANTERIOR POSTERIOR 1 VIEW Procedure Note Scar Young M.D. - 04/06/2023 EXAM: DX ABDOMEN PORTABLE ANTERIOR POSTERIOR 1 VIEW IMPRESSION: Feeding tube tip projects over the mid stomach. Darrell Zabala M.D. IMG DIAGNOSTIC IMAG ING PROCEDURES * Zinc (04/06/2023 3:34 PM CLIENT REPRESENTATIVE) [facility] Zinc, S 64 60 - 106 mcg/dL 04/09/2023 5:59 PM CLIENT REPRESENTATIVE [facility] Comment: ----ADDITIONAL INFORMATION---- This test was developed and its performance characteristics determined by [facility] in a manner consistent with CLIA requirements. This test has not been cleared or approved by the U.S. Food and Drug Administration. Blood (Blood, Venous) 04/06/2023 3:34 PM CLIENT REPRESENTATIVE 04/06/2023 9:42 PM CLIENT REPRESENTATIVE Ward Venegas M.D. LAB BLOOD NON ADD-ON Performing Organization Address [facility]/ZIP Co de Phone Number [facility] [address] [place], [place] [id number] [place] [address] [address] [facility] [place] [address] * Copper (04/06/2023 3:34 PM CLIENT REPRESENTATIVE) [facility] Copper, S 97 77 - 206 mcg/dL 04/09/2023 5:59 PM CLIENT REPRESENTATIVE [facility] Comment: ----ADDITIONAL INFORMATION---- This test was developed and its performance characteristics determined by [facility] in a manner consistent with CLIA requirements. This test has not been cleared or approved by the U.S. Food and Drug Administration. Blood (Blood, Venous) 04/06/2023 3:34 PM CLIENT REPRESENTATIVE 04/06/2023 9:42 PM CLIENT REPRESENTATIVE Ward Venegas M.D. LAB BLOOD NON ADD-ON Performing Organization Address City/[facility]/ZIP Co de Phone Number [facility] [address] [place] [address] [facility] [address] [place] [address] [place] [address] * Magnesium (04/06/2023 3:34 PM CLIENT REPRESENTATIVE) [facility] Magnesium, S 2.0 1.7 - 2.3 mg/dL 04/06/2023 4:37 PM CLIENT REPRESENTATIVE DTL Blood (Blood, Venous) 04/06/2023 3:34 PM CLIENT REPRESENTATIVE 04/06/2023 4:26 PM CLIENT REPRESENTATIVE Ward Venegas M.D. LAB BLOOD ADD-ON [facility] [address] [place] [address], [facility] [address] [place] [address] * (ABNORMAL) CBC with Differential, Blood (04/06/2023 3:34 PM CLIENT REPRESENTATIVE) [facility] Hemoglobin 9.2(L) 11.6 - 15.0 g/dL 04/06/2023 4:21 PM CLIENT REPRESENTATIVE DTL Hematocrit 27.2(L) 35.5 - 44.9 % 04/06/2023 4:21 PM CLIENT REPRESENTATIVE DTL Erythrocytes 2.85(L) 3.92 - 5.13 x10(12)/L 04/06/2023 4:21 PM CLIENT REPRESENTATIVE DTL MCV 95.4 78.2 - 97.9 fL 04/06/2023 4:21 PM CLIENT REPRESENTATIVE DTL RBC Distrib Width 14.5 12.2 - 16.1 % 04/06/2023 4:21 PM CLIENT REPRESENTATIVE DTL Platelet Count 56(L) 157 - 371 x10(9)/L 04/06/2023 4:44 PM CLIENT REPRESENTATIVE DTL Leukocytes 3.0(L) 3.4 - 9.6 x10(9)/L 04/06/2023 4:44 PM CLIENT REPRESENTATIVE DTL Neutrophils 1.52(L) 1.56 - 6.45 x10(9)/L 04/06/2023 4:21 PM CLIENT REPRESENTATIVE [facility] Lymphocytes 1.10 0.95 - 3.07 x10(9)/L 04/06/2023 4:21 PM CLIENT REPRESENTATIVE DTL Monocytes 0.26 0.26 - 0.81 x10(9)/L 04/06/2023 4:21 PM CLIENT REPRESENTATIVE DTL Eosinophils 0.04 0.03 - 0.48 x10(9)/L 04/06/2023 4:21 PM CLIENT REPRESENTATIVE DTL Basophils 0.03 0.01 - 0.08 x10(9)/L 04/06/2023 4:21 PM CLIENT REPRESENTATIVE DTL Blood (Blood, Venous) 04/06/2023 3:34 PM CLIENT REPRESENTATIVE 04/06/2023 4:12 PM CLIENT REPRESENTATIVE Milli Faria M.D. LAB BLOOD ADD-ON [facility] [address] [place] [address], [place] DTL [facility] [address] [place] [address] [facility] [address] [place] [address] * (ABNORMAL) Basic Metabolic Panel (04/06/2023 3:07 PM CLIENT REPRESENTATIVE) Potassium, S 3.2(L) 3.6 - 5.2 mmol/L 04/06/2023 6:11 PM CLIENT REPRESENTATIVE DTL Sodium, S 143 135 - 145 mmol/L 04/06/2023 6:11 PM CLIENT REPRESENTATIVE DTL Chloride, S 103 98 - 107 mmol/L 04/06/2023 6:11 PM CLIENT REPRESENTATIVE DTL Bicarbonate, S 25 22 - 29 mmol/L 04/06/2023 6:11 PM CLIENT REPRESENTATIVE DTL Anion Gap 15 7 - 15 04/06/2023 6:11 PM CLIENT REPRESENTATIVE DTL BUN (Blood Urea Nitrogen), S 12 6 - 21 mg/dL 04/06/2023 6:11 PM CLIENT REPRESENTATIVE DTL Creatinine 1.25(H) 0.59 - 1.04 mg/dL 04/06/2023 6:11 PM CLIENT REPRESENTATIVE DTL Estimated GFR (eGFR) 43(L) >=60 mL/min/BSA 04/06/2023 6:11 PM CLIENT REPRESENTATIVE DTL Comment: Estimated GFR calculated using the 2020 CKD_EPI creatinine equation. Calcium, Total, S 9.9 8.8 - 10.2 mg/dL 04/06/2023 6:11 PM CLIENT REPRESENTATIVE DTL Glucose, S 70 70 - 140 mg/dL 04/06/2023 6:11 PM CLIENT REPRESENTATIVE DTL Blood (Blood, Venous) 04/06/2023 3:07 PM CLIENT REPRESENTATIVE 04/06/2023 5:32 PM CLIENT REPRESENTATIVE Alberto Robledo M.D. LAB BLOOD ADD-ON [facility] [address] [place] [address], [place] [facility] [address] [place] [address] * MR Thoracic Spine without and with IV Contrast (04/06/2023 2:37 PM CLIENT REPRESENTATIVE) Anatomical Region Laterality Modality Thoracic Spine, Neuroradiolo gy RST LOS, Neuroradiology ARZ LOS, Neuroradiology FLA LOS N/A Magnetic Resonance Impressions 04/06/2023 4:20 PM CLIENT REPRESENTATIVE 1. ??No acute findings in the thoracic spine, including fracture, cord signal abnormality, marrow replacing lesion, or suspicious enhancement. 2. ??Moderate thoracic spondylosis without significant spinal canal or neural foraminal narrowing. 3. ??Redemonstrated moderate-advanced degenerative changes at L1-L2, and moderate degenerative changes at T12-L1 as described. Narrative 04/06/2023 4:20 PM CLIENT REPRESENTATIVE EXAM: MR THORACIC SPINE WITHOUT AND WITH [...] narrowing. Splenic enlargement is noted on the [employer] localizer images (series 2, images 7- 8). [...] narrowing. Splenic enlargement is noted on the [employer] localizer images (series 2,images 7- 8). IMPRESSION: 1. No acute findings in the thoracic spine, including fracture, cordsignal abnormality, marrow replacing lesion, or suspicious enhancement. 2. Moderate thoracic spondylosis without significant spinal canal orneural foraminal narrowing. 3. Redemonstrated moderate-advanced degenerative changes at L1-L2, andmoderate degenerative changes at T12-L1 as described. Ward Venegas M.D. [facility] MRI PROCEDURES * PET CT Skull to Thigh FDG (04/06/2023 1:14 PM CLIENT REPRESENTATIVE) Anatomical Region Laterality Modality Body, Nuclear Medicine PET R ST LOS, PET ARZ LOS, Nuclear Medicine PET FLA LOS, Nuclear Medicine N/A Positron Emission Tomography (PET), Positron Emission Tomography (PET) Impressions 04/06/2023 2:08 PM CLIENT REPRESENTATIVE 1. ??Moderately FDG avid splenomegaly and diffuse bone marrow activity suspicious for a lymphoproliferative process. No FDG avid lymphadenopathy or other PET/CT evidence of malignancy. 2. ??Moderate left pelvocaliectasis with retention of excreted FDG activity in the collecting system to the level of the left UPJ, potentially secondary to an at least partial obstruction as a result of splenomegaly with associated mass effect and anterior displacement of the kidney. Could consider nuclear medicine MAG3 renal scan with Lasix in further workup if clinically indicated. 3. ??Small bilateral pleural effusions. Narrative 04/06/2023 2:08 PM CLIENT REPRESENTATIVE EXAM: ??PET CT SKULL TO THIGH FDG Serum glucose at time of F-18 FDG injection was 72 mg/dL. Patient followed standard dietary/fasting requirements for this exam. RADIOPHARMACEUTICAL/MEDS: Route: intravenous fludeoxyglucose F 18 injection INTERMEDIATE (FDG F-18),15.28 millicurie TECHNIQUE: ??F-18 FDG PET/CT scan was performed from the vertex through the upper thighs with low dose, non-contrast, free-breathing CT images for attenuation correction and anatomic localization (AC/AL), with imaging beginning at approximately 60 minutes after radiotracer injection. ? COMPARISON: ??PET/CT brain 01/20/2022. 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 Initial staging. Initial treatment strategy. The patient reports no recent vaccinations. FINDINGS: ?? Splenomegaly with diffuse moderate abnormal FDG uptake, measuring approximately 19.0 cm with SUVmax 5.9. Diffuse mild-moderate abnormal bone marrow activity without focal suspicious osseous uptake above background. No FDG avid lymphadenopathy. Scattered mildly FDG avid small left cervical nodes (for example, image 60), presumed reactive. No other evidence of FDG avid malignancy. Mass effect from the splenomegaly causes displacement of the left kidney anteriorly (when compared with outside CT chest 11/16/2020) with some apparent mild- moderate left pelvocaliectasis and associated retention of excreted FDG activity on PET images to the level of the UPJ. Tiny possible nonobstructing stone in the posterior left kidney. Scattered physiologic or inflammatory bowel activity. Significant incidental findings on the low-dose unenhanced CT images: Vascular calcifications, including the coronary arteries. Small bilateral pleural effusions with adjacent atelectasis. Colonic diverticulosis. Small volume free fluid in the pelvis. Bilateral flank edema. Skeletal degenerative changes. Left TKA visualized on [employer] imaging. 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 Findings discussed with Ward Venegas M.D. (pager [phone]) at 04/06/2023 1:50 PM. Procedure Note Jay Jay Ramon M.D. - 04/06/2023 EXAM: PET CT SKULL TO THIGH FDG Serum glucose at time of F-18 FDG injection was 72 mg/dL. Patient followedstandard dietary/fasting requirements for this exam. RADIOPHARMACEUTICAL/MEDS: Route: intravenous fludeoxyglucose F 18 injection INTERMEDIATE (FDG F-18),15.28 millicurie TECHNIQUE: F-18 FDG PET/CT scan was performed from the vertex through theupper thighs with low dose, non-contrast, free-breathing CT images forattenuation correction and anatomic localization (AC/AL), with imagingbeginning at approximately 60 minutes after radiotracer injection. COMPARISON: PET/CT brain 01/20/2022. INDICATION: Suspected hematologic malignancy. Initial staging. Initialtreatment strategy. The patient reports no recent vaccinations. FINDINGS: Splenomegaly with diffuse moderate abnormal FDG uptake, measuringapproximately 19.0 cm with SUVmax 5.9. Diffuse mild-moderate abnormal bone marrow activity without focalsuspicious osseous uptake above background. No FDG avid lymphadenopathy. Scattered mildly FDG avid small left cervicalnodes (for example, image 60), presumed reactive. No other evidence of FDGavid malignancy. Mass effect from the splenomegaly causes displacement of the left kidneyanteriorly (when compared with outside CT chest 11/16/2020) with someapparent mild-moderate left pelvocaliectasis and associated retention ofexcreted FDG activity on PET images to the level of the UPJ. Tiny possible nonobstructing stone in the posteriorleft kidney. Scattered physiologic or inflammatory bowel activity. Significant incidental findings on the low-dose unenhanced CT images:Vascular calcifications, including the coronary arteries. Small bilateralpleural effusions with adjacent atelectasis. Colonic diverticulosis. Smallvolume free fluid in the pelvis. Bilateral flank edema. Skeletal degenerative changes. Left TKA visualizedon [employer] imaging. Presumed bilateral L5 pars defects with associated mildanterolisthesis L5 on S1. Findings discussed with Ward Venegas M.D. (pager [phone]) at 04/06/2023 1:50PM. IMPRESSION: 1. Moderately FDG avid splenomegaly and diffuse bone marrow activitysuspicious for a lymphoproliferative process. No FDG avid lymphadenopathyor other PET/CT evidence of malignancy. 2. Moderate left pelvocaliectasis with retention of excreted FDG activityin the collecting system to the level of the left UPJ, potentiallysecondary to an at least partial obstruction as a result of splenomegalywith associated mass effect and anterior displacement of the kidney. Could consider nuclear medicine [id number] scan with Lasix in further workup if clinically indicated. 3. Small bilateral pleural effusions. Ward Venegas M.D. [facility] [place] PROCEDURES * MYD88, L265P, Somatic Gene Mutation, DNA Allele-Specific PCR (04/06/2023 12:35 PM CLIENT REPRESENTATIVE) Specimen Type Bone marrow 04/10/2023 11:56 AM CLIENT REPRESENTATIVE DTL Interpretation These results are considered preliminary [...] Pathologist: Baljinder Daniel M.D. 04/10/2023 11:56 AM CLIENT REPRESENTATIVE DTL Comment: ----ADDITIONAL INFORMATION---- DNA was extracted [...] developed and its performance characteristics determined by [facility] in a manner consistent with CLIA requirements. This test has not been cleared or approved by the U.S. Food and Drug Administration. 04/06/2023 12:3 5 PM CLIENT REPRESENTATIVE 04/09/2023 12:52 PM CLIENT REPRESENTATIVE Ghulam Palmer M.D. LAB GEN ETIC TESTING [facility] [address] [place] [address], [facility] DTL [address] [facility] [address] [place] [address] * [place] DX BONE MARROW BX & ASPIR (04/06/2023 9:40 AM CLIENT REPRESENTATIVE) Bone Marrow Narrative MMODAL - 04/06/2023 9:40 AM CLIENT REPRESENTATIVE Weston Ren R.N. ? 04/06/2023 ??9:41 AM [...] B-cell Lymphoma, Specified FISH (04/06/2023 9:15 AM CLIENT REPRESENTATIVE) Result Summary Normal 04/17/2023 1:51 PM CLIENT REPRESENTATIVE DTL Disclaimer Applicable to Analyte Specific Reagent (ASR) and Laboratory Developed Tests (LDT). This test was developed and its performance characteristics determined by [facility] in a manner consistent with CLIA requirements. It has not been cleared or approved by the U.S. Food and Drug Administration. This FISH test does not rule out other chromosome abnormalities. 04/17/2023 1:51 PM CLIENT REPRESENTATIVE DTL Released By Quiana Hall, Ph.D. 04/17/2023 1:51 PM CLIENT REPRESENTATIVE DTL Result Table ----- Abnormality Name ? Result ?? Abn% ?? Cutoff% ?? -7q32(D7Z1x2,7q32 x1) ? Normal ? <12.0 ? -17p13.1(TP53x1,D 17Z1x2) ? Normal ? <15.0 ? -17(TP53,D17Z1)x1 ? Normal ? <10.0 ? ----- 04/17/2023 1:51 PM CLIENT REPRESENTATIVE DTL Result Interphase FISH is normal for all loci studied. 04/17/2023 1:51 PM CLIENT REPRESENTATIVE DTL Reason for Referral cytopenias 04/17/2023 1:51 PM CLIENT REPRESENTATIVE DTL Probes Requested 7q32 and TP53 04/17 1:51 PM CLIENT REPRESENTATIVE DTL Specimen Bone Marrow 04/17/2023 1:51 PM CLIENT REPRESENTATIVE DTL Method Locus and probes ?[Strategy;#Nucle i;Vendor] ----- 7CEN(D7Z1),7q32(7q 32) ? [COPY#;100;LDT] 17p13(TP53),17CEN( D17Z1) ? [COPY#;100;AM] Probe strategies include: COPY#=region gain and loss. Scoring Method: Manual Probe vendors include: [facility] = [facility] Developed AM = [employer] ([place], [place]) 04/17/2023 1:51 PM CLIENT REPRESENTATIVE DTL Interpretation The result is within normal limits for the B-cell lymphoma FISH panel. A normal FISH result does not exclude the presence of lymphoma in the bone marrow. Additional cytogenetic studies are reported separately. This test was ordered in the context of a [facility] pathology consultation/case (#[id number]), and this result should be interpreted within the context of the pathology consultation/repor t. 04/17/2023 1:51 PM CLIENT REPRESENTATIVE DTL Bone Marrow 04/06/2023 9:15 AM CLIENT REPRESENTATIVE 04/06/2023 2:12 PM CLIENT REPRESENTATIVE Ghulam Palmer, M.D. LAB GEN ETIC TESTING Performing Organization Address City/[facility]/ZIP Co de Phone Number [facility] [address] [place] [address], [facility] DTL [address] [place] [address] * Hematologic Disorders, DNA and RNA Extract and Hold (04/06/2023 9:15 AM CLIENT REPRESENTATIVE) Specimen Type Bone marrow 04/10/2023 9:39 AM CLIENT REPRESENTATIVE DTL DNA/RNA Extract and Hold Result see method 04/10/2023 9:39 AM CLIENT REPRESENTATIVE DTL DNA/RNA Extraction Performed 2023 9:39 AM CLIENT REPRESENTATIVE DTL Comment: ----ADDITIONAL INFORMATION---- DNA and total RNA were extracted from the sample and will be stored cryopreserved for 1 year from the extraction date. ??To request specific molecular test(s) from the [facility]'s test catalog, please contact [facility] at [phone]. Method summary: DNA and RNA were extracted from the received specimen and stored at -80 C. This test was developed and its performance characteristics determined by [facility] in a manner consistent with CLIA requirements. This test has not been cleared or approved by the U.S. Food and Drug Administration. 04/06/2023 9:15 AM CLIENT REPRESENTATIVE 04/06/2023 1:58 PM CLIENT REPRESENTATIVE Ghulam Palmer M.D. 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 See below for Variants of Unknown Significance and Additional Notes. Please see the section of Panel Gene List below for the complete list of genes tested. 04/20/2023 9:01 AM CLIENT REPRESENTATIVE DTL Clinical Trials Information regarding possible clinical trials for this patient can be found at the following sites: 1). ClinicalTrials.gov: http://clinicaltrial s.gov/ct2/search/adv anced 2). [facility]: http://www.[facility]/ research/clinical-tr ials 3). [employer]: http://www.cancer.go v/clinicaltrials/[facility] 4). The Leukemia & Lymphoma Society's Clinical Trial Support Center https://www.hematolo gy.org/education/cli nicians/clinical-tri vh-uvmstwu-vcdrvo 04/20/2023 9:01 AM CLIENT REPRESENTATIVE DTL Variants of Unknown Significance (VUS) None The VUS variants listed here (with approximate variant allele %) are not sufficiently characterized in the current literature and are therefore of uncertain clinical significance at this time. They are reported here for future reference in the event they become clinically significant in the light of new scientific data. 04/20/2023 9:01 AM CLIENT REPRESENTATIVE DTL Additional Information None 04/20/2023 9:01 AM CLIENT REPRESENTATIVE DTL Method A portion of the testing process was performed at [facility] site [id number]. DNA is extracted from peripheral blood or [...] developed and its performance characteristics determined by [facility] in a manner consistent with CLIA requirements. This test has not been cleared or approved by the U.S. Food and Drug Administration. *Some genetic or genomic alterations such as very large insertion/deletion events, copy number alterations (RADIOLOGY RN) and gene translocation events are not detected by this assay. 04/20/2023 9:01 AM CLIENT REPRESENTATIVE DTL Disclaimer CLINICAL DISCLAIMER The finding of [...] (clonal cytopenias of uncertain significance, CCUS) [PMIDs: [id number], [id number], [id number], and [id number]]. Distinction between CHIP or CCUS and a [...] very large insertion/deletion events, copy number alterations (RADIOLOGY RN) and gene translocation events are not detected by this assay. 04/20/2023 9:[address] [facility] DT OncoHeme Panel Gene list [id number] (NM_[id number]) [...] (NM_002049.3) exons 2 and 4, start at c.--30 before exon 2, GATA2 (NM_032638.4) exons 1-6, [...] time of the report. 04/20/2023 9:01 AM CLIENT REPRESENTATIVE DTL Released by Signing Pathologist: Baljinder Daniel M.D. 04/20/2023 9:01 AM CLIENT REPRESENTATIVE DTL Interpretation These results are considered preliminary and require complete integration with the current pathology case [id number] for final interpretation. ??The result should NOT be interpreted in isolation for the purposes of diagnosis or clinical management. 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 Mutation effect: ??The missense p.Qlq441Gkj (R882H) mutation is frequently identified in hematological malignancies. R882 mutations are associated with tumorigenesis through disruption of normal DNA methylation processes. They demonstrate decreased methyltransferase activity and increased cellular proliferation in vitro (Angel et al., 2011, [id number]; Jink et al., 2013, [id number]). Disease associations: Approximately 19% of individuals with acute myeloid leukemia (AML) have a somatic mutation in the DNMT3A gene (http://cancer.[facility].ac.uk/cosmic). The presence of DNMT3A mutations, particularly mutations at codon 882, have been reported to be a poor prognostic factor in AML (Angel et al., 2011, [id number]; Cronin et al., 2012, 62817347; Kalyna et al., 2012, [id number]; Shivarov et al., 2013, [id number]). However, other studies have not found DNMT3A mutation status to have significant impact on survival outcome (Vasiliyer et al., 2013, 89953381; Mora et al., 2013, 84805893). Approximately 7-13% of individuals with myelodysplastic syndrome (MDS), myeloproliferative neoplasm (MPN) or MDS/MPN have a somatic mutation in the DNMT3A gene (http://cancer.[facility].ac.uk.cosmic). Some research suggests that the presence of DNMT3A mutations is a poor prognostic factor in MDS (Nahed et al., 2014, 53432239; Colin et al., 2011, [id number]), whereas other studies have not found DNMT3A mutation status to be significantly associated with prognosis in MDS (Roller et al., 2013, 26375556). The presence of DNMT3A mutations shows no clear impact on survival outcome in primary myelofibrosis or chronic myelomonocytic leukemia patients (Kenneth et al., 2013, 33276314; Theodore et al., 2014, 91213312). NOTE: Detection of a genetic alteration in [...] significance (CCUS) (Sheila Pérez et al., 2017, [id number]). Clinical and pathologic correlation is suggested in this setting. Therapeutic implications: DNA methyltransferase inhibitors such as FDA-approved hypomethylating agents azacytidine and decitabine have shown therapeutic benefits in some MDS and AML patients. Although their effects on inactivating/damagin g DNMT3A mutations are currently elusive, therapy responses have been reported in some MDS and AML patients with DNMT3A mutations (Amita et al., 2014, [id number]; Checo et al., 2014, [id number]). In AML patients younger than 60 years of age, DNMT3A mutations predicted an improved outcome with high-dose induction therapy (Catalan et al., 2012, [id number]). 04/20/2023 9:01 AM CLIENT REPRESENTATIVE DTL 04/06/2023 9:15 AM CLIENT REPRESENTATIVE 04/06/2023 1:58 PM CLIENT REPRESENTATIVE Ghulam Palmer M.D. LAB GEN ETIC TESTING Performing Organization Address City/State/[facility] Co de Phone Number [facility] [address] [place] [address], [facility] DTL [address] [facility] [address] [place] [address] * Chromosome Analysis, Hematologic Disorders, Bone Marrow (04/06/2023 9:15 AM CLIENT REPRESENTATIVE) Pathologist [facility] Result Summary Normal 04/13/2023 9:49 AM CLIENT REPRESENTATIVE DTL Karyotype 46,XX[20] 04/13/2023 9:49 AM CLIENT REPRESENTATIVE DTL Reason for referral cytopenias 04/13/2023 9:49 AM CLIENT REPRESENTATIVE DTL Specimen Bone Marrow 04/13/2023 9:49 AM CLIENT REPRESENTATIVE DTL Method Culture without mitogens 04/13/2023 9:49 AM CLIENT REPRESENTATIVE DTL Banding Method Band Resolution: <400 Stain Name Cells ? Cells Counted Karyogr ams Prepared ? Analyzed ? GTL ? 20 ? 0 ? 2 ? Total ? 20 ? 0 ? 2 ? Jorge to Stain Name: GTL=G-banding; QFQ=Q-banding; DAPI=DAPI-stain ing; CBL=C-banding; AGNOR=Silver-st aining; NON=Non-banded The sum of Cells Analyzed and Cells Counted equals the total cells examined. 04/13/2023 9:49 AM CLIENT REPRESENTATIVE DTL Additional Information A portion of the testing process was performed at [facility] site [id number] and [id number]. 04/13/2023 9:49 AM CLIENT REPRESENTATIVE DTL Released by Brandt Roberts M.D. 04/13/2023 9:49 AM CLIENT REPRESENTATIVE DTL Interpretation No clonal abnormality was apparent. Additional cytogenetic studies are reported separately. This test was ordered in the context of a [facility] pathology consultation/ca se (#[id number]), and this result should be interpreted within the context of the pathology consultation/re port. 04/13/2023 9:49 AM CLIENT REPRESENTATIVE DTL Bone Marrow 04/06/2023 9:15 AM CLIENT REPRESENTATIVE 04/06/2023 2:12 PM CLIENT REPRESENTATIVE Ghulam Palmer M.D. LAB GEN ETIC TESTING [facility] [address] [place] [address], [facility] DTL [address] [facility] [address] [place] [address] * Myelodysplastic Syndrome by Flow Cytometry, Bone Marrow (04/06/2023 9:15 AM CLIENT REPRESENTATIVE) MDS Panel Performed 4 3:47 PM CLIENT REPRESENTATIVE DTL Final Diagnosis Report reactivated per laboratory in order to incorporate additional panels. Diagnosis unchanged. These results are considered preliminary and require complete integration with the current pathology case [id number] for final interpretation. ??The result should NOT be interpreted in isolation for the purposes of diagnosis or clinical management. 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 ??The [...] for a definitive diagnosis. Reviewed by: Mei GallowayBAdalidS. 4 3:47 PM CLIENT REPRESENTATIVE DT Comment: REVISED RESULTS ----PREVIOUSLY REPORTED ---- These results are considered preliminary and require complete integration with the current pathology case [id number] for final interpretation. ??The result should NOT be interpreted in isolation for the purposes of diagnosis or clinical management. Bone marrow, flow cytometric immunophenotyping: Involved by a CD5-negative, [id number] B-cell lymphoproliferative disorder, kappa light chain-restricted. ??The [...] for a definitive diagnosis. Reviewed by: Mei GallowayBAdalidS., Flagged as: ??(Reported 04/09/2023 11:25) Special Studies [...] received within validated guidelines. 4 3:47 PM CLIENT REPRESENTATIVE DTL Comment: REVISED RESULTS ----PREVIOUSLY REPORTED ---- [...] not performed by flow technologist. 3:47 PM CLIENT REPRESENTATIVE DTL Comment: ----ADDITIONAL INFORMATION---- This test was developed using an analyte specific reagent. Its performance characteristics were determined by [facility] in a manner consistent with CLIA requirements. This test has not been cleared or approved by the U.S. Food and Drug Administration. Bone Marrow 04/06/2023 9:15 AM CLIENT REPRESENTATIVE 04/06/2023 1:35 PM CLIENT REPRESENTATIVE Ghulam Palmer M.D. LAB GEN ETIC TESTING [facility] [address] [place] [address], [facility] DT [address] [facility] [address] [place] [address] * Hematopathology (04/06/2023 6:11 AM CLIENT REPRESENTATIVE) 04/10/2023 10:34 AM [facility] Report electronically signed by Mei Palmer I verify that I have examined all relevant slides/materials for the specimen(s) and rendered or confirmed the diagnosis. 04/10/2023 10:34 AM [facility] Gross Description B: Core biopsy [...] Grossed by CARLOS ALBERTO. 04/10/2023 10:34 AM [facility] Disclaimer This test was developed using an analyte specific reagent. Its performance characteristics were determined by [facility] in a manner consistent with CLIA requirements. This test has not been cleared or approved by the U.S. Food and Drug Administration. Test results for (IHC or [place]) testing are valid for specimens fixed between 6 and 72 hours. ??Delay to fixation, under fixation or over fixation fall outside of guidelines and may affect these results. 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 2645G>A; p.[id number] (10%) No other pathogenic mutations were detected [...] analysis for B-cell lymphoma, specified, bone marrow ([id number]; 04/06/2023): The result is within normal limits for the B-cell lymphoma FISH panel. See cytogenetic report for complete details. Signed by Megan Osullivan M.D. 04/18/2023 12:46 PM ADDENDUM Cytogenetic analysis, bone marrow ([id number], 04/06/2023): 46,XX[20] No clonal abnormality was apparent. See cytogenetics report for complete details. Signed by Megan Osullivan M.D. 04/16/2023 2:53 PM ADDENDUM Molecular analysis for MYD88 L265P Mutation Analysis, Allele-specific PCR, bone marrow ([id number]; 04/06/2023): Negative for MYD88 L265P alteration. See molecular report for complete details. Molecular Hematopathology studies interpreted by Baljinder Daniel M.D. Signed by Mei Palmer 04/14/2023 5:08 PM 04/23/2023 11:47 AM [facility] Comment:REVISED RESULTS Interpretation FINAL DIAGNOSIS [...] AE1/AE3, granzyme B, mammaglobin, TIA-1: ??The abnormal IX70-svykttbk B lymphocytes are associated with [id number]-cahawnak plasma cells in a background of CD3-positive [...] from date of extraction. 04/23/2023 11:47 AM CLIENT REPRESENTATIVE [facility] 04/06/2023 6:11 AM CLIENT REPRESENTATIVE 04/06/2023 6:11 AM CLIENT REPRESENTATIVE Ghulam Pardanani M.B.B.S., M.D. LAB FELIPE G PATH ORDERABLES [facility] [address] [place] [address], [facility] 200 [facility] [address] [place] [address] * (ABNORMAL) Immunoglobulins (IgG, IgA, and IgM) (04/05/2023 3:45 PM CLIENT REPRESENTATIVE) Immunoglobulin A (IgA), S 352 61 - 356 mg/dL 04/09/2023 4:42 PM CLIENT REPRESENTATIVE SDS Immunoglobulin M (IgM), S 718(H) 37 - 286 mg/dL 04/09/2023 6:07 PM CLIENT REPRESENTATIVE SDS Immunoglobulin G (IgG), S 619(L) 767 - 1590 mg/dL 04/09/2023 4:42 PM CLIENT REPRESENTATIVE SDS Blood (Blood, Venous) 04/05/2023 3:45 PM CLIENT REPRESENTATIVE 04/09/2023 3:11 PM CLIENT REPRESENTATIVE Santiago Mejía M.D., M.S. LAB BLOOD ADD- ON [facility] [address] [place], [place] [id number] [place] [address] [place] [address] * Syphilis IgG w/ Reflex, EIA, Serum (04/05/2023 3:45 PM CLIENT REPRESENTATIVE) Pathologist [facility] Syphilis IgG w/ Reflex, EIA, S Nonreactive Nonreactive 04/06/2023 12:30 PM CLIENT REPRESENTATIVE [facility] Comment: No serologic evidence of infection with T. pallidum (syphilis). ??Repeat testing may be considered in patients with suspected acute or primary syphilis in 2-4 weeks. For additional information on interpretation of the syphilis reverse algorithm and results, see: [email or web address] Blood (Blood, Venous) 04/05/2023 3:45 PM CLIENT REPRESENTATIVE 04/05/2023 7:45 PM CLIENT REPRESENTATIVE Ward Venegas M.D. LAB MICROBIOLOGY - B LOOD ORDERABLES Performing Organization Address [facility] Co de Phone Number [facility] [address] [place] [address] [facility] [address] [place] [address] * Methylmalonic Acid (MMA), Quantitative (04/05/2023 3:45 PM CLIENT REPRESENTATIVE) Methylmalonic Acid, QN, S 0.15 <=0.40 nmol/mL 04/10/2023 8:05 AM CLIENT REPRESENTATIVE DTL Comment: ----ADDITIONAL INFORMATION---- This test was developed and its performance characteristics determined by [facility] in a manner consistent with CLIA requirements. This test has not been cleared or approved by the U.S. Food and Drug Administration. Blood (Blood, Venous) 04/05/2023 3:45 PM CLIENT REPRESENTATIVE 04/06/2023 7:47 AM CLIENT REPRESENTATIVE Ward Venegas M.D. LAB BLOOD ADD-ON Performing Organization Address [facility] Co de Phone Number [facility] [address] [place] [address], [facility] DTL [address] [facility] [address] [place] [address] * (ABNORMAL) Immunoglobulin Free Light Chains (04/05/2023 3:45 PM CLIENT REPRESENTATIVE) Frederic Free Light Chain, S 2.90(H) 0.3300 - 1.94 mg/dL 04/06/2023 9:45 AM CLIENT REPRESENTATIVE SDSC Lambda Free Light Chain, S 2.03 0.5700 - 2.63 mg/dL 04/06/2023 9:45 AM CLIENT REPRESENTATIVE SDS Frederic/Lambda FLC Ratio 1.43 0.2600 - 1.65 04/06/2023 9:45 AM CLIENT REPRESENTATIVE SDSC Blood (Blood, Venous) 04/05/2023 3:45 PM CLIENT REPRESENTATIVE 04/06/2023 6:18 AM CLIENT REPRESENTATIVE Ward Venegas M.D. LAB BLOOD ADD-ON [facility] [address] [place] [address] [facility] [address] [place] [address] * (ABNORMAL) Myelopathy, Autoimmune/Paraneoplastic Evaluation (04/05/2023 3:44 PM CLIENT REPRESENTATIVE) Autoimmune Myelopathy Interp, S see below 04/19/2023 10:13 AM CLIENT REPRESENTATIVE DTL Comment: The following antibody was identified: [...] * IFA Notes None. 04/19/2023 10:13 AM CLIENT REPRESENTATIVE DTL Amphiphysin Ab, S Negative Negative 024 10:13 AM CLIENT REPRESENTATIVE DTL Comment: ----ADDITIONAL INFORMATION---- This test was developed and its performance characteristics determined by [facility] in a manner consistent with CLIA requirements. This test has not been cleared or approved by the U.S. Food and Drug Administration. AGNA-1, S Negative Negative 04/19/2023 10:13 AM CLIENT REPRESENTATIVE DTL Comment: ----ADDITIONAL INFORMATION---- This test was developed and its performance characteristics determined by [facility] in a manner consistent with CLIA requirements. This test has not been cleared or approved by the U.S. Food and Drug Administration. ANALILIA-1, S Negative Negative 04/19/2023 10:13 AM CLIENT REPRESENTATIVE DTL Comment: ----ADDITIONAL INFORMATION---- This test was developed and its performance characteristics determined by [facility] in a manner consistent with CLIA requirements. This test has not been cleared or approved by the U.S. Food and Drug Administration. ANALILIA-2, S Negative Negative 04/19/2023 10:13 AM CLIENT REPRESENTATIVE DTL Comment: ----ADDITIONAL INFORMATION---- This test was developed and its performance characteristics determined by [facility] in a manner consistent with CLIA requirements. This test has not been cleared or approved by the U.S. Food and Drug Administration. ANALILIA-3, S Negative Negative 04/19/2023 10:13 AM CLIENT REPRESENTATIVE DTL Comment: ----ADDITIONAL INFORMATION---- This test was developed and its performance characteristics determined by [facility] in a manner consistent with CLIA requirements. This test has not been cleared or approved by the U.S. Food and Drug Administration. AP3B2 IFA, S Negative Negative 04/19/2023 10:13 AM CLIENT REPRESENTATIVE DTL Comment: ----ADDITIONAL INFORMATION---- This test was developed and its performance characteristics determined by [facility] in a manner consistent with CLIA requirements. This test has not been cleared or approved by the U.S. Food and Drug Administration. CRMP-5-IgG Western Blot, S Negative Negative 04/19/2023 10:13 AM CLIENT REPRESENTATIVE DTL Comment: ----ADDITIONAL INFORMATION---- This test was developed and its performance characteristics determined by [facility] in a manner consistent with CLIA requirements. This test has not been cleared or approved by the U.S. Food and Drug Administration. DPPX Ab IFA, S Negative Negative 04/19/2023 10:13 AM CLIENT REPRESENTATIVE DTL Comment: ----ADDITIONAL INFORMATION---- This test was developed and its performance characteristics determined by [facility] in a manner consistent with CLIA requirements. This test has not been cleared or approved by the U.S. Food and Drug Administration. RONDA-B-R Ab CBA, S Negative Negative 2023 10:13 AM CLIENT REPRESENTATIVE DTL Comment: ----ADDITIONAL INFORMATION---- This test was developed and its performance characteristics determined by [facility] in a manner consistent with CLIA requirements. This test has not been cleared or approved by the U.S. Food and Drug Administration. GAD65 Ab Assay, S 0.03(H) <=0.02 nmol/L 04/19/2023 10:13 AM CLIENT REPRESENTATIVE DTL Comment: ----ADDITIONAL INFORMATION---- This test was developed and its performance characteristics determined by [facility] in a manner consistent with CLIA requirements. This test has not been cleared or approved by the U.S. Food and Drug Administration. GFAP IFA, S Negative Negative 04/19/2023 10:13 AM CLIENT REPRESENTATIVE DTL Comment: ----ADDITIONAL INFORMATION---- This test was developed and its performance characteristics determined by [facility] in a manner consistent with CLIA requirements. This test has not been cleared or approved by the U.S. Food and Drug Administration. mGluR1 Ab IFA, S Negative Negative 04/19/19 10:13 AM CLIENT REPRESENTATIVE DTL Comment: ----ADDITIONAL INFORMATION---- This test was developed and its performance characteristics determined by [facility] in a manner consistent with CLIA requirements. This test has not been cleared or approved by the U.S. Food and Drug Administration. MOG FACS, S Negative Negative 04/19/2023 10:13 AM CLIENT REPRESENTATIVE DTL Comment: ----ADDITIONAL INFORMATION---- This test was developed and its performance characteristics determined by [facility] in a manner consistent with CLIA requirements. This test has not been cleared or approved by the U.S. Food and Drug Administration. NIF IFA, S Negative Negative 04/19/2023 10:13 AM CLIENT REPRESENTATIVE DTL Comment: ----ADDITIONAL INFORMATION---- This test was developed and its performance characteristics determined by [facility] in a manner consistent with CLIA requirements. This test has not been cleared or approved by the U.S. Food and Drug Administration. NMO/AQP4 FACS, S Negative Negative 04/19/19 10:13 AM CLIENT REPRESENTATIVE DTL Comment: ----ADDITIONAL INFORMATION---- This test was developed and its performance characteristics determined by [facility] in a manner consistent with CLIA requirements. This test has not been cleared or approved by the U.S. Food and Drug Administration. Neurochondrin IFA, S Negative Negative 04/19/2023 10:13 AM CLIENT REPRESENTATIVE DTL Comment: ----ADDITIONAL INFORMATION---- This test was developed and its performance characteristics determined by [facility] in a manner consistent with CLIA requirements. This test has not been cleared or approved by the U.S. Food and Drug Administration. CABLE CUTTER AND SWAGER-1, S Negative Negative 04/19/2023 10:13 AM CLIENT REPRESENTATIVE DTL Comment: ----ADDITIONAL INFORMATION---- This test was developed and its performance characteristics determined by [facility] in a manner consistent with CLIA requirements. This test has not been cleared or approved by the U.S. Food and Drug Administration. CABLE CUTTER AND SWAGER-2, S Negative Negative 04/19/2023 10:13 AM CLIENT REPRESENTATIVE DTL Comment: ----ADDITIONAL INFORMATION---- This test was developed and its performance characteristics determined by [facility] in a manner consistent with CLIA requirements. This test has not been cleared or approved by the U.S. Food and Drug Administration. Septin-7 IFA, S Negative Negative 4 10:13 AM CLIENT REPRESENTATIVE DTL Comment: ----ADDITIONAL INFORMATION---- This test was developed and its performance characteristics determined by [facility] in a manner consistent with CLIA requirements. This test has not been cleared or approved by the U.S. Food and Drug Administration. Blood (Blood, Venous) 04/05/2023 3:44 PM CLIENT REPRESENTATIVE 04/11/2023 8:58 AM CLIENT REPRESENTATIVE Yazan Osei M.D. LAB BLOOD ADD-ON [facility] [address] [place] [address], [facility] DT 200 [facility] [address] [place] [address] * PATIENT REGISTRATION REP Demyelinating Disease Eval, Serum (04/05/2023 3:44 PM CLIENT REPRESENTATIVE) PATIENT REGISTRATION REP Demyelinating Disease Interp, S TNP 04/13/2023 3:50 PM CLIENT REPRESENTATIVE DTL Comment:Test was added to a different order number. See [id number]. NMO/AQP4 FACS, S CANCELED Negative 04/13/19 24 3:50 PM CLIENT REPRESENTATIVE DTL Comment: REVISED RESULTS Test was added to a different order number. ----ADDITIONAL INFORMATION---- This test was developed and its performance characteristics determined by [facility] in a manner consistent with CLIA requirements. This test has not been cleared or approved by the U.S. Food and Drug Administration. ----PREVIOUSLY REPORTED ---- Negative, Flagged as: Normal (Reported 04/11/2023 23:33) MOG FACS, S CANCELED Negative 04/13/2023 3:50 PM CLIENT REPRESENTATIVE DTL Comment: REVISED RESULTS Test was added to a different order number. ----ADDITIONAL INFORMATION---- This test was developed and its performance characteristics determined by [facility] in a manner consistent with CLIA requirements. This test has not been cleared or approved by the U.S. Food and Drug Administration. ----PREVIOUSLY REPORTED ---- Negative, Flagged as: Normal (Reported 04/10/2023 06:09) Blood (Blood, Venous) 04/05/2023 3:44 PM CLIENT REPRESENTATIVE 04/06/2023 8:16 AM CLIENT REPRESENTATIVE Ward Venegas M.D. LAB BLOOD ADD-ON Performing Organization Address City/[facility]/ZIP Co de Phone Number [facility] [address] [facility] [address] [place] [address] * Folate (04/05/2023 3:44 PM CLIENT REPRESENTATIVE) [facility], S 9.0 >=4.0 mcg/L 04/06/2023 7: 39 AM CLIENT REPRESENTATIVE DTL Blood (Blood, Venous) 04/05/2023 3:44 PM CLIENT REPRESENTATIVE 04/05/2023 4:25 PM CLIENT REPRESENTATIVE Ward Venegas M.D. LAB BLOOD ADD-ON Performing Organization Address [facility] Co de Phone Number [facility] [address] [place] [address] * LD (Lactate Dehydrogenase) (04/05/2023 3:44 PM CLIENT REPRESENTATIVE) [facility] Jeri LD 131 122 - 222 U/L 04/05/2023 4:48 PM CLIENT REPRESENTATIVE DTL Blood (Blood, Venous) 04/05/2023 3:44 PM CLIENT REPRESENTATIVE 04/05/2023 4:11 PM CLIENT REPRESENTATIVE Ward Venegas M.D. LAB BLOOD NON ADD-ON Performing Organization Address City/[facility]/ZIP Co de Phone Number [facility] [address] [place] [address] * Vitamin E Level (04/05/2023 3:43 PM CLIENT REPRESENTATIVE) A-Tocopherol, Vitamin E 11.9 5.5 - 17.0 mg/L 04/12/2023 1:21 PM CLIENT REPRESENTATIVE [facility] Comment: ----ADDITIONAL INFORMATION---- This test was developed and its performance characteristics determined by [facility] in a manner consistent with CLIA requirements. This test has not been cleared or approved by the U.S. Food and Drug Administration. Blood (Blood, Venous) 04/05/2023 3:43 PM CLIENT REPRESENTATIVE 04/06/2023 7:54 AM CLIENT REPRESENTATIVE Ward Venegas M.D. LAB BLOOD NON ADD-ON Performing Organization Address City/[facility]/ZIP Co de Phone Number [facility] [address] [place] [address] [facility] [address] [place] [address] [place] [address] * (ABNORMAL) Thiamine (Vitamin B1), Whole Blood (04/05/2023 3:43 PM CLIENT REPRESENTATIVE) Thiamine (Vitamin B1), WB 56(L) 70 - 180 nmol/L 04/09/2023 2:27 PM CLIENT REPRESENTATIVE [facility] Comment: ----ADDITIONAL INFORMATION---- This test was developed and its performance characteristics determined by [facility] in a manner consistent with CLIA requirements. This test has not been cleared or approved by the U.S. Food and Drug Administration. Blood (Blood, Venous) 04/05/2023 3:43 PM CLIENT REPRESENTATIVE 04/06/2023 10:17 AM CLIENT REPRESENTATIVE Ward Venegas M.D. LAB BLOOD NON ADD-ON [facility] [address] [place] [address] [facility] [address] [place] [address] [place] [address] * Vitamin B3 and Metabolites (04/05/2023 3:42 PM CLIENT REPRESENTATIVE) Nicotinic Acid (Niacin) <5.0 Cutoff:<5 .0 ng/mL 04/07/2023 11:45 AM [facility] Nicotinamide 11.3 5.0 - 48.0 ng/mL 04/07/2023 11:45 AM [facility] Nicotinuric Acid <5.0 Cutoff:<5 .0 ng/mL 04/07/2023 11:45 AM [facility] Comment: ----ADDITIONAL INFORMATION---- Testing performed by Liquid Chromatography-Tandem Mass Spectrometry (LC-MS/MS) This test was developed and its performance characteristics determined by [facility] in a manner consistent with CLIA requirements. This test has not been cleared or approved by the U.S. Food and Drug Administration. Blood (Blood, Venous) 04/05/2023 3:42 PM CLIENT REPRESENTATIVE 04/06/2023 12:01 PM CLIENT REPRESENTATIVE Ward Venegas M.D. LAB BLOOD NON ADD-ON Performing Organization Address City/[facility]/ZIP Co de Phone Number [facility] [address] [place] [address] [facility] [address] [place] [address] [place] [address] * Ascorbic Acid (Vitamin C) (04/05/2023 3:41 PM CLIENT REPRESENTATIVE) [facility] Ascorbic Acid, P 0.6 0.4 - 2.0 mg/dL 04/07/2023 12:08 PM [facility] Comment: ----ADDITIONAL INFORMATION---- This test was developed and its performance characteristics determined by [facility] in a manner consistent with CLIA requirements. This test has not been cleared or approved by the U.S. Food and Drug Administration. Blood (Blood, Venous) 04/05/2023 3:41 PM CLIENT REPRESENTATIVE 04/06/2023 2:44 PM CLIENT REPRESENTATIVE Ward Venegas M.D. LAB BLOOD NON ADD-ON [facility] [address] [place] [address] [facility] [address] [place] [address] [place] [address] * (ABNORMAL) Riboflavin (Vitamin B2) (04/05/2023 3:41 PM CLIENT REPRESENTATIVE) Riboflavin (Vitamin B2), P 30(H) 1 - 19 mcg/L 04/09/2023 7:30 AM CLIENT REPRESENTATIVE [facility] Comment: ----ADDITIONAL INFORMATION---- This test was developed and its performance characteristics determined by [facility] in a manner consistent with CLIA requirements. This test has not been cleared or approved by the U.S. Food and Drug Administration. Blood (Blood, Venous) 04/05/2023 3:41 PM CLIENT REPRESENTATIVE 04/06/2023 7:22 AM CLIENT REPRESENTATIVE Ward Venegas M.D. LAB BLOOD NON ADD-ON [facility] [address] [place] [address] [facility] [address] [place] [address] [place] [address] * Leukemia/Lymphoma Immunophenotyping by Flow Cytometry, Blood (04/05/2023 3:11 PM CLIENT REPRESENTATIVE) Pathologist [facility] LCMSB Result Performed 04/09/2023 11:26 AM CLIENT REPRESENTATIVE DTL Final Diagnosis: Peripheral blood, flow cytometric [...] Reviewed by: Mei Palmer 04/09/2023 11:26 AM CLIENT REPRESENTATIVE DTL Special Studies: WBC: ??2.0 x 10(9)/L [...] received within validated guidelines. 04/09/2023 11:26 AM CLIENT REPRESENTATIVE DTL Microscopic Description A [id number] slide prepared from the flow cytometry specimen is examined. ??No morphologic features of acute leukemia or lymphoma are identified. 04/09/2023 11:26 AM CLIENT REPRESENTATIVE DTL Comment: ----ADDITIONAL INFORMATION---- This test was developed using an analyte specific reagent. Its performance characteristics were determined by [facility] in a manner consistent with CLIA requirements. This test has not been cleared or approved by the U.S. Food and Drug Administration. Blood (Blood, Venous) 04/05/2023 3:11 PM CLIENT REPRESENTATIVE 04/05/2023 4:21 PM CLIENT REPRESENTATIVE Ward Venegas M.D. LAB GENETIC TESTING [facility] [address] [place] [address], [facility] [address] [facility] [address] [place] [address] * (ABNORMAL) EBV DNA Detect/Quant (04/05/2023 3:10 PM CLIENT REPRESENTATIVE) [facility] EBV DNA Detect/Quant, P <35(A) Undetected IU/mL 04/06/2023 4:42 PM CLIENT REPRESENTATIVE [facility] Comment: Result in log IU/mL is <1.54. EBV DNA is detected, but level present is <35 IU/mL (<1.54 log IU/mL). This assay cannot accurately quantify EBV DNA below this level. ----ADDITIONAL INFORMATION---- The quantification range of this assay is 35 to 100,000,000 IU/mL (1.54 log to 8.00 log IU/mL). Testing was performed using the priya EBV test ([employer] Blood (Blood, Venous) 04/05/2023 3:10 PM CLIENT REPRESENTATIVE 04/05/2023 8:04 PM CLIENT REPRESENTATIVE Ward Venegas M.D. LAB MICROBIOLOGY - B LOOD ORDERABLES [facility] [address] [place] [address] [facility] [address] [place] [address] [place] [address] * MR Cervical Spine without and with IV Contrast (04/05/2023 1:05 PM CLIENT REPRESENTATIVE) Anatomical Region Laterality Modality Spine, Cervical Spine, Neuro radiology RST LOS, Neuroradiology [facility], [facility] N/A Magneti c Resonance Impressions 04/05/2023 3:28 PM CLIENT REPRESENTATIVE 1. ??Moderate multilevel cervical spondylosis (most pronounced at C4-C6) as described. No high-grade spinal canal or neural foraminal narrowing. 2. ??Prominent left greater than right C1-2 facet effusion which may function as a source of pain generation. 3. ??Otherwise, unremarkable cervical spine MRI without abnormal cord signal, marrow replacing lesion, or abnormal enhancement. Narrative 04/05/2023 3:28 PM CLIENT REPRESENTATIVE EXAM: MR CERVICAL SPINE WITHOUT AND WITH [...] and with IV Contrast (04/05/2023 1:05 PM CLIENT REPRESENTATIVE) Anatomical Region Laterality Modality Head, Brain, Neuroradiology R[facility], Neuroradiology [facility], Neuroradiology [facility] N/A Magnetic Resonance Impressions 04/05/2023 2:39 PM CLIENT REPRESENTATIVE 1. ??No acute intracranial findings. Specifically, no evidence for acute territorial infarct. 2. ??T2 hyperintense lesions within the bilateral basal ganglia are unchanged dating back to MRI performed 06/13/2021 and should represent benign perivascular spaces. Narrative 04/05/2023 2:39 PM CLIENT REPRESENTATIVE EXAM: MR BRAIN WITHOUT AND WITH IV [...] Ward Venegas M.D. Manjula MRI PROCEDURES * (ABNORMAL) Basic Metabolic Panel (04/05/2023 6:52 AM CLIENT REPRESENTATIVE) Pathologist [facility] Potassium, S 2.9(L) 3.6 - 5.2 mmol/L 04/05/2023 9:07 AM CLIENT REPRESENTATIVE DTL Sodium, S 142 135 - 145 mmol/L 04/05/2023 9:07 AM CLIENT REPRESENTATIVE DTL Chloride, S 103 98 - 107 mmol/L 04/05/2023 9:07 AM CLIENT REPRESENTATIVE DTL Bicarbonate, S 28 22 - 29 mmol/L 04/05/2023 9:07 AM CLIENT REPRESENTATIVE DTL Anion Gap 11 7 - 15 04/05/2023 9:07 AM CLIENT REPRESENTATIVE DTL BUN (Blood Urea Nitrogen), S 14 6 - 21 mg/dL 04/05/2023 9:07 AM CLIENT REPRESENTATIVE DTL Creatinine 1.21(H) 0.59 - 1.04 mg/dL 04/05/2023 9:07 AM CLIENT REPRESENTATIVE DTL Estimated GFR (eGFR) 45(L) >=60 mL/min/BSA 04/05/2023 9:07 AM CLIENT REPRESENTATIVE DTL Comment: Estimated GFR calculated using the 2020 CKD_EPI creatinine equation. Calcium, Total, S 10.6(H) 8.8 - 10.2 mg/dL 04/05/2023 9:39 AM CLIENT REPRESENTATIVE DTL Glucose, S 82 70 - 140 mg/dL 04/05/2023 9:07 AM CLIENT REPRESENTATIVE DTL Blood (Blood, Venous) 04/05/2023 6:52 AM CLIENT REPRESENTATIVE 04/05/2023 7:37 AM CLIENT REPRESENTATIVE Milli Faria M.D. LAB BLOOD ADD-ON [facility] [address] [place] [address], [facility] [address] [place] [address] * (ABNORMAL) CBC with Differential, Blood (04/05/2023 6:52 AM CLIENT REPRESENTATIVE) Pathologist [facility] Hemoglobin 9.3(L) 11.6 - 15.0 g/dL 04/05/2023 7:48 AM CLIENT REPRESENTATIVE DTL Hematocrit 27.0(L) 35.5 - 44.9 % 04/05/2023 7:48 AM CLIENT REPRESENTATIVE DTL Erythrocytes 2.87(L) 3.92 - 5.13 x10(12)/L 04/05/2023 7:48 AM CLIENT REPRESENTATIVE DTL MCV 94.1 78.2 - 97.9 fL 04/05/2023 7:48 AM CLIENT REPRESENTATIVE DTL RBC Distrib Width 14.4 12.2 - 16.1 % 04/05/2023 7:48 AM CLIENT REPRESENTATIVE DTL Platelet Count 61(L) 157 - 371 x10(9)/L 04/05/2023 9:18 AM CLIENT REPRESENTATIVE DTL Comment:Results confirmed by smear, no clumping or interference seen. Leukocytes 3.0(L) 3.4 - 9.6 x10(9)/L 04/05/2023 9:18 AM CLIENT REPRESENTATIVE DTL Neutrophils 1.45(L) 1.56 - 6.45 x10(9)/L 04/05/2023 7:48 AM CLIENT REPRESENTATIVE PM Lymphocytes 1.24 0.95 - 3.07 x10(9)/L 04/05/2023 7:48 AM CLIENT REPRESENTATIVE DTL Monocytes 0.27 0.26 - 0.81 x10(9)/L 04/05/2023 7:48 AM CLIENT REPRESENTATIVE DTL Eosinophils 0.04 0.03 - 0.48 x10(9)/L 04/05/2023 7:48 AM CLIENT REPRESENTATIVE DTL Basophils 0.03 0.01 - 0.08 x10(9)/L 04/05/2023 7:48 AM CLIENT REPRESENTATIVE DTL Blood (Blood, Venous) 04/05/2023 6:52 AM CLIENT REPRESENTATIVE 04/05/2023 7:31 AM CLIENT REPRESENTATIVE Milli Faria M.D. LAB BLOOD ADD-ON [facility] [address] [place] [address], [facility] DTL [facility] [address] [place] [address] [facility] [address] [place] [address] * ECG 12 Lead (04/04/2023 1:13 PM CLIENT REPRESENTATIVE) Ventricular Rate ECG/Min 67 BPM MUSE W[place] Interval 154 ms MUSE QRSD Interval 86 ms MUSE QT Interval 400 ms MUSE QTC Interval 423 ms MUSE P [place] 42 degrees MUSE R [place] -23 degrees MUSE T Wave [place] -44 degrees MUSE 04/04/2023 1:13 PM CLIENT REPRESENTATIVE 04/04/2023 1:35 PM CLIENT REPRESENTATIVE Impressions MUSE - 04/04/2023 1:35 PM CLIENT REPRESENTATIVE Normal sinus rhythm Minimal voltage criteria for LVH, may be normal variant Nonspecific ST and T wave abnormality When compared with ECG of 02-APR-2023 16:09, QT has shortened Reviewed by STEPHANIE Mcgregor Narrative Procedure Note Brijesh Cassidy M.D. - 04/04/2023 IMPRESSION: Normal sinus rhythm Minimal voltage criteria for LVH, may be normal variant Nonspecific ST and T wave abnormality When compared with ECG of 02-APR-2023 16:09, QT has shortened Reviewed by STEPHANIE Mcgregor Cinda Henson M.D. ECG ORDERABLES Performing Organization Address [facility] Co de Phone Number MUSE NA * Prothrombin Time (PT) (04/04/2023 8:29 AM CLIENT REPRESENTATIVE) Prothrombin Time, P 12.3 9.4 - 12.5 sec 04/04/2023 9:38 AM CLIENT REPRESENTATIVE DTL INR 1.1 0.9 - 1.1 04/04/2023 9:38 AM CLIENT REPRESENTATIVE DTL Comment: ----ADDITIONAL INFORMATION---- Standard intensity warfarin therapeutic range: 2.0 to 3.0 ?? High intensity warfarin therapeutic range: 2.5 to 3.5 Blood (Blood, Venous) 04/04/2023 8:29 AM CLIENT REPRESENTATIVE 04/04/2023 9:12 AM CLIENT REPRESENTATIVE Alberto Robledo M.D. LAB BLOOD ADD-ON [facility] [address] [place] [address], [place] DTL [facility] [address] [place] [address] * (ABNORMAL) CBC with Differential, Blood (04/04/2023 8:29 AM CLIENT REPRESENTATIVE) Hemoglobin 8.8(L) 11.6 - 15.0 g/dL 04/04/2023 9:42 AM CLIENT REPRESENTATIVE DTL Hematocrit 27.1(L) 35.5 - 44.9 % 04/04/2023 9:42 AM CLIENT REPRESENTATIVE DTL Erythrocytes 2.78(L) 3.92 - 5.13 x10(12)/L 04/04/2023 9:42 AM CLIENT REPRESENTATIVE DTL MCV 97.5 78.2 - 97.9 fL 04/04/2023 9:42 AM CLIENT REPRESENTATIVE DTL RBC Distrib Width 14.6 12.2 - 16.1 % 04/04/2023 9:42 AM CLIENT REPRESENTATIVE DTL Platelet Count 62(L) 157 - 371 x10(9)/L 04/04/2023 9:42 AM CLIENT REPRESENTATIVE DTL Leukocytes 2.7(L) 3.4 - 9.6 x10(9)/L 04/04/2023 9:42 AM CLIENT REPRESENTATIVE DTL Neutrophils 1.19(L) 1.56 - 6.45 x10(9)/L 04/04/2023 9:42 AM CLIENT REPRESENTATIVE DHPM Lymphocytes 1.24 0.95 - 3.07 x10(9)/L 04/04/2023 9:42 AM CLIENT REPRESENTATIVE DTL Monocytes 0.24(L) 0.26 - 0.81 x10(9)/L 04/04/2023 9:42 AM CLIENT REPRESENTATIVE DTL Eosinophils 0.03 0.03 - 0.48 x10(9)/L 04/04/2023 9:42 AM CLIENT REPRESENTATIVE DTL Basophils <0.03 0.01 - 0.08 x10(9)/L 04/04/2023 9:42 AM CLIENT REPRESENTATIVE DTL Blood (Blood, Venous) 04/04/2023 8:29 AM CLIENT REPRESENTATIVE 04/04/2023 9:12 AM CLIENT REPRESENTATIVE Milli Faria M.D. LAB BLOOD ADD-ON [facility] [address] [place] [address], [facility] [address] [place] [address] [facility] [address] [place] [address] * (ABNORMAL) Basic Metabolic Panel (04/04/2023 8:28 AM CLIENT REPRESENTATIVE) Potassium, S 3.3(L) 3.6 - 5.2 mmol/L 04/04/2023 9:46 AM CLIENT REPRESENTATIVE DTL Sodium, S 141 135 - 145 mmol/L 04/04/2023 9:46 AM CLIENT REPRESENTATIVE DTL Chloride, S 101 98 - 107 mmol/L 04/04/2023 9:46 AM CLIENT REPRESENTATIVE DTL Bicarbonate, S 30(H) 22 - 29 mmol/L 04/04/2023 9:46 AM CLIENT REPRESENTATIVE DTL Anion Gap 10 7 - 15 04/04/2023 9:46 AM CLIENT REPRESENTATIVE DTL BUN (Blood Urea Nitrogen), S 13 6 - 21 mg/dL 04/04/2023 9:46 AM CLIENT REPRESENTATIVE DTL Creatinine 1.05(H) 0.59 - 1.04 mg/dL 04/04/2023 9:46 AM CLIENT REPRESENTATIVE DTL Estimated GFR (eGFR) 53(L) >=60 mL/min/BSA 04/04/2023 9:46 AM CLIENT REPRESENTATIVE DTL Comment: Estimated GFR calculated using the 2020 CKD_EPI creatinine equation. Calcium, Total, S 10.7(H) 8.8 - 10.2 mg/dL 04/04/2023 9:52 AM CLIENT REPRESENTATIVE DTL Glucose, S 75 70 - 140 mg/dL 04/04/2023 9:46 AM CLIENT REPRESENTATIVE DTL Blood (Blood, Venous) 04/04/2023 8:28 AM CLIENT REPRESENTATIVE 04/04/2023 9:26 AM CLIENT REPRESENTATIVE Milli Faria M.D. LAB BLOOD ADD-ON [facility] [address] [place] [address], [facility] [address] [place] [address] * (ABNORMAL) Zinc (04/04/2023 8:28 AM CLIENT REPRESENTATIVE) Zinc, S 58(L) 60 - 106 mcg/dL 04/04/2023 5:46 PM CLIENT REPRESENTATIVE [facility] Comment: ----ADDITIONAL INFORMATION---- This test was developed and its performance characteristics determined by [facility] in a manner consistent with CLIA requirements. This test has not been cleared or approved by the U.S. Food and Drug Administration. Blood (Blood, Venous) 04/04/2023 8:28 AM CLIENT REPRESENTATIVE 04/04/2023 12:41 PM CLIENT REPRESENTATIVE Cinda Henson M.D. LAB BLOOD NON ADD-ON Performing Organization Address City/[facility]/ZIP Co de Phone Number [facility] [address] [place] [address] [facility] [address] [place] [address] [place] [address] * Folate (04/04/2023 8:28 AM CLIENT REPRESENTATIVE) Folate, S 8.9 >=4.0 mcg/L 04/04/2023 10:20 AM CLIENT REPRESENTATIVE DT Blood (Blood, Venous) 04/04/2023 8:28 AM CLIENT REPRESENTATIVE 04/04/2023 9:26 AM CLIENT REPRESENTATIVE Cinda Henson M.D. LAB BLOOD ADD-ON Performing Organization Address City/[facility]/ZIP Co de Phone Number [address] [address], [facility] [address] [place] [address] * (ABNORMAL) Vitamin B12 Assay (04/04/2023 8:28 AM CLIENT REPRESENTATIVE) Vitamin B12 Assay, S 1300(H) 180 - 914 ng/L 04/04/2023 10:21 AM CLIENT REPRESENTATIVE [facility] Comment: ----ADDITIONAL INFORMATION---- In patients being evaluated for vitamin B12 deficiency who have intrinsic factor blocking antibodies (IFBA), false elevations of B12 may occur due to IFBA interference thus potentially obscuring a physiological deficiency of B12. If observed B12 concentrations are discordant with clinical presentation, measurement of methylmalonic acid (MMA) should be considered. Blood (Blood, Venous) 04/04/2023 8:28 AM CLIENT REPRESENTATIVE 04/04/2023 9:26 AM CLIENT REPRESENTATIVE Cinda Henson M.D. LAB BLOOD ADD-ON Performing Organization Address [facility] Co de Phone Number [facility] [address] [place] [address], [place] DTL [facility] [address] [place] [address] * Parathyroid Hormone-Related Peptide (PTHrP) (04/04/2023 8:28 AM CLIENT REPRESENTATIVE) PTH-Related Peptide <0.4 < or = 4.2 pmol/L 04/06/2023 2:27 PM CLIENT REPRESENTATIVE [facility] Comment: ----ADDITIONAL INFORMATION---- This test was developed and its performance characteristics determined by [facility] in a manner consistent with CLIA requirements. This test has not been cleared or approved by the U.S. Food and Drug Administration. Blood (Blood, Venous) 04/04/2023 8:28 AM CLIENT REPRESENTATIVE 04/04/2023 10:59 AM CLIENT REPRESENTATIVE Cinda Henson M.D. LAB BLOOD NON ADD-ON Performing Organization Address City/[facility] Co de Phone Number [facility] [address] [place] [address] [facility] [address] [place] [address] [place] [address] * (ABNORMAL) Vitamin B6 Profile (PLP and PA) (04/04/2023 8:27 AM CLIENT REPRESENTATIVE) Pyridoxal 5-Phosphate (PLP), P <2(L) 5 - 50 mcg/L 04/06/2023 2:12 PM CLIENT REPRESENTATIVE [facility] Comment: ----ADDITIONAL INFORMATION---- This test was developed and its performance characteristics determined by [facility] in a manner consistent with CLIA requirements. This test has not been cleared or approved by the U.S. Food and Drug Administration. Pyridoxic Acid (PA), P <2(L) 3 - 30 mcg/L 04/06/2023 2:12 PM CLIENT REPRESENTATIVE [facility] Comment: ----ADDITIONAL INFORMATION---- This test was developed and its performance characteristics determined by [facility] in a manner consistent with CLIA requirements. This test has not been cleared or approved by the U.S. Food and Drug Administration. Blood (Blood, Venous) 04/04/2023 8:27 AM CLIENT REPRESENTATIVE 04/04/2023 3:34 PM CLIENT REPRESENTATIVE Cinda Henson M.D. LAB BLOOD NON ADD-ON Performing Organization Address City/[facility]/ZIP Co de Phone Number [facility] [address] [place] [address] [facility] [address] [place] [address] [place] [address] * (ABNORMAL) Magnesium (04/04/2023 8:16 AM CLIENT REPRESENTATIVE) Magnesium, S 1.5(L) 1.7 - 2.3 mg/dL 04/05/2023 8:01 AM CLIENT REPRESENTATIVE DT Blood 04/04/2023 8:16 AM CLIENT REPRESENTATIVE 04/05/2023 7:35 AM CLIENT REPRESENTATIVE Alberto Robledo M.D. LAB BLOOD ADD-ON Performing Organization Address [facility] Co de Phone Number [facility] [address] [place], [place] [address] [place] [address] [address] [place] [address] * Phosphorus Inorganic (04/04/2023 8:16 AM CLIENT REPRESENTATIVE) Phosphorus (Inorganic), S 3.0 2.5 - 4.5 mg/dL 04/05/2023 8:01 AM CLIENT REPRESENTATIVE DT Blood (Blood, Venous) 04/04/2023 8:16 AM CLIENT REPRESENTATIVE 04/05/2023 7:35 AM CLIENT REPRESENTATIVE Alberto Robledo M.D. 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 Otherwise, no significant change since comparison or acute intracranial findings. Narrative 04/03/2023 6:31 PM CLIENT REPRESENTATIVE EXAM: CT HEAD WITHOUT IV CONTRAST COMPARISON: [...] S * Patient Status (04/03/2023 4:44 PM CLIENT REPRESENTATIVE) FIO2 0.21 0.21=AIR 04/03/2023 4:53 PM CLIENT REPRESENTATIVE STMA Spont. breaths/min 22 04/03/2023 4:53 PM CLIENT REPRESENTATIVE STMA Blood 04/03/2023 4:44 PM CLIENT REPRESENTATIVE 04/03/2023 4:53 PM CLIENT REPRESENTATIVE Alberto Robledo M.D. LAB BLOOD NON AD D-ON [facility] [address] [place] [address], [facility] STMA [facility] [address] [place] [address] * (ABNORMAL) Blood Gas with Coox, Venous (04/03/2023 4:44 PM CLIENT REPRESENTATIVE) pO2, Venous, B 45 Not applicable mm Hg 04/03/2023 4:55 PM CLIENT REPRESENTATIVE STMA pCO2, Venous, B 49 41 - 51 mm Hg 04/03/2023 4:55 PM CLIENT REPRESENTATIVE STMA pH, Venous, B 7.44(H) 7.32 - 7.43 pH 024 4:55 PM CLIENT REPRESENTATIVE STMA Base Excess, Venous, B 9 Not applicable mmol/L 04/03/2023 4:55 PM CLIENT REPRESENTATIVE STMA HCO3, Venous, B 33 Not applicable mmol/L 04/03/2023 4:55 PM CLIENT REPRESENTATIVE STMA Hemoglobin, Venous, B 9.9(L) 11.6 - 15.0 g/dL 04/03/2023 4:55 PM CLIENT REPRESENTATIVE STMA O2Hb, Venous, B 72.5 Not applicable % 04/03/2023 4:55 PM CLIENT REPRESENTATIVE STMA COHb, Venous, B 1.6 <3.0 % 04/03/2023 4:55 PM CLIENT REPRESENTATIVE STMA MetHb, Venous, B 2.2(H) <1.5 % 04/03/2023 4:55 PM CLIENT REPRESENTATIVE STMA CtO2, Venous, B 10.1 Not Applicable vol % 04/03/2023 4:55 PM CLIENT REPRESENTATIVE STMA Sample Site, Venous, B Venipunct 04/03/2023 4:53 PM CLIENT REPRESENTATIVE STMA Blood (Blood, Venous) 04/03/2023 4:44 PM CLIENT REPRESENTATIVE 04/03/2023 4:53 PM CLIENT REPRESENTATIVE Alberto Robledo M.D. LAB BLOOD NON AD D-ON [facility] [address] [place] [address], [facility] [address] [place] [address] * (ABNORMAL) Basic Metabolic Panel (04/03/2023 4:43 PM CLIENT REPRESENTATIVE) Potassium, P 3.8 3.6 - 5.2 mmol/L 04/03/2023 5:24 PM CLIENT REPRESENTATIVE STMA Sodium, P 142 135 - 145 mmol/L 04/03/2023 5:24 PM CLIENT REPRESENTATIVE STMA Chloride, P 104 98 - 107 mmol/L 04/03/2023 5:24 PM CLIENT REPRESENTATIVE STMA Bicarbonate, P 31(H) 22 - 29 mmol/L 04/03/2023 5:24 PM CLIENT REPRESENTATIVE STMA Anion Gap, P 7 7 - 15 04/03/2023 5:24 PM CLIENT REPRESENTATIVE STMA BUN (Blood Urea Nitrogen), P 14 6 - 21 mg/dL 04/03/2023 5:24 PM CLIENT REPRESENTATIVE STMA Creatinine 1.02 0.59 - 1.04 mg/dL 04/03/2023 5:24 PM CLIENT REPRESENTATIVE STMA Estimated GFR (eGFR) 55(L) >=60 mL/min/BSA 04/03/2023 5:24 PM CLIENT REPRESENTATIVE ST[facility] Comment: Estimated GFR calculated using the 2020 CKD_EPI creatinine equation. Calcium, Total, P 11.4(H) 8.8 - 10.2 mg/dL 04/03/2023 5:24 PM CLIENT REPRESENTATIVE STMA Glucose, P 76 70 - 140 mg/dL 04/03/2023 5:24 PM CLIENT REPRESENTATIVE STMA Blood (Blood, Venous) 04/03/2023 4:43 PM CLIENT REPRESENTATIVE 04/03/2023 4:52 PM CLIENT REPRESENTATIVE Alberto Robledo M.D. LAB BLOOD ADD-ON [facility] [address] [place] [address], [facility] STMA [facility] [address] [place] [address] * (ABNORMAL) CBC with Differential, Blood (04/03/2023 4:43 PM CLIENT REPRESENTATIVE) Hemoglobin 9.1(L) 11.6 - 15.0 g/dL 04/03/2023 4:56 PM CLIENT REPRESENTATIVE STMA Hematocrit 28.8(L) 35.5 - 44.9 % 04/03/2023 4:56 PM CLIENT REPRESENTATIVE STMA Erythrocytes 2.96(L) 3.92 - 5.13 x10(12)/L 04/03/2023 4:56 PM CLIENT REPRESENTATIVE ST[facility] MCV 97.3 78.2 - 97.9 fL 04/03/2023 4:56 PM CLIENT REPRESENTATIVE STMA RBC Distrib Width 14.9 12.2 - 16.1 % 04/03/2023 4:56 PM CLIENT REPRESENTATIVE STMA Platelet Count 66(L) 157 - 371 x10(9)/L 04/03/2023 4:56 PM CLIENT REPRESENTATIVE ST[facility] Leukocytes 3.4 3.4 - 9.6 x10(9)/L 04/03/2023 4:56 PM CLIENT REPRESENTATIVE STMA Neutrophils 1.39(L) 1.56 - 6.45 x10(9)/L 04/03/2023 4:56 PM CLIENT REPRESENTATIVE DHPM Lymphocytes 1.63 0.95 - 3.07 x10(9)/L 04/03/2023 4:56 PM CLIENT REPRESENTATIVE STMA Monocytes 0.35 0.26 - 0.81 x10(9)/L 04/03/2023 4:56 PM CLIENT REPRESENTATIVE STMA Eosinophils <0.03 0.03 - 0.48 x10(9)/L 04/03/2023 4:56 PM CLIENT REPRESENTATIVE STMA Basophils <0.03 0.01 - 0.08 x10(9)/L 04/03/2023 4:56 PM CLIENT REPRESENTATIVE STMA Blood (Blood, Venous) 04/03/2023 4:43 PM CLIENT REPRESENTATIVE 04/03/2023 4:52 PM CLIENT REPRESENTATIVE Alberto Robledo M.D. LAB BLOOD ADD-ON [facility] [address] [place] [address], [facility] STMA [facility] [address] [place] [address] [facility] [address] [place] [address] * US Abdomen Complete (04/03/2023 10:30 AM CLIENT REPRESENTATIVE) Anatomical Region Laterality Modality Abdomen, Ultrasound RST LOS, Ultrasound ARZ LOS, Ultrasound FLA LOS N/A Ultrasound Impressions 04/03/2023 10:41 AM CLIENT REPRESENTATIVE 1. Normal liver. 2. Splenomegaly. Narrative 04/03/2023 10:41 AM CLIENT REPRESENTATIVE EXAM: US ABDOMEN COMPLETE HISTORY: 82-year-old female [...] Milli Faria M.D. IMG US PROCEDURES * (ABNORMAL) Basic Metabolic Panel (04/03/2023 5:45 AM CLIENT REPRESENTATIVE) Pathologist [facility] Potassium, S 3.5(L) 3.6 - 5.2 mmol/L 04/03/2023 7:02 AM CLIENT REPRESENTATIVE DTL Sodium, S 144 135 - 145 mmol/L 04/03/2023 7:02 AM CLIENT REPRESENTATIVE DTL Chloride, S 104 98 - 107 mmol/L 04/03/2023 7:02 AM CLIENT REPRESENTATIVE DTL Bicarbonate, S 30(H) 22 - 29 mmol/L 04/03/2023 7:02 AM CLIENT REPRESENTATIVE DTL Anion Gap 10 7 - 15 04/03/2023 7:02 AM CLIENT REPRESENTATIVE DTL BUN (Blood Urea Nitrogen), S 16 6 - 21 mg/dL 04/03/2023 7:02 AM CLIENT REPRESENTATIVE DTL Creatinine 1.13(H) 0.59 - 1.04 mg/dL 04/03/2023 7:02 AM CLIENT REPRESENTATIVE DTL Estimated GFR (eGFR) 49(L) >=60 mL/min/BSA 04/03/2023 7:02 AM CLIENT REPRESENTATIVE DTL Comment: Estimated GFR calculated using the 2020 CKD_EPI creatinine equation. Calcium, Total, S 11.7(H) 8.8 - 10.2 mg/dL 04/03/2023 7:02 AM CLIENT REPRESENTATIVE DTL Glucose, S 78 70 - 140 mg/dL 04/03/2023 7:02 AM CLIENT REPRESENTATIVE DTL Blood (Blood, Venous) 04/03/2023 5:45 AM CLIENT REPRESENTATIVE 04/03/2023 6:37 AM CLIENT REPRESENTATIVE Milli Faria M.D. LAB BLOOD ADD-ON [facility] [address] [place], [place] [address] [place] [address] 200 [place] [address] * (ABNORMAL) Phosphorus Inorganic (04/03/2023 5:45 AM CLIENT REPRESENTATIVE) Phosphorus (Inorganic), S 1.9(L) 2.5 - 4.5 mg/dL 04/03/2023 7:02 AM CLIENT REPRESENTATIVE DTL Blood (Blood, Venous) 04/03/2023 5:45 AM CLIENT REPRESENTATIVE 04/03/2023 6:37 AM CLIENT REPRESENTATIVE Milli Faria M.D. LAB BLOOD ADD-ON [facility] [address] [place], [place] [address] [place] [address] 200 [place] [address] * Magnesium (04/03/2023 5:45 AM CLIENT REPRESENTATIVE) Pathologist [facility] Magnesium, S 2.2 1.7 - 2.3 mg/dL 04/03/2023 7:02 AM CLIENT REPRESENTATIVE DTL Blood (Blood, Venous) 04/03/2023 5:45 AM CLIENT REPRESENTATIVE 04/03/2023 6:37 AM CLIENT REPRESENTATIVE Milli Faria M.D. LAB BLOOD ADD-ON [facility] [address] [place], [place] [id number] [place] [address] 200 [place] [address] * (ABNORMAL) CBC with Differential, Blood (04/03/2023 5:45 AM CLIENT REPRESENTATIVE) Hemoglobin 9.9(L) 11.6 - 15.0 g/dL 04/03/2023 6:30 AM CLIENT REPRESENTATIVE DTL Hematocrit 30.5(L) 35.5 - 44.9 % 04/03/2023 6:30 AM CLIENT REPRESENTATIVE DTL Erythrocytes 3.13(L) 3.92 - 5.13 x10(12)/L 04/03/2023 6:30 AM CLIENT REPRESENTATIVE DTL MCV 97.4 78.2 - 97.9 fL 04/03/2023 6:30 AM CLIENT REPRESENTATIVE DTL RBC Distrib Width 14.8 12.2 - 16.1 % 04/03/2023 6:30 AM CLIENT REPRESENTATIVE DTL Platelet Count 76(L) 157 - 371 x10(9)/L 04/03/2023 6:30 AM CLIENT REPRESENTATIVE DTL Leukocytes 3.6 3.4 - 9.6 x10(9)/L 04/03/2023 6:30 AM CLIENT REPRESENTATIVE DTL Neutrophils 1.49(L) 1.56 - 6.45 x10(9)/L 04/03/2023 6:30 AM CLIENT REPRESENTATIVE [facility] Lymphocytes 1.69 0.95 - 3.07 x10(9)/L 04/03/2023 6:30 AM CLIENT REPRESENTATIVE DTL Monocytes 0.37 0.26 - 0.81 x10(9)/L 04/03/2023 6:30 AM CLIENT REPRESENTATIVE DTL Eosinophils <0.03 0.03 - 0.48 x10(9)/L 04/03/2023 6:30 AM CLIENT REPRESENTATIVE DTL Basophils <0.03 0.01 - 0.08 x10(9)/L 04/03/2023 6:30 AM CLIENT REPRESENTATIVE DTL Blood (Blood, Venous) 04/03/2023 5:45 AM CLIENT REPRESENTATIVE 04/03/2023 6:21 AM CLIENT REPRESENTATIVE Milli Faria M.D. LAB BLOOD ADD-ON [facility] [address] [place] [address], [facility] DTL [facility] [address] [place] [address] [facility] [address] [place] [address] * M-protein Isotype, Mass-Fix Matrix-Assisted Laser Desorption/Ionization [id number] Mass Spectrometry, Random, Urine (04/02/2023 4:19 PM CLIENT REPRESENTATIVE) Flag M-protein Isotype MS, Random, U Negative Negative 04/06/2023 10:34 AM CLIENT REPRESENTATIVE SDSC M-protein Isotype MS, Random, U No monoclonal protein detected. 04/06/2023 10:34 AM CLIENT REPRESENTATIVE SDSC Comment: ----ADDITIONAL INFORMATION---- The submitted sample was assayed by five separate immunopurifications for IgG, IgA, IgM, kappa and lambda. ??The result reflects the findings of either no monoclonal protein detected or those monoclonal immunoglobulins that were detected. This test was developed and its performance characteristics determined by [facility] in a manner consistent with CLIA requirements. This test has not been cleared or approved by the U.S. Food and Drug Administration. Urine 04/02/2023 4:19 PM CLIENT REPRESENTATIVE 04/03/2023 6:58 AM CLIENT REPRESENTATIVE Milli Faria M.D. LAB URINE ORDERAB [facility] [address] [place] [address] [facility] [address] [place] [address] [place] [address] * (ABNORMAL) Electrophoresis, Protein, Random, Urine (04/02/2023 4:19 PM CLIENT REPRESENTATIVE) Protein, Total, Random, U 19 mg/dL 04/02/2023 6:07 PM CLIENT REPRESENTATIVE DTL Creatinine, Random, U 57 16 - 326 mg/dL 04/02/2023 6:07 PM CLIENT REPRESENTATIVE DTL Protein/Creati nine Ratio 0.33(H) <0.18 mg/mg 04/02/2023 6:07 PM CLIENT REPRESENTATIVE DTL Albumin, mg/dL 10.3 mg/dL 04/05/2023 8:20 AM CLIENT REPRESENTATIVE SDSC Alpha-1 globulin, mg/dL 1.0 mg/dL 04/05/2023 8:20 AM CLIENT REPRESENTATIVE SDSC Alpha-2 globulin, mg/dL 2.3 mg/dL 04/05/2023 8:20 AM CLIENT REPRESENTATIVE SDSC Beta globulin, mg/dL 2.9 mg/dL 04/05/2023 8:20 AM CLIENT REPRESENTATIVE SDSC Gamma globulin, mg/dL 2.9 mg/dL 04/05/2023 8:20 AM CLIENT REPRESENTATIVE SDSC A/G Ratio 1.15 04/05/2023 8:20 AM CLIENT REPRESENTATIVE SDS Impression Small abnormality in gamma fraction. See Isotype. 04/05/2023 8:20 AM CLIENT REPRESENTATIVE SDS Urine (Urine, Catheter) 04/02/2023 4:19 PM CLIENT REPRESENTATIVE 04/03/2023 6:58 AM CLIENT REPRESENTATIVE Milli Faria M.D. LAB URINE ORDERAB LES Performing Organization Address City/[facility]/ZIP Co de Phone Number [facility] [address] [place] [address] [facility] [address] [place] [address] [facility] [address] [place] [address] [place] [address] * (ABNORMAL) M-protein Isotype MALDI-TOF MS, Serum (04/02/2023 4:14 PM CLIENT REPRESENTATIVE) Flag, M-protein Isotype Positive(A) Negative 04/04/2023 12:05 PM CLIENT REPRESENTATIVE SDS M-protein Isotype MALDI-TOF MS IgM kappa, small monoclonal. ~Suggest repeat testing in 6-12 months if clinically indicated. 04/04/2023 12:05 PM CLIENT REPRESENTATIVE [facility] Comment: ----ADDITIONAL INFORMATION---- The submitted sample was assayed by five separate immunopurifications for IgG, IgA, IgM, kappa and lambda. ??The result reflects the findings of either no monoclonal protein detected or those monoclonal immunoglobulins that were detected. This test was developed and its performance characteristics determined by [facility] in a manner consistent with CLIA requirements. This test has not been cleared or approved by the U.S. Food and Drug Administration. Blood 04/02/2023 4:14 PM CLIENT REPRESENTATIVE 04/02/2023 6:12 PM CLIENT REPRESENTATIVE Milli Faria M.D. LAB BLOOD ADD-ON Performing Organization Address City/[facility]/ZIP Co de Phone Number [facility] [address] [place] [address] [facility] [address] [place] [address] [place] [address] * Phosphorus Inorganic (04/02/2023 4:14 PM CLIENT REPRESENTATIVE) Phosphorus (Inorganic), S 2.8 2.5 - 4.5 mg/dL 04/02/2023 5:32 PM CLIENT REPRESENTATIVE DTL Blood (Blood, Venous) 04/02/2023 4:14 PM CLIENT REPRESENTATIVE 04/02/2023 4:57 PM CLIENT REPRESENTATIVE Milli Faria M.D. LAB BLOOD ADD-ON Performing Organization Address City/[facility]/ZIP Co de Phone Number [facility] [address] [place] [address], [place] [facility] [address] [place] [address] * HCV Ab Scrn w/Reflex to HCV PCR, Serum (04/02/2023 4:14 PM CLIENT REPRESENTATIVE) Pathologist [facility] HCV Ab Screen, S Negative Negative 04/02/2023 10:19 PM CLIENT REPRESENTATIVE [facility] Comment:[id number] rat io is <1.00. Blood (Blood, Venous) 04/02/2023 4:14 PM CLIENT REPRESENTATIVE 04/02/2023 6:06 PM CLIENT REPRESENTATIVE Milli Faria M.D. LAB MICROBIOLOGY - BLOOD ORDERABLES Performing Organization Address City/[facility] Co de Phone Number [facility] [address] [place] [address] [facility] [address] [place] [address] * HIV-1/-2 Ag and Ab Screen, Plasma (04/02/2023 4:14 PM CLIENT REPRESENTATIVE) Pathologist [facility] HIV-1/-2 Ag and Ab Screen, P Negative Negative 04/02/2023 8:50 PM CLIENT REPRESENTATIVE [facility] Comment: Negative result does not rule out HIV infection. If exposure to HIV infection occurred <14 days ago, contact the laboratory to request addition of HIV-1/HIV-2 RNA detection, Plasma (HIP12). Blood (Blood, Venous) 04/02/2023 4:14 PM CLIENT REPRESENTATIVE 04/02/2023 6:06 PM CLIENT REPRESENTATIVE Milli Faria M.D. LAB MICROBIOLOGY - BLOOD ORDERABLES Performing Organization Address [facility] Co de Phone Number [facility] [address] [place] [address] [facility] [address] [place] [address] * Histoplasma and Blastomyces Antigen, Enzyme Immunoassay, Serum (04/02/2023 4:14 PM CLIENT REPRESENTATIVE) [facility] Histoplasma/Blasto myces Ag Result Not Detected Not Detected 04/03/2023 10:08 AM CLIENT REPRESENTATIVE [facility] Comment: No antigen from Histoplasma or Blastomyces detected. ??False negative results may occur depending on extent of disease, and/or site of infection. ??Repeat testing on a new specimen if clinically indicated. ?? Histoplasma/Blasto myces Ag Value Not Detected ng/mL 04/03/2023 10:08 AM CLIENT REPRESENTATIVE [facility] Comment: ----ADDITIONAL INFORMATION---- This test was developed and its performance characteristics determined by [facility] in a manner consistent with CLIA requirements. This test has not been cleared or approved by the U.S. Food and Drug Administration. Blood (Blood, Venous) 04/02/2023 4:14 PM CLIENT REPRESENTATIVE 04/02/2023 7:42 PM CLIENT REPRESENTATIVE Milli Faria M.D. LAB MICROBIOLOGY - BLOOD ORDERABLES Performing Organization Address [facility] Co de Phone Number [facility] [address] [place] [address] [place] [facility] [place] [address] * (ABNORMAL) Electrophoresis, Protein (04/02/2023 4:14 PM CLIENT REPRESENTATIVE) [facility] Total Protein, S 6.4 6.3 - 7.9 g/dL 04/02/2023 6:31 PM CLIENT REPRESENTATIVE SDSC Albumin 3.3(L) 3.4 - 4.7 g/dL 04/02/2023 9:19 PM CLIENT REPRESENTATIVE SDSC Alpha-1 Globulin 0.3 0.1 - 0.3 g/dL 04/02/2023 9:19 PM CLIENT REPRESENTATIVE SDSC Alpha-2 Globulin 0.7 0.6 - 1.0 g/dL 04/02/2023 9:19 PM CLIENT REPRESENTATIVE SDSC Beta-Globulin 0.8 0.7 - 1.2 g/dL 04/02/2023 9:19 PM CLIENT REPRESENTATIVE SDSC Gamma-Globulin 1.3 0.6 - 1.6 g/dL 04/02/2023 9:19 PM CLIENT REPRESENTATIVE SDSC A/G Ratio 1.06 04/02/2023 9:19 PM CLIENT REPRESENTATIVE SDSC Impression Small abnormality in gamma fraction. 04/02/2023 9:19 PM CLIENT REPRESENTATIVE SDSC Blood (Blood, Venous) 04/02/2023 4:14 PM CLIENT REPRESENTATIVE 04/02/2023 6:12 PM CLIENT REPRESENTATIVE Milli Faria M.D. LAB BLOOD ADD-ON [facility] [address] [place] [address] [facility] [address] [place] [address] [facility] [address] [place] [address] [place] [address] * Reticulocytes (04/02/2023 4:14 PM CLIENT REPRESENTATIVE) Reticulocytes, B 2.08 0.60 - 2.71 % 04/02/2023 4:46 PM CLIENT REPRESENTATIVE DTL Absolute Reticulocyte 69.3 30.4 - 110.9 x10(9)/L 04/02/2023 4:46 PM CLIENT REPRESENTATIVE DTL Blood (Blood, Venous) 04/02/2023 4:14 PM CLIENT REPRESENTATIVE 04/02/2023 4:39 PM CLIENT REPRESENTATIVE Milli Faria M.D. LAB BLOOD ADD-ON [facility] [address] [place] [address], [facility] DTL [facility] [address] [place] [address] * (ABNORMAL) SPSMA Result (04/02/2023 4:14 PM CLIENT REPRESENTATIVE) Pathologist [facility] Neutrophilic Segs and Bands 49(L) 50 - 75 % 04/02/2023 8:32 PM CLIENT REPRESENTATIVE [facility] Lymphocytes 36 18 - 42 % 04/02/2023 8:32 PM CLIENT REPRESENTATIVE [facility] Monocytes 14(H) 2 - 11 % 04/02/2023 8:32 PM CLIENT REPRESENTATIVE [facility] Basophils 1 0 - 2 % 04/02/2023 8:32 PM CLIENT REPRESENTATIVE [facility] Interpretation See Comment 8:32 PM CLIENT REPRESENTATIVE [facility] Comment:No schistocytes are seen. No platelet clumping. Reviewed by: Krish 04/02/2023 8:32 PM CLIENT REPRESENTATIVE DH[facility] Blood (Blood, Venous) 04/02/2023 4:14 PM CLIENT REPRESENTATIVE 04/02/2023 4:39 PM CLIENT REPRESENTATIVE Milil Faria M.D. LAB BLOOD ADD-ON [facility] [address] [place] [address], [facility] [address] [place] [address] * 25-Hydroxyvitamin D2 and D3 (04/02/2023 4:14 PM CLIENT REPRESENTATIVE) [facility] 25-Hydroxy D2 <4.0 ng/mL 04/04/2023 8:46 AM CLIENT REPRESENTATIVE [facility] 25-Hydroxy D3 69 ng/mL 04/04/2023 8:46 AM CLIENT REPRESENTATIVE [facility] 25-Hydroxy D Total 69 ng/mL 2023 8:46 AM CLIENT REPRESENTATIVE [facility] Comment: Interpretation: 51-80 ng/mL (increased risk of hypercalciuria) ----REFERENCE VALUE---- 25-HYDROXY D TOTAL (D2+D3) Optimum levels in the healthy population are 20-50, patients with bone disease may benefit from higher levels within this range. ----ADDITIONAL INFORMATION---- This test was developed and its performance characteristics determined by [facility] in a manner consistent with CLIA requirements. This test has not been cleared or approved by the U.S. Food and Drug Administration. Blood (Blood, Venous) 04/02/2023 4:14 PM CLIENT REPRESENTATIVE 04/03/2023 7:21 AM CLIENT REPRESENTATIVE Milli Faria M.D. LAB BLOOD ADD-ON [facility] [address] [place] [address] [facility] [address] [place] [address] [place] [address] * (ABNORMAL) Magnesium (04/02/2023 4:14 PM CLIENT REPRESENTATIVE) Pathologist [facility] Magnesium, S 1.6(L) 1.7 - 2.3 mg/dL 04/02/2023 5:32 PM CLIENT REPRESENTATIVE DTL Blood (Blood, Venous) 04/02/2023 4:14 PM CLIENT REPRESENTATIVE 04/02/2023 4:57 PM CLIENT REPRESENTATIVE Milli Faria M.D. LAB BLOOD ADD-ON Performing Organization Address [facility] Co de Phone Number [facility] [address] [facility] [address] [place] [address] * (ABNORMAL) Comprehensive Metabolic Panel (04/02/2023 4:14 PM CLIENT REPRESENTATIVE) Pathologist [facility] Potassium, S 3.4(L) 3.6 - 5.2 mmol/L 04/02/2023 5:32 PM CLIENT REPRESENTATIVE DTL Sodium, S 141 135 - 145 mmol/L 04/02/2023 5:32 PM CLIENT REPRESENTATIVE DTL Chloride, S 99 98 - 107 mmol/L 04/02/2023 5:32 PM CLIENT REPRESENTATIVE DTL Bicarbonate, S 30(H) 22 - 29 mmol/L 04/02/2023 5:32 PM CLIENT REPRESENTATIVE DTL Anion Gap 12 7 - 15 04/02/2023 5:32 PM CLIENT REPRESENTATIVE DTL BUN (Blood Urea Nitrogen), S 18 6 - 21 mg/dL 04/02/2023 5:32 PM CLIENT REPRESENTATIVE DTL Creatinine 1.12(H) 0.59 - 1.04 mg/dL 04/02/2023 5:32 PM CLIENT REPRESENTATIVE DTL Estimated GFR (eGFR) 49(L) >=60 mL/min/BS A 04/02/2023 5:32 PM CLIENT REPRESENTATIVE DTL Comment: Estimated GFR calculated using the 2020 CKD_EPI creatinine equation. Calcium, Total, S 12.3(H) 8.8 - 10.2 mg/dL 04/02/2023 5:37 PM CLIENT REPRESENTATIVE DTL Glucose, S 91 70 - 140 mg/dL 04/02/2023 5:32 PM CLIENT REPRESENTATIVE DTL Protein, Total, S 6.2(L) 6.3 - 7.9 g/dL 04/02/2023 5:32 PM CLIENT REPRESENTATIVE DTL Albumin, S 3.6 3.5 - 5.0 g/dL 04/02/2023 5:32 PM CLIENT REPRESENTATIVE DTL Aspartate Aminotransferase (AST), S 24 8 - 43 U/L 04/02/2023 5:32 PM CLIENT REPRESENTATIVE DTL Alkaline Phosphatase, S 105(H) 35 - 104 U/L 04/02/2023 5:32 PM CLIENT REPRESENTATIVE DTL Alanine Aminotransferase (ALT), S 15 7 - 45 U/L 04/02/2023 5:32 PM CLIENT REPRESENTATIVE DTL Bilirubin, Total, S 0.5 0.0 - 1.2 mg/dL 04/02/2023 5:32 PM CLIENT REPRESENTATIVE DTL Blood (Blood, Venous) 04/02/2023 4:14 PM CLIENT REPRESENTATIVE 04/02/2023 4:57 PM CLIENT REPRESENTATIVE Milli Faria M.D. LAB BLOOD ADD-ON [facility] [address] [place] [address], [facility] [address] [place] [address] * (ABNORMAL) Parathyroid Hormone (PTH) (04/02/2023 4:14 PM CLIENT REPRESENTATIVE) Parathyroid Hormone (PTH), S <6.0(L) 15 - 65 pg/mL 04/02/2023 5:32 PM CLIENT REPRESENTATIVE DTL Blood (Blood, Venous) 04/02/2023 4:14 PM CLIENT REPRESENTATIVE 04/02/2023 4:57 PM CLIENT REPRESENTATIVE Milli Faria M.D. LAB BLOOD ADD-ON Performing Organization Address [facility] de Phone Number [facility] [address] [place] [address], [facility] DTL [facility] [address] [place] [address] * ECG 12 Lead (04/02/2023 4:09 PM CLIENT REPRESENTATIVE) Ventricular Rate ECG/Min 73 BPM MUSE W[place] Interval 160 ms MUSE QRSD Interval 94 ms MUSE QT Interval 480 ms MUSE QTC Interval 528 ms MUSE P [place] 55 degrees MUSE R [place] -18 degrees MUSE T Wave [place] -57 degrees MUSE 04/02/2023 4:09 PM CLIENT REPRESENTATIVE 04/02/2023 4:11 PM CLIENT REPRESENTATIVE Impressions MUSE - 04/02/2023 4:11 PM CLIENT REPRESENTATIVE Normal sinus rhythm Minimal voltage criteria for LVH, may be normal variant Nonspecific ST and T wave abnormality Prolonged QT When compared with ECG of 20-JAN-2022 12:27, QT has lengthened Reviewed by Diaz Whitney III, CRAT Narrative Procedure Note Ariel Andino M.D., Ph.D. - 04/02/2023 IMPRESSION: Normal sinus rhythm Minimal voltage criteria for LVH, may be normal variant Nonspecific ST and T wave abnormality Prolonged QT When compared with ECG of 20-JAN-2022 12:27, QT has lengthened Reviewed by Diaz Whitney III, CRAT Milli Faria M.D. ECG ORDERABLES Performing Organization Address [facility] Co de Phone Number MUSE NA * (ABNORMAL) Troponin T, 2h/6h, 5th Gen (04/02/2023 12:19 PM CLIENT REPRESENTATIVE) Troponin T, 2 hr, 5th gen 16(H) <=10 ng/L 04/02/2023 12:41 PM CLIENT REPRESENTATIVE STMA 2H Delta 0 ng/L 04/02/2023 12:41 PM CLIENT REPRESENTATIVE STMA 2H Delta Interp Not Changing 04/02/2023 12:41 PM CLIENT REPRESENTATIVE STMA Troponin T, 6 hr, 5th gen CANCELED ng/L 04/02/2023 12:41 PM CLIENT REPRESENTATIVE [facility] Comment:Result canceled by t he ancillary. 6H Delta CANCELED ng/L 04/02/2023 12:41 PM CLIENT REPRESENTATIVE [facility] Comment:Result canceled by t he ancillary. 6H Delta % CANCELED % 04/02/2023 12:41 PM CLIENT REPRESENTATIVE [facility] Comment:Result canceled by t he ancillary. Blood (Blood, Venous) 04/02/2023 12:19 PM CLIENT REPRESENTATIVE 04/02/2023 12:25 PM CLIENT REPRESENTATIVE Narrative [facility] - 04/02/2023 12:41 PM CLIENT REPRESENTATIVE Specimen Information: Specimen ID: [id number] Specimen Type: Blood Specimen Collection Start Date: 04/02/2023 12:19 PM Specimen Received Date: 04/02/2023 12:25 PM Specimen ID: [id number] Specimen Type: Blood Sean Jansen M.D. LAB BLOOD TROPONIN [facility] [address] [place] [address] * (ABNORMAL) Dipstick, POCT, Urine (04/02/2023 11:14 AM CLIENT REPRESENTATIVE) Pathologist [facility] Glucose, POCT, U Negative Negative mg/dL 04/02/2023 11:15 AM CLIENT REPRESENTATIVE PCED Ketone, POCT, U Trace(A) Negative mg/dL 04/02/2023 11:15 AM CLIENT REPRESENTATIVE PCED Specific [place], POCT, U 1.015 1.005 - 1.030 04/02/2023 11:15 AM CLIENT REPRESENTATIVE PCED Blood, POCT, U Trace(A) Negative 04/02/2023 11:15 AM CLIENT REPRESENTATIVE [facility] pH, POCT, Urine 7.0 5.0 - 8.0 04/02/2023 11:15 AM CLIENT REPRESENTATIVE [facility] Protein, POCT, U Negative Negative mg/dL 04/02/2023 11:15 AM CLIENT REPRESENTATIVE PC[facility] Nitrites, POCT, U Negative Negative 04/02/2023 11:15 AM CLIENT REPRESENTATIVE PCED Leukocytes, POCT, U Negative Negative 04/02/2023 11:15 AM CLIENT REPRESENTATIVE PCED Urine 04/02/2023 11:1 4 AM CLIENT REPRESENTATIVE 04/02/2023 11:15 AM CLIENT REPRESENTATIVE Unknown Provider LAB POCT ORDERABLES - DEVICE Performing Organization Address City/[facility]/ZIP Co de Phone Number POC [facility] [address] [place] [address], [facility] PCED [facility]OC [address] [place] [address] * Influenza A, B, RSV, PCR, Rapid (04/02/2023 10:56 AM CLIENT REPRESENTATIVE) Influenza A, PCR, Rapid, V Negative Negative 04/02/2023 11:24 AM CLIENT REPRESENTATIVE [facility] Influenza B, PCR, Rapid, V Negative Negative 04/02/2023 11:24 AM CLIENT REPRESENTATIVE [facility] Resp Synctial Virus, PCR, Rapid Negative Negative 04/02/2023 11:24 AM CLIENT REPRESENTATIVE [facility] Specimen Source Swab, Nasopharynx 04/02/2023 11:24 AM CLIENT REPRESENTATIVE [facility] Swab (Nasopharynx) 04/02/2023 10:56 AM CLIENT REPRESENTATIVE 04/02/2023 11:00 AM CLIENT REPRESENTATIVE Sean Jansen M.D. LAB MICROBIOLOGY - G ENERAL ORDERABLES [facility] [address] [place] [address], [facility] STMA [facility] [address] [place] [address] * SARS Coronavirus 2, PCR Rapid Symptomatic (04/02/2023 10:56 AM CLIENT REPRESENTATIVE) SARS CoV-2, PCR, Rapid, V Undetected Undetected 04/02/2023 11:24 AM CLIENT REPRESENTATIVE [facility] Comment: ----ADDITIONAL INFORMATION---- This RT-PCR test was performed using the Sherry SARS-CoV-2 and Influenza A/B Reagent assay from [employer], which has received Emergency Use Authorization(EUA) by the U.S. Food and Drug Administration. Fact sheets for this Emergency Use Authorization (EUA) assay can be found at the following links: For Healthcare Providers: https://www.fda.gov/media/915544/download For Patients: https://www.fda.gov/media/942875/download SARS Coronavirus 2, Rapid, Source Swab, Nasopharynx 04/02/2023 11:00 AM CLIENT REPRESENTATIVE [facility] Swab (Nasopharynx) 04/02/2023 10:56 AM CLIENT REPRESENTATIVE 04/02/2023 11:00 AM CLIENT REPRESENTATIVE Sean Jansen M.D. LAB MICROBIOLOGY - G ENERAL ORDERABLES Performing Organization Address [facility] Co de Phone Number [facility] [address] [place] [address], [facility] STMA [facility] [address] [place] [address] * Dipstick, Urine (04/02/2023 10:54 AM CLIENT REPRESENTATIVE) Hemoglobin, QL, U Negative Negative 04/02/2023 11:54 AM CLIENT REPRESENTATIVE DTL Leukocyte Esterase, U Negative Negative 04/02/2023 11:54 AM CLIENT REPRESENTATIVE DTL Nitrite, U Negative Negative 04/02/2023 11:54 AM CLIENT REPRESENTATIVE DTL Ketone, U Negative Negative mg/dL 04/02/2023 11:54 AM CLIENT REPRESENTATIVE DTL Glucose, U Negative Negative mg/dL 04/02/2023 11:54 AM CLIENT REPRESENTATIVE DTL Urine 04/02/2023 10:5 4 AM CLIENT REPRESENTATIVE 04/02/2023 11:24 AM CLIENT REPRESENTATIVE Sean Jansen M.D. LAB URINE ORDERABLES Performing Organization Address [facility] Co de Phone Number [facility] [address] [place] [address], [facility] DTL [facility] [address] [place] [address] * pH, Urine (04/02/2023 10:54 AM CLIENT REPRESENTATIVE) pH, U 6.4 4.5 - 8.0 04/02/2023 11: 45 AM CLIENT REPRESENTATIVE DTL Urine 04/02/2023 10:5 4 AM CLIENT REPRESENTATIVE 04/02/2023 11:24 AM CLIENT REPRESENTATIVE Sean Jansen M.D. LAB URINE ORDERABLES Performing Organization Address City/[facility]/ZIP Co de Phone Number [facility] [address] [place] [address], [facility] [address] [place] [address] * Osmolality, Urine (04/02/2023 10:54 AM CLIENT REPRESENTATIVE) Osmolality, U 390 150 - 1150 mOsm/kg 04/02/2023 11:45 AM CLIENT REPRESENTATIVE DTL Urine 04/02/2023 10:5 4 AM CLIENT REPRESENTATIVE 04/02/2023 11:24 AM CLIENT REPRESENTATIVE Sean Jansen M.D. LAB URINE ORDERABLES Performing Organization Address [facility] Co de Phone Number [facility] [address] [place] [address], [facility] [address] [place] [address] * Microscopic Automated (04/02/2023 10:54 AM CLIENT REPRESENTATIVE) Microscopy Normal 04/02/2023 11:54 AM CLIENT REPRESENTATIVE DTL RBC <3 <3 /hpf 04/02/2023 11:54 AM CLIENT REPRESENTATIVE DTL WBC 1-3 /hpf 04/02/2023 11:54 AM CLIENT REPRESENTATIVE DTL Comment: ----REFERENCE VALUE---- <4 ??(Males) <11 (Females) Casts, Hyaline 11-20 /lpf 04/02/2023 11:54 AM CLIENT REPRESENTATIVE DTL Urine 04/02/2023 10:5 4 AM CLIENT REPRESENTATIVE 04/02/2023 11:24 AM CLIENT REPRESENTATIVE Sean Jansen M.D. LAB URINE ORDERABLES Performing Organization Address City/[facility]/ZIP Co de Phone Number [facility] [address] [place] [address], [facility] [address] [place] [address] * Bacterial Culture, Aerobic + Susceptibility, Urine (04/02/2023 10:54 AM CLIENT REPRESENTATIVE) Urine Culture No growth after 1 day of incubation. 04/03/2023 8:28 AM CLIENT REPRESENTATIVE DTL Urine (Urine, Straight Catheter) 04/02/2023 10:54 AM CLIENT REPRESENTATIVE 04/02/2023 1:27 PM CLIENT REPRESENTATIVE Comment:Specimen Source Site : Urine Sean Jansen M.D. LAB MICROBIOLOGY - G ENERAL ORDERABLES Performing Organization Address City/[facility]/ZIP Co de Phone Number [facility] [address] [place] [address], [facility] [address] [place] [address] * (ABNORMAL) Urinalysis, with Microscopic: Urine, Straight Catheter (04/02/2023 10:54 AM CLIENT REPRESENTATIVE) Source Urine, Urine, Straight Catheter 04/02/2023 11:23 AM CLIENT REPRESENTATIVE DTL Color, U Yellow 04/02/2023 11:23 AM CLIENT REPRESENTATIVE DTL Clarity, U Clear 04/02/2023 11:23 AM CLIENT REPRESENTATIVE DTL Protein, U 14 <26 mg/dL 04/02/2023 12:03 PM CLIENT REPRESENTATIVE DTL Protein/Osmola lity 0.36 <0.42 ratio 04/02/2023 12:03 PM CLIENT REPRESENTATIVE DTL Predicted 24 HR Protein, U 264(H) <229 mg/24 h 04/02/2023 12:03 PM CLIENT REPRESENTATIVE DTL Predicted Range 65-1068 mg/24 h 04/02/2023 12:03 PM CLIENT REPRESENTATIVE DTL Urine (Urine, Straight Catheter) 04/02/2023 10:54 AM CLIENT REPRESENTATIVE 04/02/2023 11:23 AM CLIENT REPRESENTATIVE Sean Jansen M.D. LAB URINE ORDERABLES Performing Organization Address City/[facility]/ZIP Co de Phone Number [facility] [address] [place] [address], [facility] DTL [facility] [place] [address] [place] [address] * Bacteria / Renae Culture, Blood #2 (04/02/2023 10:52 AM CLIENT REPRESENTATIVE) Bacteria/Padmini da Culture, Blood No growth after 5 days of incubation. 04/07/2023 12:02 PM CLIENT REPRESENTATIVE DTL Blood (Blood, Peripheral Draw) 04/02/2023 10:52 AM CLIENT REPRESENTATIVE 04/02/2023 11:03 AM CLIENT REPRESENTATIVE Comment:Specimen Source Site : Blood Narrative [facility] - 04/07/2023 12:02 PM CLIENT REPRESENTATIVE Received Bactec Peds bottle Sean Jansen M.D. LAB MICROBIOLOGY - G ENERAL ORDERABLES Performing Organization Address City/[facility]/ZIP Co de Phone Number [facility] [address] [place] [address], [facility] [address] [place] [address] * Lactate for Sepsis with Reflex (04/02/2023 10:45 AM CLIENT REPRESENTATIVE) Lactate, P 1.0 0.5 - 2.2 mmol/L 04/02/2023 11:29 AM CLIENT REPRESENTATIVE [facility] Blood (Blood, Venous) 04/02/2023 10:45 AM CLIENT REPRESENTATIVE 04/02/2023 10:57 AM CLIENT REPRESENTATIVE Sean Jansen M.D. LAB BLOOD NON ADD-ON [facility] [address] [place] [address], [facility] STMA [facility] [address] [place] [address] * Bacteria / Renae Culture, Blood #1 (04/02/2023 10:45 AM CLIENT REPRESENTATIVE) Bacteria/Padmini da Culture, Blood No growth after 5 days of incubation. 04/07/2023 12:02 PM CLIENT REPRESENTATIVE DTL Blood (Blood, Peripheral Draw) 04/02/2023 10:45 AM CLIENT REPRESENTATIVE 04/02/2023 11:04 AM CLIENT REPRESENTATIVE Comment:Specimen Source Site : Blood Sean Jansen M.D. LAB MICROBIOLOGY - G ENERAL ORDERABLES Performing Organization Address City/[facility]/ZIP Co de Phone Number [facility] [address] [place] [address] * (ABNORMAL) Troponin T, Baseline, 5th gen (04/02/2023 10:10 AM CLIENT REPRESENTATIVE) Troponin T, Baseline, 5th gen 16(H) <=10 ng/L 04/02/2023 10:36 AM CLIENT REPRESENTATIVE [facility] Blood (Blood, Venous) 04/02/2023 10:10 AM CLIENT REPRESENTATIVE 04/02/2023 10:18 AM CLIENT REPRESENTATIVE Sean Jansen M.D. LAB BLOOD TROPONIN Performing Organization Address City/[facility]/ZIP Co de Phone Number [facility] [address] [place] [address] * (ABNORMAL) S-TSH (Thyroid-Stimulating Hormone - Sensitive) (04/02/2023 10:10 AM CLIENT REPRESENTATIVE) TSH, Sensitive 4.7(H) 0.3 - 4.2 mIU/L 04/02/2023 11:09 AM CLIENT REPRESENTATIVE [facility] Blood (Blood, Venous) 04/02/2023 10:10 AM CLIENT REPRESENTATIVE 04/02/2023 10:33 AM CLIENT REPRESENTATIVE Sean Jansen M.D. LAB BLOOD ADD-ON [facility] [address] [place] [address] * (ABNORMAL) Basic Metabolic Panel (04/02/2023 10:10 AM CLIENT REPRESENTATIVE) Potassium, P 2.7(L) 3.6 - 5.2 mmol/L 04/02/2023 10:37 AM CLIENT REPRESENTATIVE [facility] Sodium, P 140 135 - 145 mmol/L 04/02/2023 10:37 AM CLIENT REPRESENTATIVE [facility] Chloride, P 95(L) 98 - 107 mmol/L 04/02/2023 10:37 AM CLIENT REPRESENTATIVE [facility] Bicarbonate, P 34(H) 22 - 29 mmol/L 04/02/2023 10:37 AM CLIENT REPRESENTATIVE [facility] Anion Gap, P 11 7 - 15 04/02/2023 10:37 AM CLIENT REPRESENTATIVE [facility] BUN (Blood Urea Nitrogen), P 19 6 - 21 mg/dL 04/02/2023 10:37 AM CLIENT REPRESENTATIVE [facility] Creatinine 1.14(H) 0.59 - 1.04 mg/dL 04/02/2023 10:37 AM CLIENT REPRESENTATIVE [facility] Estimated GFR (eGFR) 48(L) >=60 mL/min/BSA 04/02/2023 10:37 AM CLIENT REPRESENTATIVE [facility] Comment: Estimated GFR calculated using the 2020 CKD_EPI creatinine equation. Calcium, Total, P 13.7(CH) 8.8 - 10.2 mg/dL 04/02/2023 10:37 AM CLIENT REPRESENTATIVE [facility] Glucose, P 112 70 - 140 mg/dL 04/02/2023 10:37 AM CLIENT REPRESENTATIVE [facility] Blood (Blood, Venous) 04/02/2023 10:10 AM CLIENT REPRESENTATIVE 04/02/2023 10:18 AM CLIENT REPRESENTATIVE Sean Jansen M.D. LAB BLOOD ADD-ON [facility] [address] [place] [address], [facility] [address] [place] [address] * (ABNORMAL) CBC with Differential, Blood (04/02/2023 10:10 AM CLIENT REPRESENTATIVE) Hemoglobin 11.6 11.6 - 15.0 g/dL 04/02/2023 10:20 AM CLIENT REPRESENTATIVE [facility] Hematocrit 35.0(L) 35.5 - 44.9 % 04/02/2023 10:20 AM CLIENT REPRESENTATIVE [facility] Erythrocytes 3.69(L) 3.92 - 5.13 x10(12)/L 04/02/2023 10:20 AM CLIENT REPRESENTATIVE [facility] MCV 94.9 78.2 - 97.9 fL 04/02/2023 10:20 AM CLIENT REPRESENTATIVE [facility] RBC Distrib Width 14.4 12.2 - 16.1 % 04/02/2023 10:20 AM CLIENT REPRESENTATIVE [facility] Platelet Count 69(L) 157 - 371 x10(9)/L 04/02/2023 10:20 AM CLIENT REPRESENTATIVE [facility] Leukocytes 4.4 3.4 - 9.6 x10(9)/L 04/02/2023 10:20 AM CLIENT REPRESENTATIVE [facility] Neutrophils 2.21 1.56 - 6.45 x10(9)/L 04/02/2023 10:20 AM CLIENT REPRESENTATIVE [facility] Lymphocytes 1.68 0.95 - 3.07 x10(9)/L 04/02/2023 10:20 AM CLIENT REPRESENTATIVE [facility] Monocytes 0.48 0.26 - 0.81 x10(9)/L 04/02/2023 10:20 AM CLIENT REPRESENTATIVE [facility] Eosinophils <0.03 0.03 - 0.48 x10(9)/L 04/02/2023 10:20 AM CLIENT REPRESENTATIVE [facility] Basophils 0.03 0.01 - 0.08 x10(9)/L 04/02/2023 10:20 AM CLIENT REPRESENTATIVE [facility] Blood (Blood, Venous) 04/02/2023 10:10 AM CLIENT REPRESENTATIVE 04/02/2023 10:18 AM CLIENT REPRESENTATIVE Sean Jansen M.D. 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 Dehydration Encephalopathy Metabolic Hypercalcemia Hypokalemia Malnutrition Severe Protein-Calorie (HCC) Gastroesophageal Reflux Disease Without Esophagitis Anemia In Neoplastic Disease Thrombocytopenia (HCC) Parkinsonism Unspecified (HCC) Unspecified Dementia Unspecified Severity Without Behavioral Disturbance 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) Hypophosphatemia Anxiety Disorder Unspecified Malignant Neoplasm Of Breast Female Left (HCC) Hypertension Essential Primary Glaucoma Lentigo Elevated Creatinine Nausea And Vomiting Dysphagia documented in this encounter Admitting Diagnoses Diagnosis Weakness General Hypercalcemia Hypokalemia Lymphoma (HCC) documented in this encounter Administered Medications Inactive Administered Medications - up to 3 most recent administrations Medication Order MAR Action Action Date Dose Rate Site acetaminophen solution 650 mg (TYLENOL) 650 mg, oral, Every 4 hours PRN, mild pain or score 1-3 of 10, Starting on Sun04/18/23 at 0837 acetaminophen tablet 650 mg (TYLENOL) 650 mg, oral, Once, On Sun04/13/23 at 1600, For 1 dose, Administer 30 minutes prior to riTUXimab. Given 04/13/2023 4:15 PM CLIENT REPRESENTATIVE 650 mg acetaminophen tablet 650 mg (TYLENOL) 650 mg, oral, Every 4 hours PRN, infusion related reactions or temperature greater than 38 degrees Celsius, Starting on Sun04/13/23 at 1358, For 4 doses acetaminophen tablet 650 mg (TYLENOL) 650 mg, oral, Once, On Sun04/20/23 at 1200, For 1 dose, Administer 30 minutes prior to riTUXimab. Given 04/20/2023 12:07 PM CLIENT REPRESENTATIVE 650 mg acetaminophen tablet 650 mg (TYLENOL) 650 mg, oral, Every 4 hours PRN, infusion related reactions or temperature greater than 38 degrees Celsius, Starting on Sun04/20/23 at 1040, For 4 doses allopurinoL tablet 300 mg (ZYLOPRIM) 300 mg, oral, Daily, First dose on Sun04/12/23 at 1000 Given 04/12/2023 9:58 AM CLIENT REPRESENTATIVE 300 mg allopurinoL tablet 300 mg (ZYLOPRIM) 300 mg, gastric tube, Daily, First dose (after last modification) on Sun04/13/23 at 0900 Given 04/17/2023 9:49 AM CLIENT REPRESENTATIVE 300 mg Given 04/16/2023 9:45 AM CLIENT REPRESENTATIVE 300 mg Given 04/15/2023 8:05 AM CLIENT REPRESENTATIVE 300 mg allopurinoL tablet 300 mg (ZYLOPRIM) 300 mg, oral, Daily, First dose (after last modification) on Sun04/18/23 at 0900, For 4 doses Given 04/21/2023 8:42 AM CLIENT REPRESENTATIVE 300 mg Given 04/20/2023 9:39 AM CLIENT REPRESENTATIVE 300 mg Given 04/19/2023 9:23 AM CLIENT REPRESENTATIVE 300 mg brimonidine 0.2 % ophthalmic solution 1 drop (ALPHAGAN) 1 drop, both eyes, 3 times daily, First dose on Sun04/02/23 at 2100 Given 04/23/2023 8:08 AM CLIENT REPRESENTATIVE 1 drop Given 04/22/2023 9:23 PM CLIENT REPRESENTATIVE 1 drop Given 04/22/2023 2:48 PM CLIENT REPRESENTATIVE 1 drop buPROPion tablet 75 mg (WELLBUTRIN) 75 mg, gastric tube, 2 times daily with meals, First dose on Sun04/06/23 at 1730 Given 04/17/2023 6:43 PM CLIENT REPRESENTATIVE 75 mg Given 04/17/2023 9:49 AM CLIENT REPRESENTATIVE 75 mg Given 04/16/2023 5:28 PM CLIENT REPRESENTATIVE 75 mg buPROPion tablet 75 mg (WELLBUTRIN) 75 mg, oral, 2 times daily with meals, First dose (after last modification) on Sun04/18/23 at 1700 Given 04/23/2023 8:01 AM CLIENT REPRESENTATIVE 75 mg Given 04/22/2023 4:45 PM CLIENT REPRESENTATIVE 75 mg Given 04/22/2023 9:09 AM CLIENT REPRESENTATIVE 75 mg buPROPion XL 24 hr tablet 150 mg (WELLBUTRIN XL) 150 mg, oral, Daily, First dose on Sun04/03/23 at 0900, Swallow whole. Do NOT crush, chew, or split tablet. Given 04/05/2023 10:55 AM CLIENT REPRESENTATIVE 150 mg Given 04/04/2023 9:12 AM CLIENT REPRESENTATIVE 150 mg Given 04/03/2023 9:40 AM CLIENT REPRESENTATIVE 150 mg calcitonin injection 220 Units (MIACALCIN) 220 Units (rounded from 216 Units = 4 Units/kg ? 54 kg Dosing weight), subcutaneous, Every 12 hours scheduled, First dose on Sun04/12/23 at 2315, For 2 doses, Restriction Criteria (Pharmacy will review and approve if criteria met): Significant or progressive symptoms of hypercalcemia Given 04/13/2023 10:34 AM CLIENT REPRESENTATIVE 220 Units Right Lower Abdomen Given 04/13/2023 12:15 AM CLIENT REPRESENTATIVE 220 Units L eft Upper Abdomen diphenhydrAMINE injection 25 mg (BENADRYL) 25 mg, intravenous, Every 4 hours PRN, infusion related reactions. May repeat once if symptoms not relieved within 15 minutes of initial dose., Starting on Sun04/20/23 at 1040 diphenhydrAMINE injection 50 mg (BENADRYL) 50 mg, intravenous, Once, On Sun04/13/23 at 1600, For 1 dose, Administer 30 minutes prior to riTUXimab. Given 04/13/2023 4:15 PM CLIENT REPRESENTATIVE 50 mg aeegtlwgldOVJPJ-jtix-frqs-mag hydrox-simeth [id number] mg/30 mL suspension 15 mL (FIRST-MOUTHWASH BLM) 15 mL, swish & spit, 4 times daily PRN, mouth pain, Starting on Sun04/06/23 at 1604 Given 04/18/2023 12:25 PM CLIENT REPRESENTATIVE 15 mL dorzolamide-timoloL 22.3-6.8 mg/mL ophthalmic solution 1 drop (COSOPT) 1 drop, both eyes, 2 times daily, First dose on Sun04/02/23 at 2100 Given 04/23/2023 8:02 AM CLIENT REPRESENTATIVE 1 drop Given 04/22/2023 9:22 PM CLIENT REPRESENTATIVE 1 drop Given 04/22/2023 9:09 AM CLIENT REPRESENTATIVE 1 drop escitalopram tablet 20 mg (LEXAPRO) 20 mg, oral, Daily, First dose on Sun04/03/23 at 0900 Given 04/05/2023 10:55 AM CLIENT REPRESENTATIVE 20 mg Given 04/04/2023 9:11 AM CLIENT REPRESENTATIVE 20 mg Given 04/03/2023 9:40 AM CLIENT REPRESENTATIVE 20 mg escitalopram tablet 20 mg (LEXAPRO) 20 mg, gastric tube, Daily, First dose (after last modification) on Sun04/07/23 at 0900 Given 04/17/2023 9:49 AM CLIENT REPRESENTATIVE 20 mg Given 04/16/2023 9:45 AM CLIENT REPRESENTATIVE 20 mg Given 04/15/2023 8:04 AM CLIENT REPRESENTATIVE 20 mg escitalopram tablet 20 mg (LEXAPRO) 20 mg, oral, Daily, First dose (after last modification) on Sun04/18/23 at 0900 Given 04/23/2023 8:01 AM CLIENT REPRESENTATIVE 20 mg Given 04/22/2023 9:09 AM CLIENT REPRESENTATIVE 20 mg Given 04/21/2023 8:42 AM CLIENT REPRESENTATIVE [address] capsule 20 mg (NexIUM) 20 mg, gastric tube, Daily before breakfast, First dose on Sun04/17/23 at 0700, Either sprinkled on soft food or administered via feeding tube. lansoprazole suspension/solutab 15 mg daily was interchanged for esomeprazole capsule 20 mg daily. Do NOT crush or chew. Capsule may be opened and the contents taken without crushing or chewing. Given 04/17/2023 6:28 AM CLIENT REPRESENTATIVE [address] capsule 40 mg (NexIUM) 40 mg, gastric tube, Daily before breakfast, First dose on 04/07/23 at 0700, Either sprinkled on soft food or administered via feeding tube. lansoprazole suspension/solutab 30 mg daily was interchanged for esomeprazole capsule 40 mg daily. Do NOT crush or chew. Capsule may be opened and the contents taken without crushing or chewing. Given 04/12/2023 6:18 AM CLIENT REPRESENTATIVE 40 mg Given 04/11/2023 6:15 AM CLIENT REPRESENTATIVE 40 mg Given 04/10/2023 6:10 AM CLIENT REPRESENTATIVE 40 mg fludeoxyglucose F 18 injection INTERMEDIATE (FDG F-18) 4.5-16.5 millicurie, intravenous, Once, On Sun04/06/23 at 1215, For 1 dose, Imaging Protocol Orders Given 04/06/2023 11:32 AM CLIENT REPRESENTATIVE 15.28 millicuries furosemide injection 20 mg (LASIX) 20 mg, intravenous, Once, On Carina 04/12/23 at 1730, For 1 dose Given 04/12/2023 6:50 PM CLIENT REPRESENTATIVE 20 mg furosemide injection 20 mg (LASIX) 20 mg, intravenous, Once, On 04/14/23 at 1545, For 1 dose, Adults: Doses less than 120 mg: IV push over 20 mg/minute. Doses 120 mg or greater: IVPB at 4 mg/minute. Peds/Neonates: Doses less than 120 mg over 0.5 mg/kg/minute. Doses 120 mg or greater: IVPB at 4 mg/minute. Given 04/14/2023 3:33 PM CLIENT REPRESENTATIVE 20 mg gadobutrol injection 0.01-30 mL (GADAVIST) 0.01-30 mL, intravenous, Once in imaging, contrast, Starting on Carina 04/05/23 at 1247, For 1 dose, Imaging Protocol Orders, Dose per Radiant Medication Guidelines Intrathecal doses greater than 0.25 mL not recommended. Given 04/05/2023 12:47 PM CLIENT REPRESENTATIVE 6 mL gadobutrol injection 0.01-30 mL (GADAVIST) 0.01-30 mL, intravenous, Once in imaging, contrast, Starting on Sun04/06/23 at 1438, For 1 dose, Imaging Protocol Orders, Dose per Radiant Medication Guidelines Intrathecal doses greater than 0.25 mL not recommended. Given 04/06/2023 2:38 PM CLIENT REPRESENTATIVE 6 mL heparin (porcine) injection 5,000 Units 5,000 Units, subcutaneous, Every 8 hours scheduled, First dose on Sun04/02/23 at 2200 Given 04/23/2023 6:37 AM CLIENT REPRESENTATIVE 5,000 Units Right Lower Abdomen Given 04/22/2023 9:22 PM CLIENT REPRESENTATIVE 5,000 Units L eft Lower Abdomen Given 04/22/2023 2:59 PM CLIENT REPRESENTATIVE 5,000 Units L eft Upper Abdomen ketorolac 0.5 % ophthalmic solution 1 drop (ACULAR) 1 drop, both eyes, 2 times daily, First dose on Sun04/03/23 at 2100 Given 04/23/2023 8:05 AM CLIENT REPRESENTATIVE 1 drop Given 04/22/2023 9:23 PM CLIENT REPRESENTATIVE 1 drop Given 04/22/2023 9:09 AM CLIENT REPRESENTATIVE 1 drop Lactated Ringer's bolus 1,000 mL 1,000 mL, intravenous, at 500 mL/hr, Administer over 2 Hours, Once, On Sun04/02/23 at 1615, For 1 dose New Bag 04/02/2023 4:23 PM CLIENT REPRESENTATIVE 1,000 mL 500 mL/hr Lactated Ringer's bolus 1,000 mL 1,000 mL, intravenous, at 250 mL/hr, Administer over 4 Hours, Once, On Sun04/12/23 at 1445, For 1 dose New Bag 04/12/2023 2:51 PM CLIENT REPRESENTATIVE 1,000 mL 250 mL/hr Lactated Ringer's 250 mL/hr, intravenous, Continuous, Starting on Sun04/02/23 at 1900 New Bag 04/04/2023 5:04 AM CLIENT REPRESENTATIVE 250 mL/hr 250 mL/hr New Bag 04/04/2023 1:02 AM CLIENT REPRESENTATIVE 250 mL/hr 250 mL/hr New Bag 04/03/2023 3:53 PM CLIENT REPRESENTATIVE 250 mL/hr 250 mL/hr Lactated Ringer's 75 mL/hr, intravenous, Continuous, Starting on Sun04/05/23 at 1315 New Bag 04/06/2023 7:29 AM CLIENT REPRESENTATIVE 125 mL/hr 125 mL/hr New Bag 04/06/2023 5:28 AM CLIENT REPRESENTATIVE 125 mL/hr 125 mL/hr Rate/Dose Verify 04/05/2023 10:40 PM CLIENT REPRESENTATIVE 125 mL/hr 125 mL /hr Lactated Ringer's 75 mL/hr, intravenous, Continuous, Starting on Sun04/06/23 at 1515, For 24 hours Rate/Dose Verify 04/07/2023 11:07 AM CLIENT REPRESENTATIVE 75 mL/hr 75 mL/hr New Bag 04/07/2023 4:07 AM CLIENT REPRESENTATIVE 75 mL/hr 75 mL/hr New Bag 04/06/2023 2:56 PM CLIENT REPRESENTATIVE 75 mL/hr 75 mL/hr lansoprazole suspension 30 mg (PREVACID) 30 mg, gastric tube, Daily before breakfast, First dose on Sun04/18/23 at 0700 Given 04/18/2023 6:28 AM CLIENT REPRESENTATIVE 30 mg lansoprazole suspension 30 mg (PREVACID) 30 mg, oral, Daily before breakfast, First dose (after last modification) on Sun04/19/23 at 0700 Given 04/20/2023 6:32 AM CLIENT REPRESENTATIVE 30 mg Given 04/19/2023 6:17 AM CLIENT REPRESENTATIVE 30 mg loperamide capsule 2 mg (IMODIUM A-D) 2 mg, oral, 2 times daily, First dose on Sun04/09/23 at 2100 Given 04/12/2023 8:30 AM CLIENT REPRESENTATIVE 2 mg Given 04/11/2023 9:34 PM CLIENT REPRESENTATIVE 2 mg Given 04/11/2023 9:26 AM CLIENT REPRESENTATIVE 2 mg loratadine tablet 10 mg (CLARITIN) 10 mg, oral, Once, On Sun04/20/23 at 1200, For 1 dose, Administer 30 minutes prior to riTUXimab. Given 04/20/2023 12:08 PM CLIENT REPRESENTATIVE 10 mg magnesium sulfate in D5W IVPB 1 g 1 g, intravenous, at 100 mL/hr, Administer over 60 Minutes, Once, On Sun04/05/23 at 0900, For 1 dose, Over 1 hours. New Bag 04/05/2023 10:35 AM CLIENT REPRESENTATIVE 1 g 100 mL/hr magnesium sulfate in water IVPB 2 g 2 g, intravenous, at 25 mL/hr, Administer over 120 Minutes, Once, On Sun04/02/23 at 1845, For 1 dose, Over 2 hours. New Bag 04/02/2023 9:14 PM CLIENT REPRESENTATIVE 2 g 25 mL/hr magnesium sulfate in water IVPB 2 g 2 g, intravenous, at 25 mL/hr, Administer over 120 Minutes, Once, On Sun04/05/23 at 1330, For 1 dose, Over 1 hours. New Bag 04/05/2023 3:39 PM CLIENT REPRESENTATIVE 2 g 25 mL/hr melatonin tablet 5 mg 5 mg, oral, Bedtime PRN, sleep, Starting on Sun04/18/23 at 0837 Given 04/22/2023 9:26 PM CLIENT REPRESENTATIVE 5 mg Given 04/21/2023 9:04 PM CLIENT REPRESENTATIVE 5 mg Given 04/20/2023 9:07 PM CLIENT REPRESENTATIVE 5 mg meperidine (PF) injection 25 mg (DEMEROL) 25 mg, intravenous, Every 15 min PRN, Rigors. May repeat once (maximum total dose 50 mg)., Starting on Sun04/20/23 at 1040, For 2 doses, Restriction Criteria (Pharmacy will review and approve if criteria met): Prevention or treatment of drug-induced or epzgg-bbnfrmj-noumijk rigors bafkhruzyrjm-tbgz-QV-Ca-minerals 400 mcg (folic acid) tablet 1 tablet (THERAPEUTIC-M) 1 tablet, oral, Daily, First dose on Sun04/04/23 at 0900 Given 04/12/2023 8:30 AM CLIENT REPRESENTATIVE 1 tablet Given 04/11/2023 9:26 AM CLIENT REPRESENTATIVE 1 tablet Given 04/10/2023 8:30 AM CLIENT REPRESENTATIVE 1 tablet NaCl 0.9 % bolus 1,000 mL 1,000 mL, intravenous, at 1,000 mL/hr, Administer over 1 Hours, Once, On Sun04/02/23 at 1042, For 1 dose New Bag 04/02/2023 10:53 AM CLIENT REPRESENTATIVE 1,000 mL 1000 mL/hr NaCl 0.9% infusion 10-250 mL/hr, intravenous, As needed, Between Consecutive Piggyback Medications, Starting on Sun04/05/23 at 0929, Infuse at the same rate as the piggyback until tubing clears or up to a volume of 20 mL. Select for IV medication administration when no maintenance IV available or when IV medications are not compatible with maintenance fluid. NaCl 0.9% infusion 10-250 mL/hr, intravenous, As needed, Post Medications (Hazardous/Low Fluid Volume), Starting on Carina 04/05/23 at 0929, Infuse at the same rate as the medication until tubing cleared of medication, then discard. NaCl 0.9% infusion 100 mL/hr, intravenous, Continuous, Starting on Carina 04/12/23 at 1730, For 20 hours New Bag 04/13/2023 4:49 AM CLIENT REPRESENTATIVE 100 mL/hr 100 mL/hr Rate/Dose Verify 04/12/2023 7:48 PM CLIENT REPRESENTATIVE 100 mL/hr 100 mL/ hr New Bag 04/12/2023 6:47 PM CLIENT REPRESENTATIVE 100 mL/hr 100 mL/hr NaCl 0.9% infusion 100 mL/hr, intravenous, Continuous, Starting on Sun04/13/23 at 1430 New Bag 04/14/2023 4:25 AM CLIENT REPRESENTATIVE 100 mL/hr 100 mL/hr New Bag 04/13/2023 2:55 PM CLIENT REPRESENTATIVE 100 mL/hr 100 mL/hr nystatin 100,000 unit/gram powder 1 Application (NYSTOP) 1 Application, topical, 2 times daily PRN, If cutaneous invovlement of candidiasis albicans with ITD/IAD, Starting on Sun04/13/23 at 2100, If rash is present, apply to affected area around perirectal area or other involved skin folds twice daily. Removal old product, cleanse the skin, and apply powder in a thin, even layer, dusting off excess powder. Given 04/13/2023 8:55 PM CLIENT REPRESENTATIVE 1 Applicat ion OLANZapine tablet 2.5 mg (ZyPREXA) 2.5 mg, oral, Once as needed, nausea vomiting, Starting on 04/02/23 at 1649, For 1 dose Given 04/02/2023 5:00 PM CLIENT REPRESENTATIVE 2.5 mg ondansetron (PF) injection 4 mg (ZOFRAN) 4 mg, intravenous, Every 6 hours PRN, nausea, vomiting, Starting on 04/21/23 at 1136 ondansetron (PF) injection 8 mg (ZOFRAN) 8 mg, intravenous, Every 8 hours PRN, nausea, vomiting, Starting on Carina 04/12/23 at 1616 Given 04/13/2023 9:39 PM CLIENT REPRESENTATIVE 8 mg Given 04/13/2023 11:02 AM CLIENT REPRESENTATIVE 8 mg Given 04/12/2023 4:25 PM CLIENT REPRESENTATIVE 8 mg ondansetron ODT disintegrating tablet 4 mg (ZOFRAN-ODT) 4 mg, oral, Every 6 hours PRN, nausea, vomiting, Starting on 04/21/23 at 1136, When splitting ODT at bedside, handle with gloves and a pill splitter to prevent moisture contact. Given 04/21/2023 11:48 AM CLIENT REPRESENTATIVE 4 mg oxyBUTYnin tablet 5 mg (DITROPAN) 5 mg, oral, Once, On Sun04/02/23 at 1222, For 1 dose Given 04/02/2023 12:34 PM CLIENT REPRESENTATIVE [address] tablet 40 mg (PROTONIX) 40 mg, oral, Daily before dinner, First dose on Sun04/02/23 at 1615, pantoprazole 40 mg oral daily was interchanged for omeprazole 20 or 40 mg oral daily Swallow whole. Do NOT crush, chew, or split tablet. Given 04/06/2023 4:56 PM CLIENT REPRESENTATIVE 40 mg Given 04/05/2023 3:43 PM CLIENT REPRESENTATIVE 40 mg Given 04/04/2023 4:52 PM CLIENT REPRESENTATIVE [address] tablet 40 mg (PROTONIX) 40 mg, oral, Daily before breakfast, First dose on 04/21/23 at 0700, Swallow whole. Do NOT crush, chew, or split tablet. Given 04/23/2023 6:37 AM CLIENT REPRESENTATIVE 40 mg Given 04/22/2023 6:21 AM CLIENT REPRESENTATIVE 40 mg Given 04/21/2023 6:17 AM CLIENT REPRESENTATIVE 40 mg pantoprazole injection 40 mg (PROTONIX) 40 mg, intravenous, Every 24 hours scheduled, First dose on Sun04/13/23 at 0900, Administer IV push over 2 minutes. Add 10 mL NS to 40 mg vial for a final concentration of 4 mg/mL. Given 04/18/2023 10:15 AM CLIENT REPRESENTATIVE 40 mg Given 04/17/2023 9:50 AM CLIENT REPRESENTATIVE 40 mg Given 04/16/2023 9:45 AM CLIENT REPRESENTATIVE 40 mg polyethylene glycol powder packet 17 g (MIRALAX) 17 g, oral, Once, On Sun04/04/23 at 0715, For 1 dose, Ordered sequence of administration: polyethylene glycol, then bisacodyl until BM achieved. Avoid mixing with starch-based thickened liquids. Given 04/04/2023 9:15 AM CLIENT REPRESENTATIVE 17 g polyethylene glycol powder packet 17 g (MIRALAX) 17 g, gastric tube, Daily PRN, constipation, Starting on [place] 04/12/23 at 1707, Dissolve in 240 mLs (8 ounces) of water prior to giving. Avoid mixing with starch-based thickened liquids. Given 04/15/2023 8:13 AM CLIENT REPRESENTATIVE 17 g Given 04/14/2023 8:59 AM CLIENT REPRESENTATIVE 17 g polyethylene glycol powder packet 17 g (MIRALAX) 17 g, gastric tube, 2 times daily, First dose (after last modification) on Sun04/16/23 at 0900, Dissolve in 240 mLs (8 ounces) of water prior to giving. Avoid mixing with starch-based thickened liquids. Given 04/17/2023 7:51 PM CLIENT REPRESENTATIVE 17 g polyethylene glycol powder packet 17 g (MIRALAX) 17 g, oral, 2 times daily, First dose (after last modification) on Sun04/18/23 at 0900, Dissolve in 240 mLs (8 ounces) of water prior to giving. Avoid mixing with starch-based thickened liquids. Given 04/23/2023 8:02 AM CLIENT REPRESENTATIVE 17 g Given 04/20/2023 9:07 PM CLIENT REPRESENTATIVE 17 g potassium bicarb-citric acid disintegrating tablet 40 mEq (EFFER-K) 40 mEq, gastric tube, Once, On 04/14/23 at 1630, For 1 dose, Dissolve per computer technical support specialist recommendations. Do NOT chew or swallow tablet. Given 04/14/2023 4:42 PM CLIENT REPRESENTATIVE 40 mEq potassium bicarb-citric acid disintegrating tablet 40 mEq (EFFER-K) 40 mEq, gastric tube, Once, On 04/17/23 at 0415, For 1 dose, For K 3-3.4 mEq/L - give total of 40 mEq Give via gastric tube if available and patient unable to tolerate oral Dissolve per computer technical support specialist recommendations. Do NOT chew or swallow tablet., Monitor the following for replacement: Potassium, Replace Potassium per: Standard Schedule Given 04/17/2023 4:17 AM CLIENT REPRESENTATIVE 40 mEq potassium bicarb-citric acid disintegrating tablet 50 mEq (EFFER-K) 50 mEq, gastric tube, Once, On 04/07/23 at 0815, For 1 dose, Give via NG tube Dissolve per computer technical support specialist recommendations. Do NOT chew or swallow tablet., Monitor the following for replacement: Potassium, Replace Potassium per: Standard Schedule Given 04/07/2023 9:27 AM CLIENT REPRESENTATIVE 50 mEq potassium bicarbonate effervescent tablet 50 mEq (K-LYTE) 50 mEq, gastric tube, Once, On Sun04/15/23 at 0730, For 1 dose, Dissolve per computer technical support specialist recommendations. Do NOT chew or swallow tablet. Given 04/15/2023 7:54 AM CLIENT REPRESENTATIVE 50 mEq potassium chloride ER tablet 30 mEq (KLORCON/K-TAB) 30 mEq, oral, Once, On [place] 04/19/23 at 1530, For 1 dose, Swallow whole. Do NOT crush, chew, or split tablet. Given 04/19/2023 3:27 PM CLIENT REPRESENTATIVE 30 mEq potassium chloride ER tablet 40 mEq (KLORCON/K-TAB) 40 mEq, oral, Every 2 hours, First dose on Sun04/02/23 at 1053, For 2 doses, For K<3 mEq/L - give total of 80 mEq Swallow whole. Do NOT crush, chew, or split tablet., Monitor the following for replacement: Potassium, Replace Potassium per: Standard Schedule Given 04/02/2023 12:33 PM CLIENT REPRESENTATIVE 40 mEq Given 04/02/2023 11:04 AM CLIENT REPRESENTATIVE 40 mEq potassium chloride ER tablet 40 mEq (KLORCON/K-TAB) 40 mEq, oral, Once, On Sun04/02/23 at 1845, For 1 dose, For K 3-3.4 mEq/L - give total of 40 mEq Swallow whole. Do NOT crush, chew, or split tablet., Monitor the following for replacement: Potassium, Replace Potassium per: Standard Schedule Given 04/02/2023 7:47 PM CLIENT REPRESENTATIVE 40 mEq potassium chloride ER tablet 40 mEq (KLORCON/K-TAB) 40 mEq, oral, Once, On Sun04/03/23 at 0900, For 1 dose, For K 3-3.4 mEq/L - give total of 40 mEq Swallow whole. Do NOT crush, chew, or split tablet., Monitor the following for replacement: Potassium, Replace Potassium per: Standard Schedule Given 04/03/2023 9:40 AM CLIENT REPRESENTATIVE 40 mEq potassium chloride IVPB 10 mEq 10 mEq, intravenous, at 100 mL/hr, Administer over 60 Minutes, Every 1 hour, First dose on Carina 8/24 at 1000, For 6 doses, For K<3 mEq/L - give total of 60 mEq, Monitor the following for replacement: Potassium, Replace Potassium per: Standard Schedule 04/05/2023 11:54 AM CLIENT REPRESENTATIVE 10 mEq 100 mL/hr 04/05/2023 10:35 AM CLIENT REPRESENTATIVE 10 mEq 100 mL/hr potassium chloride IVPB 10 mEq 10 mEq, intravenous, at 100 mL/hr, Administer over 60 Minutes, Every 1 hour, First dose (after last modification) on Sun04/05/23 at 1400, For 4 doses, For K<3 mEq/L - give total of 60 mEq, Monitor the following for replacement: Potassium, Replace Potassium per: Standard Schedule 04/05/2023 5:46 PM CLIENT REPRESENTATIVE 10 mEq 100 mL/hr 04/05/2023 4:41 PM CLIENT REPRESENTATIVE 10 mEq 100 mL/hr 04/05/2023 3:37 PM CLIENT REPRESENTATIVE 10 mEq 100 mL/hr potassium chloride IVPB 10 mEq 10 mEq, intravenous, at 100 mL/hr, Administer over 60 Minutes, Every 1 hour, First dose on Sun04/06/23 at 2345, For 2 doses, For K 3-3.4 mEq/L - give total of 20 mEq, Monitor the following for replacement: Potassium, Replace Potassium per: Standard Schedule 04/07/2023 1:08 AM CLIENT REPRESENTATIVE 10 mEq 100 mL/hr 04/06/2023 11:55 PM CLIENT REPRESENTATIVE 10 mEq 100 mL/hr cvfejysou-zywzyl-imvwnpjxb 280-160-250 mg per packet 1 packet (PHOS-NAK) 1 packet, oral, Every 4 hours while awake, First dose on Sun04/03/23 at 1000, For 4 doses, Mix each packet in 75 mL water or juice then administer ordered dose. 250 mg of phosphate is equivalent to 8 mmol of phosphate., Monitor the following for replacement: Phosphorus Given 04/03/2023 8:54 PM CLIENT REPRESENTATIVE 1 packet Given 04/03/2023 5:50 PM CLIENT REPRESENTATIVE 1 packet Given 04/03/2023 1:47 PM CLIENT REPRESENTATIVE 1 packet rlnvoawzn-amwsii-gpottrxht 280-160-250 mg per packet 1 packet (PHOS-NAK) 1 packet, gastric tube, Every 4 hours while awake, First dose on Sun04/15/23 at 1830, For 1 dose, Mix each packet in 75 mL water or juice then administer ordered dose. 250 mg of phosphate is equivalent to 8 mmol of phosphate., Monitor the following for replacement: Phosphorus Given 04/15/2023 6:37 PM CLIENT REPRESENTATIVE 1 pack et pxvxwfcwa-ulmach-kynrzdthr 280-160-250 mg per packet 2 packet (PHOS-NAK) 2 packet, oral, Every 4 hours while awake, First dose on 04/07/23 at 1800, For 4 doses, Mix each packet in 75 mL water or juice then administer ordered dose. 250 mg of phosphate is equivalent to 8 mmol of phosphate., Monitor the following for replacement: Phosphorus Given 04/08/2023 8:44 AM CLIENT REPRESENTATIVE 2 packets Given 04/08/2023 6:16 AM CLIENT REPRESENTATIVE 2 packets Given 04/07/2023 9:12 PM CLIENT REPRESENTATIVE 2 packets prochlorperazine injection 10 mg (COMPAZINE) 10 mg, intravenous, Every 6 hours PRN, nausea, vomiting, Starting on Sun04/13/23 at 1358, Prochlorperazine should be used first for break-through nausea/vomiting. Given 04/14/2023 1:52 PM CLIENT REPRESENTATIVE 10 mg Given 04/13/2023 2:55 PM CLIENT REPRESENTATIVE 10 mg prochlorperazine injection 10 mg (COMPAZINE) 10 mg, intravenous, Every 6 hours PRN, nausea, vomiting, Starting on Sun04/20/23 at 1040, Prochlorperazine should be used first for break-through nausea/vomiting. prochlorperazine injection 5 mg (COMPAZINE) 5 mg, intravenous, Every 6 hours PRN, nausea, vomiting, Starting on Sun04/12/23 at 1638 Given 04/13/2023 6:12 AM CLIENT REPRESENTATIVE 5 mg Given 04/12/2023 7:43 PM CLIENT REPRESENTATIVE 5 mg prochlorperazine tablet 5 mg (COMPAZINE) 5 mg, oral, Every 6 hours PRN, nausea, vomiting, Starting on Sun04/05/23 at 1122 Given 04/11/2023 9:26 AM CLIENT REPRESENTATIVE 5 m g Given 04/10/2023 7:08 PM CLIENT REPRESENTATIVE 5 mg pyridoxine (vitamin B6) tablet 100 mg (VITAMIN B6) 100 mg, gastric tube, Daily, First dose (after last modification) on Sun04/06/23 at 1730 Given 04/17/2023 9:49 AM CLIENT REPRESENTATIVE 100 mg Given 04/16/2023 9:45 AM CLIENT REPRESENTATIVE 100 mg Given 04/15/2023 8:04 AM CLIENT REPRESENTATIVE 100 mg pyridoxine (vitamin B6) tablet 100 mg (VITAMIN B6) 100 mg, oral, Daily, First dose (after last modification) on Sun04/18/23 at 0900 Given 04/23/2023 8:01 AM CLIENT REPRESENTATIVE 100 mg Given 04/22/2023 9:09 AM CLIENT REPRESENTATIVE 100 mg Given 04/21/2023 8:42 AM CLIENT REPRESENTATIVE 100 mg riTUXimab-abbs 600 mg in NaCl 0.9% IVPB (TRUXIMA) 600 mg (rounded from 566.25 mg = 375 mg/m2 ? 1.51 m2 Treatment Plan BSA from Measured weight), intravenous, Once, On Sun04/13/23 at 1630, For 1 dose, Initial infusion: Start rate of 50 mg/hour; if there is no reaction, increase the rate by 50 mg/hour increments every 30 minutes, to a maximum rate of 400 mg/hour.If adverse events occur, slow or stop, then continue at half previous rate. , Restriction Criteria (Pharmacy will review and approve if criteria met): Meets rituximab algorithm criteria Rate/Dose Change 04/13/2023 8:05 PM CLIENT REPRESENTATIVE 350 mL/hr Rate/Dose Change 04/13/2023 7:32 PM CLIENT REPRESENTATIVE 300 mL/ hr Rate/Dose Change 04/13/2023 7:08 PM CLIENT REPRESENTATIVE 250 mL/ hr riTUXimab-abbs 600 mg in NaCl 0.9% IVPB (TRUXIMA) 600 mg (rounded from 566.25 mg = 375 mg/m2 ? 1.51 m2 Treatment Plan BSA from Measured weight), intravenous, Once, On Sun04/20/23 at 1230, For 1 dose, 90-minute infusion: 20% of the dose administered in the first 30 minutes, remaining 80% administered over 60 minutes. Or proceed with initial rate of 100 mg/hr and increase by 100 mg/hr every 30 minutes to a maximum of 400 mg/hr., Restriction Criteria (Pharmacy will review and approve if criteria met): Meets rituximab algorithm criteria Rate/Dose Change 04/20/2023 1:26 PM CLIENT REPRESENTATIVE 480 mL/h r New Bag 04/20/2023 12:50 PM CLIENT REPRESENTATIVE 600 mg 120 mL/hr sennosides-docusate sodium 8.6-50 mg per tablet 1 tablet (SENOKOT-S) 1 tablet, oral, 2 times daily, First dose on Sun04/02/23 at 2100, Do not give if patient has diarrhea. Given 04/03/2023 8:53 PM CLIENT REPRESENTATIVE 1 tablet Given 04/03/2023 9:40 AM CLIENT REPRESENTATIVE 1 tablet sennosides-docusate sodium 8.6-50 mg per tablet 1 tablet (SENOKOT-S) 1 tablet, gastric tube, 2 times daily, First dose on Sun04/15/23 at 1200 Given 04/17/2023 7:52 PM CLIENT REPRESENTATIVE 1 tablet Given 04/15/2023 12:04 PM CLIENT REPRESENTATIVE 1 tablet sennosides-docusate sodium 8.6-50 mg per tablet 1 tablet (SENOKOT-S) 1 tablet, oral, 2 times daily, First dose (after last modification) on Sun04/18/23 at 0900 Given 04/23/2023 8:02 AM CLIENT REPRESENTATIVE 1 tablet Given 04/20/2023 9:07 PM CLIENT REPRESENTATIVE 1 tablet Given 04/19/2023 9:23 AM CLIENT REPRESENTATIVE 1 tablet sennosides-docusate sodium 8.6-50 mg per tablet 3 tablet (SENOKOT-S) 3 tablet, oral, 2 times daily, First dose (after last modification) on Sun04/04/23 at 0900, Do not give if patient has diarrhea. Given 04/04/2023 9:45 P M CLIENT REPRESENTATIVE 3 tablets Given 04/04/2023 9:11 AM CLIENT REPRESENTATIVE 3 tablets simethicone chewable tablet 80 mg (MYLICON) 80 mg, oral, 4 times daily PRN, flatulence, Starting on Sun04/18/23 at 0837 sodium chloride 0.65 % nasal spray 1 spray (OCEAN) 1 spray, each nostril, Every 1 hour PRN, congestion, Starting on Sun04/10/23 at 1927 sodium chloride 0.9 % injection 10 mL 10 mL, intravenous, As needed, line care, Peripheral Intravenous Catheter and Rapid Infusion Catheter, Starting on Sun04/05/23 at 0929, Prior to blood sampling, post blood transfusion or post blood sampling. sodium chloride 0.9 % injection 3 mL 3 mL, intravenous, As needed, line care, Peripheral Intravenous Catheter and Rapid Infusion Catheter, Starting on [place] 04/05/23 at 0929, Prior to and following infusion and between multiple consecutive infusions. sodium chloride 0.9 % injection 3 mL 3 mL, intravenous, Every 12 hours scheduled, First dose on [place] 04/05/23 at 2100, Peripheral Intravenous Catheter and Rapid Infusion Catheter: When no infusion to maintain patency. Given 04/11/2023 9 :35 PM CLIENT REPRESENTATIVE 3 mL Given 04/10/2023 9:05 PM CLIENT REPRESENTATIVE 3 mL Given 04/10/2023 8:31 AM CLIENT REPRESENTATIVE 3 mL sodium chloride 0.9 % injection 3 mL 3 mL, intravenous, Every 12 hours scheduled, First dose on [place] 04/05/23 at 2100, Peripheral Intravenous Catheter and Rapid Infusion Catheter: When no infusion to maintain patency. Given 04/12/2023 8 :31 AM CLIENT REPRESENTATIVE 3 mL Given 04/11/2023 9:34 PM CLIENT REPRESENTATIVE 3 mL Given 04/11/2023 9:26 AM CLIENT REPRESENTATIVE 3 mL thiamine 250 mg in NaCl 0.9% IVPB (VITAMIN B1) 250 mg, intravenous, at 105 mL/hr, Administer over 30 Minutes, Daily, First dose on Sun04/08/23 at 0900, For 5 doses New Bag 04/12/2023 8:32 AM CLIENT REPRESENTATIVE 250 mg 105 mL/hr New Bag 04/11/2023 9:31 AM CLIENT REPRESENTATIVE 250 mg 105 mL/hr New Bag 04/10/2023 8:31 AM CLIENT REPRESENTATIVE 250 mg 105 mL/hr thiamine 500 mg in NaCl 0.9% IVPB (VITAMIN B1) 500 mg, intravenous, at 110 mL/hr, Administer over 30 Minutes, 3 times daily, First dose (after last modification) on [facility] 04/05/23 at 2100, For 7 doses New Bag 04/07/2023 9:21 PM CLIENT REPRESENTATIVE 500 mg 110 mL/hr New Bag 04/07/2023 1:08 PM CLIENT REPRESENTATIVE 500 mg 110 mL/hr New Bag 04/07/2023 8:34 AM CLIENT REPRESENTATIVE 500 mg 110 mL/hr thiamine tablet 100 mg (VITAMIN B1) 100 mg, gastric tube, Daily, First dose (after last modification) on Sun04/13/23 at 0900 Given 04/17/2023 9:48 AM CLIENT REPRESENTATIVE 100 mg Given 04/16/2023 9:45 AM CLIENT REPRESENTATIVE 100 mg Given 04/15/2023 8:04 AM CLIENT REPRESENTATIVE 100 mg thiamine tablet 100 mg (VITAMIN B1) 100 mg, oral, Daily, First dose (after last modification) on Sun04/18/23 at 0900 Given 04/23/2023 8:01 AM CLIENT REPRESENTATIVE 100 mg Given 04/22/2023 9:09 AM CLIENT REPRESENTATIVE 100 mg Given 04/21/2023 8:42 AM CLIENT REPRESENTATIVE 100 mg zoledronic acid 4 mg in NaCl 0.9% IVPB (ZOMETA) 4 mg, intravenous, at 420 mL/hr, Administer over 15 Minutes, Once, On Car[place] 04/12/23 at 1630, For 1 dose New Bag 04/12/2023 6:52 PM CLIENT REPRESENTATIVE 4 mg 420 mL/hr documented in this encounter Active and Recently Administered Medications Times are shown in CLIENT REPRESENTATIVE. Scheduled Medication Order 04/21/2023 04/22/2023 04/23/2023 allopurinoL tablet 300 mg (ZYLOPRIM) (COMPLETED) 300 mg, oral, Daily, First dose (after last modification) on Sun04/18/23 at 0900, For 4 doses 0842 (Given - Provider: Ashley Curry, R.N.) bisacodyL suppository 10 mg (DULCOLAX) 10 mg, rectal, Once, On Sun04/16/23 at 0845, For 1 dose brimonidine 0.2 % ophthalmic solution 1 drop (ALPHAGAN) 1 drop, both eyes, 3 times daily, First dose on Sun04/02/23 at 2100 0842 (Given - Provider: Esteban Curry., R.N.)1520 (Given - Provider: Ashley Curry, R.N.)2104 (Given - Provider: Tommy MendozaN.) 0909 (Given - Provider: Esteban Curry., R.N.)1448 (Given - Provider: Ashley Curry, R.N.)2123 (Given - Provider: Mere James R.N.) 0808 (Given - Provider: Nathaly Vicente R.N.) buPROPion tablet 75 mg (WELLBUTRIN) 75 mg, oral, 2 times daily with meals, First dose (after last modification) on Sun04/18/23 at 1700 0842 (Given - Provider: Alfreda CurryA.N., R.N.)1653 (Given - Provider: Emelina Stout M.A.N., R.N.) 0909 (Given - Provider: Emelina Stout M.A.N., R.N.)1645 (Given - Provider: Emelina Stout M.A.N., R.N.) 0801 (Given - Provider: Tommy PaizN.) dorzolamide-timoloL 22.3-6.8 mg/mL ophthalmic solution 1 drop (COSOPT) 1 drop, both eyes, 2 times daily, First dose on Sun04/02/23 at 2100 0842 (Given - Provider: Nick Curry.A.N., R.N.)2104 (Given - Provider: Mere James R.N.) 0909 (Given - Provider: Emelina Stout M.A.N., R.N.)2122 (Given - Provider: Mere James R.N.) 0802 (Given - Provider: Nathaly Vicente R.N.) escitalopram tablet 20 mg (LEXAPRO) 20 mg, oral, Daily, First dose (after last modification) on Sun04/18/23 at 0900 0842 (Given - Provider: Emelina Stout M.A.NAdalid, R.N.) 0909 (Given - Provider: Emelina Stout M.A.NAdalid, R.N.) 0801 (Given - Provider: Nathaly Vicente R.N.) heparin (porcine) injection 5,000 Units 5,000 Units, subcutaneous, Every 8 hours scheduled, First dose on Sun04/02/23 at 2200 0617 (Given - Provider: Mere James R.N.)1522 (Given - Provider: Emelina Stout M.A.NAdalid, R.N.)2104 (Given - Provider: Mere James R.N.) 0621 (Given - Provider: Mere James R.N.)1459 (Given - Provider: Ashley Curry, R.N.)2121 (Given - Provider: Mere James R.N.) 0637 (Given - Provider: Mere James R.N.) ketorolac 0.5 % ophthalmic solution 1 drop (ACULAR) 1 drop, both eyes, 2 times daily, First dose on Sun04/03/23 at 2100 0842 (Given - Provider: Ashley Curry, R.N.)2103 (Given - Provider: Mere James R.N.) 908 (Given - Provider: Ashley Curry, R.N.)2122 (Given - Provider: Mere James R.N.) 08 (Given - Provider: Nathaly Vicente R.N.) pantoprazole DR tablet 40 mg (PROTONIX) 40 mg, oral, Daily before breakfast, First dose on Sun04/21/23 at 0700, Swallow whole. Do NOT crush, chew, or split tablet. 0617 (Given - Provider: Mere James R.N.) 0621 (Given - Provider: Mere James R.N.) 0637 (Given - Provider: Mere James R.N.) polyethylene glycol powder packet 17 g (MIRALAX) 17 g, oral, 2 times daily, First dose (after last modification) on Sun04/18/23 at 0900, Dissolve in 240 mLs (8 ounces) of water prior to giving. Avoid mixing with starch-based thickened liquids. 0843 (Not Given - Provider: Ashley Curry, R.N. - Reason: Patient/family refused)2107 (Not Given - Provider: Mere James R.N. - Reason: Patient/family refused) 09 (Not Given - Provider: Ashley Curry, R.N. - Reason: Patient/family refused)2121 (Not Given - Provider: Mere James R.N. - Reason: Patient/family refused) 08 (Given - Provider: Nathaly Vicente R.N.) pyridoxine (vitamin B6) tablet 100 mg (VITAMIN B6) 100 mg, oral, Daily, First dose (after last modification) on Sun04/18/23 at 0900 0842 (Given - Provider: Ashley Curry, R.N.) 09 (Given - Provider: Ashley Curry, R.N.) 08 (Given - Provider: Nathaly Vicente R.N.) sennosides-docusate sodium 8.6-50 mg per tablet 1 tablet (SENOKOT-S) 1 tablet, oral, 2 times daily, First dose (after last modification) on Sun04/18/23 at 0900 0843 (Not Given - Provider: Ashley Curry, R.N. - Reason: Patient/family refused)2107 (Not Given - Provider: Mere James R.N. - Reason: Patient/family refused) 909 (Not Given - Provider: Ashley Curry, R.NAdalid - Reason: Patient/family refused)2121 (Not Given - Provider: Mere James R.N. - Reason: Patient/family refused) 08 (Given - Provider: Nathaly Vicente R.N.) thiamine tablet 100 mg (VITAMIN B1) 100 mg, oral, Daily, First dose (after last modification) on Sun04/18/23 at 0900 0842 (Given - Provider: Ashley Curry, R.N.) 0909 (Given - Provider: Ashley Curry, R.N.) 08 (Given - Provider: Nathaly Vicente R.N.) PRN Medication Order 04/21/2023 04/22/2023 04/23/2023 acetaminophen solution 650 mg (TYLENOL) 650 mg, oral, Every 4 hours PRN, mild pain or score 1-3 of 10, Starting on Sun04/18/23 at 0837 acetaminophen tablet 650 mg (TYLENOL) 650 mg, oral, Every 4 hours PRN, infusion related reactions or temperature greater than 38 degrees Celsius, Starting on Sun04/13/23 at 1358, For 4 doses acetaminophen tablet 650 mg (TYLENOL) 650 mg, oral, Every 4 hours PRN, infusion related reactions or temperature greater than 38 degrees Celsius, Starting on Sun04/20/23 at 1040, For 4 doses diphenhydrAMINE injection 25 mg (BENADRYL) 25 mg, intravenous, Every 4 hours PRN, infusion related reactions. May repeat once if symptoms not relieved within 15 minutes of initial dose., Starting on Sun04/20/23 at 1040 etqsokiyrrHTOME-exxo-tdsz-mag hydrox-simeth [phone] mg/30 mL suspension 15 mL (FIRST-MOUTHWASH BLM) 15 mL, swish & spit, 4 times daily PRN, mouth pain, Starting on Sun04/06/23 at 1604 melatonin tablet 5 mg 5 mg, oral, Bedtime PRN, sleep, Starting on Sun04/18/23 at 0837 2104 (Given - Provider: Mere James R.N.) 2126 (Given - Provider: Mere James R.N.) meperidine (PF) injection 25 mg (DEMEROL) 25 mg, intravenous, Every 15 min PRN, Rigors. May repeat once (maximum total dose 50 mg)., Starting on Sun04/20/23 at 1040, For 2 doses, Restriction Criteria (Pharmacy will review and approve if criteria met): Prevention or treatment of drug-induced or xrbga-mperksk-dbrvwfn rigors NaCl 0.9% infusion 10-250 mL/hr, intravenous, As needed, Between Consecutive Piggyback Medications, Starting on Sun04/05/23 at 0929, Infuse at the same rate as the piggyback until tubing clears or up to a volume of 20 mL. Select for IV medication administration when no maintenance IV available or when IV medications are not compatible with maintenance fluid. NaCl 0.9% infusion 10-250 mL/hr, intravenous, As needed, Post Medications (Hazardous/Low Fluid Volume), Starting on Sun04/05/23 at 0929, Infuse at the same rate as the medication until tubing cleared of medication, then discard. nystatin 100,000 unit/gram powder 1 Application (NYSTOP) 1 Application, topical, 2 times daily PRN, If cutaneous invovlement of candidiasis albicans with ITD/IAD, Starting on Sun04/13/23 at 2100, If rash is present, apply to affected area around perirectal area or other involved skin folds twice daily. Removal old product, cleanse the skin, and apply powder in a thin, even layer, dusting off excess powder. ondansetron (PF) injection 4 mg (ZOFRAN)(Linked Group 1) 4 mg, intravenous, Every 6 hours PRN, nausea, vomiting, Starting on 04/21/23 at 1136 1148 (See Alternative - Provider: Ashley Curry, R.N.) ondansetron ODT disintegrating tablet 4 mg (ZOFRAN-ODT)(Linked Group 1) 4 mg, oral, Every 6 hours PRN, nausea, vomiting, Starting on 04/21/23 at 1136, When splitting ODT at bedside, handle with gloves and a pill splitter to prevent moisture contact. 1148 (Given - Provider: Ashley Curry, R.N.) prochlorperazine injection 10 mg (COMPAZINE) 10 mg, intravenous, Every 6 hours PRN, nausea, vomiting, Starting on Sun04/13/23 at 1358, Prochlorperazine should be used first for break-through nausea/vomiting. prochlorperazine injection 10 mg (COMPAZINE) 10 mg, intravenous, Every 6 hours PRN, nausea, vomiting, Starting on Sun04/20/23 at 1040, Prochlorperazine should be used first for break-through nausea/vomiting. prochlorperazine injection 5 mg (COMPAZINE) 5 mg, intravenous, Every 6 hours PRN, nausea, vomiting, Starting on [place] 04/12/23 at 1638 simethicone chewable tablet 80 mg (MYLICON) 80 mg, oral, 4 times daily PRN, flatulence, Starting on Sun04/18/23 at 0837 sodium chloride 0.65 % nasal spray 1 spray (OCEAN) 1 spray, each nostril, Every 1 hour PRN, congestion, Starting on Sun04/10/23 at 1927 sodium chloride 0.9 % injection 10 mL 10 mL, intravenous, As needed, line care, Peripheral Intravenous Catheter and Rapid Infusion Catheter, Starting on [place] 04/05/23 at 0929, Prior to blood sampling, post blood transfusion or post blood sampling. sodium chloride 0.9 % injection 3 mL 3 mL, intravenous, As needed, line care, Peripheral Intravenous Catheter and Rapid Infusion Catheter, Starting on [place] 04/05/23 at 0929, Prior to and following infusion and between multiple consecutive infusions. Linked Groups Order Group 1: ondansetron ODT disintegrating tablet 4 mg (ZOFRAN-ODT)Jump to med 4 mg, oral, Every 6 hours PRN, nausea, vomiting, Starting on 04/21/23 at 1136, When splitting ODT at bedside, handle with gloves and a pill splitter to prevent moisture contact. Or ondansetron (PF) injection 4 mg (ZOFRAN)Jump to med 4 mg, intravenous, Every 6 hours PRN, nausea, vomiting, Starting on 04/21/23 at 1136 documented in this encounter Additional Health Concerns Infection Onset Date Last Indicated Resolved Time COVID19 Pending 04/02/2023 04/02/2023 04/02/2023 1 1:24 AM CLIENT REPRESENTATIVE COVID19 Pending 04/11/2023 04/11/2023 04/11/2023 3 :59 PM CLIENT REPRESENTATIVE Protective Environment 04/12/2023 04/12/2023 Assessment Noted Time PHQ-9 Depression Total Score: 5 06/13/19 22 6:15 PM CDT documented as of this encounter Care Teams Mohel Relationship Specialty Start Date End Date Elsewhere, Pcp PCP - General Internal Medicine 05/10/21 documented as of this encounter
--- OUTSIDE RECORDS SUMMARY | 2023-06-13 07:29 | XMS_ITS | Encounter Summary ---
Author Name Unknown Organization [facility] Address [address] [place] [address] Care Team Providers Care Dictating Transcribing Machine Servicer Name Role Phone Elsewhere, Pcp Primary Care Provider Unavailabl e Reason for Visit * Reason Onset Date Comments Post Hospital Follow-up 04/19/2023 Encounter Details Date Type Department Care Team (Latest Contact Info) Description 04/19/2023 Clinical Communication RST HIM [address] [place] [phone] Samir Laureano M.D. [address] [place] [phone] Post Hospital Follow-up Social History Tobacco Use Types Packs/Day Years Used Date Smoking Tobacco: Light Smoker Cigarettes 0.3 14 Started: 962; Last attempted to quit: 09/05/1975 Smokeless Tobacco: Never Comments:Havent smoked since 1975 Alcohol Use Standard Drinks/Week Comments Yes 1 (1 standard drink = 0.6 oz pure alcohol) approximately 1-2 servings of alcohol per 1-2 weeks. [facility] Utilities Answer Date Recorded In the past 12 months has [facility] [email or web address], gas, oil, or water [employer] threatened to shut off services in your [...] How often do you attend chur or buddhism services? More than 4 times [...] Answer Date Recorded PHQ-2 Score 0 06/12/2021 [facility] [place] of Occupat ional Health - Occupational Stress [...] your living situation today? [facility] 04/02/2023 Education Answer Date [...] AM CDT Clinical Communication Virtual Review in [place], [place] [address] [place] [address] 07/11/2023 1:00 PM CDT Office Visit Department of Neurology in [place], [place] [address] [place] [phone] Danita Prabhakar M.D., Ph.D. [address] [place] [phone] documented as of this encounter Results * Comprehensive Metabolic Panel (05/29/2023 2:06 PM CDT) [facility] Potassium, P 5.1 3.6 - 5.2 mmol/L [...] CDT Samir Laureano M.D. LAB BLOOD ADD-ON [facility] [address] [place] [phone], [facility] [place] [address] * (ABNORMAL) CBC with Differential, Blood (05/29/2023 [...] CDT Samir Laureano M.D. LAB BLOOD ADD-ON [facility] [address] [place] [address], [facility] in [address] [address] documented in this encounter Visit Diagnoses Diagnosis Thrombocytopenia (HCC)- Primary Hypokalemia Anemia Macrocytic documented in this encounter Additional Health Concerns Infection Onset Date Last Indicated Resolved Time Protective Environment 04/12/2023 04/12/2023 Assessment Noted Time PHQ-9 Depression Total Score: 5 06/13/19 22 6:15 PM CDT documented as of this encounter Care Teams Dictating Transcribing Machine Servicer Relationship Specialty Start Date End Date Elsewhere, Pcp PCP - General Internal Medicine 05/10/21 documented as of this encounter
--- OUTSIDE RECORDS SUMMARY | 2023-06-13 07:29 | XMS_ITS | Encounter Summary ---
Author Name Unknown Organization [facility] Address [address] [place] [address] Care Team Providers Care Air Tool Operator Name Role Phone Elsewhere, Pcp Primary Care Provider Unavailabl e Encounter Details Date Type Department Care Team (Late st Contact Info) Description 04/06/2023 9:00 AM SCHOOL DIRECTOR Anesthesia Event Department of Anesthesia, [place], [place] [address] [place] [address] Tramaine Juarez APRN, STRATEGIC COMMUNICATIONS MANAGER [address] [place] [address] Anesthesia Record Procedure Summary Procedure Name Responsible Anesthesiologist Anesthesia Start Time Anesthesia Stop Time BEDSIDE ANESTHESIA SCHEDULING Tramaine Juarez APRN, JOSE F 04/06/23 0900 04/06/23 0934 Events Date Time Event Comment 04/06/2023 0900 An Start Machine/Equipme nt Checked Infection Precautions Followed Procedure/Site Verified NPO Status Verified Supine Standard ASA Monitors Applied 0908 an bernardo now 0909 Turnover to Proceduralist 0910 Anesthesia Time Out 0910 Proc Start 0915 Proc Fin 0916 Turnover to ANE Staff 0934 an stop data 0934 An End I completed my handoff to the receiving staff during which we 1. Identified the patient 2. Identified the responsible provider 3. Reviewed the pertinent medical history 4. Discussed the surgical course 5. Reviewed intra-op anesthesia management and issues during anesthesia 6. Set expectations for post-procedure period 7. Allowed opportunity for questions and acknowledgement of understanding. Meds Name Total lidocaine 2% (mg) injection 100 mg ondansetron PF 4 mg/2 mL injection 4 mg propofol 10 mg/mL injection 40 mg Lactated Ringers Free Drip 150 mL * Agents No agents on file. * Blood No blood administrations on file. Lines, Drains, and Airways Type Details Placement Removal External Urinary Catheter 04/05/23; 1920; Female 04/05/231920 by Marlon Burris R.N. Wound N; Incision; Iliac crest; Right, Posterior; BMBX- gauze/coverderm.; 04/10/23; 93004/06/23 0942 by 04/10/23930 by Татьяна Mccabe R.N. Peripheral IV Placement Date: 04/02/23; Placement Time: 101; Catheter Size: 20 G; Orientation: Anterior, Lower, Proximal, Right; Location: Arm; Insertion Attempts: 1; Removal Date: 04/06/23; Removal Time: 1712; Removal Reason: Leaking 04/02/23 1018 by Fatoumata Cornell RShon 04/06/231712 by Indu Meyer RAdalidNAdalid documented in this encounter Social History Tobacco Use Types Packs/Day Years Used Date Smoking Tobacco: Light Smoker Cigarettes 0.3 14 Started: 962; Last attempted to quit: 09/05/1975 Smokeless Tobacco: Never Comments:Havent smoked since 1975 Alcohol Use Standard Drinks/Week Comments Yes 1 (1 standard drink = 0.6 oz pure alcohol) approximately 1-2 servings of alcohol per 1-2 weeks. [facility] Utilities Answer Date Recorded In the past 12 months has [facility] [employer], [employer], [employer], or water [employer] threatened to shut off services in your [...] How often do you attend chur or islam services? More than 4 times per year 12/07/2021 Do you belong to any clubs o r organizations such as pentecostalism groups, unions, fraternal [...] Answer Date Recorded PHQ-2 Score 0 06/12/2021 [facility] of Occupat ional Health - Occupational Stress [...] your living situation today? I have a [facility] place to live 04/02/2023 Education Answer Date Recorded What is the highest level of school you have completed or the highest degree you have received? 12th grade 09/21/2020 Sex and Gender Information Value Date Recorded Sex Assigned at Female 12/07/2021 9:06 AM CDT Gender Identity Female 05/10/2021 12:15 PM CDT Sexual Orientation Straight 05/10/2021 12 :15 PM CDT documented as of this encounter OR Notes * Anesthesia Postprocedure Evaluation - Tramaine Juarez APRN, CRNA - 04/06/2023 9:40 AM CST Patient: Darcy Colon Procedure Summary Date: 04/06/23 Room / Location: Department of Anesthesia, [place], [place] Anesthesia Start: 899 Anesthesia Stop: 933 Procedure: BEDSIDE ANESTHESIA SCHEDULING Diagnosis: Scheduled Providers: Responsible Provider: Tramaine Juarez APRN, CRNA Anesthesia Type: MAC ASA Status: 3 Anesthesia Type: MAC Last vitals Vitals Value Taken Time BP Temp Pulse Resp SpO2 Please reference Vitals flowsheet for most recent vital signs. Anesthesia Post Evaluation Patient Disposition: general care unit Cardiovascular status: hemodynamics (HR & BP) acceptable Respiratory status: patent airway with spontaneous effort Temperature: normothermic Oxygen requirements: nasal cannula Level of consciousness: awake Pain score: pain adequately controlled and/or at baseline Post Op nausea/vomiting: none Hydration status: euvolemic OL DIRECTOR * Anesthesia Preprocedure Evaluation - Tramaine Juarez APRN, CRNA - 04/06/2023 9:13 AM CST Preprocedure Anesthesia & H&P Assessment Procedure Summary Anesthesia Start Date/Time: 04/06/23 09 Procedure: BEDSIDE ANESTHESIA SCHEDULING Location: Department of Anesthesia, [place], [place] Pertinent components of the patient's history including current problem list, medical history, surgical history, family history, social history, medications and allergies were reviewed. Present illness and pre-op diagnosis were confirmed. The planned surgery / procedure was verified with the patient / legal guardian. The patient's general health condition remains unchanged RELEVANT COMORBID CONDITIONS NEURO (+) Encephalopathy Other (+) Malnutrition Protein-Calorie Unspecified (HCC) OBJECTIVE PHYSICAL EXAMINATION Airway (HEENT) Mallampati: III TM Distance: >3 FB Neck ROM: Limited Cardiovascular Rhythm: Regular Rate: Normal Pulmonary Pulmonary Assessment: Clear General / Constitutional Constitutional Assessment: Normal Neurological Normal ASSESSMENT / PLAN ANESTHESIA PLAN ASA: 3 Anesthesia Plan: MAC Patient seen and allergies reviewed, anesthesia plan and risks discussed directly with patient /legal guardian or through an research professor of biostatistics. Risks/Benefits/Alternatives of Blood transfusion discussed with patient / legal guardian, includingan opportunity to ask questions and/or decline some or all transfusion therapies. The patient / legal guardian consented to the use of all blood products, as deemed medically necessary Approval to Proceed: approved for anesthesia Pt consents to full code status for this procedure. OL DIRECTOR documented in this encounter Plan of Treatment Upcoming Encounters Date Type Department Care Team (Late st Contact Info) Description 07/09/2023 11:15 AM CDT Clinical Communication Virtual Review in [place], [place] [address] [place] [address] 07/11/2023 1:00 PM CDT Office Visit Department of Neurology in [place], [place] [address] [place] [phone] Danita Prabhakar M.D., Ph.D. [address] [place] [phone] documented as of this encounter Visit Diagnoses Not on filedocumented in this encounter Administered Medications Inactive Administered Medications - up to 3 most recent administrations Medication Order MAR Action Action Date Dose Rate Site Lactated Ringer's intravenous, Continuous Infusion: Per Instructions PRN, Starting on Sun04/06/23 at 0905, Anesthesia Intra-op New Bag 04/06/2023 9:05 AM SCHOOL DIRECTOR lidocaine (PF) (cardiac) injection intravenous, As needed, Starting on Sun04/06/23 at 0907, Anesthesia Intra-op Given 04/06/2023 9:09 AM SCHOOL DIRECTOR 40 mg Given 04/06/2023 9:07 AM SCHOOL DIRECTOR 60 mg ondansetron (PF) injection (ZOFRAN) intravenous, As needed, Starting on Sun04/06/23 at 0908, Anesthesia Intra-op Given 04/06/2023 9:08 AM SCHOOL DIRECTOR 4 mg propofoL injection (DIPRIVAN) intravenous, As needed, Starting on Sun04/06/23 at 0908, Anesthesia Intra-op Given 04/06/2023 9:09 AM SCHOOL DIRECTOR 20 mg Given 04/06/2023 9:08 AM SCHOOL DIRECTOR 20 mg documented in this encounter Additional Health Concerns Assessment Noted Time PHQ-9 Depression Total Score: 5 06/13/19 22 6:15 PM CDT documented as of this encounter Care Teams Air Tool Operator Relationship Specialty Start Date End Date Elsewhere, Pcp PCP - General Internal Medicine 05/10/21 documented as of this encounter
--- OUTSIDE RECORDS SUMMARY | 2023-06-13 07:29 | XMS_ITS | Encounter Summary ---
Author Name Unknown Organization [facility] Address [address] [place] [address] Care Team Providers Care Account Manager Education Name Role Phone Elsewhere, Pcp Primary Care Provider Unavailabl e Reason for Referral * MRI/CAT/PET Scan (Routine) - Closed Specialty Diagnoses / Procedures Referred By Rodolfo t Referred To Contact Diagnoses Thrombocytopenia (HCC) Hypokalemia Anemia Macrocytic Procedures PET CT Skull to Thigh FDG Samir Laureano M.D. [address] [place] [phone] [facility] Referral ID Status Reason Start Date Expiration Date Visits Re quested Visits Authorized [id number] Closed 04/19/2023 04/18/2024 1 1 E COMPANION Encounter Details Date Type Department Care Team (Late st Contact Info) Description 04/19/2023 Clinical Communication RST HIM [address] [place] [phone] Samir Laureano M.D. [address] [place] [phone] Social History Tobacco Use Types Packs/Day Years Used Date Smoking Tobacco: Light Smoker Cigarettes 0.3 14 Started: 962; Last attempted to quit: 09/05/1975 Smokeless Tobacco: Never Comments:Havent smoked since 1975 Alcohol Use Standard Drinks/Week Comments Yes 1 (1 standard drink = 0.6 oz pure alcohol) approximately 1-2 servings of alcohol per 1-2 weeks. [facility] Utilities Answer Date Recorded In the past 12 months has [employer], [employer], oil, or water [employer] threatened to shut off services in your [...] often do you attend chur ch or jew services? More than 4 times per year 12/07/2021 Do you belong to any clubs o r organizations such as jainism groups, unions, fraternal or athletic groups, or [...] Answer Date Recorded PHQ-2 Score 0 06/12/2021 [facility] [place] of Occupat ional Health - Occupational Stress [...] your living situation today? I have a [facility] place to live 04/02/2023 Education Answer [...] AM CDT Clinical Communication Virtual Review in [place], [place] [address] [place] [address] 07/11/2023 1:00 PM CDT Office Visit Department of Neurology in [place], [place] [address] [place] [phone] Danita Prabhakar M.D., Ph.D. [address] [place] [phone] documented as of this encounter Results * PET CT Skull [...] RADIOPHARMACEUTICAL/MEDS: Route: intravenous fludeoxyglucose F 18 injection CORRECTION (FDG F-18),9.77 millicurie TECHNIQUE: ??F-18 FDG PET/CT [...] RADIOPHARMACEUTICAL/MEDS: Route: intravenous fludeoxyglucose F 18 injection CORRECTION (FDG F-18),9.77 [employer] TECHNIQUE: F-18 FDG PET/CT [...] Diagnosis Thrombocytopenia (HCC)- Primary Hypokalemia Anemia Macrocytic Thrombocytopenia (HCC) Hypokalemia Anemia Macrocytic documented in this encounter Additional Health Concerns Infection Onset Date Last Indicated Resolved Time Protective Environment 04/12/2023 04/12/2023 Assessment Noted Time PHQ-9 Depression Total Score: 5 06/13/19 22 6:15 PM CDT documented as of this encounter Care Teams Account Manager Education Relationship Specialty Start Date End Date Elsewhere, Pcp PCP - General Internal Medicine 05/10/21 documented as of this encounter
--- OUTSIDE RECORDS SUMMARY | 2023-06-13 07:29 | XMS_ITS | Encounter Summary ---
Author Name Unknown Organization [facility] Address [address] [place] [address] Care Team Providers Care Composing Machine Operator Name Role Phone Elsewhere, Pcp Primary Care Provider Unavailabl e Encounter Details Date Type Department Care Team (Late st Contact Info) Description 04/12/2023 Orders Only Department of Oncology in [place], [place] [address] [place] [phone] Satnam Lema M.B.B.S. [address] [place] [phone] Social History Tobacco Use Types Packs/Day Years [...] Recorded In the past 12 months has [facility] [employer], oil, or water [employer] threatened to shut off services in your [...] How often do you attend chur or scientology services? More than 4 times per year 12/07/2021 Do you belong to any clubs o r organizations such as faith groups, unions, fraternal or athletic groups, or [...] Answer Date Recorded PHQ-2 Score 0 06/12/2021 [facility] [place] of Occupat ional Health - Occupational Stress [...] your living situation today? [facility] 04/02/2023 Education Answer [...] AM CDT Clinical Communication Virtual Review in [place], [place] [address] [place] [address] 07/11/2023 1:00 PM CDT Office Visit Department of Neurology in [place], [place] [address] [place] [phone] SyDanita Morales M.D., Ph.D. [address] [place] [phone] documented as of this encounter Visit Diagnoses Not on filedocumented in this encounter Additional Health Concerns Infection Onset Date Last Indicated Resolved Time Protective Environment 04/12/2023 04/12/2023 Assessment Noted Time PHQ-9 Depression Total Score: 5 06/13/19 22 6:15 PM CDT documented as of this encounter Care Teams Composing Machine Operator Relationship Specialty Start Date End Date Elsewhere, Pcp PCP - General Internal Medicine 05/10/21 documented as of this encounter
== END 2023-06-11 10:12 | disposition home or self-care (01) ==
LOC: NFLDREF 06-13 07:21
PROVIDERS: PCP Family Medicine; Referring Provider Family Medicine; Visit Provider Family Medicine
DX: R53.83 Other fatigue (principal); E55.9 Vitamin D deficiency, unspecified; M85.80 Other specified disorders of bone density and structure, unspecified site; Z86.39 Personal history of other endocrine, nutritional and metabolic disease; I10 Essential (primary) hypertension; R73.01 Impaired fasting glucose; C83.00 Small cell B-cell lymphoma, unspecified site; E53.9 Vitamin B deficiency, unspecified
CPT/HCPCS: 80053; 82306; 82607; 82728; 84207; 84425; 84443

== ENCOUNTER 2023-08-14 14:30 | Outpatient (RCR) | payer MEDICARE, OTHER, SELFPAY | END 2023-12-12 23:59 | disposition home or self-care (01) | PROVIDERS: PCP Family Medicine; Visit Provider Family Medicine | DX: G20.A1 Parkinson's disease without dyskinesia, without mention of fluctuations (principal); G31.84 Mild cognitive impairment of uncertain or unknown etiology; Z86.69 Personal history of other diseases of the nervous system and sense organs; Z51.89 Encounter for other specified aftercare | CPT/HCPCS: 97165; 97535 ==

== ENCOUNTER 2023-10-23 13:50 | Outpatient (CLI) | payer MEDICARE, OTHER, SELFPAY ==
--- NOTE | 2023-10-23 13:40 | CRLHL7_ITS ---
For Patients: As a result of the Century Cures Act, medical imaging exams and procedure reports are released immediately into your electronic medical record. You may view this report before your referring provider. If you have questions, please contact your health care provider. BILATERAL SCREENING MAMMOGRAM WITH COMPUTER-AIDED DETECTION AND TOMOSYNTHESIS TECHNIQUE: CC and MLO views were obtained. These mammographic images have been obtained using full-field digital technique. These mammographic images were interpreted with the benefit of computer-aided detection. Breast Tomosynthesis was used in this interpretation. COMPARISON FILM: 02/14/16, 02/09/17, 02/03/16. FINDINGS: The breasts are heterogeneously dense, which may obscure small masses IMPRESSION: There is no radiographic evidence for malignancy. ASSESSMENT: BI-RADS Category 2: Benign RECOMMENDATION: Routine screening mammogram in 1 year. A lay language report of this examination will be provided to the patient. Baljinder Watson M.D. Diagnostic Radiologist [email or web address]/[email or web address] Transcribed: 4:10 p.sanford lam/Dictated by: Baljinder Watson MD @ 10/24/2023 9:01:00 AM (Electronically Signed)
--- OUTSIDE RECORDS SUMMARY | 2023-10-23 13:53 | XMS_ITS | Referral Summary ---
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 For routine questions regarding patient records, call [phone] during business hours, M-F 8:00 AM - 5:00 PM Central Time. Record requests for emergency care only can be directed to [phone] at any time.[facility] Encounters Date Type Department Care Team Description 10/15/2023 2:45 PM CDT Clinical Communication Virtual Review in [place], [place] [address] [place] [address] Pre-visit Intake 10/11/2023 11:17 AM CDT - 10/11/2023 11:59 PM CDT Hospital Encounter Department of Radiology, [facility] in [address] [address] Minerva Albarran M.D. 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 Nodule Thyroid (Primary Dx) 09/18/2023 Ancillary Procedure Department of Dermatology 09/18/2023 2:01 PM CDT - 09/18/2023 11:59 PM CDT Hospital Encounter Department of Radiology, [facility] in [place], [place] [address] [place] [address] Minerva Albarran M.D. 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) Discharge Disposition: Home or Self Care 09/18/2023 11:00 AM CDT Comprehensive Visit Department of Dermatology in [place], [place] [address] [place] [phone] Shannon Murray M.B.BAdalidSAdalid Dermatoheliosis (Primary Dx); Nonscarring Hair Loss Unspecified; Cancer Skin Basal Cell Personal History; Telogen Effluvium; Screening Examination Skin Cancer; Keratosis Actinic; Angioma Chiang; Personal History Of Other Malignant Neoplasm Of Skin; Tumor Skin Uncertain Behavior Discharge Disposition: Home or Self Care 09/06/2023 3:45 PM CDT Office Visit Division of Hematology in [place], [place] [address] [place] [phone] Minerva Albarran M.D. Marginal Zone Lymphoma Splenic (HCC) (Primary Dx); Encephalopathy Metabolic; Unspecified Dementia Unspecified Severity Without Behavioral Disturbance 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); Ataxia 09/06/2023 1:15 PM CDT - 09/06/2023 11:59 PM CDT Hospital Encounter Department of Laboratory Medicine and Pathology, [facility] in [place], [place] [address] [place] [address] Claudia Garcia M.D. Marginal Zone Lymphoma Splenic (HCC) Discharge Disposition: Home or Self Care 09/05/2023 Orders Only Department of Oncology in [place], [place] [address] [place] [address] Minerva Albarran M.D. Marginal Zone Lymphoma Splenic (HCC) (Primary Dx) 09/03/2023 Clinical Communication Department of [address]atology [address] [place] [address] Italia Valdez R.N. ARF REFERRAL 08/28/2023 [facility] [address] [place] [address] Gisele Curran M.D. Psoriasis (Primary Dx); Nonscarring Hair Loss Unspecified; Cancer Skin Basal Cell Personal History 08/14/2023 [facility] [address] [place] [address] Gisele Curran M.D. Basal Cell Skin Cancer (Primary) NOS (Primary Dx) 08/10/2023 [facility] [address] [place] [address] Gisele Curran M.D. Malignant Neoplasm Of Skin Basal Cell Carcinoma (Primary Dx) 08/08/2023 Clinical Communication Department of Dermatology in [place], [place] [address] [place] [address] Carl Oneal M.D. Referral from Last 3 Months Allergies No known [...] eyes 2 (two) times a day. Active acetaminophen (TYLENOL) 500 mg tablet Take 500 mg by mouth as needed. Active vitamin B-12 1,000 mcg tablet Take 1,000 mcg by mouth daily. 04/08/2023 Active thiamine (Vitamin B-1) 100 mg tablet Take 1 tablet by mouth daily. 07/27/2023 Active Hospital, Clinic, or Other Facility Administered Medication Ordered Dose Route Frequency Start Date End Date Status vftsuhoenjn-cxuunnedr-ZOSDIDN rine 0.25%-1%-1:200,000 injection 2-25 mLIndications:Squamous Cell Carcinoma [...] Thrive Adult 04/02/2023 Anxiety Disorder Unspecified 03/22/2023 Unspecified Dementia Unspeci fied Severity Without Behavioral [...] 04/12/2023 Hypokalemia 04/05/2023 04/12/2023 Diverticulitis 03/22/2023 04/12/2023 Parkinsonism Unspecified 04/13/2022 Overview (12/01/2022): Diagnosis Maintenance Updates Abnormal Gait Non Orthopedic 04/13/2022 04/12/2023 Prolapse Uterovaginal 06/27/20062023 Herpes Zoster Positive Eye Complication 07/23/2003 04/12/2023 Migraine Headache 08/02/2002 04/12/2023 Overview (04/12/2023): Migraine Without Aura Immunizations Name Administration Dates Next Due DTP 05/23/1989 DTaP (Infanrix, Tripedia) 08/10/1999 HZV (ZOSTAVAX) 09/23/2009 Influenza high dose QV(65 ye ars or older) (PF) 11/29/2022,12/06/2021,12/01/2020,2019 PCV13 01/02/2018 PPSV23 12/21/2010 RZV (SHINGRIX) 07/17/2018 SARS-COV-2 (COVID-19) - PFIZ ER BIVALENT TS(Discontinued)(12 YEARS OR OLDER) 09/26/2021 Td Preservative Free (TENIVA C, DECAVAC) 06/12/2006 Tdap 07/17/2018 influenza vaccine quad (FLUZONE/FLUARIX) (6 months and older)(PF) 01/02/2018,12/11/2016,01/08/2014,2011,12/21/2010,01/18/2010,12/04/2008,1 ,12/05/2006,12/18/2005, 003,01/04/2000 Social History Tobacco Use Types Packs/Day Years Used Date Smoking Tobacco: Former Cigarettes 0.3 14 0 09/04/1961 - 09/05/1975 Pipe Passive Smoke Exposure: Never Smokeless Tobacco: Never Comments:Havent smoked since 1975 Alcohol Use Standard Drinks/Week Comments Yes 1 (1 standard drink = 0.6 oz pure alcohol) approximately 1-2 servings of alcohol per 1-2 weeks. [facility] Utilities Answer Date Recorded In the past 12 months has e [employer], gas, oil, or water Spoke threatened to shut off services in your [...] often do you attend chur ch or jain services? More than 4 times per year 12/07/2021 Do you belong to any clubs o r organizations such as rastafari groups, unions, fraternal or athletic groups, or [...] Recorded PHQ-2 Score 0 06/12/2021 [facility] - Occupational [...] 27) 5 06/12 Nutrition Answer Date Recorded On average, how many serving s of fruits and vegetables do you eat per day (serving size is equal to 1 cup or approximately the size of a tennis ball)? 0-2 05/28/2023 Dental Answer Date Recorded Dental: Regular Dentist Yes 09/22/19 Employment Answer Date Recorded Employment status Retired 05/28/2023 Housing Stability Answer Date Recorded What is your living situation today? I have a [facility] place to live 05/31/2023 Education Answer Date [...] Sign Reading Time Taken Comments Blood Pressure 145/81 09/06/2023 3:29 PM CDT Pulse 80 09/06/2023 3:29 PM CDT Temperature 35.9 ??C (96.6 ??F) 09/06/2023 3:29 PM CD T Respiratory Rate 18 05/04/2023 1:06 PM GRUBBER Oxygen Saturation 97% 04/23/2023 11:45 AM GRUBBER Inhaled Oxygen Concentration - - Weight 56.7 kg (125 lb) 09/06/2023 3:29 PM CDT Height 149.4 cm (4' 10.82) 09/06/2023 3:29 PM C DT Body Mass Index 25.4 09/06/2023 3:29 PM CDT Plan of Treatment Upcoming Encounters Date Type Department Care Team (Late st Contact Info) Description 10/24/2023 1:00 PM CDT Comprehensive Visit Department of Neurology in [place], [place] [address] [place] [address] Cristy Avery M.D., M.H.S. [address] [place] [phone] 11/21/2023 2:15 PM CDT Appointment Department of Radiology, [facility] in [place], [place] [address] [place] [address] Minerva Albarran M.D. [address] [place] [phone] Medical Devices Implanted Type Area Customer Contact Specialist Device Identifier Shelf Expiration Date Model / Serial / Lot Breast Imaging Markers Imaging Marker Bilateral: Breast Total Left Knee Replacement Knee Implant Left: Knee Cataract Lenses-Bilatera l Ocular Lens Bilateral: Eye Procedures Procedure Name Priority Date/Time Associated Diagnosis Comments MR BRAIN WITHOUT AND WITH IV CONTRAST RAD - Routine (most inpatients and all outpatients) 10/11/2023 1:11 PM CDT Encephalopathy Metabolic Unspecified Dementia Unspecified Severity Without Behavioral Disturbance 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) Ataxia PET CT SKULL TO THIGH RAD - Routine (most inpatients and all outpatients) 09/18/2023 4:12 PM CDT 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) DERMATOLOGY IMAGE EXAM Routine 09/18/2023 12:00 AM CDT LEUKEMIA/LYMPHOMA PHENOTYPE, B Routine 09/06/2023 1:43 PM CDT Marginal Zone Lymphoma Splenic (HCC) LACTATE DEHYDROGENASE (LD), S Routine 09/06/2023 1:43 PM CDT Marginal Zone Lymphoma Splenic (HCC) COMPREHENSIVE METABOLIC PANEL, S/P Routine 09/06/2023 1:43 PM CDT Marginal Zone Lymphoma Splenic (HCC) CBC WITH DIFFERENTIAL, B Routine 09/06/2023 1:43 PM CDT Marginal Zone Lymphoma Splenic (HCC) from Last 3 Months Results * MR Brain without and with IV Contrast (10/11/2023 1:11 PM CDT) Anatomical Region Laterality Modality Head, Brain, Neuroradiology RST LOS, Neuroradiology ARZ LOS, Neuroradiology FLA LOS N/A Magnetic Resonance Impressions 10/11/2023 1:26 PM CDT No acute intracranial abnormalities. Examination is unchanged compared with prior study of March 2023. Generalized cerebral and cerebellar volume loss. Narrative 10/11/2023 1:26 PM CDT EXAM: MR BRAIN WITHOUT AND WITH IV CONTRAST COMPARISON: PET/CT September 18, 2023, MRI head March 2023 and MRI the head June 13, 2021 FINDINGS: Stable examination. There are no acute intracranial abnormalities. Stable generalized cerebral and cerebellar volume loss including mild volume loss within the brainstem and brachium pontine bilaterally. No evidence of pathologic intracranial enhancement. Stable empty sella turcica. Stable, 1 cm enhancing lesion right parietal bone. Stable relatively symmetric scattered T2 areas of signal abnormality within both cerebral hemispheres likely representing microvascular changes. Procedure Note Ruben Reyes M.D. - 10/11/2023 EXAM: MR BRAIN WITHOUT AND WITH IV CONTRAST COMPARISON: PET/CT September 18, 2023, MRI head March 2023 and MRI the headApr2021 FINDINGS: Stable examination. There are no acute intracranialabnormalities. Stable generalized cerebral and cerebellar volume lossincluding mild volume loss within the brainstem and brachium pontinebilaterally. No evidence of pathologic intracranial enhancement. Stable empty sella turcica. Stable, 1 cm enhancing lesionright parietal bone. Stable relatively symmetric scattered T2 areas ofsignal abnormality within both cerebral hemispheres likely representingmicrovascular changes. IMPRESSION: No acute intracranial abnormalities. Examination is unchanged comparedwith prior study of March 2023. Generalized cerebral and cerebellarvolume loss. Minerva CHAPA MRI PROCEDURES * PET CT Skull to Thigh FDG (09/18/2023 4:12 PM CDT) Anatomical Region Laterality Modality Body, Nuclear Medicine PET R ST LOS, PET ARZ LOS, Nuclear Medicine PET FLA LOS, Nuclear Medicine N/A Positron Emission Tomography (PET), Positron Emission Tomography (PET) Impressions 09/18/2023 4:05 PM CDT Small focus of increased uptake in the thyroid gland is new. Ultrasound is recommended for further evaluation. No other suspicious foci of tracer localization concerning for recurrent lymphoma. Deauville score equals 2, thyroid nodule. Otherwise Deauville score equals 1. Narrative 09/18/2023 4:05 PM CDT EXAM: ??PET CT SKULL TO THIGH FDG Serum glucose at time of F-18 FDG injection was Serum glucose at time of F-18 FDG injection was 91 mg/dL. Patient followed standard dietary/fasting requirements for this exam. RADIOPHARMACEUTICAL/MEDS: Route: intravenous fludeoxyglucose F 18 injection RESIDENTIAL (FDG F-18),3.19 millicurie TECHNIQUE: ??F-18 FDG PET/CT scan was performed from the orbits through the thighs with low dose, non-contrast, free-breathing CT images for attenuation correction and anatomic localization (AC/AL), with imaging beginning at approximately 60 minutes after radiotracer injection. COMPARISON: ??PET/CT 05/25/2023. 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 Rituxan chemotherapy. Subsequent treatment strategy. The patient reports no recent vaccinations. FINDINGS: ??Subcentimeter focus of tracer localization in the region of the inferior LEFT thyroid gland is new since prior study, image 97. Ultrasound is recommended for further evaluation. Screen capture provided. Low-level uptake in the inferior LEFT parotid region 7 mm lymph node, SUV max 2.8 compared to blood pool blood pool uptake, SUV max of 2.3, image 76. This node was present previously, but the uptake is new. I suspect the uptake is reactive. Tiny focus of tracer localization in the subdermal soft tissues of the upper RIGHT arm laterally is new from prior study and may be due to prior injection. Degenerative uptake both knees and shoulders and in the lumbar spine. The FDG distribution is otherwise normal. Specifically normal splenic and bone marrow uptake. No suspicious lymph node uptake. Additional CT findings: Scattered vascular calcifications including the coronary arteries. LEFT TKA. Old posterior rib fractures. Degenerative changes lumbar spine. Hysterectomy. Procedure Note Alexi Casper M.D. - 09/18/2023 EXAM: PET CT SKULL TO THIGH FDG Serum glucose at time of F-18 FDG injection was Serum glucose at time ofF-18 FDG injection was 91 mg/dL. Patient followed standard dietary/fastingrequirements for this exam. RADIOPHARMACEUTICAL/MEDS: Route: intravenous fludeoxyglucose F 18 injection RESIDENTIAL (FDG F-18),3.19 millicurie TECHNIQUE: F-18 FDG PET/CT scan was performed from the orbits through thethighs with low dose, non-contrast, free-breathing CT images forattenuation correction and anatomic localization (AC/AL), with imagingbeginning at approximately 60 minutes after radiotracer injection. COMPARISON: PET/CT 05/25/2023. 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 Subsequent treatment strategy. The patient reports no recent vaccinations. FINDINGS: Subcentimeter focus of tracer localization in the region of theinferior LEFT thyroid gland is new since prior study, image 97. Ultrasoundis recommended for further evaluation. Screen capture provided. Low-leveluptake in the inferior LEFT parotid region 7 mm lymph node, SUV max 2.8 compared to blood pool bloodpool uptake, SUV max of 2.3, image 76. This node was present previously,but the uptake is new. I suspect the uptake is reactive. Tiny focus of tracer localization in the subdermal soft tissues of theupper RIGHT arm laterally is new from prior study and may be due to priorinjection. Degenerative uptake both knees and shoulders and in the lumbarspine. The FDG distribution is otherwise normal. Specifically normal splenic andbone marrow uptake. No suspicious lymph node uptake. Additional CT findings: Scattered vascular calcifications including thecoronary arteries. LEFT TKA. Old posterior rib fractures. Degenerativechanges lumbar spine. Hysterectomy. IMPRESSION: Small focus of increased uptake in the thyroid gland is new. Ultrasound isrecommended for further evaluation. No other suspicious foci of tracerlocalization concerning for recurrent lymphoma. Deauville score equals 2, thyroid nodule. Otherwise Deauville score equals1. Minerva Albarran M.D. IM NM PROCEDURES * Chest 521-Dermatology Image Exam (09/18/2023 12:00 AM CDT) Narrative [facility] - 09/18/2023 4:07 PM CDT This order has been created and auto-finalized to support the import of images acquired without order. The clinical documentation to support these images can be found on the encounter that produced images. Provider Not In System IMG NON RAD IMAGI NG PROCEDURES [facility] NA * Leukemia/Lymphoma Immunophenotyping by Flow Cytometry, Blood (09/06/2023 1:43 PM CDT) LCMSB Result Performed 09/07/2023 5:15 PM CDT DTL Final Diagnosis: Peripheral blood, flow cytometric immunophenotyping: Normal immunophenotyping results. ??No monotypic B-cell population or increase in blasts identified. Absence of JF75-uzsodcdq B-cells. A prior positive bone marrow flow cytometry study is noted ([id number];04/06/2023 ). Reviewed by: Tosha Swenson M.D., Ph.D. 09/07/2023 5:15 PM CDT DTL Special Studies: WBC: ??3.9 x 10(9)/L %Lymphs (CBC/automated differential): ??26% #Lymphs (CBC/automated differential): ??1.0 x 10(9)/L Results: Blasts: ??Not increased by CD45/side scatter and CD34. B-cells: ??Absence of ZI69-whmulbsu B cells. ??B-cell markers tested: CD10, CD19 and kappa and lambda surface light chains. T-cells/NK-cells: ??No aberrant phenotype by CD3 and CD16. Quality Assessment: ??Specimen received within validated guidelines. 09/07/2023 5:15 PM CDT DTL Microscopic Description A Hhwdkh-Jmstdp-lqovkj d slide prepared from the flow cytometry specimen is examined. ??No morphologic features of acute leukemia or lymphoma are identified. 09/07/2023 5:15 PM CDT DTL Comment: ----ADDITIONAL INFORMATION---- This test was developed using an analyte specific reagent. Its performance characteristics were determined by [facility] in a manner consistent with CLIA requirements. This test has not been cleared or approved by the U.S. Food and Drug Administration. Blood (Blood, Venous) 09/06/2023 1:43 PM CDT 09/06/2023 5:07 PM CDT Minerva Albarran M.D. LAB GENETIC TESTING [facility] [address] [place] [address], [facility] DTL [address] [facility] [address] [place] [address] * CBC with Differential, Blood (09/06/2023 1:43 PM CDT) Pathologist [facility] [place] Hemoglobin 13.3 11.6 - 15.0 g/dL 09/06/2023 2:08 PM CDT DTL Hematocrit 41.7 35.5 - 44.9 % 09/06/2023 2:08 PM CDT DTL Erythrocytes 4.28 3.92 - 5.13 x10(12)/L 09/06/2023 2:08 PM CDT DTL MCV 97.4 78.2 - 97.9 fL 09/06/2023 2:08 PM CDT DTL RBC Distrib Width 14.5 12.2 - 16.1 % 09/06/2023 2:08 PM CDT DTL Platelet Count 161 157 - 371 x10(9)/L 09/06/2023 2:08 PM CDT DTL Leukocytes 4.9 3.4 - 9.6 x10(9)/L 09/06/2023 2:08 PM CDT DTL Neutrophils 3.23 1.56 - 6.45 x10(9)/L 09/06/2023 2:08 PM CDT DHPM Lymphocytes 1.21 0.95 - 3.07 x10(9)/L 09/06/2023 2:08 PM CDT DTL Monocytes 0.40 0.26 - 0.81 x10(9)/L 09/06/2023 2:08 PM CDT DTL Eosinophils 0.05 0.03 - 0.48 x10(9)/L 09/06/2023 2:08 PM CDT DTL Basophils <0.03 0.01 - 0.08 x10(9)/L 09/06/2023 2:08 PM CDT DTL Blood (Blood, Venous) 09/06/2023 1:43 PM CDT 09/06/2023 2:02 PM CDT Claudia Garcia M.D. LAB BLOOD ADD-ON Performing Organization Address City/[facility]/ZIP Co de Phone Number [facility] [address] [facility] [address] [place] [address] * (ABNORMAL) LD (Lactate Dehydrogenase) (09/06/2023 1:43 PM CDT) Lactate Dehydrogenase (LD), S 231(H) 122 - 222 U/L 09/06/2023 2:38 PM CDT DTL Blood (Blood, Venous) 09/06/2023 1:43 PM CDT 09/06/2023 2:16 PM CDT Claudia Garcia M.D. LAB BLOOD NON ADD-ON Performing Organization Address City/[facility]/ZIP Co de Phone Number [facility] [address] [place] [address], [facility] [place] [address] * (ABNORMAL) Comprehensive Metabolic Panel (09/06/2023 1:43 PM CDT) Pathologist [facility] [place] Potassium, S 4.2 3.6 - 5.2 mmol/L 09/06/2023 2:38 PM CDT DTL Sodium, S 142 135 - 145 mmol/L 09/06/2023 2:38 PM CDT DTL Chloride, S 105 98 - 107 mmol/L 09/06/2023 2:38 PM CDT DTL Bicarbonate, S 28 22 - 29 mmol/L 09/06/2023 2:38 PM CDT DTL Anion Gap 9 7 - 15 09/06/2023 2:38 PM CDT DTL BUN (Blood Urea Nitrogen), S 15 6 - 21 mg/dL 09/06/2023 2:38 PM CDT DTL Creatinine 1.00 0.59 - 1.04 mg/dL 09/06/2023 2:38 PM CDT DTL Estimated GFR (eGFR) 56(L) >=60 mL/min/BS A 09/06/2023 2:38 PM CDT DTL Comment: Estimated GFR calculated using the 2020 CKD_EPI creatinine equation. Calcium, Total, S 9.2 8.8 - 10.2 mg/dL 09/06/2023 2:38 PM CDT DTL Glucose, S 112 70 - 140 mg/dL 09/06/2023 2:38 PM CDT DTL Protein, Total, S 6.3 6.3 - 7.9 g/dL 09/06/2023 2:38 PM CDT DTL Albumin, S 4.1 3.5 - 5.0 g/dL 09/06/2023 2:38 PM CDT DTL Aspartate Aminotransferase (AST), S 24 8 - 43 U/L 09/06/2023 2:38 PM CDT DTL Alkaline Phosphatase, S 84 35 - 104 U/L 09/06/2023 2:38 PM CDT DTL Alanine Aminotransferase (ALT), S 17 7 - 45 U/L 09/06/2023 2:38 PM CDT DTL Bilirubin, Total, S 0.3 0.0 - 1.2 mg/dL 09/06/2023 2:38 PM CDT DTL Blood (Blood, Venous) 09/06/2023 1:43 PM CDT 09/06/2023 2:16 PM CDT Claudia Garcia M.D. LAB BLOOD ADD-ON [facility] [address] [place] [address], [place] DTL [facility] [address] [place] [address] from Last 3 Months Additional Health Concerns Infection Onset Date Last Indicated Protective Environment 04/12/2023 Advance Directives For more information, please contact: [phone] * DNR (Latest Code Status on File) Date Activated Date Inactivated Comments 04/02/2023 4:50 PM 04/23/2023 2:38 PM * Full Code Date Activated Date Inactivated Comments 04/02/2023 3:47 PM 04/02/2023 4:50 PM Question Answer Comments Full Code: Not Discussed Due to: Patient does not have the murfreesboroi ty Care Teams Roads And Parking Lots Sweeper Operator Relationship Specialty Start Date End Date Elsewhere, Pcp PCP - General Internal Medicine 05/10/21
--- OUTSIDE RECORDS SUMMARY | 2023-10-23 13:53 | XMS_ITS | Data Portability ---
Author Organization JUAN Fidelina Randy vanessa Seo, zCLSD_SHMG_ENDO_THOMAS_MOBILE [facility] Address [address] [place] [address] Care Team Providers Care Rock Crushing Machine Operator Name Role Phone STEVEN JOE Primary Care Provider [phone] Assessment No assessment recorded. Plan of Treatment Reminders Order Date Submit Date Provider Last Modified By Organization Details Last Modified Time Details Appointments None recorded. Lab CBC w/ auto diff 2023 024 [facility] (Lab), [address], [place], [address], 4 18:06:19 CMP, serum or plasma 2023 024 [facility] (Lab), [address], [place], [address], 4 18:06:20 Referral gastroenter ologist referral 2023 024 [facility] Sh[facility], [address] [place] [address], [place], [address], 4 18:18:23 home health referral [email or web address], [address] [place] [address], [address], 4 10:30:52 Procedures None recorded. Surgeries None recorded. Imaging US, abdomen, limited 2023 024 [facility] (Radiology-Sc heduling), [address], [place], [address], 18:07:01 Medication Orders escitalopra m 20 mg tablet [address] [facility] #[id number], [address] [facility], [place], [address], 15:39:30 Patient TargetsNo targets recorded. Patient Instructions Encounter Date Encounter Id Patient Instructions Last Modified By Organization Details Last Modified Time 03/23/2023 [id number] Reviewed hospita l records in office today Complete course of antibiotics Discussed bland diet and supplements like Boost Home Health for PT strength training GI referral Order for labs and US in 2 weeks to follow up splenomegaly (likely secondary to COVID) Additional ER precautions discussed Fall precautions discussed Follow up in 2 weeks [email or web address] Not available 03/23/2023 12:41:51 03/30/2023 [id number] Increase lexapro to 20mg Discussed appetite and small frequent meals OTC Boost supplementation Continue PT as ordered Additional ER precautions discussed Follow up in 1 week [email or web address] Not available 03/30/2023 15:47:56 Reason for Referral Home Health Referral for Mus tomasa weakness PT for strength training Referring Physician: [facility], Encounter Date: 03/23/2023 Sensor Operator Referral for CT of abdomen abnormal Referring Physician: [facility], Encounter Date: 03/23/2023 Results Created Date Observation Date Name Description Value Unit Range Abnormal Flag Note LastModifiedBy Organization Detail LastModifiedTime 03/23/19 24 03/17/2023 elect rocar diogr am No observ ation record ed. [email or web address] Not Available 2023 12:28:57 03/23/19 24 03/17/2023 elect rocar diogr am No observ ation record ed. [email or web address] Not Available 2023 12:28:57 03/23/19 24 03/17/2023 CT, abdom en + pelvi s, w/ contr ast No observ ation record ed. [email or web address] Not Available 2023 12:28:58 03/23/19 24 03/22/2023 jesu ospian am No observ ation record ed. Not Available 2023 12:28:58 Result Notes None recorded. Problems Name Problem SNOMED Code Status Onset Date Resolution Date Notes Provider Name and Address Organization Details Recorded Time Diverticuli tis 257388077 Active [address], [place], [address], [facility] 4 12:39:22 CT of abdomen abnormal 5506646640443 9107 Active 2023 Steven Joe PA-C [address], [place], [address], [facility] 4 12:39:23 Splenomegal y 78244054 Active 2023 Steven Joe PA-C [address], [place], [address], [facility] 4 12:39:25 Muscle weakness 84258409 Active 2023 Steven Joe PA-C [address], [place], [address], [facility] 4 12:39:26 COVID-19 966467264 Active [address], [place], [address], [facility] 4 12:39:27 Essential hypertensio n 25222928 Active 2023 Steven Joe PA-C [address], [place], [address], [facility] 4 12:39:29 Anxiety 30371604 Active 2023 Steven Joe PA-C [address], [place], [address], [facility] 12:39:30 Problem Notes None recorded. Procedures Surgical History Date Name Laterality Status Provider Name and Address Organization Details Recorded Time Colonoscopy completed Not Available [facility] 10:48:42 Orthopedic Surgery completed Not Available [employer] 03/23/2023 10:48:42 Knee arthroscopy/surg [facility]islav [facility] 11:17:58 lumpectomy of left breast [facility]2023 11:18:11 hammer toe operation completed Cristy Shwetha david [facility] 03/23/2023 11:18:42 Imaging Results Imaging Date Name Status LastModified by Organization Details LastModified Time 03/17/2023 electrocardiogram completed [email or web address] Informa tion not available 03/23/2023 12:28:57 03/17/2023 electrocardiogram completed [email or web address] Informa tion not available 03/23/2023 12:28:57 03/17/2023 CT, abdomen + pelvis, w/ contrast completed Information not available 03/23/2023 12:28:58 03/22/2023 electrocardiogram completed [email or web address] Informa tion not available 03/23/2023 12:28:58 Procedure [...] Address Organization Details Last Updated DateTime 4 64535 g 99.4 [degF] 96 /min 96 % 96 % 14 /min 132 mm[Hg] 78 mm[Hg] Cristy Tadeo [facility] 4 11:10:39 Date Recorded Body mass index (BMI) Body height Provider Name and Address Organization Details Last Updated DateTime 03/23/2023 24.2 kg/m2 149.86 cm Delvis Gomez [facility] 03/23/2023 11:02:50 Date Recorded Body height Body temperature Oxygen saturation Oxygen saturation in Arterial blood by Pulse oximetry Heart rate Systolic blood pressure Diastolic blood pressure Provider Name and Address Organization Details Last Updated DateTime 4 149.86 cm 99.3 [degF] 97 % 97 % 75 /min 128 mm[Hg] 70 mm[Hg] Cristy Tadeo [facility] 4 15:15:52 Social History Question Answer [...] influenza, unspecified formulation 10/30/2022 completed Cristy david, [place] [facility] [place] [facility] 03/23/2023 11:15:40 SARS-COV-2 (COVID-19) vaccine, UNSPECIFIED 06/28/2020 completed Cristy david, [facility] 03/23/2023 11:16:06 SARS-COV-2 (COVID-19) vaccine, UNSPECIFIED 08/02/2020 completed Cristy david, [facility] 03/23/2023 11:16:30 COVID-19, mRNA, LNP-S, bivalent, PF, 30 mcg/0.3 mL dose 09/26/2021 completed Not Available [facility] 03/29/2023 00:25:13 COVID-19, mRNA, LNP-S, bivalent, PF, 30 mcg/0.3 mL dose 02/07/2023 completed Cristy david, [facility] 03/23/2023 11:17:37 Past Encounters Encounter ID Performer Location Encounter Start Date Encounter Closed Date Diagnosis/Indication Diagnosis SNOMED-CT Code [id number] Steven Joe PA-C SHMG_PC_D MPK [address] [place] [address] 03/23/2023 10:21:19 03/23/2023 12:08:[address] of abdo men abnormal 418002400234440 07 Splenomegaly 53726545 Muscle weakness 27556813 COVID-19 068758512 Essential hypertension 78877999 Anxiety 55257224 Nausea and vomiting 1693 1999 [id number] Steven Joe PA-C SHMG_PC_D MPK [address] [facility] [place] [address] 03/30/2023 15:06:21 03/30/2023 16:13:24 Decrease in appetite 28289450 Depressive disorder 3548 9007 Diverticulitis 379505544 Splenomegaly 61895555 Health Concerns Section Related Observation LastModified by Organization Detai ls LastModified Time None Recorded Concern Status LastModified by Organization Details LastModified Time None Recorded Advance Directives Directive Y: Payers Encounter Date Sequence Insurance Name Policy Number Policy Olivo Covered Member ID Olivo Member ID Guarantor Name 03/23/2023 2 MEDICA (MEDICARE SUPPLEMENT) Darcy Colon [id number] Darcy Colon 03/23/2023 1 MED[employer] (MEDICARE REPLACEMENT/ ADVANTAGE - PFFS) Darcy Colon [id number] Darcy Colon 03/30/2023 1 [employer] (MEDICARE REPLACEMENT/ ADVANTAGE - PFFS) Darcy Colon [id number] Darcy Colon Notes Date Note Type Note Provider Name and Address Organization Details Recorded Time 03/23/2023 text/html HPI Notes: AUTO BODY CUSTOMIZER to establish Prior PCP: Arlin PMHx: HTN, [...] home. Her is her primary caregiver. From [place]- returning in April Review of records showed diverticulitis with CT but that underlying malignancy could not be ruled out. Steven Joe PA-C [address] [place] [address], [address], [place] - [place] - [facility] 03/23/2023 12:44:01 03/30/2023 text/html HPI Notes: Marcia [...] coming 3x's/week. Steven Joe PA-C [address], [place], [address], [place] - [facility] 03/30/2023 15:48:53 OBGyn Episode No OBEpisode recorded.
--- OUTSIDE RECORDS SUMMARY | 2023-10-23 13:53 | XMS_ITS | Continuity of Care Document ---
Author Organization [facility] Address [address] [place] [address] Phone Care Team Providers Care Heel Painter Name Role Phone Unavailable Unavailable Unavailable Advance Directives Directive Yes / No Effective Date File Name No Information Encounters Encounter Description Practice Location Reason(s) For Visit Diagnoses Date Provider Providers Copied on Encounter [facility] [place], [address], [place], [address], [place] tel:[phone] [employer] No Information 0 [id number] 1 No Information [...]
--- OUTSIDE RECORDS SUMMARY | 2023-10-23 13:53 | XMS_ITS | Clinical Summary ---
Author Organization [facility] Address [address] [place] [address] Care Team Providers Care Disc Pad Grinding Machine Feeder Name Role Phone Elsewhere, Pcp Primary Care Provider Unavailabl e Source Comments Patient records contain information from all sites at [facility]. For routine questions regarding patient records, call [phone] during business hours, M-F 8:00 AM - 5:00 PM Central Time. Record requests for emergency care only can be directed to [phone] at any time.[facility] Allergies No known active allergies Medications [...] Route Frequency Start Date End Date Status ahcvnstisyx-cqfvrgady-GVTJOLD rine 0.25%-1%-1:200,000 injection 2-25 mLIndications:Squamous Cell Carcinoma [...] 08/02/2002 04/12/2023 Overview (04/12/2023): Migraine Without Aura Encounters Date Type Department Care Team Description 10/15/2023 2:45 PM CDT Clinical Communication Virtual Review in [address] [address] Pre-visit Intake 10/11/2023 11:17 AM CDT - 10/11/2023 11:59 PM CDT [facility] [address] [address] Minerva Albarran M.D. 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 Nodule Thyroid (Primary Dx) 09/18/2023 2:01 PM CDT - 09/18/2023 11:59 PM CDT [facility] [address] [address] Minerva Albarran M.D. 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) Discharge Disposition: Home or Self Care 09/18/2023 11:00 AM CDT Comprehensive Visit Department of Dermatology in [address] [address] Shannon Murray M.B.B.SAdalid Dermatoheliosis (Primary Dx); Nonscarring Hair Loss Unspecified; Cancer Skin Basal Cell Personal History; Telogen Effluvium; Screening Examination Skin Cancer; Keratosis Actinic; Angioma Chiang; Personal History Of Other Malignant Neoplasm Of Skin; Tumor Skin Uncertain Behavior Discharge Disposition: Home or Self Care 09/18/2023 Ancillary Procedure Department of Dermatology 09/06/2023 3:45 PM CDT Office Visit Division of Hematology in [place], [place] [address] [place] [address] Minerva Albarran M.D. Marginal Zone Lymphoma Splenic (HCC) (Primary Dx); Encephalopathy Metabolic; Unspecified Dementia Unspecified Severity Without Behavioral Disturbance 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); Ataxia 09/06/2023 1:15 PM CDT - 09/06/2023 11:59 PM CDT Hospital Encounter Department of Laboratory Medicine and Pathology, [facility] in [place], [place] [address] [place] [address] Claudia Garcia M.D. Marginal Zone Lymphoma Splenic (HCC) Discharge Disposition: Home or Self Care 09/05/2023 Orders Only Department of Oncology in [place], [place] [address] [place] [address] Minerva Albarran M.D. Marginal Zone Lymphoma Splenic (HCC) (Primary Dx) 09/03/2023 Clinical Communication Department of Dermatology in [place], [place] [address] [place] [address] Italia Valdez R.N. ARF REFERRAL 08/28/2023 [facility] [address] [place] [address] Gisele Curran M.D. Psoriasis (Primary Dx); Nonscarring Hair Loss Unspecified; Cancer Skin Basal Cell Personal History 08/14/2023 [facility] [address] [place] [address] Gisele Curran M.D. Basal Cell Skin Cancer (Primary) NOS (Primary Dx) 08/10/2023 [facility] [address] [place] [address] Hernberg, Gisele S, M.D. Malignant Neoplasm Of Skin Basal Cell Carcinoma (Primary Dx) 08/08/2023 Clinical Communication Department of Dermatology in [place], [place] [address] [place] [address] Carl Oneal M.D. Referral from Last 3 Months Immunizations Name Administration [...] Reeves Dementia Father Gil Avendano at 74 Migraines Mother Sanjana Breast cancer Sister 1 Karol Nash Depression Sister 2 Karol Ardon Relation Name Status Comments Brother Jovan Reeves Father Gil Avendano Mother Sanjana Sister 1 Karol De Sister 2 Karol Ardon Social History Tobacco Use Types Packs/Day Years Used Date Smoking Tobacco: Former Cigarettes 0.3 14 0 09/04/1961 - 09/05/1975 Pipe Passive Smoke Exposure: Never Smokeless Tobacco: Never Comments:Havent smoked since 1975 Alcohol Use Standard Drinks/Week Comments Yes 1 (1 standard drink = 0.6 oz pure alcohol) approximately 1-2 servings of alcohol per 1-2 weeks. [facility] Utilities Answer Date Recorded In the past 12 months has th e [employer], gas, oil, or water [employer] threatened to shut off services in your [...] often do you attend chur ch or taoism services? More than 4 times per year 12/07/2021 Do you belong to any clubs o r organizations such as yazidi groups, unions, fraternal or athletic groups, or [...] Answer Date Recorded PHQ-2 Score 0 06/12/2021 [facility] - Occupational Stress Questionnaire Answer Date [...] T Respiratory Rate 18 05/04/2023 1:06 PM PLASTIC TILE SETTER Oxygen Saturation 97% 04/23/2023 11:45 AM PLASTIC TILE SETTER Inhaled Oxygen Concentration - - Weight 56.7 kg (125 lb) 09/06/2023 3:29 PM CDT Height 149.4 cm (4' 10.82) 09/06/2023 3:29 PM C DT Body Mass Index 25.4 09/06/2023 3:29 PM CDT Plan of Treatment Upcoming Encounters Date Type Department Care Team (Late st Contact Info) Description 10/24/2023 1:00 PM CDT Comprehensive Visit Department of Neurology in [place], [place] [address] [place] [address] Cristy Avery M.D., M.H.S. [address] [place] [address] 11/21/2023 2:15 PM CDT Appointment Department of Radiology, [facility], in [place], [place] [address] [place] [address] Minerva Albarran M.D. [address] [place] [address] Health Maintenance Due Date Last Done Comments Zoster Vaccines (2 of 2) 09/11/2018 07/17/2018, 08/27 COVID-19 Vaccine ( season) 2023 02/15/2023, 02/07/2023, 12/06/2021, Additional history exists Influenza Vaccine (#1) 2023 , 12/06/2021, 12/01/2020, Additional history exists Office Visit for Blood Pressure Check / Re-check 12/07/2023 09/06/2023 DTaP,Tdap,and Td Vaccines (5 - Td or Tdap) 07/17/2028 07/17/2018, 06/12/2006, 08/10/1999, Additional history exists Pneumococcal vaccine (65+ years) Completed 01/02/2018, 12/21/2010 Fall Risk Screen (Annual) Completed 04/27/2023 HPV Vaccines Aged Out No longer eligi ble based on patient's age to complete this topic Medical Devices Implanted Type Area Supervisor Roller Printing Device Identifier Shelf Expiration Date Model / [...] Neuroradiology RST LOS, Neuroradiology ARZ LOS, Neuroradiology [facility] N/A Magnetic Resonance Impressions 10/11/2023 1:26 PM [...] 2023. Generalized cerebral and cerebellarvolume loss. Minerva Albarran M.D. Manjula MRI PROCEDURES * PET CT Skull to Thigh FDG (09/18/2023 4:12 PM CDT) Anatomical Region Laterality Modality Body, Nuclear Medicine PET R [facility], [facility], Nuclear Medicine PET [facility], Nuclear Medicine N/A Positron Emission Tomography (PET), [...] RADIOPHARMACEUTICAL/MEDS: Route: intravenous fludeoxyglucose F 18 injection SKILLED NURSING (FDG F-18),3.19 millicurie TECHNIQUE: ??F-18 FDG PET/CT [...] RADIOPHARMACEUTICAL/MEDS: Route: intravenous fludeoxyglucose F 18 injection SKILLED NURSING (FDG F-18),3.19 millicurie TECHNIQUE: F-18 FDG PET/CT [...] thyroid nodule. Otherwise Deauville score equals1. Minerva CHAPA NM PROCEDURES * Chest 521-Dermatology Image Exam (09/18/2023 12:00 AM CDT) Narrative IIWV - 09/18/2023 4:07 PM CDT This order has been created and auto-finalized to support the import of images acquired without order. The clinical documentation to support these images can be found on the encounter that produced images. Provider Not In System IMG NON RAD IMAGI NG PROCEDURES IIMS NA * Leukemia/Lymphoma Immunophenotyping by Flow Cytometry, Blood (09/06/2023 1:43 PM CDT) LCMSB Result Performed 09/07/2023 5:15 PM CDT DTL Final Diagnosis: Peripheral blood, flow cytometric immunophenotyping: Normal immunophenotyping results. ??No monotypic B-cell population or increase in blasts identified. Absence of CB89-qbuctnhn B-cells. A prior positive bone marrow flow cytometry study is noted ([id number];04/06/2023 ). Reviewed by: Tosha Swenson M.D., Ph.D. 09/07/2023 5:15 PM CDT DTL Special Studies: WBC: ??3.9 x 10(9)/L %Lymphs (CBC/automated differential): ??26% #Lymphs (CBC/automated differential): ??1.0 x 10(9)/L Results: Blasts: ??Not increased by CD45/side scatter and CD34. B-cells: ??Absence of DI96-tsjynbih B cells. ??B-cell markers tested: CD10, CD19 and kappa and lambda surface light chains. T-cells/NK-cells: ??No aberrant phenotype by CD3 and CD16. Quality Assessment: ??Specimen received within validated guidelines. 09/07/2023 5:15 PM CDT DTL Microscopic Description A Glbyyu-Dmkgfs-izmali d slide prepared from the flow cytometry specimen is examined. ??No morphologic features of acute leukemia or lymphoma are identified. 09/07/2023 5:15 PM CDT DTL Comment: ----ADDITIONAL INFORMATION---- This test was developed using an analyte specific reagent. Its performance characteristics were determined by [facility] in a manner consistent with CLIA requirements. This test has not been cleared or approved by the U.S. Food and Drug Administration. Blood (Blood, Venous) 09/06/2023 1:43 PM CDT 09/06/2023 5:07 PM CDT Minerva Albarran M.D. LAB GENETIC TESTING [facility] [address] [place] [address], [facility] DTL [address] [place] [address] * CBC with Differential, Blood (09/06/2023 1:43 PM CDT) Hemoglobin 13.3 11.6 - 15.0 g/dL 09/06/2023 [...] M.D. LAB BLOOD ADD-ON Performing Organization Address City/[facility]/ZIP Co de Phone Number [facility] [address] [place] [address], [facility] [address] [place] [address] [facility] [address] [place] [address] * (ABNORMAL) LD (Lactate Dehydrogenase) (09/06/2023 1:43 PM CDT) Lactate Dehydrogenase (LD), S 231(H) 122 - 222 U/L 09/06/2023 2:38 PM CDT DTL Blood (Blood, Venous) 09/06/2023 1:43 PM CDT 09/06/2023 2:16 PM CDT Claudia Garcia M.D. LAB BLOOD NON ADD-ON Performing Organization Address City/[facility]/ZIP Co de Phone Number [facility] [address] [place] [address], [facility] [address] [place] [address] * (ABNORMAL) Comprehensive Metabolic Panel (09/06/2023 1:43 PM CDT) Potassium, S 4.2 3.6 - 5.2 mmol/L [...] Claudia Garcia M.D. LAB BLOOD ADD-ON [facility] [address] [place] [address], [facility] DTL [facility] [address] [place] [address] from Last 3 Months Additional Health Concerns Infection Onset Date Last Indicated Protective Environment 04/12/2023 Advance Directives For more information, please contact: [phone] * DNR (Latest Code Status on File) Date Activated Date Inactivated Comments 04/02/2023 4:50 PM 04/23/2023 2:38 PM * Full Code Date Activated Date Inactivated Comments 04/02/2023 3:47 PM 04/02/2023 4:50 PM Question Answer Comments Full Code: Not Discussed Due to: Patient does not have the [facility] Care Teams Disc Pad Grinding Machine Feeder Relationship Specialty Start Date End Date Elsewhere, Pcp PCP - General Internal Medicine 05/10/21
--- OUTSIDE RECORDS SUMMARY | 2023-10-23 13:54 | XMS_ITS | Encounter Summary ---
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 [address] [place] [address] [facility] Referral ID Status Reason Start Date Expiration Date Visits Re quested Visits Authorized [id number] Closed 09/06/2023 09/05/2024 1 1 Encounter Details Date Type Department Care Team (Latest Contact Info) Description 09/18/2023 2:01 PM CDT - 09/18/2023 11:59 PM CDT Hospital Encounter Department of Radiology, [facility], in [place], [place] [address] [place] [address] Minerva Albarran M.D. [address] [place] [address] Marginal Zone Lymphoma Splenic (HCC); Extranodal Marginal [...] 1-2 servings of alcohol per 1-2 weeks. [facility] [employer] Answer Date Recorded In the past 12 months has [employer] gas, oil, or water [employer] threatened to shut off services in your [...] often do you attend chur ch or sikh services? More than 4 times per year 12/07/2021 Do you belong to any clubs o r organizations such as baptism groups, unions, fraternal [...] Answer Date Recorded PHQ-2 Score 0 06/12/2021 [facility] Occupat ional [facility] - Occupational Stress Questionnaire Answer Date [...] your living situation today? I have a [facility] place to live 05/31/2023 Education Answer [...] Take 500 mg by mouth as needed. brimonidine (ALPHAGAN) 0.2 % ophthalmic solution Administer 1 drop into both eyes 2 (two) times a day. buPROPion XL (WELLBUTRIN XL) [...] 20 mg by mouth at bedtime. 06/18/2020 thiamine (Vitamin B-1) 100 mg tablet Take 1 tablet by mouth daily. 07/27/2023 vitamin B-12 1,000 mcg tablet Take 1,000 mcg by mouth daily. 04/08/2023 documented as of this encounter Plan of Treatment Upcoming Encounters Date Type Department Care Team (Late st Contact Info) Description 10/24/2023 1:00 PM CDT Comprehensive Visit Department of Neurology in [place], [place] [address] [place] [address] Cristy Avery M.D., M.H.S. [address] [place] [address] 11/21/2023 2:15 PM CDT Appointment Department of Radiology, [facility], in [place], [place] [address] [place] [address] Minerva Albarran M.D. 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 Minerva Albarran M.D. 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) documented in this encounter Administered Medications Inactive Administered Medications - up to 3 most recent administrations Medication Order MAR Action Action Date Dose Rate Site fludeoxyglucose F 18 injection SENIOR LIVING (FDG F-18) 4.5-16.5 millicurie, intravenous, Once, On 09/18/23 at 1500, For 1 dose, Imaging Protocol Orders Given 09/18/2023 2:26 PM CDT 3.19 millicuries documented in this encounter Additional Health Concerns Infection Onset Date Last Indicated Resolved Time Protective Environment 04/12/2023 04/12/2023 Assessment Noted Time PHQ-9 Depression Total Score: 5 06/13/19 22 6:15 PM CDT documented as of this encounter Care Teams Boilermaker Helper Relationship Specialty Start Date End Date Elsewhere, Pcp PCP - General Internal Medicine 05/10/21 documented as of this encounter
--- OUTSIDE RECORDS SUMMARY | 2023-10-23 13:54 | XMS_ITS | Encounter Summary ---
Author Organization [facility] Address [address] [place] [phone] Care Team Providers Care Commercial Designer Name Role Phone Elsewhere, Pcp Primary Care Provider Unavailabl e Reason for Referral * Outpatient (Routine) - Authorized Specialty Diagnoses / Procedures Referred By Contbi t Referred To Contact Diagnoses Nodule Thyroid Procedures US Thyroid Minerva Albarran M.D. [address] [place] [phone] [facility] Referral ID Status Reason Start Date Expiration Date V isits Requested Visits Authorized [id number] Authorized 09/21/2023 09/20/2024 1 1 Encounter Details Date Type Department Care Team (Late st Contact Info) Description 09/21/2023 Orders Only Department of Oncology in [place], [place] [address] [place] [phone] Minerva Albarran M.D. [address] [place] [phone] Nodule Thyroid (Primary Dx) Social History Tobacco Use Types Packs/Day Years Used Date Smoking Tobacco: Former Cigarettes 0.3 14 0 09/04/1961 - 09/05/1975 Pipe Passive Smoke Exposure: Never Smokeless Tobacco: Never Comments:Havent smoked since 1975 Alcohol Use Standard Drinks/Week Comments Yes 1 (1 standard drink = 0.6 oz pure alcohol) approximately 1-2 servings of alcohol per 1-2 weeks. [facility] Utilities Answer Date Recorded In the past 12 months has th e [employer], oil, or water [email or web address] threatened to shut off services in your [...] often do you attend chur ch or congregational services? More than 4 times per year 12/07/2021 Do you belong to any clubs o r organizations such as anabaptist groups, unions, fraternal [...] Answer Date Recorded PHQ-2 Score 0 06/12/2021 [facility] [place] of Occupat ional [facility] - Occupational Stress Questionnaire Answer Date Recorded [...] your living situation today? [facility] 05/31/2023 Education Answer Date [...] CDT Comprehensive Visit Department of Neurology in [place], [place] [address] [place] [address] Cristy Avery M.D., M.H.S. [address] [place] [address] 11/21/2023 2:15 PM CDT Appointment Department of Radiology, [facility], in [place], [place] [address] [place] [address] Minerva Albarran M.D. [address] [place] [phone] Scheduled Orders Name Type Priority Associated Diagnoses Orde r Schedule US Thyroid Imaging RAD - Routine (m ost inpatients and all outpatients) Nodule Thyroid Expected: 09/21/2023, Expires: 12/21/2024 documented as of this encounter Visit Diagnoses Diagnosis Nodule Thyroid- Primary documented in this encounter Additional Health Concerns Infection Onset Date Last Indicated Resolved Time Protective Environment 04/12/2023 04/12/2023 Assessment Noted Time PHQ-9 Depression Total Score: 5 06/13/19 22 6:15 PM CDT documented as of this encounter Care Teams Commercial Designer Relationship Specialty Start Date End Date Elsewhere, Pcp PCP - General Internal Medicine 05/10/21 documented as of this encounter
--- OUTSIDE RECORDS SUMMARY | 2023-10-23 13:54 | XMS_ITS | Encounter Summary ---
Author Organization [facility] Address [address] [place] [address] Care Team Providers Care Ux Manager Name Role Phone Elsewhere, Pcp Primary Care Provider Unavailabl e Reason for Referral * Outpatient (Routine) - Closed Specialty Diagnoses / Procedures Referred By Contac t Referred To Contact Dermatology Shannon Murray M.B.B.S. [address] [place] [phone] Shannon Murray M.B.B.S. [address] [place] [address] Referral ID Status Reason Start Date Expiration Date Visits Re quested Visits Authorized [id number] Closed 09/18/2023 03/19/2025 1 1 Reason for Visit * Outpatient (Routine) - Closed Specialty Diagnoses / Procedures Referred By Contac t Referred To Contact Dermatology Diagnoses Psoriasis Nonscarring Hair Loss Unspecified Cancer Skin Basal Cell Personal History Gisele Curran M.D. [address] [place] [address] [facility] Referral ID Status Reason Start Date Expiration Date Visits Re quested Visits Authorized [id number] Closed 08/28/2023 02/26/2025 1 1 Encounter Details Date Type Department Care Team (Latest Contact Info) Description 09/18/2023 11:00 AM CDT Comprehensive Visit Department of Dermatology in [place], [place] [address] [place] [address] Shannon Murray M.B.B.S. [address] [place] [address] Dermatoheliosis (Primary Dx); Nonscarring Hair Loss Unspecified; Cancer Skin Basal Cell Personal History; Telogen Effluvium; Screening Examination Skin Cancer; Keratosis Actinic; Angioma Chiang; Personal History Of Other Malignant Neoplasm Of Skin; Tumor Skin Uncertain Behavior Discharge Disposition: Home or Self Care Social History Tobacco Use Types Packs/Day Years Used Date Smoking Tobacco: Former Cigarettes 0.3 14 0 09/04/1961 - 09/05/1975 Pipe Passive Smoke Exposure: Never Smokeless Tobacco: Never Comments:Havent smoked since 1975 Alcohol Use Standard Drinks/Week Comments Yes 1 (1 standard drink = 0.6 oz pure alcohol) approximately 1-2 servings of alcohol per 1-2 weeks. [facility] [employer] Answer Date Recorded In the past 12 months has [employer], gas, oil, or water [employer] threatened to shut off services in your [...] How often do you attend chur or zoroastrianism services? More than 4 times per year 12/07/2021 Do you belong to any clubs o r organizations such as zoroastrian groups, unions, fraternal or athletic groups, or [...] Answer Date Recorded PHQ-2 Score 0 06/12/2021 [facility] of Occupat ional Health - Occupational Stress [...] your living situation today? I have a [facility] place to live 05/31/2023 Education Answer Date Recorded What is the highest level of school you have completed or the highest degree you have received? 12th grade 09/21/2020 Sex and Gender Information Value Date Recorded Sex Assigned at Female 12/07/2021 9:06 AM CDT Gender Identity Female 05/10/2021 12:15 PM CDT Sexual Orientation Straight 05/10/2021 12 :15 PM CDT documented as of this encounter Consult Notes * Gaurav Cedillo M.D. - 09/18/2023 11:00 AM CDT [address] - Outpatient Dermatology Supervised by: Shannon Murray,* Correspondence to: Shannon Murray,* SUBJECTIVE Chief Complaint/Reason for visit Alopecia History of Present Illness Ms. Darcy Colon is a 83 y.o. female who presents today, unaccompanied, for the above. Last visit: She was last seen by [place] [facility] in October 2022 for a full body skin exam At that time, she had one actinic keratosis treated with cryotherapy. Today: She describes hair loss that began a month ago in July. She says the hair comes out in clumps. She was hospitalized in March. She notices the hair loss most prominently in the posterior scalp. She has not tried any treatment options so far. She also notices dry scaly lesions on her face since March. They are along her jawline and behind her ears. She notes the lesions are pruritic. She has not tried any treatments. No other skin concerns today. Skin cancer history: 1. History of multiple non-melanoma skin cancers, treated elsewhere years ago 2. Left mid-harrell: History of invasive well-differentiated squamous cell carcinoma, status post Mohssurgery on 03/04/[address] Turner at [facility] 3. Upper central sternum: History of grade 2 squamous cell carcinoma, status post Mohs surgery on 07/02/[address] Wright at [facility] 4. Left harrell: History of squamous cell carcinoma in situ, status post electrodesiccation and curettage on 07/02/[address] Wright at [facility] 5. Left lateral neck : BCC s/p MMS 12/26/[address] Wright at [facility] OBJECTIVE Physical Examination General: Awake, alert, in no acute distress, with appropriate affect. Skin: Full examination of the body performed and revealed: Involving the scalp, there is diffuse hair thinning, consistent with telogen effluvium. [place] II skin type. Dermatoheliosis in sun exposed areas. Hypopigmented plaques with overlying scale along the jawline and behind the left ear as well as oneone the upper back consistent with inflamed seborrheic keratosis Gritty thin pink papules with overlying scale consistent with actinic keratoses on bilateral arms, chest, and left jawline Smooth light brown macule in a sun exposed distribution consistent with Lentigines Waxy stuck on papules consistent with Seborrheic keratosis on trunk Erythematous macule with surrounding scale on central chest (would like to biopsy at next visit) Bright red papule scattered diffusely across the body consistent with Chiang angiomas ASSESSMENT / PLAN #Skin cancer screening examination #Personal history of non-melanoma skin cancer, as outlined in HPI #Dermatoheliosis Sun protection, sun avoidance, the warning signs and symptoms of skin cancer, and the proper use ofsunscreens were reviewed with the patient. Recommend daily use of SPF 30+ broad spectrum sunscreen. #Actinic keratoses times 4 Given the precancerous nature of this lesion(s), treatment is medically indicated. Patient defers treatment at this times given her imaging scheduled for later today. Patient will return on October 04 for cryotherapy of these lesions. #Inflamed seborrheic keratoses I discussed and reassured the patient on the benign nature of the skin lesion(s). No treatment is required. I recommend continued observation. Should symptoms or changes develop related to this condition, I would recommend a return visit for reassessment. #Skin tumor of uncertain behavior on anterior chest I explained the patient that I would like to acquire a biopsy of these lesion(s) for evaluation by our dermatopathologists. The patient expressed understanding and agreement with this plan. Due to the patient's imaging scheduled for today, patient deferred biopsy today and will return on October 04 for biopsy. 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 Diagnosis: Telogen effluvium is a type of alopecia, or hair loss. This condition causes the hair onthe scalp to shed more than normal. This excessive shedding can be triggered by serious illness, high fever, medication or drug use, fad diet (usually low protein), / childbirth, heavy blood loss, significant emotional or physical stress, thyroid disease, among others. The loss of hair usually begins a few months after the event that causes it. Telogen effluvium does not result in baldness. The hair will eventually regrow, usually within 6 months. Work-up: Patient will try topical minoxidil, if she does not achieve adequate results we can consider laboratory testing at next visit. Treatment: Reassurance provided. Pathophysiology of telogen effluvium discussed, including the synchronization of hair follicular cycles. Discussed that we do not have great treatment options available, and need to just let the condition run its course. Topical minoxidil could be trialed, if interested. No orders of the defined types were placed in this encounter. No orders of the defined types were placed in this encounter. All questions answered. Follow-up: October 04 Gaurav Cedillo M.D. Associated attestation - Shannon Murray M.B.B.S. - 09/18/2023 12:56 PM CDT I saw and evaluated the patient, participating in the jorge portions of the service. I reviewed the resident???s note. I agree with the resident???s findings and plan. 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 Denies any new spots on skin or anything growing rapidly, tender changing or bleeding. She does have some night sweats but no fevers or persistent lymph nodes.Also has h/o NMSC. On the left lower jaw/jawline she has a few inflamed seborrheic keratoses and actinic keratoses Actinic keratoses bilateral forearms and. Erythematous macule with surrounding skin measuring about 3 mm to 3 mm on the left upper chest. Dermoscopy findings are nonspecific. Ms. Colon reported history of scratching this spot. Ms. Colon is scheduled to undergo CT scan I would like to avoid any treatment with cryotherapy or biopsy today. A follow-up visit on October 04 has been scheduled. 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 She could try using dial-sfq-otcyoxd minoxidil 5% foam. Discussed that she will need to use this consistently for about 6 months before seeing results. documented in this encounter Plan of Treatment Upcoming Encounters Date Type Department Care Team (Late st Contact Info) Description 10/24/2023 1:00 PM CDT Comprehensive Visit Department of Neurology in [place], [place] [address] [place] [phone] Cristy Avery M.D., M.H.S. [address] [place] [phone] 11/21/2023 2:15 PM CDT Appointment Department of Radiology, [facility], in [place], [place] [address] [place] [address] Minerva Albarran M.D. [address] [place] [phone] Scheduled Referrals Name Type Priority Associated Diagnoses Order Schedule Dermatology office visit (clinic) Outpatient Referral Routine Expected: 09/18/2023, Expires: 12/18/2024 documented as of this encounter Visit Diagnoses Diagnosis Dermatoheliosis- Primary Nonscarring Hair Loss Unspecified Cancer Skin Basal Cell Personal History Telogen Effluvium Screening Examination Skin Cancer Keratosis Actinic Angioma Chiang Personal History Of Other Malignant Neoplasm Of Skin Tumor Skin Uncertain Behavior documented in this encounter Additional Health Concerns Infection Onset Date Last Indicated Resolved Time Protective Environment 04/12/2023 04/12/2023 Assessment Noted Time PHQ-9 Depression Total Score: 5 06/13/19 22 6:15 PM CDT documented as of this encounter Care Teams Ux Manager Relationship Specialty Start Date End Date Elsewhere, Pcp PCP - General Internal Medicine 05/10/21 documented as of this encounter
--- OUTSIDE RECORDS SUMMARY | 2023-10-23 13:54 | XMS_ITS | Encounter Summary ---
Author Organization [facility] Address [address] [place] [address] Care Team Providers Care Supervisor Plastic Sheets Name Role Phone Elsewhere, Pcp Primary Care Provider Unavailabl e Encounter Details Date Type Department Care Team (Late st Contact Info) Description 08/14/2023 [facility] [address] [place] [address] Gisele Curran M.D. [address] [place] [address] Basal Cell Skin Cancer (Primary) NOS (Primary Dx) Social History Tobacco Use Types Packs/Day Years Used Date Smoking Tobacco: Former Cigarettes 0.3 14 0 09/04/1961 - 09/05/1975 Pipe Passive Smoke Exposure: Never Smokeless Tobacco: Never Comments:Havent smoked since 1975 Alcohol Use Standard Drinks/Week Comments Yes 1 (1 standard drink = 0.6 oz pure alcohol) approximately 1-2 servings of alcohol per 1-2 weeks. [facility] Utilities Answer Date Recorded In the past 12 months has [employer], gas, oil, or water [employer] threatened to shut off services in your [...] How often do you attend chur or voodoo services? More than 4 times per year 12/07/2021 Do you belong to any clubs o r organizations such as taoist groups, unions, fraternal [...] Answer Date Recorded PHQ-2 Score 0 06/12/2021 [facility] of Occupat ional Health - Occupational Stress [...] living situation today? I have a [facility] place to live 05/31/2023 Education Answer Date [...] CDT Comprehensive Visit Department of Neurology in [place], [place] [address] [place] [address] Cristy Avery M.D., M.H.S. [address] [place] [address] 11/21/2023 2:15 PM CDT Appointment Department of Radiology, [facility], in [place], [place] [address] [place] [address] Minerva Albarran M.D. [address] [place] [phone] documented as of this encounter Visit Diagnoses Diagnosis Basal Cell Skin Cancer (Primary) NOS- Primary documented in this encounter Additional Health Concerns Infection Onset Date Last Indicated Resolved Time Protective Environment 04/12/2023 04/12/2023 Assessment Noted Time PHQ-9 Depression Total Score: 5 06/13/19 6:15 PM CDT documented as of this encounter Care Teams Supervisor Plastic Sheets Relationship Specialty Start Date End Date Elsewhere, Pcp PCP - General Internal Medicine 05/10/21 documented as of this encounter
--- OUTSIDE RECORDS SUMMARY | 2023-10-23 13:54 | XMS_ITS | Encounter Summary ---
Author Organization [facility] Address [address] [place] [address] Care Team Providers Care Oncology Consultant Name Role Phone Elsewhere, Pcp Primary Care Provider Unavailabl e Encounter Details Date Type Department Care Team (Latest Contact Info) Description 09/06/2023 1:15 PM CDT - 09/06/2023 11:59 PM CDT Hospital Encounter Department of Laboratory Medicine and Pathology, [facility] in [place], [place] [address] [place] [address] Claudia Garcia M.D. [address] [place] [address] Marginal Zone Lymphoma Splenic (HCC) Discharge Disposition: [...] 1-2 servings of alcohol per 1-2 weeks. [facility] Utilities Answer Date Recorded In the past 12 months has e [employer], gas, oil, or water [employer] threatened to shut off services in your [...] week 12/07/2021 How often do you attend [facility] or taoist services? More than 4 times per year [...] Answer Date Recorded PHQ-2 Score 0 06/12/2021 [facility] [place] of Occupat ional Health - Occupational Stress [...] your living situation today? I have a [facility] place to live 05/31/2023 Education Answer [...] CDT Comprehensive Visit Department of Neurology in [place], [place] [address] [place] [phone] Cristy Avery M.D., M.H.S. [address] [place] [phone] 11/21/2023 2:15 PM CDT Appointment Department of Radiology, [facility], in [place], [place] [address] [place] [phone] Minerva Albarran M.D. [address] [place] [phone] documented as of this encounter Procedures Procedure Name Priority Date/Time Associated Diagnosis Comments LEUKEMIA/LYMPHOMA PHENOTYPE, B Routine 09/06/2023 1:43 PM CDT Marginal Zone Lymphoma Splenic (HCC) CBC WITH DIFFERENTIAL, B Routine 09/06/2023 1:43 PM CDT Marginal Zone Lymphoma Splenic (HCC) LACTATE DEHYDROGENASE (LD), S Routine 09/06/2023 1:43 PM CDT Marginal Zone Lymphoma Splenic (HCC) COMPREHENSIVE METABOLIC PANEL, S/P Routine 09/06/2023 1:43 PM CDT Marginal Zone Lymphoma Splenic (HCC) documented in this encounter Results * Leukemia/Lymphoma Immunophenotyping by Flow Cytometry, Blood (09/06/2023 1:43 PM CDT) Pathologist [facility] LCMSB Result Performed 09/07/2023 5:15 PM CDT DTL Final Diagnosis: Peripheral blood, flow cytometric immunophenotyping: Normal immunophenotyping results. ??No monotypic B-cell population or increase in blasts identified. Absence of MI06-fneytzzm B-cells. A prior positive bone marrow flow cytometry study is noted ([id number];04/06/2023 ). Reviewed by: Tosha Swenson M.D., Ph.D. 09/07/2023 5:15 PM CDT DTL Special Studies: WBC: ??3.9 x 10(9)/L %Lymphs (CBC/automated differential): ??26% #Lymphs (CBC/automated differential): ??1.0 x 10(9)/L Results: Blasts: ??Not increased by CD45/side scatter and CD34. B-cells: ??Absence of MT39-vvimrtef B cells. ??B-cell markers tested: CD10, CD19 and kappa and lambda surface light chains. T-cells/NK-cells: ??No aberrant phenotype by CD3 and CD16. Quality Assessment: ??Specimen received within validated guidelines. 09/07/2023 5:15 PM CDT DTL Microscopic Description A Surexk-Btiwjx-efindi d slide prepared from the flow cytometry specimen is examined. ??No morphologic features of acute leukemia or lymphoma are identified. 09/07/2023 5:15 PM CDT DTL Comment: ----ADDITIONAL INFORMATION---- This test was developed using an analyte specific reagent. Its performance characteristics were determined by [facility] in a manner consistent with CLIA requirements. This test has not been cleared or approved by the U.S. Food and Drug Administration. Blood (Blood, Venous) 09/06/2023 1:43 PM CDT 09/06/2023 5:07 PM CDT Minerva Albarran M.D. LAB GENETIC TESTING Performing Organization Address City/[facility]/ZIP Co de Phone Number [address] [place] [address] * (ABNORMAL) LD (Lactate Dehydrogenase) (09/06/2023 1:43 PM CDT) Lactate Dehydrogenase (LD), S 231(H) 122 - 222 U/L 09/06/2023 2:38 PM CDT DTL Blood (Blood, Venous) 09/06/2023 1:43 PM CDT 09/06/2023 2:16 PM CDT Claudia Garcia M.D. LAB BLOOD NON ADD-ON Performing Organization Address [facility] Co de Phone Number [address] [address], [place] [address] * (ABNORMAL) Comprehensive Metabolic Panel (09/06/2023 1:43 PM CDT) Pathologist [facility] Potassium, S 4.2 3.6 - 5.2 [...] CDT Claudia Garcia M.D. LAB BLOOD ADD-ON [facility] [address] [address], [facility] [place] [address] * CBC with Differential, Blood (09/06/2023 1:43 [...] CDT Claudia Garcia M.D. LAB BLOOD ADD-ON [facility] [address] [place] [address], [facility] DTL [facility] [address] [place] [address] DHPM [facility] [address] [place] [address] documented in this encounter Visit Diagnoses Diagnosis Marginal Zone Lymphoma Splenic (HCC) documented in this encounter Additional Health Concerns Infection Onset Date Last Indicated Resolved Time Protective Environment 04/12/2023 04/12/2023 Assessment Noted Time PHQ-9 Depression Total Score: 5 06/13/19 22 6:15 PM CDT documented as of this encounter Care Teams Oncology Consultant Relationship Specialty Start Date End Date Elsewhere, Pcp PCP - General Internal Medicine 05/10/21 documented as of this encounter
--- OUTSIDE RECORDS SUMMARY | 2023-10-23 13:54 | XMS_ITS | Encounter Summary ---
Author Organization [facility] Address [address] [place] [address] Care Team Providers Care Head Of Research & Insights Name Role Phone Elsewhere, Pcp Primary Care Provider Unavailabl e Encounter Details Date Type Department Care Team (Late st Contact Info) Description 09/18/2023 Ancillary Procedure Department of Dermatology Social History Tobacco Use Types Packs/Day Years Used Date Smoking Tobacco: Former Cigarettes 0.3 14 0 09/04/1961 - 09/05/1975 Pipe Passive Smoke Exposure: Never Smokeless Tobacco: Never Comments:Havent smoked since 1975 Alcohol Use Standard Drinks/Week Comments Yes 1 (1 standard drink = 0.6 oz pure alcohol) approximately 1-2 servings of alcohol per 1-2 weeks. [facility] Utilities Answer Date Recorded In the past 12 months has e [employer]), gas, oil, or water [employer] threatened to shut off services in your [...] How often do you attend chur or jew services? More than 4 times [...] Answer Date Recorded PHQ-2 Score 0 06/12/2021 [facility] of Occupat ional Health - [...] have a [facility] place [facility] live 05/31/2023 Education Answer [...] CDT Comprehensive Visit Department of Neurology in [place], [place] [address] [place] [address] Cristy Avery M.D., M.H.S. 200 [place] [address] 11/21/2023 2:15 PM CDT Appointment Department of Radiology, [facility], in [place], [place] [address] [place] [address] Minerva Albarran M.D. 200 [place] [address] documented as of this encounter Procedures Procedure Name Priority Date/Time Associated Diagnosis Comments DERMATOLOGY IMAGE EXAM Routine 09/18/2023 12:00 AM CDT documented in this encounter Results * Chest 521-Dermatology Image Exam (09/18/2023 12:00 AM CDT) Narrative IIMS - 09/18/2023 4:07 PM CDT This order has been created and auto-finalized to support the import of images acquired without order. The clinical documentation to support these images can be found on the encounter that produced images. Provider Not In System IMG NON RAD IMAGI NG PROCEDURES IIMS NA documented in this encounter Visit Diagnoses Not on filedocumented in this encounter Additional Health Concerns Infection Onset Date Last Indicated Resolved Time Protective Environment 04/12/2023 04/12/2023 Assessment Noted Time PHQ-9 Depression Total Score: 5 06/13/19 22 6:15 PM CDT documented as of this encounter Care Teams Head Of Research & Insights Relationship Specialty Start Date End Date Elsewhere, Pcp PCP - General Internal Medicine 05/10/21 documented as of this encounter
--- OUTSIDE RECORDS SUMMARY | 2023-10-23 13:54 | XMS_ITS | Encounter Summary ---
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 [address] [place] [address] [facility] Referral ID Status Reason Start Date Expiration Date Visits Re quested Visits Authorized [id number] Closed 09/06/2023 09/05/2024 1 1 Encounter Details Date Type Department Care Team (Latest Contact Info) Description 10/11/2023 11:17 AM CDT - 10/11/2023 11:59 PM CDT Hospital Encounter Department of Radiology, [facility] in [place], [place] [address] [place] [address] Minerva Albarran M.D. 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 [facility] SMS[employer]ANE ACQUISITIONities Answer Date Recorded In the past 12 months has [facility] [employer], oil, or water [employer] threatened to shut off services in your [...] week 12/07/2021 How often do you attend [facility] or restorationism services? More than 4 times per year 12/07/2021 Do you belong to any clubs o r organizations such as jehovah's witness groups, unions, [...] Answer Date Recorded PHQ-2 Score 0 06/12/2021 [facility] of Occupat ional Health - [...] your living situation today? I have a [facility] place to live 05/31/2023 Education Answer [...] CDT Comprehensive Visit Department of Neurology in [place], [place] [address] [place] [address] Cristy Avery M.D., M.H.S. [address] [place] [address] 11/21/2023 2:15 PM CDT Appointment Department of Radiology, [facility] in [place], [place] [address] [place] [phone] Minerva Albarran M.D. 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 There are no [...] cerebral and cerebellarvolume loss. Minerva Albarran M.D. 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 Given 10/11/2023 12:53 PM CDT 6 mL documented in this encounter Additional Health Concerns Infection Onset Date Last Indicated Resolved Time Protective Environment 04/12/2023 04/12/2023 Assessment Noted Time PHQ-9 Depression Total Score: 5 06/13/19 22 6:15 PM CDT documented as of this encounter Care Teams Estimator And Drafter Supervisor Relationship Specialty Start Date End Date Elsewhere, Pcp PCP - General Internal Medicine 05/10/21 documented as of this encounter
--- OUTSIDE RECORDS SUMMARY | 2023-10-23 13:54 | XMS_ITS ---
Author Organization [facility] Address [address] [place] [address] Care Team Providers Care Engineer First Assistant Name Role Phone Elsewhere, Pcp Primary Care [...] Weekly ( Lymphoma ) 04/13/2023 05/26/2023 riTUXimab-abbs (Truxima) IVPB (RESTRICTED) (Truxima) Therapy Complete Satnam Lema M.B.B.S. 1 of 1 cycle started Radiation Treatments * No radiation treatments are documented for this patient in [facility]. Treatments may have been administered [...]
--- OUTSIDE RECORDS SUMMARY | 2023-10-23 13:54 | XMS_ITS | Encounter Summary ---
Author Organization [facility] Address [address] [place] [address] Care Team Providers Care Project Production Engineer Name Role Phone Elsewhere, Pcp Primary Care Provider Unavailabl e Reason for Referral * Outpatient (Routine) - Closed Specialty Diagnoses / Procedures Referred By Contbi t Referred To Contact Dermatology Diagnoses Psoriasis Nonscarring Hair Loss Unspecified Cancer Skin Basal Cell Personal History Gisele Curran M.D. [address] [place] [address] [facility] Referral ID Status Reason Start Date Expiration Date Visits Re quested Visits Authorized [id number] Closed 08/28/2023 02/26/2025 1 1 Encounter Details Date Type Department Care Team (Late st Contact Info) Description 08/28/2023 [facility] [address] [place] [address] Gisele Curran M.D. [address] [place] [phone] Psoriasis (Primary Dx); Nonscarring Hair Loss Unspecified; Cancer Skin Basal Cell Personal History Social History Tobacco Use Types Packs/Day Years Used Date Smoking Tobacco: Former Cigarettes 0.3 14 0 09/04/1961 - 09/05/1975 Pipe Passive Smoke Exposure: Never Smokeless Tobacco: Never Comments:Havent smoked since 1975 Alcohol Use Standard Drinks/Week Comments Yes 1 (1 standard drink = 0.6 oz pure alcohol) approximately 1-2 servings of alcohol per 1-2 weeks. [facility] Utilities Answer Date Recorded In the past 12 months has th e [employer], gas, oil, or water [email or web address] threatened to shut off services in your [...] How often do you attend chur or anabaptist services? More than 4 times per year 12/07/2021 Do you belong to any clubs o r organizations such as muslim groups, unions, fraternal [...] Answer Date Recorded PHQ-2 Score 0 06/12/2021 [facility] of Occupat ional [facility] - Occupational Stress Questionnaire Answer Date [...] CDT Comprehensive Visit Department of Neurology in [place], [place] [address] [place] [address] Cristy Avery M.D., M.H.S. [address] [place] [phone] 11/21/2023 2:15 PM CDT Appointment Department of Radiology, [facility], in [place], [place] [address] [place] [address] Minerva Albarran M.D. [address] [place] [phone] Scheduled Referrals Name Type Priority Associated Diagnoses Order Schedule Dermatology Referral Outpatient Referral Routine Psoriasis Nonscarring Hair Loss Unspecified Cancer Skin Basal Cell Personal History Expected: 08/28/2023 (Approximate), Expires: 11/27/2024 documented as of this encounter Visit Diagnoses Diagnosis Psoriasis- Primary Nonscarring Hair Loss Unspecified Cancer Skin Basal Cell Personal History documented in this encounter Additional Health Concerns Infection Onset Date Last Indicated Resolved Time Protective Environment 04/12/2023 04/12/2023 Assessment Noted Time PHQ-9 Depression Total Score: 5 06/13/19 22 6:15 PM CDT documented as of this encounter Care Teams Project Production Engineer Relationship Specialty Start Date End Date Elsewhere, Pcp PCP - General Internal Medicine 05/10/21 documented as of this encounter
--- OUTSIDE RECORDS SUMMARY | 2023-10-23 13:54 | XMS_ITS | Encounter Summary ---
Author Organization [facility] Address [address] [place] [address] Care Team Providers Care Curb Hop Name Role Phone Elsewhere, Pcp Primary Care Provider Unavailabl e Reason for Visit * Reason Onset Date Comments ARF REFERRAL 09/03/2023 Encounter Details Date Type Department Care Team (Late st Contact Info) Description 09/03/2023 Clinical Communication Department of Dermatology in [place], [place] [address] [place] [phone] Italia Valdez, RAdalidN. [address] [place] [address] ARF REFERRAL Social History Tobacco Use Types Packs/Day Years Used Date Smoking Tobacco: Former Cigarettes 0.3 14 0 09/04/1961 - 09/05/1975 Pipe Passive Smoke Exposure: Never Smokeless Tobacco: Never Comments:Havent smoked since 1975 Alcohol Use Standard Drinks/Week Comments Yes 1 (1 standard drink = 0.6 oz pure alcohol) approximately 1-2 servings of alcohol per 1-2 weeks. [facility] Utilities Answer Date Recorded In the past 12 months has [facility] [employer], gas, oil, or water [employer] threatened to shut off services in your [...] How often do you attend chur or rastafarian services? More than 4 times per year [...] Answer Date Recorded PHQ-2 Score 0 06/12/2021 [facility] of Occupat ionvt Health - Occupational Stress Questionnaire Answer Date [...] your living situation today? I have a [facility] place to live 05/31/2023 Education Answer [...] CDT Comprehensive Visit Department of Neurology in [place], [place] [address] [place] [address] Cristy Avery M.D., M.H.S. [address] [place] [address] 11/21/2023 2:15 PM CDT Appointment Department of Radiology, [facility], in [place], [place] [address] [place] [address] Minerva Albarran M.D. [address] [place] [address] documented as of this encounter Visit Diagnoses Not on filedocumented in this encounter Additional Health Concerns Infection Onset Date Last Indicated Resolved Time Protective Environment 04/12/2023 04/12/2023 Assessment Noted Time PHQ-9 Depression Total Score: 5 06/13/19 22 6:15 PM CDT documented as of this encounter Care Teams Curb Hop Relationship Specialty Start Date End Date Elsewhere, Pcp PCP - General Internal Medicine 05/10/21 documented as of this encounter
--- OUTSIDE RECORDS SUMMARY | 2023-10-23 13:54 | XMS_ITS | Encounter Summary ---
Author Organization [facility] Address [address] [place] [address] Care Team Providers Care Patented Hogshead Assembler Name Role Phone Elsewhere, Pcp Primary Care Provider Unavailabl e Reason for Visit * Reason Onset Date Comments Pre-visit Intake 10/15/2023 Encounter Details Date Type Department Care Team (Latest Contact Info) Description 10/15/2023 2:45 PM CDT Clinical Communication Virtual Review in [place], [place] [address] [place] [address] Pre-visit Intake Social History Tobacco Use Types Packs/Day Years [...] Recorded In the past 12 months has [facility] [employer] gas, oil, or water [employer] threatened to shut off services in your [...] How often do you attend chur or gnosticist services? More than 4 times per year 12/07/2021 Do you belong to any clubs o r organizations such as religious groups, unions, fraternal [...] your living situation today? I have a [facility] place to live 05/31/2023 Education Answer [...] CDT Comprehensive Visit Department of Neurology in [place], [place] 200 [place] [address] Cristy Avery M.D., M.H.S. [address] [place] [phone] 11/21/2023 2:15 PM CDT Appointment Department of Radiology, [facility], in [place], [place] [address] [place] [address] Minerva Albarran M.D. [address] [place] [address] documented as of this encounter Visit Diagnoses Not on filedocumented in this encounter Additional Health Concerns Infection Onset Date Last Indicated Resolved Time Protective Environment 04/12/2023 04/12/2023 Assessment Noted Time PHQ-9 Depression Total Score: 5 06/13/19 22 6:15 PM CDT documented as of this encounter Care Teams Patented Hogshead Assembler Relationship Specialty Start Date End Date Elsewhere, Pcp PCP - General Internal Medicine 05/10/21 documented as of this encounter
--- OUTSIDE RECORDS SUMMARY | 2023-10-23 13:54 | XMS_ITS | Encounter Summary ---
Author Organization [facility] Address [address] [place] [address] Care Team Providers Care Barkeep Name Role Phone Elsewhere, Pcp Primary Care Provider Unavailabl e Encounter Details Date Type Department Care Team (Late st Contact Info) Description 09/05/2023 Orders Only Department of Oncology in [place], [place] [address] [place] [address] Minerva Albarran M.D. [address] [place] [address] Marginal Zone Lymphoma Splenic (HCC) (Primary Dx) Social History Tobacco Use Types Packs/Day Years Used Date Smoking Tobacco: Former Cigarettes 0.3 14 0 09/04/1961 - 09/05/1975 Pipe Passive Smoke Exposure: Never Smokeless Tobacco: Never Comments:Havent smoked since 1975 Alcohol Use Standard Drinks/Week Comments Yes 1 (1 standard drink = 0.6 oz pure alcohol) approximately 1-2 servings of alcohol per 1-2 weeks. [facility] Utilities Answer Date Recorded In the past 12 months has [facility] [employer], gas, oil, or water [employer] threatened to shut off services in your [...] How often do you attend chur or jain services? More than 4 times per year 12/07/2021 Do you belong to any clubs o r organizations such as protestant groups, unions, fraternal [...] Answer Date Recorded PHQ-2 Score 0 06/12/2021 [facility] [place] of Occupat ional Health - Occupational Stress [...] your living situation today? I have a [facility] place to live 05/31/2023 Education Answer [...] CDT Comprehensive Visit Department of Neurology in [place], [place] [address] [place] [address] Cristy Avery M.D., M.H.S. [address] [place] [address] 11/21/2023 2:15 PM CDT Appointment Department of Radiology, [facility], in [place], [place] [address] [place] [phone] Minerva Albarran M.D. [address] [place] [address] documented as of this encounter Results * Leukemia/Lymphoma Immunophenotyping by Flow Cytometry, Blood (09/06/2023 1:43 PM CDT) Pathologist [facility] LCMSB Result Performed 09/07/2023 5:15 PM CDT DTL Final Diagnosis: Peripheral blood, flow cytometric immunophenotyping: Normal immunophenotyping results. ??No monotypic B-cell population or increase in blasts identified. Absence of [id number] B-cells. A prior positive bone marrow flow cytometry study is noted ([id number];04/06/2023 ). Reviewed by: Tosha Swenson M.D., Ph.D. 09/07/2023 5:15 PM CDT DTL Special Studies: WBC: ??3.9 x 10(9)/L %Lymphs (CBC/automated differential): ??26% #Lymphs (CBC/automated differential): ??1.0 x 10(9)/L Results: Blasts: ??Not increased by CD45/side scatter and CD34. B-cells: ??Absence of [id number] B cells. ??B-cell markers tested: CD10, CD19 and kappa and lambda surface light chains. T-cells/NK-cells: ??No aberrant phenotype by CD3 and CD16. Quality Assessment: ??Specimen received within validated guidelines. 09/07/2023 5:15 PM CDT DTL Microscopic Description A [id number] d slide prepared from the flow cytometry [...] CDT Minerva Albarran M.D. LAB GENETIC TESTING [facility] [address] [place] [address], [facility] DT 200 [facility] [address] [place] [address] documented in this encounter Visit Diagnoses Diagnosis Marginal Zone Lymphoma Splenic (HCC)- Primary documented in this encounter Additional Health Concerns Infection Onset Date Last Indicated Resolved Time Protective Environment 04/12/2023 04/12/2023 Assessment Noted Time PHQ-9 Depression Total Score: 5 06/13/19 22 6:15 PM CDT documented as of this encounter Care Teams Barkeep Relationship Specialty Start Date End Date Elsewhere, Pcp PCP - General Internal Medicine 05/10/21 documented as of this encounter
--- OUTSIDE RECORDS SUMMARY | 2023-10-23 13:54 | XMS_ITS | Encounter Summary ---
Author Organization [facility] Address [address] [place] [address] Care Team Providers Care Supply Chain Tech Name Role Phone Elsewhere, Pcp Primary Care Provider Unavailabl e Reason for Referral * Outpatient (Routine) - Authorized Specialty Diagnoses / Procedures Referred By Contac t Referred To Contact Hematology Oncology Diagnoses Marginal Zone Lymphoma Splenic (HCC) Minerva Albarran M.D. [address] [place] [address] [facility] Referral ID Status Reason Start Date Expiration Date V isits Requested Visits Authorized [id number] Authorized 09/06/2023 03/07/2025 1 1 * MRI/CAT/PET Scan (Routine) - Closed Specialty Diagnoses / Procedures Referred By Contac t Referred To Contact Radiology Diagnoses Encephalopathy Metabolic Unspecified Dementia Unspecified Severity Without Behavioral Disturbance 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) Ataxia Procedures MR Brain without and with IV Contrast Minerva Albarran M.D. [address] [place] [address] [facility] Referral ID Status Reason Start Date Expiration Date Visits Re quested Visits Authorized [id number] Closed 09/06/2023 09/05/2024 1 1 Reason for Visit * Outpatient (Routine) - Closed Specialty Diagnoses / Procedures Referred By Contac t Referred To Contact Hematology Oncology Claudia Garcia M.D. [address] [place] [address] [facility] Referral ID Status Reason Start Date Expiration Date Visits Re quested Visits Authorized [id number] Closed 06/01/2023 11/30/2024 1 1 Encounter Details Date Type Department Care Team (Late st Contact Info) Description 09/06/2023 3:45 PM CDT Office Visit Division of Hematology in [place], [place] [address] [place] [phone] Minerva Albarran M.D. [address] [place] [phone] Marginal Zone Lymphoma Splenic (HCC) (Primary Dx); Encephalopathy Metabolic; Unspecified Dementia Unspecified Severity Without Behavioral Disturbance 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); Ataxia Social History Tobacco Use Types Packs/Day Years Used Date Smoking Tobacco: Former Cigarettes 0.3 14 0 09/04/1961 - 09/05/1975 Pipe Passive Smoke Exposure: Never Smokeless Tobacco: Never Comments:Havent smoked since 1975 Alcohol Use Standard Drinks/Week Comments Yes 1 (1 standard drink = 0.6 oz pure alcohol) approximately 1-2 servings of alcohol per 1-2 weeks. [facility] Utilities Answer Date Recorded In the past 12 months has [facility] [employer], gas, oil, or water [employer] [...] often do you attend chur ch or muslim services? More than 4 times per year 12/07/2021 Do you belong to any clubs o r organizations such as gnosticism groups, unions, fraternal or athletic groups, or [...] Answer Date Recorded PHQ-2 Score 0 06/12/2021 [facility] - Occupational Stress Questionnaire Answer Date [...] your living situation today? I have a [facility] place to live 05/31/2023 Education Answer [...] 09/06/2023 3:29 PM CD T Respiratory Rate - - Oxygen Saturation - - Inhaled Oxygen Concentration - - Weight 56.7 kg (125 lb) 09/06/2023 3:29 PM CDT Height 149.4 cm (4' 10.82) 09/06/2023 3:29 PM C DT Body Mass Index 25.4 09/06/2023 3:29 PM CDT documented in this encounter Progress Notes * Minerva Albarran M.D. - 09/06/2023 3:45 PM CDT DEMOGRAPHIC INFORMATION Patient Name: Darcy Colon Birthdate: 1940 Sex: female [phone] (home) Address: [address] [place] [address] [facility] [phone] SUBJECTIVE CHIEF COMPLAINT/PURPOSE OF VISIT Primary [place] Hematology Fellow: Minerva Albarran MD Primary [place] Hemat[facility] Programming Engineer: Ariel Sevilla MD Supervising [place] Hemat[facility] Programming Engineer: Ariel Bar MD PCP: ELSEWHERE, PCP HISTORY OF PRESENT ILLNESS Darcy Colon is a 83 y.o. female with the following history. Oncology [...] Weekly ( Lymphoma ) Start Date: 04/13/2023 INTERVAL HISTORY Reports overall she continues to feel much better than she did prior to her rituximab treatments. She continues to have an excellent appetite and has gained about 10lbs. She reports she is staying active. She has noted that on the left side of her face/neck and hairline she has 6-7 areas that are red and scaly. Notes spots have gradually come up after completing her rituximab. No spots on her trunk or limbs. She denies constitutional symptoms of fever, chills, fatigue, drenching night sweats or weight loss. Mrs. Colon is here with her today and they do report that she has been having more issues with her balance and they are afraid of her falling. She last saw neurology in the hospital but has not seen them since. She has not had any falls but has trouble going up and down the stairs or walking distances due to fear of falling. Also continues to struggle with short term memory loss. REVIEW OF SYSTEMS A complete 10 point systems review was performed and negative except as noted above in the HPI. OBJECTIVE VITALS There were no vitals filed for this visit. Wt Readings from Last 3 Encounters: 07/11/23 56 kg 06/01/23 53 kg 04/27/23 51.8 kg BMI Readings from Last 3 Encounters: 07/11/23 24.72 kg/m?? 06/01/23 23.87 kg/m?? 04/27/23 23.07 kg/m?? PHYSICAL EXAMINATION General: No acute distress, cooperative. HEENT: Moist mucus membranes Cardiovascular: Regular rate, no peripheral edema appreciated, warm and well perfused. Chest/Pulmonary: No coughing or wheezing, on room air, normal work of breathing. Abdominal: Soft, non-tender to palpation. No splenomegaly. No hepatomegaly. Neurological: AOx3, CN 2-12 intact, strength 4+/5 and symmetric in bilateral upper and lower extremities, no pronator drift, slow but intact finger to nose bilaterally, hesitant gait LABS Reviewed IMAGING Reviewed; PET with complete response PET CT Skull to Thigh FDG Result Date: 05/25/2023 Impression: Complete metabolic response. No evidence of FDG avid residual or recurrent metastatic disease. Deauville score 1. 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 She received 4 doses weekly rituximab, and achieved a complete response with PET 2 weeks after treatment completion demonstrating Deauville 1. Given short interval from treatment completion to scan, will repeat PET-CT. If remains in CR and peripheral flow cytometry unremarkable, will then switch to CT chest/abd/pelvis every 6 months for first 1-2 years. If her peripheral flow cytometry demonstrates residual disease or her blood counts drop, will then also need to proceed with a bone marrow biopsy. Regarding the red scaly macules and patches on the left side of her face/neck. Differential is broad. As they have slowly been increasing in number over past several months - okay to wait until visitwith dermatology next week. Would recommend biopsy to help clarify etiology. Regarding her progressive balance and memory issues - these predate her lymphoma diagnosis and she had a visit with neurology almost exactly one year before her diagnosis of lymphoma. At that time, she was diagnosed with MCI, parkinsonism, and mild essential tremor. Her MRI brain at time of lymphoma diagnosis was clear. Will repeat brain MRI and refer her back to neurology.. Summary of Plan: - Agree with dermatology follow up for biopsy scheduled next week - Repeat PET-CT given prior short interval from completion of therapy to prior PET-CT - F/up peripheral flow cytometry - Return patient visit in 3 months with labs - Refer back to neurology Total time of encounter: 35 minutes, over 50% of which was spent in counseling and coordination of care. PATIENT EDUCATION Patient ready to learn, no apparent learning barriers were identified; learning preferences includelistening. Explained diagnosis and treatment plan; patient expressed understanding of the content. It was my pleasure to care for Darcy Colon today. Minerva Albarran M.D. Fellow, Hematology and Medical Oncology documented in this encounter Plan of Treatment Upcoming Encounters Date Type Department Care Team (Late st Contact Info) Description 10/24/2023 1:00 PM CDT Comprehensive Visit Department of Neurology in [place], [place] [address] [place] [phone] Cristy Avery M.D., M.H.S. [address] [place] [address] 11/21/2023 2:15 PM CDT Appointment Department of Radiology, [facility], in [place], [place] [address] [place] [address] Minerva Albarran M.D. [address] [place] [address] Scheduled Orders Name Type Priority Associated Diagnoses Orde r Schedule CBC with Differential, Blood Lab Routine Marginal Zone Lymphoma Splenic (HCC) Expected: 12/07/2023, Expires: 12/06/2024 Comprehensive Metabolic Panel Lab Routine Marginal Zone Lymphoma Splenic (HCC) Expected: 03/08/2024, Expires: 12/06/2024 Scheduled Referrals Name Type Priority Associated Diagnoses Order Schedule Hematology office visit (clinic) [place]; Lymphoma; General Outpatient Referral Routine Marginal Zone Lymphoma Splenic (HCC) Expected: 12/07/2023, Expires: 12/06/2024 documented as of this encounter Results * MR Brain without [...] and cerebellarvolume loss. Minerva CHAPA MRI PROCEDURES documented in this encounter Visit Diagnoses Diagnosis Marginal Zone Lymphoma Splenic (HCC)- Primary Encephalopathy Metabolic Unspecified Dementia Unspecified Severity Without Behavioral Disturbance 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) Ataxia Encephalopathy Metabolic Unspecified Dementia Unspecified Severity Without Behavioral Disturbance 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) Ataxia documented in this encounter Additional Health Concerns Infection Onset Date Last Indicated Resolved Time Protective Environment 04/12/2023 04/12/2023 Assessment Noted Time PHQ-9 Depression Total Score: 5 06/13/19 22 6:15 PM CDT documented as of this encounter Care Teams Supply Chain Tech Relationship Specialty Start Date End Date Elsewhere, Pcp PCP - General Internal Medicine 05/10/21 documented as of this encounter
--- OUTSIDE RECORDS SUMMARY | 2023-10-23 13:54 | XMS_ITS | Encounter Summary ---
Author Organization [facility] Address [address] [place] [address] Care Team Providers Care Unarmed Security Officer Name Role Phone Elsewhere, Pcp Primary Care Provider Unavailabl e Reason for Visit * Outpatient (Routine) - Closed Specialty Diagnoses / Procedures Referred By Rodolfo t Referred To Contact Dermatology Shannon Murray M.B.B.S. [address] [place] [phone] Shannon Murray M.B.B.S. [address] [place] [phone] Referral ID Status Reason Start Date Expiration Date Visits Re quested Visits Authorized [id number] Closed 09/18/2023 03/19/2025 1 1 Encounter Details Date Type Department Care Team (Late st Contact Info) Description 10/05/2023 9:30 AM CDT Office Visit Department of Dermatology in [place], [place] [address] [place] [phone] Shannon Murray M.B.B.S. [address] [place] [phone] Keratosis Actinic [L57.0] (Primary Dx) Discharge Disposition: [...] 1-2 servings of alcohol per 1-2 weeks. [facility] Utilities Answer Date Recorded In the past 12 months has th e [employer], gas, oil, or water company threatened to [...] often do you attend chur ch or rastafari services? More than 4 times per year [...] Answer Date Recorded PHQ-2 Score 0 06/12/2021 [facility] of Occupat ional [facility] - Occupational Stress Questionnaire Answer Date [...] as of this encounter Consult Notes * Shannon Murray M.B.B.S. - 10/05/2023 9:30 AM CDT Correspondence To: Dr. Jacobs SUBJECTIVE CHIEF COMPLAINT/REASON FOR VISIT Spot on chest HISTORY OF PRESENT ILLNESS Ms. Colon is a very pleasant 83 y.o. woman who presents today for the evaluation of a spot on her chest. 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 Lymphoplasmacyticlymphoproliferative disorder, Waldenstrom's macroglobulinemia) and history of nonmelanoma skin cancers. She was last seen in Dermatology on 09/18/2023 for full-body skin check. At that time, she had an erosion on her anterior chest. A biopsy was recommended to rule out nonmelanoma skin cancer. Since she had a CT scan scheduled that day she wanted to avoid biopsy. She presents today for evaluationof a spot. No other skin concerns. MEDICAL/SURGICAL HISTORY Reviewed available previous notes. OBJECTIVE PHYSICAL EXAMINATION General: Well appearing female in no acute distress. Alert and Oriented. Skin: Skin examination of the chest was performed. Involving the anterior chest that is gritty macule consistent with actinic keratoses. ASSESSMENT / PLAN # Actinic keratosis, anterior chest This was likely scratched of when she was seen during her last appointment. Given the precancerous nature of this lesion(s), treatment is medically indicated. After discussionof the risks, benefits and alternatives to treatment with cryotherapy, informed consent was obtained. We treated a total of 1 lesion(s) with two 20-second freeze-thaw cycles of liquid nitrogen cryotherapy. The patient tolerated the procedure well. Aftercare instructions were provided in written andverbal form to the patient. Should any of these lesions recur, the patient should return for biopsyor further evaluation. Discussed the risks, benefits, alternatives, and the necessity of other members of the healthcare team participating in the procedure. All questions answered and consent given. PATIENT EDUCATION Learning needs assessment was performed. No learning barriers were identified. Explained diagnosis and treatment plan. Patient expressed understanding and was able to teach back. documented in this encounter Plan of Treatment Upcoming Encounters Date Type Department Care Team (Late st Contact Info) Description 10/24/2023 1:00 PM CDT Comprehensive Visit Department of Neurology in [place], [place] [address] [place] [phone] Cristy Avery M.D., M.H.S. [address] [place] [phone] 11/21/2023 2:15 PM CDT Appointment Department of Radiology, [facility], in [place], [place] [address] [place] [address] Minerva Albarran M.D. [address] [place] [phone] documented as of this encounter Visit Diagnoses Diagnosis Keratosis Actinic [L57.0]- Primary documented in this encounter Additional Health Concerns Infection Onset Date Last Indicated Resolved Time Protective Environment 04/12/2023 04/12/2023 Assessment Noted Time PHQ-9 Depression Total Score: 5 06/13/19 22 6:15 PM CDT documented as of this encounter Care Teams Unarmed Security Officer Relationship Specialty Start Date End Date Elsewhere, Pcp PCP - General Internal Medicine 05/10/21 documented as of this encounter
--- OUTSIDE RECORDS SUMMARY | 2023-10-23 13:54 | XMS_ITS ---
Author Organization [facility] Address [address] [place] [address] Care Team Providers Care Primary Care Md Name Role Phone Unavailable Unavailable Unavailable Surgery Details Not on file Complications Check Surgery Details section. Procedure Estimated Blood Loss Check Surgery Details section. Procedure Findings Check Surgery Details section. Procedure Specimens Taken Check Surgery Details section.
--- OUTSIDE RECORDS SUMMARY | 2023-10-23 13:55 | XMS_ITS | Encounter Summary ---
Author Organization [facility] Address [address] [place] [address] Care Team Providers Care Shank Inspector Name Role Phone Elsewhere, Pcp Primary Care Provider Unavailabl e Encounter Details Date Type Department Care Team (Late st Contact Info) Description 08/10/2023 [facility] [address] [place] [address] Gisele Curran M.D. [address] [place] [phone] Malignant Neoplasm Of Skin Basal Cell Carcinoma (Primary Dx) Social History Tobacco Use Types Packs/Day Years Used Date Smoking Tobacco: Former Cigarettes 0.3 14 0 09/04/1961 - 09/05/1975 Pipe Passive Smoke Exposure: Never Smokeless Tobacco: Never Comments:Havent smoked since 1975 Alcohol Use Standard Drinks/Week Comments Yes 1 (1 standard drink = 0.6 oz pure alcohol) approximately 1-2 servings of alcohol per 1-2 weeks. [facility] Utilities Answer Date Recorded In the past 12 months has [facility] [employer], gas, oil, or water [employer] threatened to shut off services in your [...] How often do you attend chur or gnosticism services? More than 4 times per year 12/07/2021 Do you belong to any clubs o r organizations such as roman catholic groups, unions, fraternal or athletic groups, or [...] Answer Date Recorded PHQ-2 Score 0 06/12/2021 [facility] of Occupat ional Health - Occupational Stress [...] your living situation today? I have a [facility] place to live 05/31/2023 Education [...] CDT Comprehensive Visit Department of Neurology in [place], [place] [address] [place] [address] Cristy Avery M.D., M.H.S. [address] [place] [address] 11/21/2023 2:15 PM CDT Appointment Department of Radiology, [facility], in [place], [place] [address] [place] [address] Minerva Albarran M.D. [address] [place] [address] documented as of this encounter Visit Diagnoses Diagnosis Malignant Neoplasm Of Skin Basal Cell Carcinoma- Primary documented in this encounter Additional Health Concerns Infection Onset Date Last Indicated Resolved Time Protective Environment 04/12/2023 04/12/2023 Assessment Noted Time PHQ-9 Depression Total Score: 5 06/13/19 6:15 PM CDT documented as of this encounter Care Teams Shank Inspector Relationship Specialty Start Date End Date Elsewhere, Pcp PCP - General Internal Medicine 05/10/21 documented as of this encounter
--- OUTSIDE RECORDS SUMMARY | 2023-10-23 13:55 | XMS_ITS | Encounter Summary ---
Author Organization [facility] Address [address] [place] [address] Care Team Providers Care Director Family Name Role Phone Elsewhere, Pcp Primary Care Provider Unavailabl e Reason for Visit * Reason Onset Date Comments Referral 08/08/2023 Encounter Details Date Type Department Care Team (Late st Contact Info) Description 08/08/2023 Clinical Communication Department of Dermatology in [place], [place] [address] [place] [phone] Carl Oneal M.D. [address] [place] [phone] Referral Social History Tobacco Use Types Packs/Day Years Used Date Smoking Tobacco: Former Cigarettes 0.3 14 0 09/04/1961 - 09/05/1975 Pipe Passive Smoke Exposure: Never Smokeless Tobacco: Never Comments:Havent smoked since 1975 Alcohol Use Standard Drinks/Week Comments Yes 1 (1 standard drink = 0.6 oz pure alcohol) approximately 1-2 servings of alcohol per 1-2 weeks. [facility] Utilities Answer Date Recorded In the past 12 months has [facility] [employer], gas, oil, or water [employer] threatened to shut off services in your [...] How often do you attend chur or church services? More than 4 times per year 12/07/2021 Do you belong to any clubs o r organizations such as lutheran groups, unions, fraternal [...] Answer Date Recorded PHQ-2 Score 0 06/12/2021 [facility] [place] of Occupat ional Health - Occupational Stress [...] living situation today? I have a [facility] place to live 05/31/2023 Education Answer [...] CDT Comprehensive Visit Department of Neurology in [place], [place] [address] [place] [phone] Cristy Avery M.D., M.H.S. [address] [place] [address] 11/21/2023 2:15 PM CDT Appointment Department of Radiology, [facility], in [place], [place] [address] [place] [phone] Minerva Albarran M.D. [address] [place] [address] documented as of this encounter Visit Diagnoses Not on filedocumented in this encounter Additional Health Concerns Infection Onset Date Last Indicated Resolved Time Protective Environment 04/12/2023 04/12/2023 Assessment Noted Time PHQ-9 Depression Total Score: 5 06/13/19 22 6:15 PM CDT documented as of this encounter Care Teams Director Family Relationship Specialty Start Date End Date Elsewhere, Pcp PCP - General Internal Medicine 05/10/21 documented as of this encounter
== END 2023-10-23 13:51 | disposition home or self-care (01) ==
PROVIDERS: PCP Family Medicine; Visit Provider Family Medicine
DX: Z12.31 Encounter for screening mammogram for malignant neoplasm of breast (principal); R92.2 Inconclusive mammogram
CPT/HCPCS: 77063; 77067

== ENCOUNTER 2023-12-08 15:17 | Observation (INO) | payer MEDICARE, OTHER, SELFPAY ==
[2023-12-08] VITALS (20 sets, daily range): BP systolic 112–168; BP diastolic 60–86; PULSE 65–79; RESP 16–18; TEMP 36.6–36.8; O2SAT 92–99; BMI 26.8; BMI 28.3
--- NOTE | 2023-12-08 15:46 | ED.GENADULT ---
HPI - General Adult General Chief complaint: Fall/Minor Trauma Stated complaint: fall Time Seen by Provider: 12/08/23 15:24 History of Present Illness HPI narrative: Patient is 83-year-old woman who stumbled and fell coming off the deck today approximately 2 hours ago landing on her right elbow and right lateral thigh. She did have a glancing blow to her neck and head but no other injuries. She is left with pain with range of motion of the right shoulder as well as inability to comfortably bear weight due to right-sided hip and groin pain. Patient is not on anticoagulation. She is able to get herself up her transported here after a 2 hour delays is happened in [facility]. No skin breakdown no bruising noted. Neurologic symptoms. Related Data Home Medications ?Medication ?Instructions ?Recorded ?Confirmed dorzolamide-timolol (PF) 2 %-0.5 % 1 drp ophthalmic (eye) BID 11/29/22 06/12/23 eye drops in a dropperette (Cosopt (PF)) escitalopram oxalate 20 mg tablet 20 mg PO QDAY 05/01/23 06/12/23 ketorolac 0.5 % eye drops 1 drp ophthalmic (eye) BID 05/01/23 06/12/23 ondansetron 4 mg disintegrating 4 mg PO Q8H PRN 05/01/23 06/12/23 tablet acetaminophen 500 mg capsule 500 mg PO DAILY PRN 05/30/23 06/12/23 brimonidine 0.2 % eye drops 1 drp ophthalmic (eye) BID 05/30/23 06/12/23 Previous Rx's ?Medication ?Instructions ?Recorded omeprazole 20 mg capsule,delayed 20 mg PO QDAY #90 caps 11/29/22 release thiamine HCl (vitamin B1) 100 mg 100 mg PO QDAY #90 tabs 07/26/23 tablet bupropion HCl 150 mg 24 hr tablet, 150 mg PO QAM #90 tabs 10/18/23 extended release Allergies Allergy/AdvReac Type Severity Reaction Status Date / Time No Known Drug Allergies Allergy Verified 12/08/23 15:33 Review of Systems Status of ROS: Reports: 10 or more systems reviewed and unremarkable except as noted in History and below [facility] Medical History Thrombocytopathia ?D69.1 - Qualitative platelet defects (ICD-10) History of echocardiogram (04/13/23) ?Z92.89 - Personal history of other medical treatment (ICD-10) History of stroke (04/23/23) ?Z86.73 - Personal history of transient ischemic attack (TIA), and cerebral infarction without residual deficits (ICD-10) 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 - Anemia in neoplastic disease (ICD-10) 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 - Small cell B-cell lymphoma, unspecified site (ICD-10) Tremor (~2019) ?R25.1 - Tremor, unspecified (ICD-10) Restless legs syndrome ?G25.81 - Restless legs syndrome (ICD-10) Depression ?F32.A - Depression, unspecified (ICD-10) Parkinsonism ?G20 - Parkinson's disease (ICD-10) Memory problem (~11/2021) ?R41.3 - Other amnesia (ICD-10) Postmenopausal atrophic vaginitis ?N95.2 - Postmenopausal atrophic vaginitis (ICD-10) Hypertension ?I10 - Essential (primary) hypertension (ICD-10) History of malignant neoplasm of left breast (01/2016) ?Z85.3 - Personal history of malignant neoplasm of breast (ICD-10) History of diplopia (~2020) ?Z86.69 - Personal history of other diseases of the nervous system and sense organs (ICD-10) Gastroesophageal reflux disease ?K21.9 - Gastro-esophageal reflux disease without esophagitis (ICD-10) Encounter for long-term (current) use of non-steroidal anti-inflammatories ?Z79.1 - termite helper (current) use of non-steroidal anti-inflammatories (NSAID) (ICD-10) Encounter for counseling regarding advance directives (03/21/10) ?Z71.89 - Other specified counseling (ICD-10) Chronic neck pain ?M54.2 - Cervicalgia (ICD-10) ?G89.29 - Other chronic pain (ICD-10) Basal cell carcinoma (BCC) ?C44.91 - Basal cell carcinoma of skin, unspecified (ICD-10) Acute bronchitis ?J20.9 - Acute bronchitis, unspecified (ICD-10) Surgical History 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710 - Acquired absence of both cervix and uterus (ICD-10) History of bunionectomy of right great toe (2011) ?Z98.890 - Other specified postprocedural states (ICD-10) History of basal cell carcinoma (BCC) excision (2016) ?Z98.890 - Other specified postprocedural states (ICD-10) ?Z85.828 - Personal history of other malignant neoplasm of skin (ICD-10) Family History Father Alzheimers disease, Onset Age: 72 Sister Breast cancer, Onset Age: 60 Non-alcoholic cirrhosis Mother Diabetes Non-alcoholic cirrhosis Family/Other No problems noted. Brother Prostate cancer Brother Prostate cancer Social History (Updated 11/29/22 @ 14:19 by Gisele Curran MD) Narrative: : Retired, 3 adult children. Ex cigarette smoker quit at age 41, 22 pack years. 1-2 drinks per week. No regular exercise Smoking Status: Former smoker How often do you have a drink containing alcohol: 2-4 times a month How many standard drinks containing alcohol do you have on a typical day: 1 or 2 How often do you have six or more drinks on one occasion: Never AUDIT-C Alcohol total score: 2 Non-prescribed substance use: denies use Little interest or pleasure in doing things: not at all Feeling down, depressed, or hopeless: not at all Are you using contraception or practicing any form of control: No Exam Narrative: Exam Narrative: EXAM GENERAL: Patient appears comfortable and well. EYES: No scleral icterus. ENT: Tympanic membranes and oropharynx normal. THYROID: no thyroid nodules or thyromegaly. LYMPH: No supraclavicular or cervical lymphadenopathy. SKIN: Visible skin seen during exam normal or with benign process only. EXT: No dependent lower extremity pedal edema. HEART: Regular rate and rhythm with no murmurs, rubs, or gallops. LUNGS: Clear to auscultation bilaterally with no crackles or wheezes. ABD: Soft, non tender, non distended. PSYCH: Good eye contact, speech is not pressured. Const: Vital Signs, click to edit/add: Vital Signs - 24 hr 12/08/23 15:33 12/08/23 15:46 12/08/23 16:24 Temperature 98.3 F Pulse Rate 73 74 Pulse Rate [Pulse Oximeter] 68 Respiratory Rate 16 Blood Pressure Blood Pressure [Ri ght Upper Arm] 168/73 H Pulse Oximetry 99 99 97 Oxygen Delivery Me thod Room Air 12/08/23 16:30 12/08/23 16:31 12/08/23 16:45 Temperature Pulse Rate 71 74 72 Pulse Rate [Pulse Oximeter] Respiratory Rate Blood Pressure 144/73 H Blood Pressure [Ri ght Upper Arm] Pulse Oximetry 96 94 95 Oxygen Delivery Me thod 12/08/23 17:00 12/08/23 17:02 Temperature Pulse Rate 79 75 Pulse Rate [Pulse Oximeter] Respiratory Rate Blood Pressure 127/64 Blood Pressure [Ri ght Upper Arm] Pulse Oximetry 93 94 Oxygen Delivery Me thod Course Course ED Course: Patient seen examined. I am concerned by her head injury and will start with CT head and neck as well as CT of the pelvis. X-ray of the right elbow and plan to reassess. Vital Signs Vital signs: Initial Vital Signs Temperature 98.3 F 12/08/23 15:33 Temperature Source Temporal Artery Scan 12/08/23 15:33 Pulse Rate 68 12/08/23 15:33 Respiratory Rate 16 12/08/23 15:33 Blood Pressure 168/73 H 12/08/23 15:33 Blood Pressure Mean 104 12/08/23 15:33 Blood Pressure Position Supine 12/08/23 15:33 Pulse Oximetry 99 12/08/23 15:33 Oxygen Delivery Method Room Air 12/08/23 15:33 Vital Signs Temperature 98.3 F 12/08/23 15:33 Pulse Rate 68 12/08/23 15:33 Respiratory Rate 16 12/08/23 15:33 Blood Pressure 168/73 H 12/08/23 15:33 Pulse Oximetry 99 12/08/23 15:33 Oxygen Delivery Method Room Air 12/08/23 15:33 Temperature 98.3 F 12/08/23 15:33 Pulse Rate 75 12/08/23 17:02 Respiratory Rate 16 12/08/23 15:33 Blood Pressure 127/64 12/08/23 17:02 Pulse Oximetry 94 12/08/23 17:02 Oxygen Delivery Method Room Air 12/08/23 15:33 Medications Administered Medications: Discontinued Medications Generic Name Dose Route Start Last Admin Trade Name Rgq PRN Reason Stop Dose Admin Acetaminophen 1,000 mg 12/08/23 15:57 12/08/23 16:01 Acetaminophen 500 Mg Tablet PO 12/08/23 15:58 1,000 mg ONCE ONE Administration Medical Decision Making MDM Narrative Medical decision making narrative: Patient is a 3-year-old woman who unfortunately fell injuring her right side. Her CT of head neck her unremarkable she does have what appears to be an occult elbow fracture. Patient is placed in the sling. There also appears to be nondisplaced pelvic fracture. Patient is unable to care for herself at home. I did review her past medical history and note that she has history of thrombocytopenia. We did send off CBC basic metabolic panel the patient will be admitted for further evaluation or treatment. Lab Data Labs: Lab Results 12/08/23 Range/Units 17:36 WBC 5.37 (4.50-11.00) K/uL RBC 4.09 (4.00-5.20) m/uL Hgb 13.2 (12.0-16.0) gm/dL Hct 39.9 (33.0-51.0) % MCV 98 (80-100) fL MCH 32 (26-34) pg MCHC 33 (32-36) gm/dL RDW Coeff of Renetta 13.5 (11.5-15.5) % Plt Count 129 L (140-440) K/uL Neut % (Auto) 70.4 (42.0-72.0) % Lymph % (Auto) 14.5 L (20-44) % Rice % (Auto) 13.6 H (0.0-11.0) % Eos % (Auto) 0.7 (0.0-7.0) % Baso % (Auto) 0.6 (0.0-3.0) % Neut # (Auto) 3.78 (1.7-7.0) K/uL Lymph # (Auto) 0.80 L (0.90-2.90) K/uL Rice # (Auto) 0.70 (0.00-0.90) K/UL Eos # (Auto) 0.04 (0.00-0.50) K/uL Baso # (Auto) 0.03 (0.00-0.30) K/uL Abs Immat Gran (auto) 0.01 (0.00-0.30) K/uL Imm/Tot Granulo (auto) 0.2 % Discharge Plan Discharge Clinical Impression: Closed pelvic fracture Patient Disposition: Admitted As Observation Condition: Stable Activity Level: Other Discharge Diet: Other Prescriptions: No Action dorzolamide-timolol (PF) [Cosopt (PF)] 2-0.5 % dropperette 1 drp ophthalmic (eye) BID omeprazole 20 mg capsule,delayed release(DR/EC) 20 mg PO QDAY Qty: 90 3RF escitalopram oxalate 20 mg tablet 20 mg PO QDAY ondansetron 4 mg tablet,disintegrating 4 mg PO Q8H PRN ketorolac 0.5 % drops 1 drp ophthalmic (eye) BID acetaminophen 500 mg capsule 500 mg PO DAILY PRN brimonidine 0.2 % drops 1 drp ophthalmic (eye) BID Rx Instructions: administer approximately 8 hours apart thiamine HCl (vitamin B1) 100 mg tablet 100 mg PO QDAY Qty: 90 1RF bupropion HCl 150 mg tablet extended release 24 hr 150 mg PO QAM Qty: 90 0RF Follow Up/Referrals: Gisele Curran MD [Primary Care Provider] - Stand Alone Forms[facility]
--- NOTE | 2023-12-08 15:48 | CRLHL7_ITS ---
For Patients: As a result of the Cures Act, medical imaging exams and procedure reports are released immediately into your electronic medical record. You may view this report before your referring provider. If you have questions, please contact your health care provider. INDICATION: Fall. TECHNIQUE: Three views of the right elbow. COMPARISON: None. FINDINGS: There is elevation of the anterior fat pad indicating a joint effusion. No definite fracture is visualized. No dislocation. IMPRESSION : No fracture is visualized however the elbow joint effusion suggests an occult fracture. Dictated by Sophia Oden MD @ 12/08/2023 5:26:15 PM (Electronically Signed)
--- NOTE | 2023-12-08 15:49 | CRLHL7_ITS ---
For Patients: As a result of the Century Cures Act, medical imaging exams and procedure reports are released immediately into your electronic medical record. You may view this report before your referring provider. If you have questions, please contact your health care provider. INDICATION: Fall TECHNIQUE: Noncontrast axial CT of the head. Coronal and sagittal reformats. Bone and soft tissue algorithms. COMPARISON: CT head 12/18/2021 FINDINGS: The calvarium appears grossly intact. No acute intracranial hemorrhage or abnormal extra-axial fluid collection. Similar bandlike hyperdensity throughout the central armin, most suggestive of nonspecific mineralization or potentially underlying cavernous malformation as noted on remote exam. Preserved rosales-white matter differentiation. Mild generalized cerebral volume loss. Mild chronic microangiopathy white-matter hypoattenuation. Calcific intracranial atherosclerotic plaquing. Partially empty sella configuration. Stable chronic partial opacification of the right posterior ethmoid air cells. Clear mastoid air cells. Bilateral lens implants. IMPRESSION: 1. No skull fracture or acute intracranial hemorrhage identified. 2. Similar chronic bandlike hyperdensity throughout the central armin, potentially nonspecific mineralization versus cavernoma. 3. No significant interval change relative to 12/18/2021. Please note that all CT scans at this facility use dose modulation, iterative reconstruction, and/or weight-based dosing when appropriate to reduce radiation dose to as low as reasonably achievable. Dictated by Luz Burnett MD @ 12/08/2023 4:29:11 PM (Electronically Signed)
--- NOTE | 2023-12-08 15:49 | CRLHL7_ITS ---
For Patients: As a result of the Century Cures Act, medical imaging exams and procedure reports are released immediately into your electronic medical record. You may view this report before your referring provider. If you have questions, please contact your health care provider. INDICATION: FALL, RIGHT HIP PAIN. TECHNIQUE: CT pelvis without contrast. COMPARISON: None. FINDINGS: Bones: Acute nondisplaced fracture of the right inferior pubic ramus. No dislocation or other evident acute fracture. Diffuse osseous demineralization. Chronic bilateral L5 pars interarticularis fractures with a grade 1 spondylolisthesis of L5 on S1. Joints: Pqip-nr-bhoycryc bilateral hip joint arthrosis. IMPRESSION: Acute nondisplaced fracture of the right inferior pubic ramus. Please note that all CT scans at this facility use dose modulation, iterative reconstruction, and/or weight-based dosing when appropriate to reduce radiation dose to as low as reasonably achievable. Dictated by Iron Mcleod MD @ 12/08/2023 5:18:37 PM (Electronically Signed)
--- NOTE | 2023-12-08 15:49 | CRLHL7_ITS ---
For Patients: As a result of the Century Cures Act, medical imaging exams and procedure reports are released immediately into your electronic medical record. You may view this report before your referring provider. If you have questions, please contact your health care provider. Indication: Fall Technique: Noncontrast axial CT of the cervical spine with coronal and sagittal reformats. Comparison: CT cervical spine 12/18/2021 Findings: The normal cervical lordosis is preserved. Trace anterolisthesis at C3-4, retrolisthesis at C5-6. Craniocervical junction appears within normal limits. No acute fracture identified. Scattered spondylosis, with low-grade neural foraminal narrowing. No significant spinal canal stenosis. No concerning findings in the paraspinal soft tissues. No pulmonary apical pneumothorax. Impression: 1. No evidence of acute fracture or traumatic malalignment in the cervical spine. Please note that all CT scans at this facility use dose modulation, iterative reconstruction, and/or weight-based dosing when appropriate to reduce radiation dose to as low as reasonably achievable. Dictated by Luz Burnett MD @ 12/08/2023 4:23:49 PM (Electronically Signed)
[2023-12-08] MEDS: ACETAMINOPHEN 500 MG TABLET 1000 MG PO (16:01)
--- OUTSIDE RECORDS SUMMARY | 2023-12-08 16:28 | XMS_ITS | Continuity of Care Document ---
Author Organization [facility] Address [address] [place] [address] Phone Care Team Providers Care Mirror Maker Name Role Phone Unavailable Unavailable Unavailable Advance Directives Directive Yes / No Effective Date File Name No Information Encounters Encounter Description Practice Location Reason(s) For Visit Diagnoses Date Provider Providers Copied on Encounter [facility] [place], [address], [place], [address], [place] tel:[phone] No Information 0 [phone] No Information [...]
--- OUTSIDE RECORDS SUMMARY | 2023-12-08 16:29 | XMS_ITS | Data Portability ---
Author Organization JUAN Fidelina Randy vanessa Seo, [email or web address]_ENDO_THOMAS_MOBILE [facility] Address [address] [place] [address] Care Team Providers Care Guide Tour Name Role Phone STEVEN JOE Primary Care Provider Assessment No assessment recorded. Plan of Treatment Reminders Order Date Submit Date Provider Last Modified By Organization Details Last Modified Time Details Appointments None recorded. Lab CBC w/ auto diff 2023 024 [facility] (Lab), [address], [place], [address], 4 18:06:19 CMP, serum or plasma 2023 024 [facility] (Lab), [address], [place], [address], 4 18:06:20 Referral gastroenter ologist referral [address] [facility], [address] [place] [address], [place], [address], 4 18:18:23 home health referral [email or web address], [address] [place] [address], [address], 4 10:30:52 Procedures None recorded. Surgeries None recorded. Imaging US, abdomen, limited 2023 024 [facility] (Radiology-Sc heduling), [address], [place], [address], 18:07:01 Medication Orders escitalopra m 20 mg tablet 2023 024 [facility] #[id number], [address] [facility], [place], [address], 15:39:30 Patient TargetsNo targets recorded. Patient Instructions Encounter Date Encounter Id Patient Instructions Last Modified By Organization Details Last Modified Time 03/23/2023 [id number] Reviewed hospita l records in office today Complete course of antibiotics Discussed bland diet and supplements like [facility] for PT strength training GI referral Order for labs and US in 2 weeks to follow up splenomegaly (likely secondary to COVID) Additional ER precautions discussed Fall precautions discussed Follow up in 2 weeks [email or web address] Not available 03/23/2023 12:41:51 03/30/2023 [id number] Increase lexapro to 20mg Discussed appetite and small frequent meals OTC Boost supplementation Continue PT as ordered Additional ER precautions discussed Follow up in 1 week [email or web address] Not available 03/30/2023 15:47:56 Reason for Referral Home Health Referral for Mus tomasa weakness PT for strength training Referring Physician: [facility], Encounter Date: 03/23/2023 Senior It Engineer Referral for CT of abdomen abnormal Referring Physician: [facility], Encounter Date: 03/23/2023 Results Created Date Observation Date Name Description Value Unit Range Abnormal Flag Note LastModifiedBy Organization Detail LastModifiedTime 03/23/19 24 03/17/2023 elect rocar diogr am No observ ation record ed. [email or web address] Not Available 2023 12:28:57 03/23/19 24 03/17/2023 elect rocar diogr am No observ ation record ed. [email or web address] Not Available 2023 12:28:57 03/23/19 24 03/17/2023 CT, abdom en + pelvi s, w/ contr ast No observ ation record ed. [email or web address] Not Available 2023 12:28:58 03/23/19 24 03/22/2023 jesu ospina am No observ ation record ed. [email or web address] Not Available 2023 12:28:58 Result Notes None recorded. Problems Name Problem SNOMED Code Status Onset Date Resolution Date Notes Provider Name and Address Organization Details Recorded Time Diverticuli tis 871815825 Active [address], [place], [address], [facility] 4 12:39:22 CT of abdomen abnormal 5717005377230 9107 Active 2023 Steven Joe PA-C [address], [place], [address], [facility] 4 12:39:23 Splenomegal y 99325226 Active 2023 Steven Joe PA-C [address], [place], [address], [facility] 4 12:39:25 Muscle weakness 53660764 Active 2023 Steven Joe PA-C [address], [place], [address], [facility] 4 12:39:26 COVID-19 733451074 Active [address], [place], [address], [facility] 4 12:39:27 Essential hypertensio n 91579158 Active 2023 Steven Joe PA-C [address], [place], [address], [facility] 4 12:39:29 Anxiety 13101666 Active 2023 Steven Joe PA-C [address], [place], [address] [place] [address] 12:39:30 Problem Notes None recorded. Procedures Surgical History Date Name Laterality Status Provider Name and Address Organization Details Recorded Time Colonoscopy completed Not Available [facility] 10:48:42 Orthopedic Surgery completed Not Available [facility] 03/23/2023 10:48:42 Knee arthroscopy/surg stanislav completed Cristy Tadeo [facility] 03/23/2023 11:17:58 lumpectomy of left breast completed Cristy Tadeo [facility] 03/23/2023 11:18:11 hammer toe operation completed Cristy [facility] 03/23/2023 11:18:42 Imaging Results Imaging Date Name Status LastModified by Organization Details LastModified Time 03/17/2023 electrocardiogram completed [email or web address] Informa tion not available 03/23/2023 12:28:57 03/17/2023 electrocardiogram completed [email or web address] Informa tion not available 03/23/2023 12:28:57 03/17/2023 CT, abdomen + pelvis, w/ contrast completed [email or web address] Information not available 03/23/2023 12:28:58 03/22/2023 electrocardiogram completed Informa tion not available 03/23/2023 12:28:58 Procedure [...] TAKE 1 TABLET BY MOUTH EVERY DAY 2023 active Not Available Not Available Not Avai lable Premarin 0.3 mg tablet 03/23 completed Not [...] Address Organization Details Last Updated DateTime 4 12817 g 99.4 [degF] 96 /min 96 % 96 % 14 /min 132 mm[Hg] 78 mm[Hg] Cristy Santiagoen [facility] 4 11:10:39 Date Recorded Body mass index (BMI) Body height Provider Name and Address Organization Details Last Updated DateTime 03/23/2023 24.2 kg/m2 149.86 cm Delvis Gomez [facility] 03/23/2023 11:02:50 Date Recorded Body height Body temperature Oxygen saturation Oxygen saturation in Arterial blood by Pulse oximetry Heart rate Systolic blood pressure Diastolic blood pressure Provider Name and Address Organization Details Last Updated DateTime 4 149.86 cm 99.3 [degF] 97 % 97 % 75 /min 128 mm[Hg] 70 mm[Hg] Cristy Tadeo [facility] 4 15:15:52 Social History Question Answer Notes [...] Age of this Age Resolved Age Notes LastModified by Organization Details LastModified Time Mother Malignant neoplastic disease [email or web address] Not available 2023 10:48:40 Brother Malignant neoplastic disease [email or web address] Not available 2023 10:48:40 Sister Malignant neoplastic disease [email or web address] Not available 2023 10:48:40 Medical History No medical history recorded. Gynecological HistoryNo gynecological history recorded. Obstetrics History GPAL:G 0 P 0 0 0 0 Immunizations Vaccine Type Date Status Provider Name and Address Organization Details Recorded Time influenza, unspecified formulation 10/30/2022 completed Cristy david [facility] 03/23/2023 11:15:40 SARS-COV-2 (COVID-19) vaccine, UNSPECIFIED 06/28/2020 completed Cristy david, [facility] 03/23/2023 11:16:06 SARS-COV-2 (COVID-19) vaccine, UNSPECIFIED 08/02/2020 completed Cristy david, [facility] 03/23/2023 11:16:30 COVID-19, mRNA, LNP-S, bivalent, PF, 30 mcg/0.3 mL dose 09/26/2021 completed Not Available [facility] 03/29/2023 00:25:13 COVID-19, mRNA, LNP-S, bivalent, PF, 30 mcg/0.3 mL dose 02/07/2023 completed Cristy david, [facility] 03/23/2023 11:17:37 Past Encounters Encounter ID Performer Location Encounter Start Date Encounter Closed Date Diagnosis/Indication Diagnosis SNOMED-CT Code Diagnosis ICD10 Code [id number] Steven Joe PA-C [facility] [address] [place] [address] 03/23/2023 10:21:19 03/23/2023 12:08:[address] [facility] men abnormal 1013215874 6494483 R93.5 Splenomegaly 82636539 R1 6.1 Muscle weakness 97270014 M62.81 COVID-19 486956732 U07.1 Essential hypertension 48497014 I10 Anxiety 21811020 F41.9 Nausea and vomiting 1693 2000 R11.2 [id number] Steven Joe PA-C [facility] [address] [place] [address] 03/30/2023 15:06:21 03/30/2023 16:13:24 Decrease in appetite 43171931 R63.0 Depressive disorder 3548 9007 F32.A Diverticulitis 602439418 K57.92 Splenomegaly 79327585 R1 6.1 Health Concerns Section Related Observation LastModified by Organization Detai ls LastModified Time None Recorded Concern Status LastModified by Organization Details LastModified Time None Recorded Advance Directives Directive Y: Payers Encounter Date Sequence Insurance Name Policy Number Policy Olivo Covered Member ID Olivo Member ID Guarantor Name 03/23/2023 2 MED[employer] (MEDICARE SUPPLEMENT) Darcy Colon [id number] Darcy Colon 03/23/2023 1 [employer] (MEDICARE REPLACEMENT/ ADVANTAGE - PFFS) Darcy Colon [id number] Darcy Colon 03/30/2023 1 [employer] (MEDICARE REPLACEMENT/ ADVANTAGE - PFFS) Darcy Colon [id number] Darcy Colon Notes Date Note Type Note Provider Name and Address Organization Details Recorded Time 03/23/2023 text/html HPI Notes: ORTHOPHOTO TECH/DRAFTSMAN to establish Prior PCP: Arlin PMHx: HTN, [...] home. Her is her primary caregiver. From [place]- returning in April Review of records showed diverticulitis with CT but that underlying malignancy could not be ruled out. Steven Joe PA-C [address], [place], [address], [place] [facility] [place] [facility] 03/23/2023 12:44:01 03/30/2023 text/html HPI Notes: Marcia nt is a 82 year old female who [...] coming 3x's/week. Steven Joe PA-C [address] [facility], [place], [address], [facility] [place] [facility] 03/30/2023 15:48:53 OBGyn Episode No OBEpisode recorded.
--- OUTSIDE RECORDS SUMMARY | 2023-12-08 16:29 | XMS_ITS ---
Author Organization [facility] Address [address] [place] [address] Care Team Providers Care Ordnance Artificer Helper Name Role Phone Elsewhere, Pcp Primary Care Provider Unavailabl e Active Problems * This document contains information received from the source organization and may not represent a complete record from that organization. 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 Treatments may have been administered in another [...]
--- OUTSIDE RECORDS SUMMARY | 2023-12-08 16:29 | XMS_ITS | Encounter Summary ---
Author Organization [facility] Address [address] [place] [address] Care Team Providers Care Dural Mechanic Name Role Phone Elsewhere, Pcp Primary Care Provider Unavailabl e Reason for Referral * Outpatient (Routine) - Authorized Specialty Diagnoses / Procedures Referred By Contbi t Referred To Contact Diagnoses Nodule Thyroid Procedures US Thyroid Minerva Albarran M.D. [address] [place] [phone] Phone: tel: fax: [facility] Referral ID Status Reason Start Date Expiration Date V isits Requested Visits Authorized [id number] Authorized 11/23/2023 11/22/2024 1 1 Encounter Details Date Type Department Care Team (Late st Contact Info) Description 11/23/2023 Orders Only Department of Oncology in [place], [place] [address] [place] [phone] Minerva Albarran M.D. [address] [place] [phone] Nodule Thyroid (Primary Dx) Social History Tobacco Use Types Packs/Day Years Used Date Smoking Tobacco: Former Cigarettes 0.3 14 0 09/04/1961 - 09/05/1975 Pipe Passive Smoke Exposure: Never Smokeless Tobacco: Never Comments:Havent smoked since 1975 Alcohol Use Standard Drinks/Week Comments Yes 1 (1 standard drink = 0.6 oz pure alcohol) approximately 1-2 servings of alcohol per 1-2 weeks. [facility] Utilities Answer Date Recorded In the past 12 months has th e electric, gas, oil, or water company threatened to [...] often do you attend chur ch or adventism services? More than 4 times per year 12/07/2021 Do you belong to any clubs o r organizations such as restorationist groups, unions, fraternal [...] Date Recorded PHQ-2 Score 0 06/12/2021 [facility] - [...] your living situation today? [facility] 05/31/2023 Education Answer Date Recorded What is the highest level of school you have completed or the highest degree you have received? 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 [address] [place] [phone] 12/13/2023 10:00 AM CDT Appointment Department of Radiology, [facility] in [address] [address] Minerva Albarran M.D. [address] [place] [phone] 12/13/2023 11:15 AM CDT Appointment Department of Radiology, [facility] in [address] [address] Minerva Albarran M.D. [address] [place] [phone] 12/19/2023 10:00 AM CDT Clinical Communication Virtual Review in [address] [address] 12/20/2023 1:30 PM CDT Office Visit Department of Oncology in [address] [address] Minerva Albarran M.D. [address] [place] [phone] Scheduled Orders Name Type Priority Associated Diagnoses Orde r Schedule US Thyroid Imaging RAD - Routine (m ost inpatients and all outpatients) Nodule Thyroid Expected: 11/22/2024, Expires: 02/21/2025 documented as of this encounter Visit Diagnoses Diagnosis Nodule Thyroid- Primary documented in this encounter Additional Health Concerns Infection Onset Date Last Indicated Resolved Time Protective Environment 04/12/2023 04/12/2023 Assessment Noted Time PHQ-9 Depression Total Score: 5 06/13/19 22 6:15 PM CDT documented as of this encounter Care Teams Dural Mechanic Relationship Specialty Start Date End Date Elsewhere, Pcp PCP - General Internal Medicine 05/10/21 documented as of this encounter
--- OUTSIDE RECORDS SUMMARY | 2023-12-08 16:29 | XMS_ITS ---
Author Organization [facility] Address [address] [place] [address] Care Team Providers Care Asphalt Paver Name Role Phone Unavailable Unavailable Unavailable Surgery Details Not on file Complications Check Surgery Details section. Procedure Estimated Blood Loss Check Surgery Details section. Procedure Findings Check Surgery Details section. Procedure Specimens Taken Check Surgery Details section.
--- OUTSIDE RECORDS SUMMARY | 2023-12-08 16:29 | XMS_ITS | Clinical Summary ---
Author Organization [facility] Address [address] [place] [id number] Care Team Providers Care Welfare Aide Name Role Phone Elsewhere, Pcp Primary Care Provider Unavailabl e Source Comments Patient records contain information from all sites at [facility]. For routine questions regarding patient records, call [phone] during business hours, M-F 8:00 AM - 5:00 PM Central Time. Record requests for emergency care only can be directed to [phone] at any time.[facility] Allergies No known active allergies Medications * This document contains information received from the source organization and may not represent a complete record from that organization. buPROPion XL (WELLBUTRIN XL) 150 mg 24 hr tablet Take 150 mg by mouth daily. 7 Active omeprazole (PriLOSEC) [address] capsule Take 20 mg by mouth at bedtime. 1 Active escitalopram (LEXAPRO) 20 mg tablet Take 20 mg by mouth daily. 2 Active dorzolamide-edmond oloL (COSOPT) 22.3-6.8 mg/mL ophthalmic solution Administer 1 [...] tablet Take 1,000 mcg by mouth daily. 02/11/202 4 Active thiamine (Vitamin B-1) 100 mg tablet Take 1 tablet by mouth daily. Active Hospital, Clinic, or Other Facility Administered Medication Ordered Dose Route Frequency Start Date End Date Status yhtgyfvodeu-bpplqerel-HWPZRXQ rine 0.25%-1%-1:200,000 injection 2-25 mLIndications:Squamous Cell Carcinoma In Situ 2 - 25 mL Ifil As needed 07/02/2020 Active Active Problems Problem Noted Date Diagnosed Date Nodule Thyroid [...] Encounters Date Type Department Care Team Description 11/23/2023 Orders Only Department of Oncology in [address] [phone] Minerva Albarran M.D. Nodule Thyroid (Primary Dx) 11/22/2023 Clinical Communication Department of Oncology in [address] [address] Minerva Albarran M.D. Results; Biopsy 11/21/2023 2:15 PM CDT - 11/21/2023 11:59 PM CDT Hospital Encounter Department of Radiology[address] [phone] Minerva Albarran M.D. Nodule Thyroid Discharge Disposition: Home or Self Care 10/24/2023 1:00 PM CDT Comprehensive Visit Department of Neurology in [address] [phone] Cristy Avery M.D., M.H.S. Decline Cognitive (Primary Dx) 10/15/2023 2:45 PM CDT Clinical Communication Virtual Review in [address] [phone] Pre-visit Intake 10/11/2023 11:17 AM CDT - 10/11/2023 11:59 PM CDT Hospital Encounter Department of Radiology[address] [address] Minerva Albarran M.D. 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 Nodule Thyroid (Primary Dx) 09/18/2023 2:01 PM CDT - 09/18/2023 11:59 PM CDT Hospital Encounter Department of Radiology, [facility], in [place], [place] [address] [place] [address] Minerva Albarran M.D. 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) Discharge Disposition: Home or Self Care 09/18/2023 11:00 AM CDT Comprehensive Visit Department of Dermatology in [place], [place] [address] [place] [address] Shannon Murray M.B.B.SAdalid Dermatoheliosis (Primary Dx); Nonscarring Hair Loss Unspecified; Cancer Skin Basal Cell Personal History; Telogen Effluvium; Screening Examination Skin Cancer; Keratosis Actinic; Angioma Chiang; Personal History Of Other Malignant Neoplasm Of Skin; Tumor Skin Uncertain Behavior Discharge Disposition: Home or Self Care 09/18/2023 Ancillary Procedure Department of Dermatology from Last 3 Months Immunizations Name Administration [...] Gil Avendano Mother Sanjana Sister 1 Karol Nash Sister 2 Karol Ardon Social History Tobacco Use Types Packs/Day Years Used Date Smoking Tobacco: Former Cigarettes 0.3 14 0 09/04/1961 - 09/05/1975 Pipe Passive Smoke Exposure: Never Smokeless Tobacco: Never Comments:Havent smoked since 1975 Alcohol Use Standard Drinks/Week Comments Yes 1 (1 standard drink = 0.6 oz pure alcohol) approximately 1-2 servings of alcohol per 1-2 weeks. [facility] Zoe Majesteities Answer Date Recorded In the past 12 months has [facility] My Single [employer], gas, oil, or water [employer] threatened to shut off services in your [...] often do you attend chur ch or hinduism services? More than 4 times per year 12/07/2021 Do you belong to any clubs o r organizations such as catholic groups, unions, fraternal or athletic groups, [...] 0 06/12/2021 [facility] Occupational Stress Questionnaire Answer Date Recorded [...] your living situation today? I have a [facility] place to live 05/31/2023 Education Answer Date Recorded What is the highest level of school you have completed or the highest degree you have received? 12th grade 09/21/2020 Comments Unknown Sex and Gender Information Value Date Recorded Sex Assigned at Female 12/07/2021 9:06 AM CDT Legal Sex Female 8:03 PM [employer] Gender Identity Female 05/10/2021 12:15 PM CDT Sexual Orientation Straight 05/10/2021 12 :15 PM CDT Last Filed Vital Signs Vital Sign Reading Time Taken Comments Blood Pressure 145/81 09/06/2023 3:29 PM CDT Pulse 80 09/06/2023 3:29 PM CDT Temperature 35.9 ??C (96.6 ??F) 09/06/2023 3:29 PM CD T Respiratory Rate 18 05/04/2023 1:06 PM [employer] SHE[employer]ER Oxygen Saturation 97% 04/23/2023 11:45 AM CLOTH SHEARER Inhaled Oxygen Concentration - - Weight 58 kg (127 lb 13.9 oz) 10/24/2023 12:28 P M CDT Height 150 cm (4' 11.06) 10/24/2023 12:28 PM CD T Body Mass Index 25.78 10/24/2023 12:28 PM CDT Plan of Treatment Upcoming Encounters Date Type Department Care Team (Latest Contact Info) Description 12/13/2023 9:30 AM CDT Appointment Department of Laboratory Medicine and Pathology, [facility], in [place], [place] [address] [place] [phone] Minerva Albarran M.D. [address] [place] [phone] 12/13/2023 10:00 AM CDT Appointment Department of Radiology, [facility], in [place], [place] [address] [place] [phone] Minerva Albarran M.D. [address] [place] [phone] 12/13/2023 11:15 AM CDT Appointment Department of Radiology, [facility], in [address] [phone] Minerva Albarran M.D. [address] [place] [phone] 12/19/2023 10:00 AM CDT Clinical Communication Virtual Review in [address] [phone] 12/20/2023 1:30 PM CDT Office Visit Department of Oncology in [address] [phone] Minerva Albarran M.D. [address] [place] [phone] Health Maintenance Due Date Last Done Comments RSV vaccine - (32-36 weeks) or 60+ years (1 - 1-dose 75+ series) 2016 Zoster Vaccines (2 of 2) 09/11/2018 07/17/2018, 08/27 COVID-19 Vaccine ( season) 2023 02/15/2023, 02/07/2023, 12/06/2021, Additional history exists Influenza Vaccine (#1) 2023 3, 12/06/2021, 12/01/2020, Additional history exists Office Visit [...] this topic Medical Devices Implanted Type Area Wholesale Buyer Device Identifier Shelf Expiration Date Model / Serial / Lot Breast Imaging Markers Imaging Marker Bilateral: Breast Total Left Knee Replacement Knee Implant Left: Knee Cataract Lenses-Bilatera l Ocular Lens Bilateral: Eye Procedures Procedure Name Priority Date/Time Associated Diagnosis Comments US THYROID RAD - Routine (most inpatients and all outpatients) 11/21/2023 4:05 PM CDT Nodule Thyroid MR BRAIN WITHOUT AND WITH IV CONTRAST [...] IMAGE EXAM Routine 09/18/2023 12:00 AM CDT from Last 3 Months Results * US Thyroid (11/21/2023 4:05 PM CDT) Anatomical Region Laterality Modality Head and Neck, Ultrasound RS T LOS, Ultrasound ARZ LOS, Ultrasound FLA LOS N/A Ultrasound Impressions 11/21/2023 5:16 PM CDT 1. ??Multiple bilateral thyroid nodules as detailed in findings. 2. ??9mm high suspicion nodule in the left lower thyroid corresponds to site of PET uptake on 09/18/23. Consider FNA. If no FNA is performed, recommend follow up in 1 year. 3. ??No cervical adenopathy. Narrative 11/21/2023 5:16 PM CDT EXAM: US THYROID COMPARISON: FDG PET/CT 09/18/2023 FINDINGS: The right thyroid lobe measures: 1.3 cm x 1.4 cm x 4.3 cm The left thyroid lobe measures: 1.2 cm x 1.5 cm x 3.2 cm The isthmus measures: 1.1 mm in AP diameter. Thyroid parenchymal evaluation shows: Multiple bilateral thyroid nodules, with remarkable nodules described below. Right thyroid lobe: A nodule in the lower right thyroid lobe measures 0.8 x 0.8 x 1.0 cm. This solid nodule is isoechoic and not taller than wide, with smooth margins and nondescript echogenic foci. ??The ultrasound score is 1. Based on the sonographic features, the nodule has low suspicion for malignancy. A nodule in the right upper thyroid lobe measures 0.6 x 0.2 x 0.5 cm spongiform nodule. Based on the sonographic features, the nodule has extremely low suspicion for malignancy. Left thyroid lobe: A nodule in the left lower thyroid lobe measures 0.6 x 0.9 x 0.9 cm. This solid nodule is isoechoic and not taller than wide, with smooth margins and multiple echogenic foci. This nodule demonstrated mild FDG avidity on the FDG PET/CT 09/18/2023. Based on the sonographic features, the nodule has high suspicion for malignancy. A nodule in the left lower thyroid lobe measures 0.3 x 0.4 x 0.4 cm. This solid nodule is isoechoic and not taller than wide, with smooth margins and macrocalcification. ??Based on the sonographic features, the nodule has intermediate suspicion for malignancy. A nodule in the left upper thyroid lobe measures 0.2 x 0.3 x 0.4 cm. This solid nodule is isoechoic and not taller than wide, with smooth margins and no echogenic foci. ??Based on the sonographic features, the nodule has low suspicion for malignancy. Lymph nodes: ??Neck levels 1-7 were surveyed and demonstrated no adenopathy. The thyroid nodule descriptions and categories are based on the AskMayoExpert Thyroid Nodule Care Process Model and ACR TI-RADS. Link: https://[email or web address].org/topic/clinical-answers/cnt-68933975/sec-203 60689 ?? ACR Link: ??https://www.acr.org/Clinical-Resources/Xtgkpztkk-iqm-Iqrf-Systems/TI-RADS The AskKsyoExpert Thyroid Nodule CPM states the following recommendations: ? No suspicion or Extremely low-suspicion nodule: No FNA, no imaging f/u ? Low-suspicion nodule: FNA if greater than or equal to 25 mm; US f/u in 2-5 yrs if greater than or equal to 15 mm ? Intermediate-suspicion nodule: FNA if greater than or equal to 15 mm; US f/u in 1-3 yrs if greater than or equal to 10 mm ? High-suspicion nodule: FNA if greater than or equal to 10 mm (or smaller if desired); US f/u in 1 yr if not FNA Procedure Note Libby Zimmer M.D. - 11/21/2023 EXAM: US THYROID COMPARISON: FDG PET/CT 09/18/2023 FINDINGS: The right thyroid lobe measures: 1.3 cm x 1.4 cm x 4.3 cm The left thyroid lobe measures: 1.2 cm x 1.5 cm x 3.2 cm The isthmus measures: 1.1 mm in AP diameter. Thyroid parenchymal evaluation shows: Multiple bilateral thyroid nodules,with remarkable nodules described below. Right thyroid lobe: A nodule in the lower right thyroid lobe measures 0.8 x 0.8 x 1.0 cm. Thissolid nodule is isoechoic and not taller than wide, with smooth marginsand nondescript echogenic foci. The ultrasound score is 1. Based on thesonographic features, the nodule has low suspicion for malignancy. A nodule in the right upper thyroid lobe measures 0.6 x 0.2 x 0.5 cmspongiform nodule. Based on the sonographic features, the nodule hasextremely low suspicion for malignancy. Left thyroid lobe: A nodule in the left lower thyroid lobe measures 0.6 x 0.9 x 0.9 cm. Thissolid nodule is isoechoic and not taller than wide, with smooth marginsand multiple echogenic foci. This nodule demonstrated mild FDG avidity onthe FDG PET/CT 09/18/2023. Based on the sonographic features, the nodule has high suspicion for malignancy. A nodule in the left lower thyroid lobe measures 0.3 x 0.4 x 0.4 cm. Thissolid nodule is isoechoic and not taller than wide, with smooth marginsand macrocalcification. Based on the sonographic features, the nodule hasintermediate suspicion for malignancy. A nodule in the left upper thyroid lobe measures 0.2 x 0.3 x 0.4 cm. Thissolid nodule is isoechoic and not taller than wide, with smooth marginsand no echogenic foci. Based on the sonographic features, the nodule haslow suspicion for malignancy. Lymph nodes: Neck levels 1-7 were surveyed and demonstrated noadenopathy. The thyroid nodule descriptions and categories are based on theAskMayoExpert Thyroid Nodule Care Process Model and ACR TI-RADS. Link:https://askmayoexpert.[facility].org/topic/clinical-answers/cnt-73181558/se c-203 47966 ACR Link:https://www.acr.org/Clinical-Resources/Ifrliafie-jga-Mluj-Systems/TI-RADS The AskMayoExpert Thyroid Nodule CPM states the followingrecommendations: No suspicion or Extremely low-suspicion nodule: No FNA, no imagingf/u Low-suspicion nodule: FNA if greater than or equal to 25 mm; US f/uin 2-5 yrs if greater than or equal to 15 mm Intermediate-suspicion nodule: FNA if greater than or equal to 15 mm;US f/u in 1-3 yrs if greater than or equal to 10 mm High-suspicion nodule: FNA if greater than or equal to 10 mm (orsmaller if desired); US f/u in 1 yr if not FNA IMPRESSION: 1. Multiple bilateral thyroid nodules as detailed in findings. 2. 9mm high suspicion nodule in the left lower thyroid corresponds tosite of PET uptake on 09/18/23. Consider FNA. If no FNA is performed,recommend follow up in 1 year. 3. No cervical adenopathy. us Minerva Albarran M.D. IMG US PROCEDURES Final Resu lt * MR Brain without and with IV [...] cerebral and cerebellarvolume loss. Minerva Albarran M.D. [facility] [place] PROCEDURES Final Res ult * PET CT Skull to Thigh FDG [...] RADIOPHARMACEUTICAL/MEDS: Route: intravenous fludeoxyglucose F 18 injection RETIREMENT (FDG F-18),3.19 millicurie TECHNIQUE: ??F-18 FDG PET/CT [...] RADIOPHARMACEUTICAL/MEDS: Route: intravenous fludeoxyglucose F 18 injection RETIREMENT (FDG F-18),3.19 millicurie TECHNIQUE: F-18 FDG PET/CT [...] equals1. Minerva Albarran M.D. IM NM PROCEDURES Final Resu lt * Chest 521-Dermatology Image Exam (09/18/2023 12:00 AM CDT) Narrative [facility] - 09/18/2023 4:07 PM CDT This order has been created and auto-finalized to support the import of images acquired without order. The clinical documentation to support these images can be found on the encounter that produced images. us Provider Not In System IMG NON RAD IMAGING PROCE DURES Final Result [facility] NA from Last 3 Months Additional Health Concerns Infection Onset Date Last Indicated Protective Environment 04/12/2023 Insurance MEDICARE MEDIC Advance Directives For more information, please contact: [phone] * DNR (Latest Code Status on File) Date Activated Date Inactivated Comments 04/02/2023 4:50 PM 04/23/2023 2:38 PM * Full Code Date Activated Date Inactivated Comments 04/02/2023 3:47 PM 04/02/2023 4:50 PM Question Answer Comments Full Code: Not Discussed Due to: Patient does not have the collinsi Care Teams Welfare Aide Relationship Specialty Start Date End Date Elsewhere, Pcp PCP - General Internal Medicine 05/10/21
--- OUTSIDE RECORDS SUMMARY | 2023-12-08 16:29 | XMS_ITS | Referral Summary ---
Author Organization [facility] Address [address] [place] [address] Care Team Providers Care Noise Abatement Engineer Name Role Phone Elsewhere, Pcp Primary Care Provider Unavailabl e Source Comments Patient records contain information from all sites at [facility]. For routine questions regarding patient records, call [phone] during business hours, M-F 8:00 AM - 5:00 PM Central Time. Record requests for emergency care only can be directed to [phone] at any time.[facility] Encounters Date Type Department Care Team Description 11/23/2023 Orders Only Department of Oncology in [place], [place] [address] [place] [address] Minreva Albarran M.D. Nodule Thyroid (Primary Dx) 11/22/2023 Clinical Communication Department of Oncology in [address] [address] Minerva Albarran M.D. Results; Biopsy 11/21/2023 2:15 PM CDT - 11/21/2023 11:59 PM CDT Hospital Encounter Department of Radiology, [facility], in [place], [place] [address] [place] [address] Minerva Albarran M.D. Nodule Thyroid Discharge Disposition: Home or Self Care 10/24/2023 1:00 PM CDT Comprehensive Visit Department of Neurology in [place], [place] [address] [place] [address] Cristy Avery M.D., M.H.S. Decline Cognitive (Primary Dx) 10/15/2023 2:45 PM CDT Clinical Communication Virtual Review in [place], [place] [address] [place] [address] Pre-visit Intake 10/11/2023 11:17 AM CDT - 10/11/2023 11:59 PM CDT [facility] [place] [place] [address] [place] [phone] Minerva Albarran M.D. 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 Nodule Thyroid (Primary Dx) 09/18/2023 Ancillary Procedure Department of Dermatology 09/18/2023 2:01 PM CDT - 09/18/2023 11:59 PM CDT Hospital Encounter Department of [facility] in [address] [address] Minerva Albarran M.D. 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.] tablet Take 1,000 mcg by mouth daily. 4 Active thiamine (Vitamin B-1) 100 mg tablet Take 1 tablet by mouth daily. 4 Active Hospital, Clinic, or Other Facility Administered Medication Ordered Dose Route Frequency Start Date End Date Status yuittxwpeet-ezgogqusr-JHVHYLW rine 0.25%-1%-1:200,000 injection 2-25 mLIndications:Squamous Cell Carcinoma [...] 1-2 servings of alcohol per 1-2 weeks. [facility] Cocrystal Discovery Answer Date Recorded In the past 12 months has [employer], oil, or water [employer] threatened to shut off services in your [...] How often do you attend [facility] or denominational services? More than 4 times per year 12/07/2021 Do you belong to any clubs o r organizations such as congregation groups, unions, fraternal [...] Answer Date Recorded PHQ-2 Score 0 06/12/2021 [facility] - [...] your living situation today? I have a [facility] place to live 05/31/2023 Education Answer Date Recorded What is the highest level of school you have completed or the highest degree you have received? 12th grade 09/21/2020 Comments Unknown Sex and Gender Information Value Date Recorded Sex Assigned at Female 12/07/2021 9:06 AM CDT Legal Sex Female 8:03 PM POWER GENERATION PLANT OPERATOR Gender Identity Female 05/10/2021 12:15 PM CDT Sexual Orientation Straight 05/10/2021 12 :15 PM CDT Last Filed Vital Signs Vital Sign Reading Time Taken Comments Blood Pressure 145/81 09/06/2023 3:29 PM CDT Pulse 80 09/06/2023 3:29 PM CDT Temperature 35.9 ??C (96.6 ??F) 09/06/2023 3:29 PM CD T Respiratory Rate 18 05/04/2023 1:06 PM POWER GENERATION PLANT OPERATOR Oxygen Saturation 97% 04/23/2023 11:45 AM POWER GENERATION PLANT OPERATOR Inhaled Oxygen Concentration - - Weight 58 kg (127 lb 13.9 oz) 10/24/2023 12:28 P M CDT Height 150 cm (4' 11.06) 10/24/2023 12:28 PM CD T Body Mass Index 25.78 10/24/2023 12:28 PM CDT Plan of Treatment Upcoming Encounters Date Type Department Care Team (Latest Contact Info) Description 12/13/2023 9:30 AM CDT Appointment Department of Laboratory Medicine and Pathology, [facility], in [place], [place] [address] [place] [address] Minerva Albarran M.D. [address] [place] [phone] 12/13/2023 10:00 AM CDT Appointment Department of Radiology, [facility], in [place], [place] [address] [place] [phone] Minerva Albarran M.D. [address] [place] [phone] 12/13/2023 11:15 AM CDT Appointment Department of Radiology, [facility], in [place], [place] [address] [place] [phone] Minerva Albarran M.D. [address] [place] [phone] 12/19/2023 10:00 AM CDT Clinical Communication Virtual Review in [place], [place] [address] [place] [address] 12/20/2023 1:30 PM CDT Office Visit Department of Oncology in [address] [address] Minerva Albarran M.D. [address] [place] [phone] Medical Devices Implanted Type Area Armor Reconnaissance Vehicle Crewman Device Identifier Shelf Expiration Date Model / [...] Care Process Model and ACR TI-RADS. Link: https://askmayoexpert.[facility].org/topic/clinical-answers/cnt-79760611/sec-203 43595 ?? ACR Link: ??https://www.acr.org/Clinical-Resources/Fgylqjqtw-bng-Osoq-Systems/TI-RADS The AskMayoExpert Thyroid Nodule CPM states the following recommendations: [...] Nodule Care Process Model and ACR TI-RADS. Link:https://askmayoexpert.[facility].org/topic/clinical-answers/cnt-78265886/se c-831 44172 ACR Link:https://www.acr.org/Clinical-Resources/Lngkmsqhb-ojr-Pbot-Systems/TI-RADS The AskMayoExpert Thyroid Nodule CPM states the [...] Region Laterality Modality Head, Brain, Neuroradiology RST [facility], Neuroradiology ARZ [facility], Neuroradiology FLA [facility] N/A Magnetic Resonance Impressions 10/11/2023 [...] cerebral and cerebellarvolume loss. Minerva Albarran M.D. IMManjula MRI PROCEDURES Final Res ult * PET [...] RADIOPHARMACEUTICAL/MEDS: Route: intravenous fludeoxyglucose F 18 injection SNF (FDG F-18),3.19 millicurie TECHNIQUE: ??F-18 FDG PET/CT [...] RADIOPHARMACEUTICAL/MEDS: Route: intravenous fludeoxyglucose F 18 injection SNF (FDG F-18),3.19 millicurie TECHNIQUE: F-18 FDG PET/CT [...] Otherwise Deauville score equals1. Minerva Albarran M.D. IMG NM PROCEDURES Final Resu lt * Chest 521-Dermatology Image Exam (09/18/2023 12:00 AM CDT) Narrative IIMS - 09/18/2023 4:07 PM CDT This order has been created and auto-finalized to support the import of images acquired without order. The clinical documentation to support these images can be found on the encounter that produced images. us Provider Not In System IMG NON RAD IMAGING PROCE NEVIN Final Result IIMS NA from Last 3 Months Additional Health Concerns Infection Onset Date Last Indicated Protective Environment 04/12/2023 4 Insurance MEDICARE MEDICA Advance Directives For more information, please contact: [phone] * DNR (Latest Code Status on File) Date Activated Date Inactivated Comments 04/02/2023 4:50 PM 04/23/2023 2:38 PM * Full Code Date Activated Date Inactivated Comments 04/02/2023 3:47 PM 04/02/2023 4:50 PM Question Answer Comments Full Code: Not Discussed Due to: Patient does not have the [facility] Care Teams Noise Abatement Engineer Relationship Specialty Start Date End Date Elsewhere, Pcp PCP - General Internal Medicine 05/10/21
--- OUTSIDE RECORDS SUMMARY | 2023-12-08 16:30 | XMS_ITS | Encounter Summary ---
Author Organization [facility] Address [address] [place] [address] Care Team Providers Care Transit Man Name Role Phone Elsewhere, Pcp Primary Care [...] 1-2 servings of alcohol per 1-2 weeks. [facility] Utilities Answer Date Recorded In the past 12 months has e [employer], gas, oil, or water [employer] threatened to shut off services in your [...] How often do you attend chur or cheondoism services? More than 4 times per year 12/07/2021 Do you belong to any clubs o r organizations such as yarsani groups, unions, fraternal [...] Answer Date Recorded PHQ-2 Score 0 06/12/2021 [facility] - Occupational [...] your living situation today? I have a [facility] place to live 05/31/2023 Education Answer Date Recorded What is the highest level of school you have completed or the highest degree you have received? 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 [address] [place] [phone] 12/13/2023 10:00 AM CDT Appointment Department of Radiology, [facility] in [place], [place] [address] [place] [address] Minerva Albarran M.D. 200 [place] [address] 12/13/2023 11:15 AM CDT Appointment Department of Radiology, [facility], in [place], [place] [address] [place] [phone] Minerva Albarran M.D. [address] [place] [phone] 12/19/2023 10:00 AM CDT Clinical Communication Virtual Review in [place], [place] [address] [place] [address] 12/20/2023 1:30 PM CDT Office Visit Department of Oncology in [place], [place] [address] [place] [phone] Minerva Albarran M.D. [address] [place] [phone] documented as of this encounter Procedures Procedure [...] IMAGING PROCE DURES Final Result IIMS NA documented in this encounter Visit Diagnoses Not on filedocumented in this encounter Additional Health Concerns Infection Onset Date Last Indicated Resolved Time Protective Environment 04/12/2023 04/12/2023 Assessment Noted Time PHQ-9 Depression Total Score: 5 06/13/19 22 6:15 PM CDT documented as of this encounter Care Teams Transit Man Relationship Specialty Start Date End Date Elsewhere, Pcp PCP - General Internal Medicine 05/10/21 documented as of this encounter
--- OUTSIDE RECORDS SUMMARY | 2023-12-08 16:30 | XMS_ITS | Encounter Summary ---
Author Organization [facility] Address [address] [place] [address] Care Team Providers Care Residential Mortgage Underwriter Name Role Phone Elsewhere, Pcp Primary Care Provider Unavailabl e Reason for Referral * Outpatient (Routine) - Closed Specialty Diagnoses / Procedures Referred By Contac t Referred To Contact Diagnoses Nodule Thyroid Procedures US Thyroid Minerva Albarran M.D. [address] [place] [address] Phone: tel: fax: [facility] Referral ID Status Reason Start Date Expiration Date Visits Re quested Visits Authorized [id number] Closed 09/21/2023 09/20/2024 1 1 Reason for Visit * Outpatient (Routine) - Closed Specialty Diagnoses / Procedures Referred By Rodolfo hyman Referred To Contact Diagnoses Nodule Thyroid Procedures US Thyroid Minerva Albarran M.D. [address] [place] [address] Phone: tel: fax: [facility] Referral ID Status Reason Start Date Expiration Date Visits Re quested Visits Authorized [id number] Closed 09/21/2023 09/20/2024 1 1 Encounter Details Date Type Department Care Team (Latest Contact Info) Description 11/21/2023 2:15 PM CDT - 11/21/2023 11:59 PM CDT Hospital Encounter Department of Radiology, [facility], in [place], [place] [address] [place] [address] Minerva Albarran M.D. [address] [place] [address] Nodule Thyroid Discharge Disposition: Home or Self Care Social History Tobacco Use Types Packs/Day Years Used Date Smoking Tobacco: Former Cigarettes 0.3 14 0 09/04/1961 - 09/05/1975 Pipe Passive Smoke Exposure: Never Smokeless Tobacco: Never Comments:Havent smoked since 1975 Alcohol Use Standard Drinks/Week Comments Yes 1 (1 standard drink = 0.6 oz pure alcohol) approximately 1-2 servings of alcohol per 1-2 weeks. [facility] Utilities Answer Date Recorded In the past 12 months has e [employer], gas, oil, or water company threatened to [...] often do you attend chur ch or catholic services? More than 4 times per year 12/07/2021 Do you belong to any clubs o r organizations such as cheondoism groups, unions, fraternal [...] Date Recorded PHQ-2 Score 0 06/12/2021 [facility] Occupat ional [facility] - Occupational Stress Questionnaire Answer Date [...] your living situation today? I have a [facility] place to live 05/31/2023 Education Answer Date Recorded What is the highest level of school you have completed or the highest degree you have received? 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 brimonidine (ALPHAGAN) 0.2 % ophthalmic solution Administer 1 drop into both eyes 2 (two) times a day. buPROPion XL (WELLBUTRIN XL) 150 mg 24 hr tablet Take 150 mg by mouth daily. 02/09/2017 dorzolamide-nancy loL (COSOPT) 22.3-6.8 mg/mL ophthalmic solution Administer 1 [...] Appointment Department of Laboratory Medicine and Pathology, [facility], in [place] [address] [address] [place] [address] Minerva Albarran M.D. [address] [place] [phone] 12/13/2023 10:00 AM CDT Appointment Department of Radiology, [facility], in [address] [address] Minerva Albarran M.D. [address] [place] [phone] 12/13/2023 11:15 AM CDT Appointment Department of Radiology, [facility], in [address] [address] Minerva Albarran M.D. [address] [place] [phone] 12/19/2023 10:00 AM CDT Clinical Communication Virtual Review in [address] [phone] 12/20/2023 1:30 PM CDT Office Visit Department of Oncology in [address] [address] Minerva Albarran M.D. [address] [place] [phone] documented as of this encounter Procedures Procedure Name Priority Date/Time Associated Diagnosis Comments US THYROID RAD - Routine (most inpatients and all outpatients) 11/21/2023 4:05 PM CDT Nodule Thyroid documented in this encounter Results * US Thyroid (11/21/2023 4:05 PM [...] Care Process Model and ACR TI-RADS. Link: https://askmayoexpert.[facility].org/topic/clinical-answers/cnt-46416531/sec-203 50474 ?? ACR Link: ??https://www.acr.org/Clinical-Resources/Ndwzzrrch-meu-Arwd-Systems/TI-RADS The AskMayoExpert Thyroid Nodule CPM states the [...] Nodule Care Process Model and ACR TI-RADS. Link:https://askmayoexpert.[facility].org/topic/clinical-answers/cnt-20153393/se c-203 37708 ACR Link:https://www.acr.org/Clinical-Resources/Dlsdfonnl-ypd-Nuuk-Systems/TI-RADS The AskMayoExpert Thyroid Nodule CPM states the [...] M.D. IMG US PROCEDURES Final Resu lt documented in this encounter Visit Diagnoses Diagnosis Nodule Thyroid documented in this encounter Additional Health Concerns Infection Onset Date Last Indicated Resolved Time Protective Environment 04/12/2023 04/12/2023 Assessment Noted Time PHQ-9 Depression Total Score: 5 06/13/19 22 6:15 PM CDT documented as of this encounter Care Teams Residential Mortgage Underwriter Relationship Specialty Start Date End Date Elsewhere, Pcp PCP - General Internal Medicine 05/10/21 documented as of this encounter
--- OUTSIDE RECORDS SUMMARY | 2023-12-08 16:30 | XMS_ITS | Encounter Summary ---
Author Organization [facility] Address [address] [place] [address] Care Team Providers Care Paint Stock Clerk Name Role Phone Elsewhere, Pcp Primary Care Provider Unavailabl e Reason for Referral * Outpatient (Routine) - Closed Specialty Diagnoses / Procedures Referred By Contbi t Referred To Contact Diagnoses Nodule Thyroid Procedures US Thyroid Minerva Albarran M.D. [address] [place] [phone] Phone: tel: fax: [facility] Referral ID Status Reason Start Date Expiration Date Visits Re quested Visits Authorized [id number] Closed 09/21/2023 09/20/2024 1 1 Encounter Details Date Type Department Care Team (Late st Contact Info) Description 09/21/2023 Orders Only Department of Oncology in [place], [place] [address] [place] [phone] Minerva Albarran M.D. [address] [place] [phone] Nodule Thyroid (Primary Dx) Social History Tobacco Use Types Packs/Day Years Used Date Smoking Tobacco: Former Cigarettes 0.3 14 0 09/04/1961 - 09/05/1975 Pipe Passive Smoke Exposure: Never Smokeless Tobacco: Never Comments:Havent smoked since 1975 Alcohol Use Standard Drinks/Week Comments Yes 1 (1 standard drink = 0.6 oz pure alcohol) approximately 1-2 servings of alcohol per 1-2 weeks. [facility] Utilities Answer Date Recorded In [...] often do you attend chur ch or yarsani services? More than 4 times per year 12/07/2021 Do you belong to any clubs o r organizations such as episcopalian groups, unions, fraternal [...] Score 0 06/12/2021 [facility] Occupat ional Health - Occupational [...] have a [facility] place to live 05/31/2023 Education Answer Date Recorded What is the highest level of school you have completed or the highest degree you have received? 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 in [address] [phone] Minerva Albarran M.D. [address] [place] [phone] 12/13/2023 10:00 AM CDT Appointment Department of Radiology, [facility] in [address] [phone] Minerva Albarran M.D. [address] [place] [phone] 12/13/2023 11:15 AM CDT Appointment Department of Radiology, [facility] in [address] [phone] Minerva Albarran M.D. [address] [place] [phone] 12/19/2023 10:00 AM CDT Clinical Communication Virtual Review in [address] [phone] 12/20/2023 1:30 PM CDT Office Visit Department of Oncology in [address] [phone] Minerva Albarran M.D. [address] [place] [phone] documented as of this encounter Results * US Thyroid (11/21/2023 [...] descriptions and categories are based on the AskClam GulchExpert Thyroid Nodule Care Process Model and ACR TI-RADS. Link: https://askvtyoexpert.[facility]/topic/clinical-answers/cnt-76910076/sec-203 29265 ?? ACR Link: ??https://www.acr.org/Clinical-Resources/Ogumcghjy-kzr-Uxdb-Systems/TI-RADS The AskMayoExpert Thyroid Nodule CPM states the [...] Nodule Care Process Model and ACR TI-RADS. Link:https://askmayoexpert.[facility].org/topic/clinical-answers/cnt-78957006/se c-801 96487 ACR Link:https://www.acr.org/Clinical-Resources/Clfjsmkkm-swp-Ckei-Systems/TI-RADS The AskMayoExpert Thyroid Nodule CPM states the [...] in this encounter Visit Diagnoses Diagnosis Nodule Thyroid- Primary Nodule Thyroid documented in this encounter Additional Health Concerns Infection Onset Date Last Indicated Resolved Time Protective Environment 04/12/2023 04/12/2023 Assessment Noted Time PHQ-9 Depression Total Score: 5 06/13/19 22 6:15 PM CDT documented as of this encounter Care Teams Paint Stock Clerk Relationship Specialty Start Date End Date Elsewhere, Pcp PCP - General Internal Medicine 05/10/21 documented as of this encounter
--- OUTSIDE RECORDS SUMMARY | 2023-12-08 16:30 | XMS_ITS | Encounter Summary ---
Author Organization [facility] Address [address] [place] [address] Care Team Providers Care Director Of Catering Name Role Phone Elsewhere, Pcp Primary Care Provider Unavailabl e Reason for Visit * Reason Onset Date Comments ARF REFERRAL 09/03/2023 Encounter Details Date Type Department Care Team (Late st Contact Info) Description 09/03/2023 Clinical Communication Department of Dermatology in [place], [place] [address] [place] [address] [place] [phone] Italia Valdez, RAdalidN. [address] [place] [address] ARF REFERRAL Social History Tobacco Use Types [...] Recorded In the past 12 months has [facility] [employer] gas, oil, or water [employer] [place] threatened to shut off services in your [...] How often do you attend chur or uatsdin services? More than 4 times per year 12/07/2021 Do you belong to any clubs o r organizations such as anglican groups, unions, fraternal [...] Answer Date Recorded PHQ-2 Score 0 06/12/2021 [facility] of Occupat ional Health - Occupational Stress [...] living situation today? I have a [facility] place to live 05/31/2023 Education Answer Date Recorded What is the highest level of school you have completed or the highest degree you have received? 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 [address] [place] [address] 12/13/2023 10:00 AM CDT Appointment Department of Radiology, [facility], in [place], [place] [address] [place] [phone] Minerva Albarran M.D. [address] [place] [phone] 12/13/2023 11:15 AM CDT Appointment Department of Radiology, [facility], in [place], [place] [address] [place] [phone] Minerva Albarran M.D. [address] [place] [phone] 12/19/2023 10:00 AM CDT Clinical Communication Virtual Review in [place], [place] 200 [place] [address] 12/20/2023 1:30 PM CDT Office Visit Department of Oncology in [place], [place] [address] [place] [phone] Minerva Albarran M.D. [address] [place] [phone] documented as of this encounter Visit Diagnoses Not on filedocumented in this encounter Additional Health Concerns Infection Onset Date Last Indicated Resolved Time Protective Environment 04/12/2023 04/12/2023 Assessment Noted Time PHQ-9 Depression Total Score: 5 06/13/19 22 6:15 PM CDT documented as of this encounter Care Teams Director Of Catering Relationship Specialty Start Date End Date Elsewhere, Pcp PCP - General Internal Medicine 05/10/21 documented as of this encounter
--- OUTSIDE RECORDS SUMMARY | 2023-12-08 16:30 | XMS_ITS | Encounter Summary ---
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 200 [place] [address] Phone: tel: fax: [facility] Referral ID Status Reason Start Date Expiration Date Visits Re quested Visits Authorized [id number] Closed 09/06/2023 09/05/2024 1 1 Encounter Details Date Type Department Care Team (Latest Contact Info) Description 10/11/2023 11:17 AM CDT - 10/11/2023 11:59 PM CDT Hospital Encounter Department of Radiology, [facility] in [place], [place] [address] [place] [address] Minerva Albarran M.D. [address] [place] [address] Encephalopathy Metabolic; Unspecified Dementia Unspecified Severity Without [...] 1-2 servings of alcohol per 1-2 weeks. [facility] [employer] Answer Date Recorded In the past 12 months has [email or web address], gas, oil, or water [employer] threatened to shut off services in your [...] week 12/07/2021 How often do you attend [facility] or synagogue services? More than 4 times per year 12/07/2021 Do you belong to any clubs o r organizations such as confucianism groups, unions, fraternal [...] your living situation today? I have a [facility] place to live 05/31/2023 Education Answer Date Recorded What is the highest level of school you have completed or the highest degree you have received? 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 [address] [place] [phone] 12/13/2023 10:00 AM CDT Appointment Department of Radiology, [address] [phone] Minerva Albarran M.D. [address] [place] [phone] 12/13/2023 11:15 AM CDT Appointment Department of Radiology, [address] [phone] Minerva Albarran M.D. [address] [place] [phone] 12/19/2023 10:00 AM CDT Clinical Communication Virtual Review in [address] [phone] 12/20/2023 1:30 PM CDT Office Visit Department of Oncology in [address] [phone] Minerva Albarran M.D. [address] [place] [phone] documented as of this encounter Procedures Procedure [...] M.D. IMManjula MRI PROCEDURES Final Res ult documented in this encounter Visit Diagnoses Diagnosis [...] documented as of this encounter Care Teams Heating Operators Engineer Relationship Specialty Start Date End Date Elsewhere, Pcp PCP - General Internal Medicine 05/10/21 documented as of this encounter
--- OUTSIDE RECORDS SUMMARY | 2023-12-08 16:30 | XMS_ITS | Encounter Summary ---
Author Organization [facility] Address [address] [place] [address] Care Team Providers Care Front Desk Coordinator Name Role Phone Elsewhere, Pcp Primary Care Provider Unavailabl e Reason for Referral * Outpatient (Routine) - Closed Specialty Diagnoses / Procedures Referred By Contac t Referred To Contact Dermatology Shannon Murray M.B.B.S. [address] [place] [address] Phone: tel: fax: Shannon Murray M.B.B.S. [address] [place] [address] Phone: tel: fax: Referral ID Status Reason Start Date Expiration Date Visits Re quested Visits Authorized [id number] Closed 09/18/2023 03/19/2025 1 1 Reason for Visit * Outpatient (Routine) - Closed Specialty Diagnoses / Procedures Referred By Contac t Referred To Contact Dermatology Diagnoses Psoriasis Nonscarring Hair Loss Unspecified Cancer Skin Basal Cell Personal History Gisele Curran M.D. [address] [place] [address] Phone: tel: fax: [facility] Referral ID Status Reason Start Date Expiration Date Visits Re quested Visits Authorized [id number] Closed 08/28/2023 02/26/2025 1 1 Encounter Details Date Type Department Care Team (Latest Contact Info) Description 09/18/2023 11:00 AM CDT Comprehensive Visit Department of Dermatology in [place], [place] [address] [place] [address] Shannon Murray M.B.BAdalidS. [address] [place] [address] Dermatoheliosis (Primary Dx); Nonscarring Hair Loss Unspecified; [...] 1-2 servings of alcohol per 1-2 weeks. [facility] Performance Labities Answer Date Recorded In the past 12 months has e [employer], gas, oil, or water [employer] threatened to shut off services in your [...] How often do you attend chur or worship services? More than 4 times per year 12/07/2021 Do you belong to any clubs o r organizations such as shinto groups, unions, fraternal [...] Answer Date Recorded PHQ-2 Score 0 06/12/2021 [facility] of Occupat ional Health - Occupational Stress [...] your living situation today? I have a [facility] to live 05/31/2023 Education Answer Date Recorded What is the highest level of school you have completed or the highest degree you have received? 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 - 09/18/2023 11:00 AM CDT [address] - Outpatient Dermatology Supervised by: Shannon Murray,* Correspondence to: Shannon Murray,* SUBJECTIVE Chief Complaint/Reason for visit Alopecia History of Present Illness Ms. Darcy Colon is a 83 y.o. female who presents today, unaccompanied, for the above. Last visit: She was last seen by [facility] in October 2022 for a full [...] Mohssurgery on 03/04/[address] Turner at [facility] 3. Upper central sternum: History of grade 2 squamous cell carcinoma, status post Mohs surgery on 07/02/[address] Wright at [facility] 4. Left harrell: History of squamous cell carcinoma in situ, status post electrodesiccation and curettage on 07/02/[address] Wright at [facility] 5. Left lateral neck : BCC s/p MMS 12/26/[address] Wright at [facility] OBJECTIVE Physical Examination General: Awake, [...] answered. Follow-up: October 04 Gaurav Cedillo M.D. Cosigned by Shannon Murray M.B.B.S. at 09/18/2023 12:56 PM CDT Associated attestation - Shannon Murray M.B.B.S. - [...] of the scalp. She could try using [id number]-[id number] minoxidil 5% foam. Discussed that she will need to use this consistently for about 6 months before seeing results. documented in this encounter Plan of Treatment Upcoming Encounters Date Type Department Care Team (Latest Contact Info) Description 12/13/2023 9:30 AM CDT Appointment Department of Laboratory Medicine and Pathology, [facility] in [place], [place] [address] [place] [address] Minerva Albarran M.D. [address] [place] [phone] 12/13/2023 10:00 AM CDT Appointment Department of Radiology, [facility], in [place], [place] [address] [place] [address] Minerva Albarran M.D. [address] [place] [phone] 12/13/2023 11:15 AM CDT Appointment Department of Radiology, [facility], in [place], [place] [address] [place] [phone] Minerva Albarran M.D. [address] [place] [phone] 12/19/2023 10:00 AM CDT Clinical Communication Virtual Review in [place], [place] 200 [place] [address] 12/20/2023 1:30 PM CDT Office Visit Department of Oncology in [place], [place] [address] [place] [phone] Minerva Albarran M.D. [address] [place] [phone] Scheduled Referrals Name Type Priority Associated Diagnoses [...] documented as of this encounter Care Teams Front Desk Coordinator Relationship Specialty Start Date End Date Elsewhere, Pcp PCP - General Internal Medicine 05/10/21 documented as of this encounter
--- OUTSIDE RECORDS SUMMARY | 2023-12-08 16:30 | XMS_ITS | Encounter Summary ---
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 Phone Elsewhere, Pcp Primary Care Provider Unavailabl e Reason for Visit * Reason Onset Date Comments Pre-visit Intake 10/15/2023 Encounter Details Date Type Department Care Team (Latest Contact Info) Description 10/15/2023 2:45 PM CDT Clinical Communication Virtual Review in [place], [place] 200 [place] [address] Pre-visit Intake Social History Tobacco Use Types Packs/Day Years Used Date Smoking Tobacco: Former Cigarettes 0.3 14 0 09/04/1961 - 09/05/1975 Pipe Passive Smoke Exposure: Never Smokeless Tobacco: Never Comments:Havent smoked since 1975 Alcohol Use Standard Drinks/Week Comments Yes 1 (1 standard drink = 0.6 oz pure alcohol) approximately 1-2 servings of alcohol per 1-2 weeks. [facility] Utilities Answer Date Recorded In the past 12 months has [facility], gas, oil, or water [employer] threatened to shut off services in your [...] How often do you attend chur or roman catholic services? 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 200 [place] [address] 12/13/2023 10:00 AM CDT Appointment Department of Radiology, [facility], in [place], [place] [address] [place] [phone] Minerva Albarran M.D. [address] [place] [phone] 12/13/2023 11:15 AM CDT Appointment Department of Radiology, [facility], in [place], [place] [address] [place] [phone] Minerva Albarran M.D. [address] [place] [phone] 12/19/2023 10:00 AM CDT Clinical Communication Virtual Review in [place], [place] 200 [place] [address] 12/20/2023 1:30 PM CDT Office Visit Department of Oncology in [place], [place] [address] [place] [phone] Minerva Albarran M.D. 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
--- OUTSIDE RECORDS SUMMARY | 2023-12-08 16:30 | XMS_ITS | Encounter Summary ---
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 [address] [place] [address] Marginal Zone Lymphoma Splenic (HCC) Discharge Disposition: [...] 1-2 servings of alcohol per 1-2 weeks. [facility] Utilities Answer Date Recorded In the past 12 months has e [employer], gas, oil, or water [employer] threatened to shut off services in your [...] week 12/07/2021 How often do you attend [facility] or yazidi services? More than 4 times per year 12/07/2021 Do you belong to any clubs o r organizations such as congregational groups, unions, fraternal or athletic groups, or [...] Answer Date Recorded PHQ-2 Score 0 06/12/2021 [facility] [place] of Occupat ional Health - Occupational Stress [...] your living situation today? I have a [facility] place to live 05/31/2023 Education Answer Date Recorded What is the highest level of school you have completed or the highest degree you have received? 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 [address] [place] [phone] 12/13/2023 10:00 AM CDT Appointment Department of Radiology, [place], [place] [address] [place] [phone] Minerva Albarran M.D. [address] [place] [phone] 12/13/2023 11:15 AM CDT Appointment Department of Radiology, [place], [place] [address] [place] [phone] Minerva Albarran M.D. [address] [place] [phone] 12/19/2023 10:00 AM CDT Clinical Communication Virtual Review in [place], [place] 200 [place] [address] 12/20/2023 1:30 PM CDT Office Visit Department of Oncology in [place], [place] [address] [place] [phone] Minerva Albarran M.D. [address] [place] [phone] documented as of this encounter Procedures Procedure [...] Flow Cytometry, Blood (09/06/2023 1:43 PM CDT) [facility] LCMSB Result Performed 09/07/2023 5:15 PM CDT DTL Final Diagnosis: Peripheral blood, flow cytometric immunophenotyping: Normal immunophenotyping results. ??No monotypic B-cell population or increase in blasts identified. Absence of UF88-vsdozspg B-cells. A prior positive bone marrow flow cytometry study is noted ([id number];04/06/2023 ). Reviewed by: Tosha Swenson M.D., Ph.D. 09/07/2023 5:15 PM CDT DTL Special Studies: WBC: ??3.9 x 10(9)/L %Lymphs (CBC/automated differential): ??26% #Lymphs (CBC/automated differential): ??1.0 x 10(9)/L Results: Blasts: ??Not increased by CD45/side scatter and CD34. B-cells: ??Absence of QM25-pjzmmjzv B cells. ??B-cell markers tested: CD10, CD19 and kappa and lambda surface light chains. T-cells/NK-cells: ??No aberrant phenotype by CD3 and CD16. Quality Assessment: ??Specimen received within validated guidelines. 09/07/2023 5:15 PM CDT DTL Microscopic Description A Zkqeso-Ymmref-fbktwa d slide prepared from the flow cytometry specimen is examined. ??No morphologic features of acute leukemia or lymphoma are identified. 09/07/2023 5:15 PM CDT DTL Comment: ----ADDITIONAL INFORMATION---- This test was developed using an analyte specific reagent. Its performance characteristics were determined by [facility] in a manner consistent with CLIA requirements. This test has not been cleared or approved by the U.S. Food and Drug Administration. Blood (Blood, Venous) 09/06/2023 1:43 PM CDT 09/06/2023 5:07 PM CDT Minerva Albarran M.D. LAB GENETIC TESTING Final Re sult Performing Organization Address City/[facility]/[place] [address] * (ABNORMAL) LD (Lactate Dehydrogenase) (09/06/2023 1:43 PM CDT) Lactate Dehydrogenase (LD), S 231(H) 122 - 222 U/L 09/06/2023 2:38 PM CDT DTL Blood (Blood, Venous) 09/06/2023 1:43 PM CDT 09/06/2023 2:16 PM CDT Claudia Garcia M.D. LAB BLOOD NON ADD-ON Final R esult Performing Organization Address City/[facility]/[place] [address] * (ABNORMAL) Comprehensive Metabolic Panel (09/06/2023 1:43 [...] 1:43 PM CDT 09/06/2023 2:16 PM CDT us Claudia Garcia M.D. LAB BLOOD ADD-ON Final Resul t [facility] [address] [place] [address], [facility] DTL [facility] [address] [place] [address] * CBC with Differential, Blood (09/06/2023 1:43 [...] CDT Claudia Garcia M.D. LAB BLOOD ADD-ON Final Resul t [facility] [address] [place] [address], [facility] DTL [facility] [address] [place] [address] [facility] [address] [place] [address] documented in this encounter Visit Diagnoses Diagnosis Marginal Zone Lymphoma Splenic (HCC) documented in this encounter Additional Health Concerns Infection Onset Date Last Indicated Resolved Time Protective Environment 04/12/2023 04/12/2023 Assessment Noted Time PHQ-9 Depression Total Score: 5 06/13/19 22 6:15 PM CDT documented as of this encounter Care Teams Sandblaster Supervisor Relationship Specialty Start Date End Date Elsewhere, Pcp PCP - General Internal Medicine 05/10/21 documented as of this encounter
--- OUTSIDE RECORDS SUMMARY | 2023-12-08 16:30 | XMS_ITS | Encounter Summary ---
Author Organization [facility] Address [address] [place] [address] Care Team Providers Care Social Worker Health Services Name Role Phone Elsewhere, Pcp Primary Care Provider Unavailabl e Reason for Visit * Outpatient (Routine) - Closed Specialty Diagnoses / Procedures Referred By Rodolfo hyman Referred To Contact Neurology [facility]-Danita Rhodes M.D., Ph.D. [address] [place] [phone] Phone: tel: fax: [facility] Referral ID Status Reason Start Date Expiration Date Visits Re quested Visits Authorized [id number] Closed 07/11/2023 01/09/2025 1 1 Encounter Details Date Type Department Care Team (Latest Contact Info) Description 10/24/2023 1:00 PM CDT Comprehensive Visit Department of Neurology in [place], [place] [address] [place] [phone] Cristy Avery M.D., M.H.S. [address] [place] [phone] Decline Cognitive (Primary Dx) Social History Tobacco Use Types Packs/Day Years Used Date Smoking Tobacco: Former Cigarettes 0.3 14 0 09/04/1961 - 09/05/1975 Pipe Passive Smoke Exposure: Never Smokeless Tobacco: Never Comments:Havent smoked since 1975 Alcohol Use Standard Drinks/Week Comments Yes 1 (1 standard drink = 0.6 oz pure alcohol) approximately 1-2 servings of alcohol per 1-2 weeks. [facility] Utilities Answer Date Recorded In the past 12 months has th e [email or web address], [employer], oil, or water [employer] threatened to shut off services in your [...] often do you attend chur ch or orthodoxy services? More than 4 times per year 12/07/2021 Do you belong to any clubs o r organizations such as spiritism groups, unions, fraternal [...] PHQ-2 Score 0 06/12/2021 [facility] - Occupational Stress Questionnaire Answer Date [...] your living situation today? [facility] 05/31/2023 Education Answer Date Recorded What is the highest level of school you have completed or the highest degree you have received? 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 - 10/24/2023 1:00 PM CDT SUBJECTIVE CHIEF COMPLAINT / REASON FOR VISIT Darcy Colon is a 83 y.o. female who presents for evaluation of memory and balance changes. 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 She was first seen for cognitive concerns by Dr. Kraig Byrne and Dr. Danita Prabhakar on 05/10/2021. At the time, her neuro exam was notable only for catch-up saccade. There was no evidence of neurodegenerative disease at that time. PET scan and CSF also were not suggestive of neurodegenerativedisease. She was hospitalized for encephalopathy in 03/2023 and was ultimately found to have splenic marginalzone lymphoma and low thiamine level. Following that hospitalization, she was seen by Dr. Prabhakar on 07/11/2023. At the time, it was suggested that she may have underlying neurodegenerative process that was driving her 4-5 years of memory concerns. Despite this, her Kokmen remained stable (27/ on 05/10/2021, 28/38 on 07/11/2023). She was also noted to have mild peripheral neuropathy, which could be contributing to her gait concerns. HA1C and vitamin B12 were both normal. Ms. Colon presents today for follow up of her memory and balance. For memory, she and her reports that she often has to ask the same question multiple times or check information, such as thedate or an appointment time, multiple times. She also gets disoriented easily, especially in unfamiliar places. For example, in [employer] she will forget which side of the store the exit is on. This does not usually happen in the [employer] that she goes to frequently. When multiple people are talking at once or she is in a busy environment, she becomes overwhelmed and does not absorb what people are saying to her. She still drive short distances (less than one mile) and has never gotten lost driving. She has never suffered serious consequences due to her memory, such as losing money to a scammer. Her has been doing the finances since he retired, not because of any concerns about her memory. Her has also noticed her worsening memory and sense of direction. They are unsure if their children have specifically noticed changes with their mother, but they have informed their children of their concerns regarding her memory. She and her both think that her memory has gotten gradually worse over the last several years. For her balance, they report that she falls several times per year. They report that she is unsteady on her feet and easily loses her balance, but have a hard time describing what happens in more detail. She does not believe that she has weakness or decreased sensation in her feet. They do not think that she falls in the same direction every time, although she often falls backward. Her thinks that she has a hard time getting a foot under herself when she starts to lose her balance. 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 She thinks that she has an easier time maintaining her balance in familiar places and when she can look down to see where she is putting her feet. She reports that she saw PT for her balance problems and did not improve with therapy. These records are not available in [facility]. She has longstanding essential tremor that has gotten slightly worse over time. She has noticed that her handwriting is getting smaller and her thinks that her voice has gotten softer, but reports that he is losing his hearing. Review of systems was otherwise negative for changes in mood/personality, anosmia, RBD, constipation, masked facies, illusory phenomena/visual hallucinations. She reports that she drinks coffee for breakfast and has toast for lunch, but always eats a large dinner that she and her cook. She has vitamin B12 and thiamine supplements that she takes daily. She stopped smoking in 1972 and has two drinks per week or less. She and her live in a single-level town house that has railings in the bathroom and wide hallways to allow wheelchair access. They have already completed advanced care planning documents. In the past, she has trialed donepezil for her memory concerns, which she did not tolerate. She does not recall why she was unable to tolerate the medication. Her father developed Alzheimer at age 72. REVIEW OF SYSTEMS: Negative except per HPI OBJECTIVE PHYSICAL EXAM Neuro: Mental Status: Alert and oriented to: person, place, month, year, and situation. Taylor 26 (-1 orientation, -3 attention, 3 trials for registration/recall, -2 calculations, -2 knowledge, -2 recall) Able to perform Luria sequence slowly and with great difficulty. Fluency of speech was normal. Follows simple 1-stepand embedded commands. Right/Left confusion was not present. Able to give intermediate detail concerning current events (knows presidential candidates and one vice presidential candidate, not the other) and current illness. Evidence of Aphasia is absent, evidence of Agnosia is absent and evidence of Neglect is absent. Cranial nerves: I - not assessed II - Pupils equal, round, and reactive to light. Fully intact visual peters bilaterally via counting fingers. No relative afferent pupillary defect bilaterally. III, IV, - extraocular movement intact, without nystagmus. No saccadic dysmetria appreciated V - Intact to light touch in all distributions. VII - symmetric facies with normal smile, palpebral fissures, naso-labial folds,and forced eyelid closure. Normal forehead elevation and furrowing. VIII - hears finger rub symmetrically IX/X - Palate elevates symmetrically. XI - Shoulder shrug is symmetric and strong. XII - tongue protrudes at midline and able to move right and left Motor Examination: Tone exam is normal. Bulk evaluation shows no atrophy, Finger tapping is normal. There is mild bilateral postural tremor. There is no pronator drift. Strength: 0: Full strength, -1: 25% decrease in strength, -2: 50% decrease in strength, -3: 75% decrease in strength, -4: No movement Right Left Arm abduction 0 0 Elbow flexion 0 0 Elbow extension 0 0 Wrist extension 0 0 Finger extension 0 0 Finger flexion 0 0 Hip flexion 0 0 Knee flexion 0 0 Knee extension 0 0 Ankle dorsiflexion 0 0 Ankle plantarflexion 0 0 Reflexes: 0: Normal reflexes, -1: mild hyporeflexia, -2: moderate hyporeflexia, -3: severe hyporeflexia, -4: no reflex, +1: mild hyperreflexia, +2: moderate hyperreflexia, +3: severe hyperreflexia, +4: clonus Reflexes Right Left Biceps +1 +1 Triceps +1 +1 Brachioradialis +1 +1 Patella +2 +2 Achilles +1 +1 Plantar Response Flexor Flexor Cross Adductors Negative Negative Sensory Examination: Fine touch is normal. Temperature is normal. Vibration sense at the Hallicus joint with 128Hz tuning fork is normal. Proprioception at the distal hallicus is normal. Coordination/Gait: Finger to nose is slow but otherwise normal. Testing for Dysdiadokinesia is normal. Mildly wide-based, hesitant walk with good foot raise and equal arm swing. No en-bloc turning. Heal and toe walkingintact. Sways on Romberg but stays upright. Falls backward on pull test. Imaging 10/11/2023 MRI brain w/without contrast: Stable examination. There are no acute intracranial abnormalities. Stable generalized cerebral and cerebellar volume loss including mild volume loss within the brainstem and brachium pontine bilaterally. No evidence of pathologic intracranial enhancement. Stable empty sella turcica. Stable, 1 cm enhancing lesion right parietal bone. Stable relatively symmetric scattered T2 areas of signal abnormality within both cerebral hemispheres likely representing microvascular changes. 01/20/[address] brain: Diffuse mild hypometabolism in the cerebral and cerebellar hemispheres. Nospecific distribution to suggest a single neurodegenerative process. ASSESSMENT / PLAN Ms. Colon presents for follow up of memory and balance problems. For her memory, she does appear to have some cognitive deficits on exam (Kokmen 26, difficulty with Luria) and her everyday life. On exam and history, her largest deficit appears to be in attention. Luckily, these cognitive deficits appear to be very slowly progressive and have not caused major problems. Imaging was not helpful in determining an etiology of her cognitive deficits and she does not have symptoms concerning for LewyBody or FTD. CSF was unremarkable and she is past the age when Alzheimer would be expected to present. 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 Given that her thiamine has been low in the past, nutritional deficiencies may also be contributing to her cognitive deficits, although she reports that she eats a large dinner every day at home, drinks little alcohol, and does not have other risk factors for vitamin deficiency. For her balance problems, her exam is not consistent with sensory ataxia, central ataxia, movement disorder, or neuromuscular disorder. She does have a hesitant, mildly wide-based gait on exam. However, this is most likely due to normal aging rather than an underlying neurologic disorder. We discussed the importance of using a gait aid and avoiding falls. We discussed the possibility of a PT consult to evaluate for the use of a gait aid. She declined at this time because her granddaughter is a PT and has been giving them instructions. She plans to use her cane timekeeper supervisor going forward. We alsodiscussed doing a driving evaluation, which they plan to investigate further. Otherwise, she and her have done an excellent job of preparing their house for safety and preparing for the future through advanced care planning and other steps. Plan Repeat thiamine Formal driving evaluation Cosigned by Becka Cortez M.D. at 10/24/2023 3:32 PM CDT Associated attestation - Becka Cortez M.D. - 10/24/2023 3:32 PM CDT I have reviewed Dr. Avery's history, examination, and plan of care as documented on the electronic neurologic examination and history. I have not personally interviewed and examined the patient. I agree with the documentation unless amended below. Ms. Colon is an 83-year-old woman with past medical history significant for splenic zone marginal lymphoma, anxiety, depression, hypertension, migraines, thiamine deficiency with cognitive and motorsymptoms. She has been seen previously by our colleague Dr. Prabhakar. Evaluation for underlying etiology of her cognitive symptoms was unrevealing with fairly nonspecific changes on PET scan and CSF biomarkers not consistent with Alzheimer's disease. Of note, there was cerebellar hypermetabolismnoted on the study. Brain MRI showed global atrophy. Ms. Colon returns with continued cognitive concerns including some disorientation and new places, needing to repeat questions. She also has some b alance issues with a couple of falls over the course of the past year and she is using a cane intermittently. #1 Cognitive concerns #2 Imbalance I agree with Dr. Avery's excellent assessment and plan. Reassuringly, Ms. Colon's short test of mental status is very similar to where it has been in previous years, currently from in 2021. We did question whether there is a component of pseudo dementia with depression or sleep issues co ntributing to the cognitive symptoms. It may also be helpful to have physical therapy assess for gait aids specifically. I agree with the plan for looking at different laboratory markers to see if there is a reversible cause that could be targeted. Please see their note for details. documented in this encounter Plan of Treatment Upcoming Encounters Date Type Department Care Team (Latest Contact Info) Description 12/13/2023 9:30 AM CDT Appointment Department of Laboratory Medicine and Pathology, [facility] in [place], [place] [address] [place] [phone] Minerva Albarran M.D. [address] [place] [phone] 12/13/2023 10:00 AM CDT Appointment Department of Radiology, [facility], [place], [place] [address] [place] [phone] Minerva Albarran M.D. [address] [place] [phone] 12/13/2023 11:15 AM CDT Appointment Department of Radiology, [facility], in [place], [place] [address] [place] [phone] Minerva Albarran M.D. [address] [place] [phone] 12/19/2023 10:00 AM CDT Clinical Communication Virtual Review in [place], [place] [address] [place] [phone] 12/20/2023 1:30 PM CDT Office Visit Department of Oncology in [place], [place] [address] [place] [phone] Minerva Albarran M.D. [address] [place] [address] Scheduled Orders Name Type Priority Associated Diagnoses Orde r Schedule Thiamine (Vitamin B1), Whole Blood Lab Routine Decline Cognitive Expected: 10/24/2023, Expires: 01/23/2025 documented as of this encounter Visit Diagnoses Diagnosis Decline Cognitive- Primary documented in this encounter Additional Health Concerns Infection Onset Date Last Indicated Resolved Time Protective Environment 04/12/2023 04/12/2023 Assessment Noted Time PHQ-9 Depression Total Score: 5 06/13/19 22 6:15 PM CDT documented as of this encounter Care Teams Social Worker Health Services Relationship Specialty Start Date End Date Elsewhere, Pcp PCP - General Internal Medicine 05/10/21 documented as of this encounter
--- OUTSIDE RECORDS SUMMARY | 2023-12-08 16:30 | XMS_ITS | Encounter Summary ---
Author Organization [facility] Address [address] [place] [address] Care Team Providers Care Marina Sales And Service Supervisor Name Role Phone Elsewhere, Pcp Primary Care Provider Unavailabl e Reason for Referral * Outpatient (Routine) - Authorized Specialty Diagnoses / Procedures Referred By Rodolfo t Referred To Contact Hematology Oncology Diagnoses Marginal Zone Lymphoma Splenic (HCC) Minerva Albarran M.D. 200 [place] [phone] Phone: tel: fax: [facility] Referral ID Status Reason Start Date Expiration Date V isits Requested Visits Authorized [id number] Authorized 09/06/2023 03/07/2025 1 1 * MRI/CAT/PET Scan (Routine) - Closed Specialty Diagnoses / Procedures Referred By Contbi t Referred To Contact Radiology Diagnoses Encephalopathy Metabolic Unspecified Dementia Unspecified Severity Without Behavioral Disturbance 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) Ataxia Procedures MR Brain without and with IV Contrast Minerva Albarran M.D. [address] [place] [address] Phone: tel: fax: [facility] Referral ID Status Reason Start Date Expiration Date Visits Re quested Visits Authorized [id number] Closed 09/06/2023 09/05/2024 1 1 Reason for Visit * Outpatient (Routine) - Closed Specialty Diagnoses / Procedures Referred By Contbi t Referred To Contact Hematology Oncology Claudia Garcia M.D. [address] [place] [phone] Phone: tel: fax: [facility] Referral ID Status Reason Start Date Expiration Date Visits Re quested Visits Authorized [id number] Closed 06/01/2023 11/30/2024 1 1 Encounter Details Date Type Department Care Team (Late st Contact Info) Description 09/06/2023 3:45 PM CDT Office Visit Division of Hematology in [place], [place] [address] [place] [phone] Minerva Albarran M.D. [address] [place] [phone] Marginal Zone Lymphoma Splenic (HCC) (Primary Dx); [...] [facility] [employer] Answer Date Recorded In the past 12 months has [facility] [employer] gas, oil, or water [id number] threatened to shut off services in your [...] How often do you attend chur or hinduism services? 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 Gender Identity Female 05/10/2021 12:15 PM CDT [...] Name: Darcy Colon Birthdate: 1940 Sex: female [phone] (home) Address: [address] [place] [address] [address] [facility] [phone] SUBJECTIVE CHIEF COMPLAINT/PURPOSE OF VISIT Primary [place] [facility] Fellow: Minerva Albarran MD Primary [place] [facility] Arabic Teacher: Ariel Sevilla MD Supervising [facility] Arabic Teacher: Ariel Bar MD PCP: ELSEWHERE, PCP HISTORY [...] Appointment Department of Laboratory Medicine and Pathology, [facility] in [place], [place] [address] [place] [phone] Minerva Albarran M.D. [address] [place] [phone] 12/13/2023 10:00 AM CDT Appointment Department of Radiology, [facility], in [place], [place] [address] [place] [phone] Minerva Albarran M.D. [address] [place] [phone] 12/13/2023 11:15 AM CDT Appointment Department of Rad[facility], [facility] [place], [place] [address] [place] [phone] Minerva Albarran M.D. [address] [place] [phone] 12/19/2023 10:00 AM CDT Clinical Communication Virtual Review in [place], [place] [address] [place] [address] 12/20/2023 1:30 PM CDT Office Visit Department of Oncology in [address] [phone] Minerva Albarran M.D. [address] [place] [phone] Scheduled Orders Name Type Priority Associated Diagnoses Orde r Schedule CBC with Differential, Blood Lab Routine Marginal Zone Lymphoma Splenic (HCC) Expected: 12/07/2023, Expires: 12/06/2024 Comprehensive Metabolic Panel Lab Routine Marginal Zone Lymphoma Splenic (HCC) Expected: 03/08/2024, Expires: 12/06/2024 Scheduled Referrals Name Type Priority Associated Diagnoses Order Schedule Hematology office visit (clinic) [place]; Lymphoma; General Outpatient Referral Routine Marginal [...] documented as of this encounter Care Teams Marina Sales And Service Supervisor Relationship Specialty Start Date End Date Elsewhere, Pcp PCP - General Internal Medicine 05/10/21 documented as of this encounter
--- OUTSIDE RECORDS SUMMARY | 2023-12-08 16:30 | XMS_ITS | Encounter Summary ---
Author Organization [facility] Address [address] [place] [address] Care Team Providers Care Care Aid Name Role Phone Elsewhere, Pcp Primary Care Provider Unavailabl e Encounter Details Date Type Department Care Team (Late st Contact Info) Description 09/05/2023 Orders Only Department of Oncology in [place], [place] [address] [place] [address] Minerva Albarran M.D. [address] [place] [address] Marginal Zone Lymphoma Splenic (HCC) (Primary Dx) Social History Tobacco Use Types Packs/Day Years Used Date Smoking Tobacco: Former Cigarettes 0.3 14 0 09/04/1961 - 09/05/1975 Pipe Passive Smoke Exposure: Never Smokeless Tobacco: Never Comments:Havent smoked since 1975 Alcohol Use Standard Drinks/Week Comments Yes 1 (1 standard drink = 0.6 oz pure alcohol) approximately 1-2 servings of alcohol per 1-2 weeks. [facility] Utilities Answer Date Recorded In the past 12 months has [facility] [employer], gas, oil, or water [employer] threatened to shut off services in your [...] How often do you attend chur or caodaism services? More than 4 times per year 12/07/2021 Do you belong to any clubs o r organizations such as nondenominational groups, unions, fraternal or athletic groups, or [...] Recorded PHQ-2 Score 0 06/12/2021 [facility] of Occupat ional Health - Occupational Stress [...] your living situation today? I have a [facility] place to live 05/31/2023 Education Answer Date Recorded What is the highest level of school you have completed or the highest degree you have received? 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 [address] [place] [address] 12/13/2023 10:00 AM CDT Appointment Department of Radiology, [facility], in [place], [place] [address] [place] [phone] Minerva Albarran M.D. [address] [place] [phone] 12/13/2023 11:15 AM CDT Appointment Department of Radiology, [facility], in [place], [place] [address] [place] [phone] Minerva Albarran M.D. [address] [place] [phone] 12/19/2023 10:00 AM CDT Clinical Communication Virtual Review in [place], [place] [address] [place] [address] 12/20/2023 1:30 PM CDT Office Visit Department of Oncology in [place], [place] [address] [place] [phone] Minerva Albarran M.D. [address] [place] [phone] documented as of this encounter Results * Leukemia/Lymphoma Immunophenotyping by Flow Cytometry, Blood (09/06/2023 1:43 PM CDT) [facility] LCMSB Result Performed 09/07/2023 5:15 PM CDT DTL Final Diagnosis: Peripheral blood, flow cytometric immunophenotyping: Normal immunophenotyping results. ??No monotypic B-cell population or increase in blasts identified. Absence of CA17-ycmqqeco B-cells. A prior positive bone marrow flow cytometry study is noted ([id number];04/06/2023 ). Reviewed by: Tosha Swenson M.D., Ph.D. 09/07/2023 5:15 PM CDT DTL Special Studies: WBC: ??3.9 x 10(9)/L %Lymphs (CBC/automated differential): ??26% #Lymphs (CBC/automated differential): ??1.0 x 10(9)/L Results: Blasts: ??Not increased by CD45/side scatter and CD34. B-cells: ??Absence of YG41-smtnjztw B cells. ??B-cell markers tested: CD10, CD19 and kappa and lambda surface light chains. T-cells/NK-cells: ??No aberrant phenotype by CD3 and CD16. Quality Assessment: ??Specimen received within validated guidelines. 09/07/2023 5:15 PM CDT DTL Microscopic Description A Ickihh-Xpjtsp-btseck d slide prepared from the flow cytometry specimen is examined. ??No morphologic features of acute leukemia or lymphoma are identified. 09/07/2023 5:15 PM CDT DTL Comment: ----ADDITIONAL INFORMATION---- This test was developed using an analyte specific reagent. Its performance characteristics were determined by [facility] in a manner consistent with CLIA requirements. This test has not been cleared or approved by the U.S. Food and Drug Administration. Blood (Blood, Venous) 09/06/2023 1:43 PM CDT 09/06/2023 5:07 PM CDT Minerva Albarran M.D. LAB GENETIC TESTING Final Re sult [facility] [address] [place] [address], [facility] DTL [address] [place] [address] documented in this encounter Visit Diagnoses Diagnosis Marginal Zone Lymphoma Splenic (HCC)- Primary documented in this encounter Additional Health Concerns Infection Onset Date Last Indicated Resolved Time Protective Environment 04/12/2023 04/12/2023 Assessment Noted Time PHQ-9 Depression Total Score: 5 06/13/19 22 6:15 PM CDT documented as of this encounter Care Teams Care Aid Relationship Specialty Start Date End Date Elsewhere, Pcp PCP - General Internal Medicine 05/10/21 documented as of this encounter
--- OUTSIDE RECORDS SUMMARY | 2023-12-08 16:30 | XMS_ITS | Encounter Summary ---
Author Organization [facility] Address [address] [place] [address] Care Team Providers Care Cupola Melter Name Role Phone Elsewhere, Pcp Primary Care Provider Unavailabl e Reason for Visit * Outpatient (Routine) - Closed Specialty Diagnoses / Procedures Referred By Rodolfo t Referred To Contact Dermatology Shannon Murray M.B.B.S. [address] [place] [phone] Phone: tel: fax: Shannon Murray M.B.B.S. [address] [place] [phone] Phone: tel: fax: Referral ID Status Reason Start Date Expiration Date Visits Re quested Visits Authorized [id number] Closed 09/18/2023 03/19/2025 1 1 Encounter Details Date Type Department Care Team (Late st Contact Info) Description 10/05/2023 9:30 AM CDT Office Visit Department of Dermatology in [place], [place] [address] [place] [phone] Shannon Murray M.B.B.S. 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 [facility] Utilities Answer Date Recorded In the past 12 months has e [employer], gas, oil, or water [employer] threatened to shut off services in your [...] How often do you attend chur or sabianism services? 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 [address] [place] [phone] 12/13/2023 10:00 AM CDT Appointment Department of Radiology, [facility] in [address] [phone] Minerva Albarran M.D. [address] [place] [phone] 12/13/2023 11:15 AM CDT Appointment Department of Radiology, [facility], in [address] [phone] Minerva Albarran M.D. [address] [place] [phone] 12/19/2023 10:00 AM CDT Clinical Communication Virtual Review in [address] [phone] 12/20/2023 1:30 PM CDT Office Visit Department of Oncology in [address] [phone] Minerva Albarran M.D. 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
--- OUTSIDE RECORDS SUMMARY | 2023-12-08 16:30 | XMS_ITS | Encounter Summary ---
Author Organization [facility] Address [address] [place] [address] Care Team Providers Care Channeler Name Role Phone Elsewhere, Pcp Primary Care Provider Unavailabl e Reason for Referral * Outpatient (Routine) - Authorized Specialty Diagnoses / Procedures Referred By Contac t Referred To Contact Diagnoses Nodule Thyroid Procedures US Thyroid Fine Needle Aspiration with Imaging Guidance Minerva Albarran M.D. 200 [place] [address] Phone: tel: fax: [facility] Referral ID Status Reason Start Date Expiration Date V isits Requested Visits Authorized [id number] Authorized 11/28/2023 11/27/2024 1 1 * Outpatient (Routine) - Authorized Specialty Diagnoses / Procedures Referred By Contac t Referred To Contact Diagnoses Nodule Thyroid Procedures US Thyroid Minerva Albarran M.D. 200 [place] [address] Phone: tel: fax: [facility] Referral ID Status Reason Start Date Expiration Date V isits Requested Visits Authorized [id number] Authorized 11/28/2023 11/27/2024 1 1 Reason for Visit * Reason Onset Date Comments Results 11/22/2023 Biopsy 11/22/2023 Encounter Details Date Type Department Care Team (Latest Contact Info) Description 11/22/2023 Clinical Communication Department of Oncology in [place], [place] [address] [place] [address] [place] [address] Results; Biopsy Social History Tobacco Use Types Packs/Day Years Used Date Smoking Tobacco: Former Cigarettes 0.3 14 0 09/04/1961 - 09/05/1975 Pipe Passive Smoke Exposure: Never Smokeless Tobacco: Never Comments:Havent smoked since 1975 Alcohol Use Standard Drinks/Week Comments Yes 1 (1 standard drink = 0.6 oz pure alcohol) approximately 1-2 servings of alcohol per 1-2 weeks. [facility] [employer] Answer Date Recorded In the past 12 months has e [employer], gas, oil, or water [employer] threatened to shut off services in your [...] often do you attend chur ch or latter-day services? More than 4 times per year 12/07/2021 Do you belong to any clubs o r organizations such as episcopal groups, unions, fraternal [...] Answer Date Recorded PHQ-2 Score 0 06/12/2021 [facility] of Occupat ional [facility] - Occupational Stress Questionnaire Answer Date [...] your living situation today? I have a [facility] place to live 05/31/2023 Education Answer Date Recorded What is the highest level of school you have completed or the highest degree you have received? 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 - 11/28/2023 12:31 PM CDT Placed order for thyroid function labs and nodule biopsy. Routing to Heme scheduling team to assist with scheduling. * Telephone Encounter - Minerva Albarran M.D. - 11/26/2023 4:49 PM CDT Attempted to call patient twice more today on different numbers. No response. * Telephone Encounter - Minerva Albarran M.D. - 11/23/2023 3:37 PM CDT Attempted to call Darcy's cell number as well as her 's today. No response. Sent portal message and letter regarding thyroid US results. * Telephone Encounter - Minerva Albarran M.D. - 11/22/2023 6:34 PM CDT Attempted to call Mrs. Colon twice regarding thyroid US results. Will try calling again tomorrow. documented in this encounter Plan of Treatment Upcoming Encounters Date Type Department Care Team (Latest Contact Info) Description 12/13/2023 9:30 AM CDT Appointment Department of Laboratory Medicine and Pathology, [facility] in [address] [phone] Minerva Albarran M.D. [address] [place] [phone] 12/13/2023 10:00 AM CDT Appointment Department of Radiology, [facility] in [address] [phone] Minerva Albarran M.D. [address] [place] [phone] 12/13/2023 11:15 AM CDT Appointment Department of Radiology, [facility] in [address] [phone] Minerva Albarran M.D. [address] [place] [phone] 12/19/2023 10:00 AM CDT Clinical Communication Virtual Review in [address] [phone] 12/20/2023 1:30 PM CDT Office Visit Department of Oncology in [address] [phone] Minerva Albarran M.D. [address] [place] [phone] Scheduled Orders Name Type Priority Associated Diagnoses Orde r Schedule US Thyroid Imaging RAD - Routine ([facility] inpatients and all outpatients) Nodule Thyroid Expected: 11/28/2023, Expires: 02/27/2025 US Thyroid Fine Needle Aspiration with Imaging Guidance Imaging RAD - Routine (most inpatients and all outpatients) Nodule Thyroid Expected: 11/28/2023, Expires: 02/27/2025 Thyroid Function [facility] Routine Nodule Thyroid Expected: 11/28/2023, Expires: 02/27/2025 documented as of this encounter Visit Diagnoses Diagnosis Nodule Thyroid- Primary documented in this encounter Additional Health Concerns Infection Onset Date Last Indicated Resolved Time Protective Environment 04/12/2023 04/12/2023 Assessment Noted Time PHQ-9 Depression Total Score: 5 06/13/19 22 6:15 PM CDT documented as of this encounter Care Teams Channeler Relationship Specialty Start Date End Date Elsewhere, Pcp PCP - General Internal Medicine 05/10/21 documented as of this encounter
--- OUTSIDE RECORDS SUMMARY | 2023-12-08 16:30 | XMS_ITS | Encounter Summary ---
Author Organization [facility] Address [address] [place] [address] Care Team Providers Care Behaviour Support Teacher Name Role Phone Elsewhere, Pcp Primary [...] to Thigh FDG Minerva Albarran M.D. 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 200 [place] [address] Phone: tel: fax: [facility] Referral ID Status Reason Start Date Expiration Date Visits Re quested Visits Authorized [id number] Closed 09/06/2023 09/05/2024 1 1 Encounter Details Date Type Department Care Team (Latest Contact Info) Description 09/18/2023 2:01 PM CDT - 09/18/2023 11:59 PM CDT Hospital Encounter Department of Radiology, [facility], in [place], [place] [address] [place] [address] Minerva Albarran M.D. [address] [place] [address] Marginal Zone Lymphoma Splenic (HCC); Extranodal Marginal [...] of alcohol per 1-2 weeks. [facility] [employer] Answer Date Recorded In the past 12 months has e electric, gas, oil, or water [employer] threatened to shut off services in your [...] often do you attend chur ch or anabaptist services? More than 4 times [...] your living situation today? [facility] 05/31/2023 Education Answer Date Recorded What is the highest level of school you have completed or the highest degree you have received? 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 [address] [place] [phone] 12/13/2023 10:00 AM CDT Appointment Department of Radiology, [facility] in [address] [phone] Minerva Albarran M.D. [address] [place] [phone] 12/13/2023 11:15 AM CDT Appointment Department of Radiology, [facility] in [address] [phone] Minerva Albarran M.D. [address] [place] [phone] 12/19/2023 10:00 AM CDT Clinical Communication Virtual Review in [address] [phone] 12/20/2023 1:30 PM CDT Office Visit Department of Oncology in [address] [address] Minerva Albarran M.D. [address] [place] [phone] documented as of this encounter Procedures Procedure [...] RADIOPHARMACEUTICAL/MEDS: Route: intravenous fludeoxyglucose F 18 injection MCC (FDG F-18),3.19 millicurie TECHNIQUE: ??F-18 FDG PET/CT [...] RADIOPHARMACEUTICAL/MEDS: Route: intravenous fludeoxyglucose F 18 injection MCC (FDG F-18),3.19 millicurie TECHNIQUE: F-18 FDG PET/CT [...] M.D. 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) documented in this encounter Administered Medications Inactive Administered Medications - up to 3 most recent administrations Medication Order MAR Action Action Date Dose Rate Site fludeoxyglucose F 18 injection MCC (FDG F-18) 4.5-16.5 millicurie, intravenous, Once, On Tu09/18/23 at 1500, For 1 dose, Imaging Protocol Orders Given 09/18/2023 2:26 PM CDT 3.19 millicuries documented in this encounter Additional Health Concerns Infection Onset Date Last Indicated Resolved Time Protective Environment 04/12/2023 04/12/2023 Assessment Noted Time PHQ-9 Depression Total Score: 5 06/13/19 22 6:15 PM CDT documented as of this encounter Care Teams Behaviour Support Teacher Relationship Specialty Start Date End Date Elsewhere, Pcp PCP - General Internal Medicine 05/10/21 documented as of this encounter
--- OUTSIDE RECORDS SUMMARY | 2023-12-08 16:31 | XMS_ITS | Encounter Summary ---
Author Organization [facility] Address [address] [place] [address] Care Team Providers Care Principal Database Developer Name Role Phone Elsewhere, Pcp Primary Care Provider Unavailabl e Reason for Referral * Outpatient (Routine) - Closed Specialty Diagnoses / Procedures Referred By Contbi t Referred To Contact Dermatology Diagnoses Psoriasis Nonscarring Hair Loss Unspecified Cancer Skin Basal Cell Personal History Gisele Curran M.D. [address] [place] [address] Phone: tel: fax: [facility] Referral ID Status Reason Start Date Expiration Date Visits Re quested Visits Authorized [id number] Closed 08/28/2023 02/26/2025 1 1 Encounter Details Date Type Department Care Team (Late st Contact Info) Description 08/28/2023 [facility] [address] [place] [address] Gisele Curran M.D. [address] [place] [phone] Psoriasis (Primary Dx); Nonscarring Hair Loss Unspecified; [...] 1-2 servings of alcohol per 1-2 weeks. [facility] Utilities Answer Date Recorded In the past 12 months has e [employer], [employer], oil, or water [employer] threatened to shut off services in your [...] often do you attend chur ch or yazidi services? More than 4 times [...] 06/12/2021 [facility] of Occupat ional [facility] - Occupational Stress Questionnaire Answer Date [...] living situation today? I have a [facility] place to live 05/31/2023 Education Answer Date Recorded What is the highest level of school you have completed or the highest degree you have received? 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 [address] [place] [phone] 12/13/2023 10:00 AM CDT Appointment Department of Radiology, [facility] in [address] [phone] Minerva Albarran M.D. [address] [place] [phone] 12/13/2023 11:15 AM CDT Appointment Department of Radiology, [facility] in [address] [phone] Minerva Albarran M.D. [address] [place] [phone] 12/19/2023 10:00 AM CDT Clinical Communication Virtual Review in [address] [phone] 12/20/2023 1:30 PM CDT Office Visit Department of Oncology in [address] [phone] Minerva Albarran M.D. [address] [place] [phone] Scheduled Referrals Name Type Priority Associated Diagnoses [...] documented as of this encounter Care Teams Principal Database Developer Relationship Specialty Start Date End Date Elsewhere, Pcp PCP - General Internal Medicine 05/10/21 documented as of this encounter
--- OUTSIDE RECORDS SUMMARY | 2023-12-08 16:31 | XMS_ITS | Encounter Summary ---
Author Organization [facility] Address [address] [place] [id number] Care Team Providers Care Police Surgeon Name Role Phone Elsewhere, Pcp Primary Care Provider Unavailabl e Reason for Visit * Reason Onset Date Comments Referral 08/08/2023 Encounter Details Date Type Department Care Team (Late st Contact Info) Description 08/08/2023 Clinical Communication Department of Dermatology in [place], [place] [address] [place] [phone] Carl Oneal M.D. [address] [place] [phone] Referral Social History Tobacco Use Types Packs/Day Years Used Date Smoking Tobacco: Former Cigarettes 0.3 14 0 09/04/1961 - 09/05/1975 Pipe Passive Smoke Exposure: Never Smokeless Tobacco: Never Comments:Havent smoked since 1975 Alcohol Use Standard Drinks/Week Comments Yes 1 (1 standard drink = 0.6 oz pure alcohol) approximately 1-2 servings of alcohol per 1-2 weeks. [facility] Utilities Answer Date Recorded In the past 12 months has [facility] [employer], gas, oil, or water [employer] threatened to shut off services in your [...] How often do you attend chur or sabianist services? More than 4 times per year [...] Answer Date Recorded PHQ-2 Score 0 06/12/2021 [facility] of Occupat ional Health - Occupational Stress [...] your living situation today? I have a [facility] place to live 05/31/2023 Education Answer Date Recorded What is the highest level of school you have completed or the highest degree you have received? 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 [address] [place] [phone] 12/13/2023 10:00 AM CDT Appointment Department of Radiology, [facility], in [place], [place] [address] [place] [phone] Minerva Albarran M.D. [address] [place] [phone] 12/13/2023 11:15 AM CDT Appointment Department of Radiology, [facility], in [place], [place] [address] [place] [phone] Minerva Albarran M.D. [address] [place] [phone] 12/19/2023 10:00 AM CDT Clinical Communication Virtual Review in [place], [place] [address] [place] [phone] 12/20/2023 1:30 PM CDT Office Visit Department of Oncology in [place], [place] [address] [place] [phone] Minerva Albarran M.D. [address] [place] [phone] documented as of this encounter Visit Diagnoses Not on filedocumented in this encounter Additional Health Concerns Infection Onset Date Last Indicated Resolved Time Protective Environment 04/12/2023 04/12/2023 Assessment Noted Time PHQ-9 Depression Total Score: 5 06/13/19 22 6:15 PM CDT documented as of this encounter Care Teams Police Surgeon Relationship Specialty Start Date End Date Elsewhere, Pcp PCP - General Internal Medicine 05/10/21 documented as of this encounter
[2023-12-08 17:42] LABS: Basophils Absolute Auto 0.03 K/uL (0.00-0.30); Basophils Percent Auto 0.6 % (0.0-3.0); Eosinophils Absolute Auto 0.04 K/uL (0.00-0.50); Eosinophils Percent Auto 0.7 % (0.0-7.0); Hematocrit 39.9 % (33.0-51.0); Hemoglobin* 13.2 gm/dL (12.0-16.0); Immature Granulocytes Abs Auto 0.01 K/uL (0.00-0.30); Immature Granulocytes Pct Auto 0.2 %; Lymphocytes Percent Auto 14.5 % (20-44); Mean Corpuscular HGB Conc 33 gm/dL (32-36); Mean Corpuscular Hemoglobin 32 pg (26-34); Mean Corpuscular Volume 98 fL (80-100); Monocytes Percent Auto 13.6 % (0.0-11.0); Neutrophils Absolute Auto 3.78 K/uL (1.7-7.0); Neutrophils Percent Auto 70.4 % (42.0-72.0); Platelet Count* 129 K/uL (140-440); RDW Coefficient of Variation % 13.5 % (11.5-15.5); Red Blood Count 4.09 m/uL (4.00-5.20); White Blood Count* 5.37 K/uL (4.50-11.00)
[2023-12-08 17:44] LABS: Slide Review Reflex No
[2023-12-08 17:55] LABS: Chloride* 102 mmol/L (96-114); Sodium* 135 mmol/L (135-149)
[2023-12-08 17:56] LABS: Potassium* 4.3 mmol/L (3.6-5.1)
[2023-12-08 17:58] LABS: Creatinine* 0.8 mg/dL (0.5-1.5); Est. Creatinine Clearance* 39.76; Estimated Glomerular Filt Rate 74 ml/min
[2023-12-08 17:59] LABS: Anion Gap 8 mEq/L (7-15); Blood Urea Nitrogen* 16 mg/dL (7-30); Calcium* 9.1 mg/dL (8.4-10.6); Carbon Dioxide* 25 mmol/L (20-32); Glucose* 97 mg/dL (60-115)
--- NOTE | 2023-12-08 18:31 | P.IMHP_ITS ---
Hospitalist- H&P: HPI History of Present Illness Date Seen: 12/08/23 Chief complaint: fall Narrative: Darcy Colon is a 83 year old right-handed female with low-grade lymphoma, anxiety and cognitive impairment admitted through the emergency department after a fall. She was visiting [place], [place] with her where they have a trailer with a deck. She was going down the steps from the deck when she fell. She tried to catch her fall with her right arm. After the fall she had pain in her right elbow and right pelvis. Her brought her back to [place] for evaluation in our emergency department. She normally does not walk well. She reports poor balance. She tells me she occasionally uses a cane but mostly walks without an. She has not had a fall in the past year until today. She reports she has otherwise been feeling well with no recent symptoms of illness. She was hospitalized at [facility] in [place] in March of this year. 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 At that time she was also having a COVID infection and she had fairly severe encephalopathy. The encephalopathy has resolved. She is not getting any treatment for her lymphoma. It is reportedly low-grade. She is pending a thyroid biopsy in 5 days at [place]. 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 This does not need any further intervention currently. In March she was also diagnosed with a low pyridoxine and thiamine levels. She was given oral replacement for those and as of May, serum levels for those were above the normal range. She also had hypercalcemia and that was addressed with stopping her hydrochlorothiazide. Review of Systems Narrative: She reports she has been doing quite well until her fall today. No recent other illness or injury [facility] Medical History (Updated 12/08/23 @ 18:58 by Ariel Murray MD) Hypercalcemia ?E83.52 - Hypercalcemia (ICD-10) Osteoporosis ?M81.0 - Age-related osteoporosis without current pathological fracture (ICD- 10) Thyroid nodule ?E04.1 - Nontoxic single thyroid nodule (ICD-10) Thrombocytopathia ?D69.1 - Qualitative platelet defects (ICD-10) History of echocardiogram (04/13/23) ?Z92.89 - Personal history of other medical treatment (ICD-10) History of stroke (04/23/23) ?Z86.73 - Personal history of transient ischemic attack (TIA), and cerebral infarction without residual deficits (ICD-10) 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 - Anemia in neoplastic disease (ICD-10) 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 - Small cell B-cell lymphoma, unspecified site (ICD-10) Tremor (~2019) ?R25.1 - Tremor, unspecified (ICD-10) Restless legs syndrome ?G25.81 - Restless legs syndrome (ICD-10) Depression ?F32.A - Depression, unspecified (ICD-10) Parkinsonism ?G20 - Parkinson's disease (ICD-10) Memory problem (~11/2021) ?R41.3 - Other amnesia (ICD-10) Postmenopausal atrophic vaginitis ?N95.2 - Postmenopausal atrophic vaginitis (ICD-10) Hypertension ?I10 - Essential (primary) hypertension (ICD-10) History of malignant neoplasm of left breast (01/2016) ?Z85.3 - Personal history of malignant neoplasm of breast (ICD-10) History of diplopia (~2020) ?Z86.69 - Personal history of other diseases of the nervous system and sense organs (ICD-10) Gastroesophageal reflux disease ?K21.9 - Gastro-esophageal reflux disease without esophagitis (ICD-10) Encounter for long-term (current) use of non-steroidal anti-inflammatories ?Z79.1 - terminal worker (current) use of non-steroidal anti-inflammatories (NSAID) (ICD-10) Encounter for counseling regarding advance directives (03/21/10) ?Z71.89 - Other specified counseling (ICD-10) Chronic neck pain ?M54.2 - Cervicalgia (ICD-10) ?G89.29 - Other chronic pain (ICD-10) Basal cell carcinoma (BCC) ?C44.91 - Basal cell carcinoma of skin, unspecified (ICD-10) Acute bronchitis ?J20.9 - Acute bronchitis, unspecified (ICD-10) Surgical History 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) ?Z96.652 - Presence of left artificial knee joint (ICD-10) History of tonsillectomy and adenoidectomy (1952) ?Z90.89 - Acquired absence of other organs (ICD-10) History of third molar tooth extraction ?K08.409 - Partial loss of teeth, unspecified cause, unspecified class (ICD- 10) History of squamous cell carcinoma excision (2002) ?Z98.890 - Other specified postprocedural states (ICD-10) ?Z85.9 - Personal history of malignant neoplasm, unspecified (ICD-10) History of lumpectomy of left breast (2015) ?Z98.890 - Other specified postprocedural states (ICD-10) History of hysterectomy (2006) ?Z90.710 - Acquired absence of both cervix and uterus (ICD-10) History of bunionectomy of right great toe (2011) ?Z98.890 - Other specified postprocedural states (ICD-10) History of basal cell carcinoma (BCC) excision (2016) ?Z98.890 - Other specified postprocedural states (ICD-10) ?Z85.828 - Personal history of other malignant neoplasm of skin (ICD-10) Family History Father Alzheimers disease, Onset Age: 72 Sister Breast cancer, Onset Age: 60 Non-alcoholic cirrhosis Mother Diabetes Non-alcoholic cirrhosis Family/Other No problems noted. Brother Prostate cancer Brother Prostate cancer Social History (Updated 12/08/23 @ 18:48 by Ariel Murray MD) Narrative: : Retired, 3 adult children. Ex cigarette smoker quit at age 41, 22 pack years. 1 drink per week. Lives with her . , Gerhard, is healthcare power of compliance attorney. Code status is DNR Smoking Status: Former smoker How often do you have a drink containing alcohol: 2-4 times a month How many standard drinks containing alcohol do you have on a typical day: 1 or 2 How often do you have six or more drinks on one occasion: Never AUDIT-C Alcohol total score: 2 Non-prescribed substance use: denies use Little interest or pleasure in doing things: not at all Feeling down, depressed, or hopeless: not at all Are you using contraception or practicing any form of control: No Meds Home Medications and Allergies Home Medications ?Medication ?Instructions ?Recorded ?Confirmed ?Type dorzolamide-timolol (PF) 2 %-0.5 % 1 drp ophthalmic (eye) BID 11/29/22 06/12/23 History eye drops in a dropperette (Cosopt (PF)) escitalopram oxalate 20 mg tablet 20 mg PO QDAY 05/01/23 06/12/23 History ketorolac 0.5 % eye drops 1 drp ophthalmic (eye) BID 05/01/23 06/12/23 History ondansetron 4 mg disintegrating 4 mg PO Q8H PRN 05/01/23 06/12/23 History tablet acetaminophen 500 mg capsule 500 mg PO DAILY PRN 05/30/23 06/12/23 History brimonidine 0.2 % eye drops 1 drp ophthalmic (eye) BID 05/30/23 06/12/23 History Allergies Allergy/AdvReac Type Severity Reaction Status Date / Time No Known Drug Allergies Allergy Verified 12/08/23 15:33 Exam Narrative: Exam Narrative: She is alert and appears comfortable lying supine in bed. She reports pain with any movement. Head is without obvious trauma. Eyes normal. Extraocular movements are full. Visual peters intact. No facial asymmetry. She has mild swelling over her right cheek which she says is chronic. Possibly a bruise from a fall today? Not tender to palpation. Oropharynx is normal. Neck is supple without mass or adenopathy. No tenderness. Respirations are clear to auscultation. Breathing is unlabored. Cardiovascular: S1, S2, 1/6 systolic murmur. No gallop or rub. Regular rate and rhythm. Abdomen: Bowel sounds active. Abdomen is soft without tenderness or mass. She has mild tenderness with palpation over her right pubic bone. No significant tenderness with palpation over the greater trochanter on the right. She does not tolerate flexion at the hip on the right. Left pelvis and left lower extremity without pain tenderness or weakness. She moves it well. Both feet and ankles with intact pulses sensation and motion. Right upper extremity has a sling in place. She has tenderness with palpation around the elbow primarily medially and in the popliteal fossa. Range of motion is from 20? of flexion to 90? of flexion limited by pain. She can pronate but has some discomfort with supination. Left upper extremity without pain or tenderness. Const: Vital Signs, click to edit/add: Vital Signs - 24 hr 12/08/23 15:33 12/08/23 15:46 12/08/23 16:24 Temperature 98.3 F Pulse Rate 73 74 Pulse Rate [Pulse Oximeter] 68 Respiratory Rate 16 Blood Pressure Blood Pressure [Ri ght Upper Arm] 168/73 H Pulse Oximetry 99 99 97 Oxygen Delivery Me thod Room Air 12/08/23 16:30 12/08/23 16:31 12/08/23 16:45 Temperature Pulse Rate 71 74 72 Pulse Rate [Pulse Oximeter] Respiratory Rate Blood Pressure 144/73 H Blood Pressure [Ri ght Upper Arm] Pulse Oximetry 96 94 95 Oxygen Delivery Me thod 12/08/23 17:00 12/08/23 17:02 12/08/23 17:03 Temperature Pulse Rate 79 75 75 Pulse Rate [Pulse Oximeter] Respiratory Rate Blood Pressure 127/64 Blood Pressure [Ri ght Upper Arm] Pulse Oximetry 93 94 93 Oxygen Delivery Me thod 12/08/23 17:15 12/08/23 17:30 12/08/23 17:32 Temperature Pulse Rate 73 71 Pulse Rate [Pulse Oximeter] Respiratory Rate Blood Pressure 139/86 Blood Pressure [Ri ght Upper Arm] Pulse Oximetry 92 97 Oxygen Delivery Me thod 12/08/23 17:45 12/08/23 18:00 12/08/23 18:01 Temperature Pulse Rate 65 74 78 Pulse Rate [Pulse Oximeter] Respiratory Rate Blood Pressure 153/85 H Blood Pressure [Ri ght Upper Arm] Pulse Oximetry 98 98 97 Oxygen Delivery Me thod Documenting provider has reviewed patient's vital signs: yes Hospitalist - H&P: Result Labs Labs: Short CBC 12/08/23 Range/Units 17:36 WBC 5.37 (4.50-11.00) K/uL Hgb 13.2 (12.0-16.0) gm/dL Hct 39.9 (33.0-51.0) % Plt Count 129 L (140-440) K/uL BMP 12/08/23 17:36 Sodium 135 Potassium 4.3 Chloride 102 Carbon Dioxide 25 BUN 16 Creatinine 0.8 Glucose [address] scan - head: Radiologist's impression: INDICATION: Fall TECHNIQUE: Noncontrast axial CT of the head. Coronal and sagittal reformats. Bone and soft tissue algorithms. COMPARISON: CT head 12/18/2021 FINDINGS: The calvarium appears grossly intact. No acute intracranial hemorrhage or abnormal extra-axial fluid collection. Similar bandlike hyperdensity throughout the central armin, most suggestive of nonspecific mineralization or potentially underlying cavernous malformation as noted on remote exam. Preserved rosales-white matter differentiation. Mild generalized cerebral volume loss. Mild chronic microangiopathy white-matter hypoattenuation. Calcific intracranial atherosclerotic plaquing. Partially empty sella configuration. Stable chronic partial opacification of the right posterior ethmoid air cells. Clear mastoid air cells. Bilateral lens implants. IMPRESSION: 1. No skull fracture or acute intracranial hemorrhage identified. 2. Similar chronic bandlike hyperdensity throughout the central armin, potentially nonspecific mineralization versus cavernoma. 3. No significant interval change relative to 12/18/2021. CT C-spine: Radiologist's impression: Indication: Fall Technique: Noncontrast axial CT of the cervical spine with coronal and sagittal reformats. Comparison: CT cervical spine 12/18/2021 Findings: The normal cervical lordosis is preserved. Trace anterolisthesis at C3-4, retrolisthesis at C5-6. Craniocervical junction appears within normal limits. No acute fracture identified. Scattered spondylosis, with low-grade neural foraminal narrowing. No significant spinal canal stenosis. No concerning findings in the paraspinal soft tissues. No pulmonary apical pneumothorax. Impression: 1. No evidence of acute fracture or traumatic malalignment in the cervical spine. Right elbow radiograph: Radiologist's impression: INDICATION: Fall. TECHNIQUE: Three views of the right elbow. COMPARISON: None. FINDINGS: There is elevation of the anterior fat pad indicating a joint effusion. No definite fracture is visualized. No dislocation. IMPRESSION : No fracture is visualized however the elbow joint effusion suggests an occult fracture. CT pelvis: Radiologist's impression: INDICATION: FALL, RIGHT HIP PAIN. TECHNIQUE: CT pelvis without contrast. COMPARISON: None. FINDINGS: Bones: Acute nondisplaced fracture of the right inferior pubic ramus. No dislocation or other evident acute fracture. Diffuse osseous demineralization. Chronic bilateral L5 pars interarticularis fractures with a grade 1 spondylolisthesis of L5 on S1. Joints: [id number] bilateral hip joint arthrosis. IMPRESSION: Acute nondisplaced fracture of the right inferior pubic ramus. Assessment and Plan Assessment and plan (1) Closed pelvic fracture: Problem comment: Right inferior pubic ramus fracture. Pain control, weight-bearing as tolerated. Possibly will need care home facility due to inability to walk Status: Acute (2) Balance disorder: Problem comment: Chronic. Saw [facility] - No records. Head CT & MRI done at [facility] on 04/03/23. Status: Chronic (3) Memory problem: Problem comment: MMSE 25/30 01/05/2022 Status: Chronic (4) Osteoporosis: Problem comment: History of osteopenia but now meets criteria for osteoporosis with pelvic insufficiency fracture. Status: Acute (5) Hypercalcemia: Problem comment: March 2023. Resolved after he is stopping hydrochlorothiazide Status: Acute (6) Injury of elbow, right: Problem comment: Suspect nondisplaced fracture of the radial head. Sling for comfort. Activity as tolerated Status: Acute Plan Patient admitted for management of pain and disability from right inferior pubic ramus fracture and suspected right elbow fracture. Admit for pain control and managing disability and plan of care.
[2023-12-08] MEDS: OXYCODONE 5 MG TABLET 2.5 MG PO (18:57)
[2023-12-08] MEDS: ACETAMINOPHEN 325 MG TABLET 650 MG PO (20:32)
[2023-12-08] MEDS: ENOXAPARIN 40 MG/0.4 ML INJ SUBCUT (20:33)
[2023-12-08] MEDS: SENNOSIDES/DOCUSATE TABLET PO (20:33)
--- NOTE | 2023-12-08 21:58 | PC.NURSE ---
Pt arrived to unit at approx. 1845 via bed and accompanied by spouse. Pt A&O x4. VSS. Tolerates a regular diet. Pt's ran out and brought [employer] sandwiches back for himself and pt. Pain is rates at 9/10 in Right arm and pelvic area when pt moves. Pt has a pure wick in place to help rid of urine. Not able to ambulate due to pelvic fracture. Plan is to manage pain at the moment. No IV in place. Drinks oral fluids fine.
[2023-12-09] VITALS (7 sets, daily range): BP systolic 121–149; BP diastolic 64–79; PULSE 63–78; RESP 14–18; TEMP 36.6–37.4; O2SAT 92–97
--- NOTE | 2023-12-09 05:40 | PC.NURSE ---
Shift note: Pt has been in bed throughout the shift. Pt reported minimal pain which increases with movement and activities. Alert and oriented, External catheter in place and connected to low continuous suction. Popliteal and pre-tibia pulse present in the right lower extremity. No fever, vitally stable. Pt had adequate sleep.
[2023-12-09] MEDS: ACETAMINOPHEN 325 MG TABLET 650 MG PO (08:29)
[2023-12-09] MEDS: OXYCODONE 5 MG TABLET 2.5 MG PO ×2 (08:30→18:42)
[2023-12-09] MEDS: ESCITALOPRAM 10 MG TABLET 20 MG PO (08:48)
[2023-12-09] MEDS: THIAMINE 100 MG TABLET PO (08:48)
[2023-12-09] MEDS: buPROPion XL 150 MG TABLET PO (08:49)
[2023-12-09] MEDS: KETOROLAC OPHTH 0.5% 1 DROP EYE-BOTH ×2 (11:10→21:54)
[2023-12-09] MEDS: DORZOLAMIDE HCL 2 % OPHTH DROP 1 DROP EYE-BOTH ×2 (11:12→21:11)
[2023-12-09] MEDS: timoloL maleate 0.5 % 1 DROP EYE-BOTH ×2 (11:14→21:11)
[2023-12-09] MEDS: BRIMONIDINE TARTRATE 0.2% OPHTH 1 DROP EYE-BOTH ×2 (11:15→21:11)
--- NOTE | 2023-12-09 13:06 | PM.IMPN1 ---
Progress Note: A&P Assessment and plan (1) Closed pelvic fracture: Problem details: - Right inferior pubic ramus fracture. - 12/09/23 spoke with Mere Petersen from ortho who agreed this is nonoperative and noted that being upright and moving will likely be more comfortable that laying still in bed or sitting in a chair. - Pain control, weight-bearing as tolerated. Continue to work with PT/OT. - Possibly will need senior care facility due to inability to walk. SW to see tomorrow. Status: Acute (2) Injury of elbow, right: Problem details: Possible nondisplaced fracture of the radial head. I spoke with catarina Rios, who looked at film and doesn't think it's fractured. She recommended sling for comfort/prn and to f/u with ortho in 1-2 weeks if pain is not improving. Status: Acute (3) Balance disorder: Problem details: Chronic. Saw [facility] - No records. Head CT & MRI done at [facility] on 04/03/23. Status: Chronic (4) Memory problem: Problem details: MMSE 25/30 01/05/2022 Status: Chronic (5) Osteoporosis: Problem details: History of osteopenia but now meets criteria for osteoporosis with pelvic insufficiency fracture. Due to h/o hypercalcemia, will hold off on bisphosphonate, Ca, vit D. Status: Acute (6) Hx of hypercalcemia: Problem details: [place]: HCTz, Ca and Vit D stoipped. Patient had been vomiting not eating and drinking for a month Status: Acute Time Spent With Patient Total time spent: Today I spent 25 minutes rounding on the patient. Greater than 50% included discussing care with the patient and family, ortho, team, reviewing data, updating and managing the care plan. Subjective Time Seen by Provider: 09:25 Date Seen: 12/09/23 Interval history: I reviewed the results of Darcy's pelvis CT, head CT, cervical spine CT, and elbow Xray from yesterday. This morning I spoke with catarina Rios, about the pelvic fracture and elbow Xray findings. Darcy's was in the room with her this morning. Darcy says she was able to transfer to the chair from the bed with the help of PT. Her left the room for this, he told me, specifically so he wouldn't have to watch. He is concerned about taking her home like this. We discussed the possibility of rehab if she is unable to move without assistance by tomorrow, and I noted that it would likely be self pay. I spoke with PT who thought it is likely she will need SNF based on how difficult it was for her to go from the bed to chair, even with assistance. Exam Narrative: Exam Narrative: General: No acute distress. Awake, alert, oriented x3. No pallor. No jaundice. Oropharynx: Clear. Mucous membranes moist. Cardiovascular: Regular rate and rhythm. Grade 1/6 systolic murmur loudest at the left lower sternal border. Respiratory: Clear to auscultation bilaterally. No wheezes or crackles. Abdomen: Bowel sounds present. Soft, nondistended, nontender. Extremities: Right arm is in a sling. Full range of motion of the right elbow with minimal pain, able to pronate and supinate with minimal pain, ornithology teacher strength is intact. No pedal edema. Const: Vital Signs, click to edit/add: Vital Signs - 24 hr 12/08/23 15:33 12/08/23 15:46 12/08/23 16:24 Temperature 98.3 F Pulse Rate 73 74 Pulse Rate [Left P ulse Oximeter] Pulse Rate [Pulse Oximeter] 68 Respiratory Rate 16 Blood Pressure Blood Pressure [Le ft Arm] Blood Pressure [Ri ght Upper Arm] 168/73 H Pulse Oximetry 99 99 97 Oxygen Delivery Me thod Room Air 12/08/23 16:30 12/08/23 16:31 12/08/23 16:45 Temperature Pulse Rate 71 74 72 Pulse Rate [Left P ulse Oximeter] Pulse Rate [Pulse Oximeter] Respiratory Rate Blood Pressure 144/73 H Blood Pressure [Le ft Arm] Blood Pressure [Ri ght Upper Arm] Pulse Oximetry 96 94 95 Oxygen Delivery Me thod 12/08/23 17:00 12/08/23 17:02 12/08/23 17:03 Temperature Pulse Rate 79 75 75 Pulse Rate [Left P ulse Oximeter] Pulse Rate [Pulse Oximeter] Respiratory Rate Blood Pressure 127/64 Blood Pressure [Le ft Arm] Blood Pressure [Ri ght Upper Arm] Pulse Oximetry 93 94 93 Oxygen Delivery Me thod 12/08/23 17:15 12/08/23 17:30 12/08/23 17:32 Temperature Pulse Rate 73 71 Pulse Rate [Left P ulse Oximeter] Pulse Rate [Pulse Oximeter] Respiratory Rate Blood Pressure 139/86 Blood Pressure [Le ft Arm] Blood Pressure [Ri ght Upper Arm] Pulse Oximetry 92 97 Oxygen Delivery Me thod 12/08/23 17:45 12/08/23 18:00 12/08/23 18:01 Temperature Pulse Rate 65 74 78 Pulse Rate [Left P ulse Oximeter] Pulse Rate [Pulse Oximeter] Respiratory Rate Blood Pressure 153/85 H Blood Pressure [Le ft Arm] Blood Pressure [Ri ght Upper Arm] Pulse Oximetry 98 98 97 Oxygen Delivery Me thod 12/08/23 18:02 12/08/23 18:15 12/08/23 18:35 Temperature 97.8 F Pulse Rate 74 74 Pulse Rate [Left P ulse Oximeter] Pulse Rate [Pulse Oximeter] Respiratory Rate 18 Blood Pressure Blood Pressure [Le ft Arm] 160/74 H Blood Pressure [Ri ght Upper Arm] Pulse Oximetry 97 98 95 Oxygen Delivery Me thod Room Air 12/08/23 19:00 12/08/23 23:00 12/08/23 23:00 Temperature 97.8 F 98.1 F Pulse Rate Pulse Rate [Left P ulse Oximeter] 75 Pulse Rate [Pulse Oximeter] Respiratory Rate 18 18 18 Blood Pressure Blood Pressure [Le ft Arm] 160/74 H 112/60 Blood Pressure [Ri ght Upper Arm] Pulse Oximetry 95 95 Oxygen Delivery Me thod Room Air Room Air 12/09/23 03:00 12/09/23 08:00 12/09/23 08:30 Temperature 98 F 98.4 F Pulse Rate Pulse Rate [Left P ulse Oximeter] 71 74 74 Pulse Rate [Pulse Oximeter] Respiratory Rate 18 18 18 Blood Pressure Blood Pressure [Le ft Arm] 128/76 149/79 H Blood Pressure [Ri ght Upper Arm] Pulse Oximetry 94 92 Oxygen Delivery Me thod Room Air Room Air 12/09/23 12:20 Temperature 98.3 F Pulse Rate Pulse Rate [Left P ulse Oximeter] 63 Pulse Rate [Pulse Oximeter] Respiratory Rate 18 Blood Pressure Blood Pressure [Le ft Arm] 129/79 Blood Pressure [Ri ght Upper Arm] Pulse Oximetry 97 Oxygen Delivery Me thod Room Air Labs Labs: Laboratory Results - last 24 hr 12/08/23 17:36 WBC 5.37 RBC 4.09 Hgb 13.2 Hct 39.9 MCV 98 MCH 32 MCHC 33 RDW Coeff of Renetta 13.5 Plt Count 129 L Neut % (Auto) 70.4 Lymph % (Auto) 14.5 L Crook % (Auto) 13.6 H Eos % (Auto) 0.7 Baso % (Auto) 0.6 Neut # (Auto) 3.78 Lymph # (Auto) 0.80 L Crook # (Auto) 0.70 Eos # (Auto) 0.04 Baso # (Auto) 0.03 Abs Immat Gran (auto) 0.01 Imm/Tot Granulo (auto) 0.2 Sodium 135 Potassium 4.3 Chloride 102 Carbon Dioxide 25 Anion Gap 8 BUN 16 Creatinine 0.8 Estimated Creat Clear 39.76 Estimated GFR 74 Glucose 97 Calcium 9.1
--- NOTE | 2023-12-09 15:29 | PC.NURSE ---
End of Shift: Patient pleasant and cooperative, A&O. VSS, afebrile. Patient has pain on her right hip when moving this shift, managed with PRN medication, see MAR. Patient got up to the chair with therapy this shift, and has spent most of the shift in the chair. Tolerating regular diet.
[2023-12-09] MEDS: ENOXAPARIN 40 MG/0.4 ML INJ SUBCUT (21:11)
--- NOTE | 2023-12-09 21:55 | PC.NURSE ---
Pt VSS. A&O. Tolerated a regular diet. Transfer with A1 with walker and gait belt. Rates pain 9/10 with movement. Up to chair this afternoon and evening. Ate 100% of dinner. Pure wick cath in place.
[2023-12-10 02:22] VITALS: BP 138/84; PULSE 63; RESP 16; TEMP 36.6; O2SAT 96
--- NOTE | 2023-12-10 06:21 | PC.NURSE ---
End of shift [id number]: Pt AxOx4, with mild confusion.?Pure wick cath in place, draining. VSS on RA. Pt reports pain 2/10 and tolerable with inactivity. Pt denies headache/nausea/CP. Continuing to monitor and assist in position change. Pt appears resting with call light in reach. ?
[2023-12-10 07:00] VITALS: BP 146/78; PULSE 75; RESP 16; TEMP 36.7; O2SAT 97
[2023-12-10] MEDS: OMEPRAZOLE 20 MG CAPSULE DR PO (08:58)
[2023-12-10] MEDS: OXYCODONE 5 MG TABLET 2.5 MG PO (09:06)
[2023-12-10] MEDS: ACETAMINOPHEN 325 MG TABLET 650 MG PO (09:06)
[2023-12-10] MEDS: BRIMONIDINE TARTRATE 0.2% OPHTH 1 DROP EYE-BOTH (09:07)
[2023-12-10] MEDS: DORZOLAMIDE HCL 2 % OPHTH DROP 1 DROP EYE-BOTH (09:07)
[2023-12-10] MEDS: ESCITALOPRAM 10 MG TABLET 20 MG PO (09:13)
[2023-12-10] MEDS: buPROPion XL 150 MG TABLET PO (09:13)
[2023-12-10] MEDS: THIAMINE 100 MG TABLET PO (09:14)
[2023-12-10] MEDS: SENNOSIDES/DOCUSATE TABLET PO (09:14)
[2023-12-10] MEDS: KETOROLAC OPHTH 0.5% 1 DROP EYE-BOTH (09:15)
[2023-12-10] MEDS: timoloL maleate 0.5 % 1 DROP EYE-BOTH (09:17)
--- NOTE | 2023-12-10 11:38 | P.DS_ITS ---
DS: Providers Provider Time Seen by Provider: 08:55 Date Seen: 12/10/23 Date of admission: 12/08/23 18:11 Primary care physician: Gisele Curran MD Admitting Clinician: Ariel Murray MD Consults: 12/08/23 18:27 Consult to Occupational Therapy [CONS] Routine Comment: Reason(s) for OT Consult:: Evaluate and Treat Any Restrictions?:: No Restrictions Consult to Physical Therapy [CONS] Routine Comment: Reason(s) for PT Consult:: Evaluate and Treat Any Restrictions?:: No Restrictions Consult to [facility] [CONS] Routine Comment: Reason for Consult:: Discharge Planning Needs 12/08/23 19:23 Consult to Physical Therapy [CONS] Routine Comment: Reason(s) for PT Consult:: Recent Falls Any Restrictions?:: Non Wt Bearing Attending Physician on discharge: Carmen Avery MD Date of Discharge: 12/10/23 DS: Diagnosis Discharge Diagnosis (1) Closed pelvic fracture: Status: Acute Problem details: - Right inferior pubic ramus fracture. - 12/09/23 spoke with Mere Petersen from ortho who agreed this is nonoperative and noted that being upright and moving will likely be more comfortable that laying still in bed or sitting in a chair. - Pain control, weight-bearing as tolerated. - Family setting up services to take patient home. Will have home health for nursing/PT/OT (2) Injury of elbow, right: Status: Acute Problem details: Possible nondisplaced fracture of the radial head. I spoke with Mere Petresen, ortho PA, who looked at film and doesn't think it's fractured. She recommended sling for comfort/prn and to f/u with ortho in 1-2 weeks if pain is not improving. (3) Balance disorder: Status: Chronic Problem details: Chronic. Saw [facility] - No records. Head CT & MRI done at [facility] on 04/03/23. (4) Memory problem: Status: Chronic Problem details: MMSE 25/30 01/05/2022 (5) Osteoporosis: Status: Acute Problem details: History of osteopenia but now meets criteria for osteoporosis with pelvic insufficiency fracture. Due to h/o hypercalcemia, will hold off on bisphosphonate, Ca, vit D. (6) Hx of hypercalcemia: Status: Acute Problem details: [place]: HCTz, Ca and Vit D stoipped. 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 She was visiting [place], [place] with her where they have a trailer with a deck. She was going down the steps from the deck when she fell. She tried to catch her fall with her right arm. After the fall she had pain in her right elbow and right pelvis. Her brought her back to [place] for evaluation in our emergency department. She normally does not walk well. She reports poor balance. She tells me she occasionally uses a cane but mostly walks without an. She has not had a fall in the past year until today. She reports she has otherwise been feeling well with no recent symptoms of illness. She was hospitalized at [facility] in [place] in March of this year. 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 At that time she was also having a COVID infection and she had fairly severe encephalopathy. The encephalopathy has resolved. She is not getting any treatment for her lymphoma. It is reportedly low-grade. She is pending a thyroid biopsy in 5 days at [facility]. 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 This does not need any further intervention currently. In March she was also diagnosed with a low pyridoxine and thiamine levels. She was given oral replacement for those and as of May, serum levels for those were above the normal range. She also had hypercalcemia and that was addressed with stopping her hydrochlorothiazide. Darcy is requiring assistance to transfer and ambulate. Pain has been well controlled. I spoke with Orthopedic surgery who recommended non operative management of pelvic fracture and noted that it is unlikely that she has an elbow fracture, but that she can use a sling for comfort and if she continues to have pain in the right elbow, she can follow up with Ortho in 1-2 weeks. Her family is aware that our recommendations are skilled PT and OT at at care home facility as she remains a high fall risk due to pain with movement. Her family is willing to provide 24/7 care at home instead of a SNF. I have ordered home care with PT and OT as well as home nursing. She is discharged today in stable condition. Time Spent with Patient Time attestation: Total time spent providing and/or coordinating discharge services: Exam Narrative: Exam Narrative: General: No acute distress. Awake, alert, oriented. Oropharynx: Clear. Mucous membranes moist. Cardiovascular: Regular rate and rhythm. Grade 1/6 systolic murmur loudest at the left lower sternal border. Respiratory: Clear to auscultation bilaterally. No wheezes or crackles. Abdomen: Bowel sounds present. Soft, nondistended, nontender. Extremities: Right arm has full ROM and able to pronate, supinate with minimal pain. Nursing Coordinator strength 5/5. No pedal edema. Const: Vital Signs, click to edit/add: Vital Signs - 24 hr 12/09/23 12:20 12/09/23 15:00 12/09/23 15:00 Temperature 98.3 F 99.3 F Pulse Rate [Left P ulse Oximeter] 63 65 65 Respiratory Rate 18 18 18 Blood Pressure [Le ft Arm] 129/79 143/76 H Pulse Oximetry 97 96 Oxygen Delivery Me thod Room Air Room Air 12/09/23 19:00 12/09/23 23:00 12/10/23 02:22 Temperature 98.6 F 98.5 F 97.9 F Pulse Rate [Left P ulse Oximeter] 78 67 63 Respiratory Rate 16 14 16 Blood Pressure [Le ft Arm] 147/73 H 121/64 138/84 Pulse Oximetry 96 96 96 Oxygen Delivery Me thod Room Air Room Air Room Air 12/10/23 07:00 12/10/23 07:00 Temperature 98.1 F Pulse Rate [Left P ulse Oximeter] 75 75 Respiratory Rate 16 16 Blood Pressure [Le ft Arm] 146/78 H Pulse Oximetry 97 Oxygen Delivery Me thod Room Air DS: Data Data Completed and Pending Completed studies during hospitalization: Ordering Physician: Brandon Steven M.D. Date of Service: 12/08/23 Procedure(s): XR elbow RT min 3V Accession Number(s): [id number] cc: Gisele Curran M.D.; Brandon Steven M.D.~ For Patients: As a result of the Century Cures Act, medical imaging exams and procedure reports are released immediately into your electronic medical record. You may view this report before your referring provider. If you have questions, please contact your health care provider. INDICATION: Fall. TECHNIQUE: Three views of the right elbow. COMPARISON: None. FINDINGS: There is elevation of the anterior fat pad indicating a joint effusion. No definite fracture is visualized. No dislocation. IMPRESSION : No fracture is visualized however the elbow joint effusion suggests an occult fracture. Dictated by Sophia Oden MD @ 12/08/2023 5:26:15 PM (Electronically Signed) Ordering Physician: Brandon Steven M.D. Date of Service: 12/08/23 Procedure(s): CT cervical spine wo con Accession Number(s): [id number] cc: Gisele Curran M.D.; Brandon Steven M.D.~ For Patients: As a result of the Cures Act, medical imaging exams and procedure reports are released immediately into your electronic medical record. You may view this report before your referring provider. If you have questions, please contact your health care provider. Indication: Fall Technique: Noncontrast axial CT of the cervical spine with coronal and sagittal reformats. Comparison: CT cervical spine 12/18/2021 Findings: The normal cervical lordosis is preserved. Trace anterolisthesis at C3-4, retrolisthesis at C5-6. Craniocervical junction appears within normal limits. No acute fracture identified. Scattered spondylosis, with low-grade neural foraminal narrowing. No significant spinal canal stenosis. No concerning findings in the paraspinal soft tissues. No pulmonary apical pneumothorax. Impression: 1. No evidence of acute fracture or traumatic malalignment in the cervical spine. Please note that all CT scans at this facility use dose modulation, iterative reconstruction, and/or weight-based dosing when appropriate to reduce radiation dose to as low as reasonably achievable. Dictated by Luz Burnett MD @ 12/08/2023 4:23:49 PM (Electronically Signed) Ordering Physician: Brandon Steven M.D. Date of Service: 12/08/23 Procedure(s): CT head/brain wo con Accession Number(s): [id number] cc: Gisele Curran M.D.; Brandon Steven M.D.~ For Patients: As a result of the Cures Act, medical imaging exams and procedure reports are released immediately into your electronic medical record. You may view this report before your referring provider. If you have questions, please contact your health care provider. INDICATION: Fall TECHNIQUE: Noncontrast axial CT of the head. Coronal and sagittal reformats. Bone and soft tissue algorithms. COMPARISON: CT head 12/18/2021 FINDINGS: The calvarium appears grossly intact. No acute intracranial hemorrhage or abnormal extra-axial fluid collection. Similar bandlike hyperdensity throughout the central armin, most suggestive of nonspecific mineralization or potentially underlying cavernous malformation as noted on remote exam. Preserved rosales-white matter differentiation. Mild generalized cerebral volume loss. Mild chronic microangiopathy white-matter hypoattenuation. Calcific intracranial atherosclerotic plaquing. Partially empty sella configuration. Stable chronic partial opacification of the right posterior ethmoid air cells. Clear mastoid air cells. Bilateral lens implants. IMPRESSION: 1. No skull fracture or acute intracranial hemorrhage identified. 2. Similar chronic bandlike hyperdensity throughout the central armin, potentially nonspecific mineralization versus cavernoma. 3. No significant interval change relative to 12/18/2021. Please note that all CT scans at this facility use dose modulation, iterative reconstruction, and/or weight-based dosing when appropriate to reduce radiation dose to as low as reasonably achievable. Dictated by Luz Burnett MD @ 12/08/2023 4:29:11 PM (Electronically Signed) Ordering Physician: Brandon Steven M.D. Date of Service: 12/08/23 Procedure(s): CT pelvis wo con Accession Number(s): [id number] cc: Gisele Curran M.D.; Brandon Steven M.D.~ For Patients: As a result of the Cures Act, medical imaging exams and procedure reports are released immediately into your electronic medical record. You may view this report before your referring provider. If you have questions, please contact your health care provider. INDICATION: FALL, RIGHT HIP PAIN. TECHNIQUE: CT pelvis without contrast. COMPARISON: None. FINDINGS: Bones: Acute nondisplaced fracture of the right inferior pubic ramus. No dislocation or other evident acute fracture. Diffuse osseous demineralization. Chronic bilateral L5 pars interarticularis fractures with a grade 1 spondylolisthesis of L5 on S1. Joints: Sipy-[id number]-[id number] bilateral hip joint arthrosis. IMPRESSION: Acute nondisplaced fracture of the right inferior pubic ramus. Please note that all CT scans at this facility use dose modulation, iterative reconstruction, and/or weight-based dosing when appropriate to reduce radiation dose to as low as reasonably achievable. Dictated by Iron Mcleod MD @ 12/08/2023 5:18:37 PM (Electronically Signed) Discharge Plan Discharge Disposition: Home, Self-Care Date of Admission: 12/08/23 18:11 Attending Provider on Discharge: Carmen Avery Primary Care Provider: Gisele Curran Condition: Stable Anticipated Discharge Date/Time: 12/10/23 12:38 Discharge Medications: New oxycodone 5 mg Tablet 2.5 mg PO Q2H MDD 12.5 PRN (Reason: Pain) Qty: 20 0RF sennosides-docusate sodium [Stool Softener-Laxative] 8.6-50 mg Tablet 1 tab PO BID Qty: 60 0RF Continued dorzolamide-timolol (PF) [Cosopt (PF)] 2-0.5 % dropperette 1 drp ophthalmic (eye) BID omeprazole 20 mg capsule,delayed release(DR/EC) 20 mg PO QDAY Qty: 90 3RF escitalopram oxalate 20 mg tablet 20 mg PO DAILY ketorolac 0.5 % drops 1 drp ophthalmic (eye) BID brimonidine 0.2 % drops 1 drp ophthalmic (eye) BID Rx Instructions: administer approximately 8 hours apart thiamine HCl (vitamin B1) 100 mg tablet 100 mg PO QDAY Qty: 90 1RF bupropion HCl 150 mg tablet extended release 24 hr 150 mg PO QAM Qty: 90 0RF Discharge Orders: Discharge Order (Routine); Ordered 12/10/23 Ordered By: Carmen Avery Additional Instructions: - If pain in your right elbow does not improve, f/u with orthopedic clinic in 1- 2 weeks. - Home health for nursing, PT, and OT. Okay for OT to start next week. Activity Level: Up with assist, Weight Bearing as Tolerated and Use Walker Discharge Diet: Regular and Other Follow Up Appointments: Gisele Curran MD [Primary Care Provider] - 12/18/23 10:45 am ([facility] for follow-up.) Forms: [facility] Info Instructions
[2023-12-10 12:09] VITALS: BP 136/67; PULSE 57; RESP 16; TEMP 36.6; O2SAT 99
--- NOTE | 2023-12-10 13:41 | PC.SOCIAL ---
Discharge planning: Pt is able to discharge home today with home care and family support. fast foods worker set-up home care through [facility]. for custodial, PT/OT and home health aide for bathing/showering. [facility] is not able to start Occupational Therapy until next week due to staffing. fast foods worker communicated this with the provider on duty and that should be fine. [facility]. will call the pt within 24 hours to set-up the intake appointment time. All the needed paperwork was sent to Ginny Reis at [facility]. via secure email at [email or web address]. Pt was thankful for the assistance. Social work to follow-up as needed.
--- NOTE | 2023-12-10 14:45 | PC.NURSE ---
Discharged: Pt pleasant, alert, oriented and vitally stable. Pt moves via 1a walker and gait belt. Pt on regular diet and tolerates well. Pain rated 9/10 with movement, PRN oxy given, pt stated improvement. Discharge information given to pt, spouse and family member. Topics including follow up, medications and weight bearing precautions. Discharged home at 1440 with spouse and family member.
== END 2023-12-10 14:40 | disposition home or self-care (01) ==
LOC: ED 17:49 → MEDSURG 18:11
PROVIDERS: Admitting Provider Family Medicine; Emergency Provider Internal Medicine; PCP Family Medicine; Visit Provider Family Medicine
DX: I10 Essential (primary) hypertension (principal)
CPT/HCPCS: 36415; 51701; 70450; 72125; 72192; 73080; 80048; 85025; 96372; 97110; 97116; 97161; 97165; 97530; 97535; 99283; 99284; 99285; A9270; G0378; J1650

== ENCOUNTER 2024-06-09 10:05 | Outpatient (CLI) | payer MEDICARE, OTHER, SELFPAY | END 2024-06-09 10:06 | disposition home or self-care (01) | LOC: NFLDREF 06-11 08:55 | PROVIDERS: PCP Family Medicine; Referring Provider Family Medicine; Visit Provider Family Medicine | DX: C83.00 Small cell B-cell lymphoma, unspecified site (principal); I12.9 Hypertensive chronic kidney disease with stage 1 through stage 4 chronic kidney disease, or unspecified chronic kidney disease; E55.9 Vitamin D deficiency, unspecified; M85.80 Other specified disorders of bone density and structure, unspecified site; E51.9 Thiamine deficiency, unspecified; E53.1 Pyridoxine deficiency; E53.8 Deficiency of other specified B group vitamins; D64.9 Anemia, unspecified; N18.9 Chronic kidney disease, unspecified; E78.5 Hyperlipidemia, unspecified; M81.0 Age-related osteoporosis without current pathological fracture | CPT/HCPCS: 80053; 80061; 82306; 82607; 82728; 84207; 84425 ==

== ENCOUNTER 2024-12-26 14:42 | Outpatient (CLI) | payer MEDICARE, OTHER, SELFPAY ==
--- NOTE | 2024-12-26 14:40 | CRLHL7_ITS ---
For Patients: As a result of the Century Cures Act, medical imaging exams and procedure reports are released immediately into your electronic medical record. You may view this report before your referring provider. If you have questions, please contact your health care provider. INDICATION: BILATERAL SCREENING MAMMOGRAM, ASYMPTOMATIC 84 Y/O FEMALE COMPARISON: 10/23/2023, 07/14/2022, 07/11/2021 TECHNIQUE: Digital mammogram in CC and MLO projections including computer-aided detection (CAD) and tomosynthesis. BREAST COMPOSITION: The breasts are heterogeneously dense, which may obscure small masses. FINDINGS: No suspicious findings. ASSESSMENT: BI-RADS 2 Benign RECOMMENDATION: Annual screening mammogram. A lay language report of this examination will be provided to the patient. Dictated by: Baljinder Watson MD @ 12/29/2024 09:54:20 (Electronically Signed)
== END 2024-12-26 14:43 | disposition home or self-care (01) ==
LOC: MAMMO 14:43
PROVIDERS: PCP Family Medicine; Visit Provider Family Medicine
DX: Z12.31 Encounter for screening mammogram for malignant neoplasm of breast (principal); R92.333 Mammographic heterogeneous density, bilateral breasts
CPT/HCPCS: 77063; 77067

== ENCOUNTER 2025-02-09 11:34 | Outpatient (CLI) | payer MEDICARE, OTHER, SELFPAY ==
--- NOTE | 2025-02-09 11:30 | CRLHL7_ITS ---
For Patients: As a result of the Century Cures Act, medical imaging exams and procedure reports are released immediately into your electronic medical record. You may view this report before your referring provider. If you have questions, please contact your health care provider. INDICATION: Nontoxic single thyroid nodule COMPARISON: 11/21/2023 TECHNIQUE: Lee scale and color Doppler images were acquired of the thyroid gland. FINDINGS: Subtle slightly hyperechoic TR 3 nodule left thyroid lobe measures 10 x 7 x 7 millimeters, TR 3, previously measuring 9 millimeters. Partially calcified nodule left thyroid lobe measures 6 x 4 x 5 millimeters, previously measuring 3 x 4 x 4 millimeters. Subtle hypoechoic nodule left thyroid lobe measures 4 x 3 x 2 millimeters, TR 4. Heterogeneous nodule right thyroid lobe measures 6 x 3 x 5 millimeters, previously measuring 2 x 5 x 6 millimeters. Solid nodule right thyroid lobe measures 8 x 7 x 7 millimeters, previously measuring 10 millimeters. TR 3. The right lobe measures 4.0 x 1.0 x 1.0 cm and the left lobe measures 4.4 x 1.5 x 1.1 cm in size. Thyroid echotexture is heterogeneous. The color Doppler images demonstrate increased vascularity. There is no evidence of cervical lymphadenopathy or parathyroid mass. IMPRESSION: Similar size and morphology of bilateral thyroid nodules. No further follow-up indicated. Dictated by Baljinder Watson MD @ 02/09/2025 3:47:01 PM (Electronically Signed)
== END 2025-02-09 11:35 | disposition home or self-care (01) ==
LOC: US 11:34
PROVIDERS: PCP Internal Medicine; Visit Provider Internal Medicine
DX: E04.1 Nontoxic single thyroid nodule (principal); E04.2 Nontoxic multinodular goiter
CPT/HCPCS: 76536